=== PATIENT | male | born 1955 | race Caucasian/White ===

== ENCOUNTER 2017-05-19 13:23 | Outpatient (RCR) | payer OTHER, MEDICARE, SELFPAY ==
[2017-05-19 14:28] LABS: Prothrombin Time (Protime)PT. 30.3 SECONDS (11.7-14.9)
== END 2017-05-19 13:45 | disposition home or self-care (01) ==
LOC: LAB 13:23
PROVIDERS: Family Provider Family Medicine Geriatric Medicine; PCP Family Medicine Geriatric Medicine; Visit Provider Internal Medicine Cardiovascular Disease
DX: Z95.2 Presence of prosthetic heart valve (principal); Z79.899 Other long term (current) drug therapy
CPT/HCPCS: 36415; 85610

== ENCOUNTER 2017-06-22 10:56 | Outpatient (RCR) | payer OTHER, MEDICARE, SELFPAY ==
[2017-06-22 11:53] LABS: International Normalized Ratio 2.5; Prothrombin Time (Protime)PT. 26.2 SECONDS (11.7-14.9)
== END 2017-06-22 11:00 ==
LOC: LAB 10:56
PROVIDERS: Family Provider Family Medicine Geriatric Medicine; PCP Family Medicine Geriatric Medicine; Visit Provider Internal Medicine Cardiovascular Disease
DX: Z95.2 Presence of prosthetic heart valve (principal); Z79.899 Other long term (current) drug therapy
CPT/HCPCS: 36415; 85610

== ENCOUNTER → 2017-06-24 14:46 | Outpatient (CLI) | payer OTHER, MEDICARE, SELFPAY ==
--- NOTE | 2017-06-24 14:49 | RAD_ITS ---
STUDY: X-RAY - SACRUM/COCCYX REASON FOR EXAM: Male, 62 years old. Pain. TECHNIQUE: 3 view(s) of the sacrum and coccyx were obtained. COMPARISON: Lumbar spine, 07/22/2017. FINDINGS: Normal bilateral sacroiliac joints. Normal visualized sacral ala and fused sacral bodies. Normal sacrococcygeal junction with a normal angulation. Normal coccygeal segments. The presacral soft tissue structures are unremarkable. RAD/Sacrum-Coccyx min 2 Views IMPRESSION: Normal x-rays of the sacrum and coccyx. Electronically Signed: Brendan Miguel DO at 15:52 EST Tel [phone], Service support ,
--- NOTE | 2017-06-24 15:07 | RAD_ITS ---
STUDY: X-RAY - LUMBAR SPINE REASON FOR EXAM: Male, 62 years old. Pain. TECHNIQUE: 3 view(s) of the lumbar spine were obtained. COMPARISON: Lumbar spine, April 06, 2016. FINDINGS: There is stable reversal of lumbar lordosis. There is a stable dextroscoliosis with convexity at L1. There is a normal alignment of the vertebrae. There is multilevel endplate spondylosis of the lumbar vertebrae. There is multi-level degenerative disc disease with multi-level disc space narrowing. Again seen is a compression deformity superior endplate of L1 which is unchanged. There is no evidence of acute fracture or loss of vertebral axial height. There is atherosclerotic calcification of the abdominal aorta without a demonstrated aneurysm. RAD/Lumbar Spine 2 or 3 Views IMPRESSION: 1. Degenerative changes and scoliosis of the lumbar spine stable when compared to prior study. 2. Stable compression deformity of the superior endplate of L1. Electronically Signed: Brendan Miguel DO at 15:54 EST Tel [phone], Service support ,
== END ==
PROVIDERS: Family Provider Family Medicine Geriatric Medicine; PCP Family Medicine Geriatric Medicine; Visit Provider Family Medicine Geriatric Medicine
DX: M54.5 Low back pain (principal); M53.3 Sacrococcygeal disorders, not elsewhere classified
CPT/HCPCS: 72100; 72220

== ENCOUNTER → 2017-06-30 11:00 | Outpatient (CLI) | payer OTHER, MEDICARE, SELFPAY ==
--- NOTE | 2017-06-30 11:08 | RAD_ITS ---
STUDY: X-RAY CHEST REASON FOR EXAM: Male, 62 years old. Cough x5 days TECHNIQUE: PA and lateral views of the chest. COMPARISON: 05/25/2017 FINDINGS: There is hyperinflation of the lungs consistent with chronic obstructive lung disease (COPD). Lungs are clear. There is no demonstrated pleural abnormality. Left chest wall pacing device. Sternal cerclage wires are present from a prior sternotomy. Artificial heart valve. Normal mediastinum and sylvia. Normal visualized pulmonary arteries. Normal visualized aortic arch and descending thoracic aorta. Normal visualized thoracic spine. Normal visualized ribs, clavicles, and shoulders. There is no demonstrated abnormality of the visualized soft tissue structures of the upper abdomen. RAD/Chest PA and Lateral IMPRESSION: COPD without acute findings Electronically Signed: Charles Zepeda DO at 13:10 EST Tel , Service support ,
== END ==
PROVIDERS: Family Provider Family Medicine Geriatric Medicine; PCP Family Medicine Geriatric Medicine; Visit Provider Family Medicine Geriatric Medicine
DX: R69 Illness, unspecified (principal)
CPT/HCPCS: 71046; 87633

== ENCOUNTER → 2017-07-13 12:58 | Outpatient (CLI) | payer OTHER, MEDICARE, SELFPAY ==
[2017-07-13 14:59] LABS: Absolute Lymphocyte Count 1.29 X10^3/ul (0.83-4.51); Absolute Neutrophil Count 9.2 X10^3/uL (2.0-7.7); Basophil# 0.01 X10^3/uL; Basophil% 0.1 % (0-1); Differential Indicated SCAN CRITERIA MET; Eosinophil# 0.08 X10^3/uL; Eosinophils% 0.6 % (0-5); Hematocrit 41.1 % (40-54); Hemoglobin 13.4 g/dl (13.0-16.5); Lymphocyte # 1.29 X10^3/ul (4.0); Lymphocyte % 10.3 % (19-41); Mean Corp Hgb Conc 32.6 g/gl (32-36); Mean Corpuscular Hgb 32.9 pg (27.0-32.0); Mean Platelet Vol. 10.7 fl (6.2-12.0); Monocyte# 1.84 X10^3/uL; Monocyte% 14.7 % (0-10); Neutrophil % 73.6 % (47-70); POSITIVE COUNT NO; POSITIVE DIFFERENTIAL YES; POSITIVE MORPHOLOGY NO; Platelet Count 186 K/mm3 (150-450); RBC Distribution Width CV 16.4 % (11.6-14.6); RBC Distribution Width SD 60.8 fl (35.1-43.9); Red Blood Count 4.07 M/mm3 (4.6-6.2); White Blood Count 12.5 K/mm3 (4.4-11.0)
[2017-07-13 15:24] LABS: ALB/GLOB Ratio 0.8 RATIO (0.9-2.4); AST(SGOT) 27 U/L (15-37); Alanine Aminotransfer ALT/SGPT 46 U/L (16-61); Alkaline Phosphatase 65 U/L (45-117); Anion Gap 5 (5-15); BUN 16 mg/dL (7-18); BUN/Creat Ratio 18.9 RATIO (10-20); Calcium,Total 8.3 mg/dL (8.5-10.1); Chloride 107 mmol/L (98-107); Creatinine, Serum 0.85 mg/dL (0.70-1.30); EST Glomerular Filtration Rate 97 mL/min (>60); Est Glom Filt Rate - Afr Amer 118 mL/min (>60); Globulin 3.6 g/dL (2.2-4.2); Glucose 88 mg/dL (74-106); Potassium 4.5 mmol/L (3.5-5.1); Protein, Total 6.6 g/dL (6.4-8.2); Sodium Level 139 mmol/L (136-145); Thyroid Stim Hormone (TSH) 1.51 uIU/mL (0.358-3.74)
[2017-07-13 16:13] LABS: Anisocytosis 1+; Macrocytosis 1+; Platelet Estimate ADEQUATE (ADEQ)
[2017-07-15 15:03] LABS: Pathologist Review Reviewed
== END ==
PROVIDERS: Family Provider Family Medicine Geriatric Medicine; PCP Family Medicine Geriatric Medicine; Visit Provider Family Medicine Geriatric Medicine
DX: R53.83 Other fatigue (principal); F52.8 Other sexual dysfunction not due to a substance or known physiological condition
CPT/HCPCS: 36415; 80053; 84403; 84443; 85025

== ENCOUNTER → 2017-08-19 09:57 | Outpatient (CLI) | payer OTHER, MEDICARE, SELFPAY ==
[2017-08-19 11:37] LABS: International Normalized Ratio 1.2; Prothrombin Time (Protime)PT. 14.9 SECONDS (11.7-14.9)
== END ==
PROVIDERS: Family Provider Family Medicine Geriatric Medicine; PCP Family Medicine Geriatric Medicine; Visit Provider Internal Medicine Cardiovascular Disease
DX: I48.91 Unspecified atrial fibrillation (principal); Z79.01 Long term (current) use of anticoagulants
CPT/HCPCS: 36415; 85610

== ENCOUNTER → 2017-09-23 10:02 | Outpatient (CLI) | payer OTHER, MEDICARE, SELFPAY ==
[2017-09-23 13:02] LABS: International Normalized Ratio 1.9; Prothrombin Time (Protime)PT. 22.1 SECONDS (11.7-14.9)
== END ==
PROVIDERS: Family Provider Family Medicine Geriatric Medicine; PCP Family Medicine Geriatric Medicine; Visit Provider Internal Medicine Cardiovascular Disease
DX: I48.91 Unspecified atrial fibrillation (principal); Z79.01 Long term (current) use of anticoagulants
CPT/HCPCS: 36415; 85610

== ENCOUNTER → 2017-10-09 08:53 | Outpatient (CLI) | payer OTHER, MEDICARE, SELFPAY ==
[2017-10-09 11:42] LABS: Absolute Lymphocyte Count 1.39 X10^3/ul (0.83-4.51); Absolute Neutrophil Count 4.1 X10^3/uL (2.0-7.7); Basophil# 0.01 X10^3/uL; Basophil% 0.2 % (0-1); Eosinophil# 0.14 X10^3/uL; Eosinophils% 2.2 % (0-5); Hematocrit 45.6 % (40-54); Hemoglobin 14.9 g/dl (13.0-16.5); Lymphocyte # 1.39 X10^3/ul (4.0); Lymphocyte % 21.8 % (19-41); Mean Corp Hgb Conc 32.7 g/gl (32-36); Mean Corpuscular Volume 97.9 fL (80-94); Mean Platelet Vol. 10.6 fl (6.2-12.0); Monocyte# 0.73 X10^3/uL; Monocyte% 11.4 % (0-10); Neutrophil # 4.09 X10^3/uL (2.7-7.7); Neutrophil % 64.1 % (47-70); POSITIVE COUNT NO; POSITIVE DIFFERENTIAL NO; POSITIVE MORPHOLOGY NO; Platelet Count 148 K/mm3 (150-450); RBC Distribution Width CV 15.6 % (11.6-14.6); RBC Distribution Width SD 55.6 fl (35.1-43.9); Red Blood Count 4.66 M/mm3 (4.6-6.2); White Blood Count 6.4 K/mm3 (4.4-11.0)
[2017-10-09 12:05] LABS: ALB/GLOB Ratio 0.9 RATIO (0.9-2.4); AST(SGOT) 29 U/L (15-37); Alanine Aminotransfer ALT/SGPT 32 U/L (16-61); Albumin, Serum 3.3 g/dL (3.2-5.0); Alkaline Phosphatase 58 U/L (45-117); Anion Gap 5 (5-15); BUN 11 mg/dL (7-18); BUN/Creat Ratio 11.8 RATIO (10-20); Calcium,Total 8.5 mg/dL (8.5-10.1); Chloride 108 mmol/L (98-107); Creatinine, Serum 0.93 mg/dL (0.70-1.30); EST Glomerular Filtration Rate 87 mL/min (>60); Est Glom Filt Rate - Afr Amer 105 mL/min (>60); Globulin 3.5 g/dL (2.2-4.2); Glucose 83 mg/dL (74-106); Potassium 4.8 mmol/L (3.5-5.1); Protein, Total 6.8 g/dL (6.4-8.2); Sodium Level 141 mmol/L (136-145); Thyroid Stim Hormone (TSH) 0.86 uIU/mL (0.358-3.74)
== END ==
PROVIDERS: Family Provider Family Medicine Geriatric Medicine; PCP Family Medicine Geriatric Medicine; Visit Provider Family Medicine Geriatric Medicine
DX: R53.83 Other fatigue (principal); F52.8 Other sexual dysfunction not due to a substance or known physiological condition
CPT/HCPCS: 36415; 80053; 84403; 84443; 85025

== ENCOUNTER → 2017-10-15 09:35 | Outpatient (CLI) | payer OTHER, MEDICARE, SELFPAY ==
[2017-10-15 10:34] LABS: Amphetamine Urine VISTA NEGATIVE (<1000 ng/mL); Barbiturate Urine VISTA NEGATIVE (< 200 ng/mL); Benzodiazepine Urine VISTA NEGATIVE (< 200 ng/mL); Cocaine Urine VISTA NEGATIVE (< 300 ng/mL); Ecstacy Urine VISTA POSITIVE (< 500 ng/mL); Methadone Urine VISTA NEGATIVE (< 300 ng/mL); PCP Urine VISTA NEGATIVE (< 25 ng/mL); THC Urine VISTA NEGATIVE (< 50 ng/mL); Vista UDS pH Range 5
== END ==
PROVIDERS: Family Provider Family Medicine Geriatric Medicine; PCP Family Medicine Geriatric Medicine; Visit Provider Anesthesiology Pain Medicine
DX: F11.20 Opioid dependence, uncomplicated (principal)
CPT/HCPCS: 80307

== ENCOUNTER → 2018-01-21 09:05 | Outpatient (CLI) | payer OTHER, MEDICARE, SELFPAY ==
[2018-01-21 13:26] LABS: Absolute Lymphocyte Count 1.55 X10^3/ul (0.83-4.51); Basophil# 0.02 X10^3/uL; Basophil% 0.3 % (0-1); Eosinophil# 0.15 X10^3/uL; Hematocrit 41.7 % (40-54); Hemoglobin 14.1 g/dl (13.0-16.5); Lymphocyte # 1.55 X10^3/ul (4.0); Lymphocyte % 20.3 % (19-41); Mean Corp Hgb Conc 33.8 g/gl (32-36); Mean Corpuscular Hgb 31.6 pg (27.0-32.0); Mean Corpuscular Volume 93.5 fL (80-94); Mean Platelet Vol. 10.5 fl (6.2-12.0); Monocyte# 0.93 X10^3/uL; Monocyte% 12.2 % (0-10); Neutrophil # 4.96 X10^3/uL (2.7-7.7); Neutrophil % 64.7 % (47-70); Platelet Count 184 K/mm3 (150-450); RBC Distribution Width CV 13.4 % (11.6-14.6); RBC Distribution Width SD 44.3 fl (35.1-43.9); Red Blood Count 4.46 M/mm3 (4.6-6.2); White Blood Count 7.7 K/mm3 (4.4-11.0)
[2018-01-21 13:28] LABS: POSITIVE COUNT NO; POSITIVE DIFFERENTIAL NO; POSITIVE MORPHOLOGY NO
[2018-01-21 13:38] LABS: International Normalized Ratio 1.1; Prothrombin Time (Protime)PT. 14.2 SECONDS (11.7-14.9)
[2018-01-21 14:01] LABS: AST(SGOT) 25 U/L (15-37); Alanine Aminotransfer ALT/SGPT 35 U/L (16-61); Albumin, Serum 3.7 g/dL (3.2-5.0); Alkaline Phosphatase 69 U/L (45-117); Anion Gap 10 (5-15); BUN 18 mg/dL (7-18); Calcium,Total 8.9 mg/dL (8.5-10.1); Chloride 104 mmol/L (98-107); EST Glomerular Filtration Rate 80 mL/min (>60); Est Glom Filt Rate - Afr Amer 97 mL/min (>60); Globulin 3.7 g/dL (2.2-4.2); Glucose 84 mg/dL (74-106); Potassium 4.4 mmol/L (3.5-5.1); Protein, Total 7.4 g/dL (6.4-8.2); Sodium Level 139 mmol/L (136-145)
[2018-01-22 11:29] LABS: Hep C Antibodies 0.3 s/co ratio (0.0-0.9)
== END ==
PROVIDERS: Internal Medicine Cardiovascular Disease; Family Provider Family Medicine Geriatric Medicine; PCP Family Medicine Geriatric Medicine; Visit Provider Family Medicine Geriatric Medicine
DX: I48.0 Paroxysmal atrial fibrillation (principal); R53.83 Other fatigue; F52.8 Other sexual dysfunction not due to a substance or known physiological condition; Z12.5 Encounter for screening for malignant neoplasm of prostate; Z13.89 Encounter for screening for other disorder; Z79.01 Long term (current) use of anticoagulants
CPT/HCPCS: 36415; 80053; 84153; 84403; 84443; 85025; 85610; 86803; G0103

== ENCOUNTER → 2018-01-26 11:02 | Outpatient (CLI) | payer OTHER, MEDICARE, SELFPAY ==
[2018-01-26 12:31] LABS: International Normalized Ratio 1.2
== END ==
PROVIDERS: Family Provider Family Medicine Geriatric Medicine; PCP Family Medicine Geriatric Medicine; Visit Provider Internal Medicine Cardiovascular Disease
DX: I48.91 Unspecified atrial fibrillation (principal); Z79.01 Long term (current) use of anticoagulants
CPT/HCPCS: 36415; 85610

== ENCOUNTER → 2018-03-11 11:37 | Outpatient (CLI) | payer OTHER, MEDICARE, SELFPAY ==
[2018-03-11 14:00] LABS: International Normalized Ratio 1.5
== END ==
PROVIDERS: Family Provider Family Medicine Geriatric Medicine; PCP Family Medicine Geriatric Medicine; Visit Provider Internal Medicine Cardiovascular Disease
DX: I48.91 Unspecified atrial fibrillation (principal); Z79.01 Long term (current) use of anticoagulants
CPT/HCPCS: 36415; 85610

== ENCOUNTER → 2018-03-30 14:44 | Outpatient (CLI) | payer OTHER, MEDICARE, SELFPAY ==
[2018-03-30 15:54] LABS: International Normalized Ratio 2.7; Prothrombin Time (Protime)PT. 28.6 SECONDS (11.7-14.9)
[2018-04-05 12:07] LABS: Lyme IgG P18 Ab Absent (.); Lyme IgG P23 Ab Absent (.); Lyme IgG P28 Ab Absent (.); Lyme IgG P30 Ab Absent (.); Lyme IgG P39 Ab Absent (.); Lyme IgG P41 Ab Absent (.); Lyme IgG P45 Ab Absent (.); Lyme IgG P58 Ab Absent (.); Lyme IgG P66 Ab Absent (.); Lyme IgG P93 Ab Absent (.); Lyme IgM P23 Ab Absent (.); Lyme IgM P39 Ab Absent (.); Lyme IgM P41 Ab Absent (.)
[2018-04-05 13:48] LABS: Lyme IgG WB Interpretation Negative (.); Lyme IgM WB Interpretation Negative (.)
== END ==
PROVIDERS: Family Provider Family Medicine Geriatric Medicine; PCP Family Medicine Geriatric Medicine; Visit Provider Family Medicine Geriatric Medicine
DX: I48.91 Unspecified atrial fibrillation (principal); Z79.01 Long term (current) use of anticoagulants
CPT/HCPCS: 36415; 85610; 86617

== ENCOUNTER 2018-05-06 09:23 | Outpatient (RCR) | payer OTHER, MEDICARE, SELFPAY ==
[2018-03-11 09:07] VITALS: BMI 22.6
[2018-05-06 11:43] LABS: International Normalized Ratio 2.2; Prothrombin Time (Protime)PT. 24.5 SECONDS (11.7-14.9)
== END 2018-05-06 10:00 | disposition home or self-care (01) ==
LOC: LAB 09:23
PROVIDERS: Family Provider Family Medicine Geriatric Medicine; PCP Family Medicine Geriatric Medicine; Referring Provider Internal Medicine Cardiovascular Disease; Visit Provider Internal Medicine Cardiovascular Disease
DX: I48.91 Unspecified atrial fibrillation (principal); Z79.01 Long term (current) use of anticoagulants
CPT/HCPCS: 36415; 85610

== ENCOUNTER 2018-06-21 09:53 | Outpatient (RCR) | payer OTHER, MEDICARE, SELFPAY ==
[2018-03-11 09:07] VITALS: BMI 22.6
[2018-06-21 10:31] LABS: International Normalized Ratio 2.6; Prothrombin Time (Protime)PT. 27.7 SECONDS (11.7-14.9)
== END 2018-07-15 14:23 | disposition home or self-care (01) ==
LOC: LAB 09:53
PROVIDERS: Family Provider Family Medicine Geriatric Medicine; PCP Family Medicine Geriatric Medicine; Referring Provider Internal Medicine Cardiovascular Disease; Visit Provider Internal Medicine Cardiovascular Disease
DX: I48.91 Unspecified atrial fibrillation (principal); Z79.01 Long term (current) use of anticoagulants
CPT/HCPCS: 36415; 85610

== ENCOUNTER → 2018-07-14 10:37 | Outpatient (CLI) | payer OTHER, MEDICARE, SELFPAY ==
[2018-03-11 09:07] VITALS: BMI 22.6
[2018-07-14 13:11] LABS: Absolute Lymphocyte Count 1.54 X10^3/ul (0.83-4.51); Absolute Neutrophil Count 5.7 X10^3/uL (2.0-7.7); Basophil# 0.02 X10^3/uL; Basophil% 0.2 % (0-1); Eosinophil# 0.16 X10^3/uL; Hematocrit 46.1 % (40-54); Hemoglobin 15.7 g/dl (13.0-16.5); Lymphocyte # 1.54 X10^3/ul (4.0); Lymphocyte % 18.8 % (19-41); Mean Corp Hgb Conc 34.1 g/gl (32-36); Mean Corpuscular Hgb 30.3 pg (27.0-32.0); Mean Platelet Vol. 10.5 fl (6.2-12.0); Monocyte# 0.75 X10^3/uL; Monocyte% 9.1 % (0-10); Neutrophil # 5.68 X10^3/uL (2.7-7.7); Neutrophil % 69.3 % (47-70); POSITIVE COUNT NO; POSITIVE DIFFERENTIAL NO; POSITIVE MORPHOLOGY NO; Platelet Count 176 K/mm3 (150-450); RBC Distribution Width CV 14.9 % (11.6-14.6); RBC Distribution Width SD 49.3 fl (35.1-43.9); Red Blood Count 5.18 M/mm3 (4.6-6.2); White Blood Count 8.2 K/mm3 (4.4-11.0)
[2018-07-14 13:24] LABS: Anion Gap 8 (5-15); BUN 12 mg/dL (7-18); CRP 8.34 mg/L (0.0-3.0); Calcium,Total 8.8 mg/dL (8.5-10.1); Chloride 104 mmol/L (98-107); Creatinine, Serum 1.09 mg/dL (0.70-1.30); EST Glomerular Filtration Rate 73 mL/min (>60); Est Glom Filt Rate - Afr Amer 88 mL/min (>60); Glucose 94 mg/dL (74-106); Potassium 4.5 mmol/L (3.5-5.1); Sodium Level 140 mmol/L (136-145)
[2018-07-14 19:37] LABS: Erythrocyte Sedimentation Rate 8 mm/hr (0-20)
== END ==
PROVIDERS: Family Provider Family Medicine Geriatric Medicine; PCP Family Medicine Geriatric Medicine; Visit Provider Family Medicine Geriatric Medicine
DX: R60.9 Edema, unspecified (principal)
CPT/HCPCS: 36415; 80048; 85025; 85652; 86140

== ENCOUNTER → 2018-07-16 09:28 | Outpatient (CLI) | payer OTHER, MEDICARE, SELFPAY ==
[2018-07-16 12:58] LABS: M R Staph aureus DNA By PCR Negative (Negative); Probe Check PASS; Specimen Processing Control PASS; Staph aureus DNA By PCR NEGATIVE (Negative)
== END ==
PROVIDERS: Family Provider Family Medicine Geriatric Medicine; PCP Family Medicine Geriatric Medicine; Visit Provider Family Medicine Geriatric Medicine
DX: L03.119 Cellulitis of unspecified part of limb (principal); B95.62 Methicillin resistant Staphylococcus aureus infection as the cause of diseases classified elsewhere
CPT/HCPCS: 87070; 87205; 87640

== ENCOUNTER → 2018-07-22 09:33 | Outpatient (CLI) | payer OTHER, MEDICARE, SELFPAY ==
[2018-03-11 09:07] VITALS: BMI 22.6
[2018-07-22 10:45] LABS: Amphetamine Urine VISTA NEGATIVE (<1000 ng/mL); Barbiturate Urine VISTA NEGATIVE (< 200 ng/mL); Benzodiazepine Urine VISTA NEGATIVE (< 200 ng/mL); Cocaine Urine VISTA NEGATIVE (< 300 ng/mL); Ecstacy Urine VISTA POSITIVE (< 500 ng/mL); Methadone Urine VISTA NEGATIVE (< 300 ng/mL); PCP Urine VISTA NEGATIVE (< 25 ng/mL); THC Urine VISTA NEGATIVE (< 50 ng/mL); Vista UDS pH Range 5
== END ==
PROVIDERS: Family Provider Family Medicine Geriatric Medicine; PCP Family Medicine Geriatric Medicine; Referring Provider Anesthesiology Pain Medicine; Visit Provider Anesthesiology Pain Medicine
DX: F11.20 Opioid dependence, uncomplicated (principal)
CPT/HCPCS: 80307

== ENCOUNTER → 2018-07-30 08:34 | Outpatient (CLI) | payer OTHER, MEDICARE, SELFPAY ==
[2018-07-30 12:30] LABS: Absolute Neutrophil Count 4.6 X10^3/uL (2.0-7.7); Basophil# 0.01 X10^3/uL; Basophil% 0.1 % (0-1); Eosinophil# 0.18 X10^3/uL; Eosinophils% 2.3 % (0-5); Hematocrit 46.7 % (40-54); Hemoglobin 15.1 g/dl (13.0-16.5); Lymphocyte % 24.1 % (19-41); Mean Corp Hgb Conc 32.3 g/gl (32-36); Mean Corpuscular Hgb 28.5 pg (27.0-32.0); Mean Corpuscular Volume 88.3 fL (80-94); Mean Platelet Vol. 10.5 fl (6.2-12.0); Monocyte# 1.21 X10^3/uL; Monocyte% 15.3 % (0-10); Neutrophil # 4.55 X10^3/uL (2.7-7.7); Neutrophil % 57.6 % (47-70); Platelet Count 203 K/mm3 (150-450); RBC Distribution Width CV 15.2 % (11.6-14.6); RBC Distribution Width SD 48.4 fl (35.1-43.9); Red Blood Count 5.29 M/mm3 (4.6-6.2); White Blood Count 7.9 K/mm3 (4.4-11.0)
[2018-07-30 12:33] LABS: International Normalized Ratio 1.7; Prothrombin Time (Protime)PT. 19.8 SECONDS (11.7-14.9)
[2018-07-30 12:42] LABS: POSITIVE COUNT NO; POSITIVE DIFFERENTIAL NO; POSITIVE MORPHOLOGY NO
[2018-07-30 12:54] LABS: AST(SGOT) 30 U/L (15-37); Alanine Aminotransfer ALT/SGPT 39 U/L (16-61); Albumin, Serum 3.6 g/dL (3.2-5.0); Alkaline Phosphatase 57 U/L (45-117); Anion Gap 5 (5-15); BUN 12 mg/dL (7-18); BUN/Creat Ratio 10.3 RATIO (10-20); Calcium,Total 8.3 mg/dL (8.5-10.1); Chloride 104 mmol/L (98-107); Creatinine, Serum 1.16 mg/dL (0.70-1.30); EST Glomerular Filtration Rate 68 mL/min (>60); Est Glom Filt Rate - Afr Amer 82 mL/min (>60); Globulin 3.6 g/dL (2.2-4.2); Glucose 89 mg/dL (74-106); Potassium 3.9 mmol/L (3.5-5.1); Protein, Total 7.2 g/dL (6.4-8.2); Sodium Level 139 mmol/L (136-145); Thyroid Stim Hormone (TSH) 7.77 uIU/mL (0.358-3.74)
== END ==
PROVIDERS: Family Provider Family Medicine Geriatric Medicine; PCP Family Medicine Geriatric Medicine; Visit Provider Family Medicine Geriatric Medicine
DX: R53.83 Other fatigue (principal); F52.8 Other sexual dysfunction not due to a substance or known physiological condition; I48.91 Unspecified atrial fibrillation; Z79.01 Long term (current) use of anticoagulants
CPT/HCPCS: 36415; 80053; 84403; 84443; 85025; 85610

== ENCOUNTER 2018-08-06 08:51 | Outpatient (RCR) | payer OTHER, MEDICARE, SELFPAY ==
[2018-03-11 09:07] VITALS: BMI 22.6
[2018-08-06 09:43] LABS: International Normalized Ratio 2.7; Prothrombin Time (Protime)PT. 28.4 SECONDS (11.7-14.9)
== END 2018-08-06 09:51 | disposition home or self-care (01) ==
LOC: LAB 08:51
PROVIDERS: Family Provider Family Medicine Geriatric Medicine; PCP Family Medicine Geriatric Medicine; Referring Provider Internal Medicine Cardiovascular Disease; Visit Provider Internal Medicine Cardiovascular Disease
DX: I48.91 Unspecified atrial fibrillation (principal); Z79.01 Long term (current) use of anticoagulants
CPT/HCPCS: 36415; 85610

== ENCOUNTER 2018-08-31 07:58 | Emergency (ER) | payer OTHER, MEDICARE, SELFPAY ==
[2018-08-31 07:59] VITALS: BP 144/69; PULSE 70; RESP 18; TEMP 36.6; O2SAT 95; BMI 23.7
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
[2018-08-31] MEDS: Ondansetron 4 MG/2 ML Vial IV (08:39)
[2018-08-31] MEDS: 0.9% Normal Saline 1,000 ML 150 ML IV (08:40)
[2018-08-31] MEDS: HYDROmorphone 1 MG/ML Syringe IV (08:40)
[2018-08-31 08:49] LABS: Absolute Lymphocyte Count 1.93 X10^3/ul (0.83-4.51); Absolute Neutrophil Count 4.6 X10^3/uL (2.0-7.7); Basophil# 0.03 X10^3/uL; Basophil% 0.4 % (0-1); Eosinophil# 0.23 X10^3/uL; Hematocrit 46.4 % (40-54); Lymphocyte # 1.93 X10^3/ul (4.0); Lymphocyte % 25.3 % (19-41); Mean Corp Hgb Conc 34.5 g/gl (32-36); Mean Corpuscular Hgb 30.4 pg (27.0-32.0); Mean Platelet Vol. 9.6 fl (6.2-12.0); Monocyte# 0.81 X10^3/uL; Monocyte% 10.6 % (0-10); Neutrophil # 4.61 X10^3/uL (2.7-7.7); Neutrophil % 60.3 % (47-70); Platelet Count 149 K/mm3 (150-450); RBC Distribution Width CV 15.3 % (11.6-14.6); RBC Distribution Width SD 49.2 fl (35.1-43.9); Red Blood Count 5.27 M/mm3 (4.6-6.2); White Blood Count 7.6 K/mm3 (4.4-11.0)
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
[2018-08-31 08:57] LABS: International Normalized Ratio 3.4; Prothrombin Time (Protime)PT. 34.4 SECONDS (11.7-14.9)
[2018-08-31 09:00] LABS: POSITIVE COUNT NO; POSITIVE DIFFERENTIAL NO; POSITIVE MORPHOLOGY NO
[2018-08-31 09:03] LABS: Anion Gap 3 (5-15); BUN 13 mg/dL (7-18); BUN/Creat Ratio 11.7 RATIO (10-20); Calcium,Total 8.5 mg/dL (8.5-10.1); Chloride 108 mmol/L (98-107); Creatinine, Serum 1.11 mg/dL (0.70-1.30); EST Glomerular Filtration Rate 71 mL/min (>60); Est Glom Filt Rate - Afr Amer 86 mL/min (>60); Estimated Creatinine Clearance 72.55 ml/min; Glucose 90 mg/dL (74-106); Potassium 4.1 mmol/L (3.5-5.1); Sodium Level 139 mmol/L (136-145)
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
[2018-08-31 11:03] VITALS: BP 128/72; PULSE 66; RESP 20
== END 2018-08-31 11:04 | disposition home or self-care (01) ==
PROVIDERS: Emergency Provider Emergency Medicine; Family Provider Family Medicine Geriatric Medicine; PCP Family Medicine Geriatric Medicine
DX: S16.1XXA Strain of muscle, fascia and tendon at neck level, initial encounter (principal); S20.211A Contusion of right front wall of thorax, initial encounter; S43.401A Unspecified sprain of right shoulder joint, initial encounter; V43.62XA Car passenger injured in collision with other type car in traffic accident, initial encounter; Y93.9 Activity, unspecified; Y92.410 Unspecified street and highway as the place of occurrence of the external cause; Y99.9 Unspecified external cause status; I27.20 Pulmonary hypertension, unspecified; I48.91 Unspecified atrial fibrillation; E03.9 Hypothyroidism, unspecified; Z79.01 Long term (current) use of anticoagulants; Z72.0 Tobacco use; D68.9 Coagulation defect, unspecified
CPT/HCPCS: 70450; 71046; 72125; 73030; 74176; 80048; 85025; 85610; 96361; 96374; 96375; 99285; J7030; J2405

== ENCOUNTER → 2018-09-16 10:14 | Outpatient (CLI) | payer OTHER, MEDICARE, SELFPAY ==
[2018-09-08 08:44] VITALS: BMI 24.3
[2018-09-16 13:06] LABS: International Normalized Ratio 1.8; Prothrombin Time (Protime)PT. 20.3 SECONDS (11.7-14.9)
[2018-09-22 07:12] LABS: Lyme IgG P18 Ab Absent (.); Lyme IgG P23 Ab Absent (.); Lyme IgG P28 Ab Absent (.); Lyme IgG P30 Ab Absent (.); Lyme IgG P39 Ab Absent (.); Lyme IgG P41 Ab Absent (.); Lyme IgG P45 Ab Absent (.); Lyme IgG P58 Ab Absent (.); Lyme IgG P66 Ab Absent (.); Lyme IgG P93 Ab Absent (.); Lyme IgM P23 Ab Absent (.); Lyme IgM P39 Ab Absent (.); Lyme IgM P41 Ab Absent (.)
[2018-09-22 12:03] LABS: Lyme IgG WB Interpretation Negative (.); Lyme IgM WB Interpretation Negative (.)
== END ==
PROVIDERS: Family Provider Family Medicine Geriatric Medicine; PCP Family Medicine Geriatric Medicine; Visit Provider Family Medicine Geriatric Medicine
DX: I48.91 Unspecified atrial fibrillation (principal); Z79.01 Long term (current) use of anticoagulants; A69.20 Lyme disease, unspecified
CPT/HCPCS: 36415; 85610; 86617

== ENCOUNTER 2018-10-07 08:31 | Outpatient (RCR) | payer OTHER, MEDICARE, SELFPAY ==
[2018-03-11 09:07] VITALS: BMI 22.6
[2018-09-08 08:44] VITALS: BMI 24.3
[2018-09-23 10:21] LABS: International Normalized Ratio 2.8; Prothrombin Time (Protime)PT. 29.4 SECONDS (11.7-14.9)
[2018-10-07 10:21] LABS: Prothrombin Time (Protime)PT. 40.2 SECONDS (11.7-14.9)
[2018-10-07 10:24] LABS: International Normalized Ratio 4.1
== END 2018-10-15 14:00 | disposition home or self-care (01) ==
LOC: LAB 08:31
PROVIDERS: Family Provider Family Medicine Geriatric Medicine; PCP Family Medicine Geriatric Medicine; Referring Provider Internal Medicine Cardiovascular Disease; Visit Provider Internal Medicine Cardiovascular Disease
DX: I48.91 Unspecified atrial fibrillation (principal); Z79.01 Long term (current) use of anticoagulants
CPT/HCPCS: 36415; 85610

== ENCOUNTER → 2018-10-14 10:58 | Outpatient (CLI) | payer OTHER, MEDICARE, SELFPAY ==
[2018-09-08 08:44] VITALS: BMI 24.3
[2018-10-14 12:37] LABS: International Normalized Ratio 2.6; Prothrombin Time (Protime)PT. 28.3 SECONDS (11.7-14.9)
== END ==
PROVIDERS: Family Provider Family Medicine Geriatric Medicine; PCP Family Medicine Geriatric Medicine; Visit Provider Internal Medicine Cardiovascular Disease
DX: I48.91 Unspecified atrial fibrillation (principal); Z79.01 Long term (current) use of anticoagulants
CPT/HCPCS: 36415; 85610

== ENCOUNTER 2018-11-10 08:30 | Outpatient (RCR) | payer OTHER, MEDICARE, SELFPAY ==
[2018-09-08 08:44] VITALS: BMI 24.3
[2018-11-10 09:29] LABS: International Normalized Ratio 3.3; Prothrombin Time (Protime)PT. 33.5 SECONDS (11.7-14.9)
== END 2018-11-10 09:00 | disposition home or self-care (01) ==
LOC: LAB 08:30
PROVIDERS: Family Provider Family Medicine Geriatric Medicine; PCP Family Medicine Geriatric Medicine; Referring Provider Internal Medicine Cardiovascular Disease; Visit Provider Internal Medicine Cardiovascular Disease
DX: I48.91 Unspecified atrial fibrillation (principal); Z79.01 Long term (current) use of anticoagulants
CPT/HCPCS: 36415; 85610

== ENCOUNTER → 2018-11-23 09:44 | Outpatient (CLI) | payer OTHER, MEDICARE, SELFPAY ==
[2018-09-08 08:44] VITALS: BMI 24.3
== END ==
PROVIDERS: Family Provider Family Medicine Geriatric Medicine; PCP Family Medicine Geriatric Medicine; Referring Provider Family Medicine Geriatric Medicine; Visit Provider Family Medicine Geriatric Medicine
DX: R50.9 Fever, unspecified (principal)
CPT/HCPCS: 87633

== ENCOUNTER 2018-11-25 06:30 | Outpatient (RCR) | payer OTHER, MEDICARE, SELFPAY ==
[2018-09-08 08:44] VITALS: BMI 24.3
[2018-11-25 07:17] LABS: Prothrombin Time (Protime)PT. 22.9 SECONDS (11.7-14.9)
== END 2018-12-15 06:16 | disposition home or self-care (01) ==
LOC: LAB 06:30
PROVIDERS: Family Provider Family Medicine Geriatric Medicine; PCP Family Medicine Geriatric Medicine; Referring Provider Internal Medicine Cardiovascular Disease; Visit Provider Internal Medicine Cardiovascular Disease
DX: I48.91 Unspecified atrial fibrillation (principal); Z79.01 Long term (current) use of anticoagulants
CPT/HCPCS: 36415; 85610

== ENCOUNTER → 2018-11-29 12:23 | Outpatient (CLI) | payer OTHER, MEDICARE, SELFPAY ==
[2018-09-08 08:44] VITALS: BMI 24.3
--- NOTE | 2018-11-29 12:25 | RAD_ITS ---
STUDY: X-RAY CHEST REASON FOR EXAM: Male, 63 years old. One-week history of chest congestion. TECHNIQUE: PA and lateral views of the chest. COMPARISON: Comparison is made with prior study dated August 31, 2018. FINDINGS: Hyperinflation. Stable mild scarring at the lung bases. There is no demonstrated pleural abnormality. Sternal cerclage wires are present from a prior sternotomy. The patient is status post mitral valve and aortic valve replacements. A left-sided dual-chamber pacemaker is seen. Normal mediastinum and sylvia. There is prominence of the pulmonary hilar arteries without peripheral pulmonary vascular congestion, suggesting pulmonary hypertension. There is atherosclerotic calcification of the aortic arch with tortuosity. Normal visualized thoracic spine. Normal visualized ribs, clavicles, and shoulders. There is no demonstrated abnormality of the visualized soft tissue structures of the upper abdomen. RAD/Chest PA and Lateral IMPRESSION: Hyperinflation. No acute abnormality is seen. Electronically Signed: Damien Medellin, at 8:08 EDT , Service support ,
== END ==
PROVIDERS: Family Provider Family Medicine Geriatric Medicine; PCP Family Medicine Geriatric Medicine; Referring Provider Family Medicine Geriatric Medicine; Visit Provider Family Medicine Geriatric Medicine
DX: R09.89 Other specified symptoms and signs involving the circulatory and respiratory systems (principal)
CPT/HCPCS: 71046

== ENCOUNTER → 2018-12-20 09:26 | Outpatient (CLI) | payer OTHER, MEDICARE, SELFPAY ==
[2018-09-08 08:44] VITALS: BMI 24.3
[2018-12-20 12:12] LABS: International Normalized Ratio 1.1; Prothrombin Time (Protime)PT. 13.7 SECONDS (11.7-14.9)
== END ==
PROVIDERS: Family Provider Family Medicine Geriatric Medicine; PCP Family Medicine Geriatric Medicine; Referring Provider Internal Medicine Cardiovascular Disease; Visit Provider Internal Medicine Cardiovascular Disease
DX: I48.91 Unspecified atrial fibrillation (principal); Z79.01 Long term (current) use of anticoagulants
CPT/HCPCS: 36415; 85610

== ENCOUNTER 2019-01-12 10:11 | Outpatient (RCR) | payer OTHER, MEDICARE, SELFPAY ==
[2018-09-08 08:44] VITALS: BMI 24.3
[2018-12-16 10:59] LABS: International Normalized Ratio 5.1; Prothrombin Time (Protime)PT. 47.5 SECONDS (11.7-14.9)
[2018-12-28 08:57] LABS: International Normalized Ratio 2.1; Prothrombin Time (Protime)PT. 23.4 SECONDS (11.7-14.9)
[2019-01-12 11:15] LABS: International Normalized Ratio 2.2
== END 2019-01-12 12:00 | disposition home or self-care (01) ==
LOC: LAB 10:11
PROVIDERS: Family Provider Family Medicine Geriatric Medicine; PCP Family Medicine Geriatric Medicine; Referring Provider Internal Medicine Cardiovascular Disease; Visit Provider Internal Medicine Cardiovascular Disease
DX: I48.91 Unspecified atrial fibrillation (principal); Z79.01 Long term (current) use of anticoagulants
CPT/HCPCS: 36415; 85610

== ENCOUNTER → 2019-02-03 08:43 | Outpatient (CLI) | payer OTHER, MEDICARE, SELFPAY ==
[2018-09-08 08:44] VITALS: BMI 24.3
[2019-02-03 11:19] LABS: Absolute Neutrophil Count 5.7 X10^3/uL (2.0-7.7); Basophil# 0.06 X10^3/uL; Basophil% 0.7 % (0-1); Eosinophil# 0.16 X10^3/uL; Eosinophils% 1.9 % (0-5); Hematocrit 47.7 % (40-54); Hemoglobin 16.2 g/dL (13.0-16.5); Lymphocyte % 21.2 % (19-41); Mean Corpuscular Hgb 32.4 pg (27.0-32.0); Mean Corpuscular Volume 95.4 fL (80-94); Mean Platelet Vol. 10.2 fl (6.2-12.0); Monocyte# 0.71 X10^3/uL; Monocyte% 8.4 % (0-10); NRBC Flagged by Analyzer 0 % (0-5); Neutrophil # 5.69 X10^3/uL (2.7-7.7); Neutrophil % 66.9 % (47-70); Platelet Count 163 K/mm3 (150-450); RBC Distribution Width CV 14.6 % (11.6-14.6); RBC Distribution Width SD 51.2 fl (35.1-43.9); White Blood Count 8.5 K/mm3 (4.4-11.0)
[2019-02-03 11:28] LABS: International Normalized Ratio 2.2; Prothrombin Time (Protime)PT. 24.5 SECONDS (11.7-14.9)
[2019-02-03 11:39] LABS: ALB/GLOB Ratio 0.9 RATIO (0.9-2.4); AST(SGOT) 26 U/L (15-37); Alanine Aminotransfer ALT/SGPT 34 U/L (16-61); Albumin, Serum 3.6 g/dL (3.2-5.0); Alkaline Phosphatase 56 U/L (45-117); BUN 14 mg/dL (7-18); BUN/Creat Ratio 13.6 RATIO (10-20); Calcium,Total 8.9 mg/dL (8.5-10.1); Chloride 103 mmol/L (98-107); Creatinine, Serum 1.03 mg/dL (0.70-1.30); EST Glomerular Filtration Rate 77 mL/min (>60); Est Glom Filt Rate - Afr Amer 94 mL/min (>60); Globulin 3.8 g/dL (2.2-4.2); Glucose 91 mg/dL (74-106); Potassium 3.7 mmol/L (3.5-5.1); Protein, Total 7.4 g/dL (6.4-8.2); Sodium Level 139 mmol/L (136-145)
[2019-02-03 11:40] LABS: Anion Gap 5 (5-15); PSA,Total - Annual Screen 0.37 ng/mL (0.00-4.00); Thyroid Stim Hormone (TSH) 3.51 uIU/mL (0.358-3.74)
[2019-02-04 10:30] LABS: Vitamin D,25 Hydroxy 54.7 ng/mL (29.95-100.01)
== END ==
PROVIDERS: Family Provider Family Medicine Geriatric Medicine; PCP Family Medicine Geriatric Medicine; Visit Provider Family Medicine Geriatric Medicine
DX: R53.83 Other fatigue (principal); E55.9 Vitamin D deficiency, unspecified; F52.8 Other sexual dysfunction not due to a substance or known physiological condition; Z12.5 Encounter for screening for malignant neoplasm of prostate
CPT/HCPCS: 36415; 80053; 82306; 84153; 84403; 84443; 85025; 85610; G0103

== ENCOUNTER 2019-04-11 08:45 | Outpatient (RCR) | payer OTHER, MEDICARE, SELFPAY ==
[2018-09-08 08:44] VITALS: BMI 24.3
[2019-03-21 09:29] LABS: International Normalized Ratio 1.4; Prothrombin Time (Protime)PT. 16.9 SECONDS (11.7-14.9)
[2019-03-31 09:07] LABS: International Normalized Ratio 1.8; Prothrombin Time (Protime)PT. 21.2 SECONDS (11.7-14.9)
[2019-04-11 09:13] LABS: International Normalized Ratio 3.1; Prothrombin Time (Protime)PT. 31.8 SECONDS (11.7-14.9)
== END 2019-04-11 18:00 | disposition home or self-care (01) ==
LOC: LAB 08:45
PROVIDERS: Family Provider Family Medicine Geriatric Medicine; PCP Family Medicine Geriatric Medicine; Referring Provider Internal Medicine Cardiovascular Disease; Visit Provider Internal Medicine Cardiovascular Disease
DX: I48.91 Unspecified atrial fibrillation (principal); Z79.01 Long term (current) use of anticoagulants
CPT/HCPCS: 36415; 85610

== ENCOUNTER 2019-05-13 07:50 | Outpatient (RCR) | payer OTHER, MEDICARE, SELFPAY ==
[2018-09-08 08:44] VITALS: BMI 24.3
[2019-04-18 08:31] VITALS: BMI 23.0
[2019-04-29 10:42] LABS: Prothrombin Time (Protime)PT. 35.5 SECONDS (11.7-14.9)
[2019-04-29 10:52] LABS: International Normalized Ratio 3.5
[2019-05-13 09:11] LABS: International Normalized Ratio 2.1; Prothrombin Time (Protime)PT. 23.6 SECONDS (11.7-14.9)
== END 2019-05-13 18:00 | disposition home or self-care (01) ==
LOC: LAB 07:50
PROVIDERS: Family Provider Family Medicine Geriatric Medicine; PCP Family Medicine Geriatric Medicine; Referring Provider Internal Medicine Cardiovascular Disease; Visit Provider Internal Medicine Cardiovascular Disease
DX: I48.91 Unspecified atrial fibrillation (principal); Z79.01 Long term (current) use of anticoagulants
CPT/HCPCS: 36415; 85610

== ENCOUNTER 2019-06-03 08:20 | Outpatient (RCR) | payer OTHER, MEDICARE, SELFPAY ==
[2019-04-18 08:31] VITALS: BMI 23.0
[2019-06-03 08:58] LABS: International Normalized Ratio 2.8; Prothrombin Time (Protime)PT. 29.9 SECONDS (11.7-14.9)
== END 2019-06-03 18:00 | disposition home or self-care (01) ==
LOC: LAB 08:20
PROVIDERS: Family Provider Family Medicine Geriatric Medicine; PCP Family Medicine Geriatric Medicine; Referring Provider Internal Medicine Cardiovascular Disease; Visit Provider Internal Medicine Cardiovascular Disease
DX: I48.91 Unspecified atrial fibrillation (principal); Z79.01 Long term (current) use of anticoagulants
CPT/HCPCS: 36415; 85610

== ENCOUNTER 2019-07-11 07:14 | Outpatient (RCR) | payer OTHER, MEDICARE, SELFPAY ==
[2019-04-18 08:31] VITALS: BMI 23.0
[2019-07-08 08:41] LABS: Prothrombin Time (Protime)PT. 93.6 SECONDS (11.7-14.9)
[2019-07-08 08:52] LABS: International Normalized Ratio 11.8
[2019-07-11 08:41] LABS: Prothrombin Time (Protime)PT. 22.6 SECONDS (11.7-14.9)
== END 2019-07-11 18:00 | disposition home or self-care (01) ==
LOC: LAB 07:14
PROVIDERS: Family Provider Family Medicine Geriatric Medicine; PCP Family Medicine Geriatric Medicine; Referring Provider Internal Medicine Cardiovascular Disease; Visit Provider Internal Medicine Cardiovascular Disease
DX: I48.91 Unspecified atrial fibrillation (principal); Z79.01 Long term (current) use of anticoagulants
CPT/HCPCS: 36415; 85610

== ENCOUNTER 2019-07-18 09:33 | Outpatient (RCR) | payer OTHER, MEDICARE, SELFPAY ==
[2019-04-18 08:31] VITALS: BMI 23.0
[2019-07-18 10:45] LABS: International Normalized Ratio 1.8; Prothrombin Time (Protime)PT. 20.7 SECONDS (11.7-14.9)
[2019-07-18 10:52] LABS: Amphetamine Urine VISTA NEGATIVE (<1000 ng/mL); Barbiturate Urine VISTA NEGATIVE (< 200 ng/mL); Benzodiazepine Urine VISTA NEGATIVE (< 200 ng/mL); Cocaine Urine VISTA NEGATIVE (< 300 ng/mL); Ecstacy Urine VISTA POSITIVE (< 500 ng/mL); Methadone Urine VISTA NEGATIVE (< 300 ng/mL); PCP Urine VISTA NEGATIVE (< 25 ng/mL); THC Urine VISTA NEGATIVE (< 50 ng/mL); Vista UDS pH Range 6
== END 2019-07-18 18:00 | disposition home or self-care (01) ==
LOC: LAB 09:33
PROVIDERS: Family Provider Family Medicine Geriatric Medicine; PCP Family Medicine Geriatric Medicine; Referring Provider Internal Medicine Cardiovascular Disease; Visit Provider Internal Medicine Cardiovascular Disease
DX: F11.20 Opioid dependence, uncomplicated (principal); I48.91 Unspecified atrial fibrillation; Z79.01 Long term (current) use of anticoagulants
CPT/HCPCS: 36415; 80307; 85610

== ENCOUNTER → 2019-08-05 | Outpatient (CLI) | payer OTHER, MEDICARE, SELFPAY ==
[2019-04-18 08:31] VITALS: BMI 23.0
[2019-08-05 10:22] LABS: Absolute Lymphocyte Count 1.89 X10^3/uL (0.83-4.51); Absolute Neutrophil Count 4.2 X10^3/uL (2.0-7.7); Basophil# 0.02 X10^3/uL; Basophil% 0.3 % (0-1); Eosinophil# 0.21 X10^3/uL; Hematocrit 39.6 % (40-54); Hemoglobin 13.3 g/dL (13.0-16.5); Lymphocyte # 1.89 X10^3/ul (4.0); Lymphocyte % 26.8 % (19-41); Mean Corp Hgb Conc 33.6 g/dL (32-36); Mean Corpuscular Hgb 30.4 pg (27.0-32.0); Mean Corpuscular Volume 90.6 fL (80-94); Mean Platelet Vol. 10.5 fl (6.2-12.0); Monocyte# 0.68 X10^3/uL; Monocyte% 9.6 % (0-10); NRBC Flagged by Analyzer 0 % (0-5); Neutrophil # 4.21 X10^3/uL (2.7-7.7); Neutrophil % 59.7 % (47-70); Platelet Count 165 K/mm3 (150-450); RBC Distribution Width CV 13.6 % (11.6-14.6); RBC Distribution Width SD 45.2 fl (35.1-43.9); Red Blood Count 4.37 M/mm3 (4.6-6.2); White Blood Count 7.1 K/mm3 (4.4-11.0)
[2019-08-05 10:32] LABS: International Normalized Ratio 3.2; Prothrombin Time (Protime)PT. 32.9 SECONDS (11.7-14.9)
[2019-08-05 10:48] LABS: AST(SGOT) 35 U/L (15-37); Alanine Aminotransfer ALT/SGPT 42 U/L (16-61); Albumin, Serum 3.6 g/dL (3.2-5.0); Alkaline Phosphatase 74 U/L (45-117); Anion Gap 2 (5-15); BUN 14 mg/dL (7-18); BUN/Creat Ratio 13.6 RATIO (10-20); Chloride 110 mmol/L (98-107); Creatinine, Serum 1.03 mg/dL (0.70-1.30); EST Glomerular Filtration Rate 77 mL/min (>60); Est Glom Filt Rate - Afr Amer 94 mL/min (>60); Globulin 3.5 g/dL (2.2-4.2); Glucose 94 mg/dL (74-106); Potassium 4.2 mmol/L (3.5-5.1); Protein, Total 7.1 g/dL (6.4-8.2); Sodium Level 141 mmol/L (136-145); Thyroid Stim Hormone (TSH) 1.26 uIU/mL (0.358-3.74)
[2019-08-05 11:09] LABS: Vitamin D,25 Hydroxy 54.4 ng/mL
== END | disposition home or self-care (01) ==
LOC: POLAB3 09:49
PROVIDERS: PCP Family Medicine Geriatric Medicine; Visit Provider Family Medicine Geriatric Medicine
DX: E55.9 Vitamin D deficiency, unspecified (principal); F52.8 Other sexual dysfunction not due to a substance or known physiological condition; R53.83 Other fatigue; I48.91 Unspecified atrial fibrillation; Z79.01 Long term (current) use of anticoagulants
CPT/HCPCS: 36415; 80053; 82306; 84403; 84443; 85025; 85610

== ENCOUNTER 2019-08-19 07:59 | Outpatient (RCR) | payer OTHER, MEDICARE, SELFPAY ==
[2019-04-18 08:31] VITALS: BMI 23.0
[2019-08-19 08:53] LABS: Prothrombin Time (Protime)PT. 31.6 SECONDS (11.7-14.9)
== END 2019-09-15 18:00 | disposition home or self-care (01) ==
LOC: LAB 07:59
PROVIDERS: Family Provider Family Medicine Geriatric Medicine; PCP Family Medicine Geriatric Medicine; Referring Provider Internal Medicine Cardiovascular Disease; Visit Provider Internal Medicine Cardiovascular Disease
DX: I48.91 Unspecified atrial fibrillation (principal); Z79.01 Long term (current) use of anticoagulants
CPT/HCPCS: 36415; 85610

== ENCOUNTER 2019-09-20 08:11 | Outpatient (RCR) | payer OTHER, MEDICARE, SELFPAY ==
[2019-04-18 08:31] VITALS: BMI 23.0
[2019-09-20 09:09] LABS: Prothrombin Time (Protime)PT. 22.1 SECONDS (11.7-14.9)
== END 2019-09-20 18:00 | disposition home or self-care (01) ==
LOC: LAB 08:11
PROVIDERS: Family Provider Family Medicine Geriatric Medicine; PCP Family Medicine Geriatric Medicine; Referring Provider Internal Medicine Cardiovascular Disease; Visit Provider Internal Medicine Cardiovascular Disease
DX: I48.91 Unspecified atrial fibrillation (principal); Z79.01 Long term (current) use of anticoagulants
CPT/HCPCS: 36415; 85610

== ENCOUNTER → 2019-10-12 08:43 | Outpatient (CLI) | payer OTHER, MEDICARE, SELFPAY ==
[2019-04-18 08:31] VITALS: BMI 23.0
--- NOTE | 2019-10-12 08:53 | ECHOD_ITS ---
Version 2 Reason For Study: VALVE REPLACEMENT EVAL Procedure This was a 2D Doppler, Color Flow transthoracic echocardiogram. The exam was of adequate technical quality. Exam performed in department. Left Ventricle Normal LV size. Mild concentric left ventricular hypertrophy. Left ventricular systolic function is normal. The estimated ejection fraction is 55 %. Unable to assess diastolic dysfunction. No regional wall motion abnormalities noted. Right Ventricle Normal RV size. ICD or pacer leads identified within the right ventricle. Normal systolic function. Atria The left atrium is mildly enlarged. Normal right atrium. ICD or pacer leads identified within the right atrium. No doppler evidence for ASD. Mitral Valve Stable appearing bioprosthetic mitral valve apparatus. MIld (1+) transvalvular insufficiency of the mitral valve. Tricuspid Valve Right ventricular systolic pressure estimated to be 33 mmHg. An annuloplasty ring is noted in the tricuspid position. Mild transvalvular insufficiency of the tricuspid valve. Aortic Valve Trisinus/trileaflet aortic valve. Normal aortic valve. Pulmonic Valve The pulmonic valve is not well visualized. Great Vessels Normal sized aortic root. Pericardium/Pleural No pericardial effusion. MMode/2D Measurements & Calculations LVIDd: 5.0 cm IVSd: 1.3 cm Ao root diam: 3.4 cm LVIDs: 3.6 cm LVPWd: 1.3 cm FS: 27.7 % LAV(MOD-bp): 52.3 ml LA A4 area: 15.4 cm2 LA dimension(2D): 4.5 cm LAV(MOD-bp) Indexed: 26.9 ml/m2 LAV(MOD-sp2): 52.4 ml LAV(MOD-sp4): 52.6 ml RA A4 area: 12.3 cm2 Time Measurements MV dec time: 0.21 sec Doppler Measurements & Calculations MV E max kenya: 195.6 cm/sec MV V2 max: 189.4 cm/sec MV P1/2t max kenya: 187.3 cm/sec MV A max kenya: 89.8 cm/sec MV max P.4 mmHg MV P1/2t: 62.8 msec MV E/A: 2.2 MV V2 mean: 101.5 cm/sec MV dec slope: 874.3 cm/sec2 MV mean P.7 mmHg MV V2 VTI: 43.9 cm MVA(P1/2t): 3.5 cm2 Ao V2 max: 105.7 cm/sec LV V1 max: 68.1 cm/sec PA V2 max: 74.9 cm/sec Ao max P.5 mmHg LV V1 max P.9 mmHg TR max kenya: 274.8 cm/sec MV P1/2t-pr_phl: 63.5 msec TR max P.2 mmHg Interpretation Summary Left ventricular systolic function is normal. The estimated ejection fraction is 55 %. Mild concentric left ventricular hypertrophy. The left atrium is mildly enlarged. Stable appearing bioprosthetic mitral valve apparatus. MIld (1+) transvalvular insufficiency of the mitral valve. An annuloplasty ring is noted in the tricuspid position. Mild transvalvular insufficiency of the tricuspid valve. Right ventricular systolic pressure estimated to be 33 mmHg. Unable to assess diastolic dysfunction. ICD or pacer leads identified within the right atrium ICD or pacer leads identified within the right ventricle. Ordering Physician: Ben Dietz Referring Physician: Fracisco Carvalho Chi Performed By: Tessie Melendez, LISSETTE, RVT
== END ==
PROVIDERS: PCP Family Medicine Geriatric Medicine; Referring Provider Internal Medicine Cardiovascular Disease; Visit Provider Internal Medicine Cardiovascular Disease
DX: I34.0 Nonrheumatic mitral (valve) insufficiency (principal); Z95.3 Presence of xenogenic heart valve; Z98.890 Other specified postprocedural states
CPT/HCPCS: 93306

== ENCOUNTER 2019-10-18 08:08 | Outpatient (RCR) | payer OTHER, MEDICARE, SELFPAY ==
[2019-04-18 08:31] VITALS: BMI 23.0
[2019-10-18 09:22] LABS: International Normalized Ratio 2.3; Prothrombin Time (Protime)PT. 24.5 SECONDS (11.7-14.9)
== END 2019-10-18 18:00 | disposition home or self-care (01) ==
LOC: LAB 08:08
PROVIDERS: Family Provider Family Medicine Geriatric Medicine; PCP Family Medicine Geriatric Medicine; Referring Provider Internal Medicine Cardiovascular Disease; Visit Provider Internal Medicine Cardiovascular Disease
DX: I48.91 Unspecified atrial fibrillation (principal); Z79.01 Long term (current) use of anticoagulants
CPT/HCPCS: 36415; 85610

== ENCOUNTER 2019-11-16 07:46 | Outpatient (RCR) | payer OTHER, MEDICARE, SELFPAY ==
[2019-10-18 08:23] VITALS: BMI 22.7
[2019-11-16 08:30] LABS: International Normalized Ratio 2.1; Prothrombin Time (Protime)PT. 22.8 SECONDS (11.7-14.9)
== END 2019-11-16 18:00 ==
LOC: LAB 07:46
PROVIDERS: Family Provider Family Medicine Geriatric Medicine; PCP Family Medicine Geriatric Medicine; Referring Provider Internal Medicine Cardiovascular Disease; Visit Provider Internal Medicine Cardiovascular Disease
DX: I48.91 Unspecified atrial fibrillation (principal); Z79.01 Long term (current) use of anticoagulants
CPT/HCPCS: 36415; 85610

== ENCOUNTER 2020-01-10 07:41 | Outpatient (RCR) | payer OTHER, MEDICARE, SELFPAY ==
[2019-10-18 08:23] VITALS: BMI 22.7
[2020-01-10 08:23] LABS: International Normalized Ratio 3.4; Prothrombin Time (Protime)PT. 33.7 SECONDS (11.7-14.9)
== END 2020-01-16 18:00 | disposition home or self-care (01) ==
LOC: LAB 07:41
PROVIDERS: Family Provider Family Medicine Geriatric Medicine; PCP Family Medicine Geriatric Medicine; Referring Provider Internal Medicine Cardiovascular Disease; Visit Provider Internal Medicine Cardiovascular Disease
DX: I48.0 Paroxysmal atrial fibrillation (principal); Z79.01 Long term (current) use of anticoagulants
CPT/HCPCS: 36415; 85610

== ENCOUNTER 2020-02-02 10:31 | Outpatient (RCR) | payer OTHER, MEDICARE, SELFPAY ==
[2019-10-18 08:23] VITALS: BMI 22.7
[2020-01-17 10:53] LABS: International Normalized Ratio 2.5; Prothrombin Time (Protime)PT. 26.6 SECONDS (11.7-14.9)
[2020-02-02 11:32] LABS: International Normalized Ratio 2.4; Prothrombin Time (Protime)PT. 25.3 SECONDS (11.7-14.9)
== END 2020-02-02 18:00 | disposition home or self-care (01) ==
LOC: LAB 10:31
PROVIDERS: Family Provider Family Medicine Geriatric Medicine; PCP Family Medicine Geriatric Medicine; Referring Provider Internal Medicine Cardiovascular Disease; Visit Provider Internal Medicine Cardiovascular Disease
DX: I48.0 Paroxysmal atrial fibrillation (principal); Z79.01 Long term (current) use of anticoagulants
CPT/HCPCS: 36415; 85610

== ENCOUNTER → 2020-02-09 | Outpatient (CLI) | payer OTHER, MEDICARE, SELFPAY ==
[2019-10-18 08:23] VITALS: BMI 22.7
[2020-02-09 12:48] LABS: Absolute Lymphocyte Count 1.47 X10^3/uL (0.83-4.51); Absolute Neutrophil Count 4.5 X10^3/uL (2.0-7.7); Basophil# 0.02 X10^3/uL; Basophil% 0.3 % (0-1); Eosinophil# 0.17 X10^3/uL; Eosinophils% 2.5 % (0-5); Hematocrit 37.4 % (40-54); Hemoglobin 12.2 g/dL (13.0-16.5); Lymphocyte # 1.47 X10^3/ul (4.0); Lymphocyte % 21.3 % (19-41); Mean Corp Hgb Conc 32.6 g/dL (32-36); Mean Corpuscular Volume 95.2 fL (80-94); Mean Platelet Vol. 10.7 fl (6.2-12.0); Monocyte# 0.72 X10^3/uL; Monocyte% 10.4 % (0-10); NRBC Flagged by Analyzer 0 % (0-5); Neutrophil # 4.49 X10^3/uL (2.7-7.7); Neutrophil % 65.1 % (47-70); Platelet Count 160 K/mm3 (150-450); RBC Distribution Width CV 14.6 % (11.6-14.6); RBC Distribution Width SD 51.4 fl (35.1-43.9); Red Blood Count 3.93 M/mm3 (4.6-6.2); White Blood Count 6.9 K/mm3 (4.4-11.0)
[2020-02-09 13:03] LABS: Vitamin D,25 Hydroxy 86.4 ng/mL
[2020-02-09 13:14] LABS: ALB/GLOB Ratio 0.9 RATIO (0.9-2.4); AST(SGOT) 34 U/L (15-37); Alanine Aminotransfer ALT/SGPT 32 U/L (16-61); Albumin, Serum 3.5 g/dL (3.2-5.0); Alkaline Phosphatase 73 U/L (45-117); Anion Gap 6 (5-15); BUN 14 mg/dL (7-18); BUN/Creat Ratio 14.6 RATIO (10-20); Calcium,Total 8.7 mg/dL (8.5-10.1); Chloride 109 mmol/L (98-107); Creatinine, Serum 0.96 mg/dL (0.70-1.30); EST Glomerular Filtration Rate 84 mL/min (>60); Est Glom Filt Rate - Afr Amer 101 mL/min (>60); Globulin 3.9 g/dL (2.2-4.2); Glucose 100 mg/dL (74-106); PSA,Total - Annual Screen 0.19 ng/mL (0.00-4.00); Potassium 4.2 mmol/L (3.5-5.1); Protein, Total 7.4 g/dL (6.4-8.2); Sodium Level 140 mmol/L (136-145)
== END | disposition home or self-care (01) ==
LOC: POLAB3 09:00
PROVIDERS: PCP Family Medicine Geriatric Medicine; Visit Provider Family Medicine Geriatric Medicine
DX: E55.9 Vitamin D deficiency, unspecified (principal); F52.8 Other sexual dysfunction not due to a substance or known physiological condition; R53.83 Other fatigue; Z12.5 Encounter for screening for malignant neoplasm of prostate
CPT/HCPCS: 36415; 80053; 82306; 84153; 84403; 84443; 85025; G0103

== ENCOUNTER 2020-03-01 13:49 | Outpatient (RCR) | payer OTHER, MEDICARE, SELFPAY ==
[2019-10-18 08:23] VITALS: BMI 22.7
[2020-03-01 14:56] LABS: International Normalized Ratio 2.8; Prothrombin Time (Protime)PT. 28.7 SECONDS (11.7-14.9)
== END 2020-03-01 18:00 | disposition home or self-care (01) ==
LOC: LAB 13:49
PROVIDERS: Family Provider Family Medicine Geriatric Medicine; PCP Family Medicine Geriatric Medicine; Referring Provider Internal Medicine Cardiovascular Disease; Visit Provider Internal Medicine Cardiovascular Disease
DX: I48.0 Paroxysmal atrial fibrillation (principal); Z79.01 Long term (current) use of anticoagulants
CPT/HCPCS: 36415; 85610

== ENCOUNTER 2020-03-29 10:45 | Outpatient (RCR) | payer OTHER, MEDICARE, SELFPAY ==
[2019-10-18 08:23] VITALS: BMI 22.7
[2020-03-29 11:15] LABS: International Normalized Ratio 2.9; Prothrombin Time (Protime)PT. 29.9 SECONDS (11.7-14.9)
== END 2020-03-29 18:00 | disposition home or self-care (01) ==
LOC: LAB 10:45
PROVIDERS: Family Provider Family Medicine Geriatric Medicine; PCP Family Medicine Geriatric Medicine; Referring Provider Internal Medicine Cardiovascular Disease; Visit Provider Internal Medicine Cardiovascular Disease
DX: I48.0 Paroxysmal atrial fibrillation (principal); Z79.01 Long term (current) use of anticoagulants
CPT/HCPCS: 36415; 85610

== ENCOUNTER → 2020-04-18 06:50 | Outpatient (CLI) | payer OTHER, MEDICARE, SELFPAY ==
[2019-10-18 08:23] VITALS: BMI 22.7
--- NOTE | 2020-04-18 06:52 | CT_ITS ---
STUDY: CT LUMBAR SPINE WITHOUT CONTRAST REASON FOR EXAM: Male, 64 years old. BACK AND LEG PAIN X YEARS RADIATION DOSAGE (If Supplied By Facility): CTDIvol = ( 13.82 ) mGy, DLP = ( 391.10 ) mGycm TECHNIQUE: The patient was scanned in a multi detector CT scanner. High resolution transaxial imaging was performed. Images were obtained from L1 to S1 vertebral level. Sagittal and coronal images were reconstructed. Individualized dose optimization techniques were used for this CT. COMPARISON: Comparison is made with prior study dated 05/16/2016. FINDINGS: Normal lumbar lordosis. There is no substantial scoliosis. Stable loss of height of the superior endplate of the L1 vertebrae. L1-2: Mild degree of disc space narrowing and disc degeneration. Mild degree of diffuse posterior disc bulge with degeneration of the disc. There is evidence of a left paracentral disc herniation. The disc contains air at this time. L2-3: Moderate degree of disc space narrowing. Spondylosis. Diffuse posterior disc bulge. Moderate degree of bilateral neural foraminal stenosis. Hypertrophy of the ligamentum flavum. L3-4: Moderate degree of disc space narrowing and disc degeneration. Spondylosis. Bilateral neural foraminal stenosis. L4-5: Moderate degree of disc space narrowing. Disc degeneration. Spondylosis. Hypertrophy of the facet joints. Bilateral neural foraminal stenosis. L5-S1: Moderate degree of disc space narrowing. Disc degeneration. Spondylosis. Facet joint osteoarthritis. Mild degree of diffuse posterior disc bulge and bilateral neural foraminal stenosis. Atherosclerotic calcification of the abdominal aorta. CT/Spine Lumbar without Contrast IMPRESSION: Multilevel degenerative changes, as described above. Electronically Signed: Damien Medellin, at 10:06 EST , Service support ,
== END ==
PROVIDERS: PCP Family Medicine Geriatric Medicine; Referring Provider Anesthesiology Pain Medicine; Visit Provider Anesthesiology Pain Medicine
DX: M54.9 Dorsalgia, unspecified (principal); M79.606 Pain in leg, unspecified
CPT/HCPCS: 72131

== ENCOUNTER 2020-04-27 09:38 | Outpatient (RCR) | payer OTHER, MEDICARE, SELFPAY ==
[2019-10-18 08:23] VITALS: BMI 22.7
[2020-04-27 10:27] LABS: International Normalized Ratio 2.2; Prothrombin Time (Protime)PT. 24.3 SECONDS (11.7-14.9)
== END 2020-04-27 18:00 | disposition home or self-care (01) ==
LOC: LAB 09:38
PROVIDERS: Family Provider Family Medicine Geriatric Medicine; PCP Family Medicine Geriatric Medicine; Referring Provider Internal Medicine Cardiovascular Disease; Visit Provider Internal Medicine Cardiovascular Disease
DX: I48.0 Paroxysmal atrial fibrillation (principal); Z79.01 Long term (current) use of anticoagulants
CPT/HCPCS: 36415; 85610

== ENCOUNTER 2020-05-25 09:40 | Outpatient (RCR) | payer OTHER, MEDICARE, SELFPAY ==
[2019-10-18 08:23] VITALS: BMI 22.7
[2020-05-25 10:25] LABS: International Normalized Ratio 2.6; Prothrombin Time (Protime)PT. 27.2 SECONDS (11.7-14.9)
== END 2020-05-25 18:00 | disposition home or self-care (01) ==
LOC: LAB 09:40
PROVIDERS: Family Provider Family Medicine Geriatric Medicine; PCP Family Medicine Geriatric Medicine; Referring Provider Internal Medicine Cardiovascular Disease; Visit Provider Internal Medicine Cardiovascular Disease
DX: I48.0 Paroxysmal atrial fibrillation (principal); Z79.01 Long term (current) use of anticoagulants
CPT/HCPCS: 36415; 85610

== ENCOUNTER → 2020-06-18 09:51 | Outpatient (CLI) | payer OTHER, MEDICARE, SELFPAY ==
[2019-10-18 08:23] VITALS: BMI 22.7
[2020-06-18 10:47] LABS: Amphetamine Urine VISTA NEGATIVE (<1000 ng/mL); Barbiturate Urine VISTA NEGATIVE (< 200 ng/mL); Benzodiazepine Urine VISTA NEGATIVE (< 200 ng/mL); Cocaine Urine VISTA NEGATIVE (< 300 ng/mL); Ecstacy Urine VISTA POSITIVE (< 500 ng/mL); Methadone Urine VISTA NEGATIVE (< 300 ng/mL); PCP Urine VISTA NEGATIVE (< 25 ng/mL); THC Urine VISTA NEGATIVE (< 50 ng/mL); Vista UDS pH Range 5
== END ==
PROVIDERS: PCP Family Medicine Geriatric Medicine; Referring Provider Anesthesiology Pain Medicine; Visit Provider Anesthesiology Pain Medicine
DX: F11.20 Opioid dependence, uncomplicated (principal)
CPT/HCPCS: 80307

== ENCOUNTER 2020-06-19 09:53 | Outpatient (RCR) | payer OTHER, MEDICARE, SELFPAY ==
[2019-10-18 08:23] VITALS: BMI 22.7
[2020-06-19 10:30] LABS: International Normalized Ratio 2.4; Prothrombin Time (Protime)PT. 25.9 SECONDS (11.7-14.9)
== END 2020-06-19 18:00 | disposition home or self-care (01) ==
LOC: LAB 09:53
PROVIDERS: Family Provider Family Medicine Geriatric Medicine; PCP Family Medicine Geriatric Medicine; Referring Provider Internal Medicine Cardiovascular Disease; Visit Provider Internal Medicine Cardiovascular Disease
DX: I48.0 Paroxysmal atrial fibrillation (principal); Z79.01 Long term (current) use of anticoagulants
CPT/HCPCS: 36415; 85610

== ENCOUNTER 2020-07-20 07:56 | Outpatient (RCR) | payer OTHER, MEDICARE, SELFPAY ==
[2020-06-29 08:33] VITALS: BMI 23.1
[2020-07-20 08:29] LABS: International Normalized Ratio 2.7; Prothrombin Time (Protime)PT. 28.1 SECONDS (11.7-14.9)
== END 2020-07-20 18:00 | disposition home or self-care (01) ==
LOC: LAB 07:56
PROVIDERS: Family Provider Family Medicine Geriatric Medicine; PCP Family Medicine Geriatric Medicine; Referring Provider Internal Medicine Cardiovascular Disease; Visit Provider Internal Medicine Cardiovascular Disease
DX: I48.0 Paroxysmal atrial fibrillation (principal); Z79.01 Long term (current) use of anticoagulants
CPT/HCPCS: 36415; 85610

== ENCOUNTER → 2020-08-10 08:59 | Outpatient (CLI) | payer OTHER, MEDICARE, SELFPAY ==
[2020-06-29 08:33] VITALS: BMI 23.1
[2020-08-10 12:43] LABS: Absolute Lymphocyte Count 1.31 X10^3/uL (0.83-4.51); Absolute Neutrophil Count 3.7 X10^3/uL (2.0-7.7); Basophil# 0.02 X10^3/uL; Basophil% 0.3 % (0-1); Eosinophil# 0.12 X10^3/uL; Eosinophils% 2.1 % (0-5); Hematocrit 39.4 % (40-54); Hemoglobin 12.8 g/dL (13.0-16.5); Lymphocyte # 1.31 X10^3/ul (4.0); Lymphocyte % 22.7 % (19-41); Mean Corp Hgb Conc 32.5 g/dL (32-36); Mean Corpuscular Hgb 30.8 pg (27.0-32.0); Mean Corpuscular Volume 94.9 fL (80-94); Mean Platelet Vol. 10.9 fl (6.2-12.0); Monocyte# 0.63 X10^3/uL; Monocyte% 10.9 % (0-10); NRBC Flagged by Analyzer 0 % (0-5); Neutrophil # 3.67 X10^3/uL (2.7-7.7); Neutrophil % 63.5 % (47-70); Platelet Count 179 K/mm3 (150-450); RBC Distribution Width CV 13.8 % (11.6-14.6); RBC Distribution Width SD 48.1 fl (35.1-43.9); Red Blood Count 4.15 M/mm3 (4.6-6.2); White Blood Count 5.8 K/mm3 (4.4-11.0)
[2020-08-10 13:14] LABS: AST(SGOT) 48 U/L (15-37); Alanine Aminotransfer ALT/SGPT 58 U/L (16-61); Albumin, Serum 3.8 g/dL (3.2-5.0); Alkaline Phosphatase 89 U/L (45-117); Anion Gap 6 (5-15); BUN 17 mg/dL (7-18); BUN/Creat Ratio 15.9 RATIO (10-20); Chloride 106 mmol/L (98-107); Creatinine, Serum 1.07 mg/dL (0.70-1.30); EST Glomerular Filtration Rate 74 mL/min (>60); Est Glom Filt Rate - Afr Amer 89 mL/min (>60); Globulin 3.8 g/dL (2.2-4.2); Glucose 95 mg/dL (74-106); Potassium 4.5 mmol/L (3.5-5.1); Protein, Total 7.6 g/dL (6.4-8.2); Sodium Level 140 mmol/L (136-145); Thyroid Stim Hormone (TSH) 0.73 uIU/mL (0.358-3.74)
[2020-08-10 13:16] LABS: Vitamin D,25 Hydroxy 53.9 ng/mL
== END ==
PROVIDERS: PCP Family Medicine Geriatric Medicine; Visit Provider Family Medicine Geriatric Medicine
DX: E55.9 Vitamin D deficiency, unspecified (principal); F52.8 Other sexual dysfunction not due to a substance or known physiological condition; R53.83 Other fatigue
CPT/HCPCS: 36415; 80053; 82306; 84403; 84443; 85025

== ENCOUNTER 2020-08-17 09:52 | Outpatient (RCR) | payer OTHER, MEDICARE, SELFPAY ==
[2020-06-29 08:33] VITALS: BMI 23.1
[2020-08-17 10:34] LABS: International Normalized Ratio 2.2; Prothrombin Time (Protime)PT. 23.5 SECONDS (11.7-14.9)
== END 2020-08-17 18:00 | disposition home or self-care (01) ==
LOC: LAB 09:52
PROVIDERS: Family Provider Family Medicine Geriatric Medicine; PCP Family Medicine Geriatric Medicine; Referring Provider Internal Medicine Cardiovascular Disease; Visit Provider Internal Medicine Cardiovascular Disease
DX: I48.0 Paroxysmal atrial fibrillation (principal); Z79.01 Long term (current) use of anticoagulants
CPT/HCPCS: 36415; 85610

== ENCOUNTER 2020-09-28 09:31 | Outpatient (RCR) | payer OTHER, MEDICARE, SELFPAY ==
[2020-06-29 08:33] VITALS: BMI 23.1
[2020-09-28 10:20] LABS: Prothrombin Time (Protime)PT. 22.1 SECONDS (11.7-14.9)
== END 2020-09-28 18:00 | disposition home or self-care (01) ==
LOC: LAB 09:31
PROVIDERS: Family Provider Family Medicine Geriatric Medicine; PCP Family Medicine Geriatric Medicine; Referring Provider Internal Medicine Cardiovascular Disease; Visit Provider Internal Medicine Cardiovascular Disease
DX: I48.0 Paroxysmal atrial fibrillation (principal); Z79.01 Long term (current) use of anticoagulants
CPT/HCPCS: 36415; 85610

== ENCOUNTER → 2020-12-10 07:51 | Outpatient (CLI) | payer OTHER, MEDICARE, SELFPAY ==
[2020-06-29 08:33] VITALS: BMI 23.1
--- NOTE | 2020-12-10 07:54 | ECHOD_ITS ---
Reason For Study: VALVE REPLACEMENT EVAL Procedure This was a 2D Doppler, Color Flow transthoracic echocardiogram. The study was technically difficult. Exam performed in department. Left Ventricle Normal LV size. Mild concentric left ventricular hypertrophy. Left ventricular systolic function is normal. The estimated ejection fraction is 55 %. No evidence for diastolic dysfunction. Right Ventricle Normal RV size. ICD or pacer leads identified within the right ventricle. Normal systolic function. Atria Normal left atrium. Normal right atrium. ICD or pacer leads identified within the right atrium. No doppler evidence for ASD. Mitral Valve Stable appearing bioprosthetic mitral valve apparatus. MIld (1+) transvalvular insufficiency of the mitral valve. Tricuspid Valve Right ventricular systolic pressure estimated to be 30 mmHg. An annuloplasty ring is noted in the tricuspid position. Mild transvalvular insufficiency of the tricuspid valve. Aortic Valve Trisinus/trileaflet aortic valve. Normal aortic valve. Pulmonic Valve The pulmonic valve is not well visualized. Great Vessels Normal sized aortic root. Pericardium/Pleural No pericardial effusion. MMode/2D Measurements & Calculations LVIDd: 4.6 cm IVSd: 1.3 cm Ao root diam: 3.4 cm LVIDs: 3.3 cm LVPWd: 1.3 cm RVDd: 3.1 cm FS: 27.0 % LAV(MOD-bp): 43.1 ml LA A4 area: 15.0 cm2 RA A4 area: 13.6 cm2 LAV(MOD-bp) Indexed: 22.2 ml/m2 LAV(MOD-sp2): 42.6 ml LAV(MOD-sp4): 42.6 ml Time Measurements MV dec time: 0.25 sec Doppler Measurements & Calculations MV E max kenya: 177.7 cm/sec MV V2 max: 186.3 cm/sec Ao V2 max: 120.9 cm/sec MV A max kenya: 101.6 cm/sec MV max P.9 mmHg Ao max P.8 mmHg MV E/A: 1.7 MV V2 mean: 101.5 cm/sec MV mean P.8 mmHg MV V2 VTI: 45.7 cm LV V1 max: 71.9 cm/sec PA V2 max: 81.9 cm/sec TR max kenya: 259.1 cm/sec LV V1 max P.1 mmHg TR max P.9 mmHg ECHO/Echo Complete Interpretation Summary The study was technically difficult. Left ventricular systolic function is normal. The estimated ejection fraction is 55 %. Mild concentric left ventricular hypertrophy. Stable appearing bioprosthetic mitral valve apparatus. MIld (1+) transvalvular insufficiency of the mitral valve. An annuloplasty ring is noted in the tricuspid position. Mild transvalvular insufficiency of the tricuspid valve. Right ventricular systolic pressure estimated to be 30 mmHg. No evidence for diastolic dysfunction. Ordering Physician: J Luis^Ben^^^ Referring Physician: Fracisco Carvalho Chi Performed By: Tessie Melendez, RDCS, RVT
== END ==
PROVIDERS: PCP Family Medicine Geriatric Medicine; Referring Provider Internal Medicine Cardiovascular Disease; Visit Provider Internal Medicine Cardiovascular Disease
DX: Z95.3 Presence of xenogenic heart valve (principal); Z98.890 Other specified postprocedural states
CPT/HCPCS: 93306

== ENCOUNTER 2021-01-02 08:58 | Outpatient (RCR) | payer OTHER, MEDICARE, SELFPAY ==
[2020-06-29 08:33] VITALS: BMI 23.1
[2020-12-31 08:21] VITALS: BMI 23.1
[2021-01-02 09:38] LABS: International Normalized Ratio 2.6; Prothrombin Time (Protime)PT. 27.4 SECONDS (11.7-14.9)
== END 2021-01-02 18:00 | disposition home or self-care (01) ==
LOC: LAB 08:58
PROVIDERS: Nurse Practitioner Family; Family Provider Family Medicine Geriatric Medicine; PCP Family Medicine Geriatric Medicine; Referring Provider Internal Medicine Cardiovascular Disease; Visit Provider Internal Medicine Cardiovascular Disease
DX: Z79.01 Long term (current) use of anticoagulants (principal)
CPT/HCPCS: 36415; 85610

== ENCOUNTER 2021-02-05 10:16 | Outpatient (RCR) | payer OTHER, MEDICARE, SELFPAY ==
[2021-01-15 19:51] VITALS: BMI 23.1
[2021-02-05 11:54] LABS: Prothrombin Time (Protime)PT. 21.6 SECONDS (11.7-14.9)
[2021-02-05 13:01] LABS: Amphetamine Urine VISTA NEGATIVE (<1000 ng/mL); Barbiturate Urine VISTA NEGATIVE (< 200 ng/mL); Benzodiazepine Urine VISTA NEGATIVE (< 200 ng/mL); Cocaine Urine VISTA NEGATIVE (< 300 ng/mL); Ecstacy Urine VISTA POSITIVE (< 500 ng/mL); Methadone Urine VISTA NEGATIVE (< 300 ng/mL); PCP Urine VISTA NEGATIVE (< 25 ng/mL); THC Urine VISTA NEGATIVE (< 50 ng/mL); Vista UDS pH Range 5
== END 2021-02-05 18:00 | disposition home or self-care (01) ==
LOC: LAB 10:16
PROVIDERS: Anesthesiology Pain Medicine; Family Provider Family Medicine Geriatric Medicine; PCP Family Medicine Geriatric Medicine; Referring Provider Internal Medicine Cardiovascular Disease; Visit Provider Internal Medicine Cardiovascular Disease
DX: F11.20 Opioid dependence, uncomplicated (principal); Z79.01 Long term (current) use of anticoagulants
CPT/HCPCS: 36415; 80307; 85610

== ENCOUNTER → 2021-02-18 10:00 | Outpatient (CLI) | payer MEDICARE, SELFPAY ==
[2021-02-18 12:09] LABS: Absolute Lymphocyte Count 1.78 X10^3/uL (0.83-4.51); Absolute Neutrophil Count 4.5 X10^3/uL (2.0-7.7); Basophil# 0.03 X10^3/uL; Basophil% 0.4 % (0-1); Eosinophil# 0.25 X10^3/uL; Eosinophils% 3.4 % (0-5); Hematocrit 40.1 % (40-54); Hemoglobin 13.2 g/dL (13.0-16.5); Lymphocyte # 1.78 X10^3/ul (0.83-4.51); Lymphocyte % 24.4 % (19-41); Mean Corp Hgb Conc 32.9 g/dL (32-36); Mean Corpuscular Hgb 30.9 pg (27.0-32.0); Mean Corpuscular Volume 93.9 fL (80-94); Mean Platelet Vol. 11.3 fl (6.2-12.0); Monocyte# 0.76 X10^3/uL; Monocyte% 10.4 % (0-10); NRBC Flagged by Analyzer 0 % (0-5); Neutrophil # 4.46 X10^3/uL (2.7-7.7); Platelet Count 174 K/mm3 (150-450); RBC Distribution Width CV 14.4 % (11.6-14.6); RBC Distribution Width SD 50.1 fl (35.1-43.9); Red Blood Count 4.27 M/mm3 (4.6-6.2); White Blood Count 7.3 K/mm3 (4.4-11.0)
[2021-02-18 12:20] LABS: Vitamin D,25 Hydroxy 87.2 ng/mL
[2021-02-18 12:30] LABS: ALB/GLOB Ratio 0.9 RATIO (0.9-2.4); AST(SGOT) 47 U/L (15-37); Alanine Aminotransfer ALT/SGPT 46 U/L (16-61); Albumin, Serum 3.6 g/dL (3.2-5.0); Alkaline Phosphatase 77 U/L (45-117); Anion Gap 6 (5-15); BUN 14 mg/dL (7-18); BUN/Creat Ratio 12.3 RATIO (10-20); Calcium,Total 8.9 mg/dL (8.5-10.1); Chloride 105 mmol/L (98-107); Creatinine, Serum 1.14 mg/dL (0.70-1.30); EST Glomerular Filtration Rate 68 mL/min (>60); Est Glom Filt Rate - Afr Amer 83 mL/min (>60); Globulin 4.2 g/dL (2.2-4.2); Glucose 102 mg/dL (74-106); PSA,Total - Annual Screen 0.26 ng/mL (0.00-4.00); Potassium 4.2 mmol/L (3.5-5.1); Protein, Total 7.8 g/dL (6.4-8.2); Sodium Level 139 mmol/L (136-145); Thyroid Stim Hormone (TSH) 2.34 uIU/mL (0.358-3.74)
== END ==
PROVIDERS: PCP Family Medicine Geriatric Medicine; Visit Provider Family Medicine Geriatric Medicine
DX: E55.9 Vitamin D deficiency, unspecified (principal); R53.83 Other fatigue; F52.8 Other sexual dysfunction not due to a substance or known physiological condition; Z12.5 Encounter for screening for malignant neoplasm of prostate
CPT/HCPCS: 36415; 80053; 82306; 84153; 84403; 84443; 85025; G0103

== ENCOUNTER → 2021-02-19 10:15 | Outpatient (CLI) | payer MEDICARE, BC, SELFPAY ==
[2021-02-19 15:07] LABS: Probe Check A
== END ==
PROVIDERS: PCP Family Medicine Geriatric Medicine; Visit Provider Family Medicine Geriatric Medicine
DX: R68.83 Chills (without fever) (principal)
CPT/HCPCS: 87635; 87804; 87807; C9803; U0005; U0003

== ENCOUNTER → 2021-04-29 08:28 | Outpatient (CLI) | payer MEDICARE, BC, SELFPAY | PROVIDERS: PCP Family Medicine Geriatric Medicine; Referring Provider Family Medicine Geriatric Medicine; Visit Provider Family Medicine Geriatric Medicine | DX: R68.83 Chills (without fever) (principal) | CPT/HCPCS: 87635; 87804; 87807; C9803; U0005; U0003 ==

== ENCOUNTER 2021-04-29 08:48 | Outpatient (RCR) | payer MEDICARE, BC, SELFPAY ==
[2021-02-14 20:05] VITALS: BMI 23.1
[2021-04-29 09:43] LABS: International Normalized Ratio 3.1; Prothrombin Time (Protime)PT. 31.1 SECONDS (11.7-14.9)
== END 2021-05-18 18:00 | disposition home or self-care (01) ==
LOC: LAB 08:48
PROVIDERS: Family Provider Family Medicine Geriatric Medicine; PCP Family Medicine Geriatric Medicine; Referring Provider Internal Medicine Cardiovascular Disease; Visit Provider Internal Medicine Cardiovascular Disease
DX: Z79.01 Long term (current) use of anticoagulants (principal); F11.20 Opioid dependence, uncomplicated; R68.83 Chills (without fever)
CPT/HCPCS: 36415; 85610; 87635; 87804; 87807; C9803; U0005; U0003

== ENCOUNTER 2021-06-04 08:49 | Outpatient (RCR) | payer MEDICARE, BC, SELFPAY ==
[2021-05-19 03:41] VITALS: BMI 23.1
[2021-06-04 09:39] LABS: Prothrombin Time (Protime)PT. 30.2 SECONDS (11.7-14.9)
== END 2021-06-17 18:00 | disposition home or self-care (01) ==
LOC: LAB 08:49
PROVIDERS: Family Provider Family Medicine Geriatric Medicine; PCP Family Medicine Geriatric Medicine; Referring Provider Internal Medicine Cardiovascular Disease; Visit Provider Internal Medicine Cardiovascular Disease
DX: Z79.01 Long term (current) use of anticoagulants (principal)
CPT/HCPCS: 36415; 85610

== ENCOUNTER 2021-06-05 13:43 | Inpatient (IN) | payer MEDICARE, BC, SELFPAY ==
[2021-06-05] VITALS (7 sets, daily range): BP systolic 112–159; BP diastolic 58–89; PULSE 69–91; RESP 15–18; TEMP 36.7–37; O2SAT 95–98; BMI 23.4; BMI 22.3
--- NOTE | 2021-06-05 15:50 | EX.ED.SAOD ---
HPI History of Present Illness Chief Complaint: Substance Abuse Informant: patient Onset/Context/Timing Onset: Month(s) (6) Context: Gradual Onset Timing: Continuous Associated Symptoms Associated Symptoms: Positive for tremor; Negative for vomiting*, diarrhea*, fever*, rash*, seizure, palpatations, change in mental status and trauma Narrative Narrative: Patient presents with request for alcohol detox. Patient states he drinks approximately 1/5 of vodka per day. Patient states his last drink was this morning. Patient states he has been drinking heavily for the past 6 months. Patient states he went through detox approximately 3 years ago in [place]. Patient denies any seizures. Patient does admit to some mild tremors. Patient denies any nausea or vomiting. Patient denies any palpitations. Patient denies any fevers or chills. 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 Nonrheumatic mitral valve regurgitation Other peripheral vascular disease Paroxysmal atrial fibrillation Pure hypercholesterolemia Sick sinus syndrome Sleep apnea Smoker Syncope Tobacco use disorder Home Medications albuterol sulfate 90 mcg/actuation aerosol inhaler 2 puff INHALATION Q4H g 07/24/17 [History Last Taken 06/05/21] trazodone 100 mg tablet 200 mg PO QHS tab 07/24/17 [History Last Taken 06/04/21] bupropion HCl (smoking deter) 150 mg tablet,12 hr sustained-release(smoking deterrent) 150 mg PO BID 09/09/17 [History Last Taken 06/05/21] tamsulosin 0.4 mg capsule 0.4 mg PO BID cap 09/08/18 [History Last Taken 06/05/21] potassium 99 mg tablet 99 mg PO DAILY tab 10/18/19 [History Last Taken 06/05/21] doxepin 150 mg capsule 150 mg PO QHS cap 12/31/20 [History Last Taken 06/04/21] atorvastatin 40 mg tablet 40 mg PO QHS 01/16/21 [History Last Taken 06/04/21] cholecalciferol (vitamin D3) 50 mcg (2,000 unit) tablet 100 mcg PO DAILY tab 01/16/21 [History Last Taken 06/05/21] metoprolol succinate 50 mg tablet,extended release 24 hr 50 mg PO DAILY 01/16/21 [History Last Taken 06/05/21] tizanidine 4 mg tablet 4 mg PO QHS 01/16/21 [History Last Taken 06/04/21] hydrocodone-acetaminophen 1 tab PO 4X/DAY 06/05/21 [History Last Taken 06/05/21] levothyroxine 100 mcg PO DAILY 06/05/21 [History Last Taken 06/04/21] warfarin 2.5 mg PO DAILY 06/05/21 [History Last Taken 06/04/21] Allergy/AdvReac Type Severity Reaction Status Date / Time No Known Allergies Allergy Verified 06/05/21 13:44 Family History Grandfather CAD (coronary artery disease) Father CAD (coronary artery disease) Hx of CABG Surgical History (Updated 06/05/21 @ 19:57 by Sophia Patterson) History of appendectomy History of hernia repair History of mitral valve replacement History of mitral valve replacement with bioprosthetic valve (07/27/14) History of shoulder surgery History of tricuspid valve repair (~07/27/14) History of tricuspid valve repair (~07/27/14) Social History Smoking Status: Current every day smoker tobacco type: cigars alcohol intake: current details: occasional substance use type: former substance user, crack/cocaine and heroin ROS ROS ED Constitutional Constitutional ED: Denies chills or fever(s) Eyes Eyes: Denies blurry vision or change in vision ENT ENT ED: Denies rhinorrhea or sore throat Cardiovascular Cardiovascular: Denies chest pain or palpitations Respiratory/Chest Respiratory/Chest: Denies cough or dyspnea Gastrointestinal Gastrointestinal: Denies nausea or vomiting Genitourinary Genitourinary ED: Denies dysuria or hematuria Musculoskeletal Musculoskeletal: Reports back pain; Denies neck pain Integumentary Denies abscess or rash Neurologic Neurologic: Denies headache(s) or weakness Allergic/Immunologic Allergic/Immunologic ED: Denies mouth swelling or urticaria EXAM Physical Exam Const Vital Signs: 06/05/21 13:44 06/05/21 16:13 Temperature 98.5 F Temperature Source Temporal Pulse Rate 69 82 Respiratory Rate 16 15 Blood Pressure 123/63 H 154/89 H Blood Pressure Mean 83 110 Pulse Ox 95 96 Oxygen Delivery Method Room Air Room Air Positive well nourished and well developed General Appearance ED: well developed HEENT Reports moist mucous membranes Neck supple and no JVD Resp normal respiratory effort and clear to auscultation bilaterally Cardio regular rate, regular rhythm and no murmurs GI normal to inspection, nondistended, normoactive bowel sounds and non-tender Palpation: soft Extremity normal to inspection General Extremety ED: Negative for edema or tenderness General Extremity: Negative for edema Neuro oriented x3, CN's II-XII intact bilaterally and no sensory deficits noted Sensorium / Orientation: alert Motor Exam: strength 5/5 throughout Psych mental status grossly normal Skin no rashes or lesions noted MDM MDM MDM Narrative Medical decision making narrative: CBC shows a hemoglobin of 12.0 and hematocrit of 36.0. Platelets were normal. Comprehensive metabolic profile was essentially within normal limits. Lipase was normal. Urine tox screen was positive for opiates and methamphetamines. Serum alcohol level was 110. INR was therapeutic at 2.6. PTT was 61.8. Case was discussed with the hospitalist. He will admit the patient to his service for detox. Patient understood and was agreeable with the plan. All questions were answered. Lab Data Attestation: I reviewed the patient's lab results. Labs: Laboratory Results - last 24 hr 06/05/21 06/05/21 06/05/21 15:54 16:10 16:10 WBC 8.1 RBC 3.74 L Hgb 12.0 L Hct 36.0 L MCV 96.3 H MCH 32.1 H MCHC 33.3 RDW Std Deviation 49.1 H RDW Coeff of Luciana 14.0 Plt Count 183 MPV 11.0 Immature Gran % (Auto) 0.700 Neut % (Auto) 68.7 Lymph % (Auto) 20.4 Alfalfa % (Auto) 8.3 Eos % (Auto) 1.4 Baso % (Auto) 0.5 Absolute Neuts (auto) 5.6 Absolute Lymphs (auto) 1.66 Nucleated RBC % 0 PT INR APTT Sodium 139 Potassium 4.0 Chloride 106 Carbon Dioxide 26.0 Anion Gap 7 BUN 11 Creatinine 0.93 Estim Creat Clear Calc 83.22 Est GFR (MDRD) Af Amer 104 Est GFR (MDRD) Non-Af 86 BUN/Creatinine Ratio 11.8 Glucose 72 L Calcium 8.8 Phosphorus Magnesium Total Bilirubin 0.60 AST 37 ALT 39 Alkaline Phosphatase 54 Total Protein 7.6 Albumin 3.8 Globulin 3.8 Albumin/Globulin Ratio 1.0 Lipase 56 L Urine Opiates Screen POSITIVE H Urine Methadone Screen NEGATIVE Ur Barbiturates Screen NEGATIVE Ur Phencyclidine Scrn NEGATIVE Ur Amphetamines Screen NEGATIVE U Methamphetamin-MDMA POSITIVE H U Benzodiazepines Scrn NEGATIVE Urine Cocaine Screen NEGATIVE U Cannabinoids Screen NEGATIVE Ur Drug Screen Comment Ethyl Alcohol 06/05/21 06/05/21 06/05/21 16:10 16:10 16:10 WBC RBC Hgb Hct MCV MCH MCHC RDW Std Deviation RDW Coeff of Luciana Plt Count MPV Immature Gran % (Auto) Neut % (Auto) Lymph % (Auto) Alfalfa % (Auto) Eos % (Auto) Baso % (Auto) Absolute Neuts (auto) Absolute Lymphs (auto) Nucleated RBC % PT 27.3 H INR 2.6 APTT 61.8 H Sodium Potassium Chloride Carbon Dioxide Anion Gap BUN Creatinine Estim Creat Clear Calc Est GFR (MDRD) Af Amer Est GFR (MDRD) Non-Af BUN/Creatinine Ratio Glucose Calcium Phosphorus 3.1 Magnesium 1.9 Total Bilirubin AST ALT Alkaline Phosphatase Total Protein Albumin Globulin Albumin/Globulin Ratio Lipase Urine Opiates Screen Urine Methadone Screen Ur Barbiturates Screen Ur Phencyclidine Scrn Ur Amphetamines Screen U Methamphetamin-MDMA U Benzodiazepines Scrn Urine Cocaine Screen U Cannabinoids Screen Ur Drug Screen Comment Ethyl Alcohol 110.0 Treatment and Re-Evaluation Vital Sign Attestation:: Vital signs were reviewed prior to admission. They are stable. Discharge Plan Dx/Rx/DC Orders Clinical Impression: Alcohol withdrawal Disposition Disposition: Acute Care [facility] Discharge Date/Time: 06/05/21 19:05
[2021-06-05 16:26] LABS: Amphetamine Urine VISTA NEGATIVE (<1000 ng/mL); Barbiturate Urine VISTA NEGATIVE (< 200 ng/mL); Benzodiazepine Urine VISTA NEGATIVE (< 200 ng/mL); Cocaine Urine VISTA NEGATIVE (< 300 ng/mL); Ecstacy Urine VISTA POSITIVE (< 500 ng/mL); Methadone Urine VISTA NEGATIVE (< 300 ng/mL); PCP Urine VISTA NEGATIVE (< 25 ng/mL); THC Urine VISTA NEGATIVE (< 50 ng/mL); Vista UDS pH Range 5
[2021-06-05 16:37] LABS: Absolute Lymphocyte Count 1.66 X10^3/uL (0.83-4.51); Absolute Neutrophil Count 5.6 X10^3/uL (2.0-7.7); Basophil# 0.04 X10^3/uL; Basophil% 0.5 % (0-1); Eosinophil# 0.11 X10^3/uL; Eosinophils% 1.4 % (0-5); Lymphocyte # 1.66 X10^3/ul (0.83-4.51); Lymphocyte % 20.4 % (19-41); Mean Corp Hgb Conc 33.3 g/dL (32-36); Mean Corpuscular Hgb 32.1 pg (27.0-32.0); Mean Corpuscular Volume 96.3 fL (80-94); Monocyte# 0.67 X10^3/uL; Monocyte% 8.3 % (0-10); NRBC Flagged by Analyzer 0 % (0-5); Neutrophil # 5.58 X10^3/uL (2.7-7.7); Neutrophil % 68.7 % (47-70); Platelet Count 183 K/mm3 (150-450); RBC Distribution Width SD 49.1 fl (35.1-43.9); Red Blood Count 3.74 M/mm3 (4.6-6.2); White Blood Count 8.1 K/mm3 (4.4-11.0)
[2021-06-05 16:49] LABS: International Normalized Ratio 2.6; Prothrombin Time (Protime)PT. 27.3 SECONDS (11.7-14.9)
[2021-06-05 16:52] LABS: Partial Thromboplast Time 61.8 Seconds (24.1-36.2)
[2021-06-05 16:54] LABS: AST(SGOT) 37 U/L (15-37); Alanine Aminotransfer ALT/SGPT 39 U/L (16-61); Albumin, Serum 3.8 g/dL (3.2-5.0); Alkaline Phosphatase 54 U/L (45-117); Anion Gap 7 (5-15); BUN 11 mg/dL (7-18); BUN/Creat Ratio 11.8 RATIO (10-20); Calcium,Total 8.8 mg/dL (8.5-10.1); Chloride 106 mmol/L (98-107); Creatinine, Serum 0.93 mg/dL (0.70-1.30); EST Glomerular Filtration Rate 86 mL/min (>60); Est Glom Filt Rate - Afr Amer 104 mL/min (>60); Estimated Creatinine Clearance 83.22 ml/min; Globulin 3.8 g/dL (2.2-4.2); Glucose 72 mg/dL (74-106); Lipase 56 U/L (73-393); Protein, Total 7.6 g/dL (6.4-8.2); Sodium Level 139 mmol/L (136-145)
--- NOTE | 2021-06-05 17:26 | CASEMGMT ---
Social Work Consult: Substance Abuse Referral source: Self referral Met with patient in room. Introduced self and foster care social worker role. Patient agreeable to speak with this foster care social worker. Patient seeking medical management of withdrawal symptoms from alcohol. Patient reports to consume about a 1/5 of vodka a day. Patient reports history of sobriety and was able to stay sober for 2 years before this past year of relapse. Patient reports to have been speaking with [facility] and is aware of [facility] program. Patient denies mental health history or concerns. Active support and listening provided. Will continue to follow. Hill PACK, CRISTHIAN
--- NOTE | 2021-06-05 17:30 | HP.PCM.HOS_ITS ---
HPI - General General Date of Admission: 06/05/21 HPI Narrative BRIANNE VALLE, is a 66 M with history of chronic alcohol use and dependence came to ED for alcohol detox help. Patient drinks 1/5 of vodka daily along with 3-4 bottles of 16 ounce beer and some haynes/other alcoholic drinks every single day. He has been drinking heavily for past 6 months. He was last admitted in alcohol detox program in [place] 3 years ago. Patient's last drink was in the morning today. Patient had history of cocaine use and dependence and had mitral valve infection/bacterial endocarditis, which required mitral valve bioprosthetic replacement x2 and tricuspid repair in June 2014. Patient als o had history of DVT and septic emboli to toes and dry gangrene in the past. In the ED, heart rate 69/min. Blood pressure normal. No hypoxia. Afebrile. Labs reviewed. Patient is having mild tremors, feeling irritable but otherwise denies hallucination, delusions or seizure. 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 Nonrheumatic mitral valve regurgitation Other peripheral vascular disease Paroxysmal atrial fibrillation Pure hypercholesterolemia Sick sinus syndrome Syncope Tobacco use disorder Home Medications albuterol sulfate 90 mcg/actuation aerosol inhaler 2 puff INHALATION Q4H g 07/24/17 [History Last Taken 06/05/21] trazodone 100 mg tablet 200 mg PO QHS tab 07/24/17 [History Last Taken 06/04/21] bupropion HCl (smoking deter) 150 mg tablet,12 hr sustained-release(smoking deterrent) 150 mg PO BID 09/09/17 [History Last Taken 06/05/21] tamsulosin 0.4 mg capsule 0.4 mg PO BID cap 09/08/18 [History Last Taken 06/05/21] potassium 99 mg tablet 99 mg PO DAILY tab 10/18/19 [History Last Taken 06/05/21] doxepin 150 mg capsule 150 mg PO QHS cap 12/31/20 [History Last Taken 06/04/21] atorvastatin 40 mg tablet 40 mg PO QHS 01/16/21 [History Last Taken 06/04/21] cholecalciferol (vitamin D3) 50 mcg (2,000 unit) tablet 100 mcg PO DAILY tab 01/16/21 [History Last Taken 06/05/21] metoprolol succinate 50 mg tablet,extended release 24 hr 50 mg PO DAILY 01/16/21 [History Last Taken 06/05/21] tizanidine 4 mg tablet 4 mg PO QHS 01/16/21 [History Last Taken 06/04/21] hydrocodone-acetaminophen 1 tab PO 4X/DAY 06/05/21 [History Last Taken 06/05/21] levothyroxine 100 mcg PO DAILY 06/05/21 [History Last Taken 06/04/21] warfarin 2.5 mg PO DAILY 06/05/21 [History Last Taken 06/04/21] Allergy/AdvReac Type Severity Reaction Status Date / Time No Known Allergies Allergy Verified 06/05/21 13:44 Family History Grandfather CAD (coronary artery disease) Father CAD (coronary artery disease) Hx of CABG Surgical History History of hernia repair History of mitral valve replacement History of mitral valve replacement with bioprosthetic valve (07/27/14) History of shoulder surgery History of tricuspid valve repair (~07/27/14) History of tricuspid valve repair (~07/27/14) Social History Smoking Status: Current every day smoker tobacco type: cigarettes alcohol intake: current details: occasional substance use type: former substance user, crack/cocaine and heroin ROS ROS Narrative Constitutional: Reports fatigue and weakness. No fever HEENT: Reports systems reviewed and no addt'l complaints, except as documented Respiratory/Chest: Denies chest pain, shortness of breath at rest or with exertion Gastrointestinal: Denies coffee ground emesis, hematemesis or vomiting Genitourinary: Denies burning urination or new urinary tract symptoms Musculoskeletal: Bilateral shoulder surgery, 3 times in the past. Lower lumbar spine pain and gets intermittent spinal injections by Dr. Sanchez. Neurologic: Denies seizure-like activity skin: No ulcer. No rash Endocrinology: Reports systems reviewed and no addt'l complaints, except as documented Hematologic/Lymphatic: Reports systems reviewed and no addt'l complaints, except as documented Rest 14 ROS are negative except as mentioned in HPI Vital Signs Vital Signs Vital Signs: 06/05/21 13:44 06/05/21 16:13 Temperature 98.5 F Temperature Source Temporal Pulse Rate 69 82 Respiratory Rate 16 15 Blood Pressure 123/63 H 154/89 H Blood Pressure Mean 83 110 Pulse Ox 95 96 Oxygen Delivery Method Room Air Room Air Weight Weight: 167 lb 15.876 oz Body Mass Index (BMI) 23.4 Physical Exam Narrative General: Alert, Oriented x3, Cooperative HEENT: Atraumatic, PERRLA, EOMI, Normocephalic Oral: No Gingival or Mucosal Lesions/ Ulcerations Neck: Supple, No JVD, Negative Carotid Bruits Lungs: Air entry diminished in bilateral lung bases. No crepitation/rhonchi Cardiovascular: Regular rate, Regular Rhythm, Normal S1, Normal S2, mitral valve click sound. No appreciable murmur. Abdomen: Bowel Sounds Present, Soft, Non Tender, Non-Distended : No renal angle tenderness. No suprapubic tenderness. Extremities: No edema, Capillary Refill Less than 3 Seconds Skin: No rashes, No breakdown Musculoskeletal/spine: ROM restricted in shoulder joints. Mild lumbar spine tenderness, chronic nature. Neurological: Cranial nerves II-XII grossly intact, DTR 2+/4 and Symmetrical, mild tremors. Psych/Mental Status: Irritable. Flat affect. Results Lab / Micro Data Result Diagrams: 06/05/21 16:10 06/05/21 16:10 Labs: Laboratory Results - last 24 hr 06/05/21 15:54: Urine Opiates Screen POSITIVE H, Urine Methadone Screen NEGATIVE, Ur Barbiturates Screen NEGATIVE, Ur Phencyclidine Scrn NEGATIVE, Ur Amphetamines Screen NEGATIVE, U Methamphetamin-MDMA POSITIVE H, U Benzodiazepines Scrn NEGATIVE, Urine Cocaine Screen NEGATIVE, U Cannabinoids Screen NEGATIVE, Ur Drug Screen Comment 06/05/21 16:10: WBC 8.1, RBC 3.74 L, Hgb 12.0 L, Hct 36.0 L, MCV 96.3 H, MCH 32.1 H, MCHC 33.3, RDW Std Deviation 49.1 H, RDW Coeff of Luciana 14.0, Plt Count 183, MPV 11.0, Immature Gran % (Auto) 0.700, Neut % (Auto) 68.7, Lymph % (Auto) 20.4, [place] % (Auto) 8.3, Eos % (Auto) 1.4, Baso % (Auto) 0.5, Absolute Neuts (auto) 5.6, Absolute Lymphs (auto) 1.66, Nucleated RBC % 0 06/05/21 16:10: Sodium 139, Potassium 4.0, Chloride 106, Carbon Dioxide 26.0, Anion Gap 7, BUN 11, Creatinine 0.93, Estim Creat Clear Calc 83.22, Est GFR (MDRD) Af Amer 104, Est GFR (MDRD) Non-Af 86, BUN/Creatinine Ratio 11.8, Glucose 72 L, Calcium 8.8, Total Bilirubin 0.60, AST 37, ALT 39, Alkaline Phosphatase 54, Total Protein 7.6, Albumin 3.8, Globulin 3.8, Albumin/Globulin Ratio 1.0, Lipase 56 L 06/05/21 16:10: Ethyl Alcohol 110.0 06/05/21 16:10: PT 27.3 H, INR 2.6, APTT 61.8 H Micro: Microbiology 06/05/21 16:11 Nasal Secretion SARS-CoV-2 Antigen (Rapid) - Final Assessment & Plan Assessment/Plan (1) Alcohol withdrawal: PLAN: 1. Acute alcohol withdrawal syndrome with history of chronic heavy alcohol use, dependence and tolerance: Patient is being [facility] to [facility]. Started on buprenorphine based other adjunctive medications for medical stabilization of alcohol withdrawal syndrome. CIWA monitoring. IV fluid Ringer lactate 100 mL/h for 1 L. Thiamine and folic acid. U tox positive for opioids, methamphetamine. 2. 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 3. History of paroxysmal A. fib on warfarin. Last echo in November 2020. Twelve- lead EKG ordered patient follows Dr. Dietz. Patient was last seen in cardiology clinic by Tacos estrada NP. Office visit note reviewed. Potassium is normal. Magnesium and phosphorus ordered. Left ventricular systolic function is normal. The estimated ejection fraction is 55 %. Mild concentric left ventricular hypertrophy. Stable appearing bioprosthetic mitral valve apparatus. MIld (1+) transvalvular insufficiency of the mitral valve. An annuloplasty ring is noted in the tricuspid position. Mild transvalvular insufficiency of the tricuspid valve. Right ventricular systolic pressure estimated to be 30 mmHg. No evidence for diastolic dysfunction. 4. hypertension, dyslipidemia: BP is 148/83. Continue home medications patient on metoprolol and atorvastatin. 5. Anxiety, depression and bipolar disorder: Patient is on trazodone 100 mg daily, doxepin and bupropion. 6. Hypothyroidism: On levothyroxine 100 mcg daily. 7. BPH on tamsulosin 8. Chronic pain disorder, chronic lumbar degenerative disorder and bilateral shoulder surgeries: Patient follows Dr. Sanhcez. He is on Vicodin and tizanidine . Vicodin continued. He gets intermittent spinal injections by Dr. Sanchez VTE prophylaxis: Patient on warfarin. INR therapeutic CODE STATUS full code Charges/Coding Visit Charges Inpatient E&M: 13165 [place]
--- NOTE | 2021-06-05 17:44 | NURSING ---
MED SURG KELSIE ALCOHOL WITHDRAWAL
--- NOTE | 2021-06-05 18:49 | EKG12_ITS ---
Test Reason : A FIB Blood Pressure : / mmHG Vent. Rate : 070 BPM Atrial Rate : 068 BPM P-R Int : 252 ms QRS Dur : 126 ms QT Int : 452 ms P-R-T Axes : 000 -58 011 degrees QTc Int : 488 ms Atrial-paced rhythm with prolonged AV conduction Left axis deviation Non-specific intra-ventricular conduction block Abnormal ECG Confirmed by SIRISHA FINLEY, GHULAM ([id number]), editor news ALESHA WALDEN ([id number]) on 06/07/2021 9:10:25 AM Referred By: RANDY Confirmed By:GHULAM GRIMM MD
--- NOTE | 2021-06-05 19:29 | PCS.PANDOC ---
PANDEMIC DOCUMENTATION INITIATED: Date: 06/05/20 Time: 1924
[2021-06-05 19:34] LABS: Magnesium 1.9 mg/dL (1.6-2.6); Phosphorus 3.1 mg/dL (2.5-4.9)
[2021-06-05] MEDS: Phenobarbital 32.4 MG Tablet 64.8 MG PO (20:33)
[2021-06-05] MEDS: Metoprolol(XL)Succ 50 MG Tablet PO (20:33)
[2021-06-05] MEDS: traZODone 100 MG Tablet 200 MG PO (20:34)
[2021-06-05] MEDS: Tamsulosin HCl 0.4 MG Capsule PO (20:34)
[2021-06-05] MEDS: buPROPion (SR) 150 MG Tablet.SA PO (20:34)
[2021-06-05] MEDS: HYDROcodone Bitartrate/Apap 5/325 Tablet PO (20:34)
[2021-06-05] MEDS: Atorvastatin Calcium 40 MG Tablet PO (20:36)
--- NOTE | 2021-06-05 20:41 | CM.ED ---
Social Work Telephone call to [facility], treatment navigator updated on patient admission to [facility]. Social Work to continue to follow as needed. Hill Tanner MSW, DEDES
[2021-06-05] MEDS: DOXEPIN HCL 50 MG CAPSULE 150 MG PO (23:02)
[2021-06-06] VITALS (8 sets, daily range): BP systolic 103–131; BP diastolic 60–82; PULSE 70–86; RESP 16–18; TEMP 36.2–36.9; O2SAT 94–99
[2021-06-06] MEDS: Phenobarbital 32.4 MG Tablet 64.8 MG PO ×6 (00:02→21:00)
[2021-06-06] MEDS: HYDROcodone Bitartrate/Apap 5/325 Tablet PO ×2 (06:23→12:12)
[2021-06-06] MEDS: Levothyroxine 100 MCG Tablet PO (06:23)
[2021-06-06 06:53] LABS: Prothrombin Time (Protime)PT. 30.5 SECONDS (11.7-14.9)
[2021-06-06 07:03] LABS: AST(SGOT) 30 U/L (15-37); Alanine Aminotransfer ALT/SGPT 31 U/L (16-61); Albumin, Serum 3.1 g/dL (3.2-5.0); Alkaline Phosphatase 45 U/L (45-117); Anion Gap 5 (5-15); BUN 12 mg/dL (7-18); BUN/Creat Ratio 16.3 RATIO (10-20); Calcium,Total 8.2 mg/dL (8.5-10.1); Chloride 109 mmol/L (98-107); Creatinine, Serum 0.74 mg/dL (0.70-1.30); EST Glomerular Filtration Rate 113 mL/min (>60); Est Glom Filt Rate - Afr Amer 137 mL/min (>60); Estimated Creatinine Clearance 74.41 ml/min; Globulin 3.1 g/dL (2.2-4.2); Glucose 80 mg/dL (74-106); Potassium 3.8 mmol/L (3.5-5.1); Protein, Total 6.2 g/dL (6.4-8.2); Sodium Level 141 mmol/L (136-145)
[2021-06-06] MEDS: Tamsulosin HCl 0.4 MG Capsule PO ×2 (08:28→21:00)
[2021-06-06] MEDS: Folic Acid 1 MG Tablet PO (08:28)
[2021-06-06] MEDS: Metoprolol(XL)Succ 50 MG Tablet PO (08:28)
[2021-06-06] MEDS: Thiamine Hydrochloride 100 MG Tablet PO (08:28)
[2021-06-06] MEDS: Cholecalciferol (VIT D3) 25 MCG TABLET (1,000 UNITS) PO (08:29)
[2021-06-06] MEDS: buPROPion (SR) 150 MG Tablet.SA PO ×2 (08:29→20:59)
--- NOTE | 2021-06-06 12:23 | PCM.PN.HOSP ---
Documented by User: Tacos KELLER 06/06/21 12:33 Subjective Subjective Patient is a 66-year-old male comfortably resting in bed, alert and orient x3. Patient denies development of any new symptoms overnight. Does not appear in acute distress. Objective Data Objective Data Vital Signs: Vital Signs Temp Pulse Resp BP Pulse Ox 98.4 F 86 18 110/62 95 06/06/21 10:00 06/06/21 10:00 06/06/21 10:00 06/06/21 10:00 06/06/21 10:00 Oxygen Delivery Method Room Air Weight: 159 lb 9.835 oz Body Mass Index (BMI) 22.3 Lab / Micro Data Result Diagrams: 06/05/21 16:10 06/06/21 06:21 Labs: Laboratory Results - last 24 hr 06/05/21 15:54: Urine Opiates Screen POSITIVE H, Urine Methadone Screen NEGATIVE, Ur Barbiturates Screen NEGATIVE, Ur Phencyclidine Scrn NEGATIVE, Ur Amphetamines Screen NEGATIVE, U Methamphetamin-MDMA POSITIVE H, U Benzodiazepines Scrn NEGATIVE, Urine Cocaine Screen NEGATIVE, U Cannabinoids Screen NEGATIVE, Ur Drug Screen Comment 06/05/21 16:10: WBC 8.1, RBC 3.74 L, Hgb 12.0 L, Hct 36.0 L, MCV 96.3 H, MCH 32.1 H, MCHC 33.3, RDW Std Deviation 49.1 H, RDW Coeff of Luciana 14.0, Plt Count 183, MPV 11.0, Immature Gran % (Auto) 0.700, Neut % (Auto) 68.7, Lymph % (Auto) 20.4, [place] % (Auto) 8.3, Eos % (Auto) 1.4, Baso % (Auto) 0.5, Absolute Neuts (auto) 5.6, Absolute Lymphs (auto) 1.66, Nucleated RBC % 0 06/05/21 16:10: Sodium 139, Potassium 4.0, Chloride 106, Carbon Dioxide 26.0, Anion Gap 7, BUN 11, Creatinine 0.93, Estim Creat Clear Calc 83.22, Est GFR (MDRD) Af Amer 104, Est GFR (MDRD) Non-Af 86, BUN/Creatinine Ratio 11.8, Glucose 72 L, Calcium 8.8, Total Bilirubin 0.60, AST 37, ALT 39, Alkaline Phosphatase 54, Total Protein 7.6, Albumin 3.8, Globulin 3.8, Albumin/Globulin Ratio 1.0, Lipase 56 L 06/05/21 16:10: Ethyl Alcohol 110.0 06/05/21 16:10: PT 27.3 H, INR 2.6, APTT 61.8 H 06/05/21 16:10: Phosphorus 3.1, Magnesium 1.9 06/06/21 06:21: Sodium 141, Potassium 3.8, Chloride 109 H, Carbon Dioxide 27.0, Anion Gap 5, BUN 12, Creatinine 0.74, Estim Creat Clear Calc 74.41, Est GFR (MDRD) Af Amer 137, Est GFR (MDRD) Non-Af 113, BUN/Creatinine Ratio 16.3, Glucose 80, Calcium 8.2 L, Total Bilirubin 0.60, AST 30, ALT 31, Alkaline Phosphatase 45, Total Protein 6.2 L, Albumin 3.1 L, Globulin 3.1, Albumin/Globulin Ratio 1.0 06/06/21 06:21: PT 30.5 H, INR 3.0 Micro: Microbiology 06/05/21 16:11 Nasal Secretion SARS-CoV-2 Antigen (Rapid) - Final Physical Exam Const alert, oriented x3 and no apparent distress HEENT head/scalp atraumatic, moist oral mucous membranes and oropharynx normal Head and Scalp: normocephalic Eyes PERRL, EOMs intact bilaterally and conjunctivae normal Neck no lymphadenopathy, supple and no JVD Resp normal respiratory effort, no retractions and no use of accessory muscles Cardio regular rate, regular rhythm, no murmurs and no JVD GI normal to inspection, nondistended, normoactive bowel sounds, soft to palpation and non-tender Extremity normal to inspection, full ROM and no clubbing, cyanosis or edema Skin no rashes or lesions noted, no wounds and skin turgor normal Neuro CN's II-XII intact bilaterally Psych affect normal Assessment & Plan Assessment/Plan (1) Alcohol withdrawal: PLAN: Day 1 Discharge planning: Current plan is for patient to discharge home and follow-up with [facility] for us as an outpatient. 1) acute alcohol withdrawal Patient complains of nor does he demonstrate any withdrawal symptoms on my evaluation. CIWA score is 4. Continue phenobarbital taper as well as folic acid and thiamine supplementation. As needed medications ordered. 2) paroxysmal atrial fibrillation Patient is rate controlled on metoprolol and is anticoagulated on warfarin. Continue home medications. 3) HTN/HLD Continue metoprolol and statin. 4) depression/anxiety Continue bupropion, trazodone and doxepin. 5) hypothyroidism Continue Synthroid. 6) BPH Continue Flomax. 7) chronic pain disorder Follows with Dr. Sanchez. Continue Vicodin and tizanidine. DVT prophylaxis - warfarin Patient seen by Tacos Batista PA-C, under the supervision of Dr. Vogt. Time spent on patient care: 8 minutes. Documented by User: Dr. Brandin Vogt MD 06/06/21 17:54 Objective Data Lab / Micro Data Result Diagrams: 06/05/21 16:10 06/06/21 06:21 Charges/Coding Addendum Addendum: Dr. Vogt: I personally reviewed the chart and examined the patient, and agree with the above findings. Six 6-year-old male with a history of hypertension, A. fib, hypothyroidism, anxiety/depression presents to the hospital wiring alcohol withdrawal detox and stabilization. We will continue with the alcohol withdrawal protocol, he does seem to be doing decently well today. Currently his CIWA scores are 2. He denies any current issues with his other chronic medical conditions. I discussed with him that generally alcohol withdrawal takes about 3 days however it can take longer and some people he expressed understanding and states that he is willing to stay as long as he needs to. We will have him follow-up with [facility] as an outpatient when he is stable. Of note we will continue to monitor his INR. Clinical care time spent in outpatient care activities: 18 minutes Visit Charges Inpatient E&M: 66814 Subs Hosp L2
--- NOTE | 2021-06-06 13:55 | ADDICTION ---
This verse writer met with PT to conduct ASAM, MSE, AUDIT assessments and to plan for d/c. PT A+Ox4 and participated actively. All assessments completed and placed in PT's chart. PT plans to f/u with [facility] for follow-up treatment services. PT did not indicate a need for transportation post d/c from [facility].
[2021-06-06] MEDS: DOXEPIN HCL 50 MG CAPSULE 150 MG PO (20:59)
[2021-06-06] MEDS: Atorvastatin Calcium 40 MG Tablet PO (21:00)
[2021-06-06] MEDS: traZODone 100 MG Tablet 200 MG PO (21:00)
[2021-06-07] VITALS (8 sets, daily range): BP systolic 105–137; BP diastolic 63–76; PULSE 70–80; RESP 12–18; TEMP 36.1–37; O2SAT 96–98
[2021-06-07] MEDS: Phenobarbital 32.4 MG Tablet 64.8 MG PO ×6 (00:10→20:59)
[2021-06-07] MEDS: HYDROcodone Bitartrate/Apap 5/325 Tablet PO ×4 (04:02→22:01)
[2021-06-07] MEDS: Levothyroxine 100 MCG Tablet PO (05:54)
[2021-06-07 06:40] LABS: International Normalized Ratio 2.2; Prothrombin Time (Protime)PT. 23.5 SECONDS (11.7-14.9)
[2021-06-07] MEDS: Cholecalciferol (VIT D3) 25 MCG TABLET (1,000 UNITS) PO (07:57)
[2021-06-07] MEDS: buPROPion (SR) 150 MG Tablet.SA PO ×2 (07:57→21:01)
[2021-06-07] MEDS: Metoprolol(XL)Succ 50 MG Tablet PO (07:57)
[2021-06-07] MEDS: Folic Acid 1 MG Tablet PO (07:58)
[2021-06-07] MEDS: Tamsulosin HCl 0.4 MG Capsule PO ×2 (07:58→21:00)
[2021-06-07] MEDS: Thiamine Hydrochloride 100 MG Tablet PO (07:58)
--- NOTE | 2021-06-07 11:34 | PN.HOSP_ITS ---
Documented by User: Tacos KELLER 06/07/21 11:40 Subjective Subjective Patient is a 66-year-old male comfortably resting in bed, alert and orient x3. Patient denies development of any new symptoms overnight. Does not appear in acute distress. Objective Data Objective Data Vital Signs: Vital Signs Temp Pulse Resp BP Pulse Ox 97 F L 70 18 124/69 H 97 06/07/21 10:00 06/07/21 10:00 06/07/21 10:00 06/07/21 10:00 06/07/21 10:00 Oxygen Delivery Method Room Air Weight: 159 lb 9.835 oz Body Mass Index (BMI) 22.3 Intake & Output: Intake and Output for Last 24 Hours 06/05/21 06/06/21 06/07/21 23:59 23:59 23:59 Intake Total 300 / 300 Balance 300 / 300 Lab / Micro Data Result Diagrams: 06/05/21 16:10 06/06/21 06:21 Labs: Laboratory Results - last 24 hr 06/07/21 06:17: PT 23.5 H, INR 2.2 Micro: Microbiology 06/05/21 16:11 Nasal Secretion SARS-CoV-2 Antigen (Rapid) - Final Physical Exam Const alert, oriented x3 and no apparent distress HEENT head/scalp atraumatic and moist oral mucous membranes Head and Scalp: normocephalic Eyes PERRL, EOMs intact bilaterally and conjunctivae normal Neck no lymphadenopathy, supple and no JVD Resp normal respiratory effort, no retractions and no use of accessory muscles Cardio regular rate, regular rhythm and no JVD GI normal to inspection, nondistended, normoactive bowel sounds, soft to palpation and non-tender Extremity normal to inspection, full ROM and no clubbing, cyanosis or edema Skin no rashes or lesions noted, no wounds and skin turgor normal Neuro CN's II-XII intact bilaterally Psych affect normal Assessment & Plan Assessment/Plan (1) Alcohol withdrawal: PLAN: Day 2 Discharge planning: Current plan is for patient to discharge home and follow-up with [facility] for us as an outpatient. 1) acute alcohol withdrawal Patient does not complaint of nor does he demonstrate any withdrawal symptoms on my evaluation. CIWA score is 0. Continue phenobarbital taper as well as folic acid and thiamine supplementation. As needed medications ordered. 2) paroxysmal atrial fibrillation Patient is rate controlled on metoprolol and is anticoagulated on warfarin. Continue home medications. 3) HTN/HLD Continue metoprolol and statin. 4) depression/anxiety Continue bupropion, trazodone and doxepin. 5) hypothyroidism Continue Synthroid. 6) BPH Continue Flomax. 7) chronic pain disorder Follows with Dr. Sanchez. Continue Vicodin and tizanidine. DVT prophylaxis - warfarin Patient seen by Tacos Batista PA-C, under the supervision of Dr. Vogt. Time spent on patient care: 7 minutes. Documented by User: Dr. Brandin Vogt MD 06/07/21 15:48 Objective Data Lab / Micro Data Result Diagrams: 06/05/21 16:10 06/06/21 06:21 Charges/Coding Addendum Addendum: Dr. Votg: I personally reviewed the chart and examined the patient, and agree with the above findings. Six 6-year-old male with a history of hypertension, A. fib, hypothyroidism, anxiety/depression presents to the hospital wiring alcohol withdrawal detox and stabilization. We will continue with the alcohol withdrawal protocol, he does seem to be doing decently well today. Currently his CIWA scores are 2. He denies any current issues with his other chronic medical conditions. I discussed with him that generally alcohol withdrawal takes about 3 days however it can take longer and some people he expressed understanding and states that he is willing to stay as long as he needs to. We will have him follow-up with 180 as an outpatient when he is stable. Of note we will continue to monitor his INR. Clinical care time spent in outpatient care activities: 18 minutes 06/07/2021: Doing well, no issues overnight. CIWA scores today of 0. We will continue to monitor for 1 more day he will follow-up with 180 as an outpatient. Clinical time spent in patient care activities: 10 minutes Visit Charges Inpatient E&M: [id number] [facility] Hosp L1
[2021-06-07] MEDS: Albuterol 2.5 MG/3 ML VIAL.NEB. INHALATION ×2 (15:29→20:44)
[2021-06-07] MEDS: hydrOXYzine PAM 25 MG Capsule 50 MG PO (20:59)
[2021-06-07] MEDS: Gabapentin 300 MG Capsule PO (20:59)
[2021-06-07] MEDS: traZODone 100 MG Tablet 200 MG PO (21:00)
[2021-06-07] MEDS: Atorvastatin Calcium 40 MG Tablet PO (21:00)
[2021-06-07] MEDS: DOXEPIN HCL 50 MG CAPSULE 150 MG PO (21:00)
[2021-06-08] MEDS: Phenobarbital 32.4 MG Tablet 64.8 MG PO ×3 (00:19→09:17)
[2021-06-08 04:00] VITALS: BP 126/85; PULSE 70; RESP 18; TEMP 36.3; O2SAT 95
[2021-06-08] MEDS: Levothyroxine 100 MCG Tablet PO (04:33)
[2021-06-08] MEDS: HYDROcodone Bitartrate/Apap 5/325 Tablet PO ×2 (04:33→09:16)
[2021-06-08 06:36] LABS: International Normalized Ratio 1.8
[2021-06-08 06:47] VITALS: PULSE 73; RESP 18; O2SAT 100
[2021-06-08] MEDS: Albuterol 2.5 MG/3 ML VIAL.NEB. INHALATION (06:47)
[2021-06-08 09:03] VITALS: PULSE 88
[2021-06-08] MEDS: Tamsulosin HCl 0.4 MG Capsule PO (09:03)
[2021-06-08] MEDS: Folic Acid 1 MG Tablet PO (09:03)
[2021-06-08] MEDS: Cholecalciferol (VIT D3) 25 MCG TABLET (1,000 UNITS) PO (09:03)
[2021-06-08] MEDS: Thiamine Hydrochloride 100 MG Tablet PO (09:03)
[2021-06-08] MEDS: Metoprolol(XL)Succ 50 MG Tablet PO (09:03)
[2021-06-08] MEDS: buPROPion (SR) 150 MG Tablet.SA PO (09:03)
[2021-06-08] MEDS: hydrOXYzine PAM 25 MG Capsule 50 MG PO (09:16)
--- NOTE | 2021-06-08 09:35 | PCM.DC ---
Discharge Instructions Diet Discharge Diet: No restrictions Activity Discharge Activity: Return to Normal Activity Weight Bearing Status: Weight bearing as tolerated Dressing / Incision Call your doctor if you observe: Fever of 101 or Higher, Numbness or Tingling, Shortness of breath, Dizziness, Chest pain, Increased palpitations (irregular heartbeat) and Calf discomfort Follow Up Care Please Follow Up With: Primary care provider When: Within the next two weeks. Test Results: Test results from this visit will be discussed in further detail at your follow-up appointment, if applicable. Discharge Plan Admission Admit Date/Time: 06/05/21 17:25 Primary Reason for Your Visit: Alcohol withdrawal Attending Provider: Brandin Vogt Primary Care Provider: Fracisco Carvalho Chi Instructions Additional Instructions / Restrictions: * Follow up with you scheduled 180 outpatient on discharge from the hospital. Discharge Orders/Prescriptions Prescriptions: Continued trazodone 100 mg tablet 200 mg PO QHS RF: 0 albuterol sulfate [ProAir HFA] 90 mcg/actuation HFA aerosol inhaler 2 puff INHALATION Q4H RF: 0 bupropion HCl (smoking deter) 150 mg tablet extended release 12 hr 150 mg PO BID RF: 0 potassium 99 mg tablet 99 mg PO DAILY RF: 0 doxepin 150 mg capsule 150 mg PO QHS RF: 0 tamsulosin 0.4 mg capsule 0.4 mg PO BID RF: 0 hydrocodone-acetaminophen 5-325 mg tablet 1 tab PO 4X/DAY RF: 0 levothyroxine 100 mcg tablet 100 mcg PO DAILY RF: 0 warfarin 2.5 mg tablet 2.5 mg PO DAILY RF: 0 cholecalciferol (vitamin D3) 50 mcg (2,000 unit) tablet 100 mcg PO DAILY RF: 0 tizanidine 4 mg tablet 4 mg PO QHS RF: 0 atorvastatin 40 mg tablet 40 mg PO QHS RF: 0 metoprolol succinate 50 mg tablet extended release 24 hr 50 mg PO DAILY RF: 0 Referrals / Follow Up: Fracisco Carvalho Chi, MD [Primary Care Provider] - Within 2 Weeks Disposition Disposition (needs filled in before D/C Order can be placed): Home, Self Care
[2021-06-08 09:36] VITALS: BP 136/76; PULSE 70; RESP 16; TEMP 36.4; O2SAT 96
--- NOTE | 2021-06-08 13:32 | DS.PCM_ITS ---
Documented by User: Tacos KELLER 06/08/21 13:35 Providers Date of Admission: 06/05/21 Primary Care Physician: Dr. Fracisco Carvalho MD Reason For Visit: ALCOHOL DETOX Diagnosis Discharge Diagnosis (1) Alcohol withdrawal: Status: Acute Code(s): F10.239 - Alcohol dependence with withdrawal, unspecified Medications at Discharge Home Medications albuterol sulfate 90 mcg/actuation aerosol inhaler 2 puff INHALATION Q4H g 07/24/17 trazodone 100 mg tablet 200 mg PO QHS tab 07/24/17 bupropion HCl (smoking deter) 150 mg tablet,12 hr sustained-release(smoking deterrent) 150 mg PO BID 09/09/17 tamsulosin 0.4 mg capsule 0.4 mg PO BID cap 09/08/18 potassium 99 mg tablet 99 mg PO DAILY tab 10/18/19 doxepin 150 mg capsule 150 mg PO QHS cap 12/31/20 atorvastatin 40 mg tablet 40 mg PO QHS 01/16/21 cholecalciferol (vitamin D3) 50 mcg (2,000 unit) tablet 100 mcg PO DAILY tab 01/16/21 metoprolol succinate 50 mg tablet,extended release 24 hr 50 mg PO DAILY 01/16/21 tizanidine 4 mg tablet 4 mg PO QHS 01/16/21 hydrocodone-acetaminophen 1 tab PO 4X/DAY 06/05/21 levothyroxine 100 mcg PO DAILY 06/05/21 warfarin 2.5 mg PO DAILY 06/05/21 Hospital Course Summary of Care Provided Minutes Spent on Discharge: 15 Hospital Course: Patient is a 66-year-old male who was admitted to [facility]20[facility]. Patient was initiated on phenobarbital taper taper, thiamine and folic acid supplementation as well as adjunctive medications. Patients course was uncomplicated throughout admission and CIWA scores gradually continued to decrease over course of patient's stay. On day of discharge patient CIWA score was 0 and patient denied having nor did not demonstrate any seizure-like activity, tremors or visual/auditory hallucinations. Patient met with [facility] services while admitted and schedule an outpatient follow-up. All other home medications were continued on discharge. Patient to follow-up with primary care provider within the next 2 weeks. Patient seen by Tacos Batista PA-C, under the supervision of Dr. Vogt. Physical Exam Narrative Patient is a 66-year-old male comfortably resting in bed, alert and orient x3. Patient denies development of any new symptoms overnight. Does not appear in acute distress. Const alert, oriented x3 and no apparent distress HEENT normocephalic, head/scalp atraumatic and hearing grossly normal bilaterally Eyes PERRL, EOMs intact bilaterally and conjunctivae normal Neck no lymphadenopathy, supple and no JVD Resp normal respiratory effort, no retractions, no use of accessory muscles and clear to auscultation bilaterally Cardio regular rate, regular rhythm and no JVD GI normal to inspection, nondistended, normoactive bowel sounds, soft to palpation and non-tender Extremity normal to inspection, full ROM and no clubbing, cyanosis or edema Skin no rashes or lesions noted, no wounds and skin turgor normal Neuro CN's II-XII intact bilaterally Psych affect normal Weight / BMI Weight Weight: 159 lb 9.835 oz Body Mass Index (BMI) 22.3 ABG / Lab / Microbiology Data Result Diagrams: 06/05/21 16:10 06/06/21 06:21 Laboratory: Laboratory Results - last 24 hr 06/08/21 06:05: PT 20.0 H, INR 1.8 Microbiology: Microbiology 06/05/21 16:11 Nasal Secretion SARS-CoV-2 Antigen (Rapid) - Final D/C Instructions Discharge Diet: No restrictions Weight Bearing Status: Weight bearing as tolerated Call your doctor if you observe: Fever of 101 or Higher, Numbness or Tingling, Shortness of breath, Dizziness, Chest pain, Increased palpitations (irregular heartbeat) and Calf discomfort Please Follow Up With: Primary care provider When: Within the next two weeks. Meaningful Use Info Meaningful Use Diagnoses (Choose all that apply): None applicable Discharge Plan Admission Admit Date/Time: 06/05/21 17:25 Primary Reason for Your Visit: Alcohol withdrawal Attending Provider: Brandin Vogt Primary Care Provider: Fracisco Carvalho Chi Instructions Additional Instructions / Restrictions: * Follow up with you scheduled 180 outpatient on discharge from the hospital. Discharge Orders/Prescriptions Prescriptions: Continued trazodone 100 mg tablet 200 mg PO QHS RF: 0 albuterol sulfate [ProAir HFA] 90 mcg/actuation HFA aerosol inhaler 2 puff INHALATION Q4H RF: 0 bupropion HCl (smoking deter) 150 mg tablet extended release 12 hr 150 mg PO BID RF: 0 potassium 99 mg tablet 99 mg PO DAILY RF: 0 doxepin 150 mg capsule 150 mg PO QHS RF: 0 tamsulosin 0.4 mg capsule 0.4 mg PO BID RF: 0 hydrocodone-acetaminophen 5-325 mg tablet 1 tab PO 4X/DAY RF: 0 levothyroxine 100 mcg tablet 100 mcg PO DAILY RF: 0 warfarin 2.5 mg tablet 2.5 mg PO DAILY RF: 0 cholecalciferol (vitamin D3) 50 mcg (2,000 unit) tablet 100 mcg PO DAILY RF: 0 tizanidine 4 mg tablet 4 mg PO QHS RF: 0 atorvastatin 40 mg tablet 40 mg PO QHS RF: 0 metoprolol succinate 50 mg tablet extended release 24 hr 50 mg PO DAILY RF: 0 Referrals / Follow Up: Fracisco Carvalho Chi, MD [Primary Care Provider] - Within 2 Weeks Disposition Disposition (needs filled in before D/C Order can be placed): Home, Self Care Documented by User: Dr. Brandin Vogt MD 06/08/21 13:45 Providers Date of Admission: 06/05/21 Reason For Visit: ALCOHOL DETOX Medications at Discharge Home Medications albuterol sulfate 90 mcg/actuation aerosol inhaler 2 puff INHALATION Q4H g 07/24/17 trazodone 100 mg tablet 200 mg PO QHS tab 07/24/17 bupropion HCl (smoking deter) 150 mg tablet,12 hr sustained-release(smoking deterrent) 150 mg PO BID 09/09/17 tamsulosin 0.4 mg capsule 0.4 mg PO BID cap 09/08/18 potassium 99 mg tablet 99 mg PO DAILY tab 10/18/19 doxepin 150 mg capsule 150 mg PO QHS cap 12/31/20 atorvastatin 40 mg tablet 40 mg PO QHS 01/16/21 cholecalciferol (vitamin D3) 50 mcg (2,000 unit) tablet 100 mcg PO DAILY tab 01/16/21 metoprolol succinate 50 mg tablet,extended release 24 hr 50 mg PO DAILY 01/16/21 tizanidine 4 mg tablet 4 mg PO QHS 01/16/21 hydrocodone-acetaminophen 1 tab PO 4X/DAY 06/05/21 levothyroxine 100 mcg PO DAILY 06/05/21 warfarin 2.5 mg PO DAILY 06/05/21 ABG / Lab / Microbiology Data Result Diagrams: 06/05/21 16:10 06/06/21 06:21 Discharge Plan Admission Admit Date/Time: 06/05/21 17:25 Primary Reason for Your Visit: Alcohol withdrawal Attending Provider: Brandin Vogt Primary Care Provider: Fracisco Carvalho Chi Instructions Additional Instructions / Restrictions: * Follow up with you scheduled 180 outpatient on discharge from the hospital. Discharge Orders/Prescriptions Prescriptions: Continued trazodone 100 mg tablet 200 mg PO QHS RF: 0 albuterol sulfate [ProAir HFA] 90 mcg/actuation HFA aerosol inhaler 2 puff INHALATION Q4H RF: 0 bupropion HCl (smoking deter) 150 mg tablet extended release 12 hr 150 mg PO BID RF: 0 potassium 99 mg tablet 99 mg PO DAILY RF: 0 doxepin 150 mg capsule 150 mg PO QHS RF: 0 tamsulosin 0.4 mg capsule 0.4 mg PO BID RF: 0 hydrocodone-acetaminophen 5-325 mg tablet 1 tab PO 4X/DAY RF: 0 levothyroxine 100 mcg tablet 100 mcg PO DAILY RF: 0 warfarin 2.5 mg tablet 2.5 mg PO DAILY RF: 0 cholecalciferol (vitamin D3) 50 mcg (2,000 unit) tablet 100 mcg PO DAILY RF: 0 tizanidine 4 mg tablet 4 mg PO QHS RF: 0 atorvastatin 40 mg tablet 40 mg PO QHS RF: 0 metoprolol succinate 50 mg tablet extended release 24 hr 50 mg PO DAILY RF: 0 Referrals / Follow Up: Fracisco Carvalho Chi, MD [Primary Care Provider] - Within 2 Weeks Disposition Disposition (needs filled in before D/C Order can be placed): Home, Self Care Charges/Coding Addendum Addendum: Dr. Vogt: I personally reviewed the chart and examined the patient, and agree with the above findings. Six 6-year-old male with a history of hypertension, A. fib, hypothyroidism, anxiety/depression presents to the hospital wiring alcohol w ithdrawal detox and stabilization. We will continue with the alcohol withdrawal protocol, he does seem to be doing decently well today. Currently his CIWA scores are 2. He denies any current issues with his other chronic medical conditions. I discussed with him that generally alcohol withdrawal takes about 3 days however it can take longer and some people he expressed understanding and states that he is willing to stay as long as he needs to. We will have him follow-up with 180 as an outpatient when he is stable. Of note we will continue to monitor his INR. Clinical care time spent in outpatient care activities: 18 minutes 06/07/2021: Doing well, no issues overnight. CIWA scores today of 0. We will continue to monitor for 1 more day he will follow-up with 180 as an outpatient. Clinical time spent in patient care activities: 10 minutes 06/08/2021: Doing well today, CIWA scores of 0. I discussed with him the possibility of discharge and he expressed understanding of the risk benefits of going home and would like to go home today. He states that he will not be drinking between now and following up with 180 as an outpatient. Clinical time spent in outpatient care activities: 20 minutes Visit Charges Inpatient E&M: [id number] Disch Hosp
== END 2021-06-08 09:51 | disposition home or self-care (01) | DRG 897 ==
LOC: ED 17:31 → MS3 17:45
PROVIDERS: Admitting Provider Internal Medicine; Emergency Provider Emergency Medicine; PCP Family Medicine Geriatric Medicine; Visit Provider Family Medicine
DX: F10.239 Alcohol dependence with withdrawal, unspecified (principal); F31.9 Bipolar disorder, unspecified; E03.9 Hypothyroidism, unspecified; I48.0 Paroxysmal atrial fibrillation; E78.5 Hyperlipidemia, unspecified; I10 Essential (primary) hypertension; E78.00 Pure hypercholesterolemia, unspecified; I08.1 Rheumatic disorders of both mitral and tricuspid valves; F17.210 Nicotine dependence, cigarettes, uncomplicated; F15.90 Other stimulant use, unspecified, uncomplicated; F41.9 Anxiety disorder, unspecified; N40.0 Benign prostatic hyperplasia without lower urinary tract symptoms; Z95.0 Presence of cardiac pacemaker; Z79.01 Long term (current) use of anticoagulants; Y90.5 Blood alcohol level of 100-119 mg/100 ml; G89.29 Other chronic pain
CPT/HCPCS: 36415; 80048; 80053; 80307; 82077; 83690; 83735; 84100; 85025; 85610; 85730; 87426; 93005; 94640; 99251; 99284; A4216; G0463

== ENCOUNTER 2021-07-19 07:43 | Outpatient (RCR) | payer MEDICARE, BC, SELFPAY ==
[2021-06-17 22:16] VITALS: BMI 23.1
[2021-07-19 08:39] LABS: International Normalized Ratio 3.3; Prothrombin Time (Protime)PT. 33.1 SECONDS (11.7-14.9)
== END 2021-08-15 18:00 | disposition home or self-care (01) ==
LOC: LAB 07:43
PROVIDERS: Family Provider Family Medicine Geriatric Medicine; PCP Family Medicine Geriatric Medicine; Referring Provider Internal Medicine Cardiovascular Disease; Visit Provider Internal Medicine Cardiovascular Disease
DX: Z79.01 Long term (current) use of anticoagulants (principal)
CPT/HCPCS: 36415; 85610

== ENCOUNTER 2021-07-22 09:52 | Outpatient (CLI) | payer MEDICARE, BC, SELFPAY | END 2021-07-22 23:59 | disposition home or self-care (01) | PROVIDERS: PCP Family Medicine Geriatric Medicine; Referring Provider Family Medicine Geriatric Medicine; Visit Provider Family Medicine Geriatric Medicine | DX: R68.83 Chills (without fever) (principal); Z20.822 Contact with and (suspected) exposure to COVID-19 | CPT/HCPCS: 87635; 87804; 87807; C9803; U0003; U0005 ==

== ENCOUNTER 2021-07-30 10:42 | Outpatient (CLI) | payer MEDICARE, BC, SELFPAY ==
[2021-07-30 11:25] LABS: Amphetamine Urine VISTA NEGATIVE (<1000 ng/mL); Barbiturate Urine VISTA NEGATIVE (< 200 ng/mL); Benzodiazepine Urine VISTA NEGATIVE (< 200 ng/mL); Cocaine Urine VISTA NEGATIVE (< 300 ng/mL); Ecstacy Urine VISTA POSITIVE (< 500 ng/mL); Methadone Urine VISTA NEGATIVE (< 300 ng/mL); PCP Urine VISTA NEGATIVE (< 25 ng/mL); THC Urine VISTA NEGATIVE (< 50 ng/mL); Vista UDS pH Range 6
== END 2021-07-30 23:59 | disposition home or self-care (01) ==
LOC: LAB 10:44
PROVIDERS: PCP Family Medicine Geriatric Medicine; Referring Provider Anesthesiology Pain Medicine; Visit Provider Anesthesiology Pain Medicine
DX: F11.20 Opioid dependence, uncomplicated (principal)
CPT/HCPCS: 80307

== ENCOUNTER 2021-09-23 08:12 | Outpatient (RCR) | payer MEDICARE, BC, SELFPAY ==
[2021-08-16 01:02] VITALS: BMI 23.1
[2021-09-23 09:15] LABS: International Normalized Ratio 2.3; Prothrombin Time (Protime)PT. 25.1 SECONDS (11.7-14.9)
== END 2021-09-23 18:00 | disposition home or self-care (01) ==
LOC: LAB 08:12
PROVIDERS: Family Provider Family Medicine Geriatric Medicine; PCP Family Medicine Geriatric Medicine; Referring Provider Internal Medicine Cardiovascular Disease; Visit Provider Internal Medicine Cardiovascular Disease
DX: Z79.01 Long term (current) use of anticoagulants (principal)
CPT/HCPCS: 36415; 85610

== ENCOUNTER 2021-10-01 10:36 | Observation (INO) | payer MEDICARE, BC, SELFPAY ==
[2021-10-01] VITALS (11 sets, daily range): BP systolic 65–115; BP diastolic 48–66; PULSE 69–104; RESP 16–25; TEMP 36.4–37.1; O2SAT 94–100; BMI 24.1; BMI 22.9
[2021-10-01] MEDS: 0.9% Normal Saline 1,000 ML 1000 ML IV ×2 (10:36→11:40)
[2021-10-01] MEDS: tiZANidine HCl 2 MG Tablet 4 MG PO (10:44)
--- NOTE | 2021-10-01 11:04 | EKG12_ITS ---
Test Reason : RR Blood Pressure : / mmHG Vent. Rate : 104 BPM Atrial Rate : 104 BPM P-R Int : 000 ms QRS Dur : 182 ms QT Int : 434 ms P-R-T Axes : 000 -75 092 degrees QTc Int : 570 ms Ventricular-paced rhythm Abnormal ECG Confirmed by SIRISHA FINLEY, GHULAM ([id number]), industrial editor ALESHA WALDEN ([id number]) on 10/02/2021 10:46:39 AM Referred By: Confirmed By:GHULAM GRIMM MD
--- NOTE | 2021-10-01 11:05 | EX.ED.DYSGE1 ---
HPI History of Present Illness Chief Complaint: Syncope Detail of Chief Complaint: Near syncope that occurred prior to arrival in the emergency department. Informant: patient Narrative Narrative: Patient was at the hospital seeing his primary care physician and coming down the elevator when he started feeling lightheaded and dizzy. Patient felt like he was in a pass out so he tried to lay down get his head between his legs. A rapid response was called as somebody thought that he might be having a seizure. Nobody witnessed seizure activity and patient has no seizure history. Patient does not believe that he completely passed out. Patient states has been sick for about a week with cough and that he took an home COVID test that was negative. Patient received Rocephin as well as Kenalog and booster for COVID in the office today. Patient denies any chest pain. He denies headache currently. Patient is on Coumadin for history of A. fib. 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 Nonrheumatic mitral valve regurgitation Other peripheral vascular disease Paroxysmal atrial fibrillation Pure hypercholesterolemia Sick sinus syndrome Sleep apnea Smoker Syncope Tobacco use disorder Home Medications albuterol sulfate 90 mcg/actuation aerosol inhaler 2 puff INHALATION Q4H g 07/24/17 [History Last Taken 06/05/21] trazodone 100 mg tablet 200 mg PO QHS tab 07/24/17 [History Last Taken 06/04/21] bupropion HCl (smoking deter) 150 mg tablet,12 hr sustained-release(smoking deterrent) 150 mg PO BID 09/09/17 [History Last Taken 06/05/21] tamsulosin 0.4 mg capsule 0.4 mg PO BID cap 09/08/18 [History Last Taken 06/05/21] cholecalciferol (vitamin D3) 50 mcg (2,000 unit) tablet 100 mcg PO DAILY tab 01/16/21 [History Last Taken 06/05/21] tizanidine 4 mg tablet 4 mg PO QHS 01/16/21 [History Last Taken 06/04/21] hydrocodone-acetaminophen 1 tab PO 4X/DAY 06/05/21 [History Last Taken 06/05/21] levothyroxine 100 mcg PO DAILY 06/05/21 [History Last Taken 06/04/21] aspirin 81 mg tablet,delayed release 81 mg PO DAILY 07/25/21 [History Last Taken Unknown] atorvastatin 40 mg tablet 40 mg PO QHS tab 07/25/21 [History Last Taken Unknown] metoprolol succinate 50 mg tablet,extended release 24 hr 50 mg PO DAILY tablet 07/25/21 [History Last Taken Unknown] potassium 99 mg tablet 550 mg PO DAILY tab 07/25/21 [History Last Taken Unknown] amoxicillin 500 mg capsule 2,000 mg PO .COMPLEX #20 cap 08/14/21 [Rx Last Taken Unknown] warfarin 2.5 mg tablet 2.5 mg PO DAILY #90 tab 09/23/21 [Rx Last Taken Unknown] Allergy/AdvReac Type Severity Reaction Status Date / Time No Known Allergies Allergy Verified 10/01/21 10:42 Family History (Reviewed 07/25/21 @ 08:41 by Evangelina Marina PRODUCTION SUPERINTENDENT HYDRO, PRODUCTION SUPERINTENDENT HYDRO-C) Grandfather CAD (coronary artery disease) Father CAD (coronary artery disease) Hx of CABG Surgical History History of appendectomy History of hernia repair History of mitral valve replacement History of mitral valve replacement with bioprosthetic valve (07/27/14) History of shoulder surgery History of tricuspid valve repair (~07/27/14) History of tricuspid valve repair (~07/27/14) Social History (Reviewed 07/25/21 @ 08:41 by Evangelina Marina PRODUCTION SUPERINTENDENT HYDRO, PRODUCTION SUPERINTENDENT HYDRO-C) Smoking Status: Current every day smoker tobacco type: cigars alcohol intake: current details: occasional substance use type: former substance user, crack/cocaine and heroin ROS ROS ED Constitutional Constitutional ED: Reports systems reviewed and no addt'l complaints, except as documented; Denies body ache(s), change in weight or chills Eyes Eyes: Denies acute decrease in peripheral vision, change in vision, double vision or loss of vision ENT ENT ED: Reports none; Denies ear pain, lip swelling, loss taste/smell, neck pain, otalgia or sore throat Cardiovascular Cardiovascular: Reports none; Denies abdominal pain, chest pain with activity, leg edema, lightheadedness, palpitations, rapid heart rate or syncope Respiratory/Chest Respiratory/Chest: Reports none, cough, dyspnea and sputum; Denies change in mental status, dry cough, hemoptysis, shortness of breath at rest or shortness of breath with exertion Gastrointestinal Gastrointestinal: Reports none; Denies abdominal pain, change in stool character, diarrhea, hematemesis, hematochezia, melena, rectal bleeding or vomiting Genitourinary Genitourinary ED: Reports none; Denies abdominal discomfort, anuria, dysuria, genital pain or polyuria Musculoskeletal Musculoskeletal: Reports none; Denies arthralgias, back pain, difficulty walking, extremity pain, muscle weakness or myalgias Integumentary Reports none; Denies abscess or rash Neurologic Neurologic: Reports none and other Details: Near syncope ; Denies abnormal gait, confusion, focal weakness, frequent falls, headache(s), loss of vision, numbness, paresthesias, radicular pain, vertigo or weakness Psychiatric Psychiatric: Reports systems reviewed and no addt'l complaints, except as documented and none; Denies behavioral changes, confusion, difficulty concentrating, hallucinations, suicidal ideation, tactile hallucinations or visual hallucinations Endocrine Endocrinology: Denies none, cold intolerance, excessive sweating, fatigue or heat intolerance Hematologic/Lymphatic Hematologic/Lymphatic: Reports none; Denies anemia, easy bleeding or easy bruising Allergic/Immunologic Allergic/Immunologic ED: Denies as per HPI, none, lip swelling, mouth swelling, throat swelling, tongue swelling or hives EXAM Physical Exam Const Vital Signs: 10/01/21 10:37 10/01/21 11:01 10/01/21 11:04 Temperature 97.6 F L Temperature Source Temporal Pulse Rate 104 H Respiratory Rate 25 H Blood Pressure 65/48 L 80/55 L Blood Pressure Mean 53 63 Pulse Ox 98 94 Oxygen Delivery Method Non-Rebreather Nasal Cannula Oxygen Flow Rate (L/min) 15 4 10/01/21 11:31 Temperature Temperature Source Pulse Rate Respiratory Rate Blood Pressure 89/57 L Blood Pressure Mean 67 Pulse Ox Oxygen Delivery Method Oxygen Flow Rate (L/min) Positive well nourished and well developed General Appearance ED: well developed and NAD HEENT Reports TM's clear and moist mucous membranes normocephalic and atraumatic; Negative for trauma or tenderness Tympanic Membrane ED: Yes TM's clear Eyes PERRL and EOMs intact bilaterally General Eye ED: Negative for pale conjunctiva or scleral icterus Neck no lymphadenopathy, supple and no JVD General: Negative for tenderness Chest Wall inspection of chest normal and palpation of chest normal Chest: Negative for tenderness Resp normal respiratory effort and clear to auscultation bilaterally Resp Narrative: Coarse breath sounds bilaterally. No accessory muscle use or retractions. Effort and Inspection: Negative for respiratory distress or pain with movement Auscultation: rhonchi; Negative for wheezes or diminished lung sounds Cardio regular rate, regular rhythm, S1 normal heart sound, S2 normal heart sound and no murmurs Peripheral Pulses: pulses 2+ throughout GI normal to inspection, nondistended, normoactive bowel sounds, soft to palpation, non-tender, non-distended and no masses Back/Spine no CVA tenderness and no thoracic nor lumbar tenderness Extremity normal to inspection General Extremety ED: Negative for edema General Extremity: Negative for edema Neuro oriented x3, CN's II-XII intact bilaterally, no sensory deficits noted and gait normal Sensorium / Orientation: awake, alert, oriented to person, oriented to place and oriented to time Motor Exam: strength 5/5 throughout and strength abnormal Psych mental status grossly normal Skin no rashes or lesions noted and no wounds MDM MDM MDM Narrative Medical decision making narrative: IV line established on arrival. Patient was given a liter normal saline fluid bolus followed by second liter. Lab work-up was unremarkable. EKG showed a paced rhythm with a rate of 104 bpm. COVID test was negative. Case discussed with hospitalist will evaluate patient for admission for IV fluids and observation. Lab Data Attestation: I reviewed the patient's lab results. Labs: Laboratory Results - last 24 hr 10/01/21 10/01/21 10/01/21 10:30 10:30 10:30 WBC 8.9 RBC 4.80 Hgb 15.3 Hct 45.9 MCV 95.6 H MCH 31.9 MCHC 33.3 RDW Std Deviation 51.3 H RDW Coeff of Lu[place]ana 14.6 Plt Count 247 MPV 10.8 Immature Gran % (Auto) 3.400 H Neut % (Auto) 61.1 Lymph % (Auto) 31.3 Reynolds % (Auto) 3.0 Eos % (Auto) 0.8 Baso % (Auto) 0.4 Absolute Neuts (auto) 5.4 Absolute Lymphs (auto) 2.78 Nucleated RBC % 0 Differential Comment SCANNED PT INR Sodium 139 Potassium 3.7 Chloride 108 H Carbon Dioxide 24.0 Anion Gap 7 BUN 13 Creatinine 0.96 Estim Creat Clear Calc 78.15 Est GFR (MDRD) Af Amer 100 Est GFR (MDRD) Non-Af 83 BUN/Creatinine Ratio 13.5 Glucose 139 H Lactic Acid 1.6 Calcium 8.4 L Troponin I High Sens 10 10/01/21 10:30 WBC RBC Hgb Hct MCV MCH MCHC RDW Std Deviation RDW Coeff of Luciana Plt Count MPV Immature Gran % (Auto) Neut % (Auto) Lymph % (Auto) Reynolds % (Auto) Eos % (Auto) Baso % (Auto) Absolute Neuts (auto) Absolute Lymphs (auto) Nucleated RBC % Differential Comment PT 36.0 H INR 3.7 Sodium Potassium Chloride Carbon Dioxide Anion Gap BUN Creatinine Estim Creat Clear Calc Est GFR (MDRD) Af Amer Est GFR (MDRD) Non-Af BUN/Creatinine Ratio Glucose Lactic Acid Calcium Troponin I High Sens Radiography Diagnostic Testing: Clinical Impression(s) from Imaging Studies Chest X-Ray 10/01/21 11:38 IMPRESSION: Hyperinflation. Stable examination. Electronically Signed: Damien Medellin MD at 12:09 EDT , 1 view chest x-ray obtained interpreted by myself no acute disease process. Radiology in agreement however they did note hyperinflation EKG Initial EKG: Attestation: I personally reviewed and interpreted this EKG as follows: Comments: Ventricularly paced rhythm with a rate of 104 bpm Discharge Plan Triage Chief Complaint: Syncope Other Complaint: Seizure ED Provider: Bruna Santiago Dx/Rx/DC Orders Clinical Impression: Acute hypotension, Near syncope, URI, acute Prescriptions: No Action trazodone 100 mg tablet 200 mg PO QHS RF: 0 albuterol sulfate [ProAir HFA] 90 mcg/actuation HFA aerosol inhaler 2 puff INHALATION Q4H RF: 0 bupropion HCl (smoking deter) 150 mg tablet extended release 12 hr 150 mg PO BID RF: 0 potassium 99 mg tablet 550 mg PO DAILY RF: 0 aspirin [Adult Aspirin Regimen] 81 mg tablet,delayed release (DR/EC) 81 mg PO DAILY RF: 0 metoprolol succinate 50 mg tablet extended release 24 hr 50 mg PO DAILY RF: 0 tamsulosin 0.4 mg capsule 0.4 mg PO BID RF: 0 hydrocodone-acetaminophen 5-325 mg tablet 1 tab PO 4X/DAY RF: 0 levothyroxine 100 mcg tablet 100 mcg PO DAILY RF: 0 cholecalciferol (vitamin D3) 50 mcg (2,000 unit) tablet 100 mcg PO DAILY RF: 0 tizanidine 4 mg tablet 4 mg PO QHS RF: 0 atorvastatin 40 mg tablet 40 mg PO QHS RF: 0 amoxicillin 500 mg capsule 2,000 mg PO .COMPLEX Qty: 20 RF: 3 warfarin 2.5 mg tablet 2.5 mg PO DAILY Qty: 90 RF: 3 Primary Care Provider: Fracisco Carvalho Chi Referrals: Fracisco Carvalho Chi, MD [Primary Care Provider] - Disposition Disposition: Acute Care Hospital [facility]
--- NOTE | 2021-10-01 11:38 | RAD_ITS ---
STUDY: X-RAY CHEST REASON FOR EXAM: Male, 66 years old. Cough TECHNIQUE: Single AP portable view of the chest. COMPARISON: Comparison is made with prior study 11/29/2018. FINDINGS: EKG electrodes are seen. There is hyperinflation of the lungs consistent with chronic obstructive lung disease (COPD). Stable mild linear scarring at the lung bases. There is no demonstrated pleural abnormality. Sternal cerclage wires are present from a prior sternotomy. The patient is status post mitral valve replacement. A left-sided dual-chamber pacemaker is seen. Normal mediastinum and sylvia. Normal visualized pulmonary arteries. There is atherosclerotic calcification of the aortic arch with tortuosity. There are degenerative changes of the visualized thoracic spine. Normal visualized ribs, clavicles, and shoulders. There is no demonstrated abnormality of the visualized soft tissue structures of the upper abdomen. RAD/Chest 1 View (Portable) IMPRESSION: Hyperinflation. Stable examination. Electronically Signed: Damien Medellin MD at 12:09 EDT ,
[2021-10-01 11:43] LABS: Absolute Lymphocyte Count 2.78 X10^3/uL (0.83-4.51); Absolute Neutrophil Count 5.4 X10^3/uL (2.0-7.7); Basophil# 0.04 X10^3/uL; Basophil% 0.4 % (0-1); Eosinophil# 0.07 X10^3/uL; Eosinophils% 0.8 % (0-5); Hematocrit 45.9 % (40-54); Hemoglobin 15.3 g/dL (13.0-16.5); Lymphocyte # 2.78 X10^3/ul (0.83-4.51); Lymphocyte % 31.3 % (19-41); Mean Corp Hgb Conc 33.3 g/dL (32-36); Mean Corpuscular Hgb 31.9 pg (27.0-32.0); Mean Corpuscular Volume 95.6 fL (80-94); Mean Platelet Vol. 10.8 fl (6.2-12.0); Monocyte# 0.27 X10^3/uL; NRBC Flagged by Analyzer 0 % (0-5); Neutrophil # 5.43 X10^3/uL (2.7-7.7); Neutrophil % 61.1 % (47-70); POSITIVE MORPHOLOGY YES; Platelet Count 247 K/mm3 (150-450); RBC Distribution Width CV 14.6 % (11.6-14.6); RBC Distribution Width SD 51.3 fl (35.1-43.9); White Blood Count 8.9 K/mm3 (4.4-11.0)
[2021-10-01 11:48] LABS: Differential Indicated SCAN CRITERIA MET
[2021-10-01 11:49] LABS: International Normalized Ratio 3.7
[2021-10-01 11:58] LABS: Anion Gap 7 (5-15); BUN 13 mg/dL (7-18); BUN/Creat Ratio 13.5 RATIO (10-20); Calcium,Total 8.4 mg/dL (8.5-10.1); Chloride 108 mmol/L (98-107); Creatinine, Serum 0.96 mg/dL (0.70-1.30); EST Glomerular Filtration Rate 83 mL/min (>60); Est Glom Filt Rate - Afr Amer 100 mL/min (>60); Estimated Creatinine Clearance 78.15 ml/min; Glucose 139 mg/dL (74-106); Potassium 3.7 mmol/L (3.5-5.1); Sodium Level 139 mmol/L (136-145); Troponin-I HS 10 pg/mL (3.0-78.0)
[2021-10-01 12:12] LABS: Lactic Acid 1.6 mmol/L (0.4-1.9)
[2021-10-01 12:15] LABS: Differential Comment SCANNED
--- NOTE | 2021-10-01 12:38 | HP.PCM.HOS_ITS ---
HPI - General General Date of Admission: 10/01/21 Date of Service: 10/01/21 Chief Complaint: Near fainting spell HPI Narrative BRIANNE VALLE, is a 66 M who presents with near fainting spell. Patient reports shortness of breath days prior to his admission. Patient was seen in his primary care physician's office Dr. Carvalho. He apparently did receive Kenalog and IM Rocephin for suspected pneumonia. He also received COVID-19 vaccine escobar ster. Whilst coming down in the elevator patient did experience lightheadedness. His plan was to have sat down to keep his head in between his legs but he apparently fell flat to the ground. Patient denied being incontinent of urine nor feces. Rapid response was called patient transferred to the ED patient was found to be significantly hypotensive in the ED with systolic blood pressure in the 80s. 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 Nonrheumatic mitral valve regurgitation Other peripheral vascular disease Paroxysmal atrial fibrillation Pure hypercholesterolemia Sick sinus syndrome Sleep apnea Smoker Syncope Tobacco use disorder Home Medications albuterol sulfate 90 mcg/actuation aerosol inhaler 2 puff INHALATION Q4H g 07/24/17 [History Last Taken 06/05/21] trazodone 100 mg tablet 200 mg PO QHS tab 07/24/17 [History Last Taken 06/04/21] bupropion HCl (smoking deter) 150 mg tablet,12 hr sustained-release(smoking deterrent) 150 mg PO BID 09/09/17 [History Last Taken 06/05/21] tamsulosin 0.4 mg capsule 0.4 mg PO BID cap 09/08/18 [History Last Taken 06/05/21] cholecalciferol (vitamin D3) 50 mcg (2,000 unit) tablet 100 mcg PO DAILY tab 01/16/21 [History Last Taken 06/05/21] tizanidine 4 mg tablet 4 mg PO QHS 01/16/21 [History Last Taken 06/04/21] hydrocodone-acetaminophen 1 tab PO 4X/DAY 06/05/21 [History Last Taken 06/05/21] levothyroxine 100 mcg PO DAILY 06/05/21 [History Last Taken 06/04/21] aspirin 81 mg tablet,delayed release 81 mg PO DAILY 07/25/21 [History Last Taken Unknown] atorvastatin 40 mg tablet 40 mg PO QHS tab 07/25/21 [History Last Taken Unknown] metoprolol succinate 50 mg tablet,extended release 24 hr 50 mg PO DAILY tablet 07/25/21 [History Last Taken Unknown] potassium 99 mg tablet 550 mg PO DAILY tab 07/25/21 [History Last Taken Unknown] amoxicillin 500 mg capsule 2,000 mg PO .COMPLEX #20 cap 08/14/21 [Rx Last Taken Unknown] warfarin 2.5 mg tablet 2.5 mg PO DAILY #90 tab 09/23/21 [Rx Last Taken Unknown] Allergy/AdvReac Type Severity Reaction Status Date / Time No Known Allergies Allergy Verified 10/01/21 10:42 Family History Grandfather CAD (coronary artery disease) Father CAD (coronary artery disease) Hx of CABG Surgical History History of appendectomy History of hernia repair History of mitral valve replacement History of mitral valve replacement with bioprosthetic valve (07/27/14) History of shoulder surgery History of tricuspid valve repair (~07/27/14) History of tricuspid valve repair (~07/27/14) Social History Smoking Status: Current every day smoker tobacco type: cigars alcohol intake: current details: occasional substance use type: former substance user, crack/cocaine and heroin ROS ROS Narrative GENERAL: denies fever, chills, HEENT: denies headache, sinus congestion, RESPIRATORY: cough, sputum production, shortness of breath, CARDIAC: denies chest pain, palpitations, orthopnea, GASTROINTESTINAL: denies abdominal pain, nausea, GENITOURINARY: denies dysuria, urgency, frequency, EXTREMITY: denies swelling MUSCULOSKELETAL: denies current joint pain or tenderness NEUROLOGIC: denies focal numbness, weakness, tingling HEMATOLOGIC: denies easy bruising and/or hemorrhage INTEGUMENT: denies rashes PSYCHIATRIC: denies suicidal or homicidal ideation Vital Signs Vital Signs Vital Signs: 10/01/21 10:37 10/01/21 11:01 10/01/21 11:04 Temperature 97.6 F L Temperature Source Temporal Pulse Rate 104 H Respiratory Rate 25 H Blood Pressure 65/48 L 80/55 L Blood Pressure Mean 53 63 Pulse Ox 98 94 Oxygen Delivery Method Non-Rebreather Nasal Cannula Oxygen Flow Rate (L/min) 15 4 10/01/21 11:31 Temperature Temperature Source Pulse Rate Respiratory Rate Blood Pressure 89/57 L Blood Pressure Mean 67 Pulse Ox Oxygen Delivery Method Oxygen Flow Rate (L/min) Weight Weight: 76.3 kg Body Mass Index (BMI) 24.1 Physical Exam Narrative GENERAL: cooperative HEENT: Atraumatic; EYES; Anicteric, Normal Conjunctiva NECK; supple, normal thyroid, RESPIRATORY: Diminished to auscultation CARDIOVASCULAR: Regular S1 S2, GI: soft, normoactive bowel sounds, : No Renal angle tenderness; EXTREMITIES: No edema, no clubbing, MUSCULOSKELETAL: no muscle wasting NEURO: Awake; no lateralizing signs. SKIN: No Rash PSYCH; Flat affect Results Lab / Micro Data Result Diagrams: 10/01/21 10:30 10/01/21 10:30 Labs: Laboratory Results - last 24 hr 10/01/21 10:30: WBC 8.9, RBC 4.80, Hgb 15.3, Hct 45.9, MCV 95.6 H, MCH 31.9, MCHC 33.3, RDW Std Deviation 51.3 H, RDW Coeff of Luciana 14.6, Plt Count 247, MPV 10.8, Immature Gran % (Auto) 3.400 H, Neut % (Auto) 61.1, Lymph % (Auto) 31.3, Humphreys % (Auto) 3.0, Eos % (Auto) 0.8, Baso % (Auto) 0.4, Absolute Neuts (auto) 5.4, Absolute Lymphs (auto) 2.78, Nucleated RBC % 0, Differential Comment SCANNED 10/01/21 10:30: Sodium 139, Potassium 3.7, Chloride 108 H, Carbon Dioxide 24.0, Anion Gap 7, BUN 13, Creatinine 0.96, Estim Creat Clear Calc 78.15, Est GFR (MDRD) Af Amer 100, Est GFR (MDRD) Non-Af 83, BUN/Creatinine Ratio 13.5, Glucose 139 H, Calcium 8.4 L, Troponin I High Sens 10 10/01/21 10:30: Lactic Acid 1.6 10/01/21 10:30: PT 36.0 H, INR 3.7 Micro: Microbiology 10/01/21 11:24 Nasal Secretion SARS-CoV-2 & FLU Antigen (Rapid) - Final Radiology Impression Chest X-Ray 10/01/21 11:38 IMPRESSION: Hyperinflation. Stable examination. Electronically Signed: Damien Medellin MD at 12:09 EDT , Assessment & Plan Assessment/Plan (1) Near syncope: (2) Acute hypotension: PLAN: Patient is a 66-year-old gentleman admitted with syncope 1. Near syncope ? Secondary to orthostasis. Systolic blood pressure on admission was in the mid 80s. Admitted to monitored bed. Started on fluid restriction. Ordered every shift orthostatic checks. As part of patient's management ordered a 2D echo and serial cardiac enzymes 2. Paroxysmal A. fib ? Rate controlled on systemic anticoagulation with Coumadin INR is slightly elevated plan is to hold Coumadin and ask pharmacy to subsequently adjust dose 3. Valvular heart disease ? 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 Dyslipidemia -Patient is on statin therapy, continued at home dose 5. Sick sinus syndrome ? Status post pacemaker placement 6. Hypothyroidism - Patient is on levothyroxine home dose continued 7. BPH ? Patient is on tamsulosin 8. Previous history of alcohol dependence ? Per patient he has remained sober since May 26. Tobacco dependence - Counseled on cessation, offered nicotine patch for tobacco cravings 10. History of previous DVT ? Patient is on systemic anticoagulation with Coumadin 11. DVT prophylaxis ? On Coumadin Advance planning; did discuss with the patient and family regarding advanced directives as well as CODE STATUS. Did explain the various scenarios involved ( FULL CODE, DNR CCA, DNR CCA with no intubation, and DNR CC and what each meant) patient elected to remain full code with CPR and intubation if warranted. Order was placed. Time spent on discussion 18 minutes. Charges/Coding Visit Charges OBSV E&M: 94238 Initial observation care L3 Procedures Hospitalists Procedures: 94126 Advncd Care Plan 30 Min
--- NOTE | 2021-10-01 12:41 | ECHOD_ITS ---
Reason For Study: SYNCOPE Procedure This was a 2D Doppler, Color Flow transthoracic echocardiogram. The study was technically difficult. Exam performed portable in ED. Left Ventricle Normal LV size. Moderate concentric left ventricular hypertrophy. Left ventricular systolic function is normal. The estimated ejection fraction is 65 %. Post operative septal motion. Unable to assess diastolic dysfunction. Right Ventricle Normal RV size. ICD or pacer leads identified within the right ventricle. Normal systolic function. Atria The left atrium is mildly enlarged. Normal right atrium. ICD or pacer leads identified within the right atrium. No doppler evidence for ASD. Mitral Valve Stable appearing bioprosthetic mitral valve apparatus. MIld (1+) transvalvular insufficiency of the mitral valve. Tricuspid Valve Right ventricular systolic pressure estimated to be 35 mmHg. An annuloplasty ring is noted in the tricuspid position. Mild transvalvular insufficiency of the tricuspid valve. Aortic Valve Trisinus/trileaflet aortic valve. Normal aortic valve. Pulmonic Valve The pulmonic valve is not well visualized. Great Vessels Normal sized aortic root. Pericardium/Pleural No pericardial effusion. MMode/2D Measurements & Calculations LVIDd: 3.9 cm IVSd: 1.5 cm Ao root diam: 3.1 cm LVIDs: 2.2 cm LVPWd: 1.7 cm RVDd: 4.0 cm FS: 44.0 % LAV(MOD-sp4): 56.8 ml LVAd ap4: 28.3 cm2 SV(MOD-sp4): 55.7 ml LVLd ap4: 7.2 cm EDV(MOD-sp4): 89.7 ml EDV(sp4-el): 94.5 ml LVAs ap4: 16.1 cm2 LVLs ap4: 6.2 cm ESV(MOD-sp4): 34.0 ml ESV(sp4-el): 35.4 ml EF(MOD-sp4): 62.1 % EF(sp4-el): 62.5 % SV(sp4-el): 59.1 ml LA A4 area: 19.2 cm2 LA dimension(2D): 4.4 cm RA A4 area: 19.0 cm2 Doppler Measurements & Calculations MV E max kenya: 152.8 cm/sec MV V2 max: 222.5 cm/sec MV P1/2t max kenya: 224.4 cm/sec MV max P.8 mmHg MV P1/2t: 91.9 msec MV V2 mean: 106.6 cm/sec MV mean P.6 mmHg MV dec slope: 715.0 cm/sec2 MV V2 VTI: 57.0 cm MVA(P1/2t): 2.4 cm2 Ao V2 max: 129.3 cm/sec LV V1 max: 82.5 cm/sec TR max kenya: 284.6 cm/sec Ao max P.7 mmHg LV V1 max P.7 mmHg TR max P.4 mmHg ECHO/Echo Complete Interpretation Summary The study was technically difficult. Left ventricular systolic function is normal. The estimated ejection fraction is 65 %. Post operative septal motion. Moderate concentric left ventricular hypertrophy. The left atrium is mildly enlarged. Stable appearing bioprosthetic mitral valve apparatus. MIld (1+) transvalvular insufficiency of the mitral valve. An annuloplasty ring is noted in the tricuspid position. Mild transvalvular insufficiency of the tricuspid valve. Right ventricular systolic pressure estimated to be 35 mmHg. Unable to assess diastolic dysfunction. ICD or pacer leads identified within the right atrium ICD or pacer leads identified within the right ventricle. Ordering Physician: Alberto Peng Referring Physician: Fracisco Carvalho Chi Performed By: Gemini Rosado RCS
--- NOTE | 2021-10-01 13:13 | NURSING ---
PCU OBS KITTOE HYPOTENSION, NEAR SYCOPE, URI
[2021-10-01] MEDS: 0.9% Normal Saline 1,000 ML 150 ML IV ×2 (17:07→23:36)
[2021-10-01] MEDS: HYDROcodone Bitartrate/Apap 5/325 Tablet PO ×2 (17:07→22:46)
[2021-10-01] MEDS: Tamsulosin HCl 0.4 MG Capsule PO (17:07)
[2021-10-01] MEDS: 0.9% Saline Lock 10 ML Syringe IV (17:09)
[2021-10-01 18:22] LABS: Troponin-I HS 24 pg/mL (3.0-78.0)
[2021-10-01] MEDS: Albuterol 2.5 MG/3 ML VIAL.NEB. INHALATION (21:37)
[2021-10-01] MEDS: DOXEPIN HCL 50 MG CAPSULE 150 MG PO (22:44)
[2021-10-01] MEDS: traZODone 100 MG Tablet 200 MG PO (22:45)
[2021-10-01] MEDS: buPROPion (SR) 150 MG Tablet.SA PO (22:46)
[2021-10-01] MEDS: Atorvastatin Calcium 40 MG Tablet PO (22:47)
[2021-10-02 04:50] VITALS: BP 115/70; PULSE 70; RESP 16; TEMP 36.7; O2SAT 97
[2021-10-02 05:00] VITALS: PULSE 70
[2021-10-02] MEDS: Levothyroxine 100 MCG Tablet PO (06:23)
[2021-10-02] MEDS: 0.9% Normal Saline 1,000 ML 150 ML IV (06:25)
[2021-10-02 06:45] LABS: Absolute Lymphocyte Count 0.45 X10^3/uL (0.83-4.51); Absolute Neutrophil Count 5.5 X10^3/uL (2.0-7.7); Basophil# 0.02 X10^3/uL; Basophil% 0.3 % (0-1); Eosinophils% 1.5 % (0-5); Hematocrit 33.7 % (40-54); Hemoglobin 11.3 g/dL (13.0-16.5); Lymphocyte # 0.45 X10^3/ul (0.83-4.51); Lymphocyte % 6.7 % (19-41); Mean Corp Hgb Conc 33.5 g/dL (32-36); Mean Corpuscular Hgb 32.2 pg (27.0-32.0); Mean Platelet Vol. 10.8 fl (6.2-12.0); Monocyte# 0.58 X10^3/uL; Monocyte% 8.7 % (0-10); NRBC Flagged by Analyzer 0 % (0-5); Neutrophil # 5.46 X10^3/uL (2.7-7.7); Neutrophil % 81.6 % (47-70); POSITIVE DIFFERENTIAL YES; Platelet Count 141 K/mm3 (150-450); RBC Distribution Width CV 14.8 % (11.6-14.6); RBC Distribution Width SD 53.1 fl (35.1-43.9); Red Blood Count 3.51 M/mm3 (4.6-6.2); White Blood Count 6.7 K/mm3 (4.4-11.0)
[2021-10-02 06:50] LABS: Differential Indicated SCAN CRITERIA MET
[2021-10-02 06:54] LABS: International Normalized Ratio 3.8; Prothrombin Time (Protime)PT. 36.8 SECONDS (11.7-14.9)
[2021-10-02 06:59] VITALS: PULSE 72
[2021-10-02 07:05] LABS: Anisocytosis 1+; Macrocytosis 1+
[2021-10-02 07:11] LABS: Anion Gap 4 (5-15); BUN 13 mg/dL (7-18); BUN/Creat Ratio 20.4 RATIO (10-20); Calcium,Total 7.6 mg/dL (8.5-10.1); Chloride 114 mmol/L (98-107); Creatinine, Serum 0.64 mg/dL (0.70-1.30); EST Glomerular Filtration Rate 134 mL/min (>60); Est Glom Filt Rate - Afr Amer 162 mL/min (>60); Estimated Creatinine Clearance 76.67 ml/min; Glucose 98 mg/dL (74-106); Phosphorus 2.2 mg/dL (2.5-4.9); Sodium Level 141 mmol/L (136-145)
[2021-10-02 07:12] VITALS: PULSE 70; RESP 20; O2SAT 94
[2021-10-02] MEDS: Albuterol 2.5 MG/3 ML VIAL.NEB. INHALATION (07:12)
--- NOTE | 2021-10-02 07:34 | PN.HOSP_ITS ---
Subjective Subjective Patient seen blood pressure appears to have stabilized with no recurrence of the syncopal episode. Review of telemetry did not show any pathologic arrhythmias patient be assessed for possible discharge Objective Data Objective Data Vital Signs: Vital Signs Temp Pulse Resp BP Pulse Ox 98.1 F 72 16 115/70 97 10/02/21 04:50 10/02/21 06:59 10/02/21 04:50 10/02/21 04:50 10/02/21 04:50 Oxygen Flow Rate (L/min) 3 Oxygen Delivery Method Room Air Weight: 74.6 kg Body Mass Index (BMI) 22.9 Intake & Output: Intake and Output for Last 24 Hours 09/30/21 10/01/21 10/02/21 23:59 23:59 23:59 Intake Total 3000 / 3000 1000 / 1000 Output Total 0 / 0 Balance 3000 / 3000 1000 / 1000 Lab / Micro Data Result Diagrams: 10/02/21 05:51 10/02/21 05:51 Labs: Laboratory Results - last 24 hr 10/01/21 10:30: WBC 8.9, RBC 4.80, Hgb 15.3, Hct 45.9, MCV 95.6 H, MCH 31.9, MCHC 33.3, RDW Std Deviation 51.3 H, RDW Coeff of Luciana 14.6, Plt Count 247, MPV 10.8, Immature Gran % (Auto) 3.400 H, Neut % (Auto) 61.1, Lymph % (Auto) 31.3, [place] % (Auto) 3.0, Eos % (Auto) 0.8, Baso % (Auto) 0.4, Absolute Neuts (auto) 5.4, Absolute Lymphs (auto) 2.78, Nucleated RBC % 0, Differential Comment SCANNED 10/01/21 10:30: Sodium 139, Potassium 3.7, Chloride 108 H, Carbon Dioxide 24.0, Anion Gap 7, BUN 13, Creatinine 0.96, Estim Creat Clear Calc 78.15, Est GFR (MDRD) Af Amer 100, Est GFR (MDRD) Non-Af 83, BUN/Creatinine Ratio 13.5, Glucose 139 H, Calcium 8.4 L, Troponin I High Sens 10 10/01/21 10:30: Lactic Acid 1.6 10/01/21 10:30: PT 36.0 H, INR 3.7 10/01/21 17:05: Troponin I High Sens 24 10/02/21 05:51: WBC 6.7, RBC 3.51 L, Hgb 11.3 L, Hct 33.7 L, MCV 96.0 H, MCH 32.2 H, MCHC 33.5, RDW Std Deviation 53.1 H, RDW Coeff of Luciana 14.8 H, Plt Count 141 L, MPV 10.8, Immature Gran % (Auto) 1.200 H, Neut % (Auto) 81.6 H, Lymph % (Auto) 6.7 L, [place] % (Auto) 8.7, Eos % (Auto) 1.5, Baso % (Auto) 0.3, Absolute Neuts (auto) 5.5, Absolute Lymphs (auto) 0.45 L, Nucleated RBC % 0, Anisocytosis 1+, Macrocytosis 1+ 10/02/21 05:51: PT 36.8 H, INR 3.8 10/02/21 05:51: Sodium 141, Potassium 4.0, Chloride 114 H, Carbon Dioxide 23.0, Anion Gap 4 L, BUN 13, Creatinine 0.64 L, Estim Creat Clear Calc 76.67, Est GFR (MDRD) Af Amer 162, Est GFR (MDRD) Non-Af 134, BUN/Creatinine Ratio 20.4 H, Glucose 98, Calcium 7.6 L, Phosphorus 2.2 L Micro: Microbiology 10/01/21 11:24 Nasal Secretion SARS-CoV-2 & FLU Antigen (Rapid) - Final Radiography Diagnostic Testing: Radiology Impression Chest X-Ray 10/01/21 11:38 IMPRESSION: Hyperinflation. Stable examination. Electronically Signed: Damien Medellin MD at 12:09 EDT , Echocardiogram 10/01/21 12:41 Interpretation Summary The study was technically difficult. Left ventricular systolic function is normal. The estimated ejection fraction is 65 %. Post operative septal motion. Moderate concentric left ventricular hypertrophy. The left atrium is mildly enlarged. Stable appearing bioprosthetic mitral valve apparatus. MIld (1+) transvalvular insufficiency of the mitral valve. An annuloplasty ring is noted in the tricuspid position. Mild transvalvular insufficiency of the tricuspid valve. Right ventricular systolic pressure estimated to be 35 mmHg. Unable to assess diastolic dysfunction. ICD or pacer leads identified within the right atrium ICD or pacer leads identified within the right ventricle. Ordering Physician: Alberto Peng Referring Physician: Fracisco Carvalho Chi Performed By: Gemini Rosado RCS Physical Exam Narrative GENERAL: cooperative HEENT: Atraumatic; EYES; Anicteric, Normal Conjunctiva NECK; supple, normal thyroid, RESPIRATORY: Diminished to auscultation CARDIOVASCULAR: Regular S1 S2, GI: soft, normoactive bowel sounds, : No Renal angle tenderness; EXTREMITIES: No edema, no clubbing, MUSCULOSKELETAL: no muscle wasting NEURO: Awake; no lateralizing signs. SKIN: No Rash PSYCH; Flat affect Assessment & Plan Assessment/Plan (1) Near syncope: (2) Acute hypotension: PLAN: Patient is a 66-year-old gentleman admitted with syncope 1. Near syncope ? Secondary to orthostasis. Systolic blood pressure on admission was in the mid 80s. Admitted to monitored bed. Started on fluid restriction. Ordered every shift orthostatic checks. As part of patient's management ordered a 2D echo and serial cardiac enzymes -10/02/2021 Patient seen blood pressure appears to have stabilized with no recurrence of the syncopal episode. Review of telemetry did not show any pathologic arrhythmias patient be assessed for possible discharge 2. Paroxysmal A. fib ? Rate controlled on systemic anticoagulation with Coumadin INR is slightly elevated plan is to hold Coumadin and ask pharmacy to subsequently adjust dose 3. Valvular heart disease ? 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 Dyslipidemia -Patient is on statin therapy, continued at home dose 5. Sick sinus syndrome ? Status post pacemaker placement 6. Hypothyroidism - Patient is on levothyroxine home dose continued 7. BPH ? Patient is on tamsulosin 8. Previous history of alcohol dependence ? Per patient he has remained sober since May 26. Tobacco dependence - Counseled on cessation, offered nicotine patch for tobacco cravings 10. History of previous DVT ? Patient is on systemic anticoagulation with Coumadin 11. DVT prophylaxis ? On Coumadin Charges/Coding Visit Charges OBSV E&M: 15470 Subsequent observation care L2
[2021-10-02] MEDS: Aspirin E.C. 81 MG Tablet PO (07:39)
[2021-10-02] MEDS: tiZANidine HCl 2 MG Tablet 4 MG PO (07:40)
[2021-10-02] MEDS: buPROPion (SR) 150 MG Tablet.SA PO (07:40)
[2021-10-02] MEDS: Citalopram 20 MG Tablet PO (07:40)
[2021-10-02] MEDS: Tamsulosin HCl 0.4 MG Capsule PO (07:40)
[2021-10-02] MEDS: Cholecalciferol (VIT D3) 25 MCG TABLET (1,000 UNITS) 100 MCG PO (07:40)
[2021-10-02] MEDS: HYDROcodone Bitartrate/Apap 5/325 Tablet PO (07:51)
--- NOTE | 2021-10-02 08:43 | DS.PCM_ITS ---
Providers Date of Admission: 10/01/21 Primary Care Physician: Dr. Fracisco Carvalho MD Reason For Visit: SYNCOPE Diagnosis Discharge Diagnosis (1) Near syncope: Status: Acute Code(s): R55 - Syncope and collapse (2) Acute hypotension: Status: Acute Code(s): I95.9 - Hypotension, unspecified Medications at Discharge Home Medications albuterol sulfate 90 mcg/actuation aerosol inhaler 2 puff INHALATION Q4H g 07/24/17 trazodone 100 mg tablet 200 mg PO QHS tab 07/24/17 bupropion HCl (smoking deter) 150 mg tablet,12 hr sustained-release(smoking deterrent) 150 mg PO BID 09/09/17 tamsulosin 0.4 mg capsule 0.4 mg PO BID cap 09/08/18 cholecalciferol (vitamin D3) 50 mcg (2,000 unit) tablet 100 mcg PO DAILY tab 01/16/21 tizanidine 4 mg tablet 4 mg PO BID 01/16/21 hydrocodone-acetaminophen 1 tab PO 4X/DAY 06/05/21 levothyroxine 100 mcg PO DAILY 06/05/21 aspirin 81 mg tablet,delayed release 81 mg PO DAILY 07/25/21 atorvastatin 40 mg tablet 40 mg PO QHS tab 07/25/21 potassium 99 mg tablet 550 mg PO DAILY tab 07/25/21 citalopram 20 mg PO DAILY 10/01/21 doxepin 150 mg PO DAILY 10/01/21 ferrous sulfate 325 mg PO DAILY 10/01/21 warfarin 2.5 mg PO DAILY 10/01/21 metoprolol succinate 25 mg PO DAILY #0 tablet 10/02/21 Hospital Course Summary of Care Provided Minutes Spent on Discharge: 35 Hospital Course: 1. Near syncope ? Secondary to orthostasis. Systolic blood pressure on admission was in the mid 80s. Admitted to monitored bed. Started on fluid restriction. Ordered every shift orthostatic checks. As part of patient's management ordered a 2D echo and serial cardiac enzymes -10/02/2021 Patient seen blood pressure appears to have stabilized with no recurrence of the syncopal episode. Review of telemetry did not show any pathologic arrhythmias 2D echo obtained results are as above 2. Paroxysmal A. fib ? Rate controlled on systemic anticoagulation with Coumadin INR is slightly elevated plan is to hold Coumadin and ask pharmacy to subsequently adjust dose 3. Valvular heart disease ? 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 Dyslipidemia -Patient is on statin therapy, continued at home dose 5. Sick sinus syndrome ? Status post pacemaker placement 6. Hypothyroidism - Patient is on levothyroxine home dose continued 7. BPH ? Patient is on tamsulosin 8. Previous history of alcohol dependence ? Per patient he has remained sober since May 9. Tobacco dependence - Counseled on cessation, offered nicotine patch for tobacco cravings 10. History of previous DVT ? Patient is on systemic anticoagulation with Coumadin 11. DVT prophylaxis ? On Coumadin Physical Exam Narrative GENERAL: cooperative HEENT: Atraumatic; EYES; Anicteric, Normal Conjunctiva NECK; supple, normal thyroid, RESPIRATORY: Diminished to auscultation CARDIOVASCULAR: Regular S1 S2, GI: soft, normoactive bowel sounds, : No Renal angle tenderness; EXTREMITIES: No edema, no clubbing, MUSCULOSKELETAL: no muscle wasting NEURO: Awake; no lateralizing signs. SKIN: No Rash PSYCH; Flat affect Weight / BMI Weight Weight: 74.6 kg Body Mass Index (BMI) 22.9 ABG / Lab / Microbiology Data Result Diagrams: 10/02/21 05:51 10/02/21 05:51 Laboratory: Laboratory Results - last 24 hr 10/01/21 10:30: WBC 8.9, RBC 4.80, Hgb 15.3, Hct 45.9, MCV 95.6 H, MCH 31.9, MCHC 33.3, RDW Std Deviation 51.3 H, RDW Coeff of Luciana 14.6, Plt Count 247, MPV 10.8, Immature Gran % (Auto) 3.400 H, Neut % (Auto) 61.1, Lymph % (Auto) 31.3, [place] % (Auto) 3.0, Eos % (Auto) 0.8, Baso % (Auto) 0.4, Absolute Neuts (auto) 5.4, Absolute Lymphs (auto) 2.78, Nucleated RBC % 0, Differential Comment SCANNED 10/01/21 10:30: Sodium 139, Potassium 3.7, Chloride 108 H, Carbon Dioxide 24.0, Anion Gap 7, BUN 13, Creatinine 0.96, Estim Creat Clear Calc 78.15, Est GFR (MDRD) Af Amer 100, Est GFR (MDRD) Non-Af 83, BUN/Creatinine Ratio 13.5, Glucose 139 H, Calcium 8.4 L, Troponin I High Sens 10 10/01/21 10:30: Lactic Acid 1.6 10/01/21 10:30: PT 36.0 H, INR 3.7 10/01/21 17:05: Troponin I High Sens 24 10/02/21 05:51: WBC 6.7, RBC 3.51 L, Hgb 11.3 L, Hct 33.7 L, MCV 96.0 H, MCH 32.2 H, MCHC 33.5, RDW Std Deviation 53.1 H, RDW Coeff of Luciana 14.8 H, Plt Count 141 L, MPV 10.8, Immature Gran % (Auto) 1.200 H, Neut % (Auto) 81.6 H, Lymph % (Auto) 6.7 L, [place] % (Auto) 8.7, Eos % (Auto) 1.5, Baso % (Auto) 0.3, Absolute Neuts (auto) 5.5, Absolute Lymphs (auto) 0.45 L, Nucleated RBC % 0, Anisocytosis 1+, Macrocytosis 1+ 10/02/21 05:51: PT 36.8 H, INR 3.8 10/02/21 05:51: Sodium 141, Potassium 4.0, Chloride 114 H, Carbon Dioxide 23.0, Anion Gap 4 L, BUN 13, Creatinine 0.64 L, Estim Creat Clear Calc 76.67, Est GFR (MDRD) Af Amer 162, Est GFR (MDRD) Non-Af 134, BUN/Creatinine Ratio 20.4 H, Glucose 98, Calcium 7.6 L, Phosphorus 2.2 L Microbiology: Microbiology 10/01/21 11:24 Nasal Secretion SARS-CoV-2 & FLU Antigen (Rapid) - Final Radiography Diagnostic Testing: Radiology Impression Chest X-Ray 10/01/21 11:38 IMPRESSION: Hyperinflation. Stable examination. Electronically Signed: Damien Medellin MD at 12:09 EDT , Echocardiogram 10/01/21 12:41 Interpretation Summary The study was technically difficult. Left ventricular systolic function is normal. The estimated ejection fraction is 65 %. Post operative septal motion. Moderate concentric left ventricular hypertrophy. The left atrium is mildly enlarged. Stable appearing bioprosthetic mitral valve apparatus. MIld (1+) transvalvular insufficiency of the mitral valve. An annuloplasty ring is noted in the tricuspid position. Mild transvalvular insufficiency of the tricuspid valve. Right ventricular systolic pressure estimated to be 35 mmHg. Unable to assess diastolic dysfunction. ICD or pacer leads identified within the right atrium ICD or pacer leads identified within the right ventricle. Ordering Physician: Alberto Peng Referring Physician: Fracisco Carvalho Chi Performed By: Gemini Rosado RCS D/C Instructions Discharge Diet: No restrictions Discharge Activity: Return to Normal Activity Call your doctor if you observe: Fever of 101 or Higher, Shortness of breath, Fainting spells and Chest pain Meaningful Use Info Meaningful Use Diagnoses (Choose all that apply): None applicable Discharge Plan Admission Admit Date/Time: 10/01/21 12:40 Attending Provider: Alberto Peng Primary Care Provider: Fracisco Carvalho Chi Discharge Orders/Prescriptions Prescriptions: Continued trazodone 100 mg tablet 200 mg PO QHS RF: 0 albuterol sulfate [ProAir HFA] 90 mcg/actuation HFA aerosol inhaler 2 puff INHALATION Q4H RF: 0 bupropion HCl (smoking deter) 150 mg tablet extended release 12 hr 150 mg PO BID RF: 0 potassium 99 mg tablet 550 mg PO DAILY RF: 0 aspirin [Adult Aspirin Regimen] 81 mg tablet,delayed release (DR/EC) 81 mg PO DAILY RF: 0 tamsulosin 0.4 mg capsule 0.4 mg PO BID RF: 0 hydrocodone-acetaminophen 5-325 mg tablet 1 tab PO 4X/DAY RF: 0 levothyroxine 100 mcg tablet 100 mcg PO DAILY RF: 0 citalopram 20 mg Tablet 20 mg PO DAILY RF: 0 ferrous sulfate 325 mg (65 mg iron) Tablet 325 mg PO DAILY RF: 0 doxepin 150 mg Capsule 150 mg PO DAILY RF: 0 warfarin 2.5 mg tablet 2.5 mg PO DAILY RF: 0 cholecalciferol (vitamin D3) 50 mcg (2,000 unit) tablet 100 mcg PO DAILY RF: 0 tizanidine 4 mg tablet 4 mg PO BID RF: 0 atorvastatin 40 mg tablet 40 mg PO QHS RF: 0 Changed metoprolol succinate 50 mg tablet extended release 24 hr 25 mg PO DAILY Qty: 0 RF: 0 Discontinued nadolol [[place]] 40 mg Tablet 40 mg PO DAILY RF: 0 Referrals / Follow Up: Fracisco Carvalho Chi, MD [Primary Care Provider] - In 1 Week Disposition Disposition (needs filled in before D/C Order can be placed): Home, Self Care Charges/Coding Visit Charges OBSV E&M: 43236 Observation care discharge
[2021-10-02 09:50] VITALS: BP 130/72; PULSE 70; RESP 16; TEMP 36.6; O2SAT 95
== END 2021-10-02 10:45 | disposition home or self-care (01) ==
LOC: ED 12:46 → PCU 13:00
PROVIDERS: Admitting Provider Internal Medicine; Emergency Provider Emergency Medicine; PCP Family Medicine Geriatric Medicine; Visit Provider Internal Medicine
DX: I95.1 Orthostatic hypotension (principal); I48.0 Paroxysmal atrial fibrillation; R56.9 Unspecified convulsions; J06.9 Acute upper respiratory infection, unspecified; E78.5 Hyperlipidemia, unspecified; R79.1 Abnormal coagulation profile; E03.9 Hypothyroidism, unspecified; Z95.3 Presence of xenogenic heart valve; I10 Essential (primary) hypertension; F17.290 Nicotine dependence, other tobacco product, uncomplicated; Z20.822 Contact with and (suspected) exposure to COVID-19; Z95.0 Presence of cardiac pacemaker; Z86.718 Personal history of other venous thrombosis and embolism; Z79.899 Other long term (current) drug therapy; Z79.82 Long term (current) use of aspirin; Z79.01 Long term (current) use of anticoagulants; F41.9 Anxiety disorder, unspecified; F32.A Depression, unspecified; I08.1 Rheumatic disorders of both mitral and tricuspid valves
CPT/HCPCS: 36415; 71045; 80048; 80053; 82306; 83605; 84100; 84403; 84443; 84484; 85025; 85610; 87040; 87428; 93005; 93306; 94640; 96360; 96361; 99218; 99284; J7030; A4216; G0378

== ENCOUNTER → 2021-10-01 | Outpatient (CLI) | payer MEDICARE, BC, SELFPAY ==
[2021-10-01 11:08] LABS: Absolute Lymphocyte Count 1.52 X10^3/uL (0.83-4.51); Basophil# 0.04 X10^3/uL; Basophil% 0.4 % (0-1); Eosinophil# 0.17 X10^3/uL; Eosinophils% 1.9 % (0-5); Hematocrit 37.9 % (40-54); Hemoglobin 12.7 g/dL (13.0-16.5); Lymphocyte # 1.52 X10^3/ul (0.83-4.51); Mean Corp Hgb Conc 33.5 g/dL (32-36); Mean Corpuscular Hgb 32.4 pg (27.0-32.0); Mean Corpuscular Volume 96.7 fL (80-94); Mean Platelet Vol. 10.2 fl (6.2-12.0); Monocyte# 1.03 X10^3/uL; Monocyte% 11.5 % (0-10); NRBC Flagged by Analyzer 0 % (0-5); Neutrophil # 6.04 X10^3/uL (2.7-7.7); Neutrophil % 67.9 % (47-70); Platelet Count 181 K/mm3 (150-450); RBC Distribution Width CV 14.6 % (11.6-14.6); RBC Distribution Width SD 51.4 fl (35.1-43.9); Red Blood Count 3.92 M/mm3 (4.6-6.2); White Blood Count 8.9 K/mm3 (4.4-11.0)
[2021-10-01 11:33] LABS: ALB/GLOB Ratio 0.9 RATIO (0.9-2.4); AST(SGOT) 30 U/L (15-37); Alanine Aminotransfer ALT/SGPT 31 U/L (16-61); Albumin, Serum 3.5 g/dL (3.2-5.0); Alkaline Phosphatase 69 U/L (45-117); Anion Gap 4 (5-15); BUN 12 mg/dL (7-18); BUN/Creat Ratio 13.7 RATIO (10-20); Calcium,Total 8.6 mg/dL (8.5-10.1); Chloride 107 mmol/L (98-107); Creatinine, Serum 0.88 mg/dL (0.70-1.30); EST Glomerular Filtration Rate 92 mL/min (>60); Est Glom Filt Rate - Afr Amer 112 mL/min (>60); Globulin 3.7 g/dL (2.2-4.2); Glucose 100 mg/dL (74-106); Potassium 3.8 mmol/L (3.5-5.1); Protein, Total 7.2 g/dL (6.4-8.2); Sodium Level 139 mmol/L (136-145)
[2021-10-01 11:35] LABS: Vitamin D,25 Hydroxy 80.8 ng/mL
== END | disposition home or self-care (01) ==
LOC: POLAB3 09:38
PROVIDERS: PCP Family Medicine Geriatric Medicine; Visit Provider Family Medicine Geriatric Medicine
DX: E55.9 Vitamin D deficiency, unspecified (principal); F52.8 Other sexual dysfunction not due to a substance or known physiological condition; R53.83 Other fatigue
CPT/HCPCS: 36415; 80053; 82306; 84403; 84443; 85025

== ENCOUNTER 2021-10-16 14:38 | Outpatient (CLI) | payer MEDICARE, BC, SELFPAY ==
--- NOTE | 2021-10-16 14:43 | VDLE_ITS ---
Reason For Study: pain RIGHT GSV is normal. CFV is compressible, spontaneous, phasic, competent and demonstrates normal augmentation. FV is compressible, spontaneous, phasic, competent and demonstrates normal augmentation. POP V is compressible, spontaneous, phasic, competent and demonstrates normal augmentation. T/P Trunk is compressible. PTV is compressible. RT PerV is compressible. Procedure This is a venous duplex using B-mode, color flow and spectral Doppler. Exam performed in department. The exam was abbreviated due to the COVID 19 protocol. The exam was diagnostic. A preliminary report was called and/or faxed to Dr. Carvalho. VL/Venous Duplex US, Unilateral Interpretation Summary Deep veins of the right lower extremity are patent and compressible segmentally . There is no evidence of right lower extremity deep vein thrombosis. Valvular competence winifred ears intact within the proximal deep venous system on the right . The right great saphenous vein a ppears patent and compressible segmentally. Ordering Physician: Fracisco Carvalho Performed By: Zhang Jaime RVT
--- NOTE | 2021-10-16 14:44 | RAD_ITS ---
EXAM: XR RIGHT TIBIA AND FIBULA, 2 VIEWS CLINICAL INDICATION: PAIN TECHNIQUE: Frontal and lateral views of the right tibia and fibula. This report was created using [employer] report generation technology. COMPARISON: None. FINDINGS: BONES/JOINTS: There is an enthesophyte involving the posterior superior calcaneus at the site of insertion of the Achilles tendon. Degenerative findings of the talonavicular joint. Tarsal bone fusion noted. No acute fracture. No subluxation. Normal alignment. No sclerotic or destructive changes observed. SOFT TISSUES: Talus / calcaneal fusion staple noted. No soft tissue swelling or gas. No radiopaque foreign body. OTHER FINDINGS: Pes planus of the foot. RAD/Tibia & Fibula 2 Views IMPRESSION: No acute findings in the right tibia and fibula or surrounding soft tissues. Electronically Signed: Kerwin Whitt MD at 15:44 EDT Reading Location ID and State: [facility] / [place] , Service support ,
--- NOTE | 2021-10-16 14:44 | RAD_ITS ---
EXAM: XR RIGHT FEMUR, 2 VIEWS CLINICAL INDICATION: FALLING INJURY PAIN TECHNIQUE: Frontal and lateral views of the right femur. This report was created using [employer] report generation technology. COMPARISON: None. FINDINGS: BONES/JOINTS: Unremarkable. No acute fracture. No subluxation. Normal alignment. Preservation of the joint space. No sclerotic or destructive changes observed. SOFT TISSUES: Soft tissue swelling around the patella. No radiopaque foreign body. VASCULATURE: There are atherosclerotic vascular calcifications. RAD/Femur Min 2 Views IMPRESSION: Soft tissue swelling around the patella. Electronically Signed: Kerwin Whitt MD at 15:47 EDT ,
--- NOTE | 2021-10-16 15:26 | RAD_ITS ---
STUDY: XR Knee 3 Views 10/16/2021 4:07 PM REASON FOR EXAM: Male, 66 years old. LEG [PAIN TECHNIQUE: XR Knee 3 Views RIGHT COMPARISON: None FINDINGS: Normal visualized distal femur. Normal visualized proximal tibia and fibula. Normal proximal tibiofibular articulation. There are atherosclerotic vascular calcifications. Normal medial femorotibial compartment. Normal lateral femorotibial compartment. Normal patellofemoral articulation. Soft tissue swelling around the patella. RAD/Knee 3 Views IMPRESSION: Soft tissue swelling around the patella. Electronically Signed: Kerwin Whitt MD at 16:08 EDT ,
== END 2021-10-16 23:59 | disposition home or self-care (01) ==
PROVIDERS: PCP Family Medicine Geriatric Medicine; Referring Provider Family Medicine Geriatric Medicine; Visit Provider Family Medicine Geriatric Medicine
DX: M79.604 Pain in right leg (principal); B95.62 Methicillin resistant Staphylococcus aureus infection as the cause of diseases classified elsewhere; T07.XXXA Unspecified multiple injuries, initial encounter; W19.XXXA Unspecified fall, initial encounter
CPT/HCPCS: 73552; 73562; 73590; 87070; 87205; 87640; 93971

== ENCOUNTER 2021-10-30 18:59 | Emergency (ER) | payer MEDICARE, BC, SELFPAY ==
[2021-10-30 19:00] VITALS: BP 112/56; PULSE 76; RESP 18; TEMP 36.2; O2SAT 96; BMI 23.4
[2021-10-30 19:02] VITALS: BP 112/56; PULSE 76; RESP 18; TEMP 36.2; O2SAT 96
--- NOTE | 2021-10-30 20:52 | EDS_ITS ---
HPI History of Present Illness Chief Complaint: Lower Extremity Injury Narrative Narrative: 66-year-old male presenting with right leg pain from a fall 2 weeks ago. He had initial imaging for it and he was initially on Keflex. He had a duplex ultrasound initially and had a repeat 1 this week and there is was negative for DVT. Patient is on Coumadin and had an INR of 3.0 today. Primary care physician ordered a CT scan which showed a abscess in the right medial thigh. Patient is not having systemic signs and symptoms but does complain of a lot of pain. 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 Nonrheumatic mitral valve regurgitation Other peripheral vascular disease Paroxysmal atrial fibrillation Pure hypercholesterolemia Sick sinus syndrome Sleep apnea Smoker Syncope Tobacco use disorder Home Medications albuterol sulfate 90 mcg/actuation aerosol inhaler (ProAir HFA) 2 puff inhalation Q4H SOB 07/24/17 [History Last Taken 10/01/21] trazodone 100 mg tablet 200 mg PO QHS mood 07/24/17 [History Last Taken 09/30/21] bupropion HCl (smoking deter) 150 mg tablet,12 hr sustained-release(smoking deterrent) 150 mg PO BID SMOKING 09/09/17 [History Last Taken 10/01/21] tamsulosin 0.4 mg capsule 0.4 mg PO BID urinary tract 09/08/18 [History Last Taken 10/01/21] cholecalciferol (vitamin D3) 50 mcg (2,000 unit) tablet 100 mcg PO DAILY supplement 01/16/21 [History Last Taken 10/01/21] tizanidine 4 mg tablet 4 mg PO BID muscle spasm 01/16/21 [History Last Taken 10/01/21] hydrocodone-acetaminophen 5-325mg 5mg-325mg 1 tab PO 4X/DAY PAIN 06/05/21 [History Last Taken 10/01/21] levothyroxine 100 mcg tablet 100 mcg PO DAILY THYROID 06/05/21 [History Last Taken 10/01/21] aspirin 81 mg tablet,delayed release (Adult Aspirin Regimen) 81 mg PO DAILY blood thinner 07/25/21 [History Last Taken 10/01/21] atorvastatin 40 mg tablet 40 mg PO QHS cholesterol 07/25/21 [History Last Taken 10/01/21] potassium 99 mg tablet 550 mg PO DAILY SUPPLEMENT 07/25/21 [History Last Taken 10/01/21] citalopram 20 mg tablet 20 mg PO DAILY depression 10/01/21 [History Last Taken 10/01/21] doxepin 150 mg capsule 150 mg PO DAILY depression 10/01/21 [History Last Taken 09/30/21] ferrous sulfate 325 mg (65 mg iron) tablet 325 mg PO DAILY supplement 10/01/21 [History Last Taken 10/01/21] warfarin 2.5 mg tablet 2.5 mg PO DAILY BLOOD THINNER 10/01/21 [History Last Taken 09/30/21] metoprolol succinate 50 mg tablet,extended release 24 hr 25 mg PO DAILY bp #0 TABLETS 10/02/21 [Rx Last Taken 09/30/21] Allergy/AdvReac Type Severity Reaction Status Date / Time No Known Allergies Allergy Verified 10/30/21 18:59 Family History Grandfather CAD (coronary artery disease) Father CAD (coronary artery disease) Hx of CABG Surgical History History of appendectomy History of hernia repair History of mitral valve replacement History of mitral valve replacement with bioprosthetic valve (07/27/14) History of shoulder surgery History of tricuspid valve repair (~07/27/14) History of tricuspid valve repair (~07/27/14) Social History Smoking Status: Current every day smoker tobacco type: cigars alcohol intake: current details: occasional substance use type: former substance user, crack/cocaine and heroin ROS ROS ED Constitutional Constitutional ED: Denies chills or subjective Eyes Eyes: Denies change in vision ENT ENT ED: Denies rhinorrhea or sore throat Cardiovascular Cardiovascular: Denies chest pain or palpitations Respiratory/Chest Respiratory/Chest: Denies cough or dyspnea Gastrointestinal Gastrointestinal: Denies abdominal pain or constipation Genitourinary Genitourinary ED: Denies dysuria or hematuria Musculoskeletal Musculoskeletal: Reports other Details: Right leg pain Integumentary Reports other Details: Bruising and swelling to right leg Psychiatric Psychiatric: Denies anxiety or depression Endocrine Endocrinology: Denies polydipsia or polyphagia EXAM Physical Exam Const Vital Signs: 10/30/21 19:00 10/30/21 19:02 Temperature 97.1 F L 97.1 F L Temperature Source Temporal Temporal Pulse Rate 76 76 Respiratory Rate 18 18 Blood Pressure 112/56 L 112/56 L Blood Pressure Mean 74 Pulse Ox 96 96 Oxygen Delivery Method Room Air Room Air Positive well nourished General Appearance ED: NAD HEENT Reports moist mucous membranes normocephalic and atraumatic Eyes PERRL Chest Wall inspection of chest normal and palpation of chest normal Resp normal respiratory effort and no retractions Cardio regular rate and regular rhythm Neuro oriented x3, CN's II-XII intact bilaterally, moves all extremities and no sensory deficits noted Sensorium / Orientation: alert Psych mental status grossly normal Skin Skin Narrative: Skin appears bruised and there is edema in the right lower extremity from the distal calf down its circumferential. There are some tender to palpation in the calf. There is also tenderness palpation of the distal thigh. MDM MDM MDM Narrative Medical decision making narrative: 66-year-old male presenting with left leg pain and possibly abscess in the deep anterior thigh. He has had no systemic signs or symptoms. Vital signs are stable he is afebrile. He finished a course of Keflex and Dr. Carvalho is placed on another antibiotic regimen. He came in today to be evaluated for possible absce ss. I did review the lab work today and he has no leukocytosis and his blood work is essentially unchanged from a month ago. I reviewed the CT with Dr. Prescott who recommended having the patient stopped his Coumadin and he will see him later this week for a bedside I&D and I can review ultrasound. Patient is already in pain management and has [place]. I discussed this with Dr. Carvalho and he recommended that I not give him any more pain medicine. Patient discharged home in stable condition. Impression: 1. Abscess left thigh 2. Left leg pain Lab Data Attestation: I reviewed the patient's lab results. Discharge Plan Triage Chief Complaint: Lower Extremity Injury ED Provider: Mainor Wells Dx/Rx/DC Orders Instructions: Wound Care Prescriptions: No Action trazodone 100 mg tablet 200 mg PO QHS albuterol sulfate [ProAir HFA] 90 mcg/actuation HFA aerosol inhaler 2 puff INHALATION Q4H bupropion HCl (smoking deter) 150 mg tablet extended release 12 hr 150 mg PO BID potassium 99 mg tablet 550 mg PO DAILY aspirin [Adult Aspirin Regimen] 81 mg tablet,delayed release (DR/EC) 81 mg PO DAILY tamsulosin 0.4 mg capsule 0.4 mg PO BID Label Comments: Prostate hydrocodone-acetaminophen 5-325 mg tablet 1 tab PO 4X/DAY levothyroxine 100 mcg tablet 100 mcg PO DAILY citalopram 20 mg Tablet 20 mg PO DAILY ferrous sulfate 325 mg (65 mg iron) Tablet 325 mg PO DAILY doxepin 150 mg Capsule 150 mg PO DAILY warfarin 2.5 mg tablet 2.5 mg PO DAILY Protocol: Dose Management Condition: Thursday Dose/Route: 2.5 mg Instruction: 1 x 2.5 mg tablet Condition: Thursday Dose/Route: 2.5 mg Instruction: 1 x 2.5 mg tablet Condition: Thursday Dose/Route: 2.5 mg Instruction: 1 x 2.5 mg tablet Condition: Thursday Dose/Route: 2.5 mg Instruction: 1 x 2.5 mg tablet Condition: Dose/Route: 2.5 mg Instruction: 1 x 2.5 mg tablet Condition: Thursday Dose/Route: 2.5 mg Instruction: 1 x 2.5 mg tablet Condition: Thursday Dose/Route: 2.5 mg Instruction: 1 x 2.5 mg tablet Protocol Text: Adjustment Start Date: Thursday09/23/21 INR Value: 2.3 INR Date: 09/23/21 Recheck Date: 10/21/21 metoprolol succinate 50 mg tablet extended release 24 hr 25 mg PO DAILY Qty: 0 0RF cholecalciferol (vitamin D3) 50 mcg (2,000 unit) tablet 100 mcg PO DAILY tizanidine 4 mg tablet 4 mg PO BID atorvastatin 40 mg tablet 40 mg PO QHS Primary Care Provider: Fracisco Carvalho Chi Referrals: Nam Prescott MD [STAFF PHYSICIAN] - As soon as possible Fracisco Carvalho Chi, MD [Primary Care Provider] - Disposition Disposition: Home, Self Care Discharge Date/Time: 10/30/21 21:31
[2021-10-30] MEDS: Morphine 4 MG/ML Syringe IV (21:07)
[2021-10-30] MEDS: Ondansetron 4 MG/2 ML Vial IV (21:07)
== END 2021-10-30 21:31 | disposition home or self-care (01) ==
PROVIDERS: Emergency Provider Student in an Organized Health Care Education/Training Program; PCP Family Medicine Geriatric Medicine; Visit Provider Student in an Organized Health Care Education/Training Program
DX: L02.415 Cutaneous abscess of right lower limb (principal); I48.0 Paroxysmal atrial fibrillation; L03.90 Cellulitis, unspecified; I10 Essential (primary) hypertension; E78.00 Pure hypercholesterolemia, unspecified; E03.9 Hypothyroidism, unspecified; F32.A Depression, unspecified; F17.290 Nicotine dependence, other tobacco product, uncomplicated; R60.0 Localized edema; Z95.0 Presence of cardiac pacemaker; Z79.01 Long term (current) use of anticoagulants; Z79.82 Long term (current) use of aspirin; Z79.899 Other long term (current) drug therapy; Z86.718 Personal history of other venous thrombosis and embolism
CPT/HCPCS: 36415; 73701; 80048; 82550; 85025; 85610; 85652; 87070; 87205; 87640; 93971; 96374; 96375; 99283; Q9967; A4216; J2405

== ENCOUNTER → 2021-10-30 | Outpatient (CLI) | payer MEDICARE, BC, SELFPAY ==
--- NOTE | 2021-10-30 10:22 | VDLE_ITS ---
Reason For Study: Edema RIGHT GSV is normal. CFV is compressible, spontaneous, phasic, competent and demonstrates normal augmentation. FV is compressible, spontaneous, phasic, competent and demonstrates normal augmentation. POP V is compressible, spontaneous, phasic, competent and demonstrates normal augmentation. T/P Trunk is compressible. PTV is compressible. RT PerV is compressible. Procedure This is a venous duplex using B-mode, color flow and spectral Doppler. Exam performed in department. A preliminary report was called and/or faxed to [facility]. VL/Venous Duplex US, Unilateral Interpretation Summary Deep veins of the right lower extremity are patent and compressible segmentally . There is no evidence of right lower extremity deep vein thrombosis. Valvular competence win[place] ears intact within the proximal deep venous system on the right . The right great saphenous vein a ppears patent and compressible segmentally. Ordering Physician: Fracisco Carvalho Referring Physician: Fracisco Carvalho Chi Performed By: Edelmira Boyd RVT
--- NOTE | 2021-10-30 15:50 | CT_ITS ---
CT of the right lower extremity with contrast INDICATION: Abscess TECHNIQUE: CT of the right lobe extremity was performed in the axial projection following contrast administration scanning from the distal thigh to the ankle followed by sagittal coronal reconstructions. Radiographic technique was optimized to limit patient radiation dose. DLP was not calculated due to technical difficulties. FINDINGS:. Bony structures are well-mineralized. There is no evidence for acute fracture. There is mild cellulitis of the anterior aspect of the distal thigh and proximal calf. There is no evidence for associated osteomyelitis or focal abscess within the subcutaneous fat. However, there is a thick-walled mildly rim-enhancing intramuscular mass measuring approximately 2.3 x 2.1 x 3.1 cm in the mid to distal lateral thigh which may represent phlegmonous process or evolving abscess. Clinical correlation is recommended as well as sonographic guided aspiration if clinically warranted. CT/Extremity Lower WITH Contrast IMPRESSION: Findings which may be consistent with intramuscular phlegmonous process or evolving abscess in within the lateral aspect of the mid to distal thigh. No evidence for associated osteomyelitis Electronically Signed: Zac Witt MD at 17:46 EDT ,
== END | disposition home or self-care (01) ==
PROVIDERS: PCP Family Medicine Geriatric Medicine; Referring Provider Family Medicine Geriatric Medicine; Visit Provider Family Medicine Geriatric Medicine
DX: L03.90 Cellulitis, unspecified (principal); R60.0 Localized edema
CPT/HCPCS: 36415; 73701; 80048; 82550; 85025; 85610; 85652; 87070; 87205; 87640; 93971; Q9967

== ENCOUNTER → 2021-10-30 | Outpatient (CLI) | payer MEDICARE, BC, SELFPAY ==
[2021-10-30 11:48] LABS: Erythrocyte Sedimentation Rate 17 mm/hr (0-20)
[2021-10-30 11:50] LABS: Absolute Lymphocyte Count 1.16 X10^3/uL (0.83-4.51); Absolute Neutrophil Count 6.1 X10^3/uL (2.0-7.7); Basophil# 0.02 X10^3/uL; Basophil% 0.2 % (0-1); Eosinophil# 0.05 X10^3/uL; Eosinophils% 0.6 % (0-5); Hematocrit 31.5 % (40-54); Hemoglobin 10.3 g/dL (13.0-16.5); Lymphocyte # 1.16 X10^3/ul (0.83-4.51); Lymphocyte % 13.9 % (19-41); Mean Corp Hgb Conc 32.7 g/dL (32-36); Mean Corpuscular Hgb 33.1 pg (27.0-32.0); Mean Corpuscular Volume 101.3 fL (80-94); Monocyte% 10.8 % (0-10); NRBC Flagged by Analyzer 0 % (0-5); Neutrophil # 6.09 X10^3/uL (2.7-7.7); Neutrophil % 73.1 % (47-70); Platelet Count 203 K/mm3 (150-450); RBC Distribution Width CV 16.4 % (11.6-14.6); RBC Distribution Width SD 59.5 fl (35.1-43.9); Red Blood Count 3.11 M/mm3 (4.6-6.2); White Blood Count 8.3 K/mm3 (4.4-11.0)
[2021-10-30 11:54] LABS: Prothrombin Time (Protime)PT. 30.4 SECONDS (11.7-14.9)
[2021-10-30 12:01] LABS: Anion Gap 6 (5-15); BUN 15 mg/dL (7-18); BUN/Creat Ratio 17.5 RATIO (10-20); CPK Total, Creatine Kinase 40 U/L (39-308); Calcium,Total 8.8 mg/dL (8.5-10.1); Chloride 106 mmol/L (98-107); Creatinine, Serum 0.86 mg/dL (0.70-1.30); EST Glomerular Filtration Rate 95 mL/min (>60); Est Glom Filt Rate - Afr Amer 115 mL/min (>60); Glucose 93 mg/dL (74-106); Sodium Level 139 mmol/L (136-145)
[2021-10-30 13:08] LABS: M R Staph aureus DNA By PCR Negative (Negative); Probe Check PASS; Specimen Processing Control PASS; Staph aureus DNA By PCR NEGATIVE (Negative)
== END | disposition home or self-care (01) ==
LOC: POLAB3 10:44
PROVIDERS: PCP Family Medicine Geriatric Medicine; Visit Provider Family Medicine Geriatric Medicine
DX: I48.0 Paroxysmal atrial fibrillation (principal); L03.90 Cellulitis, unspecified
CPT/HCPCS: 36415; 80048; 82550; 85025; 85610; 85652; 87070; 87205; 87640

== ENCOUNTER 2021-11-08 09:09 | Outpatient (RCR) | payer MEDICARE, BC, SELFPAY ==
[2021-10-15 20:21] VITALS: BMI 23.1
[2021-10-16 14:09] LABS: M R Staph aureus DNA By PCR Negative (Negative); Probe Check PASS; Specimen Processing Control PASS; Staph aureus DNA By PCR NEGATIVE (Negative)
[2021-11-08 10:12] LABS: International Normalized Ratio 1.4; Prothrombin Time (Protime)PT. 16.7 SECONDS (11.7-14.9)
== END 2021-11-08 23:59 | disposition home or self-care (01) ==
LOC: LAB 09:09
PROVIDERS: Family Provider Family Medicine Geriatric Medicine; PCP Family Medicine Geriatric Medicine; Referring Provider Internal Medicine Cardiovascular Disease; Visit Provider Internal Medicine Cardiovascular Disease
DX: Z79.01 Long term (current) use of anticoagulants (principal); T07.XXXA Unspecified multiple injuries, initial encounter; B95.62 Methicillin resistant Staphylococcus aureus infection as the cause of diseases classified elsewhere
CPT/HCPCS: 36415; 85610; 87070; 87205; 87640

== ENCOUNTER 2021-11-12 09:15 | Outpatient (RCR) | payer MEDICARE, BC, SELFPAY ==
[2021-11-05 09:27] VITALS: BP 138/75; PULSE 69; TEMP 36.2
--- NOTE | 2021-11-05 09:48 | HP.PCM_ITS ---
History of Present Illness Date of Service: 11/05/21 Progress of Wound: This 66-year-old male was seen in the wound care center for a right lateral lower extremity ulceration. Patient notes that he fell approximately 2 weeks ago. Patient is uncertain what he bumped his leg on but notes a wound formation at that time. Patient has history of alcoholism. Patient denies any constitutional symptoms notes some pain limited to the wound site mainly associated with manipulation or palpation of the wound site. Patient has been taking fluconazole as his culture grew Judy albicans. Patient has a long- term smoking history denies any history of easy fatigue with regards to his legs or leg cramping during prolonged ambulation. Patient has no other complaints at this time. 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 Nonrheumatic mitral valve regurgitation Other peripheral vascular disease Paroxysmal atrial fibrillation Pure hypercholesterolemia Sick sinus syndrome Sleep apnea Smoker Syncope Tobacco use disorder Home Medications albuterol sulfate 90 mcg/actuation aerosol inhaler (ProAir HFA) 2 puff inhalation Q4H SOB 07/24/17 [History Last Taken 10/01/21] trazodone 100 mg tablet 200 mg PO QHS mood 07/24/17 [History Last Taken 09/30/21] bupropion HCl (smoking deter) 150 mg tablet,12 hr sustained-release(smoking deterrent) 150 mg PO BID SMOKING 09/09/17 [History Last Taken 10/01/21] tamsulosin 0.4 mg capsule 0.4 mg PO BID urinary tract 09/08/18 [History Last Taken 10/01/21] cholecalciferol (vitamin D3) 50 mcg (2,000 unit) tablet 100 mcg PO DAILY supplement 01/16/21 [History Last Taken 10/01/21] tizanidine 4 mg tablet 4 mg PO BID muscle spasm 01/16/21 [History Last Taken 10/01/21] hydrocodone-acetaminophen 5-325mg 5mg-325mg 1 tab PO 4X/DAY PAIN 06/05/21 [History Last Taken 10/01/21] levothyroxine 100 mcg tablet 100 mcg PO DAILY THYROID 06/05/21 [History Last Taken 10/01/21] aspirin 81 mg tablet,delayed release (Adult Aspirin Regimen) 81 mg PO DAILY blood thinner 07/25/21 [History Last Taken 10/01/21] atorvastatin 40 mg tablet 40 mg PO QHS cholesterol 07/25/21 [History Last Taken 10/01/21] potassium 99 mg tablet 550 mg PO DAILY SUPPLEMENT 07/25/21 [History Last Taken 10/01/21] citalopram 20 mg tablet 20 mg PO DAILY depression 10/01/21 [History Last Taken 10/01/21] doxepin 150 mg capsule 150 mg PO DAILY depression 10/01/21 [History Last Taken 09/30/21] ferrous sulfate 325 mg (65 mg iron) tablet 325 mg PO DAILY supplement 10/01/21 [History Last Taken 10/01/21] warfarin 2.5 mg tablet 2.5 mg PO DAILY BLOOD THINNER 10/01/21 [History Last Taken 09/30/21] metoprolol succinate 50 mg tablet,extended release 24 hr 25 mg PO DAILY bp #0 TABLETS 10/02/21 [Rx Last Taken 09/30/21] fluconazole 150 mg tablet (Diflucan) 150 mg PO QWEEK Yeast infection in leg wound #4 tabs 10/31/21 [Rx Last Taken Unknown] hydrocodone-acetaminophen 5-325mg 5mg-325mg 1 tab PO Q6H PRN Pain (Scale Score 4-6) 11/05/21 [History Last Taken Unknown] levofloxacin 250 mg tablet 250 mg PO DAILY 11/05/21 [History Last Taken Unknown] Allergy/AdvReac Type Severity Reaction Status Date / Time No Known Allergies Allergy Verified 10/31/21 10:04 Family History Grandfather CAD (coronary artery disease) Father CAD (coronary artery disease) Hx of CABG Surgical History History of appendectomy History of hernia repair History of mitral valve replacement History of mitral valve replacement with bioprosthetic valve (07/27/14) History of shoulder surgery History of tricuspid valve repair (~07/27/14) History of tricuspid valve repair (~07/27/14) Social History Smoking Status: Current every day smoker tobacco type: cigars alcohol intake: current details: occasional substance use type: former substance user, crack/cocaine and heroin ROS Constitutional Constitutional: Denies anorexia, change in weight, chills or daytime sleepiness Eyes Eyes: Denies acute decrease in peripheral vision, change in eye color or change in vision ENT HEENT: Denies bleeding gums, change in voice or epistaxis Cardiovascular Cardiovascular: Denies abdominal bloating, abdominal edema or abdominal pain Respiratory/Chest Respiratory/Chest: Denies change in mental status, change in phlegm color or chest congestion Gastrointestinal Gastrointestinal: Denies belching, bloating or cramping Genitourinary Genitourinary: Denies burning urination, difficulty with ejaculations or movement Vital Signs Vital Signs Vital Signs: 11/05/21 09:27 Temperature 97.2 F L Temperature Source Temporal Pulse Rate 69 Blood Pressure 138/75 H Blood Pressure Mean 96 Blood Pressure Source Monitor Physical Exam Narrative Patient is alert oriented to person place and time. Patient is ambulatory. Vascular: Dorsalis pedis posterior tibial pulses biphasic upon Doppler examination of right lower extremity. No edema noted to bilateral lower extremity. Atrophic skin changes noted to distal feet bilaterally with diminished digital hair growth skin thinning shiny taut appearance. Neurologic: Light touch protective sensation intact to bilateral feet Dermatologic: Full-thickness ulceration noted to right lateral leg with a fibronecrotic base predebridement postdebridement the wound demonstrated 100% granular base clean skin edges no deep probing undermining or signs of infection. Pre and postdebridement measurements document nursing notes. This is noted to be lateral leg at the level of the mid fibula. Musculoskeletal: No pain with calf squeeze muscular strength full to bilateral lower extremity compartments no wound forming deformities noted. Debridement Note Debridement Note Post-Debridement Measurements and Additional Note: Post-Debridement Measurements/Treatment - Nurse 1 - General Ulcer Assessment Start: 11/05/21 09:27 Freq: Status: Active Protocol: ABHI Activity Type Activity Date Activity User E-sign Co-sign Detail Recorded Client Recorded Date Recorded By Document 11/05/21 09:27 ACACIA [id number] 11/05/21 09:31 AK 11/05/21 09:27 - Today's Visit Information Type of service Initial Visit Arrival Mode Ambulatory Patient Identification Verified (Name & Yes ) Patient Requires Transmission-Based No Precautions Safety Precautions NA Vital Signs Temperature (97.8 F-99.1 F) 97.2 F L Temperature Source Temporal Pulse Rate (60-100) 69 Pulse Location Monitor Blood Pressure (90/60-120/80) 138/75 H Blood Pressure Mean 96 Source Monitor History Since Last Visit- (Skip if this is Patient's initial visit) Left Footwear Regular Shoe Right Footwear Regular Shoe Pain Scale: 0-10 Numeric Is Patient Pain Free? Yes WC - Nurse 1 - General Ulcer Measurement Start: 11/05/21 09:27 Freq: Status: Active Protocol: Activity Type Activity Date Activity User E-sign Co-sign Detail Recorded Client Recorded Date Recorded By Document 11/05/21 09:27 ACACIA [id number] 11/05/21 09:31 ACACIA 11/05/21 09:27 Wound Center Nurse 1 #1 R lateral LE -Combined with other wound No -Current Size (cm) - Length 3 -Current Size (cm) - Width 2 -Current Size (cm) - Depth 0.1 -Total Square Cm 6 -Date of Last Picture (Recall this 11/05/21 field) -Photo Taken Yes -Epithelialization None Present -Tunneling No -Undermining/Tunneling No -Circular Undermining No -Change in Wound Grade/Stage No -Exudate Amt Medium -Exudate Type Serosanguineous -Wound Margin Distinct, Outline Attached -Granulation Amt Small (1-33%) -Granulation Quality Red -Slough/Fibrin Yes -Necrosis Amt Medium (34-66%) -Necrotic Tissue Type Adherent Slough -Structure Exposed N/A -Texture (Imelda-wound Skin Appearance) No Abnormality, Assessed -Moisture (Imelda-wound Skin Appearance) No Abnormality, Assessed -Color (Imelda-wound Skin Appearance) No Abnormality, Assessed -Temperature (Imelda-wound Skin No Abnormality Appearance) (Pt Warm) -Tenderness on Palpation (Imelda-wound No Skin Appearance) -Ulcer Cleansing Rinsed/ Irrigated with Saline -Foul Odor after Cleansing No -Anesthetic Used 5% Lidocaine Gel Right Calf (cm) 30 Right Ankle (cm) 19 Left Calf (cm) 30 Left Ankle (cm) 19.2 REKHA - Nurse 3 - General Ulcer D/C NN Start: 11/05/21 09:27 Freq: Status: Active Protocol: Activity Type Activity Date Activity User E-sign Co-sign Detail Recorded Client Recorded Date Recorded By Document 11/05/21 09:27 [email or web address] [id number] 11/05/21 09:31 ACACIA 11/05/21 09:27 Vital Signs Temperature (97.8 F-99.1 F) 97.2 F L Temperature Source Temporal Pulse Rate (60-100) 69 Pulse Location Monitor Blood Pressure (90/60-120/80) 138/75 H Blood Pressure Mean 96 Source Monitor Pain Scale: 0-10 Numeric Is Patient Pain Free? Yes Assessment/Plan Assessment/Plan (1) Peripheral vascular disease, unspecified: CODE(S): I73.9 - Peripheral vascular disease, unspecified (2) Non-pressure chronic ulcer of right calf with fat layer exposed: CODE(S): L97.212 - Non-pressure chronic ulcer of right calf with fat layer exposed PLAN: Patient examined evaluated, all findings discussed with patient in detail. Right lateral lower extremity wound was examined. No concerns for clinical infection at this time. Patient will complete his course of fluconazole for Judy Judy albicans. We will not add any antibiotics at this time. There is no evidence of deep tissue injury or deep abscess or hematoma on physical examination. No additional imaging required. Due to smoking history and objective findings I recommend ordering arterial studies to evaluate patient's blood flow status. I recommend to cessation of smoking at this time The right lateral leg wound was excisionally debrided down to including level of subcutaneous tissue of all nonviable tissue using a 5 mm dermal curette. Hemostasis obtained with light compression. Topical anesthesia used. Patient tolerated procedure well. Pre and postdebridement measurements document nursing notes. Wounds will be dressed 3 times a week with silver alginate dry sterile dressing and double Tubigrip We will continue to follow the patient weekly.
[2021-11-12 09:15] VITALS: BP 144/80; PULSE 69; RESP 16; TEMP 36.3
--- NOTE | 2021-11-12 09:32 | PCM.WC.PN ---
History of Present Illness Date of Service: 11/12/21 Progress of Wound: This 66-year-old male was seen in the wound care center for a right lateral lower extremity ulceration. Patient denies any changes since previous visit. Patient denies constitutional symptoms. Pain limited to the ulceration site. No other complaints at this time. Objective Data Objective Data Vital Signs: Vital Signs Temp Pulse Resp BP 97.4 F L 69 16 144/80 H 11/12/21 09:15 11/12/21 09:15 11/12/21 09:15 11/12/21 09:15 Oxygen Delivery Method Room Air Physical Exam Narrative Patient is alert oriented to person place and time. Patient is ambulatory. Vascular: Dorsalis pedis posterior tibial pulses biphasic upon Doppler examination of right lower extremity. No edema noted to bilateral lower extremity. Atrophic skin changes noted to distal feet bilaterally with diminished digital hair growth skin thinning shiny taut appearance. Neurologic: Light touch protective sensation intact to bilateral feet Dermatologic: Full-thickness ulceration noted to right lateral leg with a fibrotic granular base predebridement, postdebridement the wound demonstrated 100% granular base clean skin edges no deep probing undermining or signs of infection. Pre and postdebridement measurements document nursing notes. This is noted to be lateral leg at the level of the mid fibula. Musculoskeletal: No pain with calf squeeze muscular strength full to bilateral lower extremity compartments no wound forming deformities noted. Debridement Note Debridement Note Post-Debridement Measurements and Additional Note: Post-Debridement Measurements/Treatment - Nurse 1 - General Ulcer Assessment Start: 11/05/21 09:27 Freq: Status: Active Protocol: ABHI Activity Type Activity Date Activity User E-sign Co-sign Detail Recorded Client Recorded Date Recorded By Document 11/05/21 09:27 VT [id number] 11/05/21 09:31 [place] Document 11/12/21 09:15 [facility] [id number] 11/12/21 09:26 [facility] 11/05/21 11/12/21 09:27 09:15 - Today's Visit Information Type of service Initial Visit Follow-up Visit (Physician/[facility] ) Arrival Mode Ambulatory Ambulatory Transfer Assistance None Patient Identification Verified (Name & Yes Yes ) Patient Requires Transmission-Based No No Precautions Safety Precautions NA Vital Signs Temperature (97.8 F-99.1 F) 97.2 F L 97.4 F L Temperature Source Temporal Temporal Pulse Rate (60-100) 69 69 Pulse Location Monitor Monitor Respiratory Rate (12-18) 16 Respiratory rate source Observation Oxygen Delivery Method Room Air Blood Pressure (90/60-120/80) 138/75 H 144/80 H Blood Pressure Mean (mm Hg) 96 101 Source Monitor Monitor Blood Pressure Location Right Arm History Since Last Visit- (Skip if this is Patient's initial visit) Have you changed medications since your No last visit? Any new allergies or adverse reactions No Had a fall/change in ADL's that may No increase risk of falls Signs or symptoms of abuse and/or No neglect since last visit Have you been in the hospital since your No last visit? Has dressing in place as prescribed Yes Has compression in place as prescribed No Has offloadiing in place as prescribed N/A Experienced any changes in pain level or No management Left Footwear Regular Shoe Regular Shoe Right Footwear Regular Shoe Regular Shoe Pain Scale: 0-10 Numeric Is Patient Pain Free? Yes Yes WC - Nurse 1 - General Ulcer Measurement Start: 11/05/21 09:27 Freq: Status: Active Protocol: Activity Type Activity Date Activity User E-sign Co-sign Detail Recorded Client Recorded Date Recorded By Document 11/05/21 09:27 VT [id number] 11/05/21 09:31 VT Document 11/12/21 09:15 [facility] [id number] 11/12/21 09:26 [facility] 11/05/21 11/12/21 09:27 09:15 Wound Center Nurse 1 #1 R lateral LE -Combined with other wound No No -Current Size (cm) - Length 3 3.1 -Current Size (cm) - Width 2 1.4 -Current Size (cm) - Depth 0.1 0.1 -Total Square Cm 6 4.34 -Date of Last Picture (Recall this 11/05/21 field) -Photo Taken Yes -Epithelialization None Present Small 1-33% -Tunneling No No -Undermining/Tunneling No No -Circular Undermining No No -Change in Wound Grade/Stage No -Exudate Amt Medium Small -Exudate Type Serosanguineous Serosanguineous -Wound Margin Distinct, Distinct, Outline Outline Attached Attached -Granulation Amt Small (1-33%) Medium (34-66%) -Granulation Quality Red Red -Slough/Fibrin Yes Yes -Necrosis Amt Medium (34-66%) Medium (34-66%) -Necrotic Tissue Type Adherent Slough Adherent Slough -Structure Exposed N/A -Texture (Imelda-wound Skin Appearance) No Abnormality, Assessed, Assessed Scarring -Moisture (Imelda-wound Skin Appearance) No Abnormality, Assessed,Dry/ Assessed Scaly -Color (Imelda-wound Skin Appearance) No Abnormality, Assessed Assessed -Temperature (Imelda-wound Skin No Abnormality No Abnormality Appearance) (Pt Warm) (Pt Warm) -Tenderness on Palpation (Iemlda-wound No Yes Skin Appearance) -Ulcer Cleansing Rinsed/ Rinsed/ Irrigated with Irrigated with Saline Saline -Foul Odor after Cleansing No No -Anesthetic Used 5% Lidocaine 5% Lidocaine Gel Gel Right Calf (cm) 30 Right Ankle (cm) 19 Left Calf (cm) 30 Left Ankle (cm) 19.2 WC - Nurse 2 - General Ulcer CM Notes Start: 11/05/21 09:27 Freq: Status: Active Protocol: Activity Type Activity Date Activity User E-sign Co-sign Detail Recorded Client Recorded Date Recorded By Document 11/05/21 09:45 TICO [id number] 11/05/21 09:48 TICO 11/05/21 09:45 Wound Center Nurse 2 -Time 09:46 -Correct Patient Yes -Correct Side, Site, Position Yes -Correct Procedure Yes -Procedure Performed Yes -Type of Procedure Debridement -Clinical Debridement Subcutaneous -Tissue Removed Epidermis, Subcutaneous -Post Debridement (cm) - Length 3.5 -Post Debridement (cm) - Width 1.7 -Post Debridement (cm) - Depth 0.1 -Total Square (Post) (cm) 5.95 -Area of Debridement (cm) - Length 3.5 -Area of Debridement (cm) - Width 1.7 -Total Square (Area) (cm) 5.95 -Tunneling No -Undermining/Tunneling No -Circular Undermining No -Wound/Ulcer Outcome Not Healed -Ulcer Cleansing Rinsed/ Irrigated with Saline -Foul Odor after Cleansing No -Bioengineered Tissue No -Bleeding Controlled with Pressure -Treatment Response Procedure Tolerated Well -Offloading No -Debridement - Subq, 1st 20sq cm Yes Pain Scale: 0-10 Numeric Is Patient Pain Free? Yes - Nurse 3 - General Ulcer D/C NN Start: 11/05/21 09:27 Freq: Status: Active Protocol: Activity Type Activity Date Activity User E-sign Co-sign Detail Recorded Client Recorded Date Recorded By Document 11/05/21 09:27 ACACIA [id number] 11/05/21 09:31 AK Document 11/05/21 11:40 ACACIA [id number] 11/05/21 11:41 AK 11/05/21 11/05/21 09:27 11:40 Vital Signs Temperature (97.8 F-99.1 F) 97.2 F L Temperature Source Temporal Pulse Rate (60-100) 69 Pulse Location Monitor Blood Pressure (90/60-120/80) 138/75 H Blood Pressure Mean (mm Hg) 96 Source Monitor Pain Scale: 0-10 Numeric Is Patient Pain Free? Yes Yes Wound Care Nurse 3 #1 R lateral LE -Ulcer Cleansing Rinsed/ Irrigated with Saline -Foul Odor after Cleansing No -Negative Pressure Wound Therapy N/A -Primary Dressing Applied Aquacel AG 2x2 -Primary Dressing Covered/Secured with Dry Gauze & Roll Gauze, Secured with Tape -Aquacel AG 2x2 1 Right -Lotion applied to leg before No compression wrap -Tubular Bandage Double Layer -Size of Tubigrip Used Size E -Size E ($) 2 WC - Visit Discharge Discharge Condition Stable Ambulatory Status Ambulatory Transportation Private Auto Medication Reconcilliation completed & Yes provided to patient/care provider Assessment/Plan Assessment/Plan (1) Peripheral vascular disease, unspecified: CODE(S): I73.9 - Peripheral vascular disease, unspecified (2) Non-pressure chronic ulcer of right calf with fat layer exposed: CODE(S): L97.212 - Non-pressure chronic ulcer of right calf with fat layer exposed PLAN: Patient examined evaluated, all findings discussed with patient in detail. Patient will complete course of fluconazole. No additional antibiotics or antifungals indicated at this time. Wound healing significantly at this time. We will continue current treatment. There is no evidence of deep tissue injury or deep abscess or hematoma on physical examination. No additional imaging required. Awaiting vascular studies. The right lateral leg wound was excisionally debrided down to including level of subcutaneous tissue of all nonviable tissue using a 5 mm dermal curette. Hemostasis obtained with light compression. Topical anesthesia used. Patient tolerated procedure well. Pre and postdebridement measurements document nursing notes. Wounds will be dressed 3 times a week with silver alginate dry sterile dressing and double Tubigrip We will continue to follow the patient weekly.
== END 2021-11-14 23:59 | disposition home or self-care (01) ==
LOC: WC 09:15
PROVIDERS: PCP Family Medicine Geriatric Medicine; Visit Provider Podiatrist
DX: I73.9 Peripheral vascular disease, unspecified (principal); L97.212 Non-pressure chronic ulcer of right calf with fat layer exposed; I48.0 Paroxysmal atrial fibrillation; Z79.82 Long term (current) use of aspirin; I10 Essential (primary) hypertension; Z79.01 Long term (current) use of anticoagulants; E78.00 Pure hypercholesterolemia, unspecified; F17.200 Nicotine dependence, unspecified, uncomplicated; E03.9 Hypothyroidism, unspecified; Z86.718 Personal history of other venous thrombosis and embolism
CPT/HCPCS: 11042; 99213; G0463

== ENCOUNTER 2021-12-03 10:15 | Outpatient (RCR) | payer MEDICARE, BC, SELFPAY ==
[2021-11-15 00:50] VITALS: BP 144/80; PULSE 69; RESP 16; TEMP 36.3
--- NOTE | 2021-11-19 11:50 | PCM.WC.PN ---
History of Present Illness Date of Service: 11/19/21 Progress of Wound: This 66-year-old male was seen in the wound care center for a right lateral lower extremity ulceration. Patient denies any changes since previous visit. Patient denies constitutional symptoms. Pain limited to the ulceration site. No other complaints at this time. Objective Data Objective Data Vital Signs: Vital Signs Temp Pulse Resp BP 97.4 F L 69 16 144/80 H 11/15/21 00:50 11/15/21 00:50 11/15/21 00:50 11/15/21 00:50 Physical Exam Narrative Patient is alert oriented to person place and time. Patient is ambulatory. Vascular: Dorsalis pedis posterior tibial pulses biphasic upon Doppler examination of right lower extremity. No edema noted to bilateral lower extremity. Atrophic skin changes noted to distal feet bilaterally with diminished digital hair growth skin thinning shiny taut appearance. Neurologic: Light touch protective sensation intact to bilateral feet Dermatologic: Full-thickness ulceration noted to right lateral leg with a fibrotic granular base predebridement, postdebridement the wound demonstrated 100% granular base clean skin edges no deep probing undermining or signs of infection. Pre and postdebridement measurements document nursing notes. This is noted to be lateral leg at the level of the mid fibula. Musculoskeletal: No pain with calf squeeze muscular strength full to bilateral lower extremity compartments no wound forming deformities noted. Assessment/Plan Assessment/Plan (1) Peripheral vascular disease, unspecified: CODE(S): I73.9 - Peripheral vascular disease, unspecified (2) Non-pressure chronic ulcer of right calf with fat layer exposed: CODE(S): L97.212 - Non-pressure chronic ulcer of right calf with fat layer exposed PLAN: Patient examined evaluated, all findings discussed with patient in detail. Patient will complete course of fluconazole. No additional antibiotics or antifungals indicated at this time. Wound healing significantly at this time. We will continue current treatment. There is no evidence of deep tissue injury or deep abscess or hematoma on physical examination. No additional imaging required. Awaiting vascular studies. The right lateral leg wound was excisionally debrided down to including level of subcutaneous tissue of all nonviable tissue using a 5 mm dermal curette. Hemostasis obtained with light compression. Topical anesthesia used. Patient tolerated procedure well. Pre and postdebridement measurements document nursing notes. Wounds will be dressed 3 times a week with silver alginate dry sterile dressing and double Tubigrip We will continue to follow the patient weekly.
[2021-11-19 12:41] VITALS: BP 109/62; PULSE 68; TEMP 36.6
--- NOTE | 2021-12-03 08:52 | ART_ITS ---
Reason For Study: RLE WOUND Procedure A bilateral lower extremity continuous wave Doppler with analog waveform analysis,segmental pressures,and ankle brachial indexes without exercise. Left Segmental Pressures Left brachial= 129mmHg. Left posterior tibial artery = 168mmHg. Left dorsalis pedis artery = 155mmHg. The left posterior tibial artery waveforms are triphasic. The left dorsalis pedis waveforms are biphasic. Right Segmental Pressures Right brachial= 130mmHg. Right posterior tibial artery = 138mmHg. Right dorsalis pedis artery = 129mmHg. The right posterior tibial artery waveforms are triphasic. The right dorsalis pedis waveforms are biphasic. Indices The right resting ankle brachial index is 1.06. The right ankle brachial index by the posterior tibial artery is 1.06. The right ankle brachial index by the dorsalis pedis is 0.99. The left resting ankle brachial index is 1.29. The left ankle brachial index by the posterior tibial artery is 1.29. The left ankle brachial index by the dorsalis pedis is 1.19. VL/Lower Ext Art Exam w/o Exercis Interpretation Summary Triphasic and biphasic Doppler waveforms are noted at ankle level bilaterally. Pulse-volume recordings appear satisfactory at low thigh, calf, and ankle levels bilaterally . Resting ankle- brachial indices are normal bilaterally. There is no evidence of significant arterial occlusive disease in the lower ext remities bilaterally. Ordering Physician: Brodie Pickard Referring Physician: Fracisco Carvalho chi Performed By: Tessie Melendez RVT, RDMELONY
[2021-12-03 09:58] VITALS: BP 140/72; RESP 18; TEMP 36.8
--- NOTE | 2021-12-03 10:27 | PCM.WC.PN ---
History of Present Illness Date of Service: 12/03/21 Progress of Wound: This 66-year-old male was seen in the wound care center for a right lateral lower extremity ulceration. Patient denies any changes since previous visit. Patient denies constitutional symptoms. Pain limited to the ulceration site. No other complaints at this time. Objective Data Objective Data Vital Signs: Vital Signs Temp Pulse Resp BP 98.2 F 68 18 140/72 H 12/03/21 09:58 11/19/21 12:41 12/03/21 09:58 12/03/21 09:58 Physical Exam Narrative Patient is alert oriented to person place and time. Patient is ambulatory. Vascular: Dorsalis pedis posterior tibial pulses biphasic upon Doppler examination of right lower extremity. No edema noted to bilateral lower extremity. Atrophic skin changes noted to distal feet bilaterally with diminished digital hair growth skin thinning shiny taut appearance. Neurologic: Light touch protective sensation intact to bilateral feet Dermatologic: Full-thickness ulceration noted to right lateral leg with a fibrotic granular base predebridement, postdebridement the wound demonstrated 100% granular base clean skin edges no deep probing undermining or signs of infection. Pre and postdebridement measurements document nursing notes. This is noted to be lateral leg at the level of the mid fibula. Musculoskeletal: No pain with calf squeeze muscular strength full to bilateral lower extremity compartments no wound forming deformities noted. Debridement Note Debridement Note Post-Debridement Measurements and Additional Note: Post-Debridement Measurements/Treatment - Nurse 1 - General Ulcer Assessment Start: 11/19/21 11:58 Freq: Status: Active Protocol: REKHA.LOWEXT Activity Type Activity Date Activity User E-sign Co-sign Detail Recorded Client Recorded Date Recorded By Document 11/19/21 12:41 AK [id number] 11/19/21 12:43 AK Document 12/03/21 09:58 DL [id number] 12/03/21 10:05 DL 11/19/21 12/03/21 12:41 09:58 - Today's Visit Information Type of service Follow-up Visit Follow-up Visit (Physician/[facility] (Physician/[facility]GRAM PROPOSALS [facility]ORD[facility] ) ) Arrival Mode Ambulatory Ambulatory Transfer Assistance None Patient Identification Verified (Name & Yes Yes ) Patient Requires Transmission-Based No No Precautions Height and Weight Weight Measurement Method Standing Scale Vital Signs Temperature (97.8 F-99.1 F) 97.9 F 98.2 F Temperature Source Temporal Temporal Pulse Rate (60-100) 68 Pulse Location Monitor Respiratory Rate (12-18) 18 Respiratory rate source Observation Blood Pressure (90/60-120/80) 109/62 140/72 H Blood Pressure Mean (mm Hg) 77 94 Source Monitor Monitor History Since Last Visit- (Skip if this is Patient's initial visit) Have you changed medications since your No No last visit? Any new allergies or adverse reactions No No Had a fall/change in ADL's that may No No increase risk of falls Signs or symptoms of abuse and/or No No neglect since last visit Have you been in the hospital since your No No last visit? Has dressing in place as prescribed Yes Yes Has compression in place as prescribed N/A No Has offloadiing in place as prescribed N/A Yes Experienced any changes in pain level or No No management Left Footwear Regular Shoe Right Footwear Regular Shoe Pain Scale: 0-10 Numeric Is Patient Pain Free? Yes Yes WC - Nurse 1 - General Ulcer Measurement Start: 11/19/21 11:58 Freq: Status: Active Protocol: Activity Type Activity Date Activity User E-sign Co-sign Detail Recorded Client Recorded Date Recorded By Document 11/19/21 12:41 AK [id number] 11/19/21 12:43 AK Document 12/03/21 09:58 DL [id number] 12/03/21 10:05 DL 11/19/21 12/03/21 12:41 09:58 Wound Center Nurse 1 #1 R lateral LE -Combined with other wound No -Current Size (cm) - Length 1.1 2.1 -Current Size (cm) - Width 1 0.8 -Current Size (cm) - Depth 0.2 0.1 -Total Square Cm 1.1 1.68 -Photo Taken No No -Epithelialization None Present -Tunneling No -Undermining/Tunneling No -Circular Undermining No -Change in Wound Grade/Stage No -Exudate Amt Small Small -Exudate Type Serosanguineous Serosanguineous -Wound Margin Distinct, Distinct, Outline Outline Attached Attached -Granulation Amt Medium (34-66%) Large (67-100%) -Granulation Quality [place],Red [place] -Slough/Fibrin Yes -Necrosis Amt Small (1-33%) Small (1-33%) -Necrotic Tissue Type Adherent Slough Adherent Slough -Structure Exposed N/A -Texture (Imelda-wound Skin Appearance) No Abnormality, Scarring Assessed -Moisture (Imelda-wound Skin Appearance) No Abnormality, Dry/Scaly Assessed -Color (Imelda-wound Skin Appearance) No Abnormality, Hemosiderin Assessed Staining -Temperature (Imelda-wound Skin No Abnormality No Abnormality Appearance) (Pt Warm) (Pt Warm) -Tenderness on Palpation (Imelda-wound No No Skin Appearance) -Ulcer Cleansing Rinsed/ Rinsed/ Irrigated with Irrigated with Saline Saline -Foul Odor after Cleansing No No -Anesthetic Used 4% Lidocaine 5% Lidocaine Solution,5% Gel Lidocaine Gel Right Calf (cm) 28.3 Right Ankle (cm) 17.5 WC - Nurse 2 - General Ulcer CM Notes Start: 11/19/21 11:58 Freq: Status: Active Protocol: Activity Type Activity Date Activity User E-sign Co-sign Detail Recorded Client Recorded Date Recorded By Document 11/19/21 11:50 MW [id number] 11/19/21 12:22 MW 11/19/21 11:50 Wound Center Nurse 2 #1 R lateral LE -Time 11:50 -Correct Patient Yes -Correct Side, Site, Position Yes -Correct Procedure Yes -Procedure Performed Yes -Type of Procedure Debridement -Clinical Debridement Subcutaneous -Tissue Removed Subcutaneous -Post Debridement (cm) - Length 3.2 -Post Debridement (cm) - Width 1.4 -Post Debridement (cm) - Depth 0.1 -Total Square (Post) (cm) 4.48 -Area of Debridement (cm) - Length 3.2 -Area of Debridement (cm) - Width 1.4 -Total Square (Area) (cm) 4.48 -Tunneling No -Undermining/Tunneling No -Circular Undermining No -Wound/Ulcer Outcome Not Healed -Ulcer Cleansing Rinsed/ Irrigated with Saline -Foul Odor after Cleansing No -Bioengineered Tissue No -Bleeding Controlled with Pressure -Treatment Response Procedure Tolerated Well -Offloading No -Debridement - Subq, 1st 20sq cm Yes Pain Scale: 0-10 Numeric Is Patient Pain Free? Yes WC - Nurse 3 - General Ulcer D/C NN Start: 11/19/21 11:58 Freq: Status: Active Protocol: Activity Type Activity Date Activity User E-sign Co-sign Detail Recorded Client Recorded Date Recorded By Document 11/19/21 11:58 [facility] [id number] 11/19/21 11:59 [facility] 11/19/21 11:58 Wound Care Nurse 3 #1 R lateral LE -Ulcer Cleansing Rinsed/ Irrigated with Saline -Foul Odor after Cleansing No -Primary Dressing Applied Aquacel AG 4x4 -Primary Dressing Covered/Secured with Dry Gauze & Roll Gauze, Secured with Tape -Aquacel AG 4x4 1 Right -Tubular Bandage Double Layer -Size of Tubigrip Used Size D -Size D ($) 2 Treatment Response Procedure Tolerated Well Pain Scale: 0-10 Numeric Is Patient Pain Free? Yes WC - Visit Discharge Discharge Condition Stable Ambulatory Status Ambulatory Transportation Private Auto Assessment/Plan Assessment/Plan (1) Peripheral vascular disease, unspecified: CODE(S): I73.9 - Peripheral vascular disease, unspecified (2) Non-pressure chronic ulcer of right calf with fat layer exposed: CODE(S): L97.212 - Non-pressure chronic ulcer of right calf with fat layer exposed PLAN: Patient examined evaluated, all findings discussed with patient in detail. Patient will complete course of fluconazole. No additional antibiotics or antifungals indicated at this time. Wound healing significantly at this time. We will continue current treatment. There is no evidence of deep tissue injury or deep abscess or hematoma on physical examination. No additional imaging required. Awaiting vascular studies. The right lateral leg wound was excisionally debrided down to including level of subcutaneous tissue of all nonviable tissue using a 5 mm dermal curette. Hemostasis obtained with light compression. Topical anesthesia used. Patient tolerated procedure well. Pre and postdebridement measurements document nursing notes. Wounds will be dressed 3 times a week with silver alginate dry sterile dressing and double Tubigrip We will continue to follow the patient every other week. I have recommended use of epi fix graft to right lower extremity in order to accelerate healing.
== END 2021-12-15 23:59 | disposition home or self-care (01) ==
LOC: WC 10:15
PROVIDERS: PCP Family Medicine Geriatric Medicine; Referring Provider Podiatrist; Visit Provider Podiatrist
DX: I73.9 Peripheral vascular disease, unspecified (principal); L97.212 Non-pressure chronic ulcer of right calf with fat layer exposed
CPT/HCPCS: 11042; 93923

== ENCOUNTER 2022-01-07 10:45 | Outpatient (RCR) | payer MEDICARE, BC, SELFPAY ==
[2021-12-16 00:36] VITALS: BP 140/72; PULSE 68; RESP 18; TEMP 36.8
[2021-12-17 10:30] VITALS: BP 160/51; PULSE 70; RESP 16; TEMP 36.2
--- NOTE | 2021-12-17 11:07 | PN.PCM_ITS ---
History of Present Illness Date of Service: 12/17/21 Progress of Wound: This 66-year-old male was seen in the wound care center for a right lateral lower extremity ulceration. Patient denies any changes since previous visit. Patient denies constitutional symptoms. Pain limited to the ulceration site. No other complaints at this time. Objective Data Objective Data Vital Signs: Vital Signs Temp Pulse Resp BP O2 Del Method 97.1 F L 70 16 160/51 H Room Air 12/17/21 10:30 12/17/21 10:30 12/17/21 10:30 12/17/21 10:30 12/17/21 10:30 Oxygen Delivery Method Room Air Physical Exam Narrative Patient is alert oriented to person place and time. Patient is ambulatory. Vascular: Dorsalis pedis posterior tibial pulses biphasic upon Doppler examination of right lower extremity. No edema noted to bilateral lower extremity. Atrophic skin changes noted to distal feet bilaterally with diminished digital hair growth skin thinning shiny taut appearance. Neurologic: Light touch protective sensation intact to bilateral feet Dermatologic: Full-thickness ulceration noted to right lateral leg with a fibrotic granular base predebridement, postdebridement the wound demonstrated 100% granular base clean skin edges no deep probing undermining or signs of infection. Pre and postdebridement measurements document nursing notes. This is noted to be lateral leg at the level of the mid fibula. Musculoskeletal: No pain with calf squeeze muscular strength full to bilateral lower extremity compartments no wound forming deformities noted. Debridement Note Debridement Note Post-Debridement Measurements and Additional Note: Post-Debridement Measurements/Treatment - Nurse 1 - General Ulcer Assessment Start: 12/17/21 10:30 Freq: Status: Active Protocol: REKHA.CHACHA Activity Type Activity Date Activity User E-sign Co-sign Detail Recorded Client Recorded Date Recorded By Document 12/17/21 10:30 [facility] [id number] 12/17/21 10:38 [facility] 12/17/21 10:30 - Today's Visit Information Type of service Follow-up Visit (Physician/VENUE COORDINATOR ) Arrival Mode Ambulatory Transfer Assistance None Patient Identification Verified (Name & Yes ) Patient Requires Transmission-Based No Precautions Vital Signs Temperature (97.8 F-99.1 F) 97.1 F L Temperature Source Temporal Pulse Rate (60-100) 70 Pulse Location Monitor Respiratory Rate (12-18) 16 Respiratory rate source Observation Oxygen Delivery Method Room Air Blood Pressure (90/60-120/80) 160/51 H Blood Pressure Mean (mm Hg) 87 Source Monitor Position Sitting Blood Pressure Location Right Arm History Since Last Visit- (Skip if this is Patient's initial visit) Have you changed medications since your No last visit? Any new allergies or adverse reactions No Had a fall/change in ADL's that may No increase risk of falls Signs or symptoms of abuse and/or No neglect since last visit Have you been in the hospital since your No last visit? Has dressing in place as prescribed Yes Has compression in place as prescribed No Has offloadiing in place as prescribed N/A Experienced any changes in pain level or No management Left Footwear Regular Shoe Right Footwear Regular Shoe Pain Scale: 0-10 Numeric Is Patient Pain Free? Yes - Nurse 1 - General Ulcer Measurement Start: 12/17/21 10:30 Freq: Status: Active Protocol: Activity Type Activity Date Activity User E-sign Co-sign Detail Recorded Client Recorded Date Recorded By Document 12/17/21 10:30 [facility] [id number] 12/17/21 10:38 [facility] 12/17/21 10:30 Wound Center Nurse 1 #1 R lateral LE -Combined with other wound No -Current Size (cm) - Length 2 -Current Size (cm) - Width 1 -Current Size (cm) - Depth 0.1 -Total Square Cm 2 -Photo Taken No -Epithelialization Small 1-33% -Tunneling No -Undermining/Tunneling No -Circular Undermining No -Exudate Amt Small -Exudate Type Serosanguineous -Wound Margin Distinct, Outline Attached -Granulation Amt Large (67-100%) -Granulation Quality Red -Slough/Fibrin Yes -Necrosis Amt Small (1-33%) -Necrotic Tissue Type Adherent Slough -Texture (Imelda-wound Skin Appearance) Assessed, Scarring -Moisture (Imelda-wound Skin Appearance) Assessed,Dry/ Scaly -Color (Imelda-wound Skin Appearance) Assessed -Temperature (Imelda-wound Skin No Abnormality Appearance) (Pt Warm) -Tenderness on Palpation (Imelda-wound No Skin Appearance) -Ulcer Cleansing Rinsed/ Irrigated with Saline -Foul Odor after Cleansing No -Anesthetic Used 5% Lidocaine Gel Right Calf (cm) 30.7 Right Ankle (cm) 18.6 - Nurse 2 - General Ulcer CM Notes Start: 12/17/21 10:30 Freq: Status: Active Protocol: Activity Type Activity Date Activity User E-sign Co-sign Detail Recorded Client Recorded Date Recorded By Document 12/17/21 10:51 [facility] [id number] 12/17/21 10:52 12/17/21 10:51 Wound Center Nurse 2 #1 R lateral LE -Time 10:52 -Correct Patient Yes -Correct Side, Site, Position Yes -Correct Procedure Yes -Procedure Performed Yes -Type of Procedure Debridement -Clinical Debridement Subcutaneous -Tissue Removed Subcutaneous -Post Debridement (cm) - Length 2.1 -Post Debridement (cm) - Width 1.1 -Post Debridement (cm) - Depth 0.1 -Total Square (Post) (cm) 2.31 -Area of Debridement (cm) - Length 2.1 -Area of Debridement (cm) - Width 1.1 -Total Square (Area) (cm) 2.31 -Tunneling No -Undermining/Tunneling No -Circular Undermining No -Wound/Ulcer Outcome Not Healed -Ulcer Cleansing Rinsed/ Irrigated with Saline -Foul Odor after Cleansing No -Bioengineered Tissue No -Bleeding Controlled with Pressure -Treatment Response Procedure Tolerated Well -Offloading No -Debridement - Subq, 1st 20sq cm Yes Pain Scale: 0-10 Numeric Is Patient Pain Free? Yes - Nurse 3 - General Ulcer D/C NN Start: 12/17/21 10:30 Freq: Status: Active Protocol: Activity Type Activity Date Activity User E-sign Co-sign Detail Recorded Client Recorded Date Recorded By Document 12/17/21 10:52 TICO [id number] 12/17/21 10:56 12/17/21 10:52 Wound Care Nurse 3 #1 R lateral LE -Ulcer Cleansing Rinsed/ Irrigated with Saline -Foul Odor after Cleansing No -Primary Dressing Applied Aquacel AG 2x2 -Primary Dressing Covered/Secured with Dry Gauze & Roll Gauze, Secured with Tape -Aquacel AG 2x2 1 Right -Compression Wrap Chase Wrap Pain Scale: 0-10 Numeric Is Patient Pain Free? Yes Teaching: Wound Center Skin Care -Person Taught Patient -Teaching Method Discussion, Demonstration -Response to teaching Return demonstration, Verbalize understanding Dressing Your Wound -Person Taught Patient -Teaching Method Discussion, Demonstration -Response to teaching Return demonstration, Verbalize understanding WC - Visit Discharge Discharge Condition Stable Ambulatory Status Ambulatory Transportation Private Auto Medication Reconcilliation completed & Yes provided to patient/care provider Clinical Summary of Care Provided Yes Assessment/Plan Assessment/Plan (1) Peripheral vascular disease, unspecified: CODE(S): I73.9 - Peripheral vascular disease, unspecified (2) Non-pressure chronic ulcer of right calf with fat layer exposed: CODE(S): L97.212 - Non-pressure chronic ulcer of right calf with fat layer exposed PLAN: Patient examined evaluated, all findings discussed with patient in detail. Patient will complete course of fluconazole. No additional antibiotics or antifungals indicated at this time. Wound healing significantly at this time. We will continue current treatment. There is no evidence of deep tissue injury or deep abscess or hematoma on physical examination. No additional imaging required. Awaiting vascular studies. The right lateral leg wound was excisionally debrided down to including level of subcutaneous tissue of all nonviable tissue using a 5 mm dermal curette. Hemostasis obtained with light compression. Topical anesthesia used. Patient tolerated procedure well. Pre and postdebridement measurements document nursing notes. Wounds will be dressed 3 times a week with silver alginate dry sterile dressing and double Tubigrip We will continue to follow the patient every other week. I have recommended use of epi fix graft to right lower extremity in order to accelerate healing.
[2021-12-24 08:49] VITALS: BP 126/68; PULSE 77; RESP 16; TEMP 36.1
--- NOTE | 2021-12-24 09:24 | PN.PCM_ITS ---
History of Present Illness Date of Service: 12/24/21 Progress of Wound: This 66-year-old male was seen in the wound care center for a right lateral lower extremity ulceration. Patient denies any changes since previous visit. Patient denies constitutional symptoms. Pain limited to the ulceration site. No other complaints at this time. Objective Data Objective Data Vital Signs: Vital Signs Temp Pulse Resp BP O2 Del Method 97.0 F L 77 16 126/68 H Room Air 12/24/21 08:49 12/24/21 08:49 12/24/21 08:49 12/24/21 08:49 12/24/21 08:49 Oxygen Delivery Method Room Air Physical Exam Narrative Patient is alert oriented to person place and time. Patient is ambulatory. Vascular: Dorsalis pedis posterior tibial pulses biphasic upon Doppler examination of right lower extremity. No edema noted to bilateral lower extremity. Atrophic skin changes noted to distal feet bilaterally with diminished digital hair growth skin thinning shiny taut appearance. Neurologic: Light touch protective sensation intact to bilateral feet Dermatologic: Full-thickness ulceration noted to right lateral leg with a fibrotic granular base predebridement, postdebridement the wound demonstrated 100% granular base clean skin edges no deep probing undermining or signs of infection. Pre and postdebridement measurements document nursing notes. This is noted to be lateral leg at the level of the mid fibula. Musculoskeletal: No pain with calf squeeze muscular strength full to bilateral lower extremity compartments no wound forming deformities noted. Debridement Note Debridement Note Post-Debridement Measurements and Additional Note: Post-Debridement Measurements/Treatment - Nurse 1 - General Ulcer Assessment Start: 12/17/21 10:30 Freq: Status: Active Protocol: ABHI Activity Type Activity Date Activity User E-sign Co-sign Detail Recorded Client Recorded Date Recorded By Document 12/17/21 10:30 [facility] [id number] 12/17/21 10:38 [facility] Document 12/24/21 08:49 MW Desktop 12/24/21 08:51 MW 12/17/21 12/24/21 10:30 08:49 - Today's Visit Information Type of service Follow-up Visit Follow-up Visit (Physician/ASSEMBLY INSTRUCTIONS WRITER (Physician/ASSEMBLY INSTRUCTIONS WRITER ) ) Arrival Mode Ambulatory Ambulatory Transfer Assistance None None Patient Identification Verified (Name & Yes Yes ) Patient Requires Transmission-Based No No Precautions Safety Precautions NA Vital Signs Temperature (97.8 F-99.1 F) 97.1 F L 97.0 F L Temperature Source Temporal Temporal Pulse Rate (60-100) 70 77 Pulse Location Monitor Monitor Respiratory Rate (12-18) 16 16 Respiratory rate source Observation Observation Oxygen Delivery Method Room Air Room Air Blood Pressure (90/60-120/80) 160/51 H 126/68 H Blood Pressure Mean (mm Hg) 87 87 Source Monitor Monitor Position Sitting Sitting Blood Pressure Location Right Arm Left Arm History Since Last Visit- (Skip if this is Patient's initial visit) Have you changed medications since your No No last visit? Any new allergies or adverse reactions No No Had a fall/change in ADL's that may No No increase risk of falls Signs or symptoms of abuse and/or No No neglect since last visit Have you been in the hospital since your No No last visit? Has dressing in place as prescribed Yes Yes Has compression in place as prescribed No N/A Has offloadiing in place as prescribed N/A N/A Experienced any changes in pain level or No No management Left Footwear Regular Shoe Regular Shoe Right Footwear Regular Shoe Regular Shoe Pain Scale: 0-10 Numeric Is Patient Pain Free? Yes Yes WC - Nurse 1 - General Ulcer Measurement Start: 12/17/21 10:30 Freq: Status: Active Protocol: Activity Type Activity Date Activity User E-sign Co-sign Detail Recorded Client Recorded Date Recorded By Document 12/17/21 10:30 [facility] [id number] 12/17/21 10:38 [facility] Document 12/24/21 08:49 MW Desktop 12/24/21 08:51 MW 12/17/21 12/24/21 10:30 08:49 Wound Center Nurse 1 #1 R lateral LE -Combined with other wound No No -Current Size (cm) - Length 2 1.3 -Current Size (cm) - Width 1 0.6 -Current Size (cm) - Depth 0.1 0.1 -Total Square Cm 2 0.78 -Photo Taken No No -Epithelialization Small 1-33% None Present -Tunneling No No -Undermining/Tunneling No No -Circular Undermining No No -Exudate Amt Small Small -Exudate Type Serosanguineous Serosanguineous -Wound Margin Distinct, Flat & Intact Outline Attached -Granulation Amt Large (67-100%) Large (67-100%) -Granulation Quality Red Red -Slough/Fibrin Yes Yes -Necrosis Amt Small (1-33%) None Present (0 %) -Necrotic Tissue Type Adherent Slough Adherent Slough -Structure Exposed N/A -Texture (Imelda-wound Skin Appearance) Assessed, Assessed, Scarring Scarring -Moisture (Imelda-wound Skin Appearance) Assessed,Dry/ Assessed,Dry/ Scaly Scaly -Color (Imelda-wound Skin Appearance) Assessed No Abnormality, Assessed -Temperature (Imelda-wound Skin No Abnormality No Abnormality Appearance) (Pt Warm) (Pt Warm) -Tenderness on Palpation (Imelda-wound No Yes Skin Appearance) -Ulcer Cleansing Rinsed/ Rinsed/ Irrigated with Irrigated with Saline Saline -Foul Odor after Cleansing No No -Anesthetic Used 5% Lidocaine 5% Lidocaine Gel Gel Lower Limb Edema Present No Right Calf (cm) 30.7 Right Ankle (cm) 18.6 WC - Nurse 2 - General Ulcer CM Notes Start: 12/17/21 10:30 Freq: Status: Active Protocol: Activity Type Activity Date Activity User E-sign Co-sign Detail Recorded Client Recorded Date Recorded By Document 12/17/21 10:51 [facility]ICO [id number] 12/17/21 10:52 TICO 12/17/21 10:51 Wound Center Nurse 2 #1 R lateral LE -Time 10:52 -Correct Patient Yes -Correct Side, Site, Position Yes -Correct Procedure Yes -Procedure Performed Yes -Type of Procedure Debridement -Clinical Debridement Subcutaneous -Tissue Removed Subcutaneous -Post Debridement (cm) - Length 2.1 -Post Debridement (cm) - Width 1.1 -Post Debridement (cm) - Depth 0.1 -Total Square (Post) (cm) 2.31 -Area of Debridement (cm) - Length 2.1 -Area of Debridement (cm) - Width 1.1 -Total Square (Area) (cm) 2.31 -Tunneling No -Undermining/Tunneling No -Circular Undermining No -Wound/Ulcer Outcome Not Healed -Ulcer Cleansing Rinsed/ Irrigated with Saline -Foul Odor after Cleansing No -Bioengineered Tissue No -Bleeding Controlled with Pressure -Treatment Response Procedure Tolerated Well -Offloading No -Debridement - Subq, 1st 20sq cm Yes Pain Scale: 0-10 Numeric Is Patient Pain Free? Yes WC - Nurse 3 - General Ulcer D/C NN Start: 12/17/21 10:30 Freq: Status: Active Protocol: Activity Type Activity Date Activity User E-sign Co-sign Detail Recorded Client Recorded Date Recorded By Document 12/17/21 10:52 [facility]ICO [id number] 12/17/21 10:56 TICO 12/17/21 10:52 Wound Care Nurse 3 #1 R lateral LE -Ulcer Cleansing Rinsed/ Irrigated with Saline -Foul Odor after Cleansing No -Primary Dressing Applied Aquacel AG 2x2 -Primary Dressing Covered/Secured with Dry Gauze & Roll Gauze, Secured with Tape -Aquacel AG 2x2 1 Right -Compression Wrap Chase Wrap Pain Scale: 0-10 Numeric Is Patient Pain Free? Yes Teaching: Wound Center Skin Care -Person Taught Patient -Teaching Method Discussion, Demonstration -Response to teaching Return demonstration, Verbalize understanding Dressing Your Wound -Person Taught Patient -Teaching Method Discussion, Demonstration -Response to teaching Return demonstration, Verbalize understanding WC - Visit Discharge Discharge Condition Stable Ambulatory Status Ambulatory Transportation Private Auto Medication Reconcilliation completed & Yes provided to patient/care provider Clinical Summary of Care Provided Yes Assessment/Plan Assessment/Plan (1) Peripheral vascular disease, unspecified: CODE(S): I73.9 - Peripheral vascular disease, unspecified (2) Non-pressure chronic ulcer of right calf with fat layer exposed: CODE(S): L97.212 - Non-pressure chronic ulcer of right calf with fat layer exposed PLAN: Patient examined evaluated, all findings discussed with patient in detail. Wound healing significantly at this time. The right lateral leg wound was excisionally debrided down to including level of subcutaneous tissue of all nonviable tissue using a 5 mm dermal curette. Hemostasis obtained with light compression. Topical anesthesia used. Patient tolerated procedure well. Pre and postdebridement measurements document nursing notes. Today an epifix 18 mm disc was applied to the right lateral leg wound. 3 billing units. Expires 09/15/2026. The entire graft was used, no waste. Overlying Adaptic and Steri-Strips were applied to secure the graft in place. Patient will change the outer layer of dressing 3 times a week. Wounds will be dressed 3 times a week with silver alginate dry sterile dressing and double Tubigrip We will continue to follow the patient every week. Patient counseled on signs symptoms of infection will contact our office if he notices them.
[2021-12-31 09:30] VITALS: BP 143/78; PULSE 72; TEMP 36.2
--- NOTE | 2021-12-31 10:07 | PN.PCM_ITS ---
History of Present Illness Date of Service: 12/31/21 Progress of Wound: This 66-year-old male was seen in the wound care center for a right lateral lower extremity ulceration. Patient denies any changes since previous visit. Patient denies constitutional symptoms. Pain limited to the ulceration site. No other complaints at this time. Objective Data Objective Data Vital Signs: Vital Signs Temp Pulse Resp BP O2 Del Method 97.1 F L 72 16 143/78 H Room Air 12/31/21 09:30 12/31/21 09:30 12/24/21 08:49 12/31/21 09:30 12/24/21 08:49 Oxygen Delivery Method Room Air Physical Exam Narrative Patient is alert oriented to person place and time. Patient is ambulatory. Vascular: Dorsalis pedis posterior tibial pulses biphasic upon Doppler examination of right lower extremity. No edema noted to bilateral lower extremity. Atrophic skin changes noted to distal feet bilaterally with diminished digital hair growth skin thinning shiny taut appearance. Neurologic: Light touch protective sensation intact to bilateral feet Dermatologic: Full-thickness ulceration noted to right lateral leg with a fibrotic granular base predebridement, postdebridement the wound demonstrated 100% granular base clean skin edges no deep probing undermining or signs of infection. Pre and postdebridement measurements document nursing notes. This is noted to be lateral leg at the level of the mid fibula. Musculoskeletal: No pain with calf squeeze muscular strength full to bilateral lower extremity compartments no wound forming deformities noted. Debridement Note Debridement Note Post-Debridement Measurements and Additional Note: Post-Debridement Measurements/Treatment - Nurse 1 - General Ulcer Assessment Start: 12/17/21 10:30 Freq: Status: Active Protocol: ABHI Activity Type Activity Date Activity User E-sign Co-sign Detail Recorded Client Recorded Date Recorded By Document 12/17/21 10:30 [facility] [id number] 12/17/21 10:38 [facility] Document 12/24/21 08:49 MW Desktop 12/24/21 08:51 MW Document 12/31/21 09:30 AK [id number] 12/31/21 09:38 AK 12/17/21 12/24/21 12/31/21 10:30 08:49 09:30 - Today's Visit Information Type of service Follow-up Visit Follow-up Visit Follow-up Visit (Physician/HIGH PRESSURE BOILER OPERATOR (Physician/HIGH PRESSURE BOILER OPERATOR (Physician/HIGH PRESSURE BOILER OPERATOR ) ) ) Arrival Mode Ambulatory Ambulatory Ambulatory Transfer Assistance None None Patient Identification Verified (Name & Yes Yes Yes ) Patient Requires Transmission-Based No No No Precautions Safety Precautions NA Vital Signs Temperature (97.8 F-99.1 F) 97.1 F L 97.0 F L 97.1 F L Temperature Source Temporal Temporal Temporal Pulse Rate (60-100) 70 77 72 Pulse Location Monitor Monitor Monitor Respiratory Rate (12-18) 16 16 Respiratory rate source Observation Observation Oxygen Delivery Method Room Air Room Air Blood Pressure (90/60-120/80) 160/51 H 126/68 H 143/78 H Blood Pressure Mean (mm Hg) 87 87 99 Source Monitor Monitor Monitor Position Sitting Sitting Blood Pressure Location Right Arm Left Arm History Since Last Visit- (Skip if this is Patient's initial visit) Have you changed medications since your No No No last visit? Any new allergies or adverse reactions No No No Had a fall/change in ADL's that may No No No increase risk of falls Signs or symptoms of abuse and/or No No No neglect since last visit Have you been in the hospital since your No No No last visit? Has dressing in place as prescribed Yes Yes Yes Has compression in place as prescribed No N/A N/A Has offloadiing in place as prescribed N/A N/A N/A Experienced any changes in pain level or No No No management Left Footwear Regular Shoe Regular Shoe Regular Shoe Right Footwear Regular Shoe Regular Shoe Regular Shoe Pain Scale: 0-10 Numeric Is Patient Pain Free? Yes Yes Yes WC - Nurse 1 - General Ulcer Measurement Start: 12/17/21 10:30 Freq: Status: Active Protocol: Activity Type Activity Date Activity User E-sign Co-sign Detail Recorded Client Recorded Date Recorded By Document 12/17/21 10:30 [facility] [id number] 12/17/21 10:38 [facility] Document 12/24/21 08:49 MW Desktop 12/24/21 08:51 MW Document 12/31/21 09:30 AK [id number] 12/31/21 09:38 AK 12/17/21 12/24/21 12/31/21 10:30 08:49 09:30 Wound Center Nurse 1 #1 R lateral LE -Combined with other wound No No No -Current Size (cm) - Length 2 1.3 1.5 -Current Size (cm) - Width 1 0.6 1.2 -Current Size (cm) - Depth 0.1 0.1 0.1 -Total Square Cm 2 0.78 1.80 -Photo Taken No No No -Epithelialization Small 1-33% None Present -Tunneling No No No -Undermining/Tunneling No No No -Circular Undermining No No No -Change in Wound Grade/Stage No -Exudate Amt Small Small Small -Exudate Type Serosanguineous Serosanguineous -Wound Margin Distinct, Flat & Intact Distinct, Outline Outline Attached Attached -Granulation Amt Large (67-100%) Large (67-100%) Small (1-33%) -Granulation Quality Red Red N/A -Slough/Fibrin Yes Yes Yes -Necrosis Amt Small (1-33%) None Present (0 Large (67-100%) %) -Necrotic Tissue Type Adherent Slough Adherent Slough Eschar -Structure Exposed N/A N/A -Texture (Imelda-wound Skin Appearance) Assessed, Assessed, No Abnormality, Scarring Scarring Assessed -Moisture (Imelda-wound Skin Appearance) Assessed,Dry/ Assessed,Dry/ No Abnormality, Scaly Scaly Assessed -Color (Imelda-wound Skin Appearance) Assessed No Abnormality, No Abnormality, Assessed Assessed -Temperature (Imelda-wound Skin No Abnormality No Abnormality No Abnormality Appearance) (Pt Warm) (Pt Warm) (Pt Warm) -Tenderness on Palpation (Imelda-wound No Yes No Skin Appearance) -Ulcer Cleansing Rinsed/ Rinsed/ Soap and Water Irrigated with Irrigated with Saline Saline -Foul Odor after Cleansing No No No -Anesthetic Used 5% Lidocaine 5% Lidocaine 5% Lidocaine Gel Gel Gel Lower Limb Edema Present No Right Calf (cm) 30.7 Right Ankle (cm) 18.6 WC - Nurse 2 - General Ulcer CM Notes Start: 12/17/21 10:30 Freq: Status: Active Protocol: Activity Type Activity Date Activity User E-sign Co-sign Detail Recorded Client Recorded Date Recorded By Document 12/17/21 10:51 TICO [id number] 12/17/21 10:52 TICO Document 12/24/21 09:24 TICO [id number] 12/24/21 09:25 JF Document 12/31/21 09:50 [id number] 12/31/21 09:57 JF 12/17/21 12/24/21 12/31/21 10:51 09:24 09:50 Wound Center Nurse 2 #1 R lateral LE -Time 10:52 09:24 09:51 -Correct Patient Yes Yes Yes -Correct Side, Site, Position Yes Yes Yes -Correct Procedure Yes Yes Yes -Procedure Performed Yes Yes Yes -Type of Procedure Debridement Debridement Debridement -Clinical Debridement Subcutaneous Subcutaneous Subcutaneous -Tissue Removed Subcutaneous Subcutaneous Subcutaneous -Post Debridement (cm) - Length 2.1 1.4 1.0 -Post Debridement (cm) - Width 1.1 0.6 0.7 -Post Debridement (cm) - Depth 0.1 0.1 0.1 -Total Square (Post) (cm) 2.31 0.84 0.70 -Area of Debridement (cm) - Length 2.1 1.4 1.0 -Area of Debridement (cm) - Width 1.1 0.6 0.7 -Total Square (Area) (cm) 2.31 0.84 0.70 -Tunneling No No No -Undermining/Tunneling No No No -Circular Undermining No No No -Wound/Ulcer Outcome Not Healed Not Healed Not Healed -Ulcer Cleansing Rinsed/ Rinsed/ Rinsed/ Irrigated with Irrigated with Irrigated with Saline Saline Saline -Foul Odor after Cleansing No No No -Bioengineered Tissue No Yes Yes -Type of Bioengineered Tissue Epifix 18mm Epifix 18mm Disc Disc -Expiration Date 09/15/26 09/15/26 -Product Lot Number [id number] -Percent Used 100 100 -Lot number of Saline Used [id number] -Bleeding Controlled with Pressure Pressure Pressure -Treatment Response Procedure Procedure Procedure Tolerated Well Tolerated Well Tolerated Well -Offloading No No No -Debridement - Subq, 1st 20sq cm Yes No No -Apply Skin Sub - 1st 25 sq cm - Legs 1 1 -Epifix 18mm Disc 3 3 Pain Scale: 0-10 Numeric Is Patient Pain Free? Yes Yes Yes WC - Nurse 3 - General Ulcer D/C NN Start: 12/17/21 10:30 Freq: Status: Active Protocol: Activity Type Activity Date Activity User E-sign Co-sign Detail Recorded Client Recorded Date Recorded By Document 12/17/21 10:52 [id number] 12/17/21 10:56 Document 12/24/21 09:35 MW Desktop 12/24/21 09:36 MW 12/17/21 12/24/21 10:52 09:35 Wound Care Nurse 3 #1 R lateral LE -Ulcer Cleansing Rinsed/ Not Cleansed Irrigated with Saline -Foul Odor after Cleansing No No -Negative Pressure Wound Therapy N/A -Primary Dressing Applied Aquacel AG 2x2 -Primary Dressing Covered/Secured with Dry Gauze & Dry Gauze & Roll Gauze, Roll Gauze, Secured with Secured with Tape Tape -Aquacel AG 2x2 1 Right -Lotion applied to leg before No compression wrap -Compression Wrap Chase Wrap -Size of Tubigrip Used Size D -Size D ($) 1 Treatment Response Procedure Tolerated Well Pain Scale: 0-10 Numeric Is Patient Pain Free? Yes Yes Teaching: Wound Center Skin Care -Person Taught Patient -Teaching Method Discussion, Demonstration -Response to teaching Return demonstration, Verbalize understanding Dressing Your Wound -Person Taught Patient Patient -Teaching Method Discussion, Discussion, Demonstration Demonstration -Response to teaching Return Return demonstration, demonstration Verbalize understanding WC - Visit Discharge Discharge Condition Stable Stable Ambulatory Status Ambulatory Ambulatory Transportation Private Auto Private Auto Accompanied by self Medication Reconcilliation completed & Yes No provided to patient/care provider Clinical Summary of Care Provided Yes Yes Assessment/Plan Assessment/Plan (1) Peripheral vascular disease, unspecified: CODE(S): I73.9 - Peripheral vascular disease, unspecified (2) Non-pressure chronic ulcer of right calf with fat layer exposed: CODE(S): L97.212 - Non-pressure chronic ulcer of right calf with fat layer exposed PLAN: Patient examined evaluated, all findings discussed with patient in detail. Wound healing significantly at this time. The right lateral leg wound was excisionally debrided down to including level of subcutaneous tissue of all nonviable tissue using a 5 mm dermal curette. Hemostasis obtained with light compression. Topical anesthesia used. Patient tolerated procedure well. Pre and postdebridement measurements document nursing notes. Today an epifix 18 mm disc was applied to the right lateral leg wound. 3 billing units. Expires 09/15/2026. The entire graft was used, no waste. Overlying Adaptic and Steri-Strips were applied to secure the graft in place. Patient will change the outer layer of dressing 3 times a week. Wounds will be dressed 3 times a week with silver alginate dry sterile dressing and double Tubigrip We will continue to follow the patient every week. Patient counseled on signs symptoms of infection will contact our office if he notices them.
[2022-01-07 10:26] VITALS: BP 135/78; PULSE 70; RESP 18; TEMP 36.6
--- NOTE | 2022-01-07 11:59 | PCM.WC.PN ---
History of Present Illness Date of Service: 01/07/22 Progress of Wound: This 66-year-old male was seen in the wound care center for a right lateral lower extremity ulceration. Patient denies any changes since previous visit. Patient denies constitutional symptoms. Pain limited to the ulceration site. No other complaints at this time. Objective Data Objective Data Vital Signs: Vital Signs Temp Pulse Resp BP O2 Del Method 97.8 F 70 18 135/78 H Room Air 01/07/22 10:26 01/07/22 10:26 01/07/22 10:26 01/07/22 10:26 12/24/21 08:49 Oxygen Delivery Method Room Air Physical Exam Narrative Patient is alert oriented to person place and time. Patient is ambulatory. Vascular: Dorsalis pedis posterior tibial pulses biphasic upon Doppler examination of right lower extremity. No edema noted to bilateral lower extremity. Atrophic skin changes noted to distal feet bilaterally with diminished digital hair growth skin thinning shiny taut appearance. Neurologic: Light touch protective sensation intact to bilateral feet Dermatologic: Full-thickness ulceration noted to right lateral leg healed at this time. No signs of hypertrophy or infection. Musculoskeletal: No pain with calf squeeze muscular strength full to bilateral lower extremity compartments no wound forming deformities noted. Debridement Note Debridement Note Post-Debridement Measurements and Additional Note: Post-Debridement Measurements/Treatment - Nurse 1 - General Ulcer Assessment Start: 12/17/21 10:30 Freq: Status: Active Protocol: .LOWEXT Activity Type Activity Date Activity User E-sign Co-sign Detail Recorded Client Recorded Date Recorded By Document 12/17/21 10:30 [facility] [id number] 12/17/21 10:38 [facility] Document 12/24/21 08:49 MW Desktop 12/24/21 08:51 MW Document 12/31/21 09:30 AK [id number] 12/31/21 09:38 AK Document 01/07/22 10:26 DL [id number] 01/07/22 10:32 DL 12/17/21 12/24/21 12/31/21 10:30 08:49 09:30 - Today's Visit Information Type of service Follow-up Visit Follow-up Visit Follow-up Visit (Physician/COMMERCIAL PARTS PROFESSIONAL (Physician/COMMERCIAL PARTS PROFESSIONAL (Physician/COMMERCIAL PARTS PROFESSIONAL ) ) ) Arrival Mode Ambulatory Ambulatory Ambulatory Transfer Assistance None None Patient Identification Verified (Name & Yes Yes Yes ) Patient Requires Transmission-Based No No No Precautions Safety Precautions NA Vital Signs Temperature (97.8 F-99.1 F) 97.1 F L 97.0 F L 97.1 F L Temperature Source Temporal Temporal Temporal Pulse Rate (60-100) 70 77 72 Pulse Location Monitor Monitor Monitor Respiratory Rate (12-18) 16 16 Respiratory rate source Observation Observation Oxygen Delivery Method Room Air Room Air Blood Pressure (90/60-120/80) 160/51 H 126/68 H 143/78 H Blood Pressure Mean (mm Hg) 87 87 99 Source Monitor Monitor Monitor Position Sitting Sitting Blood Pressure Location Right Arm Left Arm History Since Last Visit- (Skip if this is Patient's initial visit) Have you changed medications since your No No No last visit? Any new allergies or adverse reactions No No No Had a fall/change in ADL's that may No No No increase risk of falls Signs or symptoms of abuse and/or No No No neglect since last visit Have you been in the hospital since your No No No last visit? Has dressing in place as prescribed Yes Yes Yes Has compression in place as prescribed No N/A N/A Has offloadiing in place as prescribed N/A N/A N/A Experienced any changes in pain level or No No No management Left Footwear Regular Shoe Regular Shoe Regular Shoe Right Footwear Regular Shoe Regular Shoe Regular Shoe Pain Scale: 0-10 Numeric Is Patient Pain Free? Yes Yes Yes 01/07/22 10:26 WC - Today's Visit Information Type of service Follow-up Visit (Physician/COMMERCIAL PARTS PROFESSIONAL ) Arrival Mode Ambulatory Transfer Assistance None Patient Identification Verified (Name & Yes ) Patient Requires Transmission-Based No Precautions Safety Precautions Vital Signs Temperature (97.8 F-99.1 F) 97.8 F Temperature Source Temporal Pulse Rate (60-100) 70 Pulse Location Monitor Respiratory Rate (12-18) 18 Respiratory rate source Observation Oxygen Delivery Method Blood Pressure (90/60-120/80) 135/78 H Blood Pressure Mean (mm Hg) 97 Source Monitor Position Blood Pressure Location History Since Last Visit- (Skip if this is Patient's initial visit) Have you changed medications since your No last visit? Any new allergies or adverse reactions No Had a fall/change in ADL's that may No increase risk of falls Signs or symptoms of abuse and/or No neglect since last visit Have you been in the hospital since your No last visit? Has dressing in place as prescribed Yes Has compression in place as prescribed Yes Has offloadiing in place as prescribed N/A Experienced any changes in pain level or No management Left Footwear Right Footwear Pain Scale: 0-10 Numeric Is Patient Pain Free? Yes WC - Nurse 1 - General Ulcer Measurement Start: 12/17/21 10:30 Freq: Status: Active Protocol: Activity Type Activity Date Activity User E-sign Co-sign Detail Recorded Client Recorded Date Recorded By Document 12/17/21 10:30 [facility] [id number] 12/17/21 10:38 [facility] Document 12/24/21 08:49 MW Desktop 12/24/21 08:51 MW Document 12/31/21 09:30 AK [id number] 12/31/21 09:38 AK Document 01/07/22 10:26 DL [id number] 01/07/22 10:32 DL 12/17/21 12/24/21 12/31/21 10:30 08:49 09:30 Wound Center Nurse 1 #1 R lateral LE -Combined with other wound No No No -Current Size (cm) - Length 2 1.3 1.5 -Current Size (cm) - Width 1 0.6 1.2 -Current Size (cm) - Depth 0.1 0.1 0.1 -Total Square Cm 2 0.78 1.80 -Photo Taken No No No -Epithelialization Small 1-33% None Present -Tunneling No No No -Undermining/Tunneling No No No -Circular Undermining No No No -Change in Wound Grade/Stage No -Exudate Amt Small Small Small -Exudate Type Serosanguineous Serosanguineous -Wound Margin Distinct, Flat & Intact Distinct, Outline Outline Attached Attached -Granulation Amt Large (67-100%) Large (67-100%) Small (1-33%) -Granulation Quality Red Red N/A -Slough/Fibrin Yes Yes Yes -Necrosis Amt Small (1-33%) None Present (0 Large (67-100%) %) -Necrotic Tissue Type Adherent Slough Adherent Slough Eschar -Structure Exposed N/A N/A -Texture (Imelda-wound Skin Appearance) Assessed, Assessed, No Abnormality, Scarring Scarring Assessed -Moisture (Imelda-wound Skin Appearance) Assessed,Dry/ Assessed,Dry/ No Abnormality, Scaly Scaly Assessed -Color (Imelda-wound Skin Appearance) Assessed No Abnormality, No Abnormality, Assessed Assessed -Temperature (Imelda-wound Skin No Abnormality No Abnormality No Abnormality Appearance) (Pt Warm) (Pt Warm) (Pt Warm) -Tenderness on Palpation (Imelda-wound No Yes No Skin Appearance) -Ulcer Cleansing Rinsed/ Rinsed/ Soap and Water Irrigated with Irrigated with Saline Saline -Foul Odor after Cleansing No No No -Anesthetic Used 5% Lidocaine 5% Lidocaine 5% Lidocaine Gel Gel Gel Lower Limb Edema Present No Right Calf (cm) 30.7 Right Ankle (cm) 18.6 01/07/22 10:26 Wound Center Nurse 1 #1 R lateral LE -Combined with other wound -Current Size (cm) - Length 0.1 -Current Size (cm) - Width 0.1 -Current Size (cm) - Depth 0.1 -Total Square Cm 0.01 -Photo Taken Yes -Epithelialization -Tunneling -Undermining/Tunneling -Circular Undermining -Change in Wound Grade/Stage -Exudate Amt None Present -Exudate Type -Wound Margin Fibrotic Scar, Thickened Scar -Granulation Amt Large (67-100%) -Granulation Quality Pale -Slough/Fibrin -Necrosis Amt None Present (0 %) -Necrotic Tissue Type -Structure Exposed N/A -Texture (Imelda-wound Skin Appearance) Scarring -Moisture (Imelda-wound Skin Appearance) No Abnormality -Color (Imelda-wound Skin Appearance) Hemosiderin Staining -Temperature (Imelda-wound Skin No Abnormality Appearance) (Pt Warm) -Tenderness on Palpation (Imelda-wound No Skin Appearance) -Ulcer Cleansing -Foul Odor after Cleansing -Anesthetic Used 5% Lidocaine Gel Lower Limb Edema Present Right Calf (cm) 30 Right Ankle (cm) 18 WC - Nurse 2 - General Ulcer CM Notes Start: 12/17/21 10:30 Freq: Status: Active Protocol: Activity Type Activity Date Activity User E-sign Co-sign Detail Recorded Client Recorded Date Recorded By Document 12/17/21 10:51 TICO [id number] 12/17/21 10:52 TICO Document 12/24/21 09:24 TICO [id number] 12/24/21 09:25 JF Document 12/31/21 09:50 [id number] 12/31/21 09:57 12/17/21 12/24/21 12/31/21 10:51 09:24 09:50 Wound Center Nurse 2 #1 R lateral LE -Time 10:52 09:24 09:51 -Correct Patient Yes Yes Yes -Correct Side, Site, Position Yes Yes Yes -Correct Procedure Yes Yes Yes -Procedure Performed Yes Yes Yes -Type of Procedure Debridement Debridement Debridement -Clinical Debridement Subcutaneous Subcutaneous Subcutaneous -Tissue Removed Subcutaneous Subcutaneous Subcutaneous -Post Debridement (cm) - Length 2.1 1.4 1.0 -Post Debridement (cm) - Width 1.1 0.6 0.7 -Post Debridement (cm) - Depth 0.1 0.1 0.1 -Total Square (Post) (cm) 2.31 0.84 0.70 -Area of Debridement (cm) - Length 2.1 1.4 1.0 -Area of Debridement (cm) - Width 1.1 0.6 0.7 -Total Square (Area) (cm) 2.31 0.84 0.70 -Tunneling No No No -Undermining/Tunneling No No No -Circular Undermining No No No -Wound/Ulcer Outcome Not Healed Not Healed Not Healed -Ulcer Cleansing Rinsed/ Rinsed/ Rinsed/ Irrigated with Irrigated with Irrigated with Saline Saline Saline -Foul Odor after Cleansing No No No -Bioengineered Tissue No Yes Yes -Type of Bioengineered Tissue Epifix 18mm Epifix 18mm Disc Disc -Expiration Date 09/15/26 09/15/26 -Product Lot Number [id number] -Percent Used 100 100 -Lot number of Saline Used [id number] -Bleeding Controlled with Pressure Pressure Pressure -Treatment Response Procedure Procedure Procedure Tolerated Well Tolerated Well Tolerated Well -Offloading No No No -Debridement - Subq, 1st 20sq cm Yes No No -Apply Skin Sub - 1st 25 sq cm - Legs 1 1 -Epifix 18mm Disc 3 3 Pain Scale: 0-10 Numeric Is Patient Pain Free? Yes Yes Yes - Nurse 3 - General Ulcer D/C NN Start: 12/17/21 10:30 Freq: Status: Active Protocol: Activity Type Activity Date Activity User E-sign Co-sign Detail Recorded Client Recorded Date Recorded By Document 12/17/21 10:52 TICO [id number] 12/17/21 10:56 Document 12/24/21 09:35 MW Desktop 12/24/21 09:36 MW 12/17/21 12/24/21 10:52 09:35 Wound Care Nurse 3 #1 R lateral LE -Ulcer Cleansing Rinsed/ Not Cleansed Irrigated with Saline -Foul Odor after Cleansing No No -Negative Pressure Wound Therapy N/A -Primary Dressing Applied Aquacel AG 2x2 -Primary Dressing Covered/Secured with Dry Gauze & Dry Gauze & Roll Gauze, Roll Gauze, Secured with Secured with Tape Tape -Aquacel AG 2x2 1 Right -Lotion applied to leg before No compression wrap -Compression Wrap Chase Wrap -Size of Tubigrip Used Size D -Size D ($) 1 Treatment Response Procedure Tolerated Well Pain Scale: 0-10 Numeric Is Patient Pain Free? Yes Yes Teaching: Wound Center Skin Care -Person Taught Patient -Teaching Method Discussion, Demonstration -Response to teaching Return demonstration, Verbalize understanding Dressing Your Wound -Person Taught Patient Patient -Teaching Method Discussion, Discussion, Demonstration Demonstration -Response to teaching Return Return demonstration, demonstration Verbalize understanding WC - Visit Discharge Discharge Condition Stable Stable Ambulatory Status Ambulatory Ambulatory Transportation Private Auto Private Auto Accompanied by self Medication Reconcilliation completed & Yes No provided to patient/care provider Clinical Summary of Care Provided Yes Yes Assessment/Plan Assessment/Plan (1) Peripheral vascular disease, unspecified: CODE(S): I73.9 - Peripheral vascular disease, unspecified (2) Non-pressure chronic ulcer of right calf with fat layer exposed: CODE(S): L97.212 - Non-pressure chronic ulcer of right calf with fat layer exposed PLAN: Patient examined evaluated, all findings discussed with patient in detail. Wound healed at this time. Patient will continue Tubigrip for compression for additional week. Patient will manage edema via compression elevation and exercise. Patient will follow up as needed.
== END 2022-01-10 13:49 | disposition home or self-care (01) ==
LOC: WC 10:45
PROVIDERS: PCP Family Medicine Geriatric Medicine; Referring Provider Podiatrist; Visit Provider Podiatrist
DX: L97.212 Non-pressure chronic ulcer of right calf with fat layer exposed (principal); I73.9 Peripheral vascular disease, unspecified
CPT/HCPCS: 11042; 15271; 99213; Q4186; G0463

== ENCOUNTER 2022-02-21 09:45 | Outpatient (RCR) | payer MEDICARE, BC, SELFPAY ==
[2021-11-15 06:45] VITALS: BMI 23.1
[2022-02-21 11:47] LABS: International Normalized Ratio 2.6; Prothrombin Time (Protime)PT. 27.2 SECONDS (11.7-14.9)
== END 2022-02-21 18:00 | disposition home or self-care (01) ==
LOC: LAB 09:45
PROVIDERS: Family Provider Family Medicine Geriatric Medicine; PCP Family Medicine Geriatric Medicine; Referring Provider Internal Medicine Cardiovascular Disease; Visit Provider Internal Medicine Cardiovascular Disease
DX: Z79.01 Long term (current) use of anticoagulants (principal); T07.XXXA Unspecified multiple injuries, initial encounter; B95.62 Methicillin resistant Staphylococcus aureus infection as the cause of diseases classified elsewhere
CPT/HCPCS: 36415; 85610

== ENCOUNTER → 2022-02-21 | Outpatient (CLI) | payer MEDICARE, BC, SELFPAY ==
[2022-02-21 10:41] LABS: Absolute Lymphocyte Count 1.12 X10^3/uL (0.83-4.51); Absolute Neutrophil Count 6.3 X10^3/uL (2.0-7.7); Basophil# 0.01 X10^3/uL; Basophil% 0.1 % (0-1); Eosinophil# 0.03 X10^3/uL; Eosinophils% 0.4 % (0-5); Hematocrit 35.2 % (40-54); Hemoglobin 11.8 g/dL (13.0-16.5); Lymphocyte # 1.12 X10^3/ul (0.83-4.51); Lymphocyte % 13.3 % (19-41); Mean Corp Hgb Conc 33.5 g/dL (32-36); Mean Corpuscular Hgb 30.4 pg (27.0-32.0); Mean Corpuscular Volume 90.7 fL (80-94); Mean Platelet Vol. 11.5 fl (6.2-12.0); Monocyte# 0.87 X10^3/uL; Monocyte% 10.3 % (0-10); NRBC Flagged by Analyzer 0 % (0-5); Neutrophil # 6.34 X10^3/uL (2.7-7.7); Neutrophil % 75.2 % (47-70); Platelet Count 229 K/mm3 (150-450); RBC Distribution Width CV 15.4 % (11.6-14.6); Red Blood Count 3.88 M/mm3 (4.6-6.2); White Blood Count 8.4 K/mm3 (4.4-11.0)
[2022-02-21 11:00] LABS: Vitamin D,25 Hydroxy 71.8 ng/mL
[2022-02-21 11:07] LABS: ALB/GLOB Ratio 0.9 RATIO (0.9-2.4); AST(SGOT) 35 U/L (15-37); Alanine Aminotransfer ALT/SGPT 33 U/L (16-61); Albumin, Serum 3.6 g/dL (3.2-5.0); Alkaline Phosphatase 77 U/L (45-117); Anion Gap 6 (5-15); BUN 18 mg/dL (7-18); Calcium,Total 9.1 mg/dL (8.5-10.1); Chloride 107 mmol/L (98-107); Creatinine, Serum 0.95 mg/dL (0.70-1.30); EST Glomerular Filtration Rate 84 mL/min (>60); Est Glom Filt Rate - Afr Amer 102 mL/min (>60); Glucose 103 mg/dL (74-106); PSA,Total - Annual Screen 0.23 ng/mL (0.00-4.00); Protein, Total 7.6 g/dL (6.4-8.2); Sodium Level 139 mmol/L (136-145); Thyroid Stim Hormone (TSH) 1.64 uIU/mL (0.358-3.74)
== END | disposition home or self-care (01) ==
PROVIDERS: PCP Family Medicine Geriatric Medicine; Visit Provider Family Medicine Geriatric Medicine
DX: F52.8 Other sexual dysfunction not due to a substance or known physiological condition (principal); I48.0 Paroxysmal atrial fibrillation; E55.9 Vitamin D deficiency, unspecified; R53.83 Other fatigue; Z12.5 Encounter for screening for malignant neoplasm of prostate; Z79.01 Long term (current) use of anticoagulants
CPT/HCPCS: 36415; 80053; 82306; 84153; 84403; 84443; 85025; 85610; G0103

== ENCOUNTER → 2022-03-11 | Outpatient (CLI) | payer MEDICARE, BC, SELFPAY ==
[2022-03-11 11:12] LABS: Amphetamine Urine VISTA NEGATIVE (<1000 ng/mL); Barbiturate Urine VISTA NEGATIVE (< 200 ng/mL); Benzodiazepine Urine VISTA NEGATIVE (< 200 ng/mL); Cocaine Urine VISTA NEGATIVE (< 300 ng/mL); Ecstacy Urine VISTA POSITIVE (< 500 ng/mL); Methadone Urine VISTA NEGATIVE (< 300 ng/mL); PCP Urine VISTA NEGATIVE (< 25 ng/mL); THC Urine VISTA NEGATIVE (< 50 ng/mL); Vista UDS pH Range 5
== END | disposition home or self-care (01) ==
PROVIDERS: PCP Family Medicine Geriatric Medicine; Referring Provider Anesthesiology Pain Medicine; Visit Provider Anesthesiology Pain Medicine
DX: F11.20 Opioid dependence, uncomplicated (principal)
CPT/HCPCS: 80307

== ENCOUNTER 2022-05-16 10:24 | Outpatient (RCR) | payer MEDICARE, BC, SELFPAY ==
[2022-03-18 10:09] VITALS: BMI 23.1
[2022-05-16 11:15] LABS: International Normalized Ratio 3.4; Prothrombin Time (Protime)PT. 34.4 SECONDS (11.7-14.9)
== END 2022-05-16 18:00 | disposition home or self-care (01) ==
LOC: LAB 10:24
PROVIDERS: Family Provider Family Medicine Geriatric Medicine; PCP Family Medicine Geriatric Medicine; Referring Provider Internal Medicine Cardiovascular Disease; Visit Provider Internal Medicine Cardiovascular Disease
DX: I48.0 Paroxysmal atrial fibrillation (principal); Z79.01 Long term (current) use of anticoagulants
CPT/HCPCS: 36415; 85610

== ENCOUNTER → 2022-06-13 | Outpatient (CLI) | payer MEDICARE, BC, SELFPAY | END | disposition home or self-care (01) | LOC: PSN 07:02 | PROVIDERS: PCP Family Medicine Geriatric Medicine; Referring Provider Family Medicine Geriatric Medicine; Visit Provider Family Medicine Geriatric Medicine | DX: R68.83 Chills (without fever) (principal); Z20.822 Contact with and (suspected) exposure to COVID-19 | CPT/HCPCS: 87635; 87804; 87807; C9803; U0003; U0005 ==

== ENCOUNTER 2022-07-29 09:35 | Outpatient (RCR) | payer MEDICARE, BC, SELFPAY ==
[2022-05-17 22:54] VITALS: BMI 23.1
[2022-07-29 10:36] LABS: Prothrombin Time (Protime)PT. 30.9 SECONDS (11.7-14.9)
[2022-07-29 10:37] LABS: Amphetamine Urine VISTA NEGATIVE (<1000 ng/mL); Barbiturate Urine VISTA NEGATIVE (< 200 ng/mL); Benzodiazepine Urine VISTA NEGATIVE (< 200 ng/mL); Cocaine Urine VISTA NEGATIVE (< 300 ng/mL); Ecstacy Urine VISTA POSITIVE (< 500 ng/mL); Methadone Urine VISTA NEGATIVE (< 300 ng/mL); PCP Urine VISTA NEGATIVE (< 25 ng/mL); THC Urine VISTA NEGATIVE (< 50 ng/mL); Vista UDS pH Range 5
== END 2022-08-15 21:33 | disposition home or self-care (01) ==
LOC: LAB 09:35
PROVIDERS: Anesthesiology Pain Medicine; Family Provider Family Medicine Geriatric Medicine; PCP Family Medicine Geriatric Medicine; Referring Provider Internal Medicine Cardiovascular Disease; Visit Provider Internal Medicine Cardiovascular Disease
DX: Z79.01 Long term (current) use of anticoagulants (principal); I48.0 Paroxysmal atrial fibrillation; F11.20 Opioid dependence, uncomplicated
CPT/HCPCS: 36415; 80307; 85610

== ENCOUNTER → 2022-08-27 | Outpatient (CLI) | payer MEDICARE, BC, SELFPAY ==
[2022-08-27 13:02] LABS: Absolute Neutrophil Count 4.7 X10^3/uL (2.0-7.7); Basophil# 0.03 X10^3/uL; Basophil% 0.4 % (0-1); Eosinophil# 0.15 X10^3/uL; Eosinophils% 2.2 % (0-5); Hematocrit 31.5 % (40-54); Lymphocyte % 14.9 % (19-41); Mean Corp Hgb Conc 31.7 g/dL (32-36); Mean Corpuscular Volume 91.3 fL (80-94); Mean Platelet Vol. 10.5 fl (6.2-12.0); Monocyte# 0.76 X10^3/uL; Monocyte% 11.3 % (0-10); NRBC Flagged by Analyzer 0 % (0-5); Neutrophil # 4.74 X10^3/uL (2.7-7.7); Neutrophil % 70.5 % (47-70); Platelet Count 184 K/mm3 (150-450); RBC Distribution Width CV 16.4 % (11.6-14.6); RBC Distribution Width SD 54.1 fl (35.1-43.9); Red Blood Count 3.45 M/mm3 (4.6-6.2); White Blood Count 6.7 K/mm3 (4.4-11.0)
[2022-08-27 13:16] LABS: Vitamin D,25 Hydroxy 62.8 ng/mL
[2022-08-27 13:48] LABS: ALB/GLOB Ratio 1.1 RATIO (0.9-2.4); AST(SGOT) 44 U/L (15-37); Alanine Aminotransfer ALT/SGPT 32 U/L (16-61); Albumin, Serum 3.5 g/dL (3.2-5.0); Alkaline Phosphatase 122 U/L (45-117); Anion Gap 5 (5-15); BUN 14 mg/dL (7-18); BUN/Creat Ratio 14.8 RATIO (10-20); Calcium,Total 8.9 mg/dL (8.5-10.1); Chloride 109 mmol/L (98-107); Creatinine, Serum 0.94 mg/dL (0.70-1.30); EST Glomerular Filtration Rate 85 mL/min (>60); Est Glom Filt Rate - Afr Amer 102 mL/min (>60); Globulin 3.1 g/dL (2.2-4.2); Glucose 93 mg/dL (74-106); Potassium 4.5 mmol/L (3.5-5.1); Protein, Total 6.6 g/dL (6.4-8.2); Sodium Level 137 mmol/L (136-145); Thyroid Stim Hormone (TSH) 2.35 uIU/mL (0.358-3.74)
== END | disposition home or self-care (01) ==
LOC: POLAB3 09:01
PROVIDERS: PCP Family Medicine Geriatric Medicine; Visit Provider Family Medicine Geriatric Medicine
DX: R53.83 Other fatigue (principal); E55.9 Vitamin D deficiency, unspecified; F52.8 Other sexual dysfunction not due to a substance or known physiological condition
CPT/HCPCS: 36415; 80053; 82306; 84403; 84443; 85025

== ENCOUNTER → 2022-09-04 | Outpatient (CLI) | payer MEDICARE, BC, SELFPAY ==
[2022-09-04 13:44] LABS: Absolute Lymphocyte Count 1.31 X10^3/uL (0.83-4.51); Absolute Neutrophil Count 5.6 X10^3/uL (2.0-7.7); Basophil# 0.03 X10^3/uL; Basophil% 0.4 % (0-1); Eosinophil# 0.18 X10^3/uL; Eosinophils% 2.3 % (0-5); Hematocrit 32.2 % (40-54); Hemoglobin 10.2 g/dL (13.0-16.5); Lymphocyte # 1.31 X10^3/ul (0.83-4.51); Lymphocyte % 16.5 % (19-41); Mean Corp Hgb Conc 31.7 g/dL (32-36); Mean Corpuscular Hgb 29.1 pg (27.0-32.0); Mean Corpuscular Volume 91.7 fL (80-94); Monocyte# 0.77 X10^3/uL; Monocyte% 9.7 % (0-10); NRBC Flagged by Analyzer 0 % (0-5); Neutrophil # 5.59 X10^3/uL (2.7-7.7); Neutrophil % 70.1 % (47-70); Platelet Count 168 K/mm3 (150-450); RBC Distribution Width CV 18.9 % (11.6-14.6); RBC Distribution Width SD 61.9 fl (35.1-43.9); Red Blood Count 3.51 M/mm3 (4.6-6.2)
[2022-09-04 13:51] LABS: Vitamin B12 309 pg/mL (211-911)
[2022-09-04 14:02] LABS: BNP,B-Type NATRIURETIC PEPTIDE 343.1 pg/mL (0-100)
[2022-09-04 14:30] LABS: Ferritin 42 ng/mL (26-388); Iron 109 ug/dL (65-175); Iron Binding Capacity,Total 391 ug/dL (250-450); PERCENT IRON SATURATION 27.9 % (15.0-55.0)
== END | disposition home or self-care (01) ==
LOC: POLAB3 10:24
PROVIDERS: PCP Family Medicine Geriatric Medicine; Visit Provider Family Medicine Geriatric Medicine
DX: D64.9 Anemia, unspecified (principal)
CPT/HCPCS: 36415; 82607; 82728; 82746; 83540; 83550; 83880; 85025

== ENCOUNTER → 2022-10-01 | Outpatient (CLI) | payer MEDICARE, BC, SELFPAY ==
--- NOTE | 2022-10-01 10:35 | RAD_ITS ---
STUDY: X-RAY CHEST REASON FOR EXAM: Male, 67 years old. PLEURISY TECHNIQUE: PA and lateral views of the chest. COMPARISON: Comparison is made with prior study dated October 01, 2021. FINDINGS: Hyperinflation. Small right pleural effusion with right basilar infiltrate. There is a faint 2.8 cm x 2.7 cm rounded nodule in the right upper lobe. Correlation with the CT scan is recommended for further evaluation. A left-sided dual-chamber pacemaker is seen. 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 Normal mediastinum and sylvia. Normal visualized pulmonary arteries. There is atherosclerotic calcification of the aortic arch with tortuosity. There are diffuse degenerative changes of the visualized thoracic spine. Normal visualized ribs, clavicles, and shoulders. There is no demonstrated abnormality of the visualized soft tissue structures of the upper abdomen. RAD/Chest PA and Lateral IMPRESSION: Right lower lobe infiltrate with small right pleural effusion. Hypoinflation. 2.8 cm x 2.7 cm nodular density in the right upper lobe. CT scan is recommended for further evaluation. Electronically Signed: Damien Medellin MD at 11:02 EDT ,
== END | disposition home or self-care (01) ==
PROVIDERS: PCP Family Medicine Geriatric Medicine; Referring Provider Family Medicine Geriatric Medicine; Visit Provider Family Medicine Geriatric Medicine
DX: R09.1 Pleurisy (principal)
CPT/HCPCS: 71046

== ENCOUNTER → 2022-10-01 | Outpatient (CLI) | payer MEDICARE, BC, SELFPAY ==
--- NOTE | 2022-10-01 14:51 | CT_ITS ---
STUDY: CT CHEST WITHOUT CONTRAST REASON FOR EXAM: Male, 67 years old. LUNG NODULE RADIATION DOSAGE (If Supplied By Facility): CTDIvol = ( 6.92 ) mGy, DLP = ( 239.04 ) mGycm TECHNIQUE: Transaxial imaging was performed without the administration of intravenous contrast material. Multiplanar coronal and sagittal images were reformatted. Individualized dose optimization techniques were used for this CT. COMPARISON: Comparison is made with prior chest radiograph done earlier in the day. FINDINGS: CHEST A left-sided dual-chamber pacemaker is seen. Hyperinflation. Emphysematous changes with bullous formation in the upper lobes. Focal infiltrate is seen in the posterior aspect of the right upper lobe abutting the right minor fissure. There is thickening of the right minor fissure. Small right pleural effusion with right basilar atelectasis and/or infiltrate as well as scarring in the right middle lobe. There are calcifications of the coronary arteries. Prior mitral valve and aortic valve replacement. There are multiple small lymph nodes within the mediastinum, which are normal in size and morphology most compatible with reactive lymph hyperplasia. Normal hilar regions. Normal unenhanced pulmonary arteries. There is atherosclerotic calcification of the aortic arch with tortuosity and elongation of the aortic arch and descending thoracic aorta. There are multi-level degenerative changes of the thoracic spine. There is no demonstrated abnormality of the visualized upper abdomen. CT/Chest without Contrast IMPRESSION: Small right pleural effusion with right basilar atelectasis and/or infiltrate. Focal infiltrate is seen in the posterior aspect of the right upper lobe abutting the minor fissure. Radiographic follow-up is recommended. Emphysematous changes. Electronically Signed: Damien Medellin MD at 15:33 EDT ,
== END | disposition home or self-care (01) ==
PROVIDERS: PCP Family Medicine Geriatric Medicine; Referring Provider Family Medicine Geriatric Medicine; Visit Provider Family Medicine Geriatric Medicine
DX: R91.1 Solitary pulmonary nodule (principal)
CPT/HCPCS: 71046; 71250

== ENCOUNTER 2022-11-20 08:09 | Outpatient (RCR) | payer MEDICARE, BC, SELFPAY ==
[2022-08-15 21:34] VITALS: BMI 23.1
[2022-11-20 08:45] LABS: International Normalized Ratio 3.6; Prothrombin Time (Protime)PT. 36.8 SECONDS (11.7-14.9)
== END 2022-12-15 18:00 | disposition home or self-care (01) ==
LOC: LAB 08:09
PROVIDERS: Family Provider Family Medicine Geriatric Medicine; PCP Family Medicine Geriatric Medicine; Referring Provider Nurse Practitioner Family; Visit Provider Nurse Practitioner Family
DX: I48.0 Paroxysmal atrial fibrillation (principal); Z79.01 Long term (current) use of anticoagulants; F11.20 Opioid dependence, uncomplicated
CPT/HCPCS: 36415; 85610

== ENCOUNTER → 2023-02-25 | Outpatient (CLI) | payer MEDICARE, BC, SELFPAY ==
[2023-02-25 14:57] LABS: Absolute Lymphocyte Count 1.04 X10^3/uL (0.83-4.51); Absolute Neutrophil Count 6.1 X10^3/uL (2.0-7.7); Basophil# 0.05 X10^3/uL; Basophil% 0.6 % (0-1); Eosinophil# 0.18 X10^3/uL; Eosinophils% 2.1 % (0-5); Hematocrit 32.7 % (40-54); Hemoglobin 10.1 g/dL (13.0-16.5); Lymphocyte # 1.04 X10^3/ul (0.83-4.51); Lymphocyte % 12.1 % (19-41); Mean Corp Hgb Conc 30.9 g/dL (32-36); Mean Corpuscular Hgb 29.6 pg (27.0-32.0); Mean Corpuscular Volume 95.9 fL (80-94); Monocyte# 1.22 X10^3/uL; Monocyte% 14.1 % (0-10); NRBC Flagged by Analyzer 0 % (0-5); Neutrophil % 70.6 % (47-70); Platelet Count 138 K/mm3 (150-450); RBC Distribution Width CV 18.4 % (11.6-14.6); RBC Distribution Width SD 64.5 fl (35.1-43.9); Red Blood Count 3.41 M/mm3 (4.6-6.2); White Blood Count 8.6 K/mm3 (4.4-11.0)
[2023-02-25 15:11] LABS: Vitamin D,25 Hydroxy 76.6 ng/mL
[2023-02-25 15:20] LABS: ALB/GLOB Ratio 0.9 RATIO (0.9-2.4); AST(SGOT) 57 U/L (15-37); Alanine Aminotransfer ALT/SGPT 33 U/L (16-61); Albumin, Serum 3.4 g/dL (3.2-5.0); Alkaline Phosphatase 193 U/L (45-117); Anion Gap 6 (5-15); BUN 12 mg/dL (7-18); BUN/Creat Ratio 10.1 RATIO (10-20); Calcium,Total 8.6 mg/dL (8.5-10.1); Chloride 106 mmol/L (98-107); Creatinine, Serum 1.19 mg/dL (0.70-1.30); EST Glomerular Filtration Rate 65 mL/min (>60); Est Glom Filt Rate - Afr Amer 78 mL/min (>60); Globulin 3.8 g/dL (2.2-4.2); Glucose 96 mg/dL (74-106); PSA,Total - Annual Screen 0.24 ng/mL (0.00-4.00); Protein, Total 7.2 g/dL (6.4-8.2); Sodium Level 136 mmol/L (136-145); Thyroid Stim Hormone (TSH) 3.54 uIU/mL (0.358-3.74)
[2023-02-25 15:40] LABS: Prothrombin Time (Protime)PT. 78.7 SECONDS (11.7-14.9)
[2023-02-25 16:39] LABS: International Normalized Ratio 9.5
== END | disposition home or self-care (01) ==
LOC: POLAB3 14:01
PROVIDERS: PCP Family Medicine Geriatric Medicine; Visit Provider Family Medicine Geriatric Medicine
DX: R53.83 Other fatigue (principal); I48.0 Paroxysmal atrial fibrillation; E55.9 Vitamin D deficiency, unspecified; Z12.5 Encounter for screening for malignant neoplasm of prostate; Z79.01 Long term (current) use of anticoagulants
CPT/HCPCS: 36415; 80053; 82306; 84153; 84443; 85025; 85610; G0103

== ENCOUNTER 2023-03-09 09:52 | Outpatient (RCR) | payer MEDICARE, BC, SELFPAY ==
[2022-12-16 00:12] VITALS: BMI 23.1
[2023-03-09 11:00] LABS: International Normalized Ratio 1.9; Prothrombin Time (Protime)PT. 22.1 SECONDS (11.7-14.9)
== END 2023-03-09 18:00 | disposition home or self-care (01) ==
LOC: LAB 09:52
PROVIDERS: Family Provider Family Medicine Geriatric Medicine; PCP Family Medicine Geriatric Medicine; Referring Provider Nurse Practitioner Family; Visit Provider Nurse Practitioner Family
DX: I48.0 Paroxysmal atrial fibrillation (principal); Z79.01 Long term (current) use of anticoagulants
CPT/HCPCS: 36415; 85610

== ENCOUNTER → 2023-03-10 | Outpatient (CLI) | payer MEDICARE, BC, SELFPAY ==
[2023-03-10 11:48] LABS: Amphetamine Urine VISTA NEGATIVE (<1000 ng/mL); Barbiturate Urine VISTA NEGATIVE (< 200 ng/mL); Benzodiazepine Urine VISTA NEGATIVE (< 200 ng/mL); Cocaine Urine VISTA NEGATIVE (< 300 ng/mL); Ecstacy Urine VISTA POSITIVE (< 500 ng/mL); Methadone Urine VISTA NEGATIVE (< 300 ng/mL); PCP Urine VISTA NEGATIVE (< 25 ng/mL); THC Urine VISTA NEGATIVE (< 50 ng/mL); Vista UDS pH Range 5
== END | disposition home or self-care (01) ==
LOC: LAB 09:26
PROVIDERS: PCP Family Medicine Geriatric Medicine; Referring Provider Anesthesiology Pain Medicine; Visit Provider Anesthesiology Pain Medicine
DX: F11.20 Opioid dependence, uncomplicated (principal)
CPT/HCPCS: 80307

== ENCOUNTER → 2023-03-11 | Outpatient (CLI) | payer MEDICARE, BC, SELFPAY ==
--- NOTE | 2023-03-11 07:53 | ECHOD_ITS ---
Reason For Study: SYNCOPE Procedure This was a 2D Doppler, Color Flow transthoracic echocardiogram. Exam performed in department. Left Ventricle Normal LV size. Moderate concentric left ventricular hypertrophy. The left ventricular ejection fraction is 60 %. Stage 3 diastolic dysfunction. Right Ventricle ICD or pacer leads identified within the right ventricle. Atria The left atrium is severely enlarged. The right atrium is mildly enlarged. ICD or pacer leads identified within the right atrium. Mitral Valve Moderate (2+) mitral valve insufficiency. Bioprosthetic mitral valve. Bioprosthetic mean peak gradient 7.9 mmHg. Tricuspid Valve Moderately severe (3+) tricuspid valve insufficiency. Right ventricular systolic pressure estimated to be 90 mmHg. Severe pulmonary hypertension. An annuloplasty ring is noted in the tricuspid position. Aortic Valve Aortic sclerosis, no stenosis. Trivial aortic valve insufficiency. Pulmonic Valve The pulmonic valve is not well visualized. Great Vessels The aortic root is not well visualized. Pericardium/Pleural No pericardial effusion. MMode/2D Measurements & Calculations LVIDd: 4.4 cm IVSd: 1.4 cm LAV(MOD-bp): 61.3 ml LVIDs: 2.7 cm LVPWd: 1.5 cm LAV(MOD-bp) Indexed: 32.4 ml/m2 FS: 37.3 % LAV(MOD-sp2): 73.2 ml LAV(MOD-sp4): 53.8 ml SV(MOD-sp4): 54.6 ml SV(sp4-el): 56.6 ml LVAd ap4: 32.4 cm2 LVLd ap4: 8.8 cm EDV(MOD-sp4): 98.8 ml EDV(sp4-el): 101.5 ml LVAs ap4: 20.1 cm2 LVLs ap4: 7.6 cm ESV(MOD-sp4): 44.2 ml ESV(sp4-el): 44.9 ml EF(MOD-sp4): 55.3 % EF(sp4-el): 55.8 % LA A4 area: 19.0 cm2 LA dimension(2D): 4.5 cm RA A4 area: 14.7 cm2 TAPSE: 1.2 cm Time Measurements MV dec time: 0.18 sec Doppler Measurements & Calculations MV E max bethel: 198.6 cm/sec Lat Peak E' Bethel: 9.1 cm/sec Med Peak E' Bethel: 4.6 cm/sec MV A max bethel: 41.1 cm/sec E/E' lat: 21.9 E/E' med: 43.4 MV E/A: 4.8 MV V2 max: 236.7 cm/sec Ao V2 max: 95.2 cm/sec MV max P.4 mmHg MV dec slope: 1211 cm/sec2 Ao max P.6 mmHg MV V2 mean: 127.0 cm/sec Ao V2 mean: 67.8 cm/sec MV mean P.9 mmHg Ao mean P.1 mmHg MV V2 VTI: 53.3 cm Ao V2 VTI: 20.1 cm AV (velocity ratio): 0.78 LV V1 max: 75.0 cm/sec TR max bethel: 431.7 cm/sec LV V1 max P.3 mmHg TR max P.6 mmHg LV V1 mean P.1 mmHg LV V1 mean: 48.4 cm/sec LV V1 VTI: 15.7 cm ECHO/Echo Complete Interpretation Summary Moderate concentric left ventricular hypertrophy. The left ventricular ejection fraction is 60 %. Stage 3 diastolic dysfunction. The left atrium is severely enlarged. The right atrium is mildly enlarged. Bioprosthetic mitral valve. Bioprosthetic mean peak gradient 7.9 mmHg Moderate (2+) mitral valve insufficiency. Moderately severe (3+) tricuspid valve insufficiency. Right ventricular systolic pressure estimated to be 90 mmHg. Severe pulmonary hypertension. Ordering Physician: Tacos Gibson Referring Physician: Tacos Gibson Performed By: Gemini Rosado RCS
== END | disposition home or self-care (01) ==
LOC: CVS 07:53
PROVIDERS: PCP Family Medicine Geriatric Medicine; Referring Provider Nurse Practitioner Family; Visit Provider Nurse Practitioner Family
DX: R55 Syncope and collapse (principal); R06.02 Shortness of breath; Z95.3 Presence of xenogenic heart valve; Z98.890 Other specified postprocedural states
CPT/HCPCS: 93306

== ENCOUNTER 2023-04-27 10:52 | Outpatient (RCR) | payer MEDICARE, BC, SELFPAY ==
[2023-03-17 22:47] VITALS: BMI 23.1
[2023-04-27 11:12] LABS: International Normalized Ratio 2.4; Prothrombin Time (Protime)PT. 26.6 SECONDS (11.7-14.9)
== END 2023-05-17 18:00 | disposition home or self-care (01) ==
LOC: LAB 10:52
PROVIDERS: Family Provider Family Medicine Geriatric Medicine; PCP Family Medicine Geriatric Medicine; Referring Provider Nurse Practitioner Family; Visit Provider Nurse Practitioner Family
DX: I48.0 Paroxysmal atrial fibrillation (principal); Z79.01 Long term (current) use of anticoagulants
CPT/HCPCS: 36415; 85610

== ENCOUNTER 2023-04-29 12:18 | Emergency (ER) | payer MEDICARE, BC, SELFPAY ==
[2023-04-29 12:19] VITALS: BP 105/67; PULSE 68; RESP 14; TEMP 36.7; O2SAT 98; BMI 20.7
--- NOTE | 2023-04-29 12:40 | EDS_ITS ---
HPI History of Present Illness Chief Complaint: Lower Extremity Injury [facility] Medical History (Reviewed 02/13/23 @ 08:40 by Tacos Gibson PROPERTY STAFF ACCOUNTANT, PROPERTY STAFF ACCOUNTANT-C) Alcohol abuse Alcohol withdrawal Anxiety Cardiac pacemaker in situ Depression Essential (primary) hypertension History of bacterial endocarditis History of DVT (deep vein thrombosis) Hypertension Hypothyroidism [facility] current use of anticoagulant Nonrheumatic mitral valve regurgitation Other peripheral vascular disease Paroxysmal atrial fibrillation Pure hypercholesterolemia Sick sinus syndrome Sleep apnea Smoker Syncope Tobacco use disorder Home Medications bupropion HCl (smoking deter) 150 mg tablet,12 hr sustained-release(smoking deterrent) 150 mg PO BID SMOKING 09/09/17 [History Last Taken 10/01/21] tamsulosin 0.4 mg capsule 0.4 mg PO BID urinary tract 09/08/18 [History Last Taken 10/01/21] hydrocodone-acetaminophen 5-325mg 5mg-325mg 1 tab PO 4X/DAY PAIN 06/05/21 [History Last Taken 10/01/21] levothyroxine 100 mcg tablet 100 mcg PO DAILY THYROID 06/05/21 [History Last Taken 10/01/21] aspirin 81 mg tablet,delayed release (Adult Aspirin Regimen) 81 mg PO DAILY blood thinner 07/25/21 [History Last Taken 10/01/21] potassium 99 mg tablet 550 mg PO DAILY SUPPLEMENT 07/25/21 [History Last Taken 10/01/21] doxepin 150 mg capsule 150 mg PO DAILY depression 10/01/21 [History Last Taken 09/30/21] levofloxacin 250 mg tablet 250 mg PO DAILY 11/05/21 [History Last Taken Unknown] albuterol sulfate 90 mcg/actuation aerosol inhaler (ProAir HFA) 2 puff inhalation Q4H PRN SOB 01/31/22 [History Last Taken Unknown] cholecalciferol (vitamin D3) 25 mcg (1,000 unit) tablet 25 mcg PO DAILY 01/31/22 [History Last Taken Unknown] tizanidine 4 mg tablet 4 mg PO QHS muscle spasm 01/31/22 [History Last Taken Unknown] trazodone 100 mg tablet 300 mg PO QHS mood 01/31/22 [History Last Taken Unknown] vitamin E (dl, acetate) 180 mg (400 unit) capsule 180 mg PO DAILY 01/31/22 [History Last Taken Unknown] atorvastatin 20 mg tablet 20 mg PO DAILY 08/12/22 [History Last Taken Unknown] warfarin 2.5 mg tablet 2.5 mg PO DAILY BLOOD THINNER #90 tabs 08/12/22 [Rx Last Taken Unknown] metoprolol succinate 50 mg tablet,extended release 24 hr 50 mg PO DAILY this is a dose increase #90 tabs 10/08/22 [Rx Last Taken Unknown] furosemide 40 mg tablet (Lasix) 40 mg PO DAILY #90 tabs 03/19/23 [Rx Last Taken Unknown] Allergy/AdvReac Type Severity Reaction Status Date / Time No Known Allergies Allergy Verified 04/29/23 12:21 Family History (Reviewed 02/13/23 @ 08:40 by Tacos Gibson PROPERTY STAFF ACCOUNTANT, PROPERTY STAFF ACCOUNTANT-C) Grandfather CAD (coronary artery disease) Father CAD (coronary artery disease) Hx of CABG Surgical History (Reviewed 02/13/23 @ 08:40 by Tacos Gibson PROPERTY STAFF ACCOUNTANT, PROPERTY STAFF ACCOUNTANT-C) History of appendectomy History of hernia repair History of mitral valve replacement History of mitral valve replacement with bioprosthetic valve (07/27/14) History of shoulder surgery History of tricuspid valve repair (~07/27/14) History of tricuspid valve repair (~07/27/14) Social History (Reviewed 02/13/23 @ 08:40 by Tacos Gibson PROPERTY STAFF ACCOUNTANT, PROPERTY STAFF ACCOUNTANT-C) Smoking Status: Current every day smoker tobacco type: cigars alcohol intake: current details: occasional substance use type: former substance user, crack/cocaine and heroin EXAM Physical Exam Const Vital Signs: 04/29/23 12:19 04/29/23 13:19 Temperature 98.1 F 97.9 F Temperature Source Temporal Pulse Rate 68 64 Respiratory Rate 14 14 Blood Pressure 105/67 128/78 H Blood Pressure Mean 79 94 Pulse Ox 98 99 Oxygen Delivery Method Room Air MDM MDM MDM Narrative Medical decision making narrative: HISTORY OF PRESENT ILLNESS: 67-year-old male here mechanical fall injuring his left ankle and injuring his head. No loss of consciousness states he has been on warfarin his last INR was 2.4. REVIEW OF SYSTEMS: Pertinent positives: Head trauma, left ankle pain Pertinent negatives: Focal weakness, syncope PHYSICAL EXAM: Nursing triage notes reviewed, Vital signs reviewed Primary Survey Airway: Intact Breathing: Bilateral breath sounds Circulation: Palpable bilateral femorals, Palpable bilateral radial, Palpable bilateral DP and Palpable bilateral PT Disability / Spine precautions GCS Score: Eye Openin Verbal Response: 5 Motor Response: 6 Secondary Survey Constitutional: Please see MDM Head: Ecchymosis noted around left eye, midface stable, NO jaw malocclusion, No Cephalohematoma, and No Lacerations noted Eye: Pupils equal round and reactive to light, Extraocular muscles intact and No periorbital ecchymosis or stepoff, no evidence of entrapment ENT: Oropharynx clear, no lacerations, no hemotympanum, no raccoon eyes or braden sign Cervical spine / Neck: No cervical spine bony tenderness, crepitance, or stepoff deformity Trachea midline Lungs: Clear to auscultation, No asymmetric rise and No crepitus, no flail chest Cardiac: Regular rate and rhythm and No murmurs Abdomen: Soft, Nontender and No rebound Pelvis: Pelvis stable to compression : No evidence of genital injury Back: No midline bony tenderness to thoracic/lumbar/sacral spines Neuro: At baseline, intact strength and sensation in bilateral upper and lower extremities. 2+ patellar reflexes bilaterally. Extremities: NO gross Deformities, TTP over left ankle, left lateral malleolus Psych: Normal affect Nursing triage notes reviewed, Vital signs reviewed MEDICAL DECISION MAKING: Chief Complaint: Head trauma, left ankle pain External records reviewed: Imaging reviewed, CT scan from 2018 shows no acute abnormality Factors affecting care: A-fib on warfarin Social determinants of health: none History obtained from others: The patient's Consults: none [facility] Narrative: The patient was hemodynamically stable, afebrile, nontoxic-appearing. Primary secondary trauma surveys concerning for intracranial manage left ankle abnormalities. I considered the following differential diagnosis: ICH, concussion, left ankle contusion, left ankle fracture dislocation ALL IMAGES (IF OBTAINED) HAVE BEEN PERSONALLY REVIEWED AND INTERPRETED BY MYSELF . I read and personally read the patient's left ankle x-ray. X-ray showed no evidence of fracture dislocation. CT scan of the head showed no evidence of acute intracranial normality Patient is appropriate discharge home discharge exam revealed no new injury. The patient and/or family, caregivers express understanding. The patient and/or family, caregivers agrees with the plan. Shared decision making: I will have a discussion with the patient and or visitors regarding risk/benefits of further testing or admission. They will be made aware of of the risk/benefits inherent in this decision they will be given the opportunity to voice understanding. Total critical care time today provided was at least 0 minutes. This excludes separately billable procedures. Critical care time (if documented) is secondary to the patient having high probability of clinically significant/life threatening deterioration in the patient's condition which required my urgent intervention. Impression: 1. Head contusion 2. Left ankle contusion Dispo: Discharge Radiography Diagnostic Testing: Clinical Impression(s) from Imaging Studies Foot X-Ray 04/29/23 12:50 IMPRESSION: Soft tissue swelling. No acute fracture is seen. Electronically Signed: Damien Medellin MD at 13:10 EST , Brain CT 04/29/23 13:02 IMPRESSION: Chronic involutional changes of the brain. Stable encephalomalacia in the right frontal lobe. Electronically Signed: Damien Medellin MD at 13:37 EST , Discharge Plan Triage Chief Complaint: Lower Extremity Injury ED Provider: Naveen Nicole Dx/Rx/DC Orders Instructions: Concussion Dc, ED Contusion, Lower Extremity, ED RICE Prescriptions: No Action trazodone 100 mg tablet 300 mg PO QHS albuterol sulfate [ProAir HFA] 90 mcg/actuation HFA aerosol inhaler 2 puff INHALATION Q4H PRN (Reason: SOB) bupropion HCl (smoking deter) 150 mg tablet extended release 12 hr 150 mg PO BID potassium 99 mg tablet 550 mg PO DAILY aspirin [Adult Aspirin Regimen] 81 mg tablet,delayed release (DR/EC) 81 mg PO DAILY vitamin E (dl, acetate) 180 mg (400 unit) capsule 180 mg PO DAILY cholecalciferol (vitamin D3) 25 mcg (1,000 unit) tablet 25 mcg PO DAILY atorvastatin 20 mg tablet 20 mg PO DAILY warfarin 2.5 mg tablet 2.5 mg PO DAILY Qty: 90 3RF Protocol: Dose Management Condition: Thursday Dose/Route: 1.25 mg Instruction: 0.5 x 2.5 mg tablets Condition: Thursday Dose/Route: 2.5 mg Instruction: 1 x 2.5 mg tablet Condition: Thursday Dose/Route: 2.5 mg Instruction: 1 x 2.5 mg tablet Condition: Thursday Dose/Route: 2.5 mg Instruction: 1 x 2.5 mg tablet Condition: Dose/Route: 2.5 mg Instruction: 1 x 2.5 mg tablet Condition: Thursday Dose/Route: 2.5 mg Instruction: 1 x 2.5 mg tablet Condition: Thursday Dose/Route: 1.25 mg Instruction: 0.5 x 2.5 mg tablets Protocol Text: Adjustment Start Date: Thursday04/27/23 INR Value: 2.4 INR Date: 04/27/23 Recheck Date: 05/19/23 tamsulosin 0.4 mg capsule 0.4 mg PO BID Patient Comments: Prostate hydrocodone-acetaminophen 5-325 mg tablet 1 tab PO 4X/DAY levothyroxine 100 mcg tablet 100 mcg PO DAILY doxepin 150 mg Capsule 150 mg PO DAILY levofloxacin 250 mg Tablet 250 mg PO DAILY tizanidine 4 mg tablet 4 mg PO QHS metoprolol succinate 50 mg tablet extended release 24 hr 50 mg PO DAILY Qty: 90 3RF furosemide [Lasix] 40 mg tablet 40 mg PO DAILY Qty: 90 4RF Primary Care Provider: Fracisco Carvalho Chi Referrals: Fracisco Carvalho Chi, MD [Primary Care Provider] - Activity Restrictions/Additional Instructions: Thank you for trusting us with your care today! Please take Tylenol (2 pills, 650 mg) every 6 hours as needed for pain and fever control. Please return to the emergency department if your symptoms change or worsen. Please follow with your primary care physician for further outpatient evaluation and management. Disposition Disposition: Home, Self Care Discharge Date/Time: 04/29/23 13:58
--- NOTE | 2023-04-29 12:50 | RAD_ITS ---
STUDY: X-RAY - LEFT FOOT CLINICAL: Male, 67 years old. Pain following injury. TECHNIQUE: 3 view(s) of the foot. COMPARISON: None. FINDINGS: There is a plantar calcaneal spur. Normal visualized subtalar, talonavicular, calcaneocuboid, tarsal and tarsometatarsal articulations. Normal metatarsi. Normal metatarsophalangeal joint of the great toe. Normal tibial and fibular sesamoid bones. Normal interphalangeal joint of the great toe. 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 Normal second through fifth metatarsophalangeal joints. Amputation of the distal portion of the distal phalanx of the second toe. Soft tissue swelling. RAD/Foot min 3 Views IMPRESSION: Soft tissue swelling. No acute fracture is seen. Electronically Signed: Damien Medellin MD at 13:10 EST ,
--- NOTE | 2023-04-29 13:02 | CT_ITS ---
STUDY: CT BRAIN WITHOUT CONTRAST REASON FOR EXAM: Male, 67 years old. Head trauma r/o ICH RADIATION DOSAGE (If Supplied By Facility): CTDIvol = ( 47.06 ) mGy, DLP = ( 907.97 ) mGycm TECHNIQUE: Transaxial CT imaging of the brain was performed without administration of intravenous contrast material. Individualized dose optimization techniques were used for this CT. COMPARISON: Comparison is made with prior study dated August 31, 2018. FINDINGS: Normal soft tissue structures. Normal calvarium. There is mild cerebral atrophy with widening of the extra-axial spaces and ventricular dilatation. Stable focal encephalomalacia in the right frontal lobe. Normal basal ganglia and thalami. Normal brainstem. Normal cerebellum. There is no intracranial hemorrhage. There are no findings of an acute ischemic infarction. Small air-fluid level in the left maxillary sinus. CT/Brain/Head without Contrast IMPRESSION: Chronic involutional changes of the brain. Stable encephalomalacia in the right frontal lobe. Electronically Signed: Damien Medellin MD at 13:37 EST ,
[2023-04-29 13:19] VITALS: BP 128/78; PULSE 64; RESP 14; TEMP 36.6; O2SAT 99
== END 2023-04-29 13:58 | disposition home or self-care (01) ==
PROVIDERS: Emergency Provider Emergency Medicine; PCP Family Medicine Geriatric Medicine; Visit Provider Emergency Medicine
DX: S90.02XA Contusion of left ankle, initial encounter (principal); I48.0 Paroxysmal atrial fibrillation; S00.93XA Contusion of unspecified part of head, initial encounter; F17.200 Nicotine dependence, unspecified, uncomplicated; E78.00 Pure hypercholesterolemia, unspecified; I10 Essential (primary) hypertension; Z79.01 Long term (current) use of anticoagulants; W19.XXXA Unspecified fall, initial encounter
CPT/HCPCS: 70450; 73630; 99282

== ENCOUNTER 2023-06-12 06:30 | Outpatient (RCR) | payer MEDICARE, BC, SELFPAY ==
[2023-05-17 20:56] VITALS: BMI 23.1
[2023-05-20 10:07] LABS: Hematocrit 35.6 % (40-54); Hemoglobin 11.2 g/dL (13.0-16.5); Mean Corp Hgb Conc 31.5 g/dL (32-36); Mean Corpuscular Hgb 30.6 pg (27.0-32.0); Mean Corpuscular Volume 97.3 fL (80-94); Mean Platelet Vol. 9.6 fl (6.2-12.0); Platelet Count 157 K/mm3 (150-450); RBC Distribution Width CV 18.5 % (11.6-14.6); RBC Distribution Width SD 64.9 fl (35.1-43.9); Red Blood Count 3.66 M/mm3 (4.6-6.2); White Blood Count 7.8 K/mm3 (4.4-11.0)
[2023-05-20 10:23] LABS: International Normalized Ratio 1.9
[2023-05-20 10:38] LABS: Anion Gap 3 (5-15); BUN 23 mg/dL (7-18); BUN/Creat Ratio 18.5 RATIO (10-20); Calcium,Total 9.6 mg/dL (8.5-10.1); Chloride 110 mmol/L (98-107); Creatinine, Serum 1.24 mg/dL (0.70-1.30); EST Glomerular Filtration Rate 62 mL/min (>60); Est Glom Filt Rate - Afr Amer 75 mL/min (>60); Glucose 98 mg/dL (74-106); Potassium 4.4 mmol/L (3.5-5.1); Sodium Level 139 mmol/L (136-145)
[2023-05-20 10:58] LABS: BNP,B-Type NATRIURETIC PEPTIDE 504.1 pg/mL (0-100)
[2023-06-12 07:35] LABS: International Normalized Ratio 4.5; Prothrombin Time (Protime)PT. 43.4 SECONDS (11.7-14.9)
[2023-06-12 07:52] LABS: Anion Gap 6 (5-15); BUN 28 mg/dL (7-18); BUN/Creat Ratio 23.7 RATIO (10-20); Calcium,Total 9.1 mg/dL (8.5-10.1); Chloride 102 mmol/L (98-107); Creatinine, Serum 1.18 mg/dL (0.70-1.30); EST Glomerular Filtration Rate 65 mL/min (>60); Est Glom Filt Rate - Afr Amer 79 mL/min (>60); Glucose 112 mg/dL (74-106); Potassium 3.5 mmol/L (3.5-5.1); Sodium Level 134 mmol/L (136-145)
== END 2023-06-12 18:00 | disposition home or self-care (01) ==
LOC: LAB 06:30
PROVIDERS: Family Provider Family Medicine Geriatric Medicine; PCP Family Medicine Geriatric Medicine; Referring Provider Nurse Practitioner Family; Visit Provider Nurse Practitioner Family
DX: I48.0 Paroxysmal atrial fibrillation (principal); Z79.01 Long term (current) use of anticoagulants; I34.0 Nonrheumatic mitral (valve) insufficiency; I33.0 Acute and subacute infective endocarditis; Z95.0 Presence of cardiac pacemaker; R55 Syncope and collapse; I11.0 Hypertensive heart disease with heart failure; I50.810 Right heart failure, unspecified
CPT/HCPCS: 36415; 80048; 83880; 85027; 85610

== ENCOUNTER 2023-06-18 08:08 | Outpatient (RCR) | payer MEDICARE, BC, SELFPAY ==
[2023-06-17 21:44] VITALS: BMI 23.1
[2023-06-18 08:57] LABS: Hematocrit 35.5 % (40-54); Hemoglobin 11.2 g/dL (13.0-16.5); Mean Corp Hgb Conc 31.5 g/dL (32-36); Mean Corpuscular Hgb 29.1 pg (27.0-32.0); Mean Corpuscular Volume 92.2 fL (80-94); Platelet Count 198 K/mm3 (150-450); RBC Distribution Width CV 17.2 % (11.6-14.6); RBC Distribution Width SD 57.1 fl (35.1-43.9); Red Blood Count 3.85 M/mm3 (4.6-6.2); White Blood Count 7.7 K/mm3 (4.4-11.0)
[2023-06-18 09:06] LABS: International Normalized Ratio 2.1; Prothrombin Time (Protime)PT. 23.3 SECONDS (11.7-14.9)
[2023-06-18 09:41] LABS: Ferritin 151 ng/mL (26-388); Iron 58 ug/dL (65-175); Iron Binding Capacity,Total 339 ug/dL (250-450); PERCENT IRON SATURATION 17.1 % (15.0-55.0)
[2023-06-19 15:08] LABS: Endomysial Antibody IgA Negative (Negative); Immunoglobulin A < 5 mg/dL (61-437); t-Transglutaminase IgA <2 U/mL (0-3)
== END 2023-07-16 18:00 | disposition home or self-care (01) ==
LOC: LAB 08:08
PROVIDERS: Family Provider Family Medicine Geriatric Medicine; PCP Family Medicine Geriatric Medicine; Referring Provider Nurse Practitioner Family; Visit Provider Nurse Practitioner Family
DX: D50.9 Iron deficiency anemia, unspecified (principal)
CPT/HCPCS: 36415; 82728; 82784; 83516; 83540; 83550; 85027; 85610; 86255

== ENCOUNTER 2023-08-05 12:20 | Outpatient (RCR) | payer MEDICARE, BC, SELFPAY ==
[2023-07-16 22:12] VITALS: BMI 23.1
[2023-07-22 11:30] LABS: International Normalized Ratio 3.3; Prothrombin Time (Protime)PT. 33.2 SECONDS (11.7-14.9)
[2023-07-23 14:10] LABS: Immunoglobulin A < 5 mg/dL (61-437); Immunoglobulin G 1884 mg/dL (603-1613)
[2023-08-05 13:46] LABS: International Normalized Ratio 1.3; Prothrombin Time (Protime)PT. 16.1 SECONDS (11.7-14.9)
== END 2023-08-15 18:00 | disposition home or self-care (01) ==
LOC: LAB 12:20
PROVIDERS: Family Provider Family Medicine Geriatric Medicine; PCP Family Medicine Geriatric Medicine; Referring Provider Nurse Practitioner Family; Visit Provider Nurse Practitioner Family
DX: I48.0 Paroxysmal atrial fibrillation; Z79.01 Long term (current) use of anticoagulants; R19.7 Diarrhea, unspecified
CPT/HCPCS: 36415; 82784; 83516; 85610

== ENCOUNTER → 2023-08-05 | Outpatient (CLI) | payer MEDICARE, BC, SELFPAY ==
--- NOTE | 2023-08-05 12:15 | RAD_ITS ---
STUDY: X-RAY - SACRUM/COCCYX REASON FOR EXAM: Male, 68 years old. COCCYGEAL PAIN TECHNIQUE: 3 views of the sacrum and coccyx were obtained. COMPARISON: Sacrum and coccyx radiographs dated 06/24/2017. FINDINGS: Normal bilateral sacroiliac joints. Normal visualized sacral ala and fused sacral bodies. Normal sacrococcygeal junction with a normal angulation. Normal coccygeal segments. The presacral soft tissue structures are unremarkable. There is no demonstrated fracture or destructive osseous process. RAD/Sacrum-Coccyx min 2 Views IMPRESSION: Normal x-rays of the sacrum and coccyx. Electronically Signed: Amos Olguin MD at 12:53 EDT ,
== END | disposition home or self-care (01) ==
PROVIDERS: PCP Family Medicine Geriatric Medicine; Referring Provider Family Medicine Geriatric Medicine; Visit Provider Family Medicine Geriatric Medicine
DX: M53.3 Sacrococcygeal disorders, not elsewhere classified (principal)
CPT/HCPCS: 72220

== ENCOUNTER → 2023-08-25 | Outpatient (CLI) | payer MEDICARE, BC, SELFPAY ==
[2023-08-25 14:49] LABS: Amphetamine Urine VISTA NEGATIVE (<1000 ng/mL); Barbiturate Urine VISTA NEGATIVE (< 200 ng/mL); Benzodiazepine Urine VISTA NEGATIVE (< 200 ng/mL); Cocaine Urine VISTA NEGATIVE (< 300 ng/mL); Ecstacy Urine VISTA POSITIVE (< 500 ng/mL); Methadone Urine VISTA NEGATIVE (< 300 ng/mL); PCP Urine VISTA NEGATIVE (< 25 ng/mL); THC Urine VISTA NEGATIVE (< 50 ng/mL); Vista UDS pH Range 5
== END | disposition home or self-care (01) ==
LOC: LAB 12:29
PROVIDERS: PCP Family Medicine Geriatric Medicine; Referring Provider Anesthesiology Pain Medicine; Visit Provider Anesthesiology Pain Medicine
DX: F11.20 Opioid dependence, uncomplicated (principal)
CPT/HCPCS: 80307

== ENCOUNTER → 2023-08-27 | Outpatient (CLI) | payer MEDICARE, BC, SELFPAY ==
[2023-08-27 11:44] LABS: Absolute Lymphocyte Count 0.85 X10^3/uL (0.83-4.51); Absolute Neutrophil Count 5.4 X10^3/uL (2.0-7.7); Basophil# 0.03 X10^3/uL; Basophil% 0.4 % (0-1); Eosinophil# 0.25 X10^3/uL; Eosinophils% 3.2 % (0-5); Hematocrit 37.1 % (40-54); Hemoglobin 11.6 g/dL (13.0-16.5); Lymphocyte # 0.85 X10^3/ul (0.83-4.51); Lymphocyte % 10.9 % (19-41); Mean Corp Hgb Conc 31.3 g/dL (32-36); Mean Corpuscular Hgb 30.9 pg (27.0-32.0); Mean Corpuscular Volume 98.9 fL (80-94); Monocyte# 1.09 X10^3/uL; NRBC Flagged by Analyzer 0 % (0-5); Neutrophil # 5.37 X10^3/uL (2.7-7.7); Neutrophil % 69.2 % (47-70); POSITIVE COUNT YES; POSITIVE MORPHOLOGY YES; Platelet Count 67 K/mm3 (150-450); RBC Distribution Width CV 18.8 % (11.6-14.6); RBC Distribution Width SD 68.2 fl (35.1-43.9); Red Blood Count 3.75 M/mm3 (4.6-6.2); White Blood Count 7.8 K/mm3 (4.4-11.0)
[2023-08-27 11:48] LABS: Differential Indicated SCAN CRITERIA MET
[2023-08-27 12:01] LABS: Vitamin D,25 Hydroxy 93.6 ng/mL
[2023-08-27 12:06] LABS: Differential Comment SCANNED
[2023-08-27 12:07] LABS: Platelet Estimate MOD DEC (ADEQ)
[2023-08-27 12:10] LABS: AST(SGOT) 53 U/L (15-37); Alanine Aminotransfer ALT/SGPT 47 U/L (16-61); Albumin, Serum 3.6 g/dL (3.2-5.0); Alkaline Phosphatase 141 U/L (45-117); Anion Gap 4 (5-15); BUN 38 mg/dL (7-18); BUN/Creat Ratio 37.3 RATIO (10-20); Chloride 102 mmol/L (98-107); Creatinine, Serum 1.02 mg/dL (0.70-1.30); EST Glomerular Filtration Rate 77 mL/min (>60); Est Glom Filt Rate - Afr Amer 93 mL/min (>60); Globulin 3.6 g/dL (2.2-4.2); Glucose 97 mg/dL (74-106); Potassium 4.2 mmol/L (3.5-5.1); Protein, Total 7.2 g/dL (6.4-8.2); Sodium Level 135 mmol/L (136-145); Thyroid Stim Hormone (TSH) 9.07 uIU/mL (0.358-3.74)
== END | disposition home or self-care (01) ==
LOC: POLAB3 09:17
PROVIDERS: PCP Family Medicine Geriatric Medicine; Visit Provider Family Medicine Geriatric Medicine
DX: R53.83 Other fatigue (principal); E55.9 Vitamin D deficiency, unspecified
CPT/HCPCS: 36415; 80053; 82306; 84443; 85025

== ENCOUNTER 2023-09-09 10:53 | Outpatient (RCR) | payer MEDICARE, BC, SELFPAY ==
[2023-08-15 21:33] VITALS: BMI 23.1
[2023-09-09 11:29] LABS: International Normalized Ratio 3.6; Prothrombin Time (Protime)PT. 35.9 SECONDS (11.7-14.9)
== END 2023-09-15 22:36 | disposition home or self-care (01) ==
LOC: LAB 10:53
PROVIDERS: Family Provider Family Medicine Geriatric Medicine; PCP Family Medicine Geriatric Medicine; Referring Provider Nurse Practitioner Family; Visit Provider Nurse Practitioner Family
DX: I48.0 Paroxysmal atrial fibrillation (principal); Z79.01 Long term (current) use of anticoagulants
CPT/HCPCS: 36415; 85610

== ENCOUNTER 2023-09-25 03:22 | Emergency (ER) | payer MEDICARE, BC, SELFPAY ==
[2023-09-25 03:23] VITALS: BP 116/69; PULSE 58; RESP 18; TEMP 36.4; O2SAT 100; BMI 22.6
--- NOTE | 2023-09-25 04:18 | CT_ITS ---
We are attempting to reach an attending provider to discuss findings. An addendum with communication details will be sent when the communication is complete. INDICATION: head injury EXAMINATION: CT BRAIN - CT Head or Brain W/O Contrast Injection TECHNIQUE: Multiple axial images were obtained of the head without intravenous contrast. A radiation dose optimization technique was used for this scan. IV Contrast dosage and agent: None. RADIATION DOSAGE (If Supplied By Facility): CTDIvol = ( 47.06 ) mGy, DLP = ( 925.62 ) mGycm COMPARISON: CT head 04/29/2023. FINDINGS: BRAIN: No acute bleed. No edema. Small focus of encephalomalacia in the right frontal lobe unchanged. Becker-white matter differentiation is maintained. VENTRICLES AND SULCI: Ventricles are not dilated. The sulci are prominent. EXTRA-AXIAL: No hemorrhage, fluid collection, or mass. CALVARIUM / SKULL BASE: Unremarkable. FACE/SINUSES: There is mild stranding periorbital and the left inferiorly adjacent to the inferior rectus muscle likely extraconal stranding or hematoma. No definite fracture. Wall thickening of the left maxillary sinus chronic. SOFT TISSUES: Soft tissue swelling in the left frontal scalp anteriorly, and left periorbital region. CT/Brain/Head without Contrast IMPRESSION: Scalp contusion. No evidence of acute intracranial injury. Left orbital contusion and likely extra-articular at the inferior orbit without definite fracture. Not present on prior CT head. Recommend ophthalmology follow-up. Electronically Signed: Shante Dia MD at 6:50 EDT ,
--- NOTE | 2023-09-25 04:18 | CT_ITS ---
INDICATION: injury EXAMINATION: CT FACIAL BONES - CT Maxillofacial W/O Contrast Injection TECHNIQUE: Helically acquired images were obtained of the facial bones. A radiation dose optimization technique was used for this scan. IV Contrast dosage and agent: None. RADIATION DOSAGE (If Supplied By Facility): CTDIvol = ( 25.01 ) mGy, DLP = ( 523.64 ) mGycm COMPARISON: None. FINDINGS: ORBITS: No fracture demonstrated. Globes appear intact. No retrobulbar hematoma. NASAL BONES: Unremarkable. NASOETHMOID COMPLEX: Unremarkable. ZYGOMATIC ARCHES: Unremarkable. MAXILLAE: Unremarkable. PTERYGOID PLATES: Unremarkable. MANDIBLE: Surgical hardware in the mandible bilaterally. No fracture demonstrated. No dislocation at the temporomandibular joints. SINUSES: Clear. SOFT TISSUES: Soft tissue swelling in the left supraorbital/frontal scalp. OTHER: There is a lytic defect in the left parasymphyseal mandible at the site of missing teeth, #22 and 23, which extends through the cortex. . Likely related to prior extraction, posttraumatic or infection not entirely excluded. Similar but less pronounced defect at a right upper site. CT/Sinus/Facial Bone IMPRESSION: No evidence of fracture. Electronically Signed: Shante Dia MD at 6:33 EDT ,
[2023-09-25] MEDS: Ondansetron 4 MG/2 ML Vial IV (04:32)
[2023-09-25] MEDS: Morphine 4 MG/ML Syringe IV (04:32)
[2023-09-25 04:37] LABS: Absolute Lymphocyte Count 0.73 X10^3/uL (0.83-4.51); Absolute Neutrophil Count 5.6 X10^3/uL (2.0-7.7); Basophil# 0.03 X10^3/uL; Basophil% 0.4 % (0-1); Eosinophil# 0.03 X10^3/uL; Eosinophils% 0.4 % (0-5); Hematocrit 35.1 % (40-54); Hemoglobin 11.2 g/dL (13.0-16.5); Lymphocyte # 0.73 X10^3/ul (0.83-4.51); Lymphocyte % 9.9 % (19-41); Mean Corp Hgb Conc 31.9 g/dL (32-36); Mean Corpuscular Hgb 30.8 pg (27.0-32.0); Mean Corpuscular Volume 96.4 fL (80-94); Mean Platelet Vol. 13.2 fl (6.2-12.0); Monocyte# 0.97 X10^3/uL; Monocyte% 13.2 % (0-10); NRBC Flagged by Analyzer 0 % (0-5); Neutrophil # 5.56 X10^3/uL (2.7-7.7); Neutrophil % 75.4 % (47-70); Platelet Count 109 K/mm3 (150-450); RBC Distribution Width CV 15.6 % (11.6-14.6); RBC Distribution Width SD 55.5 fl (35.1-43.9); Red Blood Count 3.64 M/mm3 (4.6-6.2); White Blood Count 7.4 K/mm3 (4.4-11.0)
[2023-09-25 04:52] LABS: International Normalized Ratio 1.2; Prothrombin Time (Protime)PT. 14.9 SECONDS (11.7-14.9)
[2023-09-25 04:53] LABS: Partial Thromboplast Time 32.5 Seconds (24.1-36.2)
[2023-09-25 04:55] LABS: Anion Gap 5 (5-15); BUN 30 mg/dL (7-18); BUN/Creat Ratio 28.3 RATIO (10-20); Calcium,Total 8.9 mg/dL (8.5-10.1); Chloride 102 mmol/L (98-107); Creatinine, Serum 1.06 mg/dL (0.70-1.30); EST Glomerular Filtration Rate 74 mL/min (>60); Est Glom Filt Rate - Afr Amer 89 mL/min (>60); Estimated Creatinine Clearance 65.66 ml/min; Glucose 121 mg/dL (74-106); Magnesium 2.2 mg/dL (1.6-2.6); Potassium 4.1 mmol/L (3.5-5.1); Sodium Level 134 mmol/L (136-145)
[2023-09-25 05:50] VITALS: BP 94/67; PULSE 84; RESP 17; TEMP 36.2; O2SAT 91
[2023-09-25] MEDS: 0.9% Normal Saline (1000mL) 1,000 ML 999 ML IV (06:18)
[2023-09-25 06:19] VITALS: BP 102/67; PULSE 70; RESP 16; O2SAT 92
[2023-09-25] MEDS: Tetracaine 0.5% Ophthalmic Bottle 1 DRP EACH EYE (07:06)
[2023-09-25] MEDS: fentaNYL 100 MCG/2 ML Ampul 50 MCG IV (07:08)
--- NOTE | 2023-09-25 07:36 | EX.ED.DYSGE1 ---
HPI History of Present Illness Chief Complaint: Fall Informant: patient and spouse/S.O. Narrative Narrative: Patient is a 68-year-old male with past medical history of hypertension and hyperlipidemia as well as paroxysmal atrial fibrillation currently on Coumadin. He states this evening he got up to use the restroom. He reports he was able to walk to the bathroom and use it. After using the restroom he was walking back to his bed when he felt lightheaded and developed darkness/tunnel vision and then fell to the ground. He states as he fell he struck his head/face against the wall. He denies any loss of consciousness. However he does admit to the Coumadin use secondary to his atrial fibrillation. 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 Nonrheumatic mitral valve regurgitation Other peripheral vascular disease Paroxysmal atrial fibrillation Pure hypercholesterolemia Sick sinus syndrome Sleep apnea Smoker Syncope Tobacco use disorder Home Medications ?Medication ?Instructions ?Recorded ?Last Taken ?Type bupropion HCl (smoking deter) 150 150 mg PO BID SMOKING 09/09/17 10/01/21 History mg tablet,12 hr sustained-release(smoking deterrent) tamsulosin 0.4 mg capsule 0.4 mg PO BID urinary tract 09/08/18 10/01/21 History hydrocodone-acetaminophen 5-325mg 1 tab PO 4X/DAY PAIN 06/05/21 10/01/21 History 5mg-325mg levothyroxine 100 mcg tablet 100 mcg PO DAILY THYROID 06/05/21 10/01/21 History aspirin 81 mg tablet,delayed 81 mg PO DAILY blood thinner 07/25/21 10/01/21 History release (Adult Aspirin Regimen) potassium 99 mg tablet 550 mg PO DAILY SUPPLEMENT 07/25/21 10/01/21 History doxepin 150 mg capsule 150 mg PO DAILY depression 10/01/21 09/30/21 History levofloxacin 250 mg tablet 250 mg PO DAILY 11/05/21 Unknown History albuterol sulfate 90 mcg/actuation 2 puff inhalation Q4H PRN SOB 01/31/22 Unknown History aerosol inhaler (ProAir HFA) cholecalciferol (vitamin D3) 25 25 mcg PO DAILY 01/31/22 Unknown History mcg (1,000 unit) tablet tizanidine 4 mg tablet 4 mg PO QHS muscle spasm 01/31/22 Unknown History trazodone 100 mg tablet 300 mg PO QHS mood 01/31/22 Unknown History atorvastatin 20 mg tablet 20 mg PO DAILY 08/12/22 Unknown History warfarin 2.5 mg tablet 2.5 mg PO DAILY BLOOD THINNER #90 08/12/22 Unknown Rx tabs metoprolol succinate 50 mg 50 mg PO DAILY this is a dose 10/08/22 Unknown Rx tablet,extended release 24 hr increase #90 tabs furosemide 40 mg tablet (Lasix) 40 mg PO DAILY #90 tabs 03/19/23 Unknown Rx empagliflozin 10 mg tablet 10 mg PO DAILY #90 tabs 06/01/23 Unknown Rx (Jardiance) spironolactone 25 mg tablet 25 mg PO DAILY #30 tabs 06/01/23 Unknown Rx Allergy/AdvReac Type Severity Reaction Status Date / Time No Known Allergies Allergy Verified 08/13/23 08:33 Family History (Reviewed 08/13/23 @ 08:44 by Evangelina Marina MANAGED CARE COORDINATOR, MANAGED CARE COORDINATOR-C) Grandfather CAD (coronary artery disease) Father CAD (coronary artery disease) Hx of CABG Surgical History (Reviewed 08/13/23 @ 08:43 by Evangelina Marina MANAGED CARE COORDINATOR, MANAGED CARE COORDINATOR-C) History of appendectomy History of hernia repair History of mitral valve replacement History of mitral valve replacement with bioprosthetic valve (07/27/14) History of shoulder surgery History of tricuspid valve repair (~07/27/14) History of tricuspid valve repair (~07/27/14) Social History (Reviewed 08/13/23 @ 08:44 by Evangelina Marina MANAGED CARE COORDINATOR, MANAGED CARE COORDINATOR-C) Smoking Status: Former smoker alcohol intake: current details: occasional substance use type: former substance user, crack/cocaine and heroin ROS ROS ED Constitutional Constitutional ED: Denies chills or fever(s) Eyes Eyes: Denies blurry vision or diplopia ENT ENT ED: Denies sore throat Cardiovascular Cardiovascular: Reports other Details: Positive near syncope ; Denies chest pain or racing heartbeat Respiratory/Chest Respiratory/Chest: Denies cough or dyspnea Gastrointestinal Gastrointestinal: Denies abdominal pain, diarrhea, nausea or vomiting Genitourinary Genitourinary ED: Denies dysuria Musculoskeletal Musculoskeletal: Reports other Details: Positive facial pain ; Denies back pain or neck pain Integumentary Reports Abrasions; Denies rash Neurologic Neurologic: Denies headache(s), paresthesias or weakness Hematologic/Lymphatic Hematologic/Lymphatic: Reports easy bleeding and easy bruising EXAM Physical Exam Const Vital Signs: 09/25/23 03:23 09/25/23 03:26 09/25/23 05:50 Temperature 97.6 F L 97.2 F L Temperature Source Temporal Temporal Pulse Rate 58 L 84 Respiratory Rate 18 17 Respiratory Effort Normal Non-Labored Respiratory Depth Normal Respiratory Pattern Normal Blood Pressure 116/69 94/67 Blood Pressure Mean 84 76 Pulse Ox 100 91 Oxygen Delivery Method Room Air 09/25/23 06:19 Temperature Temperature Source Pulse Rate 70 Respiratory Rate 16 Respiratory Effort Respiratory Depth Respiratory Pattern Blood Pressure 102/67 Blood Pressure Mean 78 Pulse Ox 92 Oxygen Delivery Method Room Air Positive well nourished and well developed General Appearance ED: well developed; Negative for pallor HEENT Reports TM's clear HEENT Narrative: Patient has soft tissue swelling with ecchymosis across the left cheek and orbital region consistent with fall. No signs of depressed or basilar skull fracture No septal hematoma Tympanic Membrane ED: Yes TM's clear Eyes PERRL and EOMs intact bilaterally Eyes Narrative: There is a left-sided subconjunctival hemorrhage noted No hyphema Neck supple Neck Narrative: No bony deformity or step-off of the cervical spine no midline tenderness to palpation Chest Wall palpation of chest normal Chest Narrative: No bony deformity or crepitance of the chest wall Resp normal respiratory effort and clear to auscultation bilaterally Cardio regular rate and regular rhythm GI normal to inspection, nondistended, normoactive bowel sounds, non-tender, non-distended and no masses Auscultation: normoactive bowel sounds Palpation: soft Back/Spine Back/Spine Narrative: No bony deformity or step-off of the thoracic or lumbar spine no midline tenderness to palpation Extremity Extremity Narrative: Pelvis is stable there is no shortening or external rotation of either lower extremity Patient is able to move all extremities Neuro oriented x3, CN's II-XII intact bilaterally and no sensory deficits noted Neuro Narrative: Cranial nerves II through XII are grossly intact without focal neurologic deficit No pronator drift no dysmetria no truncal ataxia NIH stroke scale score of 0 Sensorium / Orientation: alert Motor Exam: strength 5/5 throughout Psych mental status grossly normal Skin no rashes or lesions noted, No no wounds and No skin turgor normal Skin Narrative: Soft tissue swelling with ecchymosis as documented above General Skin Exam: Negative for jaundice or pallor MDM MDM MDM Narrative Medical decision making narrative: Patient arrived to the ER with stable vitals and reported a near syncopal event causing him to fall when he became lightheaded. Symptoms are most consistent with orthostatic near syncope. With his head trauma and Coumadin use there is concern for skull fracture versus subdural or epidural hematoma versus facial fracture/orbital floor fracture. As he is on Coumadin there is concern for acute blood loss anemia or potential electrolyte abnormality or acute kidney injury secondary to his atrial fibrillation. Basic blood work was obtained and reveals no clinically significant finding. Imaging studies revealed no acute brain bleed or facial fracture or cervical spine injury. There is no retrobulbar hematoma noted. Patient does not have a septal hematoma or hyphema and pressures are roughly equal between each eye with the left eye having a pressure of 20 in the right eye having a pressure of 18. At this time the patient does not have signs of acute underlying trauma based on his imaging studies and his labs revealed no clinically significant changes he is also able to ambulate with a steady gait. Therefore do not feel there is need for further workup and he can be discharged home and follow-up on an outpatient basis History & Record Review Discussion w/independent historian: Patient and Significant other Lab Data Attestation: I reviewed the patient's lab results. Labs: Laboratory Results - last 24 hr 09/25/23 04:25 WBC 7.4 RBC 3.64 L Hgb 11.2 L Hct 35.1 L MCV 96.4 H MCH 30.8 MCHC 31.9 L RDW Std Deviation 55.5 H RDW Coeff of Luciana 15.6 H Plt Count 109 L MPV 13.2 H Immature Gran % (Auto) 0.700 Neut % (Auto) 75.4 H Lymph % (Auto) 9.9 L [place] % (Auto) 13.2 H Eos % (Auto) 0.4 Baso % (Auto) 0.4 Absolute Neuts (auto) 5.6 Absolute Lymphs (auto) 0.73 L Nucleated RBC % 0 PT 14.9 INR 1.2 APTT 32.5 Sodium 134 L Potassium 4.1 Chloride 102 Carbon Dioxide 27.0 Anion Gap 5 BUN 30 H Creatinine 1.06 Estim Creat Clear Calc 65.66 Est GFR (MDRD) Af Amer 89 Est GFR (MDRD) Non-Af 74 BUN/Creatinine Ratio 28.3 H Glucose 121 H Calcium 8.9 Magnesium 2.2 Radiography Diagnostic Testing: Clinical Impression(s) from Imaging Studies Brain CT 09/25/23 04:18 IMPRESSION: Scalp contusion. No evidence of acute intracranial injury. Left orbital contusion and likely extra-articular at the inferior orbit without definite fracture. Not present on prior CT head. Recommend ophthalmology follow-up. Electronically Signed: Shante Dia MD at 6:50 EDT Reading Location ID and State: [facility] / [place] Tel , Service support , ADDENDUM: 09/25/23 0703 IMPRESSION: Scalp contusion. No evidence of acute intracranial injury. Left orbital contusion and likely extra-articular at the inferior orbit without definite fracture. Not present on prior CT head. Recommend ophthalmology follow-up. N.B. : The above Results were Read Back by Shante Dia MD to Jesús Perez DO, and understanding confirmed on 09/25/2023 06:56:27 (ET). Electronically Signed: Shante Dia MD at 6:50 EDT Reading Location ID and State: [facility] the [facility] / [place] Tel , Service support , Facial/Sinus 09/25/23 04:18 IMPRESSION: No evidence of fracture. Electronically Signed: Shante Dia MD at 6:33 EDT , ADDENDUM: 09/25/23 0700 IMPRESSION: undefined Discharge Plan Triage Chief Complaint: Fall ED Provider: Jesús Perez Dx/Rx/DC Orders Clinical Impression: Subconjunctival hemorrhage, Facial laceration, Orthostatic dizziness, Facial hematoma, assisted current use of anticoagulant, Cardiac pacemaker in situ Instructions: Subconjunctival Hemorrhage, ED Hematoma, ED Laceration, Skin Adhesive Prescriptions: No Action trazodone 100 mg tablet 300 mg PO QHS albuterol sulfate [ProAir HFA] 90 mcg/actuation HFA aerosol inhaler 2 puff INHALATION Q4H PRN (Reason: SOB) bupropion HCl (smoking deter) 150 mg tablet extended release 12 hr 150 mg PO BID potassium 99 mg tablet 550 mg PO DAILY aspirin [Adult Aspirin Regimen] 81 mg tablet,delayed release (DR/EC) 81 mg PO DAILY cholecalciferol (vitamin D3) 25 mcg (1,000 unit) tablet 25 mcg PO DAILY atorvastatin 20 mg tablet 20 mg PO DAILY warfarin 2.5 mg tablet 2.5 mg PO DAILY Qty: 90 3RF Protocol: Dose Management Condition: Thursday Dose/Route: 2.5 mg Instruction: 1 x 2.5 mg tablet Condition: Thursday Dose/Route: 2.5 mg Instruction: 1 x 2.5 mg tablet Condition: Thursday Dose/Route: 2.5 mg Instruction: 1 x 2.5 mg tablet Condition: Thursday Dose/Route: 2.5 mg Instruction: 1 x 2.5 mg tablet Condition: Dose/Route: 2.5 mg Instruction: 1 x 2.5 mg tablet Condition: Thursday Dose/Route: 2.5 mg Instruction: 1 x 2.5 mg tablet Condition: Thursday Dose/Route: 2.5 mg Instruction: 1 x 2.5 mg tablet Protocol Text: Adjustment Start Date: Thursday10/02/23 INR Value: 3.0 INR Date: 10/02/23 Recheck Date: 10/16/23 tamsulosin 0.4 mg capsule 0.4 mg PO BID Patient Comments: Prostate hydrocodone-acetaminophen 5-325 mg tablet 1 tab PO 4X/DAY levothyroxine 100 mcg tablet 100 mcg PO DAILY doxepin 150 mg Capsule 150 mg PO DAILY levofloxacin 250 mg Tablet 250 mg PO DAILY tizanidine 4 mg tablet 4 mg PO QHS metoprolol succinate 50 mg tablet extended release 24 hr 50 mg PO DAILY Qty: 90 3RF furosemide [Lasix] 40 mg tablet 40 mg PO DAILY Qty: 90 4RF Jardiance 10 mg tablet 10 mg PO DAILY Qty: 90 3RF spironolactone 25 mg tablet 25 mg PO DAILY Qty: 30 11RF Primary Care Provider: Fracisco Carvalho Chi Referrals: Fracisco Carvalho Chi, MD [Primary Care Provider] - Activity Restrictions/Additional Instructions: Your CT scan did not show a brain bleed or facial fracture but it did show bruising around your inferior rectus muscle consistent with an extraconal contusion. Secondary to this please contact your eye doctor and follow-up with them for repeat evaluation. Return to the ER should you have any further concerns Print Language: Citizen Of [place] Disposition Disposition: Home, Self Care Discharge Date/Time: 09/25/23 07:50
[2023-09-25 07:49] VITALS: BP 109/76; PULSE 82; RESP 16; TEMP 36.4; O2SAT 93
== END 2023-09-25 07:50 | disposition home or self-care (01) ==
PROVIDERS: Emergency Provider Emergency Medicine; PCP Family Medicine Geriatric Medicine; Visit Provider Emergency Medicine
DX: S01.81XA Laceration without foreign body of other part of head, initial encounter (principal); I48.0 Paroxysmal atrial fibrillation; Z79.01 Long term (current) use of anticoagulants; H11.30 Conjunctival hemorrhage, unspecified eye; R42 Dizziness and giddiness; Z95.0 Presence of cardiac pacemaker; Z87.891 Personal history of nicotine dependence; I10 Essential (primary) hypertension; E78.00 Pure hypercholesterolemia, unspecified; W19.XXXA Unspecified fall, initial encounter
CPT/HCPCS: 70450; 70486; 80048; 83735; 85025; 85610; 85730; 93005; 96361; 96374; 96375; 99282; J7030; A4216; J2405

== ENCOUNTER 2023-10-02 10:54 | Outpatient (RCR) | payer MEDICARE, BC, SELFPAY ==
[2023-09-15 22:36] VITALS: BMI 23.1
[2023-09-16 11:08] LABS: International Normalized Ratio 3.2; Prothrombin Time (Protime)PT. 32.3 SECONDS (11.7-14.9)
[2023-09-22 11:00] LABS: International Normalized Ratio 1.2; Prothrombin Time (Protime)PT. 15.5 SECONDS (11.7-14.9)
[2023-10-02 11:32] LABS: Prothrombin Time (Protime)PT. 30.8 SECONDS (11.7-14.9)
== END 2023-10-02 18:00 | disposition home or self-care (01) ==
LOC: LAB 10:54
PROVIDERS: Family Provider Family Medicine Geriatric Medicine; PCP Family Medicine Geriatric Medicine; Referring Provider Nurse Practitioner Family; Visit Provider Nurse Practitioner Family
DX: Z79.01 Long term (current) use of anticoagulants; I48.91 Unspecified atrial fibrillation
CPT/HCPCS: 36415; 85610

== ENCOUNTER 2023-11-11 09:53 | Outpatient (RCR) | payer MEDICARE, BC, SELFPAY ==
[2023-10-19 09:10] VITALS: BMI 23.1
[2023-11-11 10:21] LABS: Prothrombin Time (Protime)PT. 40.1 SECONDS (11.7-14.9)
[2023-11-11 10:37] LABS: International Normalized Ratio 4.2
== END 2023-11-11 18:00 | disposition home or self-care (01) ==
LOC: LAB 09:53
PROVIDERS: Family Provider Family Medicine Geriatric Medicine; PCP Family Medicine Geriatric Medicine; Referring Provider Nurse Practitioner Family; Visit Provider Nurse Practitioner Family
DX: I48.0 Paroxysmal atrial fibrillation (principal); Z79.01 Long term (current) use of anticoagulants
CPT/HCPCS: 36415; 85610

== ENCOUNTER 2023-12-02 10:22 | Outpatient (RCR) | payer MEDICARE, BC, SELFPAY ==
[2023-11-15 22:27] VITALS: BMI 23.1
[2023-12-02 11:47] LABS: International Normalized Ratio 3.2; Prothrombin Time (Protime)PT. 32.5 SECONDS (11.7-14.9)
== END 2023-12-16 18:00 | disposition home or self-care (01) ==
LOC: LAB 10:22
PROVIDERS: Family Provider Family Medicine Geriatric Medicine; PCP Family Medicine Geriatric Medicine; Referring Provider Nurse Practitioner Family; Visit Provider Nurse Practitioner Family
DX: I48.0 Paroxysmal atrial fibrillation (principal); Z79.01 Long term (current) use of anticoagulants
CPT/HCPCS: 36415; 85610

== ENCOUNTER 2023-12-08 23:25 | Observation (INO) | payer MEDICARE, BC, SELFPAY ==
[2023-12-08 23:26] VITALS: BP 105/63; PULSE 70; RESP 18; TEMP 36.6; O2SAT 93
--- NOTE | 2023-12-08 23:30 | CT_ITS ---
INDICATION: Trauma, fall, neck pain EXAMINATION: CT CERVICAL SPINE - CT Spine Cervical W/O Contrast Injection TECHNIQUE: Helically acquired images were obtained of the cervical spine. 2D reformatted images were reviewed. A radiation dose optimization technique was used for this scan. IV Contrast dosage and agent: None. COMPARISON: 08/31/2018 FINDINGS: VERTEBRAE: No acute fracture of the cervical spine. Anatomic alignment. DISCS and SPINAL CANAL: Stable degenerative discogenic changes. No critical stenosis. NECK SOFT TISSUES: No prevertebral soft tissue swelling. LUNG APICES: No acute pulmonary findings. CT/Spine Cervical without Contras IMPRESSION: Stable degenerative changes. No acute fracture of the cervical spine. Electronically Signed: Wilfrido Vance MD at 0:27 EDT ,
--- NOTE | 2023-12-08 23:30 | CT_ITS ---
INDICATION: Trauma, head injury EXAMINATION: CT BRAIN - CT Head or Brain W/O Contrast Injection TECHNIQUE: Multiple axial images were obtained of the head without intravenous contrast. A radiation dose optimization technique was used for this scan. IV Contrast dosage and agent: None. COMPARISON: 09/25/2023 FINDINGS: BRAIN PARENCHYMA: No intra- or extra-axial hemorrhage. No acute territorial infarction. Stable small focus of encephalomalacia right frontal lobe. No intracranial mass or mass effect. There is preservation of the brooke/white matter interface. Posterior fossa structures are unremarkable. CSF SPACES: Appropriate for age. No hydrocephalus. Basal cisterns are patent. CALVARIUM, SKULL BASE, PARANASAL SINUSES AND MASTOID AIR CELLS: Clear. No acute fracture. Right posterior parietal cephalhematoma. ORBITS: Both globes, extraocular muscles, optic nerves and retrobulbar fat appear unremarkable. CT/Brain/Head without Contrast IMPRESSION: No acute intracranial findings. Electronically Signed: Wilfrido Vance MD at 0:24 EDT ,
--- NOTE | 2023-12-08 23:34 | ED.VIS.FALL ---
HPI HPI - Fall History of Present Illness Chief Complaint: Fall Detail of Chief Complaint: Fall with head injury Informant: patient Narrative Narrative: Patient presents the emergency department from home with complaint of a fall. Patient unsure what happened. heard him fall he was conscious when she got there. Patient does admit to drinking tonight has been drinking vodka. He complains of head and neck pain. He is on Coumadin for history of A-fib. Patient denies chest pain or abdominal pain. Patient denies recent illness. [facility] Medical History (Updated 12/09/23 @ 01:[address] Bruna Santiago, DO) Alcohol abuse Anxiety Smoker Sleep apnea Hypertension Alcohol withdrawal Paroxysmal atrial fibrillation Essential (primary) hypertension Pure hypercholesterolemia Hypothyroidism Depression History of bacterial endocarditis Tobacco use disorder History of DVT (deep vein thrombosis) Other peripheral vascular disease Cardiac pacemaker in situ Nonrheumatic mitral valve regurgitation Sick sinus syndrome senior care current use of anticoagulant Syncope Home Medications ?Medication ?Instructions ?Recorded ?Last Taken ?Type bupropion HCl (smoking deter) 150 150 mg PO BID SMOKING 09/09/17 10/01/21 History mg tablet,12 hr sustained-release(smoking deterrent) tamsulosin 0.4 mg capsule 0.4 mg PO BID urinary tract 09/08/18 10/01/21 History hydrocodone-acetaminophen 5-325mg 1 tab PO 4X/DAY PAIN 06/05/21 10/01/21 History 5mg-325mg aspirin 81 mg tablet,delayed 81 mg PO DAILY blood thinner 07/25/21 10/01/21 History release (Adult Aspirin Regimen) doxepin 150 mg capsule 150 mg PO DAILY depression 10/01/21 09/30/21 History albuterol sulfate 90 mcg/actuation 2 puff inhalation Q4H PRN SOB 01/31/22 Unknown History aerosol inhaler (ProAir HFA) cholecalciferol (vitamin D3) 25 25 mcg PO DAILY 01/31/22 Unknown History mcg (1,000 unit) tablet tizanidine 4 mg tablet 4 mg PO QHS muscle spasm 01/31/22 Unknown History atorvastatin 20 mg tablet 20 mg PO DAILY 08/12/22 Unknown History warfarin 2.5 mg tablet 2.5 mg PO DAILY BLOOD THINNER #90 08/12/22 Unknown Rx tabs furosemide 40 mg tablet (Lasix) 40 mg PO DAILY #90 tabs 03/19/23 Unknown Rx empagliflozin 10 mg tablet 10 mg PO DAILY #90 tabs 06/01/23 Unknown Rx (Jardiance) spironolactone 25 mg tablet 25 mg PO DAILY #30 tabs 06/01/23 Unknown Rx metoprolol succinate 50 mg 50 mg PO DAILY this is a dose 11/02/23 Unknown Rx tablet,extended release 24 hr increase #90 tabs citalopram 20 mg tablet 20 mg PO QDAY 11/11/23 Unknown History potassium chloride 20 mEq 20 meq PO Q OTHER DAY 11/11/23 Unknown History tablet,extended release(part/cryst) (Klor-Con M) trazodone 100 mg tablet 200 mg PO QHS mood 11/11/23 Unknown History levothyroxine 100 mcg tablet 100 mcg PO DAILY 12/09/23 Unknown History Allergy/AdvReac Type Severity Reaction Status Date / Time No Known Allergies Allergy Verified 11/11/23 09:08 Family History Grandfather CAD (coronary artery disease) Father CAD (coronary artery disease) Hx of CABG Surgical History Perivalvular leak of prosthetic heart valve History of appendectomy History of tricuspid valve repair (~07/27/14) History of shoulder surgery History of hernia repair History of mitral valve replacement History of tricuspid valve repair (~07/27/14) History of mitral valve replacement with bioprosthetic valve (07/27/14) Social History Smoking Status: Former smoker how long ago did patient quit smokin months ago alcohol intake: current alcohol intake frequency: holidays/special occasions only substance use type: former substance user Date of last use: 6 years ago, crack/cocaine and heroin caffeine: Yes Type: coffee ROS ROS ED Review of Systems ROS Unobtainable: other Constitutional Constitutional ED: Reports lethargy; Denies chills, fever(s), sweats or weight loss Eyes Eyes: Denies blurry vision, change in vision or diplopia ENT ENT ED: Denies rhinorrhea or sore throat Cardiovascular Cardiovascular: Denies chest pain, orthopnea or racing heartbeat Respiratory/Chest Respiratory/Chest: Denies cough, dyspnea, dyspnea on exertion, orthopnea or sputum Gastrointestinal Gastrointestinal: Denies abdominal pain, diarrhea, nausea or vomiting Genitourinary Genitourinary ED: Denies dysuria, hematuria or urinary frequency Musculoskeletal Musculoskeletal: Reports neck pain; Denies arthralgias, back pain or myalgias Integumentary Denies abscess, Abrasions or rash Neurologic Neurologic: Reports headache(s); Denies weakness Psychiatric Psychiatric: Denies anxiety, depression or suicidal thoughts Endocrine Endocrinology: Denies polydipsia, polyphagia or polyuria Hematologic/Lymphatic Hematologic/Lymphatic: Denies easy bleeding, easy bruising or lymphadenopathy Allergic/Immunologic Allergic/Immunologic ED: Denies mouth swelling, tongue swelling or urticaria EXAM Physical Exam Const Vital Signs: 12/08/23 23:26 12/08/23 23:30 12/09/23 00:25 Temperature 98 F Temperature Source Oral Pulse Rate 70 70 Respiratory Rate 18 16 Respiratory Effort Normal Non-Labored Respiratory Depth Normal Respiratory Pattern Normal Blood Pressure 105/63 117/66 Blood Pressure Mean 77 83 Pulse Ox 93 97 Oxygen Delivery Method Room Air Room Air 12/09/23 01:05 Temperature 98.2 F Temperature Source Pulse Rate 70 Respiratory Rate 16 Respiratory Effort Respiratory Depth Respiratory Pattern Blood Pressure 110/67 Blood Pressure Mean 81 Pulse Ox 96 Oxygen Delivery Method Positive well nourished and well developed General Appearance ED: well developed and NAD HEENT Reports TM's clear and moist mucous membranes HEENT Narrative: Patient has a large laceration to posterior occiput measuring approximately 8 cm normocephalic and atraumatic; Negative for trauma or tenderness Tympanic Membrane ED: Yes TM's clear Eyes PERRL and EOMs intact bilaterally General Eye ED: Negative for pale conjunctiva or scleral icterus Neck no lymphadenopathy, supple and no JVD Neck Narrative: Tenderness diffusely about the C-spine. C-collar is in place. General: tenderness Chest Wall inspection of chest normal and palpation of chest normal Chest: Negative for tenderness Resp normal respiratory effort and clear to auscultation bilaterally Effort and Inspection: Negative for respiratory distress or pain with movement Auscultation: Negative for rhonchi, wheezes or diminished lung sounds Cardio regular rate, regular rhythm, S1 normal heart sound, S2 normal heart sound and no murmurs Peripheral Pulses: pulses 2+ throughout GI normal to inspection, nondistended, normoactive bowel sounds, soft to palpation, non-tender, non-distended and no masses Back/Spine no CVA tenderness and no thoracic nor lumbar tenderness Extremity normal to inspection General Extremety ED: Negative for edema General Extremity: Negative for edema Neuro oriented x3, CN's II-XII intact bilaterally, no sensory deficits noted and gait normal Sensorium / Orientation: awake, alert, oriented to person, oriented to place and oriented to time Motor Exam: strength 5/5 throughout and strength abnormal Psych mental status grossly normal Skin no rashes or lesions noted and no wounds MDM MDM MDM Narrative Medical decision making narrative: Patient presents emergency department after fall and injury to his head. Patient has no recollection of what happened. It is unclear if he had a syncopal episode or tripped or fell. Patient on Coumadin. CT scan of the brain without contrast showed no acute fractures or intracranial hemorrhage. Patient has CT of the C-spine that was negative for fractures. CBC with differential, 7.0 with hemoglobin 11 and platelet count of 105,000. INR was 5.2. Chemistries unremarkable. Patient had suture repair of his scalp laceration see nurses note he had a large hematoma. He was anesthetized with 1% lidocaine with epinephrine. Will apply pressure dressing. I ordered vitamin K 5 mg IV. Alcohol level pending. Recommended admission for observation. EKG will be obtained. Lab Data Attestation: I reviewed the patient's lab results. Labs: Laboratory Results - last 24 hr 12/08/23 12/09/23 23:38 00:21 WBC 7.0 RBC 3.50 L Hgb 11.0 L Hct 32.7 L MCV 93.4 MCH 31.4 MCHC 33.6 RDW Std Deviation 50.5 H RDW Coeff of Luciana 14.7 H Plt Count 105 L MPV 11.6 Immature Gran % (Auto) 0.700 Neut % (Auto) 65.2 Lymph % (Auto) 18.8 L [place] % (Auto) 11.6 H Eos % (Auto) 3.0 Baso % (Auto) 0.7 Absolute Neuts (auto) 4.6 Absolute Lymphs (auto) 1.32 Nucleated RBC % 0 PT 47.0 H INR 5.2 H* Sodium 136 Potassium 3.7 Chloride 104 Carbon Dioxide 21.0 Anion Gap 11 BUN 18 Creatinine 0.87 Est GFR (MDRD) Af Amer 113 Est GFR (MDRD) Non-Af 93 BUN/Creatinine Ratio 20.8 H Glucose 106 Calcium 8.1 L Ethyl Alcohol 264.0 Radiography Diagnostic Testing: Clinical Impression(s) from Imaging Studies Brain CT 12/08/23 23:30 IMPRESSION: No acute intracranial findings. Electronically Signed: Wilfrido Vance MD at 0:24 EDT , Cervical Spine CT 12/08/23 23:30 IMPRESSION: Stable degenerative changes. No acute fracture of the cervical spine. Electronically Signed: Wilfrido Vance MD at 0:27 EDT , EKG Initial EKG: Comments: Paced rhythm with rate of 70 bpm Procedures Lacerations Scalp laceration: Length: 1.18 in Depth: Sub Q Shape: Linear Prep: Sterile Conditions and Shure-Clens Laceration repair: Irrigated, Lidocaine with epi, Local and Skin sutures Irrigated (ml): 50 Number of Sutures/[place]: 3 Suture Information: Ethilon, Simple and 4-0 Discharge Plan Triage Chief Complaint: Fall ED Provider: Bruna Santiago Dx/Rx/DC Orders Clinical Impression: Fall, Closed head injury, Laceration of scalp, Alcohol intoxication Prescriptions: No Action albuterol sulfate [ProAir HFA] 90 mcg/actuation HFA aerosol inhaler 2 puff INHALATION Q4H PRN (Reason: SOB) trazodone 100 mg tablet 200 mg PO QHS bupropion HCl (smoking deter) 150 mg tablet extended release 12 hr 150 mg PO BID aspirin [Adult Aspirin Regimen] 81 mg tablet,delayed release (DR/EC) 81 mg PO DAILY cholecalciferol (vitamin D3) 25 mcg (1,000 unit) tablet 25 mcg PO DAILY atorvastatin 20 mg tablet 20 mg PO DAILY warfarin 2.5 mg tablet 2.5 mg PO DAILY Qty: 90 3RF Protocol: Dose Management Condition: Thursday Dose/Route: 2.5 mg Instruction: 1 x 2.5 mg tablet Condition: Thursday Dose/Route: 2.5 mg Instruction: 1 x 2.5 mg tablet Condition: Thursday Dose/Route: 2.5 mg Instruction: 1 x 2.5 mg tablet Condition: Thursday Dose/Route: 1.25 mg Instruction: 0.5 x 2.5 mg tablets Condition: Dose/Route: 1.25 mg Instruction: 0.5 x 2.5 mg tablets Condition: Thursday Dose/Route: 1.25 mg Instruction: 0.5 x 2.5 mg tablets Condition: Thursday Dose/Route: 2.5 mg Instruction: 1 x 2.5 mg tablet Protocol Text: Adjustment Start Date: Thursday12/02/23 INR Value: 3.2 INR Date: 12/02/23 Recheck Date: 12/16/23 citalopram 20 mg tablet 20 mg PO QDAY potassium chloride [Klor-Con M20] 20 mEq tablet,ER particles/crystals 20 meq PO Q OTHER DAY tamsulosin 0.4 mg capsule 0.4 mg PO BID Patient Comments: Prostate hydrocodone-acetaminophen 5-325 mg tablet 1 tab PO 4X/DAY doxepin 150 mg Capsule 150 mg PO DAILY levothyroxine 100 mcg tablet 100 mcg PO DAILY tizanidine 4 mg tablet 4 mg PO QHS furosemide [Lasix] 40 mg tablet 40 mg PO DAILY Qty: 90 4RF Jardiance 10 mg tablet 10 mg PO DAILY Qty: 90 3RF spironolactone 25 mg tablet 25 mg PO DAILY Qty: 30 11RF metoprolol succinate 50 mg tablet extended release 24 hr 50 mg PO DAILY Qty: 90 3RF Primary Care Provider: Fracisco Carvalho Chi Referrals: Fracisco Carvalho Chi, MD [Primary Care Provider] - Print Language: [place] Disposition Disposition: Acute Care [facility]
[2023-12-08] MEDS: 0.9% Normal Saline (1000mL) 1,000 ML 150 ML IV (23:45)
[2023-12-08 23:56] LABS: Absolute Lymphocyte Count 1.32 X10^3/uL (0.83-4.51); Absolute Neutrophil Count 4.6 X10^3/uL (2.0-7.7); Basophil# 0.05 X10^3/uL; Basophil% 0.7 % (0-1); Eosinophil# 0.21 X10^3/uL; Hematocrit 32.7 % (40-54); Lymphocyte # 1.32 X10^3/ul (0.83-4.51); Lymphocyte % 18.8 % (19-41); Mean Corp Hgb Conc 33.6 g/dL (32-36); Mean Corpuscular Hgb 31.4 pg (27.0-32.0); Mean Corpuscular Volume 93.4 fL (80-94); Mean Platelet Vol. 11.6 fl (6.2-12.0); Monocyte# 0.82 X10^3/uL; Monocyte% 11.6 % (0-10); NRBC Flagged by Analyzer 0 % (0-5); Neutrophil # 4.59 X10^3/uL (2.7-7.7); Neutrophil % 65.2 % (47-70); Platelet Count 105 K/mm3 (150-450); RBC Distribution Width CV 14.7 % (11.6-14.6); RBC Distribution Width SD 50.5 fl (35.1-43.9)
[2023-12-09] VITALS (7 sets, daily range): BP systolic 95–117; BP diastolic 55–68; PULSE 69–71; RESP 16–18; TEMP 36–36.8; O2SAT 92–97; BMI 21.6; BMI 21.1
[2023-12-09 00:09] LABS: Anion Gap 11 (5-15); BUN 18 mg/dL (7-18); BUN/Creat Ratio 20.8 RATIO (10-20); Calcium,Total 8.1 mg/dL (8.5-10.1); Chloride 104 mmol/L (98-107); Creatinine, Serum 0.87 mg/dL (0.70-1.30); EST Glomerular Filtration Rate 93 mL/min (>60); Est Glom Filt Rate - Afr Amer 113 mL/min (>60); Glucose 106 mg/dL (74-106); Potassium 3.7 mmol/L (3.5-5.1); Sodium Level 136 mmol/L (136-145)
[2023-12-09] MEDS: Diphth,Pertuss(Acell),Tet Vac 0.5 ML Vial IM (00:13)
[2023-12-09 00:17] LABS: International Normalized Ratio 5.2
[2023-12-09] MEDS: Lidocaine 1% /Epi 1:100 (20ml) 20 ML Vial 10 ML INFILT (00:17)
[2023-12-09] MEDS: fentaNYL 100 MCG/2 ML Ampul 25 MCG IV (00:25)
--- NOTE | 2023-12-09 00:38 | EKG12_ITS ---
Test Reason : DYSRHYTHMIA Blood Pressure : / mmHG Vent. Rate : 070 BPM Atrial Rate : 070 BPM P-R Int : 312 ms QRS Dur : 128 ms QT Int : 484 ms P-R-T Axes : 099 -72 -15 degrees QTc Int : 522 ms AV dual-paced rhythm with prolonged AV conduction Abnormal ECG Confirmed by DOUGLAS FINLEY, KE ([id number]), web content editor ALESHA WALDEN ([id number]) on 12/09/2023 8:59:06 AM Referred By: Confirmed By:KE COLE MD
[2023-12-09] MEDS: Phytonadione (Vit K) 5 MG in 0.9% Normal Saline (50mL Bag) 50 ML 150 MG IV (01:13)
[2023-12-09] MEDS: 0.9% Normal Saline (1000mL) 1,000 ML 150 ML IV (02:35)
--- NOTE | 2023-12-09 02:58 | PCM.HP.STD ---
HPI - General General Date of Admission: 12/09/23 Date of Service: 12/09/23 Chief Complaint: Fall with scalp laceration, alcohol intoxication, elevated INR HPI Narrative BRIANNE VALLE, is a 68 M who presented to [facility] ED on 12/09/2023 after a fall at home. Saw patient at bedside in the ED. Patient was sitting up fairly comfortably in bed, in no acute distress. Per ED staff, patient presented from home via his after an unwitnessed fall at home. stated that she heard him fall, did note that he was conscious when she found him on the floor. She noted that he had a laceration on the back of his head and he was reporting head and neck pain. He is on Coumadin and has a significant cardiac history, so she brought him in for further evaluation. She and patient did note that he had been drinking vodka this evening and had too much to drink. On arrival to the ED, BP was borderline hypotensive but vitals were otherwise unremarkable. Labs were notable for hemoglobin 11.0, platelet count 105 (both at baseline), BMP unremarkable. INR was elevated at 5.2. Alcohol level was 264. CT brain showed a right posterior parietal cephalohematoma, was otherwise unremarkable. CT C-spine was unremarkable. On exam, patient was found to have a posterior scalp laceration with large hematoma. He was anesthetized with 1% lidocaine with epinephrine and suture repair was done by ED physician, then pressure dressing was applied. When I saw the patient, he had Chase wrap around the head keeping the dressing in place. He was making appropriate eye contact with me and answering questions with short appropriate responses, but he did appear somewhat somnolent and appeared to be acutely intoxicated with alcohol. He reported continued head and neck pain, slightly improved after dressing was placed. Otherwise denies any chest pain, shortness of breath, abdominal pain or fevers or chills. No other acute concerns at this time. [facility] Medical History (Updated 12/09/23 @ 03:[address] 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 Syncope Home Medications ?Medication ?Instructions ?Recorded ?Last Taken ?Type bupropion HCl (smoking deter) 150 150 mg PO BID SMOKING 09/09/17 10/01/21 History mg tablet,12 hr sustained-release(smoking deterrent) tamsulosin 0.4 mg capsule 0.4 mg PO BID urinary tract 09/08/18 10/01/21 History hydrocodone-acetaminophen 5-325mg 1 tab PO 4X/DAY PAIN 06/05/21 10/01/21 History 5mg-325mg aspirin 81 mg tablet,delayed 81 mg PO DAILY blood thinner 07/25/21 10/01/21 History release (Adult Aspirin Regimen) doxepin 150 mg capsule 150 mg PO DAILY depression 10/01/21 09/30/21 History albuterol sulfate 90 mcg/actuation 2 puff inhalation Q4H PRN SOB 01/31/22 Unknown History aerosol inhaler (ProAir HFA) cholecalciferol (vitamin D3) 25 25 mcg PO DAILY 01/31/22 Unknown History mcg (1,000 unit) tablet tizanidine 4 mg tablet 4 mg PO QHS muscle spasm 01/31/22 Unknown History atorvastatin 20 mg tablet 20 mg PO DAILY 08/12/22 Unknown History warfarin 2.5 mg tablet 2.5 mg PO DAILY BLOOD THINNER #90 08/12/22 Unknown Rx tabs furosemide 40 mg tablet (Lasix) 40 mg PO DAILY #90 tabs 03/19/23 Unknown Rx empagliflozin 10 mg tablet 10 mg PO DAILY #90 tabs 06/01/23 Unknown Rx (Jardiance) spironolactone 25 mg tablet 25 mg PO DAILY #30 tabs 06/01/23 Unknown Rx metoprolol succinate 50 mg 50 mg PO DAILY this is a dose 11/02/23 Unknown Rx tablet,extended release 24 hr increase #90 tabs citalopram 20 mg tablet 20 mg PO QDAY 11/11/23 Unknown History potassium chloride 20 mEq 20 meq PO Q OTHER DAY 11/11/23 Unknown History tablet,extended release(part/cryst) (Klor-Con M) trazodone 100 mg tablet 200 mg PO QHS mood 11/11/23 Unknown History levothyroxine 100 mcg tablet 100 mcg PO DAILY 12/09/23 Unknown History Allergy/AdvReac Type Severity Reaction Status Date / Time No Known Allergies Allergy Verified 11/11/23 09:08 Family History Grandfather CAD (coronary artery disease) Father CAD (coronary artery disease) Hx of CABG Surgical History Perivalvular leak of prosthetic heart valve History of appendectomy History of tricuspid valve repair (~07/27/14) History of shoulder surgery History of hernia repair History of mitral valve replacement History of tricuspid valve repair (~07/27/14) History of mitral valve replacement with bioprosthetic valve (07/27/14) Social History Smoking Status: Former smoker how long ago did patient quit smokin months ago alcohol intake: current alcohol intake frequency: holidays/special occasions only substance use type: former substance user Date of last use: 6 years ago, crack/cocaine and heroin caffeine: Yes Type: coffee ROS Constitutional Constitutional: Denies chills, fatigue or fever(s) Eyes Eyes: Denies change in vision Cardiovascular Cardiovascular: Denies chest pain or lightheadedness Respiratory/Chest Respiratory/Chest: Denies cough or shortness of breath at rest Gastrointestinal Gastrointestinal: Denies abdominal pain Musculoskeletal Musculoskeletal: Reports other Details: Posterior head and neck pain noted Neurologic Neurologic: Denies dizziness, focal weakness, headache(s), numbness or paresthesias Vital Signs Vital Signs Vital Signs: 12/08/23 23:26 12/08/23 23:30 12/09/23 00:25 Temperature 98 F Temperature Source Oral Pulse Rate 70 70 Pulse Rate [Lying] Pulse Rate [Sitting (for 1 minute prior to obtaining)] Pulse Rate [Standing (for 1 minute prior to obtaining)] Respiratory Rate 18 16 Respiratory Effort Normal Non-Labored Respiratory Depth Normal Respiratory Pattern Normal Blood Pressure 105/63 117/66 Blood Pressure [Lying] Blood Pressure [Sitting (for 1 minute prior to obtaining)] Blood Pressure [Standing (for 1 minute prior to obtaining)] Blood Pressure Mean 77 83 Blood Pressure Mean [Lying] Blood Pressure Mean [Sitting (for 1 minute prior to obtaining)] Blood Pressure Mean [Standing (for 1 minute prior to obtaining)] Blood Pressure Source Blood Pressure Position Blood Pressure Location Pulse Ox 93 97 Oxygen Delivery Method Room Air Room Air 12/09/23 01:05 12/09/23 02:20 12/09/23 02:30 Temperature 98.2 F 96.8 F L Temperature Source Temporal Pulse Rate 70 71 Pulse Rate [Lying] 70 Pulse Rate [Sitting (for 1 minute prior to obtaining)] 70 Pulse Rate [Standing (for 1 minute prior to obtaining)] 70 Respiratory Rate 16 18 Respiratory Effort Respiratory Depth Respiratory Pattern Blood Pressure 110/67 105/64 Blood Pressure [Lying] 117/59 L Blood Pressure [Sitting (for 1 minute prior to obtaining)] 104/68 Blood Pressure [Standing (for 1 minute prior to obtaining)] 95/65 Blood Pressure Mean 81 77 Blood Pressure Mean [Lying] 78 Blood Pressure Mean [Sitting (for 1 minute prior to obtaining)] 80 Blood Pressure Mean [Standing (for 1 minute prior to obtaining)] 75 Blood Pressure Source Monitor Blood Pressure Position Semi-Fowlers Blood Pressure Location Right Arm Pulse Ox 96 96 Oxygen Delivery Method Room Air Weight Weight: 64.8 kg Body Mass Index (BMI) 21.1 Physical Exam Const alert, no apparent distress and average body habitus Constitutional Narrative: Elderly male, mildly somnolent and appears acutely intoxicated with alcohol, otherwise sitting up fairly comfortably in bed, making appropriate eye contact and answering questions with short appropriate responses, in no acute distress. General Appearance: cooperative and comfortable HEENT hearing grossly normal bilaterally and nasal mucous membranes and turbinates normal HEENT Narrative: Large head bandage in place for posterior scalp hematoma. Eyes PERRL, EOMs intact bilaterally and conjunctivae normal Neck full ROM Chest inspection of chest normal Resp normal respiratory effort, normal air movement, no use of accessory muscles and clear to auscultation bilaterally Cardio regular rate, regular rhythm, no murmurs and peripheral pulses 2+ throughout GI normal to inspection, nondistended, normoactive bowel sounds, soft to palpation, non-tender and non-distended Back/Spine normal ROM Back/Spine Narrative: Mild generalized cervical spine tenderness noted on palpation. Extremity normal to inspection, full ROM and no pedal edema Skin no rashes or lesions noted Neuro moves all extremities and no focal motor deficits Results Lab / Micro Data 12/08/23 23:38 12/08/23 23:38 Labs: Laboratory Results - last 24 hr 12/08/23 23:38: WBC 7.0, RBC 3.50 L, Hgb 11.0 L, Hct 32.7 L, MCV 93.4, MCH 31.4, MCHC 33.6, RDW Std Deviation 50.5 H, RDW Coeff of Luciana 14.7 H, Plt Count 105 L, MPV 11.6, Immature Gran % (Auto) 0.700, Neut % (Auto) 65.2, Lymph % (Auto) 18.8 L, Thomas % (Auto) 11.6 H, Eos % (Auto) 3.0, Baso % (Auto) 0.7, Absolute Neuts (auto) 4.6, Absolute Lymphs (auto) 1.32, Nucleated RBC % 0, PT 47.0 H, INR 5.2 H*, Sodium 136, Potassium 3.7, Chloride 104, Carbon Dioxide 21.0, Anion Gap 11, BUN 18, Creatinine 0.87, Est GFR (MDRD) Af Amer 113, Est GFR (MDRD) Non-Af 93, BUN/Creatinine Ratio 20.8 H, Glucose 106, Calcium 8.1 L 12/09/23 00:21: Ethyl Alcohol 264.0 Imaging Radiology Impression Brain CT 12/08/23 23:30 IMPRESSION: No acute intracranial findings. Electronically Signed: Wilfrido Vance MD at 0:24 EDT , Cervical Spine CT 12/08/23 23:30 IMPRESSION: Stable degenerative changes. No acute fracture of the cervical spine. 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 1. Suspected mechanical fall with posterior scalp laceration and head/neck pain ? Admit under observation status to PCU. PT/OT/case management consulted. Suspect patient had mechanical fall at home due to acute alcohol intoxication and orthostatic hypotension as noted below. Suspect orthostatic hypotension was primarily due to alcohol in conjunction with his extensive list of home medications with several that could cause some degree of sedation and slow heart rate response. Scalp laceration repaired in the ED. CT brain and C-spine negative for acute pathology. Continue home hydrocodone?acetaminophen scheduled for head and neck pain. Notably had echo done recently and had low concern for cardiac etiology of fall, will continue cardiac monitoring but no further cardiac workup needed. 2. Acute alcohol intoxication ? Alcohol level 264 on admit. Unclear if daily alcohol user versus occasional alcohol use. Will start CIWA protocol for now. Thiamine and folate ordered. 3. History of MVR and paroxysmal A-fib on Coumadin with supratherapeutic INR ? Follows with [facility], last office visit on 11/10. INR 5.2 on admit; may be secondary to mild nutritional deficiency with mild liver injury in setting of alcohol use. IV vitamin K 5 mg x 1 given in the ED. Repeat INR ordered for this morning. Will hold home warfarin for now. Holding home beta-dane as noted below. 4. Orthostatic hypotension ? Orthostatic vitals positive in the ED with significant blood pressure drop from sitting to standing. Suspect multifactorial from alcohol intoxication, medications and some degree of volume depletion. Will give gentle IV volume resuscitation and recheck orthostatic levels in the morning. Holding home Toprol, Lasix and spironolactone for now. Chronic medical conditions: ? Hypertension, hyperlipidemia, history of SSS s/p dual-chamber pacemaker placement, history of tricuspid valve repair: Continue home aspirin and statin. Holding home blood pressure medications as noted above. ? Chronic anemia: Hemoglobin 11.0 on admit, at baseline. ? Chronic thrombocytopenia: Platelets 105 on admit, at baseline. ? Tobacco abuse: Continue home bupropion. ? Anxiety/depression/chronic pain syndrome: Stable. Continue home citalopram and trazodone at night. Will hold home doxepin for now given orthostatic hypotension and concern for some degree of sedation on admit as noted above. Continue home scheduled hydrocodone?acetaminophen. ? Hypothyroidism: Continue home Synthroid. ? BPH with obstructive symptoms: Continue home tamsulosin. DVT prophylaxis: Not indicated, holding home warfarin given supratherapeutic INR CODE STATUS: Full code, unverified Expected disposition: Home, 1 to 2 days Total clinical time spent by myself addressing the patient's medical issues, reviewing all the data, and collaborating with patient's care team: 75 minutes. Charges/Coding Visit Charges Inpatient E&M: 80984 Init Hosp L3
[2023-12-09] MEDS: HYDROmorphone 0.5 MG/0.5 ML SYRINGE IV (03:40)
[2023-12-09] MEDS: 0.9% Saline Lock 10 ML Syringe IV (03:43)
[2023-12-09] MEDS: Levothyroxine 100 MCG Tablet PO (05:58)
[2023-12-09 06:09] LABS: Hemoglobin 9.1 g/dL (13.0-16.5); Mean Corp Hgb Conc 33.7 g/dL (32-36); Mean Corpuscular Hgb 31.5 pg (27.0-32.0); Mean Corpuscular Volume 93.4 fL (80-94); Mean Platelet Vol. 12.6 fl (6.2-12.0); POSITIVE COUNT YES; Platelet Count 80 K/mm3 (150-450); RBC Distribution Width CV 14.8 % (11.6-14.6); Red Blood Count 2.89 M/mm3 (4.6-6.2); White Blood Count 8.4 K/mm3 (4.4-11.0)
[2023-12-09 06:24] LABS: International Normalized Ratio 2.6
[2023-12-09 06:35] LABS: AST(SGOT) 53 U/L (15-37); Alanine Aminotransfer ALT/SGPT 34 U/L (16-61); Albumin, Serum 2.9 g/dL (3.2-5.0); Alkaline Phosphatase 95 U/L (45-117); Anion Gap 6 (5-15); BUN 14 mg/dL (7-18); BUN/Creat Ratio 19.7 RATIO (10-20); Calcium,Total 7.6 mg/dL (8.5-10.1); Chloride 107 mmol/L (98-107); Creatinine, Serum 0.71 mg/dL (0.70-1.30); EST Glomerular Filtration Rate 117 mL/min (>60); Est Glom Filt Rate - Afr Amer 141 mL/min (>60); Globulin 2.8 g/dL (2.2-4.2); Glucose 86 mg/dL (74-106); Potassium 3.9 mmol/L (3.5-5.1); Protein, Total 5.7 g/dL (6.4-8.2); Sodium Level 136 mmol/L (136-145)
[2023-12-09 06:54] LABS: AST(SGOT) 54 U/L (15-37); Alanine Aminotransfer ALT/SGPT 33 U/L (16-61); Albumin, Serum 2.9 g/dL (3.2-5.0); Alkaline Phosphatase 92 U/L (45-117); Bilirubin, Direct 0.28 mg/dL (0.00-0.30); Globulin 2.7 g/dL (2.2-4.2); Protein, Total 5.6 g/dL (6.4-8.2)
[2023-12-09 07:36] LABS: Vitamin B12 201 pg/mL (211-911)
--- NOTE | 2023-12-09 08:58 | PN.HOSP_ITS ---
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 (12/09/23) Objective Data Objective Data Vital Signs: Vital Signs Temp Pulse Resp BP Pulse Ox O2 Del Method 96.8 F L 70 18 117/59 L 96 Room Air 12/09/23 02:20 12/09/23 07:00 12/09/23 02:20 12/09/23 02:30 12/09/23 02:20 12/09/23 07:45 Oxygen Delivery Method Room Air Weight: 142 lb 13.753 oz Body Mass Index (BMI) 21.1 Intake & Output: Intake and Output for Last 24 Hours 12/07/23 12/08/23 12/09/23 23:59 23:59 23:59 Intake Total 540 / 540 415.5 / 415.5 Balance 540 / 540 415.5 / 415.5 Lab / Micro Data 12/09/23 05:35 12/09/23 05:35 Labs: Laboratory Results - last 24 hr 12/08/23 23:38: WBC 7.0, RBC 3.50 L, Hgb 11.0 L, Hct 32.7 L, MCV 93.4, MCH 31.4, MCHC 33.6, RDW Std Deviation 50.5 H, RDW Coeff of Luciana 14.7 H, Plt Count 105 L, MPV 11.6, Immature Gran % (Auto) 0.700, Neut % (Auto) 65.2, Lymph % (Auto) 18.8 L, [place] % (Auto) 11.6 H, Eos % (Auto) 3.0, Baso % (Auto) 0.7, Absolute Neuts (auto) 4.6, Absolute Lymphs (auto) 1.32, Nucleated RBC % 0, PT 47.0 H, INR 5.2 H*, Sodium 136, Potassium 3.7, Chloride 104, Carbon Dioxide 21.0, Anion Gap 11, BUN 18, Creatinine 0.87, Est GFR (MDRD) Af Amer 113, Est GFR (MDRD) Non-Af 93, B UN/Creatinine Ratio 20.8 H, Glucose 106, Calcium 8.1 L 12/09/23 00:21: Ethyl Alcohol 264.0 12/09/23 05:35: WBC 8.4, RBC 2.89 L, Hgb 9.1 L, Hct 27.0 L, MCV 93.4, MCH 31.5, MCHC 33.7, RDW Std Deviation 51.0 H, RDW Coeff of Luciana 14.8 H, Plt Count 80 L, M PV 12.6 H, PT 28.0 H, INR 2.6, Sodium 136, Potassium 3.9, Chloride 107, Carbon Dioxide 23.0, Anion Gap 6, BUN 14, Creatinine 0.71, Estim Creat Clear Calc 81.00, Est GFR (MDRD) Af Amer 141, Est GFR (MDRD) Non-Af 117, BUN/Creatinine Ratio 19.7, Glucose 86, Calcium 7.6 L, Total Bilirubin 0.70 12/09/23 05:35: Total Bilirubin 0.80, Direct Bilirubin 0.28, AST 54 H 12/09/23 05:35: AST 53 H, ALT 33 12/09/23 05:35: ALT 34, Alkaline Phosphatase 92 12/09/23 05:35: Alkaline Phosphatase 95, Total Protein 5.6 L 12/09/23 05:35: Total Protein 5.7 L, Albumin 2.9 L 12/09/23 05:35: Albumin 2.9 L, Globulin 2.7 12/09/23 05:35: Globulin 2.8, Albumin/Globulin Ratio 1.0, Vitamin B12 201 L, Folate 17.20 Radiography Diagnostic Testing: Radiology Impression Brain CT 12/08/23 23:30 IMPRESSION: No acute intracranial findings. Electronically Signed: Wilfrido Vance MD at 0:24 EDT Reading Location ID and State: [facility] / [place] Tel , Service support , Cervical Spine CT 12/08/23 23:30 IMPRESSION: Stable degenerative changes. No acute fracture of the cervical spine. 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 Patient drinks alcohol, vodka and has been drinking the night. Complain of head and neck pain. On warfarin for history of A-fib. 1. Suspected mechanical fall with posterior scalp laceration and head/neck pain ? Admit under observation status to PCU. PT/OT/case management consulted. Suspect patient had mechanical fall at home due to acute alcohol intoxication and orthostatic hypotension as noted below. Suspect orthostatic hypotension was primarily due to alcohol in conjunction with his extensive list of home medications with several that could cause some degree of sedation and slow heart rate response. Scalp laceration repaired in the ED. CT brain and C-spine negative for acute pathology. Continue home hydrocodone?acetaminophen scheduled for head and neck pain. Notably had echo done recently and had low concern for cardiac etiology of fall, will continue cardiac monitoring but no further cardiac workup needed. 2. Acute alcohol intoxication ? Alcohol level 264 on admit. Unclear if daily alcohol user versus occasional alcohol use. Will start CIWA protocol for now. Thiamine and folate ordered. 3. History of MVR and paroxysmal A-fib on Coumadin with supratherapeutic INR ? Follows with [facility], last office visit on 11/10. INR 5.2 on admit; may be secondary to mild nutritional deficiency with mild liver injury in setting of alcohol use. IV vitamin K 5 mg x 1 given in the ED. Repeat INR ordered for this morning. Will hold home warfarin for now. Holding home beta- dane as noted below. 4. Orthostatic hypotension ? Orthostatic vitals positive in the ED with significant blood pressure drop from sitting to standing. Suspect multifactorial from alcohol intoxication, medications and some degree of volume depletion. Will give gentle IV volume resuscitation and recheck orthostatic levels in the morning. Holding home Toprol, Lasix and spironolactone for now. Chronic medical conditions: ? Hypertension, hyperlipidemia, history of SSS s/p dual-chamber pacemaker placement, history of tricuspid valve repair: Continue home aspirin and statin. Holding home blood pressure medications as noted above. ? Chronic anemia: Hemoglobin 11.0 on admit, at baseline. ? Chronic thrombocytopenia: Platelets 105 on admit, at baseline. ? Tobacco abuse: Continue home bupropion. ? Anxiety/depression/chronic pain syndrome: Stable. Continue home citalopram and trazodone at night. Will hold home doxepin for now given orthostatic hypotension and concern for some degree of sedation on admit as noted above. Continue home scheduled hydrocodone?acetaminophen. ? Hypothyroidism: Continue home Synthroid. ? BPH with obstructive symptoms: Continue home tamsulosin. DVT prophylaxis: Not indicated, holding home warfarin given supratherapeutic INR CODE STATUS: Full code, unverified Expected disposition: Home, 1 to 2 days Laboratory Results 12/08/23 23:38: WBC 7.0, RBC 3.50 L, Hgb 11.0 L, Hct 32.7 L, MCV 93.4, MCH 31.4, MCHC 33.6, RDW Std Deviation 50.5 H, RDW Coeff of Luciana 14.7 H, Plt Count 105 L, MPV 11.6, Immature Gran % (Auto) 0.700, Neut % (Auto) 65.2, Lymph % (Auto) 18.8 L, Cam[place] % (Auto) 11.6 H, Eos % (Auto) 3.0, Baso % (Auto) 0.7, Absolute Neuts (auto) 4.6, Absolute Lymphs (auto) 1.32, Nucleated RBC % 0, PT 47.0 H, INR 5.2 H*, Sodium 136, Potassium 3.7, Chloride 104, Carbon Dioxide 21.0, Anion Gap 11, BUN 18, Creatinine 0.87, Est GFR (MDRD) Af Amer 113, Est GFR (MDRD) Non-Af 93, B UN/Creatinine Ratio 20.8 H, Glucose 106, Calcium 8.1 L 12/09/23 00:21: Ethyl Alcohol 264.0 12/09/23 05:35: WBC 8.4, RBC 2.89 L, Hgb 9.1 L, Hct 27.0 L, MCV 93.4, MCH 31.5, MCHC 33.7, RDW Std Deviation 51.0 H, RDW Coeff of Luciana 14.8 H, Plt Count 80 L, M PV 12.6 H, PT 28.0 H, INR 2.6, Sodium 136, Potassium 3.9, Chloride 107, Carbon Dioxide 23.0, Anion Gap 6, BUN 14, Creatinine 0.71, Estim Creat Clear Calc 81.00, Est GFR (MDRD) Af Amer 141, Est GFR (MDRD) Non-Af 117, BUN/Creatinine Ratio 19.7, Glucose 86, Calcium 7.6 L, Total Bilirubin 0.70 12/09/23 05:35: Total Bilirubin 0.80, Direct Bilirubin 0.28, AST 54 H 12/09/23 05:35: AST 53 H, ALT 33 12/09/23 05:35: ALT 34, Alkaline Phosphatase 92 12/09/23 05:35: Alkaline Phosphatase 95, Total Protein 5.6 L 12/09/23 05:35: Total Protein 5.7 L, Albumin 2.9 L 12/09/23 05:35: Albumin 2.9 L, Globulin 2.7 12/09/23 05:35: Globulin 2.8, Albumin/Globulin Ratio 1.0, Vitamin B12 201 L, Folate 17.20
[2023-12-09] MEDS: HYDROcodone Bitartrate/Apap 5/325 Tablet PO (09:32)
[2023-12-09] MEDS: Citalopram 20 MG Tablet PO (09:33)
[2023-12-09] MEDS: Aspirin E.C. 81 MG Tablet PO (09:33)
[2023-12-09] MEDS: Tamsulosin HCl 0.4 MG Capsule PO (09:33)
[2023-12-09] MEDS: Folic Acid 1 MG Tablet PO (09:33)
[2023-12-09] MEDS: buPROPion (SR) 150 MG Tablet.SA PO (09:34)
[2023-12-09] MEDS: Cholecalciferol (VIT D3) 25 MCG TABLET (1,000 UNITS) PO (09:34)
--- NOTE | 2023-12-09 11:24 | DCINST_ITS ---
Discharge Instructions Diet Discharge Diet: No restrictions Activity Discharge Activity: Return to Normal Activity Weight Bearing Status: Weight bearing as tolerated Dressing / Incision Call your doctor if you observe: Fever of 101 or Higher, Coldness, Increased Pain, Numbness or Tingling, Change in Color, Inability to urinate, Inability to have a bowel movement, Shortness of breath, Dizziness, Fainting spells, Swelling in the ankles, Chest pain, Prolonged hiccupping, Increased palpitations (irregular heartbeat) and Calf discomfort Follow Up Care When: IN 2 WEEKS Test Results: Test results from this visit will be discussed in further detail at your follow- up appointment, if applicable. Discharge Plan Admission Admit Date/Time: 12/09/23 01:18 Primary Reason for Your Visit: Fall, head laceration. Alcohol Attending Provider: Reese Ludwig Primary Care Provider: Fracisco Carvalho Chi Consulting Providers: Nicolas Cox Discharge Orders/Prescriptions Prescriptions: New thiamine HCl (vitamin B1) 100 mg Tablet 100 mg PO DAILYCM Qty: 0 0RF folic acid 1 mg Tablet 1 mg PO DAILY@0800 Qty: 0 0RF Continued albuterol sulfate [ProAir HFA] 90 mcg/actuation HFA aerosol inhaler 2 puff INHALATION Q4H PRN (Reason: SOB) trazodone 100 mg tablet 200 mg PO QHS bupropion HCl (smoking deter) 150 mg tablet extended release 12 hr 150 mg PO BID aspirin [Adult Aspirin Regimen] 81 mg tablet,delayed release (DR/EC) 81 mg PO DAILY cholecalciferol (vitamin D3) 25 mcg (1,000 unit) tablet 25 mcg PO DAILY atorvastatin 20 mg tablet 20 mg PO DAILY warfarin 2.5 mg tablet 2.5 mg PO DAILY Qty: 90 3RF Protocol: Dose Management Condition: Thursday Dose/Route: 2.5 mg Instruction: 1 x 2.5 mg tablet Condition: Thursday Dose/Route: 2.5 mg Instruction: 1 x 2.5 mg tablet Condition: Thursday Dose/Route: 2.5 mg Instruction: 1 x 2.5 mg tablet Condition: Thursday Dose/Route: 1.25 mg Instruction: 0.5 x 2.5 mg tablets Condition: Dose/Route: 1.25 mg Instruction: 0.5 x 2.5 mg tablets Condition: Thursday Dose/Route: 1.25 mg Instruction: 0.5 x 2.5 mg tablets Condition: Thursday Dose/Route: 2.5 mg Instruction: 1 x 2.5 mg tablet Protocol Text: Adjustment Start Date: Thursday12/02/23 INR Value: 3.2 INR Date: 12/02/23 Recheck Date: 12/16/23 citalopram 20 mg tablet 20 mg PO QDAY potassium chloride [Klor-Con M20] 20 mEq tablet,ER particles/crystals 20 meq PO Q OTHER DAY tamsulosin 0.4 mg capsule 0.4 mg PO BID Patient Comments: Prostate hydrocodone-acetaminophen 5-325 mg tablet 1 tab PO 4X/DAY doxepin 150 mg Capsule 150 mg PO DAILY levothyroxine 100 mcg tablet 100 mcg PO DAILY tizanidine 4 mg tablet 4 mg PO QHS furosemide [Lasix] 40 mg tablet 40 mg PO DAILY Qty: 90 4RF Jardiance 10 mg tablet 10 mg PO DAILY Qty: 90 3RF spironolactone 25 mg tablet 25 mg PO DAILY Qty: 30 11RF metoprolol succinate 50 mg tablet extended release 24 hr 50 mg PO DAILY Qty: 90 3RF Referrals / Follow Up: Fracisco Carvalho Chi, MD [Primary Care Provider] - Within 1 Month Disposition Disposition (needs filled in before D/C Order can be placed): Home, Self Care
[2023-12-09] MEDS: Thiamine Hydrochloride 100 MG Tablet PO (11:32)
--- NOTE | 2023-12-09 12:28 | DS.PCM_ITS ---
Providers Date of Admission: 12/09/23 Date of Discharge: 12/09/23 Primary Care Physician: Dr. Fracisco Carvalho MD Reason For Visit: SYNCOPE, ALCOHOL INTOXICATION, ELEVATED INR Diagnosis Discharge Diagnosis (1) Laceration of scalp: Status: Acute Code(s): S01.01XA - Laceration without foreign body of scalp, initial encounter (2) Alcohol intoxication: Status: Acute Code(s): F10.929 - Alcohol use, unspecified with intoxication, unspecified (3) Supratherapeutic INR: Status: Acute Code(s): R79.1 - Abnormal coagulation profile (4) [facility] current use of anticoagulant: Status: Chronic Code(s): Z79.01 - [facility] (current) use of anticoagulants (5) Fall: Status: Acute Code(s): W19.XXXA - Unspecified fall, initial encounter Plan Patient is a 68-year-old male who presented [facility] ED on 12/09/2023 with head and neck pain after a fall at home. Patient drinks alcohol, vodka and has been drinking the night. Complain of head and neck pain. On warfarin for history of A-fib. 1. Suspected mechanical fall with posterior scalp laceration and head/neck pain: Patient was admitted under observational status in PCU. PT/OT/case management consulted. Orthostatic check at 2:30 AM shows decrease of 20 mm systolic pressure from lying to standing patient without much change in heart rate. Patient might have fall from orthostatic hypotension which might have got aggravated from alcoho and it causes vasodilation in conjunction with his extensive list of home medications with several that could cause some degree of sedation and slow heart rate response. Scalp laceration repaired in the ED. CT brain and C-spine negative for acute pathology. Continue home hydrocodone?acetaminophen scheduled for head and neck pain. Notably had echo done recently and had low concern for cardiac etiology of fall. Sinus rhythm on ekg monitor tech 2. Acute alcohol intoxication ? Alcohol level 264 on admit. Claims he drinks 2-3 times a month but probably drinks more. On thiamine and folic acid. Patient not having any acute alcohol withdrawal symptoms. Patient has chronic alcoholic hepatitis with elevated AST more than ALT. Thrombocytopenia 80,000 and hypoalbuminemia probably from chronic alcohol use. Patient also on warfarin. Advised quitting alcohol. 3. History of MVR and paroxysmal A-fib on Coumadin with supratherapeutic INR ? [facility] last office visit on 11/10. INR 5.2 on admit; may be secondary to mild nutritional deficiency with mild liver injury in setting of alcohol use. IV vitamin K 5 mg x 1 given in the ED. INR is therapeutic. Continue home warfarin dose. Continue beta-dane. Patient also has thrombocytopenia 80,000. It was 1 67,000. Hold baby aspirin for 1 week follow with PCP. In my opinion baby aspirin can be discontinued as patient already on warfarin. below. 4. Orthostatic hypotension ? Orthostatic vitals positive in the ED with significant blood pressure drop from sitting to standing. Suspect multifactorial from alcohol intoxication, medications and some degree of volume depletion. Will give gentle IV volume resuscitation and recheck orthostatic levels in the morning. Holding home Toprol, Lasix and spironolactone for now. Chronic medical conditions: ? Hypertension, hyperlipidemia, history of SSS s/p dual-chamber pacemaker placement, history of tricuspid valve repair: Continue home aspirin and statin. Holding home blood pressure medications as noted above. ? Chronic anemia: Hemoglobin 11.0 on admit, at baseline. ? Chronic thrombocytopenia: Platelets 105 on admit, at baseline. ? Tobacco abuse: Continue home bupropion. ? Anxiety/depression/chronic pain syndrome: Stable. Continue home citalopram and trazodone at night. Will hold home doxepin for now given orthostatic hypotension and concern for some degree of sedation on admit as noted above. Continue home scheduled hydrocodone?acetaminophen. ? Hypothyroidism: Continue home Synthroid. ? BPH with obstructive symptoms: Continue home tamsulosin. Patient recovered well. Patient anxious to go home and asking for discharge in the morning around. Discussed with the nursing staff patient walked good with no disequilibrium or near fall and nursing staff okay for discharge Discharge medication reconciliation done. Discharge follow-up instructions completed. Discharge process discussed with the patient and all questions were answered to patient's satisfaction. Follow with PCP in 1 to 2 weeks Total time spent, exact 35 minutes on discharge meds reconciliation, examination, coordination of care with nurses and ancillary staff, review of imaging and blood test and discussion with the patient on follow-up instructions. Laboratory Results 12/08/23 23:38: WBC 7.0, RBC 3.50 L, Hgb 11.0 L, Hct 32.7 L, MCV 93.4, MCH 31.4, MCHC 33.6, RDW Std Deviation 50.5 H, RDW Coeff of Luciana 14.7 H, Plt Count 105 L, MPV 11.6, Immature Gran % (Auto) 0.700, Neut % (Auto) 65.2, Lymph % (Auto) 18.8 L, Tyrrell % (Auto) 11.6 H, Eos % (Auto) 3.0, Baso % (Auto) 0.7, Absolute Neuts (auto) 4.6, Absolute Lymphs (auto) 1.32, Nucleated RBC % 0, PT 47.0 H, INR 5.2 H*, Sodium 136, Potassium 3.7, Chloride 104, Carbon Dioxide 21.0, Anion Gap 11, BUN 18, Creatinine 0.87, Est GFR (MDRD) Af Amer 113, Est GFR (MDRD) Non-Af 93, B UN/Creatinine Ratio 20.8 H, Glucose 106, Calcium 8.1 L 12/09/23 00:21: Ethyl Alcohol 264.0 12/09/23 05:35: WBC 8.4, RBC 2.89 L, Hgb 9.1 L, Hct 27.0 L, MCV 93.4, MCH 31.5, MCHC 33.7, RDW Std Deviation 51.0 H, RDW Coeff of Luciana 14.8 H, Plt Count 80 L, M PV 12.6 H, PT 28.0 H, INR 2.6, Sodium 136, Potassium 3.9, Chloride 107, Carbon Dioxide 23.0, Anion Gap 6, BUN 14, Creatinine 0.71, Estim Creat Clear Calc 81.00, Est GFR (MDRD) Af Amer 141, Est GFR (MDRD) Non-Af 117, BUN/Creatinine Ratio 19.7, Glucose 86, Calcium 7.6 L, Total Bilirubin 0.70 12/09/23 05:35: Total Bilirubin 0.80, Direct Bilirubin 0.28, AST 54 H 12/09/23 05:35: AST 53 H, ALT 33 12/09/23 05:35: ALT 34, Alkaline Phosphatase 92 12/09/23 05:35: Alkaline Phosphatase 95, Total Protein 5.6 L 12/09/23 05:35: Total Protein 5.7 L, Albumin 2.9 L 12/09/23 05:35: Albumin 2.9 L, Globulin 2.7 12/09/23 05:35: Globulin 2.8, Albumin/Globulin Ratio 1.0, Vitamin B12 201 L, Folate 17.20 Medications at Discharge Home Medications bupropion HCl (smoking deter) 150 mg tablet,12 hr sustained-release(smoking deterrent) 150 mg PO BID SMOKING 09/09/17 tamsulosin 0.4 mg capsule 0.4 mg PO BID urinary tract 09/08/18 hydrocodone-acetaminophen 5-325mg 5mg-325mg 1 tab PO 4X/DAY PAIN 06/05/21 aspirin 81 mg tablet,delayed release (Adult Aspirin Regimen) 81 mg PO DAILY blood thinner 07/25/21 doxepin 150 mg capsule 150 mg PO DAILY depression 10/01/21 albuterol sulfate 90 mcg/actuation aerosol inhaler (ProAir HFA) 2 puff inhalation Q4H PRN SOB 01/31/22 cholecalciferol (vitamin D3) 25 mcg (1,000 unit) tablet 25 mcg PO DAILY 01/31/22 tizanidine 4 mg tablet 4 mg PO QHS muscle spasm 01/31/22 atorvastatin 20 mg tablet 20 mg PO DAILY 08/12/22 warfarin 2.5 mg tablet 2.5 mg PO DAILY BLOOD THINNER #90 tabs 08/12/22 furosemide 40 mg tablet (Lasix) 40 mg PO DAILY #90 tabs 03/19/23 empagliflozin 10 mg tablet (Jardiance) 10 mg PO DAILY #90 tabs 06/01/23 spironolactone 25 mg tablet 25 mg PO DAILY #30 tabs 06/01/23 metoprolol succinate 50 mg tablet,extended release 24 hr 50 mg PO DAILY this is a dose increase #90 tabs 11/02/23 citalopram 20 mg tablet 20 mg PO QDAY 11/11/23 potassium chloride 20 mEq tablet,extended release(part/cryst) (Klor-Con M) 20 meq PO Q OTHER DAY 11/11/23 trazodone 100 mg tablet 200 mg PO QHS mood 11/11/23 folic acid 1 mg tablet 1 mg PO DAILY@0800 #0 tabs 12/09/23 levothyroxine 100 mcg tablet 100 mcg PO DAILY 12/09/23 thiamine HCl (vitamin B1) 100 mg tablet 100 mg PO DAILYCM #0 tabs 12/09/23 Physical Exam Narrative Seen and examined. Patient claims that he drinks occasionally about 2-3 times in a month but seems he drinks more. AST is more than ALT. Albumin 2.9. Platelet count 80,000. Patient also on warfarin. Physical exam General: Alert, Oriented x3, Cooperative HEENT: Atraumatic, PERRLA, EOMI, Normocephalic Oral: No Gingival or Mucosal Lesions/ Ulcerations Neck: Supple, No JVD, Negative Carotid Bruits Chest wall/Lungs: Air entry diminished in bilateral lung bases. No crepitation/rhonchi Cardiovascular: Regular rate, Regular Rhythm, Normal S1, Normal S2, No M/G/R Abdomen: Bowel Sounds Present, Soft, Non Tender, Non-Distended : No dysuria. No renal angle tenderness. No suprapubic tenderness. Extremities: No edema, Capillary Refill Less than 3 Seconds Skin: Head laceration., Posterior scalp hematoma. Required 3 sutures. Has bandage around head. Musculoskeletal: No Tenderness to Palpation of Joints or Extremities Neurological: Cranial nerves II-XII grossly intact, DTR 2+/4. No acute focal neurological deficit. Psych/Mental Status: Normal Affect, Appropriate. Weight / BMI Weight Weight: 142 lb 13.753 oz Body Mass Index (BMI) 21.1 ABG / Lab / Microbiology Data 12/09/23 05:35 12/09/23 05:35 Laboratory: Laboratory Results - last 24 hr 12/08/23 23:38: WBC 7.0, RBC 3.50 L, Hgb 11.0 L, Hct 32.7 L, MCV 93.4, MCH 31.4, MCHC 33.6, RDW Std Deviation 50.5 H, RDW Coeff of Luciana 14.7 H, Plt Count 105 L, MPV 11.6, Immature Gran % (Auto) 0.700, Neut % (Auto) 65.2, Lymph % (Auto) 18.8 L, Tyrrell % (Auto) 11.6 H, Eos % (Auto) 3.0, Baso % (Auto) 0.7, Absolute Neuts (auto) 4.6, Absolute Lymphs (auto) 1.32, Nucleated RBC % 0, PT 47.0 H, INR 5.2 H*, Sodium 136, Potassium 3.7, Chloride 104, Carbon Dioxide 21.0, Anion Gap 11, BUN 18, Creatinine 0.87, Est GFR (MDRD) Af Amer 113, Est GFR (MDRD) Non-Af 93, B UN/Creatinine Ratio 20.8 H, Glucose 106, Calcium 8.1 L 12/09/23 00:21: Ethyl Alcohol 264.0 12/09/23 05:35: WBC 8.4, RBC 2.89 L, Hgb 9.1 L, Hct 27.0 L, MCV 93.4, MCH 31.5, MCHC 33.7, RDW Std Deviation 51.0 H, RDW Coeff of Luciana 14.8 H, Plt Count 80 L, M PV 12.6 H, PT 28.0 H, INR 2.6, Sodium 136, Potassium 3.9, Chloride 107, Carbon Dioxide 23.0, Anion Gap 6, BUN 14, Creatinine 0.71, Estim Creat Clear Calc 81.00, Est GFR (MDRD) Af Amer 141, Est GFR (MDRD) Non-Af 117, BUN/Creatinine Ratio 19.7, Glucose 86, Calcium 7.6 L, Total Bilirubin 0.70 12/09/23 05:35: Total Bilirubin 0.80, Direct Bilirubin 0.28, AST 54 H 12/09/23 05:35: AST 53 H, ALT 33 12/09/23 05:35: ALT 34, Alkaline Phosphatase 92 12/09/23 05:35: Alkaline Phosphatase 95, Total Protein 5.6 L 12/09/23 05:35: Total Protein 5.7 L, Albumin 2.9 L 12/09/23 05:35: Albumin 2.9 L, Globulin 2.7 12/09/23 05:35: Globulin 2.8, Albumin/Globulin Ratio 1.0, Vitamin B12 201 L, Folate 17.20 Radiography Diagnostic Testing: Radiology Impression Brain CT 12/08/23 23:30 IMPRESSION: No acute intracranial findings. Electronically Signed: Wilfrido Vance MD at 0:24 EDT , Cervical Spine CT 12/08/23 23:30 IMPRESSION: Stable degenerative changes. No acute fracture of the cervical spine. Electronically Signed: Wilfrido Vance MD at 0:27 EDT Reading Location ID and State: [facility] / [place] Tel , Service support , D/C Instructions Discharge Diet: No restrictions Weight Bearing Status: Weight bearing as tolerated Call your doctor if you observe: Fever of 101 or Higher, Coldness, Increased Pain, Numbness or Tingling, Change in Color, Inability to urinate, Inability to have a bowel movement, Shortness of breath, Dizziness, Fainting spells, Swelling in the ankles, Chest pain, Prolonged hiccupping, Increased palpitations (irregular heartbeat) and Calf discomfort When: IN 2 WEEKS Meaningful Use Info Meaningful Use Meaningful Use Diagnoses (Choose all that apply): None applicable Ischemic Stroke Statin Dosing Therapy Reference: STATIN DOSE THERAPY REFERENCE: * Patients > 75 years receive moderate or high dose statin therapy. * Patients 75 years or YOUNGER should receive HIGH intensity statin dose unless contraindicated. You will be required to document reason for non-treatment if statin daily dose does not meet guidelines. HIGH DOSE STATIN THERAPY DAILY Atorvastatin > than or = to 40 mg Rosuvastatin > than or = to 20 mg Amlodipine + Atorvastatin > than or = to 2.5/40 mg Ezetimibe + Simvastatin 10/80 mg Simvastatin 80mg Discharge Plan Admission Admit Date/Time: 12/09/23 01:18 Primary Reason for Your Visit: Fall, head laceration. Alcohol Attending Provider: Reese Ludwig Primary Care Provider: Fracisco Carvalho [employer] Providers: Nicolas Cox Discharge Orders/Prescriptions Prescriptions: New thiamine HCl (vitamin B1) 100 mg Tablet 100 mg PO DAILYCM Qty: 0 0RF folic acid 1 mg Tablet 1 mg PO DAILY@0800 Qty: 0 0RF Continued albuterol sulfate [ProAir HFA] 90 mcg/actuation HFA aerosol inhaler 2 puff INHALATION Q4H PRN (Reason: SOB) trazodone 100 mg tablet 200 mg PO QHS bupropion HCl (smoking deter) 150 mg tablet extended release 12 hr 150 mg PO BID cholecalciferol (vitamin D3) 25 mcg (1,000 unit) tablet 25 mcg PO DAILY atorvastatin 20 mg tablet 20 mg PO DAILY warfarin 2.5 mg tablet 2.5 mg PO DAILY Qty: 90 3RF Protocol: Dose Management Condition: Thursday Dose/Route: 2.5 mg Instruction: 1 x 2.5 mg tablet Condition: Thursday Dose/Route: 2.5 mg Instruction: 1 x 2.5 mg tablet Condition: Thursday Dose/Route: 2.5 mg Instruction: 1 x 2.5 mg tablet Condition: Thursday Dose/Route: 1.25 mg Instruction: 0.5 x 2.5 mg tablets Condition: Dose/Route: 1.25 mg Instruction: 0.5 x 2.5 mg tablets Condition: Thursday Dose/Route: 1.25 mg Instruction: 0.5 x 2.5 mg tablets Condition: Thursday Dose/Route: 2.5 mg Instruction: 1 x 2.5 mg tablet Protocol Text: Adjustment Start Date: Thursday12/02/23 INR Value: 3.2 INR Date: 12/02/23 Recheck Date: 12/16/23 citalopram 20 mg tablet 20 mg PO QDAY potassium chloride [Klor-Con M20] 20 mEq tablet,ER particles/crystals 20 meq PO Q OTHER DAY tamsulosin 0.4 mg capsule 0.4 mg PO BID Patient Comments: Prostate hydrocodone-acetaminophen 5-325 mg tablet 1 tab PO 4X/DAY doxepin 150 mg Capsule 150 mg PO DAILY levothyroxine 100 mcg tablet 100 mcg PO DAILY tizanidine 4 mg tablet 4 mg PO QHS furosemide [Lasix] 40 mg tablet 40 mg PO DAILY Qty: 90 4RF Jardiance 10 mg tablet 10 mg PO DAILY Qty: 90 3RF spironolactone 25 mg tablet 25 mg PO DAILY Qty: 30 11RF metoprolol succinate 50 mg tablet extended release 24 hr 50 mg PO DAILY Qty: 90 3RF Held aspirin [Adult Aspirin Regimen] 81 mg tablet,delayed release (DR/EC) 81 mg PO DAILY Hold Instructions: Hold for 1 week as patient has thrombocytopenia. Follow with PCP. Referrals / Follow Up: Fracisco Carvalho Chi, MD [Primary Care Provider] - Within 1 Month Disposition Disposition (needs filled in before D/C Order can be placed): Home, Self Care Charges/Coding Visit Charges Inpatient E&M: 60348 Disch Hosp >30min
== END 2023-12-09 14:15 | disposition home or self-care (01) ==
LOC: ED 12-09 01:20 → PCU 12-09 01:44
PROVIDERS: Admitting Provider Hospitalist; Emergency Provider Emergency Medicine; PCP Family Medicine Geriatric Medicine; Visit Provider Internal Medicine
DX: S01.01XA Laceration without foreign body of scalp, initial encounter (principal); I48.0 Paroxysmal atrial fibrillation; F10.129 Alcohol abuse with intoxication, unspecified; F32.A Depression, unspecified; E78.00 Pure hypercholesterolemia, unspecified; G89.4 Chronic pain syndrome; F41.9 Anxiety disorder, unspecified; Z87.891 Personal history of nicotine dependence; D64.9 Anemia, unspecified; Z79.01 Long term (current) use of anticoagulants; R79.1 Abnormal coagulation profile; I10 Essential (primary) hypertension; W19.XXXA Unspecified fall, initial encounter; Z79.82 Long term (current) use of aspirin; E03.9 Hypothyroidism, unspecified; Z79.899 Other long term (current) drug therapy; Z79.890 Hormone replacement therapy; Z86.718 Personal history of other venous thrombosis and embolism; Y90.8 Blood alcohol level of 240 mg/100 ml or more; N40.1 Benign prostatic hyperplasia with lower urinary tract symptoms; N13.8 Other obstructive and reflux uropathy; D69.6 Thrombocytopenia, unspecified; Z23 Encounter for immunization
CPT/HCPCS: 12004; 36415; 70450; 72125; 80048; 80053; 80076; 82077; 82607; 82746; 85025; 85027; 85610; 90715; 93005; 96361; 96365; 96375; 99221; 99285; 99406; J7030; A4216; G0378; J3490

== ENCOUNTER → 2023-12-08 | Outpatient (CLI) | payer MEDICARE, BC, SELFPAY ==
[2023-12-08 11:45] LABS: Amphetamine Urine VISTA NEGATIVE (<1000 ng/mL); Barbiturate Urine VISTA NEGATIVE (< 200 ng/mL); Benzodiazepine Urine VISTA NEGATIVE (< 200 ng/mL); Cocaine Urine VISTA NEGATIVE (< 300 ng/mL); Ecstacy Urine VISTA POSITIVE (< 500 ng/mL); Methadone Urine VISTA NEGATIVE (< 300 ng/mL); PCP Urine VISTA NEGATIVE (< 25 ng/mL); THC Urine VISTA NEGATIVE (< 50 ng/mL); Vista UDS pH Range 5
== END | disposition home or self-care (01) ==
LOC: LAB 09:53
PROVIDERS: PCP Family Medicine Geriatric Medicine; Visit Provider Anesthesiology Pain Medicine
DX: F11.20 Opioid dependence, uncomplicated (principal)
CPT/HCPCS: 80307

== ENCOUNTER 2024-01-01 08:29 | Outpatient (RCR) | payer MEDICARE, BC, SELFPAY ==
[2023-12-16 20:28] VITALS: BMI 23.1
[2024-01-01 09:01] LABS: International Normalized Ratio 2.8; Prothrombin Time (Protime)PT. 28.9 SECONDS (11.7-14.9)
== END 2024-01-01 18:00 | disposition home or self-care (01) ==
LOC: LAB 08:29
PROVIDERS: Family Provider Family Medicine Geriatric Medicine; PCP Family Medicine Geriatric Medicine; Referring Provider Nurse Practitioner Family; Visit Provider Nurse Practitioner Family
DX: I48.0 Paroxysmal atrial fibrillation (principal); Z79.01 Long term (current) use of anticoagulants
CPT/HCPCS: 36415; 85610

== ENCOUNTER 2024-01-01 10:29 | Emergency (ER) | payer MEDICARE, BC, SELFPAY ==
[2024-01-01] VITALS (7 sets, daily range): BP systolic 114–143; BP diastolic 66–83; PULSE 69–76; RESP 14–18; TEMP 36.6–36.7; O2SAT 90–98; BMI 22.5
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
--- NOTE | 2024-01-01 11:22 | EKG12_ITS ---
Test Reason : HEADACHE Blood Pressure : / mmHG Vent. Rate : 070 BPM Atrial Rate : 070 BPM P-R Int : 000 ms QRS Dur : 138 ms QT Int : 458 ms P-R-T Axes : 000 -72 -19 degrees QTc Int : 494 ms AV dual-paced rhythm Abnormal ECG Confirmed by Nam Chaney ([id number]), web content editor ALESHA WALDEN ([id number]) on 01/04/2024 9:17:17 AM Referred By: Confirmed By:Nam Chaney
--- NOTE | 2024-01-01 11:28 | NURSING ---
[id number] DR BRADLEY
--- NOTE | 2024-01-01 14:00 | NURSING ---
[facility] T2 BED 16 DR TIRADO NURSE TO NURSE [phone]
--- NOTE | 2024-01-01 14:11 | NURSING ---
CALLED [facility], ETA IS 90 MIN
== END 2024-01-01 16:00 | disposition short-term general hospital (02) ==
LOC: ED 11:11
PROVIDERS: Emergency Provider Emergency Medicine; PCP Family Medicine Geriatric Medicine; Visit Provider Emergency Medicine
DX: I62.00 Nontraumatic subdural hemorrhage, unspecified (principal); I48.0 Paroxysmal atrial fibrillation; Z87.891 Personal history of nicotine dependence; R51.9 Headache, unspecified; Z79.01 Long term (current) use of anticoagulants; Z95.0 Presence of cardiac pacemaker; E78.00 Pure hypercholesterolemia, unspecified; I10 Essential (primary) hypertension; Z95.3 Presence of xenogenic heart valve; F32.A Depression, unspecified; Z79.899 Other long term (current) drug therapy; Z79.82 Long term (current) use of aspirin; F41.9 Anxiety disorder, unspecified; Z90.49 Acquired absence of other specified parts of digestive tract
CPT/HCPCS: 93005; 96365; 96375; 96376; 99283; A4216; C9159; J2405; J3490

== ENCOUNTER → 2024-01-01 | Outpatient (CLI) | payer MEDICARE, BC, SELFPAY ==
--- NOTE | 2024-01-01 09:41 | CT_ITS ---
We are attempting to reach an attending provider to discuss findings. An addendum with communication details will be sent when the communication is complete. INDICATION: headache EXAMINATION: CT BRAIN - CT Head or Brain W/O Contrast Injection TECHNIQUE: Multiple axial images were obtained of the head without intravenous contrast. The protocol utilizes one or more of the following dose reduction techniques: automated exposure control, adjustment of mA and/or kV according to patient size,and/or use of iterative reconstruction technique. IV Contrast dosage and agent: None. RADIATION DOSAGE (If Supplied By Facility): CTDIvol = ( 44.99 ) mGy, DLP = ( 829.85 ) mGycm COMPARISON: Prior study dated: 12/08/2023 FINDINGS: BRAIN PARENCHYMA: Right frontoparietal mostly subacute subdural hematoma measuring about 1.7 cm in maximum thickness areas of increased attenuation of the fat more recent blood. It was not seen on the previous exam. There is mild mass effect and 3 mm shifted midline to the left side. 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 There is otherwise preservation of the brooke/white matter interface. Posterior fossa structures are unremarkable. Atherosclerotic calcifications of the cavernous internal carotid arteries. CSF SPACES: Appropriate for age. No hydrocephalus. Basal cisterns are patent. CALVARIUM, SKULL BASE, PARANASAL SINUSES AND MASTOID AIR CELLS: Clear. No discrete lytic or blastic abnormalities. ORBITS: Both globes, extraocular muscles, optic nerves and retrobulbar fat appear unremarkable. CT/Brain/Head without Contrast IMPRESSION: Right frontoparietal subacute subdural hematoma with mild mass effect and mild shift of the midline to the left side as described above. Electronically Signed: Sky Travis MD at 10:19 EDT ,
[2024-01-01 10:37] LABS: Absolute Lymphocyte Count 0.95 X10^3/uL (0.83-4.51); Absolute Neutrophil Count 4.9 X10^3/uL (2.0-7.7); Basophil# 0.04 X10^3/uL; Basophil% 0.6 % (0-1); Eosinophils% 1.4 % (0-5); Hematocrit 33.4 % (40-54); Hemoglobin 10.8 g/dL (13.0-16.5); Lymphocyte # 0.95 X10^3/ul (0.83-4.51); Lymphocyte % 13.2 % (19-41); Mean Corp Hgb Conc 32.3 g/dL (32-36); Mean Corpuscular Hgb 30.1 pg (27.0-32.0); Mean Platelet Vol. 10.2 fl (6.2-12.0); Monocyte# 1.15 X10^3/uL; NRBC Flagged by Analyzer 0 % (0-5); Neutrophil # 4.92 X10^3/uL (2.7-7.7); Neutrophil % 68.2 % (47-70); Platelet Count 151 K/mm3 (150-450); RBC Distribution Width CV 14.6 % (11.6-14.6); RBC Distribution Width SD 49.9 fl (35.1-43.9); Red Blood Count 3.59 M/mm3 (4.6-6.2); White Blood Count 7.2 K/mm3 (4.4-11.0)
[2024-01-01 11:08] LABS: ALB/GLOB Ratio 0.9 RATIO (0.9-2.4); AST(SGOT) 37 U/L (15-37); Alanine Aminotransfer ALT/SGPT 28 U/L (16-61); Albumin, Serum 3.4 g/dL (3.2-5.0); Alkaline Phosphatase 128 U/L (45-117); Anion Gap 5 (5-15); BUN 19 mg/dL (7-18); BUN/Creat Ratio 18.3 RATIO (10-20); Calcium,Total 9.2 mg/dL (8.5-10.1); Chloride 106 mmol/L (98-107); Creatinine, Serum 1.04 mg/dL (0.70-1.30); EST Glomerular Filtration Rate 75 mL/min (>60); Est Glom Filt Rate - Afr Amer 91 mL/min (>60); Globulin 3.9 g/dL (2.2-4.2); Glucose 100 mg/dL (74-106); Potassium 4.3 mmol/L (3.5-5.1); Protein, Total 7.3 g/dL (6.4-8.2); Sodium Level 138 mmol/L (136-145)
== END | disposition home or self-care (01) ==
PROVIDERS: PCP Family Medicine Geriatric Medicine; Referring Provider Family Medicine Geriatric Medicine; Visit Provider Family Medicine Geriatric Medicine
DX: R51.9 Headache, unspecified (principal); R53.83 Other fatigue
CPT/HCPCS: 36415; 70450; 80053; 85025

== ENCOUNTER 2024-03-04 07:30 | Outpatient (RCR) | payer MEDICARE, BC, SELFPAY | END 2024-03-04 19:00 | disposition home or self-care (01) | LOC: PT 07:30 | PROVIDERS: PCP Family Medicine Geriatric Medicine | DX: M54.16 Radiculopathy, lumbar region (principal); G89.29 Other chronic pain | CPT/HCPCS: 97113; 97162; 97530 ==

== ENCOUNTER → 2024-03-07 | Outpatient (CLI) | payer MEDICARE, BC, SELFPAY ==
--- OUTSIDE RECORDS SUMMARY | 2024-03-07 12:02 | XMS RPT_ITS | CCD ---
Author Organization [facility] Care Team Providers Care Manager Bar Name Role Phone Agustina WARE, Delmy Garcia Unavailable Unavailable PROVIDER, UNKNOWN Unavailable Unavailable DEVEN, FRACISCO-CHI Unavailable Unavailable Portillo, Nile Unavailable Unavailable Deven, Fracisco Chi Primary Care Provider [phone] Deven FINLEY, Fracisco-Chi Primary Care Provider [phone] MAHAMED FINLEY, DR JASON Attending Unavailabl e VARIAN, LANCE Attending Unavailable DEVEN, FRACISCO-CHI Primary Care Unavailable VARIAN, LANCE Attending Unavailable DEVEN, FRACISCO-CHI Primary Care Unavailable DEVEN, FRACISCO-CHI Primary Care Unavailable SELENA LEONARDO Attending Unavailable VARIAN, LANCE Attending Unavailable DEVEN, FRACISCO-CHI Primary Care Unavailable DEVEN, FRACISCO-CHI Primary Care Unavailable SELENA LEONARDO Referring Unavailable SELENA LEONARDO Attending Unavailable DEVEN, FRACISCO-CHI Primary Care Unavailable ERICKA NICHOLAS Attending Unavailable ERICKA NICHOLAS Admitting Unavailable DEVEN, FRACISCO-CHI Primary Care Unavailable SELENA LEONARDO Referring Unavailable SELENA LEONARDO Attending Unavailable DEVEN, FRACISCO-CHI Primary Care Unavailable SELENA LEONARDO Referring Unavailable SELENA LEONARDO Attending Unavailable DEVEN, FRACISCO-CHI Primary Care Unavailable ERICKA NICHOLAS Attending Unavailable JOLANTA, DELBERT Attending Unavailable DEVEN, FRACISCO-CHI Primary Care Unavailable DEVEN, FRACISCO-CHI Primary Care Unavailable KESHAV DEL CASTILLO Referring Unavailable KESHAV DEL CASTILLO Attending Unavailable DEVEN, FRACISCO-CHI Primary Care Unavailable SELENA LEONARDO Referring Unavailable SELENA LEONARDO Attending Unavailable DEVEN, FRACISCO-CHI Primary Care Unavailable SELENA LEONARDO Attending Unavailable SELENA LEONARDO Referring Unavailable DEVEN, FRACISCO-CHI Primary Care Unavailable JOSEPHINE LEES Referring Unavailable JOSEPHINE LEES Attending Unavailable DEVEN, FRACISCO-CHI Primary Care Unavailable SELENA LEONARDO Attending Unavailable DEVEN, FRACISCO-CHI Primary Care Unavailable SELENA LEONARDO Attending Unavailable DEVEN, FRACISCO-CHI Primary Care Unavailable SELENA LEONARDO Attending Unavailable SELENA LEONARDO Referring Unavailable VENTURA REID Attending Unavailable DEVEN, FRACISCO-CHI Primary Care Unavailable DEVEN, FRACISCO-CHI Primary Care Unavailable BRONSON CURIEL Attending Unavailable DEVEN, FRACISCO-CHI Primary Care Unavailable SELENA LEONARDO Attending Unavailable DEVEN, FRACISCO-CHI Attending Unavailable DEVEN, FRACISCO-CHI Primary Care Unavailable VARIAN, LANCE Admitting Unavailable VARIAN, LANCE Referring Unavailable ROGERIO VEGA Attending Unavailable DEVEN, FRACISCO-CHI Primary Care Unavailable WERO INGRAM Admitting Unavailable NONE, PCP Referring Unavailable DEVEN, FRACISCO-CHI Primary Care Unavailable VARIAN, LANCE Attending Unavailable VARIAN, LANCE Admitting Unavailable Allergies Allergy Classification Reported Allergen(s) Allergy Type Date of Onset Reaction(s) Facility (1 source) nadolol Drug Allergy 7 loose stools, night sweats [facility] Work Phone: [phone] (2 sources) NKDA; Translations: [NKDA] allergy to substance 5 [facility] [employer] [facility] Work Phone: [phone] (2 sources) NKA drug allergy 1 [facility] [employer] [facility] Work Phone: [phone] Medications Current Medications Medication Drug Class(es) Dates Sig (Normalized) Sig (Original) acetaminophen 325 mg / HYDROcodone bitartrate 5 mg oral tablet (20 sources) Opioid Agonist Start: 04-07-2023 take 1 tablet by mouth four times daily HYDROcodone-aceta minophen ([place]) 5-325 MG tablet TAKE 1 TABLET BY MOUTH FOUR TIMES DAILY FOR 28 DAYS 04/07/2023 Active Start: 08-26-2017 End: 07-30-2023 take 1 tablet by mouth every six hours as needed for pain 1 tablet, Oral, Every 6 hours PRN, moderate pain (4-6), Starting on Thu07/29/23 at 1241, Maximum dose of acetaminophen is 4000 mg from all sources in 24 hours. Start: 04-08-2016 NORCO 5-325 MG TABS as directed HYDROCODONE-ACETAMINOPHEN [id number] Ben Dietz MD Start: 04-08-2016 HYDROCODONE-AC ETAMINOPHEN TABS HYDROCODONE-ACETAMINOPHEN TABS [id number] Lance Pablo MA Albuterol (Eqv-Proventil HFA) 90 mcg/inh inhalation aerosol (1 source) Start: 08-24-2023 Albuterol (Eqv-Proventil HFA) 90 mcg/inh inhalation aerosol 0 Refill(s) Start Date: 08/24/23 Status: Ordered apixaban 5 mg oral tablet (4 sources) Factor Xa Inhibitor Start: 02-23-2024 take 1 tablet by mouth twice daily apixaban (Eliquis) 5 MG tablet Take 1 tablet (5 mg) by mouth 2 times daily. 180 tablet 3 02/23/2024 Active 12 hr buPROPion hydrochloride 150 mg extended release oral tablet (20 sources) Aminoketone Start: 02-26-2023 End: 01-05-2024 take 1 tablet by mouth twice daily buPROPion SR (Wellbutrin SR) 150 MG 12 hr tablet Take 150 mg by mouth 2 times daily. 02/26/2023 Active Start: 02-26-2023 take 1 tablet by deirdre th once daily buPROPion SR (Wellbutrin SR) 150 MG 12 hr tablet Take 150 mg by mouth daily. 0 02/26/2023 Active Start: 08-26-2017 take 1 tablet by deirdre th every hour, then take 1 tablet by mouth twice daily Wellbutrin SR 150 mg/12 hours oral tablet, extended release Dose : 150 mg = 1 tab(s), Oral, BID, 0 Refill(s) Start Date: 08/26/17 Status: Ordered Start: 06-02-2012 End: 09-21-2014 take 1 tablet by mouth once daily WELLBUTRIN XL 150 MG [id number] One tablet by mouth daily BUPROPION HCL [id number] Ben Dietz MD citalopram 20 mg oral tablet (20 sources) Serotonin Reuptake Inhibitor Start: 08-17-2023 End: 01-07-2024 take 1 tablet by mouth once daily citalopram (CeleXA) 20 MG tablet Take 20 mg by mouth daily. 08/17/2023 Active Start: 02-26-2023 End: 07-16-2023 take 1 tablet by mouth once daily citalopram (CeleXA) 20 MG tablet Take 20 mg by mouth daily. 0 02/26/2023 07/16/2023 Discontinued (Therapy completed) Start: 10-27-2014 take 1 tablet by deirdre once daily CITALOPRAM HYDROBROMIDE 20 MG TABS One tablet by mouth daily CITALOPRAM HYDROBROMIDE [id number] Corine Narayanan RN empagliflozin 10 mg oral tablet (20 sources) Sodium-Glucose Cotransporter 2 Inhibitor Start: 05-25-2023 End: 05-24-2024 take 1 tablet by mouth once daily empagliflozin (Jardiance) 10 MG Take 1 tablet (10 mg) by mouth daily. 90 tablet 3 05/25/2023 05/24/2024 Active ferrous fumarate 325 mg oral tablet (1 source) Start: 08-26-2017 ferrous fumarate 325 mg (106 mg elemental iron) oral tablet Dose : 325 mg = 1 tab(s), Oral, Daily, # 30 tab(s), 0 Refill(s) Start Date: 08/26/17 Status: Ordered furosemide 40 mg oral tablet (20 sources) Loop Diuretic Start: 11-20-2023 End: 02-05-2024 furosemide (Lasix) 40 MG tablet Indications: 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) TAKE 1 TABLET EVERY DAY NEEDED FOR WT GAIN OVER 3# IN A DAY OR 5# IN A WEEK, SHORTNESS OF BREATH OR SWELLING 90 tablet 02/05/2024 Active Start: 03-19-2023 End: 07-30-2023 take 1 tablet by mouth once daily furosemide (Lasix) 40 MG tablet Indications: 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) Take 1 tablet (40 mg) by mouth daily. 90 tablet 0 05/25/2023 Active Start: 09-18-2014 End: 09-21-2014 take 1 tablet by mouth twice daily LASIX 40 MG TABS One tablet by mouth twice daily FUROSEMIDE [id number] Anjali Steen RN 24 hr metoprolol succinate 50 mg extended release oral tablet (20 sources) beta-Adrenergic Dane Start: 01-13-2023 End: 01-07-2024 take 1 tablet by mouth once daily metoprolol succinate XL (Toprol-XL) 50 MG 24 hr tablet Take 50 mg by mouth daily. 01/13/2023 Active Start: 06-04-2016 [facility] 50 MG [id number] (ER) One tablet by mouth daily METOPROLOL SUCCINATE [id number] Selena Collazo PA-C microencapsulated potassium chloride 20 meq extended release oral tablet (20 sources) Start: 09-03-2023 End: 09-02-2024 take 1 tablet by mouth every other day KLOR-CON M20 20 MEQ ER tablet Indications: 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) TAKE 1 TABLET (20 MEQ) BY MOUTH EVERY OTHER DAY. DO NOT CRUSH OR CHEW. TAKE 40 MEQ ON DAY 1 AND THEN 20 MEQ EVERY OTHER DAY THERAFTER 90 tablet 2 10/21/2023 Active Start: 10-27-2014 End: 04-30-2023 take 1 tablet by mouth twice daily POTASSIUM CHLORIDE ER 10 MEQ CR-TABS One tablet by mouth twice daily POTASSIUM CHLORIDE [id number] Corine Narayanan RN Start: 09-18-2014 End: 12-20-2014 take 1 tablet by mouth twice daily MICRO-K 10 MEQ CR-CAPS One tablet by mouth twice daily POTASSIUM CHLORIDE [id number] Shruti Ware MD Start: 09-18-2014 take 1 capsule by mo [facility] once daily MICRO-K 10 MEQ CR-CAPS 1 capsule by mouth daily POTASSIUM CHLORIDE [id number] Anjali Steen RN Comment on above: Take 10 mEq by mouth twice daily. spironolactone 25 mg oral tablet (20 sources) Aldosterone Antagonist Start: 04-30-20 End: 04-29-20 24 take 1 tablet by mouth once daily spironolactone (Aldactone) 25 MG tablet TAKE 1 TABLET BY MOUTH EVERY DAY 90 tablet 3 02/29/2024 Active tiZANidine 4 mg oral tablet (20 sources) Central alpha-2 Adrenergic Agonist Start: 06-03-19 End: 07-30-19 24 take 1 tablet by mouth twice daily tiZANidine (Zanaflex) 4 MG tablet TAKE 1 TABLET ORAL TWICE A DAY FOR 30 DAYS 2022 Active Start: 08-26-2017 tiZANidine 2 m g oral tablet Dose : 4 mg = 2 tab(s), Oral, q8h, 0 Refill(s) Start Date: 08/26/17 Status: Ordered Completed/Discontinued Medications Medication Drug Class(es) Dates Sig (Normalized) Sig (Original) acetaminophen 325 mg oral tablet (8 sources) Start: 01-07-2024 End: 01-07-2024 take 1 dose by mouth four times daily, then take 4000 mg by mouth every twenty-four hours 650 mg, Oral, Every 6 hours scheduled (4 times per day), First dose (after last modification) on Leonie 01/07/24 at 1200, Maximum dose of acetaminophen is 4000 mg from all sources in 24 hours. Start: 01-02-2024 End: 01-07-2024 take 1 dose by mouth four times daily, then take 4000 mg by mouth every twenty-four hours 1,000 mg, Oral, Every 6 hours scheduled (4 times per day), First dose (after last modification) on Thu01/02/24 at 1000, Maximum dose of acetaminophen is 4000 mg from all sources in 24 hours. Start: 01-01-2024 End: 01-02-2024 take 1 tablet by mouth every six hours as needed for pain 650 mg, Oral, Every 6 hours PRN, mild pain (1-3), Starting on Thu01/01/24 at 1753, Maximum dose of acetaminophen is 4000 mg from all sources in 24 hours. Start: 07-29-2023 End: 07-30-2023 take 1 tablet by mouth every four hours as needed for pain acetaminophen (Tylenol) tablet 650 mg acetaminophen 325 mg / butalbital 50 mg / caffeine 40 mg oral tablet (2 sources) Barbiturate, Central Nervous System Stimulant, Methylxanthine Start: 01-07-2024 End: 01-07-2024 take 1 tablet by mouth every four hours as needed for headache 1 tablet, Oral, Every 4 hours PRN, headaches, Starting on Thu01/07/24 at 0949 acetaminophen 325 mg / oxyCODONE hydrochloride 5 mg oral tablet (2 sources) Opioid Agonist Start: 11-24-2014 End: 12-20-2014 take 1 tablet by mouth four times daily as needed OXYCODONE-ACETAM INOPHEN 5-325 MG TABS One tablet by mouth four times daily as needed OXYCODONE-ACETAM INOPHEN [id number] Shruti Ware MD [id number] actuat albuterol 0.09 mg/actuat metered dose inhaler (20 sources) beta2-Adrenergic Agonist Start: 01-01-2024 End: 01-07-2024 Start: 07-29-2023 End: 07-30-2023 take 2 puff(s) by inhalation every four hours as needed for wheezing 2 puff, Inhalation, Every 4 hours PRN, wheezing, Starting on Thu07/29/23 at 1242, *Common* Start: 03-10-2023 albuterol 108 (90 Base) MCG/ACT inhaler TAKE 2 PUFFS INHALED 6 TIMES PER DAY FOR 30 DAYS NEEDED WHEEZING/SHORTNESS OF BREATH. 03/10/2023 Active PROAIR HFA 108 ( 90 Base) MCG/ACT AERS 2 puffs q 4 hrs ALBUTEROL SULFATE [id number] Shruti Ware MD ALPRAZolam 0.25 mg oral tablet (2 sources) Benzodiazepine Start: 04-02-2011 End: 04-22-2011 take 1 tablet by mouth three times daily as needed ALPRAZOLAM 0.25 MG TABS One tablet by mouth three times daily as needed ALPRAZOLAM [id number] Gaby Higgins amiodarone hydrochloride 200 mg oral tablet (2 sources) Antiarrhythmic Start: 09-21-2014 End: 10-11-2014 take 1 tablet by mouth once daily AMIODARONE HCL 200 MG TABS One tablet by mouth daily AMIODARONE HCL [id number] Ben Dietz MD amitriptyline hydrochloride 25 mg oral tablet (2 sources) Tricyclic Antidepressant Start: 06-02-2012 End: 10-27-2014 take 1 tablet by mouth once daily at bedtime AMITRIPTYLINE HCL 25 MG TABS (Elavil) One tablet by mouth daily at bedtime AMITRIPTYLINE HCL [id number] Ben Dietz MD amoxicillin 500 mg oral tablet (2 sources) Penicillin-class Antibacterial Start: 04-02-2011 End: 03-31-2016 take 4 tablets by mouth every hour AMOXICILLIN 500 MG TABS 4 tablets by mouth 1 hr prior to procedure AMOXICILLIN [id number] Shruti Ware MD aspirin 81 mg delayed release oral tablet (20 sources) Nonsteroidal Anti-inflammatory Drug Start: 08-26-2017 End: 07-30-2024 aspirin 81 MG EC tablet Take 1 tablet (81 mg) by mouth daily. Take aspirin until INR above 2.0 30 tablet 11 07/31/2023 02/23/2024 Discontinued Start: 04-02-2011 take 1 tablet by deirdre th once daily ASPIRIN 81 MG TABS One tablet by mouth daily ASPIRIN [id number] Gaby Higgins Start: 04-02-2011 take 1 tablet by deirdre th once daily ASPIRIN EC 81 MG TBEC One tablet by mouth daily ASPIRIN [id number] Selena Caruso RN Start: 01-24-2011 take 1 tablet by deirdre th once daily aspirin 81 mg ORAL chewable tablet Take 1 tablet by mouth once daily. 1 tablet 0 01/24/2011 Active Comment on above: Take 1 tablet by deirdre th once daily. atorvastatin 40 mg oral tablet (20 sources) HMG-CoA Reductase Inhibitor Start: 01-01-2024 End: 01-07-2024 take 40 mg by mouth once daily 40 mg, Oral, Nightly, First dose on Thu01/01/24 at 2100 Start: 09-18-2014 End: 07-30-2023 Lipitor 20 mg oral tablet Do se : 20 mg = 1 tab(s), Oral, Daily, 0 Refill(s) Start Date: 08/26/17 Status: Ordered Comment on above: Take 20 mg by mouth once daily. atropine sulfate 0.025 mg / diphenoxylate hydrochloride 2.5 mg oral tablet (3 sources) Anticholinergic, Cholinergic Muscarinic Antagonist, Antidiarrheal End: 04-30-20 23 take 1 tablet by mouth every six hours as needed diphenoxylate-atropi ne (Lomotil) 2.5-0.025 MG tablet Take 1 tablet by mouth every 6 hours as needed. 0 04/30/2023 Discontinued (Therapy completed) take 1 tablet by deirdre th every six hours as needed diphenoxylate-atropine (LOMOTIL) 2.5-0.0 25 mg per tablet Take 1 tablet by mouth four times daily as needed. 0 Active Comment on above: Take 1 tablet by deirdre th four times daily as needed. baclofen 10 mg oral tablet (2 sources) gamma-Aminobutyric Acid-ergic Agonist Start: 11-23-19 13 End: 09-22-19 15 take 1 tablet by mouth three times daily BACLOFEN 10 MG TABS One tablet by mouth three times daily BACLOFEN [id number] Ben Dietz MD cefTRIAXone 100 mg/ml injectable solution (2 sources) Cephalosporin Antibacterial Start: 04-02-20 11 End: 04-22-20 11 take 50 mL intravenous route once daily CEFTRIAXONE SODIUM 2 GM SOLR 50mL, IV daily through CEFTRIAXONE SODIUM [id number] Ben Dietz MD celecoxib 200 mg oral capsule (5 sources) Nonsteroidal Anti-inflammatory Drug Start: 06-02-19 13 End: 04-30-20 23 take 1 tablet by mouth once daily CELEBREX 200 MG CAPS One tablet by mouth daily CELECOXIB [id number] Ben Dietz MD take 1 capsule by mouth twice da damien celecoxib (CELEBREX) 200 mg capsule Take 200 mg by mouth twice daily. 0 Active Comment on above: Take 200 mg by mouth twice daily. cholecalciferol 5000 unt oral tablet (1 source) Vitamin D take 1 tablet by mouth once daily VITAMIN D3 5000 UNIT TABS One tablet by mouth daily CHOLECALCIFEROL [id number] Shruti Ware MD cholecalciferol 9.52 unt/ml / glucose 357 mg/ml oral gel (2 sources) Vitamin D Start: 2023 End: 2023 15 g, Oral, As needed, low blood sugar, Starting on Thu01/01/24 at 1756, If blood glucose less than 50 mg/dL and patient ALERT and NOT NPO, give 2 tubes glucose gel. If blood glucose less than 70 mg/dL and patient ALERT and NOT NPO, give 1 tube glucose gel. Repeat blood glucose in 15 minutes. If blood glucose is less than 70 mg/dL, repeat treatment and recheck blood glucose in 15 minutes x2 and notify provider. cilostazol 100 mg oral tablet (2 sources) Phosphodiesterase 3 Inhibitor Start: 2014 End: 2014 take 1 tablet by mouth once daily CILOSTAZOL 100 MG TABS One tablet by mouth daily CILOSTAZOL [id number] Anjali Steen RN colestipol hydrochloride 1000 mg oral tablet (3 sources) Bile Acid Sequestrant Start: 2015 End: 2016 take 4 tablets by mouth twice daily colestipol (COLESTID) 1 gram tablet TAKE 4 TABLETS BY MOUTH TWICE A DAY 720 tablet 3 04/10/2017 Active Comment on above: TAKE 4 TABLETS BY MO UTH TWICE A DAY Take 4 tablets by mo uth twice daily. cyclobenzaprine hydrochloride 7.5 mg oral tablet (1 source) Muscle Relaxant take 1 tablet by mouth once daily at bedtime CYCLOBENZAPRINE HCL 7.5 MG TABS One tablet by mouth daily at betime. CYCLOBENZAPRINE HCL [id number] Donna Ny NP dapagliflozin 10 mg oral tablet (4 sources) Sodium-Glucose Cotransporter 2 Inhibitor Start: 2023 End: 2023 take 10 mg by mouth once daily 10 mg, Oral, Daily, First dose on Thu01/04/24 at 1145, Indications: Heart Failure Start: 07-30-2023 End: 07-30-2023 take 10 mg by mouth once daily 10 mg, Oral, Daily, Fir st dose on Thu07/30/23 at 0900 diclofenac potassium 50 mg oral tablet (2 sources) Nonsteroidal Anti-inflammatory Drug Start: 12-09-2013 End: 10-27-2014 take 1 tablet by mouth twice daily DICLOFENAC POTASSIUM 50 MG TABS One tablet by mouth twice daily DICLOFENAC POTASSIUM [id number] Ben Dietz MD digoxin 0.125 mg oral tablet (2 sources) Cardiac Glycoside Start: 09-21-2014 End: 10-19-2014 take 1 tablet by mouth once daily DIGOXIN 125 MCG TABS One tablet by mouth daily DIGOXIN [id number] Ben Dietz MD docusate sodium 100 mg oral capsule (2 sources) Start: 01-04-2024 End: 01-07-2024 take 100 mg by mouth twice daily 100 mg, Oral, 2 times daily, First dose on Thu01/04/24 at 0900 doxepin hydrochloride 50 mg oral capsule (16 sources) Tricyclic Antidepressant Start: 01-01-2024 End: 01-07-2024 take 150 mg by mouth once daily 150 mg, Oral, Nightly, First dose on Thu01/01/24 at 2100 Start: 07-13-2023 End: 10-11-2023 take 1 capsule by mouth once daily doxepin (SINEquan) 150 MG capsule Take 150 mg by mouth Nightly. 0 07/13/2023 10/11/2023 Start: 04-08-2023 End: 04-30-2023 take 1 capsule by mouth once daily doxepin (SINEquan) 150 MG capsule Take 1 capsule by mouth daily. 0 04/08/2023 04/30/2023 Discontinued (Therapy completed) DULoxetine 30 mg delayed release oral capsule (1 source) Serotonin and Norepinephrine Reuptake Inhibitor Start: 06-02-2012 take 1 tablet by mouth once daily CYMBALTA 30 MG CPEP One tablet by mouth daily DULOXETINE HCL [id number] Ben Dietz MD 0.3 ml enoxaparin sodium 100 mg/ml prefilled syringe (2 sources) Low Molecular Weight Heparin Start: 01-04-2024 End: 01-05-2024 inject 30 mg by subcutaneous injection every twelve hours 30 mg, SubCUTAneous, Every 12 hours, First dose on Thu01/04/24 at 0900, For 4 doses, Indication of Use: Prophylaxis-DVT/PE, Indications: Prophylaxis of Venous Thromboembolism escitalopram 10 mg oral tablet (2 sources) Serotonin Reuptake Inhibitor Start: 04-02-2011 End: 06-02-2012 take 1 tablet by mouth once daily LEXAPRO 10 MG TABS One tablet by mouth daily ESCITALOPRAM OXALATE [id number] Ben Dietz MD ferrous sulfate 325 mg oral tablet (3 sources) Start: 09-21-2014 take 1 tablet by mouth once daily FERROUS SULFATE 325 (65 Fe) MG TABS One tablet by mouth daily FERROUS SULFATE [id number] Ben Dietz MD Start: 04-02-2011 End: 11-21-2011 take 1 tablet by mouth three times daily FERROUS SULFATE 325 (65 Fe) MG TABS One tablet by mouth three times daily FERROUS SULFATE [id number] Ben Dietz MD gabapentin 300 mg oral capsule (20 sources) Anti-epileptic Agent End: 07-16-2023 gabapentin (Neurontin) 300 MG capsule Take 300 mg by mouth in the morning and 300 mg at noon and 300 mg in the evening. 0 07/16/2023 Discontinued (Therapy completed) take 1 tablet by deirdre th three times daily GABAPENTIN 400 MG CAPS One tablet by deirdre th three times daily GABAPENTIN [id number] Shruti Ware MD Comment on above: Take 300 mg by mouth three times daily. glucagon (rdna) 1 mg injection (2 sources) Antihypoglycemic Agent Start: 01-01-2024 End: 01-07-2024 1 mg, IntraMUSCular, PRN, low blood sugar, Blood glucose less than 70 mg/dL and patient NOT ALERT or NPO and does not have IV access., Starting on Thu01/01/24 at 1756, After administration, attempt intravenous access and start D5W at 100 mL/hr. Repeat blood glucose in 15 minutes x2 and notify provider. 150 ml glucose 50 mg/ml injection (4 sources) Start: 01-01-2024 End: 01-07-2024 12.5 g, IntraVENous, PRN, low blood sugar, Blood glucose less than 70 mg/dL and patient NOT ALERT or NPO., Starting on Thu01/01/24 at 1756, If patient does not respond within 5 minutes, repeat dose x1. Start D5W at 100 mL/hour until ordering provider can be reached. Repeat blood glucose in 15 minutes. If blood glucose is less than 70 mg/dL, repeat treatment and recheck blood glucose in 15 minutes x2. If using Glucostabilizer, dose as instructed per system. Start: 01-01-2024 End: 01-07-2024 100 mL/hr, IntraVENous, PRN, Blood sugar less than 70mg/dL, Starting on Thu01/01/24 at 1756, Start infusion following administration of dextrose 50% or glucagon. 1 ml HYDROmorphone hydrochloride 1 mg/ml cartridge (4 sources) Opioid Agonist Start: 01-06-2024 End: 01-07-2024 take 0.5 mg by mouth every two hours as needed for pain 0.5 mg, IntraVENous, Every 2 hour PRN, breakthrough pain, Starting on Thu01/06/24 at 1742, If oral and IV narcotics ordered, use oral first and only use IV if oral is ineffective or cannot take oral. Do Not give oral and IV within 1 hour of each other unless specifically ordered. Start: 01-05-2024 End: 01-06-2024 take 0.5 mg intravenously every four hours as needed 0.5 mg, IntraVENous, Every 4 hours PRN, breakthrough pain, Starting on Thu01/05/24 at 0957, If oral and IV narcotics ordered, use oral first and only use IV if oral is ineffective or cannot take oral. Do Not give oral and IV within 1 hour of each other unless specifically ordered. iopamidol (Isovue-300) 61 % injection 110 mL (2 sources) Start: 01-06-2024 End: 01-06-2024 110 mL, Intra-arTERial, IMG once PRN, contrast, Starting on Thu01/06/24 at 1245, For 1 dose iopamidol (Isovue-370) 76 % injection 100 mL (2 sources) Start: 06-18-2023 End: 06-18-2023 iopamidol (Isovue-370) 76 % injection 100 mL 10 ml lidocaine hydrochloride 10 mg/ml injection (4 sources) Antiarrhythmic, Amide Local Anesthetic Start: 01-06-2024 End: 01-06-2024 As needed, Starting on Thu01/06/24 at 1049, Intraprocedure Start: 04-02-2011 LIDOCAINE HCL GEL Topical 5%, apply patch daily as needed LIDOCAINE HCL GEL [id number] Gaby Higgins Start: 04-02-2011 End: 06-02-2012 LIDOCAINE HCL GEL Topical 5% , apply patch daily as needed LIDOCAINE HCL GEL [id number] Ben Dietz MD loratadine 10 mg oral tablet (2 sources) Start: 12-09-2013 End: 09-21-2014 LORATADINE 10 MG TABS One daily as needed LORATADINE [id number] Ben Dietz MD meloxicam 15 mg oral tablet (2 sources) Nonsteroidal Anti-inflammatory Drug Start: 04-02-2011 End: 11-21-2011 take 1 tablet by mouth once daily MELOXICAM 15 MG TABS One tablet by mouth daily MELOXICAM [id number] Gaby Higgins MULTIPLE VITAMIN (1 source) Start: 11-21-2011 take 1 tablet by mouth once daily MULTIVITAMINS TABS One tablet by mouth daily MULTIPLE VITAMIN [id number] Ben Dietz MD mupirocin 0.02 mg/mg topical ointment (2 sources) RNA Synthetase Inhibitor Antibacterial Start: 01-01-2024 End: 01-06-2024 1 Application, Nasal, 2 times daily, First dose on Thu01/01/24 at 2100, For 5 days, Indications: MRSA Nasal Decolonization nadolol 40 mg oral tablet (19 sources) beta-Adrenergic Dane Start: 09-21-2014 End: 06-09-2023 take 1 tablet by mouth once daily NADOLOL 40 MG TABS One tablet by mouth daily NADOLOL [id number] Ben Dietz MD Comment on above: Take 40 mg by mouth once daily. 1 ml naloxone hydrochloride 0.4 mg/ml injection (4 sources) Opioid Antagonist Start: 01-01-2024 End: 01-07-2024 0.4 mg, IntraVENous, Every 5 min PRN, opioid reversal, respiratory depression, Starting on Thu01/01/24 at 1759, +++ For RR Start: 07-29-2023 End: 07-30-2023 naloxone (Narcan) injection 0.4 mg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 Collaboration (CKD-EPI) equation refit without adjustment for race Performed By: #### L AB15 ####Labor And Delivery Nurse: MASON ARMENTA ([phone])[facility] ([facility])[address] [place] [address] [place] Glucose [Mass/Vol] 185 mg/dL High 70-100 [facility] Comment on above: Performed By: #### L AB15 ####Labor And Delivery Nurse: MASON ARMENTA ([phone])[facility] ([facility])[address] [place] [address] Potassium [Moles/Vol] 4.7 mmol/L Normal 3.5-5.1 [facility] Comment on above: Performed By: #### L AB15 ####Labor And Delivery Nurse: MASON ARMENTA ([phone])[facility] ([facility])[address] [place] [address] Sodium [Moles/Vol] 134 mmol/L Low 135-145 [facility] Comment on above: Performed By: #### L AB15 ####Labor And Delivery Nurse: MASON ARMENTA ([id number])[facility] ([facility])[address] [place] [address] Urea nitrogen [Mass/Vol] 27 mg/dL High 9-20 [facility] Comment on above: Performed By: #### L AB15 ####Labor And Delivery Nurse: MASON ARMENTA ([phone])[facility] ([facility])[address] [place] [address] Basic metabolic 1998 panelon 01-07-2024 Anion gap [Moles/Vol] 4 mmol/L 3 - 13 mmol/L [place] Calcium [Mass/Vol] 9.1 mg/dL 8.4 - 10. 4 mg/dL [place] Chloride [Moles/Vol] 104 mmol/L 98 - 10 7 mmol/L [place] CO2 [Moles/Vol] 27 mmol/L 22 - 30 mmol/L [place] Creatinine [Mass/Vol] 0.79 mg/dL 0.66 - 1.25 mg/dL [place] GFR/1.73 sq M.predicted (S/P/Bld) [Vol rate/Area] - PINF [place] Comment on above: Calculation based on the Chronic Kidney Disease Epidemiology Collaboration (CKD-EPI) equation refit without adjustment for race Glucose [Mass/Vol] 185 mg/dL High 70 - 100 mg/dL [place] Interpretation and review of laboratory results Abnormal [place] Potassium [Moles/Vol] 4.7 mmol/L 3.5 - 5.1 mmol/L [place] Sodium [Moles/Vol] 134 mmol/L Low 135 - 145 mmol/L [place] Urea nitrogen [Mass/Vol] 27 mg/dL High 9 - 20 mg/dL [facility] CARECOORDon 01-07-2024 CARECOORD Normal [facility] CBC (HEMOGRAM)on 01-07-2024 Erythrocyte distribution width (RBC) [Ratio] 14.2 % Normal 11.5-15.0 [facility] Comment on above: Performed By: #### L [id number] ####Labor And Delivery Nurse: MASON ARMENTA ([id number])[facility])[address] [place] [address] Hematocrit (Bld) [Volume fraction] 31.5 % Low 40.0-52.0 [facility] Comment on above: Performed By: #### L [id number] ####Labor And Delivery Nurse: MASON ARMENTA ([phone])[facility])[address] [place] [address] Hemoglobin (Bld) [Mass/Vol] 10.1 g/dL Low 13.0-18.0 [facility] Comment on above: Performed By: #### L [id number] ####Labor And Delivery Nurse: MASON ARMENTA ([id number])[facility])[address] [place] [address] MCH (RBC) [Entitic mass] 29.2 pg Normal 26.0-34.0 [facility] Comment on above: Performed By: #### L [id number] ####Labor And Delivery Nurse: MASON ARMENTA ([id number])[facility])[address] [place] [address] MCHC 32.1 % Normal 30.5-36.0 [facility] Comment on above: Performed By: #### L [id number] ####Labor And Delivery Nurse: MASON ARMENTA ([id number])[facility])[address] [place] [address] MCV (RBC) [Entitic vol] 91.0 fL Normal 77.0-99.0 S [facility] Comment on above: Performed By: #### L [id number] ####Labor And Delivery Nurse: MASON ARMENTA ([id number])[facility] ([facility])[address] [place] [address] Platelet mean volume (Bld) [Entitic vol] 11.8 fL Normal 9.0-12.7 [facility] Comment on above: Performed By: #### L [id number] ####Labor And Delivery Nurse: MASON ARMENTA ([id number])[facility] ([facility])[address] [place] [address] Platelets (Bld) [#/Vol] 124 10*3/uL Low 140-440 [facility] Comment on above: Performed By: #### L [id number] ####Labor And Delivery Nurse: MASON ARMENTA ([id number])[facility] ([facility])[address] [place] [address] RBC (Bld) [#/Vol] 3.46 10*6/uL Low 4.40-5.90 [facility] Comment on above: Performed By: #### L [id number] ####Labor And Delivery Nurse: MASON ARMENTA ([id number])[facility] ([facility])[address] [place] [address] WBC (Bld) [#/Vol] 5.5 10*3/uL Normal 3.6-10.7 [facility] Comment on above: Performed By: #### L [id number] ####Labor And Delivery Nurse: MASON ARMENTA ([id number])[facility] ([facility])[address] [place] [address] CBC panel Auto (Bld)on 01-06 Erythrocyte distribution width (RBC) [Ratio] 14.2 % 11.5 - 15.0 % [place] Hematocrit (Bld) [Volume fraction] 31.5 % Low 40.0 - 52.0 % [place] Hemoglobin (Bld) [Mass/Vol] 10.1 g/dL Low 13.0 - 18.0 g/dL [place] Interpretation and review of laboratory results Abnormal [place] MCH (RBC) [Entitic mass] 29.2 pg 26.0 - 34.0 pg [place] MCHC (RBC) [Mass/Vol] 32.1 % 30.5 - 36.0 % [place] MCV (RBC) [Entitic vol] 91.0 fL 77.0 - 99.0 fL [place] Platelet mean volume (Bld) [Entitic vol] 11.8 fL 9.0 - 12.7 fL [place] Platelets (Bld) [#/Vol] 124 10*3/uL Low 140 - 440 10*3/uL [place] RBC (Bld) [#/Vol] 3.46 10*6/uL Low 4.40 - 5.90 10*6/uL [place] WBC (Bld) [#/Vol] 5.5 10*3/uL 3.6 - 10.7 10*3/uL [facility] CT HEAD WO IV CONTRASTon CT HEAD WO IV CONTRAST Normal [facility] CT Head WO contraston 2023 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 The hematoma slightly smaller with stable mass effect. No acute infarct or new acute intracranial hemorrhage. Report Dictated on Electronically Signed By: Alvarado Rawls MD Electronically Signed Date/Time: 01/07/2024 1:50 PM [facility] Patient Name: BRIANNE [facility]LLO [facility] 1955 [id number] Exam Date/Time: 01/07/2024 04:52 Procedure: CT HEAD WO IV CONTRAST Ordering Provider: DEL CASTILLO KRISTI Reason For Exam: Subdural hematoma CT HEAD WITHOUT CONTRAST CLINICAL HISTORY: Subdural hematoma COMPARISON: 01/02/2024 TECHNIQUE: Helical CT of the brain without contrast. Dose reduction was employed with automated exposure control. FINDINGS: The patient is status post right middle meningeal artery embolization with liquid embolic agent resulting in mild streak artifacts. The low attenuation right convexity subdural hematoma measures up to 15 mm in thickness versus 17 mm on the prior study. Mass effect on the right frontal and parietal lobes is similar. There or no new acute blood products within the hematoma. There is no evidence of an acute infarct. Ventricles are normal in caliber with similar mild leftward midline shift of the septum pellucidum. No osseous or extra cranial soft tissue abnormality is identified. [facility] Alvarado Rawls M D - 01/07/2024 Patient Name: BRIANNE WALLS : 1955 [id number] Exam Date/Time: 01/07/2024 04:52 Procedure: CT HEAD WO IV CONTRAST Ordering Provider: DEL CASTILLO KRISTI Reason For Exam: Subdural hematoma CT HEAD WITHOUT CONTRAST CLINICAL HISTORY: Subdural hematoma COMPARISON: 01/02/2024 TECHNIQUE: Helical CT of the brain without contrast. Dose reduction was employed with automated exposure control. FINDINGS: The patient is status post right middle meningeal artery embolization with liquid embolic agent resulting in mild streak artifacts. The low attenuation right convexity subdural hematoma measures up to 15 mm in thickness versus 17 mm on the prior study. Mass effect on the right frontal and parietal lobes is similar. There or no new acute blood products within the hematoma. There is no evidence of an acute infarct. Ventricles are normal in caliber with similar mild leftward midline shift of the septum pellucidum. No osseous or extra cranial soft tissue abnormality is identified. 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 The hematoma slightly smaller with stable mass effect. No acute infarct or new acute intracranial hemorrhage. Report Dictated on Electronically Signed By: Alvarado Rawls MD Electronically Signed Date/Time: 01/07/2024 1:50 PM EDT [place] Radiology Study observation (narrative) [place] CT Head WO contrastOrdered B y: Alvarado Rawls on 01-07-2024 [facility] [employer] Work Phone: Nursing Noteon 01-07-2024 Nursing Note Pt given discharge instruction and verbalized understand. Pt discharged home with and all his belongings. Normal [facility] Progress Noteon 01-07-2024 Progress Note Normal [facility] Progress Note Normal [facility] Progress Note Normal [facility] Progress Note Normal [facility] Progress Note Nutrition update completed. Chart reviewed. Patient to be monitored and followed by the diet benefits technician. NACHO Perez Normal [facility] Progress Note Normal [facility] Anesthesia Noteon 01-06-2024 Anesthesia Note Normal [facility] CARECOORDon 01-06-2024 CARECOORD Normal [facility] IDNon 01-06-2024 IDN Normal [facility] Laboratory - Chemistry and C hemistry - challengeon 01-06-2024 Glucose [Mass/Vol] 96 mg/dL 70 - 100 mg/dL [place] No Panel Informationon 01-05 Interpretation and review of laboratory results Normal [place] Performed by: [facility], [address] [place] [address] CLIA ID: [id number] [facility] Op Noteon 01-06-2024 Op Note Normal [facility] Progress Noteon 01-06-2024 Progress Note PHYSICAL THERAPY [facility] Name/MRN: Ange Walls ([id number]) Date: 01/06/2024 Transfer 3W>T2 s/p angio and currently bedrest. Monitor for continued PT. Katelyn Silva, SOFTWARE RECRUITER Normal [facility] Progress Note Normal [facility] Progress Note Normal [facility] RFA Cerebral arteries Bilate ral Views W contrast IAon 01-06-2024 Impression: * Successful embolization of the anterior dural branches of the right middle meningeal artery using liquid embolic agent for acute on chronic, right subdural hematoma with pseudomembranes. Clinical correlation is recommended. Report Dictated on Electronically Signed By: Delbert Stover Electronically Signed Date/Time: 01/06/2024 1:39 PM EDT [facility] [employer] [facility] Patient Name: BRIANNE VALLECILLO : 1955 [id number] Exam Date/Time: 01/06/2024 13:01 Procedure: IR ANGIOGRAM CEREBRAL W POSSIBLE INTERVENTION Ordering Provider: GONZALEZ VALERIE Reason For Exam: Subdural hematoma Procedure: Diagnostic cerebral angiogram Endovascular embolization of the anterior dural branches of the right middle meningeal artery using liquid embolic agent Physical Therapy Attendant/Treating Physician: Delbert Stover MD Clinical Information: The patient is a 68-year-old man who presented with 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 He is on life-saving anticoagulation for mechanical heart valve. He was not deemed a good surgical candidate and we requested by neurosurgical colleagues for consideration of right middle meningeal artery embolization. Consent: The benefits, alternatives, and risks to the procedure including but not limited to stroke, bleed, infection, dissection, pseudo aneurysm, NH, renal failure, radiation injury, hair loss, inability to treat, need for retreatment, normal perfusion pressure breakthrough hemorrhage, contrast allergy and reactions, pulmonary embolism, anesthesia complications, teeth loss, other unforeseen complications and were discussed with the patient and patient's family. The risk of ipsilateral vision loss, ipsilateral skin necrosis and ipsilateral stroke because of occult collaterals was discussed and understood by the patient and family.All questions were answered. The patient and patient's family agreed to proceed. Anesthesia: General Anesthesia Room time: 4 hours Technique/findings: Patient was brought to the angiography suite and placed in supine position. Patient's groins were prepped and draped in standard fashion. The right common femoral artery was localized with ultrasonic guidance and the artery was accessed with a 4F micropuncture kit with a single-wall puncture after providing local anesthesia with 1% lidocaine. The 4F sheath was exchanged for a 6 Mohawk short sheath over a guidewire.The short sheath was then connected to a continuous heparinized saline flush. Diagnostic cerebral angiogram Under fluoroscopic guidance, a RIST guide catheter was advanced over a Berenstein diagnostic catheter and a 180 cm guidewire into the right common carotid artery. Right common carotid artery: Intracranial view Under fluoroscopy guidance, the catheter was advanced in the right common carotid artery and biplane angiography was performed over the cranium. The intracranial views of the right common carotid artery in the AP and lateral projections demonstrate mild tortuosity but otherwise normal supraclinoid right internal carotid artery. The right anterior cerebral artery and the right middle cerebral artery are visualized and appear normal. There is a mildly hypoplastic right ophthalmic artery that appears to have EC-IC collaterals from right accessory meningeal artery and possibly from some distal branches of the internal maxillary artery. There do not appear to be any significant collaterals from the right middle meningeal artery, especially from the distal dural branches of the right middle meningeal artery. Right external carotid artery: Intracranial view Under fluoroscopic guidance, the catheter was advanced into the right external carotid artery and biplane angiography was performed over the cranium. The intracranial views of the right external carotid artery in the AP and lateral projections demonstrate a normal right external carotid artery and its intracranial branches. There appear to be some EC-IC ophthalmic collaterals from right accessory meningeal artery and possibly from some distal branches of the internal maxillary artery. There do not appear to be any significant collaterals from the right middle meningeal artery, especially from the distal dural branches of the right middle meningeal artery. Weight-based intravenous heparin was administered. Vials of CARL-18 were centrifuged. Under fluoroscopy guidance, a flow-directed marathon microcatheter was advanced over a 0.01 Synchro microwire. There is difficulty in advancing the catheter into the right internal maxillary artery and its repeatedly goes into the straight right superficial temporal artery. The wire was shaped into appropriate loop and we were successful in advancing into the right internal maxillary artery. There is a loop at the origin of right middle meningeal artery from the internal maxillary artery. Multiple attempts to advance the wire and the microcatheter into the right middle meningeal artery were unsuccessful. The microwire was exchanged for 010 [employer] microwire. Further attempts were also unsuccessful. Finally, the wire was shaped into a 360 loop and after some wire manipulation, we were successful in demonstrating the loop at the origin of right middle meningeal artery and advanced the wire into the middle meni (more content not included)... [facility] Delbert Stover MD - 01/06/2024 Patient Name: BRIANNE WALLS : 1955 [facility]#: [id number] Exam Date/Time: 01/06/2024 13:01 Procedure: IR ANGIOGRAM CEREBRAL W POSSIBLE INTERVENTION Ordering Provider: GONZALEZ VALERIE Reason For Exam: Subdural hematoma Procedure: Diagnostic cerebral angiogram Endovascular embolization of the anterior dural branches of the right middle meningeal artery using liquid embolic agent Physical Therapy Attendant/Treating Physician: Delbert Stover MD Clinical Information: The patient is a 68-year-old man who presented with 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 He is on life-saving anticoagulation for mechanical heart valve. He was not deemed a good surgical candidate and we requested by neurosurgical colleagues for consideration of right middle meningeal artery embolization. Consent: The benefits, alternatives, and risks to the procedure including but not limited to stroke, bleed, infection, dissection, pseudo aneurysm, NH, renal failure, radiation injury, hair loss, inability to treat, need for retreatment, normal perfusion pressure breakthrough hemorrhage, contrast allergy and reactions, pulmonary embolism, anesthesia complications, teeth loss, other unforeseen complications and were discussed with the patient and patient's family. The risk of ipsilateral vision loss, ipsilateral skin necrosis and ipsilateral stroke because of occult collaterals was discussed and understood by the patient and family.All questions were answered. The patient and patient's family agreed to proceed. Anesthesia: General Anesthesia Room time: 4 hours Technique/findings: Patient was brought to the angiography suite and placed in supine position. Patient's groins were prepped and draped in standard fashion. The right common femoral artery was localized with ultrasonic guidance and the artery was accessed with a 4F micropuncture kit with a single-wall puncture after providing local anesthesia with 1% lidocaine. The 4F sheath was exchanged for a 6 Mohawk short sheath over a guidewire.The short sheath was then connected to a continuous heparinized saline flush. Diagnostic cerebral angiogram Under fluoroscopic guidance, a CarvoyantT guide catheter was advanced over a Berenstein diagnostic catheter and a 180 cm guidewire into the right common carotid artery. Right common carotid artery: Intracranial view Under fluoroscopy guidance, the catheter was advanced in the right common carotid artery and biplane angiography was performed over the cranium. The intracranial views of the right common carotid artery in the AP and lateral projections demonstrate mild tortuosity but otherwise normal supraclinoid right internal carotid artery. The right anterior cerebral artery and the right middle cerebral artery are visualized and appear normal. There is a mildly hypoplastic right ophthalmic artery that appears to have EC-IC collaterals from right accessory meningeal artery and possibly from some distal branches of the internal maxillary artery. There do not appear to be any significant collaterals from the right middle meningeal artery, especially from the distal dural branches of the right middle meningeal artery. Right external carotid artery: Intracranial view Under fluoroscopic guidance, the catheter was advanced into the right external carotid artery and biplane angiography was performed over the cranium. The intracranial views of the right external carotid artery in the AP and lateral projections demonstrate a normal right external carotid artery and its intracranial branches. There appear to be some EC-IC ophthalmic collaterals from right accessory meningeal artery and possibly from some distal branches of the internal maxillary artery. There do not appear to be any significant collaterals from the right middle meningeal artery, especially from the distal dural branches of the right middle meningeal artery. Weight-based intravenous heparin was administered. Vials of CARL-18 were centrifuged. Under fluoroscopy guidance, a flow-directed marathon microcatheter was advanced over a 0.01 Synchro microwire. There is difficulty in advancing the catheter into the right internal maxillary artery and its repeatedly goes into the straight right superficial temporal artery. The wire was shaped into appropriate loop and we were successful in advancing into the right internal maxillary artery. There is a loop at the origin of right middle meningeal artery from the internal maxillary artery. Multiple attempts to advance the wire and the microcatheter into the right middle meningeal artery were unsuccessful. The microwire was exchanged for 010 [employer] microwire. Further attempts were also unsuccessful. Finally, the wire was shaped into a 360 loop and after some wire manipulation, we were successful in demonstrating the loop at the orig (more content not included)... [facility] Radiology Study observation (narrative) [place] ANTI-XA LEVEL, LMWHon 2023 ANTI-XA TREATMENT INDICATION Prophylactic Normal [facility] Comment on above: Performed By: #### L [id number] ####Labor And Delivery Nurse: MASON ARMENTA ([phone])[facility] ([facility])[address] [place] [address] ANTI-XA, LMWH/UFH 0.2 IU/mL Normal 0.2-0.5 [Prophylac tic] [facility] Comment on above: Performed By: #### L [id number] ####Labor And Delivery Nurse: MASON ARMENTA ([phone])[facility] ([facility])[address] [place] [address] CARECOORDon 01-05-2024 CARECOORD Normal [facility] ECG 12-LEADon 01-05-2024 ECG 12-LEAD IMPRESSION: Ventricular-paced rhythm Electronically Signed On 01-05-2024 17:43:19 EDT by Marianna Jacobsen Normal [facility] No Panel InformationOrdered By: Marianna Jacobsen on 01-05-2024 P [place] 0 degrees [facility] [employer] Work Phone: WI Interval 38 ms [facility] [employer] Work Phone: QRS [place] -65 degrees [facility] Work Phone: QRSD Interval 192 ms [facility] Work Phone: QT Interval 506 ms [facility] Work Phone: QTC Interval 568 ms [facility] [employer] Work Phone: T Wave [place] 38 degrees [facility] [employer] Work Phone: [facility] Work Phone: No Panel Informationon 01-04 Ventricular-paced rh ythm Electronically Signed On 01-05-2024 17:43:19 EDT by Marianna Bailey M D - 01/05/2024 IMPRESSION: Ventricular-paced rhythm Electronically Signed On 01-05-2024 17:43:19 EDT by Mariannanitin Jacobsen [place] Anti-Xa, LMWH 0.2 0.2-0.5 [Prophylac tic] IU/mL [place] [facility] Indication Prophylactic [facility] Progress Noteon 01-05-2024 Progress Note Normal [facility] Progress Note This note is in-resp onse to a CDI Query: -SDH likely worsened by Warfarin Normal [facility] Progress Note Normal [facility] Vital signsOrdered By: Adrián Jacobsen on 01-05-2024 Heart rate 76 /min bpm [facility] [employer] Work Phone: BASIC METABOLIC PANELon 12-16 Anion gap [Moles/Vol] 4 mmol/L Normal 3-13 [facility] Comment on above: Performed By: #### L [id number] ####Labor And Delivery Nurse: MASON ARMENTA ([phone])[facility] ([facility])[address] [place] [address] Calcium [Mass/Vol] 8.5 mg/dL Normal 8.4-10.4 [facility] Comment on above: Performed By: #### L [id number] ####Labor And Delivery Nurse: MASON ARMENTA ([id number])[facility] ([facility])[address] [place] [address] Chloride [Moles/Vol] 106 mmol/L Normal 98-107 [facility] Comment on above: Performed By: #### L [id number] ####Labor And Delivery Nurse: MASON ARMENTA ([id number])[facility] ([facility])[address] [place] [address] CO2 [Moles/Vol] 24 mmol/L Normal 22-30 [facility] Comment on above: Performed By: #### L [id number] ####Labor And Delivery Nurse: MASON ARMENTA ([id number])[facility] ([facility])[address] [place] [address] Creatinine [Mass/Vol] 0.73 mg/dL Normal 0.66-1.25 [facility] Comment on above: Performed By: #### L [id number] ####Labor And Delivery Nurse: MASON ARMENTA ([id number])[facility] ([facility])[address] [place] [address] GLOMERULAR FILTRATION RATE ML/MIN/1.73 SQ M.PREDICTED >90.0 Normal >60.0 [facility] Comment on above: Result Comment: Calc ulation based on the Chronic Kidney Disease Epidemiology Collaboration (CKD-EPI) equation refit without adjustment for race Performed By: #### L [id number] ####Labor And Delivery Nurse: MASON ARMENTA ([id number])[facility] ([facility])[address] [place] [address] [place] Glucose [Mass/Vol] 89 mg/dL Normal 70-100 [facility] Comment on above: Performed By: #### L [id number] ####Labor And Delivery Nurse: MASON ARMENTA ([id number])[facility] ([facility])[address] [place] [address] Potassium [Moles/Vol] 4.3 mmol/L Normal 3.5-5.1 [facility] Comment on above: Performed By: #### L [id number] ####Labor And Delivery Nurse: MASON ARMENTA ([id number])[facility] ([facility])[address] [place] [address] Sodium [Moles/Vol] 135 mmol/L Normal 135-145 [facility] Comment on above: Performed By: #### L [id number] ####Labor And Delivery Nurse: MASON ARMENTA ([id number])[facility] ([facility])[address] [place] [address] Urea nitrogen [Mass/Vol] 25 mg/dL High 9-20 [facility] Comment on above: Performed By: #### L [id number] ####Labor And Delivery Nurse: MASON ARMENTA ([id number])[facility] ([facility])[address] [place] [address] Basic metabolic 1998 panelon 01-04-2024 Anion gap [Moles/Vol] 4 mmol/L 3 - 13 mmol/L [place] Calcium [Mass/Vol] 8.5 mg/dL 8.4 - 10. 4 mg/dL [place] Chloride [Moles/Vol] 106 mmol/L 98 - 10 7 mmol/L [place] CO2 [Moles/Vol] 24 mmol/L 22 - 30 mmol/L [place] Creatinine [Mass/Vol] 0.73 mg/dL 0.66 - 1.25 mg/dL [place] GFR/1.73 sq M.predicted (S/P/Bld) [Vol rate/Area] - PINF [place] Comment on above: Calculation based on the Chronic Kidney Disease Epidemiology Collaboration (CKD-EPI) equation refit without adjustment for race Glucose [Mass/Vol] 89 mg/dL 70 - 100 mg/dL [place] Interpretation and review of laboratory results Abnormal [place] Potassium [Moles/Vol] 4.3 mmol/L 3.5 - 5.1 mmol/L [place] Sodium [Moles/Vol] 135 mmol/L 135 - 145 mmol/L [place] Urea nitrogen [Mass/Vol] 25 mg/dL High 9 - 20 mg/dL [facility] CARECOORDon 01-04-2024 CARECOORD Normal [facility] CBC W Auto Differential pane l (Bld)on 01-04-2024 Basophils (Bld) [#/Vol] 0.1 10*3/uL 0.0 - 0.2 10*3/uL [facility] Basophils/100 WBC (Bld) 0.7 % 0.0 - 2.0 % [place] Eosinophils (Bld) [#/Vol] 0.3 10*3/uL 0.0 - 0.5 10*3/uL [facility] Eosinophils/100 WBC (Bld) 3.5 % 0.0 - 6.0 % [place] Erythrocyte distribution width (RBC) [Ratio] 14.7 % 11.5 - 15.0 % [place] Hematocrit (Bld) [Volume fraction] 32.9 % Low 40.0 - 52.0 % [place] Hemoglobin (Bld) [Mass/Vol] 10.5 g/dL Low 13.0 - 18.0 g/dL [place] Immature granulocytes (Bld) [#/Vol] 0.0 10*3/uL NINF - 0.1 10*3/uL [facility] Immature granulocytes/100 WBC (Bld) 0.6 % 0.0 - 2.0 % [place] Interpretation and review of laboratory results Abnormal [facility] Lymphocytes (Bld) [#/Vol] 1.2 10*3/uL 1.0 - 4.3 10*3/uL [facility] Lymphocytes/100 WBC (Bld) 16.0 % 15.0 - 45.0 % [place] MCH (RBC) [Entitic mass] 29.8 pg 26.0 - 34.0 pg [place] MCHC (RBC) [Mass/Vol] 31.9 % 30.5 - 36.0 % [place] MCV (RBC) [Entitic vol] 93.5 fL 77.0 - 99.0 fL [facility] Monocytes (Bld) [#/Vol] 0.9 10*3/uL 0.0 - 0.9 10*3/uL [facility] Monocytes/100 WBC (Bld) 12.5 % 5.0 - 13.0 % [facility] Neutrophils (Bld) [#/Vol] 4.8 10*3/uL 1.8 - 7.5 10*3/uL [facility] Neutrophils/100 WBC (Bld) 66.7 % 38.0 - 82.0 % [place] Nucleated RBC/100 WBC (Bld) [Ratio] 0.0 % [place] Platelet mean volume (Bld) [Entitic vol] 11.4 fL 9.0 - 12.7 fL [place] Platelets (Bld) [#/Vol] 131 10*3/uL Low 140 - 440 10*3/uL [place] RBC (Bld) [#/Vol] 3.52 10*6/uL Low 4.40 - 5.90 10*6/uL [place] WBC (Bld) [#/Vol] 7.2 10*3/uL 3.6 - 10.7 10*3/uL [facility] CBC WITH AUTO DIFFERENTIALon 01-04-2024 Basophils (Bld) [#/Vol] 0.1 10*3/uL Normal 0.0-0.2 [facility] Comment on above: Performed By: #### L [id number] ####Labor And Delivery Nurse: MASON ARMENTA ([id number])[facility])[address] [place] [address] Basophils/100 WBC (Bld) 0.7 % Normal 0.0-2.0 [facility] Comment on above: Performed By: #### L [id number] ####Labor And Delivery Nurse: MASON ARMENTA ([phone])[facility])[address] [place] [address] Eosinophils (Bld) [#/Vol] 0.3 10*3/uL Normal 0.0-0.5 [facility] Comment on above: Performed By: #### L [id number] ####Labor And Delivery Nurse: MASON ARMENTA ([id number])[facility])[address] [place] [address] Eosinophils/100 WBC (Bld) 3.5 % Normal 0.0-6.0 [facility] Comment on above: Performed By: #### L [id number] ####Labor And Delivery Nurse: MASON ARMENTA ([phone])[facility])[address] [place] [address] Erythrocyte distribution width (RBC) [Ratio] 14.7 % Normal 11.5-15.0 [facility] [facility] Comment on above: Performed By: #### L [id number] ####Labor And Delivery Nurse: MASON ARMENTA ([id number])[facility])[address] [place] [address] Hematocrit (Bld) [Volume fraction] 32.9 % Low 40.0-52.0 [facility] Comment on above: Performed By: #### L [id number] ####Labor And Delivery Nurse: MASON ARMENTA ([id number])[facility])[address] [place] [address] Hemoglobin (Bld) [Mass/Vol] 10.5 g/dL Low 13.0-18.0 [facility] Comment on above: Performed By: #### L [id number] ####Labor And Delivery Nurse: MASON ARMENTA ([id number])[address] IMMATURE GRANS % 0.6 % Normal 0.0-2.0 [place] [facility] Comment on above: Performed By: #### L [id number] ####Labor And Delivery Nurse: MASON ARMENTA ([id number])[address] IMMATURE GRANS ABSOLUTE 0.0 10*3/uL Normal <0.1 [place] [facility] Comment on above: Performed By: #### L [id number] ####Labor And Delivery Nurse: MASON ARMENTA ([id number])[facility])[address] [place] [address] Lymphocytes (Bld) [#/Vol] 1.2 10*3/uL Normal 1.0-4.3 [facility] Comment on above: Performed By: #### L [id number] ####Labor And Delivery Nurse: MASON ARMENTA ([id number])[facility])[address] [place] [address] Lymphocytes/100 WBC (Bld) 16.0 % Normal 15.0-45.0 [place] [facility] Comment on above: Performed By: #### L [id number] ####Labor And Delivery Nurse: MASON ARMENTA ([phone])[facility])[address] [place] [address] MCH (RBC) [Entitic mass] 29.8 pg Normal 26.0-34.0 [facility] Comment on above: Performed By: #### L [id number] ####Labor And Delivery Nurse: MASON ARMENTA ([id number])[facility])[address] [place] [address] MCHC 31.9 % Normal 30.5-36.0 [facility] Comment on above: Performed By: #### L [id number] ####Labor And Delivery Nurse: MASON ARMENTA ([id number])[address] MCV (RBC) [Entitic vol] 93.5 fL Normal 77.0-99.0 [facility] Comment on above: Performed By: #### L [id number] ####Labor And Delivery Nurse: MASON ARMENTA ([id number])[facility])[address] [place] [address] Monocytes (Bld) [#/Vol] 0.9 10*3/uL Normal 0.0-0.9 [facility] Comment on above: Performed By: #### L [id number] ####Labor And Delivery Nurse: MASON ARMENTA ([id number])[facility])[address] [place] [address] Monocytes/100 WBC (Bld) 12.5 % Normal 5.0-13.0 [facility] Comment on above: Performed By: #### L [id number] ####Labor And Delivery Nurse: MASON ARMENTA ([id number])[facility])[address] [place] [address] NEUTROPHILS ABSOLUTE 4.8 10*3/uL Normal 1.8-7.5 [facility] Comment on above: Performed By: #### L [id number] ####Labor And Delivery Nurse: MASON ARMENTA ([id number])[facility])[address] [place] [address] Neutrophils/100 WBC (Bld) 66.7 % Normal 38.0-82.0 [facility] Comment on above: Performed By: #### L [id number] ####Labor And Delivery Nurse: MASON ARMENTA ([id number])[facility] ([facility])[address] [place] [address] NRBC 0.0 /100 WBCs Normal 0.0-2.0 [facility] Comment on above: Performed By: #### L [id number] ####Labor And Delivery Nurse: MASON ARMENTA ([id number])[facility] ([facility])[address] [place] [address] Platelet mean volume (Bld) [Entitic vol] 11.4 fL Normal 9.0-12.7 [facility] Comment on above: Performed By: #### L [id number] ####Labor And Delivery Nurse: MASON ARMENTA ([id number])[facility] ([facility])[address] [place] [address] Platelets (Bld) [#/Vol] 131 10*3/uL Low 140-440 [facility] Comment on above: Performed By: #### L [id number] ####Labor And Delivery Nurse: MASON ARMENTA ([id number])[facility] ([facility])[address] [place] [address] RBC (Bld) [#/Vol] 3.52 10*6/uL Low 4.40-5.90 [facility] Comment on above: Performed By: #### L [id number] ####Labor And Delivery Nurse: MASON ARMENTA ([id number])[facility] ([facility])[address] [place] [address] WBC (Bld) [#/Vol] 7.2 10*3/uL Normal 3.6-10.7 [facility] Comment on above: Performed By: #### L [id number] ####Labor And Delivery Nurse: MASON ARMENTA ([id number])[facility] ([facility])[address] [place] [address] Consulton 01-04-2024 Consult Normal [facility] IDNon 01-04-2024 IDN Normal [facility] Nursing Noteon 01-04-2024 Nursing Note Normal [facility] Progress Noteon 01-04-2024 Progress Note Normal [facility] Progress Note Normal [facility] Progress Note Normal [facility] BASIC METABOLIC PANELon 08 Anion gap [Moles/Vol] 5 mmol/L Normal 3-13 [facility] Comment on above: Performed By: #### L [id number] ####Labor And Delivery Nurse: MASON ARMENTA ([id number])[facility])[address] [place] [address] Calcium [Mass/Vol] 8.6 mg/dL Normal 8.4-10.4 [facility] Comment on above: Performed By: #### L [id number] ####Labor And Delivery Nurse: MASON ARMENTA ([id number])[facility])[address] [place] [address] Chloride [Moles/Vol] 108 mmol/L High 98-107 [facility] Comment on above: Performed By: #### L [id number] ####Labor And Delivery Nurse: MASON ARMENTA ([id number])[facility])[address] [place] [address] CO2 [Moles/Vol] 22 mmol/L Normal 22-30 [facility] Comment on above: Performed By: #### L [id number] ####Labor And Delivery Nurse: MASON ARMENTA ([id number])[facility])[address] [place] [address] Creatinine [Mass/Vol] 0.86 mg/dL Normal 0.66-1.25 [facility] Comment on above: Performed By: #### L [id number] ####Labor And Delivery Nurse: MASON ARMENTA ([id number])[facility])[address] [place] [address] GLOMERULAR FILTRATION RATE ML/MIN/1.73 SQ M.PREDICTED >90.0 Normal >60.0 [facility] Comment on above: Result Comment: Calc ulation based on the Chronic Kidney Disease Epidemiology Collaboration (CKD-EPI) equation refit without adjustment for race Performed By: #### L [id number] ####Labor And Delivery Nurse: MASON ARMENTA ([id number])[facility])[address] [place] [address] Glucose [Mass/Vol] 91 mg/dL Normal 70-100 [facility] Comment on above: Performed By: #### L [id number] ####Labor And Delivery Nurse: MASON ARMENTA ([id number])[facility] ([facility])[address] [place] [address] Potassium [Moles/Vol] 4.3 mmol/L Normal 3.5-5.1 [facility] Comment on above: Performed By: #### L [id number] ####Labor And Delivery Nurse: MASON ARMENTA ([id number])[facility] ([facility])[address] [place] [address] Sodium [Moles/Vol] 135 mmol/L Normal 135-145 [facility] Comment on above: Performed By: #### L [id number] ####Labor And Delivery Nurse: MASON ARMENTA ([id number])[facility] ([facility])[address] [place] [address] Urea nitrogen [Mass/Vol] 31 mg/dL High 9-20 [facility] Comment on above: Performed By: #### L [id number] ####Labor And Delivery Nurse: MASON ARMENTA ([id number])[facility])[address] [place] [address] Basic metabolic 1998 panelon 01-03-2024 Anion gap [Moles/Vol] 5 mmol/L 3 - 13 mmol/L [place] Calcium [Mass/Vol] 8.6 mg/dL 8.4 - 10. 4 mg/dL [place] Chloride [Moles/Vol] 108 mmol/L High 98 - 10 7 mmol/L [place] CO2 [Moles/Vol] 22 mmol/L 22 - 30 mmol/L [place] Creatinine [Mass/Vol] 0.86 mg/dL 0.66 - 1.25 mg/dL [place] GFR/1.73 sq M.predicted (S/P/Bld) [Vol rate/Area] - PINF [place] Comment on above: Calculation based on the Chronic Kidney Disease Epidemiology Collaboration (CKD-EPI) equation refit without adjustment for race Glucose [Mass/Vol] 91 mg/dL 70 - 100 mg/dL [place] Interpretation and review of laboratory results Abnormal [place] Potassium [Moles/Vol] 4.3 mmol/L 3.5 - 5.1 mmol/L [place] Sodium [Moles/Vol] 135 mmol/L 135 - 145 mmol/L [place] Urea nitrogen [Mass/Vol] 31 mg/dL High 9 - 20 mg/dL [facility] CBC W Auto Differential pane l (Bld)on 01-03-2024 Basophils (Bld) [#/Vol] 0.0 10*3/uL 0.0 - 0.2 10*3/uL [place] Basophils/100 WBC (Bld) 0.5 % 0.0 - 2.0 % [place] Eosinophils (Bld) [#/Vol] 0.1 10*3/uL 0.0 - 0.5 10*3/uL [place] Eosinophils/100 WBC (Bld) 1.4 % 0.0 - 6.0 % [place] Erythrocyte distribution width (RBC) [Ratio] 14.8 % 11.5 - 15.0 % [place] Hematocrit (Bld) [Volume fraction] 32.0 % Low 40.0 - 52.0 % [place] Hemoglobin (Bld) [Mass/Vol] 10.2 g/dL Low 13.0 - 18.0 g/dL [place] Immature granulocytes (Bld) [#/Vol] 0.0 10*3/uL NINF - 0.1 10*3/uL [place] Immature granulocytes/100 WBC (Bld) 0.4 % 0.0 - 2.0 % [place] Interpretation and review of laboratory results Abnormal [place] Lymphocytes (Bld) [#/Vol] 1.1 10*3/uL 1.0 - 4.3 10*3/uL [place] Lymphocytes/100 WBC (Bld) 15.6 % 15.0 - 45.0 % [place] MCH (RBC) [Entitic mass] 29.6 pg 26.0 - 34.0 pg [place] MCHC (RBC) [Mass/Vol] 31.9 % 30.5 - 36.0 % [place] MCV (RBC) [Entitic vol] 92.8 fL 77.0 - 99.0 fL [place] Monocytes (Bld) [#/Vol] 1.0 10*3/uL High 0.0 - 0.9 10*3/uL [facility] Monocytes/100 WBC (Bld) 13.0 % 5.0 - 13.0 % [place] Neutrophils (Bld) [#/Vol] 5.1 10*3/uL 1.8 - 7.5 10*3/uL [place] Neutrophils/100 WBC (Bld) 69.1 % 38.0 - 82.0 % [place] Nucleated RBC/100 WBC (Bld) [Ratio] 0.0 % [place] Platelet mean volume (Bld) [Entitic vol] 10.8 fL 9.0 - 12.7 fL [place] Platelets (Bld) [#/Vol] 127 10*3/uL Low 140 - 440 10*3/uL [place] RBC (Bld) [#/Vol] 3.45 10*6/uL Low 4.40 - 5.90 10*6/uL [place] WBC (Bld) [#/Vol] 7.3 10*3/uL 3.6 - 10.7 10*3/uL [facility] CBC WITH AUTO DIFFERENTIALon 01-03-2024 Basophils (Bld) [#/Vol] 0.0 10*3/uL Normal 0.0-0.2 [facility] Comment on above: Performed By: #### L [id number] ####Labor And Delivery Nurse: MASON ARMENTA ([id number])[address] Basophils/100 WBC (Bld) 0.5 % Normal 0.0-2.0 [facility] Comment on above: Performed By: #### L [id number] ####Labor And Delivery Nurse: MASON ARMENTA ([id number])[address] Eosinophils (Bld) [#/Vol] 0.1 10*3/uL Normal 0.0-0.5 [facility] Comment on above: Performed By: #### L [id number] ####Labor And Delivery Nurse: MASON ARMENTA ([id number])[address] Eosinophils/100 WBC (Bld) 1.4 % Normal 0.0-6.0 [facility] Comment on above: Performed By: #### L [id number] ####Labor And Delivery Nurse: MASON ARMENTA ([id number])[address] Erythrocyte distribution width (RBC) [Ratio] 14.8 % Normal 11.5-15.0 [facility] Comment on above: Performed By: #### L [id number] ####Labor And Delivery Nurse: MASON ARMENTA ([id number])[address] Hematocrit (Bld) [Volume fraction] 32.0 % Low 40.0-52.0 [facility] Comment on above: Performed By: #### L [id number] ####Labor And Delivery Nurse: MASON ARMENTA ([id number])[address] Hemoglobin (Bld) [Mass/Vol] 10.2 g/dL Low 13.0-18.0 [facility] Comment on above: Performed By: #### L [id number] ####Labor And Delivery Nurse: MASON ARMENTA ([id number])[address] IMMATURE GRANS % 0.4 % Normal 0.0-2.0 [facility] Comment on above: Performed By: #### L [id number] ####Labor And Delivery Nurse: MASON ARMENTA ([id number])[address] IMMATURE GRANS ABSOLUTE 0.0 10*3/uL Normal <0.1 [facility] Comment on above: Performed By: #### L [id number] ####Labor And Delivery Nurse: MASON ARMENTA ([id number])[facility])[address] [place] [address] Lymphocytes (Bld) [#/Vol] 1.1 10*3/uL Normal 1.0-4.3 [facility] Comment on above: Performed By: #### L [id number] ####Labor And Delivery Nurse: MASON ARMENTA ([phone])[facility])[address] [place] [address] Lymphocytes/100 WBC (Bld) 15.6 % Normal 15.0-45.0 [facility] Comment on above: Performed By: #### L [id number] ####Labor And Delivery Nurse: MASON ARMENTA ([id number])[facility])[address] [place] [address] MCH (RBC) [Entitic mass] 29.6 pg Normal 26.0-34.0 [facility] Comment on above: Performed By: #### L [id number] ####Labor And Delivery Nurse: MASON ARMENTA ([id number])[facility])[address] [place] [address] MCHC 31.9 % Normal 30.5-36.0 [facility] Comment on above: Performed By: #### L [id number] ####Labor And Delivery Nurse: MASON ARMENTA ([id number])[facility])[address] [place] [address] MCV (RBC) [Entitic vol] 92.8 fL Normal 77.0-99.0 [facility] Comment on above: Performed By: #### L [id number] ####Labor And Delivery Nurse: MASON ARMENTA ([id number])[facility] ([facility])[address] [place] [address] Monocytes (Bld) [#/Vol] 1.0 10*3/uL High 0.0-0.9 [facility] Comment on above: Performed By: #### L [id number] ####Labor And Delivery Nurse: MASON ARMENTA ([id number])[facility])[address] [place] [address] [place] Monocytes/100 WBC (Bld) 13.0 % Normal 5.0-13.0 [facility] Comment on above: Performed By: #### L [id number] ####Labor And Delivery Nurse: MASON ARMENTA ([id number])[facility] ([facility])[address] [place] [address] NEUTROPHILS ABSOLUTE 5.1 10*3/uL Normal 1.8-7.5 [facility] Comment on above: Performed By: #### L [id number] ####Labor And Delivery Nurse: MASON ARMENTA ([phone])[facility] ([facility])[address] [place] [address] Neutrophils/100 WBC (Bld) 69.1 % Normal 38.0-82.0 [facility] Comment on above: Performed By: #### L [id number] ####Labor And Delivery Nurse: MASON ARMENTA ([id number])[facility] ([facility])[address] [place] [address] NRBC 0.0 /100 WBCs Normal 0.0-2.0 [facility] Comment on above: Performed By: #### L [id number] ####Labor And Delivery Nurse: MASON ARMENTA ([id number])[facility] ([facility])[address] [place] [address] Platelet mean volume (Bld) [Entitic vol] 10.8 fL Normal 9.0-12.7 [facility] Comment on above: Performed By: #### L [id number] ####Labor And Delivery Nurse: MASON ARMENTA ([id number])[facility] ([facility])[address] [place] [address] Platelets (Bld) [#/Vol] 127 10*3/uL Low 140-440 [facility] Comment on above: Performed By: #### L [id number] ####Labor And Delivery Nurse: MASON ARMENTA ([phone])[facility] ([facility])[address] [place] [address] RBC (Bld) [#/Vol] 3.45 10*6/uL Low 4.40-5.90 [facility] Comment on above: Performed By: #### L [id number] ####Labor And Delivery Nurse: MASON ARMENTA ([phone])[facility] ([facility])[address] [place] [address] WBC (Bld) [#/Vol] 7.3 10*3/uL Normal 3.6-10.7 [facility] Comment on above: Performed By: #### L [id number] ####Labor And Delivery Nurse: MASON ARMENTA ([phone])[facility] ([facility])[address] [place] [address] IDNon 01-03-2024 IDN Normal [facility] Laboratory - Chemistry and C hemistry - challengeon 01-03-2024 Glucose [Mass/Vol] 189 mg/dL High 70 - 100 mg/dL [place] No Panel Informationon 01-02 Interpretation and review of laboratory results Abnormal [place] Performed by: [facility], [address] [place] [address] CLIA ID: [id number] [facility] Progress Noteon 01-03-2024 Progress Note Normal [facility] Progress Note Normal [facility] BASIC METABOLIC PANELon 12-16 Anion gap [Moles/Vol] 6 mmol/L Normal 3-13 [facility] Comment on above: Performed By: #### L [id number] ####Labor And Delivery Nurse: MASON ARMENTA ([phone])[facility])[address] [place] [address] Calcium [Mass/Vol] 9.2 mg/dL Normal 8.4-10.4 [facility] Comment on above: Performed By: #### L AB15 ####Labor And Delivery Nurse: MASON ARMENTA ([phone])[facility] ([facility])[address] [place] [address] [place] Chloride [Moles/Vol] 104 mmol/L Normal 98-107 [facility] Comment on above: Performed By: #### L AB15 ####Labor And Delivery Nurse: MASON ARMENTA ([phone])[facility] ([facility])[address] [place] [address] [place] CO2 [Moles/Vol] 23 mmol/L Normal 22-30 [facility] Comment on above: Performed By: #### L AB15 ####Labor And Delivery Nurse: MASON ARMENTA ([phone])[facility])[address] [place] [address] Creatinine [Mass/Vol] 0.91 mg/dL Normal 0.66-1.25 [facility] Comment on above: Performed By: #### L AB15 ####Labor And Delivery Nurse: MASON ARMENTA ([phone])[facility])[address] [place] [address] GLOMERULAR FILTRATION RATE ML/MIN/1.73 SQ M.PREDICTED >90.0 Normal >60.0 [facility] Comment on above: Result Comment: Calc ulation based on the Chronic Kidney Disease Epidemiology Collaboration (CKD-EPI) equation refit without adjustment for race Performed By: #### L AB15 ####Labor And Delivery Nurse: MASON ARMENTA ([phone])[facility] ([facility])[address] [place] [address] [place] Glucose [Mass/Vol] 133 mg/dL High 70-100 [facility] Comment on above: Performed By: #### L AB15 ####Labor And Delivery Nurse: MASON ARMENTA ([phone])[facility])[address] [place] [address] Potassium [Moles/Vol] 4.2 mmol/L Normal 3.5-5.1 [facility] Comment on above: Performed By: #### L AB15 ####Labor And Delivery Nurse: MASON ARMENTA ([phone])[facility] ([facility])[address] [place] [address] [place] Sodium [Moles/Vol] 133 mmol/L Low 135-145 [facility] Comment on above: Performed By: #### L AB15 ####Labor And Delivery Nurse: MASON ARMENTA ([phone])[facility])[address] [place] [address] [place] Urea nitrogen [Mass/Vol] 30 mg/dL High 9-20 [facility] Comment on above: Performed By: #### L AB15 ####Labor And Delivery Nurse: MASON ARMENTA ([phone])[facility] ([address] Basic metabolic 1998 panelon 01-02-2024 Anion gap [Moles/Vol] 6 mmol/L 3 - 13 mmol/L [place] Calcium [Mass/Vol] 9.2 mg/dL 8.4 - 10. 4 mg/dL [place] Chloride [Moles/Vol] 104 mmol/L 98 - 10 7 mmol/L [place] CO2 [Moles/Vol] 23 mmol/L 22 - 30 mmol/L [place] Creatinine [Mass/Vol] 0.91 mg/dL 0.66 - 1.25 mg/dL [place] GFR/1.73 sq M.predicted (S/P/Bld) [Vol rate/Area] - PINF [facility] Comment on above: Calculation based on the Chronic Kidney Disease Epidemiology Collaboration (CKD-EPI) equation refit without adjustment for race Glucose [Mass/Vol] 133 mg/dL High 70 - 100 mg/dL [place] Interpretation and review of laboratory results Abnormal [place] Potassium [Moles/Vol] 4.2 mmol/L 3.5 - 5.1 mmol/L [place] Sodium [Moles/Vol] 133 mmol/L Low 135 - 145 mmol/L [place] Urea nitrogen [Mass/Vol] 30 mg/dL High 9 - 20 mg/dL [facility] CBC W Auto Differential pane l (Bld)on 01-02-2024 Basophils (Bld) [#/Vol] 0.0 10*3/uL 0.0 - 0.2 10*3/uL [place] Basophils/100 WBC (Bld) 0.1 % 0.0 - 2.0 % [place] Eosinophils (Bld) [#/Vol] 0.0 10*3/uL 0.0 - 0.5 10*3/uL [place] Eosinophils/100 WBC (Bld) 0.0 % 0.0 - 6.0 % [place] Erythrocyte distribution width (RBC) [Ratio] 14.3 % 11.5 - 15.0 % [place] Hematocrit (Bld) [Volume fraction] 33.1 % Low 40.0 - 52.0 % [place] Hemoglobin (Bld) [Mass/Vol] 10.8 g/dL Low 13.0 - 18.0 g/dL [place] Immature granulocytes (Bld) [#/Vol] 0.0 10*3/uL NINF - 0.1 10*3/uL [facility] Immature granulocytes/100 WBC (Bld) 0.5 % 0.0 - 2.0 % [place] Interpretation and review of laboratory results Abnormal [place] Lymphocytes (Bld) [#/Vol] 0.6 10*3/uL Low 1.0 - 4.3 10*3/uL [facility] Lymphocytes/100 WBC (Bld) 7.4 % Low 15.0 - 45.0 % [place] MCH (RBC) [Entitic mass] 29.4 pg 26.0 - 34.0 pg [place] MCHC (RBC) [Mass/Vol] 32.6 % 30.5 - 36.0 % [place] MCV (RBC) [Entitic vol] 90.2 fL 77.0 - 99.0 fL [place] Monocytes (Bld) [#/Vol] 1.3 10*3/uL High 0.0 - 0.9 10*3/uL [facility] Monocytes/100 WBC (Bld) 15.1 % High 5.0 - 13.0 % [place] Neutrophils (Bld) [#/Vol] 6.7 10*3/uL 1.8 - 7.5 10*3/uL [facility] Neutrophils/100 WBC (Bld) 76.9 % 38.0 - 82.0 % [place] Nucleated RBC/100 WBC (Bld) [Ratio] 0.0 % [place] Platelet mean volume (Bld) [Entitic vol] 10.9 fL 9.0 - 12.7 fL [place] Platelets (Bld) [#/Vol] 163 10*3/uL 140 - 440 10*3/uL [place] RBC (Bld) [#/Vol] 3.67 10*6/uL Low 4.40 - 5.90 10*6/uL [place] WBC (Bld) [#/Vol] 8.7 10*3/uL 3.6 - 10.7 10*3/uL [facility] CBC WITH AUTO DIFFERENTIALon 01-02-2024 Basophils (Bld) [#/Vol] 0.0 10*3/uL Normal 0.0-0.2 [facility] Comment on above: Performed By: #### L [id number] ####Labor And Delivery Nurse: MASON ARMENTA ([id number])[facility])[address] [place] [address] Basophils/100 WBC (Bld) 0.1 % Normal 0.0-2.0 S [facility] Comment on above: Performed By: #### L [id number] ####Labor And Delivery Nurse: MASON ARMENTA ([phone])[facility])[address] [place] [address] Eosinophils (Bld) [#/Vol] 0.0 10*3/uL Normal 0.0-0.5 [facility] Comment on above: Performed By: #### L [id number] ####Labor And Delivery Nurse: MASON ARMENTA ([phone])[facility])[address] [place] [address] Eosinophils/100 WBC (Bld) 0.0 % Normal 0.0-6.0 [facility] Comment on above: Performed By: #### L [id number] ####Labor And Delivery Nurse: MASON ARMENTA ([phone])[facility])[address] [place] [address] Erythrocyte distribution width (RBC) [Ratio] 14.3 % Normal 11.5-15.0 [facility] Comment on above: Performed By: #### L [id number] ####Labor And Delivery Nurse: MASON ARMENTA ([id number])[facility])[address] [place] [address] Hematocrit (Bld) [Volume fraction] 33.1 % Low 40.0-52.0 [facility] Comment on above: Performed By: #### L [id number] ####Labor And Delivery Nurse: MASON ARMENTA ([phone])[facility])[address] [place] [address] Hemoglobin (Bld) [Mass/Vol] 10.8 g/dL Low 13.0-18.0 [facility] Comment on above: Performed By: #### L [id number] ####Labor And Delivery Nurse: MASON ARMENTA ([id number])[address] IMMATURE GRANS % 0.5 % Normal 0.0-2.0 [facility] Comment on above: Performed By: #### L [id number] ####Labor And Delivery Nurse: MASON ARMENTA ([id number])[address] IMMATURE GRANS ABSOLUTE 0.0 10*3/uL Normal <0.1 [facility] Comment on above: Performed By: #### L [id number] ####Labor And Delivery Nurse: MASON ARMENTA ([id number])[address] Lymphocytes (Bld) [#/Vol] 0.6 10*3/uL Low 1.0-4.3 [facility] Comment on above: Performed By: #### L [id number] ####Labor And Delivery Nurse: MASON ARMENTA ([id number])[address] Lymphocytes/100 WBC (Bld) 7.4 % Low 15.0-45.0 [facility] Comment on above: Performed By: #### L [id number] ####Labor And Delivery Nurse: MASON ARMENTA ([id number])[address] MCH (RBC) [Entitic mass] 29.4 pg Normal 26.0-34.0 [facility] Comment on above: Performed By: #### L [id number] ####Labor And Delivery Nurse: MASON ARMENTA ([id number])[address] MCHC 32.6 % Normal 30.5-36.0 [facility] Comment on above: Performed By: #### L [id number] ####Labor And Delivery Nurse: MASON [id number])[facility] ([facility])[address] [place] [address] MCV (RBC) [Entitic vol] 90.2 fL Normal 77.0-99.0 S [facility] Comment on above: Performed By: #### L [id number] ####Labor And Delivery Nurse: MASON ARMENTA ([id number])[facility] ([facility])[address] [place] [address] Monocytes (Bld) [#/Vol] 1.3 10*3/uL High 0.0-0.9 [facility] Comment on above: Performed By: #### L [id number] ####Labor And Delivery Nurse: MASON ARMENTA ([id number])[facility] ([facility])[address] [place] [address] Monocytes/100 WBC (Bld) 15.1 % High 5.0-13.0 S [facility] Comment on above: Performed By: #### L [id number] ####Labor And Delivery Nurse: MASON ARMENTA ([id number])[facility] ([facility])[address] [place] [address] NEUTROPHILS ABSOLUTE 6.7 10*3/uL Normal 1.8-7.5 [facility] Comment on above: Performed By: #### L [id number] ####Labor And Delivery Nurse: MASON ARMENTA ([id number])[facility] ([facility])[address] [place] [address] Neutrophils/100 WBC (Bld) 76.9 % Normal 38.0-82.0 [facility] Comment on above: Performed By: #### L [id number] ####Labor And Delivery Nurse: MASON ARMENTA ([id number])[facility] ([facility])[address] [place] [address] NRBC 0.0 /100 WBCs Normal 0.0-2.0 [facility] Comment on above: Performed By: #### L [id number] ####Labor And Delivery Nurse: MASON ARMENTA ([id number])[facility] ([facility])[address] [place] [address] Platelet mean volume (Bld) [Entitic vol] 10.9 fL Normal 9.0-12.7 [facility] Comment on above: Performed By: #### L [id number] ####Labor And Delivery Nurse: MASON ARMENTA ([id number])[facility] ([facility])[address] [place] [address] Platelets (Bld) [#/Vol] 163 10*3/uL Normal 140-440 [facility] Comment on above: Performed By: #### L [id number] ####Labor And Delivery Nurse: MASON ARMENTA ([id number])[facility] ([facility])[address] [place] [address] RBC (Bld) [#/Vol] 3.67 10*6/uL Low 4.40-5.90 [facility] Comment on above: Performed By: #### L [id number] ####Labor And Delivery Nurse: MASON ARMENTA ([id number])[facility] ([facility])[address] [place] [address] WBC (Bld) [#/Vol] 8.7 10*3/uL Normal 3.6-10.7 [facility] Comment on above: Performed By: #### L [id number] ####Labor And Delivery Nurse: MASON ARMENTA ([id number])[facility] ([facility])[address] [place] [address] CT HEAD WO IV CONTRASTon CT HEAD WO IV CONTRAST Normal [facility] CT Head WO contraston 2023 1. Stable right frontoparietal subdural hematoma with stable thin subdural hemorrhage noted in the posterior falx on the right. Unchanged minimal right to left midline shift measuring up to 3 mm. Report Dictated on Electronically Signed By: Eliceo Gaston MD Electronically Signed Date/Time: 01/02/2024 6:08 AM [facility] [employer] Patient Name: BRIANNE [facility]CILLO [facility] 1955 [id number] Exam Date/Time: 01/02/2024 04:59 Procedure: CT HEAD WO IV CONTRAST Ordering Provider: HENNESSY LAURA Reason For Exam: Follow up intracranial hematoma CT HEAD: CLINICAL INDICATION: Follow-up intracranial hematoma TECHNIQUE: Transaxial CT sequence performed through the head with 3 mm reconstruction. Sagittal and Coronal reconstruction images included. Dose reduction was employed with automated exposure control. COMPARISON: 01/01/2024 at 2040 hours FINDINGS: There is redemonstration of a right frontal parietal mixed attenuating subdural collection measuring up to 1.7 cm in maximal thickness, unchanged from the prior exam. There is mass effect with mild effacement of the subjacent cortical sulci. There is a right to left midline shift measuring up to 3 mm. Focal encephalomalacia and gliosis noted in the inferior right frontal lobe. There is stable thin subdural hemorrhage noted about the posterior falx on the right. Ventricles and sulci are normal in size and configuration for age. No mass effect or midline shift. No CT evidence of an acute large territorial infarction. Imaged paranasal sinuses and mastoid air cells are well aerated. Calvarium is unremarkable. [facility] Eliceo Gaston MD - 01/02/2024 Patient Name: BRIANNE WALLS : 1955 Exam Date/Time: 01/02/2024 04:59 Procedure: CT HEAD WO IV CONTRAST Ordering Provider: HENNESSY LAURA Reason For Exam: Follow up intracranial hematoma CT HEAD: CLINICAL INDICATION: Follow-up intracranial hematoma TECHNIQUE: Transaxial CT sequence performed through the head with 3 mm reconstruction. Sagittal and Coronal reconstruction images included. Dose reduction was employed with automated exposure control. COMPARISON: 01/01/2024 at 2040 hours FINDINGS: There is redemonstration of a right frontal parietal mixed attenuating subdural collection measuring up to 1.7 cm in maximal thickness, unchanged from the prior exam. There is mass effect with mild effacement of the subjacent cortical sulci. There is a right to left midline shift measuring up to 3 mm. Focal encephalomalacia and gliosis noted in the inferior right frontal lobe. There is stable thin subdural hemorrhage noted about the posterior falx on the right. Ventricles and sulci are normal in size and configuration for age. No mass effect or midline shift. No CT evidence of an acute large territorial infarction. Imaged paranasal sinuses and mastoid air cells are well aerated. Calvarium is unremarkable. IMPRESSION: 1. Stable right frontoparietal subdural hematoma with stable thin subdural hemorrhage noted in the posterior falx on the right. Unchanged minimal right to left midline shift measuring up to 3 mm. Report Dictated on Electronically Signed By: Eliceo Gaston MD Electronically Signed Date/Time: 01/02/2024 6:08 AM EDT [facility] Study observation (narrative) [place] CT Head WO contrastOrdered B y: Eliceo Gaston on 01-02-2024 [facility] [employer] Work Phone: Consulton 01-02-2024 Consult Normal [facility] Consult Normal [facility] IDNon 01-02-2024 IDN Normal [facility] Laboratory - Chemistry and C hemistry - challengeon 01-02-2024 Glucose [Mass/Vol] 125 mg/dL High 70 - 100 mg/dL [place] Glucose [Mass/Vol] 137 mg/dL High 70 - 100 mg/dL [place] Glucose [Mass/Vol] 137 mg/dL High 70 - 100 mg/dL [place] No Panel Informationon 01-01 Interpretation and review of laboratory results Abnormal [place] Performed by: [facility], [address] [place] [id number] CLIA ID: [id number] [facility] Interpretation and review of laboratory results Abnormal [place] Performed by: [facility], [address] [place] [id number] CLIA ID: [id number] [facility] Interpretation and review of laboratory results Abnormal [place] Performed by: [facility], [address] [place] [id number] CLIA ID: [id number] [facility] Progress Noteon 01-02-2024 Progress Note Normal [facility] Progress Note Normal [facility] CT HEAD WO IV CONTRASTon CT HEAD WO IV CONTRAST Normal [facility] CT Head WO contraston 2023 1. No significant change. Report Dictated on Electronically Signed By: Tacos Barba MD Electronically Signed Date/Time: 01/01/2024 9:06 PM EDT [facility] Patient Name: BRIANNE VALLECILLO : 1955 Exam Date/Time: 01/01/2024 20:41 Procedure: CT HEAD WO IV CONTRAST Ordering Provider: HENNESSY LAURA Reason For Exam: SDH follow up CT BRAIN WITHOUT CONTRAST CLINICAL INDICATION: SDH follow up TECHNIQUE: Noncontrast CT scan of the brain. Multiplanar reformations. Dose reduction was employed with automated exposure control. COMPARISON: 01/01/2024 from [facility] FINDINGS: Right frontal convexity subdural hemorrhage does not appear significantly changed. No significant midline shift. Tiny amount of subdural hemorrhage along the falx also unchanged. Right frontal encephalomalacia similar to previous study. No hydrocephalus. No effacement of the basal cisterns. [facility] Tacos Barba MD - 01/01/2024 Patient Name: BRIANNE WALLS : 1955 Exam Date/Time: 01/01/2024 20:41 Procedure: CT HEAD WO IV CONTRAST Ordering Provider: HENNESSY LAURA Reason For Exam: SDH follow up CT BRAIN WITHOUT CONTRAST CLINICAL INDICATION: SDH follow up TECHNIQUE: Noncontrast CT scan of the brain. Multiplanar reformations. Dose reduction was employed with automated exposure control. COMPARISON: 01/01/2024 from [facility] FINDINGS: Right frontal convexity subdural hemorrhage does not appear significantly changed. No significant midline shift. Tiny amount of subdural hemorrhage along the falx also unchanged. Right frontal encephalomalacia similar to previous study. No hydrocephalus. No effacement of the basal cisterns. IMPRESSION: 1. No significant change. Report Dictated on Electronically Signed By: Tacos Barba MD Electronically Signed Date/Time: 01/01/2024 9:06 PM EDT [facility] Study observation (narrative) [place] CT Head WO contrastOrdered B y: Tacos Barba on 01-01-2024 [facility] [employer] Work Phone: Consulton 01-01-2024 Consult Normal [facility] Laboratory - Chemistry and C hemistry - challengeon 01-01-2024 Glucose [Mass/Vol] 132 mg/dL High 70 - 100 mg/dL [place] [facility] - Coagulationon 0 01-01-2024 PT Coag (Bld) [Time] 15.1 s High 9.0 - 1 2.0 s [place] No Panel Informationon 12-31 Interpretation and review of laboratory results Abnormal [place] Performed by: [facility], [address] [place] [address] CLIA ID: [id number] [facility] PROTHROMBIN TIMEon INR Coag (PPP) [Relative time] 1.4 {INR} High 0.9-1.1 [facility] Comment on above: Result Comment: Guille mmended Anticoagulant Therapy: SEE BELOW----- INR of 2.0 - 3.0 : - Prophylaxis of Venous Thrombosis (high-risk surgery) - Treatment of Venous Thrombosis - Treatment of Pulmonary Embolism (Includes tissue heart valves, Acute Myocardial Infarction to prevent systemic embolism, Valvular Heart Disease, and Atrial Fibrillation)----- INR of 2.5 - 3.5 : - Mechanical Prosthetic Valves (high risk) - If oral anticoagulant therapy is used to prevent Myocardial Infarction Performed By: #### L [id number] ####Labor And Delivery Nurse: MASON ARMENTA ([id number])[facility] [place] [address] PT Coag (PPP) [Time] 15.1 s High 9.0-12.0 [facility] Comment on above: Performed By: #### L [id number] ####Labor And Delivery Nurse: MASON ARMENTA ([phone])[facility] ([facility])[address] [place] [address] [place] PT Coag (Bld) [Time]on 12-31 INR Coag (PPP) [Relative time] 1.4 {INR} High 0.9 - 1.1 [place] Comment on above: Recommended Anticoag ulant Therapy: SEE BELOW ----- INR of 2.0 - 3.0 : - Prophylaxis of Venous Thrombosis (high-risk surgery) - Treatment of Venous Thrombosis - Treatment of Pulmonary Embolism (Includes tissue heart valves, Acute Myocardial Infarction to prevent systemic embolism, Valvular Heart Disease, and Atrial Fibrillation) ----- INR of 2.5 - 3.5 : - Mechanical Prosthetic Valves (high risk) - If oral anticoagulant therapy is used to prevent Myocardial Infarction Interpretation and review of laboratory results Abnormal [facility] Progress Noteon 01-01-2024 Progress Note I was notified by [facility] resident that the patient had arrived on T2 as a Direct Admit. I immediately came to T2 ICU to evaluate patient. I was at the bedside within 15 minutes of patient arrival. Please see H&P for further details. Normal [facility] 36on 11-20-2023 36 OV KDV 10/23/23- pendi ng OV 04/25/24 At October, lasix changed from 40mg every day to 40mg every day PRN BMP 09/10/23 Normal [facility] PATINSon 10-23-2023 PATINS Normal [facility] Progress Noteon 10-23-2023 Progress Note Normal [facility] BASIC METABOLIC PANELon 08-17 Anion gap [Moles/Vol] 6 mmol/L Normal 3-13 [facility] Comment on above: Performed By: #### L [id number] ####Labor And Delivery Nurse: MASON ARMENTA ([phone])[address] Calcium [Mass/Vol] 9.2 mg/dL Normal 8.4-10.4 [facility] Comment on above: Performed By: #### L AB15 ####Labor And Delivery Nurse: MASON ARMENTA ([phone])[facility])[address] [place] [address] Chloride [Moles/Vol] 95 mmol/L Low 98-107 [facility] Comment on above: Performed By: #### L AB15 ####Labor And Delivery Nurse: MASON ARMENTA ([phone])[address] CO2 [Moles/Vol] 32 mmol/L High 22-30 [facility] Comment on above: Performed By: #### L AB15 ####Labor And Delivery Nurse: MASON ARMENTA ([phone])[facility] ([facility])[address] [place] [address] Creatinine [Mass/Vol] 0.91 mg/dL Normal 0.66-1.25 [facility] Comment on above: Performed By: #### L AB15 ####Labor And Delivery Nurse: MASON ARMENTA ([phone])[facility] ([facility])[address] [place] [address] GLOMERULAR FILTRATION RATE ML/MIN/1.73 SQ M.PREDICTED >90.0 Normal >60.0 [facility] Comment on above: Result Comment: Calc ulation based on the Chronic Kidney Disease Epidemiology Collaboration (CKD-EPI) equation refit without adjustment for race Performed By: #### L AB15 ####Labor And Delivery Nurse: MASON ARMENTA ([phone])[facility] ([facility])[address] [place] [address] [place] Glucose [Mass/Vol] 75 mg/dL Normal 70-100 [facility] Comment on above: Performed By: #### L AB15 ####Labor And Delivery Nurse: MASON ARMENTA ([id number])[facility] ([facility])[address] [place] [address] Potassium [Moles/Vol] 3.6 mmol/L Normal 3.5-5.1 [facility] Comment on above: Performed By: #### L AB15 ####Labor And Delivery Nurse: MASON ARMENTA ([id number])[facility] ([facility])[address] [place] [address] [place] Sodium [Moles/Vol] 134 mmol/L Low 135-145 [facility] Comment on above: Performed By: #### L AB15 ####Labor And Delivery Nurse: MASON ARMENTA ([id number])[facility] ([facility])[address] [place] [address] [place] Urea nitrogen [Mass/Vol] 34 mg/dL High 9-20 [facility] Comment on above: Performed By: #### L AB15 ####Labor And Delivery Nurse: MASON ARMENTA ([phone])[facility] ([address] Basic metabolic 1998 panelon 09-10-2023 Anion gap [Moles/Vol] 6 mmol/L 3 - 13 mmol/L [place] Calcium [Mass/Vol] 9.2 mg/dL 8.4 - 10. 4 mg/dL [place] Chloride [Moles/Vol] 95 mmol/L Low 98 - 10 7 mmol/L [place] CO2 [Moles/Vol] 32 mmol/L High 22 - 30 mmol/L [place] Creatinine [Mass/Vol] 0.91 mg/dL 0.66 - 1.25 mg/dL [place] GFR/1.73 sq M.predicted MDRD (S/P/Bld) [Vol rate/Area] - PINF [place] Comment on above: Calculation based on the Chronic Kidney Disease Epidemiology Collaboration (CKD-EPI) equation refit without adjustment for race Glucose [Mass/Vol] 75 mg/dL 70 - 100 mg/dL [place] Interpretation and review of laboratory results Abnormal [place] Potassium [Moles/Vol] 3.6 mmol/L 3.5 - 5.1 mmol/L [place] Sodium [Moles/Vol] 134 mmol/L Low 135 - 145 mmol/L [place] Urea nitrogen [Mass/Vol] 34 mg/dL High 9 - 20 mg/dL [facility] Progress Noteon 09-10-2023 Progress Note Normal [facility] US Heart TransthoracicOrdere d By: Aleta Lopes on 09-10-2023 Aortic Sinus Valsalva 3.8 cm [facility] Work Phone: Aortic Sinus Valsalva Index 2.05 cm/m2 [employer] Work Phone: Ascending Aorta 3.5 cm [employer] Work Phone: Ascending Aorta Index 1.89 cm/m2 [facility] Work Phone: AV Area by Peak Velocity 1.7 cm2 [employer] Work Phone: AV Area by VTI 2.1 cm2 [facility] [employer] Work Phone: [phone] AV Mean Gradient 2 mmHg [facility] [employer] Work Phone: AV Mean Velocity 0.7 m/s [facility] [employer] Work Phone: AV Peak Gradient 4 mmHg [facility] [employer] Work Phone: AV Peak Velocity 1.1 m/s [facility] [employer] Work Phone: AV Velocity Ratio 0.55 [facility] [employer] Work Phone: AV VTI 19.0 cm [facility] [employer] Work Phone: TIARA/BSA Peak Velocity 0.9 cm2/m2 [facility] [employer] Work Phone: TIARA/BSA VTI 1.1 cm2/m2 [facility] Phone: [phone] EF BP 46 % Abnormal 55 - 100 % [facility] Work Phone: Est. RA Pressure 8 mmHg [facility] [employer] Work Phone: Fractional Shortening 2D 12 % 28 - 44 % [facility] [employer] Work Phone: Interpretation and review of laboratory results Abnormal [facility] Phone: IVC Diameter 2.1 cm [facility] Phone: [phone] IVSd 2.0 cm Abnormal 0.6 - 1.0 cm [facility] Phone: [phone] LA Diameter 4.8 cm [facility] Phone: [phone] LA Size Index 2.59 cm/m2 [facility] Phone: LA Volume 2C 55 mL 18 - 58 mL [employer] Work Phone: LA Volume 4C 46 mL 18 - 58 mL [employer] Phone: LA Volume A/L 55 mL [employer] Phone: LA Volume Index 2C 30 mL/m2 16 - 34 mL/m2 [facility] Phone: [phone] LA Volume Index 4C 25 mL/m2 16 - 34 mL/m2 [facility] Work Phone: [phone] LA Volume Index A/L 30 mL/m2 16 - 34 mL/m2 [facility] [employer] Work Phone: LV E' Lateral Velocity 5 cm/s [facility] Work Phone: LV E' Septal Velocity 4 cm/s [facility] Work Phone: LV EDV A2C 156 mL [facility] [employer] Work Phone: LV EDV A4C 159 mL [facility] [employer] Work Phone: LV EDV BP 168 mL Abnormal 67 - 155 mL [facility] [employer] Work Phone: LV EDV Index A2C 84 mL/m2 [facility] [employer] Work Phone: LV EDV Index A4C 86 mL/m2 [facility] [employer] Work Phone: LV EDV Index BP 91 mL/m2 [facility] [employer] Work Phone: LV Ejection Fraction A2C 49 % [facility] [employer] Work Phone: LV Ejection Fraction A4C 41 % [facility] [employer] Work Phone: LV ESV A2C 79 mL [facility] [employer] Work Phone: LV ESV A4C 94 mL [facility] [employer] Work Phone: LV ESV BP 90 mL Abnormal 22 - 58 mL [facility] [employer] Work Phone: LV ESV Index A2C 43 mL/m2 [facility] [employer] Work Phone: LV ESV Index A4C 51 mL/m2 [facility] [employer] Work Phone: LV ESV Index BP 49 mL/m2 [facility] [employer] Work Phone: LV Mass 2D 321.7 g Abnormal 88 - 224 g [facility] [employer] Work Phone: LV Mass 2D Index 173.9 g/m2 Abnormal 49 - 115 g/m2 [facility] [employer] Work Phone: LV RWT Ratio 1.33 [facility] [employer] Work Phone: LVIDd 3.3 cm Abnormal 4.2 - 5.9 cm [facility] [employer] Work Phone: LVIDd Index 1.78 cm/m2 [employer] Work Phone: LVIDs 2.9 cm [employer] Work Phone: LVIDs Index 1.57 cm/m2 [employer] Work Phone: LVOT Area 3.1 cm2 [employer] Work Phone: LVOT Cardiac Output 2.7 liter/mi nu te [employer] Work Phone: LVOT Diameter 2.0 cm [facility] Work Phone: LVOT Mean Gradient 1 mmHg [employer] Work Phone: LVOT Peak Gradient 1 mmHg [employer] Work Phone: LVOT Peak Velocity 0.6 m/s [facility] Work Phone: LVOT Stroke Volume Index 21.4 mL/m2 [employer] Work Phone: LVOT SV 39.6 ml [employer] Work Phone: LVOT VTI 12.6 cm [facility] Work Phone: LVOT:AV VTI Index 0.66 [employer] Work Phone: LVPWd 2.2 cm Abnormal 0.6 - 1.0 cm [facility] Work Phone: MV Area by VTI 1.0 cm2 [employer] Work Phone: MV Max Velocity 2.1 m/s [facility] Work Phone: MV Mean Gradient 3 mmHg [facility] Work Phone: MV Mean Velocity 1.0 m/s [employer] Work Phone: MV Peak Gradient 17 mmHg [employer] Work Phone: MV VTI 41.5 cm [facility] Work Phone: MV:LVOT VTI Index 3.29 [facility] Work Phone: PV Max Velocity 0.8 m/s [facility] Work Phone: PV Peak Gradient 2 mmHg [employer] Work Phone: RA Area 4C 14.2 cm2 [facility] [employer] Work Phone: RA Volume 39 ml [facility] [employer] Work Phone: RA Volume Index A4C 21 mL/m2 [facility] Phone: RV Basal Dimension 5.0 cm [facility] Phone: RV Free Wall Peak S' 6 cm/s [facility] [employer] Work Phone: RV Mid Dimension 4.1 cm [facility] Phone: RVSP 46 mmHg [facility] [employer] Work Phone: Sinotubular Junction 3.4 cm [facility] Phone: TAPSE 0.9 cm Abnormal 1.7 cm [facility] Phone: TR Max Velocity 3.10 m/s [facility] Phone: [facility] Phone: Heart Transthoracicon Left Ventricle: Left ventricle size is normal. Increased wall thickness. Low normal left ventricular systolic function. The EF by visual approximation is 55%. Aneurysmal basal inferolateral. Right Ventricle: Right ventricle is dilated. Lead present in the right ventricle. Mildly reduced systolic function. Mitral Valve: Bioprosthetic valve is well seated in the mitral position and normally functioning. MV mean gradient is 3 mmHg at a heart rate of 69 bpm. No regurgitation. No stenosis noted. Tricuspid Valve: Mild to moderate (1-2+) regurgitation. Mildly elevated RVSP. RVSP is 46 mmHg. IVC/SVC: IVC diameter is normal and decreases less than 50% during inspiration; therefore the estimated right atrial pressure is intermediate (~8 mmHg). Left Ventricle Left ventricle size is normal. Increased wall thickness. Low normal left ventricular systolic function. The EF by visual approximation is 55%. Aneurysmal basal inferolateral. Indeterminate diastolic function due to mitral valve disease. Right Ventricle Right ventricle is dilated. Lead present in the right ventricle.Mildly reduced systolic function. Left Atrium Left atrium is mildly dilated. Right Atrium Right atrium size is normal. IVC/SVC IVC diameter is normal and decreases less than 50% during inspiration; therefore the estimated right atrial pressure is intermediate (~8 mmHg). Mitral Valve Bioprosthetic valve is well seated in the mitral position and normally functioning. MV mean gradient is 3 mmHg at a heart rate of 69 bpm. No regurgitation. No stenosis noted. Tricuspid Valve Valve structure is normal. Mild to moderate (1-2+) regurgitation. Mildly elevated RVSP. RVSP is 46 mmHg. Aortic Valve Trileaflet. No regurgitation. No stenosis. Pulmonic Valve Valve structure is normal. No regurgitation. Ascending Aorta Normal sized sinuses of Valsalva and ascending aorta. Pericardium No pericardial effusion. Septum No interatrial shunt visualized on color Doppler. Study Details Image quality: adequate. Additional technique includes myocardial strain. Heart rate: 69 bpm. Blood pressure: 115/67 mmHg. Cardiac history: prosthetic valve. Technical qualifiers: Technically difficult study due to low parasternal window. Ultrasound enhancement agent was given to enhance imaging. CV CPACS 36on 09-02-2023 36 Labs reviewed, see r [facility] message. mm Normal [facility] BASIC METABOLIC PANELon 08-16 Anion gap [Moles/Vol] 7 mmol/L Normal 3-13 [facility] Comment on above: Performed By: #### L [id number], [id number], LAB15 ####Labor And Delivery Nurse: MASON ARMENTA ([id number])[address] Calcium [Mass/Vol] 8.7 mg/dL Normal 8.4-10.4 [facility] Comment on above: Performed By: #### L [id number], [id number], LAB15 ####Labor And Delivery Nurse: MASON ARMENTA ([id number])[facility] ([facility])[address] [place] [address] [place] Chloride [Moles/Vol] 98 mmol/L Normal 98-107 [facility] Comment on above: Performed By: #### L [id number], [id number], LAB15 ####Labor And Delivery Nurse: MASON ARMENTA ([id number])[facility])[address] [place] [address] CO2 [Moles/Vol] 30 mmol/L Normal 22-30 [facility] Comment on above: Performed By: #### L [id number], [id number], LAB15 ####Labor And Delivery Nurse: MASON ARMENTA ([phone])[facility])[address] [place] [address] Creatinine [Mass/Vol] 0.96 mg/dL Normal 0.66-1.25 [facility] Comment on above: Performed By: #### L [id number], [id number], LAB15 ####Labor And Delivery Nurse: MASON ARMENTA ([id number])[facility])[address] [place] [address] GLOMERULAR FILTRATION RATE ML/MIN/1.73 SQ M.PREDICTED 86.1 mL/min/1.73m*2 Normal >60.0 [facility] Comment on above: Result Comment: Calc ulation based on the Chronic Kidney Disease Epidemiology Collaboration (CKD-EPI) equation refit without adjustment for race Performed By: #### L [id number], [id number], LAB15 ####Labor And Delivery Nurse: MASON ARMENTA ([phone])[facility])[address] [place] [address] Glucose [Mass/Vol] 64 mg/dL Low 70-100 [facility] Comment on above: Performed By: #### L [id number], [id number], LAB15 ####Labor And Delivery Nurse: MASON ARMENTA ([id number])[facility])[address] [place] [address] Potassium [Moles/Vol] 3.4 mmol/L Low 3.5-5.1 [facility] Comment on above: Performed By: #### L [id number], [id number], LAB15 ####Labor And Delivery Nurse: MASON ARMENTA ([id number])[facility] ([facility])[address] [place] [address] [place] Sodium [Moles/Vol] 135 mmol/L Normal 135-145 [facility] Comment on above: Performed By: #### L [id number], [id number], LAB15 ####Labor And Delivery Nurse: MASON ARMENTA ([id number])[facility])[address] [place] [address] [place] Urea nitrogen [Mass/Vol] 30 mg/dL High 9-20 [facility] Comment on above: Performed By: #### L [id number], [id number], LAB15 ####Labor And Delivery Nurse: MASON ARMENTA ([id number])[facility] ([address] Basic metabolic 1998 panelon 09-03-2023 Anion gap [Moles/Vol] 7 mmol/L 3 - 13 mmol/L [place] Calcium [Mass/Vol] 8.7 mg/dL 8.4 - 10. 4 mg/dL [place] Chloride [Moles/Vol] 98 mmol/L 98 - 10 7 mmol/L [place] CO2 [Moles/Vol] 30 mmol/L 22 - 30 mmol/L [place] Creatinine [Mass/Vol] 0.96 mg/dL 0.66 - 1.25 mg/dL [place] GFR/1.73 sq M.predicted MDRD (S/P/Bld) [Vol rate/Area] 86.1 mL/min/{1.73_m2} - PINF [place] Comment on above: Calculation based on the Chronic Kidney Disease Epidemiology Collaboration (CKD-EPI) equation refit without adjustment for race Glucose [Mass/Vol] 64 mg/dL Low 70 - 100 mg/dL [place] Interpretation and review of laboratory results Abnormal [place] Potassium [Moles/Vol] 3.4 mmol/L Low 3.5 - 5.1 mmol/L [place] Sodium [Moles/Vol] 135 mmol/L 135 - 145 mmol/L [place] Urea nitrogen [Mass/Vol] 30 mg/dL High 9 - 20 mg/dL [facility] CBC W Auto Differential pane l (Bld)Ordered By: Kathy Amaral on 09-03-2023 Basophils (Bld) [#/Vol] 0.0 10*3/uL 0.0 - 0.2 10*3/uL [place] Basophils/100 WBC (Bld) 0.2 % 0.0 - 2.0 % [place] Eosinophils (Bld) [#/Vol] 0.2 10*3/uL 0.0 - 0.5 10*3/uL [place] Eosinophils/100 WBC (Bld) 1.9 % 0.0 - 6.0 % [place] Erythrocyte distribution width (RBC) [Ratio] 17.9 % High 11.5 - 15.0 % [facility] [employer] Hematocrit (Bld) [Volume fraction] 36.9 % Low 40.0 - 52.0 % [place] Hemoglobin (Bld) [Mass/Vol] 11.9 g/dL Low 13.0 - 18.0 g/dL [facility] [employer] Immature granulocytes (Bld) [#/Vol] 0.1 10*3/uL High NINF - 0.1 10*3/uL [facility] [employer] Immature granulocytes/100 WBC (Bld) 0.9 % 0.0 - 2.0 % [place] Interpretation and review of laboratory results Abnormal [facility] [employer] IPF 7 [facility] [employer] Lymphocytes (Bld) [#/Vol] 1.0 10*3/uL 1.0 - 4.3 10*3/uL [facility] [employer] Lymphocytes/100 WBC (Bld) 10.4 % Low 15.0 - 45.0 % [place] MCH (RBC) [Entitic mass] 31.5 pg 26.0 - 34.0 pg [facility] [employer] MCHC (RBC) [Mass/Vol] 32.2 % 30.5 - 36.0 % [facility] [employer] MCV (RBC) [Entitic vol] 97.6 fL 77.0 - 99.0 fL [facility] [employer] Monocytes (Bld) [#/Vol] 1.2 10*3/uL High 0.0 - 0.9 10*3/uL [facility] [employer] Monocytes/100 WBC (Bld) 13.2 % High 5.0 - 13.0 % [facility] [employer] Neutrophils (Bld) [#/Vol] 6.9 10*3/uL 1.8 - 7.5 10*3/uL [facility] [employer] Neutrophils/100 WBC (Bld) 73.4 % 38.0 - 82.0 % [facility] [employer] Nucleated RBC/100 WBC (Bld) [Ratio] 0.0 % [facility] [employer] Platelet mean volume (Bld) [Entitic vol] [place] Comment on above: Unable to calculate result. Platelets (Bld) [#/Vol] 75 10*3/uL Low 140 - 440 10*3/uL [facility] [employer] RBC (Bld) [#/Vol] 3.78 10*6/uL Low 4.40 - 5.90 10*6/uL [place] WBC (Bld) [#/Vol] 9.4 10*3/uL 3.6 - 10.7 10*3/uL [facility] CBC WITH AUTO DIFFERENTIALon 09-03-2023 Basophils (Bld) [#/Vol] 0.0 10*3/uL Normal 0.0-0.2 [facility] Comment on above: Performed By: #### L [id number] ####Labor And Delivery Nurse: MASON ARMENTA ([id number])[facility])[address] [place] [address] Basophils/100 WBC (Bld) 0.2 % Normal 0.0-2.0 [facility] Comment on above: Performed By: #### L [id number] ####Labor And Delivery Nurse: MASON ARMENTA ([id number])[facility])[address] [place] [address] Eosinophils (Bld) [#/Vol] 0.2 10*3/uL Normal 0.0-0.5 [facility] Comment on above: Performed By: #### L [id number] ####Labor And Delivery Nurse: MASON ARMENTA ([id number])[facility])[address] [place] [address] Eosinophils/100 WBC (Bld) 1.9 % Normal 0.0-6.0 [facility] Comment on above: Performed By: #### L [id number] ####Labor And Delivery Nurse: MASON ARMENTA ([id number])[facility])[address] [place] [address] Erythrocyte distribution width (RBC) [Ratio] 17.9 % High 11.5-15.0 [facility] Comment on above: Performed By: #### L [id number] ####Labor And Delivery Nurse: MASON ARMENTA ([id number])[facility])[address] [place] [address] Hematocrit (Bld) [Volume fraction] 36.9 % Low 40.0-52.0 [facility] Comment on above: Performed By: #### L [id number] ####Labor And Delivery Nurse: MASON ARMENTA ([id number])[facility])[address] [place] [address] Hemoglobin (Bld) [Mass/Vol] 11.9 g/dL Low 13.0-18.0 [place] Comment on above: Performed By: #### L [id number] ####Labor And Delivery Nurse: MASON ARMENTA ([id number])[facility])[address] [place] [address] IMMATURE GRANS % 0.9 % Normal 0.0-2.0 [place] [facility] Comment on above: Performed By: #### L [id number] ####Labor And Delivery Nurse: MASON ARMENTA ([id number])[facility])[address] [place] [address] IMMATURE GRANS ABSOLUTE 0.1 10*3/uL High <0.1 [facility] Comment on above: Performed By: #### L [id number] ####Labor And Delivery Nurse: MASON ARMENTA ([id number])[facility])[address] [place] [address] IPF 7 Normal [facility] Comment on above: Performed By: #### L [id number] ####Labor And Delivery Nurse: MASON ARMENTA ([id number])[facility])[address] [place] [address] Lymphocytes (Bld) [#/Vol] 1.0 10*3/uL Normal 1.0-4.3 [facility] Comment on above: Performed By: #### L [id number] ####Labor And Delivery Nurse: MASON ARMENTA ([id number])[facility])[address] [place] [address] Lymphocytes/100 WBC (Bld) 10.4 % Low 15.0-45.0 [facility] Comment on above: Performed By: #### L [id number] ####Labor And Delivery Nurse: MASON ARMENTA ([id number])[facility])[address] [place] [address] MCH (RBC) [Entitic mass] 31.5 pg Normal 26.0-34.0 [facility] Comment on above: Performed By: #### L [id number] ####Labor And Delivery Nurse: MASON ARMENTA ([id number])[facility])[address] [place] [address] MCHC 32.2 % Normal 30.5-36.0 [facility] Comment on above: Performed By: #### L [id number] ####Labor And Delivery Nurse: MASON ARMENTA ([id number])[facility])[address] [place] [address] MCV (RBC) [Entitic vol] 97.6 fL Normal 77.0-99.0 S [facility] Comment on above: Performed By: #### L [id number] ####Labor And Delivery Nurse: MASON ARMENTA ([phone])[facility])[address] [place] [address] Monocytes (Bld) [#/Vol] 1.2 10*3/uL High 0.0-0.9 [facility] Comment on above: Performed By: #### L [id number] ####Labor And Delivery Nurse: MASON ARMENTA ([id number])[facility])[address] [place] [address] Monocytes/100 WBC (Bld) 13.2 % High 5.0-13.0 S [facility] Comment on above: Performed By: #### L [id number] ####Labor And Delivery Nurse: MASON ARMENTA ([id number])[facility])[address] [place] [address] MPV Normal [facility] Comment on above: Result Comment: Unab le to calculate result. Performed By: #### L [id number] ####Labor And Delivery Nurse: MASON ARMENTA ([id number])[facility])[address] [place] [address] NEUTROPHILS ABSOLUTE 6.9 10*3/uL Normal 1.8-7.5 [facility] Comment on above: Performed By: #### L [id number] ####Labor And Delivery Nurse: MASON ARMENTA ([id number])[facility] ([facility])[address] [place] [address] Neutrophils/100 WBC (Bld) 73.4 % Normal 38.0-82.0 [facility] Comment on above: Performed By: #### L [id number] ####Labor And Delivery Nurse: MASON ARMENTA ([id number])[facility])[address] [place] [address] NRBC 0.0 /100 WBCs Normal 0.0-2.0 [facility] Comment on above: Performed By: #### L [id number] ####Labor And Delivery Nurse: MASON ARMENTA ([id number])[facility])[address] [place] [address] Platelets (Bld) [#/Vol] 75 10*3/uL Low 140-440 S [facility] Comment on above: Performed By: #### L [id number] ####Labor And Delivery Nurse: MASON ARMENTA ([id number])[facility] ([facility])[address] [place] [address] RBC (Bld) [#/Vol] 3.78 10*6/uL Low 4.40-5.90 [facility] Comment on above: Performed By: #### L [id number] ####Labor And Delivery Nurse: MASON ARMENTA ([id number])[facility])[address] [place] [address] WBC (Bld) [#/Vol] 9.4 10*3/uL Normal 3.6-10.7 [facility] Comment on above: Performed By: #### L [id number] ####Labor And Delivery Nurse: MASON ARMENTA ([id number])[facility])[address] [place] [address] NT PRO BNPon 09-03-2023 Natriuretic peptide B (Bld) [Mass/Vol] 9550 pg/mL High <20-300 [facility] Comment on above: Performed By: #### L [id number], [id number], LAB15 ####Labor And Delivery Nurse: MASON ARMENTA ([id number])[facility])[address] Natriuretic peptide B [Mass/ Vol]on 09-03-2023 Interpretation and review of laboratory results Abnormal [place] Natriuretic peptide B (Bld) [Mass/Vol] 9550 pg/mL High <20 - 300 [facility] Progress Noteon 09-03-2023 Progress Note Normal [facility] THYROID STIMULATING HORMONEo n 09-03-2023 THYROID STIMULATING HORMONE 2.416 uIU/mL Normal 0.465-4.68 0 [facility] Comment on above: Performed By: #### L AB129, [id number], LAB15 ####Labor And Delivery Nurse: MASON ARMENTA ([id number])[facility] ([facility])[address] [place] [address] TSHon 09-03-2023 TSH Qn 2.416 m[IU]/L [place] TSH Qnon 09-03-2023 Interpretation and review of laboratory results Normal [facility] 36on 09-02-2023 36 Normal [facility] 36 Normal [facility] Final Surgical Pathology Rep [facility] 08-26-2023 Final Surgical Pathology Report . Pathology Reports Accession: Collected Date/Time: Received Date/Time: Pathologist: [id number] 08/24/2023 08:39 EDT 08/25/2023 08:12 EDT BRODIE GONZALEZ MD Final Surgical Pathology Report DIAGNOSIS: A. DUODENUM, BIOPSY: - DUODENAL MUCOSA WITHOUT SIGNIFICANT MICROSCOPIC PATHOLOGY B. GASTRIC ANTRUM, BIOPSY: - MILD CHRONIC GASTRITIS. NO ACTIVE GASTRITIS OR HELICOBACTER CLINICAL INFORMATION: PROCEDURE: ESOPHAGOGASTRODUODENOSCOPY WITH BIOPSIES PREOPERATIVE DIAGNOSIS: POSITIVE CELIAC TITER POSTOPERATIVE DIAGNOSIS: POSITIVE CELIAC TITER SPECIMEN: A DUODENUM, BIOPSY B GASTRIC ANTRUM BIOPSY GROSS DESCRIPTION: All parts labelled with patient name and [id number] A. Received in formalin labeled duodenal biopsy are 4 nelson tissue fragments measuring 0.1 to 0.2 cm. TS-1 B. Received in formalin labeled gastric antrum biopsy are 5 nelson tissue fragments measuring 0.1 to 0.3 x 0.2 cm. TS-1 Kiesha Culp, [facility] Social Worker/ Dr. Brodie Gonzalez, Pathologist Dictated by Kiesha Culp MICROSCOPIC DESCRIPTION: The microscopic examination is performed, except in the case of Gross Only. Electronically Signed by Pathology Report verified by [facility] BRODIE GONZALEZ Sign out Date: 08/26/2023 14:51 Performing Lab: [facility], [address] [place] [address] Pathology Dept Disclaimer If ancillary studies were utilized, the following Laboratory Developed Test (LDT) disclaimer will apply: Under CLIA requirements, [facility] is qualified to perform high complexity testing. For all ancillary stains, positive and negative controls stain appropriately. Performance characteristics of immunohistochemical and chromogenic in-situ hybridization tests have been determined by [facility]. These tests are used for clinical purposes, They should not be regarded as investigational or for research. Normal [facility] ([place]) 36on 08-24-2023 36 Normal [facility] Progress Noteon 08-06-2023 Progress Note [facility] 36on 08-05-2023 36 Need an order for 1 month echo-s/p MVR on 07/29/23 [facility] ECG 12-LEADon 08-04-2023 ECG 12-LEAD IMPRESSION: Biventricular paced rhythm PVC Electronically Signed On 08-04-2023 15:09:02 EDT by Lance Hobbs [facility] ECG 12-LEADon 08-03-2023 ECG 12-LEAD IMPRESSION: Sinus rhythm IVCD Electronically Signed On 08-03-2023 17:52:16 EDT by Nam Jimenez [facility] BASIC METABOLIC PANELon 07-16 Anion gap [Moles/Vol] 7 mmol/L Normal 07-28 [facility] Comment on above: Performed By: #### L AB15 ####Labor And Delivery Nurse: MASON ARMENTA ([id number])[facility] ([address] Calcium [Mass/Vol] 8.4 mg/dL Normal 8.4-10.4 [facility] Comment on above: Performed By: #### L AB15 ####Labor And Delivery Nurse: MASON ARMENTA ([id number])[facility] ([facility])[address] [place] [address] [place] Chloride [Moles/Vol] 104 mmol/L Normal 98-107 [facility] Comment on above: Performed By: #### L AB15 ####Labor And Delivery Nurse: MASON ARMENTA ([id number])[facility] ([facility])[address] [place] [address] CO2 [Moles/Vol] 24 mmol/L Normal 22-30 [facility] Comment on above: Performed By: #### L AB15 ####Labor And Delivery Nurse: MASON ARMENTA ([id number])[facility] ([facility])[address] [place] [address] Creatinine [Mass/Vol] 0.90 mg/dL Normal 0.66-1.25 [facility] Comment on above: Performed By: #### L AB15 ####Labor And Delivery Nurse: MASON ARMENTA ([id number])[facility] ([facility])[address] [place] [address] GLOMERULAR FILTRATION RATE ML/MIN/1.73 SQ M.PREDICTED >90.0 Normal >60.0 [facility] Comment on above: Result Comment: Calc ulation based on the Chronic Kidney Disease Epidemiology Collaboration (CKD-EPI) equation refit without adjustment for race Performed By: #### L AB15 ####Labor And Delivery Nurse: MASON ARMENTA ([phone])[facility] ([facility])[address] [place] [address] Glucose [Mass/Vol] 141 mg/dL High 70-100 [facility] Comment on above: Performed By: #### L AB15 ####Labor And Delivery Nurse: MASON ARMENTA ([id number])[facility] ([facility])[address] [place] [address] [place] Potassium [Moles/Vol] 4.5 mmol/L Normal 3.5-5.1 [facility] Comment on above: Performed By: #### L AB15 ####Labor And Delivery Nurse: MASON [id number])[facility] ([facility])[address] [place] [address] [place] Sodium [Moles/Vol] 135 mmol/L Normal 135-145 [facility] Comment on above: Performed By: #### L AB15 ####Labor And Delivery Nurse: MASON ARMENTA ([id number])[facility])[address] [place] [address] Urea nitrogen [Mass/Vol] 29 mg/dL High 9-20 [facility] Comment on above: Performed By: #### L AB15 ####Labor And Delivery Nurse: MASON ARMENTA ([phone])[facility])[address] [place] [address] Basic metabolic 1998 panelon 07-30-2023 Anion gap [Moles/Vol] 7 mmol/L 3 - 13 mmol/L [place] Calcium [Mass/Vol] 8.4 mg/dL 8.4 - 10. 4 mg/dL [place] Chloride [Moles/Vol] 104 mmol/L 98 - 10 7 mmol/L [place] CO2 [Moles/Vol] 24 mmol/L 22 - 30 mmol/L [place] Creatinine [Mass/Vol] 0.90 mg/dL 0.66 - 1.25 mg/dL [place] GFR/1.73 sq M.predicted MDRD (S/P/Bld) [Vol rate/Area] - PINF [place] Comment on above: Calculation based on the Chronic Kidney Disease Epidemiology Collaboration (CKD-EPI) equation refit without adjustment for race Glucose [Mass/Vol] 141 mg/dL High 70 - 100 mg/dL [place] Interpretation and review of laboratory results Abnormal [place] Potassium [Moles/Vol] 4.5 mmol/L 3.5 - 5.1 mmol/L [place] Sodium [Moles/Vol] 135 mmol/L 135 - 145 mmol/L [place] Urea nitrogen [Mass/Vol] 29 mg/dL High 9 - 20 mg/dL [facility] CBC (HEMOGRAM)on 07-30-2023 Erythrocyte distribution width (RBC) [Ratio] 17.4 % High 11.5-15.0 [facility] Comment on above: Performed By: #### L [id number] ####Labor And Delivery Nurse: MASON ARMENTA ([id number])[facility])[address] [place] [address] Hematocrit (Bld) [Volume fraction] 30.3 % Low 40.0-52.0 [facility] Comment on above: Performed By: #### L [id number] ####Labor And Delivery Nurse: MASON ARMENTA ([id number])[facility])[address] [place] [address] Hemoglobin (Bld) [Mass/Vol] 10.0 g/dL Low 13.0-18.0 [facility] Comment on above: Performed By: #### L [id number] ####Labor And Delivery Nurse: MASON ARMENTA ([id number])[facility] ([facility])[address] [place] [address] IPF 5 Normal [facility] Comment on above: Performed By: #### L [id number] ####Labor And Delivery Nurse: MASON ARMENTA ([id number])[facility] ([facility])[address] [place] [address] MCH (RBC) [Entitic mass] 30.5 pg Normal 26.0-34.0 [facility] Comment on above: Performed By: #### L AB294 ####Labor And Delivery Nurse: MASON ARMENTA ([id number])[facility])[address] [place] [address] MCHC 33.0 % Normal 30.5-36.0 [facility] Comment on above: Performed By: #### L [id number] ####Labor And Delivery Nurse: MASON ARMENTA ([id number])[facility])[address] [place] [address] MCV (RBC) [Entitic vol] 92.4 fL Normal 77.0-99.0 S [facility] Comment on above: Performed By: #### L [id number] ####Labor And Delivery Nurse: MASON ARMENTA ([id number])[facility])[address] [place] [address] Platelets (Bld) [#/Vol] 105 10*3/uL Low 140-440 [facility] Comment on above: Performed By: #### L [id number] ####Labor And Delivery Nurse: MASON ARMENTA ([id number])[facility] ([facility])[address] [place] [address] RBC (Bld) [#/Vol] 3.28 10*6/uL Low 4.40-5.90 [facility] Comment on above: Performed By: #### L [id number] ####Labor And Delivery Nurse: MASON ARMENTA ([id number])[facility] ([facility])[address] [place] [address] WBC (Bld) [#/Vol] 6.6 10*3/uL Normal 3.6-10.7 [facility] Comment on above: Performed By: #### L [id number] ####Labor And Delivery Nurse: MASON ARMENTA ([id number])[facility] ([facility])[address] [place] [address] CBC panel Auto (Bld)on 07-29 Erythrocyte distribution width (RBC) [Ratio] 17.4 % High 11.5 - 15.0 % [place] Hematocrit (Bld) [Volume fraction] 30.3 % Low 40.0 - 52.0 % [place] Hemoglobin (Bld) [Mass/Vol] 10.0 g/dL Low 13.0 - 18.0 g/dL [place] Interpretation and review of laboratory results Abnormal [place] IPF 5 [place] MCH (RBC) [Entitic mass] 30.5 pg 26.0 - 34.0 pg [place] MCHC (RBC) [Mass/Vol] 33.0 % 30.5 - 36.0 % [place] MCV (RBC) [Entitic vol] 92.4 fL 77.0 - 99.0 fL [place] Platelets (Bld) [#/Vol] 105 10*3/uL Low 140 - 440 10*3/uL [place] RBC (Bld) [#/Vol] 3.28 10*6/uL Low 4.40 - 5.90 10*6/uL [place] WBC (Bld) [#/Vol] 6.6 10*3/uL 3.6 - 10.7 10*3/uL [facility] Consulton 07-30-2023 Consult Normal [facility] Laboratory - Coagulationon 0 07-30-2023 PT Coag (Bld) [Time] 12.4 s High 9.0 - 1 2.0 s [place] PROTHROMBIN TIMEon INR Coag (PPP) [Relative time] 1.2 {INR} High 0.9-1.1 [facility] Comment on above: Result Comment: Guille mmended Anticoagulant Therapy: SEE BELOW----- INR of 2.0 - 3.0 : - Prophylaxis of Venous Thrombosis (high-risk surgery) - Treatment of Venous Thrombosis - Treatment of Pulmonary Embolism (Includes tissue heart valves, Acute Myocardial Infarction to prevent systemic embolism, Valvular Heart Disease, and Atrial Fibrillation)----- INR of 2.5 - 3.5 : - Mechanical Prosthetic Valves (high risk) - If oral anticoagulant therapy is used to prevent Myocardial Infarction Performed By: #### L [id number] ####Labor And Delivery Nurse: MASON ARMENTA ([id number])[address] PT Coag (PPP) [Time] 12.4 s High 9.0-12.0 [facility] Comment on above: Performed By: #### L AB320 ####Labor And Delivery Nurse: MASON ARMENTA ([id number])[facility])[address] [place] [address] PT Coag (Bld) [Time]on 07-29 INR Coag (PPP) [Relative time] 1.2 {INR} High 0.9 - 1.1 [place] Comment on above: Recommended Anticoag ulant Therapy: SEE BELOW ----- INR of 2.0 - 3.0 : - Prophylaxis of Venous Thrombosis (high-risk surgery) - Treatment of Venous Thrombosis - Treatment of Pulmonary Embolism (Includes tissue heart valves, Acute Myocardial Infarction to prevent systemic embolism, Valvular Heart Disease, and Atrial Fibrillation) ----- INR of 2.5 - 3.5 : - Mechanical Prosthetic Valves (high risk) - If oral anticoagulant therapy is used to prevent Myocardial Infarction Interpretation and review of laboratory results Abnormal [facility] [id number] 07-29-2023 [id number] Normal [facility] Anesthesia Noteon 07-29-2023 Anesthesia Note Normal [facility] BASIC METABOLIC PANELon - Anion gap [Moles/Vol] 6 mmol/L Normal 3-13 [facility] Comment on above: Performed By: #### L AB15 ####Labor And Delivery Nurse: MASON ARMENTA ([id number])[facility] ([facility])[address] [place] [address] Calcium [Mass/Vol] 8.1 mg/dL Low 8.4-10.4 [facility] Comment on above: Performed By: #### L AB15 ####Labor And Delivery Nurse: MASON ARMENTA ([id number])[facility] ([facility])[address] [place] [address] Chloride [Moles/Vol] 106 mmol/L Normal 98-107 [facility] Comment on above: Performed By: #### L AB15 ####Labor And Delivery Nurse: MASON ARMENTA ([id number])[facility] ([facility])[address] [place] [address] CO2 [Moles/Vol] 22 mmol/L Normal 22-30 [facility] Comment on above: Performed By: #### L AB15 ####Labor And Delivery Nurse: MASON ARMENTA ([id number])[facility] ([facility])[address] [place] [address] Creatinine [Mass/Vol] 0.81 mg/dL Normal 0.66-1.25 [facility] Comment on above: Performed By: #### L AB15 ####Labor And Delivery Nurse: MASON ARMENTA ([phone])[facility])[address] [place] [address] GLOMERULAR FILTRATION RATE ML/MIN/1.73 SQ M.PREDICTED >90.0 Normal >60.0 [facility] Comment on above: Result Comment: Calc ulation based on the Chronic Kidney Disease Epidemiology Collaboration (CKD-EPI) equation refit without adjustment for race Performed By: #### L AB15 ####Labor And Delivery Nurse: MASON ARMENTA ([id number])[facility] ([facility])[address] [place] [address] Glucose [Mass/Vol] 117 mg/dL High 70-100 [facility] Comment on above: Performed By: #### L AB15 ####Labor And Delivery Nurse: MASON ARMENTA ([id number])[facility])[address] [place] [address] Potassium [Moles/Vol] 4.2 mmol/L Normal 3.5-5.1 [facility] Comment on above: Performed By: #### L AB15 ####Labor And Delivery Nurse: MASON ARMENTA ([id number])[facility] ([facility])[address] [place] [address] Sodium [Moles/Vol] 134 mmol/L Low 135-145 [facility] Comment on above: Performed By: #### L AB15 ####Labor And Delivery Nurse: MASON ARMENTA ([id number])[facility] ([facility])[address] [place] [address] Urea nitrogen [Mass/Vol] 23 mg/dL High 9-20 [facility] Comment on above: Performed By: #### L AB15 ####Labor And Delivery Nurse: MASON ARMENTA ([phone])[facility] ([facility])[address] [place] [address] Basic metabolic 1998 panelon 07-29-2023 Anion gap [Moles/Vol] 6 mmol/L 3 - 13 mmol/L [place] Calcium [Mass/Vol] 8.1 mg/dL Low 8.4 - 10. 4 mg/dL [place] Chloride [Moles/Vol] 106 mmol/L 98 - 10 7 mmol/L [place] CO2 [Moles/Vol] 22 mmol/L 22 - 30 mmol/L [place] Creatinine [Mass/Vol] 0.81 mg/dL 0.66 - 1.25 mg/dL [place] GFR/1.73 sq M.predicted MDRD (S/P/Bld) [Vol rate/Area] - PINF [place] Comment on above: Calculation based on the Chronic Kidney Disease Epidemiology Collaboration (CKD-EPI) equation refit without adjustment for race Glucose [Mass/Vol] 117 mg/dL High 70 - 100 mg/dL [place] Interpretation and review of laboratory results Abnormal [place] Potassium [Moles/Vol] 4.2 mmol/L 3.5 - 5.1 mmol/L [place] Sodium [Moles/Vol] 134 mmol/L Low 135 - 145 mmol/L [place] Urea nitrogen [Mass/Vol] 23 mg/dL High 9 - 20 mg/dL [facility] CBC (HEMOGRAM)on 07-29-2023 Erythrocyte distribution width (RBC) [Ratio] 17.2 % High 11.5-15.0 [facility] Comment on above: Performed By: #### L [id number] ####Labor And Delivery Nurse: MASON ARMENTA ([id number])[facility])[address] [place] [address] Hematocrit (Bld) [Volume fraction] 30.8 % Low 40.0-52.0 [facility] Comment on above: Performed By: #### L [id number] ####Labor And Delivery Nurse: MASON ARMENTA ([id number])[facility])[address] [place] [address] Hemoglobin (Bld) [Mass/Vol] 10.2 g/dL Low 13.0-18.0 [facility] Comment on above: Performed By: #### L [id number] ####Labor And Delivery Nurse: MASON ARMENTA ([phone])[facility])[address] [place] [address] IPF 4 Normal [facility] Comment on above: Performed By: #### L [id number] ####Labor And Delivery Nurse: MASON ARMENTA ([phone])[facility])[address] [place] [address] MCH (RBC) [Entitic mass] 30.4 pg Normal 26.0-34.0 [facility] Comment on above: Performed By: #### L [id number] ####Labor And Delivery Nurse: MASON ARMENTA ([id number])[facility])[address] [place] [address] MCHC 33.1 % Normal 30.5-36.0 [facility] Comment on above: Performed By: #### L [id number] ####Labor And Delivery Nurse: MASON ARMENTA ([phone])[facility])[address] [place] [address] MCV (RBC) [Entitic vol] 91.9 fL Normal 77.0-99.0 S [facility] Comment on above: Performed By: #### L [id number] ####Labor And Delivery Nurse: MASON ARMENTA ([id number])[facility])[address] [place] [address] Platelet mean volume (Bld) [Entitic vol] 12.5 fL Normal 9.0-12.7 [facility] Comment on above: Performed By: #### L [id number] ####Labor And Delivery Nurse: MASON ARMENTA ([id number])[facility])[address] [place] [address] Platelets (Bld) [#/Vol] 93 10*3/uL Low 140-440 S [facility] Comment on above: Performed By: #### L [id number] ####Labor And Delivery Nurse: MASON ARMENTA ([id number])[facility])[address] [place] [address] RBC (Bld) [#/Vol] 3.35 10*6/uL Low 4.40-5.90 [facility] Comment on above: Performed By: #### L [id number] ####Labor And Delivery Nurse: MASON ARMENTA ([id number])[facility])[address] [place] [address] WBC (Bld) [#/Vol] 6.2 10*3/uL Normal 3.6-10.7 [facility] Comment on above: Performed By: #### L [id number] ####Labor And Delivery Nurse: MASON ARMENTA ([id number])[facility])[address] [place] [address] CBC panel Auto (Bld)on 07-28 Erythrocyte distribution width (RBC) [Ratio] 17.2 % High 11.5 - 15.0 % [place] Hematocrit (Bld) [Volume fraction] 30.8 % Low 40.0 - 52.0 % [place] Hemoglobin (Bld) [Mass/Vol] 10.2 g/dL Low 13.0 - 18.0 g/dL [place] Interpretation and review of laboratory results Abnormal [place] IPF 4 [place] MCH (RBC) [Entitic mass] 30.4 pg 26.0 - 34.0 pg [place] MCHC (RBC) [Mass/Vol] 33.1 % 30.5 - 36.0 % [place] MCV (RBC) [Entitic vol] 91.9 fL 77.0 - 99.0 fL [place] Platelet mean volume (Bld) [Entitic vol] 12.5 fL 9.0 - 12.7 fL [place] Platelets (Bld) [#/Vol] 93 10*3/uL Low 140 - 440 10*3/uL [place] RBC (Bld) [#/Vol] 3.35 10*6/uL Low 4.40 - 5.90 10*6/uL [place] WBC (Bld) [#/Vol] 6.2 10*3/uL 3.6 - 10.7 10*3/uL [facility] IDNon 07-29-2023 IDN Normal [facility] Laboratory - Coagulationon 0 07-29-2023 PT Coag (Bld) [Time] 12.4 s High 9.0 - 1 2.0 s [place] No Panel Informationon 07-28 Aortic Sinus Valsalva 3.4 cm [facility] Aortic Sinus Valsalva Index 1.87 cm/m2 [place] Ascending Aorta 3.3 cm [place] Ascending Aorta Index 1.81 cm/m2 [facility] Sinotubular Junction 2.9 cm [facility] Addendum by Aleta Lopes MD on 07/30/2023 10:06 AM EDT Left Ventricle: Left ventricle is moderately dilated. Normal wall thickness. Normal left ventricular systolic function. The EF by visual approximation is 60%. Normal wall motion. 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 Right Ventricle: Right ventricle is moderately dilated. Pacemaker lead present in the right ventricle. Moderately reduced systolic function. Mitral Valve: A Medtronic bioprosthetic valve size of 29 mm is well seated in the mitral valve position. Successful plug inserion in the paravalvular leak orifice which was located at the posterior medial aspect of the mitral valve annulus. There was improvement in paravalvualr leak from severe at baseline down to moderate after 1 plug insertion. Note was made of the devleopment of a small early thrombus formation within the pseudoaneurysm during the procedure. Anticoagulation dose was increased and on reassessment, this finding resolved by the end of the procedure. Left Ventricle Left ventricle is moderately dilated. Normal wall thickness. Normal left ventricular systolic function. The EF by visual approximation is 60%. Normal wall motion. 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 Right Ventricle Right ventricle is moderately dilated. Pacemaker lead present in the right ventricle.Moderately reduced systolic function. Left Atrium Left atrium is severely dilated. Normal appendage flow velocity. No left atrial appendage thrombus noted. Normal pulmonary vein connection involving the right superior and left superior veins. Systolic flow reversal in the pulmonary veins. Right Atrium Right atrium is severely dilated. Pacemaker lead present in the right atrium. IVC/SVC IVC is dilated. Lead present in the SVC. Mitral Valve A Medtronic bioprosthetic valve size of 29 mm is well seated in the mitral valve position. Successful plug inserion in the paravalvular leak orifice which was located at the posterior medial aspect of the mitral valve annulus. There was improvement in paravalvualr leak from severe at baseline down to moderate after 1 plug insertion. No stenosis noted. Tricuspid Valve Valve structure is normal. Mild (1+) regurgitation. Aortic Valve Trileaflet. No regurgitation. No stenosis. Pulmonic Valve Valve structure is normal. Trace regurgitation. Ascending Aorta Normal sized sinuses of Valsalva and ascending aorta. There is moderate and non-protruding atherosclerosis in the descending aorta. Pericardium The pericardium is normal. No pericardial effusion. Study Details Image quality: excellent. Images have been saved and databased. Heart rate: 70 bpm. Blood pressure: 103/67 mmHg. The underlying ECG rhythm was sinus rhythm. Cardiac history: prosthetic valve. GALO probe number: 1. GALO probe was inserted by the antique furniture repairer with minimal difficulty. No topical anesthesic. No complications. GALO probe was removed. No contrast was given. See anesthesia notes for medications given. Structural Heart Pre Procedure Findings MV bioprosthesis with paravalvular leak (measured by GALO at 0.7 x 0.6 cm) and secondary severe 4+ paravalvular regurgitation. [facility] Nursing Noteon 03-13-2024 Nursing Note Notified OR control desk that patient has cardiac pacemaker Normal [facility] Op Noteon 07-29-2023 Op Note Normal [facility] PROTHROMBIN TIMEon INR Coag (PPP) [Relative time] 1.2 {INR} High 0.9-1.1 [facility] Comment on above: Order Comment: If pa tient on coumadin within 4 days prior. Result Comment: Guille mmended Anticoagulant Therapy: SEE BELOW----- INR of 2.0 - 3.0 : - Prophylaxis of Venous Thrombosis (high-risk surgery) - Treatment of Venous Thrombosis - Treatment of Pulmonary Embolism (Includes tissue heart valves, Acute Myocardial Infarction to prevent systemic embolism, Valvular Heart Disease, and Atrial Fibrillation)----- INR of 2.5 - 3.5 : - Mechanical Prosthetic Valves (high risk) - If oral anticoagulant therapy is used to prevent Myocardial Infarction Performed By: #### Prince [id number] ####Labor And Delivery Nurse: MASON ARMENTA ([id number])[facility])[address] [place] [address] PT Coag (PPP) [Time] 12.4 s High 9.0-12.0 [facility] Comment on above: Order Comment: If pa tient on coumadin within 4 days prior. Performed By: #### L [id number] ####Labor And Delivery Nurse: MASON ARMENTA ([id number])[facility] ([facility])[address] [place] [address] PT Coag (Bld) [Time]on 07-28 INR Coag (PPP) [Relative time] 1.2 {INR} High 0.9 - 1.1 [place] Comment on above: Recommended Anticoag ulant Therapy: SEE BELOW ----- INR of 2.0 - 3.0 : - Prophylaxis of Venous Thrombosis (high-risk surgery) - Treatment of Venous Thrombosis - Treatment of Pulmonary Embolism (Includes tissue heart valves, Acute Myocardial Infarction to prevent systemic embolism, Valvular Heart Disease, and Atrial Fibrillation) ----- INR of 2.5 - 3.5 : - Mechanical Prosthetic Valves (high risk) - If oral anticoagulant therapy is used to prevent Myocardial Infarction Interpretation and review of laboratory results Abnormal [facility] US Heart Transthoracicon Ao Root Index 2.03 cm/m2 [place] Aortic Root 3.7 cm [place] Ascending Aorta 3.3 cm [place] Ascending Aorta Index 1.81 cm/m2 Sum [facility] AV Area by Peak Velocity 2.4 cm2 [place] AV Area by VTI 2.5 cm2 [facility] PSYLIN NEUROSCIENCES AV AT 79.92 ms [facility] AV Mean Gradient 4 mmHg [facility] AV Mean Velocity 0.9 m/s [place] AV Peak Gradient 7 mmHg [place] AV Peak Velocity 1.4 m/s [place] AV Velocity Ratio 0.57 [place] AV VTI 32.6 cm [place] TIARA/BSA Peak Velocity 1.3 cm2/m2 Sum ma [facility] TIARA/BSA VTI 1.4 cm2/m2 [facility] PSYLIN NEUROSCIENCES EF BP 44 % Abnormal 55 - 100 % [place] Est. RA Pressure 8 mmHg [place] Fractional Shortening 2D 27 % 28 - 44 % [place] Interpretation and review of laboratory results Abnormal [place] IVC Diameter 1.7 cm [place] IVSd 1.7 cm Abnormal 0.6 - 1.0 cm [place] LA Diameter 4.2 cm [place] LA Size Index 2.31 cm/m2 [facility] [place] Volume 2C 40 mL 18 - 58 mL [facility] [place] Volume 4C 59 mL Abnormal 18 - 58 mL [place] LA Volume A/L 58 mL [place] LA Volume BP 50 mL 18 - 58 mL [place] LA Volume Index 2C 22 mL/m2 16 - 34 mL/m2 [facility] [place] Volume Index 4C 32 mL/m2 16 - 34 mL/m2 [place] LA Volume Index A/L 32 mL/m2 16 - 34 mL/m2 [place] Volume Index BP 27 ml/m2 16 - 34 ml/m2 [facility] LA/AO Root Ratio 1.14 [facility] LV EDV A2C 131 mL [facility] LV EDV A4C 128 mL [place] EDV BP 130 mL 67 - 155 mL [place] LV EDV Index A2C 72 mL/m2 [place] LV EDV Index A4C 70 mL/m2 [facility] LV EDV Index BP 71 mL/m2 [facility] LV Ejection Fraction A2C 39 % [place] LV Ejection Fraction A4C 70 % [place] LV ESV A2C 80 mL [place] LV ESV A4C 38 mL [place] LV ESV BP 73 mL Abnormal 22 - 58 mL [place] LV ESV Index A2C 44 mL/m2 [place] LV ESV Index A4C 21 mL/m2 [place] LV ESV Index BP 40 mL/m2 [place] LV Mass 2D 312.9 g Abnormal 88 - 224 g [place] LV Mass 2D Index 171.9 g/m2 Abnormal 49 - 115 g/m2 [place] LV RWT Ratio 0.53 [place] LVIDd 4.9 cm 4.2 - 5.9 cm [place] LVIDd Index 2.69 cm/m2 [place] LVIDs 3.6 cm [place] LVIDs Index 1.98 cm/m2 [place] LVOT Area 4.2 cm2 [place] LVOT Cardiac Output 5.8 liter/mi nu te [place] LVOT Diameter 2.3 cm [place] LVOT Mean Gradient 1 mmHg [place] LVOT Peak Gradient 2 mmHg [place] LVOT Peak Velocity 0.8 m/s [place] LVOT Stroke Volume Index 44.3 mL/m2 [place] LVOT SV 80.6 ml [place] LVOT VTI 19.4 cm [place] LVOT:AV VTI Index 0.60 [place] LVPWd 1.3 cm Abnormal 0.6 - 1.0 cm [place] MV Area by VTI 1.6 cm2 [place] MV Max Velocity 2.1 m/s [place] MV Mean Gradient 7 mmHg [place] MV Mean Velocity 1.2 m/s [place] MV Peak Gradient 18 mmHg [place] MV VTI 51.5 cm [place] MV:LVOT VTI Index 2.65 [place] RA Area 4C 48.2 mL [place] RA Area 4C 49.9 mL [place] RV Basal Dimension 4.0 cm [place] RV Free Wall Peak S' 5 cm/s [facility] RV Mid Dimension 1.9 cm [place] RVSP 53 mmHg [place] TAPSE 0.8 cm Abnormal 1.7 cm [place] TR Max Velocity 3.34 m/s [place] TR Peak Gradient 51 mmHg [place] Left Ventricle: Left ventricle size is normal. Moderately increased wall thickness. Severe septal thickening. Normal left ventricular systolic function. The EF by visual approximation is 55%. Normal wall motion. Right Ventricle: Right ventricle size is normal. Moderately reduced systolic function. Mitral Valve: Medtronic bioprosthetic valve that is well-seated with normal leaflet motion with a size of 29 mm. MV mean gradient is 7 mmHg. Heart rate 70 bpm at time of measurements. Tricuspid Valve: RVSP is 53 mmHg. Left Atrium: Left atrium is mildly dilated. Left Ventricle Left ventricle size is normal. Moderately increased wall thickness. Severe septal thickening. Normal left ventricular systolic function. The EF by visual approximation is 55%. Normal wall motion. Indeterminate diastolic function due to mitral valve surgery. Right Ventricle Right ventricle size is normal. Moderately reduced systolic function. Left Atrium Left atrium is mildly dilated. Right Atrium Right atrium size is normal. IVC/SVC IVC diameter is normal and decreases less than 50% during inspiration; therefore the estimated right atrial pressure is intermediate (~8 mmHg). Mitral Valve Medtronic bioprosthetic valve that is well-seated with normal leaflet motion with a size of 29 mm. Mild (1+) regurgitation. MV mean gradient is 7 mmHg. Heart rate 70 bpm at time of measurements. Tricuspid Valve Valve structure is normal. Mild (1+) regurgitation. RVSP is 53 mmHg. Aortic Valve Trileaflet. No cusp thickening. No cusp calcification. Cusp sclerosis. No regurgitation. No stenosis. Pulmonic Valve Valve structure is normal. Trace regurgitation. Ascending Aorta Normal sized sinuses of Valsalva and ascending aorta. Pericardium No pericardial effusion. Septum No interatrial shunt visualized on color Doppler. Study Details Image quality: suboptimal. Heart rate: 70 bpm. Blood pressure: 106/59 mmHg. No contrast was given. Wall Scoring Baseline Score Index: 1.00 The left ventricular wall motion is normal. CV CPACS [place] 36on 07-28-2023 [address] Nicholas, signed GALO for interventional guidance order [facility] 36 Lab called b/c there is no order for the GALO. Also Marianne not on for tomorrow. He said he would do the GALO, correct? [place] [id number] [facility] No Panel Informationon 07-27 Crossmatch interpretation COMP [place] Dispense Status Crossmatch [facility] Product Blood Type 5100 [facility] PRODUCT CODE [id number] [facility] Unit ABO O [place] Unit RH Positive [place] Unit Volume 300 mL [place] Prepare RBCon 07-28-2023 Blood Expiration Date [id number] [facility] Blood Expiration Date [id number] [facility] Unit Number [id number] [place] Unit Number [id number] [facility] 36on 07-27-2023 36 Normal [facility] 36on 07-24-2023 36 Records from [facility] scanned under Media Normal [facility] Anesthesia Noteon 07-23-2023 Anesthesia Note Normal [facility] XR Chest 2 Viewson 4 Pleural thickening a nd scarring in the right lower hemithorax. No consolidation or significant pleural fluid collection. Report Dictated on Electronically Signed By: Zac Allen MD Electronically Signed Date/Time: 07/17/2023 8:47 AM EST [facility] Patient Name: BRIANNE VALLECILLO : 1955 Exam Date/Time: 07/16/2023 09:54 Procedure: XR CHEST 2 VIEWS Ordering Provider: LEONARDO MICHELLE Reason For Exam: aortic stenosis CHEST: CLINICAL INDICATION: Aortic stenosis. Prosthetic cardiac valve leak TECHNIQUE: PA and Lateral COMPARISON: 11/19/[address] abdomen pelvis from 10/08/2014 FINDINGS: Heart size is normal. Prosthetic cardiac valves are noted along with a left-sided permanent pacemaker. There is atherosclerotic calcification of the aorta. Increased density is noted along the chest wall right lower hemithorax with blunting of the lateral costophrenic angle with some elongated opacities in lower hemithorax. No other consolidation or atelectasis is noted on the left. Left costophrenic angle is sharp. Sternal wires are present. There is anterior wedge fracture deformity of an L1, unchanged from 2015. [facility] Zac Allen MD - 07/17/2023 Patient Name: BRIANNE WALLS : 1955 Exam Date/Time: 07/16/2023 09:54 Procedure: XR CHEST 2 VIEWS Ordering Provider: LEONARDO MICHELLE Reason For Exam: aortic stenosis CHEST: CLINICAL INDICATION: Aortic stenosis. Prosthetic cardiac valve leak TECHNIQUE: PA and Lateral COMPARISON: 11/19/[address] abdomen pelvis from 10/08/2014 FINDINGS: Heart size is normal. Prosthetic cardiac valves are noted along with a left-sided permanent pacemaker. There is atherosclerotic calcification of the aorta. Increased density is noted along the chest wall right lower hemithorax with blunting of the lateral costophrenic angle with some elongated opacities in lower hemithorax. No other consolidation or atelectasis is noted on the left. Left costophrenic angle is sharp. Sternal wires are present. There is anterior wedge fracture deformity of an L1, unchanged from 2015. IMPRESSION: Pleural thickening and scarring in the right lower hemithorax. No consolidation or significant pleural fluid collection. Report Dictated on Electronically Signed By: Zac Allen MD Electronically Signed Date/Time: 07/17/2023 8:47 AM EST [facility] XR Chest 2 ViewsOrdered By: Zac Allen on 07-17-2023 [facility] Work Phone: A variant subtype Ab Qlon [place] ANTIBODY IDENTIFICATIONon ANTIBODY IDENTIFICATION E Normal S [facility] Comment on above: Performed By: #### L [id number], [id number], [id number], [id number] ####Labor And Delivery Nurse: MASON ARMENTA ([phone])[facility] ([facility])[address] [place] [address] Antibody identificationon A variant subtype Ab Ql E [facility] BLOOD TYPE AND SCREEN GELon 07-16-2023 ABO GROUPING B Normal [facility] Comment on above: Performed By: #### L [id number], [id number], [id number], [id number] ####Labor And Delivery Nurse: MASON ARMENTA ([id number])[facility] ([facility])[address] [place] [address] RH TYPE IN BLOOD Positive Normal [facility] Comment on above: Performed By: #### L [id number], [id number], [id number], [id number] ####Labor And Delivery Nurse: MASON ARMENTA ([phone])[facility] ([facility])[address] [place] [address] Blood type and Crossmatch patricio jones (Bld)on 07-16-2023 ABO group Nom (Bld) B [place] Blood group antibody screen GEL Ql Positive [facility] D Ag Ql (RBC) Positive [facility] CBC W Auto Differential pane l (Bld)Ordered By: Manjeet Swab on 07-16-2023 Basophils (Bld) [#/Vol] 0.0 10*3/uL 0.0 - 0.2 10*3/uL [place] Basophils/100 WBC (Bld) 0.7 % 0.0 - 2.0 % [place] Eosinophils (Bld) [#/Vol] 0.3 10*3/uL 0.0 - 0.5 10*3/uL [place] Eosinophils/100 WBC (Bld) 4.1 % 0.0 - 6.0 % [place] Erythrocyte distribution width (RBC) [Ratio] 17.1 % High 11.5 - 15.0 % [place] Hematocrit (Bld) [Volume fraction] 33.7 % Low 40.0 - 52.0 % [place] Hemoglobin (Bld) [Mass/Vol] 10.8 g/dL Low 13.0 - 18.0 g/dL [place] Immature granulocytes (Bld) [#/Vol] 0.0 10*3/uL NINF - 0.1 10*3/uL [facility] Immature granulocytes/100 WBC (Bld) 0.7 % 0.0 - 2.0 % [place] Interpretation and review of laboratory results Abnormal [place] IPF 5 [facility] Lymphocytes (Bld) [#/Vol] 0.9 10*3/uL Low 1.0 - 4.3 10*3/uL [place] Lymphocytes/100 WBC (Bld) 14.3 % Low 15.0 - 45.0 % [place] MCH (RBC) [Entitic mass] 29.8 pg 26.0 - 34.0 pg [facility] MCHC (RBC) [Mass/Vol] 32.0 % 30.5 - 36.0 % [place] MCV (RBC) [Entitic vol] 92.8 fL 77.0 - 99.0 fL [place] Monocytes (Bld) [#/Vol] 0.9 10*3/uL 0.0 - 0.9 10*3/uL [place] Monocytes/100 WBC (Bld) 14.5 % High 5.0 - 13.0 % [place] Neutrophils (Bld) [#/Vol] 4.1 10*3/uL 1.8 - 7.5 10*3/uL [place] Neutrophils/100 WBC (Bld) 65.7 % 38.0 - 82.0 % [place] Nucleated RBC/100 WBC (Bld) [Ratio] 0.0 % [place] Platelet mean volume (Bld) [Entitic vol] [place] Comment on above: UNABLE TO RESULT MPV . Platelets (Bld) [#/Vol] 122 10*3/uL Low 140 - 440 10*3/uL [place] RBC (Bld) [#/Vol] 3.63 10*6/uL Low 4.40 - 5.90 10*6/uL [place] WBC (Bld) [#/Vol] 6.2 10*3/uL 3.6 - 10.7 10*3/uL [facility] CBC WITH AUTO DIFFERENTIALon 07-16-2023 Basophils (Bld) [#/Vol] 0.0 10*3/uL Normal 0.0-0.2 [facility] Comment on above: Performed By: #### L [id number] ####Labor And Delivery Nurse: MASON ARMENTA ([phone])[address] Basophils/100 WBC (Bld) 0.7 % Normal 0.0-2.0 [facility] Comment on above: Performed By: #### L [id number] ####Labor And Delivery Nurse: MASON ARMENTA ([phone])[facility])[address] [place] [address] Eosinophils (Bld) [#/Vol] 0.3 10*3/uL Normal 0.0-0.5 [facility] Comment on above: Performed By: #### L [id number] ####Labor And Delivery Nurse: MASON ARMENTA ([phone])[facility])[address] [place] [address] Eosinophils/100 WBC (Bld) 4.1 % Normal 0.0-6.0 [facility] Comment on above: Performed By: #### L [id number] ####Labor And Delivery Nurse: MASON ARMENTA ([phone])[facility])[address] [place] [address] Erythrocyte distribution width (RBC) [Ratio] 17.1 % High 11.5-15.0 [facility] Comment on above: Performed By: #### L [id number] ####Labor And Delivery Nurse: MASON ARMENTA ([id number])[address] Hematocrit (Bld) [Volume fraction] 33.7 % Low 40.0-52.0 [facility] Comment on above: Performed By: #### L [id number] ####Labor And Delivery Nurse: MASON ARMENTA ([phone])[facility])[address] [place] [address] Hemoglobin (Bld) [Mass/Vol] 10.8 g/dL Low 13.0-18.0 [facility] Comment on above: Performed By: #### L [id number] ####Labor And Delivery Nurse: MASON ARMENTA ([phone])[address] IMMATURE GRANS % 0.7 % Normal 0.0-2.0 [facility] Comment on above: Performed By: #### L [id number] ####Labor And Delivery Nurse: MASON ARMENTA ([phone])[facility])[address] [place] [address] IMMATURE GRANS ABSOLUTE 0.0 10*3/uL Normal <0.1 [facility] Comment on above: Performed By: #### L [id number] ####Labor And Delivery Nurse: MASON ARMENTA ([phone])[place] [address] [place] IPF 5 Normal [facility] Comment on above: Performed By: #### L [id number] ####Labor And Delivery Nurse: MASON ARMENTA ([phone])[facility])[address] [place] [address] Lymphocytes (Bld) [#/Vol] 0.9 10*3/uL Low 1.0-4.3 [facility] Comment on above: Performed By: #### L [id number] ####Labor And Delivery Nurse: MASON ARMENTA ([phone])[facility])[address] [place] [address] Lymphocytes/100 WBC (Bld) 14.3 % Low 15.0-45.0 [facility] Comment on above: Performed By: #### L [id number] ####Labor And Delivery Nurse: MASON ARMENTA ([phone])[facility])[address] [place] [address] MCH (RBC) [Entitic mass] 29.8 pg Normal 26.0-34.0 [facility] Comment on above: Performed By: #### L [id number] ####Labor And Delivery Nurse: MASON ARMENTA ([phone])[facility])[address] [place] [address] MCHC 32.0 % Normal 30.5-36.0 [facility] Comment on above: Performed By: #### L [id number] ####Labor And Delivery Nurse: MASON ARMENTA ([phone])[facility])[address] [place] [address] MCV (RBC) [Entitic vol] 92.8 fL Normal 77.0-99.0 [facility] Comment on above: Performed By: #### L [id number] ####Labor And Delivery Nurse: MASON ARMENTA ([phone])[facility])[address] [place] [address] Monocytes (Bld) [#/Vol] 0.9 10*3/uL Normal 0.0-0.9 [facility] Comment on above: Performed By: #### L [id number] ####Labor And Delivery Nurse: MASON ARMENTA ([phone])[facility])[address] [place] [address] Monocytes/100 WBC (Bld) 14.5 % High 5.0-13.0 [facility] Comment on above: Performed By: #### L [id number] ####Labor And Delivery Nurse: MASON ARMENTA ([id number])[facility] ([facility])[address] [place] [address] MPV Normal [facility] Comment on above: Result Comment: UNAB LE TO RESULT MPV. Performed By: #### L [id number] ####Labor And Delivery Nurse: MASON ARMENTA ([phone])[facility] ([facility])[address] [place] [address] NEUTROPHILS ABSOLUTE 4.1 10*3/uL Normal 1.8-7.5 [facility] Comment on above: Performed By: #### L [id number] ####Labor And Delivery Nurse: MASON ARMENTA ([phone])[facility] ([facility])[address] [place] [address] Neutrophils/100 WBC (Bld) 65.7 % Normal 38.0-82.0 [facility] Comment on above: Performed By: #### L [id number] ####Labor And Delivery Nurse: MASON ARMENTA ([phone])[facility] ([facility])[address] [place] [address] NRBC 0.0 /100 WBCs Normal 0.0-2.0 [facility] Comment on above: Performed By: #### L [id number] ####Labor And Delivery Nurse: MASON ARMENTA ([phone])[facility] ([facility])[address] [place] [address] Platelets (Bld) [#/Vol] 122 10*3/uL Low 140-440 [facility] Comment on above: Performed By: #### L [id number] ####Labor And Delivery Nurse: MASON ARMENTA ([phone])[facility] ([facility])[address] [place] [address] [place] RBC (Bld) [#/Vol] 3.63 10*6/uL Low 4.40-5.90 [facility] Comment on above: Performed By: #### L [id number] ####Labor And Delivery Nurse: MASON ARMENTA ([phone])[facility])[address] [place] [address] WBC (Bld) [#/Vol] 6.2 10*3/uL Normal 3.6-10.7 [facility] Comment on above: Performed By: #### L [id number] ####Labor And Delivery Nurse: MASON ARMENTA ([phone])[facility] ([facility])[address] [place] [address] COMPREHENSIVE METABOLIC PANE Sumit 07-16-2023 Albumin [Mass/Vol] 4.0 g/dL Normal 3.5-5.0 [facility] Comment on above: Performed By: #### L [id number], [id number] ####Labor And Delivery Nurse: MASON ARMENTA ([phone])[facility] ([facility])[address] [place] [address] ALP [Catalytic activity/Vol] 136 U/L High 38-126 [facility] Comment on above: Performed By: #### L [id number], [id number] ####Labor And Delivery Nurse: MASON ARMENTA ([phone])[facility] ([facility])[address] [place] [address] ALT [Catalytic activity/Vol] 37 U/L Normal 0-49 [facility] Comment on above: Performed By: #### L [id number], [id number] ####Labor And Delivery Nurse: MASON ARMENTA ([phone])[facility] ([facility])[address] [place] [address] Anion gap [Moles/Vol] 9 mmol/L Normal 3-13 [facility] Comment on above: Performed By: #### L [id number], [id number] ####Labor And Delivery Nurse: MASON ARMENTA ([phone])[facility])[address] [place] [address] AST [Catalytic activity/Vol] 62 U/L High 15-46 [facility] Comment on above: Performed By: #### L [id number], [id number] ####Labor And Delivery Nurse: MASON ARMENTA ([phone])[facility])[address] [place] [address] Bilirubin [Mass/Vol] 1.1 mg/dL Normal 0.2-1.3 [facility] Comment on above: Performed By: #### L [id number], [id number] ####Labor And Delivery Nurse: MASON ARMENTA ([phone])[facility])[address] [place] [address] Calcium [Mass/Vol] 8.9 mg/dL Normal 8.4-10.4 [facility] Comment on above: Performed By: #### L [id number], [id number] ####Labor And Delivery Nurse: MASON ARMENTA ([id number])[facility])[address] [place] [address] Chloride [Moles/Vol] 100 mmol/L Normal 98-107 [facility] Comment on above: Performed By: #### L [id number], [id number] ####Labor And Delivery Nurse: MASON ARMENTA ([id number])[facility] ([facility])[address] [place] [address] CO2 [Moles/Vol] 29 mmol/L Normal 22-30 [facility] Comment on above: Performed By: #### L [id number], [id number] ####Labor And Delivery Nurse: MASON ARMENTA ([phone])[facility])[address] [place] [address] Creatinine [Mass/Vol] 1.06 mg/dL Normal 0.66-1.25 [facility] Comment on above: Performed By: #### L [id number], [id number] ####Labor And Delivery Nurse: MASON ARMENTA ([phone])[facility])[address] [place] [address] GLOMERULAR FILTRATION RATE ML/MIN/1.73 SQ M.PREDICTED 76.4 mL/min/1.73m*2 Normal >60.0 [facility] Comment on above: Result Comment: Calc ulation based on the Chronic Kidney Disease Epidemiology Collaboration (CKD-EPI) equation refit without adjustment for race Performed By: #### L [id number], [id number] ####Labor And Delivery Nurse: MASON ARMENTA ([phone])[facility])[address] [place] [address] Glucose [Mass/Vol] 71 mg/dL Normal 70-100 [facility] Comment on above: Performed By: #### L [id number], [id number] ####Labor And Delivery Nurse: MASON ARMENTA ([phone])[facility] ([facility])[address] [place] [address] Potassium [Moles/Vol] 4.0 mmol/L Normal 3.5-5.1 [facility] Comment on above: Performed By: #### L AB17, [id number] ####Labor And Delivery Nurse: MASON ARMENTA ([phone])[facility])[address] [place] [address] Protein [Mass/Vol] 7.4 g/dL Normal 6.3-8.2 [facility] Comment on above: Performed By: #### L AB17, [id number] ####Labor And Delivery Nurse: MASON ARMENTA ([phone])[facility] ([facility])[address] [place] [address] Sodium [Moles/Vol] 138 mmol/L Normal 135-145 [facility] Comment on above: Performed By: #### L [id number], [id number] ####Labor And Delivery Nurse: MASON ARMENTA ([phone])[facility])[address] [place] [address] Urea nitrogen [Mass/Vol] 27 mg/dL High 9-20 [facility] Comment on above: Performed By: #### L [id number], [id number] ####Labor And Delivery Nurse: MASON ARMENTA ([phone])[facility])[address] [place] [address] Comprehensive metabolic 1998 panelon 07-16-2023 Albumin [Mass/Vol] 4.0 g/dL 3.5 - 5.0 g/dL [place] ALP [Catalytic activity/Vol] 136 U/L High 38 - 126 U/L [place] ALT [Catalytic activity/Vol] 37 U/L 0 - 49 U/L [place] Anion gap [Moles/Vol] 9 mmol/L 3 - 13 mmol/L [place] AST [Catalytic activity/Vol] 62 U/L High 15 - 46 U/L [place] Bilirubin [Mass/Vol] 1.1 mg/dL 0.2 - 1 .3 mg/dL [place] Calcium [Mass/Vol] 8.9 mg/dL 8.4 - 10. 4 mg/dL [place] Chloride [Moles/Vol] 100 mmol/L 98 - 10 7 mmol/L [place] CO2 [Moles/Vol] 29 mmol/L 22 - 30 mmol/L [place] Creatinine [Mass/Vol] 1.06 mg/dL 0.66 - 1.25 mg/dL [place] GFR/1.73 sq M.predicted MDRD (S/P/Bld) [Vol rate/Area] 76.4 mL/min/{1.73_m2} - PINF [place] Comment on above: Calculation based on the Chronic Kidney Disease Epidemiology Collaboration (CKD-EPI) equation refit without adjustment for race Glucose [Mass/Vol] 71 mg/dL 70 - 100 mg/dL [place] Interpretation and review of laboratory results Abnormal [place] Potassium [Moles/Vol] 4.0 mmol/L 3.5 - 5.1 mmol/L [place] Protein [Mass/Vol] 7.4 g/dL 6.3 - 8.2 g/dL [place] Sodium [Moles/Vol] 138 mmol/L 135 - 145 mmol/L [place] Urea nitrogen [Mass/Vol] 27 mg/dL High 9 - 20 mg/dL [facility] E ANTIGENon 07-16-2023 E ANTIGEN Negative Normal [facility] Comment on above: Performed By: #### L [id number], [id number], [id number], [id number] ####Labor And Delivery Nurse: MASON ARMENTA ([phone])[facility] ([facility])[address] [place] [address] E Antigenon 07-16-2023 E Ag Ql (RBC) Negative [place] LITTLE C ANTIGENon LITTLE C ANTIGEN Positive Normal [facility] Comment on above: Performed By: #### L [id number], [id number], [id number], [id number] ####Labor And Delivery Nurse: MASON ARMENTA ([phone])[facility] ([facility])[address] [place] [address] Little C Antigenon 4 little c Ag Ql (RBC) Positive [facility] NT PRO BNPon 07-16-2023 Natriuretic peptide B (Bld) [Mass/Vol] 5270 pg/mL High <20-300 [facility] Comment on above: Performed By: #### L AB17, [id number] ####Labor And Delivery Nurse: MASON ARMENTA ([id number])[facility] ([facility])[address] [place] [address] Natriuretic peptide B [Mass/ Vol]on 07-16-2023 Interpretation and review of laboratory results Abnormal [place] Natriuretic peptide B (Bld) [Mass/Vol] 5270 pg/mL High <20 - 300 [facility] No Panel Informationon [place] Progress Noteon 07-16-2023 Progress Note Normal [facility] XR Chest 2 Viewson 4 Radiology Study observation (narrative) [place] 36on 06-30-2023 36 On Snapboard and calendars. Mailed appt reminders to patient. No prior auth req per Medicare A & B Normal [facility] 36 Normal [facility] 36on 06-29-2023 36 Normal [facility] 36 Verbally discussed C TA results w/ Dr. Nicholas, he will be meeting today w/vendor rep. Normal [facility] 36on 06-25-2023 36 I spoke w/ Sharri in radiology, she is awaiting a call back from Dr. Hanley. [facility] 36 Dr. Lopes notified , Sonya Leonardo CNP has talked w/ Dr. Nicholas. I left vm message for pt. Normal [facility] 36 Patient requesting i nfo on recent CT Normal [facility] CT HEART STRUCTURE MORPHOLOG Y W IV CONTRASTon 06-25-2023 CT HEART STRUCTURE MORPHOLOGY W IV CONTRAST Normal [facility] 36on 06-23-2023 36 Chart reviewed, wait ing on final CTA report. Spoke w/ Lisa in Radiology. [facility] 36on 06-15-2023 36 INR faxed to [phone] [facility] 36 BMP results reviewed , OK for pt to proceed w/ CTA as scheduled. Pt notified. [facility] 36on 06-12-2023 36 Normal [facility] 36 ----- Message from A roseanna Green PA-C sent at 06/12/2023 11:39 AM EST ----- This was ordered with his prep for proc to be completed on day of GALO with Dr. Stanley. Can you see why this was drawn today and where? Who is managing his warfarin? [facility] 36on 06-11-2023 36 Spoke w/pt, he will have labs done tomorrow in [place], reviewed CTA NPO instructions and oral hydration, verbalizes understanding. [facility] on 06-10-2023 36 Heart Valve Clinic a ppt yesterday, gated CTA w/ systolic phases ordered, Dr. Lopes to be present. Scheduled for 06/18/23 @ [address] [place] [address]. I left vm message for pt to call office. Email sent to Larry Bernal RT/Hill Mendoza. [facility] Progress Noteon 06-09-2023 Progress Note Normal [facility] 36on 06-08-2023 36 OV scheduled for 05/19 08/08 with PB, OWNER MANAGER letter/packed mailed, blue chart made [facility] [id number] 05-29-2023 [id number] [facility] Anesthesia Noteon 05-29-2023 Anesthesia Note Normal [facility] Anesthesia Note Normal [facility] US Heart TransesophagealOrde red By: [place] Stanley on 05-29-2023 Ascending Aorta 3.1 cm [facility] [employer] Work Phone: Ascending Aorta Index 1.68 cm/m2 [facility] Work Phone: MR VTI 152.6 cm [facility] [employer] Work Phone: MV Mean Gradient 4 mmHg [employer] Work Phone: MV Nyquist Velocity 33 cm/s [facility] Work Phone: MV Regurg Velocity PISA 5.2 m/s S [facility] [employer] Work Phone: [facility] Work Phone: US Heart Transesophagealon 0 05-29-2023 Left Ventricle: Left ventricle size is normal. Normal wall thickness. Normal left ventricular systolic function. The EF by visual approximation is 55%. Normal wall motion. Right Ventricle: Right ventricle size is normal. Pacemaker lead present in the right ventricle. Normal systolic function. Mitral Valve: Medtronic bioprosthetic valve that is well-seated with normal leaflet motion with a size of 29 mm. MV mean gradient is 4 mmHg. Severe (4+) paravalvular regurgitation that originates mid posterior with an eccentrically directed jet that wraps around the entirity of the left atrium. Systolic flow reversal in the pulmonary veins. PISA radius 1.0cm. EROA 0.4cm2. No stenosis noted. Tricuspid Valve: Tricuspid valve repaired by annuloplasty ring. Trace regurgitation. Left Ventricle Left ventricle size is normal. Normal wall thickness. Normal left ventricular systolic function. The EF by visual approximation is 55%. Normal wall motion. Right Ventricle Right ventricle size is normal. Pacemaker lead present in the right ventricle.Normal systolic function. Left Atrium Left atrium size is normal. Normal sized appendage. Normal appendage flow velocity. No left atrial appendage thrombus noted. No left atrial appendage mass noted. Possible attempt at prior ZINA ligation based on flow acceleration. Correalte to operative reports. Normal pulmonary vein connection involving the right superior and left superior veins. Systolic flow reversal in the pulmonary veins. Right Atrium Right atrium size is normal. Pacemaker lead present in the right atrium. IVC/SVC IVC was not assessed. Mitral Valve Medtronic bioprosthetic valve that is well-seated with normal leaflet motion with a size of 29 mm. MV mean gradient is 4 mmHg. Severe (4+) paravalvular regurgitation that originates mid posterior with an eccentrically directed jet that wraps around the entirity of the left atrium. Systolic flow reversal in the pulmonary veins. PISA radius 1.0cm. EROA 0.4cm2. No stenosis noted. Tricuspid Valve Tricuspid valve repaired by annuloplasty ring. Trace regurgitation. Aortic Valve Trileaflet. No regurgitation. No stenosis. Pulmonic Valve The pulmonic valve visualization is suboptimal but appears to be functioning normally. Trace regurgitation. Ascending Aorta Normal sized ascending aorta. Pericardium No pericardial effusion. Septum No interatrial shunt visualized on color Doppler. Pulmonary Artery Pulmonary artery was not assessed. Study Details Image quality: good. Additional technique includes 3D w/o workstation. Blood pressure: 112/78 mmHg. The underlying ECG rhythm was sinus rhythm. Cardiac history: prosthetic valve and valve repair. The procedure, risks and alternatives were explained. Informed consent was obtained. GALO probe number: 4. GALO probe was inserted by the antique furniture repairer with no difficulty. No complications. GALO probe was removed. No contrast was given. See anesthesia notes for medications given. CV CPACS HEMO 36on 05-27-2023 36 Prep for proc complete. Normal [place] [address] PT returned call & I gave him the instructions - pt had no questions [facility] [address] [place] [address] Pt scheduled for GALO with Dr Stanley on 05/29/2023 @ . Pts H&P/EKG/labs are UTD. Miya, please call with teach. Jona, please place surg/proc orders. Thank you!! [facility] 36 [place] [address] Spoke with patient regarding assistance for Jardiance. He is going to discuss income with and call us back with info. [facility] 36on 05-25-2023 36 [facility] 36 [facility] Anesthesia Noteon 05-25-2023 Anesthesia Note Sedation Plan Mallampati class: II - soft palate, uvula, fauces visible. Sedation plan: local anesthesia Risks, benefits, and alternatives discussed with patient. Normal [facility] Cardiac catheterization stud yon 05-25-2023 Severe mixed etiolog y pulmonary hypertension. PVR 6 Wood Units and PCW 22 mmHg. 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 Borderline cardiac index. Right Heart Cath [place]Yo[place] catheter inserted via right internal jugular vein. Severe pulmonary hypertension noted. Clinical Background Mr. 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 Hemodynamics Interpretation End Expiratory Hemodynamics RA: 14 mmHg RV: 85/14 mMHg PA: 88/27 (mean 48 mmHg) PCW 22 mmHg Cardiac output/index: 3.3 L/min / 1.87 L/min/m2 (Ary) Cardiac output/index: 4.2 L/min / 2.2 L/min/m2 (Ary) PVR 6 Wood Units. Cath Recommendations 1. Will proceed with GALO to better assess mitral valve 2. Restart furosemide and continue spironolactone 3. Start empagliflozin 10 mg per day. 4. Consider [id number] mitral valve replacement if indicated and after discussion with valve team. CV CPACS HEMO [place] No Panel Informationon 05-25 Performed by: [facility], [address] [place] [address] CLIA ID: [id number] Reportable Results: OxyHemoglobin 0 - 100% Expected Ranges: OxyHemoglobin Arterial Sample 95 - 100%* Adequate Oxygenation >=92% Venous sample 60 - 85%* Note: *OxyHemoglobin Reference Ranges based upon literature review Adequate oxygenation based upon [facility] Clinical Decision [facility] Performed by: [facility], [address] [place] [id number] CLIA ID: [id number] Reportable Results: OxyHemoglobin 0 - 100% Expected Ranges: OxyHemoglobin Arterial Sample 95 - 100%* Adequate Oxygenation >=92% Venous sample 60 - 85%* Note: *OxyHemoglobin Reference Ranges based upon literature review Adequate oxygenation based upon [facility] Clinical Decision [facility] Progress Noteon 05-25-2023 Progress Note Starting empaglifloz in for heart failure. Getting transesophageal echocardiogram to look for mitral valve stenosis. Normal [facility] Vital signson 05-25-2023 Oxygen saturation in Blood 46 % [facility] [employer] Oxygen saturation in Blood 47 % [place] 36on 05-19-2023 36 Orders placed withou t EKG - this was completed during OV Normal [facility] 36 PT scheduled for RHC with Dr Hobbs on 05/25/23 @ 8a. Pts H&P is UTD & pt will have labs @ [facility] on 05/20/23. Teach done in office. Selena, please place surg/proc orders and order for EKG day of Normal [facility] 36on 04-30-2023 36 Normal [facility] No Panel Informationon 04-30 Sinus rhythm LVH Left anterior fasicular block [facility] PATINSon 04-30-2023 PATINS Normal [facility] Progress Noteon 04-30-2023 Progress Note Normal [facility] Prothrombin Timeon 8 INR Coag RelTime (PPP) 0.93 s Normal 0.90-1.10 [facility] Comment on above: Result Comment: Guille mmended Anticoagulant Therapy: SEE BELOW----- INR of 2.0 - 3.0 : - Prophylaxis of Venous Thrombosis (high-risk surgery) - Treatment of Venous Thrombosis - Treatment of Pulmonary Embolism (Includes tissue heart valves, Acute Myocardial Infarction to prevent systemic embolism, Valvular Heart Disease, and Atrial Fibrillation)----- INR of 2.5 - 3.5 : - Mechanical Prosthetic Valves (high risk) - If oral anticoagulant therapy is used to prevent Myocardial Infarction Performed By: #### P T ####[address] [address] Prothrombin time (PT) Coag time (PPP) 9.4 s Normal 9.0-12.0 [facility] Comment on above: Performed By: #### P T ####[address] [address] Prothrombin Timeon 8 INR Coag RelTime (PPP) 1.15 s High 0.90-1.10 [facility] Comment on above: Result Comment: Guille mmended Anticoagulant Therapy: SEE BELOW----- INR of 2.0 - 3.0 : - Prophylaxis of Venous Thrombosis (high-risk surgery) - Treatment of Venous Thrombosis - Treatment of Pulmonary Embolism (Includes tissue heart valves, Acute Myocardial Infarction to prevent systemic embolism, Valvular Heart Disease, and Atrial Fibrillation)----- INR of 2.5 - 3.5 : - Mechanical Prosthetic Valves (high risk) - If oral anticoagulant therapy is used to prevent Myocardial Infarction Performed By: #### P T ####[address] [address] Prothrombin time (PT) Coag time (PPP) 11.6 s Normal 9.0-12.0 [facility] Comment on above: Performed By: #### P T ####[place] [address] Prothrombin Timeon 8 INR Coag RelTime (PPP) 1.64 s High 0.90-1.10 [facility] Comment on above: Result Comment: Guille mmended Anticoagulant Therapy: SEE BELOW----- INR of 2.0 - 3.0 : - Prophylaxis of Venous Thrombosis (high-risk surgery) - Treatment of Venous Thrombosis - Treatment of Pulmonary Embolism (Includes tissue heart valves, Acute Myocardial Infarction to prevent systemic embolism, Valvular Heart Disease, and Atrial Fibrillation)----- INR of 2.5 - 3.5 : - Mechanical Prosthetic Valves (high risk) - If oral anticoagulant therapy is used to prevent Myocardial Infarction Performed By: #### P T ####[place] [id number] Prothrombin time (PT) Coag time (PPP) 16.4 s High 9.0-12.0 [facility] Comment on above: Performed By: #### P T ####[place] [address] APTTon 11-20-2017 aPTT 63.6 s High 20.0-30.5 [facility] Comment on above: Result Comment: NOTE : The therapeutic time for Heparin anticoagulation,based on Xa activity inhibition, is an APTT of 46-80seconds. Performed By: #### A PTT ####[place] [address] Prothrombin Timeon 8 INR Coag RelTime (PPP) 3.98 s High 0.90-1.10 [facility] Comment on above: Result Comment: Guille mmended Anticoagulant Therapy: SEE BELOW----- INR of 2.0 - 3.0 : - Prophylaxis of Venous Thrombosis (high-risk surgery) - Treatment of Venous Thrombosis - Treatment of Pulmonary Embolism (Includes tissue heart valves, Acute Myocardial Infarction to prevent systemic embolism, Valvular Heart Disease, and Atrial Fibrillation)----- INR of 2.5 - 3.5 : - Mechanical Prosthetic Valves (high risk) - If oral anticoagulant therapy is used to prevent Myocardial Infarction Performed By: #### P T ####[facility] [place] [address] Prothrombin time (PT) Coag time (PPP) 38.6 s High 9.0-12.0 [facility] Comment on above: Performed By: #### P T ####[facility] [place] [address] CR Chest Portableon 11-20-19 18 CR Chest Portable Patient Name: BRIANNE VALLECILLO Diagnostic Radiology Exam Date/Time 11/19/2017 20:58:52 EDT Exam CR Chest Portable Ordering Physician CINDA MILLS, VIJAY Burleson Accession Number [id number] CPT4 Codes 98905 () Reason For Exam cough Report SINGLE FRONTAL VIEW OF THE CHEST CLINICAL INDICATION: cough TECHNIQUE: Single frontal view of the chest COMPARISON: 10/11/2014 FINDINGS: Bipolar pacemaker. Status post CABG. No vascular congestion. No effusion. Left costophrenic angle is incompletely visualized. IMPRESSION: 1. No acute finding. Report Dictated on Final Dictated: 11/19/2017 9:05 pm Dictating Physician: MD BARBA JOHN R Signed Date and Time: 11/19/2017 9:07 pm Signed by: MD BARBA JOHN R Transcribed Date and Time: 11/19/2017 9:05 Normal [facility] Comp Metabolic Panelon 11-19 Alanine aminotransferase (ALT) 48 U/L Normal 13-69 [facility] Comment on above: Performed By: #### H EMDF, CMP3, ETOH4 ####[facility] [employer] [id number] [place] [address] Alkaline phosphatase (ALP) 83 U/L Normal 38-126 [facility] Comment on above: Performed By: #### H EMDF, CMP3, ETOH4 ####[place] [id number] [facility] [address] Anion gap 9 Normal [facility] Comment on above: Performed By: #### H EMDF, CMP3, ETOH4 ####[facility] [facility] [address] Aspartate aminotransferase (AST) 61 U/L High 15-46 [facility] Comment on above: Performed By: #### H EMDF, CMP3, ETOH4 ####[place] [address] [address] [facility] [place] Bilirubin (total) 0.3 mg/dL Normal 0.2-1.3 [facility] Comment on above: Performed By: #### H EMDF, CMP3, ETOH4 ####[place] [address] [address] [facility] [place] Calcium 9.1 mg/dL Normal 8.4-10.4 [facility] Comment on above: Performed By: #### H EMDF, CMP3, ETOH4 ####[place] [address] [address] [facility] [place] CO2 29 mmol/L Normal 22-30 [facility] Comment on above: Performed By: #### H EMDF, CMP3, ETOH4 ####[facility] [facility] [place] Glucose mass conc 66 mg/dL Low 70-100 [facility] Comment on above: Performed By: #### H EMDF, CMP3, ETOH4 ####[place] [id number] [facility] [place] Protein 7.1 g/dL Normal 6.3-8.2 [facility] Comment on above: Performed By: #### H EMDF, CMP3, ETOH4 ####[place] [address] [facility] [address] Urea nitrogen 18 mg/dL Normal 7-20 [facility] Comment on above: Performed By: #### H EMDF, CMP3, ETOH4 ####[place] [address] [place], [place] Creatinine 1.11 mg/dL Normal 0.52-1.25 [facility] Comment on above: Performed By: #### H EMDF, CMP3, ETOH4 ####[place] [address] [place] eGFR (black) mL/min/{1.73_m2} Normal >60 [facility] Comment on above: Performed By: #### H EMDF, CMP3, ETOH4 ####[place] [address] [address] [place], [place] eGFR (non-black) mL/min/{1.73_m2} Normal >60 [facility] Comment on above: Result Comment: Sour ce- MDRD equation with creatinine calibration to IDMS(NKDEP) eGFR not recommended for drug dose adjustment Performed By: #### H EMDF, CMP3, ETOH4 ####[address] Albumin 4.3 g/dL Normal 3.5-5.0 [facility] Comment on above: Performed By: #### H EMDF, CMP3, ETOH4 ####[address] Chloride 104 mmol/L Normal 98-107 [facility] Comment on above: Performed By: #### H EMDF, CMP3, ETOH4 ####[address] Potassium molar conc 3.9 mmol/L Normal 3.5-5.1 [facility] Comment on above: Performed By: #### H EMDF, CMP3, ETOH4 ####[place] [address] [place], [place] Sodium 142 mmol/L Normal 137-145 [facility] Comment on above: Performed By: #### H EMDF, CMP3, ETOH4 ####[address] Drugs of Abuseon 11-19-2017 Benzodiazepines, Ur Negative Normal [facility] Comment on above: Performed By: #### D RGA4 ####[place] [address] [place] [address] Opiates, Ur Positive Normal [facility] Comment on above: Performed By: #### D RGA4 ####[place] [address] [place] [address] Phencyclidine (PCP), Ur Negative Normal [facility] Comment on above: Result Comment: The expected value for all of the drugs listedabove is Negative.The following drugs or drug groups have been screenedfor by Immunoassay at the following thresholds:Amphetamine class (1000 ng/mL), Barbiturates (200 ng/mL),Benzodiazepines (200 ng/mL), Cocaine (300 ng/mL),Methadone (300 ng/mL), Opiates (300 ng/mL),Oxycodone (100 ng/mL), and PCP (25 ng/mL).NOTE: These results are for medical treatment only.Analysis performed using non-forensic procedures. Performed By: #### D RGA4 ####[place] [address] [place] [address] Methadone, Ur Negative Normal [facility] Comment on above: Performed By: #### Belen RGA4 ####[place] [address] [facility] [place] [address] Cocaine, Ur Negative Normal [facility] Comment on above: Performed By: #### D RGA4 ####[place] [address] [facility] [place] [address] Amphetamines, Ur Negative Normal [facility] Comment on above: Performed By: #### D RGA4 ####[place] [address] [address] [facility] [place] [address] Barbiturates, Ur Negative Normal [facility] Comment on above: Performed By: #### D RGA4 ####[place] [address] [place] [address] Oxycodone/Oxymorphine,U r Negative Normal [facility] Comment on above: Performed By: #### D RGA4 ####[place] [address] [place] [address] Ethanol Serum/Plasmaon 07-05 -2018 Ethanol-Serum/Plasma 0.054 g/dL High 0.000-0 .01 0 [facility] Comment on above: Result Comment: NOTE : This result is for medical treatment only. Analysis performed using non-forensic procedures. Performed By: #### H EMDF, CMP3, ETOH4 ####[address] Hemogram w/ Autodiffon 11-19 Abs Baso Cnt 0.0 10*3/uL Normal 0.0-0.2 [facility] Comment on above: Performed By: #### H EMDF, CMP3, ETOH4 ####[address] Abs Neutrophile Cnt 4.3 10*3/uL Normal 1.8-7.0 [facility] Comment on above: Performed By: #### H EMDF, CMP3, ETOH4 ####[address] Basophils/100 WBC Auto (Bld) 0.5 % Normal 0.0-2.0 [facility] Comment on above: Performed By: #### H EMDF, CMP3, ETOH4 ####[address] Eosinophils 0.2 10*3/uL Normal 0.0-0.5 [facility] Comment on above: Performed By: #### H EMDF, CMP3, ETOH4 ####[address] Eosinophils/100 leukocytes 3.0 % Normal 1.0-6.0 [facility] Comment on above: Performed By: #### H EMDF, CMP3, ETOH4 ####[address] Erythrocyte distribution width Auto Ratio (RBC) 15.4 % High 11.5-14.5 [facility] Comment on above: Performed By: #### H EMDF, CMP3, ETOH4 ####[address] Erythrocytes (RBC) 4.46 10*6/uL Normal 4.40-5.90 [facility] Comment on above: Performed By: #### H EMDF, CMP3, ETOH4 ####[place] [address] [place], [place] Granulocytes/100 WBC (Bld) 66.5 % Normal 40.0-80.0 [facility] Comment on above: Performed By: #### H EMDF, CMP3, ETOH4 ####[address] Hematocrit (HCT) 43.3 % Normal 40.0-52.0 [facility] Comment on above: Performed By: #### H EMDF, CMP3, ETOH4 ####[address] Hemoglobin mass conc (Bld) 14.8 g/dL Normal 13.0-18.0 [facility] Comment on above: Performed By: #### H EMDF, CMP3, ETOH4 ####[address] Lymphocytes 1.2 10*3/uL Normal 1.0-4.3 [facility] Comment on above: Performed By: #### H EMDF, CMP3, ETOH4 ####[address] Lymphocytes/100 leukocytes 18.5 % Low 20.0-40.0 [facility] Comment on above: Performed By: #### H EMDF, CMP3, ETOH4 ####[address] MCH 33.1 pg Normal 26.0-34.0 [facility] Comment on above: Performed By: #### H EMDF, CMP3, ETOH4 ####[address] MCHC mass conc (RBC) 34.1 % Normal 32.0-36.0 [facility] Comment on above: Performed By: #### H EMDF, CMP3, ETOH4 ####[facility] [employer] [id number] [place] [address] MCV 97.0 fL Normal 80.0-98.0 [facility] Comment on above: Performed By: #### H EMDF, CMP3, ETOH4 ####[facility] [employer] [id number] [place] [address] Monocytes 0.8 10*3/uL Normal 0.0-0.8 [facility] Comment on above: Performed By: #### H EMDF, CMP3, ETOH4 ####[facility] [employer] [address] [place] [address] Monocytes/100 leukocytes 11.5 % High 2.0-10.0 [facility] Comment on above: Performed By: #### H EMDF, CMP3, ETOH4 ####[facility] [employer] [place] [address] Platelet mean volume (PMV) 8.0 fL Normal 7.4-10.4 [facility] Comment on above: Performed By: #### H EMDF, CMP3, ETOH4 ####[facility] [employer] [place] [address] Platelets 161 10*3/uL Normal 140-440 [facility] Comment on above: Performed By: #### H EMDF, CMP3, ETOH4 ####[facility] [employer] [place] [address] WBC (Leukocytes) 6.5 10*3/uL Normal 3.6-10.7 [facility] Comment on above: Performed By: #### H EMDF, CMP3, ETOH4 ####[facility] [employer] [id number] [place] [address] 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 Left ventricular Ejection fraction 60 % Invalid Interpretation Code [facility] Work Phone: Coumadin Management: Karlo tejada Cal[employer] 03-05-2017 INR Coag RelTime (Bld) 2 to 3 Invalid Interpretation Code [facility] Work Phone: INR Coag RelTime (Bld) Hospital lab Invalid Interpretation Code [facility] Work Phone: [phone] INR Coag RelTime (PPP) 1.4 {INR} Invalid Interpretation Code [facility] Work Phone: [phone] Prothrombin time (PT) Coag time (PPP) 16.2 s Invalid Interpretation Code [facility] Work Phone: [phone] Lab Report: Prothrombin Time w/INRon 03-05-2017 Prothrombin time (PT) Coag time (PPP) 16.2 s High 11.7-14.9 [facility] Work Phone: [phone] Office Visiton 09-29-2016 Documentation of current medications (procedure) Done Invalid Interpretation Code [facility] Work Phone: [phone] Office Visit: Follow up appo intmenton 08-21-2016 Fall risk assessment No Invalid Interpretation Code [facility] Phone: [phone] Smoking cessation education (procedure) yes Invalid Interpretation Code [facility] Work Phone: [phone] Tobacco smoking status NHIS Never Invalid Interpretation Code [facility] Work Phone: [phone] Tobacco use CPHS Current every day smoker Invali d Interpretation Code [facility] Work Phone: [phone] Office Visit: Follow up appo intmenton 06-16-2016 Adult depression screening assessment Adult depression screening assessment Invalid Interpretation Code [facility] Phone: [phone] Office Visit: New patient co nsulton 05-13-2016 Adult depression screening assessment Adult depression screening assessment Invalid Interpretation Code [facility] Phone: [phone] Lab Report: ANTINUCLEAR ANTI BODIES DIRECTon 04-10-2016 GRISELDA Titer Negative Invalid Interpretation Code Negative [facility] Work Phone: [phone] Lab Report: Comprehensive Me tabolic Profilon 04-08-2016 Alanine aminotransferase (ALT) 23 U/L Invalid Interpretation Code 12-78 [facility] Work Phone: [phone] Albumin 3.8 g/dL Invalid Interpretation Code 3.4-5.0 [facility] Work Phone: [phone] Albumin/Globulin Ratio 1.1 {ratio} Invalid Interpretation Code 0.9-2.4 [facility] Work Phone: [phone] Alkaline phosphatase (ALP) 66 U/L Invalid Interpretation Code 45-117 [facility] Work Phone: [phone] Anion gap 10 mmol/L Invalid Interpretation Code 5-15 [facility] Work Phone: [phone] Aspartate aminotransferase (AST) 18 U/L Invalid Interpretation Code 15-37 [facility] Work Phone: [phone] Bilirubin (total) 0.40 mg/dL Invalid Interpretation Code 0.20-1.00 [facility] Work Phone: [phone] BUN/Creatinine Ratio 11.5 RATIO Invalid Interpretation Code 10-20 [facility] Work Phone: [phone] Calcium 8.7 mg/dL Invalid Interpretation Code 8.5-10.1 [facility] Work Phone: [phone] Chloride 105 mmol/L Invalid Interpretation Code 98-107 [facility] Work Phone: [phone] CO2 26.0 mmol/L Invalid Interpretation Code 21.0-32.0 [facility] Work Phone: [phone] Creatinine 1.13 mg/dL Invalid Interpretation Code 0.70-1.30 [facility] Work Phone: [phone] eGFR (non-black) 70 mL/min/{1.73_m2} Invalid Interpretation Code >60 [facility] Work Phone: [phone] eGFR (non-black) 85 mL/min/{1.73_m2} Invalid Interpretation Code >60 [facility] Work Phone: [phone] Globulin 3.5 g/dL Invalid Interpretation Code 2.3-3.5 [facility] Work Phone: [phone] Glucose mass conc 98 mg/dL Invalid Interpretation Code 70-110 [facility] Work Phone: [phone] Potassium molar conc 4.1 mmol/L Invalid Interpretation Code 3.5-5.1 [facility] Work Phone: [phone] Protein 7.3 g/dL Invalid Interpretation Code 6.4-8.2 [facility] Work Phone: [phone] Sodium 141 mmol/L Invalid Interpretation Code 136-145 [facility] Work Phone: [phone] Urea nitrogen 13 mg/dL Invalid Interpretation Code 7-18 [facility] Work Phone: [phone] Lab Report: Erythrocyte Sed Rateon 04-08-2016 Erythrocyte sedimentation rate 9 mm/h Invalid Interpretation Code 0-20 [facility] Work Phone: [phone]) Lab Report: Free T3on 2015 Triiodothyronine (T3) free 2.3 pg/mL Invalid Interpretation Code 2.18-3.98 [facility] Work Phone: [phone] Lab Report: Rheumatoid Facto carlos enrique 04-08-2016 rheumatoid factor < 10.0 Invalid Interpretation Code <15 [facility] Work Phone: [phone] Lab Report: T4 Free Directon 04-08-2016 Thyroxine (T4) free 1.12 ng/dL Invalid Interpretation Code 0.76-1.46 [facility] Work Phone: [phone] Replaced Document: (P) CBC W /Diff, Automatedon 04-08-2016 Absolute Neut 4.9 X10 3/UL Invalid Interpretation Code 2.0-7.7 [facility] Work Phone: [phone] Basophils/100 WBC Auto (Bld) 0.1 % Invalid Interpretation Code 0-1 [facility] Work Phone: [phone] Eosinophils/100 leukocytes 3.2 % Invalid Interpretation Code 0-5 [facility] Work Phone: [phone] Erythrocyte distribution width Auto Ratio (RBC) 13.1 % Invalid Interpretation Code 11.6-14.6 [facility] Work Phone: [phone] Erythrocytes (RBC) 4.52 10*6/uL Low 4.6-6.[address] [facility] Work Phone: [phone] Hematocrit (HCT) 42.3 % Invalid Interpretation Code 40-54 [facility] Work Phone: [phone] Hemoglobin mass conc (Bld) 14.0 g/dL Invalid Interpretation Code 13.0-16.5 [facility] Work Phone: [phone] Immature granulocytes/100 WBC (Bld) 0.100 % Invalid Interpretation Code 0.0-0.9 [facility] Work Phone: [phone] Lymphocytes 1.78 X10 3/UL Invalid Interpretation Code 0.83-4.51 [facility] Work Phone: [phone] Lymphocytes/100 leukocytes 23.5 % Invalid Interpretation Code 19-41 [facility] Work Phone: [phone] MCH 31.0 pg Invalid Interpretation Code 27.0-32.0 [facility] Work Phone: [phone] MCHC mass conc (RBC) 33.1 G/GL Invalid Interpretation Code 32-36 [facility] Work Phone: [phone] MCV 93.6 fL Invalid Interpretation Code 80-94 [facility] Work Phone: [phone] Monocytes/100 leukocytes 8.8 % Invalid Interpretation Code 0-10 [facility] Work Phone: [phone] Neutrophils/100 WBC Auto (Bld) 64.3 % Invalid Interpretation Code 47-70 [facility] Work Phone: [phone] Platelets 184 10*3/mm3 Invalid Interpretation Code 150-450 [facility] Work Phone: [phone] PMV by Tomer 10.9 fL Invalid Interpretation Code 6.2-12.0 [facility] Work Phone: [phone] RDW SD 44.8 fL High 35.1-43.9 [facility] Work Phone: [phone] WBC (Leukocytes) 7.6 10*3/uL Invalid Interpretation Code 4.4-11.0 [facility] Work Phone: [phone]) Clinical Lists Update: 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 ironer 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 12-31-2015 Albumin/Globulin Ratio 1.1 {ratio} Invalid Interpretation Code [facility] Work Phone: [phone] Basophils Auto #/vol (Bld) 0.3 {Cells}/uL Invalid Interpretation Code [facility] Work Phone: [phone] eGFR (non-black) 83 mL/min/{1.73_m2} Invalid Interpretation Code [facility] Work Phone: [phone] eGFR (non-black) 100 mL/min/{1.73_m2} Invalid Interpretation Code [facility] Work Phone: [phone] Eosinophils 3.3 {Cells}/uL Invalid Interpretation Code [facility] Work Phone: [phone] Globulin 3.4 g/dL Invalid Interpretation Code [facility] Work Phone: [phone] Lymphocytes 24.0 10*3/uL Invalid Interpretation Code [facility] Work Phone: [phone] Monocytes 16.7 {Cells}/uL High [facility] Work Phone: [phone] Neutrophils 55.4 10*3/uL Invalid Interpretation Code [facility] Work Phone: [phone] Cholesterol 122 mg/dL Invalid Interpretation Code [facility] Work Phone: [phone] Cholesterol to HDL Ratio 2.0 {ratio} Invalid Interpretation Code [facility] Work Phone: [phone] HDL Cholesterol 62 mg/dL Invalid Interpretation Code [facility] Work Phone: [phone] LDL Cholesterol 47 mg/dL Invalid Interpretation Code [facility] Work Phone: [phone] Triglyceride 62 mg/dL Invalid Interpretation Code [facility] Work Phone: [phone] Office Visiton 07-12-2015 General cardiovascular disease 10Y risk [#] [place].D'Agostino 6 % Invalid Interpretation Code [facility] Phone: [phone] Clinical Lists Update: Prelo crown ironer operator 03-07-2015 Thyroid stimulating hormone (TSH) 0.37 u[iU]/mL Invalid Interpretation Code [facility] Phone: [phone] very low density lipoproteins 22 mg/dL Invalid Interpretation Code [facility] Work Phone: [phone] Lab Report: CBC W/Diff, Auto matedon 01-02-2015 Anisocytosis presence 1+ Invalid Interpretation Code [facility] Work Phone: [phone] SMEAR COMMENT SCANNED Invalid Interpretation Code [facility] Work Phone: [phone] Lab Report: CRPon 01-02-2015 C reactive protein (CRP) mg/L Invalid Interpretation Code 0.0-3.0 [facility] Work Phone: [phone] Replaced Document: (P) CBC W /Diff, Automatedon 01-02-2015 Absolute Neut 3.9 X10 3/UL Invalid Interpretation Code 2.0-7.7 [facility] Phone: [phone] Lab Report: T3 Uptakeon 11-15 T3 UPTAKE 41 % High 33-40 [facility] Work Phone: [phone] T7 (FTI) Test not performed Invalid Interpretation Code 1.4-4.5 [facility] Phone: [phone] Microbiology: Culture, Blood (WB)on 11-30-2014 Bacteria culture BCNo growth in 5 days. Invalid Interpretation Code [facility] Phone: [phone] Office Visiton 09-21-2014 cardiac risk group C Invalid Interpretation Code [facility] Phone: [phone] Replaced Document: Arielle CARR Observationson 09-21-2014 EKG QRS axis -74 deg Invalid Interpretation Code [facility] Phone: [phone] Interpretation Sinus Rhythm -Nonspe cific QRS widening and anterior fascicular block. - Nonspecific T-abnormality. ABNORMAL Invalid Interpretation Code [facility] Work Phone: [phone] P [place] 1 deg Invalid Interpretation Code [facility] Work Phone: [phone] [place] Interval 0 ms Invalid Interpretation Code [facility] Work Phone: [phone] Pulse (Heart Rate) 95 /min Invalid Interpretation Code [facility] Phone: [phone] QRS Duration 126 ms Invalid Interpretation Code [facility] Phone: [phone] QT Interval new path ms Invalid Interpretation Code [facility] Work Phone: [phone] QTc Smith 451 ms Invalid Interpretation Code [facility] Work Phone: [phone] T [place] -23 deg Invalid Interpretation Code [facility] Phone: [phone] Replaced Document: Arielle CARR Observationson 06-02-2012 Pulse (Heart Rate) 439 ms Invalid Interpretation Code [facility] Phone: [phone] Vital Signs Date Time Vital Sign Value Performing Clinician [facility] 02-23-2024 14:50-0400 Body height 175.3 cm Lance Hobbs MD Work Phone: [facility] 02-23-2024 14:50-0400 Body mass index (BMI) [Ratio] 22.45 kg/m2 Lance Hobbs MD Work Phone: [facility] [employer] 02-23-2024 14:50-0400 Body weight 68.95 kg Lance Hobbs MD Work Phone: [facility] 02-23-2024 14:50-0400 Diastolic blood pressure 60 mm[Hg] Lance Hobbs MD Work Phone: [facility] 02-23-2024 14:50-0400 Heart rate 69 /min Lance Hobbs MD Work Phone: [facility] 02-23-2024 14:50-0400 SaO2% (BldA) [Mass fraction] 93 % Lance Hobbs MD Work Phone: [facility] 02-23-2024 14:50-0400 Systolic blood pressure 122 mm[Hg] Lance Hobbs MD Work Phone: [facility] 02-23-2024 13:40-0400 Body height 175.3 cm Delbert Stover MD Work Phone: [facility] 02-23-2024 13:40-0400 Body mass index (BMI) [Ratio] 22.59 kg/m2 Delbert Stover MD Work Phone: [facility] 02-23-2024 13:40-0400 Body temperature 97.3 [degF] Delbert Stover MD Work Phone: [facility] 02-23-2024 13:40-0400 Body weight 69.4 kg Delbert Stover MD Work Phone: [facility] [employer] 02-23-2024 13:40-0400 Diastolic blood pressure 63 mm[Hg] Delbert Stover MD Work Phone: [facility] 02-23-2024 13:40-0400 Heart rate 69 /min Delbert Stover MD Work Phone: [facility] 02-23-2024 13:40-0400 Systolic blood pressure 116 mm[Hg] Delbert Stover MD Work Phone: [facility] 01-22-2024 11:05-0400 Body height 177.8 cm Ventura Reid MD Work Phone: [facility] 01-22-2024 11:05-0400 Body mass index (BMI) [Ratio] 21.24 kg/m2 Ventura Reid MD Work Phone: [facility] 01-22-2024 11:05-0400 Body weight 67.13 kg Ventura Reid MD Work Phone: [facility] 01-22-2024 11:05-0400 Diastolic blood pressure 69 mm[Hg] Ventura Reid MD Work Phone: [facility] 01-22-2024 11:05-0400 Heart rate 71 /min Ventura Reid MD Work Phone: [facility] 01-22-2024 11:05-0400 Systolic blood pressure 115 mm[Hg] Ventura Reid MD Work Phone: [facility] 01-07-2024 12:00-0400 Body temperature 96.91 [degF] Cris Hennessy MD Work Phone: [facility] 01-07-2024 12:00-0400 Diastolic blood pressure 57 mm[Hg] Cris Hennessy MD Work Phone: [facility] 01-07-2024 12:00-0400 Heart rate 76 /min Cris Hennessy MD Work Phone: [facility] 01-07-2024 12:00-0400 Respiratory rate 16 /min Cris Hennessy MD Work Phone: [facility] 01-07-2024 12:00-0400 SaO2% (BldA) [Mass fraction] 92 % Cris Hennessy MD Work Phone: [facility] 01-07-2024 12:00-0400 Systolic blood pressure 110 mm[Hg] Cris Hennessy MD Work Phone: [facility] 01-07-2024 05:14-0400 Body mass index (BMI) [Ratio] 23.06 kg/m2 Cris Hennessy MD Work Phone: [facility] 01-07-2024 05:14-0400 Body weight 72.9 kg Cris Hennessy MD Work Phone: [facility] 01-02-2024 08:50-0400 Body height 177.8 cm Cris Hennessy MD Work Phone: [facility] 10-23-2023 10:13-0400 Body height 177.8 cm Lance Hobbs MD Work Phone: [facility] 10-23-2023 10:13-0400 Body mass index (BMI) [Ratio] 22.24 kg/m2 Lance Hobbs MD Work Phone: [facility] 10-23-2023 10:13-0400 Body weight 70.31 kg Lance Hobbs MD Work Phone: [facility] 10-23-2023 10:13-0400 Diastolic blood pressure 58 mm[Hg] Lance Hobbs MD Work Phone: [facility] 10-23-2023 10:13-0400 Heart rate 71 /min Lance Hobbs MD Work Phone: [facility] 10-23-2023 10:13-0400 SaO2% (BldA) [Mass fraction] 94 % Lance Hobbs MD Work Phone: [facility] 10-23-2023 10:13-0400 Systolic blood pressure 82 mm[Hg] Lance Hobbs MD Work Phone: [facility] 09-10-2023 10:08-0400 Body height 172.7 cm Selena Shaikh CNP Work Phone: [facility] 09-10-2023 10:08-0400 Body mass index (BMI) [Ratio] 22.99 kg/m2 Selena Shaikh CNP Work Phone: [facility] 09-10-2023 10:08-0400 Body weight 68.58 kg Selena Leonardo POULTRY HATCHERY SUPERVISOR - [employer] Work Phone: [facility] 09-10-2023 10:08-0400 Diastolic blood pressure 62 mm[Hg] Selena Leonardo POULTRY HATCHERY SUPERVISOR - [employer] Work Phone: [facility] 09-10-2023 10:08-0400 Heart rate 70 /min Selena Leonardo POULTRY HATCHERY SUPERVISOR - [employer] Work Phone: [facility] 09-10-2023 10:08-0400 SaO2% (BldA) [Mass fraction] 93 % Selena Leonardo POULTRY HATCHERY SUPERVISOR - [employer] Work Phone: [facility] 09-10-2023 10:08-0400 Systolic blood pressure 110 mm[Hg] Selena Leonardo POULTRY HATCHERY SUPERVISOR - [employer] Work Phone: [facility] 09-10-2023 09:04-0400 Body height 177.8 cm Josephine Lees POULTRY HATCHERY SUPERVISOR - [employer] Work Phone: [facility] 09-10-2023 09:04-0400 Body mass index (BMI) [Ratio] 21.52 kg/m2 Josephine Lees POULTRY HATCHERY SUPERVISOR - [employer] Work Phone: [facility] 09-10-2023 09:04-0400 Body weight 68.04 kg Josephine Lees POULTRY HATCHERY SUPERVISOR - [employer] Work Phone: [facility] 09-03-2023 09:35-0400 Body height 172.7 cm Selena Leonardo POULTRY HATCHERY SUPERVISOR - [employer] Work Phone: [facility] 09-03-2023 09:35-0400 Body mass index (BMI) [Ratio] 23.42 kg/m2 Selena Leonardo POULTRY HATCHERY SUPERVISOR - [employer] Work Phone: [facility] 09-03-2023 09:35-0400 Body weight 69.85 kg Selena Leonardo POULTRY HATCHERY SUPERVISOR - [employer] Work Phone: [facility] 09-03-2023 09:35-0400 Diastolic blood pressure 68 mm[Hg] Selena Leonardo APRN - [employer] Work Phone: [place] 09-03-2023 09:35-0400 Heart rate 70 /min Selena Leonardo POULTRY HATCHERY SUPERVISOR - [employer] Work Phone: [place] 09-03-2023 09:35-0400 SaO2% (BldA) [Mass fraction] 99 % Selena Leonardo POULTRY HATCHERY SUPERVISOR - [employer] Work Phone: [place] 09-03-2023 09:35-0400 Systolic blood pressure 98 mm[Hg] Selena Leonardo POULTRY HATCHERY SUPERVISOR - [employer] Work Phone: [place] 08-24-2023 09:29-0400 Diastolic Blood Pressure Non-Invasive 75 mm[Hg] DR CASIE IRBY MD [facility] 08-24-2023 09:29-0400 Heart rate 79 /min DR CASIE IRBY MD [facility] 08-24-2023 09:29-0400 Respiratory rate 18 /min DR CASIE IRBY MD [facility] 08-24-2023 09:29-0400 Systolic Blood Pressure Non-Invasive 115 mm[Hg] DR CASIE IRBY MD [facility] 08-24-2023 09:02-0400 Diastolic Blood Pressure Non-Invasive 68 mm[Hg] DR CASIE IRBY MD [facility] 08-24-2023 09:02-0400 Heart rate 79 /min DR CASIE IRBY MD [facility] 08-24-2023 09:02-0400 Respiratory rate 12 /min DR CASIE IRBY MD [facility] 08-24-2023 09:02-0400 Systolic Blood Pressure Non-Invasive 101 mm[Hg] DR CASIE IRBY MD [facility] 08-24-2023 08:57-0400 Diastolic Blood Pressure Non-Invasive 67 mm[Hg] DR CASIE IRBY MD [facility] 08-24-2023 08:57-0400 Heart rate 78 /min DR CASIE IRBY MD [facility] 08-24-2023 08:57-0400 Respiratory rate 17 /min DR CASIE IRBY MD [facility] 08-24-2023 08:57-0400 Systolic Blood Pressure Non-Invasive 104 mm[Hg] DR CASIE IRBY MD [facility] 08-24-2023 08:45-0400 Body temperature 98.42 [degF] DR CASIE IRBY MD [facility] 08-24-2023 08:35-0400 Respiratory Rate - Anes 5 br/min DR CASIE IRBY MD [facility] 08-24-2023 08:30-0400 Respiratory Rate - Anes 17 br/min DR CASIE IRBY MD [facility] 08-24-2023 08:25-0400 Respiratory Rate - Anes 16 br/min DR CASIE IRBY MD [facility] 08-24-2023 07:55-0400 Body height 177.[address] CASIE IRBY MD [facility] 08-24-2023 07:55-0400 Body temperature 97.7 [degF] DR CASIE IRBY MD [facility] 08-24-2023 07:55-0400 Body weight 68.[address] CASIE IRBY MD [facility] 08-24-2023 07:55-0400 Heart rate 82 /min DR CASIE IRBY MD [facility] 08-06-2023 09:12-0400 Body height 177.8 cm Selena Wagnerel POULTRY HATCHERY SUPERVISOR - [employer] Work Phone: [facility] 08-06-2023 09:12-0400 Body mass index (BMI) [Ratio] 20.86 kg/m2 Selena Wagnerel POULTRY HATCHERY SUPERVISOR - [employer] Work Phone: [facility] 08-06-2023 09:12-0400 Body weight 65.95 kg Selena Wagnerel POULTRY HATCHERY SUPERVISOR - [employer] Work Phone: [facility] 08-06-2023 09:12-0400 Diastolic blood pressure 68 mm[Hg] Selenajagjit Leonardo POULTRY HATCHERY SUPERVISOR - [employer] Work Phone: [facility] 08-06-2023 09:12-0400 Heart rate 70 /min Selenajagjit Leonardo POULTRY HATCHERY SUPERVISOR - [employer] Work Phone: [facility] 08-06-2023 09:12-0400 SaO2% (BldA) [Mass fraction] 97 % Selena Wagnerel POULTRY HATCHERY SUPERVISOR - [employer] Work Phone: [facility] 08-06-2023 09:12-0400 Systolic blood pressure 112 mm[Hg] Selena Leonardo POULTRY HATCHERY SUPERVISOR - [employer] Work Phone: [facility] 07-30-2023 08:15-0400 Body temperature 97.5 [degF] Ericka Glover Work Phone: [facility] 07-30-2023 08:15-0400 Diastolic blood pressure 63 mm[Hg] Ericka Nicholas MD Work Phone: [facility] 07-30-2023 08:15-0400 Heart rate 70 /min Ericka Glover Work Phone: [facility] 07-30-2023 08:15-0400 Respiratory rate 18 /min Ericka Glover Work Phone: [facility] 07-30-2023 08:15-0400 SaO2% (BldA) [Mass fraction] 96 % Ericka Nicholas MD Work Phone: [facility] 07-30-2023 08:15-0400 Systolic blood pressure 116 mm[Hg] Ericka Nicholas MD Work Phone: [facility] 07-30-2023 06:53-0400 Body height 177.8 cm Ericka Glover Work Phone: [facility] 07-30-2023 06:00-0400 Body mass index (BMI) [Ratio] 20.95 kg/m2 Ericka Nicholas MD Work Phone: [facility] 07-30-2023 06:00-0400 Body weight 66.22 kg Ericka Glover Work Phone: [facility] 07-16-2023 08:19-0500 Body height 177.8 cm Selena Leonardo POULTRY HATCHERY SUPERVISOR - [employer] Work Phone: [facility] 07-16-2023 08:19-0500 Body mass index (BMI) [Ratio] 21.12 kg/m2 Selena Leonardo POULTRY HATCHERY SUPERVISOR - [employer] Work Phone: [facility] 07-16-2023 08:19-0500 Body weight 66.77 kg Selena Leonardo POULTRY HATCHERY SUPERVISOR - [employer] Work Phone: [facility] 07-16-2023 08:19-0500 Diastolic blood pressure 64 mm[Hg] Selena Leonardo APRN - [employer] Work Phone: [facility] 07-16-2023 08:19-0500 Heart rate 70 /min Selena Leonardo POULTRY HATCHERY SUPERVISOR - [employer] Work Phone: [facility] 07-16-2023 08:19-0500 SaO2% (BldA) [Mass fraction] 95 % Selena Leonardo APRN - [employer] Work Phone: [facility] 07-16-2023 08:19-0500 Systolic blood pressure 90 mm[Hg] Selena Leonardo APRN - [employer] Work Phone: [facility] 06-09-2023 12:47-0500 Body height 177.8 cm Bronson Curiel DO Work Phone: [facility] 06-09-2023 12:47-0500 Body mass index (BMI) [Ratio] 20.88 kg/m2 Bronson Curiel DO Work Phone: [facility] 06-09-2023 12:47-0500 Body weight 66 kg Bronson Curiel DO Work Phone: [facility] [employer] 06-09-2023 12:47-0500 Diastolic blood pressure 62 mm[Hg] Bronson Curiel DO Work Phone: [facility] 06-09-2023 12:47-0500 Heart rate 70 /min Bronson Curiel DO Work Phone: [facility] [facility] 06-09-2023 12:47-0500 Systolic blood pressure 108 mm[Hg] Bronson Ramosung DO Work Phone: [facility] 06-09-2023 12:07-0500 Body height 177.8 cm Ericka Glover Work Phone: [facility] [employer] 06-09-2023 12:07-0500 Body mass index (BMI) [Ratio] 20.89 kg/m2 Ericka Nicholas MD Work Phone: [facility] 06-09-2023 12:07-0500 Body weight 66.04 kg Ericka Glover Work Phone: [facility] 06-09-2023 12:07-0500 Diastolic blood pressure 62 mm[Hg] Ericka Nicholas MD Work Phone: [employer] 06-09-2023 12:07-0500 Heart rate 70 /min Ericka Glover Work Phone: [employer] 06-09-2023 12:07-0500 Systolic blood pressure 108 mm[Hg] Ericka Nicholas MD Work Phone: [employer] 05-29-2023 15:30-0500 Diastolic blood pressure 62 mm[Hg] Arthur Carvalho MD Work Phone: [facility] [facility] 05-29-2023 15:30-0500 Heart rate 70 /min Arthur Carvalho MD Work Phone: [facility] [facility] 05-29-2023 15:30-0500 Respiratory rate 18 /min Arthur Carvalho MD Work Phone: [facility] [facility] 05-29-2023 15:30-0500 Systolic blood pressure 104 mm[Hg] Arthur Carvalho MD Work Phone: [facility] 05-29-2023 14:39-0500 Body temperature 98.6 [degF] Arthur Carvalho MD Work Phone: [facility] 05-29-2023 14:35-0500 Body mass index (BMI) [Ratio] 21.38 kg/m2 Arthur Carvalho MD Work Phone: [facility] 05-29-2023 14:35-0500 Body weight 67.59 kg Arthur Carvalho MD Work Phone: [facility] 05-29-2023 13:54-0500 SaO2% (BldA) [Mass fraction] 92 % Arthur Carvalho MD Work Phone: [facility] 05-29-2023 13:25-0500 Body height 177.8 cm Arthur Carvalho MD Work Phone: [facility] 05-25-2023 10:15-0500 Diastolic blood pressure 80 mm[Hg] Lance Hobbs MD Work Phone: [employer] 05-25-2023 10:15-0500 Heart rate 70 /min Lance Hobbs MD Work Phone: [employer] 05-25-2023 10:15-0500 Respiratory rate 18 /min Lance Hobbs MD Work Phone: [employer] [facility] 05-25-2023 10:15-0500 Systolic blood pressure 127 mm[Hg] Lance Hobbs MD Work Phone: [facility] 05-25-2023 09:42-0500 Body temperature 97.5 [degF] Lance Hobbs MD Work Phone: [facility] 05-25-2023 07:15-0500 SaO2% (BldA) [Mass fraction] 96 % Lance Hobbs MD Work Phone: [facility] 04-30-2023 13:45-0500 Body height 177.8 cm Lance Hobbs MD Work Phone: [facility] 04-30-2023 13:45-0500 Body mass index (BMI) [Ratio] 21.38 kg/m2 Lance Hobbs MD Work Phone: [facility] 04-30-2023 13:45-0500 Body weight 67.59 kg Lance Hobbs MD Work Phone: [facility] 04-30-2023 13:45-0500 Diastolic blood pressure 70 mm[Hg] Lance Hobbs MD Work Phone: [facility] 04-30-2023 13:45-0500 Heart rate 70 /min Lance Hobbs MD Work Phone: [facility] 04-30-2023 13:45-0500 SaO2% (BldA) [Mass fraction] 97 % Lance Hobbs MD Work Phone: [facility] 04-30-2023 13:45-0500 Systolic blood pressure 116 mm[Hg] Lance Hobbs MD Work Phone: [facility] 09-29-2016 13:34-0400 BMI (Body Mass Index) 22.03 kg/m2 [facility] Work Phone: 09-29-2016 13:34-0400 BP Diastolic 72 mm[Hg] Delmy Berrios RN [facility] Work Phone: 09-29-2016 13:34-0400 BP Diastolic 64 mm[Hg] [facility] Work Phone: 09-29-2016 13:34-0400 BP Systolic 130 mm[Hg] [facility] Work Phone: 09-29-2016 13:34-0400 BP Systolic 120 mm[Hg] [facility] Work Phone: 09-29-2016 13:34-0400 Pulse (Heart Rate) 72 /min Delmy Berrios RN [facility] Work Phone: 09-29-2016 13:34-0400 Respiratory Rate 16 /min Delmy Berrios RN [facility] Work Phone: 09-29-2016 13:34-0400 Weight 71.67 kg Delmy Berrios RN [facility] Work Phone: 08-21-2016 08:36-0400 Body Temperature 97.9 [degF] [facility] Work Phone: 08-21-2016 08:36-0400 BSA (Body Surface Area) 1.9 m2 [facility] Work Phone: 08-21-2016 08:36-0400 Height 180.34 cm [facility] Work Phone: 08-21-2016 08:36-0400 Weight 71.12 kg [facility] Work Phone: Encounters Encounter Date Encounter Type Care Provider Facility Start: 03-04-2024 End: 03-04-2024 Telephone encounter Ventura Reid MD Work Phone: [facility] Comment on above: Appointment Request (6 week fu) Start: 02-29-2024 End: 02-29-2024 Refill Lance Hobbs MD Work Phone: [facility] [place] Start: 02-26-2024 End: 02-26-2024 Telephone encounter Ventura Reid MD Work Phone: [facility] [place] Comment on above: Reschedule Start: 02-23-2024 End: 02-23-2024 Office outpatient visit 25 minutes Lance Hobbs MD Work Phone: [facility] [employer] Comment on above: Vegetative endocardi tis of mitral valve; Chronic diastolic heart failure (HCC); Pulmonary hypertension (HCC); 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); Other hyperlipidemia Start: 02-23-2024 End: 02-23-2024 ambulatory LANCE HOBBS [facility] Start: 02-23-2024 End: 02-23-2024 ambulatory DELBERT STOVER [facility] Start: 02-23-2024 End: 02-23-2024 Office outpatient visit 40 minutes Delbert Stover MD Work Phone: [facility] Comment on above: Postoperative visit (Primary Dx); Subdural hematoma (HCC); Anticoagulation adequate Start: 02-05-2024 End: 02-05-2024 Refill Lance Hobbs MD Work Phone: [facility] Comment on above: Congestive heart kavin lure with right heart failure (HCC) Start: 01-22-2024 End: 01-22-2024 Office outpatient visit 25 minutes Ventura Reid MD Work Phone: [facility] Comment on above: Chronic bilateral lo w back pain without sciatica (Primary Dx) Start: 01-22-2024 End: 01-22-2024 ambulatory VENTURA REID [facility] Start: 01-19-2024 End: 01-19-2024 Subsequent hospital visit by physician Keshav Del Castillo [employer]OULTRY HATCHERY SUPERVISOR - [employer] Work Phone: [facility] Comment on above: SDH (subdural hemato ma) (HCC) Start: 01-19-2024 End: 01-19-2024 ambulatory FRACISCO-CHI DEVEN [facility] Start: 01-01-2024 End: 01-07-2024 Evaluation and management of inpatient Cris Hennessy MD Work Phone: [facility] Surgical Trauma Neuro Intensive Care Unit STN ICU T2 Comment on above: SDH (subdural hemato ma) (HCC) (Primary Dx) Start: 10-23-2023 End: 10-23-2023 Office outpatient visit 25 minutes Lance Hobbs MD Work Phone: [facility] Comment on above: Vegetative endocardi tis of mitral valve; Presence of cardiac pacemaker; Chronic diastolic heart failure (HCC); Pulmonary hypertension (HCC); 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); CKD (chronic kidney disease) stage 2, GFR 60-89 ml/min; Other hyperlipidemia Start: 10-23-2023 End: 10-23-2023 ambulatory [employer] [facility] Start: 10-20-2023 Refill Selena serrano POULTRY HATCHERY SUPERVISOR - [employer] Work Phone: [facility] Comment on above: Congestive heart kavin lure with right heart failure (HCC) Start: 09-10-2023 End: 09-10-2023 ambulatory [employer] [facility] Start: 09-10-2023 End: 09-10-2023 Office outpatient visit 25 minutes Selena Leonardo POULTRY HATCHERY SUPERVISOR - [employer] Work Phone: [facility] Comment on above: Severe mitral regurg itation Start: 09-10-2023 End: 09-10-2023 ambulatory [employer] [facility] Start: 09-10-2023 End: 09-10-2023 Subsequent hospital visit by physician Josephine Lees POULTRY HATCHERY SUPERVISOR - [employer] Work Phone: [facility] Comment on above: Severe mitral regurg itation Start: 09-10-2023 End: 09-10-2023 ambulatory [employer] [facility] Start: 09-03-2023 Telephone encounter Selena Leonardo POULTRY HATCHERY SUPERVISOR - [employer] Work Phone: [facility] Start: 09-03-2023 End: 09-03-2023 ambulatory [employer] [facility] Start: 09-03-2023 End: 09-03-2023 Subsequent hospital visit by physician Selena Leonardo POULTRY HATCHERY SUPERVISOR - [employer] Work Phone: [facility] X[facility] Comment on above: Mitral valve insuffi ciency, unspecified etiology; Shortness of breath Start: 09-03-2023 End: 09-03-2023 Office outpatient visit 25 minutes Selena Leonardo APRN - [employer] Work Phone: [facility] Comment on above: INR (international n ormal ratio) abnormal (Primary Dx); Mitral valve insufficiency, unspecified etiology; Shortness of breath; Other fatigue; Acute diastolic heart failure (HCC); Anemia, unspecified type Start: 09-03-2023 End: 09-03-2023 ambulatory [employer] [facility] Start: 08-24-2023 End: 08-24-[address] CASIE IRBY MD Facility:[facility] Start: 08-24-2023 End: 08-24-[address] CASIE IRBY MD [facility] Start: 08-06-2023 End: 08-06-2023 Office outpatient visit 25 minutes Selena Leonardo APRN - [employer] Work Phone: [facility] Comment on above: S/P mitral valve rep air (Primary Dx); Severe mitral regurgitation; CKD (chronic kidney disease) stage 2, GFR 60-89 ml/min; Chronic diastolic heart failure (HCC) Start: 08-06-2023 End: 08-06-2023 ambulatory [employer] [facility] Start: 08-05-2023 Telephone encounter Ericka dunn MD Work Phone: [facility] Start: 07-29-2023 Orders Only Aleta Lopes MD Work Phone: [facility] Comment on above: Mitral valve insuffi ciency, unspecified etiology (Primary Dx) Start: 07-29-2023 End: 07-30-2023 Evaluation and management of inpatient Ericka Nicholas MD Work Phone: [facility] Cardiac Thoracic Vascular Intensive Care Unit CTV ICU T1 Comment on above: Severe mitral regurg itation (Primary Dx); Rheumatic mitral regurgitation; S/P mitral valve replacement Start: 07-27-2023 ambulatory Josephine RAMÍREZ RN - [employer] Work Phone: [facility] Comment on above: Severe mitral regurg itation (Primary Dx) Start: 07-16-2023 End: 07-16-2023 Subsequent hospital visit by physician Selena Leonardo APRN - [facility] Work Phone: [facility] Comment on above: Prosthetic cardiac p aravalvular leak, initial encounter Start: 07-16-2023 End: 07-16-2023 ambulatory Selena Leonardo APRN - [employer] Work Phone: [facility] Laboratory Comment on above: Prosthetic cardiac p aravalvular leak, initial encounter; Dyspnea, unspecified Start: 07-16-2023 End: 07-16-2023 ambulatory [employer] [facility] Start: 07-16-2023 End: 07-16-2023 Office outpatient visit 25 minutes Selena Leonardo APRN - [place] Work Phone: [facility] [employer] [facility] Comment on above: Mitral valve insuffi ciency, unspecified etiology (Primary Dx); S/P mitral valve replacement; Acute on chronic diastolic heart failure (HCC); CKD (chronic kidney disease) stage 2, GFR 60-89 ml/min Start: 06-18-2023 End: 06-18-2023 Subsequent hospital visit by physician Selena Leonardo APRN - [facility] Work Phone: [facility] [address] Comment on above: Perivalvular leak of prosthetic heart valve, initial encounter; Nonrheumatic mitral valve disorder, unspecified Start: 06-18-2023 End: 06-18-2023 ambulatory [employer] [facility] Start: 06-09-2023 End: 06-09-2023 Office outpatient new 60 minutes Bronson Curiel DO Work Phone: [facility] [employer] [facility] Comment on above: S/P mitral valve rep lacement (Primary Dx); Bacterial endocarditis, unspecified chronicity; Mitral valve insufficiency, unspecified etiology Start: 06-09-2023 End: 06-09-2023 Office outpatient visit 40 minutes Ericka Nicholas MD Work Phone: [facility] [employer] [facility] Comment on above: Mitral valve insuffi ciency, unspecified etiology (Primary Dx); Acute deep vein thrombosis (DVT) of right lower extremity, unspecified vein (HCC); 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); Perivalvular leak of prosthetic heart valve, initial encounter; Nonrheumatic mitral valve disorder, unspecified; S/P mitral valve replacement Start: 06-09-2023 End: 06-09-2023 ambulatory [employer] [facility] Start: 06-01-2023 Orders Only Lance livingston MD Work Phone: [facility] Comment on above: Paravalvular leak of prosthetic heart valve, initial encounter (Primary Dx) Start: 05-29-2023 End: 05-29-2023 Subsequent hospital visit by physician Arthur Carvalho MD Work Phone: [facility] Cath/EP Lab Comment on above: Acute combined systo lic (congestive) and diastolic (congestive) heart failure (HCC); Mitral valve stenosis and aortic valve stenosis Start: 05-29-2023 End: 05-29-2023 ambulatory [employer] [facility] Start: 05-27-2023 ambulatory Jona velasquez PA-C Work Phone: [facility] Comment on above: 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 (Primary Dx) Start: 05-27-2023 Telephone encounter Isabell Shaffer [facility] Cardiology Comment on above: Med Management ([employer] Counseling) Procedure Start: 05-25-2023 End: 05-25-2023 Subsequent hospital visit by physician Lance Hobbs MD Work Phone: [facility] Cath/EP Lab Comment on above: Congestive heart kaivn lure with right heart failure (HCC) Mitral valve stenosi s and aortic valve stenosis (Primary Dx); 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) Start: 05-25-2023 Telephone encounter Lance Sanchez MD Work Phone: [facility] Comment on above: Med Management Start: 05-25-2023 End: 05-25-2023 ambulatory [employer] [facility] Start: 05-19-2023 ambulatory Selena gates PA-C Work Phone: [facility] Start: 04-30-2023 Telephone encounter Lance Sanchez MD Work Phone: [facility] Comment on above: Patient Education (R HC) Start: 04-30-2023 End: 04-30-2023 ambulatory LANCE HOBBS [facility] Start: 04-30-2023 End: 04-30-2023 Office outpatient new 45 minutes Lance Hobbs MD Work Phone: [facility] Comment on above: Primary hypertension (Primary Dx); Vegetative endocarditis of mitral valve; Presence of cardiac pacemaker; Bacterial endocarditis, unspecified chronicity; Syncope, unspecified syncope type; 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); 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) Start: 11-19-2017 Emergency department patient visit UNKNOWN PROVIDER [facility] Start: 04-10-2017 End: 04-10-2017 Refill Brandin Alvarado MD Work Phone: Gastroenterology Comment on above: Refill Request Procedures Date Procedure Procedure Detail Performing Clinician Start: 02-23-2024 Follow-up visit LANCE HOBBS Start: 02-23-2024 Follow-up visit Follow-up DELBERT STOVER Start: 01-22-2024 Follow-up visit LANCE HOBBS Start: 01-19-2024 Ct head/brain w/o co ntrast material Keshav Del Castillo POULTRY HATCHERY SUPERVISOR - [employer] Work Phone: Start: 01-07-2024 Ct head/brain w/o co ntrast material Keshav Del Castillo POULTRY HATCHERY SUPERVISOR - [employer] Work Phone: Start: 01-07-2024 Basic metabolic pane l calcium total Jani Prater MD Work Phone: Start: 01-06-2024 Slctv cath carotid/i nnom art angio intrcranl art Nancy Gonzalez [employer]OUL[employer] HATCHERY SUPERVISOR - [employer] Work Phone: Start: 01-06-2024 Glucose quantitative blood xcpt reagent strip Wero Ingram MD Work Phone: Start: 01-05-2024 ANTI-XA LEVEL, LMWH Fidencio Elmer POULTRY HATCHERY SUPERVISOR - [employer] Work Phone: Start: 01-04-2024 Ecg routine ecg w/le ast 12 lds trcg only w/o i&r Chiquis Elmer POULTRY HATCHERY SUPERVISOR - [employer] Work Phone: Start: 01-04-2024 Basic metabolic pane l calcium total Nam Dougherty MD Work Phone: Start: 01-03-2024 End: 01-03-2024 Basic metabolic panel calcium total Nam Dougherty MD Work Phone: Start: 01-02-2024 Glucose quantitative blood xcpt reagent strip Cris Hennessy MD Work Phone: Start: 01-02-2024 Glucose quantitative blood xcpt reagent strip Cris Hennessy MD Work Phone: Start: 01-02-2024 Glucose quantitative blood xcpt reagent strip Cris Hennessy MD Work Phone: Start: 01-02-2024 Basic metabolic pane l calcium total Nam Dougherty MD Work Phone: Start: 01-02-2024 Ct head/brain w/o co ntrast material Nam Dougherty MD Work Phone: Start: 01-01-2024 Glucose quantitative blood xcpt reagent strip Cris Hennessy MD Work Phone: Start: 01-01-2024 Ct head/brain w/o co ntrast material Dangelo Canada DO Work Phone: Start: 01-01-2024 Prothrombin time Ashlee Dougherty MD Work Phone: Start: 10-23-2023 Follow-up visit [employer] Start: 09-10-2023 Basic metabolic pane l calcium total Selena Leonardo POULTRY HATCHERY SUPERVISOR - [employer] Work Phone: Start: 09-10-2023 Follow-up visit [employer] Start: 09-10-2023 Ecg routine ecg w/le ast 12 lds trcg only w/o i&r Ericka Nicholas MD Work Phone: Start: 09-10-2023 TTE w or wo Jax garcia POULTRY HATCHERY SUPERVISOR - [employer] Work Phone: Start: 09-03-2023 Basic metabolic pane l calcium total Selena Leonardo POULTRY HATCHERY SUPERVISOR - [employer] Work Phone: Start: 09-03-2023 Ecg routine ecg w/le ast 12 lds trcg only w/o i&r Ericka Nicholas MD Work Phone: Start: 09-03-2023 Follow-up visit LANCE HOBBS Start: 09-03-2023 Thyrotropin [Units/v olume] in Serum or Plasma Selena Leonardo POUL[employer] HATCHERY SUPERVISOR - [employer] Work Phone: Start: 08-06-2023 Ecg routine ecg w/le ast 12 lds trcg only w/o i&r Ericka Nicholas MD Work Phone: Start: 08-06-2023 Follow-up visit LANCE HOBBS Start: 07-30-2023 Ecg routine ecg w/le ast 12 lds trcg only w/o i&r Sarah Bowden [employer]OULTRY HATCHERY SUPERVISOR - [employer] Work Phone: Start: 07-30-2023 Basic metabolic pane l calcium total Sarah Radha Dennise POULTRY HATCHERY SUPERVISOR - [employer] Work Phone: Start: 07-29-2023 Echo tthrc r-t 2d w/wom-mode compl spec&colr d Sarah A Dennise POULTRY HATCHERY SUPERVISOR - [employer] Work Phone: Start: 07-29-2023 Ecg routine ecg w/le ast 12 lds trcg only w/o i&r Sarah A Dennise POULTRY HATCHERY SUPERVISOR - [employer] Work Phone: Start: 07-29-2023 Basic metabolic pane l calcium total Sarah A Dennise [employer]OUL[employer] HATCHERY SUPERVISOR - [employer] Work Phone: Start: 07-29-2023 OXYGEN THERAPY Sarah A Dennise [employer]OUL[employer] HATCHERY SUPERVISOR - [employer] Work Phone: Start: 07-29-2023 Echo galo guid tcat icar/vessel structural intvn Aleta Lopes MD Work Phone: Start: 07-29-2023 Prothrombin time Zain Lee MD Work Phone: Start: 07-28-2023 Blood typing serologic abo Ericka Nicholas MD Work Phone: Start: 07-16-2023 Antibody screen [employer] Comment on above: Performed By: #### L [id number] ####Labor And Delivery Nurse: MASON ARMENTA ([id number])[facility] BLOOD [facility] ([address] Start: 07-16-2023 Blood typing serologic abo Selena Leonardo APRN - [employer] Work Phone: Start: 07-16-2023 Comprehensive metabo lic panel Selena Leonardo POULTRY HATCHERY SUPERVISOR - [employer] Work Phone: Start: 07-16-2023 E Ag [Presence] on R ed Blood Cells Selena Leonardo POULTRY HATCHERY SUPERVISOR - [employer] Work Phone: Start: 07-16-2023 little c Ag [Presenc e] on Red Blood Cells Selena Leonardo POULTRY HATCHERY SUPERVISOR - [employer] Work Phone: Start: 07-16-2023 Radiologic exam ches t 2 views Selena Leonardo APRN - [employer] Work Phone: Start: 07-16-2023 Ecg routine ecg w/le ast 12 lds trcg only w/o i&r Ericka Nicholas MD Work Phone: Start: 07-16-2023 Follow-up visit [employer] Start: 06-09-2023 End: 06-09-2023 Follow-up visit [employer] Start: 06-09-2023 Ecg routine ecg w/le ast 12 lds trcg only w/o i&r Ericka Nicholas MD Work Phone: Start: 05-29-2023 Echo transesophag r- t 2d w/prb img acquisj i&r Lance Hobbs MD Work Phone: Start: 05-25-2023 Cardiac catheterizat ion study Lance Hobbs MD Work Phone: Start: 05-25-2023 End: 05-25-2023 POCT O2 SATURATION Lance Hobbs MD Work Phone: Start: 04-30-2023 Ecg routine ecg w/le ast 12 lds w/i&r Lance Hobbs MD Work Phone: Start: 04-30-2023 Follow-up visit LANCE HOBBS Start: 02-25-2023 Thyrotropin [Units/v olume] in Serum or Plasma Lance Hobbs MD Work Phone: Start: 12-22-2016 End: 12-22-2016 Program eval implantable in persn dual ld pacer Ben Dietz MD Start: 06-23-2016 End: 08-13-2016 Follow Up Appt 6 months Ben Dietz MD Start: 06-23-2016 End: 08-13-2016 Pacer Clinic Ben Dietz MD Start: 06-23-2016 End: 06-23-2016 Program eval implantable in persn dual ld pacer Ben Dietz MD Start: 05-13-2016 End: 06-04-2016 Acth stimulation panel adrenal insufficiency Donna Ny NP Work Phone: Start: 05-13-2016 End: 06-04-2016 Thyrotropin [Units/volume] in Serum or Plasma Donna Ny NP Work Phone: Start: 05-13-2016 End: 06-04-2016 Thyroxine (T4) free [Mass/volume] in Serum or Plasma Donna Ny NP Work Phone: Start: 05-13-2016 End: 06-04-2016 Triiodothyronine (T3) Free [Mass/volume] in Serum or Plasma Donna Ny OWNER MANAGER Work Phone: Start: 04-07-2016 End: 04-11-2016 *GRISELDA Shruti Ware MD Start: 04-07-2016 End: 04-08-2016 *CBC with Differential Shruti Ware MD Start: 04-07-2016 End: 04-08-2016 *CMP Complete Metabolic Panel Shruti Ware MD Start: 04-07-2016 End: 04-08-2016 Erythrocyte sedimentation rate Shruti Ware MD Start: 04-07-2016 End: 04-08-2016 Rheumatoid factor quantitative Shruti Ware MD Start: 04-07-2016 End: 04-08-2016 Thyroxine (T4) free [Mass/volume] in Serum or Plasma Shruti Ware MD Start: 04-07-2016 End: 04-08-2016 Triiodothyronine (T3) Free [Mass/volume] in Serum or Plasma Shruti Ware MD Start: 03-31-2016 End: 04-08-2016 Ct abdomen & pelvis w/o contrast material Shruti Ware MD Start: 03-31-2016 End: 04-08-2016 Ct thorax w/o contrast material Shruti Ware MD Start: 02-25-2016 End: 02-25-2016 Follow Up Appt 6 months Ben Dietz MD Start: 02-25-2016 End: 08-13-2016 Follow Up Appt Other Ben Dietz MD Start: 02-25-2016 End: 02-25-2016 MMM Ben Dietz MD Start: 12-31-2015 End: 08-13-2016 Follow Up Appt 6 months Ben Dietz MD Start: 12-31-2015 End: 08-13-2016 Pacer Clinic Ben Dietz MD Start: 12-31-2015 End: 12-31-2015 Program eval implantable in persn dual ld pacer Ben Dietz MD Start: 07-13-2015 End: 08-07-2015 INR in Platelet poor plasma by Coagulation assay Ben Dietz MD Start: 07-12-2015 End: 08-13-2016 Echocardiography Ben Dietz MD Start: 07-12-2015 End: 07-12-2015 Follow Up Appt 6 months Ben Dietz MD Start: 07-12-2015 End: 07-12-2015 PFM Ben Dietz MD Start: 06-29-2015 End: 08-13-2016 Echocardiography Matt Royal MD Start: 06-29-2015 End: 08-13-2016 Follow Up Appt 6 months Dylan Ross Start: 06-29-2015 End: 06-29-2015 Program eval implantable in persn dual ld pacer Matt Royal MD Start: 05-17-2015 End: 08-13-2016 Follow Up Appt 3 months Ben Dietz MD Start: 05-17-2015 End: 08-13-2016 Pacer Clinic Ben Dietz MD Start: 05-17-2015 End: 05-23-2015 Program eval implantable in persn dual ld pacer Ben Dietz MD Start: 03-21-2015 End: 08-13-2016 Follow Up Appt 3 months Ben Dietz MD Start: 03-21-2015 End: 08-13-2016 Pacer Clinic Ben Dietz MD Start: 03-21-2015 End: 03-21-2015 Program eval implantable in persn dual ld pacer Ben Dietz MD Start: 01-25-2015 End: 01-26-2015 Documentation of current medications Selena Collazo PA-C Work Phone: Start: 01-25-2015 End: 01-25-2015 Follow Up Appt Other Selena zambrano PA-C Work Phone: Start: 01-25-2015 End: 01-25-2015 INR in Platelet poor plasma by Coagulation assay Selena Collazo PA-C Work Phone: Start: 01-25-2015 End: 01-26-2015 Smoking cessation education Selena Shields PA-C Work Phone: Start: 12-20-2014 End: 01-02-2015 *CBC with Differential Shruti Ware MD Start: 12-20-2014 End: 01-02-2015 *CMP Complete Metabolic Panel Shruti Ware MD Start: 12-20-2014 End: 01-02-2015 C reactive protein [Mass/volume] in Serum or Plasma by High sensitivity method Shruti Ware MD Start: 12-20-2014 End: 01-02-2015 Erythrocyte sedimentation rate Shruti Ware MD Start: 11-30-2014 End: 01-17-2015 Follow Up Appt 3 months Ben Dietz MD Start: 11-30-2014 End: 01-17-2015 Pacer Clinic Ben Dietz MD Start: 11-30-2014 End: 11-30-2014 Program eval implantable in persn dual ld pacer Ben Dietz MD Start: 11-24-2014 End: 01-17-2015 Bacteria identified in Blood by Culture Selena Collazo PA-C Work Phone: Start: 11-24-2014 End: 11-25-2014 Documentation of current medications Selena Collazo PA-C Work Phone: Start: 11-24-2014 End: 11-24-2014 Follow Up Appt 2 months Selena saavedra PA-C Work Phone: Start: 11-24-2014 End: 11-24-2014 MMM Selena Collazo PA-C Work Phone: Start: 11-24-2014 End: 11-25-2014 Smoking cessation education Selena Shields PA-C Work Phone: Start: 11-14-2014 End: 01-17-2015 Infectious Disease Selena Collazo PA-C Work Phone: Start: 11-03-2014 End: 11-16-2014 *BMP Selena Collazo PA-C Work Phone: Start: 11-03-2014 End: 11-16-2014 *CBC with Differential Selena crouch PA-C Work Phone: Start: 11-03-2014 End: 11-16-2014 Erythrocyte sedimentation rate Selena Collazo PA-C Work Phone: Start: 10-25-2014 End: 11-16-2014 Follow Up Appt 1 month Ben Dietz MD Start: 10-25-2014 End: 11-16-2014 ALEJANDRO Dietz MD Start: 10-19-2014 End: 11-16-2014 Follow Up Appt 1 month Ben Dietz MD Start: 10-19-2014 End: 10-19-2014 Nurse, Teaching, Wound Check (no charge) Ben Dietz MD Start: 10-19-2014 End: 11-16-2014 Pacer Clinic Ben Dietz MD Start: 09-21-2014 End: 09-21-2014 Cardiac Rehab Ben Dietz MD Start: 09-21-2014 End: 11-24-2014 Cardiovascular stress test using treadmill Ben Dietz MD Start: 09-21-2014 End: 09-22-2014 Documentation of current medications Ben Dietz MD Start: 09-21-2014 End: 09-21-2014 Ecg routine ecg w/least 12 lds w/i&r Ben Dietz MD Start: 09-21-2014 End: 09-21-2014 Follow Up Appt 6 weeks Ben Dietz MD Start: 09-21-2014 End: 11-24-2014 Follow Up Appt Other Ben Dietz MD Start: 09-21-2014 End: 10-16-2014 INR in Platelet poor plasma by Coagulation assay Ben Dietz MD Start: 09-21-2014 End: 09-21-2014 PFM Ben Dietz MD Start: 09-21-2014 End: 11-24-2014 Vascular Surgery Ben Dietz MD Start: 03-29-2014 End: 09-21-2014 Echocardiography Ben Dietz MD Start: 03-29-2014 End: 03-29-2014 Follow Up Appt 6 months Ben Dietz MD Start: 03-29-2014 End: 03-29-2014 MMM Ben Dietz MD Start: 12-09-2013 End: 09-21-2014 Echocardiography Ben Dietz MD Start: 12-09-2013 End: 12-09-2013 PFM Ben Dietz MD Start: 11-22-2012 End: 09-21-2014 *Hepatic Function Panel Ben Dietz MD Start: 11-22-2012 End: 11-22-2012 Echocardiography Ben Dietz MD Start: 11-22-2012 End: 11-22-2012 Follow Up Appt Other Ben Dietz MD Start: 11-22-2012 End: 09-21-2014 Lipid 1996 panel - Serum or Plasma Ben Dietz MD Start: 06-02-2012 End: 06-02-2012 Ecg routine ecg w/least 12 lds w/i&r Ben Dietz MD Start: 06-02-2012 End: 11-22-2012 Echocardiography Ben Dietz MD Start: 06-02-2012 End: 06-02-2012 Follow Up Appt 6 months Ben Dietz MD Start: 11-21-2011 End: 11-21-2011 Follow Up Appt 6 months Ben Dietz MD Start: 04-22-2011 End: 06-02-2012 Echocardiography Ben Dietz MD Start: 04-22-2011 End: 06-02-2012 Follow Up Appt 6 months Ben Dietz MD Bone reconstruction DR FLOYD IRBY MD Comment on above: right heel Bone wire, device (p hysical object) DR CASIE IRBY MD Comment on above: bilateral jaw wires Heart valve replacement DR Silke IRBY MD Comment on above: MITRAL VALVE REPLACE MENT. Pacemaker gameplay programmer (physical object) DR CASIE IRBY MD Comment on above: PACEMAKER PLACEMENT. [facility] Ray amputation of foot DR HAROLDO IRBY MD Repair of musculoten dinous cuff of shoulder DR CASIE IRBY MD Repair of umbilical hernia D R CASIE IRBY MD Tonsillectomy DR CASIE CANDELARIO MD Plan of Treatment Date Care Activity Detail Author Start: 02-22-2025 End: 02-22-2025 Patient encounter procedure 02/22/2025 9:00 AM EDT Office Visit [facility] [employer] Cardiology [facility] [address] [place] [phone] Lance Hobbs MD [address] [place] [address] [facility] [employer] [facility] Start: 01-06-2025 Creatinine measurement Creatinine Level [facility] [employer] Start: 01-06-2025 Potassium measurement Potassium Level [facility] [employer] Start: 09-09-2024 Creatinine measurement Creatinine Level [facility] [employer] Start: 09-09-2024 Echocardiography Echocardiogram [facility] [employer] Start: 09-09-2024 Potassium measurement Potassium Level [facility] [employer] Start: 09-02-2024 Creatinine measurement Creatinine Level [facility] [employer] Start: 09-02-2024 Potassium measurement Potassium Level [facility] [employer] Start: 09-02-2024 Thyroid stimulating hormone measurement TSH Level [facility] [employer] Start: 07-29-2024 Creatinine measurement Creatinine Level [facility] [employer] Start: 07-29-2024 Potassium measurement Potassium Level [facility] [employer] Start: 07-28-2024 Creatinine measurement Creatinine Level [facility] [employer] Start: 07-28-2024 Echocardiography Echocardiogram [facility] [employer] Start: 07-28-2024 Potassium measurement Potassium Level [facility] [employer] Start: 07-15-2024 Creatinine measurement Creatinine Level [facility] [employer] Start: 07-15-2024 Potassium measurement Potassium Level [facility] [employer] Start: 06-12-2024 Creatinine measurement Creatinine Level [facility] [employer] Start: 06-12-2024 Potassium measurement Potassium Level [facility] [employer] Start: 05-29-2024 Echocardiography Echocardiogram [facility] [employer] Start: 05-20-2024 Creatinine measurement Creatinine Level [facility] [employer] Start: 05-20-2024 Potassium measurement Potassium Level [facility] [employer] Start: 04-25-2024 End: 04-25-2024 Patient encounter procedure 04/25/2024 10:30 AM EST Office Visit [facility] Cardiology [address] [place] [phone] Lance Hobbs MD [address] [place] [address] [facility] Start: 03-11-2024 End: 03-11-2024 Patient encounter procedure 03/11/2024 11:30 AM EDT Office Visit [place] [facility] [place] [address] [place] [phone] Ventura Reid MD [address] [place], [place] [phone] [facility] Start: 03-08-2024 End: 04-24-2024 CT Head WO contrast CT head wo IV contrast Imaging Routine Postoperative visit Subdural hematoma (HCC) Anticoagulation adequate Expected: 03/08/2024, Expires: 04/24/2024 [facility] Work Phone: Comment on above: Expected: 03/08/2024, Expires: Start: 03-08-2024 Subsequent hospital visit by physician 03/08/2024 7:45 AM EDT Hospital Encounter [facility] [address] [place] [address] Delbert Stover MD [address] [address] [facility] [address] Start: 03-04-2024 End: 03-04-2024 Patient encounter procedure [facility] Start: 02-26-2024 Creatinine measurement Creatinine Level [place] Start: 02-26-2024 Potassium measurement Potassium Level [place] Start: 02-26-2024 Thyroid stimulating hormone measurement TSH Level [place] Start: 02-23-2024 End: 02-23-2024 Patient encounter procedure [facility]iology Start: 02-23-2024 End: 02-23-2024 Patient encounter procedure [facility] End[facility] Neurosurgery Start: 01-22-2024 End: 01-22-2024 Patient encounter procedure 01/22/2024 11:15 AM EDT Office Visit [facility] [address] [place] [phone] Ventura Reid MD [address] [place], [place] [phone] [facility] Start: 01-19-2024 Subsequent hospital visit by physician 01/19/2024 3:45 PM EDT Hospital Encounter [facility] [address] [place] [address] Keshav Del Castillo, POULTRY HATCHERY SUPERVISOR - [employer] [address] [place] [address] [facility] [address] Start: 01-17-2024 COVID-19 Vaccine ( season) COVID-19 Vaccine () [place] Start: 01-17-2024 Influenza vaccination Influenza Vaccine (#1) [place] Start: 01-13-2024 End: 01-05-2025 CT Head WO contrast CT head wo IV contrast Imaging Routine SDH (subdural hematoma) (HCC) Expected: 01/13/2024, Expires: 01/05/2025 [facility] Work Phone: Comment on above: Expected: 01/13/2024, Expires: Start: 10-23-2023 End: 10-23-2023 Patient encounter procedure 10/23/2023 10:15 AM EDT Office Visit [facility] Cardiology [address] [place] [address] Lance Hobbs MD [address] [place], [place] [phone] [facility] Start: 09-28-2023 End: 09-28-2023 Patient encounter procedure 09/28/2023 3:15 PM EDT Office Visit [facility] Cardiology [address] [place] [phone] Lance Hobbs MD [address] [place] [address] [email or web address] Start: 09-10-2023 End: 09-10-2023 Patient encounter procedure [facility] [address] Non-Invasive Cardiology Start: 09-05-2023 End: 08-04-2025 US Heart Transthoracic Transthoracic echocardiogram (TTE) complete with contrast, bubble, strain, and 3D PRN CV Echocardiography Routine Severe mitral regurgitation Expected: 09/05/2023 (Approximate), Expires: 08/04/2025 [facility] Work Phone: Comment on above: Expected: 09/05/2023 (Approximate), Expi res: 08/04/2025 Start: 09-03-2023 End: 09-02-2024 XR Chest 2 Views [facility] Work Phone: Comment on above: Expected: 09/03/2023, Expires: Once for 1 Occurrenc es starting 09/03/2023 until 09/03/2023 Start: 08-06-2023 End: 08-06-2023 Patient encounter procedure 08/06/2023 9:30 AM EDT Office Visit [facility] Cardiology [address] [place] [phone] Selena Leonardo, POULTRY HATCHERY SUPERVISOR - [employer] [address] [address] [facility] [employer] Cardiology Start: 07-29-2023 End: 07-28-2025 GALO for Interventional Guidance GALO for Interventional Guidance CV Echocardiography Routine Mitral valve insufficiency, unspecified etiology Expected: 07/29/2023 (Approximate), Expires: 07/28/2025 [facility] Work Phone: Comment on above: Expected: 07/29/2023 (Approximate), Expi res: 07/28/2025 Start: 07-29-2023 End: 07-29-2023 Admission to same day surgery center 07/29/2023 7:30 AM EDT - 07/29/2023 11:30 AM EDT Surgery [facility] MAIN OR [address] [place] [address] Ericka Nicholas MD 95 [facility] [address] [place], [place] [phone] paravalvular leak closure, mitral valve [facility] OR Comment on above: paravalvular leak closure, mitral valve Start: 07-29-2023 End: 07-29-2023 Anesthesia consultation 07/29/2023 7:30 AM EDT Anesthesia Event [facility] MA[facility] OR [address] [place] [address] Olivia Zamora, FEED MANAGER [address] [place], [place] [phone] [facility] Start: 07-29-2023 End: 07-29-2023 PROCEDURE/CPT NOT FOUND PROCEDURE/CPT NOT FOUND Prosthetic cardiac paravalvular leak, initial encounter 07/29/2023 7:30 AM EDT [place] Start: 07-29-2023 Subsequent hospital visit by physician 07/29/2023 7:30 AM EDT Hospital Encounter [facility] OR [address] [place] [address] Ericka Nicholas MD [address] [address] [facility] OR Start: 06-18-2023 End: 06-18-2023 Patient encounter procedure 06/18/2023 1:00 PM EST Appointment [facility] [address] [place] [phone] Selena Leonardo, POULTRY HATCHERY SUPERVISOR - [employer] [address] [facility] [address] [place], [place] [phone] [facility] [address] Start: 06-09-2023 End: 06-09-2024 Basic metabolic 1998 panel - Serum or Plasma Basic metabolic panel Lab Routine Mitral valve insufficiency, unspecified etiology Expected: 06/09/2023 (Approximate), Expires: 06/09/2024 [facility] Work Phone: Comment on above: Expected: 06/09/2023 (Approximate), Expi res: 06/09/2024 Start: 06-09-2023 End: 06-09-2024 CT Heart W contrast IV CT heart structure morphology w IV contrast Imaging Routine Perivalvular leak of prosthetic heart valve, initial encounter Nonrheumatic mitral valve disorder, unspecified Expected: 06/09/2023, Expires: 06/09/2024 [facility] [employer] Comment on above: Expected: 06/09/2023, Expires: Start: 06-08-2023 End: 05-25-2024 Basic metabolic 1998 panel - Serum or Plasma Basic metabolic panel Lab Routine 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) Mitral valve stenosis and aortic valve stenosis Expected: 06/08/2023 (Approximate), Expires: 05/25/2024 [place] Comment on above: Expected: 06/08/2023 (Approximate), Expi res: 05/25/2024 Start: 05-29-2023 End: 05-29-2023 Patient encounter procedure 05/29/2023 1:00 PM EST Appointment [facility] Cath[facility]EP Lab [address] [place] [address] Kingston Stanley MD [address] [place] [phone] [facility] Start: 05-25-2023 End: 05-25-2025 US Heart Transesophageal Transesophageal echocardiogram (GALO) with contrast and 3D PRN CV Echocardiography Routine 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) Mitral valve stenosis and aortic valve stenosis Expected: 05/25/2023 (Approximate), Expires: 05/25/2025 [facility] [employer] [facility] Work Phone: Comment on above: Expected: 05/25/2023 (Approximate), Expi res: 05/25/2025 Start: 05-25-2023 End: 05-25-2023 Admission to same day surgery center 05/25/2023 8:00 AM EST - 05/25/2023 9:00 AM EST Surgery [facility] Cath[facility]EP Lab [address] [place] [phone] Lance Hobbs MD [address] [address] Right heart cath [facility] Comment on above: Right heart cath Start: 05-25-2023 Subsequent hospital visit by physician 05/25/2023 8:00 AM EST Hospital Encounter [facility] [address] [place] [address] Lance Hobbs MD [address] [address] 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) [facility] Comment on above: Congestive heart failure with right hear t failure (HCC) Start: 05-07-2023 End: 04-30-2024 Basic metabolic 1998 panel - Serum or Plasma Basic metabolic panel Lab Routine Primary hypertension 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 Bacterial endocarditis, unspecified chronicity Syncope, unspecified syncope type Expected: 05/07/2023 (Approximate), Expires: 04/30/2024 [facility] [employer] [facility] Work Phone: Comment on above: Expected: 05/07/2023 (Approximate), Expi res: 04/30/2024 Start: 05-07-2023 End: 04-30-2024 Natriuretic peptide B [Mass/volume] in Blood NT PRO BNP Lab Routine Primary hypertension 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 Bacterial endocarditis, unspecified chronicity Syncope, unspecified syncope type 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) Expected: 05/07/2023 (Approximate), Expires: 04/30/2024 [facility] [employer] Comment on above: Expected: 05/07/2023 (Approximate), Expi res: 04/30/2024 Start: 04-30-2023 End: 04-30-2024 CBC panel - Blood by Automated count CBC Lab Routine Primary hypertension 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 Bacterial endocarditis, unspecified chronicity Syncope, unspecified syncope type 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) Expected: 04/30/2023 (Approximate), Expires: 04/30/2024 [place] Comment on above: Expected: 04/30/2023 (Approximate), Expi res: 04/30/2024 Start: 01-16-2023 COVID-19 Vaccine ( season) COVID-19 Vaccine ( season) [place] Start: 02-18-2022 Pneumococcal Vaccine: 65+ Years (2 - PCV) Pneumococcal Vaccine: 65+ Years (2 - PCV) [place] Start: 02-18-2022 Pneumococcal Vaccine: 65+ Years (2 of 2 - PCV) Pneumococcal Vaccine: 65+ Years (2 of 2 - PCV) [place] Start: 01-16-2021 Influenza vaccination INFLUENZA (Season Ended) [facility] Start: 2020 ADVANCE DIRECTIVE DISCUSSION ADVANCE DIRECTIVE DISCUSSION [facility] Start: 2020 PNEUMOVAX AGE 65 AND OVER WITH 5YR LOOKBACK (#1) PNEUMOVAX AGE 65 AND OVER WITH 5YR LOOKBACK (#1) [facility] Start: 11-22-2017 Lipid panel Lipid Panel [place] Start: 06-24-2017 End: 06-24-2017 Appointment Appointment [facility] Work Phone: Start: 04-15-2017 End: 04-15-2017 Appointment Appointment [facility] Work Phone: Start: 03-16-2017 End: 03-16-2017 Appointment Appointment [facility] Work Phone: Start: 12-22-2016 End: 12-22-2016 Follow Up Appt 6 months Follow Up Appt 6 months [facility] Work Phone: Start: 12-22-2016 End: 12-22-2016 Pacer Clinic Pacer Clinic [facility] Work Phone: Start: 11-16-2016 DIABETES SCREEN DIABETES SCREEN [facility] Start: 09-29-2016 End: 09-29-2016 Follow Up Appt 6 months Follow Up Appt 6 months [facility] Work Phone: Start: 09-29-2016 End: 09-29-2016 PFM PFM [facility] Work Phone: Start: 08-21-2016 End: 08-22-2016 Thyroid stimulating hormone (TSH) *TSH [facility] Work Phone: Start: 08-21-2016 End: 08-22-2016 Thyroxine (T4) free *T4 free [facility] Work Phone: Start: 06-23-2016 End: 08-13-2016 Follow Up Appt 6 months Follow Up Appt 6 months [facility] Work Phone: Start: 06-23-2016 End: 08-13-2016 Pacer Clinic Pacer Clinic [facility] Work Phone: Start: 05-13-2016 End: 06-04-2016 Acth stimulation panel adrenal insufficiency *ACTH stimulation panel; for adrenal insufficiency. [facility] Work Phone: Start: 05-13-2016 End: 06-04-2016 Thyroid stimulating hormone (TSH) *TSH [facility] Work Phone: Start: 05-13-2016 End: 06-04-2016 Thyroxine (T4) free *T4 free [facility] Work Phone: Start: 05-13-2016 End: 06-04-2016 Triiodothyronine (T3) free *T3-Free [facility] Work Phone: Start: 04-21-2016 End: 04-21-2016 Endocrinology Referral Endocrinology Referral Donna (NICKOLAS) ROXI Ny, [address], [address], [facility], [place], [address] [facility] Work Phone: Start: 04-07-2016 End: 04-08-2016 *GRISELDA *GRISELDA [facility] Work Phone: Start: 04-07-2016 End: 04-08-2016 *CBC with Differential *CBC with Differential [facility] Work Phone: Start: 04-07-2016 End: 04-08-2016 *CMP Complete Metabolic Panel *CMP Complete Metabolic Panel [facility] Work Phone: Start: 04-07-2016 End: 04-08-2016 Erythrocyte sedimentation rate *Sedimentation Rate (ESR) [facility] Work Phone: Start: 04-07-2016 End: 04-08-2016 Rheumatoid factor quantitative *Rheumatoid Factor (quantitative) [facility] Work Phone: Start: 04-07-2016 End: 04-08-2016 Thyroxine (T4) free *T4 free [facility] Work Phone: Start: 04-07-2016 End: 04-08-2016 Triiodothyronine (T3) free *T3-Free [facility] Work Phone: Start: 03-31-2016 End: 04-08-2016 Ct abdomen & pelvis w/o contrast material CT Abdomen and pelvis; without contrast material [facility] Work Phone: Start: 03-31-2016 End: 04-08-2016 Ct thorax w/o contrast material CT Chest without contrast [facility] Work Phone: Start: 02-25-2016 End: 02-25-2016 Follow Up Appt 6 months Follow Up Appt 6 months [facility] Work Phone: Start: 02-25-2016 End: 08-13-2016 Follow Up Appt Other Follow Up Appt Other [facility] Work Phone: Start: 02-25-2016 End: 02-25-2016 MMM MMM [facility] Work Phone: Start: 01-10-2016 LIPID SCREEN LIPID SCREEN [facility] Start: 12-31-2015 End: 08-13-2016 Follow Up Appt 6 months Follow Up Appt 6 months [facility] Work Phone: Start: 12-31-2015 End: 08-13-2016 Pacer Clinic Pacer Clinic [facility] Work Phone: Start: 07-13-2015 End: 08-07-2015 INR Coag RelTime (PPP) *PT/INR - Standing Order [facility] Work Phone: Start: 07-12-2015 End: 10-16-2015 Echocardiography Echocardiogram (complete) [facility] Work Phone: Start: 07-12-2015 End: 07-12-2015 Follow Up Appt 6 months Follow Up Appt 6 months [facility] Work Phone: Start: 07-12-2015 End: 07-12-2015 PFM PFM [facility] Work Phone: Start: 06-29-2015 End: 08-13-2016 Follow Up Appt 6 months Follow Up Appt 6 months [facility] Work Phone: Start: 06-29-2015 End: 08-13-2016 Pacer Clinic Pacer Clinic [facility] Work Phone: Start: 2015 RSV Immunization aged 60 or older (1 - 1-dose 60+ series) RSV Immunization aged 60 or older (1 - 1-dose 60+ series) [place] Start: 05-17-2015 End: 08-13-2016 Follow Up Appt 3 months Follow Up Appt 3 months [facility] Work Phone: Start: 05-17-2015 End: 08-13-2016 Pacer Clinic Pacer [facility] Work Phone: Start: 03-21-2015 End: 08-13-2016 Follow Up Appt 3 months Follow Up Appt 3 months [facility] Work Phone: Start: 03-21-2015 End: 08-13-2016 Pacer Clinic Pacer [facility] Work Phone: Start: 01-25-2015 End: 01-25-2015 Follow Up Appt Other Follow Up Appt Other [facility] Work Phone: Start: 01-25-2015 End: 01-25-2015 INR Coag RelTime (PPP) *PT/INR - Standing Order [facility] Work Phone: Start: 12-20-2014 End: 12-20-2014 *CBC with Differential *CBC with Differential [facility] Work Phone: Start: 12-20-2014 End: 12-20-2014 *CMP Complete Metabolic Panel *CMP Complete Metabolic Panel [facility] Work Phone: Start: 12-20-2014 End: 12-20-2014 C reactive protein (hsCRP) *CRP - C-Reative Protein [facility] Work Phone: Start: 12-20-2014 End: 12-20-2014 Erythrocyte sedimentation rate *Sedimentation Rate (ESR) [facility] Work Phone: Start: 11-30-2014 End: 01-17-2015 Follow Up Appt 3 months Follow Up Appt 3 months [facility] Work Phone: Start: 11-30-2014 End: 01-17-2015 Pacer Clinic Pacer Clinic [facility] Work Phone: Start: 11-24-2014 End: 01-17-2015 Bacteria culture *CUB - Culture, Blood [facility] Work Phone: Start: 11-24-2014 End: 11-24-2014 Follow Up Appt 2 months Follow Up Appt 2 months [facility] Work Phone: Start: 11-24-2014 End: 11-24-2014 MMM MMM [facility] Work Phone: Start: 11-14-2014 End: 11-14-2014 Infectious Disease Infectious Disease Shruti Ware MD, [facility], [address] [facility] [address], [place], [address] [facility] Work Phone: Start: 11-03-2014 End: 11-16-2014 *BMP *BMP [facility] Work Phone: Start: 11-03-2014 End: 11-16-2014 *CBC with Differential *CBC with Differential [facility] Work Phone: Start: 11-03-2014 End: 11-16-2014 Erythrocyte sedimentation rate *Sedimentation Rate (ESR) [facility] Work Phone: Start: 10-25-2014 End: 11-16-2014 Follow Up Appt 1 month Follow Up Appt 1 month [facility] Work Phone: Start: 10-25-2014 End: 11-16-2014 MMM MMM [facility] Work Phone: Start: 10-19-2014 End: 11-16-2014 Follow Up Appt 1 month Follow Up Appt 1 month [facility] Work Phone: Start: 10-19-2014 End: 11-16-2014 Pacer Clinic Pacer Clinic [facility] Work Phone: Start: 09-21-2014 End: 09-21-2014 Cardiac Rehab Cardiac Rehab [facility] Work Phone: Start: 09-21-2014 End: 09-21-2014 Cardiovascular stress test using treadmill Treadmill stress test (no imaging) [facility] Work Phone: Start: 09-21-2014 End: 09-21-2014 Ecg routine ecg w/least 12 lds w/i&r EKG (In office) [facility] Work Phone: Start: 09-21-2014 End: 09-21-2014 Follow Up Appt 6 weeks Follow Up Appt 6 weeks [facility] Work Phone: Start: 09-21-2014 End: 09-21-2014 Follow Up Appt Other Follow Up Appt Other [facility] Work Phone: Start: 09-21-2014 End: 10-16-2014 INR Coag RelTime (PPP) *PT/INR - Standing Order [facility] Work Phone: Start: 09-21-2014 End: 09-21-2014 PFM PFM [facility] Work Phone: Start: 09-21-2014 End: 09-21-2014 Vascular Surgery Vascular Surgery Romeo Rao MD, [address], [place], [address] [facility] Work Phone: Start: 03-29-2014 End: 03-29-2014 Echocardiography Echocardiogram (complete) [facility] Work Phone: Start: 03-29-2014 End: 03-29-2014 Follow Up Appt 6 months Follow Up Appt 6 months [facility] Work Phone: Start: 03-29-2014 End: 03-29-2014 MMM MMM [facility] Work Phone: Start: 12-09-2013 End: 12-09-2013 Echocardiography Echocardiogram (complete) [facility] Work Phone: Start: 12-09-2013 End: 12-09-2013 Follow Up Appt 1 year Follow Up Appt 1 year [facility] Work Phone: Start: 12-09-2013 End: 12-09-2013 PFM PFM [facility] Work Phone: Start: 11-22-2012 End: 09-21-2014 *Hepatic Function Panel *Hepatic Function Panel [facility] Work Phone: Start: 11-22-2012 End: 11-22-2012 Follow Up Appt Other Follow Up Appt Other [facility] Work Phone: Start: 11-22-2012 End: 09-21-2014 Lipid panel [AGGREGATE] *Lipid Profile CC PCP [facility] Work Phone: Start: 11-22-2012 End: 11-22-2012 PFM PFM [facility] Work Phone: Start: 06-02-2012 End: 06-02-2012 Ecg routine ecg w/least 12 lds w/i&r EKG (In office) [facility] Work Phone: Start: 06-02-2012 End: 06-02-2012 Echocardiography Echocardiogram (complete) [facility] Work Phone: Start: 06-02-2012 End: 06-02-2012 Follow Up Appt 6 months Follow Up Appt 6 months [facility] Work Phone: Start: 11-21-2011 End: 11-21-2011 Follow Up Appt 6 months Follow Up Appt 6 months [facility] Work Phone: Start: 04-22-2011 End: 07-18-2011 Echocardiography Echocardiogram (complete) [facility] Work Phone: Start: 04-22-2011 End: 06-02-2012 Follow Up Appt 6 months Follow Up Appt 6 months [facility] Work Phone: Start: 2010 PROSTATE CANCER SCREENING DISCUSSION PROSTATE CANCER SCREENING DISCUSSION [facility] Start: 2005 Screening for malignant neoplasm of colon [facility] Start: 2005 Screening for malignant neoplasm of lung Lung Cancer Screening [place] Start: 2005 SHINGRIX VACCINE (1 of 2) SHINGRIX VACCINE (1 of 2) [facility] Start: 1974 DTaP/Tdap/Td Vaccines (1 - Tdap) DTaP/Tdap/Td Vaccines (1 - Tdap) [place] Start: 1974 Urine microalbumin profile DTAP,TDAP,TD (1 - Tdap) [facility] Start: 1973 Diabetes mellitus screening Diabetes Screening [place] Start: 1973 Hepatitis C screening Hepatitis C Screening [place] Start: 1967 Adult depression screening assessment DEPRESSION SCREENING [facility] Start: 1967 Depression Monitoring Depression Monitoring [place] Start: 1967 Depresssion Monitoring Depresssion Monitoring [place] Start: 1955 ABDOMINAL AORTIC ANEURYSM SCREENING ABDOMINAL AORTIC ANEURYSM SCREENING [facility] Start: 1955 Echocardiography Echocardiogram [place] Start: 1955 Medicare Annual Wellness (AWV) Medicare Annual Wellness (AWV) [place] Start: 1955 Screening for malignant neoplasm of colon [place] End: 06-18-2023 CT Heart W contrast IV [facility] Work Phone: Comment on above: Once for 1 Occurrences starting 06/18/19 24 until 06/18/2023 ECG 12 lead ECG 12 lead CV E CG Routine 07/30/2023 7:18 AM EDT [place] ECG 12 lead - CLINIC PERFORMED ECG 12 lead - CLINIC PERFORMED CV ECG Routine Acute deep vein thrombosis (DVT) of right lower extremity, unspecified vein (HCC) 06/09/2023 12:08 PM EST [facility] Work Phone: ECG 12 lead - CLINIC PERFORMED ECG 12 lead - CLINIC PERFORMED CV ECG Routine S/P mitral valve replacement 07/16/2023 8:15 AM EST [facility] Work Phone: ECG 12 lead - CLINIC PERFORMED ECG 12 lead - CLINIC PERFORMED CV ECG Routine Severe mitral regurgitation 08/06/2023 9:04 AM EDT [facility] Work Phone: ECG 12 lead - CLINIC PERFORMED ECG 12 lead - CLINIC PERFORMED CV ECG Routine Mitral valve insufficiency, unspecified etiology 09/03/2023 9:30 AM EDT [facility] Work Phone: ECG 12 lead - CLINIC PERFORMED ECG 12 lead - CLINIC PERFORMED CV ECG Routine Severe mitral regurgitation 09/10/2023 10:04 AM EDT [facility] Work Phone: ECG 12 lead STAT ECG 12 lead STA T CV ECG STAT 07/29/2023 1:23 PM EDT [facility] Work Phone: Patient Education [employer]%20[employer] OK[employer]%20[employer] D%20YOUR%20HEALTH [facility] Work Phone: End: 05-27-2023 Prothrombin time (PT) in Blood by Coagulation assay Protime-INR Lab Routine 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 Once (Lab) for 1 Occurrences starting 05/27/2023 until 05/27/2023 [facility] Work Phone: Comment on above: Once (Lab) for 1 Occurrences starting until 05/27/2023 End: 05-29-2023 Prothrombin time (PT) in Blood by Coagulation assay Protime-INR Lab STAT intermediate (current) use of anticoagulants STAT (Lab) for 1 Occurrences starting 05/29/2023 until 05/29/2023 [facility] Comment on above: STAT (Lab) for 1 Occurrences starting until 05/29/2023 RIGHT HEART CATH RIGHT HEART CAT H 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) [place] Immunizations Immunization Date Immunization Notes Care Provider [facility] 02-25-2023 influenza, injectabl e, quadrivalent, contains preservative Lance Hobbs MD Work Phone: [place] 02-25-2023 influenza virus vacc ine, unspecified formulation Cris Hennessy MD Work Phone: [place] 10-01-2021 Moderna SARS-CoV-2 Vaccination Lance Hobbs MD Work Phone: [place] 05-29-2021 Moderna SARS-CoV-2 Vaccination Lance Hobbs MD Work Phone: [place] 04-01-2021 influenza, seasonal, injectable Lance Hobbs MD Work Phone: [place] 03-24-2021 Moderna SARS-CoV-2 Vaccination Lance Hobbs MD Work Phone: [place] 03-01-2021 Moderna SARS-CoV-2 Vaccination Lance Hobbs MD Work Phone: [place] 02-18-2021 influenza, injectabl e, quadrivalent, contains preservative Lance Hobbs MD Work Phone: [place] 02-18-2021 pneumococcal polysaccharide vaccine, 23 valent Lance Hobbs MD Work Phone: [place] 01-24-2020 influenza, injectabl e, quadrivalent, preservative free Lance Hobbs MD Work Phone: [place] 12-16-2018 influenza, injectabl e, quadrivalent, contains preservative Lance Hobbs MD Work Phone: [place] 09-22-2018 zoster vaccine recombinant Lance Hobbs MD Work Phone: [place] 03-22-2018 influenza, seasonal, injectable Lance Hobbs MD Work Phone: [place] 01-25-2018 influenza, injectabl e, quadrivalent, preservative free Lance Hobbs MD Work Phone: [place] 01-21-2018 zoster vaccine recombinant Lance Hobbs MD Work Phone: [place] 01-12-2017 influenza, seasonal, injectable Lance Hobbs MD Work Phone: [facility] 12-31-2015 influenza, seasonal, injectable Lance Hobbs MD Work Phone: [place] 02-05-2015 influenza, seasonal, injectable Lance Hobbs MD Work Phone: [place] 09-13-2014 pneumococcal conjuga te vaccine, 10 valent Lance Hobbs MD Work Phone: [place] 09-13-2014 pneumococcal polysaccharide vaccine, 23 valent Lance Hobbs MD Work Phone: [place] 09-13-2014 pneumococcal vaccine , unspecified formulation Lance Hobbs MD Work Phone: [place] 08-25-2014 tuberculin skin test ; purified protein derivative solution, intradermal Lance Hobbs MD Work Phone: [place] 02-15-2014 influenza, seasonal, injectable Lance Hobbs MD Work Phone: [place] 02-15-2014 influenza, seasonal, injectable, preservative free Lance Hobbs MD Work Phone: [place] 01-21-2011 influenza virus vacc ine, unspecified formulation Brandin Alvarado MD Work Phone: [facility] 04-07-2007 influenza virus vacc ine, whole virus Lance Hobbs MD Work Phone: [place] Payers Date Payer Category Payer Unknown [employer] MEDICARE SUPPLEMENT [id number] 2021-Present [address] [place] [address] Supplement [id number] 2021 Unknown [id number] 2014 Private Health Insurance AETPAMELA ROD PPO [id number] 2014-Present PPO [id number] 2006 Medicare MEDICARE MEDICAR E PART A AND B [id number] 2006-Present [address] [place] [address] Medicare [id number] 2006 Medicare [id number] 1955 Unknown [id number] Private Health Insurance Social History Date Type Detail Facility Start: 09-26-2015 End: 02-23-2024 Tobacco smoking status NHIS Former smoker [facility] Start: 04-30-1975 End: 05-18-2022 History of tobacco use Current smoker [facility] Work Phone: Start: 04-30-1975 End: 05-18-2022 History of tobacco use Cigarette Smoker [facility] Work Phone: Start: 09-26-2015 End: 07-30-2023 Cigarettes smoked current (pack per day) - Reported [place] Start: 09-26-2015 End: 01-01-2024 Alcohol intake Current drinker of alcohol (finding) [facility] Start: 04-11-2009 Alcohol Comment Seldomly [facility] Start: 1955 Sex Assigned At Not on file [facility] Start: 04-30-1975 Tobacco smoking stat [facility] Smokes tobacco daily [place] Start: 04-30-2023 End: 02-23-2024 Tobacco use and exposure Former smokeless tobacco user [place] End: 04-30-2015 History of tobacco use User of smokeless tobacco [place] Start: 04-30-2023 End: 07-30-2023 Tobacco use panel [place] Within the last year , have you been afraid of your partner or ex-partner? No [place] Start: 1955 Sex Assigned At Male [facility] Start: 07-09-2023 Gender identity Identifies as male gender (finding) [facility] (I/We) worried wheth er (my/our) food would run out before (I/we) got money to buy more. Never true [facility] In the past 12 month s, has lack of transportation kept you from medical appointments or from getting medications? No [place] Start: 01-22-2024 End: 02-23-2024 Alcoholic beverage intake Ex-drinker (finding) [facility] NEGATED: Highlighted rowStart: JENNY History of tobacco use Passive smoker [place] Medical Equipment Procedure Code Equipment Code Equipment Origin al Text Equipment Identifier Dates [place] Ptfe 1.2 Cm X 10 Cm - [id number] Start: 01-13-2011 Comment on above: Description: pledget s x 3 pieces Valve Mitrl 20mm 33mm Biocor - [id number] Start: 01-13-2011 Comment on above: Description: mvr Plug Cv 9mm 12mm .071in Amplzr - [id number] Start: 07-29-2023 Kit Embo Avm Phylicia x 18 - [id number] Start: 01-06-2024 Device Clsr Mynxgrip 6-7fr Grn - 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 11:58 AM EDT Hold coumadin until follow up appointment with neurosurgeon. Lara Tovar RN - 01/07/2024 11:24 AM EDT Denzel Bernstein DO - 01/07/2024 11:25 AM EDT Follow up with Neurosurgery in 2 weeks The following attachments cannot be sent through Care Everywhere.[facility] BRAIN ANGIOGRAMClosed Head Injury ([place])Closed Head Injury Discharge Instructions ([place]i)documented in this encounter [place] 01-07-2024 History of Present illness Narrative Images from the original note were not included. PHYSICAL THERAPY [facility] Re-Evaluation Name/MRN: Ange Walls ([id number]) Evaluation Date: 01/07/2024 Date of : 1955 Admission Date: 01/01/2024 5:23 PM Age: 68 y.o. Room/Bed: / A Discharge Recommendation: Home with assist PRN (Pt with help from spouse and children prn) Equipment Needed: No Assessment IMPRESSION: Pt was able to perfrom STS, sit to supine, ambulation, and stair navigation independently with supervision from SPT. Pt showed no LOB during ambulation and stairs. Recommended pt to home with help from family as needed. Admitting Diagnosis: SDH with R MMA embolization Prognosis: good Performance Deficits /Impairments: N/A Decision Making: Low Complexity Subjective RN approved pt for therapy treatment. Pt seated in chair upon entry. Pt consented to therapy. Pt with reports of headache and pain in low back. Pt rates pain in back as 5/10 and reports pain as feeling stiff from lying in bed for prolonged period. Reports in improvement in LB pain after ambulating. Pt reports headache is a 7/10. Headache did not worsen during session. Pain: 0-10 pain scale: 7/10 Location: head (7/10)/low back (5/10) Past Medical History: Past Medical History: Diagnosis Date Anemia Arthritis Bone infection (HCC) spine CAD (coronary artery disease) Chronic back pain Chronic kidney disease 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) 04/30/2023 COPD (chronic obstructive pulmonary disease) (HCC) Depression DVT (deep venous thrombosis) (HCC) Endocarditis History of blood transfusion Hyperlipidemia Hypertension 01/13/2011 Hyperthyroidism Pacemaker Paroxysmal A-fib (CMS/HCC) (HCC) Pneumonia Past Surgical History: Past Surgical History: Procedure Laterality Date CARDIAC CATHETERIZATION N/A 05/25/2023 Performed by Lance Hobbs MD at [facility] Cardiac Cath/EP Lab CARDIAC VALVE REPLACEMENT 2010 [facility] HARDWARE REMOVAL Right 05/02/2016 SCREW IN RIGHT 4TH TOE INSERT / REPLACE / REMOVE PACEMAKER 10/10/2014 MITRAL VALVE REPLACEMENT 07/27/2014 bioprosthetic valve TRICUSPID VALVE SURGERY 07/27/2014 Repair Admission Diagnosis: Patient Active Problem List Diagnosis Date Noted Brain compression ([facility]) ([facility]) 01/04/2024 Fall 01/04/2024 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 01/04/2024 SDH (subdural hematoma) ([facility]) 01/01/2024 Severe mitral regurgitation 07/29/2023 Chronic diastolic heart failure ([facility]) 07/16/2023 Pulmonary hypertension ([facility]) 07/16/2023 CKD (chronic kidney disease) stage 2, GFR 60-89 ml/min 07/16/2023 S/P mitral valve replacement 06/12/2023 Mitral valve insufficiency 06/12/2023 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) ([facility]) 04/30/2023 Depressive disorder 04/30/2023 Bacterial endocarditis 04/30/2023 Anxiety disorder 04/30/2023 Back problem 04/30/2023 Vitamin D deficiency 02/25/2023 Syncope 02/13/2023 Anticoagulated on Coumadin 01/28/2023 Solitary pulmonary nodule 10/27/2022 Pleurisy 10/07/2022 Anemia 09/08/2022 Hypothyroidism 04/07/2016 Hyperlipidemia 01/25/2015 Presence of cardiac pacemaker 10/19/2014 History of drug abuse ([facility]) ([facility]) 04/02/2011 Heart valve replaced by other means 04/02/2011 DVT (deep venous thrombosis) ([facility]) 01/23/2011 Acute blood loss anemia 01/18/2011 Peripheral vascular disease ([facility]) 01/13/2011 Chronic pain 01/13/2011 Bradycardia 01/13/2011 Vegetative endocarditis of mitral valve 01/08/2011 Osteomyelitis ([facility]) 01/08/2011 Prosthetic cardiac paravalvular leak, initial encounter 06/10/2023 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 ([facility]) 04/30/2023 Alcohol use disorder, severe, dependence ([facility]) 11/23/2017 Medical Precautions: No active isolations Proper PPE donned/doffed in accordance with facility standards. Fall Risk: Roth Fall Risk Score: 60 (High Risk) Precautions/Restrictions: Lines/Drains/Airways: tele, peripheral IV Family/Caregiver Present: none Overall Cognitive Status: WNL Overall Orientation Status: Oriented x4 Vision: not assessed this session Hearing: normal Social/Functional History Patient admitted from home. Lives With: Spouse Type of Home: single family home Home Layout: Two Level Home and Bed/Bath Upstairs Home Access: Stairs to Enter with Rails (# of stairs: 3) Toilet: Standard Home Equipment: none Homemaking Responsibilities: Independent Receives Help From: Family Active Hot Box Operator: Yes Prior Level of Function ADL Assistance: Independent Ambulation Assistance: Independent Transfer Assistance: Independent Objective Lower Extremity Assessment AROM: WNL PROM: Not assessed this session Strength: WNL LE grossly 5/5 Sensation: Not assessed this session Balance: Pt able to maintain static standing balance for 3 min Bed Mobility: Sit to supine: Independent Transfers Sit to stand: Independent Stand to sit: Independent Ambulation Ambulation 1 Assistive device(s) used: None Assist level: Independent, SBA Distance (ft): 200 Quality of gait: No gait deviations, No LOB, Pt reports partially amputated toes causing him to have wider OCTAVIANO and decreased initial heel contact Stairs Stairs 1 Assistive device(s) used: None Assist level: Independent Number of steps: 12 Rails: Bilateral; used one railing on ascent and descent Additional information: reciprocal going up, reciprocal going down Heart Failure on Admission Dyspnea: No Heart failure diagnosis: No Outcome Measures AM-PAC How much HELP from another person do you currently need Turning from your back to your side while in a flat bed without using bedrails?: None Moving from lying on your back to sitting on the side of a flat bed without using bedrails?: None Moving to and from a bed to a chair (including a wheelchair)?: None Standing up from a chair using your arms (wheelchair or bedside chair)?: None Walking in a hospital room?: None Stair climbing assessed?: Yes Climbing 3-5 steps with a railing?+: None AM-PAC Inpatient Mobility Raw Score : 24 AM-PAC Inpatient Mobility Raw Score (No Stairs) : 20 JH-HLM JH-HLM Score: Walked 25 ft or more (i.e. walked outside of room) Plan No skilled acute PT indicated at this time. Please reconsult should changes occur. Safety/Education Safety Safety Devices in place: All fall risk precautions in place, call light within reach, left in bed, gait belt, and no alarms engaged upon entry Restraints: No Education Education Given To: patient Education Provided: PT Role Education Method: Verbal Barriers to Learning: None Education Outcome: Verbalized Understanding Goals Patient Stated Goal: To return home Encounter Problems Encounter Problems (Resolved) Mobility Patient will ambulate 125 feet with modified independence and no assistive device in order to improve safety and independence with mobility. (Completed) Start: 01/04/24 Expected End: 02/01/24 Resolved: 01/07/24 Transfers Patient will perform bed mobility with modified independence in order to improve independence and prepare for out of bed mobility. (Completed) Start: 01/04/24 Expected End: 02/01/24 Resolved: 01/07/24 Patient will complete functional transfer with modified independence in order to prepare for ambulation. (Completed) Start: 01/04/24 Expected End: 02/01/24 Resolved: 01/07/24 Therapy Time Individual Co-treatment Time In 1020 Time Out 1037 Minutes 17 Ed[place]ira SKINNER Patient's Physical Therapy Plan of Care supervision is transferred to a [facility] Physical Therapist. Goals and/or treatment plan was established in collaboration with patient/family/other representatives. Images from the original note were not included. OCCUPATIONAL THERAPY [facility] Re-Evaluation Name/MRN: Ange Walls ([id number]) Evaluation Date: 01/07/2024 Date of : 1955 Admission Date: 01/01/2024 5:23 PM Age: 68 y.o. Room/Bed: T2-/T2 A Discharge Recommendation: Home with assist PRN Equipment Needed: No Assessment IMPRESSION: Patient completed self-care and fxl mobility tasks this session with mod I/ indep. Patient has met goals and is appropriate for DC for OT services. OT recommends home with assist PRN. Admitting Diagnosis: SDH, s/p fall Performance Deficits /Impairments: Increased Pain Prognosis: Good Decision Making: Low Complexity Subjective Patient agreeable to tx session RN cleared patient for tx. Pain: 0-10 pain scale: 5/10 Location: lower back Past Medical History: Past Medical History: Diagnosis Date Anemia Arthritis Bone infection ([facility]) spine CAD (coronary artery disease) Chronic back pain Chronic kidney disease 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 ([facility]) 04/30/2023 COPD (chronic obstructive pulmonary disease) ([facility]) Depression DVT (deep venous thrombosis) ([facility]) Endocarditis History of blood transfusion Hyperlipidemia Hypertension 01/13/2011 Hyperthyroidism Pacemaker Paroxysmal A-fib ([facility]) ([facility]) Pneumonia Past Surgical History: Past Surgical History: Procedure Laterality Date CARDIAC CATHETERIZATION N/A 05/25/2023 Performed by Lance Hobbs MD at [facility] Cardiac Cath/EP Lab CARDIAC VALVE REPLACEMENT 2010 [facility] HARDWARE REMOVAL Right 05/02/2016 SCREW IN RIGHT 4TH TOE INSERT / REPLACE / REMOVE PACEMAKER 10/10/2014 MITRAL VALVE REPLACEMENT 07/27/2014 bioprosthetic valve TRICUSPID VALVE SURGERY 07/27/2014 Repair Admission Diagnosis: Patient Active Problem List Diagnosis Date Noted Brain compression ([facility]) ([facility]) 01/04/2024 Fall 01/04/2024 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 01/04/2024 SDH (subdural hematoma) ([facility]) 01/01/2024 Severe mitral regurgitation 07/29/2023 Chronic diastolic heart failure ([facility]) 07/16/2023 Pulmonary hypertension ([facility]) 07/16/2023 CKD (chronic kidney disease) stage 2, GFR 60-89 ml/min 07/16/2023 S/P mitral valve replacement 06/12/2023 Mitral valve insufficiency 06/12/2023 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) ([facility]) 04/30/2023 Depressive disorder 04/30/2023 Bacterial endocarditis 04/30/2023 Anxiety disorder 04/30/2023 Back problem 04/30/2023 Vitamin D deficiency 02/25/2023 Syncope 02/13/2023 Anticoagulated on Coumadin 01/28/2023 Solitary pulmonary nodule 10/27/2022 Pleurisy 10/07/2022 Anemia 09/08/2022 Hypothyroidism 04/07/2016 Hyperlipidemia 01/25/2015 Presence of cardiac pacemaker 10/19/2014 History of drug abuse ([facility]/HCC) ([facility]) 04/02/2011 Heart valve replaced by other means 04/02/2011 DVT (deep venous thrombosis) ([facility]) 01/23/2011 Acute blood loss anemia 01/18/2011 Peripheral vascular disease ([facility]) 01/13/2011 Chronic pain 01/13/2011 Bradycardia 01/13/2011 Vegetative endocarditis of mitral valve 01/08/2011 Osteomyelitis ([facility]) 01/08/2011 Prosthetic cardiac paravalvular leak, initial encounter 06/10/2023 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 ([facility]) 04/30/2023 Alcohol use disorder, severe, dependence ([facility]) 11/23/2017 Medical Precautions: No active isolations Proper PPE donned/doffed in accordance with facility standards. Fall Risk: Roth Fall Risk Score: 60 (High Risk) Precautions/Restrictions: Lines/Drains/Airways: PIV Family/Caregiver Present: none Overall Cognitive Status: WNL Overall Orientation Status: Oriented x4 Social/Functional History Patient admitted from home. Lives With: Spouse Type of Home: single family home Home Layout: Two Level Home and Bed/Bath Upstairs Home Access: Stairs to Enter with Rails (# of stairs: 3) Toilet: Standard Home Equipment: none Homemaking Responsibilities: Independent Receives Help From: Family Active Hot Box Operator: Yes Prior Level of Function ADL Assistance: Independent Ambulation Assistance: Independent Transfer Assistance: Independent Objective ADLs LE Dressing: Independent Toileting: Independent Grooming: Independent Upper Extremity Assessment AROM: WNL PROM: Not assessed this session Strength: WFL Vision: not assessed this session Hearing: normal Bed Mobility N/A Transfers/Functional Mobility Sit to stand: Modified Independent Stand to sit: Independent Toilet: Modified Independent Standing balance: Independent Functional mobility: Modified Independent Device(s) used: IV Pole Heart Failure on Admission Dyspnea: No Heart failure diagnosis: N/A AM-PAC AM-PAC Inpatient Daily Activity Raw Score: 24 ADL Inpatient CMS G-Code Modifier: CH Plan No skilled acute OT indicated at this time. Please reconsult should changes occur. Safety/Education Safety Safety Devices in place: All fall risk precautions in place, call light within reach, and left in chair Restraints: No Education Education Given To: patient Education Provided: OT Role, Plan of Care, Energy Conservation, Fall Prevention Education, Discharge Recommendations, and Benefits of Increasing Activity Education Method: Verbal Barriers to Learning: None Education Outcome: Verbalized Understanding Goals Patient Stated Goal: home Encounter Problems Encounter Problems (Resolved) Balance Patient will maintain dynamic standing balance for 10+ minutes with independence in order to demonstrate decreased risk of falling. (Goal Met) Start: 01/04/24 Expected End: 02/01/24 Resolved: 01/07/24 Bathing Patient will utilize adaptive techniques to bathe body with Mod I (Goal Met) Start: 01/04/24 Expected End: 02/01/24 Resolved: 01/07/24 Dressing Upper Extremities Patient will complete upper body dressing with Mod I (Goal Met) Start: 01/04/24 Expected End: 02/01/24 Resolved: 01/07/24 Dressings Lower Extremities Patient will dress lower body with Mod I (Goal Met) Start: 01/04/24 Expected End: 02/01/24 Resolved: 01/07/24 Mobility Patient will demonstrate functional ambulation independently (Goal Met) Start: 01/04/24 Expected End: 02/01/24 Resolved: 01/07/24 OT Misc Misc Pt will complete BUE AROM exercises in all planes x 15 reps (Adequate for Discharge) Start: 01/04/24 Expected End: 02/01/24 Resolved: 01/07/24 Transfers Patient will complete functional transfer with no assistive device with independence in order to prepare for ambulation. (Goal Met) Start: 01/04/24 Expected End: 02/01/24 Resolved: 01/07/24 Patient will perform bed mobility with independence in order to improve independence and prepare for out of bed mobility. (Goal Met) Start: 01/04/24 Expected End: 02/01/24 Resolved: 01/07/24 Therapy Time Individual Co-treatment Time In 1006 Time Out 1018 Minutes 12 [facility] Patient's Occupational Therapy Plan of Care supervision is transferred to a [facility] Occupational Therapist. Goals and/or treatment plan was established in collaboration with patient/family/other representatives. Endovascular Neurology Note Patient Name:Brianne Walls Patient : 1955 Acct: [id number] Date of Admission: 01/01/2024 Room/Bed: T2-211/T2-211 A PCP: ARTHUR CARVALHO MD HPI: Ange Walls is a 68 y.o. male presenting with headaches. Pt had 2 falls in past few weeks. Reports that he hit his head with the second fall and subsequently developed a headache. He was at PCP for check of INR and mentioned headache for which CT was ordered. Imaging identified R SDH and pt was transferred to [facility] for further care. New Complaint: VSS overnight. Feels that his headache may be slightly better today Current anticoagulants On hold d/t SDH ROS: Review of Systems Constitutional: Positive for activity change. HENT: Negative. Eyes: Negative. Respiratory: Negative. Cardiovascular: Negative. Gastrointestinal: Negative. Endocrine: Negative. Genitourinary: Negative. Musculoskeletal: Negative. Skin: Negative. Neurological: Positive for headaches. Psychiatric/Behavioral: Negative. Mental Status Alert. Oriented to person, place, time and situation. Speech is normal. Language is fluent with no aphasia. Attention and concentration are normal. Cranial Nerves CN II: Visual acuity is normal. Visual howard full to confrontation. CN III, IV, : Extraocular movements intact bilaterally. Normal lids and orbits bilaterally. Pupils equal round and reactive to light bilaterally. CN V: Facial sensation is normal. CN VII: Full and symmetric facial movement. CN VIII: Hearing is normal. CN IX, X: Palate elevates symmetrically. Normal gag reflex. CN XI: Shoulder shrug strength is normal. CN XII: Tongue midline without atrophy or fasciculations. Motor Strength is 5/5 throughout all four extremities. Sensory Sensation is intact to light touch, pinprick, vibration and proprioception in all four extremities. Physical Exam Eyes: General: Lids are normal. Extraocular Movements: Extraocular movements intact. Pupils: Pupils are equal, round, and reactive to light. Cardiovascular: Rate and Rhythm: Normal rate and regular rhythm. Pulmonary: Effort: Pulmonary effort is normal. Breath sounds: Normal breath sounds. Abdominal: General: Abdomen is flat. Bowel sounds are normal. Skin: General: Skin is warm and dry. Capillary Refill: Capillary refill takes less than 2 seconds. Neurological: Mental Status: He is alert. Motor: Motor strength is normal. Psychiatric: Speech: Speech normal. Current Hospital Medications: Current Facility-Administered Medications: acetaminophen (Tylenol) tablet 1,000 mg, 1,000 mg, Oral, 4 times per day, Chrissy Almeida DO, 1,000 mg at 01/07/24 0507 albuterol 108 (90 Base) MCG/ACT inhaler 2 puff, 2 puff, Inhalation, q4h PRN, Nam Dougherty MD atorvastatin (Lipitor) tablet 40 mg, 40 mg, Oral, Nightly, Abhay Rios MD, 40 mg at 01/06/242015 citalopram (CeleXA) tablet 20 mg, 20 mg, Oral, Daily, Nam Dougherty MD, 20 mg at 01/07/24 0839 dapagliflozin (Farxiga) tablet 10 mg, 10 mg, Oral, Daily, Chiquis Payne APRN [facility], 10 mg at 01/07/24 0839 dextrose 5 % infusion, 100 mL/hr, IntraVENous, PRN, Nam Dougherty MD dextrose 50 % solution 12.5 g, 12.5 g, IntraVENous, PRN, Nam Dougherty MD docusate sodium (Colace) capsule 100 mg, 100 mg, Oral, BID, Chiquis Payne APRN [facility], 100 mg at 01/06/242015 doxepin (SINEquan) capsule 150 mg, 150 mg, Oral, Nightly, Nam Dougherty MD, 150 mg at 01/06/24 2333 [Held by provider] furosemide (Lasix) tablet 40 mg, 40 mg, Oral, Daily PRN, Nam Dougherty MD glucagon (human recombinant) injection 1 mg, 1 mg, IntraMUSCular, PRN, Nam Dougherty MD glucose oral gel 15 g, 15 g, Oral, PRN, Nam Dougherty MD HYDROmorphone (Dilaudid) injection 0.5 mg, 0.5 mg, IntraVENous, q2h PRN, Nam Dougherty MD, 0.5 mg at 01/07/24 0507 levothyroxine (Synthroid, Levoxyl) tablet 100 mcg, 100 mcg, Oral, qAM AC, Nam Dougherty MD, 100 mcg at 01/07/24 0507 metoprolol succinate XL (Toprol-XL) 24 hr tablet 50 mg, 50 mg, Oral, Daily, Nam Dougherty MD, 50 mg at 01/07/24 0839 naloxone (Narcan) injection 0.4 mg, 0.4 mg, IntraVENous, q5 min PRN, Cris Hennessy MD ondansetron ODT (Zofran-ODT) disintegrating tablet 4 mg, 4 mg, Oral, q8h PRN OR ondansetron (Zofran) injection 4 mg, 4 mg, IntraVENous, q6h PRN, Nam Dougherty MD oxyCODONE (Roxicodone) immediate release tablet 5 mg, 5 mg, Oral, q4h PRN OR oxyCODONE (Roxicodone) immediate release tablet 10 mg, 10 mg, Oral, q4h PRN, Chrissy Almeida DO, 10 mg at 01/07/24 0737 polyethylene glycol (PEG) 3350 (Miralax) packet 17 g, 17 g, Oral, Daily PRN, Nam Dougherty MD sennosides (Senokot) tablet 8.6 mg, 1 tablet, Oral, Nightly, KIARA Arevalo CNP, 8.6 mg at 01/06/242015 sodium chloride 0.9 % infusion, 75 mL/hr, IntraVENous, Continuous, KIARA Arevalo CNP, Last Rate: 75 mL/hr at 01/06/24 1454, 75 mL/hr at 01/06/24 1454 sodium chloride 0.9% (NS) flush 30 mL, 30 mL, IntraVENous, PRN, Nam Dougherty MD sodium chloride 0.9% (NS) flush 30 mL, 30 mL, IntraVENous, PRN, Nam Dougherty MD spironolactone (Aldactone) tablet 25 mg, 25 mg, Oral, Daily, KIARA Arevalo CNP, 25 mg at 01/07/24 0839 tamsulosin (Flomax) 24 hr capsule 0.4 mg, 0.4 mg, Oral, Daily, Nam Dougherty MD, 0.4 mg at 01/07/24 0839 traZODone (Desyrel) tablet 200 mg, 200 mg, Oral, Nightly, Nam Dougherty MD, 200 mg at 01/06/242014 Continuous Infusions: sodium chloride, 75 mL/hr, Last Rate: 75 mL/hr (01/06/24 1454) Allergies: Patient has no known allergies. Relevant Results CLINICAL INDICATION: Follow-up intracranial hematoma TECHNIQUE: Transaxial CT sequence performed through the head with 3 mm reconstruction. Sagittal and Coronal reconstruction images included. Dose reduction was employed with automated exposure control. COMPARISON: 01/01/2024 at 2040 hours FINDINGS: There is redemonstration of a right frontal parietal mixed attenuating subdural collection measuring up to 1.7 cm in maximal thickness, unchanged from the prior exam. There is mass effect with mild effacement of the subjacent cortical sulci. There is a right to left midline shift measuring up to 3 mm. Focal encephalomalacia and gliosis noted in the inferior right frontal lobe. There is stable thin subdural hemorrhage noted about the posterior falx on the right. Ventricles and sulci are normal in size and configuration for age. No mass effect or midline shift. No CT evidence of an acute large territorial infarction. Imaged paranasal sinuses and mastoid air cells are well aerated. Calvarium is unremarkable. IMPRESSION: 1. Stable right frontoparietal subdural hematoma with stable thin subdural hemorrhage noted in the posterior falx on the right. Unchanged minimal right to left midline shift measuring up to 3 mm. Assessment/Plan Principal Problem: SDH (subdural hematoma) (HCC) R SDH s/p carl embolization of middle meningeal artery Hx of bioprosthetic valve on warfarin Hx of CAD Hx of endocarditis Plan/ recommendations: - CT head stable at this time - will need repeat CT head 7-10 days post embolization - would hold warfarin until follow up CT done - no lifting > 10 pounds until Thursday am 01/09/24 - ok to shower today. No soaking, swimming, or bathing for 7 days - could consider short term, low dose course of decadron for headache as carl embolization can result in some increase in headache - follow up with Dr. Stover 02/23/24 at 1:[address] Stover NEUROSURGERY and SPINE FOLLOW-UP NOTE Patient Name: Brianne Walls Patient : 1955 PCP: ARTHUR CARVALHO MD Chief Complaint: Fall History of Present Ilness: 68 yo male s/p fall with R SDH. He underwent right MMA embolization yesterday. He has a mild headache this morning, otherwise denies any new symptoms. Past Medical History: Past Medical History: Diagnosis Date Anemia Arthritis Bone infection (HCC) spine CAD (coronary artery disease) Chronic back pain Chronic kidney disease 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) 04/30/2023 COPD (chronic obstructive pulmonary disease) ([facility]) Depression DVT (deep venous thrombosis) ([facility]) Endocarditis History of blood transfusion Hyperlipidemia Hypertension 01/13/2011 Hyperthyroidism Pacemaker Paroxysmal A-fib (CMS/HCC) (HCC) Pneumonia Past Surgical History: Past Surgical History: Procedure Laterality Date CARDIAC CATHETERIZATION N/A 05/25/2023 Performed by Lance Hobbs MD at [facility] Cardiac Cath/EP Lab CARDIAC VALVE REPLACEMENT 2010 [facility] HARDWARE REMOVAL Right 05/02/2016 SCREW IN RIGHT 4TH TOE INSERT / REPLACE / REMOVE PACEMAKER 10/10/2014 MITRAL VALVE REPLACEMENT 07/27/2014 bioprosthetic valve TRICUSPID VALVE SURGERY 07/27/2014 Repair Home Medications: Prior to Admission medications Medication Sig Start Date End Date Taking? Authorizing Provider albuterol 108 (90 Base) MCG/ACT inhaler TAKE 2 PUFFS INHALED 6 TIMES PER DAY FOR 30 DAYS NEEDED WHEEZING/SHORTNESS OF BREATH. 03/10/23 Historical Provider, aspirin 81 MG EC tablet Take 1 tablet (81 mg) by mouth daily. Take aspirin until INR above 2.0 07/31/23 07/30/24 Selena Leonardo, P[employer] H[employer]ERY SUPERVISOR - [employer]FORMATION [employer]NA[employer]ERS atorvastatin (Lipitor) 20 MG tablet Take 20 mg by mouth in the morning. Historical Provider, buPROPion SR (Wellbutrin SR) 150 MG 12 hr tablet Take 150 mg by mouth 2 times daily. 02/26/23 Historical Provider, citalopram (CeleXA) 20 MG tablet Take 20 mg by mouth daily. 08/17/23 Historical Provider,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 Nam Dougherty MD, 0.5 mg at 01/02/24507 Insulin Lispro (Humalog) injection 0-12 Units, 0-12 Units, SubCUTAneous, TID WC AND Insulin Lispro (Humalog) injection 0-12 Units, 0-12 Units, SubCUTAneous, Nightly, Nam Dougherty MD levothyroxine (Synthroid, Levoxyl) tablet 100 mcg, 100 mcg, Oral, qAM AC, Nam Dougherty MD, 100 mcg at 01/02/24508 metoprolol succinate XL (Toprol-XL) 24 hr tablet 50 mg, 50 mg, Oral, Daily, Nam Dougherty MD mupirocin (Bactroban) 2 % ointment 1 Application, 1 Application, Nasal, BID, Nam Dougherty MD, 1 Application at 01/01/242057 naloxone (Narcan) injection 0.4 mg, 0.4 mg, IntraVENous, q5 min PRN, Cris Hennessy MD ondansetron ODT (Zofran-ODT) disintegrating tablet 4 mg, 4 mg, Oral, q8h PRN OR ondansetron (Zofran) injection 4 mg, 4 mg, IntraVENous, q6h PRN, Nam Dougherty MD oxyCODONE (Roxicodone) immediate release tablet 2.5 mg, 2.5 mg, Oral, q4h PRN OR oxyCODONE (Roxicodone) immediate release tablet 5 mg, 5 mg, Oral, q4h PRN, Nam Dougherty MD, 5 mg at 01/02/24 0447 polyethylene glycol (PEG) 3350 (Miralax) packet 17 g, 17 g, Oral, Daily PRN, Nam Dougherty MD sodium chloride 0.9% (NS) flush 30 mL, 30 mL, IntraVENous, PRN, Nam Dougherty MD sodium chloride 0.9% (NS) flush 30 mL, 30 mL, IntraVENous, PRN, Nam Dougherty MD tamsulosin (Flomax) 24 hr capsule 0.4 mg, 0.4 mg, Oral, Daily, Nam Dougherty MD traZODone (Desyrel) tablet 200 mg, 200 mg, Oral, Nightly, Nam Dougherty MD, 200 mg at 01/01/242056 ARE THERE PERTINENT UPDATES TO PAST,FAMILY, OR SOCIAL HISTORY?: No Subjective: Review of Systems Constitutional: Negative for chills, diaphoresis and fever. HENT: Negative for ear pain, rhinorrhea and sore throat. Eyes: Negative for pain and redness. Respiratory: Positive for cough (chronic - pt quit smoking 6 months ago). Negative for shortness of breath. Cardiovascular: Negative for chest pain. Gastrointestinal: Negative for abdominal pain, constipation, diarrhea, nausea and vomiting. Endocrine: Negative for polyuria. Genitourinary: Negative for flank pain and frequency. Musculoskeletal: Negative for back pain and neck pain. Skin: Negative for rash and wound (healing wound back of right scalp from previous fall and suture removal). Neurological: Positive for weakness (global weakness that is intermittent - happens before a fall) and headaches (improved since admission). Psychiatric/Behavioral: Negative for behavioral problems and confusion. PHQ In the last 2 weeks have you had: Little interest or pleasure in doing things No Been feeling down, depressed, or hopeless No If greater then 0, place CLP consult Date PHQ completed: yes Objective: Vitals: 01/02/24 0300 01/02/24 0400 01/02/24 0508 01/02/24 0600 BP: 106/66 110/62 Patient Position: Pulse: 70 70 70 70 Resp: 15 (!) 11 15 15 Temp: TempSrc: SpO2: 90% 92% 92% 95% No intake or output data in the 24 hours ending 01/02/24 0603 No intake/output data recorded. Last BM: None since admission Diet: Regular diet CVP: N/A Chest Tubes: N/A PHYSICAL: Physical Exam Constitutional: General: He is not in acute distress. Appearance: Normal appearance. He is normal weight. HENT: Head: Normocephalic and atraumatic. Comments: Healed wound to right posterior inferior scalp Right Ear: External ear normal. Left Ear: External ear normal. Nose: Nose normal. Mouth/Throat: Mouth: Mucous membranes are moist. Eyes: Extraocular Movements: Extraocular movements intact. Cardiovascular: Rate and Rhythm: Normal rate and regular rhythm. Pulses: Normal pulses. Pulmonary: Effort: Pulmonary effort is normal. No respiratory distress. Abdominal: General: There is no distension. Palpations: Abdomen is soft. Tenderness: There is no abdominal tenderness. There is no guarding or rebound. Musculoskeletal: Cervical back: No rigidity or tenderness. Neurological: Mental Status: He is alert and oriented to person, place, and time. Cranial Nerves: No cranial nerve deficit. Sensory: No sensory deficit. Sutures or juanjo? No O2: Room air Data Review Data CBC with Differential: Lab Results Component Value Date WBC 8.7 01/02/2024 RBC 3.67 (L) 01/02/2024 HGB 10.8 (L) 01/02/2024 HCT 33.1 (L) 01/02/2024 PLT 163 01/02/2024 CMP: Lab Results Component Value Date NA 133 (L) 01/02/2024 K 4.2 01/02/2024 CL 104 01/02/2024 CO2 23 01/02/2024 BUN 30 (H) 01/02/2024 CREATININE 0.91 01/02/2024 GLUCOSE 133 (H) 01/02/2024 CALCIUM 9.2 01/02/2024 BMP: Hepatic Function Panel:Ionized Calcium: No components found for: IONCA Magnesium: No results found for: MG Phosphorus: No results found for: PHOS PT/INR: Lab Results Component Value Date PROTIME 15.1 (H) 01/01/2024 INR 1.4 (H) 01/01/2024 PTT: No results found for: APTT [APTT Last 3 Troponin: No results found for: TROPONINI Urine Culture: No components found for: CURINE Blood Culture: No components found for: CBLOOD , CFUNGUSBL Blood Culture from Central Line: No components found for: CBLOODLN Stool Culture: No components found for: CSTOOL Sputum Culture: No components found for: CSPUTUM Sputum Culture for AFB: No components found for: CAFBSM Wound Culture: None Radiology: CT head wo IV contrast Result Date: 01/01/2024 Patient Name: BRIANNE WALLS : 1955 Exam Date/Time: 01/01/2024 20:41 Procedure: CT HEAD WO IV CONTRAST Ordering Provider: HENNESSY LAURA Reason For Exam: SDH follow up CT BRAIN WITHOUT CONTRAST CLINICAL INDICATION: SDH follow up TECHNIQUE: Noncontrast CT scan of the brain. Multiplanar reformations. Dose reduction was employed with automated exposure control. COMPARISON: 01/01/2024 from [facility] FINDINGS: Right frontal convexity subdural hemorrhage does not appear significantly changed. No significant midline shift. Tiny amount of subdural hemorrhage along the falx also unchanged. Right frontal encephalomalacia similar to previous study. No hydrocephalus. No effacement of the basal cisterns. 1. No significant change. 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 (CMS/HCC) (HCC) Hypothyroidism Hyperlipidemia History of drug abuse (CMS/HCC) (HCC) Heart valve replaced by other means Depressive disorder Bacterial endocarditis Anxiety disorder Anemia Vitamin D deficiency Solitary pulmonary nodule Pleurisy Back problem intermediate (current) use of anticoagulants 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 : - No acute issues - Monitor I/Os - Goal UOP > 0.5 ml/kg/hr Heme: - Hgb: 10.8 ID: -[x] MRSA Decolonization ordered - ppx bactroban nares Endo: - No acute issues Lines/Devices: - PIV Prophylaxis: DVT: SCDs Has DVT PPX been started? No If no, why? Patient with Acute Head Bleed on chronic GI: Pt is on regular full diet Pressure Ulcer: N/A Musculoskeletal: - WBAT Is the patient in restraints?: No Medications Reconciled- Yes [x] NO [], why Disposition: 3W Associated attestation - Wero Ingram MD - 01/02/2024 4:55 PM EDT ATTENDING ADDENDUM Active Diagnoses/Problems this Admission: Patient Active Problem List Diagnosis Alcohol use disorder, severe, dependence (HCC) Vegetative endocarditis of mitral valve Osteomyelitis (HCC) Peripheral vascular disease (HCC) DVT (deep venous thrombosis) (HCC) Chronic pain Bradycardia Acute blood loss anemia Syncope Presence of cardiac pacemaker 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 (CMS/HCC) (HCC) Hypothyroidism Hyperlipidemia History of drug abuse (CMS/HCC) (HCC) Heart valve replaced by other means Depressive disorder Bacterial endocarditis Anxiety disorder Anemia Vitamin D deficiency Solitary pulmonary nodule Pleurisy 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 I personally discussed the review of systems and interviewed the patient along with performing a physical examination. I reviewed the recent events, imaging, labs, vital signs. In addition, I discussed the patient's condition and treatment options with him/her when possible. I have also reviewed and agree with the past medical, family, and social history unless otherwise noted. All of the patient's questions were answered and family updated when appropriate and possible. A complete review of systems was obtained and is negative except as stated in HPI and/or Subjective Section. -as per Dr. Almeida's note -I evaluated patient on 01/02/24 -Chief Complaint: headache, acute on chronic SDH -Neuro: SDH after fall 2 weeks ago with mild mass effect, CT head stable this AM, no acute surgical intervention per Neurosurgery, Interventional Neuro consulted for possible MMA embolization this coming week, continue neuro checks -CV: MVR on warfarin, reversed given SDH, holding off AC for now, likely resume AC as DOAC instead of warfarin after acute issues related to SDH resolved, appreciate Cards recs -Pulm: no active concerns -FENGI: okay for regular diet; bowel regimen -: adequate UOP -Heme: Hgb stable, see Cards above as well, hold AC, hold prophylactic lovenox -ID: no active concerns -Dispo: will need to return to SICU after MMA embolization, but given nothing scheduled yet it is reasonable to transfer to for now Total Care Time throughout the day today was >= 50 minutes (including chart/data review/analysis, care coordination, and [id number] encounter), and was spent discussing/counseling the patient/family regarding the care plan for Brianne Walls. I examined the patient independently. I reviewed relevant data myself and may have also done so in the context of team rounds. A full chart review was performed. Level of Medical Decision Making: [x]High []Moderate []Low Complexity: [x]Acute or chronic illness/injury posing a threat to life or bodily function without treatment (HIGH) []Chronic illness with severe exacerbation, progression, or side effect of treatment (HIGH) []Chronic illness with mild to moderate exacerbation, progression, or side effect of treatment (MOD) []Previously undiagnosed (new) problem with uncertain prognosis (MOD) []Acute illness with systemic symptoms (MOD) []Acute, complicated injury (MOD) []Multiple stable chronic illnesses (MOD) Risk: [x]Parental controlled substances (HIGH) []Decision not to resuscitate or to de-escalate care because of poor prognosis (HIGH) []Decision regarding major surgery with identified patient or procedure risk factors (HIGH) []Decision regarding emergency surgery (HIGH) [x]Drug or treatment/therapy requiring intensive monitoring (HIGH) []Prescription drug management (MOD) []Decision regarding surgery with identified patient or procedure risk factors (MOD) []Diagnosis or treatment significantly limited by social determinants of health (MOD) Personally Reviewed/Independently interpreted patient's: [x]Epic notes [x]Radiology studies [x]Labs []EKG []Ordering tests []Other Discussed/ With: [x]Patient/Family []RN [x]Consultants []Primary Team []SW/TCC []Other Time was spent: -Reviewing the medical record, including recent tests and results -Ordering prescription medications/tests and procedures -Communicating results to the patient/family/caregiver -Counseling/educating the patient/family/caregiver -Documenting clinical information in the patient's electronic record -Co-ordination of care for the patient -Performing a medically appropriate exam and evaluation Wero Ingram MD, FACS Trauma, Surgical Critical Care, & Acute Care Surgery Department of Surgery [facility] Pager: [phone] ~~~~~~~~~~~~~~~~~~~~~~~~~~~~~~~~~~ ~~~~~~~~~~~~~~~~~~~~~~~~~~~ This note may have been dictated using [email or web address] Medical Practice Edition 2.6 and/or [employer] Voice Recognition Feature. The document was proofread; however, unrecognized voice recognition spinner frame errors may be present. I was notified by the resident that the patient had arrived on T2 as a Direct Admit. I immediately came to T2 ICU to evaluate patient. I was at the bedside within 15 minutes of patient arrival. Please see H&P for further details. documented in this encounter [place] 01-07-2024 Miscellaneous Notes Images from the original note were not included. Care Management Progress Note Pt on T2 s/p two week old SDH with small shift. PT/OT recommending home with assist PRN. [facility] 01/05. Will follow. Discharge Milestones and Delays Expected date/time: 01/08/[address] discharge order Complete med reconciliation Case mgmt discharge readiness Clinical Stability Diagnostic Workup Campus Recruiting Intern Recommendations Imaging Results PT discharge readiness OT discharge readiness Patient Education Complete Expected Discharge History Expected Date/Time Set By Reviewed At 01/08/2024 Mamie Tam RN 01/07/2024 5:54 AM 01/09/2024 Mamie Tam RN 01/06/2024 5:47 AM 01/09/2024 Mamie Tam RN 01/05/2024 5:46 AM 01/04/2024 Mamie Tam RN 01/04/2024 5:45 AM 01/03/2024 Nam Dougherty MD 01/01/2024 5:54 PM Length of Stay (Days): 6 GMLOS: 4.7 Date: 01/01/2024 - 01/06/2024 Location: [facility] IR Thin Log Right MMA embolization with liquid embolic agent Delbert Stover MD Difficult access into right MMA since looped origin. Once successful, navigated into anterior dural branch of right MMA. Excellent penetration of dural branch with Carl 18 Complications : none EBL: 50 ml Groin closure with 6/7 Fr Mynx Recs: Post angio orders Follow up in 6 weeks Rpt CTH in 6 weeks. Watch scalp for redness or early signs of ischemia for next 4 weeks The patient is Moderately Stable - Low risk of patient condition declining or worsening The patient's goals for the shift include goal to get procedure done today The clinical goals for the shift include to comfort patient for procedure Over the shift, the patient did not make progress toward the following goals. Barriers to progression include awaiting procedure. Recommendations to address these barriers include procedure. Images from the original note were not included. Care Management Progress Note Pt remains on 3W s/p two week old SDH with small shift. PT/OT recommending home with assist PRN. MMA scheduled for today 01/05. Will follow. Discharge Milestones and Delays Expected date/time: 01/09/[address] discharge order Complete med reconciliation Case mgmt discharge readiness Clinical Stability Diagnostic Workup Patient Education Complete Expected Discharge History Expected Date/Time Set By Reviewed At 01/09/2024 Mamie Tam RN 01/06/2024 5:47 AM 01/09/2024 Mamie Tam RN 01/05/2024 5:46 AM 01/04/2024 Mamie Tam RN 01/04/2024 5:45 AM 01/03/2024 Nam Dougherty MD 01/01/2024 5:54 PM Length of Stay (Days): 5 GMLOS: 4.7 Images from the original note were not included. Care Management Progress Note Pt remains on 3W s/p two week old SDH with small shift. PT/OT recommending home with assist PRN. Pt awaiting MMA on 01/05. Will follow. Discharge Milestones and Delays Expected date/time: 01/09/[address] discharge order Complete med reconciliation Case mgmt discharge readiness Clinical Stability Diagnostic Workup Patient Education Complete Expected Discharge History Expected Date/Time Set By Reviewed At 01/09/2024 Mamie Tam RN 01/05/2024 5:46 AM 01/04/2024 Mamie Tam RN 01/04/2024 5:45 AM 01/03/2024 Nam Dougherty MD 01/01/2024 5:54 PM Length of Stay (Days): 4 GMLOS: 3 Problem: Knowledge Deficit Goal: Patient/family/caregiver demonstrates understanding of disease process, treatment plan, medications, and discharge instructions Outcome: Progressing Problem: Potential for Compromised Skin Integrity Goal: Skin Integrity is Maintained or Improved Outcome: Progressing Goal: Nutritional status is improving Outcome: Progressing Problem: Urinary Incontinence Goal: Perineal skin integrity is maintained or improved Outcome: Progressing Care Managment Initial Assessment Date: 01/04/2024 Patient Name: Brianne Walls : 1955 Patient Information Source of Information: Patient Cognition/Language: WFL - Within Functional Limits Permission given to speak with patient civil rights representative/caregiver as indicated: Yes Confirmation of Payer with patient/family: Yes Payer Name: Medicare : No Confirmation of Primary Care Physician: Confirmed PCP Name: Arthur Carvalho MD Seen in last 2 years?: Yes Primary Caregiver: Self If assistance needed, confirmed caregiver ready, willing and able to care for patient at discharge: Yes Confirmed with: Ange Living Arrangements Current Residence: House Number of Floors 2 Number of Entry Steps: 1 Bed/Bath Levels: Both second floor Facility: Facility Name: Plan to Return: Lives with: Spouse/significant other Support Systems: Spouse/significant other Activities of Daily Living Ambulation: Independent Bathing/Dressing: Independent Elimination/Continence/Toileting: Independent Feeding: Independent Who Assists with Activities of Daily Living: Instrumental Activities of Daily Living Prescription Coverage: Yes Pharmacy Used: [facility] Medication Management: Independent Transportation/Shopping: Independent Transportation Mode: Car Needs Assistance with Transportation at Discharge: No Meal Preparation: Independent Laundry/Cleaning: Independent Finances/Bill Paying: Independent Communication: Independent Types of Care Services/Equipment Utilized Care Services: Dialysis Type: Durable Medical Equipment: Patient's Goal/Discharge Plan Patient expects to be discharged to: home Discharge Planning Actions: Continue to follow Patient's Choice Rights and [employer] and Collaborative Relationships Disclosed as Indicated for Post-Acute Care: Interdisciplinary Team Engagement: PT/OT Social Work Referral for: Additional Information: Pt admitted s/p two week old SDH with small shift. Introduced myself and role. Pt lives with Saba, who can provide assistance and transportation when discharged. PT recommending home with assist. Awaiting consult for endovascular. Will follow. Problem: Knowledge Deficit Goal: Patient/family/caregiver demonstrates understanding of disease process, treatment plan, medications, and discharge instructions Outcome: Progressing Problem: Potential for Compromised Skin Integrity Goal: Skin Integrity is Maintained or Improved Outcome: Progressing Goal: Nutritional status is improving Outcome: Progressing Problem: Urinary Incontinence Goal: Perineal skin integrity is maintained or improved Outcome: Progressing Problem: Knowledge Deficit Goal: Patient/family/caregiver demonstrates understanding of disease process, treatment plan, medications, and discharge instructions Outcome: Progressing Problem: Potential for Compromised Skin Integrity Goal: Skin Integrity is Maintained or Improved Outcome: Progressing Goal: Nutritional status is improving Outcome: Progressing Problem: Urinary Incontinence Goal: Perineal skin integrity is maintained or improved Outcome: Progressing The patient is Moderately Unstable - Medium risk of patient condition declining or worsening The patient's goals for the shift include pain control The clinical goals for the shift include stable neuro exam documented in this encounter [place] 01-07-2024 Note Formatting of this n ote is different from the original. Images from the original note were not included. Care Management Progress Note Pt on T2 s/p two week old SDH with small shift. PT/OT recommending home with assist PRN. [facility] 01/05. Will follow. Discharge Milestones and Delays Expected date/time: 01/08/[address] discharge order Complete med reconciliation Case mgmt discharge readiness Clinical Stability Diagnostic Workup Campus Recruiting Intern Recommendations Imaging Results PT discharge readiness OT discharge readiness Patient Education Complete Expected Discharge History Expected Date/Time Set By Reviewed At 01/08/2024 Mamie Tam RN 01/07/2024 5:54 AM 01/09/2024 Mamie Tam RN 01/06/2024 5:47 AM 01/09/2024 Mamie Tam RN 01/05/2024 5:46 AM 01/04/2024 Mamie Tam RN 01/04/2024 5:45 AM 01/03/2024 Nam Dougherty MD 01/01/2024 5:54 PM Length of Stay (Days): 6 GMLOS: 4.7 [place] 01-07-2024 Note Formatting of this n ote is different from the original. Images from the original note were not included. Care Management Progress Note Pt on T2 s/p two week old SDH with small shift. PT/OT recommending home with assist PRN. [facility] 01/05. Will follow. Discharge Milestones and Delays Expected date/time: 01/08/[address] discharge order Complete med reconciliation Case mgmt discharge readiness Clinical Stability Diagnostic Workup Campus Recruiting Intern Recommendations Imaging Results PT discharge readiness OT discharge readiness Patient Education Complete Expected Discharge History Expected Date/Time Set By Reviewed At 01/08/2024 Mamie Tam RN 01/07/2024 5:54 AM 01/09/2024 Mamie Tam RN 01/06/2024 5:47 AM 01/09/2024 Mamie Tam RN 01/05/2024 5:46 AM 01/04/2024 Mamie Tam RN 01/04/2024 5:45 AM 01/03/2024 Nam Dougherty MD 01/01/2024 5:54 PM Length of Stay (Days): 6 GMLOS: 4.7 [place] 01-06-2024 Note OCCUPATIONAL THERAPY Attempted OT services; pt transferred from 3W to T2 s/p angiogram procedure earlier this morning. OTR notified of re evaluation need. Will continue OT sessions upon updated POC/re evaluation. [facility] 01-06-2024 Note Formatting of this n ote might be different from the original. Date: 01/01/2024 - 01/06/2024 Location: [facility] IR Thin Log Right MMA embolization with liquid embolic agent Delbert Stover MD Difficult access into right MMA since looped origin. Once successful, navigated into anterior dural branch of right MMA. Excellent penetration of dural branch with Nemo 18 Complications : none EBL: 50 ml Groin closure with 6/7 Fr Mynx Recs: Post angio orders Follow up in 6 weeks Rpt CTH in 6 weeks. Watch scalp for redness or early signs of ischemia for next 4 weeks [place] Work Phone: 01-06-2024 Note Formatting of this n ote might be different from the original. Date: 01/01/2024 - 01/06/2024 Location: [facility] IR Thin Log Right MMA embolization with liquid embolic agent Delbert Stover MD Difficult access into right MMA since looped origin. Once successful, navigated into anterior dural branch of right MMA. Excellent penetration of dural branch with Nemo 18 Complications : none EBL: 50 ml Groin closure with 6/7 Fr Mynx Recs: Post angio orders Follow up in 6 weeks Rpt CTH in 6 weeks. Watch scalp for redness or early signs of ischemia for next 4 weeks [facility] Work Phone: 01-06-2024 Note [facility] 01-06-2024 Plan of care note The patient is Moderately Stable - Low risk of patient condition declining or worsening The patient's goals for the shift include goal to get procedure done today The clinical goals for the shift include to comfort patient for procedure Over the shift, the patient did not make progress toward the following goals. Barriers to progression include awaiting procedure. Recommendations to address these barriers include procedure. [facility] 01-06-2024 Note Formatting of this n ote is different from the original. Images from the original note were not included. Care Management Progress Note Pt remains on 3W s/p two week old SDH with small shift. PT/OT recommending home with assist PRN. MMA scheduled for today 01/05. Will follow. Discharge Milestones and Delays Expected date/time: 01/09/[address] discharge order Complete med reconciliation Case mgmt discharge readiness Clinical Stability Diagnostic Workup Patient Education Complete Expected Discharge History Expected Date/Time Set By Reviewed At 01/09/2024 Mamie Tam RN 01/06/2024 5:47 AM 01/09/2024 Mamie Tam RN 01/05/2024 5:46 AM 01/04/2024 Mamie Tam RN 01/04/2024 5:45 AM 01/03/2024 Nam Dougherty MD 01/01/2024 5:54 PM Length of Stay (Days): 5 GMLOS: 4.7 [facility] 01-06-2024 Note Formatting of this n ote is different from the original. Images from the original note were not included. Care Management Progress Note Pt remains on 3W s/p two week old SDH with small shift. PT/OT recommending home with assist PRN. MMA scheduled for today 01/05. Will follow. Discharge Milestones and Delays Expected date/time: 01/09/[address] discharge order Complete med reconciliation Case mgmt discharge readiness Clinical Stability Diagnostic Workup Patient Education Complete Expected Discharge History Expected Date/Time Set By Reviewed At 01/09/2024 Mamie Tam RN 01/06/2024 5:47 AM 01/09/2024 Mamie Tam RN 01/05/2024 5:46 AM 01/04/2024 Mamie Tam RN 01/04/2024 5:45 AM 01/03/2024 Nam Dougherty MD 01/01/2024 5:54 PM Length of Stay (Days): 5 GMLOS: 4.7 [facility] 01-05-2024 Note Formatting of this n ote is different from the original. Images from the original note were not included. Care Management Progress Note Pt remains on 3W s/p two week old SDH with small shift. PT/OT recommending home with assist PRN. Pt awaiting MMA on 01/05. Will follow. Discharge Milestones and Delays Expected date/time: 01/09/[address] discharge order Complete med reconciliation Case mgmt discharge readiness Clinical Stability Diagnostic Workup Patient Education Complete Expected Discharge History Expected Date/Time Set By Reviewed At 01/09/2024 Mamie Tam RN 01/05/2024 5:46 AM 01/04/2024 Mamie Tam RN 01/04/2024 5:45 AM 01/03/2024 Nam Dougherty MD 01/01/2024 5:54 PM Length of Stay (Days): 4 GMLOS: 3 T [place] 01-05-2024 Note Formatting of this n ote is different from the original. Images from the original note were not included. Care Management Progress Note Pt remains on 3W s/p two week old SDH with small shift. PT/OT recommending home with assist PRN. Pt awaiting MMA on 01/05. Will follow. Discharge Milestones and Delays Expected date/time: 01/09/[address] discharge order Complete med reconciliation Case mgmt discharge readiness Clinical Stability Diagnostic Workup Patient Education Complete Expected Discharge History Expected Date/Time Set By Reviewed At 01/09/2024 Mamie Tam RN 01/05/2024 5:46 AM 01/04/2024 Mamie Tam RN 01/04/2024 5:45 AM 01/03/2024 Nam Dougherty MD 01/01/2024 5:54 PM Length of Stay (Days): 4 GMLOS: 3 [facility] 01-04-2024 Plan of care note Problem: Knowledge Deficit Goal: Patient/family/caregiver demonstrates understanding of disease process, treatment plan, medications, and discharge instructions Outcome: Progressing Problem: Potential for Compromised Skin Integrity Goal: Skin Integrity is Maintained or Improved Outcome: Progressing Goal: Nutritional status is improving Outcome: Progressing Problem: Urinary Incontinence Goal: Perineal skin integrity is maintained or improved Outcome: Progressing [facility] 01-04-2024 Consult note Associated Order (s): Inpatient consult to Endovascular Neurology--[facility] Inpatient consult to Endovascular Neurology--[facility] Consult performed by: Nancy Gonzalez, POULTRY HATCHERY SUPERVISOR - HEALTH INFORMATION MANAGERS Consult ordered by: Cris Hennessy MD Reason for consult: SDH History Of Present Illness Ange Walls is a 68 y.o. male presenting with headaches. Pt had 2 falls in past few weeks. Reports that he hit his head with the second fall and subsequently developed a headache. He was at [facility] for check of INR and mentioned headache for which CT was ordered. Imaging identified R SDH and pt was transferred to [facility] for further care. Past Medical History He has a past medical history of Anemia, Arthritis, Bone infection ([facility]), CAD (coronary artery disease), Chronic back pain, Chronic kidney disease, 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 ([facility]) (04/30/2023), COPD (chronic obstructive pulmonary disease) ([facility]), Depression, DVT (deep venous thrombosis) ([facility]), Endocarditis, History of blood transfusion, Hyperlipidemia, Hypertension (01/13/2011), Hyperthyroidism, Pacemaker, Paroxysmal A-fib ([facility] ([facility]), and Pneumonia. He has no past medical history of Asthma, Blood circulation, collateral, Cancer ([facility]) ([facility]), Cerebral artery occlusion with cerebral infarction ([facility]), Diabetes mellitus ([facility]), Disease of blood and blood forming organ, GERD (gastroesophageal reflux disease), Hemodialysis patient ([facility]) ([facility]), Liver disease, Movement disorder, Neuromuscular disorder ([facility]), Other disorders of kidney and ureter in diseases classified elsewhere, or Seizures ([facility]). Surgical History He has a past surgical history that includes Insert / replace / remove pacemaker (10/10/2014); Hardware Removal (Right, 05/02/2016); Mitral valve replacement (07/27/2014); Tricuspid valve surgery (07/27/2014); Cardiac catheterization (N/A, 05/25/2023); and Cardiac valve replacement (2010). Social History He reports that he has been smoking cigarettes. He started smoking about 48 years ago. He has a 24.3 pack-year smoking history. He has never been exposed to tobacco smoke. He quit smokeless tobacco use about 8 years ago. He reports current alcohol use. He reports that he does not currently use drugs after having used the following drugs: Heroin and Crack cocaine. Allergies Patient has no known allergies. Medications Medications Prior to Admission Medication Sig Dispense Refill Last Dose albuterol 108 (90 Base) MCG/ACT inhaler TAKE 2 PUFFS INHALED 6 TIMES PER DAY FOR 30 DAYS NEEDED WHEEZING/SHORTNESS OF BREATH. aspirin 81 MG EC tablet Take 1 tablet (81 mg) by mouth daily. Take aspirin until INR above 2.0 30 tablet 11 atorvastatin (Lipitor) 20 MG tablet Take 20 mg by mouth in the morning. buPROPion SR (Wellbutrin SR) 150 MG 12 hr tablet Take 150 mg by mouth 2 times daily. citalopram (CeleXA) 20 MG tablet Take 20 mg by mouth daily. doxepin (SINEquan) 150 MG capsule Take 150 mg by mouth Nightly. empagliflozin (Jardiance) 10 MG Take 1 tablet (10 mg) by mouth daily. 90 tablet 3 furosemide (Lasix) 40 MG tablet Take 1 tablet (40 mg) by mouth Daily as needed (take 1x daily with weight gain (>3# in a day/5# in a week), shortness of breath, swelling). 90 tablet 0 HYDROcodone-acetaminophen ([place]) 5-325 MG tablet TAKE 1 TABLET BY MOUTH FOUR TIMES DAILY FOR 28 DAYS KLOR-CON M20 20 MEQ ER tablet TAKE 1 TABLET (20 MEQ) BY MOUTH EVERY OTHER DAY. DO NOT CRUSH OR CHEW. TAKE 40 MEQ ON DAY 1 AND THEN 20 MEQ EVERY OTHER DAY THERAFTER 90 tablet 2 levothyroxine (Synthroid, Levoxyl) 100 MCG tablet Take 100 mcg by mouth every morning (before breakfast). metoprolol succinate XL (Toprol-XL) 50 MG 24 hr tablet Take 50 mg by mouth daily. spironolactone (Aldactone) 25 MG tablet Take 1 tablet (25 mg) by mouth daily. 90 tablet 3 tamsulosin (Flomax) 0.4 MG 24 hr capsule Take 0.4 mg by mouth in the morning and 0.4 mg in the evening. tiZANidine (Zanaflex) 4 MG tablet TAKE 1 TABLET ORAL TWICE A DAY FOR 30 DAYS traZODone (Desyrel) 100 MG tablet Take 200 mg by mouth Nightly. warfarin (Coumadin) 2.5 MG tablet 2.5 MG ORALLY DAILY FOR BLOOD THINNER Review of Systems Constitutional: Positive for activity change. HENT: Negative. Eyes: Negative. Respiratory: Negative. Cardiovascular: Negative. Gastrointestinal: Negative. Endocrine: Negative. Genitourinary: Negative. Musculoskeletal: Negative. Neurological: Positive for headaches. Hematological: Negative. Psychiatric/Behavioral: Negative. Neurological Exam Mental Status Alert. Oriented to person, place, time and situation. Speech is normal. Language is fluent with no aphasia. Attention and concentration are normal. Cranial Nerves CN II: Visual acuity is normal. Visual howard full to confrontation. CN III, IV, : Extraocular movements intact bilaterally. Normal lids and orbits bilaterally. Pupils equal round and reactive to light bilaterally. CN V: Facial sensation is normal. CN VII: Full and symmetric facial movement. CN VIII: Hearing is normal. CN IX, X: Palate elevates symmetrically. Normal gag reflex. CN XI: Shoulder shrug strength is normal. CN XII: Tongue midline without atrophy or fasciculations. Motor Strength is 5/5 throughout all four extremities. Sensory Sensation is intact to light touch, pinprick, vibration and proprioception in all four extremities. Physical Exam Eyes: General: Lids are normal. Extraocular Movements: Extraocular movements intact. Pupils: Pupils are equal, round, and reactive to light. Cardiovascular: Rate and Rhythm: Normal rate and regular rhythm. Pulmonary: Effort: Pulmonary effort is normal. Breath sounds: Normal breath sounds. Abdominal: General: Abdomen is flat. Bowel sounds are normal. Skin: General: Skin is warm and dry. Capillary Refill: Capillary refill takes less than 2 seconds. Neurological: Mental Status: He is alert. Motor: Motor strength is normal. Psychiatric: Speech: Speech normal. Last Recorded Vitals Blood pressure 100/54, pulse 79, temperature 36.3 C (97.3 F), temperature source Temporal, resp. rate 16, height 1.778 m (5' 10 ), weight 70.9 kg (156 lb 3.2 oz), SpO2 94%. Relevant Results CLINICAL INDICATION: Follow-up intracranial hematoma TECHNIQUE: Transaxial CT sequence performed through the head with 3 mm reconstruction. Sagittal and Coronal reconstruction images included. Dose reduction was employed with automated exposure control. COMPARISON: 01/01/2024 at 2040 hours FINDINGS: There is redemonstration of a right frontal parietal mixed attenuating subdural collection measuring up to 1.7 cm in maximal thickness, unchanged from the prior exam. There is mass effect with mild effacement of the subjacent cortical sulci. There is a right to left midline shift measuring up to 3 mm. Focal encephalomalacia and gliosis noted in the inferior right frontal lobe. There is stable thin subdural hemorrhage noted about the posterior falx on the right. Ventricles and sulci are normal in size and configuration for age. No mass effect or midline shift. No CT evidence of an acute large territorial infarction. Imaged paranasal sinuses and mastoid air cells are well aerated. Calvarium is unremarkable. IMPRESSION: 1. Stable right frontoparietal subdural hematoma with stable thin subdural hemorrhage noted in the posterior falx on the right. Unchanged minimal right to left midline shift measuring up to 3 mm. Assessment/Plan Principal Problem: SDH (subdural hematoma) (HCC) R SDH Hx of bioprosthetic valve on warfarin Hx of CAD Hx of endocarditis Plan/ recommendations: - ok for lovenox for DVT prophylaxis - will plan for embolization of right middle meningeal artery am on 01/05 with anesthesia - will need to be NPO after midnight for procedure - will need transfer to critical care post embolization for monitoring. - likely discharge am 01/06 - will need repeat CT head 7-10 days post embolization - would hold warfarin until follow up CT done Discussed risks, benefits, and alternatives with patient and his at bedside. Will follow up with them on Thursday to see if they have additional questions. Pt seen and discussed with Dr. Stover. 35 minutes COLTEN time spent reviewing imaging, and completing assessment and plan. T [place] 01-04-2024 Consult note Associated Order (s): Inpatient consult to Endovascular Neurology--[facility] Inpatient consult to Endovascular Neurology--[facility] Consult performed by: KIARA Tavarez CNP Consult ordered by: Cris Hennessy MD Reason for consult: SDH History Of Present Illness Ange Walls is a 68 y.o. male presenting with headaches. Pt had 2 falls in past few weeks. Reports that he hit his head with the second fall and subsequently developed a headache. He was at [facility] for check of INR and mentioned headache for which CT was ordered. Imaging identified R SDH and pt was transferred to [facility] for further care. Past Medical History He has a past medical history of Anemia, Arthritis, Bone infection (HCC), CAD (coronary artery disease), Chronic back pain, Chronic kidney disease, 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 ([facility]) (04/30/2023), COPD (chronic obstructive pulmonary disease) ([facility]), Depression, DVT (deep venous thrombosis) ([facility]), Endocarditis, History of blood transfusion, Hyperlipidemia, Hypertension (01/13/2011), Hyperthyroidism, Pacemaker, Paroxysmal A-fib ([facility]) ([facility]), and Pneumonia. He has no past medical history of Asthma, Blood circulation, collateral, Cancer ([facility]) ([facility]), Cerebral artery occlusion with cerebral infarction ([facility]), Diabetes mellitus ([facility]), Disease of blood and blood forming organ, GERD (gastroesophageal reflux disease), Hemodialysis patient ([facility]) ([facility]), Liver disease, Movement disorder, Neuromuscular disorder ([facility]), Other disorders of kidney and ureter in diseases classified elsewhere, or Seizures ([facility]). Surgical History He has a past surgical history that includes Insert / replace / remove pacemaker (10/10/2014); Hardware Removal (Right, 05/02/2016); Mitral valve replacement (07/27/2014); Tricuspid valve surgery (07/27/2014); Cardiac catheterization (N/A, 05/25/2023); and Cardiac valve replacement (2010). Social History He reports that he has been smoking cigarettes. He started smoking about 48 years ago. He has a 24.3 pack-year smoking history. He has never been exposed to tobacco smoke. He quit smokeless tobacco use about 8 years ago. He reports current alcohol use. He reports that he does not currently use drugs after having used the following drugs: Heroin and Crack cocaine. Allergies Patient has no known allergies. Medications Medications Prior to Admission Medication Sig Dispense Refill Last Dose albuterol 108 (90 Base) MCG/ACT inhaler TAKE 2 PUFFS INHALED 6 TIMES PER DAY FOR 30 DAYS NEEDED WHEEZING/SHORTNESS OF BREATH. aspirin 81 MG EC tablet Take 1 tablet (81 mg) by mouth daily. Take aspirin until INR above 2.0 30 tablet 11 atorvastatin (Lipitor) 20 MG tablet Take 20 mg by mouth in the morning. buPROPion SR (Wellbutrin SR) 150 MG 12 hr tablet Take 150 mg by mouth 2 times daily. citalopram (CeleXA) 20 MG tablet Take 20 mg by mouth daily. doxepin (SINEquan) 150 MG capsule Take 150 mg by mouth Nightly. empagliflozin (Jardiance) 10 MG Take 1 tablet (10 mg) by mouth daily. 90 tablet 3 furosemide (Lasix) 40 MG tablet Take 1 tablet (40 mg) by mouth Daily as needed (take 1x daily with weight gain (>3# in a day/5# in a week), shortness of breath, swelling). 90 tablet 0 HYDROcodone-acetaminophen ([place]) 5-325 MG tablet TAKE 1 TABLET BY MOUTH FOUR TIMES DAILY FOR 28 DAYS KLOR-CON M20 20 MEQ ER tablet TAKE 1 TABLET (20 MEQ) BY MOUTH EVERY OTHER DAY. DO NOT CRUSH OR CHEW. TAKE 40 MEQ ON DAY 1 AND THEN 20 MEQ EVERY OTHER DAY THERAFTER 90 tablet 2 levothyroxine (Synthroid, Levoxyl) 100 MCG tablet Take 100 mcg by mouth every morning (before breakfast). metoprolol succinate XL (Toprol-XL) 50 MG 24 hr tablet Take 50 mg by mouth daily. spironolactone (Aldactone) 25 MG tablet Take 1 tablet (25 mg) by mouth daily. 90 tablet 3 tamsulosin (Flomax) 0.4 MG 24 hr capsule Take 0.4 mg by mouth in the morning and 0.4 mg in the evening. tiZANidine (Zanaflex) 4 MG tablet TAKE 1 TABLET ORAL TWICE A DAY FOR 30 DAYS traZODone (Desyrel) 100 MG tablet Take 200 mg by mouth Nightly. warfarin (Coumadin) 2.5 MG tablet 2.5 MG ORALLY DAILY FOR BLOOD THINNER Review of Systems Constitutional: Positive for activity change. HENT: Negative. Eyes: Negative. Respiratory: Negative. Cardiovascular: Negative. Gastrointestinal: Negative. Endocrine: Negative. Genitourinary: Negative. Musculoskeletal: Negative. Neurological: Positive for headaches. Hematological: Negative. Psychiatric/Behavioral: Negative. Neurological Exam Mental Status Alert. Oriented to person, place, time and situation. Speech is normal. Language is fluent with no aphasia. Attention and concentration are normal. Cranial Nerves CN II: Visual acuity is normal. Visual howard full to confrontation. CN III, IV, : Extraocular movements intact bilaterally. Normal lids and orbits bilaterally. Pupils equal round and reactive to light bilaterally. CN V: Facial sensation is normal. CN VII: Full and symmetric facial movement. CN VIII: Hearing is normal. CN IX, X: Palate elevates symmetrically. Normal gag reflex. CN XI: Shoulder shrug strength is normal. CN XII: Tongue midline without atrophy or fasciculations. Motor Strength is 5/5 throughout all four extremities. Sensory Sensation is intact to light touch, pinprick, vibration and proprioception in all four extremities. Physical Exam Eyes: General: Lids are normal. Extraocular Movements: Extraocular movements intact. Pupils: Pupils are equal, round, and reactive to light. Cardiovascular: Rate and Rhythm: Normal rate and regular rhythm. Pulmonary: Effort: Pulmonary effort is normal. Breath sounds: Normal breath sounds. Abdominal: General: Abdomen is flat. Bowel sounds are normal. Skin: General: Skin is warm and dry. Capillary Refill: Capillary refill takes less than 2 seconds. Neurological: Mental Status: He is alert. Motor: Motor strength is normal. Psychiatric: Speech: Speech normal. Last Recorded Vitals Blood pressure 100/54, pulse 79, temperature 36.3 C (97.3 F), temperature source Temporal, resp. rate 16, height 1.778 m (5' 10 ), weight 70.9 kg (156 lb 3.2 oz), SpO2 94%. Relevant Results CLINICAL INDICATION: Follow-up intracranial hematoma TECHNIQUE: Transaxial CT sequence performed through the head with 3 mm reconstruction. Sagittal and Coronal reconstruction images included. Dose reduction was employed with automated exposure control. COMPARISON: 01/01/2024 at 2040 hours FINDINGS: There is redemonstration of a right frontal parietal mixed attenuating subdural collection measuring up to 1.7 cm in maximal thickness, unchanged from the prior exam. There is mass effect with mild effacement of the subjacent cortical sulci. There is a right to left midline shift measuring up to 3 mm. Focal encephalomalacia and gliosis noted in the inferior right frontal lobe. There is stable thin subdural hemorrhage noted about the posterior falx on the right. Ventricles and sulci are normal in size and configuration for age. No mass effect or midline shift. No CT evidence of an acute large territorial infarction. Imaged paranasal sinuses and mastoid air cells are well aerated. Calvarium is unremarkable. IMPRESSION: 1. Stable right frontoparietal subdural hematoma with stable thin subdural hemorrhage noted in the posterior falx on the right. Unchanged minimal right to left midline shift measuring up to 3 mm. Assessment/Plan Principal Problem: SDH (subdural hematoma) (HCC) R SDH Hx of bioprosthetic valve on warfarin Hx of CAD Hx of endocarditis Plan/ recommendations: - ok for lovenox for DVT prophylaxis - will plan for embolization of right middle meningeal artery am on 01/05 with anesthesia - will need to be NPO after midnight for procedure - will need transfer to critical care post embolization for monitoring. - likely discharge am 01/06 - will need repeat CT head 7-10 days post embolization - would hold warfarin until follow up CT done Discussed risks, benefits, and alternatives with patient and his at bedside. Will follow up with them on Thursday am to see if they have additional questions. Pt seen and discussed with Dr. Stover. 35 minutes COLTEN time spent reviewing imaging, and completing assessment and plan. NEUROSURGERY FOLLOW-UP NOTE Patient Name: Brianne Walls Patient : 1955 PCP: ARTHUR CARVALHO MD Patient seen and examined at bedside. No acute events overnight. Describes his headache as stable, no new neurological complaints. We discussed his recent CT brain results and my interpretation of imaging remains stable. Past Medical History: Past Medical History: Diagnosis Date Anemia Arthritis Bone infection (HCC) spine CAD (coronary artery disease) Chronic back pain Chronic kidney disease 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) 04/30/2023 COPD (chronic obstructive pulmonary disease) ([facility]) Depression DVT (deep venous thrombosis) ([facility]) Endocarditis History of blood transfusion Hyperlipidemia Hypertension 01/13/2011 Hyperthyroidism Pacemaker Paroxysmal A-fib (CMS/HCC) ([facility]) Pneumonia Past Surgical History: Past Surgical History: Procedure Laterality Date CARDIAC CATHETERIZATION N/A 05/25/2023 Performed by aLnce Hobbs MD at [facility] Cardiac Cath/EP Lab CARDIAC VALVE REPLACEMENT 2010 MVR/CCF HARDWARE REMOVAL Right 05/02/2016 SCREW IN RIGHT 4TH TOE INSERT / REPLACE / REMOVE PACEMAKER 10/10/2014 MITRAL VALVE REPLACEMENT 07/27/2014 bioprosthetic valve TRICUSPID VALVE SURGERY 07/27/2014 Repair Home Medications: Prior to Admission medications Medication Sig Start Date End Date Taking? Authorizing Provider albuterol 108 (90 Base) MCG/ACT inhaler TAKE 2 PUFFS INHALED 6 TIMES PER DAY FOR 30 DAYS NEEDED WHEEZING/SHORTNESS OF BREATH. 03/10/23 Historical Provider, aspirin 81 MG EC tablet Take 1 tablet (81 mg) by mouth daily. Take aspirin until INR above 2.0 07/31/23 07/30/24 KIARA Sanchez CNP atorvastatin (Lipitor) 20 MG tablet Take 20 mg by mouth in the morning. Historical Provider, buPROPion SR (Wellbutrin SR) 150 MG 12 hr tablet Take 150 mg by mouth 2 times daily. 02/26/23 Historical Provider, citalopram (CeleXA) 20 MG tablet Take 20 mg by mouth daily. 08/17/23 Historical Provider, doxepin (SINEquan) 150 MG capsule Take 150 mg by mouth Nightly. Historical Provider, empagliflozin (Jardiance) 10 MG Take 1 tablet (10 mg) by mouth daily. 05/25/23 05/24/24 Lance Hobbs MD furosemide (Lasix) 40 MG tablet Take 1 tablet (40 mg) by mouth Daily as needed (take 1x daily with weight gain (>3# in a day/5# in a week), shortness of breath, swelling). 11/20/23 Lance Hobbs MD HYDROcodone-acetaminophen ([place]) 5-325 MG tablet TAKE 1 TABLET BY MOUTH FOUR TIMES DAILY FOR 28 DAYS 04/07/23 Historical Provider, MD MERRILL-NELL M20 20 MEQ ER tablet TAKE 1 TABLET (20 MEQ) BY MOUTH EVERY OTHER DAY. DO NOT CRUSH OR CHEW. TAKE 40 MEQ ON DAY 1 AND THEN 20 MEQ EVERY OTHER DAY THERAFTER 10/21/23 Josephine Lees APRN - [facility]IN levothyroxine (Synthroid, Levoxyl) 100 MCG tablet Take 100 mcg by mouth every morning (before breakfast). Historical Provider, metoprolol succinate XL (Toprol-XL) 50 MG 24 hr tablet Take 50 mg by mouth daily. 01/13/23 Historical Provider, spironolactone (Aldactone) 25 MG tablet Take 1 tablet (25 mg) by mouth daily. 04/30/23 04/29/24 Lance Hobbs MD tamsulosin (Flomax) 0.4 MG 24 hr capsule Take 0.4 mg by mouth in the morning and 0.4 mg in the evening. Historical Provider, tiZANidine (Zanaflex) 4 MG tablet TAKE 1 TABLET ORAL TWICE A DAY FOR 30 DAYS 06/03/22 Historical Provider, traZODone (Desyrel) 100 MG tablet Take 200 mg by mouth Nightly. 01/11/23 Historical Provider, warfarin (Coumadin) 2.5 MG tablet 2.5 MG ORALLY DAILY FOR BLOOD THINNER 03/01/23 Historical Provider, Allergies: Patient has no known allergies. Social History: TOBACCO: reports that he has been smoking cigarettes. He started smoking about 48 years ago. He has a 24.3 pack-year smoking history. He has never been exposed to tobacco smoke. He quit smokeless tobacco use about 8 years ago. ETOH: reports current alcohol use. RECREATIONAL DRUG USE: Social History Substance and Sexual Activity Drug Use Not Currently Types: Heroin, Crack cocaine Comment: Former user/ caffeine- 1 cup of coffee daily Family History: Family History Problem Relation Name Age of Onset Atrial fibrillation Mother Other ([address]119) Mother pacemaker Heart disease Father Review of Systems: Review of Systems 12-point ROS completed and negative, unless otherwise documented. Physical Examination: Vitals: 01/02/24 0845 BP: 108/71 Pulse: 70 Resp: Temp: SpO2: Physical Exam Neurologic Exam Awake, alert, oriented x3 Small well-healed abrasion along right parietal scalp PERRL, EOMI, TM, FS Speech fluent/appropriate BUE 5/5, No drift BLE 5/5 Results Labs: Last 24hrs Recent Results (from the past 24 hour(s)) Protime-INR Collection Time: 01/01/24 6:35 PM Result Value Ref Range PROTHROMBIN TIME 15.1 (H) 9.0 - 12.0 s INR 1.4 (H) 0.9 - 1.1 POCT glucose meter Collection Time: 01/01/24 8:56 PM Result Value Ref Range Glucose 132 (H) 70 - 100 mg/dL CBC auto differential Collection Time: 01/02/24 5:19 AM Result Value Ref Range Auto WBC 8.7 3.6 - 10.7 10*3/uL RBC 3.67 (L) 4.40 - 5.90 10*6/uL Hemoglobin 10.8 (L) 13.0 - 18.0 g/dL Hematocrit 33.1 (L) 40.0 - 52.0 % MCV 90.2 77.0 - 99.0 fL MCH 29.4 26.0 - 34.0 pg MCHC 32.6 30.5 - 36.0 % RDW 14.3 11.5 - 15.0 % Platelets 163 140 - 440 10*3/uL MPV 10.9 9.0 - 12.7 fL nRBC 0.0 0.0 - 2.0 /100 WBCs Neutrophils Relative 76.9 38.0 - 82.0 % Lymphocytes Relative 7.4 (L) 15.0 - 45.0 % Monocytes Relative 15.1 (H) 5.0 - 13.0 % Eosinophils Relative 0.0 0.0 - 6.0 % Basophils Relative 0.1 0.0 - 2.0 % Immature Grans % 0.5 0.0 - 2.0 % Neutrophils Absolute 6.7 1.8 - 7.5 10*3/uL Lymphocytes Absolute 0.6 (L) 1.0 - 4.3 10*3/uL Monocytes Absolute 1.3 (H) 0.0 - 0.9 10*3/uL Eosinophils Absolute 0.0 0.0 - 0.5 10*3/uL Basophils Absolute 0.0 0.0 - 0.2 10*3/uL Immature Grans Absolute 0.0 <0.1 10*3/uL Basic metabolic panel Collection Time: 01/02/24 5:19 AM Result Value Ref Range SODIUM 133 (L) 135 - 145 mmol/L POTASSIUM 4.2 3.5 - 5.1 mmol/L CHLORIDE 104 98 - 107 mmol/L CARBON DIOXIDE 23 22 - 30 mmol/L UREA NITROGEN 30 (H) 9 - 20 mg/dL CREATININE 0.91 0.66 - 1.25 mg/dL GLUCOSE 133 (H) 70 - 100 mg/dL CALCIUM 9.2 8.4 - 10.4 mg/dL ANION GAP 6 3 - 13 mmol/L eGFR >90.0 >60.0 mL/min/1.73m*2 Radiology Personal review: Discussed recent CT brain with patient this AM. In my interpretation, known right acute/chronic SDH remains stable with mild mass effect. Minimal MLS. ASSESSMENT / PLAN : Imaging remains stable. No neurosurgical intervention anticipated or planned at this time. Per Cardiology, patient is on AC for pAF and approves of holding medication during his hospitalization, then transitioning to DOAC outpatient. I think it is reasonable to hold for 1-week, then repeating CT brain at that time prior to transitioning to DOAC. In the meantime, our Neuro-endovascular team can evaluate to see if Ange is a candidate for MMAE. We'll continue to follow. Ventura Reid MD [place] I spent 45 minutes of my independent time evaluating the patient, reviewing the medical record, and counseling/coordinating care regarding SDH. 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 I met Mr. Noble for the first time just under a year ago for pulmonary hypertension, but the workup (including right heart catheterization and transesophageal echocardiogram) found a severe paravalvular leak around his mitral valve responsible for a great degree of his pulmonary hypertension and shortness of breath. After successful percutaneous plugging, he has done quite well. He was on warfarin, for paroxysmal atrial fibrillation. He was taking warfarin, with a subtherapeutic INR, when he fell and struck his head on the ground when he was standing on a boat. Had a headache for a couple of days, and a CT scan ordered by his PCP showed a subdural hematoma. We were consulted to opine on anticoagulation issues. Today, he reports his head is feeling a bit better. From a SOB standpoint, his symptoms have improved even since October. He denies any fatigue, lightheadedness, orthopnea, PND, lower extremity edema, palpitations, and chest pain. Assessment/Plan HF NYHA Class [] I [] II [] III [] IV Subdural hematoma/need for anticoagulation: His indication for anticoagulation is paroxysmal atrial fibrillation. He has not had atrial fibrillation for some time, at least not on any EKG we have seen recently. In any event, this can be held for at least the duration of this hospitalization, and for as long as seen necessary by the neurosurgical team. After he is done, it would be reasonable to switch him to a DOAC to reduce his risk of intracranial hemorrhage. He does not need to be on warfarin for the valve, and apixaban may be safer in terms of bleeding risk. However this can be addressed after the hospitalization. Will have him return in January and will place on DOAC if safe. Will arrange follow up. Please call with questions. Pulmonary hypertension/paravalvular leak now status post block: Repeat transthoracic echocardiogram showed improvement of the mitral regurgitation, but persistent pulmonary hypertension that is likely precapillary in nature, but could be secondary to longstanding group 2 pulmonary hypertension. His current medications include furosemide 40 mg/day, spironolactone 25 mg/day, and empagliflozin 10 mg/day. These can be held while he is an inpatient if desired, but should be restarted at the earliest possible time. Bioprosthetic mitral valve replacement: With a #29 [employer] tissue valve in [address] [facility]. He is functioning well and his paravalvular leak plugging was successful. Paroxysmal atrial fibrillation: Warfarin is being held as above. Would recommend continuing him on metoprolol succinate 50 mg/day. Medications: atorvastatin, 40 mg, Oral, Nightly buPROPion SR, 150 mg, Oral, BID citalopram, 20 mg, Oral, Daily doxepin, 150 mg, Oral, Nightly insulin lispro, 0-12 Units, SubCUTAneous, TID WC And insulin lispro, 0-12 Units, SubCUTAneous, Nightly levothyroxine, 100 mcg, Oral, qAM AC metoprolol succinate XL, 50 mg, Oral, Daily mupirocin, 1 Application, Nasal, BID tamsulosin, 0.4 mg, Oral, Daily traZODone, 200 mg, Oral, Nightly Infusion Medications: Physical Examination: Vitals: 01/02/24 0300 01/02/24 0400 01/02/24 0508 01/02/24 0600 BP: 106/66 110/62 107/68 Patient Position: Pulse: 70 70 70 70 Resp: 15 (!) 04 01 15 Temp: TempSrc: SpO2: 90% 92% 92% 95% Weight: 156 lb 8.4 oz (71 kg) Intake/Output Summary (Last 24 hours) at 01/02/2024 0734 Last data filed at 01/02/2024 0600 Gross per 24 hour Intake 1095 ml Output 500 ml Net 595 ml Wt Readings from Last 3 Encounters: 01/02/24 156 lb 8.4 oz (71 kg) 10/23/23 155 lb (70.3 kg) 09/10/23 150 lb (68 kg) Physical Exam Constitutional: Appearance: Normal appearance. HENT: Head: Normocephalic and atraumatic. Neck: Vascular: No JVD. Cardiovascular: Heart sounds: Normal heart sounds, S1 normal and S2 normal. No systolic murmur is present. No diastolic murmur is present. No S3 or S4 sounds. Pulmonary: Effort: Pulmonary effort is normal. Breath sounds: Normal breath sounds. No decreased breath sounds, wheezing or rales. Musculoskeletal: Right lower leg: No edema. Left lower leg: No edema. Skin: General: Skin is warm and dry. Neurological: Mental Status: He is alert. Laboratory Tests: Recent Labs 01/02/24 0519 NA 133* K 4.2 CL 104 CO2 23 BUN 30* CREATININE 0.91 EGFR >90.0 No results for input(s): CKTOTAL , CKMB , CKMBINDEX , TROPONINI in the last 72 hours. Recent Labs 01/02/24 0519 WBC 8.7 HGB 10.8* HCT 33.1* MCV 90.2 PLT 163 No results found for: HGBA1C Lab Results Component Value Date TSH 2.416 09/03/2023 No results found for: CHOL No results found for: HDL No results found for: LDLCALC No results found for: TRIG No results found for: CHOLHDL No results for input(s): BNP in the last 72 hours. Recent Labs 01/01/24 1835 INR 1.4* No results found for: IRON , TIBC , FERRITIN Radiology: CXR: personally reviewed: Cardiac Tests Personally Reviewed: Last EKG 09/10/23 ECG 12-LEAD 09/28/2023 8:19 AM (Final) Narrative Atrial Rhythm P:QRS - 1:1, Abnormal P axis, H Rate 70 -Intraventricular conduction defect and left axis -possible anterior fascicular block consider ventricular hypertrophy. -Negative T-waves -May be normal -possible Anteroseptal ischemia. ABNORMAL Signed by: Ericka Nicholas MD on 09/28/2023 8:19 AM Telemetry findings: Reports reviewed: Last Echo 09/10/23 TRANSTHORACIC ECHOCARDIOGRAM (TTE) COMPLETE (CONTRAST/BUBBLE/3D PRN) 09/10/2023 11:38 AM (Final) Interpretation Summary Left Ventricle: Left ventricle size is normal. Increased wall thickness. Low normal left ventricular systolic function. The EF by visual approximation is 55%. Aneurysmal basal inferolateral. Right Ventricle: Right ventricle is dilated. Lead present in the right ventricle. Mildly reduced systolic function. Mitral Valve: Bioprosthetic valve is well seated in the mitral position and normally functioning. MV mean gradient is 3 mmHg at a heart rate of 69 bpm. No regurgitation. No stenosis noted. Tricuspid Valve: Mild to moderate (1-2+) regurgitation. Mildly elevated RVSP. RVSP is 46 mmHg. IVC/SVC: IVC diameter is normal and decreases less than 50% during inspiration; therefore the estimated right atrial pressure is intermediate (~8 mmHg). Signed by: Aleta Lopes MD on 09/10/2023 11:38 AM Last Cath 05/25/23 CARDIAC PROCEDURE 05/25/2023 9:55 AM (Final) Conclusion Severe mixed etiology pulmonary hypertension. PVR 6 Wood Units and PCW 22 mmHg. 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 Borderline cardiac index. Signed by: Lance Hobbs MD on 05/25/2023 9:55 AM Last Stress Test No results found for this or any previous visit. Last EP study No results found for this or any previous visit. EF BP Date Value Ref Range Status 09/10/2023 46 (A) 55 - 100 % Final DAY Score Link Lance Hobbs MD, PhD Advanced Heart Failure Cardiology [facility] [place] 7:34 AM 08/17/24 NEUROSURGERY CONSULT NOTE Patient Name: Brianne Walls Patient : 1955 PCP: ARTHUR CARVALHO MD History of Present Illness: 68 y/o M with PMHx of HF s/p MVR, CKD, HTN, pAF who presents as a direct transfer to our ICU after he was found to have an acute/chronic SDH. He reports that 2 week ago he feel while on a boat, hitting the back of his head. No LOC or neurological changes. He began to have experience headaches ~2 days ago and reported this to his PCP during an INR check, which prompted cranial imaging. He remains at his neurological baseline. No significant changes in strength, sensation, speech or vision. Headache has remained moderate in severity. No associated nausea/emesis. Of note, he takes Warfarin for his known history of HF/MVR with a goal INR of 2-3. Last dose 12/30. He was reversed with Vit K and PCC at the OSH prior to transfer to [facility]. Most recent INR 1.4. I discussed the CT brain findings with Ange and his at bedside. On my review, imaging shows an acute on chronic SDH, measuring ~1.7cm in maximal diameter. There is mild mass effect, with preservation of sulcal spaces and ~3mm of MLS. Past Medical History: Past Medical History: Diagnosis Date Anemia Arthritis Bone infection ([facility]) spine CAD (coronary artery disease) Chronic back pain Chronic kidney disease 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) 04/30/2023 COPD (chronic obstructive pulmonary disease) ([facility]) Depression DVT (deep venous thrombosis) ([facility]) Endocarditis History of blood transfusion Hyperlipidemia Hypertension 01/13/2011 Hyperthyroidism Pacemaker Paroxysmal A-fib (CMS/HCC) ([facility]) Pneumonia Past Surgical History: Past Surgical History: Procedure Laterality Date CARDIAC CATHETERIZATION N/A 05/25/2023 Performed by Lance Hobbs MD at [facility] Cardiac Cath/EP Lab CARDIAC VALVE REPLACEMENT 2010 MVR/[facility] HARDWARE REMOVAL Right 05/02/2016 SCREW IN RIGHT 4TH TOE INSERT / REPLACE / REMOVE PACEMAKER 10/10/2014 MITRAL VALVE REPLACEMENT 07/27/2014 bioprosthetic valve TRICUSPID VALVE SURGERY 07/27/2014 Repair Home Medications: Prior to Admission medications Medication Sig Start Date End Date Taking? Authorizing Provider albuterol 108 (90 Base) MCG/ACT inhaler TAKE 2 PUFFS INHALED 6 TIMES PER DAY FOR 30 DAYS NEEDED WHEEZING/SHORTNESS OF BREATH. 03/10/23 Historical Provider, aspirin 81 MG EC tablet Take 1 tablet (81 mg) by mouth daily. Take aspirin until INR above 2.0 07/31/23 07/30/24 KIARA Sanchez CNP atorvastatin (Lipitor) 20 MG tablet Take 20 mg by mouth in the morning. Historical Provider, buPROPion SR (Wellbutrin SR) 150 MG 12 hr tablet Take 150 mg by mouth 2 times daily. 02/26/23 Historical Provider, citalopram (CeleXA) 20 MG tablet Take 20 mg by mouth daily. 08/17/23 Historical Provider, doxepin (SINEquan) 150 MG capsule Take 150 mg by mouth Nightly. Historical Provider, empagliflozin (Jardiance) 10 MG Take 1 tablet (10 mg) by mouth daily. 05/25/23 05/24/24 Lance Hobbs MD furosemide (Lasix) 40 MG tablet Take 1 tablet (40 mg) by mouth Daily as needed (take 1x daily with weight gain (>3# in a day/5# in a week), shortness of breath, swelling). 11/20/23 Lance Hobbs MD HYDROcodone-acetaminophen ([place]) 5-325 MG tablet TAKE 1 TABLET BY MOUTH FOUR TIMES DAILY FOR 28 DAYS 04/07/23 Historical Provider, MD MERRILL-NELL M20 20 MEQ ER tablet TAKE 1 TABLET (20 MEQ) BY MOUTH EVERY OTHER DAY. DO NOT CRUSH OR CHEW. TAKE 40 MEQ ON DAY 1 AND THEN 20 MEQ EVERY OTHER DAY THERAFTER 10/21/23 KIARA Talbot CNP levothyroxine (Synthroid, Levoxyl) 100 MCG tablet Take 100 mcg by mouth every morning (before breakfast). Historical Provider, metoprolol succinate XL (Toprol-XL) 50 MG 24 hr tablet Take 50 mg by mouth daily. 01/13/23 Historical Provider, spironolactone (Aldactone) 25 MG tablet Take 1 tablet (25 mg) by mouth daily. 04/30/23 04/29/24 Lance Hobbs MD tamsulosin (Flomax) 0.4 MG 24 hr capsule Take 0.4 mg by mouth in the morning and 0.4 mg in the evening. Historical Provider, tiZANidine (Zanaflex) 4 MG tablet TAKE 1 TABLET ORAL TWICE A DAY FOR 30 DAYS 06/03/22 Historical Provider, traZODone (Desyrel) 100 MG tablet Take 200 mg by mouth Nightly. 01/11/23 Historical Provider, warfarin (Coumadin) 2.5 MG tablet 2.5 MG ORALLY DAILY FOR BLOOD THINNER 03/01/23 Historical Provider, Allergies: Patient has no known allergies. Social History: TOBACCO: reports that he has been smoking cigarettes. He started smoking about 48 years ago. He has a 24.3 pack-year smoking history. He has never been exposed to tobacco smoke. He quit smokeless tobacco use about 8 years ago. ETOH: reports current alcohol use. RECREATIONAL DRUG USE: Social History Substance and Sexual Activity Drug Use Not Currently Types: Heroin, Crack cocaine Comment: Former user/ caffeine- 1 cup of coffee daily Family History: Family History Problem Relation Name Age of Onset Atrial fibrillation Mother Other ([id number]) Mother pacemaker Heart disease Father Review of Systems: Review of Systems 12-point ROS completed and negative unless otherwise documented. Physical Examination: Vitals: 01/01/24 1714 BP: 125/82 Pulse: 70 Resp: 16 Temp: 36.9 C (98.4 F) SpO2: Physical Exam Neurologic Exam Awake, alert, oriented x3 Small well-healed abrasion along right parietal scalp PERRL, EOMI, TM, FS Speech fluent/appropriate BUE 5/5, No drift BLE 5/5 Results Labs: Last 24hrs Recent Results (from the past 24 hour(s)) Protime-INR Collection Time: 01/01/24 6:35 PM Result Value Ref Range PROTHROMBIN TIME 15.1 (H) 9.0 - 12.0 s INR 1.4 (H) 0.9 - 1.1 Radiology Personal review: CT brain findings reviewed and discussed with patient/family. On my interpretation, imaging shows an acute on chronic SDH, measuring ~1.7cm in maximal diameter. There is mild mass effect, with preservation of sulcal spaces and ~3mm of MLS. ASSESSMENT / PLAN : Overall, patient has an [id number] SDH which correlates with his reported history of a traumatic fall and head strike 2 weeks ago. He remains neurologically intact, with his only symptom being a moderate headache currently. I recommend repeat CT brain without contrast now to confirm stability, given his recent AC use and trace acute blood products noted within the hematoma. Please continue his Atorvastatin as well as this has been shown in some studies to help decrease the size of SDH over time. I do believe that with his AC use and mostly chronic appearing hematoma, that MMAE would be useful and recommend Neuro-endovascular consultation to evaluate for this procedure. Given his history of MVR, we'll need to discuss how long it is reasonable to hold AC. Preferably, we would hold AC for at least a week, but please consult Cardiology to be included in these risk/benefit discussions moving forward. We'll continue to update our recs pending his clinical progress and further [id number] discussions. I spent 60 minutes of my independent time evaluating the patient, reviewing the medical record, and counseling/coordinating care regarding his acute on chronic SDH and history of AC use. documented in this encounter [place] 01-04-2024 Note [facility] 01-04-2024 Note Formatting of this n ote might be different from the original. Care Managment Initial Assessment Date: 01/04/2024 Patient Name: Brianne Walls : 1955 Patient Information Source of Information: Patient Cognition/Language: WFL - Within Functional Limits Permission given to speak with patient civil rights representative/caregiver as indicated: Yes Confirmation of Payer with patient/family: Yes Payer Name: Medicare [place]: No Confirmation of Primary Care Physician: Confirmed PCP Name: Arthur Carvalho MD Seen in last 2 years?: Yes Primary Caregiver: Self If assistance needed, confirmed caregiver ready, willing and able to care for patient at discharge: Yes Confirmed with: Ange Living Arrangements Current Residence: House Number of Floors 2 Number of Entry Steps: 1 Bed/Bath Levels: Both second floor Facility: Facility Name: Plan to Return: Lives with: Spouse/significant other Support Systems: Spouse/significant other Activities of Daily Living Ambulation: Independent Bathing/Dressing: Independent Elimination/Continence/Toileting: Independent Feeding: Independent Who Assists with Activities of Daily Living: Instrumental Activities of Daily Living Prescription Coverage: Yes Pharmacy Used: [facility] Medication Management: Independent Transportation/Shopping: Independent Transportation Mode: Car Needs Assistance with Transportation at Discharge: No Meal Preparation: Independent Laundry/Cleaning: Independent Finances/Bill Paying: Independent Communication: Independent Types of Care Services/Equipment Utilized Care Services: Dialysis Type: Durable Medical Equipment: Patient's Goal/Discharge Plan Patient expects to be discharged to: home Discharge Planning Actions: Continue to follow Patient's Choice Rights and [employer] and Collaborative Relationships Disclosed as Indicated for Post-Acute Care: Interdisciplinary Team Engagement: PT/OT Social Work Referral for: Additional Information: Pt admitted s/p two week old SDH with small shift. Introduced myself and role. Pt lives with Saba, who can provide assistance and transportation when discharged. PT recommending home with assist. Awaiting consult for endovascular. Will follow. [facility] 01-04-2024 Note Formatting of this n ote might be different from the original. Care Managment Initial Assessment Date: 01/04/2024 Patient Name: Brianne Walls : 1955 Patient Information Source of Information: Patient Cognition/Language: WFL - Within Functional Limits Permission given to speak with patient civil rights representative/caregiver as indicated: Yes Confirmation of Payer with patient/family: Yes Payer Name: Medicare : No Confirmation of Primary Care Physician: Confirmed PCP Name: Arthur Carvalho MD Seen in last 2 years?: Yes Primary Caregiver: Self If assistance needed, confirmed caregiver ready, willing and able to care for patient at discharge: Yes Confirmed with: Ange Living Arrangements Current Residence: House Number of Floors 2 Number of Entry Steps: 1 Bed/Bath Levels: Both second floor Facility: Facility Name: Plan to Return: Lives with: Spouse/significant other Support Systems: Spouse/significant other Activities of Daily Living Ambulation: Independent Bathing/Dressing: Independent Elimination/Continence/Toileting: Independent Feeding: Independent Who Assists with Activities of Daily Living: Instrumental Activities of Daily Living Prescription Coverage: Yes Pharmacy Used: [facility] Medication Management: Independent Transportation/Shopping: Independent Transportation Mode: Car Needs Assistance with Transportation at Discharge: No Meal Preparation: Independent Laundry/Cleaning: Independent Finances/Bill Paying: Independent Communication: Independent Types of Care Services/Equipment Utilized Care Services: Dialysis Type: Durable Medical Equipment: Patient's Goal/Discharge Plan Patient expects to be discharged to: home Discharge Planning Actions: Continue to follow Patient's Choice Rights and [employer] and Collaborative Relationships Disclosed as Indicated for Post-Acute Care: Interdisciplinary Team Engagement: PT/OT Social Work Referral for: Additional Information: Pt admitted s/p two week old SDH with small shift. Introduced myself and role. Pt lives with Saba, who can provide assistance and transportation when discharged. PT recommending home with assist. Awaiting consult for endovascular. Will follow. [facility] 01-04-2024 Nurse Note Wound Care consulted for Pressure Injury Prevention. Pt's Guevara= 20, pt is no longer at risk. Skin Care Precaution order set in place. Will continue to follow peripherally. Please voicera or secure chat message with any questions. Betsy Moon RN, CWCN [facility] 01-03-2024 Plan of care note Problem: Knowledge Deficit Goal: Patient/family/caregiver demonstrates understanding of disease process, treatment plan, medications, and discharge instructions Outcome: Progressing Problem: Potential for Compromised Skin Integrity Goal: Skin Integrity is Maintained or Improved Outcome: Progressing Goal: Nutritional status is improving Outcome: Progressing Problem: Urinary Incontinence Goal: Perineal skin integrity is maintained or improved Outcome: Progressing [facility] 01-02-2024 Consult note Formatting of th is note is different from the original. NEUROSURGERY FOLLOW-UP NOTE Patient Name: Brianne Walls Patient : 1955 PCP: ARTHUR CARVALHO MD Patient seen and examined at bedside. No acute events overnight. Describes his headache as stable, no new neurological complaints. We discussed his recent CT brain results and my interpretation of imaging remains stable. Past Medical History: Past Medical History: Diagnosis Date Anemia Arthritis Bone infection (HCC) spine CAD (coronary artery disease) Chronic back pain Chronic kidney disease 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) 04/30/2023 COPD (chronic obstructive pulmonary disease) ([facility]) Depression DVT (deep venous thrombosis) ([facility]) Endocarditis History of blood transfusion Hyperlipidemia Hypertension 01/13/2011 Hyperthyroidism Pacemaker Paroxysmal A-fib (CMS/HCC) ([facility]) Pneumonia Past Surgical History: Past Surgical History: Procedure Laterality Date CARDIAC CATHETERIZATION N/A 05/25/2023 Performed by Lance Hobbs MD at [facility] Cardiac Cath/EP Lab CARDIAC VALVE REPLACEMENT 2010 MVR/[facility] HARDWARE REMOVAL Right 05/02/2016 SCREW IN RIGHT 4TH TOE INSERT / REPLACE / REMOVE PACEMAKER 10/10/2014 MITRAL VALVE REPLACEMENT 07/27/2014 bioprosthetic valve TRICUSPID VALVE SURGERY 07/27/2014 Repair Home Medications: Prior to Admission medications Medication Sig Start Date End Date Taking? Authorizing Provider albuterol 108 (90 Base) MCG/ACT inhaler TAKE 2 PUFFS INHALED 6 TIMES PER DAY FOR 30 DAYS NEEDED WHEEZING/SHORTNESS OF BREATH. 03/10/23 Historical Provider, aspirin 81 MG EC tablet Take 1 tablet (81 mg) by mouth daily. Take aspirin until INR above 2.0 07/31/23 07/30/24 Selena Leonardo, P[employer]ERY SUPERVISOR - [employer]FORMATION [employer]NA[employer]ERS atorvastatin (Lipitor) 20 MG tablet Take 20 mg by mouth in the morning. Historical Provider, buPROPion SR (Wellbutrin SR) 150 MG 12 hr tablet Take 150 mg by mouth 2 times daily. 02/26/23 Historical Provider, citalopram (CeleXA) 20 MG tablet Take 20 mg by mouth daily. 08/17/23 Historical Provider, doxepin (SINEquan) 150 MG capsule Take 150 mg by mouth Nightly. Historical Provider, empagliflozin (Jardiance) 10 MG Take 1 tablet (10 mg) by mouth daily. 05/25/23 05/24/24 Lance Hobbs MD furosemide (Lasix) 40 MG tablet Take 1 tablet (40 mg) by mouth Daily as needed (take 1x daily with weight gain (>3# in a day/5# in a week), shortness of breath, swelling). 11/20/23 Lance Hobbs MD HYDROcodone-acetaminophen ([place]) 5-325 MG tablet TAKE 1 TABLET BY MOUTH FOUR TIMES DAILY FOR 28 DAYS 04/07/23 Historical Provider, MD PURCELL M20 20 MEQ ER tablet TAKE 1 TABLET (20 MEQ) BY MOUTH EVERY OTHER DAY. DO NOT CRUSH OR CHEW. TAKE 40 MEQ ON DAY 1 AND THEN 20 MEQ EVERY OTHER DAY THERAFTER 10/21/23 Josephine Lees APRN - MARTIN levothyroxine (Synthroid, Levoxyl) 100 MCG tablet Take 100 mcg by mouth every morning (before breakfast). Historical Provider, metoprolol succinate XL (Toprol-XL) 50 MG 24 hr tablet Take 50 mg by mouth daily. 01/13/23 Historical Provider, spironolactone (Aldactone) 25 MG tablet Take 1 tablet (25 mg) by mouth daily. 04/30/23 04/29/24 Lance Hobbs MD tamsulosin (Flomax) 0.4 MG 24 hr capsule Take 0.4 mg by mouth in the morning and 0.4 mg in the evening. Historical Provider, tiZANidine (Zanaflex) 4 MG tablet TAKE 1 TABLET ORAL TWICE A DAY FOR 30 DAYS 06/03/22 Historical Provider, traZODone (Desyrel) 100 MG tablet Take 200 mg by mouth Nightly. 01/11/23 Historical Provider, warfarin (Coumadin) 2.5 MG tablet 2.5 MG ORALLY DAILY FOR BLOOD THINNER 03/01/23 Historical Provider, Allergies: Patient has no known allergies. Social History: TOBACCO: reports that he has been smoking cigarettes. He started smoking about 48 years ago. He has a 24.3 pack-year smoking history. He has never been exposed to tobacco smoke. He quit smokeless tobacco use about 8 years ago. ETOH: reports current alcohol use. RECREATIONAL DRUG USE: Social History Substance and Sexual Activity Drug Use Not Currently Types: Heroin, Crack cocaine Comment: Former user/ caffeine- 1 cup of coffee daily Family History: Family History Problem Relation Name Age of Onset Atrial fibrillation Mother Other ([id number]) Mother pacemaker Heart disease Father Review of Systems: Review of Systems 12-point ROS completed and negative, unless otherwise documented. Physical Examination: Vitals: 01/02/24 0845 BP: 108/71 Pulse: 70 Resp: Temp: SpO2: Physical Exam Neurologic Exam Awake, alert, oriented x3 Small well-healed abrasion along right parietal scalp PERRL, EOMI, TM, FS Speech fluent/appropriate BUE 09/19, No drift BLE 09/19 Results Labs: Last 24hrs Recent Results (from the past 24 hour(s)) Protime-INR Collection Time: 01/01/24 6:35 PM Result Value Ref Range PROTHROMBIN TIME 15.1 (H) 9.0 - 12.0 s INR 1.4 (H) 0.9 - 1.1 POCT glucose meter Collection Time: 01/01/24 8:56 PM Result Value Ref Range Glucose 132 (H) 70 - 100 mg/dL CBC auto differential Collection Time: 01/02/24 5:19 AM Result Value Ref Range Auto WBC 8.7 3.6 - 10.7 10*3/uL RBC 3.67 (L) 4.40 - 5.90 10*6/uL Hemoglobin 10.8 (L) 13.0 - 18.0 g/dL Hematocrit 33.1 (L) 40.0 - 52.0 % MCV 90.2 77.0 - 99.0 fL MCH 29.4 26.0 - 34.0 pg MCHC 32.6 30.5 - 36.0 % RDW 14.3 11.5 - 15.0 % Platelets 163 140 - 440 10*3/uL MPV 10.9 9.0 - 12.7 fL nRBC 0.0 0.0 - 2.0 /100 WBCs Neutrophils Relative 76.9 38.0 - 82.0 % Lymphocytes Relative 7.4 (L) 15.0 - 45.0 % Monocytes Relative 15.1 (H) 5.0 - 13.0 % Eosinophils Relative 0.0 0.0 - 6.0 % Basophils Relative 0.1 0.0 - 2.0 % Immature Grans % 0.5 0.0 - 2.0 % Neutrophils Absolute 6.7 1.8 - 7.5 10*3/uL Lymphocytes Absolute 0.6 (L) 1.0 - 4.3 10*3/uL Monocytes Absolute 1.3 (H) 0.0 - 0.9 10*3/uL Eosinophils Absolute 0.0 0.0 - 0.5 10*3/uL Basophils Absolute 0.0 0.0 - 0.2 10*3/uL Immature Grans Absolute 0.0 <0.1 10*3/uL Basic metabolic panel Collection Time: 01/02/24 5:19 AM Result Value Ref Range SODIUM 133 (L) 135 - 145 mmol/L POTASSIUM 4.2 3.5 - 5.1 mmol/L CHLORIDE 104 98 - 107 mmol/L CARBON DIOXIDE 23 22 - 30 mmol/L UREA NITROGEN 30 (H) 9 - 20 mg/dL CREATININE 0.91 0.66 - 1.25 mg/dL GLUCOSE 133 (H) 70 - 100 mg/dL CALCIUM 9.2 8.4 - 10.4 mg/dL ANION GAP 6 3 - 13 mmol/L eGFR >90.0 >60.0 mL/min/1.73m*2 Radiology Personal review: Discussed recent CT brain with patient this AM. In my interpretation, known right acute/chronic SDH remains stable with mild mass effect. Minimal MLS. ASSESSMENT / PLAN : Imaging remains stable. No neurosurgical intervention anticipated or planned at this time. Per Cardiology, patient is on AC for pAF and approves of holding medication during his hospitalization, then transitioning to DOAC outpatient. I think it is reasonable to hold for 1-week, then repeating CT brain at that time prior to transitioning to DOAC. In the meantime, our Neuro-endovascular team can evaluate to see if Ange is a candidate for MMAE. We'll continue to follow. Ventura Reid MD [facility] I spent 45 minutes of my independent time evaluating the patient, reviewing the medical record, and counseling/coordinating care regarding SDH. 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 I met Mr. Noble for the first time just under a year ago for pulmonary hypertension, but the workup (including right heart catheterization and transesophageal echocardiogram) found a severe paravalvular leak around his mitral valve responsible for a great degree of his pulmonary hypertension and shortness of breath. After successful percutaneous plugging, he has done quite well. He was on warfarin, for paroxysmal atrial fibrillation. He was taking warfarin, with a subtherapeutic INR, when he fell and struck his head on the ground when he was standing on a boat. Had a headache for a couple of days, and a CT scan ordered by his PCP showed a subdural hematoma. We were consulted to opine on anticoagulation issues. Today, he reports his head is feeling a bit better. From a SOB standpoint, his symptoms have improved even since October. He denies any fatigue, lightheadedness, orthopnea, PND, lower extremity edema, palpitations, and chest pain. Assessment/Plan HF NYHA Class [] I [] II [] III [] IV Subdural hematoma/need for anticoagulation: His indication for anticoagulation is paroxysmal atrial fibrillation. He has not had atrial fibrillation for some time, at least not on any EKG we have seen recently. In any event, this can be held for at least the duration of this hospitalization, and for as long as seen necessary by the neurosurgical team. After he is done, it would be reasonable to switch him to a DOAC to reduce his risk of intracranial hemorrhage. He does not need to be on warfarin for the valve, and apixaban may be safer in terms of bleeding risk. However this can be addressed after the hospitalization. Will have him return in January and will place on DOAC if safe. Will arrange follow up. Please call with questions. Pulmonary hypertension/paravalvular leak now status post block: Repeat transthoracic echocardiogram showed improvement of the mitral regurgitation, but persistent pulmonary hypertension that is likely precapillary in nature, but could be secondary to longstanding group 2 pulmonary hypertension. His current medications include furosemide 40 mg/day, spironolactone 25 mg/day, and empagliflozin 10 mg/day. These can be held while he is an inpatient if desired, but should be restarted at the earliest possible time. Bioprosthetic mitral valve replacement: With a #29 Medtronic tissue valve in [address] [facility]. He is functioning well and his paravalvular leak plugging was successful. Paroxysmal atrial fibrillation: Warfarin is being held as above. Would recommend continuing him on metoprolol succinate 50 mg/day. Medications: atorvastatin, 40 mg, Oral, Nightly buPROPion SR, 150 mg, Oral, BID citalopram, 20 mg, Oral, Daily doxepin, 150 mg, Oral, Nightly insulin lispro, 0-12 Units, SubCUTAneous, TID WC And insulin lispro, 0-12 Units, SubCUTAneous, Nightly levothyroxine, 100 mcg, Oral, qAM AC metoprolol succinate XL, 50 mg, Oral, Daily mupirocin, 1 Application, Nasal, BID tamsulosin, 0.4 mg, Oral, Daily traZODone, 200 mg, Oral, Nightly Infusion Medications: Physical Examination: Vitals: 01/02/24 0300 01/02/24 0400 01/02/24 0508 01/02/24 0600 BP: 106/66 110/62 107/68 Patient Position: Pulse: 70 70 70 70 Resp: 15 (!) 11 15 15 Temp: TempSrc: SpO2: 90% 92% 92% 95% Weight: 156 lb 8.4 oz (71 kg) Intake/Output Summary (Last 24 hours) at 01/02/2024 0734 Last data filed at 01/02/2024 0600 Gross per 24 hour Intake 1095 ml Output 500 ml Net 595 ml Wt Readings from Last 3 Encounters: 01/02/24 156 lb 8.4 oz (71 kg) 10/23/23 155 lb (70.3 kg) 09/10/23 150 lb (68 kg) Physical Exam Constitutional: Appearance: Normal appearance. HENT: Head: Normocephalic and atraumatic. Neck: Vascular: No JVD. Cardiovascular: Heart sounds: Normal heart sounds, S1 normal and S2 normal. No systolic murmur is present. No diastolic murmur is present. No S3 or S4 sounds. Pulmonary: Effort: Pulmonary effort is normal. Breath sounds: Normal breath sounds. No decreased breath sounds, wheezing or rales. Musculoskeletal: Right lower leg: No edema. Left lower leg: No edema. Skin: General: Skin is warm and dry. Neurological: Mental Status: He is alert. Laboratory Tests: Recent Labs 01/02/24 0519 NA 133* K 4.2 CL 104 CO2 23 BUN 30* CREATININE 0.91 EGFR >90.0 No results for input(s): CKTOTAL , CKMB , CKMBINDEX , TROPONINI in the last 72 hours. Recent Labs 01/02/24 0519 WBC 8.7 HGB 10.8* HCT 33.1* MCV 90.2 PLT 163 No results found for: HGBA1C Lab Results Component Value Date TSH 2.416 09/03/2023 No results found for: CHOL No results found for: HDL No results found for: LDLCALC No results found for: TRIG No results found for: CHOLHDL No results for input(s): BNP in the last 72 hours. Recent Labs 01/01/24 1835 INR 1.4* No results found for: IRON , TIBC , FERRITIN Radiology: CXR: personally reviewed: Cardiac Tests Personally Reviewed: Last EKG 09/10/23 ECG 12-LEAD 09/28/2023 8:19 AM (Final) Narrative Atrial Rhythm P:QRS - 1:1, Abnormal P axis, H Rate 70 -Intraventricular conduction defect and left axis -possible anterior fascicular block consider ventricular hypertrophy. -Negative T-waves -May be normal -possible Anteroseptal ischemia. ABNORMAL Signed by: Ericka Nicholas MD on 09/28/2023 8:19 AM Telemetry findings: Reports reviewed: Last Echo 09/10/23 TRANSTHORACIC ECHOCARDIOGRAM (TTE) COMPLETE (CONTRAST/BUBBLE/3D PRN) 09/10/2023 11:38 AM (Final) Interpretation Summary Left Ventricle: Left ventricle size is normal. Increased wall thickness. Low normal left ventricular systolic function. The EF by visual approximation is 55%. Aneurysmal basal inferolateral. Right Ventricle: Right ventricle is dilated. Lead present in the right ventricle. Mildly reduced systolic function. Mitral Valve: Bioprosthetic valve is well seated in the mitral position and normally functioning. MV mean gradient is 3 mmHg at a heart rate of 69 bpm. No regurgitation. No stenosis noted. Tricuspid Valve: Mild to moderate (1-2+) regurgitation. Mildly elevated RVSP. RVSP is 46 mmHg. IVC/SVC: IVC diameter is normal and decreases less than 50% during inspiration; therefore the estimated right atrial pressure is intermediate (~8 mmHg). Signed by: Aleta Lopes MD on 09/10/2023 11:38 AM Last Cath 05/25/23 CARDIAC PROCEDURE 05/25/2023 9:55 AM (Final) Conclusion Severe mixed etiology pulmonary hypertension. PVR 6 Wood Units and PCW 22 mmHg. 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 Borderline cardiac index. Signed by: Lance Hobbs MD on 05/25/2023 9:55 AM Last Stress Test No results found for this or any previous visit. Last EP study No results found for this or any previous visit. EF BP Date Value Ref Range Status 09/10/2023 46 (A) 55 - 100 % Final DAY Score Link Lance Hobbs MD, PhD Advanced Heart Failure Cardiology [facility] [place] 7:34 AM 01/02/24 T [place] 01-02-2024 Plan of care note Problem: Knowledge Deficit Goal: Patient/family/caregiver demonstrates understanding of disease process, treatment plan, medications, and discharge instructions Outcome: Progressing Problem: Potential for Compromised Skin Integrity Goal: Skin Integrity is Maintained or Improved Outcome: Progressing Goal: Nutritional status is improving Outcome: Progressing Problem: Urinary Incontinence Goal: Perineal skin integrity is maintained or improved Outcome: Progressing The patient is Moderately Unstable - Medium risk of patient condition declining or worsening The patient's goals for the shift include pain control The clinical goals for the shift include stable neuro exam T [place] 01-01-2024 Consult note Formatting of th is note is different from the original. NEUROSURGERY CONSULT NOTE Patient Name: Brianne Walls Patient : 1955 PCP: ARTHUR CARVALHO MD History of Present Illness: 68 y/o M with PMHx of HF s/p MVR, CKD, HTN, pAF who presents as a direct transfer to our ICU after he was found to have an acute/chronic SDH. He reports that 2 week ago he feel while on a boat, hitting the back of his head. No LOC or neurological changes. He began to have experience headaches ~2 days ago and reported this to his PCP during an INR check, which prompted cranial imaging. He remains at his neurological baseline. No significant changes in strength, sensation, speech or vision. Headache has remained moderate in severity. No associated nausea/emesis. Of note, he takes Warfarin for his known history of HF/MVR with a goal INR of 2-3. Last dose 12/30. He was reversed with Vit K and PCC at the OSH prior to transfer to [facility]. Most recent INR 1.4. I discussed the CT brain findings with Ange and his at bedside. On my review, imaging shows an acute on chronic SDH, measuring ~1.7cm in maximal diameter. There is mild mass effect, with preservation of sulcal spaces and ~3mm of MLS. Past Medical History: Past Medical History: Diagnosis Date Anemia Arthritis Bone infection ([facility]) spine CAD (coronary artery disease) Chronic back pain Chronic kidney disease 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 ([facility]) 04/30/2023 COPD (chronic obstructive pulmonary disease) ([facility]) Depression DVT (deep venous thrombosis) ([facility]) Endocarditis History of blood transfusion Hyperlipidemia Hypertension 01/13/2011 Hyperthyroidism Pacemaker Paroxysmal A-fib ([facility]/HCC) ([facility]) Pneumonia Past Surgical History: Past Surgical History: Procedure Laterality Date CARDIAC CATHETERIZATION N/A 05/25/2023 Performed by Lance Hobbs MD at [facility] Cardiac Cath/EP Lab CARDIAC VALVE REPLACEMENT 2010 MVR/[facility]F HARDWARE REMOVAL Right 05/02/2016 SCREW IN RIGHT 4TH TOE INSERT / REPLACE / REMOVE PACEMAKER 10/10/2014 MITRAL VALVE REPLACEMENT 07/27/2014 bioprosthetic valve TRICUSPID VALVE SURGERY 07/27/2014 Repair Home Medications: Prior to Admission medications Medication Sig Start Date End Date Taking? Authorizing Provider albuterol 108 (90 Base) MCG/ACT inhaler TAKE 2 PUFFS INHALED 6 TIMES PER DAY FOR 30 DAYS NEEDED WHEEZING/SHORTNESS OF BREATH. 03/10/23 Historical Provider, aspirin 81 MG EC tablet Take 1 tablet (81 mg) by mouth daily. Take aspirin until INR above 2.0 07/31/23 07/30/24 Sleena Leonardo APRN - [facility] atorvastatin (Lipitor) 20 MG tablet Take 20 mg by mouth in the morning. Historical Provider, buPROPion SR (Wellbutrin SR) 150 MG 12 hr tablet Take 150 mg by mouth 2 times daily. 02/26/23 Historical Provider, citalopram (CeleXA) 20 MG tablet Take 20 mg by mouth daily. 08/17/23 Historical Provider, doxepin (SINEquan) 150 MG capsule Take 150 mg by mouth Nightly. Historical Provider, empagliflozin (Jardiance) 10 MG Take 1 tablet (10 mg) by mouth daily. 05/25/23 05/24/24 Lance Hobbs MD furosemide (Lasix) 40 MG tablet Take 1 tablet (40 mg) by mouth Daily as needed (take 1x daily with weight gain (>3# in a day/5# in a week), shortness of breath, swelling). 11/20/23 Lance Hobbs MD HYDROcodone-acetaminophen ([place]) 5-325 MG tablet TAKE 1 TABLET BY MOUTH FOUR TIMES DAILY FOR 28 DAYS 04/07/23 Historical Provider, MD MERRILL-CON M20 20 MEQ ER tablet TAKE 1 TABLET (20 MEQ) BY MOUTH EVERY OTHER DAY. DO NOT CRUSH OR CHEW. TAKE 40 MEQ ON DAY 1 AND THEN 20 MEQ EVERY OTHER DAY THERAFTER 10/21/23 Josephine Lees APRN - [facility] levothyroxine (Synthroid, Levoxyl) 100 MCG tablet Take 100 mcg by mouth every morning (before breakfast). Historical Provider, metoprolol succinate XL (Toprol-XL) 50 MG 24 hr tablet Take 50 mg by mouth daily. 01/13/23 Historical Provider, spironolactone (Aldactone) 25 MG tablet Take 1 tablet (25 mg) by mouth daily. 04/30/23 04/29/24 Lance Hobbs MD tamsulosin (Flomax) 0.4 MG 24 hr capsule Take 0.4 mg by mouth in the morning and 0.4 mg in the evening. Historical Provider, tiZANidine (Zanaflex) 4 MG tablet TAKE 1 TABLET ORAL TWICE A DAY FOR 30 DAYS 06/03/22 Historical Provider, traZODone (Desyrel) 100 MG tablet Take 200 mg by mouth Nightly. 01/11/23 Historical Provider, warfarin (Coumadin) 2.5 MG tablet 2.5 MG ORALLY DAILY FOR BLOOD THINNER 03/01/23 Historical Provider, Allergies: Patient has no known allergies. Social History: TOBACCO: reports that he has been smoking cigarettes. He started smoking about 48 years ago. He has a 24.3 pack-year smoking history. He has never been exposed to tobacco smoke. He quit smokeless tobacco use about 8 years ago. ETOH: reports current alcohol use. RECREATIONAL DRUG USE: Social History Substance and Sexual Activity Drug Use Not Currently Types: Heroin, Crack cocaine Comment: Former user/ caffeine- 1 cup of coffee daily Family History: Family History Problem Relation Name Age of Onset Atrial fibrillation Mother Other ([id number]) Mother pacemaker Heart disease Father Review of Systems: Review of Systems 12-point ROS completed and negative unless otherwise documented. Physical Examination: Vitals: 01/01/24 1714 BP: 125/82 Pulse: 70 Resp: 16 Temp: 36.9 C (98.4 F) SpO2: Physical Exam Neurologic Exam Awake, alert, oriented x3 Small well-healed abrasion along right parietal scalp PERRL, EOMI, TM, FS Speech fluent/appropriate BUE 5/5, No drift BLE 5/5 Results Labs: Last 24hrs Recent Results (from the past 24 hour(s)) Protime-INR Collection Time: 01/01/24 6:35 PM Result Value Ref Range PROTHROMBIN TIME 15.1 (H) 9.0 - 12.0 s INR 1.4 (H) 0.9 - 1.1 Radiology Personal review: CT brain findings reviewed and discussed with patient/family. On my interpretation, imaging shows an acute on chronic SDH, measuring ~1.7cm in maximal diameter. There is mild mass effect, with preservation of sulcal spaces and ~3mm of MLS. ASSESSMENT / PLAN : Overall, patient has an [id number] SDH which correlates with his reported history of a traumatic fall and head strike 2 weeks ago. He remains neurologically intact, with his only symptom being a moderate headache currently. I recommend repeat CT brain without contrast now to confirm stability, given his recent AC use and trace acute blood products noted within the hematoma. Please continue his Atorvastatin as well as this has been shown in some studies to help decrease the size of SDH over time. I do believe that with his AC use and mostly chronic appearing hematoma, that MMAE would be useful and recommend Neuro-endovascular consultation to evaluate for this procedure. Given his history of MVR, we'll need to discuss how long it is reasonable to hold AC. Preferably, we would hold AC for at least a week, but please consult Cardiology to be included in these risk/benefit discussions moving forward. We'll continue to update our recs pending his clinical progress and further [id number] discussions. I spent 60 minutes of my independent time evaluating the patient, reviewing the medical record, and counseling/coordinating care regarding his acute on chronic SDH and history of AC use. [place] 01-01-2024 History and physical note Images from the original note were not included. [facility] Trauma H&P 01/01/2024 5:28 PM Trauma Attending: Dr. Ingram Level of Initial Activation: Direct Admit Upgraded: No To:Trauma Team Mechanism of Injury: Fall Mechanical Mechanism of Arrival:Transfer from [place] Chief Complaint: Fall History of Traumatic Injury: 68 y.o. male status post fall. The incident happened around two weeks ago. When the event happened the patient was on a boat when the boat struck a sandbar. He lost his balance and fell backwards and hit the back of his head. He has had a headache for the last two days.He went to his PCP today to check PT/INR and informed them of his headache. His PCP obtained a CT scan which demonstrated SDH and was transferred to [facility]. Patient pain level currently is 9/10. Did the Patient have LOC?No C-collar in place on arrival? No Was the patient on an antiplatelet or anticoagulant medication? Yes If yes, which one? Warfarin Last dose = 12/30 Reason = bioprosthetic mitral valve, afib COVID-19 Risk Screening Tool: Has patient previously been tested for COVID-19? No Is the patient coming from a nursing facility or congregate care facility? No Has the patient been in close contact with a COVID-19 positive patient? No Has the patient recently experienced any of the following: fever, cough, [id number], myalgias, loss of taste/smell, diarreha/GI symptoms? No If any of the screen questions are answered 'yes,' consider ordering a COVID test Past Medical History: Diagnosis Date Anemia Arthritis Bone infection (HCC) spine CAD (coronary artery disease) Chronic back pain Chronic kidney disease 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) 04/30/2023 COPD (chronic obstructive pulmonary disease) ([facility]) Depression DVT (deep venous thrombosis) ([facility]) Endocarditis History of blood transfusion Hyperlipidemia Hypertension 01/13/2011 Hyperthyroidism Pacemaker Paroxysmal A-fib (CMS/HCC) ([facility]) Pneumonia Past Surgical History: Procedure Laterality Date CARDIAC CATHETERIZATION N/A 05/25/2023 Performed by Lance Hobbs MD at [facility] Cardiac Cath/EP Lab CARDIAC VALVE REPLACEMENT 2010 MVR/[facility] HARDWARE REMOVAL Right 05/02/2016 SCREW IN RIGHT 4TH TOE INSERT / REPLACE / REMOVE PACEMAKER 10/10/2014 MITRAL VALVE REPLACEMENT 07/27/2014 bioprosthetic valve TRICUSPID VALVE SURGERY 07/27/2014 Repair Family History Problem Relation Name Age of Onset Atrial fibrillation Mother Other ([id number]) Mother pacemaker Heart disease Father Social History Socioeconomic History Marital status: Spouse name: Not on file Number of children: Not on file Years of education: Not on file Highest education level: Not on file Occupational History Not on file Tobacco Use Smoking status: Every Day Current packs/day: 0.50 Average packs/day: 0.5 packs/day for 48.7 years (24.3 ttl pk-yrs) Types: Cigarettes Start date: 04/30/1975 Passive exposure: Never Smokeless tobacco: Former Quit date: 04/30/2015 Substance and Sexual Activity Alcohol use: Yes Drug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 exhausted easily? No R:Resistance - Does the patient have trouble walking up one flight of stairs independently? No A:Ambulation - Does the patient have trouble walking one block (1/4 Mile)? No I:Illnesses - Does the patient have five or more illnesses (comorbidities)? No L:Loss of weight - Has the patient lost weight (5 to 10 percent) over the last 6 months to one year? No Greater than 2 Yes answers consider palliative consult. 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/HCC) ([facility]) Heart valve replaced by other means Depressive disorder Bacterial endocarditis Anxiety disorder Anemia Vitamin D deficiency Solitary pulmonary nodule Pleurisy Back problem intermediate (current) use of anticoagulants 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 ([facility]) S/P mitral valve replacement Mitral valve insufficiency Prosthetic cardiac paravalvular leak, initial encounter Chronic diastolic heart failure ([facility]) Pulmonary hypertension ([facility]) CKD (chronic kidney disease) stage 2, GFR 60-89 ml/min Severe mitral regurgitation SDH (subdural hematoma) ([facility]) I personally supervised the resident physician in the evaluation and development of a treatment plan for this patient on the same day of service as above. I personally discussed the review of systems and interviewed the patient along with performing a physical examination. I reviewed the recent events, imaging, labs, vital signs. In addition, I discussed the patient's condition and treatment options with him/her when possible. I have also reviewed and agree with the past medical, family, and social history unless otherwise noted. All of the patient's questions were answered and family updated when appropriate and possible. A complete review of systems was obtained and is negative except as stated in HPI and/or Subjective Section. -as per Dr. Canada's note -I evaluated patient as a Direct Admit to T2 ICU on 01/01/24 -Chief Complaint: headache, acute on chronic SDH -HPI as below, patient had a fall 2 weeks ago, presented to [place] with headache, CT revealed sizeable SDH with mild mass effect -patient HD stable, GCS 15, no neuro deficits -on warfarin for bioprosthetic mitral valve, reversed with PCC at [place] -Neurosurgery consulted, no acute intervention, though repeat head CT now and in AM tomorrow, serial q1 hour neuro checks -multi-modal analgesia as below -if initial repeat CT head stable may have diet -Geriatrics consult -PT/OT jonas Total Care Time throughout the day today was >= 75 minutes (including chart/data review/analysis, care coordination, and [id number] encounter), and was spent discussing/counseling the patient/family regarding the care plan for Brianne Walls. I examined the patient independently. I reviewed relevant data myself and may have also done so in the context of team rounds. A full chart review was performed. Level of Medical Decision Making: [x]High []Moderate []Low Complexity: [x]Acute or chronic illness/injury posing a threat to life or bodily function without treatment (HIGH) []Chronic illness with severe exacerbation, progression, or side effect of treatment (HIGH) []Chronic illness with mild to moderate exacerbation, progression, or side effect of treatment (MOD) []Previously undiagnosed (new) problem with uncertain prognosis (MOD) []Acute illness with systemic symptoms (MOD) []Acute, complicated injury (MOD) []Multiple stable chronic illnesses (MOD) Risk: [x]Parental controlled substances (HIGH) []Decision not to resuscitate or to de-escalate care because of poor prognosis (HIGH) []Decision regarding major surgery with identified patient or procedure risk factors (HIGH) []Decision regarding emergency surgery (HIGH) [x]Drug or treatment/therapy requiring intensive monitoring (HIGH) []Prescription drug management (MOD) []Decision regarding surgery with identified patient or procedure risk factors (MOD) []Diagnosis or treatment significantly limited by social determinants of health (MOD) Personally Reviewed/Independently interpreted patient's: [x]Epic notes [x]Radiology studies [x]Labs []EKG []Ordering tests []Other Discussed/ With: [x]Patient/Family []RN [x]Consultants []Primary Team []SW/TCC []Other Time was spent: -Reviewing the medical record, including recent tests and results -Ordering prescription medications/tests and procedures -Communicating results to the patient/family/caregiver -Counseling/educating the patient/family/caregiver -Documenting clinical information in the patient's electronic record -Co-ordination of care for the patient -Performing a medically appropriate exam and evaluation Wero Ingram MD, FACS Trauma, Surgical Critical Care, & Acute Care Surgery Department of Surgery [facility] Pager: [phone] ~~~~~~~~~~~~~~~~~~~~~~~~~~~~~~~~~~ ~~~~~~~~~~~~~~~~~~~~~~~~~~~ This note may have been dictated using [email or web address] Medical Practice Edition 2.6 and/or Vett[employer] Voice Recognition Feature. The document was proofread; however, unrecognized voice recognition spinner frame errors may be present. documented in this encounter [place] 10-23-2023 History of Present illness Narrative CARDIOLOGY HEART FAILURE PROGRESS NOTE Today's Date: 10/23/23 Chart and interval events reviewed. Chief Complaint Chief Complaint Patient presents with Follow-up Congestive Heart Failure Atrial Fibrillation Hypertension Subjective: Mr. Walls is a 68-year-old man with a history of heart failure with midrange ejection fraction, bioprosthetic MVR followed by infective endocarditis now status post redo bioprosthetic MVR (#29 Medtronic tissue valve), severe paravalvular mitral valve leak s/p successful percutaneous plugging TVr (#36 mm ring) in 2014 CKD III, hypertension, pAF, s/p PPM, who presents to the cardiology clinic for follow up. I have had a chance to review some older records including an echocardiogram from January 2011 at [facility] Main [facility] which showed LVEF 49%, and a well-functioning bioprosthetic MV with a mean gradient of 4 mmHg. He has been following with the group in [place]. He underwent a TTE in February 2023 that showed LVEF 60%, with a mean gradient across the mitral valve 8 mmHg, with moderate to severe TR and an RVSP of 90 mmHg. When I first met him, with the above information we performed a right heart catheterization that suggested severe mitral regurgitation as a cause of his pulmonary hypertension. Right atrial pressure was 14, PA 88/27, with a wedge of 22. Transesophageal echocardiogram showed severe paravalvular regurgitation. He went on to have percutaneous plugging with the valve team, and repeat transthoracic echocardiogram which showed left Simone ejection fraction 55%, with mildly reduced RV function, and no significant mitral regurgitation. RVSP did remain elevated at about 72 mmHg. Currently, he reports that his symptoms of shortness of breath have improved since the clot. He denies any orthopnea, PND, dizziness, fatigue, chest pain, or palpitations. Blood pressure is 82/58 with a heart rate of 71 bpm. Past Medical History: Past Medical History: Diagnosis Date Anemia Arthritis Bone infection ([facility]) spine CAD (coronary artery disease) Chronic back pain Chronic kidney disease 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) 04/30/2023 COPD (chronic obstructive pulmonary disease) ([facility]) Depression DVT (deep venous thrombosis) ([facility]) Endocarditis History of blood transfusion Hyperlipidemia Hypertension 01/13/2011 Hyperthyroidism Pacemaker Paroxysmal A-fib ([facility]/HCC) ([facility]) Pneumonia Past Surgical History Past Surgical History: Procedure Laterality Date CARDIAC CATHETERIZATION N/A 05/25/2023 Performed by Lance Hobbs MD at [facility] Cardiac Cath/EP Lab CARDIAC VALVE REPLACEMENT 2010 MVR/[facility] HARDWARE REMOVAL Right 05/02/2016 SCREW IN RIGHT 4TH TOE INSERT / REPLACE / REMOVE PACEMAKER 10/10/2014 MITRAL VALVE REPLACEMENT 07/27/2014 bioprosthetic valve TRICUSPID VALVE SURGERY 07/27/2014 Repair Family History Family History Problem Relation Name Age of Onset Atrial fibrillation Mother Other (31686) Mother pacemaker Heart disease Father Social History Social History Tobacco Use Smoking status: Every Day Packs/day: .5 Types: Cigarettes Start date: 04/30/1975 Passive exposure: Never Smokeless tobacco: Former Quit date: 04/30/2015 Substance Use Topics Alcohol use: Yes Drug use: Not Currently Types: Heroin, Crack cocaine Comment: Former user/ caffeine- 1 cup of coffee daily Allergies: No Known Allergies Current Medications: Current Outpatient Medications Medication Sig Dispense Refill albuterol 108 (90 Base) MCG/ACT inhaler TAKE 2 PUFFS INHALED 6 TIMES PER DAY FOR 30 DAYS NEEDED WHEEZING/SHORTNESS OF BREATH. aspirin 81 MG EC tablet Take 1 tablet (81 mg) by mouth daily. Take aspirin until INR above 2.0 30 tablet 11 atorvastatin (Lipitor) 20 MG tablet Take 20 mg by mouth in the morning. buPROPion SR (Wellbutrin SR) 150 MG 12 hr tablet Take 150 mg by mouth 2 times daily. citalopram (CeleXA) 20 MG tablet Take 20 mg by mouth daily. empagliflozin (Jardiance) 10 MG Take 1 tablet (10 mg) by mouth daily. 90 tablet 3 furosemide (Lasix) 40 MG tablet Take 1 tablet (40 mg) by mouth daily. 90 tablet 0 HYDROcodone-acetaminophen ([place]) 5-325 MG tablet TAKE 1 TABLET BY MOUTH FOUR TIMES DAILY FOR 28 DAYS KLOR-CON M20 20 MEQ ER tablet TAKE 1 TABLET (20 MEQ) BY MOUTH EVERY OTHER DAY. DO NOT CRUSH OR CHEW. TAKE 40 MEQ ON DAY 1 AND THEN 20 MEQ EVERY OTHER DAY THERAFTER 90 tablet 2 levothyroxine (Synthroid, Levoxyl) 100 MCG tablet Take 100 mcg by mouth every morning (before breakfast). metoprolol succinate XL (Toprol-XL) 50 MG 24 hr tablet Take 50 mg by mouth daily. spironolactone (Aldactone) 25 MG tablet Take 1 tablet (25 mg) by mouth daily. 90 tablet 3 tamsulosin (Flomax) 0.4 MG 24 hr capsule Take 0.4 mg by mouth in the morning and 0.4 mg in the evening. tiZANidine (Zanaflex) 4 MG tablet TAKE 1 TABLET ORAL TWICE A DAY FOR 30 DAYS traZODone (Desyrel) 100 MG tablet Take 200 mg by mouth Nightly. warfarin (Coumadin) 2.5 MG tablet 2.5 MG ORALLY DAILY FOR BLOOD THINNER No current facility-administered medications for this visit. Review of Systems: All other systems were reviewed and are negative other than as noted in the HPI. Vital Signs: Vitals: 10/23/23 1013 BP: 82/58 BP Location: Right arm Pulse: 71 SpO2: 94% Weight: 155 lb (70.3 kg) Height: 5' 10 (1.778 m) Body mass index is 22.24 kg/m . Wt Readings from Last 3 Encounters: 10/23/23 155 lb (70.3 kg) 09/10/23 150 lb (68 kg) 09/10/23 151 lb 3.2 oz (68.6 kg) Physical Exam Constitutional: Appearance: Normal appearance. HENT: Head: Normocephalic and atraumatic. Neck: Vascular: No JVD. Cardiovascular: Heart sounds: Normal heart sounds, S1 normal and S2 normal. No systolic murmur is present. No diastolic murmur is present. No S3 or S4 sounds. Pulmonary: Effort: Pulmonary effort is normal. Breath sounds: Normal breath sounds. No decreased breath sounds, wheezing or rales. Musculoskeletal: Right lower leg: No edema. Left lower leg: No edema. Skin: General: Skin is warm and dry. Neurological: Mental Status: He is alert. CBC: No results for input(s): WBC , HGB , HCT , PLT in the last 72 hours. BMP:No results for input(s): NA , K , CL , CO2 , BUN , CREATININE , GLU , LABGLOM in the last 72 hours. No lab exists for component: CA CMP: Lab Results Component Value Date NA 134 (L) 09/10/2023 K 3.6 09/10/2023 CL 95 (L) 09/10/2023 CO2 32 (H) 09/10/2023 BUN 34 (H) 09/10/2023 CREATININE 0.91 09/10/2023 GLUCOSE 75 09/10/2023 CALCIUM 9.2 09/10/2023 PROT 7.4 07/16/2023 BILITOT 1.1 07/16/2023 ALKPHOS 136 (H) 07/16/2023 AST 62 (H) 07/16/2023 ALT 37 07/16/2023 Magnesium: No results found for: MG LFT: Lab Results Component Value Date ALT 37 07/16/2023 AST 62 (H) 07/16/2023 ALKPHOS 136 (H) 07/16/2023 BILITOT 1.1 07/16/2023 INR: Lab Results Component Value Date INR 1.2 (H) 07/30/2023 INR 1.2 (H) 07/29/2023 INR 1.9 (H) 05/25/2023 PROTIME 12.4 (H) 07/30/2023 PROTIME 12.4 (H) 07/29/2023 PRO-BNP: Lab Results Component Value Date BNP 9,550 (H) 09/03/2023 TSH: Lab Results Component Value Date TSH 2.416 09/03/2023 Lipid Profile: No results found for: TRIG , HDL , LDLCALC , CHOL Hemoglobin A1C: No results found for: HGBA1C GRISELDA: No results found for: GRISELDA Ferritin: No results found for: FERRITIN HIV: No results found for: [id number] EKG: See Report Echo: See Report EF: No components found for: LVEF , LVEFMODE IMPRESSIONS: Diagnosis Plan 1. Vegetative endocarditis of mitral valve 2. Presence of cardiac pacemaker 3. Chronic diastolic heart failure (HCC) 4. Pulmonary hypertension (HCC) 5. 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) 6. CKD (chronic kidney disease) stage 2, GFR 60-89 ml/min 7. Other hyperlipidemia Pulmonary hypertension/paravalvular leak now status post block: Repeat transthoracic echocardiogram showed improvement of the mitral regurgitation, but persistent pulmonary hypertension that is likely precapillary in nature, but could be secondary to longstanding group 2 pulmonary hypertension. His current medications include furosemide 40 mg/day, spironolactone 25 mg/day, and empagliflozin 10 mg/day. Today we will make his furosemide PRN for water retention. He will start walking regularly, and if his SOB improves, he does not need to return unless prescriptions are an issues, then just once per year. If his SOB remains problematic, then we will consider repeat RHC next winter. Bioprosthetic mitral valve replacement: With a #29 Medtronic tissue valve in [address] [facility]. He is functioning well and his paravalvular leak plugging was successful. Paroxysmal atrial fibrillation: He is on warfarin and metoprolol 50 mg/day. Lance Hobbs MD, PhD Advanced Heart Failure Cardiology [facility]. [facility] [place] 10:31 AM 10/23/23 documented in this encounter [place] 10-23-2023 Instructions Lance Hobbs MD - 10/23/2023 10:15 AM EDT Durb great to see you again. I'm glad you are doing better. Take the furosemide medication only as needed. Return in 6 months. If you are feeling great, then you don't have to return. IF you still have bothersome shortness of breath, I would like to recheck the pressures. documented in this encounter [place] 09-10-2023 History of Present illness Narrative Images from the original note were not included. [facility] [address] [address] Dept: [phone] Dept Visit type: Established : 1955 Reason for Visit: Follow up heart failure, dyspnea Assessment and Plan Acute HFpEF. We will double Lasix to 80 mg daily for three days and then resume Lasix 40 mg daily. During that time he will take K K-dur 20 meq daily. Thereafter, he will take K-dur 20 meq qod. He will continue metoprolol, aldactone, Jardiance Mitral valve insufficiency, unspecified etiology. Echo today shows normal mitral bioprosthesis, EF normal. He remains on Coumadin for PAF, no ASA. He will require alf SBE prophylaxis 3. Anemia. Recent EGD negative for bleeding, patient diagnosed with celiac. CBC stable- [id number]. 4. PAF. On metoprolol, Coumadin Dr. Hobbs 2 weeks Subjective Mr Walls is a 68 yr old male known to Dr. Royal and Dr. Hobbs with 4 + perivalvular mitral regurgitation. He had a bioprosthetic mitral valve replacement in 2010 followed by infective endocarditis which led to redo bioprosthetic mitral valve replacement (#29 Medtronic tissue valve), TVr (#36 mm ring) in 2014; HFpEF, chronic kidney disease stage 2, hypertension, paroxysmal atrial fibrillation, s/p PPM. Pt underwent a GALO on 05/29/23 which demonstrated severe (4+) paravalvular mitral valve regurgitation originating from mid posterior with an eccentrically directed jet. He underwent perivalvular leak plug of his bioprosthetic mitral valve on 07/30/2023. MR was reduced to 1+. At his one week appt he was doing well. He had been taking Lasix prn, blood pressure improve, and appetite was even getting better. Last week we saw him in the office and he reported progressive fatigue, edema, weight gain, and dyspnea. We increased his Lasix to 80 mg daily for a few days and then down to 40 mg daily. He is here today for reevaluation and his echocardiogram. Since his last visit we did obtain a BMP which was essentially normal except for hypokalemia which we treated. Today he reports some improvement in breathing and fatigue but not back to baseline. His weight is still up about 5 lbs. He notes some abdominal bloating, mild lower extremity edema. TSH, CBC, OK; CXR shows mild emphysema, BNP >9,000. No Known Allergies Outpatient Medications Prior to Visit Medication Sig Dispense Refill albuterol 108 (90 Base) MCG/ACT inhaler TAKE 2 PUFFS INHALED 6 TIMES PER DAY FOR 30 DAYS NEEDED WHEEZING/SHORTNESS OF BREATH. aspirin 81 MG EC tablet Take 1 tablet (81 mg) by mouth daily. Take aspirin until INR above 2.0 30 tablet 11 atorvastatin (Lipitor) 20 MG tablet Take 20 mg by mouth in the morning. buPROPion SR (Wellbutrin SR) 150 MG 12 hr tablet Take 150 mg by mouth 2 times daily. empagliflozin (Jardiance) 10 MG Take 1 tablet (10 mg) by mouth daily. 90 tablet 3 furosemide (Lasix) 40 MG tablet Take 1 tablet (40 mg) by mouth daily. 90 tablet 0 HYDROcodone-acetaminophen ([place]) 5-325 MG tablet TAKE 1 TABLET BY MOUTH FOUR TIMES DAILY FOR 28 DAYS levothyroxine (Synthroid, Levoxyl) 100 MCG tablet Take 100 mcg by mouth every morning (before breakfast). metoprolol succinate XL (Toprol-XL) 50 MG 24 hr tablet Take 50 mg by mouth daily. potassium chloride CR (Klor-Con M20) 20 MEQ ER tablet Take 1 tablet (20 mEq) by mouth every other day. Do not crush or chew. Take 40 meq on day 1 and then 20 meq every other day therafter 30 tablet 3 spironolactone (Aldactone) 25 MG tablet Take 1 tablet (25 mg) by mouth daily. 90 tablet 3 tamsulosin (Flomax) 0.4 MG 24 hr capsule Take 0.4 mg by mouth in the morning and 0.4 mg in the evening. tiZANidine (Zanaflex) 4 MG tablet TAKE 1 TABLET ORAL TWICE A DAY FOR 30 DAYS traZODone (Desyrel) 100 MG tablet TAKE 3 TABLETS BY MOUTH EVERYDAY AT BEDTIME warfarin (Coumadin) 2.5 MG tablet 2.5 MG ORALLY DAILY FOR BLOOD THINNER No facility-administered medications prior to visit. Past Medical History: Diagnosis Date Anemia Arthritis Bone infection ([facility]) spine CAD (coronary artery disease) Chronic back pain Chronic kidney disease 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 ([facility]) 04/30/2023 COPD (chronic obstructive pulmonary disease) ([facility]) Depression DVT (deep venous thrombosis) ([facility]) Endocarditis History of blood transfusion Hyperlipidemia Hypertension 01/13/2011 Hyperthyroidism Pacemaker Paroxysmal A-fib (CMS/HCC) ([facility]) Pneumonia Social History Tobacco Use Smoking status: Every Day Packs/day: .5 Types: Cigarettes Start date: 04/30/1975 Passive exposure: Never Smokeless tobacco: Former Quit date: 04/30/2015 Substance Use Topics Alcohol use: Yes Past Surgical History: Procedure Laterality Date CARDIAC CATHETERIZATION N/A 05/25/2023 Performed by Lance Hobbs MD at [facility] Cardiac Cath/EP Lab CARDIAC VALVE REPLACEMENT 2010 MVR/[facility] HARDWARE REMOVAL Right 05/02/2016 SCREW IN RIGHT 4TH TOE INSERT / REPLACE / REMOVE PACEMAKER 10/10/2014 MITRAL VALVE REPLACEMENT 07/27/2014 bioprosthetic valve TRICUSPID VALVE SURGERY 07/27/2014 Repair Family History Problem Relation Name Age of Onset Atrial fibrillation Mother Other (28527) Mother pacemaker Heart disease Father Objective Vitals: 09/10/23 1008 BP: 110/62 BP Location: Left arm Patient Position: Sitting BP Cuff Size: Adult Pulse: 70 SpO2: 93% Weight: 151 lb 3.2 oz (68.6 kg) Height: 5' 8 (1.727 m) Physical Exam Constitutional: Appearance: Normal appearance. HENT: Head: Normocephalic and atraumatic. Nose: Nose normal. Eyes: Conjunctiva/sclera: Conjunctivae normal. Pupils: Pupils are equal, round, and reactive to light. Neck: Comments: JVD Cardiovascular: Rate and Rhythm: Normal rate and regular rhythm. Pulmonary: Effort: Pulmonary effort is normal. Comments: Base crackles posteriorly Abdominal: General: Bowel sounds are normal. Palpations: Abdomen is soft. Musculoskeletal: General: Normal range of motion. Cervical back: Normal range of motion and neck supple. Right lower leg: Edema (trace) present. Skin: General: Skin is warm and dry. Neurological: General: No focal deficit present. Mental Status: He is alert and oriented to person, place, and time. Psychiatric: Mood and Affect: Mood normal. Thought Content: Thought content normal. Data Reviewed and Summarized EF BP Date Value Ref Range Status 09/10/2023 46 (A) 55 - 100 % Final Review of tests/labs done/ordered within my specialty: EKG in office: ? Atrial rhythm Review of tests/labs done/ordered outside my specialty: Independent interpretation of tests: KIARA Sanchez CNP documented in this encounter [place] 09-03-2023 Telephone encounter Note Labs reviewed, see result message. mm [place] 09-03-2023 Miscellaneous Notes Labs reviewed, see result message. mm documented in this encounter [place] 09-03-2023 History of Present illness Narrative Images from the original note were not included. [facility] [address] [address] Dept: [phone] Dept Visit type: Established : 1955 Reason for Visit: No chief complaint on file. Assessment and Plan Acute HFpEF. Labs today as outlined. We will continue Lasix at 40 mg daily. BP is a bit soft. We will see him back in one week with echo at that time. He understands sodium restriction and daily weights. He will reduce alcohol intake. 2. Mitral valve insufficiency, unspecified etiology - ECG 12 lead - CLINIC PERFORMED - Basic metabolic panel - CBC auto differential - XR chest 2 views - NT PRO BNP - TSH S/p mitral valve perivalvular plug. I do not hear a mitral regurgitation murmur on on exam. He is scheduled follow up echo. He remains on Coumadin for PAF, no ASA. He will require alf SBE prophylaxis 3. Anemia. Recent EGD negative for bleeding, patient diagnosed with celiac disease. Gluten free diet recommended Follow up in about 1 month (around 10/03/2023) for Faby. Subjective Mr Walls is a 68 yr old male known to Dr. Royal and Dr. Hobbs with 4 + perivalvular mitral regurgitation. He had a bioprosthetic mitral valve replacement in 2010 followed by infective endocarditis which led to redo bioprosthetic mitral valve replacement (#29 Medtronic tissue valve), TVr (#36 mm ring) in 2014; HFpEF, chronic kidney disease stage 2, hypertension, paroxysmal atrial fibrillation, s/p PPM. Pt underwent a GALO on 05/29/23 which demonstrated severe (4+) paravalvular mitral valve regurgitation originating from mid posterior with an eccentrically directed jet. He underwent perivalvular leak plug of his bioprosthetic mitral valve on 07/30/2023. MR was reduced to 1+. At his one week appt he was doing well. He had been taking Lasix prn, blood pressure improve, and appetite was even getting better. He did not have dyspnea until about 2 weeks ago. He developed progressive fatigue and then edema and weight gain. His weight today is up 9 lbs. He took 80 mg Lasix yesterday and 80 mg this morning. His dyspnea is improved but not gone. He denies any chest pain or bleeding. He has been complaint with his medications. No Known Allergies Outpatient Medications Prior to Visit Medication Sig Dispense Refill albuterol 108 (90 Base) MCG/ACT inhaler TAKE 2 PUFFS INHALED 6 TIMES PER DAY FOR 30 DAYS NEEDED WHEEZING/SHORTNESS OF BREATH. aspirin 81 MG EC tablet Take 1 tablet (81 mg) by mouth daily. Take aspirin until INR above 2.0 30 tablet 11 atorvastatin (Lipitor) 20 MG tablet Take 20 mg by mouth in the morning. buPROPion SR (Wellbutrin SR) 150 MG 12 hr tablet Take 150 mg by mouth 2 times daily. empagliflozin (Jardiance) 10 MG Take 1 tablet (10 mg) by mouth daily. 90 tablet 3 furosemide (Lasix) 40 MG tablet Take 1 tablet (40 mg) by mouth daily. 90 tablet 0 HYDROcodone-acetaminophen ([place]) 5-325 MG tablet TAKE 1 TABLET BY MOUTH FOUR TIMES DAILY FOR 28 DAYS levothyroxine (Synthroid, Levoxyl) 100 MCG tablet Take 100 mcg by mouth every morning (before breakfast). metoprolol succinate XL (Toprol-XL) 50 MG 24 hr tablet Take 50 mg by mouth daily. spironolactone (Aldactone) 25 MG tablet Take 1 tablet (25 mg) by mouth daily. 90 tablet 3 tamsulosin (Flomax) 0.4 MG 24 hr capsule Take 0.4 mg by mouth in the morning and 0.4 mg in the evening. tiZANidine (Zanaflex) 4 MG tablet TAKE 1 TABLET ORAL TWICE A DAY FOR 30 DAYS traZODone (Desyrel) 100 MG tablet TAKE 3 TABLETS BY MOUTH EVERYDAY AT BEDTIME warfarin (Coumadin) 2.5 MG tablet 2.5 MG ORALLY DAILY FOR BLOOD THINNER No facility-administered medications prior to visit. Past Medical History: Diagnosis Date Anemia Arthritis Bone infection ([facility]) spine CAD (coronary artery disease) Chronic back pain Chronic kidney disease 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) 04/30/2023 COPD (chronic obstructive pulmonary disease) ([facility]) Depression DVT (deep venous thrombosis) ([facility]) Endocarditis History of blood transfusion Hyperlipidemia Hypertension 01/13/2011 Hyperthyroidism Pacemaker Paroxysmal A-fib ([facility]/HCC) ([facility]) Pneumonia Social History Tobacco Use Smoking status: Every Day Packs/day: .5 Types: Cigarettes Start date: 04/30/1975 Passive exposure: Never Smokeless tobacco: Former Quit date: 04/30/2015 Substance Use Topics Alcohol use: Yes Past Surgical History: Procedure Laterality Date CARDIAC CATHETERIZATION N/A 05/25/2023 Performed by Lance Hobbs MD at [facility] Cardiac Cath/EP Lab CARDIAC VALVE REPLACEMENT 2010 [facility] HARDWARE REMOVAL Right 05/02/2016 SCREW IN RIGHT 4TH TOE INSERT / REPLACE / REMOVE PACEMAKER 10/10/2014 MITRAL VALVE REPLACEMENT 07/27/2014 bioprosthetic valve TRICUSPID VALVE SURGERY 07/27/2014 Repair Family History Problem Relation Name Age of Onset Atrial fibrillation Mother Other (08063) Mother pacemaker Heart disease Father Objective Vitals: 09/03/23 0935 BP: 98/68 BP Location: Left arm Patient Position: Sitting BP Cuff Size: Adult Pulse: 70 SpO2: 99% Weight: 154 lb (69.9 kg) Height: 5' 8 (1.727 m) Physical Exam Constitutional: Appearance: Normal appearance. HENT: Head: Normocephalic and atraumatic. Nose: Nose normal. Eyes: Conjunctiva/sclera: Conjunctivae normal. Pupils: Pupils are equal, round, and reactive to light. Neck: Comments: JVD present Cardiovascular: Rate and Rhythm: Normal rate and regular rhythm. Pulmonary: Effort: Pulmonary effort is normal. Comments: Basilar crackles posteriorly Abdominal: General: Bowel sounds are normal. Palpations: Abdomen is soft. Musculoskeletal: General: Normal range of motion. Cervical back: Normal range of motion and neck supple. Right lower leg: Edema present. Left lower leg: Edema present. Skin: General: Skin is warm and dry. Neurological: General: No focal deficit present. Mental Status: He is alert and oriented to person, place, and time. Psychiatric: Mood and Affect: Mood normal. Thought Content: Thought content normal. Data Reviewed and Summarized EF BP Date Value Ref Range Status 07/29/2023 44 (A) 55 - 100 % Final Review of tests/labs done/ordered within my specialty: EKG in office: atrial paced Review of tests/labs done/ordered outside my specialty: Independent interpretation of tests: KIARA Sanchez CNP documented in this encounter [place] 08-24-2023 Evaluation + Plan note Extrac nilson from: Title:Clinical Document Author:CASIE IRBY Date:08/24/23 SPERRY ADMISSION HISTORY AN D PHYSICIAL CHIEF COMPLAINT: HISTORY OF PRESENT ILLNESS: REVIEW OF SYSTEMS: ACTIVE PROBLEMS: (3) Cardiac pacemaker in situ ([id number]) Hypertension ([id number]) Sleep apnea ([id number]) MEDICATIONS: Active Inpt Meds: None Active PRN Meds: None One Time Meds: (Completed) glycopyrrolate (glycopyrrolate (ANES)) IV Push, Once, Stop: 08/24/23 8:28:00 EDT Active IV Meds: Lactated Ringers Infusion 1,000 mL (LR 1,000 mL) Start: 08/24/23 7:46:00 EDT, Rate: 50 mL/hr, 08/24/23 7:46:00 EDT ALLERGIES: (1) NKA FAMILY HISTORY: SOCIAL HISTORY: PHYSICAL EXAM: VITALS: [id number](kg) 08/23 07:5536.5--[id number]/08 68.2 24 Hr Tmax: 36.5 at 08/23 07:55 36 Hr Tmax: 36.5 at 08/23 07:55 Vital Signs are the last 5 in the past 48 hours. Weights display the last 5 within 7 days. Initial Wt: 08/23 68.2 kg 150 lb Current Wt: 08/23 68.2 kg 150 lb GENERAL: HEENT: CARDIOVASCULAR: RESPIRATORY: ABDOMEN: EXREMETIES: NEUROLOGICAL: PSYCHIATRIC: LABS: No 36hr Lab Data DIAGNOSTICS: IMPRESSION: PLAN: History and Physical Update I have examined the patient; reviewed the H&P and there are no changes to the H&P unless noted below. [facility] 04-08-2024 Hospital Discharge instructions Patient Education 08/24/2023 08:51:37 Esophagogastroduodenoscopy, Care After (63167) Esophagogastroduodenoscopy, Care After Refer to this sheet in the next few weeks. These instructions provide you with information about caring for yourself after your procedure. Your health care provider may also give you more specific instructions. Your treatment has been planned according to current medical practices, but problems sometimes occur. Call your health care provider if you have any problems or questions after your procedure. What can I expect after the procedure? After the procedure, it is common to have: A sore throat. Nausea. Bloating. Dizziness. Fatigue. Follow these instructions at home: Do not eat or drink anything until the numbing medicine (local anesthetic) has worn off and your gag reflex has returned. You will know that the local anesthetic has worn off when you can swallow comfortably. Do not drive for 24 hours if you received a medicine to help you relax (sedative). If your health care provider took a tissue sample for testing during the procedure, make sure to get your test results. This is your responsibility. Ask your health care provider or the department performing the test when your results will be ready. Keep all follow-up visits as told by your health care provider. This is important. Contact a health care provider if: You cannot stop coughing. You are not urinating. You are urinating less than usual. Get help right away if: You have trouble swallowing. You cannot eat or drink. You have throat or chest pain that gets worse. You are dizzy or light-headed. You faint. You have nausea or vomiting. You have chills. You have a fever. You have severe abdominal pain. You have black, tarry, or bloody stools. This information is not intended to replace advice given to you by your health care provider. Make sure you discuss any questions you have with your health care provider. Document Released: 04/20/2013 Document Revised: 10/09/2016 Document Reviewed: 03/27/2016 [employer] Patient Education 2019 [employer]. 08/24/2023 08:51:12 Monitored Anesthesia Care, Care After Monitored Anesthesia Care, Care After These instructions provide you with information about caring for yourself after your procedure. Your health care provider may also give you more specific instructions. Your treatment has been plannedaccording to current medical practices, but problems sometimes occur. Call your health care provider if you have any problems or questions after your procedure. What can I expect after the procedure? After your procedure, you may: Feel sleepy for several hours. Feel clumsy and have poor balance for several hours. Feel forgetful about what happened after the procedure. Have poor judgment for several hours. Feel nauseous or vomit. Have a sore throat if you had a breathing tube during the procedure. Follow these instructions at home: For at least 24 hours after the procedure: Have a responsible adult stay with you. It is important to have someone help care for you until youare awake and alert. Rest as needed. Do not: ?Participate in activities in which you could fall or become injured. ?Drive. ?Use heavy machinery. ?Drink alcohol. ?Take sleeping pills or medicines that cause drowsiness. ?Make important decisions or sign legal documents. ?Take care of children on your own. Eating and drinking Follow the diet that is recommended by your health care provider. If you vomit, drink water, juice, or soup when you can drink without vomiting. Make sure you have little or no nausea before eating solid foods. General instructions Take [id number]-[id number] and prescription medicines only as told by your health care provider. If you have sleep apnea, surgery and certain medicines can increase your risk for breathing problems. Follow instructions from your health care provider about wearing your sleep device: ?Anytime you are sleeping, including during daytime naps. ?While taking prescription pain medicines, sleeping medicines, or medicines that make you drowsy. If you smoke, do not smoke without supervision. Keep all follow-up visits as told by your health care provider. This is important. Contact a health care provider if: You keep feeling nauseous or you keep vomiting. You feel light-headed. You develop a rash. You have a fever. Get help right away if: You have trouble breathing. Summary For several hours after your procedure, you may feel sleepy and have poor judgment. Have a responsible adult stay with you for at least 24 hours or until you are awake and alert. This information is not intended to replace advice given to you by your health care provider. Make sure you discuss any questions you have with your health care provider. Document Released: 08/24/2016 Document Revised: 08/02/2018 Document Reviewed: 08/24/2016 [employer] Patient Education 2020 [employer]. 08/24/2023 08:51:02 Gluten-Free Diet for Celiac Disease, Adult Gluten-Free Diet for Celiac Disease, Adult The gluten-free diet includes all foods that do not contain gluten. Gluten is a protein that is found in wheat, rye, barley, and some other grains. Following the gluten-free diet is the only treatment for people with celiac disease. It helps to prevent damage to the intestines and improves or eliminates the symptoms of celiac disease. Following the gluten-free diet requires some planning. It can be challenging at first, but it gets easier with time and practice. There are more gluten-free options available today than ever before. If you need help finding gluten-free foods or if you have questions, talk with your diet and nutritionist public health (registered dietitian) or your health care provider. What do I need to know about a gluten-free diet? All fruits, vegetables, and meats are safe to eat and do not contain gluten. When grocery shopping, start by shopping in the produce, meat, and dairy sections. These sections are more likely to contain gluten-free foods. Then move to the aisles that contain packaged foods if you need to. Read all food labels. Gluten is often added to foods. Always check the ingredient list and look forwarnings, such as may contain gluten. Talk with your dietitian or health care provider before taking a gluten-free multivitamin or mineral supplement. Be aware of gluten-free foods having contact with foods that contain gluten (cross-contamination). This can happen at home and with any processed foods. ?Talk with your health care provider or dietitian about how to reduce the risk of cross-contamination in your home. ?If you have questions about how a food is processed, ask the floor nurse. What taylor words help to identify gluten? Foods that list any of these taylor words on the label usually contain gluten: Wheat, flour, enriched flour, bromated flour, white flour, durum flour, anaya flour, phosphated flour, self-rising flour, semolina, farina, barley (malt), rye, and oats. Starch, dextrin, modified food starch, or cereal. Thickening, fillers, or emulsifiers. Malt flavoring, malt extract, or malt syrup. Hydrolyzed vegetable protein. In the [place] packaged foods that are gluten-free are required to be labeled GF. These foods should be easy to identify and are safe to eat. In the [place] food companies are also required to list common food allergens, including wheat, on their labels. Recommended foods Grains Amaranth, curry flours, 100% buckwheat flour, corn, millet, nut flours or nut meals, GF oats, quinoa, rice, sorghum, teff, rice wafers, pure cornmeal tortillas, popcorn, and hot cereals made from cornmeal. Central, rice, wild rice. Some rice noodles or curry noodles. Arrowroot starch, corn bran,corn flour, corn germ, cornmeal, corn starch, potato flour, potato starch flour, and rice bran. Plain, brown, and sweet rice flours. Rice greek, soy flour, and tapioca starch. Vegetables All plain fresh, frozen, and canned vegetables. Fruits All plain fresh, frozen, canned, and dried fruits, and 100% fruit juices. Meats and other protein foods All fresh beef, pork, poultry, fish, seafood, and eggs. Fish canned in water, oil, brine, or vegetable broth. Plain nuts and seeds, peanut butter. Some lunch meat and some frankfurters. Dried beans, dried peas, and lentils. Dairy Fresh plain, dry, evaporated, or condensed milk. Cream, butter, sour cream, whipping cream, and most yogurts. Unprocessed cheese, most processed cheeses, some cottage cheese, some cream cheeses. Beverages Coffee, tea, most herbal teas. Carbonated beverages and some root beers. Wine, sake, and distilled spirits, such as gin, vodka, and whiskey. Most hard ciders. Fats and oils Butter, margarine, vegetable oil, hydrogenated butter, olive oil, shortening, lard, cream, and somemayonnaise. Some commercial salad dressings. Olives. Sweets and desserts Sugar, honey, some syrups, molasses, jelly, and jam. Plain hard candy, marshmallows, and gumdrops. Pure cocoa powder. Plain chocolate. Custard and some pudding mixes. Gelatin desserts, sorbets, frozen ice pops, and sherbet. Cake, cookies, and other desserts prepared with allowed flours. Some commercial ice creams. Cornstarch, tapioca, and rice puddings. Seasoning and other foods Some canned or frozen soups. Monosodium glutamate (MSG). Cider, rice, and wine vinegar. Baking sodaand baking powder. Cream of tartar. Baking and nutritional yeast. Certain soy sauces made without wheat (ask your dietitian about specific brands that are allowed). Nuts, coconut, and chocolate. Salt, pepper, herbs, spices, flavoring extracts, imitation or artificial flavorings, natural flavorings,and food colorings. Some medicines and supplements. Some lip glosses and other cosmetics. Rice syrups. The items listed may not be a complete list. Talk with your dietitian about what dietary choices are best for you. Foods to avoid Grains Barley, bran, bulgur, couscous, cracked wheat, [place], farro, anaya, malt, matzo, semolina, wheat germ, and all wheat and rye cereals including spelt and kamut. Cereals containing malt as a flavoring, such as rice cereal. Noodles, spaghetti, macaroni, most packaged rice mixes, and all mixes containing wheat, rye, barley, or triticale. Vegetables Most creamed vegetables and most vegetables canned in sauces. Some commercially prepared vegetablesand salads. Fruits Thickened or prepared fruits and some pie fillings. Some fruit snacks and fruit roll-ups. Meats and other protein foods Any meat or meat alternative containing wheat, rye, barley, or gluten stabilizers. These are often marinated or packaged meats and lunch meats. Bread- containing products, such as Haitian steak, croquettes, meatballs, and meatloaf. Most tuna canned in vegetable broth and turkey with hydrolyzed vegetable protein (HVP) injected as part of the basting. Seitan. Imitation fish. Eggs in sauces made from ingredients to avoid. Dairy Commercial chocolate milk drinks and malted milk. Some non-dairy creamers. Any cheese product containing ingredients to avoid. Beverages Certain cereal beverages. Beer, aislinn, malted milk, and some root beers. Some hard ciders. Some instant flavored coffees. Some herbal teas made with barley or with barley malt added. Fats and oils Some commercial salad dressings. Sour cream containing modified food starch. Sweets and desserts Some toffees. Chocolate-coated nuts (may be rolled in wheat flour) and some commercial candies and candy bars. Most cakes, cookies, donuts, pastries, and other baked goods. Some commercial ice cream.Ice cream cones. Commercially prepared mixes for cakes, cookies, and other desserts. Bread pudding and other puddings thickened with flour. Products containing brown rice syrup made with barley malt enzyme. Desserts and sweets made with malt flavoring. Seasoning and other foods Some hernández powders, some dry seasoning mixes, some gravy extracts, some meat sauces, some ketchups,some prepared mustards, and horseradish. Certain soy sauces. Malt vinegar. Bouillon and bouillon cubes that contain HVP. Some chip dips, and some chewing gum. Yeast extract. Kiran s yeast. Caramel color. Some medicines and supplements. Some lip glosses and other cosmetics. The items listed may not be a complete list. Talk with your dietitian about what dietary choices are best for you. Summary Gluten is a protein that is found in wheat, rye, barley, and some other grains. The gluten-free diet includes all foods that do not contain gluten. If you need help finding gluten-free foods or if you have questions, talk with your diet and nutritionist public health (registered dietitian) or your health care provider. Read all food labels. Gluten is often added to foods. Always check the ingredient list and look forwarnings, such as may contain gluten. This information is not intended to replace advice given to you by your health care provider. Make sure you discuss any questions you have with your health care provider. Document Released: 05/04/2006 Document Revised: 04/16/2018 Document Reviewed: 02/16/2017 [employer] Patient Education 2020 [employer]. 08/24/2023 08:50:57 Celiac Disease Celiac Disease Celiac disease is an allergy to the protein called gluten. When a person with celiac disease eats afood that has gluten in it, his or her natural defense system (immune system) attacks the cells that line the small intestine. Over time, this reaction damages the small intestine and makes the smallintestine unable to absorb nutrients from food. Gluten is found in wheat, rye, and barley and in foods like pasta, pizza, and cereal. Celiac disease is also known as celiac sprue, nontropical sprue, and gluten-sensitive enteropathy. What are the causes? This condition is caused by a gene that is passed down through families (inherited). What increases the risk? You are more likely to develop this condition if you: Have a family member with the disease. Have an autoimmune condition, such as type 1 diabetes or a thyroid disorder. Are female. What are the signs or symptoms? Symptoms of this condition include: Recurring bloating and pain in the abdomen. Gas. Long-term (chronic) diarrhea. Pale, bad-smelling, greasy, or oily stool. Weight loss. Missed menstrual periods. Weakening bones (osteoporosis). Fatigue and weakness. Tingling or other signs of nerve damage. Depression. Poor appetite. Rash. In some cases, there are no symptoms of this condition. How is this diagnosed? This condition is diagnosed with a physical exam and tests. Tests may include: Blood tests to check for nutritional deficiencies. Blood tests to look for evidence that the body is attacking cells in the small intestine. A test in which a sample of tissue is taken from the small intestine and examined under a microscope (biopsy). X-rays of the intestine. Stool tests. Tests to check for nutrient absorption from the intestine. How is this treated? There is no cure for this condition, but it may be managed with a gluten-free diet. Treatment may also involve avoiding dairy foods, such as milk and cheese, because they are hard to digest. Most people who follow a gluten-free diet feel better and stop having symptoms. The intestine usually heals within 3 months to 2 years. In a small percentage of people, this condition does not improve on the gluten- free diet. If your condition does not improve, more tests will be done. You will also need to work with a specialist in celiac disease to find the best treatment for you. Follow these instructions at home: Follow instructions from your health care provider about diet. Monitor your body's response to the gluten-free diet. Write down any changes in your symptoms and changes in how you feel. If you decide to eat outside of the home, prepare your meal ahead of time, or make sure that the place where you are going has gluten-free options. Keep all follow-up visits as told by your health care provider. This is important. Suggest to family members that they get screened for early signs of the disease. Contact a health care provider if: You continue to have symptoms, even when you are eating a gluten-free diet. You have trouble sticking to the gluten-free diet. You develop an itchy rash with groups of tiny blisters. You develop severe weakness. You develop balance problems. You develop new symptoms. Summary Celiac disease is an allergy to the protein called gluten. Over time, this reaction damages the small intestine and makes the small intestine unable to absorb nutrients from food. There is no cure for this condition, but it may be managed with a gluten-free diet and by avoiding dairy foods. Follow instructions from your health care provider about diet. Write down any changes in your symptoms and changes in how you feel. Contact a health care provider if you continue to have symptoms, even when you are eating a gluten-free diet, or you have new symptoms. Keep all follow-up visits as told by your health care provider. This is important. This information is not intended to replace advice given to you by your health care provider. Make sure you discuss any questions you have with your health care provider. Document Released: 05/04/2006 Document Revised: 09/22/2018 Document Reviewed: 09/22/2018 [employer] Patient Education 2020 [employer]. Follow Up Care 08/17/2023 09:00:22 With:CASIE IRBY MD Address: [address] [facility] [address] [place], [place] [id number] [phone] When: Unknown Comments:CALL DR IRBY WITH ANY QUESTIONS OR CONCERNS GO TO THE EMERGENCY ROOM WITH ANY URGENT CONCERNS. YOUR CELIAC TITER WAS POSITIVE. BIOPSIES WERE TAKEN TODAY. THE OFFICE SHOULD CALL YOU WITH THOSE RESULTS BY THE END OF THE WEEK. CALL THE OFFICE IF YOU DO NOT HEAR FROM DR IRBY'S OFFICE. [facility] 04-08-2024 Note Discharge Instructions Thank you for allowing [facility] to assist you with your healthcare needs. The following is importantdischarge information regarding your hospital visit. Your Care Team DR CASIE IRBY Your Diagnosis EGD WITH BIOPSIES. What to do next Follow Up Appointments Follow Up with CASIE IRBY MD When Why: CALL DR IRBY WITH ANY QUESTIONS OR CONCERNS GO TO THE EMERGENCY ROOM WITH ANY URGENT CONCERNS. YOUR CELIAC TITER WAS POSITIVE. BIOPSIES WERE TAKEN TODAY. THE OFFICE SHOULD CALL YOU WITH THOSE RESULTS BY THE END OF THE WEEK. CALL THE OFFICE IF YOU DO NOT HEAR FROM DR IRBY'S OFFICE. Where: [address] [facility] [address] [place] [address] [phone] The Following Activity and Diet Have Been Ordered for You Discharge Activity - Ordered -- NO activity restrictions, 08/24/23 8:43:00 EDT Discharge Diet - Ordered -- Follow the post-operative/post-procedure diet instructions provided by your physician's office.,08/24/23 8:43:00 EDT The Following Equipment Has Been Ordered for You Discharge Home Equipment Discharge Wound Care - Ordered -- Follow the post-operative/post-procedure wound care instructions provided by your physician's office., 08/24/23 8:43:00 EDT Someone Will Contact You Regarding These Home Health Referrals No home referrals have been ordered for you. No one will call you. Allergies NKA Medications Please ask your primary doctor or pharmacist before taking any other medication not listed, including over the counter drugs, herbal medications, vitamins and or supplements as they may interact withyour home medications. What How Much When Instructions Last Dose Unchanged acetaminophen-hydrocodone ([place] 325- 5 mg oraltablet) 1 tab(s) by mouth Every 6 hours as needed for as needed for pain Unchanged albuterol (Albuterol (Eqv-Proventil HFA) 90 mcg/ inh inhalation aerosol) Unchanged aspirin (aspirin 81 mg oral delayed release tablet) 1 tab(s) by mouth Every day Unchanged atorvastatin (Lipitor 20 mg oral tablet) 1 tab(s) by mouth Every day Unchanged buPROPion (Wellbutrin SR 150 mg/ 12 hours oral tablet, extended release) 1 tab(s) by mouth Two (2) times a day Unchanged ferrous fumarate (ferrous fumarate 325 mg (106 mg elemental iron) oral tablet) 1 tab(s) by mouth Every day Unchanged levothyroxine (Synthroid) 88 Microgram by mouth Once a day Unchanged spironolactone (spironolactone 25 mg oral tablet) Unchanged tamsulosin (Flomax 0.4 mg oral capsule) 1 cap by mouth Once a day after a meal Unchanged tiZANidine (tiZANidine 2 mg oral tablet) 2 tab(s) by mouth Every 8 hours Unchanged traZODone (traZODone 100 mg oral tablet) See instructions 2 tabs qHS Unchanged warfarin (Coumadin 2 mg oral tablet) 1 tab(s) by mouth Every day Please take this list to your next doctor s visit. Bring all medications you take, including over the counter medications, herbals and other supplements with you to your doctor s visit. Patients and families are reminded to discard old lists and to update any records with all medication providers or retail pharmacies. Education Materials Esophagogastroduodenoscopy, Care After Refer to this sheet in the next few weeks. These instructions provide you with information about caring for yourself after your procedure. Your health care provider may also give you more specific instructions. Your treatment has been planned according to current medical practices, but problems sometimes occur. Call your health care provider if you have any problems or questions after your procedure. What can I expect after the procedure? After the procedure, it is common to have: A sore throat. Nausea. Bloating. Dizziness. Fatigue. Follow these instructions at home: Do not eat or drink anything until the numbing medicine (local anesthetic) has worn off and your gag reflex has returned. You will know that the local anesthetic has worn off when you can swallow comfortably. Do not drive for 24 hours if you received a medicine to help you relax (sedative). If your health care provider took a tissue sample for testing during the procedure, make sure to get your test results. This is your responsibility. Ask your health care provider or the department performing the test when your results will be ready. Keep all follow-up visits as told by your health care provider. This is important. Contact a health care provider if: You cannot stop coughing. You are not urinating. You are urinating less than usual. Get help right away if: You have trouble swallowing. You cannot eat or drink. You have throat or chest pain that gets worse. You are dizzy or light-headed. You faint. You have nausea or vomiting. You have chills. You have a fever. You have severe abdominal pain. You have black, tarry, or bloody stools. This information is not intended to replace advice given to you by your health care provider. Make sure you discuss any questions you have with your health care provider. Document Released: 04/20/2013 Document Revised: 10/09/2016 Document Reviewed: 03/27/2016 [employer] Interactive Patient Education 2019 [employer] Monitored Anesthesia Care, Care After These instructions provide you with information about caring for yourself after your procedure. Your health care provider may also give you more specific instructions. Your treatment has been plannedaccording to current medical practices, but problems sometimes occur. Call your health care provider if you have any problems or questions after your procedure. What can I expect after the procedure? After your procedure, you may: Feel sleepy for several hours. Feel clumsy and have poor balance for several hours. Feel forgetful about what happened after the procedure. Have poor judgment for several hours. Feel nauseous or vomit. Have a sore throat if you had a breathing tube during the procedure. Follow these instructions at home: For at least 24 hours after the procedure: Have a responsible adult stay with you. It is important to have someone help care for you until youare awake and alert. Rest as needed. Do not: ? Participate in activities in which you could fall or become injured. ? Drive. ? Use heavy machinery. ? Drink alcohol. ? Take sleeping pills or medicines that cause drowsiness. ? Make important decisions or sign legal documents. ? Take care of children on your own. Eating and drinking Follow the diet that is recommended by your health care provider. If you vomit, drink water, juice, or soup when you can drink without vomiting. Make sure you have little or no nausea before eating solid foods. General instructions Take nksw-eoo-foulkdi and prescription medicines only as told by your health care provider. If you have sleep apnea, surgery and certain medicines can increase your risk for breathing problems. Follow instructions from your health care provider about wearing your sleep device: ? Anytime you are sleeping, including during daytime naps. ? While taking prescription pain medicines, sleeping medicines, or medicines that make you drowsy. If you smoke, do not smoke without supervision. Keep all follow-up visits as told by your health care provider. This is important. Contact a health care provider if: You keep feeling nauseous or you keep vomiting. You feel light-headed. You develop a rash. You have a fever. Get help right away if: You have trouble breathing. Summary For several hours after your procedure, you may feel sleepy and have poor judgment. Have a responsible adult stay with you for at least 24 hours or until you are awake and alert. This information is not intended to replace advice given to you by your health care provider. Make sure you discuss any questions you have with your health care provider. Document Released: 08/24/2016 Document Revised: 08/02/2018 Document Reviewed: 08/24/2016 [employer] Patient Education 2020 [employer] Gluten-Free Diet for Celiac Disease, Adult The gluten-free diet includes all foods that do not contain gluten. Gluten is a protein that is found in wheat, rye, barley, and some other grains. Following the gluten-free diet is the only treatment for people with celiac disease. It helps to prevent damage to the intestines and improves or eliminates the symptoms of celiac disease. Following the gluten-free diet requires some planning. It can be challenging at first, but it gets easier with time and practice. There are more gluten-free options available today than ever before. If you need help finding gluten-free foods or if you have questions, talk with your diet and nutritionist public health (registered dietitian) or your health care provider. What do I need to know about a gluten-free diet? All fruits, vegetables, and meats are safe to eat and do not contain gluten. When grocery shopping, start by shopping in the produce, meat, and dairy sections. These sections are more likely to contain gluten-free foods. Then move to the aisles that contain packaged foods if you need to. Read all food labels. Gluten is often added to foods. Always check the ingredient list and look forwarnings, such as may contain gluten. Talk with your dietitian or health care provider before taking a gluten-free multivitamin or mineral supplement. Be aware of gluten-free foods having contact with foods that contain gluten (cross-contamination). This can happen at home and with any processed foods. ? Talk with your health care provider or dietitian about how to reduce the risk of cross-contamination in your home. ? If you have questions about how a food is processed, ask the floor nurse. What taylor words help to identify gluten? Foods that list any of these taylor words on the label usually contain gluten: Wheat, flour, enriched flour, bromated flour, white flour, durum flour, anaya flour, phosphated flour, self-rising flour, semolina, farina, barley (malt), rye, and oats. Starch, dextrin, modified food starch, or cereal. Thickening, fillers, or emulsifiers. Malt flavoring, malt extract, or malt syrup. Hydrolyzed vegetable protein. In the [place] packaged foods that are gluten-free are required to be labeled GF. These foods should be easy to identify and are safe to eat. In the [place] [employer] companies are also required to list common food allergens, including wheat, on their labels. Recommended foods Grains Amaranth, curry flours, 100% buckwheat flour, corn, millet, nut flours or nut meals, GF oats, quinoa, rice, sorghum, teff, rice wafers, pure cornmeal tortillas, popcorn, and hot cereals made from cornmeal. Central, rice, wild rice. Some rice noodles or curry noodles. Arrowroot starch, corn bran,corn flour, corn germ, cornmeal, corn starch, potato flour, potato starch flour, and rice bran. Plain, brown, and sweet rice flours. Rice greek, soy flour, and tapioca starch. Vegetables All plain fresh, frozen, and canned vegetables. Fruits All plain fresh, frozen, canned, and dried fruits, and 100% fruit juices. Meats and other protein foods All fresh beef, pork, poultry, fish, seafood, and eggs. Fish canned in water, oil, brine, or vegetable broth. Plain nuts and seeds, peanut butter. Some lunch meat and some frankfurters. Dried beans, dried peas, and lentils. Dairy Fresh plain, dry, evaporated, or condensed milk. Cream, butter, sour cream, whipping cream, and most yogurts. Unprocessed cheese, most processed cheeses, some cottage cheese, some cream cheeses. Beverages Coffee, tea, most herbal teas. Carbonated beverages and some root beers. Wine, sake, and distilled spirits, such as gin, vodka, and whiskey. Most hard ciders. Fats and oils Butter, margarine, vegetable oil, hydrogenated butter, olive oil, shortening, lard, cream, and somemayonnaise. Some commercial salad dressings. Olives. Sweets and desserts Sugar, honey, some syrups, molasses, jelly, and jam. Plain hard candy, marshmallows, and gumdrops. Pure cocoa powder. Plain chocolate. Custard and some pudding mixes. Gelatin desserts, sorbets, frozen ice pops, and sherbet. Cake, cookies, and other desserts prepared with allowed flours. Some commercial ice creams. Cornstarch, tapioca, and rice puddings. Seasoning and other foods Some canned or frozen soups. Monosodium glutamate (MSG). Cider, rice, and wine vinegar. Baking sodaand baking powder. Cream of tartar. Baking and nutritional yeast. Certain soy sauces made without wheat (ask your dietitian about specific brands that are allowed). Nuts, coconut, and chocolate. Salt, pepper, herbs, spices, flavoring extracts, imitation or artificial flavorings, natural flavorings,and food colorings. Some medicines and supplements. Some lip glosses and other cosmetics. Rice syrups. The items listed may not be a complete list. Talk with your dietitian about what dietary choices are best for you. Foods to avoid Grains Barley, bran, bulgur, couscous, cracked wheat, Woodall, farro, anaya, malt, matzo, semolina, wheat germ, and all wheat and rye cereals including spelt and kamut. Cereals containing malt as a flavoring, such as rice cereal. Noodles, spaghetti, macaroni, most packaged rice mixes, and all mixes containing wheat, rye, barley, or triticale. Vegetables Most creamed vegetables and most vegetables canned in sauces. Some commercially prepared vegetablesand salads. Fruits Thickened or prepared fruits and some pie fillings. Some fruit snacks and fruit roll-ups. Meats and other protein foods Any meat or meat alternative containing wheat, rye, barley, or gluten stabilizers. These are often marinated or packaged meats and lunch meats. Bread- containing products, such as Haitian steak, croquettes, meatballs, and meatloaf. Most tuna canned in vegetable broth and turkey with hydrolyzed vegetable protein (HVP) injected as part of the basting. Seitan. Imitation fish. Eggs in sauces made from ingredients to avoid. Dairy Commercial chocolate milk drinks and malted milk. Some non-dairy creamers. Any cheese product containing ingredients to avoid. Beverages Certain cereal beverages. Beer, aislinn, malted milk, and some root beers. Some hard ciders. Some instant flavored coffees. Some herbal teas made with barley or with barley malt added. Fats and oils Some commercial salad dressings. Sour cream containing modified food starch. Sweets and desserts Some toffees. Chocolate-coated nuts (may be rolled in wheat flour) and some commercial candies and candy bars. Most cakes, cookies, donuts, pastries, and other baked goods. Some commercial ice cream.Ice cream cones. Commercially prepared mixes for cakes, cookies, and other desserts. Bread pudding and other puddings thickened with flour. Products containing brown rice syrup made with barley malt enzyme. Desserts and sweets made with malt flavoring. Seasoning and other foods Some hernández powders, some dry seasoning mixes, some gravy extracts, some meat sauces, some ketchups,some prepared mustards, and horseradish. Certain soy sauces. Malt vinegar. Bouillon and bouillon cubes that contain HVP. Some chip dips, and some chewing gum. Yeast extract. Kiran s yeast. Caramel color. Some medicines and supplements. Some lip glosses and other cosmetics. The items listed may not be a complete list. Talk with your dietitian about what dietary choices are best for you. Summary Gluten is a protein that is found in wheat, rye, barley, and some other grains. The gluten-free diet includes all foods that do not contain gluten. If you need help finding gluten-free foods or if you have questions, talk with your diet and nutritionist public health (registered dietitian) or your health care provider. Read all food labels. Gluten is often added to foods. Always check the ingredient list and look forwarnings, such as may contain gluten. This information is not intended to replace advice given to you by your health care provider. Make sure you discuss any questions you have with your health care provider. Document Released: 05/04/2006 Document Revised: 04/16/2018 Document Reviewed: 02/16/2017 [employer] Patient Education 2020 [employer] Celiac Disease Celiac disease is an allergy to the protein called gluten. When a person with celiac disease eats afood that has gluten in it, his or her natural defense system (immune system) attacks the cells that line the small intestine. Over time, this reaction damages the small intestine and makes the smallintestine unable to absorb nutrients from food. Gluten is found in wheat, rye, and barley and in foods like pasta, pizza, and cereal. Celiac disease is also known as celiac sprue, nontropical sprue, and gluten-sensitive enteropathy. What are the causes? This condition is caused by a gene that is passed down through families (inherited). What increases the risk? You are more likely to develop this condition if you: Have a family member with the disease. Have an autoimmune condition, such as type 1 diabetes or a thyroid disorder. Are female. What are the signs or symptoms? Symptoms of this condition include: Recurring bloating and pain in the abdomen. Gas. Long-term (chronic) diarrhea. Pale, bad-smelling, greasy, or oily stool. Weight loss. Missed menstrual periods. Weakening bones (osteoporosis). Fatigue and weakness. Tingling or other signs of nerve damage. Depression. Poor appetite. Rash. In some cases, there are no symptoms of this condition. How is this diagnosed? This condition is diagnosed with a physical exam and tests. Tests may include: Blood tests to check for nutritional deficiencies. Blood tests to look for evidence that the body is attacking cells in the small intestine. A test in which a sample of tissue is taken from the small intestine and examined under a microscope (biopsy). X-rays of the intestine. Stool tests. Tests to check for nutrient absorption from the intestine. How is this treated? There is no cure for this condition, but it may be managed with a gluten-free diet. Treatment may also involve avoiding dairy foods, such as milk and cheese, because they are hard to digest. Most people who follow a gluten-free diet feel better and stop having symptoms. The intestine usually heals within 3 months to 2 years. In a small percentage of people, this condition does not improve on the gluten- free diet. If your condition does not improve, more tests will be done. You will also need to work with a specialist in celiac disease to find the best treatment for you. Follow these instructions at home: Follow instructions from your health care provider about diet. Monitor your body's response to the gluten-free diet. Write down any changes in your symptoms and changes in how you feel. If you decide to eat outside of the home, prepare your meal ahead of time, or make sure that the place where you are going has gluten-free options. Keep all follow-up visits as told by your health care provider. This is important. Suggest to family members that they get screened for early signs of the disease. Contact a health care provider if: You continue to have symptoms, even when you are eating a gluten-free diet. You have trouble sticking to the gluten-free diet. You develop an itchy rash with groups of tiny blisters. You develop severe weakness. You develop balance problems. You develop new symptoms. Summary Celiac disease is an allergy to the protein called gluten. Over time, this reaction damages the small intestine and makes the small intestine unable to absorb nutrients from food. There is no cure for this condition, but it may be managed with a gluten-free diet and by avoiding dairy foods. Follow instructions from your health care provider about diet. Write down any changes in your symptoms and changes in how you feel. Contact a health care provider if you continue to have symptoms, even when you are eating a gluten-free diet, or you have new symptoms. Keep all follow-up visits as told by your health care provider. This is important. This information is not intended to replace advice given to you by your health care provider. Make sure you discuss any questions you have with your health care provider. Document Released: 05/04/2006 Document Revised: 09/22/2018 Document Reviewed: 09/22/2018 [employer] Patient Education 2020 [employer]. Additional Information VACCINATE! IT SAVES LIVES! Members of the community who have not yet received the COVID-19 vaccine and would like to receive it can visit one of [facility] vaccine clinics. There are many vaccine clinic locations within the [facility]. For locations and available times, please visit [email or web address].[place].gov/. It is important to note that some COVID mobile vaccine clinics are held outdoors and may be canceled in rainy or stormy conditions. To learn more about pediatric vaccinations (ages 5-11), we invite you to visit the [facility] webpage. [email or web address] learn more about the COVID-19 vaccine, we invite you to visit the CDC website for a list of frequently asked questions.https://www.cdc.gov/coronavirus/2019-ncov/vaccines/faq.html [employer] Patient Portal Access Instructions: Stay connected with your healthcare team and access your personal medical information anytime with the [employer] Patient Portal. Please follow the directions below to create your [employer] account: 1.Access the email account you provided upon registration to the hospital/physician office.2.Look for an invitation email from [facility].3.Open the email and access the invitation link: [facility].4.Fill in the required howard to create your account. To access your account, visit [email or web address]. Click the blue button labeled Access Patient Portal and then log in with the username and password that you created in the steps above. You will be able to view your test results, lab results, a summary of your visits, upcoming appointments and more. There is also a convenient messaging option where you can send secure messages to your p rovider. In addition, you will have the ability to download any documents or summaries to your computer and/or send the information securely to a physician. Remember that your healthcare information is confidential, so carefully consider who you will allowto register on the [facility] Patient Portal for access to your information. You can also access the [facility] Patient Portal on the [facility]. Simply click on Patient Portal and then log into your account. If you would like to receive a full copy of your medical records, please contact the [facility] Medical Records Department by calling [phone], Thursday through Thursday between 8 a.m. and 4:30 p.m. HOW TO SAFELY DISPOSE OF PRESCRIPTION MEDICATIONS Please use one of the following methods to safely dispose of your unused medications. 1.Use a drug disposal kit: the drug disposal pouch allows you to safely discard your old and unuseddrugs. Ask your nurse to give you one when you are discharged.2.Visit a local take-back location: Many local pharmacies and police departments have programs that collect old and unwanted prescriptiondrugs. Call your local pharmacy or go to http://bit.[employer]/2D1Dk1z to find one close to you.3.Make use of household items: Use cat litter or old coffee grounds to dispose medications if other options arenot available. Mix your drugs with these household products, seal them in an airtight container andthrow it into the garbage. Call [facility]: [phone] to be sure your drugs can be disposed of in this way. Some medicines may require a different approach.4.Never flush your medications down the toilet. IF YOU HAVE BEEN PRESCRIBED AN OPIOID FOR PAIN If you have been prescribed an opioid (such as hydrocodone, oxycodone or morphine), it is critical to understand the possible side effects and risks of opioid pain medications. Even when taken as directed, opioids can have several side effects including: Tolerance, meaning you might need to take more of a medication for the same pain relief. Nausea, vomiting and/or constipation. Sleepiness, dizziness, dry mouth, confusion, depression or itching. Physical dependence, meaning you have withdrawal symptoms when a medication is stopped, can develop within a few days. KNOW YOUR RESPONSIBILITIES It is important to know exactly how much and how often to take the opioid pain medications you are prescribed. Never take opioids in higher amounts or more often than prescribed. Do not combine opioids with alcohol or other drugs that cause drowsiness, such as benzodiazepines, also known as benzos, including diazepam and alprazolam, muscle relaxants or sleep aids. Never sell or share prescription opioids. This is illegal. Store opioids in a secure place and out of reach of others (including children, family, friends and visitors). The last page of this document has been signed and retained as a CHART COPY. Signatures Patient Education Materials Esophagogastroduodenoscopy, Care After (66255) Monitored Anesthesia Care, Care After Gluten-Free Diet for Celiac Disease, Adult Celiac Disease Medication Leaflets My discharge plan and instructions have been reviewed and explained to me and ITITI DURBIN D understand my current condition and have read and understand these discharge instructions. I have received a written copy of the plan/instructions. If I have questions, I am aware that I should contactmy doctor. 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: Date/Time: Relationship to Patient: Witness Name/Signature: [facility] SPERRY ADMISSION HISTORY AND PHYSICIAL CHIEF COMPLAINT: HISTORY OF PRESENT ILLNESS: REVIEW OF SYSTEMS: ACTIVE PROBLEMS: (3) Cardiac pacemaker in situ ([id number]) Hypertension ([id number]) Sleep apnea ([id number]) MEDICATIONS: Active Inpt Meds: None Active PRN Meds: None One Time Meds: (Completed) glycopyrrolate (glycopyrrolate (ANES)) IV Push, Once, Stop: 08/24/23 8:28:00 EDT Active IV Meds: Lactated Ringers Infusion 1,000 mL (LR 1,000 mL) Start: 08/24/23 7:46:00 EDT, Rate: 50 mL/hr, 08/24/23 7:46:00 EDT ALLERGIES: (1) NKA FAMILY HISTORY: SOCIAL HISTORY: PHYSICAL EXAM: VITALS: [id number](kg) 08/23 07:5536.5--[id number] 68.2 24 Hr Tmax: 36.5 at 08/23 07:55 36 Hr Tmax: 36.5 at 08/23 07:55 Vital Signs are the last 5 in the past 48 hours. Weights display the last 5 within 7 days. Initial Wt: 08/23 68.2 kg 150 lb Current Wt: 08/23 68.2 kg 150 lb GENERAL: HEENT: CARDIOVASCULAR: RESPIRATORY: ABDOMEN: EXREMETIES: NEUROLOGICAL: PSYCHIATRIC: LABS: No 36hr Lab Data DIAGNOSTICS: IMPRESSION: PLAN: History and Physical Update I have examined the patient; reviewed the H&P and there are no changes to the H&P unless noted below. 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 Family's history: negative. Health Status Allergies: Allergic Reactions (Selected) NKA, Allergies (1) ActiveReaction NKANone Documented Current medications: (Selected) Documented Medications Documented Albuterol (Eqv-Proventil HFA) 90 mcg/inh inhalation aerosol: 0 Refill(s) Coumadin 2 mg oral tablet: 2 mg, 1 tab(s), Oral, Daily, 0 Refill(s) Flomax 0.4 mg oral capsule: 0.4 mg, 1 cap(s), Oral, qDayPC, 0 Refill(s) Lipitor 20 mg oral tablet: 20 mg, 1 tab(s), Oral, Daily, 0 Refill(s) [place] 325- 5 mg oral tablet: 1 tab(s), Oral, q6h, PRN: as needed for pain, 0 Refill(s) Synthroid: 88 mcg, Oral, qDay, 0 Refill(s) Wellbutrin SR 150 mg/12 hours oral tablet, extended release: 150 mg, 1 tab(s), Oral, BID, 0 Refill(s) aspirin 81 mg oral delayed release tablet: 81 mg, 1 tab(s), Oral, Daily, 0 Refill(s) ferrous fumarate 325 mg (106 mg elemental iron) oral tablet: 325 mg, 1 tab(s), Oral, Daily, 30 tab(s), 0 Refill(s) spironolactone 25 mg oral tablet: 0 Refill(s) tiZANidine 2 mg oral tablet: 4 mg, 2 tab(s), Oral, q8h, 0 Refill(s) traZODone 100 mg oral tablet: See Instructions, 2 tabs qHS, 0 Refill(s), No qualifying data available Problem list: Medical Cardiac pacemaker in situ / SNOMED CT 9703024529 / Confirmed Hypertension / SNOMED CT 7902310393 / Confirmed, Active Problems (2) Cardiac pacemaker in situ Hypertension Histories Past Medical History: No active or resolved past medical history items have been selected or recorded. Family History: Heart disease Father Procedure history: Repair of umbilical hernia ([id number]). Amputation of toe and metatarsal ([id number]). Bone reconstruction ([id number]). Comments: 08/26/2017 11:31 CHAZ Perry right heel Wires ([id number]). Comments: 08/26/2017 11:32 CHAZ Perry bilateral jaw wires Rotator cuff repair ([id number]). Social History Social & Psychosocial Habits Alcohol 08/26/2017Risk Assessment: Low Risk Substance Abuse 08/26/2017Risk Assessment: No Risk . Physical Examination No qualifying data available General: Alert and oriented. Airway: Normal temporomandibular joint mobility. Mallampati classification: II (soft palate, fauces, uvula visible). Dentition Evaluation: Missing teeth, Chipped teeth. Respiratory: Lungs are clear to auscultation, Respirations are non-labored. Cardiovascular: Normal rate, Regular rhythm. Neurologic: Alert, Oriented. Review / Management Results review: No qualifying data available . Assessment and Plan [place] [employer] (ASA) physical status classification: Class III. Anesthetic Preoperative Plan Anesthetic technique: MAC. Postoperative pain management: Per surgeon. Risks discussed: nausea, vomiting, sore throat, dental injury, hypotension, allergic reaction, serious complications. Informed consent: signed by patient. Digitally Signed by ISATU KAPLAN on 08/24/2023 07:41 AM [facility]03-21-2024 History of Present illness Narrative * KIARA Sanchez CNP - 08/06/2023 9:00 AM EDT Images from the original note were not included. [facility] [address] [facility] [id number] Dept: [phone] Dept Visit type: Established : 1955 Reason for Visit: Hospital Follow-up (S/p vascular plug bioprosthetic perivalvular MR, hospital follow up) Assessment and Plan 1. S/P mitral valve repair - [facility] Cardiac/Pulmonary Rehab - Doing well post procedure, symptomatically improved. Continue warfarin (primary indication is PAF). Check echo in one month 2. Severe mitral regurgitation - ECG 12 lead - CLINIC PERFORMED - [facility] Cardiac/Pulmonary Rehab - MR 4+ to 1 + post valvular plug 3. CKD (chronic kidney disease) stage 2, GFR 60-89 ml/min. Has remained stable. Will repeat BMP in one month 4. Chronic diastolic heart failure (HCC). Compensated. Has questions about de escalating HF therapies. Will continue current regimen for now. If he feels lightheaded, dizzy, or continues to drop weight, he can reduce his Lasix back to prn. He will have heart failure follow up with Dr. Hobbs in 3-4months. Follow up in about 4 weeks (around 09/03/2023). Subjective Mr Walls is a 68 yr old male known to Dr. Royal and Dr. Hobbs who was recently seen in Valve Clinic for 4 + perivalvular mitral regurgitation. 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 Pt underwent a GALO on 05/29/23 which demonstrated severe (4+) paravalvular mitral valve regurgitation originating from mid posterior with an eccentrically directed jet. He underwent perivalvular leak plug of his bioprosthetic mitral valve on 07/30/2023. MRwas reduced to 1+ and he was discharged on POD 1. He is here today for one week follow up. He feelsdramatically improved with less dyspnea and more energy. He denies any chest pain, palpitations, bleeding. His groin is healing. His weight has been stable and he reports increased appetite. Review of Systems Constitutional: Negative for activity change, chills, diaphoresis, fatigue and fever. HENT: Negative for nosebleeds and trouble swallowing. Eyes: Negative for discharge and visual disturbance. Respiratory: Negative for apnea, cough, chest tightness, shortness of breath and wheezing. Cardiovascular: Negative for chest pain, palpitations and leg swelling. Gastrointestinal: Negative for abdominal distention, abdominal pain, blood in stool, diarrhea, nausea and vomiting. Endocrine: Negative for cold intolerance and heat intolerance. Genitourinary: Negative for hematuria. Musculoskeletal: Negative for gait problem and myalgias. Skin: Negative for color change and rash. Neurological: Negative for dizziness, seizures, syncope, facial asymmetry, speech difficulty, weakness, light-headedness, numbness and headaches. Hematological: Does not bruise/bleed easily. Psychiatric/Behavioral: Negative for dysphoric mood. No Known Allergies Outpatient Medications Prior to Visit Medication Sig Dispense Refill albuterol 108 (90 Base) MCG/ACT inhaler TAKE 2 PUFFS INHALED 6 TIMES PER DAY FOR 30 DAYS NEEDED WHEEZING/SHORTNESS OF BREATH. aspirin 81 MG EC tablet Take 1 tablet (81 mg) by mouth daily. Take aspirin until INR above 2.0 30 tablet 11 atorvastatin (Lipitor) 20 MG tablet Take 20 mg by mouth in the morning. buPROPion SR (Wellbutrin SR) 150 MG 12 hr tablet Take 150 mg by mouth 2 times daily. empagliflozin (Jardiance) 10 MG Take 1 tablet (10 mg) by mouth daily. 90 tablet 3 furosemide (Lasix) 40 MG tablet Take 1 tablet (40 mg) by mouth daily. 90 tablet 0 HYDROcodone-acetaminophen ([place]) 5-325 MG tablet TAKE 1 TABLET BY MOUTH FOUR TIMES DAILY FOR 28 DAYS levothyroxine (Synthroid, Levoxyl) 100 MCG tablet Take 100 mcg by mouth every morning (before breakfast). metoprolol succinate XL (Toprol-XL) 50 MG 24 hr tablet Take 50 mg by mouth daily. spironolactone (Aldactone) 25 MG tablet Take 1 tablet (25 mg) by mouth daily. 90 tablet 3 tamsulosin (Flomax) 0.4 MG 24 hr capsule Take 0.4 mg by mouth in the morning and 0.4 mg in the evening. tiZANidine (Zanaflex) 4 MG tablet TAKE 1 TABLET ORAL TWICE A DAY FOR 30 DAYS traZODone (Desyrel) 100 MG tablet TAKE 3 TABLETS BY MOUTH EVERYDAY AT BEDTIME warfarin (Coumadin) 2.5 MG tablet 2.5 MG ORALLY DAILY FOR BLOOD THINNER No facility-administered medications prior to visit. Past Medical History: Diagnosis Date Anemia Arthritis Bone infection (HCC) spine CAD (coronary artery disease) Chronic back pain Chronic kidney disease 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) 04/30/2023 COPD (chronic obstructive pulmonary disease) ([facility]) Depression DVT (deep venous thrombosis) ([facility]) Endocarditis History of blood transfusion Hyperlipidemia Hypertension 01/13/2011 Hyperthyroidism Pacemaker Paroxysmal A-fib ([facility]/HCC) ([facility]) Pneumonia Social History Tobacco Use Smoking status: Every Day Packs/day: .5 Types: Cigarettes Start date: 04/30/1975 Passive exposure: Never Smokeless tobacco: Former Quit date: 04/30/2015 Substance Use Topics Alcohol use: Yes Past Surgical History: Procedure Laterality Date CARDIAC CATHETERIZATION N/A 05/25/2023 Performed by Lance Hobbs MD at [facility] Cardiac Cath/EP Lab CARDIAC VALVE REPLACEMENT 2011 MVR/[facility] HARDWARE REMOVAL Right 05/02/2016 SCREW IN RIGHT 4TH TOE INSERT / REPLACE / REMOVE PACEMAKER 10/10/2014 MITRAL VALVE REPLACEMENT 07/27/2014 bioprosthetic valve TRICUSPID VALVE SURGERY 07/27/2014 Repair Family History Problem Relation Name Age of Onset Atrial fibrillation Mother Other (15679) Mother pacemaker Heart disease Father Objective Vitals: 08/06/23 0912 BP: 112/68 BP Location: Left arm Patient Position: Sitting BP Cuff Size: Adult Pulse: 70 SpO2: 97% Weight: 145 lb 6.4 oz (66 kg) Height: 5' 10 (1.778 m) Physical Exam Constitutional: Appearance: Normal appearance. HENT: Head: Normocephalic and atraumatic. Nose: Nose normal. Eyes: Conjunctiva/sclera: Conjunctivae normal. Pupils: Pupils are equal, round, and reactive to light. Cardiovascular: Rate and Rhythm: Normal rate and regular rhythm. Pulmonary: Effort: Pulmonary effort is normal. Comments: Diminished with some basilar crackles posteriorly Abdominal: General: Bowel sounds are normal. Palpations: Abdomen is soft. Musculoskeletal: General: Normal range of motion. Cervical back: Normal range of motion and neck supple. Skin: General: Skin is warm and dry. Comments: Groin is soft without bleeding or hematoma Neurological: General: No focal deficit present. Mental Status: He is alert and oriented to person, place, and time. Psychiatric: Mood and Affect: Mood normal. Thought Content: Thought content normal. Data Reviewed and Summarized EF BP Date Value Ref Range Status 07/29/2023 44 (A) 55 - 100 % Final Review of tests/labs done/ordered within my specialty: EKG in office: ? Atrial rhythm Review of tests/labs done/ordered outside my specialty: Independent interpretation of tests: KIARA Sanchez CNP documented in this [facility]03-20-2024 Telephone encounter Note* Telephone Encounter - Gaby Soni - 08/05/2023 2:45 PM EDT Need an order for 1 month echo-s/p MVR on 07/29/23 [id number] Miscellaneous Notes* Telephone Encounter - Gaby Soni - 08/05/2023 2:45 PM EDT Need an order for 1 month echo-s/p MVR on 07/29/23 documented in this [facility]03-14-2024 NoteDischarge Summary Clarification: Chronic Heart Failure with preserved [facility]03-14-2024 Note [facility]03-14-2024 Consult note* Lois Strauss - 07/30/2023 9:36 AM EDTAssociated Order(s): IP CONSULT TO CARDIAC REHAB Received referral and reviewed chart. Phase II Cardiac Rehab Referral discussed with Brianne Walls. Patient prefers cardiac rehab at [facility]. Given information on cardiac rehab atpreferred location. [id number] Consult note* Lois Strauss - 07/30/2023 9:36 AM EDT Associated Order(s): IP CONSULT TO CARDIAC REHAB Received referral and reviewed chart. Phase II Cardiac Rehab Referral discussed with Brianne Walls. Patient prefers cardiac rehab at [facility]. Given information on cardiac rehab atpreferred location. documented in this [facility]03-14-2024 Hospital Discharge instructions* Discharge Instructions* KIARA Sanchez CNP - 07/30/2023 9:30 AM EDT - INR Check with PCP on Thursday. Remain on aspirin until INR above 2.0 Please call the Heart Valve Clinic with any questions: [phone] -You will have have the following follow up appointments in the Heart Valve Clinic: one week post procedure, one month post procedure with echocardiogram, one year post procedure with echocardiogram. -Wash groin/wrist incision with soap and water, pat dry. Apply bandage for 5 days. If you have a chest incision, you will receive specific instructions from your surgeon regarding care of the incision. -Check incision every day. If you see any changes in the way it looks, call the Heart Valve Clinic at . Look for any of these problems: redness and warmth that does not go away, yellow or green drainage from the wound, fever and chills, numbness in your legs, pain that is getting worse. -It is normal to have a bruise or soft lump in the groin. This will get smaller and go away with time -Do not drive until after your first Heart Valve Clinic Appointment. -Do not lift, push, or pull anything weighing more than 5 lbs or more for one week if you had the procedure through your groin and 4 weeks if you had the procedure through the chest -We strongly encourage a regular exercise program such as cardiac rehabilitation once you have beencleared to resume normal activity. -Eating well is important for your recovery. Eat nutritious foods every day. Please follow a cardiac, 2 gram sodium diet. Please continue to follow any other dietary recommendations provided by your health care provider prior to your valve surgery. -From now on, tell your doctors and health care providers about your heart valve implantation (prosthetic heart valve ). -If you go to the emergency room or are admitted to the hospital during the first year after your procedure, please call the Heart Valve Clinic at -If you have major dental work or other invasive medical procedures (like surgery) you may need to take antibiotics before the dental work or the procedure. Please discuss with your health care provider. - You will need to take blood thinning medications (antiplatelet) after your valve procedure. Generally, this includes aspirin alone, unless you take blood thinning medications for another indication(warfarin, apixaban, rivaroxaban). If you take blood thinning medications, these are generally sufficient and aspirin will not be required unless otherwise specified. documented in this [facility]03-13-2024 Plan of care note* Care Plan - Nima Hong RN - 07/29/2023 2:26 PM EDT Problem: Knowledge Deficit Goal: Patient/family/caregiver demonstrates understanding of disease process, treatment plan, medications, and discharge instructions Outcome: Progressing Problem: Potential for Compromised Skin Integrity Goal: Skin Integrity is Maintained or Improved Outcome: Progressing Problem: Potential for Compromised Skin Integrity Goal: Nutritional status is improving Outcome: Progressing Problem: Urinary Incontinence Goal: Perineal skin integrity is maintained or improved Outcome: Progressing Problem: Pain - Adult Goal: Verbalizes/displays adequate comfort level or baseline comfort level Outcome: Progressing Problem: Safety - Adult Goal: Free from fall injury Outcome: Progressing Problem: Discharge Planning Goal: Discharge to home or other facility with appropriate resources Outcome: Progressing Problem: Chronic Conditions and Co-morbidities Goal: Patient's chronic conditions and co-morbidity symptoms are monitored and maintained or improved Outcome: Progressing Problem: Problem Interventions Goal: Assess Nutritional Intake Outcome: Progressing Problem: Problem Interventions Goal: Dietary Supplements Outcome: Progressing Problem: Problem Interventions Goal: Promote nutritional intake Outcome: Progressing Problem: Problem Interventions Goal: Nutrition Support Outcome: Progressing Problem: Hemodynamic Status Goal: Patient's vitals signs are stable Outcome: Progressing Problem: Excessive Fluid Volume Goal: Fluid and electrolyte balance are achieved/maintained Outcome: Progressing Problem: Inadequate Gas Exchange Goal: Nutritional status is improving Outcome: Progressing Problem: Inadequate Gas Exchange Goal: Patient is adequately oxygenated and ventilation is improved Outcome: Progressing [id number] Miscellaneous Notes* Care Plan - Nima Hong RN - 07/29/2023 2:26 PM EDT Problem: Knowledge Deficit Goal: Patient/family/caregiver demonstrates understanding of disease process, treatment plan, medications, and discharge instructions Outcome: Progressing Problem: Potential for Compromised Skin Integrity Goal: Skin Integrity is Maintained or Improved Outcome: Progressing Problem: Potential for Compromised Skin Integrity Goal: Nutritional status is improving Outcome: Progressing Problem: Urinary Incontinence Goal: Perineal skin integrity is maintained or improved Outcome: Progressing Problem: Pain - Adult Goal: Verbalizes/displays adequate comfort level or baseline comfort level Outcome: Progressing Problem: Safety - Adult Goal: Free from fall injury Outcome: Progressing Problem: Discharge Planning Goal: Discharge to home or other facility with appropriate resources Outcome: Progressing Problem: Chronic Conditions and Co-morbidities Goal: Patient's chronic conditions and co-morbidity symptoms are monitored and maintained or improved Outcome: Progressing Problem: Problem Interventions Goal: Assess Nutritional Intake Outcome: Progressing Problem: Problem Interventions Goal: Dietary Supplements Outcome: Progressing Problem: Problem Interventions Goal: Promote nutritional intake Outcome: Progressing Problem: Problem Interventions Goal: Nutrition Support Outcome: Progressing Problem: Hemodynamic Status Goal: Patient's vitals signs are stable Outcome: Progressing Problem: Excessive Fluid Volume Goal: Fluid and electrolyte balance are achieved/maintained Outcome: Progressing Problem: Inadequate Gas Exchange Goal: Nutritional status is improving Outcome: Progressing Problem: Inadequate Gas Exchange Goal: Patient is adequately oxygenated and ventilation is improved Outcome: Progressing * Op Note - Ericka Nicholas MD - 07/29/2023 7:34 AM EDT Perivalvlular Leak Plug of a Surgical Mitral Valve Procedure: 1. Perivalvlular Leak Plug of a Surgical Mitral Valve 2. Right Heart Cath 3. Transesophageal Echocardiogram Preoperative Diagnosis: Severe Mitral Regurgitation with Heart Failure, from a bioprosthetic perivalvular leak Postoperative Diagnosis: Same Anesthesia: General Anesthesia Procedural Physicians: Ericka Nicholas MD, Jesús Lees MD. Structural Architectural Project Manager: Hemal Henry MD History of Present Illness: This is a very pleasant 68 y.o. male with a history of severe and symptomatic mitral regurgitation from a perivalvular leak of a bioprothetic mitral valve. The pros, cons,risks, benefits, and alternatives of transcatheter mitral clip were reviewed with the patient, and questions were answered, he provided informed consent and wished to proceed with the procedure. Description of Procedure: Patient was taken to the operative suite by anesthesia and was placed under general anesthesia. A pre-procedure GALO was performed confirming severe perivalvular MR, and to help size defect. The patient was cleaned, prepped, and draped in the normal sterile manner for elective heart cath. Access was gained in the right femoral vein. Via the right femoral vein a 6F sheath was placed, then two perclose devices were placed using the preclose strategy. Next, a 16F gore Dryseal sheath was placed over an extra stiff wire. The rest of the procedure was done through this dryseal access. Next, a baylis needle and an SL1 sheath were used to puncture the intraatrial septum in a mid and mid location. This was confirmed by GALO. The baylis needle was removed. An 0.32 wire placed into the left upper pulmonary vein and the SL1 catheter was removed. A Sureflex sheath was then advanced into the left atrium. The Sureflex was flexed towards the defect in the mitral valve annulus and the defect was crossed with an angled glide wire. A 7F MP1 guide was advanced over the wire, across the defect and the wire was exchanged for a standard 0.035 Jwire. A 0.018 wire was introduced through the sureflex, alongside the 7F guide, and used to cross the defect to assure double wire access. A 6F RtoP destination sheath was introduced over the 0.[address] of the 7F guide to allow for easier passage of the vascular plug. The 6F sheath was advanced with pressure confirmation that it was in the left ventricle, wire was removed, and a 14mm AP2 vascular plug was loaded and advanced across the defect. Despite multiple attempts to deploy within the defect, the 14mm plug appeared to stay too elongated, suggesting this was too big. This was removed and a 12mm AP2 plug was attempted. After multiple adjustments, an optimal position was found. Plug appeared stable, and MR had reduced from heavy 4+ to 2+ (mostly through the device). This was felt to be optimal, and the device was released, remained stable with MR nicely improved. All equipment was removed for final assessment and percloses were used for hemostasis. Overall, the patient tolerated the procedure well with minimal blood loss and no immediate complications. he will return to the CCU for continued care and recovery. It was a pleasure taking care of your patient while hospitalized at [facility]. I will continue to follow along while hospitalized. Please do not hesitate to call with any questions. * Perioperative Nursing Note - Dada Hanley RN - 07/29/2023 6:34 AM EDT Notified OR control desk that patient has cardiac pacemaker documented in this encounterSMarietta Memorial [id number] [facility] 07-29-2023 [facility]03-13-2024 Note* Op Note - Ericka Nicholas MD - 07/29/2023 7:34 AM EDT Perivalvlular Leak Plug of a Surgical Mitral Valve Procedure: 1. Perivalvlular Leak Plug of a Surgical Mitral Valve 2. Right Heart Cath 3. Transesophageal Echocardiogram Preoperative Diagnosis: Severe Mitral Regurgitation with Heart Failure, from a bioprosthetic perivalvular leak Postoperative Diagnosis: Same Anesthesia: General Anesthesia Procedural Physicians: Ericka Nicholas MD, Jesús Lees MD. Structural Architectural Project Manager: Hemal Henry MD History of Present Illness: This is a very pleasant 68 y.o. male with a history of severe and symptomatic mitral regurgitation from a perivalvular leak of a bioprothetic mitral valve. The pros, cons,risks, benefits, and alternatives of transcatheter mitral clip were reviewed with the patient, and questions were answered, he provided informed consent and wished to proceed with the procedure. Description of Procedure: Patient was taken to the operative suite by anesthesia and was placed under general anesthesia. A pre-procedure GALO was performed confirming severe perivalvular MR, and to help size defect. The patient was cleaned, prepped, and draped in the normal sterile manner for elective heart cath. Access was gained in the right femoral vein. Via the right femoral vein a 6F sheath was placed, then two perclose devices were placed using the preclose strategy. Next, a 16F gore Dryseal sheath was placed over an extra stiff wire. The rest of the procedure was done through this dryseal access. Next, a baylis needle and an SL1 sheath were used to puncture the intraatrial septum in a mid and mid location. This was confirmed by GALO. The baylis needle was removed. An 0.32 wire placed into the left upper pulmonary vein and the SL1 catheter was removed. A Sureflex sheath was then advanced into the left atrium. The Sureflex was flexed towards the defect in the mitral valve annulus and the defect was crossed with an angled glide wire. A 7F MP1 guide was advanced over the wire, across the defect and the wire was exchanged for a standard 0.035 Jwire. A 0.018 wire was introduced through the sureflex, alongside the 7F guide, and used to cross the defect to assure double wire access. A 6F RtoP destination sheath was introduced over the 0.[address] of the 7F guide to allow for easier passage of the vascular plug. The 6F sheath was advanced with pressure confirmation that it was in the left ventricle, wire was removed, and a 14mm AP2 vascular plug was loaded and advanced across the defect. Despite multiple attempts to deploy within the defect, the 14mm plug appeared to stay too elongated, suggesting this was too big. This was removed and a 12mm AP2 plug was attempted. After multiple adjustments, an optimal position was found. Plug appeared stable, and MR had reduced from heavy 4+ to 2+ (mostly through the device). This was felt to be optimal, and the device was released, remained stable with MR nicely improved. All equipment was removed for final assessment and percloses were used for hemostasis. Overall, the patient tolerated the procedure well with minimal blood loss and no immediate complications. he will return to the CCU for continued care and recovery. It was a pleasure taking care of your patient while hospitalized at [facility]. I will continue to follow along while hospitalized. Please do not hesitate to call with any questions. [employer] Phone: [phone]) [phone] Note* Op Note - Ericka Nicholas MD - 07/29/2023 7:34 AM EDT Perivalvlular Leak Plug of a Surgical Mitral Valve Procedure: 1. Perivalvlular Leak Plug of a Surgical Mitral Valve 2. Right Heart Cath 3. Transesophageal Echocardiogram Preoperative Diagnosis: Severe Mitral Regurgitation with Heart Failure, from a bioprosthetic perivalvular leak Postoperative Diagnosis: Same Anesthesia: General Anesthesia Procedural Physicians: Ericka Nicholas MD, Jesús Lees MD. Structural Architectural Project Manager: Hemal Henry MD History of Present Illness: This is a very pleasant 68 y.o. male with a history of severe and symptomatic mitral regurgitation from a perivalvular leak of a bioprothetic mitral valve. The pros, cons,risks, benefits, and alternatives of transcatheter mitral clip were reviewed with the patient, and questions were answered, he provided informed consent and wished to proceed with the procedure. Description of Procedure: Patient was taken to the operative suite by anesthesia and was placed under general anesthesia. A pre-procedure GALO was performed confirming severe perivalvular MR, and to help size defect. The patient was cleaned, prepped, and draped in the normal sterile manner for elective heart cath. Access was gained in the right femoral vein. Via the right femoral vein a 6F sheath was placed, then two perclose devices were placed using the preclose strategy. Next, a 16F gore Dryseal sheath was placed over an extra stiff wire. The rest of the procedure was done through this dryseal access. Next, a baylis needle and an SL1 sheath were used to puncture the intraatrial septum in a mid and mid location. This was confirmed by GALO. The baylis needle was removed. An 0.32 wire placed into the left upper pulmonary vein and the SL1 catheter was removed. A Sureflex sheath was then advanced into the left atrium. The Sureflex was flexed towards the defect in the mitral valve annulus and the defect was crossed with an angled glide wire. A 7F MP1 guide was advanced over the wire, across the defect and the wire was exchanged for a standard 0.035 Jwire. A 0.018 wire was introduced through the sureflex, alongside the 7F guide, and used to cross the defect to assure double wire access. A 6F RtoP destination sheath was introduced over the 0.[address] of the 7F guide to allow for easier passage of the vascular plug. The 6F sheath was advanced with pressure confirmation that it was in the left ventricle, wire was removed, and a 14mm AP2 vascular plug was loaded and advanced across the defect. Despite multiple attempts to deploy within the defect, the 14mm plug appeared to stay too elongated, suggesting this was too big. This was removed and a 12mm AP2 plug was attempted. After multiple adjustments, an optimal position was found. Plug appeared stable, and MR had reduced from heavy 4+ to 2+ (mostly through the device). This was felt to be optimal, and the device was released, remained stable with MR nicely improved. All equipment was removed for final assessment and percloses were used for hemostasis. Overall, the patient tolerated the procedure well with minimal blood loss and no immediate complications. he will return to the CCU for continued care and recovery. It was a pleasure taking care of your patient while hospitalized at [facility]. I will continue to follow along while hospitalized. Please do not hesitate to call with any questions. [facility] [employer] Work Phone: [phone]) [phone] Note* Perioperative Nursing Note - Dada Hanley RN - 07/29/2023 6:34 AM EDT Notified OR control desk that patient has cardiac pacemaker [place] [id number] Note* Perioperative Nursing Note - Dada Hanley RN - 07/29/2023 6:34 AM EDT Notified OR control desk that patient has cardiac pacemaker [id number] NotePre procedure phone call placed, asked pt to return call to confirm meds for procedure on Thu.[facility]03-11-2024 [facility] 07-16-2023 History of Present illness Narrative* Selena Leonardo, KIARA - HEALTH INFORMATION MANAGERS - 07/16/2023 8:00 AM EST Images from the original note were not included. [facility] [address] [facility] [address] Dept: [phone] Dept Visit type: Established : 1955 Reason for Visit: No chief complaint on file. Assessment and Plan 1. Mitral valve insufficiency, unspecified etiology. Patient has perivalvular MR. Plan to proceed with a valvular plug. CT obtained. Patient understands procedure and agrees to proceed. Pre op labs today, questions answered. Intra op GALO arranged 2. S/P mitral valve replacement - ECG 12 lead - CLINIC PERFORMED He has had two mitral valve replacement. The second valve replacement was secondary to endocarditis, he had a complex post op course and was not felt to be a candidate for re-do. He no longer uses IVdrugs 3. Acute on chronic diastolic heart failure (HCC) Medications optimized. Followed by Dr. Hobbs. Treatment is MR reduction and hopefully reduction inPAH 4. CKD, stage 2. Renal function at baseline. Will continue to follow No follow-ups on file. Subjective Mr Walls is a 68 yr old male known to Dr. Royal and Dr. Hobbs who was recently seen in Valve Clinic for 4 + perivalvular mitral regurgitation. 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 Pt underwent a GALO on 05/29/23 which demonstrated severe (4+) paravalvular mitral valve regurgitation originating from mid posterior with an eccentrically directed jet . Cardiac cath shows He reports dyspnea with exertion and chest pain with exertion. He is here today to discuss perivalvular plug of the mitral valve. Right cath from 05/25/2023 showed PA pressures 88/27, PCWP 22, RA 14 Review of Systems Constitutional: Positive for fatigue. Negative for activity change, chills, diaphoresis and fever. HENT: Negative for nosebleeds and trouble swallowing. Eyes: Negative for discharge and visual disturbance. Respiratory: Positive for shortness of breath. Negative for apnea, cough, chest tightness and wheezing. Cardiovascular: Negative for chest pain, palpitations and leg swelling. Gastrointestinal: Negative for abdominal distention, abdominal pain, blood in stool, diarrhea, nausea and vomiting. Endocrine: Negative for cold intolerance and heat intolerance. Genitourinary: Negative for hematuria. Musculoskeletal: Negative for gait problem and myalgias. Skin: Negative for color change and rash. Neurological: Negative for dizziness, seizures, syncope, facial asymmetry, speech difficulty, weakness, light-headedness, numbness and headaches. Hematological: Does not bruise/bleed easily. Psychiatric/Behavioral: Negative for dysphoric mood. No Known Allergies Outpatient Medications Prior to Visit Medication Sig Dispense Refill albuterol 108 (90 Base) MCG/ACT inhaler TAKE 2 PUFFS INHALED 6 TIMES PER DAY FOR 30 DAYS NEEDED WHEEZING/SHORTNESS OF BREATH. atorvastatin (Lipitor) 20 MG tablet Take 20 mg by mouth in the morning. buPROPion SR (Wellbutrin SR) 150 MG 12 hr tablet Take 150 mg by mouth daily. empagliflozin (Jardiance) 10 MG Take 1 tablet (10 mg) by mouth daily. 90 tablet 3 furosemide (Lasix) 40 MG tablet Take 1 tablet (40 mg) by mouth daily. 90 tablet 0 HYDROcodone-acetaminophen ([place]) 5-325 MG tablet TAKE 1 TABLET BY MOUTH FOUR TIMES DAILY FOR 28 DAYS levothyroxine (Synthroid, Levoxyl) 100 MCG tablet Take 100 mcg by mouth every morning (before breakfast). metoprolol succinate XL (Toprol-XL) 50 MG 24 hr tablet Take 50 mg by mouth daily. spironolactone (Aldactone) 25 MG tablet Take 1 tablet (25 mg) by mouth daily. 90 tablet 3 tamsulosin (Flomax) 0.4 MG 24 hr capsule Take 0.4 mg by mouth in the morning and 0.4 mg in the evening. tiZANidine (Zanaflex) 4 MG tablet TAKE 1 TABLET ORAL TWICE A DAY FOR 30 DAYS traZODone (Desyrel) 100 MG tablet TAKE 3 TABLETS BY MOUTH EVERYDAY AT BEDTIME warfarin (Coumadin) 2.5 MG tablet 2.5 MG ORALLY DAILY FOR BLOOD THINNER citalopram (CeleXA) 20 MG tablet Take 20 mg by mouth daily. gabapentin (Neurontin) 300 MG capsule Take 300 mg by mouth in the morning and 300 mg at noon and 300 mg in the evening. warfarin (Coumadin) 3 MG tablet Take 3 mg by mouth in the morning. No facility-administered medications prior to visit. Past Medical History: Diagnosis Date Anemia Arthritis Bone infection (HCC) spine CAD (coronary artery disease) Chronic back pain Chronic kidney disease 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) 04/30/2023 COPD (chronic obstructive pulmonary disease) ([facility]) Depression DVT (deep venous thrombosis) ([facility]) Endocarditis History of blood transfusion Hyperlipidemia Hypertension 01/13/2011 Hyperthyroidism Pacemaker Paroxysmal A-fib (CMS/HCC) ([facility]) Pneumonia Social History Tobacco Use Smoking status: Every Day Packs/day: .5 Types: Cigarettes Start date: 04/30/1975 Passive exposure: Never Smokeless tobacco: Former Quit date: 04/30/2015 Substance Use Topics Alcohol use: Yes Past Surgical History: Procedure Laterality Date CARDIAC CATHETERIZATION N/A 05/25/2023 Performed by Lance Hobbs MD at [facility] Cardiac Cath/EP Lab CARDIAC VALVE REPLACEMENT 2010 MVR/[facility] HARDWARE REMOVAL Right 05/02/2016 SCREW IN RIGHT 4TH TOE INSERT / REPLACE / REMOVE PACEMAKER 10/10/2014 MITRAL VALVE REPLACEMENT 07/27/2014 bioprosthetic valve TRICUSPID VALVE SURGERY 07/27/2014 Repair Family History Problem Relation Name Age of Onset Atrial fibrillation Mother Other (44835) Mother pacemaker Heart disease Father Objective Vitals: 07/16/23 0819 BP: 90/64 BP Location: Right arm Patient Position: Sitting BP Cuff Size: Adult Pulse: 70 SpO2: 95% Weight: 147 lb 3.2 oz (66.8 kg) Height: 5' 10 (1.778 m) Physical Exam Constitutional: Appearance: Normal appearance. HENT: Head: Normocephalic and atraumatic. Nose: Nose normal. Eyes: Conjunctiva/sclera: Conjunctivae normal. Pupils: Pupils are equal, round, and reactive to light. Cardiovascular: Rate and Rhythm: Normal rate and regular rhythm. Heart sounds: Murmur heard. Pulmonary: Effort: Pulmonary effort is normal. Breath sounds: Normal breath sounds. Abdominal: General: Bowel sounds are normal. Palpations: Abdomen is soft. Musculoskeletal: General: Normal range of motion. Cervical back: Normal range of motion and neck supple. Skin: General: Skin is warm and dry. Neurological: General: No focal deficit present. Mental Status: He is alert and oriented to person, place, and time. Psychiatric: Mood and Affect: Mood normal. Thought Content: Thought content normal. Data Reviewed and Summarized No results found for: EFBP , PLVEF , LVEFPHYS , LVEF2D , EF Review of tests/labs done/ordered within my specialty: EKG in office: AV paced Review of tests/labs done/ordered outside my specialty: Independent interpretation of tests: KIARA Sanchez CNP documented in this [facility]02-29-2024 History of Present illness Narrative* Selena Leonardo, POULTRY HATCHERY SUPERVISOR - HEALTH INFORMATION MANAGERS - 07/16/2023 8:00 AM EST Images from the original note were not included. [facility] [address] [facility] [address] Dept: [phone] Dept Visit type: Established : 1955 Reason for Visit: No chief complaint on file. Assessment and Plan 1. Mitral valve insufficiency, unspecified etiology. Patient has perivalvular MR. Plan to proceed with a valvular plug. CT obtained. Patient understands procedure and agrees to proceed. Pre op labs today, questions answered. Intra op GALO arranged 2. S/P mitral valve replacement - ECG 12 lead - CLINIC PERFORMED He has had two mitral valve replacement. The second valve replacement was secondary to endocarditis, he had a complex post op course and was not felt to be a candidate for re-do. He no longer uses IVdrugs 3. Acute on chronic diastolic heart failure (HCC) Medications optimized. Followed by Dr. Hobbs. Treatment is MR reduction and hopefully reduction inPAH 4. CKD, stage 2. Renal function at baseline. Will continue to follow No follow-ups on file. Subjective Mr Walls is a 68 yr old male known to Dr. Royal and Dr. Hobbs who was recently seen in Valve Clinic for 4 + perivalvular mitral regurgitation. 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 Pt underwent a GALO on 05/29/23 which demonstrated severe (4+) paravalvular mitral valve regurgitation originating from mid posterior with an eccentrically directed jet . Cardiac cath shows He reports dyspnea with exertion and chest pain with exertion. He is here today to discuss perivalvular plug of the mitral valve. Right cath from 05/25/2023 showed PA pressures 88/27, PCWP 22, RA 14 Review of Systems Constitutional: Positive for fatigue. Negative for activity change, chills, diaphoresis and fever. HENT: Negative for nosebleeds and trouble swallowing. Eyes: Negative for discharge and visual disturbance. Respiratory: Positive for shortness of breath. Negative for apnea, cough, chest tightness and wheezing. Cardiovascular: Negative for chest pain, palpitations and leg swelling. Gastrointestinal: Negative for abdominal distention, abdominal pain, blood in stool, diarrhea, nausea and vomiting. Endocrine: Negative for cold intolerance and heat intolerance. Genitourinary: Negative for hematuria. Musculoskeletal: Negative for gait problem and myalgias. Skin: Negative for color change and rash. Neurological: Negative for dizziness, seizures, syncope, facial asymmetry, speech difficulty, weakness, light-headedness, numbness and headaches. Hematological: Does not bruise/bleed easily. Psychiatric/Behavioral: Negative for dysphoric mood. No Known Allergies Outpatient Medications Prior to Visit Medication Sig Dispense Refill albuterol 108 (90 Base) MCG/ACT inhaler TAKE 2 PUFFS INHALED 6 TIMES PER DAY FOR 30 DAYS NEEDED WHEEZING/SHORTNESS OF BREATH. atorvastatin (Lipitor) 20 MG tablet Take 20 mg by mouth in the morning. buPROPion SR (Wellbutrin SR) 150 MG 12 hr tablet Take 150 mg by mouth daily. empagliflozin (Jardiance) 10 MG Take 1 tablet (10 mg) by mouth daily. 90 tablet 3 furosemide (Lasix) 40 MG tablet Take 1 tablet (40 mg) by mouth daily. 90 tablet 0 HYDROcodone-acetaminophen ([place]) 5-325 MG tablet TAKE 1 TABLET BY MOUTH FOUR TIMES DAILY FOR 28 DAYS levothyroxine (Synthroid, Levoxyl) 100 MCG tablet Take 100 mcg by mouth every morning (before breakfast). metoprolol succinate XL (Toprol-XL) 50 MG 24 hr tablet Take 50 mg by mouth daily. spironolactone (Aldactone) 25 MG tablet Take 1 tablet (25 mg) by mouth daily. 90 tablet 3 tamsulosin (Flomax) 0.4 MG 24 hr capsule Take 0.4 mg by mouth in the morning and 0.4 mg in the evening. tiZANidine (Zanaflex) 4 MG tablet TAKE 1 TABLET ORAL TWICE A DAY FOR 30 DAYS traZODone (Desyrel) 100 MG tablet TAKE 3 TABLETS BY MOUTH EVERYDAY AT BEDTIME warfarin (Coumadin) 2.5 MG tablet 2.5 MG ORALLY DAILY FOR BLOOD THINNER citalopram (CeleXA) 20 MG tablet Take 20 mg by mouth daily. gabapentin (Neurontin) 300 MG capsule Take 300 mg by mouth in the morning and 300 mg at noon and 300 mg in the evening. warfarin (Coumadin) 3 MG tablet Take 3 mg by mouth in the morning. No facility-administered medications prior to visit. Past Medical History: Diagnosis Date Anemia Arthritis Bone infection (HCC) spine CAD (coronary artery disease) Chronic back pain Chronic kidney disease 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 ([facility]) 04/30/2023 COPD (chronic obstructive pulmonary disease) ([facility]) Depression DVT (deep venous thrombosis) ([facility]) Endocarditis History of blood transfusion Hyperlipidemia Hypertension 01/13/2011 Hyperthyroidism Pacemaker Paroxysmal A-fib (CMS/HCC) ([facility]) Pneumonia Social History Tobacco Use Smoking status: Every Day Packs/day: .5 Types: Cigarettes Start date: 04/30/1975 Passive exposure: Never Smokeless tobacco: Former Quit date: 04/30/2015 Substance Use Topics Alcohol use: Yes Past Surgical History: Procedure Laterality Date CARDIAC CATHETERIZATION N/A 05/25/2023 Performed by Lance Hobbs MD at [facility] Cardiac Cath/EP Lab CARDIAC VALVE REPLACEMENT 2010 MVR/[facility] HARDWARE REMOVAL Right 05/02/2016 SCREW IN RIGHT 4TH TOE INSERT / REPLACE / REMOVE PACEMAKER 10/10/2014 MITRAL VALVE REPLACEMENT 07/27/2014 bioprosthetic valve TRICUSPID VALVE SURGERY 07/27/2014 Repair Family History Problem Relation Name Age of Onset Atrial fibrillation Mother Other (14827) Mother pacemaker Heart disease Father Objective Vitals: 07/16/23 0819 BP: 90/64 BP Location: Right arm Patient Position: Sitting BP Cuff Size: Adult Pulse: 70 SpO2: 95% Weight: 147 lb 3.2 oz (66.8 kg) Height: 5' 10 (1.778 m) Physical Exam Constitutional: Appearance: Normal appearance. HENT: Head: Normocephalic and atraumatic. Nose: Nose normal. Eyes: Conjunctiva/sclera: Conjunctivae normal. Pupils: Pupils are equal, round, and reactive to light. Cardiovascular: Rate and Rhythm: Normal rate and regular rhythm. Heart sounds: Murmur heard. Pulmonary: Effort: Pulmonary effort is normal. Breath sounds: Normal breath sounds. Abdominal: General: Bowel sounds are normal. Palpations: Abdomen is soft. Musculoskeletal: General: Normal range of motion. Cervical back: Normal range of motion and neck supple. Skin: General: Skin is warm and dry. Neurological: General: No focal deficit present. Mental Status: He is alert and oriented to person, place, and time. Psychiatric: Mood and Affect: Mood normal. Thought Content: Thought content normal. Data Reviewed and Summarized No results found for: EFBP , PLVEF , LVEFPHYS , LVEF2D , EF Review of tests/labs done/ordered within my specialty: EKG in office: AV paced Review of tests/labs done/ordered outside my specialty: Independent interpretation of tests: KIARA Sanchez CNP documented in this [facility]01-23-2024 History of Present illness Narrative* Bronson Curiel DO - 06/09/2023 1:00 PM EST Images from the original note were not included. [facility] Group: Cardiothoracic Surgery Multidisciplinary Heart Valve Clinic Date: 06/09/23 Patient:Brianne Walls 1955 68 y.o. male [id number] Subjective: HPI: Brianne Walls 68 [address] Hobbs is being evaluated for mitral valve regurgitation. Echocardiogram completed on 04/28/2024 showed severe (4+) paravalvular mitral valve regurgitation. Per note, pt with a history of heart failure with midrange ejection fraction, bioprosthetic mitral valve replacement followed by infective endocarditis now status post redo bioprosthetic mitral valvereplacement (#29 Medtronic tissue valve), TVr (#36 mm ring) in 2014 chronic kidney disease stage III, hypertension, paroxysmal atrial fibrillation, s/p PPM. Pt underwent a transthoracic echocardiogram in February 2023 that showed left ventricular ejection fraction 60%, with a mean gradient across the mitral valve 8 mmHg, with moderate to severe tricuspid regurgitation and an RVSP of 90 mmHg. Pt had complaints of shortness of breath. He underwent a heart catheterization on 05/25/23 which showed severe mixed etiology pulmonary hypertension. PVR 6 Wood Units and PCW 22 mmHg. 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 He then underwent a GALO on 05/29/23 which demonstrated severe (4+) paravalvular mitral valve regurgitation that originates mid posterior with an eccentrically directed jet that wraps around the entirity of the left atrium. Medical History Past Medical History: Diagnosis Date Anemia Arthritis Bone infection ([facility]) spine CAD (coronary artery disease) Chronic back pain Chronic kidney disease 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 ([facility]) 04/30/2023 COPD (chronic obstructive pulmonary disease) ([facility]) Depression DVT (deep venous thrombosis) ([facility]) Endocarditis History of blood transfusion Hyperlipidemia Hypertension 01/13/2011 Hyperthyroidism Pacemaker Paroxysmal A-fib (CMS/HCC) ([facility]) Pneumonia Blood thinner - Warfarin Transesophageal Echocardiogram 05/29/2023 Interpretation Summary Left Ventricle: Left ventricle size is normal. Normal wall thickness. Normal left ventricular systolic function. The EF by visual approximation is 55%. Normal wall motion. Right Ventricle: Right ventricle size is normal. Pacemaker lead present in the right ventricle. Normal systolic function. Mitral Valve: Medtronic bioprosthetic valve that is well-seated with normal leaflet motion with a size of 29 mm. MV mean gradient is 4 mmHg. Severe (4+) paravalvular regurgitation that originates midposterior with an eccentrically directed jet that wraps around the entirity of the left atrium. Systolic flow reversal in the pulmonary veins. PISA radius 1.0cm. EROA 0.4cm2. No stenosis noted. Tricuspid Valve: Tricuspid valve repaired by annuloplasty ring. Trace regurgitation. Echo Findings Left Ventricle Left ventricle size is normal. Normal wall thickness. Normal left ventricular systolic function. The EF by visual approximation is 55%. Normal wall motion. Right Ventricle Right ventricle size is normal. Pacemaker lead present in the right ventricle.Normal systolic function. Left Atrium Left atrium size is normal. Normal sized appendage. Normal appendage flow velocity. No left atrial appendage thrombus noted. No left atrial appendage mass noted. Possible attempt at priorLAA ligation based on flow acceleration. Correalte to operative reports. Normal pulmonary vein connection involving the right superior and left superior veins. Systolic flow reversal in the pulmonaryveins. Interatrial Septum No interatrial shunt visualized on color Doppler. Right Atrium Right atrium size is normal. Pacemaker lead present in the right atrium. Aortic Valve Trileaflet. No regurgitation. No stenosis. Mitral Valve Medtronic bioprosthetic valve that is well-seated with normal leaflet motion with a size of 29 mm. MV mean gradient is 4 mmHg. Severe (4+) paravalvular regurgitation that originates mid posterior with an eccentrically directed jet that wraps around the entirity of the left atrium. Systolic flow reversal in the pulmonary veins. PISA radius 1.0cm. EROA 0.4cm2. No stenosis noted. Tricuspid Valve Tricuspid valve repaired by annuloplasty ring. Trace regurgitation. Pulmonic Valve The pulmonic valve visualization is suboptimal but appears to be functioning normally. Trace regurgitation. Pulmonary Artery Pulmonary artery was not assessed. Aorta Normal sized ascending aorta. IVC/Hepatic Veins IVC was not assessed. Pericardium No pericardial effusion. Right Heart Catheterization 05/25/2023 Conclusion Severe mixed etiology pulmonary hypertension. PVR 6 Wood Units and PCW 22 mmHg. Etiology likely bioprosthetic mitral valve stenosis, LV diastolic dysfunction, hypervolemia, and perhaps some pulmonaryvascular remodeling. Borderline cardiac index. Recommendations 1. Will proceed with GALO to better assess mitral valve 2. Restart furosemide and continue spironolactone 3. Start empagliflozin 10 mg per day. 4. Consider [id number]-qv-[id number] mitral valve replacement if indicated and after discussion with valve team. Review of Systems Constitutional: Positive for activity change and fatigue. Negative for chills, diaphoresis and fever. HENT: Negative for nosebleeds and trouble swallowing. Eyes: Negative for discharge and visual disturbance. Respiratory: Positive for shortness of breath. Negative for apnea, cough, chest tightness and wheezing. Cardiovascular: Negative for chest pain, palpitations and leg swelling. Gastrointestinal: Negative for abdominal distention, abdominal pain, blood in stool, diarrhea, nausea and vomiting. Endocrine: Negative for cold intolerance and heat intolerance. Genitourinary: Negative for hematuria. Musculoskeletal: Positive for back pain and gait problem. Negative for myalgias. Skin: Negative for color change and rash. Neurological: Positive for syncope and weakness (leg weakness). Negative for dizziness, seizures, facial asymmetry, speech difficulty, light-headedness, numbness and headaches. Hematological: Bruises/bleeds easily. Psychiatric/Behavioral: Negative for dysphoric mood. Allergies: Patient has no known allergies. Past Medical History: has a past medical history of Anemia, Arthritis, Bone infection (HCC), CAD (coronary artery disease), Chronic back pain, Chronic kidney disease, 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) (04/30/2023), COPD (chronic obstructive pulmonary disease) ([facility]), Depression, DVT (deep venous thrombosis) ([facility]), Endocarditis, History of blood transfusion, Hyperlipidemia, Hypertension (01/13/2011), Hyperthyroidism, Pacemaker, Paroxysmal A-fib ([facility]) ([facility]), and Pneumonia. He has no past medical history of Asthma, Blood circulation, collateral, Cancer ([facility]) ([facility]), Cerebral artery occlusion with cerebral infarction ([facility]), Diabetes mellitus ([facility]), Disease of blood and blood forming organ, GERD (gastroesophageal reflux disease), Hemodialysis patient ([facility]) ([facility]),Liver disease, Movement disorder, Neuromuscular disorder ([facility]), Other disorders of kidney and ureter in diseases classified elsewhere, or Seizures ([facility]). Past Surgical History: has a past surgical history that includes Insert / replace / remove pacemaker (10/10/2014); Hardware Removal (Right, 05/02/2016); Mitral valve replacement (07/27/2014); Tricuspid valve surgery (07/27/2014); Cardiac catheterization (N/A, 05/25/2023); and Cardiac valve replacement (2010). Social History: reports that he has been smoking cigarettes. He started smoking about 48 years ago. He has been smoking an average of 0.5 packs per day. He has never been exposed to tobacco smoke. He quit smokeless tobacco use about 8 years ago. He reports current alcohol use. He reports that he does not currentlyuse drugs after having used the following drugs: Heroin and Crack cocaine. Family History: family history includes [id number] in his mother; Atrial fibrillation in his mother; Heart disease in his father. Medications: Prior to Admission medications Medication Sig Start Date End Date Taking? Authorizing Provider albuterol 108 (90 Base) MCG/ACT inhaler TAKE 2 PUFFS INHALED 6 TIMES PER DAY FOR 30 DAYS NEEDED WHEEZING/SHORTNESS OF BREATH. 03/10/23 Yes Historical Provider, atorvastatin (Lipitor) 20 MG tablet Take 20 mg by mouth in the morning. Yes Historical Provider, buPROPion SR (Wellbutrin SR) 150 MG 12 hr tablet Take 150 mg by mouth daily. 02/26/23 Yes Historical Provider, citalopram (CeleXA) 20 MG tablet Take 20 mg by mouth daily. 02/26/23 Yes Historical Provider, empagliflozin (Jardiance) 10 MG Take 1 tablet (10 mg) by mouth daily. 05/25/23 05/24/24 Yes Lance Hobbs MD furosemide (Lasix) 40 MG tablet Take 1 tablet (40 mg) by mouth daily. 05/25/23 Yes Lance Hobbs MD gabapentin (Neurontin) 300 MG capsule Take 300 mg by mouth in the morning and 300 mg at noon and 300 mg in the evening. Yes Historical Provider, HYDROcodone-acetaminophen ([place]) 5-325 MG tablet TAKE 1 TABLET BY MOUTH FOUR TIMES DAILY FOR 28 DAYS 04/07/23 Yes Historical Provider, levothyroxine (Synthroid, Levoxyl) 100 MCG tablet Take 100 mcg by mouth every morning (before breakfast). Yes Historical Provider, metoprolol succinate XL (Toprol-XL) 50 MG 24 hr tablet Take 50 mg by mouth daily. 01/13/23 Yes Historical Provider, spironolactone (Aldactone) 25 MG tablet Take 1 tablet (25 mg) by mouth daily. 04/30/23 04/29/24 YesLance Hobbs MD tamsulosin (Flomax) 0.4 MG 24 hr capsule Take 0.4 mg by mouth in the morning and 0.4 mg in the evening. Yes Historical Provider, tiZANidine (Zanaflex) 4 MG tablet TAKE 1 TABLET ORAL TWICE A DAY FOR 30 DAYS 06/03/22 Yes HistoricalProviderMD traZODone (Desyrel) 100 MG tablet TAKE 3 TABLETS BY MOUTH EVERYDAY AT BEDTIME 01/11/23 Yes Historical Provider, warfarin (Coumadin) 2.5 MG tablet 2.5 MG ORALLY DAILY FOR BLOOD THINNER 03/01/23 Yes Historical Provider, warfarin (Coumadin) 3 MG tablet Take 3 mg by mouth in the morning. Historical Provider, nadolol (Corgard) 40 MG tablet Take 40 mg by mouth in the morning. 06/09/23 Historical Provider, Objective: BP 108/62 (BP Location: Left arm, Patient Position: Sitting, BP Cuff Size: Adult) Pulse 70 Ht 5' 10 (1.778 m) Wt 145 lb 8.1 oz (66 kg) BMI 20.88 kg/m Physical Exam Vitals: BP 108/62 (BP Location: Left arm, Patient Position: Sitting, BP Cuff Size: Adult) Pulse 70 Ht 5' 10 (1.778 m) Wt 145 lb 8.1 oz (66 kg) BMI 20.88 kg/m Constitutional: General: Not in acute distress. Appearance: Normal appearance. Not toxic-appearing. Ear, nose, mouth: Bilateral external ear and nose normal. Nose: Nose normal. Mouth: Appearance normal, no bleeding, moist mucus membranes Eyes: General: No scleral icterus. No discharge from bilateral eyes Extraocular Movements: Extraocular movements intact. Pupils equal and reactive bilaterally Cardiovascular: Heart: Regular rhythm. +murmur. Vascular: No carotid bruit. Edema: No edema in bilateral lower extremities Pulmonary: Effort: Pulmonary effort is normal. No respiratory distress. Breath sounds: Normal breath sounds. No wheezing. Chest wall: No tenderness. Abdominal: Appearance: Not distended Palpations: There is no abdominal tenderness, no guarding. Musculoskeletal: Bilateral upper and lower extremities: Normal range of motion, no deformity Head: Normocephalic and atraumatic. Neck: Normal range of motion and neck supple. No muscular tenderness. Lymphadenopathy: Cervical: No cervical adenopathy. Skin: General: Skin is warm and dry. Coloration: Skin is not jaundiced. Neurological: General: No focal deficit present. Cranial Nerves: No obvious cranial nerve deficit. Psychiatric: Mood and Affect: Mood normal. Thought Content: Thought content normal. Patient has good judgement and insight Mental Status: Alert and oriented to place, person, and time. Labs: Reviewed in EMR Lab Results Component Value Date WBC 7.8 05/20/2023 HGB 11.2 (A) 05/20/2023 HCT 35.6 (A) 05/20/2023 MCV 97.3 05/20/2023 PLT 157 05/20/2023 Lab Results Component Value Date NA 139 05/20/2023 K 4.0 02/25/2023 CL 110 (A) 05/20/2023 CO2 26 05/20/2023 BUN 23 (A) 05/20/2023 CREATININE 1.24 05/20/2023 GLUCOSE 96 02/25/2023 CALCIUM 9.6 05/20/2023 Diagnostics: Reviewed in EMR Assessment/Plan: Mr. Walls is a pleasant 68 year old male who is seen with family today in valve clinic. They havea history of MVR with subsequent MV endocarditis and re- replacement. These occurred in 2010 and 2014 respectively. They recently have increasing SOB with a GALO demonstration 4+ perivalvular leak. This is likely contributing to their symptoms. They would benefit both in quantity and quality of life with resolution of this perivalvular leak. Give their prior surgical history as well as in an attempt to better delinitate the anatomy of their leak, a gated CTA would be helpful. Ideally, this would be amenable to percutaneous interventions. They are very wary of open heart surgery primarily but are interested in percutaneous options. This is very reasonable given their age, functional status andcomorbidities. They are open to surgical salvage if the unlikely need arose. The patient and their families questions were answered to their satisfaction and they would like to proceed toward . Patient consents to surgical bailout: [x] Yes [] No If No why: Disclaimers: INFORMED CONSENT: The nature and purpose of the proposed treatment and/or procedure have been discussed. The risks and benefits of the proposed treatment or procedures have been reviewed. Alternatives have been reviewed in addition to the risks and benefits of not receiving treatments or undergoingprocedures. Pursuant to this discussion, the patient agrees to undergo the proposed treatment or procedure. Captured images seen in this note are not a substitute for a comprehensive interpretation of the entire data set as reflected by the interpreting physician with regard to radiology, echocardiography,and other diagnostic images. documented in this [facility]01-23-2024 History of Present illness Narrative* Ericka Nicholas MD - 06/09/2023 12:30 PM EST Images from the original note were not included. [facility] [address] [facility] [address] Dept: [phone] Dept Visit type: Established : 1955 Reason for Visit: Cardiac Valve Problem Assessment and Plan 1. 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 He also has resultant pulmonary hypertension, now significant symptoms. He was seen today in conjunction with CT surgery, who feels that he would be a high risk candidate for now a third time redo. His symptoms will likely be difficult to manage with medicines along, with this degree of leak. Will order a cardiac CT to evaluate anatomy of perivalvular defect, and assess for anatomic candidacy for a perivalvular plug procedure. Further plans to follow CT scan. It was a pleasure seeing your patient in the office today. Please do not hesitate to call me with any questions. No follow-ups on file. Subjective HPI Brianne Walls is a very pleasant 68y/o male with history of prior mitral valve replacement. Once in 2010, then again in 2014 (endocarditis was involved at this point). He remains relatively active, but has had progressive dyspnea on exertion over the past 6-12 months, now is quite limiting. Initial surface echo suggested moderate mitral stenosis of the bioprosthetic valve, but GALO has now shown severe perivalvular leak (read of moderate stenosis is likely from increased flow from perivalvular leak, minimal MS). He is here for evaluation of perivalvular insufficiency. He has had a right heartcath that showed markedly elevated right heart pressures. Review of Systems Constitutional: Positive for activity change and fatigue. Negative for chills, diaphoresis and fever. HENT: Negative for nosebleeds and trouble swallowing. Eyes: Negative for discharge and visual disturbance. Respiratory: Positive for shortness of breath. Negative for apnea, cough, chest tightness and wheezing. Cardiovascular: Negative for chest pain, palpitations and leg swelling. Gastrointestinal: Negative for abdominal distention, abdominal pain, blood in stool, diarrhea, nausea and vomiting. Endocrine: Negative for cold intolerance and heat intolerance. Genitourinary: Negative for hematuria. Musculoskeletal: Positive for back pain and gait problem. Negative for myalgias. Skin: Negative for color change and rash. Neurological: Negative for dizziness, seizures, syncope, facial asymmetry, speech difficulty, weakness, light-headedness, numbness and headaches. Hematological: Bruises/bleeds easily. Psychiatric/Behavioral: Negative for dysphoric mood. No Known Allergies Outpatient Medications Prior to Visit Medication Sig Dispense Refill albuterol 108 (90 Base) MCG/ACT inhaler TAKE 2 PUFFS INHALED 6 TIMES PER DAY FOR 30 DAYS NEEDED WHEEZING/SHORTNESS OF BREATH. atorvastatin (Lipitor) 20 MG tablet Take 20 mg by mouth in the morning. buPROPion SR (Wellbutrin SR) 150 MG 12 hr tablet Take 150 mg by mouth daily. citalopram (CeleXA) 20 MG tablet Take 20 mg by mouth daily. furosemide (Lasix) 40 MG tablet Take 1 tablet (40 mg) by mouth daily. 90 tablet 0 gabapentin (Neurontin) 300 MG capsule Take 300 mg by mouth in the morning and 300 mg at noon and 300 mg in the evening. HYDROcodone-acetaminophen ([place]) 5-325 MG tablet TAKE 1 TABLET BY MOUTH FOUR TIMES DAILY FOR 28 DAYS levothyroxine (Synthroid, Levoxyl) 100 MCG tablet Take 100 mcg by mouth every morning (before breakfast). metoprolol succinate XL (Toprol-XL) 50 MG 24 hr tablet Take 50 mg by mouth daily. spironolactone (Aldactone) 25 MG tablet Take 1 tablet (25 mg) by mouth daily. 90 tablet 3 tamsulosin (Flomax) 0.4 MG 24 hr capsule Take 0.4 mg by mouth in the morning and 0.4 mg in the evening. tiZANidine (Zanaflex) 4 MG tablet TAKE 1 TABLET ORAL TWICE A DAY FOR 30 DAYS traZODone (Desyrel) 100 MG tablet TAKE 3 TABLETS BY MOUTH EVERYDAY AT BEDTIME warfarin (Coumadin) 2.5 MG tablet 2.5 MG ORALLY DAILY FOR BLOOD THINNER warfarin (Coumadin) 3 MG tablet Take 3 mg by mouth in the morning. empagliflozin (Jardiance) 10 MG Take 1 tablet (10 mg) by mouth daily. (Patient not taking: Reportedon 06/09/2023) 90 tablet 3 nadolol (Corgard) 40 MG tablet Take 40 mg by mouth in the morning. No facility-administered medications prior to visit. Past Medical History: Diagnosis Date Anemia Arthritis Bone infection (HCC) spine CAD (coronary artery disease) Chronic back pain Chronic kidney disease 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) 04/30/2023 COPD (chronic obstructive pulmonary disease) ([facility]) Depression DVT (deep venous thrombosis) ([facility]) Endocarditis History of blood transfusion Hyperlipidemia Hypertension 01/13/2011 Hyperthyroidism Pacemaker Paroxysmal A-fib (CMS/HCC) ([facility]) Pneumonia Social History Tobacco Use Smoking status: Every Day Packs/day: .5 Types: Cigarettes Start date: 04/30/1975 Passive exposure: Never Smokeless tobacco: Former Quit date: 04/30/2015 Substance Use Topics Alcohol use: Yes Past Surgical History: Procedure Laterality Date CARDIAC CATHETERIZATION N/A 05/25/2023 Performed by Lance Hobbs MD at [facility] Cardiac Cath/EP Lab HARDWARE REMOVAL Right 05/02/2016 SCREW IN RIGHT 4TH TOE INSERT / REPLACE / REMOVE PACEMAKER 10/10/2014 MITRAL VALVE REPLACEMENT 07/27/2014 bioprosthetic valve TRICUSPID VALVE SURGERY 07/27/2014 Repair Family History Problem Relation Name Age of Onset Atrial fibrillation Mother Other ([address]) Mother pacemaker Heart disease Father Objective Vitals: 06/09/23 1207 BP: 108/62 Pulse: 70 Weight: 145 lb 9.6 oz (66 kg) Height: 5' 10 (1.778 m) Physical Exam Constitutional: General: He is not in acute distress. Appearance: He is not diaphoretic. HENT: Head: Normocephalic. Nose: Nose normal. Mouth/Throat: Mouth: Mucous membranes are moist. Pharynx: No oropharyngeal exudate. Eyes: General: No scleral icterus. Right eye: No discharge. Left eye: No discharge. Neck: Thyroid: No thyromegaly. Vascular: No carotid bruit or JVD. Cardiovascular: Rate and Rhythm: Normal rate and regular rhythm. Pulses: Normal pulses. Heart sounds: Murmur heard. Systolic murmur is present with a grade of 2/6. Pulmonary: Effort: Pulmonary effort is normal. Breath sounds: Normal breath sounds. Abdominal: General: Bowel sounds are normal. There is no distension. Palpations: There is no hepatomegaly. Tenderness: There is no abdominal tenderness. Musculoskeletal: General: Normal range of motion. Cervical back: Normal range of motion. Right lower leg: No edema. Left lower leg: No edema. Skin: General: Skin is warm and dry. Neurological: Mental Status: He is oriented to person, place, and time. Psychiatric: Mood and Affect: Mood normal. Behavior: Behavior normal. Data Reviewed and Summarized No results found for: EFBP , PLVEF , LVEFPHYS , LVEF2D , EF Review of tests/labs done/ordered within my specialty: EKG in office: Review of tests/labs done/ordered outside my specialty: Independent interpretation of tests: I personally reviewed the images from Brianne Walls's most recent TTE and GALO in the office today,to help with medical decision making. Jen Westfield, RN documented in this [facility]01-12-2024 Hospital Discharge instructions* Discharge Instructions* Nancy Rolle RN - 05/29/2023 3:21 PM EST Post GALO Discharge Instructions Continue medications as instructed by your doctor You have received sedation; You must have someone drive you home You should not drive a car, operate machinery drink any alcohol or perform any activity that requires alertness for the rest of the day. The effects of the sedative should be gone by tomorrow. You may have a sore throat for a day or two following your procedure. Treat this with throat lozenges and a soft diet as tolerated Diet Medication changes Follow up appointment documented in this [facility]01-10-2024 Telephone encounter Note* Telephone Encounter - Jona Green PA-C - 05/27/2023 1:43 PM EST Prep for proc complete. [employer] Phone: [phone]) 814-541101-10-2024 Miscellaneous Notes* Telephone Encounter - Jona Green PA-C - 05/27/2023 1:43 PM EST Prep for proc complete. * Telephone Encounter - Estefaniamelva Clemente - 05/27/2023 1:37 PM EST PT returned call & I gave him the instructions - pt had no questions * Telephone Encounter - Miya Harris RN - 05/27/2023 1:16 PM EST Pt had RHC on 05/25/23, which stated: Recommendations 1. Will proceed with GALO to better assess mitral valve 2. Restart furosemide and continue spironolactone 3. Start empagliflozin 10 mg per day. 4. Consider [id number]-[id number] mitral valve replacement if indicated and after discussion with valve team. You are scheduled for a GALO with Dr Stanley on 05/29/23 at 1:00pm. - Please arrive to [address] [place] [address], 90 minutes prior to your procedure time. - You may use machine binding folder or park in the parking deck attached to the [address] [place] [address] building. - Check into Prep and Recovery area on the ground floor Prep: - nothing to eat/drink 8 hours prior to the procedure, except you may have sips of clear liquids upto 2 hours prior to your procedure - bring a list of your medications (including the doses) - bring a designated taxi cab driver as you will be unable to drive home - please leave neccessary valuables at home - please wear loose fitting, 2 piece, comfortable clothing Meds: - may take your regular AM medications with a sip of water up to 2 hours prior to the procedure time - take your anticoagulation medication (Warfarin), including the morning of your procedure. If on coumadin/warfarin-check INR no more than 36 hours prior. - please hold the following medications that morning: lasix, spironolactone - GALO: labs ordered only at the discretion of performing physician: none per Dr Stanley - ECG (within 30 days): 04/30/23 - H&P (within 30 days): 04/30/23 - please call our office with any questions! [phone] *Tried to call pt to review prep/instructions- NO ANSWER. Left a brief message asking pt to call back. * Telephone Encounter - Estefania Jaramillokins - 05/27/2023 12:02 PM EST Pt scheduled for GALO with Dr Stanley on 05/29/2023 @ . Pts H&P/EKG/labs are UTD. Miya, please call with teach. Jona, please place surg/proc orders. Thank you!! documented in this [facility]01-10-2024 Miscellaneous Notes* Addendum Note - Jona Green PA-C - 05/27/2023 1:38 PM ESTAddended by: JONA GREEN on: 05/27/2023 02:11 PM Modules accepted: Orders documented in this [facility]01-10-2024 Note* Addendum Note - Jona Green PA-C - 05/27/2023 1:38 PM ESTAddended by: JONA GREEN on: 05/27/2023 02:11 PM Modules accepted: Orders [id number] Note* Addendum Note - Jona Geren PA-C - 05/27/2023 1:38 PM ESTAddended by: JONA GREEN on: 05/27/2023 02:11 PM Modules accepted: Orders [id number] NoteAddended by: JONA GREEN on: 05/27/2023 02:11 PM Modules accepted: [facility]01-10-2024 [facility]01-10-2024 Telephone encounter Note* Telephone Encounter - Estefania Bryn - 05/27/2023 1:37 PM EST PT returned call & I gave him the instructions - pt had no questions [id number] Telephone encounter Note* Telephone Encounter - Miya Harris RN - 05/27/2023 1:16 PM EST Pt had RHC on 05/25/23, which stated: Recommendations 1. Will proceed with GALO to better assess mitral valve 2. Restart furosemide and continue spironolactone 3. Start empagliflozin 10 mg per day. 4. Consider [id number]-[id number] mitral valve replacement if indicated and after discussion with valve team. You are scheduled for a GALO with Dr Stanley on 05/29/23 at 1:00pm. - Please arrive to [address] [place] [address], 90 minutes prior to your procedure time. - You may use machine binding folder or park in the parking deck attached to the [address] [place] [address] building. - Check into Prep and Recovery area on the ground floor Prep: - nothing to eat/drink 8 hours prior to the procedure, except you may have sips of clear liquids upto 2 hours prior to your procedure - bring a list of your medications (including the doses) - bring a designated taxi cab driver as you will be unable to drive home - please leave neccessary valuables at home - please wear loose fitting, 2 piece, comfortable clothing Meds: - may take your regular AM medications with a sip of water up to 2 hours prior to the procedure time - take your anticoagulation medication (Warfarin), including the morning of your procedure. If on coumadin/warfarin-check INR no more than 36 hours prior. - please hold the following medications that morning: lasix, spironolactone - GALO: labs ordered only at the discretion of performing physician: none per Dr Stanley - ECG (within 30 days): 04/30/23 - H&P (within 30 days): 04/30/23 - please call our office with any questions! [phone] *Tried to call pt to review prep/instructions- NO ANSWER. Left a brief message asking pt to call back. [id number] Telephone encounter Note* Telephone Encounter - Estefania Clemente - 05/27/2023 12:02 PM EST Pt scheduled for GALO with Dr Stanley on 05/29/2023 @ . Pts H&P/EKG/labs are UTD. Miya, please call with teach. Jona, please place surg/proc orders. Thank you!! [id number] Telephone encounter Note* Telephone Encounter - Isabell Kaiseryuli, [facility] - 05/27/2023 10:35 AM EST SUBJECTIVE Brianne Walls is a 67 year old Male who was referred to [facility] for clinical management services for Jardiance 10 MG. Diagnosis Chronic systolic (congestive) heart failure I50.22 OBJECTIVE Data Collect Jardiance 05/27/2023 Serum creatinine Assessment Date: 05/20/2023 Value: 1.24 eGFR Assessment Date: 05/20/2023 Value: 62 LVEF Assessment Date: 05/25/2023 Value: 62 NYHA Class Assessment Date: 05/19/2023 Value: class ii ASSESSMENT / PLAN Jardiance 10 MG Expectations and Goals of therapy Goals of therapy: Improve LVEF % (measure of the heart's ability to pump blood to the rest of the body) and reduce symptoms of congestive heart failure (shortness of breath, fatigue, edema, weight gain). Disease state education Counseled on general disease state management strategies. Emphasized that CHF is a chronic medical condition that requires consistent adherence to prescribed medication in order to achieve treatment goals. Administration Counseled on appropriate oral administration instructions. Discontinue any older regimens that could interact with new regimen. Brianne is comfortable taking Jardiance 10 mg by mouth daily. No barriers. Storage/Disposal Counseled on proper storage of medication at room temperature in a dry place. Side effects Educated that common side effects include urinary tract infections, yeast infections, increased urination, and dehydration. Contact Advised patient when to contact pharmacy or provider. Adherence Since this is a preventative therapy, the patient needs to take medication routinely as prescribed regardless of their heart failure symptoms. Monitoring and follow up Reviewed therapy monitoring parameters and importance to maintain follow-up lab and provider visits. Emphasized that it is absolutely essential that lab work is completed in a timely manner in order to ensure that the medication is working as desired and to monitor for safety Pharmacy Recommendations/Education/Other Brianne has an ongoing history of heart failure. He is currently taking metoprolol, spironolactone, and furosemide. 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 We reviewed dose, administration, and side effects. He has no questions or concerns at this time. He asks about scheduling a BPVR. I advised he will need to call the cardiology directly to inquire on this. Iasbell Shaffer PharmD [facility] CenterDigital Management, Inc.[id number] Miscellaneous Notes* Telephone Encounter - Isabell Shaffer RPh - 05/27/2023 10:35 AM EST SUBJECTIVE Brianne Walls is a 67 year old Male who was referred to [facility] for clinical management services for Jardiance 10 MG. Diagnosis Chronic systolic (congestive) heart failure I50.22 OBJECTIVE Data Collect Jardiance 05/27/2023 Serum creatinine Assessment Date: 05/20/2023 Value: 1.24 eGFR Assessment Date: 05/20/2023 Value: 62 LVEF Assessment Date: 05/25/2023 Value: 62 NYHA Class Assessment Date: 05/19/2023 Value: class ii ASSESSMENT / PLAN Jardiance 10 MG Expectations and Goals of therapy Goals of therapy: Improve LVEF % (measure of the heart's ability to pump blood to the rest of the body) and reduce symptoms of congestive heart failure (shortness of breath, fatigue, edema, weight gain). Disease state education Counseled on general disease state management strategies. Emphasized that CHF is a chronic medical condition that requires consistent adherence to prescribed medication in order to achieve treatment goals. Administration Counseled on appropriate oral administration instructions. Discontinue any older regimens that could interact with new regimen. Brianne is comfortable taking Jardiance 10 mg by mouth daily. No barriers. Storage/Disposal Counseled on proper storage of medication at room temperature in a dry place. Side effects Educated that common side effects include urinary tract infections, yeast infections, increased urination, and dehydration. Contact Advised patient when to contact pharmacy or provider. Adherence Since this is a preventative therapy, the patient needs to take medication routinely as prescribed regardless of their heart failure symptoms. Monitoring and follow up Reviewed therapy monitoring parameters and importance to maintain follow-up lab and provider visits. Emphasized that it is absolutely essential that lab work is completed in a timely manner in order to ensure that the medication is working as desired and to monitor for safety Pharmacy Recommendations/Education/Other Brianne has an ongoing history of heart failure. He is currently taking metoprolol, spironolactone, and furosemide. 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 We reviewed dose, administration, and side effects. He has no questions or concerns at this time. He asks about scheduling a BPVR. I advised he will need to call the cardiology directly to inquire on this. Isabell Shaffer PharmD documented in this [facility]01-08-2024 Telephone encounter Note* Telephone Encounter - Christ Gibson RN - 05/25/2023 2:51 PM EST Called and spoke with patient. Informed him that Jardiance was sent to [facility] pharmacy and it will be sent out to him. Instructed him to have labs drawn a week after starting the medication. Advised patient that he should be taking his lasix everyday. He acknowledged but stated that he will need a refill sent in. [id number] Miscellaneous Notes* Telephone Encounter - Christ Gibson RN - 05/25/2023 2:51 PM EST Called and spoke with patient. Informed him that Jardiance was sent to [facility] pharmacy and it will be sent out to him. Instructed him to have labs drawn a week after starting the medication. Advised patient that he should be taking his lasix everyday. He acknowledged but stated that he will need a refill sent in. * Telephone Encounter - Christ Gibson RN - 05/25/2023 11:01 AM EST ----- Message from Lance Hobbs MD sent at 05/25/2023 10:58 AM EST ----- SHIVA Resendiz, empagliflozin new start. [place]. Can you call him and tell him that I have started her new pills and be delivered to his house about a week. He needs to have blood work 1 week after starting the empagliflozin. Also tell him that he needs to be taking his Lasix. Estefania, can you schedulea transesophageal echocardiogram for him. Thanks! documented in this [facility]01-08-2024 Telephone encounter Note* Telephone Encounter - Christ Gibson RN - 05/25/2023 11:01 AM EST ----- Message from Lance Hobbs MD sent at 05/25/2023 10:58 AM EST ----- SHIVA Resendiz, empagliflozin new start. [place]. Can you call him and tell him that I have started her new pills and be delivered to his house about a week. He needs to have blood work 1 week after starting the empagliflozin. Also tell him that he needs to be taking his Lasix. Estefania, can you schedulea transesophageal echocardiogram for him. Thanks! [id number] History of Present illness Narrative* Lance Hobbs MD - 05/25/2023 10:53 AM EST Starting empagliflozin for heart failure. Getting transesophageal echocardiogram to look for mitralvalve stenosis. documented in this [facility]01-08-2024 Hospital Discharge instructions* Discharge Instructions* Nancy Rolle RN - 05/25/2023 9:51 AM EST Discharge Instructions Observe neck site for swelling, redness, warmth, or bleeding. If these occur, notify your doctor listed below. Do not lift anything over 10 pounds for the next 3 days. Slight swelling or bruising is expected. For oozing, apply pressure for 10-15 minutes For brisk bleeding that does not stop, come to the Emergency department Keep neck site covered for 5 days. Change bandage daily. Resume pre-procedure diet Take all medications as prescribed by your doctor Procedure Sedation Instructions If you have received sedation: you must have someone drive you home You should not drive a car, operate machinery, drink alcohol or perform any activity that requires alertness for the rest of the day. The effects of the sedative should be gone by tomorrow. documented in this [facility]01-08-2024 Note* Pre-Sedation Documentation - Lance Hobbs MD - 05/25/2023 9:09 AM EST Sedation Plan Mallampati class: II - soft palate, uvula, fauces visible. Sedation plan: local anesthesia Risks, benefits, and alternatives discussed with patient. [id number] Note* Pre-Sedation Documentation - Lance Hobbs MD - 05/25/2023 9:09 AM EST Sedation Plan Mallampati class: II - soft palate, uvula, fauces visible. Sedation plan: local anesthesia Risks, benefits, and alternatives discussed with patient. [id number] Miscellaneous Notes* Pre-Sedation Documentation - Lance Hobbs MD - 05/25/2023 9:09 AM EST Sedation Plan Mallampati class: II - soft palate, uvula, fauces visible. Sedation plan: local anesthesia Risks, benefits, and alternatives discussed with patient. documented in this [facility]01-02-2024 Telephone encounter Note* Telephone Encounter - Selena Shankar PA-C - 05/19/2023 4:07 PM EST Orders placed without EKG - this was completed during OV [employer] Phone: 1(353) 777-997601-02-2024 Miscellaneous Notes* Telephone Encounter - Selena Shankar PA-C - 05/19/2023 4:07 PM EST Orders placed without EKG - this was completed during OV * Telephone Encounter - Estefania Clemente - 05/19/2023 3:16 PM EST PT scheduled for RHC with Dr Hobbs on 05/25/23 @ 8a. Pts H&P is UTD & pt will have labs @ [facility] on 05/20/23. Teach done in office. Selena, please place surg/proc orders and order for EKG day of * Telephone Encounter - Diana Chavarria RN - 04/30/2023 3:11 PM EST Images from the original note were not included. PROCEDURE: RIGHT HEART CATH PROCEDURE DATE: Estefania to call pt with date and time. PROCEDURE TIME: ARRIVE AT Report to the 2nd floor Family waiting area at the hospital entrance at [address] [place] [address]. Nothing to eat or drink after midnight prior to your procedure unless otherwise instructed by your doctor. You may take your morning medications as directed by physician with a sip of water unless specified below. Bring a complete list of all of your medications and dosages. Ok to take Coumadin Please have your coumadin level checked prior to procedure. Aspirin 81 mg as usual on the day of procedure. DO NOT TAKE your diuretic (water pill) Lasix on the morning of procedure. No diabetes, no dye for procedure; Please make arrangements for a taxi cab driver after the procedure. You will not be able to drive for 24 to 72 hours. Pt will get labwork prior to procedure in [place]- pt will call when he gets his labwork done. If you have any questions regarding your medications, please call your doctor's office. All patients will be called the afternoon prior to the procedure with specific instructions if there should be any changes. If you do not receive a call by 4:30 pm, please call the Prep and Recovery area at [phone]. The schedule is not finalized until the afternoon, so please avoid calling before 4:30 pm. documented in this [facility]01-02-2024 History and physical note* Selena Shankar PA-C - 05/19/2023 4:02 PM EST H+ P copied to chart from Dr. Hobbs's progress note dated 04/30/[address] Hobbs. CARDIOLOGY HEART FAILURE PROGRESS NOTE Today's Date: 04/30/23 Chart and interval events reviewed. Chief Complaint Chief Complaint Patient presents with New Patient Congestive Heart Failure Hypertension Atrial Fibrillation Post-op Valve Replacement Subjective: Mr. 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 I have had a chance to review some older records including an echocardiogram from January 2011 [facility] which showed left ventricular ejection fraction 49%, and a well-functioning bioprosthetic mitral valve with a mean gradient of 4 mmHg. He has been following with the group in [place].He underwent a transthoracic echocardiogram in February 2023 that showed left ventricular ejection fraction 60%, with a mean gradient across the mitral valve 8 mmHg, with moderate to severe tricuspid regurgitation and an RVSP of 90 mmHg. I reviewed the report of a CT of the chest from September 2022 whichshowed a focal infiltrate in the right upper lobe but did not mention any significant interstitial lung disease. He did have some emphysematous changes. Currently, he reports that in general he feels okay at he does not feel any different than he did afew years ago. His shortness of breath is NYHA class II, with no orthopnea, no PND, but he does have some fatigue, and occasional dizziness with standing. He denies any chest pain or palpitations. Blood pressure is 116/70 with a heart rate of 70 bpm. Past Medical History: Medical History Past Medical History: Diagnosis Date Anemia Arthritis Bone infection (HCC) spine CAD (coronary artery disease) Chronic back pain Chronic kidney disease COPD (chronic obstructive pulmonary disease) (HCC) Depression DVT (deep venous thrombosis) ([facility]) Endocarditis History of blood transfusion Hyperlipidemia Hypertension 01/13/2011 Hyperthyroidism Pacemaker Paroxysmal A-fib (CMS/HCC) (HCC) Pneumonia Past Surgical History Surgical History Past Surgical History: Procedure Laterality Date HARDWARE REMOVAL Right 05/02/2016 SCREW IN RIGHT 4TH TOE INSERT / REPLACE / REMOVE PACEMAKER 10/10/2014 MITRAL VALVE REPLACEMENT 07/27/2014 bioprosthetic valve TRICUSPID VALVE SURGERY 07/27/2014 Repair Family History Family History Family History Problem Relation Name Age of Onset Atrial fibrillation Mother Other ([id number]) Mother pacemaker Heart disease Father Social History Social History Tobacco Use Smoking status: Every Day Packs/day: .5 Types: Cigarettes Start date: 04/30/1975 Passive exposure: Never Smokeless tobacco: Former Quit date: 04/30/2015 Substance Use Topics Alcohol use: Yes Drug use: Not Currently Types: Heroin, Crack cocaine Comment: Former user/ caffeine- 1 cup of coffee daily Allergies: No Known Allergies Current Medications: Current Medications Current Outpatient Medications Medication Sig Dispense Refill albuterol 108 (90 Base) MCG/ACT inhaler TAKE 2 PUFFS INHALED 6 TIMES PER DAY FOR 30 DAYS NEEDED WHEEZING/SHORTNESS OF BREATH. atorvastatin (Lipitor) 20 MG tablet Take 20 mg by mouth in the morning. furosemide (Lasix) 40 MG tablet Take 40 mg by mouth Daily as needed. gabapentin (Neurontin) 300 MG capsule Take 300 mg by mouth in the morning and 300 mg at noon and 300 mg in the evening. levothyroxine (Synthroid, Levoxyl) 100 MCG tablet Take 100 mcg by mouth every morning (before breakfast). metoprolol succinate XL (Toprol-XL) 50 MG 24 hr tablet Take 50 mg by mouth daily. nadolol (Corgard) 40 MG tablet Take 40 mg by mouth in the morning. tamsulosin (Flomax) 0.4 MG 24 hr capsule Take 0.4 mg by mouth in the morning and 0.4 mg in the evening. tiZANidine (Zanaflex) 4 MG tablet TAKE 1 TABLET ORAL TWICE A DAY FOR 30 DAYS traZODone (Desyrel) 100 MG tablet TAKE 3 TABLETS BY MOUTH EVERYDAY AT BEDTIME warfarin (Coumadin) 2.5 MG tablet 2.5 MG ORALLY DAILY FOR BLOOD THINNER warfarin (Coumadin) 3 MG tablet Take 3 mg by mouth in the morning. buPROPion SR (Wellbutrin SR) 150 MG 12 hr tablet Take 150 mg by mouth daily. citalopram (CeleXA) 20 MG tablet Take 20 mg by mouth daily. HYDROcodone-acetaminophen ([place]) 5-325 MG tablet TAKE 1 TABLET BY MOUTH FOUR TIMES DAILY FOR 28 DAYS spironolactone (Aldactone) 25 MG tablet Take 1 tablet (25 mg) by mouth daily. 90 tablet 3 No current facility-administered medications for this visit. Review of Systems: All other systems were reviewed and are negative other than as noted in the HPI. Vital Signs: Vitals Vitals: 04/30/23 1345 BP: 116/70 BP Location: Right arm Pulse: 70 SpO2: 97% Weight: 149 lb (67.6 kg) Height: 5' 10 (1.778 m) Body mass index is 21.38 kg/m . Wt Readings from Last 3 Encounters: 04/30/23 149 lb (67.6 kg) Physical Exam Constitutional: Appearance: Normal appearance. HENT: Head: Normocephalic and atraumatic. Neck: Vascular: No JVD. Cardiovascular: Heart sounds: Normal heart sounds, S1 normal and S2 normal. No systolic murmur is present. No diastolic murmur is present. No S3 or S4 sounds. Pulmonary: Effort: Pulmonary effort is normal. Breath sounds: Normal breath sounds. No decreased breath sounds, wheezing or rales. Musculoskeletal: Right lower leg: No edema. Left lower leg: No edema. Skin: General: Skin is warm and dry. Neurological: Mental Status: He is alert. CBC: No results for input(s): WBC , HGB , HCT , PLT in the last 72 hours. BMP:No results for input(s): NA , K , CL , CO2 , BUN , CREATININE , GLU , LABGLOM in the last 72 hours. No lab exists for component: CA CMP: Lab Results Component Value Date NA 136 02/25/2023 K 4.0 02/25/2023 CL 106 02/25/2023 CO2 24 02/25/2023 BUN 12 02/25/2023 CREATININE 1.19 02/25/2023 GLUCOSE 96 02/25/2023 CALCIUM 8.6 02/25/2023 PROT 7.2 02/25/2023 BILITOT 1.4 (A) 02/25/2023 ALKPHOS 193 (A) 02/25/2023 AST 57 (A) 02/25/2023 ALT 33 02/25/2023 Magnesium: No results found for: MG LFT: Lab Results Component Value Date ALT 33 02/25/2023 AST 57 (A) 02/25/2023 ALKPHOS 193 (A) 02/25/2023 BILITOT 1.4 (A) 02/25/2023 INR:No results found for: INR , PROTIME PRO-BNP: No results found for: BNP TSH: Lab Results Component Value Date TSH 3.540 02/25/2023 Lipid Profile: No results found for: TRIG , HDL , LDLCALC , CHOL Hemoglobin A1C: No results found for: HGBA1C GRISELDA: No results found for: GRISELDA Ferritin: No results found for: FERRITIN HIV: No results found for: [id number] EKG: See Report Echo: See Report EF: No components found for: LVEF , LVEFMODE IMPRESSIONS: Diagnosis Plan 1. Primary hypertension ECG 12 lead - CLINIC PERFORMED Basic metabolic panel NT PRO BNP CBC Basic metabolic panel NT PRO BNP CBC 2. Vegetative endocarditis of mitral valve Basic metabolic panel NT PRO BNP CBC Basic metabolic panel NT PRO BNP CBC 3. Presence of cardiac pacemaker Basic metabolic panel NT PRO BNP CBC Basic metabolic panel NT PRO BNP CBC 4. Bacterial endocarditis, unspecified chronicity Basic metabolic panel NT PRO BNP CBC Basic metabolic panel NT PRO BNP CBC 5. Syncope, unspecified syncope type Basic metabolic panel NT PRO BNP CBC Basic metabolic panel NT PRO BNP CBC 6. 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) NT PRO BNP NT PRO BNP Pulmonary hypertension: This is likely mixed etiology, but my guess is that it is most likely group2 from the bioprosthetic mitral valve combined with some diastolic dysfunction. He has not had a formal right heart catheterization. We spoke about his symptoms, and his overall condition and decidedto pursue RHC to better define the Group and severity. Will start spironolactone 25 mg per day. Bioprosthetic mitral valve replacement: With a #29 Medtronic tissue valve in [address] [facility]. His last echo suggested a mean gradient across the valve of 8 mmHg. 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 Will continue to follow this. Paroxysmal atrial fibrillation: His EKG today shows sinus rhythm with LVH and left anterior fascicular block. He is on warfarin and metoprolol 50 mg/day. Lance Hobbs MD, PhD Advanced Heart Failure Cardiology better.. [facility] [place] 2:41 PM 04/30/23 Copied by Selena Shankar PA-C [employer] Work Phone: 1(493) 744-446601-02-2024 History and physical note* Selena Shankar PA-C - 05/19/2023 4:02 PM EST H+ P copied to chart from Dr. Hobbs's progress note dated 04/30/[address] Hobbs. CARDIOLOGY HEART FAILURE PROGRESS NOTE Today's Date: 04/30/23 Chart and interval events reviewed. Chief Complaint Chief Complaint Patient presents with New Patient Congestive Heart Failure Hypertension Atrial Fibrillation Post-op Valve Replacement Subjective: Mr. 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 I have had a chance to review some older records including an echocardiogram from January 2011 [facility] which showed left ventricular ejection fraction 49%, and a well-functioning bioprosthetic mitral valve with a mean gradient of 4 mmHg. He has been following with the group in [place].He underwent a transthoracic echocardiogram in February 2023 that showed left ventricular ejection fraction 60%, with a mean gradient across the mitral valve 8 mmHg, with moderate to severe tricuspid regurgitation and an RVSP of 90 mmHg. I reviewed the report of a CT of the chest from September 2022 whichshowed a focal infiltrate in the right upper lobe but did not mention any significant interstitial lung disease. He did have some emphysematous changes. Currently, he reports that in general he feels okay at he does not feel any different than he did afew years ago. His shortness of breath is NYHA class II, with no orthopnea, no PND, but he does have some fatigue, and occasional dizziness with standing. He denies any chest pain or palpitations. Blood pressure is 116/70 with a heart rate of 70 bpm. Past Medical History: Medical History Past Medical History: Diagnosis Date Anemia Arthritis Bone infection (HCC) spine CAD (coronary artery disease) Chronic back pain Chronic kidney disease COPD (chronic obstructive pulmonary disease) ([facility]) Depression DVT (deep venous thrombosis) ([facility]) Endocarditis History of blood transfusion Hyperlipidemia Hypertension 01/13/2011 Hyperthyroidism Pacemaker Paroxysmal A-fib (CMS/HCC) ([facility]) Pneumonia Past Surgical History Surgical History Past Surgical History: Procedure Laterality Date HARDWARE REMOVAL Right 05/02/2016 SCREW IN RIGHT 4TH TOE INSERT / REPLACE / REMOVE PACEMAKER 10/10/2014 MITRAL VALVE REPLACEMENT 07/27/2014 bioprosthetic valve TRICUSPID VALVE SURGERY 07/27/2014 Repair Family History Family History Family History Problem Relation Name Age of Onset Atrial fibrillation Mother Other ([id number]) Mother pacemaker Heart disease Father Social History Social History Tobacco Use Smoking status: Every Day Packs/day: .5 Types: Cigarettes Start date: 04/30/1975 Passive exposure: Never Smokeless tobacco: Former Quit date: 04/30/2015 Substance Use Topics Alcohol use: Yes Drug use: Not Currently Types: Heroin, Crack cocaine Comment: Former user/ caffeine- 1 cup of coffee daily Allergies: No Known Allergies Current Medications: Current Medications Current Outpatient Medications Medication Sig Dispense Refill albuterol 108 (90 Base) MCG/ACT inhaler TAKE 2 PUFFS INHALED 6 TIMES PER DAY FOR 30 DAYS NEEDED WHEEZING/SHORTNESS OF BREATH. atorvastatin (Lipitor) 20 MG tablet Take 20 mg by mouth in the morning. furosemide (Lasix) 40 MG tablet Take 40 mg by mouth Daily as needed. gabapentin (Neurontin) 300 MG capsule Take 300 mg by mouth in the morning and 300 mg at noon and 300 mg in the evening. levothyroxine (Synthroid, Levoxyl) 100 MCG tablet Take 100 mcg by mouth every morning (before breakfast). metoprolol succinate XL (Toprol-XL) 50 MG 24 hr tablet Take 50 mg by mouth daily. nadolol (Corgard) 40 MG tablet Take 40 mg by mouth in the morning. tamsulosin (Flomax) 0.4 MG 24 hr capsule Take 0.4 mg by mouth in the morning and 0.4 mg in the evening. tiZANidine (Zanaflex) 4 MG tablet TAKE 1 TABLET ORAL TWICE A DAY FOR 30 DAYS traZODone (Desyrel) 100 MG tablet TAKE 3 TABLETS BY MOUTH EVERYDAY AT BEDTIME warfarin (Coumadin) 2.5 MG tablet 2.5 MG ORALLY DAILY FOR BLOOD THINNER warfarin (Coumadin) 3 MG tablet Take 3 mg by mouth in the morning. buPROPion SR (Wellbutrin SR) 150 MG 12 hr tablet Take 150 mg by mouth daily. citalopram (CeleXA) 20 MG tablet Take 20 mg by mouth daily. HYDROcodone-acetaminophen ([place]) 5-325 MG tablet TAKE 1 TABLET BY MOUTH FOUR TIMES DAILY FOR 28 DAYS spironolactone (Aldactone) 25 MG tablet Take 1 tablet (25 mg) by mouth daily. 90 tablet 3 No current facility-administered medications for this visit. Review of Systems: All other systems were reviewed and are negative other than as noted in the HPI. Vital Signs: Vitals Vitals: 04/30/23 1345 BP: 116/70 BP Location: Right arm Pulse: 70 SpO2: 97% Weight: 149 lb (67.6 kg) Height: 5' 10 (1.778 m) Body mass index is 21.38 kg/m . Wt Readings from Last 3 Encounters: 04/30/23 149 lb (67.6 kg) Physical Exam Constitutional: Appearance: Normal appearance. HENT: Head: Normocephalic and atraumatic. Neck: Vascular: No JVD. Cardiovascular: Heart sounds: Normal heart sounds, S1 normal and S2 normal. No systolic murmur is present. No diastolic murmur is present. No S3 or S4 sounds. Pulmonary: Effort: Pulmonary effort is normal. Breath sounds: Normal breath sounds. No decreased breath sounds, wheezing or rales. Musculoskeletal: Right lower leg: No edema. Left lower leg: No edema. Skin: General: Skin is warm and dry. Neurological: Mental Status: He is alert. CBC: No results for input(s): WBC , HGB , HCT , PLT in the last 72 hours. BMP:No results for input(s): NA , K , CL , CO2 , BUN , CREATININE , GLU , LABGLOM in the last 72 hours. No lab exists for component: CA CMP: Lab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 Negative Last Dose of Anticoagulation: Heparin SC 01/12/11 AM Op Note: N/A Pacemaker Check: N/A Consults: Neurosurgery, Ortho, Dentistry, ID DM: No Cardiac Surgical prep: [place] ordered SIGNATURE: Rachel Calix CNP CHECKED BY: JERI DATE of SERVICE: 01/12/2011 TIME of SERVICE: 10:26 AM Pre-op testing 01/10/2011 01/13/2011 Overview: Patient will be seen by the surgeon, Dr. Lewis Ibanez M.D.. 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 Cardiac pacemaker in situ Bacterial endocarditis, unspecified chronicity Syncope, unspecified syncope type 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) documented in this encounter [facility]* Diagnosis Primary hypertension- Primary Unspecified essential hypertension 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 Cardiac pacemaker in situ Bacterial endocarditis, unspecified chronicity Syncope, unspecified syncope type 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) 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)- Primary 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) [facility]* Diagnosis 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)- Primary 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) documented in this encounter [facility]* Diagnosis Mitral valve stenosis and aortic valve stenosis- Primary 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) documented in this encounter [facility]* Diagnosis 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) documented in this encounter [facility]* Diagnosis 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- Primary Long-term (current) use of anticoagulants documented in this encounter [facility]* Diagnosis 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) Mitral valve stenosis and aortic valve stenosis documented in this encounter [facility]* Diagnosis Paravalvular leak of prosthetic heart valve, initial encounter- Primary documented in this encounter [facility]* Diagnosis Mitral valve insufficiency, unspecified etiology- Primary Acute deep vein thrombosis (DVT) of right lower extremity, unspecified vein (HCC) 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) Perivalvular leak of prosthetic heart valve, initial encounter Nonrheumatic mitral valve disorder, unspecified S/P mitral valve replacement Heart valve replaced by other means documented in this encounter [facility]* Diagnosis S/P mitral valve replacement- Primary Heart valve replaced by other means Bacterial endocarditis, unspecified chronicity Mitral valve insufficiency, unspecified etiology documented in this encounter [facility]* Diagnosis Perivalvular leak of prosthetic heart valve, initial encounter Nonrheumatic mitral valve disorder, unspecified documented in this encounter [facility]* Diagnosis Prosthetic cardiac paravalvular leak, initial encounter- Primary Mitral valve insufficiency, unspecified etiology- Primary S/P mitral valve replacement Heart valve replaced by other means Acute on chronic diastolic heart failure (HCC) Acute on chronic diastolic heart failure CKD (chronic kidney disease) stage 2, GFR 60-89 ml/min Chronic kidney disease, Stage II (mild) Prosthetic cardiac paravalvular leak, initial encounter documented in this encounter [facility]* Diagnosis Prosthetic cardiac paravalvular leak, initial encounter- Primary Prosthetic cardiac paravalvular leak, initial encounter Prosthetic cardiac paravalvular leak, initial encounter documented in this encounter [facility]* Diagnosis Prosthetic cardiac paravalvular leak, initial encounter- Primary Severe mitral regurgitation- Primary Prosthetic cardiac paravalvular leak, initial encounter [facility] Diagnosis Prosthetic cardiac paravalvular leak, initial encounter- Primary Prosthetic cardiac paravalvular leak, initial encounter Dyspnea, unspecified Prosthetic cardiac paravalvular leak, initial encounter documented in this encounter [facility]* Diagnosis Mitral valve insufficiency, unspecified etiology- Primary documented in this encounter [facility]* Diagnosis Prosthetic cardiac paravalvular leak, initial encounter- Primary Severe mitral regurgitation 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 S/P mitral valve replacement Heart valve replaced by other means Severe mitral regurgitation [facility] Diagnosis Mitral valve insufficiency, unspecified etiology- Primary S/P mitral valve replacement Heart valve replaced by other means Acute on chronic diastolic heart failure (HCC) Acute on chronic diastolic heart failure CKD (chronic kidney disease) stage 2, GFR 60-89 ml/min Chronic kidney disease, Stage II (mild) [facility] Diagnosis S/P mitral valve repair- Primary Other postprocedural status Severe mitral regurgitation CKD (chronic kidney disease) stage 2, GFR 60-89 ml/min Chronic kidney disease, Stage II (mild) Chronic diastolic heart failure (HCC) Chronic diastolic heart failure [facility] Diagnosis Severe mitral regurgitation- Primary [facility]* Diagnosis INR (international normal ratio) abnormal- Primary Abnormal coagulation profile Mitral valve insufficiency, unspecified etiology Shortness of breath Other fatigue Acute diastolic heart failure (HCC) Acute diastolic heart failure Anemia, unspecified type documented in this encounter [facility]* Diagnosis Mitral valve insufficiency, unspecified etiology Shortness of breath [facility]* Diagnosis Severe mitral regurgitation documented in this encounter [facility]* Diagnosis Severe mitral regurgitation documented in this encounter [facility]* Diagnosis 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) 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 Cardiac pacemaker in situ Chronic diastolic heart failure (HCC) Chronic diastolic heart failure Pulmonary hypertension (HCC) Other chronic pulmonary heart diseases 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) CKD (chronic kidney disease) stage 2, GFR 60-89 ml/min Chronic kidney disease, Stage II (mild) Other hyperlipidemia documented in this encounter [facility]* Diagnosis 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 Cardiac pacemaker in situ Chronic diastolic heart failure (HCC) Chronic diastolic heart failure Pulmonary hypertension (HCC) Other chronic pulmonary heart diseases 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) CKD (chronic kidney disease) stage 2, GFR 60-89 ml/min Chronic kidney disease, Stage II (mild) Other hyperlipidemia [facility]* Diagnosis SDH (subdural hematoma) (HCC)- Primary Subdural hemorrhage SDH (subdural hematoma) (HCC) Subdural hemorrhage Brain compression (CMS/HCC) (HCC) Compression of brain Anticoagulated on Coumadin Fall Unspecified fall 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 [facility]* Diagnosis SDH (subdural hematoma) (HCC) Subdural hemorrhage [facility]* Diagnosis Chronic bilateral low back pain without sciatica- Primary [facility]* Diagnosis 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) Vegetative endocarditis of mitral valve Chronic diastolic heart failure (HCC) Chronic diastolic heart failure Pulmonary hypertension (HCC) Other chronic pulmonary heart diseases 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) Other hyperlipidemia [facility]* Diagnosis Postoperative visit- Primary Subdural hematoma (HCC) Subdural hemorrhage Anticoagulation adequate documented in this encounter [facility]* Diagnosis Vegetative endocarditis of mitral valve Chronic diastolic heart failure (HCC) Chronic diastolic heart failure Pulmonary hypertension (HCC) Other chronic pulmonary heart diseases 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) Other hyperlipidemia [facility] Narrative No data available for this section [facility] Reason for referral (narrative)* Consultation (Routine) - Pending Review Specialty Diagnoses / Procedures Referred By Contac t Referred To Contact Cardiology Diagnoses Paravalvular leak of prosthetic heart valve, initial encounter Procedures [place] OFFICE/OUTPATIENT NEW HIGH MDM 60 MINUTES Lance Hobbs MD [address] [place] [address] [address] [place] [address] Referral ID Status Reason Start Date Expiration Date Visits Requested Visits Authorized [id number] Pending Review Specialty Services Required 06/01/2023 05/31/2024 1 1 [facility] for referral (narrative)* Consultation (Routine) - Pending Review Specialty Diagnoses / Procedures Referred By Contac t Referred To Contact Cardiology Diagnoses Severe mitral regurgitation S/P mitral valve repair Procedures [place] OFFICE/OUTPATIENT NEW HIGH MDM 60 MINUTES Selena Leonardo APRN - CNP [address] [place] [address] [address] Referral ID Status Reason Start Date Expiration Date Visits Requested Visits Authorized [id number] Pending Review Specialty Services Required 08/06/2023 08/05/2024 1 1 [place] Summary Purpose Family History No Family History Records Found No data available for this section No Family History Records FoundNo Family History Records Found Advance Directives Latest Code Status on File Code Status Date Activated Date Inactivated Comments Full Code 05/25/2023 6:59 AM 05/25/2023 12:42 PM Latest Code Status on File Code Status Date Activated Date Inactivated Comments Full Code 05/25/2023 6:59 AM 05/25/2023 12:42 PM Latest Code Status on File Code Status Date Activated Date Inactivated Comments Full Code 07/29/2023 6:10 AM Code Status History Code Status Date Activated Date Inactivated Comments Full Code 05/25/2023 6:59 AM 05/25/2023 12:42 PM Latest Code Status on File Code Status Date Activated Date Inactivated Comments Full Code 07/29/2023 6:10 AM 07/30/2023 2:19 PM Latest Code Status on File Code Status Date Activated Date Inactivated Comments Full Code 07/29/2023 6:10 AM 07/30/2023 2:19 PM Code Status History Code Status Date Activated Date Inactivated Comments Full Code 05/25/2023 6:59 AM 05/25/2023 12:42 PM Date Activated Date Inactivated Comments 01/01/2024 5:54 PM 01/07/2024 3:08 PM Date Activated Date Inactivated Comments 07/29/2023 6:10 AM 07/30/2023 2:19 PM Date Activated Date Inactivated Comments 05/25/2023 6:59 AM 05/25/2023 12:42 PM Date Activated Date Inactivated Comments 01/01/2024 5:54 PM 01/07/2024 3:08 PM Date Activated Date Inactivated Comments 07/29/2023 6:10 AM 07/30/2023 2:19 PM Date Activated Date Inactivated Comments 05/25/2023 6:59 AM 05/25/2023 12:42 PM Reason for Referral Specialty Diagnoses / Procedures Referred By Contac t Referred To Contact Cardiology Diagnoses 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) Mitral valve stenosis and aortic valve stenosis Procedures Transesophageal echocardiogram (GALO) with contrast and 3D PRN WI ECHO TRANSESOPHAG R-T 2D W/PRB IMG ACQUISJ I&R WI DOP ECHOCARD COLOR FLOW VELOCITY MAPPING WI DOPPLER ECHOCARD PULSE WAVE W/SPECTRAL DISPLAY Lance Hobbs MD [address] [place] [address] Referral ID Status Reason Start Date Expiration Date V isits Requested Visits Authorized [id number] Pending Review 05/25/2023 05/24/2024 1 1 Referral ID Status Reason Start Date Expiration Date Visits Re quested Visits Authorized [id number] Closed 05/25/2023 05/24/2024 1 1 Specialty Diagnoses / Procedures Referred By Contac t Referred To Contact Radiology Diagnoses Perivalvular leak of prosthetic heart valve, initial encounter Nonrheumatic mitral valve disorder, unspecified Procedures CT heart structure morphology w IV contrast Selena Leonardo, [employer] [address] [address] Referral ID Status Reason Start Date Expiration Date V isits Requested Visits Authorized [id number] Authorized 06/09/2023 06/08/2024 1 1 Referral ID Status Reason Start Date Expiration Date Visits Re quested Visits Authorized [id number] Closed 06/09/2023 06/08/2024 1 1 Specialty Diagnoses / Procedures Referred By Contac t Referred To Contact Cardiology Diagnoses Mitral valve insufficiency, unspecified etiology Procedures GALO for Interventional Guidance Aleta Lopes MD [address] [place] [address] Referral ID Status Reason Start Date Expiration Date V isits Requested Visits Authorized [id number] Pending Review 07/29/2023 07/28/2024 1 1 Specialty Diagnoses / Procedures Referred By Contac t Referred To Contact Cardiology Diagnoses Severe mitral regurgitation Procedures Transthoracic echocardiogram (TTE) complete with contrast, bubble, strain, and 3D PRN WI ECHO TTHRC R-T 2D W/WOM-MODE COMPL SPEC&COLR D WI TTE W OR WO FOL WCON,DOPPLER Josephine Lees, [employer] [address] [place] [address] Referral ID Status Reason Start Date Expiration Date V isits Requested Visits Authorized [id number] Pending Review 08/05/2023 08/04/2024 1 1 Referral ID Status Reason Start Date Expiration Date Visits Re quested Visits Authorized [id number] Closed 08/05/2023 08/04/2024 1 1 Specialty Diagnoses / Procedures Referred By Contac t Referred To Contact Radiology Diagnoses SDH (subdural hematoma) (HCC) Procedures CT head wo IV contrast Keshav Del Castillo, [employer] [address] [place] [address] Referral ID Status Reason Start Date Expiration Date V isits Requested Visits Authorized [id number] Authorized 01/06/2024 01/05/2025 1 1 Referral ID Status Reason Start Date Expiration Date Visits Re quested Visits Authorized [id number] Closed 01/06/2024 01/05/2025 1 1 Specialty Diagnoses / Procedures Referred By Contac t Referred To Contact Physical Therapy Diagnoses Chronic bilateral low back pain without sciatica Procedures [place] OFFICE/OUTPATIENT NEW HIGH MDM 60 MINUTES Ventura Reid MD [address] [place] [address] Referral ID Status Reason Start Date Expiration Date Visits Requested Visits Authorized [id number] Pending Review Eval and Treat 01/22/2024 07/20/2024 99 99 Specialty Diagnoses / Procedures Referred By Contac t Referred To Contact Radiology Diagnoses Postoperative visit Subdural hematoma (HCC) Anticoagulation adequate Procedures CT head wo IV contrast Delbert Stover MD [address] [place] [address] Referral ID Status Reason Start Date Expiration Date V isits Requested Visits Authorized [id number] Pending Review 02/23/2024 02/22/2025 1 1 Additional Source Comments (unrecognized sect ion and content) No Status Records FoundNo Status Records FoundNo Status Records Found INFORMATION SOURCE (unrecogn ized section and content) DATE CREATED AUTHOR 11/23/2017 [facility] [facility] DATE CREATED AUTHOR AUTHOR'S ORGANIZ ATION 10/03/2023 [facility] ([place]) DATE CREATED AUTHOR AUTHOR'S ORGANIZ ATION 03/05/2024 [employer] [facility] Source Comments (unrecognize d section and content) In the event this informatio n is protected by the Federal Confidentiality of Alcohol and Drug Abuse Patient Records regulations: The Federal rules restrict any use of the information to criminally investigate or prosecute any alcohol or drug abuse patient.[facility] Reason for Visit (unrecogniz ed section and content) Reason Comments Refill Request Reason Comments New Patient Congestive Heart Failure Hypertension Atrial Fibrillation Post-op Valve Replacement Specialty Diagnoses / Procedures Referred By Contac t Referred To Contact Cardiology Diagnoses Presence of xenogenic heart valve,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 Procedures [place] OFFICE/OP CONSLTJ NEW/EST PT MOD MDM 40 MINUTES [facility] [address] [place] [address] Lance Hobbs MD [address] [facility] [address] [address] Referral ID Status Reason Start Date Expiration Date Visits Re quested Visits Authorized [id number] Closed 03/23/2023 09/19/2023 1 1 Reason Onset Date Comments Patient Education 04/30/2023 [facility] Specialty Diagnoses / Procedures Referred By Wilbert t Referred To Contact Diagnoses 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) 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) [I50.810] Procedures Right heart cath Lance Hobbs MD [address] [address] [facility] Cardiac Cath/Ep Lab [address] [place] [phone] Referral ID Status Reason Start Date Expiration Date Visits Re quested Visits Authorized [id number] 1 1 Reason Onset Date Comments Med Management 05/25/2023 Reason Onset Date Comments Med Management 05/27/2023 Jardiance Maame gilman Specialty Diagnoses / Procedures Referred By Wilbert t Referred To Contact Cardiology Diagnoses 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) Mitral valve stenosis and aortic valve stenosis Procedures Transesophageal echocardiogram (GALO) with contrast and 3D PRN WI ECHO TRANSESOPHAG R-T 2D W/PRB IMG ACQUISJ I&R WI DOP ECHOCARD COLOR FLOW VELOCITY MAPPING WI DOPPLER ECHOCARD PULSE WAVE W/SPECTRAL DISPLAY Lance Hobbs MD [address] [facility] [address] [address] Referral ID Status Reason Start Date Expiration Date Visits Re quested Visits Authorized [id number] Closed 05/25/2023 05/24/2024 1 1 Reason Comments Cardiac Valve Problem Reason Comments Cardiac Valve Problem Specialty Diagnoses / Procedures Referred By Contac t Referred To Contact Radiology Diagnoses Perivalvular leak of prosthetic heart valve, initial encounter Nonrheumatic mitral valve disorder, unspecified Procedures CT heart structure morphology w IV contrast Selena Leonardo, [employer] [address] [place] [address] Referral ID Status Reason Start Date Expiration Date Visits Re quested Visits Authorized [id number] Closed 06/09/2023 06/08/2024 1 1 Reason Comments Cardiac Valve Problem 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 Specialty Diagnoses / Procedures Referred By Contac t Referred To Contact Diagnoses Prosthetic cardiac paravalvular leak, initial encounter Prosthetic cardiac paravalvular leak, 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] Procedures paravalvular leak closure, mitral valve Ericka Nicholas MD [address] [place] [address] [address] [place] [address] Referral ID Status Reason Start Date Expiration Date Visits Re quested Visits Authorized [id number] 1 1 Reason Comments Hospital Follow-up S/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, hospital follow up Reason Onset Date Comments Procedure 05/27/2023 Reason Comments Cardiac Valve Problem Dyspnea Specialty Diagnoses / Procedures Referred By Contac t Referred To Contact Cardiology Diagnoses Severe mitral regurgitation Procedures Transthoracic echocardiogram (TTE) complete with contrast, bubble, strain, and 3D PRN WI ECHO TTHRC R-T 2D W/WOM-MODE COMPL SPEC&COLR D WI TTE W OR WO FOL WCON,DOPPLER Josephine Lees, [employer] [address] [place] [address] Referral ID Status Reason Start Date Expiration Date Visits Re quested Visits Authorized [id number] Closed 08/05/2023 08/04/2024 1 1 Reason Comments Shortness of Breath Reason Comments Med Refill Reason Comments Follow-up Congestive Heart Failure Atrial Fibrillation Hypertension Specialty Diagnoses / Procedures Referred By Contac t Referred To Contact Diagnoses SDH (subdural hematoma) (HCC) sdh Procedures - Wero Ingram MD [address] [place] [address] [place] [address] Referral ID Status Reason Start Date Expiration Date Visits Re quested Visits Authorized [id number] 1 1 Specialty Diagnoses / Procedures Referred By Wilbert rebolledo Referred To Contact Radiology Diagnoses SDH (subdural hematoma) (HCC) Procedures CT head wo IV contrast Keshav Del Castillo, [employer] [address] [place] [address] Referral ID Status Reason Start Date Expiration Date Visits Re quested Visits Authorized [id number] Closed 01/06/2024 01/05/2025 1 1 Reason Comments Follow-up Hosp fu Reason Comments Hospital Follow-up Follow-up Reason Comments Follow-up Congestive Heart Failure Hypertension Atrial Fibrillation Reason Onset Date Comments Reschedule 02/26/2024 Reason Onset Date Comments Appointment Request 03/04/2024 6 week fu Care Teams (unrecognized sec tion and content) Manager Bar Relationship Specialty Start Date End Date Arthur Carvalho MD [address] [place] [address] PCP - General 11/19/17 Manager Bar Relationship Specialty Start Date End Date Arthur Carvalho MD [address] [place], [place] [id number] PCP - General 11/19/17 Manager Bar Relationship Specialty Start Date End Date Arthur Carvalho MD [address] [place] [address] PCP - General 11/19/17 Manager Bar Relationship Specialty Start Date End Date Arthur Carvalho MD [address] [place] [address] PCP - General 11/19/17 Manager Bar Relationship Specialty Start Date End Date Arthur Carvalho MD [address] [place] [address] PCP - General 11/19/17 Manager Bar Relationship Specialty Start Date End Date Arthur Carvalho MD [address] [place] [address] PCP - General 11/19/17 Manager Bar Relationship Specialty Start Date End Date Arthur Carvalho MD [address] [place] [address] PCP - General 11/19/17 Manager Bar Relationship Specialty Start Date End Date Arthur Carvalho MD [address] [place] [address] PCP - General 11/19/17 Manager Bar Relationship Specialty Start Date End Date Arthur Carvalho MD [address] [place] [address] PCP - General 11/19/17 Manager Bar Relationship Specialty Start Date End Date Arthur Carvalho MD [address] [place] [address] PCP - General 11/19/17 Manager Bar Relationship Specialty Start Date End Date Arthur Carvalho MD [address] [place] [address] PCP - General 11/19/17 Manager Bar Relationship Specialty Start Date End Date Arthur Carvalho MD [address] [place] [address] PCP - General 11/19/17 Manager Bar Relationship Specialty Start Date End Date Arthur Carvalho MD [address] [place] [address] PCP - General 11/19/17 Manager Bar Relationship Specialty Start Date End Date Arthur Carvalho MD [address] [place] [address] PCP - General 11/19/17 Manager Bar Relationship Specialty Start Date End Date Arthur Carvalho MD [address] [place] [address] PCP - General 11/19/17 Manager Bar Relationship Specialty Start Date End Date Arthur Carvalho MD [address] [place] [address] PCP - General 11/19/17 Manager Bar Relationship Specialty Start Date End Date Arthur Carvalho MD [address] [place] [address] PCP - General 11/19/17 Manager Bar Relationship Specialty Start Date End Date Arthur Carvalho MD [address] [place] [address] PCP - General 11/19/17 Manager Bar Relationship Specialty Start Date End Date Arthur Carvalho MD [address] [place] [address] PCP - General 11/19/17 Manager Bar Relationship Specialty Start Date End Date Arthur Carvalho MD [address] [place] [address] PCP - General 11/19/17 Manager Bar Relationship Specialty Start Date End Date Arthur Carvalho MD [address] [place] [address] PCP - General 11/19/17 Manager Bar Relationship Specialty Start Date End Date Arthur Carvalho MD [address] [place] [address] PCP - General 11/19/17 Manager Bar Relationship Specialty Start Date End Date Arthur Carvalho MD [address] [place] [address] PCP - General 11/19/17 Manager Bar Relationship Specialty Start Date End Date Arthur Carvalho MD [address] [place] [address] PCP - General 11/19/17 Manager Bar Relationship Specialty Start Date End Date Arthur Carvalho MD [address] [place] [address] PCP - General 11/19/17 Manager Bar Relationship Specialty Start Date End Date Arthur Carvalho MD [address] [place] [address] PCP - General 11/19/17 Manager Bar Relationship Specialty Start Date End Date Arthur Carvalho MD [address] [place] [address] PCP - General 11/19/17 Manager Bar Relationship Specialty Start Date End Date Arthur Carvalho MD [address] [place] [address] PCP - General 11/19/17 Manager Bar Relationship Specialty Start Date End Date Arthur Carvalho MD [address] [place], [place] [id number] PCP - General 11/19/17 Manager Bar Relationship Specialty Start Date End Date Arthur Carvalho MD [address] [place] [address] PCP General 11/19/17 Manager Bar Relationship Specialty Start Date End Date Arthur Carvalho MD [address] [place] [address] PCP - General 11/19/17 Manager Bar Relationship Specialty Start Date End Date Arthur Carvalho MD [address] [place], [place] [address] PCP General 11/19/17 PRN Active and Recently Administ ered Medications (unrecognized section and content) Medication Order 05/23/2023 05/24/2023 05/25/2023 fentaNYL (Sublimaze) injection (CANCELED) IntraVENous, As needed, Starting on Thu05/25/23 at 0916, Intraprocedure 0916 (Given - Provid er: Kinza Bui RN) lidocaine (Xylocaine) 1 % injection (CANCELED) As needed, Starting on Thu05/25/23 at 0915, Intraprocedure 0915 (Given - Provid er: Lance Hobbs MD) midazolam (Versed) injection (CANCELED) IntraVENous, As needed, Starting on Thu05/25/23 at 0916, Intraprocedure 0916 (Given - Provid er: Kinza Bui RN) Scheduled Medication Order 07/28/2023 07/29/2023 07/30/2023 aspirin EC tablet 81 mg (COMPLETED) 81 mg, Oral, Once, On Leonie 07/30/23 at 0000, For 1 dose, Recovery & On Unit, Do not crush, chew, or split. 2212 (Given - Provider: Gemini Shah RN) 2300 (Due - Provider: Gemini Shah RN) aspirin EC tablet 81 mg 81 mg, Oral, Daily, First dose on Leonie 07/30/23 at 0900, Do not crush, chew, or split. 0919 (Given - Provid er: Chuck Oliva RN) atorvastatin (Lipitor) tablet 20 mg 20 mg, Oral, Daily, First dose on Thu07/29/23 at 1245 1444 (Given - Provider: Nima Hong RN) 0835 (Given - Provider: Chuck Oliva RN) buPROPion SR (Wellbutrin SR) 12 hr tablet 150 mg 150 mg, Oral, 2 times daily, First dose (after last modification) on Thu07/29/23 at 1345, Do not crush, chew, or split. 1444 (Given - Provider: Nima Hong RN)2212 (Given - Provider: Gemini Shah RN) 0837 (Given - Provider: Chuck Oliva RN) ceFAZolin in dextrose 4% (Ancef) IVPB 2,000 mg (COMPLETED) 2,000 mg, IntraVENous, Administer over 30 Minutes, Once, On Thu07/29/23 at 0615, For 1 dose, Preprocedure, Administer within 1 hour prior to incision. Recommend to repeat in 3-4 hours after initial dose if still intra-op. premix bag, Suspected Indication (Select all that apply): Surgical Prophylaxis 08 (Given - Provider: Austen Arauz, POULTRY HATCHERY SUPERVISOR - DECK ENGINE OPERATOR) dapagliflozin (Farxiga) tablet 10 mg 10 mg, Oral, Daily, First dose on Leonie 07/30/23 at 0900 0835 (Given - Provid er: Chuck Oliva RN) furosemide (Lasix) tablet 40 mg 40 mg, Oral, Daily, First dose on Thu07/30/23 at 0900 0835 (Given - Provid er: Chuck Oliva RN) levothyroxine (Synthroid, Levoxyl) tablet 100 mcg 100 mcg, Oral, Daily before breakfast, First dose on Leonie 07/30/23 at 0700, Tube feeding (TF) interaction, obtain physician order to manage, recommend holding TF for 30 minutes before and after dose. 0634 (Given - Provid er: García Stapleton RN) metoprolol succinate XL (Toprol-XL) 24 hr tablet 50 mg 50 mg, Oral, Daily, First dose on Thu07/29/23 at 1245, Do not crush or chew. 1444 (Given - Provider: Nima Hong RN) 0835 (Given - Provider: Chuck Oliva RN) spironolactone (Aldactone) tablet 25 mg 25 mg, Oral, Daily, First dose on Thu07/30/23 at 0900 0834 (Given - Provid er: Chuck Oliva RN) tamsulosin (Flomax) 24 hr capsule 0.4 mg 0.4 mg, Oral, Daily, First dose on Thu07/29/23 at 1245, Do not crush, chew, or split. 1444 (Given - Provider: Nima oHng RN) 0835 (Given - Provider: Chuck Oliva RN) traZODone (Desyrel) tablet 300 mg 300 mg, Oral, Nightly, First dose on Thu07/29/23 at 2100 2212 (Given - Provider: Gemini Shah RN) warfarin (Coumadin) tablet 2.5 mg 2.5 mg, Oral, Daily, First dose on Thu07/29/23 at 1800 1848 (Given - Provider: Nima Hong RN) Continuous Medication Order 07/28/2023 07/29/2023 07/30/2023 sodium chloride 0.9 % infusion (CANCELED) 50 mL/hr, IntraVENous, Continuous, Starting on Thu07/29/23 at 0615, Preprocedure, Upon admission to sameday - please start iv if patient does not have iv access. 06 (New Bag - Provider: Loyda Hanley RN) PRN Medication Order 07/28/2023 07/29/2023 07/30/2023 acetaminophen (Tylenol) tablet 650 mg 650 mg, Oral, Every 4 hours PRN, mild pain (1-3), Fever > 100.5 F (38 C), Starting on Thu07/29/23 at 1252, Recovery & On Unit, Maximum dose of acetaminophen is 4000 mg from all sources in 24 hours. albuterol 108 (90 Base) MCG/ACT inhaler 2 puff 2 puff, Inhalation, Every 4 hours PRN, wheezing, Starting on Thu07/29/23 at 1242, *Common* heparin 1,000 Units in sodium chloride 0.9 % 500 mL OR irrigation (CANCELED) As needed, Starting on Thu07/29/23 at 0808, Intraprocedure 0808 (Given - Provider: Ericka Nicholas MD) HYDROcodone-acetaminophen ([place]) 5-325 MG per tablet 1 tablet 1 tablet, Oral, Every 6 hours PRN, moderate pain (4-6), Starting on Thu07/29/23 at 1241, Maximum dose of acetaminophen is 4000 mg from all sources in 24 hours. 1331 (Given - Provider: Nima Hong RN)1949 (Given - Provider: Gemini Shah, CHAZ) 0204 (Given - Provider: Gemini Shah, CHAZ)0823 (Given - Provider: Rachel Herndon, CHAZ) naloxone (Narcan) injection 0.4 mg 0.4 mg, IntraVENous, Every 5 min PRN, opioid reversal, respiratory depression, Starting on Thu07/29/23 at 1243, +++ For RR <10, pinpoint pupils, over sedation for opioid reversal - MUST notify director of manufacturing operations provider immediately after first dose, may give IM or SQ if no IV access +++ sodium chloride 0.9 % infusion (CANCELED) 5-250 mL/hr, IntraVENous, PRN, if patient receiving piggyback infusions and maintenance fluids are not ordered OR KVO fluids to protect IV site / prevent frequent line interruptions / long duration, Starting on Thu07/29/23 at 0610, Preprocedure, For piggyback infusion, administer at same rate as piggyback for a total of 25 mL. Enter 25 mL into dose field and piggyback rate into rate field of order. If piggyback is infusing at a rate less than 100 mL/hr, enter 25 mL into dose field and 100 mL/hr into rate field of order. For KVO fluids, enter rate of 20 mL/hr or less into rate field of order. 0738 (New Bag - Provider: KIARA Bermudez CRNA)1153 (Anesthesia Volume Adjustment - Provider: KIARA Bermudez CRNA) tiZANidine (Zanaflex) tablet 4 mg 4 mg, Oral, 2 times daily PRN, muscle spasms, Starting on Thu07/29/23 at 1241 Scheduled Medication Order 01/05/2024 01/06/2024 01/07/2024 acetaminophen (Tylenol) tablet 1,000 mg (CANCELED) 1,000 mg, Oral, Every 6 hours scheduled (4 times per day), First dose (after last modification) on 01/02/24 at 1000, Maximum dose of acetaminophen is 4000 mg from all sources in 24 hours. 0006 (Given - Provider: Chrissy Harris RN)0623 (Given - Provider: Chrissy Harris RN)1202 (Given - Provider: Cynthia Encinas, CHAZ)1839 (Given - Provider: Cynthia Encinas, CHAZ) 0023 (Given - Provider: Katlyn Jang RN)0818 (Given - Provider: Melba José RN)1346 (Given - Provider: Tatianna Chappell, CHAZ)1738 (Given - Provider: Tatianna Chappell, CHAZ)2335 (Given - Provider: Talya Thapa, CHAZ) 0507 (Given - Provider: Talya Thapa RN) acetaminophen (Tylenol) tablet 650 mg 650 mg, Oral, Every 6 hours scheduled (4 times per day), First dose (after last modification) on Leonie 01/07/24 at 1200, Maximum dose of acetaminophen is 4000 mg from all sources in 24 hours. 1200 (Not Given - Provider: Lara Tovar RN - Reason: Patient/family refused) atorvastatin (Lipitor) tablet 40 mg 40 mg, Oral, Nightly, First dose on Thu01/01/24 at 2100 2100 (Given - Provider: Katlyn Jang RN) 2016 (Given - Provider: Talya Thapa RN) buPROPion SR (Wellbutrin SR) 12 hr tablet 150 mg (CANCELED) 150 mg, Oral, 2 times daily, First dose on Thu01/01/24 at 2100, Do not crush, chew, or split. 0820 (Given - Provider: Cynthia Encinas RN) citalopram (CeleXA) tablet 20 mg 20 mg, Oral, Daily, First dose on Thu01/01/24 at 1800 0820 (Given - Provider: Cynthia Encinas RN) 0820 (Given - Provider: Melba José, CHAZ) 0839 (Given - Provider: Lara Tovar, CHAZ) dapagliflozin (Farxiga) tablet 10 mg 10 mg, Oral, Daily, First dose on Thu01/04/24 at 1145, Indications: Heart Failure 0823 (Given - Provider: Cynthia Encinas RN) 0820 (Given - Provider: Melba José, CHAZ) 0839 (Given - Provider: Lara Tovar, CHAZ) docusate sodium (Colace) capsule 100 mg 100 mg, Oral, 2 times daily, First dose on Thu01/04/24 at 0900 0820 (Given - Provider: Cynthia Encinas RN)2100 (Given - Provider: Katlyn Jang RN) 0819 (Given - Provider: Melba José, CHAZ)2016 (Given - Provider: Talya Thapa RN) 0839 (Not Given - Provider: Lara Tovar RN - Reason: Patient/family refused) doxepin (SINEquan) capsule 150 mg 150 mg, Oral, Nightly, First dose on Thu01/01/24 at 2100 2100 (Given - Provider: Katlyn Jang, CHAZ) 2333 (Given - Provider: Talya Thapa, CHAZ) enoxaparin (Lovenox) syringe 30 mg (COMPLETED) 30 mg, SubCUTAneous, Every 12 hours, First dose on Thu01/04/24 at 0900, For 4 doses, Indication of Use: Prophylaxis-DVT/PE, Indications: Prophylaxis of Venous Thromboembolism 0820 (Given - Provider: Cynthia Encinas RN)210 (Given - Provider: Katlyn Jang RN) levothyroxine (Synthroid, Levoxyl) tablet 100 mcg 100 mcg, Oral, Daily before breakfast, First dose on Thu01/02/24 at 0600, Tube feeding (TF) interaction, obtain physician order to manage, recommend holding TF for 30 minutes before and after dose. 0623 (Given - Provider: Chrissy Harris RN) 0558 (Given - Provider: Katlyn Jang, RN) 0507 (Given - Provider: Talya Thapa, RN) metoprolol succinate XL (Toprol-XL) 24 hr tablet 50 mg 50 mg, Oral, Daily, First dose on Thu01/02/24 at 0900, Do not crush or chew. 0822 (Given - Provider: Cynthia Encinas, RN) 0819 (Given - Provider: Melba José, CHAZ) 0839 (Given - Provider: Lara Tovar, CHAZ) mupirocin (Bactroban) 2 % ointment 1 Application (CANCELED) 1 Application, Nasal, 2 times daily, First dose on Thu01/01/24 at 2100, For 5 days, Indications: MRSA Nasal Decolonization 824 (Given - Provider: Cynthia Encinas, CHAZ)2100 (Given - Provider: Katlyn Jang, CHAZ) sennosides (Senokot) tablet 8.6 mg 8.6 mg (1 tablet), Oral, Nightly, First dose on Thu01/04/24 at 2100 2100 (Given - Provider: Katlyn Jang, RN) 2015 (Given - Provider: Talya Thapa, RN) spironolactone (Aldactone) tablet 25 mg 25 mg, Oral, Daily, First dose on Thu01/04/24 at 1145 0820 (Given - Provider: Cynthia Encinas RN) 0819 (Given - Provider: Melba José, CHAZ) 0839 (Given - Provider: Lara Tovar, CHAZ) tamsulosin (Flomax) 24 hr capsule 0.4 mg 0.4 mg, Oral, Daily, First dose on Thu01/01/24 at 1800, Do not crush, chew, or split. 0820 (Given - Provider: Cynthia Encinas, CHAZ) 0818 (Given - Provider: Melba José, CHAZ) 0839 (Given - Provider: Lara Tovar, CHAZ) traZODone (Desyrel) tablet 200 mg 200 mg, Oral, Nightly, First dose on Thu01/01/24 at 2100 2100 (Given - Provider: Katlyn Jang, RN) 2014 (Given - Provider: Talya Thapa RN) Continuous Medication Order 01/05/2024 01/06/2024 01/07/2024 sodium chloride 0.9 % infusion 75 mL/hr, IntraVENous, Continuous, Starting on Thu01/06/24 at 0000 0024 (New Bag - Provider: Katlyn Jang RN)1454 (New Bag - Provider: Tatianna Chappell, CHAZ) 1215 (Stopped - Provider: Lara Tovar, CHAZ - Comment: pt discharged home) PRN Medication Order 01/05/2024 01/06/2024 01/07/2024 albuterol 108 (90 Base) MCG/ACT inhaler 2 puff 2 puff, Inhalation, Every 4 hours PRN, wheezing, Starting on Thu01/01/24 at 1758 butalbital-acetaminophen -caffeine 50-325-40 MG per tablet 1 tablet 1 tablet, Oral, Every 4 hours PRN, headaches, Starting on Thu01/07/24 at 0949 1114 (Given - Provider: Lara Tovar, CHAZ) dextrose 5 % infusion 100 mL/hr, IntraVENous, PRN, Blood sugar less than 70mg/dL, Starting on Thu01/01/24 at 1756, Start infusion following administration of dextrose 50% or glucagon. dextrose 50 % solution 12.5 g 12.5 g, IntraVENous, PRN, low blood sugar, Blood glucose less than 70 mg/dL and patient NOT ALERT or NPO., Starting on Thu01/01/24 at 1756, If patient does not respond within 5 minutes, repeat dose x1. Start D5W at 100 mL/hour until ordering provider can be reached. Repeat blood glucose in 15 minutes. If blood glucose is less than 70 mg/dL, repeat treatment and recheck blood glucose in 15 minutes x2. If using Glucostabilizer, dose as instructed per system. furosemide (Lasix) tablet 40 mg 40 mg, Oral, Daily PRN, take 1x daily with weight gain (>3# in a day/5# in a week), shortness of breath, swelling, Starting on Thu01/01/24 at 1757, On hold since Thu01/01/2024 at 1758 until manually unheld 1508 (Unheld by provider - Provider: Automatic Discharge Provider) glucagon (human recombinant) injection 1 mg 1 mg, IntraMUSCular, PRN, low blood sugar, Blood glucose less than 70 mg/dL and patient NOT ALERT or NPO and does not have IV access., Starting on Thu01/01/24 at 1756, After administration, attempt intravenous access and start D5W at 100 mL/hr. Repeat blood glucose in 15 minutes x2 and notify provider. glucose oral gel 15 g 15 g, Oral, As needed, low blood sugar, Starting on Thu01/01/24 at 1756, If blood glucose less than 50 mg/dL and patient ALERT and NOT NPO, give 2 tubes glucose gel. If blood glucose less than 70 mg/dL and patient ALERT and NOT NPO, give 1 tube glucose gel. Repeat blood glucose in 15 minutes. If blood glucose is less than 70 mg/dL, repeat treatment and recheck blood glucose in 15 minutes x2 and notify provider. HYDROmorphone (Dilaudid) injection 0.5 mg (CANCELED) 0.5 mg, IntraVENous, Every 4 hours PRN, breakthrough pain, Starting on Thu01/05/24 at 0957, If oral and IV narcotics ordered, use oral first and only use IV if oral is ineffective or cannot take oral. Do Not give oral and IV within 1 hour of each other unless specifically ordered. 1211 (Given - Provider: Cynthia Encinas RN)1726 (Given - Provider: Cynthia Encinas RN)2101 (Given - Provider: Katlyn Jang RN) 0150 (Given - Provider: Katlyn Jang RN)0817 (Given - Provider: Melba José RN)1346 (Given - Provider: Tatianna Chappell, CHAZ)1738 (Given - Provider: Tatianna Chappell, CHAZ) HYDROmorphone (Dilaudid) injection 0.5 mg (CANCELED) 0.5 mg, IntraVENous, Every 2 hour PRN, breakthrough pain, Starting on Thu01/06/24 at 1742, If oral and IV narcotics ordered, use oral first and only use IV if oral is ineffective or cannot take oral. Do Not give oral and IV within 1 hour of each other unless specifically ordered. 213 (Given - Provider: Talya [place], RN)2340 (Given - Provider: Talya Thapa, RN) 0507 (Given - Provider: Talya Thapa RN) iopamidol (Isovue-300) 61 % injection 110 mL (COMPLETED) 110 mL, Intra-arTERial, IMG once PRN, contrast, Starting on Thu01/06/24 at 1245, For 1 dose 1246 (Given - Provider: Lauren Pillai, RT (R)) lidocaine PF (Xylocaine) 1 % injection (CANCELED) As needed, Starting on Thu01/06/24 at 1049, Intraprocedure 1049 (Given - Provider: Delbert Stover MD - Comment: Right Groin) naloxone (Narcan) injection 0.4 mg 0.4 mg, IntraVENous, Every 5 min PRN, opioid reversal, respiratory depression, Starting on Thu01/01/24 at 1759, +++ For RR <10, pinpoint pupils, over sedation for opioid reversal - MUST notify director of manufacturing operations provider immediately after first dose, may give IM or SQ if no IV access +++ ondansetron (Zofran) injection 4 mg(Linked Group 1) 4 mg, IntraVENous, Every 6 hours PRN, nausea, vomiting, Starting on Thu01/01/24 at 1749, 1st Line. Give IV if patient is unable to take orally. If inadequate response within 60 minutes, proceed to next-line agent or contact provider if no further options ordered. ondansetron ODT (Zofran-ODT) disintegrating tablet 4 mg(Linked Group 1) 4 mg, Oral, Every 8 hours PRN, nausea, vomiting, Starting on Thu01/01/24 at 1749, 1st Line. If inadequate response within 60 minutes, proceed to next-line agent or contact provider if no further options ordered. Patient should allow tablet to dissolve on tongue. Do not remove from blister pack until just before administering. oxyCODONE (Roxicodone) immediate release tablet 10 mg(Linked Group 2) 10 mg, Oral, Every 4 hours PRN, severe pain (7-10), Starting on Thu01/02/24 at 0916 0006 (Given - Provider: Chrissy Harris RN)0623 (Given - Provider: Chrissy Harris RN)1022 (Given - Provider: Cynthia Encinas RN)1618 (Given - Provider: Cynthia Encinas RN) 0022 (Given - Provider: Katlyn Jang RN)0558 (Given - Provider: Katlyn Jang RN)1558 (Given - Provider: Tatianna Chappell, RN)2015 (Given - Provider: Talya Thapa RN) 0200 (Given - Provider: Talya Thapa, RN)0737 (Given - Provider: Lara Tovar, CHAZ) oxyCODONE (Roxicodone) immediate release tablet 5 mg(Linked Group 2) 5 mg, Oral, Every 4 hours PRN, moderate pain (4-6), Starting on Thu01/02/24 at 0916 0006 (See Alternative - Provider: Chrissy Harris RN)0623 (See Alternative - Provider: Chrissy Harris RN)1022 (See Alternative - Provider: Cynthia Encinas RN)1618 (See Alternative - Provider: Cynthia Encinas RN) 0022 (See Alternative - Provider: Katlyn Jang RN)0558 (See Alternative - Provider: Katlyn Jang RN)1558 (See Alternative - Provider: Tatianna Chappell, CHAZ)2015 (See Alternative - Provider: Talya Thapa RN) 0200 (See Alternative - Provider: Talya Thapa RN)0737 (See Alternative - Provider: Lara Tovar, CHAZ) polyethylene glycol (PEG) 3350 (Miralax) packet 17 g 17 g, Oral, Daily PRN, constipation, Starting on Thu01/01/24 at 1749, 1st line for treatment of constipation - give scheduled if no bowel movement in past 24 hours. sodium chloride 0.9% (NS) flush 30 mL 30 mL, IntraVENous, PRN, line care, Starting on Thu01/01/24 at 1749, After every IV line use sodium chloride 0.9% (NS) flush 30 mL 30 mL, IntraVENous, PRN, line care, Starting on Thu01/01/24 at 1749 Linked Groups Order Group 1: ondansetron ODT (Zofran-ODT) disintegrating tablet 4 mgJump to med 4 mg, Oral, Every 8 hours PRN, nausea, vomiting, Starting on Thu01/01/24 at 1749, 1st Line. If inadequate response within 60 minutes, proceed to next-line agent or contact provider if no further options ordered. Patient should allow tablet to dissolve on tongue. Do not remove from blister pack until just before administering. Or ondansetron (Zofran) injection 4 mgJump to med 4 mg, IntraVENous, Every 6 hours PRN, nausea, vomiting, Starting on 01/01/24 at 1749, 1st Line. Give IV if patient is unable to take orally. If inadequate response within 60 minutes, proceed to next-line agent or contact provider if no further options ordered. Group 2: oxyCODONE (Roxicodone) immediate release tablet 5 mgJump to med 5 mg, Oral, Every 4 hours PRN, moderate pain (4-6), Starting on 01/02/24 at 0916 Or oxyCODONE (Roxicodone) immediate release tablet 10 mgJump to med 10 mg, Oral, Every 4 hours PRN, severe pain (7-10), Starting on 01/02/24 at 0916 FOR RECORDS PERTAINING TO PATIENTS WHO ARE OR HAVE BEEN ENROLLED IN A CHEMICAL DEPENDENCY/SUBSTANCEABUSE PROGRAM, SOME INFORMATION MAY BE OMITTED. This clinical summary was aggregated from multiple sources. Caution should be exercised in using it in the provision of clinical care. This summary normalizes information from multiple sources, and as a consequence, information in this document may materially change the coding, format and clinical context of patient data. In addition, data may be omitted in some cases. CLINICAL DECISIONS SHOULD BE BASED ON THE PRIMARY CLINICAL RECORDS. [employer] [facility]. provides no warranty or guarantee of the accuracy or completeness of information in this document.
[2024-03-07 12:07] LABS: Absolute Lymphocyte Count 1.15 X10^3/uL (0.83-4.51); Absolute Neutrophil Count 2.7 X10^3/uL (2.0-7.7); Basophil# 0.02 X10^3/uL; Basophil% 0.4 % (0-1); Eosinophils% 4.1 % (0-5); Hematocrit 41.3 % (40-54); Lymphocyte # 1.15 X10^3/ul (0.83-4.51); Lymphocyte % 23.7 % (19-41); Mean Corp Hgb Conc 31.5 g/dL (32-36); Mean Corpuscular Hgb 28.1 pg (27.0-32.0); Mean Corpuscular Volume 89.2 fL (80-94); Monocyte# 0.74 X10^3/uL; Monocyte% 15.3 % (0-10); NRBC Flagged by Analyzer 0 % (0-5); Neutrophil % 55.7 % (47-70); Platelet Count 132 K/mm3 (150-450); RBC Distribution Width CV 15.9 % (11.6-14.6); RBC Distribution Width SD 52.3 fl (35.1-43.9); Red Blood Count 4.63 M/mm3 (4.6-6.2); White Blood Count 4.9 K/mm3 (4.4-11.0)
[2024-03-07 12:47] LABS: Vitamin D,25 Hydroxy 76.9 ng/mL
[2024-03-07 12:50] LABS: ALB/GLOB Ratio 0.9 RATIO (0.9-2.4); AST(SGOT) 33 U/L (15-37); Alanine Aminotransfer ALT/SGPT 37 U/L (16-61); Albumin, Serum 3.6 g/dL (3.2-5.0); Alkaline Phosphatase 108 U/L (45-117); Anion Gap 4 (5-15); BUN 23 mg/dL (7-18); BUN/Creat Ratio 23.5 RATIO (10-20); Calcium,Total 9.4 mg/dL (8.5-10.1); Chloride 104 mmol/L (98-107); Creatinine, Serum 0.98 mg/dL (0.70-1.30); EST Glomerular Filtration Rate 81 mL/min (>60); Est Glom Filt Rate - Afr Amer 98 mL/min (>60); Globulin 3.9 g/dL (2.2-4.2); Glucose 91 mg/dL (74-106); PSA,Total - Annual Screen 0.18 ng/mL (0.00-4.00); Potassium 4.4 mmol/L (3.5-5.1); Protein, Total 7.5 g/dL (6.4-8.2); Sodium Level 136 mmol/L (136-145)
== END | disposition home or self-care (01) ==
LOC: POLAB3 11:41
PROVIDERS: PCP Family Medicine Geriatric Medicine; Visit Provider Family Medicine Geriatric Medicine
DX: Z12.5 Encounter for screening for malignant neoplasm of prostate (principal); R53.83 Other fatigue; E55.9 Vitamin D deficiency, unspecified; E03.9 Hypothyroidism, unspecified
CPT/HCPCS: 36415; 80053; 82306; 84153; 84443; 85025; G0103

== ENCOUNTER → 2024-03-14 | Outpatient (CLI) | payer MEDICARE, BC, SELFPAY ==
--- NOTE | 2024-03-14 10:57 | CT_ITS ---
EXAM: CT LUMBAR SPINE WITHOUT INTRAVENOUS CONTRAST CLINICAL INDICATION: Radiculopathy, lumbar region TECHNIQUE: Helically acquired images were obtained of the lumbar spine without intravenous contrast. 2D reformats were reviewed. This CT exam was performed using one or more of the following dose reduction techniques: automated exposure control, adjustment of the mA and/or kV according to patient size, and/or use of iterative reconstruction technique. COMPARISON: CT lumbar spine, 04/18/2020 FINDINGS: VERTEBRAE: There is a chronic L1 superior endplate compression deformity with less than 50% vertebral body height loss unchanged since prior examination. Mild retropulsion of the posterior cortex. Multilevel facet arthrosis and endplate osteophytosis throughout the lumbar spine. Bidirectional lumbar spinal curvature. No traumatic subluxation. No discrete lytic or blastic abnormality. DISCS/SPINAL CANAL/NEURAL FORAMINA: Mild to moderate multilevel spinal canal and neural foraminal stenosis with most significant neural foraminal stenosis, severe on the right at L4-L5 and most significant spinal canal stenosis, moderate to severe at L2-L3. Multilevel intervertebral disc height loss with associated vacuum phenomenon. VASCULATURE: Vascular calcifications. Visualized abdominal aorta is not dilated. LYMPH NODES: No significant abnormality. No retroperitoneal adenopathy. STOMACH AND BOWEL: Colonic diverticulosis. OTHER FINDINGS: Mild symmetric sacroiliac joint arthrosis. CT/Spine Lumbar without Contrast IMPRESSION: 1. Chronic L1 superior endplate compression fracture. 2. Extensive degenerative changes and scoliotic curvature with mild progression of disease compared to the prior CT. Consider follow-up MRI. Electronically Signed: Kyler Lovell DO at 20:10 EDT ,
== END | disposition home or self-care (01) ==
PROVIDERS: PCP Family Medicine Geriatric Medicine; Referring Provider Anesthesiology Pain Medicine; Visit Provider Anesthesiology Pain Medicine
DX: M54.16 Radiculopathy, lumbar region (principal)
CPT/HCPCS: 72131

== ENCOUNTER → 2024-05-20 | Outpatient (CLI) | payer MEDICARE, BC, SELFPAY ==
--- NOTE | 2024-05-20 07:52 | ECHOCS_ITS ---
Reason For Study: Valve Repair Procedure This was a 2D Doppler, Color Flow transthoracic echocardiogram. Contrast injection was performed. Exam performed in department. Left Ventricle Normal LV size. Mild concentric left ventricular hypertrophy. The left ventricular ejection fraction is 55 %. No regional wall motion abnormalities noted. Right Ventricle Normal RV size. ICD or pacer leads identified within the right ventricle. Normal systolic function. Mitral Valve Mean transmitral valve gradient 4 mmHg. Bioprosthetic mitral valve. Tricuspid Valve Normal tricuspid valve. Mild (1+) tricuspid valve insufficiency. Pulmonary artery systolic pressure is 30 mmHg. An annuloplasty ring is noted in the tricuspid position. Aortic Valve Trisinus/trileaflet aortic valve. Pulmonic Valve Normal pulmonic valve. Great Vessels Normal aortic root. The pulmonary artery is normal size. Inferior vena cava collapse with sniff. Pericardium/Pleural No pericardial effusion. MMode/2D Measurements & Calculations LVIDd: 4.5 cm IVSd: 1.3 cm Ao root diam: 3.7 cm LVIDs: 2.9 cm LVPWd: 1.2 cm RVDd: 4.3 cm FS: 34.7 % LAV(MOD-bp): 41.0 ml LA A4 area: 16.2 cm2 LA dimension(2D): 4.7 cm LAV(MOD-bp) Indexed: 22.0 ml/m2 LAV(MOD-sp2): 40.3 ml LAV(MOD-sp4): 41.4 ml RA A4 area: 14.5 cm2 Time Measurements MV dec time: 0.28 sec Doppler Measurements & Calculations MV E max kenya: 143.7 cm/sec MV V2 max: 169.4 cm/sec MV P1/2t max kenya: 170.4 cm/sec MV A max kenya: 100.9 cm/sec MV max P.5 mmHg MV P1/2t: 98.4 msec MV E/A: 1.4 MV V2 mean: 90.8 cm/sec MV dec slope: 507.2 cm/sec2 MV mean P.0 mmHg MV V2 VTI: 44.7 cm MVA(P1/2t): 2.2 cm2 Ao V2 max: 119.4 cm/sec LV V1 max: 74.9 cm/sec PA V2 max: 85.7 cm/sec Ao max P.7 mmHg LV V1 max P.2 mmHg Ao V2 mean: 76.5 cm/sec LV V1 mean P.2 mmHg Ao mean P.8 mmHg LV V1 mean: 50.4 cm/sec Ao V2 VTI: 23.4 cm LV V1 VTI: 15.1 cm AV (velocity ratio): 0.65 TR max kenya: 257.4 cm/sec TR max P.5 mmHg ECHO/Echo Complete W/ Contrast Interpretation Summary Normal LV size. The left ventricular ejection fraction is 55 %. Bioprosthetic mitral valve. Mild concentric left ventricular hypertrophy. Pulmonary artery systolic pressure is 30 mmHg. Compared to the previous echocardiogram the gradients across the prosthetic linda ral valve is much improved and the tricuspid regurgitation and pulmonary pressures are also signi ficantly improved. Ordering Physician: Tacos Gibson Referring Physician: Tacos Gibson Performed By: Mauri Mendoza RCS
== END | disposition home or self-care (01) ==
LOC: CVS 07:52
PROVIDERS: PCP Family Medicine Geriatric Medicine; Referring Provider Nurse Practitioner Family; Visit Provider Nurse Practitioner Family
DX: Z95.3 Presence of xenogenic heart valve (principal)
CPT/HCPCS: 93306; Q9957; A4216; C8929

== ENCOUNTER → 2024-06-23 | Outpatient (CLI) | payer MEDICARE, BC, SELFPAY ==
[2024-06-23 13:12] LABS: Amphetamine Urine NEGATIVE (<1000 ng/mL); Barbiturate Urine VISTA NEGATIVE (< 200 ng/mL); Benzodiazepine Urine VISTA NEGATIVE (< 200 ng/mL); Cocaine Urine VISTA NEGATIVE (< 300 ng/mL); Ecstacy Urine VISTA POSITIVE (< 500 ng/mL); Methadone Urine VISTA NEGATIVE (< 300 ng/mL); PCP Urine VISTA NEGATIVE (< 25 ng/mL); THC Urine VISTA NEGATIVE (< 50 ng/mL); Vista UDS pH Range 5
== END | disposition home or self-care (01) ==
PROVIDERS: PCP Family Medicine Geriatric Medicine; Referring Provider Anesthesiology Pain Medicine; Visit Provider Anesthesiology Pain Medicine
DX: F11.20 Opioid dependence, uncomplicated (principal)
CPT/HCPCS: 80307

== ENCOUNTER → 2024-09-02 | Outpatient (CLI) | payer MEDICARE, BC, SELFPAY ==
[2024-09-02 10:40] LABS: Absolute Neutrophil Count 5.1 X10^3/uL (2.0-7.7); Basophil# 0.03 X10^3/uL; Basophil% 0.4 % (0-1); Eosinophil# 0.08 X10^3/uL; Eosinophils% 1.2 % (0-5); Hematocrit 36.6 % (40-54); Lymphocyte % 12.9 % (19-41); Mean Corp Hgb Conc 35.5 g/dL (32-36); Mean Corpuscular Hgb 31.8 pg (27.0-32.0); Mean Corpuscular Volume 89.5 fL (80-94); Mean Platelet Vol. 9.9 fl (6.2-12.0); Monocyte# 0.85 X10^3/uL; Monocyte% 12.2 % (0-10); NRBC Flagged by Analyzer 0 % (0-5); Neutrophil # 5.05 X10^3/uL (2.7-7.7); Neutrophil % 72.7 % (47-70); Platelet Count 127 K/mm3 (150-450); RBC Distribution Width SD 45.4 fl (35.1-43.9); Red Blood Count 4.09 M/mm3 (4.6-6.2)
[2024-09-02 11:48] LABS: ALB/GLOB Ratio 1.3 RATIO (0.9-2.4); AST(SGOT) 31 U/L (<=37); Alanine Aminotransfer ALT/SGPT 19 U/L (<=46); Albumin, Serum 4.1 g/dL (3.4-4.8); Alkaline Phosphatase 72 U/L (40-129); Anion Gap 12 (5-15); BUN 21 mg/dL (4-19); BUN/Creat Ratio 20.3 RATIO (10-20); Calcium,Total 9.2 mg/dL (7.6-11.0); Carbon Dioxide 23.7 mmol/L (21.0-32.0); Chloride 99 mmol/L (98-108); Creatinine, Serum 1.05 mg/dL (0.70-1.20); EST Glomerular Filtration Rate 77 (>60); Globulin 3.3 g/dL (2.2-4.2); Glucose 95 mg/dL (70-99); Potassium 4.3 mmol/L (3.3-5.1); Protein, Total 7.4 g/dL (5.9-8.4); Sodium Level 135 mmol/L (133-145); Total Bilirubin 0.84 mg/dL (0.00-1.30); Vitamin D,25 Hydroxy 73.2 ng/mL (30-100)
== END | disposition home or self-care (01) ==
LOC: LAB 09:38
PROVIDERS: PCP Family Medicine Geriatric Medicine; Referring Provider Family Medicine Geriatric Medicine; Visit Provider Family Medicine Geriatric Medicine
DX: R53.83 Other fatigue (principal); E55.9 Vitamin D deficiency, unspecified
CPT/HCPCS: 36415; 80053; 82306; 84443; 85025

== ENCOUNTER → 2025-03-10 | Outpatient (CLI) | payer MEDICARE, BC, SELFPAY ==
[2025-03-10 09:12] LABS: Hematocrit 39.0 % (40-54); Hemoglobin 13.3 g/dL (13.0-16.5); Immature Granulocytes Count 0.060 X10^3/uL (0.0-0.0); Mean Corp Hgb Conc 34.1 g/dL (32-36); Mean Corpuscular Volume 90.9 fL (80-94); Mean Platelet Vol. 10.3 fl (6.2-12.0); NRBC Flagged by Analyzer 0 % (0-5); Platelet Count 144 K/mm3 (150-450); RBC Distribution Width CV 13.0 % (11.6-14.6); RBC Distribution Width SD 42.5 fl (35.1-43.9); Red Blood Count 4.29 M/mm3 (4.6-6.2); White Blood Count 6.2 K/mm3 (4.4-11.0)
[2025-03-10 09:51] LABS: AST(SGOT) 46 U/L (<=37); Alanine Aminotransfer ALT/SGPT 29 U/L (<=46); Albumin, Serum 4.1 g/dL (3.4-4.8); Alkaline Phosphatase 68 U/L (40-129); Anion Gap 8 (5-15); BUN 15 mg/dL (4-19); BUN/Creat Ratio 11.6 RATIO (10-20); Calcium,Total 9.6 mg/dL (7.6-11.0); Carbon Dioxide 27.4 mmol/L (21.0-32.0); Chloride 103 mmol/L (98-108); Globulin 3.4 g/dL (2.2-4.2); Glucose 111 mg/dL (70-99); PSA,Total - Annual Screen 0.20 ng/mL (0.02-4.00); Potassium 4.6 mmol/L (3.3-5.1); Vitamin D,25 Hydroxy 74.4 ng/mL (30-100)
[2025-03-10 17:02] LABS: Xtra Tube Kwok EXTRA TUBE
== END | disposition home or self-care (01) ==
LOC: POLAB3 09:02
PROVIDERS: PCP Family Medicine Geriatric Medicine; Visit Provider Family Medicine Geriatric Medicine
DX: Z12.5 Encounter for screening for malignant neoplasm of prostate (principal); R53.83 Other fatigue; E03.9 Hypothyroidism, unspecified; E55.9 Vitamin D deficiency, unspecified; W19.XXXA Unspecified fall, initial encounter
CPT/HCPCS: 36415; 80053; 82306; 84153; 84443; 85025; G0103

== ENCOUNTER → 2025-03-30 | Outpatient (CLI) | payer MEDICARE, BC, SELFPAY ==
[2025-03-30 10:33] LABS: Barbiturate Urine NEGATIVE (< 200 ng/mL); Benzodiazepine Urine NEGATIVE (< 200 ng/mL); PCP Urine NEGATIVE (< 25 ng/mL); THC Urine NEGATIVE (< 50 ng/mL)
== END | disposition home or self-care (01) ==
LOC: LAB 09:05
PROVIDERS: PCP Family Medicine Geriatric Medicine; Referring Provider Anesthesiology Pain Medicine; Visit Provider Anesthesiology Pain Medicine
DX: F11.20 Opioid dependence, uncomplicated (principal)
CPT/HCPCS: 80307

== ENCOUNTER → 2025-04-28 | Outpatient (CLI) | payer MEDICARE, BC, SELFPAY ==
--- NOTE | 2025-04-28 07:53 | CT_ITS ---
PROCEDURE: LOW DOSE CT LUNG SCREENING 04/28/2025 REASON FOR EXAM: NICOTINE DEPENDENCE Patient has smoked 1 pack per day for 45 years. Occasional shortness of breath. TECHNIQUE: Procedure Code: [id number] Modality: CT Procedure: LOW DOSE CT LUNG SCREENING Coronal and Sagittal reconstruction series were provided. One or more dose reduction techniques were used (e.g., Automated exposure control, adjustment of the mA and/or kV according to patient size, use of iterative reconstruction technique). REFERENCE LINK: [employer] Lung-RADS RADIATION DOSE SUMMARY: CTDlvol: 3.02 mGy DLP: 113.25 mGycm COMPARISON: Prior study dated October 01, 2022. FINDINGS: PULMONARY NODULES: (Only nodules >3mm are reported) Nodules described below are on series 1 unless otherwise specified. Pulmonary Nodules: No suspicious pulmonary nodules are seen. Hardware:Left-sided dual-chamber pacemaker is seen. Lymph Nodes:No significant lymph nodes are present. Heart and Vasculature:Coronary artery calcifications are noted.Atherosclerotic calcifications of the thoracic aorta. Thoracic aorta and pulmonary arteries have normal contours; noncontrast technique limits evaluation. Coronary Artery Calcifications: Present Lungs and Airways: Mild emphysematous changes are present. Pleura:No pleural effusion. Upper Abdomen:Unremarkable Bones:Degenerative changes of the thoracic spine. CT/Low Dose CT Lung Screening IMPRESSION: No suspicious pulmonary nodule seen. Coronary artery calcification (CAC) is is present Lung-RADS Category: 2 BENIGN (BASED ON IMAGING FEATURES OR INDOLENT BEHAVIOR). RECOMMEND 12-MONTH SCREENING LDCT. Other Significant Findings: Reading Location: [facility]
--- OUTSIDE RECORDS SUMMARY | 2025-04-28 08:15 | XMS RPT_ITS | CCD ---
Author Organization [facility] Care Team Providers Care Animal Rehabilitator Name Role Phone Agustina WARE, Delmy Garcia Unavailable Unavailable PROVIDER, UNKNOWN Unavailable Unavailable DEVEN, ARTHUR Unavailable Unavailable Portillo, Nile Unavailable Unavailable Fracisco Carvalho Chi Primary Care Provider Deven, Dr. Fracisco Stevens Primary Care Provider Dr. Tan Garsia Emergency Provider Dr. Reese Ludwig Admit Provider 1([facility])[phone] Reese Ludwig Attending Provider Dr. Reese Ludwig Other Provider Dr. Brandin Vogt Attending Provider Dr. Brandin Vogt Other Provider Deven, Dr. Fracisco Stevens Referring Provider Salas [employer] PATROL, CHIEF OF [place] PATROLHawaC Evangelina Attending Provider Dr. Ben Dietz Attending Provider Dr. Bruna Santiago Emergency Provider Dr. Alberto Peng Admit Provider Unavailable Dr. Alberto Peng Attending Provider Unavailable Dr. Alberto Peng Other Provider Unavailable Deven, Dr. Fracisco Stevens Primary Care Provider Dr. Nam Prescott Attending Provider Deven, Dr. Fracisco Stevens Primary Care Provider Dr. Fracisco Carvalho Chi Referring Provider Deven, Dr. Fracisco Stevens Primary Care Provider [phone] Ben Dietz Attending Provider Nakulcas, Dr. Contreras Referring Provider Deven, Dr. Fracisco Stevens Primary Care Provider Deven, Dr. Fracisco Stevens Referring Provider Deven, Dr. Fracisco Stevens Primary Care Provider Deven, Dr. Fracisco Stevens Referring Provider Moodispajose manuel, Dr. Contreras Attending Provider Deven, Dr. Fracisco Stevens Primary Care Provider Moodispaw, Dr. Contreras Attending Provider Dominiciscas, Dr. Contreras Referring Provider 1([facility])[phone] Deven, Dr. Fracisco Stevens Referring Provider 1([facility])[phone] Roof [employer] PATROL, CHIEF [employer] PATROL-Sarah Beth Tarango Attending Provider 1([facility])[phone] Deven, Dr. Fracisco Stevens Primary Care Provider 1([facility])[phone] Genny, Dr. Gutierrez Attending Provider 1([facility])-[phone] Genny, Dr. Gutierrez Referring Provider 1([facility])[phone] Deven, Dr. Fracisco Stevens Referring Provider 1([facility])[phone] Roof [employer] [place] PATROL, CHIE[employer] PATROL-Sarah Beth Tarango Attending Provider 1([facility])[phone] Deven, Dr. Fracisco Stevens Attending Provider 1([facility])[phone] Siva, Dr. Greenfield Attending Provider 1([facility])[phone] Siva, Dr. Greenfield Referring Provider 1([facility])[phone] Deven, Dr. Fracisco Stevens Primary Care Provider 1([facility])[phone] Dr. Matt Royal Attending Provider 1([facility])[phone] Matt Royal Referring Provider 1([facility])[phone] Deven, Dr. Fracisco Stevens Referring Provider 1([facility])[phone] Roof [employer] PATROL, CHIEF OF [employer] PATROL-Sarah Beth Tarango Attending Provider Deven, Dr. Fracisco Stevens Attending Provider 1([facility])[phone] Siva, Dr. Greenfield Attending Provider 1([facility])[phone] Siva, Dr. Greenfield Referring Provider 1([facility])[phone] Deven MD, Fracisco-Chi Primary Care Provider [phone] Deven, Dr. Fracisco Stevens Primary Care Provider Roof [employer] PATROL, CHIEF OF [employer] PATROL-C Tacos Tarango Attending Provider Deven, Dr. Fracisco Stevens Primary Care Provider Deven, Dr. Fracisco Stevens Referring Provider Salas [employer] PATROL, CH[employer] PATROL-C Evangelina Attending Provider MAHAMED FINLEY, DR JASON Attending Unavailabl e Deven, Fracisco Chi Primary Care Provider [phone] MATTO, BRUNA Admitting Unavailable MATTO, BRUNA Attending Unavailable MATTO, BRUNA Referring Unavailable DEVEN, FRACISCO CHI Primary Care Unavailable MATTO, BRUNA Attending Unavailable GENNY, MATT S Referring Unavailable DEVEN, FRACISCO CHI Primary Care Unavailable Deven , Dr. Fracisco Stevens Primary Care Provider 1([facility] )[phone] Genny FINLEY, Dr. Gutierrez Attending Provider 1([facility])[phone] Genny FINLEY, Dr. Gutierrez Referring Provider 1([facility])[phone] Deven FINLEY, Dr. Fracisco Stevens Attending Provider [phone] Deven FINLEY, Dr. Fracisco Stevens Referring Provider [phone] Deven FINLEY, Dr. Fracisco Stevens Primary Care Provider 1([facility] )[phone] Estefania Sandhu Attending Provider Unavailable Deven FINLEY, Dr. Fracisco Stevens Primary Care Provider [phone] Deven FINLEY, Dr. Fracisco Stevens Referring Provider 1([facility])[phone] Genny FINLEY, Dr. Gutierrez Attending Provider 1([facility])[phone] DEVEN, FRACISCO-CHI Primary Care Unavailable MARIANA REID Attending Unavailable MARIANA REID Attending Unavailable DEVEN, FRACISCO-CHI Primary Care Unavailable DEVEN, FRACISCO-CHI Primary Care Unavailable LANCE HOBBS Attending Unavailable Deven, Fracisco Chi Primary Care Unavailable Genny, [place] Attending Unavailable Deven, Fracisco Chi Primary Care Unavailable Genny, Matt Referring Unavailable Genny, [place] Attending Unavailable Genny, Matt Referring Unavailable Genny, [place] Attending Unavailable Deven, Fracisco Chi Primary Care Unavailable Deven, Fracisco Chi Primary Care Unavailable Genny, Matt Attending Unavailable Deven, Fracisco Chi Primary Care Unavailable Genny, [place] Attending Unavailable Genny, [place] Referring Unavailable Deven, Fracisco Chi Primary Care Unavailable Deven, Fracisco Chi Referring Unavailable Salas [employer] PATROL, Evangelina Attending Unavailable Deven, Fracisco Chi Primary Care Unavailable Genny, [place] Attending Unavailable Genny, [place] Referring Unavailable Genny, Matt Attending Unavailable Deven, Fracisco Chi Primary Care Unavailable Deven, Fracisco Chi Primary Care Unavailable Genny, Matt Attending Unavailable Deven, Fracisco Chi Referring Unavailable Roof CH[employer] PATROL, Tac[place] Tarango Attending Unavailable Deven, Fracisco Chi Primary Care Unavailable Deven, Fracisco Chi Primary Care Unavailable Deven, Fracisco Chi Attending Unavailable Deven, Fracisco Chi Primary Care Unavailable Deven, Fracisco Chi Referring Unavailable Deven, Fracisco Chi Attending Unavailable Deven, Fracisco Chi Primary Care Unavailable Deven, Fracisco Chi Attending Unavailable Deven, Fracisco Chi Primary Care Unavailable Basali, Ayman Referring Unavailable Basali, Ayman Attending Unavailable Roof [employer] PATROL, Tacos Tarango Referring Unavailable Roof [employer] [place] PATROL, [place] Tarango Attending Unavailable Deven, Fracisco Chi Primary Care Unavailable Deven, Fracisco Chi Attending Unavailable Deven, Fracisco Chi Primary Care Unavailable Deven, Fracisco Chi Primary Care Unavailable Genny, [place] Referring Unavailable Genny, Matt Attending Unavailable Allergies Allergy Classification Reported Allergen(s) Allergy Type Date of Onset Reaction(s) Facility (1 source) nadolol Drug Allergy 7 loose stools, night sweats [email or web address] Work Phone: [phone] (2 sources) NKDA; Translations: [NKDA] allergy to substance 5 [email or web address] Work Phone: [phone] (2 sources) NKA drug allergy 1 [email or web address] Work Phone: [phone] Medications Current Medications Medication Drug Class(es) Dates Sig (Normalized) Sig (Original) acetaminophen 325 mg / HYDROcodone bitartrate 5 mg oral tablet (20 sources) Opioid Agonist Start: 07-29-2023 End: 07-30-2023 take 1 tablet by mouth every six hours as needed for pain 1 tablet, Oral, Every 6 hours PRN, moderate pain (4-6), Starting on Thu07/29/23 at 1241, Maximum dose of acetaminophen is 4000 mg from all sources in 24 hours. Start: 06-05-2021 take 1 tablet by deirdre th four times daily HYDROcodone-acetaminophen ([place]) 5-325 MG tablet TAKE 1 TABLET BY MOUTH FOUR TIMES DAILY FOR 28 DAYS 04/07/2023 Active Start: 06-05-2021 take 1 tablet by deirdre th four times daily Hydrocodone-Acetaminophen Active 1 TABLE T PO 4 TIMES DAILY June 05, 2021 1:00am Start: 01-16-2021 End: 01-16-2021 take 1 tablet by mouth every six hours Hydrocodone-Acetaminophen Discontinued 1 TABLET PO EVERY 6 HOURS January 16, 2021 12:00am January 16, 2021 8:40am Start: 08-26-2017 End: 01-31-2022 Hydrocodone-Acetaminophen 5- 325 mg tablet Discontinued 1 {tbl} PO EVERY 6 HOURS as needed 0 January 16, 2021 12:00am January 16, 2021 8:40am Start: 04-08-2016 NORCO 5-325 MG TABS as directed HYDROCODONE-ACETAMINOPHEN [id number] Ben Dietz MD Start: 04-08-2016 HYDROCODONE-AC ETAMINOPHEN TABS HYDROCODONE-ACETAMINOPHEN TABS [id number] Lance Pablo MA Albuterol (Eqv-Proventil HFA) 90 mcg/inh inhalation aerosol (1 source) Start: 08-24-2023 Albuterol (Eqv-Proventil HFA) 90 mcg/inh inhalation aerosol 0 Refill(s) Start Date: 08/24/23 Status: Ordered amoxicillin 500 mg oral tablet (20 sources) Penicillin-class Antibacterial Start: 09-16-2024 amoxicillin (Amoxil) 500 MG tablet Take 1,000 mg by mouth. 09/16/2024 Active Start: 07-17-2021 End: 08-14-2021 take 4 capsules by mouth every hour Amoxicillin 500 mg capsule Discontinued 2000 mg PO .COMPLEX 04 08July 17, 2021 10:44am August 14, 2021 11:47am 2,000 mg PO 1 hour prior to dental visits; Pt has several upcoming appts. Start: 07-17-2021 End: 08-14-2021 take 2000 mg by mouth every hour Amoxicillin Discontin ued 2000 MG PO .COMPLEX July 17, 2021 10:44am August 14, 2021 11:47am 2,000 mg PO 1 hour prior to dental visits; Pt has several upcoming appts. Start: 06-26-2020 End: 12-31-2020 take 2 g by mouth every hour Amoxicillin Discontinued 2000 MG PO .COMPLEX 4 October 03, 2020 4:27pm December 31, 2020 9:02am 2 g PO 1 HR prior to dental procedure Start: 01-19-2018 End: 12-31-2020 take 2 g by mouth every hour Amoxicillin 500 mg tablet Discontinued 2000 mg PO .COMPLEX 4 3 October 03, 2020 4:27pm December 31, 2020 9:02am 2 g PO 1 HR prior to dental procedure Start: 01-19-2018 End: 06-26-2020 take 2 g by mouth every hour Amoxicillin Discontinued 2 GM PO .COMPLEX January 19, 2018 12:00am June 26, 2020 10:52am 2 g PO 1 HR prior to dental procedure Start: 04-02-2011 End: 03-31-2016 take 4 tablets by mouth every hour AMOXICILLIN 500 MG TABS 4 tablets by mouth 1 hr prior to procedure AMOXICILLIN [id number] Shruti Ware MD apixaban 5 mg oral tablet (20 sources) Factor Xa Inhibitor Start: 07-09-2024 take 1 tablet by mouth twice daily ELIQUIS 5 mg tab(s) Take 1 tablet by mouth two times a day. Patient should start on July 09, 2024. 07/09/2024 Active Start: 07-09-2024 take 1 tablet by deirdre th twice daily ELIQUIS 5 mg tab(s) Take 1 tablet by mouth two times a day. Patient should start on July 09, 2024. 07/09/2024 Active Start: 07-09-2024 take 1 tablet by deirdre th twice daily ELIQUIS 5 mg tab(s) Take 1 tablet by mouth two times a day. Patient should start on July 09, 2024. 07/09/2024 Active Start: 02-23-2024 End: 08-31-2024 take 1 tablet by mouth twice daily Apixaban (Eliquis) 5 mg tablet Active 5 mg PO TWICE A DAY March 17, 2024 12:00am 12 hr buPROPion hydrochloride 150 mg extended [...] by mouth daily. 0 02/26/2023 Active Start: 09-09-2017 take 1 tablet by deirdre th twice daily, then take 1 tablet by mouth every twelve hours Bupropion Hcl (Smoking Deter) 150 mg tablet extended release 12 hr Active 150 mg PO TWICE A DAY September 09, 2017 12:00am SMOKING Start: 08-26-2017 take 1 tablet by deirdre th every hour, then take 1 tablet by mouth twice daily Wellbutrin SR 150 mg/12 hours oral tablet, extended release Dose : 150 mg = 1 tab(s), Oral, BID, 0 Refill(s) Start Date: 08/26/17 Status: Ordered Start: 06-02-2012 End: 09-21-2014 take 1 tablet by mouth once daily WELLBUTRIN XL 150 MG CH11T-DOS One tablet by mouth daily BUPROPION HCL [id number] Ben Dietz MD cholecalciferol 0.025 mg oral tablet (20 sources) Vitamin D Start: 01-31-2022 take 1 tablet by mouth once daily Cholecalciferol (Vitamin D3) 25 mcg (1,000 unit) tablet Active 25 ug PO DAILY January 31, 2022 12:00am Start: 01-16-2021 End: 01-31-2022 take 1 tablet by mouth once daily Cholecalciferol (Vitamin D3) 50 mcg (2,000 unit) tablet Discontinued 100 ug PO DAILY January 16, 2021 12:00am January 31, 2022 10:29am supplement Start: 09-09-2017 End: 12-31-2020 take 1 capsule by mouth once daily Cholecalciferol (Vitamin D3) 1,000 unit capsule Discontinued 1000 U PO daily September 09, 2017 12:00am December 31, 2020 8:33am Start: 07-24-2017 End: 09-09-2017 take 1 capsule by mouth once daily Cholecalciferol (Vitamin D3) 5,000 unit capsule Discontinued 5000 U PO daily July 24, 2017 1:00am September 09, 2017 10:17am take 1 tablet by deirdre th once daily VITAMIN D3 5000 UNIT TABS One tablet by mouth daily CHOLECALCIFEROL [id number] Shruti Ware MD citalopram 20 mg oral tablet (20 [...] 0 02/26/2023 07/16/2023 Discontinued (Therapy completed) Start: 10-01-2021 End: 01-31-2022 take 1 tablet by mouth once daily Citalopram 20 mg Tablet Discontinued 20 mg PO DAILY October 01, 2021 12:00am January 31, 2022 10:31am depression Start: 10-27-2014 take 1 tablet by deirdre th once daily CITALOPRAM HYDROBROMIDE 20 MG TABS One tablet by mouth daily CITALOPRAM HYDROBROMIDE [id number] Corine Narayanan RN dabigatran etexilate 150 mg oral capsule (4 sources) Start: 08-31-2024 take 1 capsule by mouth twice daily in the evening dabigatran etexilate (Pradaxa) 150 MG capsule Take 1 capsule (150 mg) by mouth 2 times daily. Do not crush or chew. 180 capsule 3 12/05/2024 3:53 PM EDT 08/31/2024 Active folic acid 1 mg oral tablet (9 sources) Start: 12-09-2023 take 1 tablet by mouth once daily Folic Acid 1 mg Tablet Active 1 mg PO DAILY@0800 0 0 December 09, 2023 12:00am furosemide 40 mg oral tablet (20 sources) Loop Diuretic Start: 03-19-2023 End: 08-31-2024 furosemide (Lasix) 40 MG tablet Take 40 mg by mouth if needed. 05/05/2024 Active Start: 09-18-2014 End: 09-21-2014 take 1 tablet by mouth twice daily LASIX 40 MG TABS One tablet by mouth twice daily FUROSEMIDE [id number] Anjali Steen RN gabapentin 300 mg oral capsule (20 sources) Anti-epileptic Agent End: 07-16-2023 take 1 capsule by mouth three times daily gabapentin (NEURONTIN) 300 mg capsule Take 300 mg by mouth three times daily. Active take 1 tablet by deirdre th three times daily GABAPENTIN 400 MG CAPS One tablet by deirdre th three times daily GABAPENTIN [id number] Shruti Ware MD Comment on above: Take 300 mg by mouth three times daily. 24 hr metoprolol succinate 50 mg extended release oral tablet (20 sources) beta-Adrenergic Dane Start: 01-31-2022 End: 09-05-2024 take 1 tablet by mouth once daily metoprolol succinate XL (Toprol-XL) 50 MG 24 hr tablet Take 50 mg by mouth daily. 01/13/2023 Active Start: 11-19-2021 End: 01-31-2022 take 1 tablet by mouth once daily Metoprolol Succinate 25 mg tablet extended release 24 hr Discontinued 25 mg PO DAILY 90 November 19, 2021 12:54pm January 31, 2022 10:28am bp Start: 10-02-2021 End: 11-19-2021 take 2 tablets by mouth once daily Metoprolol Succinate 50 mg tablet extended release 24 hr Discontinued 25 mg PO DAILY 0 October 02, 2021 8:46am November 19, 2021 12:57pm bp Start: 10-02-2021 End: 11-19-2021 take 25 mg by mouth once daily Metoprolol Succinate Di scontinued 25 MG PO DAILY 0 October 02, 2021 8:46am November 19, 2021 12:57pm Start: 01-16-2021 End: 10-02-2021 take 1 tablet by mouth once daily Metoprolol Succinate 50 mg tablet extended release 24 hr Discontinued 0 .ROUTE .COMPLEX 90 June 20, 2021 1:58pm July 25, 2021 9:42am TAKE 1 TAB BY MOUTH DAILY Start: 06-04-2016 End: 12-31-2020 take 1 tablet by mouth once daily Metoprolol Succinate 50 mg tablet extended release 24 hr Discontinued 50 mg PO DAILY 90 3 July 30, 2020 8:49am December 31, 2020 8:33am microencapsulated potassium chloride 20 meq extended release oral tablet (20 sources) Start: 10-21-2023 KLOR-CON M20 2 0 mEq tablet Take 20 mEq by mouth once daily. 10/21/2023 Active Start: 09-03-2023 End: 12-15-2024 potassium chloride CR (Klor- Con M20) 20 MEQ ER tablet Indications: 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) TAKE 1 TABLET (20 MEQ) BY MOUTH EVERY OTHER DAY. DO NOT CRUSH OR CHEW. TAKE 2 TABS ON DAY 1 AND THEN 1 TAB ON EVERY OTHER DAY THERAFTER 47 tablet 5 12/15/2024 Active Start: 10-04-2014 End: 04-30-2023 take 1 tablet by mouth twice daily Potassium Chloride 10 MEQ tablet extended release Discontinued 10 meq PO TWICE A DAY October 04, 2014 12:00am September 09, 2017 10:19am Start: 09-18-2014 End: 12-20-2014 take 1 tablet by mouth twice daily MICRO-K 10 MEQ CR-CAPS One tablet by mouth twice daily POTASSIUM CHLORIDE [id number] Shruti Ware MD Start: 09-18-2014 take 1 capsule by mo [facility] once daily MICRO-K 10 MEQ CR-CAPS 1 capsule by mouth daily POTASSIUM CHLORIDE [id number] Anjali Steen RN Comment on above: Take 10 mEq by mouth twice daily. sildenafil 100 mg oral tablet (20 sources) Phosphodiesterase 5 Inhibitor Start: 12-14-19 take 1 tablet by mouth every twenty-four hours as needed sildenafil (Viagra) 100 MG tablet Take 100 mg by mouth Daily as needed. 12/13/2024 Active Start: 01-02-2017 End: 01-16-2021 Sildenafil 100 MG tablet Dis continued 100 mg PO NEEDED as needed for erectile January 02, 2017 12:00am January 16, 2021 8:41am spironolactone 25 mg oral tablet (20 sources) Aldosterone Antagonist Start: 04-30-2023 End: 04-29-2024 take 1 tablet by mouth once daily spironolactone (Aldactone) 25 MG tablet TAKE 1 TABLET BY MOUTH EVERY DAY 90 tablet 3 02/29/2024 Active sulfacetamide sodium 100 mg/ml topical lotion (1 source) Sulfonamide Antibacterial Start: 09-04-2024 sulfacetamide suspension (Klaron) 10 % lotion topical Apply 1 Application topically Nightly. 09/04/2024 Active thiamine 100 mg oral tablet (4 sources) Start: 12-09-2023 take 1 tablet by mouth once daily at mealtime Thiamine Hcl (Vitamin B1) 100 mg Tablet Active 100 mg PO DAILY WITH MEALS 0 0 December 09, 2023 12:00am levothyroxine sodium 0.112 mg oral tablet (20 sources) l-Thyroxine Start: 01-01-2024 take 1 tablet by mouth once daily Levothyroxine 112 mcg tablet Active 112 ug PO DAILY January 01, 2024 12:00am Start: 12-09-2023 End: 01-07-2024 take 1 tablet by mouth once daily Levothyroxine 100 mcg tablet Discontinued 100 ug PO DAILY December 09, 2023 12:00am January 01, 2024 11:03am Start: 06-05-2021 End: 11-11-2023 take 1 tablet by mouth once daily Levothyroxine 100 mcg tablet Discontinued 100 ug PO DAILY June 05, 2021 1:00am November 11, 2023 9:14am THYROID Start: 12-31-2020 End: 01-16-2021 Levothyroxine 100 mcg tablet Discontinued 88 ug PO DAILY December 31, 2020 8:31am January 16, 2021 8:38am Start: 12-31-2020 End: 01-16-2021 take 88 ug by mouth once daily Levothyroxine Discontin ued 88 MCG PO DAILY December 31, 2020 8:31am January 16, 2021 8:38am Start: 08-26-2017 take 1 dose by mouth once daily Synthroid Dose : 88 mcg =, Oral, qDay, 0 Refill(s) Start Date: 08/26/17 Status: Ordered Start: 10-27-2014 End: 12-31-2020 take 1 tablet by mouth once daily Levothyroxine 100 mcg tablet Discontinued 100 ug PO DAILY September 08, 2018 12:00am December 31, 2020 8:33am Start: 10-27-2014 End: 09-08-2018 take 1 tablet by mouth once daily Levothyroxine 88 MCG tablet Discontinued 88 ug PO DAILY May 29, 2016 1:00am September 08, 2018 8:40am levothyroxine (S YNTHROID) 100 mcg tablet Take 112 mcg by mouth daily before breakfast. Active Comment on above: Take 100 mcg by mout h daily before breakfast. tiZANidine 4 mg oral tablet (20 sources) Central alpha-2 Adrenergic Agonist Start: 01-31-2022 take 1 tablet by mouth at bedtime Tizanidine 4 mg tablet Active 4 mg PO AT BEDTIME January 31, 2022 10:30am muscle spasm Start: 01-16-2021 End: 07-30-2023 take 1 tablet by mouth twice daily tiZANidine (Zanaflex) 4 MG tablet TAKE 1 TABLET ORAL TWICE A DAY FOR 30 DAYS 2022 Active Start: 10-18-2019 End: 12-31-2020 take 1 capsule by mouth at bedtime Tizanidine 4 mg capsule Discontinued 4 mg PO AT BEDTIME October 18, 2019 12:00am December 31, 2020 8:33am Start: 09-09-2017 End: 04-18-2019 take 1 tablet by mouth once daily Tizanidine 4 mg tablet Discontinued 4 mg PO daily September 09, 2017 12:00am April 18, 2019 9:38am Start: 08-26-2017 tiZANidine 2 m g oral tablet Dose : 4 mg = 2 tab(s), Oral, q8h, 0 Refill(s) Start Date: 08/26/17 Status: Ordered Start: 01-02-2017 End: 07-24-2017 take 1 capsule by mouth once daily Tizanidine 4 MG capsule Discontinued 4 mg PO DAILY January 02, 2017 12:00am July 24, 2017 2:48pm traZODone hydrochloride 100 mg oral tablet (20 sources) Serotonin Reuptake Inhibitor Start: 04-02-2024 take 1 tablet by mouth once daily at bedtime traZODone (DESYREL) 100 mg tablet Take 100 mg by mouth daily at bedtime. 04/02/2024 Active Start: 01-01-2024 End: 01-07-2024 take 200 mg by mouth once daily 200 mg, Oral, Nightly, First dose on Thu01/01/24 at 2100 Start: 07-29-2023 End: 07-30-2023 take 300 mg by mouth once daily 300 mg, Oral, Nightly, First dose on Thu07/29/23 at 2100 Start: 01-11-2023 take 2 tablets by mo uth once daily traZODone (Desyrel) 100 MG tablet Take 200 mg by mouth Nightly. 01/11/2023 Active Start: 01-31-2022 End: 11-11-2023 take 3 tablets by mouth at bedtime Trazodone 100 mg tablet Discontinued 300 mg PO AT BEDTIME January 31, 2022 10:30am November 11, 2023 9:14am mood Start: 01-31-2022 take 300 mg by mouth at bedtim e Trazodone Active 300 MG PO AT BEDTIME January 31, 2022 10:30am Start: 07-24-2017 End: 01-31-2022 take 2 tablets by mouth at bedtime Trazodone 100 mg tablet Discontinued 200 mg PO AT BEDTIME July 24, 2017 1:00am January 31, 2022 10:33am mood Start: 07-24-2017 End: 01-31-2022 take 200 mg by mouth at bedtime Trazodone Discontinued 200 MG PO AT BEDTIME July 24, 2017 1:00am January 31, 2022 10:33am Start: 05-12-2015 End: 07-24-2017 take 1 tablet by mouth at bedtime Trazodone 300 MG tablet Discontinued 300 mg PO AT BEDTIME May 12, 2015 1:00am July 24, 2017 2:46pm Start: 06-02-2012 take 1 tablet by deirdre once daily TRAZODONE HCL 100 MG TABS One tablet by mouth daily TRAZODONE HCL [id number] Ben Dietz MD Start: 06-02-2012 take 3 tablets by mo ut once daily TRAZODONE HCL 100 MG TABS three tablet by mouth daily TRAZODONE HCL [id number] Ben Dietz MD Start: 11-21-2011 take 1 tablet by deirdre th at bedtime TRAZODONE HCL 50 MG TABS One tablet by mouth at bedtime. TRAZODONE HCL [id number] Ben Dietz MD Completed/Discontinued Medications Medication Drug Class(es) Dates Sig [...] four times daily as needed OXYCODONE-ACETAM INOPHEN [id number] Shruti Ware MD [id number] actuat albuterol 0.09 mg/actuat metered dose inhaler (20 sources) beta2-Adrenergic Agonist Start: 01-01-2024 End: 01-07-2024 Start: 07-29-2023 End: 07-30-2023 take 2 puff(s) by inhalation every four hours as needed for wheezing 2 puff, Inhalation, Every 4 hours PRN, wheezing, Starting on Thu07/29/23 at 1242, *Common* Start: 03-10-2023 End: 03-09-2025 albuterol 108 (90 Base) MCG/ ACT inhaler TAKE 2 PUFFS INHALED 6 TIMES PER DAY FOR 30 DAYS NEEDED WHEEZING/SHORTNESS OF BREATH. 03/10/2023 03/09/2025 Discontinued (Therapy completed) Start: 01-31-2022 End: 05-04-2024 Albuterol Sulfate (Proair Hf a) 90 mcg/actuation HFA aerosol inhaler Discontinued 2 NMA INHALATION Q4H as needed for SOB January 31, 2022 10:32am May 04, 2024 10:25am Start: 01-31-2022 take 1 puff(s) by in halation every four hours Albuterol Sulfate (Proair Hfa) 90 mcg/actuation HFA aerosol inhaler Active 2 PUFF INHALATION Q4H January 31, 2022 10:32am Start: 07-24-2017 End: 01-31-2022 Albuterol Sulfate (Proair Hf a) 90 mcg/actuation HFA aerosol inhaler Discontinued 2 NMA INHALATION Q4H July 24, 2017 1:00am January 31, 2022 10:33am SOB Start: 07-24-2017 End: 01-31-2022 take 1 puff(s) by inhalation every four hours Albuterol Sulfate (Proair Hfa) 90 mcg/actuation HFA aerosol inhaler Discontinued 2 PUFF INHALATION Q4H July 24, 2017 1:00am January 31, 2022 10:33am PROAIR HFA 108 ( 90 Base) MCG/ACT AERS 2 puffs q 4 hrs ALBUTEROL SULFATE [id number] Shruti Ware MD ALPRAZolam 0.25 mg oral tablet (2 sources) Benzodiazepine Start: 04-02-2011 End: 04-22-2011 take 1 tablet by mouth three times daily as needed ALPRAZOLAM 0.25 MG TABS One tablet by mouth three times daily as needed ALPRAZOLAM [id number] Gaby Higgins amiodarone hydrochloride 200 mg oral tablet (2 sources) Antiarrhythmic Start: 09-21-2014 End: 10-11-2014 take 1 tablet by mouth once daily AMIODARONE HCL 200 MG TABS One tablet by mouth daily AMIODARONE HCL [id number] Ben Dietz MD amitriptyline hydrochloride 25 mg oral tablet (2 sources) Tricyclic Antidepressant Start: 06-02-2012 End: 10-27-2014 take 1 tablet by mouth once daily at bedtime AMITRIPTYLINE HCL 25 MG TABS (Elavil) One tablet by mouth daily at bedtime AMITRIPTYLINE HCL [id number] Ben Dietz MD aspirin 81 mg delayed release oral tablet (20 sources) Nonsteroidal Anti-inflammatory Drug Start: 08-26-2017 End: 07-30-2024 take 1 tablet by mouth once daily Aspirin (Adult Aspirin Regimen) 81 mg tablet,delayed release (DR/EC) Discontinued 81 mg PO DAILY July 25, 2021 1:00am May 04, 2024 10:25am blood thinner On Hold: Hold for 1 week as patient has thrombocytopenia. Follow with PCP. Start: 04-02-2011 take 1 tablet by deirdre th once daily ASPIRIN 81 MG TABS One tablet by mouth daily ASPIRIN [id number] Gaby M Ronaldo Start: 04-02-2011 take 1 tablet by deirdre th once daily ASPIRIN EC 81 MG TBEC One tablet by mouth daily ASPIRIN [id number] Gabi Caruso RN Start: 01-24-2011 End: 06-10-2024 take 1 tablet by mouth once daily Aspirin 81 MG tablet,chewable Discontinued 81 mg PO DAILY@0800 October 05, 2014 12:00am December 31, 2020 8:32am Comment on above: Take 1 tablet by deirdre th once daily. atorvastatin 40 mg oral tablet (20 sources) HMG-CoA Reductase Inhibitor Start: 01-01-2024 End: 01-07-2024 take 40 mg by mouth once daily 40 mg, Oral, Nightly, First dose on Thu01/01/24 at 2100 Start: 01-31-2022 End: 08-12-2022 Atorvastatin 40 mg tablet Discontinued 20 mg PO AT BEDTIME January 31, 2022 10:30am August 12, 2022 8:48am cholesterol Start: 01-31-2022 End: 08-12-2022 take 20 mg by mouth at bedtime Atorvastatin Discontinu ed 20 MG PO AT BEDTIME January 31, 2022 10:30am August 12, 2022 8:48am Start: 01-16-2021 End: 01-31-2022 take 1 tablet by mouth at bedtime Atorvastatin 40 mg tablet Discontinued 40 mg PO AT BEDTIME July 25, 2021 9:33am January 31, 2022 10:33am cholesterol Start: 09-18-2014 End: 07-30-2023 take 1 tablet by mouth at bedtime Atorvastatin 20 mg tablet Discontinued 20 mg PO AT BEDTIME 90 3 December 31, 2017 1:44pm January 16, 2021 8:36am Comment on above: Take 20 mg by mouth once daily. atropine sulfate 0.025 mg / diphenoxylate hydrochloride 2.5 mg oral tablet (5 sources) Anticholinergic, Cholinergic Muscarinic Antagonist, Antidiarrheal End: 06-10-19 25 take 1 tablet by mouth every six hours as needed diphenoxylate-atropi ne (LOMOTIL) 2.5-0.025 mg per tablet Take 1 tablet by mouth four times daily as needed. 06/10/2024 Discontinued (Course of therapy completed) End: 04-30-2023 take 1 tablet by mouth every six hours as needed diphenoxylate-atropine (Lomotil) 2.5-0.025 MG tablet Take 1 tablet by mouth every 6 hours as needed. 0 04/30/2023 Discontinued (Therapy completed) Comment on above: Take 1 tablet by deirdre th four times daily as needed. baclofen 10 mg oral tablet (2 sources) gamma-Aminobutyric Acid-ergic Agonist Start: 11-23-19 13 End: 09-22-19 15 take 1 tablet by mouth three times daily BACLOFEN 10 MG TABS One tablet by mouth three times daily BACLOFEN [id number] Ben Dietz MD cefTRIAXone 100 mg/ml injectable solution (2 sources) Cephalosporin Antibacterial Start: 04-02-20 11 End: 04-22-20 11 take 50 mL intravenous route once daily CEFTRIAXONE SODIUM 2 GM SOLR 50mL, IV daily through 1-/10/04 CEFTRIAXONE SODIUM [id number] Ben Dietz MD celecoxib 200 mg oral capsule (7 sources) Nonsteroidal Anti-inflammatory Drug Start: 06-02-19 End: 04-30-20 take 1 tablet by mouth once daily CELEBREX 200 MG CAPS One tablet by mouth daily CELECOXIB [id number] Ben Dietz MD End: 06-10-2024 take 1 capsule by mouth twice daily celecoxib (CELEBREX) 200 mg capsule Take 200 mg by mouth twice daily. 06/10/2024 Discontinued (Course of therapy completed) Comment on above: Take 200 mg by mouth twice daily. cholecalciferol 9.52 unt/ml / glucose 357 mg/ml oral gel (2 sources) Vitamin D Start: End: 15 g, Oral, As needed, low blood [...] tablet (2 sources) Phosphodiesterase 3 Inhibitor Start: End: take 1 tablet by mouth once daily CILOSTAZOL 100 MG TABS One tablet by mouth daily CILOSTAZOL [id number] Anjali Steen RN colestipol hydrochloride 1000 mg oral tablet (20 sources) Bile Acid Sequestrant Start: End: Colestipol 1 gram tablet Discontinued 1 g PO ONCE December 31, 2020 12:00am January 16, 2021 8:40am Start: 07-24-2017 End: 09-09-2017 Colestipol 1 gram tablet Discontinued 4 g PO TWICE A DAY July 24, 2017 1:00am September 09, 2017 10:23am Start: 07-24-2017 End: 09-09-2017 take 4 g by mouth twice daily Colestipol Discontinued 4 GM PO TWICE A DAY July 24, 2017 1:00am September 09, 2017 10:23am Start: 04-16-2016 End: 06-10-2024 take 4 tablets by mouth twice daily colestipol (COLESTID) 1 gram tablet TAKE 4 TABLETS BY MOUTH TWICE A DAY 720 tablet 3 04/10/2017 06/10/2024 Discontinued (Course of therapy completed) Comment on above: TAKE 4 TABLETS BY MO UTH TWICE A DAY Take 4 tablets by mo uth twice daily. cyclobenzaprine hydrochloride 7.5 mg oral tablet (20 sources) Muscle Relaxant Start: 07-25-19 End: 09-10-19 take 1 tablet by mouth at bedtime Cyclobenzaprine 7.5 mg tablet Discontinued 7.5 mg PO BEDTIME July 24, 2017 1:00am September 09, 2017 10:23am take 1 tablet by [facility] once daily at bedtime CYCLOBENZAPRINE HCL 7.5 MG TABS One tabl et by mouth daily at betime. CYCLOBENZAPRINE HCL [id number] Donna Ny NP dapagliflozin 10 mg oral tablet (4 sources) Sodium-Glucose Cotransporter 2 Inhibitor Start: 01-04-2024 End: 01-07-2024 take 10 mg by mouth once daily 10 mg, Oral, Daily, First dose on 01/04/24 at 1145, Indications: Heart Failure Start: 07-30-2023 End: 07-30-2023 take 10 mg by mouth once daily 10 mg, Oral, Daily, Fir st dose on Leonie 07/30/23 at 0900 diclofenac potassium 50 mg oral tablet (2 sources) Nonsteroidal Anti-inflammatory Drug Start: 12-09-2013 End: 10-27-2014 take 1 tablet by mouth twice daily DICLOFENAC POTASSIUM 50 MG TABS One tablet by mouth twice daily DICLOFENAC POTASSIUM [id number] Ben Dietz MD diflunisal 500 mg oral tablet (20 sources) Nonsteroidal Anti-inflammatory Drug Start: 01-02-2017 End: 09-09-2017 take 1 tablet by mouth three times daily Diflunisal 500 MG tablet Discontinued 500 mg PO THREE TIMES A DAY January 02, 2017 12:00am September 09, 2017 10:23am digoxin 0.125 mg oral tablet (2 sources) Cardiac Glycoside Start: 09-21-2014 End: 10-19-2014 take 1 tablet by mouth once daily DIGOXIN 125 MCG TABS One tablet by mouth daily DIGOXIN [id number] Ben Dietz MD docusate sodium 100 mg oral capsule (2 sources) Start: 01-04-2024 End: 01-07-2024 take 100 mg by mouth twice daily 100 mg, Oral, 2 times daily, First dose on Thu01/04/24 at 0900 doxepin hydrochloride 150 mg oral capsule (20 sources) Tricyclic Antidepressant Start: 01-01-2024 End: 01-07-2024 take 150 mg by mouth once daily 150 mg, Oral, Nightly, First dose on Thu01/01/24 at 2100 Start: 10-01-2021 End: 06-10-2024 take 1 capsule by mouth once daily Doxepin 150 mg Capsule Active 150 mg PO DAILY October 01, 2021 12:00am depression Start: 12-31-2020 End: 07-25-2021 take 1 capsule by mouth at bedtime Doxepin 150 mg capsule Discontinued 150 mg PO AT BEDTIME December 31, 2020 12:00am July 25, 2021 9:34am Start: 04-18-2019 End: 10-18-2019 take 1 capsule by mouth at bedtime Doxepin 150 mg capsule Discontinued 150 mg PO AT BEDTIME April 18, 2019 1:00am October 18, 2019 8:28am DULoxetine 30 mg delayed release oral capsule (1 source) Serotonin and Norepinephrine Reuptake Inhibitor Start: 06-02-2012 take 1 tablet by mouth once daily CYMBALTA 30 MG CPEP One tablet by mouth daily DULOXETINE HCL [id number] Ben Dietz MD empagliflozin 10 mg oral tablet (20 sources) Sodium-Glucose Cotransporter 2 Inhibitor Start: 05-25-2023 End: 05-19-2025 take 1 tablet by mouth once daily empagliflozin (Jardiance) 10 MG Indications: 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) Take 1 tablet (10 mg) by mouth daily. 90 tablet 3 05/25/2024 11:15 AM EST 05/19/2024 03/07/2025 Discontinued 0.3 ml enoxaparin sodium 100 mg/ml prefilled [...] One tablet by mouth daily ESCITALOPRAM OXALATE [id number] Ben Dietz MD ferrous fumarate 325 mg oral tablet (20 sources) Start: 08-26-2017 End: 10-18-2019 take 1 tablet by mouth once daily Ferrous Fumarate 325 mg (106 mg iron) tablet Discontinued 325 mg PO DAILY September 08, 2018 12:00am October 18, 2019 8:27am ferrous sulfate 325 mg oral tablet (20 sources) Start: 10-01-2021 End: 01-31-2022 take 1 tablet by mouth once daily Ferrous Sulfate 325 mg (65 mg iron) Tablet Discontinued 325 mg PO DAILY October 01, 2021 12:00am January 31, 2022 10:31am supplement Start: 12-31-2020 End: 01-16-2021 take 1 tablet by mouth once daily Ferrous Sulfate 325 mg (65 mg iron) tablet Discontinued 325 mg PO DAILY December 31, 2020 12:00am January 16, 2021 8:40am Start: 09-21-2014 take 1 tablet by deirdre th once daily FERROUS SULFATE 325 (65 Fe) MG TABS One tablet by mouth daily FERROUS SULFATE [id number] Ben Diezt MD Start: 04-02-2011 End: 11-21-2011 take 1 tablet by mouth three times daily FERROUS SULFATE 325 (65 Fe) MG TABS One tablet by mouth three times daily FERROUS SULFATE [id number] Ben Dietz MD fluconazole 150 mg oral tablet (20 sources) Azole Antifungal Start: 10-31-2021 End: 01-31-2022 take 1 tablet by mouth every week Fluconazole (Diflucan) 150 mg tablet Discontinued 150 mg PO EVERY WEEK 4 0 October 31, 2021 12:00am January 31, 2022 10:32am Leg wound, right Unspecified open wound, right lower leg, initial encounter Yeast infection in leg wound glucagon (rdna) 1 mg injection (2 sources) [...] iopamidol (Isovue-370) 76 % injection 100 mL levoFLOXacin 250 mg oral tablet (20 sources) Quinolone Antimicrobial Start: 11-05-2021 End: 11-11-2023 take 1 tablet by mouth once daily Levofloxacin 250 mg Tablet Discontinued 250 mg PO DAILY November 05, 2021 12:00am November 11, 2023 9:13am 10 ml lidocaine hydrochloride 10 mg/ml injection (4 sources) Antiarrhythmic, Amide Local Anesthetic Start: 01-06-2024 End: 01-06-2024 As needed, Starting on Thu01/06/24 at 1049, Intraprocedure Start: 04-02-2011 LIDOCAINE HCL GEL Topical 5%, apply patch daily as needed LIDOCAINE HCL GEL [id number] Gaby Higgins Start: 04-02-2011 End: 06-02-2012 LIDOCAINE HCL GEL Topical 5% , apply patch daily as needed LIDOCAINE HCL GEL [id number] Ben Dietz MD loratadine 10 mg oral tablet (2 sources) Start: 12-09-2013 End: 09-21-2014 LORATADINE 10 MG TABS One daily as needed LORATADINE [id number] Ben Dietz MD meloxicam 7.5 mg oral tablet (20 sources) Nonsteroidal Anti-inflammatory Drug Start: 01-02-2017 End: 09-08-2018 take 1 tablet by mouth once daily Meloxicam 7.5 MG tablet Discontinued 7.5 mg PO DAILY January 02, 2017 12:00am September 08, 2018 8:43am Start: 04-02-2011 End: 11-21-2011 take 1 tablet by mouth once daily MELOXICAM 15 MG TABS One tablet by mouth daily MELOXICAM [id number] Gaby Higgins MULTIPLE VITAMIN (1 source) Start: 11-21-2011 take 1 tablet by mouth once daily MULTIVITAMINS TABS One tablet by mouth daily MULTIPLE VITAMIN [id number] Ben Dietz MD Multivitamin preparation (20 sources) Start: 07-24-2017 End: 09-08-2018 take 1 tablet by mouth once daily Multivitamin Discontinued 1 TABLET PO daily July 24, 2017 2:46pm September 08, 2018 8:43am Start: 07-24-2017 End: 09-08-2018 take 1 tablet by mouth once daily Multivitamin Discontinued 1 TABLET PO daily July 24, 2017 12:00am September 08, 2018 7:43am Start: 07-24-2017 End: 09-08-2018 take 1 tablet by mouth once daily Multivitamin Discontinued 1 TABLET PO daily July 24, 2017 1:00am September 08, 2018 8:43am Multivitamin tablet (4 sources) Start: 07-24-2017 End: 09-08-2018 Multivitamin tablet Discontinued 1 {tbl} PO daily July 24, 2017 1:00am September 08, 2018 8:43am mupirocin 0.02 mg/mg topical ointment (2 sources) RNA Synthetase Inhibitor Antibacterial Start: 01-01-2024 End: 01-06-2024 1 Application, Nasal, 2 times daily, First dose on Thu01/01/24 at 2100, For 5 days, Indications: MRSA Nasal Decolonization nadolol 40 mg oral tablet (20 sources) beta-Adrenergic Dane Start: 09-21-2014 End: 06-09-2023 take 1 tablet by mouth once daily Nadolol (Corgard) 40 mg Tablet Discontinued 40 mg PO DAILY October 01, 2021 12:00am October 02, 2021 8:44am Bp Comment on above: Take 40 mg by [...] mouth four times daily OXYCONTIN 40 MG [id number] One tablet by mouth four times day OXYCODONE HCL [id number] Ben Dietz MD Start: 11-22-2012 take 1 tablet by deirdre four times daily OXYCONTIN 40 MG [id number] One tablet by mouth four times day OXYCODONE HCL [id number] Ben Dietz MD Start: 06-02-2012 take 1 tablet by deirdre th four times daily OXYCODONE HCL 20 MG TABS One tablet by mouth four times daily OXYCODONE HCL [id number] Ben Dietz MD Start: 04-02-2011 take 1 tablet by deirdre three times daily OXYCODONE HCL 20 MG TABS One tablet by mouth three times daily OXYCODONE HCL [id number] Gaby Higgins pantoprazole 40 mg injection (2 sources) Proton Pump Inhibitor Start: 09-18-2014 End: 09-21-2014 take 1 tablet by mouth once daily PROTONIX 40 MG SOLR One tablet by mouth daily PANTOPRAZOLE SODIUM [id number] Ben Dietz MD perflutren protein A microsphere (Optison) 3 mL in sodium chloride (PF) 0.9 % 10 mL IV syringe (2 sources) Start: 09-10-2023 End: 09-10-2023 perflutren protein A microsphere (Optison) 3 mL in sodium chloride (PF) 0.9 % 10 mL IV syringe polyethylene glycol [id number] mg powder for oral solution (2 sources) [...] daily. 0 09/04/2022 04/30/2023 Discontinued (Therapy completed) potassium gluconate 2.5 meq oral tablet (20 sources) Start: 07-25-2021 End: 11-11-2023 Potassium 99 mg tablet Discontinued 550 mg PO DAILY July 25, 2021 9:33am November 11, 2023 9:12am SUPPLEMENT Start: 07-25-2021 take 550 mg by mouth once jazz y Potassium Active 550 MG PO DAILY July 25, 2021 9:33am Start: 09-09-2017 End: 07-25-2021 take 1 tablet by mouth once daily Potassium 99 mg tablet Discontinued 99 mg PO DAILY October 18, 2019 8:26am July 25, 2021 9:34am SUPPLEMENT pravastatin sodium 40 mg oral tablet (1 source) HMG-CoA Reductase Inhibitor Start: 09-18-2014 take 1 tablet by mouth at bedtime PRAVASTATIN SODIUM 40 MG TABS One tablet by mouth at bedtime. PRAVASTATIN SODIUM [id number] Anjali Steen RN predniSONE 10 mg oral [...] tablet by mouth three times daily PREGABALIN [id number] Anjali Steen RN [facility], long-[facility] 8.6 mg oral tablet (2 sources) Start: [...] Do not crush, chew, or split. Start: 07-29-2023 End: 07-30-2023 take 0.4 mg by mouth once daily 0.4 mg, Oral, Daily, F irst dose on Thu07/29/23 at 1245, Do not crush, chew, or split. Start: 09-08-2018 take 1 capsule by mo ut twice daily Tamsulosin 0.4 mg capsule Active 0.4 mg PO TWICE A DAY September 08, 2018 8:41am urinary tract Start: 08-26-2017 End: 09-08-2018 take 1 capsule by mouth once daily Tamsulosin 0.4 mg capsule,extended release 24hr Discontinued 0.4 mg PO DAILY September 09, 2017 10:15am September 08, 2018 8:44am Start: 10-04-2014 End: 09-09-2017 take 0.8 mg by mouth once daily Tamsulosin Discontinue d 0.8 MG PO DAILY October 04, 2014 12:00am September 09, 2017 10:21am Start: 09-21-2014 End: 09-09-2017 take 2 capsules by mouth once daily Tamsulosin 0.4 MG capsule Discontinued 0.8 mg PO DAILY October 04, 2014 12:00am September 09, 2017 10:21am Start: 09-21-2014 take 1 tablet by [facility] once daily FLOMAX 0.4 MG CAPS One tablet by mouth daily TAMSULOSIN HCL [id number] Ben Dietz MD take 1 capsule by [facility] every twenty-four hours in the morning tamsulosin (Flomax) 0.4 MG 24 hr capsule Take 0.4 mg by mouth in the morning and 0.4 mg in the evening. Active Comment on above: Take 0.4 mg by mouth twice daily. tolterodine tartrate 2 mg oral tablet (20 sources) Cholinergic Muscarinic Antagonist Start: 9 End: 1 take 1 tablet by mouth at bedtime Tolterodine 2 mg tablet Discontinued 2 mg PO AT BEDTIME April 18, 2019 1:00am January 16, 2021 8:41am topiramate 100 mg oral tablet (2 sources) Anti-epileptic Agent Start: 5 End: 5 take 1 tablet by mouth once daily TOPAMAX 100 MG TABS One tablet by mouth daily TOPIRAMATE [id number] Anjali Steen RN varenicline 0.5 mg oral tablet (7 sources) Partial Cholinergic Nicotinic Agonist Start: 3 End: 3 take 1 tablet by mouth once varenicline (Chantix HUMA) 0.5 MG X 11 & 1 MG X 42 tablet on day 1 to 3 take 1 ( 0.5 milligram ) tablet by mouth once daily... (REFER TO PRESCRIPTION NOTES). 0 08/27/2022 04/30/2023 Discontinued (Therapy completed) End: 06-10-2024 take 1 tablet by mouth twice daily varenicline (CHANTIX) 1 mg tablet Take 1 mg by mouth twice daily. 06/10/2024 Discontinued (Course of therapy completed) Comment on above: Take 1 mg by mouth t wice daily. vilazodone hydrochloride 40 mg oral tablet (20 sources) Start: 09-09-2017 End: 04-18-2019 take 1 tablet by mouth once daily Vilazodone 40 mg tablet Discontinued 40 mg PO daily September 09, 2017 10:15am April 18, 2019 9:34am Start: 05-12-2015 End: 09-09-2017 take 1 tablet by mouth twice daily Vilazodone 40 MG tablet Discontinued 40 mg PO TWICE A DAY May 12, 2015 1:00am September 09, 2017 10:21am vitamin e 180 mg oral capsule (20 sources) Start: 01-31-2022 End: 08-13-2023 take 1 capsule by mouth once daily Vitamin E (Dl, Acetate) 180 mg (400 unit) capsule Discontinued 180 mg PO DAILY January 31, 2022 12:00am August 13, 2023 8:45am Start: 09-09-2017 End: 12-31-2020 Vitamin E (Dl, Acetate) 400 unit capsule Discontinued 400 U PO daily September 09, 2017 12:00am December 31, 2020 8:33am vitamin k1 5 mg oral tablet (20 sources) Warfarin Reversal Agent, Vitamin K Start: 07-08-2019 End: 10-18-2019 take 1 tablet by mouth once daily Phytonadione (Vitamin K1) 5 mg tablet Discontinued 5 mg PO DAILY 1 July 08, 2019 1:00am October 18, 2019 8:27am warfarin sodium 2.5 mg oral tablet (20 sources) Vitamin K Antagonist Start: 07-08-2019 End: 03-17-2024 take 1 tablet by mouth once daily Warfarin 2.5 mg tablet Discontinued 2.5 mg PO DAILY 90 3 February 05, 2024 1:24pm March 17, 2024 11:09am BLOOD THINNER Please contact the information source for Protocol details. Start: 01-21-2018 End: 07-08-2019 Warfarin 1 mg tablet Discont inued 1 mg PO .COMPLEX 60 11 October 21, 2018 8:34am July 08, 2019 10:46am 1 mg PO 2 tablets (2mg) every day, except on Sat and Sun take 4 tablets (4 mg) Please contact the information source for Protocol details. Start: 09-23-2017 End: 01-21-2018 take 1 tablet by mouth every week Warfarin 1 mg tablet Discontinued 1 mg PO .COMPLEX 60 November 20, 2017 3:09pm January 21, 2018 5:05pm 1 mg PO 2 tablets (2mg) on , Thus, , and Thu; and 1.5 tablets (1.5 mg) rest of week Please contact the information source for Protocol details. Start: 08-26-2017 Coumadin 2 mg oral tablet Dose : 2 mg = 1 tab(s), Oral, Daily, 0 Refill(s) Start Date: 08/26/17 Status: Ordered Start: 09-21-2014 End: 09-23-2017 Warfarin 1 mg tablet Discont inued 1 mg PO .COMPLEX August 19, 2017 2:44pm September 23, 2017 1:46pm 1 mg PO 2 tablets (2mg) on , , and 1.5 tablets (1.5 mg) rest of week Please contact the information source for Protocol details. Start: 09-21-2014 End: 06-10-2024 COUMADIN 3 MG TABS 1/2 table t (1.5 mg) Sat.-, and one tablet (3mg) Thu-Thu WARFARIN SODIUM [id number] Ben Dietz MD Start: 09-21-2014 COUMADIN 5 MG TABS Take as directed current dose 5 mg x 5 days, 2.5 mg x 2 days WARFARIN SODIUM [id number] Ben Dietz MD Start: 09-18-2014 End: 12-05-2016 COUMADIN 2.5 MG TABS Take as directed - current dose 2.5 x 6 days and 3.75 mg x 1 day WARFARIN SODIUM [id number] Gabi Collazo PA-C End: 07-16-2023 take 1 tablet by mouth in the morning warfarin (Coumadin) 3 MG tablet Take 3 mg by mouth in the morning. 0 07/16/2023 Discontinued Comment on above: Take 3 mg by mouth d aily as directed. 1 tablet 1/2 tablet other days Problems Active Problems Problem Classification Problem Date Documented Date Episodic/Chronic Acute cerebrovascular disease (20 sources) Hematoma of subdural space of neuraxis; Translations: [SDH (subdural hematoma) (HCC)] Onset: 01-01-2024 01-01-2024 Chronic Alcohol-related disorders (20 sources) Severe alcohol dependence; Translations: [Alcohol dependence, uncomplicated] Onset: 11-23-2017 02-27-2022 Chronic Alcohol-related disorders (4 sources) Alcohol intoxication; Translations: [Alcohol use, unspecified with intoxication, unspecified] 12-09-2023 Episodic Anxiety disorders (20 sources) Anxiety disorder; Translations: [Anxiety disorder, unspecified] Onset: 04-30-2023 05-13-2016 Chronic Cardiac dysrhythmias (20 sources) Sick sinus syndrome; Translations: [Cardiac arrhythmia, unspecified] Onset: 04-02-2011 Resolved: 02-15-2016 02-15-2016 Chronic Chronic kidney disease (20 sources) Chronic kidney disease stage 2; Translations: [Chronic kidney disease, stage 2 (mild)] Onset: 07-16-2023 07-16-2023 Chronic Chronic ulcer of skin (20 sources) Chronic non-pressure ulcer of calf extending to fat level; Translations: [Non-pressure chronic ulcer of right calf with fat layer exposed] Onset: 04-30-2023 Chronic Conditions associated with dizziness or vertigo (5 sources) Postural dizziness; Translations: [Dizziness and giddiness] 09-25-2023 Episodic Conduction disorders (20 sources) Cardiac pacemaker in situ; Translations: [Presence of cardiac pacemaker] Onset: 10-19-2014 10-19-2014 Chronic Congestive heart failure; nonhypertensive (20 sources) 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; Translations: [Right heart failure, unspecified] Onset: 04-30-2023 04-30-2023 Chronic Deficiency and other anemia (6 sources) Anemia, unspecified; Translations: [Anemia, unspecified] 02-13-2023 Episodic Disorders of lipid metabolism (20 sources) Hyperlipidemia; Translations: [Pure hypercholesterolemia] Onset: 01-25-2015 01-25-2015 Chronic Essential hypertension (20 sources) Hypertensive disorder; Translations: [Essential (primary) hypertension] Onset: 01-13-2011 05-13-2016 Chronic Heart valve disorders (20 sources) Mitral valve disorder; Translations: [Non-rheumatic mitral regurgitation ] Onset: 01-13-2011 Resolved: 02-15-2016 12-09-2013 Chronic Infective arthritis and osteomyelitis (except that caused by tuberculosis or sexually transmitted disease) (20 sources) Osteomyelitis; Translations: [Osteomyelitis, unspecified] Onset: 01-08-2011 03-26-2023 Chronic Mood disorders (20 sources) Depressive disorder; Translations: [Depressive disorder] Onset: 04-30-2023 04-30-2023 Chronic Nutritional deficiencies (20 sources) Vitamin D deficiency; Translations: [Vitamin D deficiency, unspecified] Onset: 02-25-2023 04-30-2023 Chronic Open wounds of extremities (20 sources) Injury of lower extremity; Translations: [Unspecified open wound, right lower leg, initial encounter] Episodic Comment on above: This is a 66-year-ol d male who presents with a now chronic wound of his right lower extremity after a fall onto some wood 2 weeks ago. He was referred to the ED last evening out of concern for possible thigh abscess but on exam there is no other sign of infection and given that he is currently anticoagulated, I suspect this is an intramuscular hematoma that should resolve spontaneously. From a vascular standpoint he appears to have adequate and arterial inflow with palpable pulses. He does seem to have an issue with some venous stasis and therefore I have recommended slight compression therapy (given his history of prior injury and longtime tobacco use). Encouragingly, is noted to have a negative venous Doppler study. I was careful to caution him against overly tight compression that would compromise his vascular inflow and instructed him to elevate that extremity is much as possible. Given the degree of cellulitis, I have added a prescription for Diflucan since his wound cultures have returned presumptively positive for C albicans. Lastly I have referred him to our wound care center for further attention to this area. 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] 02-23-2024 Episodic Other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 [facility] Automated lymphocyte count a s percentage of total leukocytesOrdered By: Fracisco Carvalho on 09-02-2024 Lymphocytes/100 WBC Auto (Unsp spec) 12.9 % Low 19-41 [facility] BUN/creatinine ratioOrdered By: Fracisco Carvalho on 09-02-2024 Urea nitrogen/Creatinine [Mass ratio] 20.3 mg/mg High 10-20 [facility] Basophil percentageOrdered B y: Fracisco Carvalho on 09-02-2024 Basophils/100 WBC (Bld) 0.4 % 0-1 [facility] Bilirubin, totalOrdered By: Fracisco Carvalho on 09-02-2024 Bilirubin [Mass/Vol] 0.84 mg/dL 0.00-1.30 [facility] CBC W/Diff, Automatedon 04- Absolute Lymph 0.90 X10 3/uL Normal 0.83-4.51 [facility] Comment on above: Performed By: #### L 506.1001, L100.0100, L500.4050, [id number] #### [facility] Laboratory [address] [place], [address] Absolute Neut 5.1 X10 3/uL Normal 2.0-7.7 [facility] Comment on above: Performed By: #### L 506.1001, L100.0100, L500.4050, [id number] #### [facility] Laboratory [address] [place], [address] Basophils/100 WBC (Bld) 0.4 % Normal 0-1 [facility] Comment on above: Performed By: #### L 506.1001, L100.0100, L500.4050, [id number] #### [facility] Laboratory [address] [place], [address] Eosinophils/100 WBC (Bld) 1.2 % Normal 0-5 [facility] Comment on above: Performed By: #### L 506.1001, L100.0100, L500.4050, [id number] #### [facility] Laboratory [address] [place], [address] Erythrocyte distribution width (RBC) [Ratio] 14.0 % Normal 11.6-14.6 [facility] Comment on above: Performed By: #### L 506.1001, L100.0100, L500.4050, [id number] #### [facility] Laboratory [address] [place], [address] Hematocrit (Bld) [Volume fraction] 36.6 % Low 40-54 [facility] Comment on above: Performed By: #### L 506.1001, L100.0100, L500.4050, [id number] #### [facility] Laboratory [address] [place], [address] Hemoglobin (Bld) [Mass/Vol] 13.0 g/dL Normal 13.0-16.5 [facility] Comment on above: Performed By: #### L 506.1001, L100.0100, L500.4050, [id number] #### [facility] Laboratory [address] [place], [address] IG% 0.600 Normal 0.0-0.9 [facility] Comment on above: Result Comment: IG% - Immature Granulocytes (promyelocytes, myelocytes and metamyelocytes) > 1% indicates that a LEFT SHIFT is Present. Performed By: #### L 506.1001, L100.0100, L500.4050, [id number] #### [facility] Laboratory [address] [place], [address] Lymphocytes/100 WBC (Bld) 12.9 % Low 19-41 [facility] Comment on above: Performed By: #### L 506.1001, L100.0100, L500.4050, [id number] #### [facility] Laboratory [address] [place], [address] MCH (RBC) [Entitic mass] 31.8 pg Normal 27.0-32.0 [facility] Comment on above: Performed By: #### L 506.1001, L100.0100, L500.4050, [id number] #### [facility] Laboratory [address] [place], [address] MCHC (RBC) [Mass/Vol] 35.5 g/dL Normal 32-36 [facility] Comment on above: Performed By: #### L 506.1001, L100.0100, L500.4050, [id number] #### [facility] Laboratory [address] [place], [address] MCV (RBC) [Entitic vol] 89.5 fL Normal 80-94 [facility] Comment on above: Performed By: #### L 506.1001, L100.0100, L500.4050, [id number] #### [facility] Laboratory [address] [place], [address] Monocytes/100 WBC (Bld) 12.2 % High 0-10 [facility] Comment on above: Performed By: #### L 506.1001, L100.0100, L500.4050, [id number] #### [facility] Laboratory [address] [place], [address] Neutrophils/100 WBC (Bld) 72.7 % High 47-70 [facility] Comment on above: Performed By: #### L 506.1001, L100.0100, L500.4050, [id number] #### [facility] Laboratory [address] [place], [address] Nucleated RBC (Bld) [#/Vol] 0 10*3/uL Normal 0-5 [facility] Comment on above: Performed By: #### L 506.1001, L100.0100, L500.4050, [id number] #### [facility] Laboratory [address] [place], [address] Platelet mean volume (Bld) [Entitic vol] 9.9 fL Normal 6.2-12.0 [facility] Comment on above: Performed By: #### L 506.1001, L100.0100, L500.4050, [id number] #### [facility] Laboratory [address] [place], [address] Platelets (Bld) [#/Vol] 127 10*3/uL Low 150-450 [facility] Comment on above: Performed By: #### L 506.1001, L100.0100, L500.4050, [id number] #### [facility] Laboratory [address] [place], [address] RBC (Bld) [#/Vol] 4.09 10*6/uL Low 4.6-6.2 [facility] Comment on above: Performed By: #### L 506.1001, L100.0100, L500.4050, [id number] #### [facility] Laboratory [address] [place], [address] RDW SD 45.4 fl High 35.1-43.9 [facility] Comment on above: Performed By: #### L 506.1001, L100.0100, L500.4050, [id number] #### [facility] Laboratory [address] [place], [address] WBC (Bld) [#/Vol] 7.0 10*3/uL Normal 4.4-11.0 [facility] Comment on above: Performed By: #### L 506.1001, L100.0100, L500.4050, [id number] #### [facility] Laboratory [address] [place], [address] Carbon dioxide, total [Moles /volume] in Central venous bloodOrdered By: Fracisco Carvalho on 09-02-2024 CO2 [Moles/Vol] 23.7 mmol/L 21.0-32.0 [facility] Chloride assayOrdered By: Ash Carvalho on 09-02-2024 Chloride [Moles/Vol] 99 mmol/L 98-108 [facility] Comprehensive Metabolic Prof ilon 09-02-2024 Albumin [Mass/Vol] 4.1 g/dL Normal 3.4-4.8 [facility] Comment on above: Order Comment: TSH Performed By: #### L 506.1001, L100.0100, L500.4050, [id number] #### [facility] Laboratory [address] [place], [address] Albumin/Globulin [Mass ratio] 1.3 {ratio} Normal 0.9-2.4 [facility] Comment on above: Order Comment: TSH Performed By: #### L 506.1001, L100.0100, L500.4050, [id number] #### [facility] Laboratory [address] [place], [address] ALK PHOS 72 U/L Normal 40-129 [facility] Comment on above: Order Comment: TSH Performed By: #### L 506.1001, L100.0100, L500.4050, [id number] #### [facility] Laboratory [address] [place], [address] ALT [Catalytic activity/Vol] 19 U/L Normal <=46 [facility] Comment on above: Order Comment: TSH Performed By: #### L 506.1001, L100.0100, L500.4050, [id number] #### [facility] Laboratory [address] [place], [address] AST [Catalytic activity/Vol] 31 U/L Normal <=37 [facility] Comment on above: Order Comment: TSH Result Comment: Hemo lysis present, Results??could be affected. ?? Performed By: #### L 506.1001, L100.0100, L500.4050, [id number] #### [facility] Laboratory [address] [place], [address] Bilirubin [Mass/Vol] 0.84 mg/dL Normal 0.00-1.30 [facility] Comment on above: Order Comment: TSH Performed By: #### L 506.1001, L100.0100, L500.4050, [id number] #### [facility] Laboratory [address] [place], [address] BUN/CRE 20.3 RATIO High 10-20 [facility] Comment on above: Order Comment: TSH Performed By: #### L 506.1001, L100.0100, L500.4050, [id number] #### [facility] Laboratory [address] [place], [address] Calcium [Mass/Vol] 9.2 mg/dL Normal 7.6-11.0 [facility] Comment on above: Order Comment: TSH Performed By: #### L 506.1001, L100.0100, L500.4050, [id number] #### [facility] Laboratory [address] [place], [address] Chloride [Moles/Vol] 99 mmol/L Normal 98-108 [facility] Comment on above: Order Comment: TSH Performed By: #### L 506.1001, L100.0100, L500.4050, [id number] #### [facility] Laboratory [address] [place], [address] CO2 [Moles/Vol] 23.7 mmol/L Normal 21.0-32.0 [facility] Comment on above: Order Comment: TSH Performed By: #### L 506.1001, L100.0100, L500.4050, [id number] #### [facility] Laboratory [address] [place], [address] Creatinine [Mass/Vol] 1.05 mg/dL Normal 0.70-1.20 [facility] Comment on above: Order Comment: TSH Performed By: #### L 506.1001, L100.0100, L500.4050, [id number] #### [facility] Laboratory [address] [place], [address] GAP 12 Normal 5-15 [facility] Comment on above: Order Comment: TSH Performed By: #### L 506.1001, L100.0100, L500.4050, [id number] #### [facility] Laboratory [address] [place], [address] GFR/1.73 sq M.predicted among non-blacks MDRD (S/P/Bld) [Vol rate/Area] 77 mL/min/{1.73_m2} Normal >60 [facility] Comment on above: Order Comment: TSH Result Comment: mL/m in/1.73m2 CKD-EPI Creatinine Equation (2020) Performed By: #### L 506.1001, L100.0100, L500.4050, [id number] #### [facility] Laboratory [address] [place], [address] Globulin (S) [Mass/Vol] 3.3 g/dL Normal 2.2-4.2 [facility] Comment on above: Order Comment: TSH Performed By: #### L 506.1001, L100.0100, L500.4050, [id number] #### [facility] Laboratory [address] [place], [address] Glucose [Mass/Vol] 95 mg/dL Normal 70-99 [facility] Comment on above: Order Comment: TSH Performed By: #### L 506.1001, L100.0100, L500.4050, [id number] #### [facility] Laboratory [address] [place], [address] Potassium [Moles/Vol] 4.3 mmol/L Normal 3.3-5.1 [facility] Comment on above: Order Comment: TSH Result Comment: Hemo lysis present, Results??could be affected. ?? Performed By: #### L 506.1001, L100.0100, L500.4050, [id number] #### [facility] Laboratory [address] [place], [address] Sodium [Moles/Vol] 135 mmol/L Normal 133-145 [facility] Comment on above: Order Comment: TSH Performed By: #### L 506.1001, L100.0100, L500.4050, [id number] #### [facility] Laboratory [address] [place], [address] T PROT 7.4 g/dL Normal 5.9-8.4 [facility] Comment on above: Order Comment: TSH Performed By: #### L 506.1001, L100.0100, L500.4050, [id number] #### [facility] Laboratory [address] [place], [address] Urea nitrogen [Mass/Vol] 21 mg/dL High 4-19 [facility] Comment on above: Order Comment: TSH Performed By: #### L 506.1001, L100.0100, L500.4050, [id number] #### [facility] Laboratory [address] [place], [address] Eosinophil percentageOrdered By: Fracisco Carvalho on 09-02-2024 Eosinophils/100 WBC (Bld) 1.2 % 0-5 [facility] Erythrocyte distribution wid th ratioOrdered By: Fracisco Carvalho on 09-02-2024 Erythrocyte distribution width (RBC) [Ratio] 14.0 % 11.6-14.6 [facility] Erythrocyte distribution wid th standard deviationOrdered By: Fracisco Carvalho 09-02-2024 Erythrocyte distribution width (RBC) [Ratio] 45.4 fl High 35.1-43.9 [facility] Glomerular filtration rate ( GFR) estimation/1.73 sq m using serum, plasma, or whole bOrdered By: Fracisco Carvalho on 09-02-2024 GFR/1.73 sq M.predicted among non-blacks MDRD (S/P/Bld) [Vol rate/Area] 77 mL/min/{1.73_m2} >60 [facility] Comment on above: mL/min/1.73m2 CKD-EP I Creatinine Equation (2020) Hematocrit Auto (Bld) [Volum e fraction]Ordered By: Fracisco Carvalho on 09-02-2024 Hematocrit (Bld) [Volume fraction] 36.6 % Low 40-54 [facility] Hemoglobin measurementOrdere d By: Fracisco Carvalho on 09-02-2024 Hemoglobin (Bld) [Mass/Vol] 13.0 g/dL 13.0-16.5 [facility] Immature granulocytes/100 WB C Auto (Bld)Ordered By: Fracisco Carvalho on 09-02-2024 Immature granulocytes/100 WBC (Bld) 0.600 % 0.0-0.9 [facility] Comment on above: IG% - Immature Granu locytes (promyelocytes, myelocytes and metamyelocytes) > 1% indicates that a LEFT SHIFT is Present. Laboratory - Chemistry and C hemistry - challengeOrdered By: Fracisco Carvalho on 09-02-2024 AST [Catalytic activity/Vol] 31 U/L <38 [facility] Comment on above: Hemolysis present, R esults could be affected. MCV (mean corpuscular volume ) determinationOrdered By: Fracisco Carvalho on 09-02-2024 MCV (RBC) [Entitic vol] 89.5 fL 80-94 [facility] Mean corpuscular hemoglobin (MCH) determinationOrdered By: Fracisco Carvalho 09-02-2024 MCH (RBC) [Entitic mass] 31.8 pg 27.0-32.0 [facility] Mean corpuscular hemoglobin concentration (MCHC) determinationOrdered By: Fracisco Carvalho 09-02-2024 MCHC (RBC) [Mass/Vol] 35.5 g/dL 32-36 [facility] Mean platelet volume determi nationOrdered By: Fracisco Carvalho 09-02-2024 Platelet mean volume (Bld) [Entitic vol] 9.9 fL 6.2-12.0 [facility] Monocyte percentageOrdered B y: Fracisco Carvalho on 09-02-2024 Monocytes/100 WBC (Bld) 12.2 % High 0-10 [facility] Neutrophil percentageOrdered By: Fracisco Carvalho on 09-02-2024 Neutrophils/100 WBC (Bld) 72.7 % High 47-70 [facility] Nucleated red blood cell per centageOrdered By: Fracisco Carvalho on 09-02-2024 Nucleated RBC/100 WBC (Bld) [Ratio] 0 % 0-5 [facility] Platelet countOrdered By: Ash Carvalho on 09-02-2024 Platelets (Bld) [#/Vol] 127 10*3/uL Low 150-450 [facility] Potassium measurement (mass/ volume)Ordered By: Fracisco Carvalho on 09-02-2024 Potassium (Unsp spec) [Mass/Vol] 4.3 mmol/L 3.3-5.1 [facility] Comment on above: Hemolysis present, R esults could be affected. RBC Auto (Bld) [#/Vol]Ordere d By: Fracisco Carvalho on 09-02-2024 RBC (Bld) [#/Vol] 4.09 10*6/uL Low 4.6-6.2 [facility] Serum creatinine measurement (mass/volume)Ordered By: Fracisco Carvalho 09-02-2024 Creatinine [Mass/Vol] 1.05 mg/dL 0.70-1.20 [facility] Serum globulin measurementOr dered By: Fracisco Carvalho 09-02-2024 Globulin (S) [Mass/Vol] 3.3 g/dL 2.2-4.2 [facility] Serum glucose measurement (m ass/volume)Ordered By: Fracisco Carvalho 09-02-2024 Glucose [Mass/Vol] 95 mg/dL 70-99 [facility] Serum or plasma alanine foster otransferase (ALT) measurementOrdered By: Fracisco Carvalho 09-02-2024 ALT [Catalytic activity/Vol] 19 U/L <47 [facility] Serum or plasma albumin josephine urement (mass/volume)Ordered By: Fracisco Carvalho 09-02-2024 Albumin [Mass/Vol] 4.1 g/dL 3.4-4.8 [facility] Serum or plasma albumin/glob ulin mass ratioOrdered By: Fracisco Carvalho 09-02-2024 Albumin/Globulin [Mass ratio] 1.3 {ratio} 0.9-2.4 [facility] Serum or plasma alkaline stephen sphatase measurementOrdered By: Fracisco Carvalho 09-02-2024 ALP [Catalytic activity/Vol] 72 U/L 40-129 [facility] Serum or plasma calcium josephine urement (mass/volume)Ordered By: Fracisco Carvalho 09-02-2024 Calcium [Mass/Vol] 9.2 mg/dL 7.6-11.0 [facility] Serum or plasma urea nitroge n measurement (mass/volume)Ordered By: Fracisco Carvalho on 09-02-2024 Urea nitrogen [Mass/Vol] 21 mg/dL High 4-19 [facility] Sodium levelOrdered By: Fracisco Carvalho on 09-02-2024 Sodium [Moles/Vol] 135 mmol/L 133-145 [facility] TSH DL <= 0.005 mIU/L QnOrde red By: Fracisco Carvalho on 09-02-2024 TSH Qn 1.230 uIU/mL 0.300-4.20 0 [facility] Thyroid Stim Hormone (TSH)on 09-02-2024 TSH 1.230 uIU/mL Normal 0.300-4.20 0 [facility] Comment on above: Performed By: #### L 506.1001, L100.0100, L500.4050, L501.9520 #### [facility] Laboratory [address] [place], [place], [id number] Total proteinOrdered By: Fracisco Carvalho on 09-02-2024 Protein [Mass/Vol] 7.4 g/dL 5.9-8.4 [facility] Vitamin D,25 Hydroxyon 09-02 Vitamin D 25-OH 73.2 ng/mL Normal 30-100 [facility] Comment on above: Result Comment: Yasemin min D Status Deficiency: <20 ng/mL (50nmol/L) Insufficiency: 20-30 ng/mL (50-75 nmol/L) Sufficiency: 30-100 ng/mL (75-250 nmol/L) Toxicity: >100 ng/mL (>250 nmol/L) Performed By: #### L 506.1001, L100.0100, L500.4050, L501.9520 #### [facility] Laboratory [address] [place], [place], [id number] White blood cell (WBC) count Ordered By: Fracisco Carvalho on 09-02-2024 WBC (Bld) [#/Vol] 7.0 10*3/uL 4.4-11.0 [facility] 36on 08-31-2024 36 Called pt with instructions to start the Pradaxa 150 mg twice daily after stopping the Eliquis- rx sent to [facility] pharmacy. Pt verbalized understanding. [facility] 36 done [facility] 36 LMOVM for spouse wit h this information- my chart message also sent. Requested spouse call back with medication decision- Pradaxa most cost effective to replace Eliquis, no substitute for Jardiance. [facility] 36on 08-30-2024 36 Both Jardiance and F arxiga show about $400/90ds. Xarelto also showing about the same cost as Eliquis at a little over $400/90ds. Unfortunately through Medicare plans Eliquis/Xarelto and Jardiance/Farxiga typically fall within the same tier and will be very comparable cost for the patient. Generic Pradaxa is slightly more cost effective showing at about $262/90ds. Thank you! [facility] 36on 08-26-2024 36 [facility]ts [facility] and [facility] that [facility]ardiance & Eliquis [facility] Pacemaker Checkon 08-17-2024 Pacemaker Check [facility] [address] [place] [address] Pacemaker Check Date of Service: 08/17/241536 MR#: [id number] Acct: [id number] Name: BRIANNE WALLS Rep #: [id number] : 1955 From: Estefania Sandhu Age/Sex: 69/M Location: [facility] Status: Signed Billing Codes PM Device Codes: 07023 PM Dev Prog Eval, Dual Assessment and Plan Assessment and Plan (1) Sick sinus syndrome: Status: Acute (2) Cardiac pacemaker in situ: Status: Chronic (3) Paroxysmal atrial fibrillation: Status: Acute 08/17/24 1538 Date Estefania Barahonaignangela Signature: Date (if applicable) CC: Normal [facility] Pacemaker Checkon 07-13-2024 Pacemaker Check [facility] [address] [place] [address] Pacemaker Check Date of Service: 07/13/24 1354 MR#: [id number] Acct: [id number] Name: BRIANNE WALLS Rep #: [id number] : 1955 From: Estefania Sandhu Age/Sex: 69/M Location: [facility] Status: Signed Billing Codes PM Device Codes: 80661 PM Dev Prog Eval, Dual Assessment and Plan Assessment and Plan (1) Sick sinus syndrome: Status: Acute (2) Cardiac pacemaker in situ: Status: Chronic 07/13/24 1355 Date Estefania Patricio Signature: Date (if applicable) CC: Normal [facility] 36on 07-08-2024 36 YANE KV 02/23/24 NOV KV 02/22/25 Labs 07/07/24 Rx Pending Normal [facility] Basic metabolic 2000 panelon 07-07-2024 Anion gap [Moles/Vol] 9 mmol/L Normal 8-15 [facility] Comment on above: Order Comment: Speci men Type: BLOOD SPECIMENOrdering Facility: [facility] Address: [address] [place] [address] Performed By: #### 2 4321-2 ####[facility]ATORYCLIA [id number] [place] [address] [place] Calcium [Mass/Vol] 8.9 mg/dL Normal 8.5-10.2 [facility] Comment on above: Order Comment: Speci men Type: BLOOD SPECIMENOrdering Facility: [facility] Address: [address] [place] [address] Performed By: #### 2 4321-2 ####[facility]ATORYCLIA [id number] [place] [address] [place] Chloride [Moles/Vol] 101 mmol/L Normal 98-107 [facility] Comment on above: Order Comment: Speci men Type: BLOOD SPECIMENOrdering Facility: [facility] Address: [address] [place] [address] Performed By: #### 2 4321-2 ####[facility]ORATORYCLIA [id number] [address] [place] CO2 [Moles/Vol] 26 mmol/L Normal 22-30 [facility] Comment on above: Order Comment: Speci men Type: BLOOD SPECIMENOrdering Facility: [facility] Address: [address] [place] [address] Performed By: #### 2 4321-2 ####[facility]ORATORYCLIA [id number] [place] [address] [place] Creatinine [Mass/Vol] 0.86 mg/dL Normal 0.73-1.22 [facility] Comment on above: Order Comment: Speci men Type: BLOOD SPECIMENOrdering Facility: [facility] Address: [address] [place] [address] Performed By: #### 2 4321-2 ####[facility] LABORATORYCLIA [id number] [address] Creatinine and Glomerular filtration rate.predicted panel (S/P/Bld) 94 mL/min/1.73m??? Normal >=60 [facility] Comment on above: Order Comment: Speci men Type: BLOOD SPECIMENOrdering Facility: [facility] Address: [address] [place] [address] Result Comment: Angie mated Glomerular Filtration Rate (eGFR) is calculated using the 2020 CKD-EPI creatinine equation. This equation utilizes serum creatinine, sex, and age as parameters. The creatinine assay has traceable calibration to isotope dilution-mass spectrometry. Refer to KDIGO guidelines for clinical interpretation. In patients with unstable renal function, e.g. those with acute kidney injury, the eGFR may not accurately reflect actual GFR. Performed By: #### 2 4321-2 ####[facility]ATORYCLIA [id number] [place] [address] [place] Glucose [Mass/Vol] 95 mg/dL Normal 74-99 [facility] Comment on above: Order Comment: Speci men Type: BLOOD SPECIMENOrdering Facility: [facility] Address: [address] [place] [address] Result Comment: The [place] Diabetes [employer] (ADA) provides guidance for cutoff values for fasting glucose and random glucose. The ADA defines fasting as no caloric intake for at least 8 hours. Fasting plasma glucose results between 100 to 125 mg/dL indicate increased risk for diabetes (prediabetes). Fasting plasma glucose results greater than or equal to 126 mg/dL meet the criteria for diagnosis of diabetes. In the absence of unequivocal hyperglycemia, results should be confirmed by repeat testing. In a patient with classic symptoms of hyperglycemia or hyperglycemic crisis, random plasma glucose results greater than or equal to 200 mg/dL meet the criteria for diagnosis of diabetes. Reference: Standards of Medical Care in Diabetes 2016, [place] [employer]. Diabetes Care. 2016.39(Suppl 1). Performed By: #### 2 4321-2 ####[facility]ATORYCLIA [id number] [place] [address] [place] Potassium [Moles/Vol] 4.1 mmol/L Normal 3.7-5.1 [facility] Comment on above: Order Comment: Speci men Type: BLOOD SPECIMENOrdering Facility: [facility] Address: [address] [id number] Performed By: #### 2 4321-2 ####[facility]ORATORYCLIA [id number] [place] [id number] [place] Sodium [Moles/Vol] 136 mmol/L Normal 136-144 [facility] Comment on above: Order Comment: Speci men Type: BLOOD SPECIMENOrdering Facility: [facility] Address: [address] [place] [address] Performed By: #### 2 4321-2 ####[facility]ORATORYCLIA [id number] [address] STATES [facility] Urea nitrogen [Mass/Vol] 19 mg/dL Normal 9-24 [facility] Comment on above: Order Comment: Speci men Type: BLOOD SPECIMENOrdering Facility: [facility] Address: [address] [place] [address] Performed By: #### 2 4321-2 ####[facility]ORATORYCLIA [id number] [address] CBC panel Auto (Bld)on 07-07 Erythrocyte distribution width (RBC) [Ratio] 14.0 % Normal 11.5-15.0 [facility] Comment on above: Order Comment: Speci men Type: BLOOD SPECIMENOrdering Facility: [facility] Address: [address] [place] [address] Performed By: #### 5 8410-2 ####[facility] LABORATORYCLIA [id number] [address] STATES [facility] Hematocrit (Bld) [Volume fraction] 39.3 % Normal 39.0-51.0 [facility] Comment on above: Order Comment: Speci men Type: BLOOD SPECIMENOrdering Facility: [facility] Address: [address] [place] [address] Performed By: #### 5 8410-2 ####[facility] LABORATORYCLIA [id number] [address] Hemoglobin (Bld) [Mass/Vol] 13.2 g/dL Normal 13.0-17.0 [facility] Comment on above: Order Comment: Speci men Type: BLOOD SPECIMENOrdering Facility: [facility] Address: [address] [place] [address] Performed By: #### 5 8410-2 ####[facility]ORATORYCLIA [id number] [address] MCH (RBC) [Entitic mass] 31.0 pg Normal 26.0-34.0 [facility] Comment on above: Order Comment: Speci men Type: BLOOD SPECIMENOrdering Facility: [facility] Address: [address] [place] [address] Performed By: #### 5 8410-2 ####[facility]ORATORYCLIA [id number] [address] STATES [facility] MCHC (RBC) [Mass/Vol] 33.6 g/dL Normal 30.5-36.0 [facility] Comment on above: Order Comment: Speci men Type: BLOOD SPECIMENOrdering Facility: [facility] Address: [address] [place] [address] Performed By: #### 5 8410-2 ####[facility] LABORATORYCLIA [id number] [address] STATES OF [facility] MCV (RBC) [Entitic vol] 92.3 fL Normal 80.0-100.0 [facility] Comment on above: Order Comment: Speci men Type: BLOOD SPECIMENOrdering Facility: [facility] Address: [address] [place] [address] Performed By: #### 5 8410-2 ####[facility] LABORATORYCLIA [id number] [address] Nucleated RBC (Bld) [#/Vol] 10*3/uL Normal <0.01 [facility] Comment on above: Order Comment: Speci men Type: BLOOD SPECIMENOrdering Facility: [facility] Address: [address] [place] [address] Performed By: #### 5 8410-2 ####[facility]ATORYCLIA [id number] [address] Platelet mean volume (Bld) [Entitic vol] 10.3 fL Normal 9.0-12.7 [facility] Comment on above: Order Comment: Speci men Type: BLOOD SPECIMENOrdering Facility: [facility] Address: [address] [place] [address] Performed By: #### 5 8410-2 ####[facility] LABORATORYCLIA [id number] [address] OF [facility] Platelets (Bld) [#/Vol] 113 10*3/uL Low 150-400 [facility] Comment on above: Order Comment: Neena marques Type: BLOOD SPECIMENOrdering Facility: [facility] Address: [address] [place] [address] Result Comment: No c lot detected. Performed By: #### 5 8410-2 ####[facility]ORATORYCLIA [id number] [address] OF [facility] RBC (Bld) [#/Vol] 4.26 10*6/uL Normal 4.20-6.00 [facility] Comment on above: Order Comment: Neena maruqes Type: BLOOD SPECIMENOrdering Facility: [facility] Address: [address] [place] [address] Performed By: #### 5 8410-2 ####[facility] [id number] [address] WBC (Bld) [#/Vol] 6.41 10*3/uL Normal 3.70-11.00 [facility] Comment on above: Order Comment: Neena marques Type: BLOOD SPECIMENOrdering Facility: [facility] Address: [address] [place] [address] Performed By: #### 5 8410-2 ####[facility]ORATORYCLIA [id number] [address] CNDSon 07-07-2024 CNDS HNO ID: [id number] Author: KARTHIK SNIDER APRN.FEATHERER Service: Electrophysiology Author Type: Nurse Practitioner Type: Discharge Summary Filed: 07/07/2024 12:02 Note Text: -- Attestation signed by Bruna North MD at 07/07/2024 3:57 PM Reviewed case. Agree with evaluation and plan of care as outlined by the VENDING STAND SUPERVISOR, as we discussed. -- DISCHARGE SUMMARY PATIENT NAME: Brianne Walls Code Status: Not on file Highest Readmission Risk Score: 12 The 30 day readmissions risk score is derived from an internally validated risk model which evaluates patient level characteristics, utilization history, medication orders and lab results up until the day of discharge. Patients with a score of 39 or above are considered highest risk for readmission. Specific patient level drivers will be listed at the bottom of the summary. Admission Information Admission Information ADMIT DATE: 07/06/2024 DISCHARGE DATE: 07/07/2024 MY DOCTORS AND MEDICAL TEAM: My Main Hospital Doctor: Bruna North MD Primary Care Provider: Fracisco Carvalho MD My Medical Team Members: Treatment Team: Attending Provider: Bruna North MD MY CONDITION AT DISCHARGE: Stable REASON I WAS IN THE HOSPITAL: Implantation of right ventricular pacemaker lead, abandoned/capped chronic right ventricular pacemaker lead, continued use of chronic right atrial lead, Saint Romeo dual-chamber pacemaker generator replacement, procedure performed by Dr. North 07/06/2024. SUMMARY OF WHAT HAPPENED WHILE I WAS IN THE HOSPITAL: The patient underwent implantation of right ventricular pacemaker lead, abandoned/capped chronic right ventricular pacemaker lead, continued use of chronic right atrial lead, Saint Romeo dual-chamber pacemaker generator replacement, procedure performed by Dr. North 07/06/2024. There were no intraprocedural complications. The patient recovered in the rapid observation unit where he was monitored overnight discharged home. OTHER PROBLEMS/DIAGNOSIS: Principal Problem: Pacemaker lead failure Active Problems: Bradycardia S/P placement of cardiac pacemaker Resolved Problems: * No resolved hospital problems. * OPERATIONS PERFORMED WHILE IN THE HOSPITAL: Implantation of right ventricular pacemaker lead, abandoned/capped chronic right ventricular pacemaker lead, continued use of chronic right atrial lead, Saint Romeo dual-chamber pacemaker generator replacement, procedure performed by Dr. North 07/06/2024. IMPORTANT TEST/PROCEDURES: Chest x-ray -shows pacemaker leads and device in appropriate position, no evidence of pneumothorax. Device check -shows normal function of pacemaker system. Discharge Disposition Discharge Disposition: Home With Self Care Activity When You Leave the Hospital Lifting is restricted to:no more than 8 lbs for 6 weeks Left arm May bathe and shower Left upper chest Aquacel dressing is waterproof, may shower, do not submerge the site. No driving for: one week No exercise for: six weeks, no lifting over head Left arm Diet Instructions Resume your pre-hospital diet For Pain When You Leave the Hospital Apply a covered cold pack to the area every two hours for two days 20 minutes at a time Use acetaminophen (Tylenol) as recommended on the bottle Wound/Surgical Site Care Any bruising and bumps should disappear within 3-4 days Avoid lotions or powders Check your wound every day Left upper chest pacemaker site If the bruising expands or the bump enlarges please call your doctor Some bruising, soreness or a small bump under the skin at the inserion site is normal Call Your Doctor If There is an unusual odor from the wound area There is severe pain at the operative site You have lightheadedness, fainting, or confusion You have persistent or heavy bleeding You have redness, swelling, pus or drainage from the wound Your temperature is greater than 101F Follow Up Appointments Follow-Up Appointment You will need to follow-up with Kalani Sandhu RN of [facility] in 7-10 days to have the Aquacel dressing removed, and arrange device check around 6 weeks, and subsequent follow-ups. When: In 1 week Matt Royal MD [phone] [facility] [address] [facility] [address] P[facility] Requested Referral Additional Provider to Provider Information: Principal Problem: S/P placement of cardiac pacemaker (POA: Yes) Assessment AND Plan: Mr. 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 Normal [facility] 07-07-2024 CNPN Telephone (AGCARDPOB ) -- BRIANNE WALLS ([id number]) 1955 M Date Time Provider Department 07/07/24 KARTHIK SNIDER AGCARDPOSagar During your visit today, we recorded the following information about you: Karthik Snider APRN.FEATHERER 07/07/2024 12:05 PM Signed Patient underwent Saint Romeo pacemaker generator change with implantation of new Saint Romeo right ventricular apex lead with capping of existing Saint Romeo right ventricular apex lead with Dr. North on 07/06/2024. Being discharged later today. Please contact Kalani Sandhu with [facility] to arrange Aquacel removal in 7 to 10 days as patient will continue to have his device followed there. Thanks, Karthik Snider APRN.FEATHERER July 07, 2024 12:04 PM Allergies As of Date: 07/07/2024 (No Known Allergies) Date Reviewed: 07/06/2024 Reviewed by: Manjo Khan, RN - Fully Assessed Reason for Visit: Wound Check [133] Appointment [186] Prescriptions as of 07/07/2024 - ELIQUIS 5 mg tab(s) Take 1 tablet by mouth two times a day. Patient should start on July 09, 2024. - doxepin capsule 150 mg Take 150 mg by mouth daily at bedtime. - levothyroxine (SYNTHROID) 112 mcg tablet Take 112 mcg by mouth once daily. - KLOR-CON M20 20 mEq tablet Take 20 mEq by mouth once daily. - buPROPion SR (WELLBUTRIN SR) 150 mg 12 hr tablet Take 150 mg by mouth two times a day. - HYDROcodone-acetaminophen (NORCO) 5-325 mg per tablet Take 1 tablet by mouth four times a day as needed for pain. - tiZANidine (ZANAFLEX) 4 mg tablet Take 1 tablet by mouth every 12 hours. - furosemide (LASIX) 40 mg tablet Take 40 mg by mouth as needed. - JARDIANCE 10 mg tablet Take 10 mg by mouth daily with breakfast. - spironolactone (ALDACTONE) 25 mg tablet Take 1 tablet by mouth every afternoon. - metoprolol succinate ER (TOPROL XL) 50 mg 24 hr tablet Take 50 mg by mouth once daily. - citalopram (CELEXA) 20 mg tablet Take 1 tablet by mouth every afternoon. - traZODone (DESYREL) 100 mg tablet Take 100 mg by mouth daily at bedtime. - folic acid 1 mg tablet Take 1 mg by mouth once daily. - tamsulosin ER (FLOMAX) 0.4 mg cp24 Take 0.4 mg by mouth twice daily. - atorvastatin (LIPITOR) 20 mg tablet Take 20 mg by mouth once daily. - nadolol (CORGARD) 40 mg tablet Take 40 mg by mouth once daily. Facility-Administered Medications as of 07/07/2024 - nadolol 40 mg tab(s) (CORGARD) - atorvastatin 20 mg tab(s) (LIPITOR) - furosemide 40 mg tab(s) (LASIX) - metoprolol succinate ER 50 mg tab(s) (TOPROL XL) - spironolactone 25 mg tab(s) (ALDACTONE) - empagliflozin 10 mg tab(s) (JARDIANCE) - buPROPion SR 150 mg tab(s) (WELLBUTRIN SR) - citalopram hydrobromide 20 mg tablet (CeleXA) - traZODone 100 mg tab(s) (DESYREL) - levothyroxine 112 mcg tab(s) (SYNTHROID) - tamsulosin 0.4 mg cap(s) (FLOMAX) - tiZANidine 4 mg tab(s) (ZANAFLEX) - ondansetron orally disintegrating 4 mg tab(s) (ZOFRAN ODT) - ondansetron (PF) 4 mg injection (ZOFRAN) - acetaminophen 650 mg tab(s) (TYLENOL) - oxyCODONE-acetaminophen 5-325 mg 1-2 tablet (PERCOCET) - potassium chloride ER 20 mEq tab(s) (KLOR-CON) - doxepin 150 mg cap(s) (SINEquan) Meds Comments as of 01/09/2011: pt. does not have list of meds with him and is in too much pain to review medications with me - mentioned taking oxycodone 40mg TID, NSAIDs, and vitamins. 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] 01/08/2011 SUMMARY [V999.95] 01/08/2011 Anemia [D64.9] 01/08/2011 01/15/2011 Osteomyelitis (HCC) [M86.9] 01/08/2011 Pre-op testing [Z01.818] 01/10/2011 01/13/2011 Preop testing [Z01.818] 01/12/2011 01/13/2011 Mitral regurgitation [I34.0] 01/13/2011 01/15/2011 Hypertension [I10] 01/13/2011 Bradycardia [R00.1] 01/13/2011 Stress hyperglycemia [R73.9] 01/13/2011 01/15/2011 Acute on Chronic Pain [G89.29] 01/13/2011 Acute blood loss anemia [D62] 01/18/2011 DVT (deep venous thrombosis) ([facility]) [I82.409] 01/23/2011 Pacemaker lead failure [T82.110A] 07/06/2024 S/P placement of cardiac pacemaker [Z95.0] 07/06/2024 Encounter Status:Closed by KARTHIK SNIDER on 07/07/24 [facility] No Panel Informationon 07-07 BLANK _ [facility] Implant Date 07/07/2024 [facility] PACEMAKER CLINIC CHECKon AMS Fallback Rate (bpm) 80 {beats}/min [facility] AV Delay Adaptive Paced Minimum (ms) 225 ms [facility] AV Delay Adaptive Rate Maximum (bpm) 130 {beats}/min [facility] AV Delay Adaptive Rate Minimum (bpm) 90 {beats}/min [facility] AV Delay Adaptive Sensed Minimum (ms) 200 ms [facility] AV Delay Adaptive Status Medium [facility] AV Delay Paced (ms) 100 ms [facility] AV Delay Sensed (ms) 100 ms [facility] Battery Voltage (volts) 2.96 V [facility] Angel RA Pacing Amplitude (volts) 2.5 V [facility] Angel RA Pacing Polarity BI [facility] Angel RA Pacing Pulse Width (ms) 0.5 ms [facility] Angel RA Sensing Blanking Period (ms) 150 ms [facility] Angel RA Sensing Polarity BI [facility] Angel RA Sensing Refractory Period (ms) 190 ms [facility] Angel RV Pacing Amplitude (volts) 3.25 V [facility] Angel RV Pacing Polarity BI [facility] Angel RV Pacing Pulse Width (ms) 0.5 ms [facility] Angel RV Sensing Amplitude (mvolts) 2.0 mV [facility] Angel RV Sensing Blanking Period (ms) 44 ms [facility] Angel RV Sensing Polarity BI [facility] Angel RV Sensing Refractory Period (ms) 250 ms [facility] Hysteresis Rate (bpm) Off [facility] Implant Date 10/10/2014 [facility] [employer] [facility] Location RV [facility] Location RA [facility] Lower Rate (bpm) 70 {beats}/min [facility] Max Sensor Rate (bmp) 130 {beats}/min [facility] Model 2272 Assurity MRI [facility] Model 8TC Tendril STS [facility] Model 1998 OptiSense [facility] Pacemaker Dependent? YES [facility] Pacing Mode DDDR [facility] PM-Device Mfg STJ [facility] PM-Percent Pacing (A) 99.82 % [facility] PM-Percent Pacing (V) 99.86 % [facility] PM-PMT Intervention Atrial Pace [facility] PM-PVC Intervention Atrial Pace [facility] PM-Rate Modulation Acceleration Reaction Fast [facility] PM-Rate Modulation Deceleration Medium [facility] PM-Rate Modulation [place] Auto (+2) [facility] PM-Rate Modulation Threshold Auto (+0.0) [facility] Rhythm No P waves or R wave s w/ rate decreased [facility] Serial Number [id number] [facility] Serial Number [id number] [facility] Serial Number [id number] [facility] Thresh RA Capture Amplitude (volts) 0.5 V [facility] Thresh RA Capture Duration (ms) 0.5 ms [facility] Thresh RV Capture Amplitude (volts) 0.5 V [facility] Thresh RV Capture Duration (ms) 0.5 ms [facility] Tracking Rate (bpm) 130 {beats}/min [facility] PPM check, dual lead system with programming. Patient ID x 2. PM check 1st day post implant. AQUACEL drsg intact left pectoral area. Scant drainage center of drsg. Presenting rhythm AP/CORE MACHINE OPERATOR at 70 BPM. No vent high rate or mode switch events. Measurements stable. EGM's without noise. Difficult to document RA capture. Unable to check sensing d/t lack of P/R waves w/ rate decreased. No changes made. Teaching completed. To have follow up in [place]. Will fax this report to that office. Doug WARE NOTE TO PROVIDERS: CARD Flowsheets contain detailed device programming and testing data. Paceart/Interrogation PDF can be found under CARDIAC DATA AND REPORT, Scanned Documents section. PACEART 07/07/2024 Formattin g of this note might be different from the original. PPM check, dual lead system with programming. Patient ID x 2. PM check 1st day post implant. AQUACEL drsg intact left pectoral area. Scant drainage center of drsg. Presenting rhythm AP/CORE MACHINE OPERATOR at 70 BPM. No vent high rate or mode switch events. Measurements stable. EGM's without noise. Difficult to document RA capture. Unable to check sensing d/t lack of P/R waves w/ rate decreased. No changes made. Teaching completed. To have follow up in [place]. Will fax this report to that office. Doug WARE NOTE TO PROVIDERS: CARD Flowsheets contain detailed device programming and testing data. Paceart/Interrogation PDF can be found under CARDIAC DATA AND REPORT, Scanned Documents section. [facility] XR CHEST 2V FRONTAL/LATon XR CHEST 2V FRONTAL/LAT * * *Final Repor t* * * DATE OF EXAM: Jul 07 2024 7:44AM [id number] [id number] - XR CHEST 2V FRONTAL/LAT / PROCEDURE REASON: Other * * * * Physician Interpretation * * * * EXAMINATION: CHEST RADIOGRAPH (2 VIEW FRONTAL and LATERAL) CLINICAL HISTORY: Other, s/p PPM revision, check lead position and r/o PTX MQ: [id number]_6 EXAM DATE/TIME: 07/07/2024 7:44 AM COMPARISON: No relevant prior studies available. RESULT: Lines, tubes, and devices: Left-sided cardiac pacing device with one lead in the region the right atrium and 2 leads overlying the inferior aspect of the heart. Aortic valve prosthesis noted. Intact median sternotomy wires. Lungs and pleura: Small right-sided pleural effusion. Architectural distortion throughout the remainder the lungs suggesting emphysema. Apical pleural nodularity. Cardiomediastinal silhouette: Normal cardiomediastinal silhouette. Bones and soft tissues: Compression deformity at approximately the T12-L1 level where the vertebral body has lost approximately 40% anterior vertebral body height IMPRESSION: Small right-sided pleural effusion. Changes of emphysema throughout the remainder the lungs. Shoe Handler: PSCB Transcribe Date/Time: Jul 07 2024 7:53A Dictated by : VEL TOPETE MD This examination was interpreted and the report reviewed and electronically signed by: VEL TOPETE MD on Jul 07 2024 7:56AM EST [id number] [facility] ANES POSTPROC EVALon 025 ANES POSTPROC EVAL HNO ID: [id number] Author: VEL JENNINGS MD Service: Anesthesiology Author Type: Physician Type: Anesthesia Postprocedure Evaluation Filed: 07/06/2024 13:32 Note Text: POST ANESTHESIA EVALUATION NOTE : 1955 Procedure Summary Date: 07/06/24 Room / Location: [facility] 02 / [place] [facility] Anesthesia Start: 0847 Anesthesia Stop: 1158 Procedure: INSERTION OF NEW OR REPLACEMENT OF PERMANENT PACEMAKER W/ TRANSVENOUS ELECTRODE(S) VENTRICULAR (Left) Diagnosis: Failure of pacemaker lead, initial encounter (Failure of pacemaker lead, initial encounter [T82.110A]) Surgeons: Bruna North MD Responsible Provider: Vel Jennings MD Anesthesia Type: MAC ASA Status: 3 Anesthesia Type: MAC Last Vitals Vitals Value Taken Time BP 128/69 07/06/24 1245 Temp 36.5 ?C (97.7 ?F) 07/06/24 1215 Pulse 70 07/06/24 1245 Resp 16 07/06/24 1245 SpO2 97 % 07/06/24 1245 Post Anesthesia Patient Status Patient Evaluation: bedside. Neurological Status: aware and responsive. Pulmonary Status: breathing comfortably on supplemental oxygen Airway Control: returned to baseline unsupported. Cardiovascular Status: stable. Pain Management: clinically adequate Postoperative Hydration: acceptable. Intraoperative Events: no significant anesthesia events Post Operative Nausea/Vomiting Status: no significant post operative nausea or vomiting Recommendation: continue current plan of care. Anesthesia Observations No Documentation SIGNATURE: Vel Jennings MD PATIENT NAME: Brianne Walls DATE: July 06, 2024 TIME: 1:32 PM CSN: [id number] [facility] ANES PRE-OPon 07-06-2024 ANES PRE-OP HNO ID: [id number] Author: VEL JENNINGS MD Service: Anesthesiology Author Type: Physician Type: Anesthesia Preprocedure Evaluation Filed: 07/06/2024 08:26 Note Text: ANESTHESIOLOGY DAY OF SURGERY NOTE : 1955 Procedure Information Date/Time: 07/06/24 0800 Procedure: INSERTION OF NEW OR REPLACEMENT OF PERMANENT PACEMAKER W/ TRANSVENOUS ELECTRODE(S) VENTRICULAR (Left) - New RV lead, gen change. Venogram 07/01 STJ ([place] patient) hANDp on 06/10 ROU Location: [place] [facility] [place] [facility] Surgeons: Bruna North MD Estimated body mass index is 22.89 kg/m? as calculated from the following: Height as of 07/01/24: 175.3 cm (5' 9). Weight as of 07/01/24: 70.3 kg (155 lb). Most recent hematocrit and potassium results: Hematocrit 41.9 07/06/2024 Potassium 4.2 07/01/2024 Relevant Problems CARDIO (+) DVT (deep venous thrombosis) (HCC) (+) Hypertension Other (+) Osteomyelitis (HCC) I - PHYSICAL EVALUATION AIRWAY Patient intubated: No. Tracheostomy tube not present Mallampati: II. TM distance: >3 FB. Neck ROM: full ROM without neurological symptoms. Mouth opening: adequate. Short neck: no. Thick neck: no Harding present: yes DENTAL Dental findings: poor dentition, missing tooth/teeth, chipped and broken tooth. II - ANESTHESIA PLAN ASA Score: 3 Anesthetic Plan: MAC NPO Status: adequate Beta Dane Monitoring Plan Monitoring plan: standard ASA. Post Procedure Analgesic Plan Postoperative analgesic plan: parenteral or oral opioids. Informed Consent Anesthetic risks, benefits, alternatives, personnel and consent discussed: yes. Patient / Responsible Libertarian agrees to proceed: yes Patient / Surrogate agrees to blood products: blood products not planned DNR status not reviewed with patient and/or family prior to surgery. Significant changes in the patient condition since the History and Physical, not otherwise documented in primary service progress note: no. Potential Anesthesia issues that may suggest increased risk of complications or contraindication to planned procedure: none. Vitals Value Taken Time BP 141/70 07/06/24 0742 Pulse 70 07/06/24 0742 Resp Temp SpO2 94 % 07/06/24 0742 No current facility-administered medications on file as of 07/06/2024. Outpatient Medications as of 07/06/2024 Medication Sig buPROPion SR (WELLBUTRIN SR) 150 mg 12 hr tablet Take 150 mg by mouth two times a day. spironolactone (ALDACTONE) 25 mg tablet Take 1 tablet by mouth every afternoon. metoprolol succinate ER (TOPROL XL) 50 mg 24 hr tablet Take 50 mg by mouth once daily. citalopram (CELEXA) 20 mg tablet Take 1 tablet by mouth every afternoon. atorvastatin (LIPITOR) 20 mg tablet Take 20 mg by mouth once daily. levothyroxine (SYNTHROID) 100 mcg tablet Take 112 mcg by mouth daily before breakfast. HYDROcodone-acetaminophen (NORCO) 5-325 mg per tablet Take 1 tablet by mouth four times a day as needed for pain. tiZANidine (ZANAFLEX) 4 mg tablet Take 1 tablet by mouth every 12 hours. furosemide (LASIX) 40 mg tablet Take 40 mg by mouth as needed. JARDIANCE 10 mg tablet Take 10 mg by mouth daily with breakfast. traZODone (DESYREL) 100 mg tablet Take 100 mg by mouth daily at bedtime. folic acid 1 mg tablet Take 1 mg by mouth once daily. ELIQUIS 5 mg tab(s) Take 5 mg by mouth two times a day. tamsulosin ER (FLOMAX) 0.4 mg cp24 Take 0.4 mg by mouth twice daily. gabapentin (NEURONTIN) 300 mg capsule Take 300 mg by mouth three times daily. (Patient not taking: Reported on 06/10/2024) potassium chloride (K-TAB) 10 mEq tablet Take 10 mEq by mouth twice daily. nadolol (CORGARD) 40 mg tablet Take 40 mg by mouth once daily. I have interviewed and examined the patient. I have reviewed the medical record and/or the pre-anesthesia evaluation, pertinent labs, and test results. This contains updated information obtained within 48 hours of Surgery/Procedure. SIGNATURE: Vel Jennings MD PATIENT NAME: Brianne Walls DATE: July 06, 2024 TIME: 8:25 AM CSN: [id number] [facility] Basic metabolic 2000 panelon 07-06-2024 Anion gap [Moles/Vol] 10 mmol/L Normal 8-15 [facility] Comment on above: Order Comment: Speci men Type: BLOOD SPECIMENOrdering Facility: [facility] Address: [address] [place] [address] Performed By: #### 2 4321-2 ####[facility] LABORATORYCLIA [id number] [place] [address] [place] Calcium [Mass/Vol] 9.6 mg/dL Normal 8.5-10.2 [facility] Comment on above: Order Comment: Speci men Type: BLOOD SPECIMENOrdering Facility: [facility] Address: [address] [place] [address] Performed By: #### 2 4321-2 ####[facility]ORATORYCLIA [id number] [place] [address] [place] Chloride [Moles/Vol] 101 mmol/L Normal 98-107 [facility] Comment on above: Order Comment: Speci men Type: BLOOD SPECIMENOrdering Facility: [facility] Address: [address] [place] [address] Performed By: #### 2 4321-2 ####[facility] LABORATORYCLIA [id number] [place] [address] [place] CO2 [Moles/Vol] 29 mmol/L Normal 22-30 [facility] Comment on above: Order Comment: Speci men Type: BLOOD SPECIMENOrdering Facility: [facility] Address: [address] [place] [address] Performed By: #### 2 1-2 ####[facility]ORATORYCLIA [id number] [address] [place] Creatinine [Mass/Vol] 0.95 mg/dL Normal 0.73-1.22 [facility] Comment on above: Order Comment: Neena marques Type: BLOOD SPECIMENOrdering Facility: [facility] Address: [address] [place] [address] Performed By: #### 2 4321-2 ####[facility]PITALIA [id number] [address] Creatinine and Glomerular filtration rate.predicted panel (S/P/Bld) 87 mL/min/1.73m??? Normal >=60 [facility] Comment on above: Order Comment: Neena marques Type: BLOOD SPECIMENOrdering Facility: [facility] Address: [address] [place] [address] Result Comment: Angie mated Glomerular Filtration Rate (eGFR) is calculated using the 2020 CKD-EPI creatinine equation. This equation utilizes serum creatinine, sex, and age as parameters. The creatinine assay has traceable calibration to isotope dilution-mass spectrometry. Refer to KDIGO guidelines for clinical interpretation. In patients with unstable renal function, e.g. those with acute kidney injury, the eGFR may not accurately reflect actual GFR. Performed By: #### 2 4321-2 ####[facility]PITALIA [id number] [address] STATES [place] [facility] Glucose [Mass/Vol] 97 mg/dL Normal 74-99 [facility] Comment on above: Order Comment: Neena marques Type: BLOOD SPECIMENOrdering Facility: [facility] Address: [address] [place] [address] Result Comment: The [place] [employer] (ADA) provides guidance for cutoff values for fasting glucose and random glucose. The ADA defines fasting as no caloric intake for at least 8 hours. Fasting plasma glucose results between 100 to 125 mg/dL indicate increased risk for diabetes (prediabetes). Fasting plasma glucose results greater than or equal to 126 mg/dL meet the criteria for diagnosis of diabetes. In the absence of unequivocal hyperglycemia, results should be confirmed by repeat testing. In a patient with classic symptoms of hyperglycemia or hyperglycemic crisis, random plasma glucose results greater than or equal to 200 mg/dL meet the criteria for diagnosis of diabetes. Reference: Standards of Medical Care in Diabetes 2016, [place] [employer]. Diabetes Care. 2016.39(Suppl 1). Performed By: #### 2 4321-2 ####[facility]ATORYCLIA [id number] [address] [place] [facility] Potassium [Moles/Vol] 4.4 mmol/L Normal 3.7-5.1 [facility] Comment on above: Order Comment: Speci men Type: BLOOD SPECIMENOrdering Facility: [facility] Address: [address] [place] [address] Performed By: #### 2 4321-2 ####[facility] LABORATORYCLIA [id number] [address] Sodium [Moles/Vol] 140 mmol/L Normal 136-144 [facility] Comment on above: Order Comment: Speci men Type: BLOOD SPECIMENOrdering Facility: [facility] Address: [address] [place] [address] Performed By: #### 2 4321-2 ####[facility] LABORATORYCLIA [id number] [address] STATES [facility] Urea nitrogen [Mass/Vol] 25 mg/dL High 9-24 [facility] Comment on above: Order Comment: Speci men Type: BLOOD SPECIMENOrdering Facility: [facility] Address: [address] [place] [address] Performed By: #### 2 4321-2 ####[facility]ORATORYCLIA [id number] [address] CBC panel Auto (Bld)on 07-06 Erythrocyte distribution width (RBC) [Ratio] 13.9 % Normal 11.5-15.0 [facility] Comment on above: Order Comment: Speci men Type: BLOOD SPECIMENOrdering Facility: [facility] Address: [address] [place] [address] Performed By: #### 5 8410-2 ####[facility]ORATORYCLIA [id number] [address] Hematocrit (Bld) [Volume fraction] 41.9 % Normal 39.0-51.0 [facility] Comment on above: Order Comment: Speci men Type: BLOOD SPECIMENOrdering Facility: [facility] Address: [address] [place] [address] Performed By: #### 5 8410-2 ####[facility]ORATORYCLIA [id number] [address] [place] Hemoglobin (Bld) [Mass/Vol] 14.3 g/dL Normal 13.0-17.0 [facility] Comment on above: Order Comment: Speci men Type: BLOOD SPECIMENOrdering Facility: [facility] Address: [address] [place] [address] Performed By: #### 5 8410-2 ####[facility]ATORYCLIA [id number] [address] [place] MCH (RBC) [Entitic mass] 31.5 pg Normal 26.0-34.0 [facility] Comment on above: Order Comment: Speci men Type: BLOOD SPECIMENOrdering Facility: [facility] Address: [address] [place] [address] Performed By: #### 5 8410-2 ####[facility]ATORYCLIA [id number] [address] [place] MCHC (RBC) [Mass/Vol] 34.1 g/dL Normal 30.5-36.0 [facility] Comment on above: Order Comment: Speci men Type: BLOOD SPECIMENOrdering Facility: [facility] Address: [address] [place] [address] Performed By: #### 5 8410-2 ####[facility]ORATORYCLIA [id number] [address] [place] MCV (RBC) [Entitic vol] 92.3 fL Normal 80.0-100.0 [facility] Comment on above: Order Comment: Speci men Type: BLOOD SPECIMENOrdering Facility: [facility] Address: [address] [place] [address] Performed By: #### 5 8410-2 ####[facility]ORATORYCLIA [id number] [address] Nucleated RBC (Bld) [#/Vol] 10*3/uL Normal <0.01 [facility] Comment on above: Order Comment: Speci men Type: BLOOD SPECIMENOrdering Facility: [facility] Address: [address] [place] [address] Performed By: #### 5 8410-2 ####[facility]ORATORYCLIA [id number] [address] [place] Platelet mean volume (Bld) [Entitic vol] 10.1 fL Normal 9.0-12.7 [facility] Comment on above: Order Comment: Speci men Type: BLOOD SPECIMENOrdering Facility: [facility] Address: [address] [place] [address] Performed By: #### 5 8410-2 ####[facility]ORATORYCLIA [id number] [address] Platelets (Bld) [#/Vol] 131 10*3/uL Low 150-400 [facility] Comment on above: Order Comment: Speci men Type: BLOOD SPECIMENOrdering Facility: [facility] Address: [address] [place] [address] Result Comment: No c lot detected. Performed By: #### 5 8410-2 ####[facility]ATORYCLIA [id number] [address] RBC (Bld) [#/Vol] 4.54 10*6/uL Normal 4.20-6.00 [facility] Comment on above: Order Comment: Speci men Type: BLOOD SPECIMENOrdering Facility: [facility] Address: [address] [place] [address] Performed By: #### 5 8410-2 ####[facility]ORATORYCLIA [id number] [address] [place] WBC (Bld) [#/Vol] 6.78 10*3/uL Normal 3.70-11.00 [facility] Comment on above: Order Comment: Speci men Type: BLOOD SPECIMENOrdering Facility: [facility] Address: [address] [place] [address] Performed By: #### 5 8410-2 ####[facility] LABORATORYCLIA [id number] [place] [address] [place] HISTORY PHYSICALon HISTORY PHYSICAL HNO ID: [id number] Author: BRUNA NORTH MD Service: Electrophysiology Author Type: Physician Type: H&P Filed: 07/06/2024 08:39 Note Text: UPDATED HISTORY AND PHYSICAL EXAMINATION SERVICE DATE: 07/06/2024 SERVICE TIME: 8:35 am PHYSICAL EXAM MUST BE COMPLETED ON ADMISSION The History and Physical (completed in the past 30 days) has been reviewed and the patient has been examined. The contents accurately reflect the patient's condition with the following additions or revisions since the HANDP was completed. Examination indicates no changes. 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 INFORMED CONSENT The risks, benefits and anticipated outcomes of the procedure, the risks and benefits of the alternatives to the procedure and the roles and tasks of the personnel to be involved were discussed with the patient. Consent for the procedure and agreement to proceed has been obtained. I verify that I personally obtained the consent. This HANDP can be found in the Electronic Medical Record dated 06/10/2024. SIGNATURE: Bruna North MD PATIENT NAME: Brianne Walls DATE: July 06, 2024 TIME: 8:38 AM Normal [facility] PT panel Coag (PPP)on 2024 INR Coag (PPP) [Relative time] 1.0 {INR} Normal 0.9-1.3 [facility] Comment on above: Order Comment: Neena marques Type: BLOOD SPECIMENOrdering Facility: [facility] Address: [address] [place], [place] [address] Result Comment: Yasemin min K Antagonist (VKA) Therapeutic Range: INR 2 to 3 (Target INR of 2.5) Note: For patients treated with VKA drugs, such as warfarin, the [place] [employer] 2012 Guideline recommends a therapeutic INR range of 2 to 3 (target INR of 2.5). This recommendation includes high-risk patients with antiphospholipid syndrome with previous arterial or venous thromboembolism, current-generation mechanical or bioprosthetic aortic heart valve replacement. Note: Patients with mechanical aortic valve replacement and additional risk factors for thromboembolic events (atrial fibrillation, previous thromboembolism, LV dysfunction, hypercoagulable conditions) or an older generation mechanical AVR (i.e., ball in-Cage) or any mechanical MVR should have a INR therapeutic range of 2.5 to 3.5 (target INR of 3). Netott GH, et al. Chest 2012, 141:7S-47S Donna RA et al. [facility] 2017, 70: 252-289 Performed By: #### 3 4528-0 ####[facility] LABORATORYCLIA [id number] [address] [place] PT Coag (PPP) [Time] 10.5 s Normal 9.7-13.0 [facility] Comment on above: Order Comment: Neena marques Type: BLOOD SPECIMENOrdering Facility: [facility] Address: [address] [id number] Performed By: #### 3 4528-0 ####[facility]ORATORYCLIA [id number] [address] STATES OF [facility] Pathology biopsy report Norbert (Tiss)on 07-06-2024 CASE REPORT Normal [facility] Comment on above: Order Comment: Neena marques Type: DEVICE SPECIMENOrdering Facility: [facility] Address: [address] [place] [address] Result Comment: Surg [facility] Pathology Report Case: [id number] Authorizing Provider: Bruna North MD Collected: 07/06/2024 09:38 AM Ordering Location: [facility] Received: 07/06/2024 02:21 PM Pathologist: Edelmira Lopez MD Specimen: Hardware/Device/Foreign Body Performed By: #### 6 6121-5 ####[facility]ORATORYCLIA [id number] [address] CLINICAL HISTORY PACEMAKER Normal [facility] Comment on above: Order Comment: Speci men Type: DEVICE SPECIMENOrdering Facility: [facility] Address: [address] [place] [address] Performed By: #### 6 6121-5 ####[facility]ORATORYCLIA [id number] [address] FINAL DIAGNOSIS Normal [facility] Comment on above: Order Comment: Speci men Type: DEVICE SPECIMENOrdering Facility: [facility] Address: [address] [place] [address] Result Comment: A. C hest pocket, device, removal: - Pulse generator (gross examination only). Gross examination performed at [facility] [facility], [address] [place] [address] at 1612 EST Performed By: #### 6 6121-5 ####[facility] LABORATORYCLIA [id number] [address] FINAL PERFORMING LAB Normal [facility] Comment on above: Order Comment: Speci men Type: DEVICE SPECIMENOrdering Facility: [facility] Address: [address] [place] [address] Result Comment: Diag nostic interpretation performed at: [facility], [address] [place] [address] CLIA# [id number] Washtub Worker Helper: Tan Burrell MD Performed By: #### 6 6121-5 ####[facility] LABORATORYCLIA [id number] [address] STATES OF [facility] GROSS DESCRIPTION Normal [facility] Comment on above: Order Comment: Speci men Type: DEVICE SPECIMENOrdering Facility: [facility] Address: [address] [place] [address] Result Comment: Ml Tarango ardware/Device/Foreign Body Received fresh labeled pacemaker is a generator device bearing the inscription [facility] [employer] PM 2240 DDDR serial #[id number]. The specimen is for gross examination only. Gross examination performed at [facility], [address] [place] [address] KVB July 06, 2024 3:20 PM Performed By: #### 6 6121-5 ####[facility] LABORATORYCLIA [id number] [address] STATES OF [place] Basic metabolic 2000 panelon 07-01-2024 Anion gap [Moles/Vol] 11 mmol/L Normal 8-15 [facility] Comment on above: Order Comment: Speci men Type: BLOOD SPECIMENOrdering Facility: [facility] Address: [address] [place] [address] Performed By: #### 2 4321-2 ####[facility] LABORATORYCLIA [id number] [place] [address] [place] Calcium [Mass/Vol] 9.7 mg/dL Normal 8.5-10.2 [facility] Comment on above: Order Comment: Speci men Type: BLOOD SPECIMENOrdering Facility: [facility] Address: [address] [place] [address] Performed By: #### 2 4321-2 ####[facility] LABORATORYCLIA [id number] [place] [address] [place] Chloride [Moles/Vol] 101 mmol/L Normal 98-107 [facility] Comment on above: Order Comment: Speci men Type: BLOOD SPECIMENOrdering Facility: [facility] Address: [address] [place] [address] Performed By: #### 2 4321-2 ####[facility] LABORATORYCLIA [id number] [address] OF [place] CO2 [Moles/Vol] 26 mmol/L Normal 22-30 [facility] Comment on above: Order Comment: Speci men Type: BLOOD SPECIMENOrdering Facility: [facility] Address: [address] [place] [address] Performed By: #### 2 4321-2 ####[facility] LABORATORYCLIA [id number] [address] STATES [place] Creatinine [Mass/Vol] 0.88 mg/dL Normal 0.73-1.22 [facility] Comment on above: Order Comment: Speci men Type: BLOOD SPECIMENOrdering Facility: [facility] Address: [address] [place] [address] Performed By: #### 2 4321-2 ####[facility] LABORATORYCLIA [id number] [address] Creatinine and Glomerular filtration rate.predicted panel (S/P/Bld) 93 mL/min/1.73m??? Normal >=60 [facility] Comment on above: Order Comment: Speci men Type: BLOOD SPECIMENOrdering Facility: [facility] Address: [address] [place] [address] Result Comment: Angie mated Glomerular Filtration Rate (eGFR) is calculated using the 2020 CKD-EPI creatinine equation. This equation utilizes serum creatinine, sex, and age as parameters. The creatinine assay has traceable calibration to isotope dilution-mass spectrometry. Refer to KDIGO guidelines for clinical interpretation. In patients with unstable renal function, e.g. those with acute kidney injury, the eGFR may not accurately reflect actual GFR. Performed By: #### 2 4321-2 ####[facility] LABORATORYCLIA [id number] [address] STATES OF [place] Glucose [Mass/Vol] 101 mg/dL High 74-99 [facility] Comment on above: Order Comment: Jannettei shelli Type: BLOOD SPECIMENOrdering Facility: [facility] Address: [address] [place] [address] Result Comment: The [place] Diabetes [employer] (ADA) provides guidance for cutoff values for fasting glucose and random glucose. The ADA defines fasting as no caloric intake for at least 8 hours. Fasting plasma glucose results between 100 to 125 mg/dL indicate increased risk for diabetes (prediabetes). Fasting plasma glucose results greater than or equal to 126 mg/dL meet the criteria for diagnosis of diabetes. In the absence of unequivocal hyperglycemia, results should be confirmed by repeat testing. In a patient with classic symptoms of hyperglycemia or hyperglycemic crisis, random plasma glucose results greater than or equal to 200 mg/dL meet the criteria for diagnosis of diabetes. Reference: Standards of Medical Care in Diabetes 2016, [place] [employer]. Diabetes Care. 2016.39(Suppl 1). Performed By: #### 2 4321-2 ####[facility] LABORATORYCLIA [id number] [address] STATES [place] Potassium [Moles/Vol] 4.2 mmol/L Normal 3.7-5.1 [facility] Comment on above: Order Comment: Speci men Type: BLOOD SPECIMENOrdering Facility: [facility] Address: [address] [place] [address] Performed By: #### 2 4321-2 ####[facility] LABORATORYCLIA [id number] [address] STATES [place] Sodium [Moles/Vol] 138 mmol/L Normal 136-144 [facility] Comment on above: Order Comment: Speci men Type: BLOOD SPECIMENOrdering Facility: [facility] Address: [address] [place] [address] Performed By: #### 2 4321-2 ####[facility] LABORATORYCLIA [id number] [address] STATES OF [facility] Urea nitrogen [Mass/Vol] 23 mg/dL Normal 9-24 [facility] Comment on above: Order Comment: Speci men Type: BLOOD SPECIMENOrdering Facility: [facility] Address: [facility] [place] [address] Performed By: #### 2 4321-2 ####[facility] LABORATORYCLIA [id number] [address] STATES [place] CBC panel Auto (Bld)on 07-01 Erythrocyte distribution width (RBC) [Ratio] 13.7 % Normal 11.5-15.0 [facility] Comment on above: Order Comment: Speci men Type: BLOOD SPECIMENOrdering Facility: [facility] Address: [address] [place] [address] Performed By: #### 5 8410-2 ####[facility] LABORATORYCLIA [id number] [address] OF [facility] Hematocrit (Bld) [Volume fraction] 42.2 % Normal 39.0-51.0 [facility] Comment on above: Order Comment: Speci men Type: BLOOD SPECIMENOrdering Facility: [facility] Address: [address] [place] [address] Performed By: #### 5 8410-2 ####[facility] LABORATORYCLIA [id number] [address] STATES OF [facility] Hemoglobin (Bld) [Mass/Vol] 14.6 g/dL Normal 13.0-17.0 [facility] Comment on above: Order Comment: Speci men Type: BLOOD SPECIMENOrdering Facility: [facility] Address: [address] [place] [address] Performed By: #### 5 8410-2 ####[facility] LABORATORYCLIA [id number] [address] MCH (RBC) [Entitic mass] 31.6 pg Normal 26.0-34.0 [facility] Comment on above: Order Comment: Speci men Type: BLOOD SPECIMENOrdering Facility: [facility] Address: [address] [place] [address] Performed By: #### 5 8410-2 ####[facility] LABORATORYCLIA [id number] [address] STATES [place] MCHC (RBC) [Mass/Vol] 34.6 g/dL Normal 30.5-36.0 [facility] Comment on above: Order Comment: Speci men Type: BLOOD SPECIMENOrdering Facility: [facility] Address: [address] [place] [address] Performed By: #### 5 8410-2 ####[facility] LABORATORYCLIA [id number] [address] [place] MCV (RBC) [Entitic vol] 91.3 fL Normal 80.0-100.0 [facility] Comment on above: Order Comment: Speci men Type: BLOOD SPECIMENOrdering Facility: [facility] Address: [address] [place] [address] Performed By: #### 5 8410-2 ####[facility] LABORATORYCLIA [id number] [address] OF [place] Nucleated RBC (Bld) [#/Vol] 10*3/uL Normal <0.01 [facility] Comment on above: Order Comment: Speci men Type: BLOOD SPECIMENOrdering Facility: [facility] Address: [address] [place] [address] Performed By: #### 5 8410-2 ####[facility]ORATORYCLIA [id number] [address] STATES [facility] Platelet mean volume (Bld) [Entitic vol] 10.4 fL Normal 9.0-12.7 [facility] Comment on above: Order Comment: Speci men Type: BLOOD SPECIMENOrdering Facility: [facility] Address: [address] [place] [address] Performed By: #### 5 8410-2 ####[facility] LABORATORYCLIA [id number] [address] [place] Platelets (Bld) [#/Vol] 128 10*3/uL Low 150-400 [facility] Comment on above: Order Comment: Speci men Type: BLOOD SPECIMENOrdering Facility: [facility] Address: [address] [place] [address] Performed By: #### 5 8410-2 ####[facility] LABORATORYCLIA [id number] [address] OF [place] RBC (Bld) [#/Vol] 4.62 10*6/uL Normal 4.20-6.00 [facility] Comment on above: Order Comment: Speci men Type: BLOOD SPECIMENOrdering Facility: [facility] Address: [address] [place] [address] Performed By: #### 5 8410-2 ####[facility] LABORATORYCLIA [id number] [address] WBC (Bld) [#/Vol] 6.59 10*3/uL Normal 3.70-11.00 [facility] Comment on above: Order Comment: Speci men Type: BLOOD SPECIMENOrdering Facility: [facility] Address: [address] [place] [address] Performed By: #### 5 8410-2 ####[facility] LABORATORYCLIA [id number] [place] [id number] [facility] CNPNon 06-27-2024 CNPN Telephone (AGCARDPOB ) -- BRIANNE WALLS ([id number]) 1955 M Date Time Provider Department 06/27/24 BRUNA [facility]TH AGCARDPOB During your visit today, we recorded the following information about you: Mango Arita 06/27/2024 3:35 PM Signed Patient is scheduled for a Vengogram on 07/[address] North. The hospital will call the day before between 2-5pm with your arrival time. You should not eat or drink after midnight the day before the procedure. You should continue to take medications as prescribed the morning of the procedure with just a sip of water unless otherwise instructed. Patient is also scheduled for an RV lead revision +/- extraction and replacement and generator exchange on 07/[address] North. The hospital will call the day before between 2-5pm with your arrival time. You should not eat or drink after midnight the day before the procedure. You will need a subway train driver when released from the hospital and you will stay overnight for observation. You should continue to take medications as prescribed the morning of the procedure with just a sip of water but hold Eliquis and Jardiance for 3 days prior to the procedure. Left message for Brianne Walls to call back and confirm date AND instructions Mango Arita Office use: Kathy Harvey RN 06/28/2024 10:51 AM Addendum Brianne Walls returned call and is agreeable to both procedure dates. Relayed both sets of instructions to him and he verbalized understanding. Added procedures to board. Kathy Harvey RN Allergies As of Date: 06/27/2024 (No Known Allergies) Date Reviewed: 06/10/2024 Reviewed by: Josue Lozano MA - Fully Assessed Reason for Visit: Preparations For Procedures [899] Prescriptions as of 06/28/2024 - buPROPion SR (WELLBUTRIN SR) 150 mg 12 hr tablet Take 150 mg by mouth two times a day. - HYDROcodone-acetaminophen (NORCO) 5-325 mg per tablet Take 1 tablet by mouth four times a day as needed for pain. - tiZANidine (ZANAFLEX) 4 mg tablet Take 1 tablet by mouth every 12 hours. - furosemide (LASIX) 40 mg tablet Take 40 mg by mouth as needed. - JARDIANCE 10 mg tablet Take 10 mg by mouth daily with breakfast. - spironolactone (ALDACTONE) 25 mg tablet Take 1 tablet by mouth every afternoon. - metoprolol succinate ER (TOPROL XL) 50 mg 24 hr tablet Take 50 mg by mouth once daily. - citalopram (CELEXA) 20 mg tablet Take 1 tablet by mouth every afternoon. - traZODone (DESYREL) 100 mg tablet Take 100 mg by mouth daily at bedtime. - folic acid 1 mg tablet Take 1 mg by mouth once daily. - ELIQUIS 5 mg tab(s) Take 5 mg by mouth two times a day. - tamsulosin ER (FLOMAX) 0.4 mg cp24 Take 0.4 mg by mouth twice daily. - gabapentin (NEURONTIN) 300 mg capsule Take 300 mg by mouth three times daily. - atorvastatin (LIPITOR) 20 mg tablet Take 20 mg by mouth once daily. - potassium chloride (K-TAB) 10 mEq tablet Take 10 mEq by mouth twice daily. - nadolol (CORGARD) 40 mg tablet Take 40 mg by mouth once daily. - levothyroxine (SYNTHROID) 100 mcg tablet Take 112 mcg by mouth daily before breakfast. Meds Comments as of 01/09/2011: pt. does not have list of meds with him and is in too much pain to review medications with me - mentioned taking oxycodone 40mg TID, NSAIDs, and vitamins. 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] 01/08/2011 SUMMARY [V999.95] 01/08/2011 Anemia [D64.9] 01/08/2011 01/15/2011 Osteomyelitis (HCC) [M86.9] 01/08/2011 Pre-op testing [Z01.818] 01/10/2011 01/13/2011 Preop testing [Z01.818] 01/12/2011 01/13/2011 Mitral regurgitation [I34.0] 01/13/2011 01/15/2011 Hypertension [I10] 01/13/2011 Bradycardia [R00.1] 01/13/2011 Stress hyperglycemia [R73.9] 01/13/2011 01/15/2011 Acute on Chronic Pain [G89.29] 01/13/2011 Acute blood loss anemia [D62] 01/18/2011 DVT (deep venous thrombosis) ([facility]) [I82.409] 01/23/2011 Encounter Status:Closed by MANGO ARITA on 06/27/24 Normal [facility] L3410.9998on 06-27-2024 [facility] Misc. COMMENT Normal . [facility] Comment on above: Order Comment: [id number] Result Comment: Test Ordered: [id number] 6+Oxycodone-Bund Amphetamines, Urine Negative ng/mL UI Reference Range: Zmgrlf=9871 Amphetamine test includes Amphetamine and Methamphetamine. Barbiturate Negative ng/mL UI Reference Range: Zyyvlz=721 Benzodiazepines Negative ng/mL UI Reference Range: Ymbxhr=222 Cannabinoids Negative ng/mL UI Reference Range: Cutoff=20 Cocaine (Metabolite) Negative ng/mL UI Reference Range: Ckstsa=533 Opiates Note: ng/mL UI See Final Results Reference Range: Dijdzr=458 Opiate test includes Codeine, Morphine, Hydromorphone, Hydrocodone. Opiates Positive [A ] ng/mL UI Reference Range: Knnyxd=596 Opiate test includes Codeine, Morphine, Hydromorphone, Hydrocodone. Confirmation performed by Mass Spectrometry Codeine Negative UI Reference Range: Mtwthe=769 Morphine Negative UI Reference Range: Rnexkb=477 Hydromorphone Negative UI Reference Range: Ygmyke=765 Hydrocodone Positive [A ] UI Reference Range: . Hydrocodone Conf, MS, UR 892 ng/mL UI Reference Range: Wjpddn=838 Oxycodone/Oxymorphone, Urine Negative ng/mL UI Reference Range: Psvdri=901 Test includes Oxycodone and Oxymorphone Effective August 15, 2024, this test will be discontinued. Please contact your [facility] financial service representative for suggested replacement test options. Performed at: [address] [id number] Retail Training Manager: Morena Clark PhD, Phone: [phone] Performed at: [address] [id number] Retail Training Manager: Kel Young PhD, Phone: [phone] Performed By: #### L 3410.9998, L505.5000 ####[facility] [address] [facility] [id number] Urine Drug Screen (VISTA)on 06-23-2024 AMPHETAMINES Negative Normal <1000 ng/mL [facility] Comment on above: Order Comment: UNK Performed By: #### L 3410.9998, L505.5000 ####[facility] [address] [facility] [id number] BARBITIURATES Negative Normal < 200 ng/mL [facility] Comment on above: Order Comment: UNK Performed By: #### L 3410.9998, L505.5000 ####[facility] [address] [facility] [id number] BENZODIAZIPINE Negative Normal < 200 ng/mL [facility] Comment on above: Order Comment: UNK Performed By: #### L 3410.9998, L505.5000 ####[facility] [address] [place], [address] COCAINE Negative Normal < 300 ng/mL [facility] Comment on above: Order Comment: UNK Performed By: #### L 3410.9998, L505.5000 ####[facility] [address] [place], [address] ECSTACY Positive Abnormal < 500 ng/mL [facility] Comment on above: Order Comment: UNK Performed By: #### L 3410.9998, L505.5000 ####[facility] [address] [place], [address] METHADONE Negative Normal < 300 ng/mL [facility] Comment on above: Order Comment: UNK Performed By: #### L 3410.9998, L505.5000 ####[facility] [address] [place], [address] OPIATES Positive Abnormal < 300 ng/mL [facility] Comment on above: Order Comment: UNK Performed By: #### L 3410.9998, L505.5000 ####[facility] [address] [place], [address] PCP Negative Normal < 25 ng/mL [facility] Comment on above: Order Comment: UNK Performed By: #### L 3410.9998, L505.5000 ####[facility] [address] [place], [address] THC Negative Normal < 50 ng/mL [facility] Comment on above: Order Comment: UNK Performed By: #### L 3410.9998, L505.5000 ####[facility] [address] [place], [address] VISTA UDS PH 5 Normal [facility] Comment on above: Order Comment: UNK Performed By: #### L 3410.9998, L505.5000 ####[facility] [address] [place], [address] CNOVon 06-10-2024 CNOV Office Visit (AGCARD POB) -- BRIANNE WALLS ([id number]) 1955 M Date Time Provider Department 06/10/24 11:20 AM [facility] AGCARDPOB During your visit today, we recorded the following information about you: Pulse Blood pressure Weight 35/minute 136/82 70.5 kg Josue Lozano MA 06/10/2024 12:30 PM Signed Patient denies cardiac complaints or symptoms. Bruna North MD 06/10/2024 12:30 PM Signed PRIMARY CARE PHYSICIAN: Fracisco Carvalho MD [address] [place] [address] REFERRING PHYSICIAN: Matt Royal ([facility]) [address] [facility] [address] Patient Care Team: Fracisco Carvalho Chi as PCP - General (Gerontology) CHIEF COMPLAINT: RV lead noise HISTORY OF PRESENT ILLNESS: Mr. 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 Patient also has a history of infection endocarditis and bioprosthetic valve endocarditis with repeat open heart surgery with mitral valve apparatus with a 29 mm Medtronic tissue valve and a 36 mm tricuspid annuloplasty ring in July 2014. He also had a finding of severe MR on a MING in 05/2023, originally from mid posterior with an eccentrically directed jet. On 07/2023 he underwent perivalvular leak plug of his bioprosthetic mitral valve. Noted to have RV lead noise on his recent remote check and in person device check confirmed this. Noise detected as VT and pacing, leading to oversensing and failure to pace. His WILLIAM is also within 5 months and he presents here as a referral to discuss possible RV lead revision/extraction and generator exchange. We discussed the risks of laser lead extraction including 2% risk of major morbidity including risk of mortality and need for surgical backup given the high risk nature of laser lead extraction. I have confirmed and edited as necessary, the PFSH and ROS obtained by others. PAST MEDICAL HISTORY Diagnosis Date Alcohol withdrawal ([facility]) Anxiety state Cardiac pacemaker in situ Closed head injury Deep vein thrombosis (DVT) ([facility]) Depression Essential hypertension Falls Fracture H/O bacterial endocarditis Hypertension 01/13/2011 Hypothyroidism senior living (current) use of anticoagulants Nonrheumatic mitral valve regurgitation PAF (paroxysmal atrial fibrillation) ([facility]) Perivalvular leak of prosthetic heart valve Pure hypercholesterolemia Sleep apnea SSS (sick sinus syndrome) ([facility]) Syncope Tobacco use disorder Umbilical hernia without mention of obstruction or gangrene PAST SURGICAL HISTORY Procedure Laterality Date APPENDECTOMY COLONOSCOPY FLX DX W/COLLJ SPEC WHEN PFRMD 05/18/2015 Colonoscopy PAST SURGICAL HISTORY OF tricuspid valve repair PAST SURGICAL HISTORY OF left ankle PAST SURGICAL HISTORY OF right heel PAST SURGICAL HISTORY OF 07/27/2014 mitral valve replacement with bioprosthetic valve RPR 1ST INGUN HRNA AGE 5 YRS/> REDUCIBLE 05/18/1975 Hernia repair, inguinal, right RPR UMBILICAL HRNA 5 YRS/> REDUCIBLE 04/20/2009 SOCIAL HISTORY Social History Tobacco Use Smoking status: Former Current packs/day: 0.00 Average packs/day: 1.5 packs/day for 25.0 years (37.5 ttl pk-yrs) Types: Cigarettes Start date: 01/08/1986 Quit date: 01/08/2011 Years since quittin.4 Smokeless tobacco: Never Substance Use Topics Alcohol use: Not Currently Comment: Seldomly Drug use: Not Currently Comment: crack,cocaine,heroin FAMILY HISTORY Problem Relation Age of Onset Coronary Artery Disease Father Heart Father ALLERGIES: ALLERGIES No Known Allergies MEDICATIONS: buPROPion SR (WELLBUTRIN SR) 150 mg 12 hr tablet Take 150 mg by mouth two times a day. HYDROcodone-acetaminophen (NORCO) 5-325 mg per tablet Take 1 tablet by mouth four times a day as needed for pain. tiZANidine (ZANAFLEX) 4 mg tablet Take 1 tablet by mouth every 12 hours. furosemide (LASIX) 40 mg tablet Take 40 mg by mouth as needed. JARDIANCE 10 mg tablet Take 10 mg by mouth daily with breakfast. spironolactone (ALDACTONE) 25 mg tablet Take 1 tablet by mouth every afternoon. metoprolol succinate ER (TOPROL XL) 50 mg 24 hr tablet Take 50 mg by mouth once daily. citalopram (CELEXA) 20 mg tablet Take 1 tablet by mouth every afternoon. traZODone (DESYREL) 100 mg tablet Take 100 mg by mouth daily at bedtime. folic acid 1 mg tablet Take 1 mg by mouth once daily. ELIQUIS 5 mg tab(s) Take 5 mg by mouth two times a day. tamsulosin ER (FLOMAX) 0.4 mg cp24 Take 0.4 mg by mouth twi (more content not included)... Normal [facility] Fior 05-25-2024 [facility] [facility] Telephone (AGCARDPOB ) -- BRIANNE WALLS ([id number]) 1955 M Date Time Provider Department 05/25/24 BRUNA NORTH AGCARDPOB During your visit today, we recorded the following information about you: Miladys Silva RN 05/25/2024 11:36 AM Signed Brianne called back, he confirmed his date as 1955. I also updated his phone number. Pt states that he has a integrity manager at [facility] that he would like to talk to about an appt. Pt states that he will keep appt with Dr. North for now, but he may cancel. Miladys Silva RN Allergies As of Date: 05/25/2024 (No Known Allergies) Date Reviewed: 09/26/2015 Reviewed by: Brandin Alvarado - Fully Assessed Prescriptions as of 05/25/2024 - colestipol (COLESTID) 1 gram tablet TAKE 4 TABLETS BY MOUTH TWICE A DAY - tamsulosin ER (FLOMAX) 0.4 mg cp24 Take 0.4 mg by mouth twice daily. - gabapentin (NEURONTIN) 300 mg capsule Take 300 mg by mouth three times daily. - atorvastatin (LIPITOR) 20 mg tablet Take 20 mg by mouth once daily. - diphenoxylate-atropine (LOMOTIL) 2.5-0.025 mg per tablet Take 1 tablet by mouth four times daily as needed. - potassium chloride (K-TAB) 10 mEq tablet Take 10 mEq by mouth twice daily. - warfarin (COUMADIN) 3 mg tablet Take 3 mg by mouth daily as directed. 1 tablet 1/2 tablet other days - nadolol (CORGARD) 40 mg tablet Take 40 mg by mouth once daily. - levothyroxine (SYNTHROID) 100 mcg tablet Take 100 mcg by mouth daily before breakfast. - celecoxib (CELEBREX) 200 mg capsule Take 200 mg by mouth twice daily. - varenicline (CHANTIX) 1 mg tablet Take 1 mg by mouth twice daily. - aspirin 81 mg ORAL chewable tablet Take 1 tablet by mouth once daily. Meds Comments as of 01/09/2011: pt. does not have list of meds with him and is in too much pain to review medications with me - mentioned taking oxycodone 40mg TID, NSAIDs, and vitamins. 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] 01/08/2011 SUMMARY [V999.95] 01/08/2011 Anemia [D64.9] 01/08/2011 01/15/2011 Osteomyelitis (HCC) [M86.9] 01/08/2011 Pre-op testing [Z01.818] 01/10/2011 01/13/2011 Preop testing [Z01.818] 01/12/2011 01/13/2011 Mitral regurgitation [I34.0] 01/13/2011 01/15/2011 Hypertension [I10] 01/13/2011 Bradycardia [R00.1] 01/13/2011 Stress hyperglycemia [R73.9] 01/13/2011 01/15/2011 Acute on Chronic Pain [G89.29] 01/13/2011 Acute blood loss anemia [D62] 01/18/2011 DVT (deep venous thrombosis) ([facility]) [I82.409] 01/23/2011 Encounter Status:Closed by PANKAJ DURON on 05/25/24 Normal [facility] Pacemaker Checkon 05-24-2024 Pacemaker Check [facility] [address] [place] [address] Pacemaker Check Date of Service: 05/24/24 1407 MR#: [id number] Acct: [id number] Name: BRIANNE WALLS Rep #: [id number] : 1955 From: Estefania Sandhu Age/Sex: 68/M Location: [facility] [place] Status: Signed Billing Codes PM Device Codes: 20531 PM Dev Prog Eval, Dual Assessment and Plan Assessment and Plan (1) Pacemaker lead fracture: Status: Acute (2) Sick sinus syndrome: Status: Acute (3) Paroxysmal atrial fibrillation: Status: Acute (4) History of tricuspid valve repair: Status: Chronic Comment: 36mm Tricuspid annuloplasty ring 07/27/14 (5) History of bacterial endocarditis: Status: Resolved Comment: twice; most recently 06/2014 s/p bioprosthetic MVR and tricuspid repair emboli to toes and dry gangrene (6) Cardiac pacemaker in situ: Status: Chronic Orders: Referrals Electrophysiology I49.5 - Sick sinus syndrome, T82.110A - Breakdown (mechanical) of cardiac electrode, initial encounter, Z86.79 - Personal history of other diseases of the circulatory system, Z95.0 - Presence of cardiac pacemaker, Z95.3 - Presence of xenogenic heart valve, Z98.890 - Other specified postprocedural states 05/24/24 1410 Date Estefania Sandhu Cosigner Signature: Date (if applicable) CC: Normal [facility] 36on 05-20-2024 36 Pt has 1 yrs worth a t CVS sent in February 2024. Normal [facility] Echo Complete W/ Contraston 05-20-2024 Echo Complete W/ Contrast [facility] [address] [place] [address] Echo Complete W/ Contrast 05/20/24 0804 MR#: [id number] Acct: [id number] Name: BRIANNE WALLS Rep #: [id number] : 1955 68 From: Matt Royal MD Attending Dr: Tacos Gibson NP-C Status: REG CLI Ordering Dr: Tacos Gibson NP [facility] PATROL-C Date: 05/20/24 Location: CVS Sex: M C Admitted: Reason For Study: Valve Repair Procedure This was a 2D Doppler, Color Flow transthoracic echocardiogram. Contrast injection was performed. Exam performed in department. Left Ventricle Normal LV size. Mild concentric left ventricular hypertrophy. The left ventricular ejection fraction is 55 %. No regional wall motion abnormalities noted. Right Ventricle Normal RV size. ICD or pacer leads identified within the right ventricle. Normal systolic function. Mitral Valve Mean transmitral valve gradient 4 mmHg. Bioprosthetic mitral valve. Tricuspid Valve Normal tricuspid valve. Mild (1+) tricuspid valve insufficiency. Pulmonary artery systolic pressure is 30 mmHg. An annuloplasty ring is noted in the tricuspid position. Aortic Valve Trisinus/trileaflet aortic valve. Pulmonic Valve Normal pulmonic valve. Great Vessels Normal aortic root. The pulmonary artery is normal size. Inferior vena cava collapse with sniff. Pericardium/Pleural No pericardial effusion. MMode/2D Measurements Calculations LVIDd: 4.5 cm IVSd: 1.3 cm Ao root diam: 3.7 cm LVIDs: 2.9 cm LVPWd: 1.2 cm RVDd: 4.3 cm FS: 34.7 % ___ LAV(MOD-bp): 41.0 ml LA A4 area: 16.2 cm2 LA dimension(2D): 4.7 cm LAV(MOD-bp) Indexed: 22.0 ml/m2 LAV(MOD-sp2): 40.3 ml LAV(MOD-sp4): 41.4 ml ___ RA A4 area: 14.5 cm2 Time Measurements MV dec time: 0.28 sec Doppler Measurements Calculations MV E max kenya: 143.7 cm/sec MV V2 max: 169.4 cm/sec MV P1/2t max kenya: 170.4 cm/sec MV A max kenya: 100.9 cm/sec MV max P.5 mmHg MV P1/2t: 98.4 msec MV E/A: 1.4 MV V2 mean: 90.8 cm/sec MV dec slope: 507.2 cm/sec2 MV mean P.0 mmHg MV V2 VTI: 44.7 cm MVA(P1/2t): 2.2 cm2 ___ Ao V2 max: 119.4 cm/sec LV V1 max: 74.9 cm/sec PA V2 max: 85.7 cm/sec Ao max P.7 mmHg LV V1 max P.2 mmHg Ao V2 mean: 76.5 cm/sec LV V1 mean P.2 mmHg Ao mean P.8 mmHg LV V1 mean: 50.4 cm/sec Ao V2 VTI: 23.4 cm LV V1 VTI: 15.1 cm AV (velocity ratio): 0.65 ___ TR max kenya: 257.4 cm/sec TR max P.5 mmHg ECHO/Echo Complete W/ Contrast Interpretation Summary Normal LV size. The left ventricular ejection fraction is 55 %. Bioprosthetic mitral valve. Mild concentric left ventricular hypertrophy. Pulmonary artery systolic pressure is 30 mmHg. Compared to the previous echocardiogram the gradients across the prosthetic mitral valve is much improved and the tricuspid regurgitation and pulmonary pressures are also significantly improved. Ordering Physician: Tacos Gibson Referring Physician: Tacos Gibson Performed By: Mauri Mendoza RCS 05/20/24 1139 Date Matt Royal MD CC: [facility] PATROL-C Tacos Gibson; Dr. Fracisco Carvalho MD Date Dictated: 05/20/24 0804 Date Transcribed: 05/20/24 113 Shoe Handler: Signed [facility] 36on 05-19-2024 36 YANE KV 02/23/24 NOV K V 02/22/25, Labs 01/07/24 Rx pended. [facility] 36on 05-05-2024 36 YANE KV 02/23/24 NOV KV 02/22/25 Labs 01/07/24 Rx pending Normal [facility] Cardiology Visit Reporton Cardiology Visit Report [facility] [address] [place] [address] OFFICE VISIT Date of Service: 05/04/24 MR#: [id number] Acct: [id number] Name: BRIANNE WALLS Rep #: [id number] : 1955 Provider: DIPAK menendez Age/Sex: 68/M Location: [facility] Status: Signed HPI HPI History of Present Illness Details: BRIANNE WALLS, is a 68 M who presents to the office today for a cardiovascular follow-up visit. 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 Patient underwent a MING on 05/29/[address] Nicholas which demonstrated severe (4+) paravalvular mitral valve regurgitation originating from mid posterior with an eccentrically directed jet. On 07/29/2023, he underwent perivalvular leak plug of his bioprosthetic mitral valve on 07/30/2023. Mitral regurgitation was reduced to 1+. He denies chest, arm, jaw, or neck discomfort. He denies palpitations. He denies bilateral lower extremity edema. He denies claudication. He denies shortness of breath with activity, shortness of breath at rest, orthopnea, or PND. He denies chronic cough. He denies significant, sudden weight gain. He denies lightheadedness, dizziness, near-syncope, or syncope. He denies blood in urine, blood in stool, or epistaxis. He denies fever with chills. He denies myalgia. He denies fatigue. His exercise level has remained stable. Intake Vital Signs 11/11/23 09:05 01/26/24 11:10 05/04/24 09:22 Height 5 ft 11 in 5 ft 9 in 5 ft 9 in Weight: 158 lb BMI 23.3 BP 110/64 Blood Pressure Location Lt brachial Position Sitting Respiration 16 Pulse 70 Pulse Source NIBP Intake Visit Reasons: 6 M FU Cyber Security Required: No Is patient in pain?: No Allergies No Known Allergies Allergy (Verified 05/04/24 09:24) Medications ???Medication ???Instructions ???Recorded ???Confirmed ???Type bupropion HCl (smoking deter) 150 150 mg PO BID SMOKING 09/09/17 05/04/24 History mg tablet,12 hr sustained-release(smoking deterrent) tamsulosin 0.4 mg capsule 0.4 mg PO BID urinary tract 09/08/18 05/04/24 History hydrocodone-acetaminophen 5-325mg 1 tab PO 4X/DAY PAIN 06/05/21 05/04/24 History 5mg-325mg doxepin 150 mg capsule 150 mg PO DAILY depression 10/01/21 05/04/24 History cholecalciferol (vitamin D3) 25 25 mcg PO DAILY 01/31/22 05/04/24 History mcg (1,000 unit) tablet tizanidine 4 mg tablet 4 mg PO QHS muscle spasm 01/31/22 05/04/24 History atorvastatin 20 mg tablet 20 mg PO DAILY 08/12/22 05/04/24 History furosemide 40 mg tablet (Lasix) 40 mg PO DAILY #90 tabs 03/19/23 05/04/24 Rx empagliflozin 10 mg tablet 10 mg PO DAILY #90 tabs 06/01/23 05/04/24 Rx (Jardiance) spironolactone 25 mg tablet 25 mg PO DAILY #30 tabs 06/01/23 05/04/24 Rx metoprolol succinate 50 mg 50 mg PO DAILY this is a dose 11/02/23 05/04/24 Rx tablet,extended release 24 hr increase #90 tabs citalopram 20 mg tablet 20 mg PO QDAY 11/11/23 05/04/24 History potassium chloride 20 mEq 20 meq PO Q OTHER DAY 11/11/23 05/04/24 History tablet,extended release(part/cryst) (Klor-Con M) trazodone 100 mg tablet 200 mg PO QHS mood 11/11/23 05/04/24 History folic acid 1 mg tablet 1 mg PO DAILY@0800 #0 tabs 12/09/23 05/04/24 Rx thiamine HCl (vitamin B1) 100 mg 100 mg PO DAILYCM #0 tabs 12/09/23 05/04/24 Rx tablet levothyroxine 112 mcg tablet 112 mcg PO DAILY 01/01/24 05/04/24 History apixaban 5 mg tablet (Eliquis) 5 mg PO BID 03/17/24 05/04/24 History Ejection fraction %: 60 Have you fallen in the past year?: Yes Nurse's Note: Patient asking if pacemaker can be turned off for an MRI of his back. 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 Normal [facility] Office Visiton 04-29-2024 Follow-up visit [id number] Jam Walls 1955 M Date Provider Department Center 04/29/2024 23551-SKXQLLMARIANA REID [facility] None Family History Problem Relation Age of Onset Atrial fibrillation Mother Other Mother Comments: pacemaker Heart disease Father Family Status - Relation Status Age at Mother Father Brother Alive Brother Alive Brother Alive Level of Service:67128 [place] OFFICE/OUTPATIENT ESTABLISHED LOW MDM 20 MIN Reason for Visit and Comments: Follow-up [100863] - pt [facility] Progress Noteon 04-29-2024 Progress Note NEUROSURGERY and SPI NE FOLLOW-UP NOTE Patient Name: Brianne Walls Patient : 1955 PCP: ARTHUR CARVALHO MD History of Present Illness: 68 y.o. presents with low back pain and lumbar radiculopathy. He continues to have constant low back pain which has been longstanding. He describes the pain as sharp and radiates to the hips bilaterally. He has back spasms. He denies pain radiating down the legs. Denies numbness or weakness in the legs. He has completed 6 weeks of physical therapy. He felt temporary relief while doing the therapy, but this was only short lasting. His pain is still significant and affecting his quality of life. He had a lumbar CT competed that was ordered by his pain management provider. He had another appointment with pain management in May to consider injections. Chief Complaint Patient presents with Follow-up pt Past Medical History: Past Medical History: Diagnosis Date Anemia Arthritis Bone infection ([facility]) spine CAD (coronary artery disease) Chronic back pain Chronic kidney disease 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 ([facility]) 04/30/2023 COPD (chronic obstructive pulmonary disease) ([facility]) Depression DVT (deep venous thrombosis) ([facility]) Endocarditis Head injury History of blood transfusion Hyperlipidemia Hypertension 01/13/2011 Hyperthyroidism Pacemaker Paroxysmal A-fib (CMS/HCC) ([facility]) Pneumonia Sleep apnea Past Surgical History: Past Surgical History: Procedure Laterality Date CARDIAC CATHETERIZATION N/A 05/25/2023 Performed by Lance Hobbs MD at [facility] Cardiac Cath/EP Lab CARDIAC VALVE REPLACEMENT 2010 MVR/CCF HARDWARE REMOVAL Right 05/02/2016 SCREW IN RIGHT 4TH TOE INSERT / REPLACE / REMOVE PACEMAKER 10/10/2014 MITRAL VALVE REPLACEMENT 07/27/2014 bioprosthetic valve TRICUSPID VALVE SURGERY 07/27/2014 Repair Home Medications: Prior to Admission medications Medication Sig Start Date End Date Taking? Authorizing Provider apixaban (Eliquis) 5 MG tablet Take 1 tablet (5 mg) by mouth 2 times daily. 02/23/24 Yes Lance Hobbs MD atorvastatin (Lipitor) 20 MG tablet Take 20 mg by mouth in the morning. Yes Historical Provider, buPROPion SR (Wellbutrin SR) 150 MG 12 hr tablet Take 150 mg by mouth 2 times daily. 02/26/23 Yes Historical Provider, citalopram (CeleXA) 20 MG tablet Take 20 mg by mouth daily. 08/17/23 Yes Historical Provider, doxepin (SINEquan) 150 MG capsule Take 150 mg by mouth Nightly. Yes Historical Provider, empagliflozin (Jardiance) 10 MG Take 1 tablet (10 mg) by mouth daily. 05/25/23 05/24/24 Yes Lance Hobbs MD furosemide (Lasix) 40 MG tablet TAKE 1 TABLET EVERY DAY NEEDED FOR WT GAIN OVER 3# IN A DAY OR 5# IN A WEEK, SHORTNESS OF BREATH OR SWELLING Patient taking differently: PRN 02/05/24 Yes KIARA Bain CNP HYDROcodone-acetaminophen (Lemoore) 5-325 MG tablet TAKE 1 TABLET BY MOUTH FOUR TIMES DAILY FOR 28 DAYS 04/07/23 Yes Historical Provider, MD PURCELL M20 20 MEQ ER tablet TAKE 1 TABLET (20 MEQ) BY MOUTH EVERY OTHER DAY. DO NOT CRUSH OR CHEW. TAKE 40 MEQ ON DAY 1 AND THEN 20 MEQ EVERY OTHER DAY THERAFTER 10/21/23 Yes KIARA Talbot CNP levothyroxine (Synthroid, Levoxyl) 100 MCG tablet Take 100 mcg by mouth every morning (before breakfast). Yes Historical Provider, metoprolol succinate XL (Toprol-XL) 50 MG 24 hr tablet Take 50 mg by mouth daily. 01/13/23 Yes Historical Provider, spironolactone (Aldactone) 25 MG tablet TAKE 1 TABLET BY MOUTH EVERY DAY 02/29/24 Yes Lance Hobbs MD tamsulosin (Flomax) 0.4 MG 24 hr capsule Take 0.4 mg by mouth in the morning and 0.4 mg in the evening. Yes Historical Provider, tiZANidine (Zanaflex) 4 MG tablet TAKE 1 TABLET ORAL TWICE A DAY FOR 30 DAYS 06/03/22 Yes Historical Provider, traZODone (Desyrel) 100 MG tablet Take 200 mg by mouth Nightly. 01/11/23 Yes Historical Provider, albuterol 108 (90 Base) MCG/ACT inhaler TAKE 2 PUFFS INHALED 6 TIMES PER DAY FOR 30 DAYS NEEDED WHEEZING/SHORTNESS OF BREATH. Patient not taking: Reported on 04/29/2024 03/10/23 Historical Provider, Allergies: Patient has no known allergies. Social History: TOBACCO: reports that he quit smoking about 1 years ago. His smoking use included cigarettes. He started smoking about 49 years ago. He has a 23.5 pack-year smoking history. He has never been exposed to tobacco smoke. He quit smokeless tobacco use about 9 years ago. ETOH: reports that he does not currently use alcohol. RECREATIONAL DRUG USE: Social History Substance and Sexual Activity Drug Use Not Currently Types: Heroin, Crack cocaine Comment: Former user/ caffeine- 1 cup of coffee daily Family History: Family History Problem Relation Name Age of Onset Atrial fibrillation Mother Other (41863) Mother pacemaker Heart disease Father Review of Systems: Review of Systems 12-point ROS negative un (more content not included)... Normal [facility] PT D/C Summary (1)on 024 PT D/C Summary (1) [facility] [address] [place] [address] / REHABILITATION SERVICES DISCHARGE SUMMARY MR#: [id number] Acct: [id number] Name: BRIANNE WALLS Rep #: [id number] : 1955 68 From: Zain Barillas PT, Cert. T, OCS Referring Dr.: [facility] DO[facility] Status: REG R CR Insurance: MEDICARE PART A B [facility] Discharge Summary D/C summary: It has been my pleasure to treat BRIANNE WALLS referred by MARIANA REID, with the diagnosis of CHRONIC BILATERAL LOW BACK PAIN WITHOUT SCIATICA for a total of 9 visit(s). Discharge Date: Please see the following information for a summary of their discharge status. Subjective Subjective: Seen Neurologist Plan for CT scan unable MRI Pain Bilateral Back: Pain Intensity (Out of 10): 5 Bilateral Hip: Pain Intensity (Out of 10): 5 Overall Improvement % Improvement: 30 Objective Objective/Function: POSTURE: mild forward posture , trunk flexed forward NEURO: denies paresthesia/tingling ,reflexes L3-4,L4-5,L5-S1 1/3 PALAPTION: tender SI/LS FLEXABILITY: hamstrings mod tight LUMBAR ROM: flexion mod tight ,extension severe tight ,side glides mod tight MMT: quads 4-/5 ,hamstrings 4/5 ,hip flexion 4-5/5 ,hip abd 3+/5 ,ankle 4/5 Goals Goal 1:: Patient to be I with HEP for Aquatic therapy Goal 2:: Patient to improve lumbar ROM for function of recovery to put on shoes. Goal 3:: Patient to demonstrate 50% improvement with less pain and improved function Goal 4:: Patient to improve back oswestry score by 5 points to improve QOL Goal 5:: Patient to be able to walk and stand 10 -15 mins to improve ADLS Plan Plan: RTD ,CT SCAN D/C Information d/c sentence: If there are questions or concerns regarding this patient's physical therapy, please feel free to call me at [phone]. Thank you for the referral of this patient. Sincerely, Zain Barillas, PT, Cert MDT, OCS Balance/Gait/Functional tests Balance/Special Test Scores Oswestry Low Back Score: 28 Improvement % Improvement: 30 04/19/24 1504 CC: MARIANA REID; Dr. Fracisco Carvalho MD JLA Signed Normal [facility] Office Visiton 03-11-2024 Follow-up visit [id number] Jam Walls 1955 M Date Provider Department Center 03/11/2024 73732-MJJANBMARIANA REID [facility] None Family History Problem Relation Age of Onset Atrial fibrillation Mother Other Mother Comments: pacemaker Heart disease Father Family Status - Relation Status Age at Mother Father Brother Alive Brother Alive Brother Alive Level of Service:30313 [place] OFFICE/OUTPATIENT ESTABLISHED LOW MDM 20 MIN Reason for Visit and Comments: Follow-up [[id number]] - 6 wk [facility] Progress Noteon 03-11-2024 Progress Note NEUROSURGERY and SPI NE FOLLOW-UP NOTE Patient Name: Brianne Walls Patient : 1955 PCP: ARTHUR CARVALHO MD History of Present Illness: Ange returns to clinic for further evaluation following his recent CT brain and further discussion regarding his long-standing back pain and lumbar radiculopathy. CT brain obtained on 03/08 shows near complete resolution in his known SDH. He denies headaches, nausea or changes in strength, sensation or vision. He has completed a session of physical therapy and reports mild improvement in his symptoms, which included moderate lower back pain and BLE radicular symptoms. Past Medical History: Past Medical History: Diagnosis Date Anemia Arthritis Bone infection (HCC) spine CAD (coronary artery disease) Chronic back pain Chronic kidney disease 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) 04/30/2023 COPD (chronic obstructive pulmonary disease) ([facility]) Depression DVT (deep venous thrombosis) ([facility]) Endocarditis Head injury History of blood transfusion Hyperlipidemia Hypertension 01/13/2011 Hyperthyroidism Pacemaker Paroxysmal A-fib (CMS/HCC) ([facility]) Pneumonia Sleep apnea Past Surgical History: Past Surgical History: Procedure Laterality Date CARDIAC CATHETERIZATION N/A 05/25/2023 Performed by Lance Hobbs MD at [facility] Cardiac Cath/EP Lab CARDIAC VALVE REPLACEMENT [...] WHEEZING/SHORTNESS OF BREATH. 03/10/23 Yes Historical Provider, apixaban (Eliquis) 5 MG tablet Take 1 tablet (5 mg) by mouth 2 times daily. 02/23/24 Yes Lance Hobbs MD atorvastatin (Lipitor) 20 MG tablet Take 20 mg by mouth in the morning. Yes Historical Provider, buPROPion SR (Wellbutrin SR) 150 MG 12 hr tablet Take 150 mg by mouth 2 times daily. 02/26/23 Yes Historical Provider, citalopram (CeleXA) 20 MG tablet Take 20 mg by mouth daily. 08/17/23 Yes Historical Provider, doxepin (SINEquan) 150 MG capsule Take 150 mg by mouth Nightly. Yes Historical Provider, empagliflozin (Jardiance) 10 MG Take 1 tablet (10 mg) by mouth daily. 05/25/23 05/24/24 Yes Lance Hobbs MD furosemide (Lasix) 40 MG tablet TAKE 1 TABLET EVERY DAY NEEDED FOR WT GAIN OVER 3# IN A DAY OR 5# IN A WEEK, SHORTNESS OF BREATH OR SWELLING 02/05/24 Yes Carol Haider APRN - M[facility]IN HYDROcodone-acetaminophen (Lemoore) 5-325 MG tablet TAKE 1 TABLET BY MOUTH FOUR TIMES DAILY FOR 28 DAYS 04/07/23 Yes Historical Provider, MD MERRILL-NELL M20 20 MEQ ER tablet TAKE 1 TABLET (20 MEQ) BY MOUTH EVERY OTHER DAY. DO NOT CRUSH OR CHEW. TAKE 40 MEQ ON DAY 1 AND THEN 20 MEQ EVERY OTHER DAY THERAFTER 10/21/23 Yes KIARA Talbot CNP levothyroxine (Synthroid, Levoxyl) 100 MCG tablet Take 100 mcg by mouth every morning (before breakfast). Yes Historical Provider, metoprolol succinate XL (Toprol-XL) 50 MG 24 hr tablet Take 50 mg by mouth daily. 01/13/23 Yes Historical Provider, spironolactone (Aldactone) 25 MG tablet TAKE 1 TABLET BY MOUTH EVERY DAY 02/29/24 Yes Lance Hobbs MD tamsulosin (Flomax) 0.4 MG 24 hr capsule Take 0.4 mg by mouth in the morning and 0.4 mg in the evening. Yes Historical Provider, tiZANidine (Zanaflex) 4 MG tablet TAKE 1 TABLET ORAL TWICE A DAY FOR 30 DAYS 06/03/22 Yes Historical Provider, traZODone (Desyrel) 100 MG tablet Take 200 mg by mouth Nightly. 01/11/23 Yes Historical Provider, Allergies: Patient has no known allergies. Social History: TOBACCO: reports that he quit smoking about 21 months ago. His smoking use included cigarettes. He started smoking about 48 years ago. He has a 23.5 pack-year smoking history. He has never been [...] Age of Onset Atrial fibrillation Mother Other ([address]) Mother pacemaker Heart disease Father Review of Systems: Review of Systems 12-point ROS completed and negative unless otherwise documented. Physical Examination: Vitals: 03/11/24 1136 BP: 109/64 Pulse: 76 Physical Exam Awake, alert, oriented x3 PERRL, TM, FS Speech fluent/appropriate BUE 5/5, no drift BLE 5/5 SILT Results Labs: Last 24hrs No results found for this or any previous vis (more content not included)... Normal [facility] CT Head WO contraston 2023 Near complete resolution of the right frontal subdural collection. Report Dictated on Electronically Signed By: Nasir Oliveros MD Electronically Signed Date/Time: 03/08/2024 2:03 PM EDT [facility] Patient Name: BRIANNE VALLECILLO : 1955 Exam Date/Time: 03/08/2024 08:02 Procedure: CT HEAD WO IV CONTRAST Ordering Provider: STOVER AASHISH Reason For Exam: Subdural hematoma CT head without contrast History: Subdural hematoma Technique: 3 mm axial images through the head without IV contrast Dose reduction was employed with automated exposure control. Comparison: 01/19/2024 Near complete resolution of the right frontal subdural collection. There is no evidence of intracranial hemorrhage, hydrocephalus, or acute infarct. No evidence of a mass of mass affect. The visualized portions of the paranasal sinuses and the mastoid air cells are clear. [facility] Nasir Oliveros MD - 03/08/2024 Patient Name: BRIANNE WALLS : 1955 Exam Date/Time: 03/08/2024 08:02 Procedure: CT HEAD WO IV CONTRAST Ordering Provider: STOVER AASHISH Reason For Exam: Subdural hematoma CT head without contrast History: Subdural hematoma Technique: 3 mm axial images through the head without IV contrast Dose reduction was employed with automated exposure control. Comparison: 01/19/2024 Near complete resolution of the right frontal subdural collection. There is no evidence of intracranial hemorrhage, hydrocephalus, or acute infarct. No evidence of a mass of mass affect. The visualized portions of the paranasal sinuses and the mastoid air cells are clear. IMPRESSION: Near complete resolution of the right frontal subdural collection. Report Dictated on Electronically Signed By: Nasir Oliveros MD Electronically Signed Date/Time: 03/08/2024 2:03 PM EDT [facility] Study observation (narrative) [facility] CT Head WO contrastOrdered B y: Nasir Oliveros on 03-08-2024 [employer] Work Phone: CT Head WO contraston 2023 Interval decrease in thickness of the previously identified low-attenuation extra-axial fluid collection overlying the right frontal convexity. No CT evidence of an acute intracranial abnormality. Report Dictated on Electronically Signed By: Nam Tran MD Electronically Signed Date/Time: 01/19/2024 4:09 PM EDT [facility] Patient Name: BRIANNE VALLECILLO : 1955 [id number] Exam Date/Time: 01/19/2024 15:37 Procedure: CT HEAD WO IV CONTRAST Ordering Provider: DEL CASTILLO KRISTI Reason For Exam: Subdural hematoma EXAMINATION: CT HEAD WO IV CONTRAST HISTORY: Subdural hematoma - - - - - [id number] - - - - TECHNIQUE: CT head [...] morphology. Other: Coronary artery calcifications are noted. Manager Of Disaster Recovery (topogram) images: No additional findings. [facility] Nam Tran MD - 01/19/2024 Patient Name: BRIANNE WALLS : 1955 [id number] Exam Date/Time: 01/19/2024 15:37 Procedure: CT HEAD WO IV CONTRAST Ordering Provider: DEL CASTILLO KRISTI Reason For Exam: Subdural hematoma EXAMINATION: CT HEAD WO IV CONTRAST HISTORY: Subdural hematoma - - - - - [id number] - - - - TECHNIQUE: CT head [...] morphology. Other: Coronary artery calcifications are noted. Manager Of Disaster Recovery (topogram) images: No additional findings. IMPRESSION: Interval decrease in thickness of the previously identified low-attenuation extra-axial fluid collection overlying the right frontal convexity. No CT evidence of an acute intracranial abnormality. Report Dictated on Electronically Signed By: Nam Tran MD Electronically Signed Date/Time: 01/19/2024 4:09 PM EDT [facility] Study observation (narrative) [facility] CT Head WO contrastOrdered B y: Nam Tran on 01-19-2024 [employer] Work Phone: Basic metabolic 1998 panelon 01-07-2024 Anion gap [Moles/Vol] 4 mmol/L 3 - 13 mmol/L [facility] Calcium [Mass/Vol] 9.1 mg/dL 8.4 - 10. 4 mg/dL [facility] Chloride [Moles/Vol] 104 mmol/L 98 - 10 7 mmol/L [facility] CO2 [Moles/Vol] 27 mmol/L 22 - 30 mmol/L [facility] Creatinine [Mass/Vol] 0.79 mg/dL 0.66 - 1.25 mg/dL [facility] GFR/1.73 sq M.predicted (S/P/Bld) [Vol rate/Area] - PINF [facility] Comment on above: Calculation based on the Chronic Kidney Disease Epidemiology Collaboration (CKD-EPI) equation refit without adjustment for race Glucose [Mass/Vol] 185 mg/dL High 70 - 100 mg/dL [facility] Interpretation and review of laboratory results Abnormal [facility] Potassium [Moles/Vol] 4.7 mmol/L 3.5 - 5.1 mmol/L [facility] Sodium [Moles/Vol] 134 mmol/L Low 135 - 145 mmol/L [facility] Urea nitrogen [Mass/Vol] 27 mg/dL High 9 - 20 mg/dL [facility] CBC panel Auto (Bld)on 01-06 Erythrocyte distribution width (RBC) [Ratio] 14.2 % 11.5 - 15.0 % [facility] Hematocrit (Bld) [Volume fraction] 31.5 % Low 40.0 - 52.0 % [facility] Hemoglobin (Bld) [Mass/Vol] 10.1 g/dL Low 13.0 - 18.0 g/dL [facility] Interpretation and review of laboratory results Abnormal [facility] MCH (RBC) [Entitic mass] 29.2 pg 26.0 - 34.[address] [facility] MCHC (RBC) [Mass/Vol] 32.1 % 30.5 - 36.0 % [facility] MCV (RBC) [Entitic vol] 91.0 fL 77.0 - 99.[address] [facility] Platelet mean volume (Bld) [Entitic vol] 11.8 fL 9.0 - 12.[address] [facility] Platelets (Bld) [#/Vol] 124 10*3/uL Low 140 - 440 10*3/uL [facility] RBC (Bld) [#/Vol] 3.46 10*6/uL Low 4.40 - 5.90 10*6/uL 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 The hematoma slightly smaller with stable mass effect. No acute infarct or new acute intracranial hemorrhage. Report Dictated on Electronically Signed By: Vel Rawls MD Electronically Signed Date/Time: 01/07/2024 1:50 PM T [employer] [facility] Patient Name: BRIANNE VALLECILLO : 1955 Exam Date/Time: 01/07/2024 04:52 Procedure: CT HEAD [...] extra cranial soft tissue abnormality is identified. [facility] Vel Rawls M D - 01/07/2024 Patient Name: BRIANNE WALLS : 1955 [id number] Exam Date/Time: 01/07/2024 04:52 Procedure: CT HEAD [...] hemorrhage. Report Dictated on Electronically Signed By: Vel Rawls MD Electronically Signed Date/Time: 01/07/2024 1:50 PM EDT [facility] Radiology Study observation (narrative) [facility] CT Head WO contrastOrdered B y: Vel Rawls on 01-07-2024 [employer] Work Phone: Laboratory - Chemistry and C hemistry - challengeon 01-06-2024 Glucose [Mass/Vol] 96 mg/dL 70 - 100 mg/dL [employer] [facility] No Panel Informationon 01-05 Interpretation and review of laboratory results Normal [facility] Performed by: [facility], [address] [place] [address] CLIA ID: [id number] [facility] RFA Cerebral arteries Bilate ral Views W contrast IAon 01-06-2024 Impression: * Successful embolization of the anterior dural branches of the right middle meningeal artery using liquid embolic agent for acute on chronic, right subdural hematoma with pseudomembranes. Clinical correlation is recommended. Report Dictated on Electronically Signed By: Delbert Stover Electronically Signed Date/Time: 01/06/2024 1:39 PM EDT [facility] Patient Name: BRIANNE VALLECILLO : 1955 Exam Date/Time: 01/06/2024 13:01 Procedure: IR ANGIOGRAM CEREBRAL W POSSIBLE INTERVENTION Ordering Provider: GONZALEZ VALERIE Reason For Exam: Subdural hematoma Procedure: Diagnostic cerebral angiogram Endovascular embolization of the anterior dural branches of the right middle meningeal artery using liquid embolic agent Business Affairs Manager/Treating Physician: Delbert Stover MD Clinical Information: The [...] to stroke, bleed, infection, dissection, pseudo aneurysm, NV, renal failure, radiation injury, hair loss, inability [...] 4F sheath was exchanged for a 6 [place] short sheath over a guidewire.The short sheath was then connected to a continuous heparinized saline flush. Diagnostic cerebral angiogram Under fluoroscopic guidance, a [employer] guide catheter was advanced over a [employer] diagnostic catheter and a 180 cm guidewire [...] the middle meni (more content not included)... [facility] Delbert Stover MD - 01/06/2024 Patient Name: BRIANNE WALLS : 1955 [id number] Exam Date/Time: 01/06/2024 13:01 Procedure: IR ANGIOGRAM CEREBRAL W POSSIBLE INTERVENTION Ordering Provider: GONZALEZ VALERIE Reason For Exam: Subdural hematoma Procedure: Diagnostic cerebral angiogram Endovascular embolization of the anterior dural branches of the right middle meningeal artery using liquid embolic agent Business Affairs Manager/Treating Physician: Delbert Stover MD Clinical Information: The [...] to stroke, bleed, infection, dissection, pseudo aneurysm, NV, renal failure, radiation injury, hair loss, inability [...] 4F sheath was exchanged for a 6 Green[place]ic short sheath over a guidewire.The short sheath was then connected to a continuous heparinized saline flush. Diagnostic cerebral angiogram Under fluoroscopic guidance, a [employer] guide catheter was advanced over a [employer] diagnostic catheter and a 180 cm guidewire [...] at the orig (more content not included)... [facility] Radiology Study observation (narrative) [facility] No Panel InformationOrdered By: Marianna Jacobsen on 01-05-2024 P [place] 0 degrees [facility] [employer] Work Phone: [place] Interval [address] [facility] [facility] Work Phone: QRS [place] -[address] [facility] [facility] Work Phone: QRSD Interval [address] [facility] Work Phone: QT Interval 506 ms [employer] Work Phone: QTC Interval 568 ms [facility] [employer] Work Phone: T Wave [place] 38 degrees [facility] [employer] Work Phone: [facility] Work Phone: No Panel Informationon 01-04 Ventricular-paced rh ythm Electronically Signed On 01-05-2024 17:43:19 EDT by Marianna Bailey M D - 01/05/2024 IMPRESSION: Ventricular-paced rhythm Electronically Signed On 01-05-2024 17:43:19 EDT by Marianna Jacobsen [facility] Anti-Xa, LMWH 0.2 0.2-0.5 [Prophylac tic] IU/mL [facility] Treatment Indication Prophylactic Herrera [facility] Vital signsOrdered By: Adrián Jacobsen on 01-05-2024 Heart rate 76 /min bpm [facility] [employer] Work Phone: [phone] Basic metabolic 1998 panelon 01-04-2024 Anion gap [Moles/Vol] 4 mmol/L 3 - 13 mmol/L [facility] Calcium [Mass/Vol] 8.5 mg/dL 8.4 - 10. 4 mg/dL [facility] Chloride [Moles/Vol] 106 mmol/L 98 - 10 7 mmol/L [facility] CO2 [Moles/Vol] 24 mmol/L 22 - 30 mmol/L [facility] Creatinine [Mass/Vol] 0.73 mg/dL 0.66 - 1.25 mg/dL [facility] GFR/1.73 sq M.predicted (S/P/Bld) [Vol rate/Area] - PINF [facility] Comment on above: Calculation based on the Chronic Kidney Disease Epidemiology Collaboration (CKD-EPI) equation refit without adjustment for race Glucose [Mass/Vol] 89 mg/dL 70 - 100 mg/dL [facility] Interpretation and review of laboratory results Abnormal [facility] Potassium [Moles/Vol] 4.3 mmol/L 3.5 - 5.1 mmol/L [facility] Sodium [Moles/Vol] 135 mmol/L 135 - 145 mmol/L [facility] Urea nitrogen [Mass/Vol] 25 mg/dL High 9 - 20 mg/dL [facility] CBC W Auto Differential pane l (Bld)on 01-04-2024 Basophils (Bld) [#/Vol] 0.1 10*3/uL 0.0 - 0.2 10*3/uL [facility] Basophils/100 WBC (Bld) 0.7 % 0.0 - 2.0 % [facility] Eosinophils (Bld) [#/Vol] 0.3 10*3/uL 0.0 - 0.5 10*3/uL [facility] Eosinophils/100 WBC (Bld) 3.5 % 0.0 - 6.0 % [facility] Erythrocyte distribution width (RBC) [Ratio] 14.7 % 11.5 - 15.0 % [facility] Hematocrit (Bld) [Volume fraction] 32.9 % Low 40.0 - 52.0 % [facility] Hemoglobin (Bld) [Mass/Vol] 10.5 g/dL Low 13.0 - 18.0 g/dL [facility] Immature granulocytes (Bld) [#/Vol] 0.0 10*3/uL NINF - 0.1 10*3/uL [facility] Immature granulocytes/100 WBC (Bld) 0.6 % 0.0 - 2.0 % [facility] Interpretation and review of laboratory results Abnormal [facility] Lymphocytes (Bld) [#/Vol] 1.2 10*3/uL 1.0 - 4.3 10*3/uL [facility] Lymphocytes/100 WBC (Bld) 16.0 % 15.0 - 45.0 % [facility] MCH (RBC) [Entitic mass] 29.8 pg 26.0 - 34.[address] [facility] MCHC (RBC) [Mass/Vol] 31.9 % 30.5 - 36.0 % [facility] MCV (RBC) [Entitic vol] 93.5 fL 77.0 - 99.[address] [facility] Monocytes (Bld) [#/Vol] 0.9 10*3/uL 0.0 - 0.9 10*3/uL [facility] Monocytes/100 WBC (Bld) 12.5 % 5.0 - 13.0 % [facility] Neutrophils (Bld) [#/Vol] 4.8 10*3/uL 1.8 - 7.5 10*3/uL [facility] Neutrophils/100 WBC (Bld) 66.7 % 38.0 - 82.0 % [facility] Nucleated RBC/100 WBC (Bld) [Ratio] 0.0 % [facility] Platelet mean volume (Bld) [Entitic vol] 11.4 fL 9.0 - 12.[address] [facility] Platelets (Bld) [#/Vol] 131 10*3/uL Low 140 - 440 10*3/uL [facility] RBC (Bld) [#/Vol] 3.52 10*6/uL Low 4.40 - 5.90 10*6/uL [facility] WBC (Bld) [#/Vol] 7.2 10*3/uL 3.6 - 10.7 10*3/uL [facility] Basic metabolic 1998 panelon 01-03-2024 Anion gap [Moles/Vol] 5 mmol/L 3 - 13 mmol/L [facility] Calcium [Mass/Vol] 8.6 mg/dL 8.4 - 10. 4 mg/dL [facility] Chloride [Moles/Vol] 108 mmol/L High 98 - 10 7 mmol/L [facility] CO2 [Moles/Vol] 22 mmol/L 22 - 30 mmol/L [facility] Creatinine [Mass/Vol] 0.86 mg/dL 0.66 - 1.25 mg/dL [facility] GFR/1.73 sq M.predicted (S/P/Bld) [Vol rate/Area] - PINF [facility] Comment on above: Calculation based on the Chronic Kidney Disease Epidemiology Collaboration (CKD-EPI) equation refit without adjustment for race Glucose [Mass/Vol] 91 mg/dL 70 - 100 mg/dL [facility] Interpretation and review of laboratory results Abnormal [facility] Potassium [Moles/Vol] 4.3 mmol/L 3.5 - 5.1 mmol/L [facility] Sodium [Moles/Vol] 135 mmol/L 135 - 145 mmol/L [facility] Urea nitrogen [Mass/Vol] 31 mg/dL High 9 - 20 mg/dL [facility] CBC W Auto Differential pane l (Bld)on 01-03-2024 Basophils (Bld) [#/Vol] 0.0 10*3/uL 0.0 - 0.2 10*3/uL [facility] Basophils/100 WBC (Bld) 0.5 % 0.0 - 2.0 % [facility] Eosinophils (Bld) [#/Vol] 0.1 10*3/uL 0.0 - 0.5 10*3/uL [facility] Eosinophils/100 WBC (Bld) 1.4 % 0.0 - 6.0 % [facility] Erythrocyte distribution width (RBC) [Ratio] 14.8 % 11.5 - 15.0 % [facility] Hematocrit (Bld) [Volume fraction] 32.0 % Low 40.0 - 52.0 % [facility] Hemoglobin (Bld) [Mass/Vol] 10.2 g/dL Low 13.0 - 18.0 g/dL [facility] Immature granulocytes (Bld) [#/Vol] 0.0 10*3/uL NINF - 0.1 10*3/uL [facility] Immature granulocytes/100 WBC (Bld) 0.4 % 0.0 - 2.0 % [facility] Interpretation and review of laboratory results Abnormal [facility] Lymphocytes (Bld) [#/Vol] 1.1 10*3/uL 1.0 - 4.3 10*3/uL [facility] Lymphocytes/100 WBC (Bld) 15.6 % 15.0 - 45.0 % [facility] MCH (RBC) [Entitic mass] 29.6 pg 26.0 - 34.[address] [facility] MCHC (RBC) [Mass/Vol] 31.9 % 30.5 - 36.0 % [facility] MCV (RBC) [Entitic vol] 92.8 fL 77.0 - 99.[address] [facility] Monocytes (Bld) [#/Vol] 1.0 10*3/uL High 0.0 - 0.9 10*3/uL [facility] Monocytes/100 WBC (Bld) 13.0 % 5.0 - 13.0 % [facility] Neutrophils (Bld) [#/Vol] 5.1 10*3/uL 1.8 - 7.5 10*3/uL [facility] Neutrophils/100 WBC (Bld) 69.1 % 38.0 - 82.0 % [facility] Nucleated RBC/100 WBC (Bld) [Ratio] 0.0 % [facility] Platelet mean volume (Bld) [Entitic vol] 10.8 fL 9.0 - 12.[address] [facility] Platelets (Bld) [#/Vol] 127 10*3/uL Low 140 - 440 10*3/uL [facility] RBC (Bld) [#/Vol] 3.45 10*6/uL Low 4.40 - 5.90 10*6/uL [facility] WBC (Bld) [#/Vol] 7.3 10*3/uL 3.6 - 10.7 10*3/uL [facility] Laboratory - Chemistry and C hemistry - challengeon 01-03-2024 Glucose [Mass/Vol] 189 mg/dL High 70 - 100 mg/dL [facility] No Panel Informationon 01-02 Interpretation and review of laboratory results Abnormal [facility]: [facility], [address] [place], [place] [id number] CLIA ID: [id number] [facility] Basic metabolic 1998 panelon 01-02-2024 Anion gap [Moles/Vol] 6 mmol/L 3 - 13 mmol/L [facility] Calcium [Mass/Vol] 9.2 mg/dL 8.4 - 10. 4 mg/dL [facility] Chloride [Moles/Vol] 104 mmol/L 98 - 10 7 mmol/L [facility] CO2 [Moles/Vol] 23 mmol/L 22 - 30 mmol/L [facility] Creatinine [Mass/Vol] 0.91 mg/dL 0.66 - 1.25 mg/dL [facility] GFR/1.73 sq M.predicted (S/P/Bld) [Vol rate/Area] - PINF [facility] Comment on above: Calculation based on the Chronic Kidney Disease Epidemiology Collaboration (CKD-EPI) equation refit without adjustment for race Glucose [Mass/Vol] 133 mg/dL High 70 - 100 mg/dL [facility] Interpretation and review of laboratory results Abnormal [facility] Potassium [Moles/Vol] 4.2 mmol/L 3.5 - 5.1 mmol/L [facility] Sodium [Moles/Vol] 133 mmol/L Low 135 - 145 mmol/L [facility] Urea nitrogen [Mass/Vol] 30 mg/dL High 9 - 20 mg/dL [facility] CBC W Auto Differential pane l (Bld)on 01-02-2024 Basophils (Bld) [#/Vol] 0.0 10*3/uL 0.0 - 0.2 10*3/uL [facility] Basophils/100 WBC (Bld) 0.1 % 0.0 - 2.0 % [facility] Eosinophils (Bld) [#/Vol] 0.0 10*3/uL 0.0 - 0.5 10*3/uL [facility] Eosinophils/100 WBC (Bld) 0.0 % 0.0 - 6.0 % [facility] Erythrocyte distribution width (RBC) [Ratio] 14.3 % 11.5 - 15.0 % [facility] Hematocrit (Bld) [Volume fraction] 33.1 % Low 40.0 - 52.0 % [facility] Hemoglobin (Bld) [Mass/Vol] 10.8 g/dL Low 13.0 - 18.0 g/dL [facility] Immature granulocytes (Bld) [#/Vol] 0.0 10*3/uL NINF - 0.1 10*3/uL [facility] Immature granulocytes/100 WBC (Bld) 0.5 % 0.0 - 2.0 % [facility] Interpretation and review of laboratory results Abnormal [facility] Lymphocytes (Bld) [#/Vol] 0.6 10*3/uL Low 1.0 - 4.3 10*3/uL [facility] Lymphocytes/100 WBC (Bld) 7.4 % Low 15.0 - 45.0 % [facility] [employer] MCH (RBC) [Entitic mass] 29.4 pg 26.0 - 34.0 pg [facility] MCHC (RBC) [Mass/Vol] 32.6 % 30.5 - 36.0 % [facility] MCV (RBC) [Entitic vol] 90.2 fL 77.0 - 99.0 fL [facility] Monocytes (Bld) [#/Vol] 1.3 10*3/uL High 0.0 - 0.9 10*3/uL [facility] Monocytes/100 WBC (Bld) 15.1 % High 5.0 - 13.0 % [facility] Neutrophils (Bld) [#/Vol] 6.7 10*3/uL 1.8 - 7.5 10*3/uL [facility] Neutrophils/100 WBC (Bld) 76.9 % 38.0 - 82.0 % [facility] [employer] Nucleated RBC/100 WBC (Bld) [Ratio] 0.0 % [facility] Platelet mean volume (Bld) [Entitic vol] 10.9 fL 9.0 - 12.7 fL [facility] Platelets (Bld) [#/Vol] 163 10*3/uL 140 - 440 10*3/uL [facility] RBC (Bld) [#/Vol] 3.67 10*6/uL Low 4.40 - 5.90 10*6/uL [facility] WBC (Bld) [#/Vol] 8.7 10*3/uL 3.6 - 10.7 10*3/uL [facility] CT Head WO contraston 2023 1. Stable right frontoparietal subdural hematoma with stable thin subdural hemorrhage noted in the posterior falx on the right. Unchanged minimal right to left midline shift measuring up to 3 mm. Report Dictated on Electronically Signed By: Eliceo Gaston MD Electronically Signed Date/Time: 01/02/2024 6:08 AM [facility] [employer] Patient Name: BRIANNE VALLECILLO : 1955 Exam Date/Time: 01/02/2024 04:59 Procedure: [...] cells are well aerated. Calvarium is unremarkable. [facility] Eliceo Gaston MD - 01/02/2024 [...] Electronically Signed Date/Time: 01/02/2024 6:08 AM EDT [facility] [employer] Radiology Study observation (narrative) [facility] CT Head WO contrastOrdered B y: Eliceo Gaston on 01-02-2024 [employer] Work Phone: Laboratory - Chemistry and C hemistry - challengeon 01-02-2024 Glucose [Mass/Vol] 125 mg/dL High 70 - 100 mg/dL [facility] [employer] Glucose [Mass/Vol] 137 mg/dL High 70 - 100 mg/dL [facility] [employer] Glucose [Mass/Vol] 137 mg/dL High 70 - 100 mg/dL [facility] [employer] No Panel Informationon 01-01 Interpretation and review of laboratory results Abnormal [facility] [employer] Performed by: [facility], [address] [place] [address] CLIA ID: [id number] [facility] [employer] [facility] Interpretation and review of laboratory results Abnormal [facility] [employer] Performed by: [facility], [address] [place] [id number] CLIA ID: [id number] [facility] Interpretation and review of laboratory results Abnormal [facility] [employer] Performed by: [employer] [facility], [address] [place] [id number] CLIA ID: [id number] [facility] [facility] CT Head WO contraston 2023 1. No significant change. Report Dictated on Electronically Signed By: Tacos Barba MD Electronically Signed Date/Time: 01/01/2024 9:06 PM [facility]T [facility] Patient Name: BRIANNE VALLECILLO : 1955 Exam Date/Time: 01/01/2024 20:41 Procedure: CT HEAD WO IV CONTRAST Ordering Provider: HENNESSY LAURA Reason For Exam: SDH follow up CT BRAIN WITHOUT CONTRAST CLINICAL INDICATION: SDH follow up TECHNIQUE: Noncontrast CT scan of the brain. Multiplanar reformations. Dose reduction was employed with automated exposure control. COMPARISON: 01/01/2024 from [facility] FINDINGS: Right frontal convexity subdural hemorrhage does not appear significantly changed. No significant midline shift. Tiny amount of subdural hemorrhage along the falx also unchanged. Right frontal encephalomalacia similar to previous study. No hydrocephalus. No effacement of the basal cisterns. [facility] Tacos Barba MD - 01/01/2024 Patient Name: BRIANNE WALLS : 1955 Exam Date/Time: 01/01/2024 20:41 Procedure: CT HEAD WO IV CONTRAST Ordering Provider: HENNESSY LAURA Reason For Exam: SDH follow up CT BRAIN WITHOUT CONTRAST CLINICAL INDICATION: SDH follow up TECHNIQUE: Noncontrast CT scan of the brain. Multiplanar reformations. Dose reduction was employed with automated exposure control. COMPARISON: 01/01/2024 from [facility] FINDINGS: Right frontal convexity subdural hemorrhage does not appear significantly changed. No significant midline shift. Tiny amount of subdural hemorrhage along the falx also unchanged. Right frontal encephalomalacia similar to previous study. No hydrocephalus. No effacement of the basal cisterns. IMPRESSION: 1. No significant change. Report Dictated on Electronically Signed By: Tacos Barba MD Electronically Signed Date/Time: 01/01/2024 9:06 PM EDT [facility] Radiology Study observation (narrative) [employer] CT Head WO contrastOrdered B y: Tacos Barba on 01-01-2024 [employer] Work Phone: Laboratory - Chemistry and C hemistry - challengeon 01-01-2024 Glucose [Mass/Vol] 132 mg/dL High 70 - 100 mg/dL [facility] Laboratory - Coagulationon 0 01-01-2024 PT Coag (Bld) [Time] 15.1 s High 9.0 - 1 2.[address] [facility] No Panel Informationon 12-31 Interpretation and review of laboratory results Abnormal [facility] Performed by: [facility], [address] [place] [address] CLIA ID: [id number] [facility] PT Coag (Bld) [Time]on 12-31 INR Coag (PPP) [Relative time] 1.4 {INR} High 0.9 - 1.[address] [facility] Comment on above: Recommended Anticoag ulant Therapy: [...] Interpretation and review of laboratory results Abnormal [facility] Absolute lymphocyte countOrd ered By: Jesús Perez on 09-25-2023 Lymphocytes Auto (Unsp spec) [#/Vol] 0.73 10*3/uL 0.83-4.51 [facility] Activated partial thrombopla stin time (aPTT) in platelet poor plasma by coagulation aOrdered By: Jesús Perez on 09-25-2023 aPTT Coag (PPP) [Time] 32.5 s 24.1-36.2 [facility] Automated lymphocyte count a s percentage of total leukocytesOrdered By: Jesús Perez on 09-25-2023 Lymphocytes/100 WBC Auto (Unsp spec) 9.9 % 19-41 [facility] Basophil percentageOrdered B y: Jesús Perez on 09-25-2023 Basophils/100 WBC (Bld) 0.4 % 0-1 [facility] Chloride [Moles/Vol] 102 mmol/L 98-107 [facility] Eosinophils/100 WBC (Bld) 0.4 % 0-5 [facility] Glucose [Mass/Vol] 121 mg/dL 74-106 [facility] Comment on above: Fasting Glucose resu lt from 100 to 125 mg/dL suggests IMPAIRED HOMEOSTASIS per A.D.A. criteria. Hemoglobin (Bld) [Mass/Vol] 11.2 g/dL 13.0-16.5 [facility] Monocytes/100 WBC (Bld) 13.2 % 0-10 [facility] Neutrophils (Bld) [#/Vol] 5.6 10*3/uL 2.0-7.7 [facility] Neutrophils/100 WBC (Bld) 75.4 % 47-70 [facility] Potassium [Moles/Vol] 4.1 mmol/L 3.5-5.1 [facility] Sodium [Moles/Vol] 134 mmol/L 136-145 [facility] WBC (Bld) [#/Vol] 7.4 10*3/uL 4.4-11.0 [facility] Determination of erythrocyte mean corpuscular volume (MCV)Ordered By: Jesús Perez on 09-25-2023 MCV (RBC) [Entitic vol] 96.4 fL 80-94 [facility] Erythrocyte distribution wid th ratioOrdered By: Jesús Perez on 09-25-2023 Erythrocyte distribution width (RBC) [Ratio] 15.6 % 11.6-14.6 [facility] Erythrocyte distribution wid th standard deviationOrdered By: Jesús Perez on 09-25-2023 Erythrocyte distribution width (RBC) [Entitic vol] 55.5 fL 35.1-43.9 [facility] Hematocrit Auto (Bld) [Volum e fraction]Ordered By: Jesús Perez on 09-25-2023 Hematocrit (Bld) [Volume fraction] 35.1 % 40-54 [facility] Immature granulocytes/100 WB C Auto (Bld)Ordered By: Jesús Perez on 09-25-2023 Immature granulocytes/100 WBC (Bld) 0.700 % 0.0-0.9 [facility] Comment on above: IG% - Immature Granu locytes (promyelocytes, myelocytes and metamyelocytes) > 1% indicates that a LEFT SHIFT is Present. Laboratory - Chemistry and C hemistry - challengeOrdered By: Jesús Perez on 09-25-2023 CO2 [Moles/Vol] 27.0 mmol/L 21.0-32.0 [facility] Magnesium [Mass/Vol] 2.2 mg/dL 1.6-2.6 [facility] Urea nitrogen/Creatinine [Mass ratio] 28.3 mg/mg 10-20 [facility] Laboratory - CoagulationOrde red By: Jesús Perez on 09-25-2023 INR Coag (Bld) [Relative time] 1.2 {INR} [facility] PT Coag (PPP) [Time] 14.9 s 11.7-14.9 [facility] Laboratory - Hematology and Cell countsOrdered By: Jesús Perez on 09-25-2023 MCH (RBC) [Entitic mass] 30.8 pg 27.0-32.0 [facility] MCHC (RBC) [Mass/Vol] 31.9 g/dL 32-36 [facility] Nucleated RBC/100 WBC (Bld) [Ratio] 0 % 0-5 [facility] Platelet mean volume (Bld) [Entitic vol] 13.2 fL 6.2-12.0 [facility] Platelets (Bld) [#/Vol] 109 10*3/uL 150-450 [facility] No Panel InformationOrdered By: Jesús Perez on 09-25-2023 Estimated Creatinine Clearance Calc 65.66 ml/min [facility] Estimated GFR (MDRD) Amer 89 mL/min >60 [facility] Comment on above: GFR Calc Estimated GFR (MDRD) Non-Af Amer 74 mL/min >60 [facility] Comment on above: Non- GFR Calc RBC Auto (Bld) [#/Vol]Ordere d By: Jesús Perez on 09-25-2023 RBC (Bld) [#/Vol] 3.64 10*6/uL 4.6-6.2 [facility] Serum or plasma calcium josephine urement (mass/volume)Ordered By: Jesús Perez on 09-25-2023 Calcium [Mass/Vol] 8.9 mg/dL 8.5-10.1 [facility] Serum or plasma creatinine m easurement (mass/volume)Ordered By: Jesús Perez on 09-25-2023 Creatinine [Mass/Vol] 1.06 mg/dL 0.70-1.30 [facility] Comment on above: The validity of the calculated GFR & GFRAA in patients over 70 years has not been determined. Clinical correlation is essential. Serum or plasma urea nitroge n measurement (mass/volume)Ordered By: Jesús Perez on 09-25-2023 Urea nitrogen [Mass/Vol] 30 mg/dL 7-18 [facility] Thin prep Papanicolaou smear with manual screeningOrdered By: Jesús Perez on 09-25-2023 Thin prep Papanicolaou smear with manual screening 5 5-15 [facility] Laboratory - CoagulationOrde red By: Tacos Gibson on 09-22-2023 INR Coag (Bld) [Relative time] 1.2 {INR} [facility] PT Coag (PPP) [Time] 15.5 s 11.7-14.9 [facility] Basic metabolic 1998 panelon 09-10-2023 Anion gap [Moles/Vol] 6 mmol/L 3 - 13 mmol/L [facility] Calcium [Mass/Vol] 9.2 mg/dL 8.4 - 10. 4 mg/dL [facility] Chloride [Moles/Vol] 95 mmol/L Low 98 - 10 7 mmol/L [facility] CO2 [Moles/Vol] 32 mmol/L High 22 - 30 mmol/L [facility] Creatinine [Mass/Vol] 0.91 mg/dL 0.66 - 1.25 mg/dL [facility] GFR/1.73 sq M.predicted MDRD (S/P/Bld) [Vol rate/Area] - PINF [facility] Comment on above: Calculation based on the Chronic Kidney Disease Epidemiology Collaboration (CKD-EPI) equation refit without adjustment for race Glucose [Mass/Vol] 75 mg/dL 70 - 100 mg/dL [facility] Interpretation and review of laboratory results Abnormal [facility] Potassium [Moles/Vol] 3.6 mmol/L 3.5 - 5.1 mmol/L [facility] Sodium [Moles/Vol] 134 mmol/L Low 135 - 145 mmol/L [facility] Urea nitrogen [Mass/Vol] 34 mg/dL High 9 - 20 mg/dL [facility] [employer] [facility] Heart TransthoracicOrdere d By: Aleta Lopes on 09-10-2023 Aortic Sinus Valsalva 3.8 cm [facility] [employer] Phone: Aortic Sinus Valsalva Index 2.05 cm/m2 [facility] [employer] Phone: Ascending Aorta 3.[address] [facility] [employer] Phone: Ascending Aorta Index 1.89 cm/m2 [facility] [employer] Work Phone: AV Area by Peak Velocity 1.7 cm2 [facility] [employer] Phone: AV Area by VTI 2.1 cm2 [facility] [employer] Phone: AV Mean Gradient [address] [facility] [employer] Phone: AV Mean Velocity 0.7 m/s [facility] [employer] Phone: AV Peak Gradient [address] [facility] [employer] Phone: AV Peak Velocity 1.1 m/s [facility] [employer] Phone: AV Velocity Ratio 0.55 [facility] [employer] Phone: AV VTI 19.0 cm [facility] [employer] Phone: TIARA/BSA Peak Velocity 0.9 cm2/m2 [facility] [employer] Work Phone: TIARA/BSA VTI 1.1 cm2/m2 [facility] [employer] Phone: EF BP 46 % Abnormal 55 - 100 % [facility] Work Phone: Est. RA Pressure 8 mmHg [facility] [employer] Phone: Fractional Shortening 2D 12 % 28 - 44 % [facility] [employer] Phone: Interpretation and review of laboratory results Abnormal [facility] [employer] Phone: IVC Diameter 2.[address] [facility] [employer] Phone: IVSd 2.0 cm Abnormal 0.6 - 1.[address] [facility] [employer] Phone: LA Diameter 4.8 cm [facility] [employer] Phone: LA Size Index 2.59 cm/m2 [facility] Work Phone: LA Volume 2C 55 mL 18 - [address] [facility] Work Phone: LA Volume 4C 46 mL 18 - [address] [facility] Work Phone: LA Volume A/L [address] [facility] Work Phone: LA Volume Index 2C 30 mL/m2 16 - 34 mL/m2 [facility] Work Phone: LA Volume Index 4C 25 mL/m2 16 - 34 mL/m2 [facility] Work Phone: LA Volume Index A/L 30 mL/m2 16 - 34 mL/m2 [facility] [employer] Work Phone: LV E' Lateral Velocity 5 cm/s [facility] Work Phone: LV E' Septal Velocity 4 cm/s [facility] Work Phone: LV EDV A2C [address] [facility] Work Phone: LV EDV A4C [address] [facility] [facility] [employer] Work Phone: LV EDV BP 168 mL Abnormal 67 - [address] [facility] [facility] [employer] Work Phone: LV EDV Index A2C 84 mL/m2 [facility] [employer] Work Phone: LV EDV Index A4C 86 mL/m2 [facility] [employer] Work Phone: LV EDV Index BP 91 mL/m2 [facility] [employer] Work Phone: LV Ejection Fraction A2C 49 % [facility] Work Phone: LV Ejection Fraction A4C 41 % [facility] [employer] Work Phone: LV ESV A2C [address] [facility] Work Phone: LV ESV A4C 94 mL [facility] Work Phone: LV ESV BP 90 mL Abnormal 22 - [address] [facility] Work Phone: LV ESV Index A2C 43 mL/m2 [facility] [employer] Work Phone: LV ESV Index A4C 51 mL/m2 [employer] Work Phone: LV ESV Index BP 49 mL/m2 [employer] Work Phone: LV Mass 2D 321.7 g Abnormal 88 - 224 g [employer] Work Phone: LV Mass 2D Index 173.9 g/m2 Abnormal 49 - 115 g/m2 [employer] Work Phone: LV RWT Ratio 1.33 [employer] Work Phone: LVIDd 3.3 cm Abnormal 4.2 - 5.9 cm [employer] Work Phone: LVIDd Index 1.78 cm/m2 [employer] Work Phone: LVIDs 2.9 cm [employer] Work Phone: LVIDs Index 1.57 cm/m2 [employer] Work Phone: LVOT Area 3.1 cm2 [employer] Work Phone: LVOT Cardiac Output 2.7 liter/mi nu te [employer] Work Phone: LVOT Diameter 2.0 cm [employer] Work Phone: LVOT Mean Gradient 1 mmHg [employer] Work Phone: LVOT Peak Gradient 1 mmHg [employer] Work Phone: LVOT Peak Velocity 0.6 m/s [employer] Work Phone: LVOT Stroke Volume Index 21.4 mL/m2 [employer] Work Phone: LVOT SV 39.6 ml [employer] Work Phone: LVOT VTI 12.6 cm [employer] Work Phone: LVOT:AV VTI Index 0.66 [employer] Work Phone: LVPWd 2.2 cm Abnormal 0.6 - 1.0 cm [employer] Work Phone: MV Area by VTI 1.[address] [facility] Work Phone: MV Max Velocity 2.1 m/s [facility] [employer] Work Phone: MV Mean Gradient 3 mmHg [facility] [employer] Work Phone: MV Mean Velocity 1.0 m/s [facility] [employer] Phone: MV Peak Gradient 17 mmHg [facility] [employer] Phone: MV VTI 41.5 cm [facility] [employer] Work Phone: MV:LVOT VTI Index 3.29 [facility] [employer] Work Phone: PV Max Velocity 0.8 m/s [facility] [employer] Phone: PV Peak Gradient 2 mmHg [facility] [employer] Phone: RA Area 4C 14.2 cm2 [facility] [employer] Phone: RA Volume 39 ml [facility] [employer] Phone: RA Volume Index A4C 21 mL/m2 [facility] [employer] Phone: RV Basal Dimension 5.0 cm [facility] [employer] Work Phone: RV Free Wall Peak S' 6 cm/s [facility] [employer] Work Phone: RV Mid Dimension 4.1 cm [facility] [employer] Phone: RVSP 46 mmHg [facility] [employer] Phone: Sinotubular Junction 3.4 cm [facility] [employer] Work Phone: [phone] TAPSE 0.9 cm Abnormal 1.7 cm [facility] [employer] Work Phone: TR Max Velocity 3.10 m/s [facility] [employer] Work Phone: [facility] [employer] Phone: US Heart Transthoracicon Left Ventricle: Left ventricle size [...] was given to enhance imaging. CV CPACS Laboratory - CoagulationOrde red By: Tacos Gibson on 09-09-2023 INR Coag (Bld) [Relative time] 3.6 {INR} [facility] PT Coag (PPP) [Time] 35.9 s 11.7-14.9 [facility] Basic metabolic 1998 panelon 09-03-2023 Anion gap [Moles/Vol] 7 mmol/L 3 - 13 mmol/L [facility] Calcium [Mass/Vol] 8.7 mg/dL 8.4 - 10. 4 mg/dL [facility] Chloride [Moles/Vol] 98 mmol/L 98 - 10 7 mmol/L [facility] CO2 [Moles/Vol] 30 mmol/L 22 - 30 mmol/L [facility] [employer] Creatinine [Mass/Vol] 0.96 mg/dL 0.66 - 1.25 mg/dL [facility] [employer] GFR/1.73 sq M.predicted MDRD (S/P/Bld) [Vol rate/Area] 86.1 mL/min/{1.73_m2} - PINF [facility] Comment on above: Calculation based on the Chronic Kidney Disease Epidemiology Collaboration (CKD-EPI) equation refit without adjustment for race Glucose [Mass/Vol] 64 mg/dL Low 70 - 100 mg/dL [facility] [employer] Interpretation and review of laboratory results Abnormal [facility] [employer] Potassium [Moles/Vol] 3.4 mmol/L Low 3.5 - 5.1 mmol/L [facility] [employer] Sodium [Moles/Vol] 135 mmol/L 135 - 145 mmol/L [facility] [employer] Urea nitrogen [Mass/Vol] 30 mg/dL High 9 - 20 mg/dL [facility] CBC W Auto Differential pane l (Bld)Ordered By: Kathy Amaral on 09-03-2023 Basophils (Bld) [#/Vol] 0.0 10*3/uL 0.0 - 0.2 10*3/uL [facility] [employer] Basophils/100 WBC (Bld) 0.2 % 0.0 - 2.0 % [facility] [employer] Eosinophils (Bld) [#/Vol] 0.2 10*3/uL 0.0 - 0.5 10*3/uL [facility] [employer] Eosinophils/100 WBC (Bld) 1.9 % 0.0 - 6.0 % [facility] [employer] Erythrocyte distribution width (RBC) [Ratio] 17.9 % High 11.5 - 15.0 % [facility] [employer] Hematocrit (Bld) [Volume fraction] 36.9 % Low 40.0 - 52.0 % [facility] [employer] Hemoglobin (Bld) [Mass/Vol] 11.9 g/dL Low 13.0 - 18.0 g/dL [facility] [employer] Immature granulocytes (Bld) [#/Vol] 0.1 10*3/uL High NINF - 0.1 10*3/uL [facility] [employer] Immature granulocytes/100 WBC (Bld) 0.9 % 0.0 - 2.0 % [facility] Interpretation and review of laboratory results Abnormal [facility] [employer] IPF 7 [facility] [employer] Lymphocytes (Bld) [#/Vol] 1.0 10*3/uL 1.0 - 4.3 10*3/uL [facility] Lymphocytes/100 WBC (Bld) 10.4 % Low 15.0 - 45.0 % [facility] MCH (RBC) [Entitic mass] 31.5 pg 26.0 - 34.[address] [facility] MCHC (RBC) [Mass/Vol] 32.2 % 30.5 - 36.0 % [facility] MCV (RBC) [Entitic vol] 97.6 fL 77.0 - 99.[address] [facility] Monocytes (Bld) [#/Vol] 1.2 10*3/uL High 0.0 - 0.9 10*3/uL [facility] Monocytes/100 WBC (Bld) 13.2 % High 5.0 - 13.0 % [facility] Neutrophils (Bld) [#/Vol] 6.9 10*3/uL 1.8 - 7.5 10*3/uL [facility] Neutrophils/100 WBC (Bld) 73.4 % 38.0 - 82.0 % [facility] Nucleated RBC/100 WBC (Bld) [Ratio] 0.0 % [facility] Platelet mean volume (Bld) [Entitic vol] [facility] Comment on above: Unable to calculate result. Platelets (Bld) [#/Vol] 75 10*3/uL Low 140 - 440 10*3/uL [facility] RBC (Bld) [#/Vol] 3.78 10*6/uL Low 4.40 - 5.90 10*6/uL [facility] WBC (Bld) [#/Vol] 9.4 10*3/uL 3.6 - 10.7 10*3/uL [facility] Natriuretic peptide B [Mass/ Vol]on 09-03-2023 Interpretation and review of laboratory results Abnormal [facility] Natriuretic peptide B (Bld) [Mass/Vol] 9550 pg/mL High <20 - 300 [facility] TSHon 09-03-2023 TSH Qn 2.416 m[IU]/L [facility] TSH Qnon 09-03-2023 Interpretation and review of laboratory results Normal [facility] Absolute lymphocyte countOrd ered By: Fracisco Carvalho on 08-27-2023 Lymphocytes Auto (Unsp spec) [#/Vol] 0.85 10*3/uL 0.83-4.51 [facility] Automated lymphocyte count a s percentage of total leukocytesOrdered By: Fracisco Carvalho on 08-27-2023 Lymphocytes/100 WBC Auto (Unsp spec) 10.9 % 19-41 [facility] Basophil percentageOrdered B y: Fracisco Carvalho on 08-27-2023 Basophils/100 WBC (Bld) 0.4 % 0-1 [facility] Bilirubin [Mass/Vol] 1.20 mg/dL 0.20-1.00 [facility] Comment on above: For patients on eltr ombopag therapy, use of Dimension [place] TBIL is not recommended. Chloride [Moles/Vol] 102 mmol/L 98-107 [facility] Eosinophils/100 WBC (Bld) 3.2 % 0-5 [facility] Glucose [Mass/Vol] 97 mg/dL 74-106 [facility] Hemoglobin (Bld) [Mass/Vol] 11.6 g/dL 13.0-16.5 [facility] Monocytes/100 WBC (Bld) 14.0 % 0-10 [facility] Neutrophils (Bld) [#/Vol] 5.4 10*3/uL 2.0-7.7 [facility] Neutrophils/100 WBC (Bld) 69.2 % 47-70 [facility] Potassium [Moles/Vol] 4.2 mmol/L 3.5-5.1 [facility] Protein [Mass/Vol] 7.2 g/dL 6.4-8.2 [facility] Sodium [Moles/Vol] 135 mmol/L 136-145 [facility] WBC (Bld) [#/Vol] 7.8 10*3/uL 4.4-11.0 [facility] Blood manual differential co mment interpretation (narrative result)Ordered By: Fracisco Carvalho on 08-27-2023 Manual differential comment Norbert (Bld) [Interp] SCANNED [facility] Blood platelet adequacy dete ction by light microscopyOrdered By: Fracisco Carvalho on 08-27-2023 Platelets LM Ql (Bld) MOD DEC ADEQ [facility] Determination of erythrocyte mean corpuscular volume (MCV)Ordered By: Fracisco Carvalho on 08-27-2023 MCV (RBC) [Entitic vol] 98.9 fL 80-94 [facility] Erythrocyte distribution wid th ratioOrdered By: Fracisco Carvalho on 08-27-2023 Erythrocyte distribution width (RBC) [Ratio] 18.8 % 11.6-14.6 [facility] Erythrocyte distribution wid th standard deviationOrdered By: Fracisco Carvalho on 08-27-2023 Erythrocyte distribution width (RBC) [Entitic vol] 68.2 fL 35.1-43.9 [facility] Hematocrit Auto (Bld) [Volum e fraction]Ordered By: [facility] on 08-27-2023 Hematocrit (Bld) [Volume fraction] 37.1 % 40-54 [facility] [facility] [place] Immature granulocytes/100 WB C Auto (Bld)[facility]: [facility] Immature granulocytes/100 WBC (Bld) 2.300 % 0.0-0.9 [facility] [place] Comment on above: IG% - Immature Granu locytes (promyelocytes, myelocytes and metamyelocytes) > 1% indicates that a LEFT SHIFT is Present. Laboratory - Chemistry and C hemistry - challengeOrdered By: [facility] on 08-27-2023 Albumin/Globulin [Mass ratio] 1.0 {ratio} 0.9-2.4 [facility] [place] ALP [Catalytic activity/Vol] 141 U/L 45-117 [facility] [place] ALT [Catalytic activity/Vol] 47 U/L 16-61 [facility] [place] CO2 [Moles/Vol] 29.0 mmol/L 21.0-32.0 [facility] [place] Globulin (S) [Mass/Vol] 3.6 g/dL 2.2-4.2 [facility] Urea nitrogen/Creatinine [Mass ratio] 37.3 mg/mg 10-20 [facility] [place] Laboratory - Hematology and Cell countsOrdered By: Fracisco Carvalho 08-27-2023 MCH (RBC) [Entitic mass] 30.9 pg 27.0-32.0 [facility] [place] MCHC (RBC) [Mass/Vol] 31.3 g/dL 32-36 [facility] Nucleated RBC/100 WBC (Bld) [Ratio] 0 % 0-5 [facility] Platelets (Bld) [#/Vol] 67 10*3/uL 150-450 [facility] No Panel InformationOrdered By: Fracisco Carvalho on 08-27-2023 Estimated GFR (MDRD) Amer 93 mL/min >60 [facility] [place] Comment on above: GFR Calc Estimated GFR (MDRD) Non-Af Amer 77 mL/min >60 [facility] [place] Comment on above: Non- GFR Calc Vitamin D 25-Hydroxy 93.6 ng/mL [facility] Comment on above: Vitamin D 25(OH) Sta tus Range Deficiency <20 ng/mL (50nmol/L) Insufficiency 20 - 30 ng/mL (50 - 75 nmol/L) Sufficiency 30 - 100 ng/mL (75 - 250 nmol/L) Toxicity >100 ng/mL (>250 nmol/L) RBC Auto (Bld) [#/Vol]Ordere d By: Fracisco Carvalho on 08-27-2023 RBC (Bld) [#/Vol] 3.75 10*6/uL 4.6-6.2 [facility] Serum or plasma calcium josephine urement (mass/volume)Ordered By: Fracisco Carvalho on 08-27-2023 Calcium [Mass/Vol] 9.0 mg/dL 8.5-10.1 [facility] Serum or plasma creatinine m easurement (mass/volume)Ordered By: Fracisco Carvalho on 08-27-2023 Creatinine [Mass/Vol] 1.02 mg/dL 0.70-1.30 [facility] Comment on above: The validity of the calculated GFR & GFRAA in patients over 70 years has not been determined. Clinical correlation is essential. Serum or plasma thyroid stim ulating hormone (TSH) measurement (units/volume)Ordered By: Fracisco Carvalho on 08-27-2023 TSH Qn 9.07 uIU/mL 0.358-3.74 [facility] [place] Serum or plasma urea nitroge n measurement (mass/volume)Ordered By: Fracisco Carvalho on 08-27-2023 Urea nitrogen [Mass/Vol] 38 mg/dL 7-18 [facility] [place] Thin prep Papanicolaou smear with manual screeningOrdered By: Fracisco Carvalho 08-27-2023 Thin prep Papanicolaou smear with manual screening 3.6 g/dL 3.2-5.0 [facility] [place] Thin prep Papanicolaou smear with manual screening 53 U/L 15-37 [facility] [place] Thin prep Papanicolaou smear with manual screening 4 5-15 [facility] [place] Final Surgical Pathology Rep lin 08-26-2023 Final Surgical Pathology Report . Pathology Reports Accession: Collected Date/Time: Received Date/Time: Pathologist: [id number] 08/24/2023 08:39 EDT 08/25/2023 08:12 EDT JONE GONZALEZ MD Final Surgical Pathology Report DIAGNOSIS: A. DUODENUM, BIOPSY: - DUODENAL MUCOSA WITHOUT SIGNIFICANT MICROSCOPIC PATHOLOGY B. GASTRIC ANTRUM, BIOPSY: - MILD CHRONIC GASTRITIS. NO ACTIVE GASTRITIS OR HELICOBACTER CLINICAL INFORMATION: PROCEDURE: ESOPHAGOGASTRODUODENOSCOPY WITH BIOPSIES PREOPERATIVE DIAGNOSIS: POSITIVE CELIAC TITER POSTOPERATIVE DIAGNOSIS: POSITIVE CELIAC TITER SPECIMEN: A DUODENUM, BIOPSY B GASTRIC ANTRUM BIOPSY GROSS DESCRIPTION: All parts labelled with patient name and [id number] A. Received in formalin labeled duodenal biopsy are 4 nelson tissue fragments measuring 0.1 to 0.2 cm. TS-1 B. Received in formalin labeled gastric antrum biopsy are 5 nelson tissue fragments measuring 0.1 to 0.3 x 0.2 cm. TS-1 Kiesha Culp, [employer] Instrument Mechanic/ Dr. Jone Gonzalez, Pathologist Dictated by Kiesha Culp MICROSCOPIC DESCRIPTION: The microscopic examination is performed, except in the case of Gross Only. Electronically Signed by Pathology Report verified by [facility] JONE GONZALEZ Sign out Date: 08/26/2023 14:51 Performing Lab: [facility], [address] [place] [address] Pathology Dept Disclaimer If ancillary studies were utilized, the following Laboratory Developed Test (LDT) disclaimer will apply: Under CLIA requirements, [facility] is qualified to perform high complexity testing. For all ancillary stains, positive and negative controls stain appropriately. Performance characteristics of immunohistochemical and chromogenic in-situ hybridization tests have been determined by [facility]. These tests are used for clinical purposes, They should not be regarded as investigational or for research. Normal [facility] ([place]) Laboratory - Drug toxicology Ordered By: Mariajose Sanchez on 08-25-2023 Amphetamines Ql (U) Negative <1000 ng/mL [facility] [place] Benzodiazepines Ql (U) Negative < 200 ng/mL [facility] [place] Cannabinoids Screen Ql (U) Negative < 50 ng/mL [facility] [place] Cocaine Ql (U) Negative < 300 ng/mL [facility] [place] Opiates Ql (U) Positive < 300 ng/mL [facility] [place] No Panel InformationOrdered By: Mariajose De La Pazelva on 08-25-2023 MDMA (Ecstasy) Screen Positive < 500 ng/mL [facility] [place] Miscellaneous Test See comment [facility] Comment on above: [id number] 6+OXYCODONE-B UND (ng/mL) DRUG RESULT SCREEN CUTOFF____ Amphetamines,Urine Negative ng/mL 1000 Amphetamine test includes Amphetamine and Methamphetamine.Barbiturates Negative ng/mL 200Benzodiazepines Negative ng/mL 200Cannabinoid Negative ng/mL 20Cocaine (Metab) Negative ng/mL 300Opiates Negative ng/mL 300 Opiates test includes Codeine, Morphine, Hydromorphone, Hydrocodone. Oxycodone/Oxymorphone,Urine Negative ng/mL 300 Test includes Oxycodone and Oxymorphone. TESTING PERFORMED AT [facility]. ORIGINAL REPORT ON FILE IN LAB CONTAINS ADDITIONAL TEST SITE INFORMATION. Urine Barbiturates Screen Negative < 200 ng/mL [facility] [place] Urine Drug Screen Comment [facility] [place] Comment on above: CONFIRMATORY TESTING FOR ALL POSITIVE URINE DRUG SCREENRESULTS WILL ONLY BE SENT OUT UPON PHYSICIAN ORDER. VISTA Urine Drug Screen methods provide only preliminaryanalytical test results. A more specific alternate chemicalmethod must be used in order to obtain a confirmedanalytical result. Gas chromatography/mass spectrometery(GC/MS) is the preferred confirmatory method. Clinicalconsideration and professional judgement should be appliedto any drug of abuse test result, particularly whenpreliminary positive results are used. URINE TCA TESTING MUST BE ORDERED SEPARATELY. USE TESTMNEMONIC: [facility] Urine Methadone Screen Negative < 300 ng/mL [facility] [place] Urine phencyclidine (PCP) de tectionOrdered By: Mariajose Sanchez on 08-25-2023 Phencyclidine Ql (U) Negative < 25 ng/mL [facility] Laboratory - CoagulationOrde red By: Tacos Gibson on 08-05-2023 INR Coag (Bld) [Relative time] 1.3 {INR} [facility] [place] PT Coag (PPP) [Time] 16.1 s 11.7-14.9 [facility] Basic metabolic 1998 panelon 07-30-2023 Anion gap [Moles/Vol] 7 mmol/L 3 - 13 mmol/L [facility] Calcium [Mass/Vol] 8.4 mg/dL 8.4 - 10. 4 mg/dL [facility] Chloride [Moles/Vol] 104 mmol/L 98 - 10 7 mmol/L [facility] CO2 [Moles/Vol] 24 mmol/L 22 - 30 mmol/L [facility] Creatinine [Mass/Vol] 0.90 mg/dL 0.66 - 1.25 mg/dL [facility] GFR/1.73 sq M.predicted MDRD (S/P/Bld) [Vol rate/Area] - PINF [facility] Comment on above: Calculation based on the Chronic Kidney Disease Epidemiology Collaboration (CKD-EPI) equation refit without adjustment for race Glucose [Mass/Vol] 141 mg/dL High 70 - 100 mg/dL [facility] Interpretation and review of laboratory results Abnormal [facility] Potassium [Moles/Vol] 4.5 mmol/L 3.5 - 5.1 mmol/L [facility] Sodium [Moles/Vol] 135 mmol/L 135 - 145 mmol/L [facility] Urea nitrogen [Mass/Vol] 29 mg/dL High 9 - 20 mg/dL [facility] CBC panel Auto (Bld)on 07-29 Erythrocyte distribution width (RBC) [Ratio] 17.4 % High 11.5 - 15.0 % [facility] Hematocrit (Bld) [Volume fraction] 30.3 % Low 40.0 - 52.0 % [facility] Hemoglobin (Bld) [Mass/Vol] 10.0 g/dL Low 13.0 - 18.0 g/dL [facility] Interpretation and review of laboratory results Abnormal [facility] IPF [address] [facility] MCH (RBC) [Entitic mass] 30.5 pg 26.0 - 34.[address] [facility] MCHC (RBC) [Mass/Vol] 33.0 % 30.5 - 36.0 % [facility] MCV (RBC) [Entitic vol] 92.4 fL 77.0 - 99.[address] [facility] Platelets (Bld) [#/Vol] 105 10*3/uL Low 140 - 440 10*3/uL [facility] RBC (Bld) [#/Vol] 3.28 10*6/uL Low 4.40 - 5.90 10*6/uL [facility] WBC (Bld) [#/Vol] 6.6 10*3/uL 3.6 - 10.7 10*3/uL [facility] Laboratory - Coagulationon 0 07-30-2023 PT Coag (Bld) [Time] 12.4 s High 9.0 - 1 2.[address] [facility] PT Coag (Bld) [Time]on 07-29 INR Coag (PPP) [Relative time] 1.2 {INR} High 0.9 - 1.[address] [facility] Comment on above: Recommended Anticoag ulant Therapy: [...] Interpretation and review of laboratory results Abnormal [facility] Basic metabolic 1998 panelon 07-29-2023 Anion gap [Moles/Vol] 6 mmol/L 3 - 13 mmol/L [facility] Calcium [Mass/Vol] 8.1 mg/dL Low 8.4 - 10. 4 mg/dL [facility] Chloride [Moles/Vol] 106 mmol/L 98 - 10 7 mmol/L [facility] CO2 [Moles/Vol] 22 mmol/L 22 - 30 mmol/L [facility] Creatinine [Mass/Vol] 0.81 mg/dL 0.66 - 1.25 mg/dL [facility] GFR/1.73 sq M.predicted MDRD (S/P/Bld) [Vol rate/Area] - PINF [facility] Comment on above: Calculation based on the Chronic Kidney Disease Epidemiology Collaboration (CKD-EPI) equation refit without adjustment for race Glucose [Mass/Vol] 117 mg/dL High 70 - 100 mg/dL [facility] Interpretation and review of laboratory results Abnormal [facility] Potassium [Moles/Vol] 4.2 mmol/L 3.5 - 5.1 mmol/L [facility] Sodium [Moles/Vol] 134 mmol/L Low 135 - 145 mmol/L [facility] Urea nitrogen [Mass/Vol] 23 mg/dL High 9 - 20 mg/dL [facility] CBC panel Auto (Bld)on 07-28 Erythrocyte distribution width (RBC) [Ratio] 17.2 % High 11.5 - 15.0 % [facility] Hematocrit (Bld) [Volume fraction] 30.8 % Low 40.0 - 52.0 % [facility] Hemoglobin (Bld) [Mass/Vol] 10.2 g/dL Low 13.0 - 18.0 g/dL [facility] Interpretation and review of laboratory results Abnormal [facility] IPF [address] [facility] MCH (RBC) [Entitic mass] 30.4 pg 26.0 - 34.[address] [facility] MCHC (RBC) [Mass/Vol] 33.1 % 30.5 - 36.0 % [facility] MCV (RBC) [Entitic vol] 91.9 fL 77.0 - 99.[address] [facility] Platelet mean volume (Bld) [Entitic vol] 12.5 fL 9.0 - 12.[address] [facility] Platelets (Bld) [#/Vol] 93 10*3/uL Low 140 - 440 10*3/uL [facility] RBC (Bld) [#/Vol] 3.35 10*6/uL Low 4.40 - 5.90 10*6/uL [facility] WBC (Bld) [#/Vol] 6.2 10*3/uL 3.6 - 10.7 10*3/uL [facility] Laboratory - Coagulationon 0 07-29-2023 PT Coag (Bld) [Time] 12.4 s High 9.0 - 1 2.[address] [facility] No Panel Informationon 07-28 Aortic Sinus Valsalva 3.4 cm [facility] Aortic Sinus Valsalva Index 1.87 cm/m2 [facility] Ascending Aorta 3.[address] [facility] Ascending Aorta Index 1.81 cm/m2 [facility] Sinotubular Junction 2.9 cm [facility] Addendum by Aleta Lopes MD on 07/30/2023 [...] was sinus rhythm. Cardiac history: prosthetic valve. MING probe number: 1. MING probe was inserted by the integrity manager with minimal difficulty. No topical anesthesic. No complications. MING probe was removed. No contrast was given. See anesthesia notes for medications given. Structural Heart Pre Procedure Findings MV bioprosthesis with paravalvular leak (measured by MING at 0.7 x 0.6 cm) and secondary severe 4+ paravalvular regurgitation. [facility] PT Coag (Bld) [Time]on 07-28 INR Coag (PPP) [Relative time] 1.2 {INR} High 0.9 - 1.[address] [facility] Comment on above: Recommended Anticoag ulant Therapy: [...] Interpretation and review of laboratory results Abnormal [facility] US Heart Transthoracicon Ao Root Index 2.03 cm/m2 [facility] Aortic Root 3.[address] [facility] Ascending Aorta 3.[address] [facility] Ascending Aorta Index 1.81 cm/m2 [facility] AV Area by Peak Velocity 2.[address] [facility] AV Area by VTI 2.[address] [facility] AV AT 79.92 ms [facility] [employer] AV Mean Gradient 4 mmHg [facility] AV Mean Velocity 0.9 m/s [facility] AV Peak Gradient 7 mmHg [facility] AV Peak Velocity 1.4 m/s [facility] AV Velocity Ratio 0.57 [facility] AV VTI 32.6 cm [facility] TIARA/BSA Peak Velocity 1.3 cm2/m2 [facility] TIARA/BSA VTI 1.4 cm2/m2 [facility] EF BP 44 % Abnormal 55 - 100 % [facility] Est. RA Pressure 8 mmHg [facility] Fractional Shortening 2D 27 % 28 - 44 % [facility] Interpretation and review of laboratory results Abnormal [facility] [employer] IVC Diameter 1.7 cm [facility] IVSd 1.7 cm Abnormal 0.6 - 1.0 cm [facility] LA Diameter 4.2 cm [facility] LA Size Index 2.31 cm/m2 [facility] LA Volume 2C 40 mL 18 - 58 mL [facility] Volume 4C 59 mL Abnormal 18 - 58 mL [facility] Volume A/L 58 mL [facility] LA Volume BP 50 mL 18 - 58 mL [facility] LA Volume Index 2C 22 mL/m2 16 - 34 mL/m2 [facility] Volume Index 4C 32 mL/m2 16 - 34 mL/m2 [facility] Volume Index A/L 32 mL/m2 16 - 34 mL/m2 [facility] LA Volume Index BP 27 ml/m2 16 - 34 ml/m2 [facility] LA/AO Root Ratio 1.14 [facility] [employer] LV EDV A2C 131 mL [facility] LV EDV A4C 128 mL [facility] LV EDV BP 130 mL 67 - 155 mL [facility] LV EDV Index A2C 72 mL/m2 [facility] LV EDV Index A4C 70 mL/m2 [facility] LV EDV Index BP 71 mL/m2 [facility] LV Ejection Fraction A2C 39 % [facility] [employer] LV Ejection Fraction A4C 70 % [facility] [employer] LV ESV A2C 80 mL [facility] LV ESV A4C 38 mL [facility] [employer] LV ESV BP 73 mL Abnormal 22 - 58 mL [facility] [employer] LV ESV Index A2C 44 mL/m2 [facility] LV ESV Index A4C 21 mL/m2 [facility] LV ESV Index BP 40 mL/m2 [facility] LV Mass 2D 312.9 g Abnormal 88 - [address] [facility] LV Mass 2D Index 171.9 g/m2 Abnormal 49 - 115 g/m2 [facility] LV RWT Ratio 0.[address] [facility] LVIDd 4.9 cm 4.2 - 5.[address] [facility] LVIDd Index 2.69 cm/m2 [facility] LVIDs 3.[address] [facility] LVIDs Index 1.98 cm/m2 [facility] LVOT Area 4.[address] [facility] LVOT Cardiac Output 5.8 liter/mi nu te [facility] LVOT Diameter 2.[address] [facility] LVOT Mean Gradient [address] [facility] LVOT Peak Gradient [address] [facility] LVOT Peak Velocity 0.8 m/s [facility] LVOT Stroke Volume Index 44.3 mL/m2 [facility] LVOT SV 80.[address] [facility] LVOT VTI 19.[address] [facility] LVOT:AV VTI Index 0.[address] [facility] LVPWd 1.3 cm Abnormal 0.6 - 1.[address] [facility] MV Area by VTI 1.[address] [facility] MV Max Velocity 2.1 m/s [facility] MV Mean Gradient [address] [facility] MV Mean Velocity 1.2 m/s [facility] MV Peak Gradient [address] [facility] MV VTI 51.[address] [facility] MV:LVOT VTI Index 2.[address] [facility] RA Area 4C 48.[address] [facility] RA Area 4C 49.[address] [facility] RV Basal Dimension [address] [facility] RV Free Wall Peak S' 5 cm/s [facility] RV Mid Dimension 1.[address] [facility] RVSP [address] [facility] TAPSE 0.8 cm Abnormal 1.[address] [facility] TR Max Velocity 3.34 m/s [facility] TR Peak Gradient [address] [facility] Left Ventricle: Left ventricle size is normal. [...] ventricular wall motion is normal. CV CPACS [facility] [employer] No Panel Informationon 07-27 Crossmatch interpretation COMP [facility] [employer] Dispense Status Crossmatch [facility] Product Blood Type 5100 [facility] PRODUCT CODE [id number] [facility] Unit ABO O [facility] Unit RH Positive [facility] Unit Volume [address] [facility] Prepare RBCon 07-28-2023 Blood Expiration Date [id number] S [facility] Blood Expiration Date [id number] S [facility] Unit Number [id number] [facility] Unit Number [id number] [facility] No Panel InformationOrdered By: Tacos Gibson on 07-22-2023 Tissue Transglutaminase IgG Ab 6 U/mL 0-5 [facility] Comment on above: Negative 0 - 5 Weak Positive 6 - 9 Positive >9 Serum or plasma IgA measurem ent (mass/volume)Ordered By: Tacos Gibson on 07-22-2023 IgA [Mass/Vol] mg/dL 61-437 [facility] [place] Comment on above: Result confirmed on concentration.Performed at: [facility] [address] [id number] Director: Kel Young PhD, Phone: [phone] Serum or plasma IgG measurem ent (mass/volume)Ordered By: Tacos Gibson on 07-22-2023 IgG [Mass/Vol] 1884 mg/dL [phone] [facility] XR Chest 2 Viewson 4 Pleural thickening a nd scarring in the right lower hemithorax. No consolidation or significant pleural fluid collection. Report Dictated on Electronically Signed By: Zac Allen MD Electronically Signed Date/Time: 07/17/2023 8:47 AM EST [facility] [employer] Patient Name: BRIANNE VALLECILLO : 1955 [...] deformity of an L1, unchanged from 2015. [facility] Zac Allen MD - 07/17/2023 Patient Name: [...] Electronically Signed Date/Time: 07/17/2023 8:47 AM EST [employer] XR Chest 2 ViewsOrdered By: Zac Allen on 07-17-2023 [facility] [employer] Work Phone: A variant subtype Ab Qlon [facility] [employer] Antibody identificationon A variant subtype Ab Ql E S [facility] Blood type and Crossmatch pa karen (Bld)on 07-16-2023 ABO group Nom (Bld) B [facility] [employer] Blood group antibody screen GEL Ql Positive [facility] [employer] D Ag Ql (RBC) Positive [facility] [employer] CBC W Auto Differential pane l (Bld)Ordered By: Manjeet Swab on 07-16-2023 Basophils (Bld) [#/Vol] 0.0 10*3/uL 0.0 - 0.2 10*3/uL [employer] Basophils/100 WBC (Bld) 0.7 % 0.0 - 2.0 % [facility] Eosinophils (Bld) [#/Vol] 0.3 10*3/uL 0.0 - 0.5 10*3/uL [facility] [employer] Eosinophils/100 WBC (Bld) 4.1 % 0.0 - 6.0 % [facility] [employer] Erythrocyte distribution width (RBC) [Ratio] 17.1 % High 11.5 - 15.0 % [employer] Hematocrit (Bld) [Volume fraction] 33.7 % Low 40.0 - 52.0 % [facility] Hemoglobin (Bld) [Mass/Vol] 10.8 g/dL Low 13.0 - 18.0 g/dL [facility] Immature granulocytes (Bld) [#/Vol] 0.0 10*3/uL NINF - 0.1 10*3/uL [facility] Immature granulocytes/100 WBC (Bld) 0.7 % 0.0 - 2.0 % [facility] Interpretation and review of laboratory results Abnormal [facility] IPF [address] [facility] [facility] Lymphocytes (Bld) [#/Vol] 0.9 10*3/uL Low 1.0 - 4.3 10*3/uL [facility] Lymphocytes/100 WBC (Bld) 14.3 % Low 15.0 - 45.0 % [facility] MCH (RBC) [Entitic mass] 29.8 pg 26.0 - 34.[address] [facility] MCHC (RBC) [Mass/Vol] 32.0 % 30.5 - 36.0 % [facility] MCV (RBC) [Entitic vol] 92.8 fL 77.0 - 99.[address] [facility] Monocytes (Bld) [#/Vol] 0.9 10*3/uL 0.0 - 0.9 10*3/uL [facility] Monocytes/100 WBC (Bld) 14.5 % High 5.0 - 13.0 % [facility] Neutrophils (Bld) [#/Vol] 4.1 10*3/uL 1.8 - 7.5 10*3/uL [facility] Neutrophils/100 WBC (Bld) 65.7 % 38.0 - 82.0 % [facility] Nucleated RBC/100 WBC (Bld) [Ratio] 0.0 % [facility] Platelet mean volume (Bld) [Entitic vol] [facility] Comment on above: UNABLE TO RESULT MPV . Platelets (Bld) [#/Vol] 122 10*3/uL Low 140 - 440 10*3/uL [facility] RBC (Bld) [#/Vol] 3.63 10*6/uL Low 4.40 - 5.90 10*6/uL [facility] WBC (Bld) [#/Vol] 6.2 10*3/uL 3.6 - 10.7 10*3/uL [facility] Comprehensive metabolic 1998 panelon 07-16-2023 Albumin [Mass/Vol] 4.0 g/dL 3.5 - 5.0 g/dL [facility] ALP [Catalytic activity/Vol] 136 U/L High 38 - 126 U/L [facility] ALT [Catalytic activity/Vol] 37 U/L 0 - 49 U/L [facility] Anion gap [Moles/Vol] 9 mmol/L 3 - 13 mmol/L [facility] AST [Catalytic activity/Vol] 62 U/L High 15 - 46 U/L [facility] Bilirubin [Mass/Vol] 1.1 mg/dL 0.2 - 1 .3 mg/dL [facility] Calcium [Mass/Vol] 8.9 mg/dL 8.4 - 10. 4 mg/dL [facility] Chloride [Moles/Vol] 100 mmol/L 98 - 10 7 mmol/L [facility] CO2 [Moles/Vol] 29 mmol/L 22 - 30 mmol/L [facility] Creatinine [Mass/Vol] 1.06 mg/dL 0.66 - 1.25 mg/dL [facility] GFR/1.73 sq M.predicted MDRD (S/P/Bld) [Vol rate/Area] 76.4 mL/min/{1.73_m2} - PINF [facility] Comment on above: Calculation based on the Chronic Kidney Disease Epidemiology Collaboration (CKD-EPI) equation refit without adjustment for race Glucose [Mass/Vol] 71 mg/dL 70 - 100 mg/dL [facility] Interpretation and review of laboratory results Abnormal [facility] Potassium [Moles/Vol] 4.0 mmol/L 3.5 - 5.1 mmol/L [facility] Protein [Mass/Vol] 7.4 g/dL 6.3 - 8.2 g/dL [facility] Sodium [Moles/Vol] 138 mmol/L 135 - 145 mmol/L [facility] Urea nitrogen [Mass/Vol] 27 mg/dL High 9 - 20 mg/dL [facility] E Antigenon 07-16-2023 E Ag Ql (RBC) Negative [facility] Little C Antigenon little c Ag Ql (RBC) Positive [facility] Natriuretic peptide B [Mass/ Vol]on 07-16-2023 Interpretation and review of laboratory results Abnormal [facility] Natriuretic peptide B (Bld) [Mass/Vol] 5270 pg/mL High <20 - 300 [facility] No Panel Informationon [facility] XR Chest 2 Viewson Radiology Study observation (narrative) [facility] Basophil percentageOrdered B y: Tacos Gibson on 06-18-2023 Hemoglobin (Bld) [Mass/Vol] 11.2 g/dL 13.0-16.5 [facility] WBC (Bld) [#/Vol] 7.7 10*3/uL 4.4-11.0 [facility] Determination of erythrocyte mean corpuscular volume (MCV)Ordered By: Tacos Gibson on 06-18-2023 MCV (RBC) [Entitic vol] 92.2 fL 80-94 [facility] Erythrocyte distribution wid th ratioOrdered By: Tacos Gibson on 06-18-2023 Erythrocyte distribution width (RBC) [Ratio] 17.2 % 11.6-14.6 [facility] Erythrocyte distribution wid th standard deviationOrdered By: Tacos Gibson on 06-18-2023 Erythrocyte distribution width (RBC) [Entitic vol] 57.1 fL 35.1-43.9 [facility] Hematocrit Auto (Bld) [Volum e fraction]Ordered By: Tacos Gibson on 06-18-2023 Hematocrit (Bld) [Volume fraction] 35.5 % 40-54 [facility] Iron measurement (mass/mass) Ordered By: Tacos Gibson on 06-18-2023 Iron (Unsp spec) [Mass/Mass] 58 ug/dL 65-175 [facility] Laboratory - Chemistry and C hemistry - challengeOrdered By: Tacos Gibson on 06-18-2023 Ferritin [Mass/Vol] 151 ng/mL 26-388 [facility] Laboratory - CoagulationOrde red By: Tacos Gibson on 06-18-2023 PT Coag (PPP) [Time] 23.3 s 11.7-14.9 [facility] Laboratory - Hematology and Cell countsOrdered By: Tacos Gibson on 06-18-2023 MCH (RBC) [Entitic mass] 29.1 pg 27.0-32.0 [facility] MCHC (RBC) [Mass/Vol] 31.5 g/dL 32-36 [facility] Platelets (Bld) [#/Vol] 198 10*3/uL 150-450 [facility] No Panel InformationOrdered By: Tacos Gibson on 06-18-2023 Endomysial IgA Antibody Negative Negative [facility] Total Iron Binding Capacity 339 ug/dL 250-450 [facility] Platelet mean volume Chemo-Ec ker (Bld) [Entitic vol]Ordered By: Tacos Gibson on 06-18-2023 Platelet mean volume (Bld) [Entitic vol] 11.0 fL 6.2-12.0 [facility] Platelet poor plasma interna tional normalized ratio (INR)Ordered By: Tacos Gibson on 06-18-2023 INR Coag (PPP) [Relative time] 2.1 {INR} [facility] RBC Auto (Bld) [#/Vol]Ordere d By: Tacos Gibson on 06-18-2023 RBC (Bld) [#/Vol] 3.85 10*6/uL 4.6-6.2 [facility] Serum IgA measurement (units /volume)Ordered By: Tacos Gibson on 06-18-2023 IgA Qn (S) < 5 mg/dL 61-437 [facility] Comment on above: Result confirmed on concentration. Serum or plasma iron saturat ion measurement (mass fraction)Ordered By: Tacos Gibson on 06-18-2023 Iron saturation [Mass fraction] 17.1 % 15.0-55.0 [facility] Serum tissue transglutaminas e IgA antibody assay (units/volume)Ordered By: Tacos Gibson on 06-18-2023 tTG IgA Qn (S) <2 U/mL 0-3 [facility] Comment on above: Negative 0 - 3 Weak Positive 4 - 10 Positive >10 Tissue Transglutaminase (tTG) has been identified as the endomysial antigen. Studies have demonstr- ated that endomysial IgA antibodies have over 99% specificity for gluten sensitive enteropathy. Basophil percentageOrdered B y: Tacos Gibson on 06-12-2023 Chloride [Moles/Vol] 102 mmol/L 98-107 [facility] Glucose [Mass/Vol] 112 mg/dL 74-106 [facility] Comment on above: Fasting Glucose resu lt from 100 to 125 mg/dL suggests IMPAIRED HOMEOSTASIS per A.D.A. criteria. Potassium [Moles/Vol] 3.5 mmol/L 3.5-5.1 [facility] Sodium [Moles/Vol] 134 mmol/L 136-145 [facility] International normalized rat io (INR) calculationOrdered By: Tacos Gibson on 06-12-2023 INR Coag (PPP) [Relative time] 4.5 {INR} [facility] Laboratory - Chemistry and C hemistry - challengeOrdered By: Tacos Gibson on 06-12-2023 CO2 [Moles/Vol] 26.0 mmol/L 21.0-32.0 [facility] Urea nitrogen/Creatinine [Mass ratio] 23.7 mg/mg 10-20 [facility] Laboratory - CoagulationOrde red By: Tacos Gibson on 06-12-2023 PT Coag (PPP) [Time] 43.4 s 11.7-14.9 [facility] No Panel InformationOrdered By: Tacos Gibson on 06-12-2023 Estimated GFR (MDRD) Amer 79 mL/min >60 [facility] Comment on above: GFR Calc Estimated GFR (MDRD) Non-Af Amer 65 mL/min >60 [facility] Comment on above: Non- GFR Calc Serum or plasma calcium josephine urement (mass/volume)Ordered By: Tacos Gibson on 06-12-2023 Calcium [Mass/Vol] 9.1 mg/dL 8.5-10.1 [facility] Serum or plasma creatinine m easurement (mass/volume)Ordered By: Tacos Gibson on 06-12-2023 Creatinine [Mass/Vol] 1.18 mg/dL 0.70-1.30 [facility] Comment on above: The validity of the calculated GFR & GFRAA in patients over 70 years has not been determined. Clinical correlation is essential. Serum or plasma urea nitroge n measurement (mass/volume)Ordered By: Tacos Gibson on 06-12-2023 Urea nitrogen [Mass/Vol] 28 mg/dL 7-18 [facility] Thin prep Papanicolaou smear with manual screeningOrdered By: Tacos Gibson on 06-12-2023 Thin prep Papanicolaou smear with manual screening 6 5-15 [facility] US Heart TransesophagealOrde red By: Kingston Stanley on 05-29-2023 Ascending Aorta 3.1 cm [employer] Work Phone: Ascending Aorta Index 1.68 cm/m2 [facility] [employer] Work Phone: MR VTI 152.6 cm [facility] [employer] Work Phone: MV Mean Gradient 4 mmHg [facility] [employer] Work Phone: MV Nyquist Velocity 33 cm/s [facility] [employer] Work Phone: MV Regurg Velocity PISA 5.2 m/s S [facility] [employer] Work Phone: [facility] [employer] Work Phone: US Heart Transesophagealon 0 05-29-2023 [...] appendage mass noted. Possible attempt at prior ZIAN ligation based on flow acceleration. Correalte to [...] alternatives were explained. Informed consent was obtained. MING probe number: 4. MING probe was inserted by the integrity manager with no difficulty. No complications. MING probe was removed. No contrast was given. See anesthesia notes for medications given. CV CPACS HEMO Cardiac catheterization stud yon 05-25-2023 Severe mixed etiolog y pulmonary hypertension. PVR 6 Wood Units and PCW 22 mmHg. 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 Borderline cardiac index. Right Heart Cath Matthews-Yoel catheter inserted via right internal jugular vein. [...] Units. Cath Recommendations 1. Will proceed with MING to better assess mitral valve 2. Restart furosemide and continue spironolactone 3. Start empagliflozin 10 mg per day. 4. Consider [id number] mitral valve replacement if indicated and after discussion with valve team. CV CPACS HEMO [facility] No Panel Informationon 05-25 Performed by: [facility], [address] [place] [address] CLIA ID: [id number] Reportable Results: OxyHemoglobin 0 - 100% Expected Ranges: OxyHemoglobin Arterial Sample 95 - 100%* Adequate Oxygenation >=92% Venous sample 60 - 85%* Note: *OxyHemoglobin Reference Ranges based upon literature review Adequate oxygenation based upon [facility] Clinical Decision [facility]: [facility], [address] [place] [id number] CLIA ID: [id number] Reportable Results: OxyHemoglobin 0 - 100% Expected Ranges: OxyHemoglobin Arterial Sample 95 - 100%* Adequate Oxygenation >=92% Venous sample 60 - 85%* Note: *OxyHemoglobin Reference Ranges based upon literature review Adequate oxygenation based upon [facility] Clinical Decision [facility] Vital signson 05-25-2023 Oxygen saturation in Blood 46 % [facility] Oxygen saturation in Blood 47 % [facility] Basophil percentageon 2023 WBC (Bld) [#/Vol] 7.8 10*3/uL 4.4-11.0 [facility] Blood erythrocytes count (nu mber/volume)on 05-20-2023 RBC (Bld) [#/Vol] 3.66 10*6/uL 4.6-6.2 [facility] Blood hemoglobin measurement (mass/volume)on 05-20-2023 Hemoglobin (Bld) [Mass/Vol] 11.2 g/dL 13.0-16.5 [facility] Blood platelet mean volumeon 05-20-2023 Platelet mean volume (Bld) [Entitic vol] 9.6 fL 6.2-12.0 [facility] Determination of erythrocyte mean corpuscular volume (MCV)on 05-20-2023 MCV (RBC) [Entitic vol] 97.3 fL 80-94 [facility] Hematocrit Auto (Bld) [Volum e fraction]on 01-03-2024 Hematocrit (Bld) [Volume fraction] 35.6 % 40-54 [facility] Laboratory - Chemistry and C hemistry - challengeon 05-20-2023 Natriuretic peptide B (Bld) [Mass/Vol] 504.1 pg/mL 0-100 [facility] Laboratory - Hematology and Cell countson 05-20-2023 Erythrocyte distribution width (RBC) [Entitic vol] 64.9 fL 35.1-43.9 [facility] Erythrocyte distribution width (RBC) [Ratio] 18.5 % 11.6-14.6 [facility] MCH (RBC) [Entitic mass] 30.6 pg 27.0-32.0 [facility] MCHC Auto (RBC) [Mass/Vol]on 05-20-2023 MCHC (RBC) [Mass/Vol] 31.5 g/dL 32-36 [facility] Platelets bldon 05-20-2023 Platelets (Bld) [#/Vol] 157 10*3/uL 150-450 [facility] No Panel Informationon 04-30 Sinus rhythm LVH Left anterior fasicular block [facility] INR in Blood by Coagulation assayOrdered By: Tacos Gibson on 04-27-2023 INR Coag (Bld) [Relative time] 2.4 {INR} [facility] Laboratory - CoagulationOrde red By: Tacos Gibson on 04-27-2023 PT Coag (PPP) [Time] 26.6 s 11.7-14.9 [facility] Laboratory - Drug toxicology Ordered By: Mariajose Sanchez on 03-10-2023 Amphetamines Ql (U) Negative <1000 ng/mL [facility] Benzodiazepines Ql (U) Negative < 200 ng/mL [facility] Cannabinoids Screen Ql (U) Negative < 50 ng/mL [facility] Cocaine Ql (U) Negative < 300 ng/mL [facility] Opiates Ql (U) Positive < 300 ng/mL [facility] No Panel InformationOrdered By: Mariajose Sanchez on 03-10-2023 MDMA (Ecstasy) Screen Positive < 500 ng/mL [facility] Miscellaneous Test See comment [facility] Comment on above: [id number] 6+OXYCODONE-B UND (ng/mL) DRUG RESULT SCREEN CUTOFF____ Amphetamines,Urine Negative ng/mL 1000 Amphetamine test includes Amphetamine and Methamphetamine.Barbiturates Negative ng/mL 200Benzodiazepines Negative ng/mL 200Cannabinoid Negative ng/mL 20Cocaine (Metab) Negative ng/mL 300Opiates Negative ng/mL 300 Opiates test includes Codeine, Morphine, Hydromorphone, Hydrocodone. Oxycodone/Oxymorphone,Urine Negative ng/mL 300 Test includes Oxycodone and Oxymorphone. TESTING PERFORMED AT [facility]. ORIGINAL REPORT ON FILE IN LAB CONTAINS ADDITIONAL TEST SITE INFORMATION. Urine Barbiturates Screen Negative < 200 ng/mL [facility] Urine Drug Screen Comment [facility] Comment on above: CONFIRMATORY TESTING FOR ALL POSITIVE URINE DRUG SCREENRESULTS WILL ONLY BE SENT OUT UPON PHYSICIAN ORDER. VISTA Urine Drug Screen methods provide only preliminaryanalytical test results. A more specific alternate chemicalmethod must be used in order to obtain a confirmedanalytical result. Gas chromatography/mass spectrometery(GC/MS) is the preferred confirmatory method. Clinicalconsideration and professional judgement should be appliedto any drug of abuse test result, particularly whenpreliminary positive results are used. URINE TCA TESTING MUST BE ORDERED SEPARATELY. USE TESTMNEMONIC: [facility] Urine Methadone Screen Negative < 300 ng/mL [facility] Urine phencyclidine (PCP) de tectionOrdered By: Mariajose Sanchez on 03-10-2023 Phencyclidine Ql (U) Negative < 25 ng/mL [facility] INR in Blood by Coagulation assayOrdered By: Tacos Gibson on 03-09-2023 INR Coag (Bld) [Relative time] 1.9 {INR} [facility] Laboratory - CoagulationOrde red By: Tacos Gibson on 03-09-2023 PT Coag (PPP) [Time] 22.1 s 11.7-14.9 [facility] Absolute lymphocyte countOrd ered By: Fracisco Carvalho on 02-25-2023 Lymphocytes Auto (Unsp spec) [#/Vol] 1.04 10*3/uL 0.83-4.51 [facility] Basophil percentageOrdered B y: Fracisco Carvalho on 02-25-2023 Basophils/100 WBC (Bld) 0.6 % 0-1 [facility] Bilirubin [Mass/Vol] 1.40 mg/dL 0.20-1.00 [facility] Comment on above: For patients on eltr ombopag therapy, use of Dimension [place] TBIL is not recommended. Chloride [Moles/Vol] 106 mmol/L 98-107 [facility] Eosinophils/100 WBC (Bld) 2.1 % 0-5 [facility] Glucose [Mass/Vol] 96 mg/dL 74-106 [facility] Neutrophils (Bld) [#/Vol] 6.1 10*3/uL 2.0-7.7 [facility] Neutrophils/100 WBC (Bld) 70.6 % 47-70 [facility] Potassium [Moles/Vol] 4.0 mmol/L 3.5-5.1 [facility] Protein [Mass/Vol] 7.2 g/dL 6.4-8.2 [facility] Sodium [Moles/Vol] 136 mmol/L 136-145 [facility] WBC (Bld) [#/Vol] 8.6 10*3/uL 4.4-11.0 [facility] Blood erythrocytes count (nu mber/volume)Ordered By: Fracisco Carvalho on 02-25-2023 RBC (Bld) [#/Vol] 3.41 10*6/uL 4.6-6.2 [facility] Blood hemoglobin measurement (mass/volume)Ordered By: Fracisco Carvalho on 02-25-2023 Hemoglobin (Bld) [Mass/Vol] 10.1 g/dL 13.0-16.5 [facility] Blood lymphocytes/100 leukoc ytesOrdered By: Fracisco Carvalho on 02-25-2023 Lymphocytes/100 WBC (Bld) 12.1 % 19-41 [facility] Blood monocytes/100 leukocyt esOrdered By: Fracisco Carvalho on 02-25-2023 Monocytes/100 WBC (Bld) 14.1 % 0-10 [facility] Determination of erythrocyte mean corpuscular volume (MCV)Ordered By: Fracisco Cravalho on 02-25-2023 MCV (RBC) [Entitic vol] 95.9 fL 80-94 [facility] Hematocrit Auto (Bld) [Volum e fraction]Ordered By: Fracisco Carvalho on 02-25-2023 Hematocrit (Bld) [Volume fraction] 32.7 % 40-54 [facility] INR in Blood by Coagulation assayOrdered By: Fracisco Carvalho on 02-25-2023 INR Coag (Bld) [Relative time] 9.5 {INR} [facility] Comment on above: CRITICAL VALUE VERIF IED. CALLED TO [facility]02/25/23 1638 Nam Farr.RESULTS READ BACK BY SAME . Laboratory - Chemistry and C hemistry - challengeOrdered By: Fracisco Carvalho on 02-25-2023 ALP [Catalytic activity/Vol] 193 U/L 45-117 [facility] ALT [Catalytic activity/Vol] 33 U/L 16-61 [facility] CO2 [Moles/Vol] 24.0 mmol/L 21.0-32.0 [facility] Globulin (S) [Mass/Vol] 3.8 g/dL 2.2-4.2 [facility] Urea nitrogen/Creatinine [Mass ratio] 10.1 mg/mg 10-20 [facility] Laboratory - CoagulationOrde red By: Fracisco Carvalho on 02-25-2023 PT Coag (PPP) [Time] 78.7 s 11.7-14.9 [facility] Laboratory - Hematology and Cell countsOrdered By: Fracisco Carvalho on 02-25-2023 Erythrocyte distribution width (RBC) [Entitic vol] 64.5 fL 35.1-43.9 [facility] Erythrocyte distribution width (RBC) [Ratio] 18.4 % 11.6-14.6 [facility] Immature granulocytes/100 WBC (Bld) 0.500 % 0.0-0.9 [facility] Comment on above: IG% - Immature Granu locytes (promyelocytes, myelocytes and metamyelocytes) > 1% indicates that a LEFT SHIFT is Present. MCH (RBC) [Entitic mass] 29.6 pg 27.0-32.0 [facility] Nucleated RBC/100 WBC (Bld) [Ratio] 0 % 0-5 [facility] MCHC Auto (RBC) [Mass/Vol]Or dered By: Fracisco Carvalho on 02-25-2023 MCHC (RBC) [Mass/Vol] 30.9 g/dL 32-36 [facility] No Panel Informationon 02-25 INR International Normalized Ratio 9.5 [facility] No Panel InformationOrdered By: Fracisco Carvalho on 02-25-2023 Estimated GFR (MDRD) Amer 78 mL/min >60 [facility] Comment on above: GFR Calc Estimated GFR (MDRD) Non-Af Amer 65 mL/min >60 [facility] Comment on above: Non- GFR Calc Prostate Specific Antigen Screen 0.24 ng/mL 0.00-4.00 [facility] Comment on above: This test was perfor med using the TPSA assay method for the[employer] chemistry system. Values obtained with differentassay methods cannot be used interchangably.When changing PSA assays in the course of monitoring apatient, additional sequential testing should be carriedout to confirm baseline values. Thyroid Stimulating Hormone (TSH) 3.54 uIU/mL 0.358-3.74 [facility] Vitamin D 25-Hydroxy 76.6 ng/mL [facility] Comment on above: Vitamin D 25(OH) Sta tus Range Deficiency <20 ng/mL (50nmol/L) Insufficiency 20 - 30 ng/mL (50 - 75 nmol/L) Sufficiency 30 - 100 ng/mL (75 - 250 nmol/L) Toxicity >100 ng/mL (>250 nmol/L) Platelets bldOrdered By: Fracisco Carvalho on 02-25-2023 Platelets (Bld) [#/Vol] 138 10*3/uL 150-450 [facility] Serum or plasma albumin josephine urement (mass/volume)Ordered By: Fracisco Carvalho on 02-25-2023 Albumin [Mass/Vol] 3.4 g/dL 3.2-5.0 [facility] Serum or plasma albumin/glob ulin mass ratioOrdered By: Fracisco Carvalho on 02-25-2023 Albumin/Globulin [Mass ratio] 0.9 {ratio} 0.9-2.4 [facility] Serum or plasma calcium josephine urement (mass/volume)Ordered By: Fracisco Carvalho on 02-25-2023 Calcium [Mass/Vol] 8.6 mg/dL 8.5-10.1 [facility] Serum or plasma creatinine m easurement (mass/volume)Ordered By: Fracisco Carvalho on 02-25-2023 Creatinine [Mass/Vol] 1.19 mg/dL 0.70-1.30 [facility] Comment on above: The validity of the calculated GFR & GFRAA in patients over 70 years has not been determined. Clinical correlation is essential. Serum or plasma urea nitroge n measurement (mass/volume)Ordered By: Fracisco Carvalho on 02-25-2023 Urea nitrogen [Mass/Vol] 12 mg/dL 7-18 [facility] Thin prep Papanicolaou smear with manual screeningOrdered By: Fracisco Carvalho on 02-25-2023 Thin prep Papanicolaou smear with manual screening 57 U/L 15-37 [facility] [place] Thin prep Papanicolaou smear with manual screening 6 5-15 [facility] INR in Blood by Coagulation assayOrdered By: Tacos Gibson on 11-20-2022 INR Coag (Bld) [Relative time] 3.6 {INR} [facility] Laboratory - CoagulationOrde red By: Tacos Gibson on 11-20-2022 PT Coag (PPP) [Time] 36.8 s 11.7-14.9 [facility] Absolute lymphocyte countOrd ered By: Dr. Carvalho on 09-04-2022 Lymphocytes Auto (Unsp spec) [#/Vol] 1.31 10*3/uL 0.83-4.51 [facility] Basophil percentageOrdered B y: Dr. Carvalho on 09-04-2022 Basophils/100 WBC (Bld) 0.4 % 0-1 [facility] Eosinophils/100 WBC (Bld) 2.3 % 0-5 [facility] Neutrophils (Bld) [#/Vol] 5.6 10*3/uL 2.0-7.7 [facility] Neutrophils/100 WBC (Bld) 70.1 % 47-70 [facility] WBC (Bld) [#/Vol] 8.0 10*3/uL 4.4-11.0 [facility] Blood erythrocytes count (nu mber/volume)Ordered By: Dr. Carvalho on 09-04-2022 RBC (Bld) [#/Vol] 3.51 10*6/uL 4.6-6.2 [facility] Blood hemoglobin measurement (mass/volume)Ordered By: Dr. Carvalho on 09-04-2022 Hemoglobin (Bld) [Mass/Vol] 10.2 g/dL 13.0-16.5 [facility] Blood lymphocytes/100 leukoc ytesOrdered By: Dr. Carvalho on 09-04-2022 Lymphocytes/100 WBC (Bld) 16.5 % 19-41 [facility] [place] Blood monocytes/100 leukocyt esOrdered By: Dr. Carvalho on 09-04-2022 Monocytes/100 WBC (Bld) 9.7 % 0-10 [facility] Determination of erythrocyte mean corpuscular volume (MCV)Ordered By: Dr. Carvalho on 09-04-2022 MCV (RBC) [Entitic vol] 91.7 fL 80-94 [facility] Hematocrit Auto (Bld) [Volum e fraction]Ordered By: Dr. Carvalho on 09-04-2022 Hematocrit (Bld) [Volume fraction] 32.2 % 40-54 [facility] Iron measurement (mass/mass) Ordered By: Dr. Carvalho on 09-04-2022 Iron (Unsp spec) [Mass/Mass] 109 ug/dL 65-175 [facility] [place] Laboratory - Chemistry and C hemistry - challengeOrdered By: Dr. Carvalho on 09-04-2022 Cobalamin (Vitamin B12) [Mass/Vol] 309 pg/mL 211-911 [facility] Natriuretic peptide B (Bld) [Mass/Vol] 343.1 pg/mL 0-100 [facility] Laboratory - Hematology and Cell countsOrdered By: Dr. Carvalho on 09-04-2022 Erythrocyte distribution width (RBC) [Entitic vol] 61.9 fL 35.1-43.9 [facility] [place] Erythrocyte distribution width (RBC) [Ratio] 18.9 % 11.6-14.6 [facility] Immature granulocytes/100 WBC (Bld) 1.000 % 0.0-0.9 [facility] Comment on above: IG% - Immature Granu locytes (promyelocytes, myelocytes and metamyelocytes) > 1% indicates that a LEFT SHIFT is Present. MCH (RBC) [Entitic mass] 29.1 pg 27.0-32.0 [facility] Nucleated RBC/100 WBC (Bld) [Ratio] 0 % 0-5 [facility] MCHC Auto (RBC) [Mass/Vol]Or dered By: Dr. Carvalho on 09-04-2022 MCHC (RBC) [Mass/Vol] 31.7 g/dL 32-36 [facility] No Panel InformationOrdered By: Dr. Carvalho on 09-04-2022 Total Iron Binding Capacity 391 ug/dL 250-450 [facility] Platelets bldOrdered By: Dr. Carvalho on 09-04-2022 Platelets (Bld) [#/Vol] 168 10*3/uL 150-450 [facility] [place] Serum or plasma ferritin mirela surement (mass/volume)Ordered By: Dr. Carvalho on 09-04-2022 Ferritin [Mass/Vol] 42 ng/mL 26-388 [facility] Serum or plasma folate measu rement (mass/volume)Ordered By: Dr. Carvalho on 09-04-2022 Folate [Mass/Vol] 35.60 ng/mL 3.1-55.4 [facility] Serum or plasma iron saturat ion measurement (mass fraction)Ordered By: Dr. Carvalho on 09-04-2022 Iron saturation [Mass fraction] 27.9 % 15.0-55.0 [facility] [place] Absolute lymphocyte countOrd ered By: Dr. Carvalho on 08-27-2022 Lymphocytes Auto (Unsp spec) [#/Vol] 1.00 10*3/uL 0.83-4.51 [facility] [place] Basophil percentageOrdered B y: Dr. Carvalho on 08-27-2022 Basophils/100 WBC (Bld) 0.4 % 0-1 [facility] Bilirubin [Mass/Vol] 0.60 mg/dL 0.20-1.00 [facility] Comment on above: For patients on eltr ombopag therapy, use of Dimension [place] TBIL is not recommended. Chloride [Moles/Vol] 109 mmol/L 98-107 [facility] Eosinophils/100 WBC (Bld) 2.2 % 0-5 [facility] Glucose [Mass/Vol] 93 mg/dL 74-106 [facility] Neutrophils (Bld) [#/Vol] 4.7 10*3/uL 2.0-7.7 [facility] Neutrophils/100 WBC (Bld) 70.5 % 47-70 [facility] [place] Potassium [Moles/Vol] 4.5 mmol/L 3.5-5.1 [facility] Protein [Mass/Vol] 6.6 g/dL 6.4-8.2 [facility] Sodium [Moles/Vol] 137 mmol/L 136-145 [facility] Testosterone [Mass/Vol] 422.11 ng/dL [facility] Comment on above: CENTRAL 90% REFERENC E RANGES MALE AGE <50 197.44 - 669.58 ng/dL MALE AGE > or = 50 187.72 - 684.19 ng/dL FEMALE AGE <50 8.38 - 35.01 ng/dL FEMALE AGE > or = 50 <7.00 - 35.92 ng/dL Effective as of 12/11/20 WBC (Bld) [#/Vol] 6.7 10*3/uL 4.4-11.0 [facility] Blood erythrocytes count (nu mber/volume)Ordered By: Dr. Carvalho on 08-27-2022 RBC (Bld) [#/Vol] 3.45 10*6/uL 4.6-6.2 [facility] Blood hemoglobin measurement (mass/volume)Ordered By: Dr. Carvalho on 08-27-2022 Hemoglobin (Bld) [Mass/Vol] 10.0 g/dL 13.0-16.5 [facility] [place] Blood lymphocytes/100 leukoc ytesOrdered By: Dr. Carvalho on 08-27-2022 Lymphocytes/100 WBC (Bld) 14.9 % 19-41 [facility] [place] Blood monocytes/100 leukocyt esOrdered By: Dr. Carvalho on 08-27-2022 Monocytes/100 WBC (Bld) 11.3 % 0-10 [facility] Blood platelet mean volumeOr dered By: Dr. Carvalho on 08-27-2022 Platelet mean volume (Bld) [Entitic vol] 10.5 fL 6.2-12.0 [facility] [place] Determination of erythrocyte mean corpuscular volume (MCV)Ordered By: Dr. Carvalho on 08-27-2022 MCV (RBC) [Entitic vol] 91.3 fL 80-94 [facility] Hematocrit Auto (Bld) [Volum e fraction]Ordered By: Dr. Carvalho on 08-27-2022 Hematocrit (Bld) [Volume fraction] 31.5 % 40-54 [facility] [place] Laboratory - Chemistry and C hemistry - challengeOrdered By: Dr. Carvalho on 08-27-2022 ALP [Catalytic activity/Vol] 122 U/L 45-117 [facility] ALT [Catalytic activity/Vol] 32 U/L 16-61 [facility] CO2 [Moles/Vol] 23.0 mmol/L 21.0-32.0 [facility] Globulin (S) [Mass/Vol] 3.1 g/dL 2.2-4.2 [facility] Urea nitrogen/Creatinine [Mass ratio] 14.8 mg/mg 10-20 [facility] [place] Laboratory - Hematology and Cell countsOrdered By: Dr. Carvalho on 08-27-2022 Erythrocyte distribution width (RBC) [Entitic vol] 54.1 fL 35.1-43.9 [facility] Erythrocyte distribution width (RBC) [Ratio] 16.4 % 11.6-14.6 [facility] Immature granulocytes/100 WBC (Bld) 0.700 % 0.0-0.9 [facility] Comment on above: IG% - Immature Granu locytes (promyelocytes, myelocytes and metamyelocytes) > 1% indicates that a LEFT SHIFT is Present. MCH (RBC) [Entitic mass] 29.0 pg 27.0-32.0 [facility] Nucleated RBC/100 WBC (Bld) [Ratio] 0 % 0-5 [facility] MCHC Auto (RBC) [Mass/Vol]Or dered By: Dr. Carvalho on 08-27-2022 MCHC (RBC) [Mass/Vol] 31.7 g/dL 32-36 [facility] No Panel InformationOrdered By: Dr. Carvalho on 08-27-2022 Estimated GFR (MDRD) Amer 102 mL/min >60 [facility] [place] Comment on above: GFR Calc Estimated GFR (MDRD) Non-Af Amer 85 mL/min >60 [facility] [place] Comment on above: Non- GFR Calc Thyroid Stimulating Hormone (TSH) 2.35 uIU/mL 0.358-3.74 [facility] Vitamin D 25-Hydroxy 62.8 ng/mL [facility] Comment on above: Vitamin D 25(OH) Sta tus Range Deficiency <20 ng/mL (50nmol/L) Insufficiency 20 - 30 ng/mL (50 - 75 nmol/L) Sufficiency 30 - 100 ng/mL (75 - 250 nmol/L) Toxicity >100 ng/mL (>250 nmol/L) Platelets bldOrdered By: Dr. Carvalho on 08-27-2022 Platelets (Bld) [#/Vol] 184 10*3/uL 150-450 [facility] Serum or plasma albumin josephine urement (mass/volume)Ordered By: Dr. Carvalho on 08-27-2022 Albumin [Mass/Vol] 3.5 g/dL 3.2-5.0 [facility] Serum or plasma albumin/glob ulin mass ratioOrdered By: Dr. Carvalho on 08-27-2022 Albumin/Globulin [Mass ratio] 1.1 {ratio} 0.9-2.4 [facility] Serum or plasma calcium josephine urement (mass/volume)Ordered By: Dr. Carvalho on 08-27-2022 Calcium [Mass/Vol] 8.9 mg/dL 8.5-10.1 [facility] Serum or plasma creatinine m easurement (mass/volume)Ordered By: Dr. Carvalho on 08-27-2022 Creatinine [Mass/Vol] 0.94 mg/dL 0.70-1.30 [facility] Comment on above: The validity of the calculated GFR & GFRAA in patients over 70 years has not been determined. Clinical correlation is essential. Serum or plasma urea nitroge n measurement (mass/volume)Ordered By: Dr. Carvalho on 08-27-2022 Urea nitrogen [Mass/Vol] 14 mg/dL 7-18 [facility] [place] Thin prep Papanicolaou smear with manual screeningOrdered By: Dr. Carvalho on 08-27-2022 Thin prep Papanicolaou smear with manual screening 44 U/L 15-37 [facility] [place] Thin prep Papanicolaou smear with manual screening 5 5-15 [facility] INR in Blood by Coagulation assayOrdered By: Dr. Dietz on 07-29-2022 INR Coag (Bld) [Relative time] 3.0 {INR} [facility] [place] Laboratory - CoagulationOrde red By: Dr. Dietz on 07-29-2022 PT Coag (PPP) [Time] 30.9 s 11.7-14.9 [facility] Laboratory - Drug toxicology Ordered By: Dr. Sanchez on 07-29-2022 Amphetamines Ql (U) Negative <1000 ng/mL [facility] Benzodiazepines Ql (U) Negative < 200 ng/mL [facility] Cannabinoids Screen Ql (U) Negative < 50 ng/mL [facility] Cocaine Ql (U) Negative < 300 ng/mL [facility] Opiates Ql (U) Negative < 300 ng/mL [facility] No Panel InformationOrdered By: Dr. Sanchez on 07-29-2022 MDMA (Ecstasy) Screen Positive < 500 ng/mL [facility] Miscellaneous Test See comment [facility] Comment on above: [id number] 6+OXYCODONE-B UND (ng/mL) DRUG RESULT SCREEN CUTOFF____ Amphetamines,Urine Negative ng/mL 1000 Amphetamine test includes Amphetamine and Methamphetamine.Barbiturates Negative ng/mL 200Benzodiazepines Negative ng/mL 200Cannabinoid Negative ng/mL 20Cocaine (Metab) Negative ng/mL 300Opiates Negative ng/mL 300 Opiates test includes Codeine, Morphine, Hydromorphone, Hydrocodone. Oxycodone/Oxymorphone,Urine Negative ng/mL 300 Test includes Oxydodone and Oxymorphone. TESTING PERFORMED AT [facility]. ORIGINAL REPORT ON FILE IN LAB CONTAINS ADDITIONAL TEST SITE INFORMATION. Urine Barbiturates Screen Negative < 200 ng/mL [facility] Urine Drug Screen Comment [facility] Comment on above: CONFIRMATORY TESTING FOR ALL POSITIVE URINE DRUG SCREENRESULTS WILL ONLY BE SENT OUT UPON PHYSICIAN ORDER. VISTA Urine Drug Screen methods provide only preliminaryanalytical test results. A more specific alternate chemicalmethod must be used in order to obtain a confirmedanalytical result. Gas chromatography/mass spectrometery(GC/MS) is the preferred confirmatory method. Clinicalconsideration and professional judgement should be appliedto any drug of abuse test result, particularly whenpreliminary positive results are used. URINE TCA TESTING MUST BE ORDERED SEPARATELY. USE TESTMNEMONIC: [facility] Urine Methadone Screen Negative < 300 ng/mL [facility] Urine phencyclidine (PCP) de tectionOrdered By: Dr. Sanchez on 07-29-2022 Phencyclidine Ql (U) Negative < 25 ng/mL [facility] Laboratory - Microbiology an d Antimicrobial susceptibilityOrdered By: Dr. Carvalho on 06-13-2022 SARS-CoV-2 (COVID-19) RNA STEPHAN+probe Ql (Unsp spec) Not detected Not Detect [facility] Comment on above: Normal Reference Ran ge: Not DetectedMethod:(RT-PCR) real-time reverse transcriptase PCRLuminex JOSEPH Instrument*The Food and Drug Administration (FDA) has issued an Emergency Use Authorization (EAU) for the JOSEPH SARS-CoV-2 Assay for the rapid detection of the virus that causes COVID-19. This test has been validated, but the FDAs independent review of this validation is pending.*Negative results do not preclude infection and should not be used as the sole basis for treatment or patient management. Optimum specimen types and timing for peak viral levels during infections caused by SARS-CoV-2 have not been determined. Collection of multiple specimens from the same patient may be necessary to detect the virus. The possibility of a false negative result should be considered if the patient has clinical presentation or has had recent exposure. No Panel InformationOrdered By: Dr. Carvalho on 06-13-2022 Influenza Types A,B Direct FA (EVER) [facility] RSV Ag EIAOrdered By: Dr. Jonathan marcano on 06-13-2022 RSV Ag Immune stain Ql (Tiss) [facility] INR in Blood by Coagulation assayOrdered By: Dr. Dietz on 05-16-2022 INR Coag (Bld) [Relative time] 3.4 {INR} [facility] [place] Laboratory - CoagulationOrde red By: Dr. Dietz on 05-16-2022 PT Coag (PPP) [Time] 34.4 s 11.7-14.9 [facility] Laboratory - Drug toxicology Ordered By: Dr. Sanchez on 03-11-2022 Amphetamines Ql (U) Negative <1000 ng/mL [facility] Benzodiazepines Ql (U) Negative < 200 ng/mL [facility] Cannabinoids Screen Ql (U) Negative < 50 ng/mL [facility] Cocaine Ql (U) Negative < 300 ng/mL [facility] Opiates Ql (U) Positive < 300 ng/mL [facility] No Panel InformationOrdered By: Dr. Sanchez on 03-11-2022 MDMA (Ecstasy) Screen Positive < 500 ng/mL [facility] Miscellaneous Test See comment [facility] Comment on above: [id number] 6+OXYCODONE-B UND (ng/mL) DRUG RESULT SCREEN CUTOFF____ Amphetamines,Urine Negative ng/mL 1000 Amphetamine test includes Amphetamine and Methamphetamine.Barbiturates Negative ng/mL 200Benzodiazepines Negative ng/mL 200Cannabinoid Negative ng/mL 20Cocaine (Metab) Negative ng/mL 300Opiates Negative ng/mL 300 Opiates test includes Codeine, Morphine, Hydromorphone, Hydrocodone. Oxycodone/Oxymorphone,Urine Negative ng/mL 300 Test includes Oxydodone and Oxymorphone. TESTING PERFORMED AT [facility]. ORIGINAL REPORT ON FILE IN LAB CONTAINS ADDITIONAL TEST SITE INFORMATION. Urine Barbiturates Screen Negative < 200 ng/mL [facility] Urine Drug Screen Comment [facility] Comment on above: CONFIRMATORY TESTING FOR ALL POSITIVE URINE DRUG SCREENRESULTS WILL ONLY BE SENT OUT UPON PHYSICIAN ORDER. [facility]ISTA Urine Drug Screen methods provide only preliminaryanalytical test results. A more specific alternate chemicalmethod must be used in order to obtain a confirmedanalytical result. Gas chromatography/mass spectrometery(GC/MS) is the preferred confirmatory method. Clinicalconsideration and professional judgement should be appliedto any drug of abuse test result, particularly whenpreliminary positive results are used. URINE TCA TESTING MUST BE ORDERED SEPARATELY. USE TESTMNEMONIC: [facility] Urine Methadone Screen Negative < 300 ng/mL [facility] Urine phencyclidine (PCP) de tectionOrdered By: Dr. Sanchez on 03-11-2022 Phencyclidine Ql (U) Negative < 25 ng/mL [facility] Absolute lymphocyte counton 02-21-2022 Lymphocytes Auto (Unsp spec) [#/Vol] 1.12 10*3/uL 0.83-4.51 [facility] Work Phone: Basophil percentageon 2021 Basophils/100 WBC (Bld) 0.1 % 0-1 [facility] Work Phone: Bilirubin [Mass/Vol] 0.70 mg/dL 0.20-1.00 [facility] Work Phone: Comment on above: For patients on eltr ombopag therapy, use of Dimension [place] TBIL is not recommended. Chloride [Moles/Vol] 107 mmol/L 98-107 [facility] Work Phone: Eosinophils/100 WBC (Bld) 0.4 % 0-5 [facility] [place] Work Phone: Glucose [Mass/Vol] 103 mg/dL 74-106 [facility] Work Phone: Comment on above: Fasting Glucose resu lt from 100 to 125 mg/dL suggests IMPAIRED HOMEOSTASIS per A.D.A. criteria. Neutrophils (Bld) [#/Vol] 6.3 10*3/uL 2.0-7.7 [facility] Work Phone: Neutrophils/100 WBC (Bld) 75.2 % 47-70 [facility] [place] Work Phone: Potassium [Moles/Vol] 4.0 mmol/L 3.5-5.1 [facility] Work Phone: Protein [Mass/Vol] 7.6 g/dL 6.4-8.2 [facility] Work Phone: Sodium [Moles/Vol] 139 mmol/L 136-145 [facility] Work Phone: Testosterone [Mass/Vol] 411.58 ng/dL [facility] [place] Work Phone: Comment on above: CENTRAL 90% REFERENC E RANGES MALE AGE <50 197.44 - 669.58 ng/dL MALE AGE > or = 50 187.72 - 684.19 ng/dL FEMALE AGE <50 8.38 - 35.01 ng/dL FEMALE AGE > or = 50 <7.00 - 35.92 ng/dL Effective as of 12/11/20 WBC (Bld) [#/Vol] 8.4 10*3/uL 4.4-11.0 [facility] Work Phone: Blood erythrocytes count (nu mber/volume)on 02-21-2022 RBC (Bld) [#/Vol] 3.88 10*6/uL 4.6-6.2 [facility] Work Phone: Blood hemoglobin measurement (mass/volume)on 02-21-2022 Hemoglobin (Bld) [Mass/Vol] 11.8 g/dL 13.0-16.5 [facility] Work Phone: Blood lymphocytes/100 leukoc yteson 02-21-2022 Lymphocytes/100 WBC (Bld) 13.3 % 19-41 [facility] Work Phone: Blood monocytes/100 leukocyt eson 02-21-2022 Monocytes/100 WBC (Bld) 10.3 % 0-10 [facility] Work Phone: Blood platelet mean volumeon 02-21-2022 Platelet mean volume (Bld) [Entitic vol] 11.5 fL 6.2-12.0 [facility] Work Phone: Determination of erythrocyte mean corpuscular volume (MCV)on 02-21-2022 MCV (RBC) [Entitic vol] 90.7 fL 80-94 [facility] Work Phone: Hematocrit Auto (Bld) [Volum e fraction]on 02-21-2022 Hematocrit (Bld) [Volume fraction] 35.2 % 40-54 [facility] Work Phone: INR in Blood by Coagulation assayon 02-21-2022 INR Coag (Bld) [Relative time] 2.6 {INR} [facility] Work Phone: Laboratory - Chemistry and C hemistry - challengeon 02-21-2022 ALP [Catalytic activity/Vol] 77 U/L 45-117 [facility] [place] Work Phone: ALT [Catalytic activity/Vol] 33 U/L 16-61 [facility] Work Phone: CO2 [Moles/Vol] 26.0 mmol/L 21.0-32.0 [facility] Work Phone: Globulin (S) [Mass/Vol] 4.0 g/dL 2.2-4.2 [facility] Work Phone: Urea nitrogen/Creatinine [Mass ratio] 19.0 mg/mg 10-20 [facility] Work Phone: Laboratory - Coagulationon PT Coag (PPP) [Time] 27.2 s 11.7-14.9 [facility] Work Phone: Laboratory - Hematology and Cell countson 02-21-2022 Erythrocyte distribution width (RBC) [Entitic vol] 51.0 fL 35.1-43.9 [facility] Work Phone: Erythrocyte distribution width (RBC) [Ratio] 15.4 % 11.6-14.6 [facility] Work Phone: Immature granulocytes/100 WBC (Bld) 0.700 % 0.0-0.9 [facility] Work Phone: Comment on above: IG% - Immature Granu locytes (promyelocytes, myelocytes and metamyelocytes) > 1% indicates that a LEFT SHIFT is Present. MCH (RBC) [Entitic mass] 30.4 pg 27.0-32.0 [facility] Work Phone: Nucleated RBC/100 WBC (Bld) [Ratio] 0 % 0-5 [facility] Work Phone: MCHC Auto (RBC) [Mass/Vol]on 02-21-2022 MCHC (RBC) [Mass/Vol] 33.5 g/dL 32-36 [facility] Work Phone: No Panel Informationon 02-21 Estimated GFR (MDRD) Amer 102 mL/min >60 [facility] Work Phone: Comment on above: GFR Calc Estimated GFR (MDRD) Non-Af Amer 84 mL/min >60 [facility] Work Phone: Comment on above: Non- GFR Calc Prostate Specific Antigen Screen 0.23 ng/mL 0.00-4.00 [facility] Work Phone: Comment on above: This test was perfor med using the TPSA assay method [facility]. Values obtained with differentassay methods cannot be used interchangably.When changing PSA assays in the course of monitoring apatient, additional sequential testing should be carriedout to confirm baseline values. Thyroid Stimulating Hormone (TSH) 1.64 uIU/mL 0.358-3.74 [facility] [facility] [place] Work Phone: Vitamin D 25-Hydroxy 71.8 ng/mL [facility] Work Phone: Comment on above: Vitamin D 25(OH) Sta tus Range Deficiency <20 ng/mL (50nmol/L) Insufficiency 20 - 30 ng/mL (50 - 75 nmol/L) Sufficiency 30 - 100 ng/mL (75 - 250 nmol/L) Toxicity >100 ng/mL (>250 nmol/L) Platelets bldon 02-21-2022 Platelets (Bld) [#/Vol] 229 10*3/uL 150-450 [facility] [place] Work Phone: Serum or plasma albumin josephine urement (mass/volume)on 02-21-2022 Albumin [Mass/Vol] 3.6 g/dL 3.2-5.0 [facility] Work Phone: Serum or plasma albumin/glob ulin mass ratioon 02-21-2022 Albumin/Globulin [Mass ratio] 0.9 {ratio} 0.9-2.4 [facility] [place] Work Phone: Serum or plasma calcium josephine urement (mass/volume)on 02-21-2022 Calcium [Mass/Vol] 9.1 mg/dL 8.5-10.1 [facility] Work Phone: Serum or plasma creatinine m easurement (mass/volume)on 02-21-2022 Creatinine [Mass/Vol] 0.95 mg/dL 0.70-1.30 [facility] Work Phone: Comment on above: The validity of the calculated GFR & GFRAA in patients over 70 years has not been determined. Clinical correlation is essential. Serum or plasma urea nitroge n measurement (mass/volume)on 02-21-2022 Urea nitrogen [Mass/Vol] 18 mg/dL 7-18 [facility] [place] Work Phone: Thin prep Papanicolaou smear with manual screeningon 02-21-2022 Thin prep Papanicolaou smear with manual screening 35 U/L 15-37 [facility] [place] Work Phone: Thin prep Papanicolaou smear with manual screening 6 5-15 [facility] [place] Work Phone: INR in Blood by Coagulation assayon 11-08-2021 INR Coag (Bld) [Relative time] 1.4 {INR} [facility] [place] Work Phone: Laboratory - Coagulationon 0 11-08-2021 PT Coag (PPP) [Time] 16.7 s 11.7-14.9 [facility] Work Phone: Absolute lymphocyte counton 10-30-2021 Lymphocytes Auto (Unsp spec) [#/Vol] 1.16 10*3/uL 0.83-4.51 [facility] [place] Work Phone: Basophil percentageon 2021 Basophils/100 WBC (Bld) 0.2 % 0-1 [facility] Work Phone: Chloride [Moles/Vol] 106 mmol/L 98-107 [facility] Work Phone: [phone] Eosinophils/100 WBC (Bld) 0.6 % 0-5 [facility] [place] Work Phone: Glucose [Mass/Vol] 93 mg/dL 74-106 [facility] Work Phone: Neutrophils (Bld) [#/Vol] 6.1 10*3/uL 2.0-7.7 [facility] [place] Work Phone: Neutrophils/100 WBC (Bld) 73.1 % 47-70 [facility] [place] Work Phone: Potassium [Moles/Vol] 4.0 mmol/L 3.5-5.1 [facility] Work Phone: Sodium [Moles/Vol] 139 mmol/L 136-145 [facility] Work Phone: WBC (Bld) [#/Vol] 8.3 10*3/uL 4.4-11.0 [facility] Work Phone: Blood erythrocytes count (nu mber/volume)on 10-30-2021 RBC (Bld) [#/Vol] 3.11 10*6/uL 4.6-6.2 [facility] Work Phone: Blood hemoglobin measurement (mass/volume)on 10-30-2021 Hemoglobin (Bld) [Mass/Vol] 10.3 g/dL 13.0-16.5 [facility] [place] Work Phone: Blood lymphocytes/100 leukoc yteson 10-30-2021 Lymphocytes/100 WBC (Bld) 13.9 % 19-41 [facility] [place] Work Phone: Blood monocytes/100 leukocyt eson 10-30-2021 Monocytes/100 WBC (Bld) 10.8 % 0-10 [facility] Work Phone: Blood platelet mean volumeon 10-30-2021 Platelet mean volume (Bld) [Entitic vol] 11.0 fL 6.2-12.0 [facility] [place] Work Phone: Determination of erythrocyte mean corpuscular volume (MCV)on 10-30-2021 MCV (RBC) [Entitic vol] 101.3 fL 80-94 [facility] Work Phone: Erythrocyte sedimentation ra daphnie 10-30-2021 ESR (Bld) [Velocity] 17 mm/h 0-20 [facility] Work Phone: Hematocrit Auto (Bld) [Volum e fraction]on 10-30-2021 Hematocrit (Bld) [Volume fraction] 31.5 % 40-54 [facility] [place] Work Phone: INR in Blood by Coagulation assayon 10-30-2021 INR Coag (Bld) [Relative time] 3.0 {INR} [facility] [place] Work Phone: Laboratory - Chemistry and C hemistry - challengeon 10-30-2021 CK [Catalytic activity/Vol] 40 U/L 39-308 [facility] [place] Work Phone: CO2 [Moles/Vol] 27.0 mmol/L 21.0-32.0 [facility] [place] Work Phone: Urea nitrogen/Creatinine [Mass ratio] 17.5 mg/mg 10-20 [facility] [place] Work Phone: Laboratory - Coagulationon 0 10-30-2021 PT Coag (PPP) [Time] 30.4 s 11.7-14.9 [facility] Work Phone: Laboratory - Hematology and Cell countson 10-30-2021 Erythrocyte distribution width (RBC) [Entitic vol] 59.5 fL 35.1-43.9 [facility] [place] Work Phone: Erythrocyte distribution width (RBC) [Ratio] 16.4 % 11.6-14.6 [facility] [place] Work Phone: Immature granulocytes/100 WBC (Bld) 1.400 % 0.0-0.9 [facility] [place] Work Phone: Comment on above: IG% - Immature Granu locytes (promyelocytes, myelocytes and metamyelocytes) > 1% indicates that a LEFT SHIFT is Present. MCH (RBC) [Entitic mass] 33.1 pg 27.0-32.0 [facility] [place] Work Phone: Nucleated RBC/100 WBC (Bld) [Ratio] 0 % 0-5 [facility] [place] Work Phone: MCHC Auto (RBC) [Mass/Vol]on 10-30-2021 MCHC (RBC) [Mass/Vol] 32.7 g/dL 32-36 [facility] Work Phone: No Panel Informationon 10-30 Estimated GFR (MDRD) Amer 115 mL/min >60 [facility] [place] Work Phone: Comment on above: GFR Calc Estimated GFR (MDRD) Non-Af Amer 95 mL/min >60 [facility] [place] Work Phone: Comment on above: Non- GFR Calc Methicillin-Resist S.aureus DNA PCR Negative Negative [facility] [place] Work Phone: Platelets bldon 10-30-2021 Platelets (Bld) [#/Vol] 203 10*3/uL 150-450 [facility] [place] Work Phone: Serum or plasma calcium josephine urement (mass/volume)on 10-30-2021 Calcium [Mass/Vol] 8.8 mg/dL 8.5-10.1 [facility] Work Phone: Serum or plasma creatinine m easurement (mass/volume)on 10-30-2021 Creatinine [Mass/Vol] 0.86 mg/dL 0.70-1.30 [facility] Work Phone: Comment on above: The validity of the calculated GFR & GFRAA in patients over 70 years has not been determined. Clinical correlation is essential. Serum or plasma urea nitroge n measurement (mass/volume)on 10-30-2021 Urea nitrogen [Mass/Vol] 15 mg/dL 7-18 [facility] [place] Work Phone: Staphylococcus aureus DNA de tection by probe and target amplification methodon 10-30-2021 S. aureus DNA STEPHAN+probe Ql (Unsp spec) Negative Negative [facility] [place] Work Phone: Thin prep Papanicolaou smear with manual screeningon 10-30-2021 Thin prep Papanicolaou smear with manual screening 6 -15 [facility] [place] Work Phone: Gram stain for investigation of transfusion reactionon 10-16-2021 Microscopic observation Gram stain Nom (Unsp spec) [facility] [place] Work Phone: No Panel Informationon 10-16 Methicillin-Resist S.aureus DNA PCR Negative Negative [facility] [place] Work Phone: Staphylococcus aureus DNA de tection by probe and target amplification methodon 10-16-2021 S. aureus DNA STEPHAN+probe Ql (Unsp spec) Negative Negative [facility] [place] Work Phone: Absolute lymphocyte counton 10-02-2021 Lymphocytes Auto (Unsp spec) [#/Vol] 0.45 10*3/uL 0.83-4.51 [facility] [place] Work Phone: Basophil percentageon 2021 Basophil percentage 2.2 mg/dL 2.5-4.9 [facility] Work Phone: Basophils/100 WBC (Bld) 0.3 % 0-1 [facility] Work Phone: Chloride [Moles/Vol] 114 mmol/L 98-107 [facility] Work Phone: Eosinophils/100 WBC (Bld) 1.5 % 0-5 [facility] [place] Work Phone: Glucose [Mass/Vol] 98 mg/dL 74-106 [facility] Work Phone: Neutrophils (Bld) [#/Vol] 5.5 10*3/uL 2.0-7.7 [facility] [place] Work Phone: Neutrophils/100 WBC (Bld) 81.6 % 47-70 [facility] [place] Work Phone: [phone] Potassium [Moles/Vol] 4.0 mmol/L 3.5-5.1 [facility] Work [facility]: Sodium [Moles/Vol] 141 mmol/L 136-145 [facility] Work Phone: WBC (Bld) [#/Vol] 6.7 10*3/uL 4.4-11.0 [facility] Work Phone: [phone] Blood erythrocytes count (nu mber/volume)on 10-02-2021 RBC (Bld) [#/Vol] 3.51 10*6/uL 4.6-6.2 [facility] [place] Work Phone: Blood hemoglobin measurement (mass/volume)on 10-02-2021 Hemoglobin (Bld) [Mass/Vol] 11.3 g/dL 13.0-16.5 [facility] [place] Work Phone: Blood lymphocytes/100 leukoc yteson 10-02-2021 Lymphocytes/100 WBC (Bld) 6.7 % 19-41 [facility] [place] Work Phone: Blood monocytes/100 leukocyt eson 10-02-2021 Monocytes/100 WBC (Bld) 8.7 % 0-10 [facility] Work Phone: [phone] Blood platelet mean volumeon 10-02-2021 Platelet mean volume (Bld) [Entitic vol] 10.8 fL 6.2-12.0 [facility] [place] Work Phone: Determination of erythrocyte mean corpuscular volume (MCV)on 10-02-2021 MCV (RBC) [Entitic vol] 96.0 fL 80-94 [facility] Work Phone: Hematocrit Auto (Bld) [Volum e fraction]on 10-02-2021 Hematocrit (Bld) [Volume fraction] 33.7 % 40-54 [facility] [place] Work Phone: INR in Blood by Coagulation assayon 10-02-2021 INR Coag (Bld) [Relative time] 3.8 {INR} [facility] [place] Work Phone: Laboratory - Chemistry and C hemistry - challengeon 10-02-2021 CO2 [Moles/Vol] 23.0 mmol/L 21.0-32.0 [facility] [place] Work Phone: Urea nitrogen/Creatinine [Mass ratio] 20.4 mg/mg 10-20 [facility] [place] Work Phone: Laboratory - Coagulationon 0 10-02-2021 PT Coag (PPP) [Time] 36.8 s 11.7-14.9 [facility] Work Phone: Laboratory - Hematology and Cell countson 10-02-2021 Anisocytosis Ql (Bld) 1+ [facility] Work Phone: Erythrocyte distribution width (RBC) [Entitic vol] 53.1 fL 35.1-43.9 [facility] [place] Work Phone: Erythrocyte distribution width (RBC) [Ratio] 14.8 % 11.6-14.6 [facility] [place] Work Phone: Immature granulocytes/100 WBC (Bld) 1.200 % 0.0-0.9 [facility] [place] Work Phone: Comment on above: IG% - Immature Granu locytes (promyelocytes, myelocytes and metamyelocytes) > 1% indicates that a LEFT SHIFT is Present. MCH (RBC) [Entitic mass] 32.2 pg 27.0-32.0 [facility] [place] Work Phone: Nucleated RBC/100 WBC (Bld) [Ratio] 0 % 0-5 [facility] [place] Work Phone: MCHC Auto (RBC) [Mass/Vol]on 10-02-2021 MCHC (RBC) [Mass/Vol] 33.5 g/dL 32-36 [facility] Work Phone: Macrocytes detectionon 10-02 Macrocytes Ql (Bld) 1+ [facility] [place] Work Phone: No Panel Informationon 10-02 Estimated Creatinine Clearance Calc 76.67 ml/min [facility] [place] Work Phone: Estimated GFR (MDRD) Amer 162 mL/min >60 [facility] [place] Work Phone: Comment on above: GFR Calc Estimated GFR (MDRD) Non-Af Amer 134 mL/min >60 [facility] [place] Work Phone: Comment on above: Non- GFR Calc Platelets bldon 10-02-2021 Platelets (Bld) [#/Vol] 141 10*3/uL 150-450 [facility] [place] Work Phone: Serum or plasma calcium josephine urement (mass/volume)on 10-02-2021 Calcium [Mass/Vol] 7.6 mg/dL 8.5-10.1 [facility] Work Phone: Serum or plasma creatinine m easurement (mass/volume)on 10-02-2021 Creatinine [Mass/Vol] 0.64 mg/dL 0.70-1.30 [facility] Work Phone: Comment on above: The validity of the calculated GFR & GFRAA in patients over 70 years has not been determined. Clinical correlation is essential. Serum or plasma urea nitroge n measurement (mass/volume)on 10-02-2021 Urea nitrogen [Mass/Vol] 13 mg/dL 12-02 [facility] [place] Work Phone: Thin prep Papanicolaou smear with manual screeningon 10-02-2021 Thin prep Papanicolaou smear with manual screening 4 5-15 [facility] [place] Work Phone: Absolute lymphocyte counton 10-01-2021 Lymphocytes Auto (Unsp spec) [#/Vol] 1.52 10*3/uL 0.83-4.51 [facility] [place] Work Phone: Basophil percentageon 2021 Lactate [Moles/Vol] 1.6 mmol/L 0.4-2.0 [facility] Work Phone: Basophils/100 WBC (Bld) 0.4 % 0-1 [facility] Work Phone: Bilirubin [Mass/Vol] 0.60 mg/dL 0.20-1.00 [facility] Work Phone: Comment on above: For patients on eltr ombopag therapy, use of Dimension [place] TBIL is not recommended. Chloride [Moles/Vol] 107 mmol/L 98-107 [facility] Work Phone: Eosinophils/100 WBC (Bld) 1.9 % 0-5 [facility] [place] Work Phone: Glucose [Mass/Vol] 100 mg/dL 74-106 [facility] Work Phone: Comment on above: Fasting Glucose resu lt from 100 to 125 mg/dL suggests IMPAIRED HOMEOSTASIS per A.D.A. criteria. Neutrophils (Bld) [#/Vol] 6.0 10*3/uL 2.0-7.7 [facility] [place] Work Phone: Neutrophils/100 WBC (Bld) 67.9 % 47-70 [facility] [place] Work Phone: Potassium [Moles/Vol] 3.8 mmol/L 3.5-5.1 [facility] Work Phone: Protein [Mass/Vol] 7.2 g/dL 6.4-8.2 [facility] Work Phone: Sodium [Moles/Vol] 139 mmol/L 136-145 [facility] Work Phone: Testosterone [Mass/Vol] 376.03 ng/dL [facility] [place] Work Phone: Comment on above: CENTRAL 90% REFERENC E RANGES MALE AGE <50 197.44 - 669.58 ng/dL MALE AGE > or = 50 187.72 - 684.19 ng/dL FEMALE AGE <50 8.38 - 35.01 ng/dL FEMALE AGE > or = 50 <7.00 - 35.92 ng/dL Effective as of 12/11/20 WBC (Bld) [#/Vol] 8.9 10*3/uL 4.4-11.0 [facility] Work Phone: Blood erythrocytes count (nu mber/volume)on 10-01-2021 RBC (Bld) [#/Vol] 3.92 10*6/uL 4.6-6.2 [facility] Work Phone: Blood hemoglobin measurement (mass/volume)on 10-01-2021 Hemoglobin (Bld) [Mass/Vol] 12.7 g/dL 13.0-16.5 [facility] [place] Work Phone: Blood lymphocytes/100 leukoc yteson 10-01-2021 Lymphocytes/100 WBC (Bld) 17.0 % 19-41 [facility] [place] Work Phone: Blood manual differential co mment interpretation (narrative result)on 10-01-2021 Manual differential comment Norbert (Bld) [Interp] SCANNED [facility] [place] Work Phone: Blood monocytes/100 leukocyt eson 10-01-2021 Monocytes/100 WBC (Bld) 11.5 % 0-10 [facility] Work Phone: Blood platelet mean volumeon 10-01-2021 Platelet mean volume (Bld) [Entitic vol] 10.2 fL 6.2-12.0 [facility] [place] Work Phone: Determination of erythrocyte mean corpuscular volume (MCV)on 10-01-2021 MCV (RBC) [Entitic vol] 96.7 fL 80-94 [facility] Work Phone: Hematocrit Auto (Bld) [Volum e fraction]on 10-01-2021 Hematocrit (Bld) [Volume fraction] 37.9 % 40-54 [facility] [place] Work Phone: Laboratory - Chemistry and C hemistry - challengeon 10-01-2021 ALP [Catalytic activity/Vol] 69 U/L 45-117 [facility] [place] Work Phone: ALT [Catalytic activity/Vol] 31 U/L 16-61 [facility] [place] Work Phone: CO2 [Moles/Vol] 28.0 mmol/L 21.0-32.0 [facility] [place] Work Phone: Globulin (S) [Mass/Vol] 3.7 g/dL 2.2-4.2 [facility] Work Phone: Urea nitrogen/Creatinine [Mass ratio] 13.7 mg/mg 10-20 [facility] [place] Work Phone: Laboratory - Hematology and Cell countson 10-01-2021 Erythrocyte distribution width (RBC) [Entitic vol] 51.4 fL 35.1-43.9 [facility] [place] Work Phone: Erythrocyte distribution width (RBC) [Ratio] 14.6 % 11.6-14.6 [facility] [place] Work Phone: Immature granulocytes/100 WBC (Bld) 1.300 % 0.0-0.9 [facility] [place] Work Phone: Comment on above: IG% - Immature Granu locytes (promyelocytes, myelocytes and metamyelocytes) > 1% indicates that a LEFT SHIFT is Present. MCH (RBC) [Entitic mass] 32.4 pg 27.0-32.0 [facility] [place] Work Phone: Nucleated RBC/100 WBC (Bld) [Ratio] 0 % 0-5 [facility] [place] Work Phone: Laboratory - Microbiology an d Antimicrobial susceptibilityon 10-01-2021 Bacteria identified Cx Nom (Bld) No growth in 5 days. [facility] [place] Work Phone: MCHC Auto (RBC) [Mass/Vol]on 10-01-2021 MCHC (RBC) [Mass/Vol] 33.5 g/dL 32-36 [facility] Work Phone: No Panel Informationon 10-01 Troponin I High Sensitivity 24 pg/mL 3.0-78.0 [facility] [place] Work Phone: Comment on above: Please Note: New Hyun t Units and Gender Specific Reference Ranges. For more information see Policy Stat Procedure [place] High Sensitivity Troponin (TNIH) and attachments. SARS-CoV-2 & FLU Antigen (Rapid) [facility] [place] Work Phone: Estimated GFR (MDRD) Amer 112 mL/min >60 [facility] [place] Work Phone: Comment on above: GFR Calc Estimated GFR (MDRD) Non-Af Amer 92 mL/min >60 [facility] [place] Work Phone: Comment on above: Non- GFR Calc Thyroid Stimulating Hormone (TSH) 1.90 uIU/mL 0.358-3.74 [facility] [place] Work Phone: Vitamin D 25-Hydroxy 80.8 ng/mL [facility] Work Phone: Comment on above: Vitamin D 25(OH) Sta tus Range Deficiency <20 ng/mL (50nmol/L) Insufficiency 20 - 30 ng/mL (50 - 75 nmol/L) Sufficiency 30 - 100 ng/mL (75 - 250 nmol/L) Toxicity >100 ng/mL (>250 nmol/L) Platelets bldon 10-01-2021 Platelets (Bld) [#/Vol] 181 10*3/uL 150-450 [facility] [place] Work Phone: Serum or plasma albumin josephine urement (mass/volume)on 10-01-2021 Albumin [Mass/Vol] 3.5 g/dL 3.2-5.0 [facility] Work Phone: Serum or plasma albumin/glob ulin mass ratioon 10-01-2021 Albumin/Globulin [Mass ratio] 0.9 {ratio} 0.9-2.4 [facility] [place] Work Phone: Serum or plasma calcium josephine urement (mass/volume)on 10-01-2021 Calcium [Mass/Vol] 8.6 mg/dL 8.5-10.1 [facility] Work Phone: Serum or plasma creatinine m easurement (mass/volume)on 10-01-2021 Creatinine [Mass/Vol] 0.88 mg/dL 0.70-1.30 [facility] Work Phone: Comment on above: The validity of the calculated GFR & GFRAA in patients over 70 years has not been determined. Clinical correlation is essential. Serum or plasma urea nitroge n measurement (mass/volume)on 10-01-2021 Urea nitrogen [Mass/Vol] 12 mg/dL 7-18 [facility] [place] Work Phone: Thin prep Papanicolaou smear with manual screeningon 10-01-2021 Thin prep Papanicolaou smear with manual screening 30 U/L 15-37 [facility] [place] Work Phone: Thin prep Papanicolaou smear with manual screening 4 5-15 [facility] [place] Work Phone: INR in Blood by Coagulation assayon 09-23-2021 INR Coag (Bld) [Relative time] 2.3 {INR} [facility] [place] Work Phone: Laboratory - Coagulationon 0 09-23-2021 PT Coag (PPP) [Time] 25.1 s 11.7-14.9 [facility] Work Phone: Laboratory - Drug toxicology on 07-30-2021 Amphetamines Ql (U) Negative <1000 ng/mL [facility] [place] Work Phone: Benzodiazepines Ql (U) Negative < 200 ng/mL [facility] [place] Work Phone: Cannabinoids Screen Ql (U) Negative < 50 ng/mL [facility] [place] Work Phone: Cocaine Ql (U) Negative < 300 ng/mL [facility] [place] Work Phone: Opiates Ql (U) Positive < 300 ng/mL [facility] [place] Work Phone: No Panel Informationon 07-30 MDMA (Ecstasy) Screen Positive < 500 ng/mL [facility] [place] Work Phone: Miscellaneous Test See comment [facility] Work Phone: Comment on above: [id number] 6+OXYCODONE-B UND (ng/mL) DRUG RESULT SCREEN CUTOFF____ Amphetamines,Urine Negative ng/mL 1000 Amphetamine test includes Amphetamine and Methamphetamine.Barbiturates Negative ng/mL 200Benzodiazepines Negative ng/mL 200Cannabinoid Negative ng/mL 20Cocaine (Metab) Negative ng/mL 300Opiates Negative ng/mL 300 Opiates test includes Codeine, Morphine, Hydromorphone, Hydrocodone. Oxycodone/Oxymorphone,Urine Negative ng/mL 300 Test includes Oxydodone and Oxymorphone. TESTING PERFORMED AT [facility]. ORIGINAL REPORT ON FILE IN LAB CONTAINS ADDITIONAL TEST SITE INFORMATION. Urine Barbiturates Screen Negative < 200 ng/mL [facility] [place] Work Phone: Urine Drug Screen Comment [facility] [place] Work Phone: Comment on above: CONFIRMATORY TESTING FOR ALL POSITIVE URINE DRUG SCREENRESULTS WILL ONLY BE SENT OUT UPON PHYSICIAN ORDER. VISTA Urine Drug Screen methods provide only preliminaryanalytical test results. A more specific alternate chemicalmethod must be used in order to obtain a confirmedanalytical result. Gas chromatography/mass spectrometery(GC/MS) is the preferred confirmatory method. Clinicalconsideration and professional judgement should be appliedto any drug of abuse test result, particularly whenpreliminary positive results are used. URINE TCA TESTING MUST BE ORDERED SEPARATELY. USE TESTMNEMONIC: [facility] Urine Methadone Screen Negative < 300 ng/mL [facility] [place] Work Phone: Urine phencyclidine (PCP) de tectionon 07-30-2021 Phencyclidine Ql (U) Negative < 25 ng/mL [facility] Work Phone: Laboratory - Microbiology an d Antimicrobial susceptibilityon 07-22-2021 SARS-CoV-2 (COVID-19) RNA STEPHAN+probe Ql (Unsp spec) Not detected Not Detect [facility] [place] Work Phone: Comment on above: Normal Reference Ran ge: Not DetectedMethod:(RT-PCR) real-time reverse transcriptase PCRLuminex SensiGen Instrument*The Food and Drug Administration (FDA) has issued an Emergency Use Authorization (EAU) for the SensiGen SARS-CoV-2 Assay for the rapid detection of the virus that causes COVID-19. This test has been validated, but the FDAs independent review of this validation is pending.*Negative results do not preclude infection and should not be used as the sole basis for treatment or patient management. Optimum specimen types and timing for peak viral levels during infections caused by SARS-CoV-2 have not been determined. Collection of multiple specimens from the same patient may be necessary to detect the virus. The possibility of a false negative result should be considered if the patient has clinical presentation or has had recent exposure. No Panel Informationon 07-22 Influenza Types A,B Direct FA (EVER) [facility] [place] Work Phone: INR in Blood by Coagulation assayon 07-19-2021 INR Coag (Bld) [Relative time] 3.3 {INR} [facility] [place] Work Phone: Laboratory - Coagulationon 0 07-19-2021 PT Coag (PPP) [Time] 33.1 s 11.7-14.9 [facility] Work Phone: INR in Blood by Coagulation assayon 06-08-2021 INR Coag (Bld) [Relative time] 1.8 {INR} [facility] [place] Work Phone: Laboratory - Coagulationon 0 06-08-2021 PT Coag (PPP) [Time] 20.0 s 11.7-14.9 [facility] Work Phone: Basophil percentageon 2021 Bilirubin [Mass/Vol] 0.60 mg/dL 0.20-1.00 [facility] Work Phone: Comment on above: For patients on eltr ombopag therapy, use of Dimension [place] TBIL is not recommended. Chloride [Moles/Vol] 109 mmol/L 98-107 [facility] Work Phone: Glucose [Mass/Vol] 80 mg/dL 74-106 [facility] Work Phone: Potassium [Moles/Vol] 3.8 mmol/L 3.5-5.1 [facility] Work Phone: Protein [Mass/Vol] 6.2 g/dL 6.4-8.2 [facility] Work Phone: Sodium [Moles/Vol] 141 mmol/L 136-145 [facility] Work Phone: Laboratory - Chemistry and C hemistry - challengeon 06-06-2021 ALP [Catalytic activity/Vol] 45 U/L 45-117 [facility] [place] Work Phone: ALT [Catalytic activity/Vol] 31 U/L 16-61 [facility] [place] Work Phone: CO2 [Moles/Vol] 27.0 mmol/L 21.0-32.0 [facility] [place] Work Phone: Globulin (S) [Mass/Vol] 3.1 g/dL 2.2-4.2 [facility] Work Phone: Urea nitrogen/Creatinine [Mass ratio] 16.3 mg/mg 10-20 [facility] [place] Work Phone: No Panel Informationon 01-20 -2022 Estimated Creatinine Clearance Calc 74.41 ml/min [facility] [place] Work Phone: Estimated GFR (MDRD) Amer 137 mL/min >60 [facility] [place] Work Phone: Comment on above: GFR Calc Estimated GFR (MDRD) Non-Af Amer 113 mL/min >60 [facility] [place] Work Phone: Comment on above: Non- GFR Calc Serum or plasma albumin josephine urement (mass/volume)on 06-06-2021 Albumin [Mass/Vol] 3.1 g/dL 3.2-5.0 [facility] Work Phone: Serum or plasma albumin/glob ulin mass ratioon 06-06-2021 Albumin/Globulin [Mass ratio] 1.0 {ratio} 0.9-2.4 [facility] [place] Work Phone: Serum or plasma calcium josephine urement (mass/volume)on 06-06-2021 Calcium [Mass/Vol] 8.2 mg/dL 8.5-10.1 [facility] Work Phone: Serum or plasma creatinine m easurement (mass/volume)on 06-06-2021 Creatinine [Mass/Vol] 0.74 mg/dL 0.70-1.30 [facility] Work Phone: Comment on above: The validity of the calculated GFR & GFRAA in patients over 70 years has not been determined. Clinical correlation is essential. Serum or plasma urea nitroge n measurement (mass/volume)on 06-06-2021 Urea nitrogen [Mass/Vol] 12 mg/dL 7-18 [facility] [place] Work Phone: Thin prep Papanicolaou smear with manual screeningon 06-06-2021 Thin prep Papanicolaou smear with manual screening 30 U/L 15-37 [facility] [place] Work Phone: Thin prep Papanicolaou smear with manual screening 5 5-15 [facility] [place] Work Phone: Absolute lymphocyte counton 06-05-2021 Lymphocytes Auto (Unsp spec) [#/Vol] 1.66 10*3/uL 0.83-4.51 [facility] [place] Work Phone: Basophil percentageon 2021 Basophil percentage 3.1 mg/dL 2.5-4.9 [facility] Work Phone: Basophils/100 WBC (Bld) 0.5 % 0-1 [facility] Work Phone: Eosinophils/100 WBC (Bld) 1.4 % 0-5 [facility] [place] Work Phone: Neutrophils (Bld) [#/Vol] 5.6 10*3/uL 2.0-7.7 [facility] [place] Work Phone: Neutrophils/100 WBC (Bld) 68.7 % 47-70 [facility] [place] Work Phone: WBC (Bld) [#/Vol] 8.1 10*3/uL 4.4-11.0 [facility] Work Phone: [phone] Blood erythrocytes count (nu mber/volume)on 06-05-2021 RBC (Bld) [#/Vol] 3.74 10*6/uL 4.6-6.2 [facility] Work Phone: [phone] Blood hemoglobin measurement (mass/volume)on 06-05-2021 Hemoglobin (Bld) [Mass/Vol] 12.0 g/dL 13.0-16.5 [facility] [place] Work Phone: Blood lymphocytes/100 leukoc yteson 06-05-2021 Lymphocytes/100 WBC (Bld) 20.4 % 19-41 [facility] [place] Work Phone: Blood monocytes/100 leukocyt eson 06-05-2021 Monocytes/100 WBC (Bld) 8.3 % 0-10 [facility] Work Phone: Blood platelet mean volumeon 06-05-2021 Platelet mean volume (Bld) [Entitic vol] 11.0 fL 6.2-12.0 [facility] [place] Work Phone: [phone] Determination of erythrocyte mean corpuscular volume (MCV)on 06-05-2021 MCV (RBC) [Entitic vol] 96.3 fL 80-94 [facility] Work Phone: Hematocrit Auto (Bld) [Volum e fraction]on 06-05-2021 Hematocrit (Bld) [Volume fraction] 36.0 % 40-54 [facility] [place] Work Phone: Laboratory - Chemistry and C hemistry - challengeon 06-05-2021 Lipase [Catalytic activity/Vol] 56 U/L 73-393 [facility] [place] Work Phone: Magnesium [Mass/Vol] 1.9 mg/dL 1.6-2.6 [facility] Work Phone: Laboratory - Coagulationon 0 06-05-2021 aPTT Coag (Bld) [Time] 61.8 s 24.1-36.2 [facility] Work Phone: Laboratory - Drug toxicology on 06-05-2021 Amphetamines Ql (U) Negative [facility] Work Phone: Benzodiazepines Ql (U) Negative [facility] Work Phone: Cannabinoids Screen Ql (U) Negative [facility] [place] Work Phone: Cocaine Ql (U) Negative [facility] [place] Work Phone: Opiates Ql (U) Positive [facility] [place] Work Phone: Laboratory - Hematology and Cell countson 06-05-2021 Erythrocyte distribution width (RBC) [Entitic vol] 49.1 fL 35.1-43.9 [facility] [place] Work Phone: Erythrocyte distribution width (RBC) [Ratio] 14.0 % 11.6-14.6 [facility] [place] Work Phone: Immature granulocytes/100 WBC (Bld) 0.700 % 0.0-0.9 [facility] [place] Work Phone: Comment on above: IG% - Immature Granu locytes (promyelocytes, myelocytes and metamyelocytes) > 1% indicates that a LEFT SHIFT is Present. MCH (RBC) [Entitic mass] 32.1 pg 27.0-32.0 [facility] [place] Work Phone: Nucleated RBC/100 WBC (Bld) [Ratio] 0 % 0-5 [facility] [place] Work Phone: MCHC Auto (RBC) [Mass/Vol]on 06-05-2021 MCHC (RBC) [Mass/Vol] 33.3 g/dL 32-36 [facility] Work Phone: No Panel Informationon 06-05 Ethyl Alcohol Level 110.0 mg/dL [facility] Work Phone: Comment on above: The serum:whole bloo d ethanol ratio is approximately 1.14and varies slightly with hematocrit. Medical Alcohol reference interval and critical value innon-tolerant individuals; 50 - 100 Impairment 100 Intoxication 100 - 250 Severe Poisoning 250 - 400 Deep/possible fatal coma Urine Barbiturates Screen Negative [facility] [place] Work Phone: Urine Drug Screen Comment [facility] [place] Work Phone: Comment on above: CONFIRMATORY TESTING FOR ALL POSITIVE URINE DRUG SCREENRESULTS WILL ONLY BE SENT OUT UPON PHYSICIAN ORDER. VISTA Urine Drug Screen methods provide only preliminaryanalytical test results. A more specific alternate chemicalmethod must be used in order to obtain a confirmedanalytical result. Gas chromatography/mass spectrometery(GC/MS) is the preferred confirmatory method. Clinicalconsideration and professional judgement should be appliedto any drug of abuse test result, particularly whenpreliminary positive results are used. URINE TCA TESTING MUST BE ORDERED SEPARATELY. USE TESTMNEMONIC: [facility] Urine Methadone Screen Negative [facility] Work Phone: Urine Methamphetamine-MDMA Screen Positive [facility] [place] Work Phone: SARS-CoV-2 Antigen (Rapid) [facility] [place] Work Phone: Platelets bldon 06-05-2021 Platelets (Bld) [#/Vol] 183 10*3/uL 150-450 [facility] [place] Work Phone: Urine phencyclidine (PCP) de tectionon 06-05-2021 Phencyclidine Ql (U) Negative [facility] Work Phone: INR in Blood by Coagulation assayon 06-04-2021 INR Coag (Bld) [Relative time] 3.0 {INR} [facility] [place] Work Phone: Laboratory - Coagulationon 0 06-04-2021 PT Coag (PPP) [Time] 30.2 s 11.7-14.9 [facility] Work Phone: INR in Blood by Coagulation assayon 04-29-2021 INR Coag (Bld) [Relative time] 3.1 {INR} [facility] [place] Work Phone: Laboratory - Coagulationon 1 06-30-2020 PT Coag (PPP) [Time] 31.1 s 11.7-14.9 [facility] Work Phone: Laboratory - Microbiology an d Antimicrobial susceptibilityon 04-29-2021 SARS-CoV-2 (COVID-19) RNA STEPHAN+probe Ql (Unsp spec) Not detected Not Detect [facility] [place] Work Phone: Comment on above: Normal Reference Ran ge: Not DetectedMethod:(RT-PCR) real-time reverse transcriptase PCRLuminex JOSEPH Instrument*The Food and Drug Administration (FDA) has issued an Emergency Use Authorization (EAU) for the JOSEPH SARS-CoV-2 Assay for the rapid detection of the virus that causes COVID-19. This test has been validated, but the FDAs independent review of this validation is pending.*Negative results do not preclude infection and should not be used as the sole basis for treatment or patient management. Optimum specimen types and timing for peak viral levels during infections caused by SARS-CoV-2 have not been determined. Collection of multiple specimens from the same patient may be necessary to detect the virus. The possibility of a false negative result should be considered if the patient has clinical presentation or has had recent exposure. No Panel Informationon 04-29 Influenza Types A,B Direct FA (EVER) [facility] [place] Work Phone: Prothrombin Timeon 8 INR Coag RelTime (PPP) 0.93 s Normal 0.90-1.10 [facility] Comment on above: Result Comment: Guille [...] Myocardial Infarction Performed By: #### P T ####[address] [address] Prothrombin time (PT) Coag time (PPP) 9.4 s Normal 9.0-12.0 [facility] Comment on above: Performed By: #### P T ####[address] [address] Prothrombin Timeon 8 INR Coag RelTime (PPP) 1.15 s High 0.90-1.10 [facility] Comment on above: Result Comment: Guille [...] Myocardial Infarction Performed By: #### P T ####[address] [address] Prothrombin time (PT) Coag time (PPP) 11.6 s Normal 9.0-12.0 [facility] Comment on above: Performed By: #### P T ####[address] [address] Prothrombin Timeon 8 INR Coag RelTime (PPP) 1.64 s High 0.90-1.10 [facility] Comment on above: Result Comment: Guille [...] Myocardial Infarction Performed By: #### P T ####[place] [id number] Prothrombin time (PT) Coag time (PPP) 16.4 s High 9.0-12.0 [facility] Comment on above: Performed By: #### P T ####[place] [address] APTTon 11-20-2017 aPTT 63.6 s High 20.0-30.5 [facility] Comment on above: Result Comment: NOTE : The therapeutic time for Heparin anticoagulation,based on Xa activity inhibition, is an APTT of 46-80seconds. Performed By: #### A PTT ####[place] [address] Prothrombin Timeon 8 INR Coag RelTime (PPP) 3.98 s High 0.90-1.10 [facility] Comment on above: Result Comment: Guille [...] Myocardial Infarction Performed By: #### P T ####[place] [id number] Prothrombin time (PT) Coag time (PPP) 38.6 s High 9.0-12.0 [facility] Comment on above: Performed By: #### P T ####[place] [id number] CR Chest Portableon 11-20-19 18 CR Chest Portable Patient Name: CRUMLE Y, BRIANNE Diagnostic Radiology Exam Date/Time 11/19/2017 20:58:52 EDT Exam CR Chest Portable Ordering Physician CINDA MILLS DANIELLE C Accession Number [id number] CPT4 Codes 01687 () Reason For Exam cough Report SINGLE [...] Transcribed Date and Time: 11/19/2017 9:05 Normal [facility] Comp Metabolic Panelon 11-19 Alanine aminotransferase (ALT) 48 U/L Normal 13-69 [facility] Comment on above: Performed By: #### H EMDF, CMP3, ETOH4 ####[facility] [id number] [place], [place] Alkaline phosphatase (ALP) 83 U/L Normal 38-126 [facility] Comment on above: Performed By: #### H EMDF, CMP3, ETOH4 ####[facility] [employer] [id number] [place], [place] Anion gap 9 Normal [facility] Comment on above: Performed By: #### H EMDF, CMP3, ETOH4 ####[facility] [employer] [id number] [place], [place] Aspartate aminotransferase (AST) 61 U/L High 15-46 [facility] Comment on above: Performed By: #### H EMDF, CMP3, ETOH4 ####[facility] [employer] [id number] [place], [place] Bilirubin (total) 0.3 mg/dL Normal 0.2-1.3 [facility] Comment on above: Performed By: #### H EMDF, CMP3, ETOH4 ####[place] [address] [place] [address] Calcium 9.1 mg/dL Normal 8.4-10.4 [facility] Comment on above: Performed By: #### H EMDF, CMP3, ETOH4 ####[place] [place] [address] CO2 29 mmol/L Normal 22-30 [facility] Comment on above: Performed By: #### H EMDF, CMP3, ETOH4 ####[address] [place] [address] Glucose mass conc 66 mg/dL Low 70-100 [facility] Comment on above: Performed By: #### H EMDF, CMP3, ETOH4 ####[address] Protein 7.1 g/dL Normal 6.3-8.2 [facility] Comment on above: Performed By: #### H EMDF, CMP3, ETOH4 ####[address] [place] [address] Urea nitrogen 18 mg/dL Normal 7-20 [facility] Comment on above: Performed By: #### H EMDF, CMP3, ETOH4 ####[address] [address] Creatinine 1.11 mg/dL Normal 0.52-1.25 [facility] Comment on above: Performed By: #### H EMDF, CMP3, ETOH4 ####[address] [place] [address] eGFR (black) mL/min/{1.73_m2} Normal >60 [facility] Comment on above: Performed By: #### H EMDF, CMP3, ETOH4 ####[address] [place] [address] eGFR (non-black) mL/min/{1.73_m2} Normal >60 [facility] Comment on above: Result Comment: Sour ce- MDRD equation with creatinine calibration to IDMS(NKDEP) eGFR not recommended for drug dose adjustment Performed By: #### H EMDF, CMP3, ETOH4 ####[place] [address] [place], [place] Albumin 4.3 g/dL Normal 3.5-5.0 [facility] Comment on above: Performed By: #### H EMDF, CMP3, ETOH4 ####[place] [address] [place], [place] Chloride 104 mmol/L Normal 98-107 [facility] Comment on above: Performed By: #### H EMDF, CMP3, ETOH4 ####[place] [address] [place], [place] Potassium molar conc 3.9 mmol/L Normal 3.5-5.1 [facility] Comment on above: Performed By: #### H EMDF, CMP3, ETOH4 ####[place] [place], [place] Sodium 142 mmol/L Normal 137-145 [facility] Comment on above: Performed By: #### H EMDF, CMP3, ETOH4 ####[place] [place] [place], [place] Drugs of Abuseon 11-19-2017 Benzodiazepines, Ur Negative Normal [facility] Comment on above: Performed By: #### D RGA4 ####[place] [address] [facility] [place] Opiates, Ur Positive Normal [facility] Comment on above: Performed By: #### D RGA4 ####[place] [address] [address] [facility], [place] Phencyclidine (PCP), Ur Negative Normal [facility] Comment on above: Result Comment: The expected [...] non-forensic procedures. Performed By: #### D RGA4 ####[place] [place], [place] Methadone, Ur Negative Normal [facility] Comment on above: Performed By: #### D RGA4 ####[place] [place], [place] Cocaine, Ur Negative Normal [facility] Comment on above: Performed By: #### D RGA4 ####[place] [address] [address] [place], [place] Amphetamines, Ur Negative Normal [facility] Comment on above: Performed By: #### D RGA4 ####[address] [place], [place] Barbiturates, Ur Negative Normal [facility] Comment on above: Performed By: #### D RGA4 ####[place] [address] [address] [place], [place] Oxycodone/Oxymorphine,U r Negative Normal [facility] Comment on above: Performed By: #### D RGA4 ####[address] [place], [place] Ethanol Serum/Plasmaon 11-19 Ethanol-Serum/Plasma 0.054 g/dL High 0.000-0 .01 0 [facility] Comment on above: Result Comment: NOTE : This result is for medical treatment only. Analysis performed using non-forensic procedures. Performed By: #### H EMDF, CMP3, ETOH4 ####[place] [address] [place], [place] Hemogram w/ Autodiffon 11-19 Abs Baso Cnt 0.0 10*3/uL Normal 0.0-0.2 [facility] Comment on above: Performed By: #### H EMDF, CMP3, ETOH4 ####[address] [place], [place] Abs Neutrophile Cnt 4.3 10*3/uL Normal 1.8-7.0 [facility] Comment on above: Performed By: #### H EMDF, CMP3, ETOH4 ####[address] [address] Basophils/100 WBC Auto (Bld) 0.5 % Normal 0.0-2.0 [facility] Comment on above: Performed By: #### H EMDF, CMP3, ETOH4 ####[address] [address] Eosinophils 0.2 10*3/uL Normal 0.0-0.5 [facility] Comment on above: Performed By: #### H EMDF, CMP3, ETOH4 ####[address] [address] Eosinophils/100 leukocytes 3.0 % Normal 1.0-6.0 [facility] Comment on above: Performed By: #### H EMDF, CMP3, ETOH4 ####[address] [address] Erythrocyte distribution width Auto Ratio (RBC) 15.4 % High 11.5-14.5 [facility] Comment on above: Performed By: #### H EMDF, CMP3, ETOH4 ####[address] [address] Erythrocytes (RBC) 4.46 10*6/uL Normal 4.40-5.90 [facility] Comment on above: Performed By: #### H EMDF, CMP3, ETOH4 ####[address] [address] Granulocytes/100 WBC (Bld) 66.5 % Normal 40.0-80.0 [facility] Comment on above: Performed By: #### H EMDF, CMP3, ETOH4 ####[address] [address] Hematocrit (HCT) 43.3 % Normal 40.0-52.0 [facility] Comment on above: Performed By: #### H EMDF, CMP3, ETOH4 ####[address] [place], [place] Hemoglobin mass conc (Bld) 14.8 g/dL Normal 13.0-18.0 [facility] Comment on above: Performed By: #### H EMDF, CMP3, ETOH4 ####[address] [place] [address] Lymphocytes 1.2 10*3/uL Normal 1.0-4.3 [facility] Comment on above: Performed By: #### H EMDF, CMP3, ETOH4 ####[address] [place] [address] Lymphocytes/100 leukocytes 18.5 % Low 20.0-40.0 [facility] Comment on above: Performed By: #### H EMDF, CMP3, ETOH4 ####[address] MCH 33.1 pg Normal 26.0-34.0 [facility] Comment on above: Performed By: #### H EMDF, CMP3, ETOH4 ####[address] MCHC mass conc (RBC) 34.1 % Normal 32.0-36.0 [facility] Comment on above: Performed By: #### H EMDF, CMP3, ETOH4 ####[address] MCV 97.0 fL Normal 80.0-98.0 [facility] Comment on above: Performed By: #### H EMDF, CMP3, ETOH4 ####[address] Monocytes 0.8 10*3/uL Normal 0.0-0.8 [facility] Comment on above: Performed By: #### H EMDF, CMP3, ETOH4 ####[address] [address] Monocytes/100 leukocytes 11.5 % High 2.0-10.0 [facility] Comment on above: Performed By: #### H EMDF, CMP3, ETOH4 ####[employer] [id number] [place] [address] Platelet mean volume (PMV) 8.0 fL Normal 7.4-10.4 [facility] [employer] Comment on above: Performed By: #### H EMDF, CMP3, ETOH4 ####[id number] [place] [address] Platelets 161 10*3/uL Normal 140-440 [facility] [employer] Comment on above: Performed By: #### H EMDF, CMP3, ETOH4 ####[id number] 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 Left ventricular Ejection fraction 60 % Invalid Interpretation Code [facility] Work Phone: [phone] Coumadin Management: Warfari n Calcon 03-05-2017 INR Coag RelTime (Bld) 2 to 3 Invalid Interpretation Code [facility] Work Phone: [phone] INR Coag RelTime (Bld) Hospital lab Invalid Interpretation Code [facility] Work Phone: [phone] INR Coag RelTime (PPP) 1.4 {INR} Invalid Interpretation Code [facility] Work Phone: [phone] Prothrombin time (PT) Coag time (PPP) 16.2 s Invalid Interpretation Code [facility] Work Phone: [phone] Lab Report: Prothrombin Time w/INRon 03-05-2017 Prothrombin time (PT) Coag time (PPP) 16.2 s High 11.7-14.9 [facility] Work Phone: [phone] Office Visiton 09-29-2016 Documentation of current medications (procedure) Done Invalid Interpretation Code [facility] Work Phone: [phone] Office Visit: Follow up appo intmenton 08-21-2016 Fall risk assessment No Invalid Interpretation Code [email or web address] Work Phone: [phone] Smoking cessation education (procedure) yes Invalid Interpretation Code [email or web address] Work Phone: [phone] Tobacco smoking status NHIS Never Invalid Interpretation Code [email or web address] Work Phone: [phone] Tobacco use CPHS Current every day smoker Invali d Interpretation Code [facility] Phone: [phone] Office Visit: Follow up appo jeovannyon 06-16-2016 Adult depression screening assessment Adult depression screening assessment Invalid Interpretation Code [facility] Phone: [phone] Office Visit: New patient co nsulton 05-13-2016 Adult depression screening assessment Adult depression screening assessment Invalid Interpretation Code [facility]: [phone] Lab Report: ANTINUCLEAR ANTI BODIES DIRECTon 04-10-2016 GRISELDA Titer Negative Invalid Interpretation Code Negative [facility] Phone: [phone] Lab Report: Comprehensive Me tabolic Profilon 04-08-2016 Alanine aminotransferase (ALT) 23 U/L Invalid Interpretation Code 12-78 [email or web address] Work Phone: [phone] Albumin 3.8 g/dL Invalid Interpretation Code 3.4-5.0 [email or web address] Work Phone: [phone] Albumin/Globulin Ratio 1.1 {ratio} Invalid Interpretation Code 0.9-2.4 [facility]: [phone] Alkaline phosphatase (ALP) 66 U/L Invalid Interpretation Code 45-117 [email or web address] Work Phone: [phone] Anion gap 10 mmol/L Invalid Interpretation Code 5-15 [email or web address] Work Phone: [phone] Aspartate aminotransferase (AST) 18 U/L Invalid Interpretation Code 15-37 [facility]: [phone] Bilirubin (total) 0.40 mg/dL Invalid Interpretation Code 0.20-1.00 [email or web address] Work Phone: [phone] BUN/Creatinine Ratio 11.5 RATIO Invalid Interpretation Code 10-20 [email or web address] Work Phone: [phone] Calcium 8.7 mg/dL Invalid Interpretation Code 8.5-10.1 [email or web address] Work Phone: [phone] Chloride 105 mmol/L Invalid Interpretation Code 98-107 [email or web address] Work Phone: [phone] CO2 26.0 mmol/L Invalid Interpretation Code 21.0-32.0 [email or web address] Work Phone: [phone] Creatinine 1.13 mg/dL Invalid Interpretation Code 0.70-1.30 [email or web address] Work Phone: [phone] eGFR (non-black) 70 mL/min/{1.73_m2} Invalid Interpretation Code >60 [facility] Work Phone: [phone] eGFR (non-black) 85 mL/min/{1.73_m2} Invalid Interpretation Code >60 [email or web address] Work Phone: [phone] Globulin 3.5 g/dL Invalid Interpretation Code 2.3-3.5 [email or web address] Work Phone: [phone] Glucose mass conc 98 mg/dL Invalid Interpretation Code 70-110 [email or web address] Work Phone: [phone] Potassium molar conc 4.1 mmol/L Invalid Interpretation Code 3.5-5.1 [email or web address] Work Phone: [phone] Protein 7.3 g/dL Invalid Interpretation Code 6.4-8.2 [email or web address] Work Phone: [phone] Sodium 141 mmol/L Invalid Interpretation Code 136-145 [email or web address] Work Phone: [phone] Urea nitrogen 13 mg/dL Invalid Interpretation Code 7-18 [email or web address] Work Phone: [phone] Lab Report: Erythrocyte Sed Rateon 04-08-2016 Erythrocyte sedimentation rate 9 mm/h Invalid Interpretation Code 0-20 [email or web address] Work Phone: [phone]) Lab Report: Free T3on 2015 Triiodothyronine (T3) free 2.3 pg/mL Invalid Interpretation Code 2.18-3.98 [email or web address] Work Phone: [phone] Lab Report: Rheumatoid Facto carlos enrique 04-08-2016 rheumatoid factor < 10.0 Invalid Interpretation Code <15 [email or web address] Work Phone: [phone] Lab Report: T4 Free Directon 04-08-2016 Thyroxine (T4) free 1.12 ng/dL Invalid Interpretation Code 0.76-1.46 [facility] Work Phone: [phone] Replaced Document: (P) CBC W /Diff, Automatedon 04-08-2016 Absolute Neut 4.9 X10 3/UL Invalid Interpretation Code 2.0-7.7 [facility] Work Phone: [phone] Basophils/100 WBC Auto (Bld) 0.1 % Invalid Interpretation Code 0-1 [facility] Work Phone: [phone] Eosinophils/100 leukocytes 3.2 % Invalid Interpretation Code 0-5 [facility] Work Phone: [phone] Erythrocyte distribution width Auto Ratio (RBC) 13.1 % Invalid Interpretation Code 11.6-14.6 [facility] Work Phone: [phone] Erythrocytes (RBC) 4.52 10*6/uL Low 4.6-6.[address] [facility] Work Phone: [phone] Hematocrit (HCT) 42.3 % Invalid Interpretation Code 40-54 [facility] Work Phone: [phone] Hemoglobin mass conc (Bld) 14.0 g/dL Invalid Interpretation Code 13.0-16.5 [facility] Work Phone: [phone] Immature granulocytes/100 WBC (Bld) 0.100 % Invalid Interpretation Code 0.0-0.9 [facility] Work Phone: [phone] Lymphocytes 1.78 X10 3/UL Invalid Interpretation Code 0.83-4.51 [facility] Work Phone: [phone] Lymphocytes/100 leukocytes 23.5 % Invalid Interpretation Code 19-41 [facility] Work Phone: [phone] MCH 31.0 pg Invalid Interpretation Code 27.0-32.0 [facility] Work Phone: [phone] MCHC mass conc (RBC) 33.1 G/GL Invalid Interpretation Code 32-36 [facility] Work Phone: MCV 93.6 fL Invalid Interpretation Code 80-94 [facility] Work Phone: [phone] Monocytes/100 leukocytes 8.8 % Invalid Interpretation Code 0-10 [facility] Work Phone: Neutrophils/100 WBC Auto (Bld) 64.3 % Invalid Interpretation Code 47-70 [email or web address] Work Phone: [phone] Platelets 184 10*3/mm3 Invalid Interpretation Code 150-450 [email or web address] Work Phone: [phone] PMV by Tomer 10.9 fL Invalid Interpretation Code 6.2-12.0 [email or web address] Work Phone: [phone] RDW SD 44.8 fL High 35.1-43.9 [facility] Work Phone: [phone] WBC (Leukocytes) 7.6 10*3/uL Invalid Interpretation Code 4.4-11.0 [facility] Work Phone: [phone] Clinical Lists Update: 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 12-31-2015 Albumin/Globulin Ratio 1.1 {ratio} Invalid Interpretation Code [email or web address] Work Phone: [phone] Basophils Auto #/vol (Bld) 0.3 {Cells}/uL Invalid Interpretation Code [email or web address] Work Phone: [phone] eGFR (non-black) 83 mL/min/{1.73_m2} Invalid Interpretation Code [facility] Work Phone: [phone] eGFR (non-black) 100 mL/min/{1.73_m2} Invalid Interpretation Code [facility] Work Phone: [phone] Eosinophils 3.3 {Cells}/uL Invalid Interpretation Code [facility] Work Phone: [phone] Globulin 3.4 g/dL Invalid Interpretation Code [facility] Work Phone: [phone] Lymphocytes 24.0 10*3/uL Invalid Interpretation Code [facility] Work Phone: [phone] Monocytes 16.7 {Cells}/uL High [facility] Work Phone: [phone] Neutrophils 55.4 10*3/uL Invalid Interpretation Code [facility] Work Phone: [phone] Cholesterol 122 mg/dL Invalid Interpretation Code [facility] Work Phone: [phone] Cholesterol to HDL Ratio 2.0 {ratio} Invalid Interpretation Code [facility] Work Phone: [phone] HDL Cholesterol 62 mg/dL Invalid Interpretation Code [facility]: [phone] LDL Cholesterol 47 mg/dL Invalid Interpretation Code [facility] Phone: [phone] Triglyceride 62 mg/dL Invalid Interpretation Code [facility]: [phone] Office Visiton 07-12-2015 General cardiovascular disease 10Y risk [#] [place].D'Agostino 6 % Invalid Interpretation Code [facility] Phone: [phone] Clinical Lists Update: 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 03-07-2015 Thyroid stimulating hormone (TSH) 0.37 u[iU]/mL Invalid Interpretation Code [email or web address] Work Phone: [phone] very low density lipoproteins 22 mg/dL Invalid Interpretation Code [email or web address] Work Phone: [phone] Lab Report: CBC W/Diff, Auto matedon 01-02-2015 Anisocytosis presence 1+ Invalid Interpretation Code [facility]: [phone] SMEAR COMMENT SCANNED Invalid Interpretation Code [email or web address] Work Phone: [phone] Lab Report: CRPon 01-02-2015 C reactive protein (CRP) mg/L Invalid Interpretation Code 0.0-3.0 [facility] Phone: [phone] Replaced Document: (P) CBC W /Diff, Automatedon 01-02-2015 Absolute Neut 3.9 X10 3/UL Invalid Interpretation Code 2.0-7.7 [facility]: [phone] Lab Report: T3 Uptakeon 11-15 T3 UPTAKE 41 % High 33-40 [email or web address] Work Phone: [phone] T7 (FTI) Test not performed Invalid Interpretation Code 1.4-4.5 [facility]: [phone] Microbiology: Culture, Blood (WB)on 11-30-2014 Bacteria culture BCNo growth in 5 days. Invalid Interpretation Code [facility] Phone: Office Visiton 09-21-2014 cardiac risk group C Invalid Interpretation Code [facility] Phone: Replaced Document: Midmark E CG Observationson 09-21-2014 EKG QRS axis -74 deg Invalid Interpretation Code [facility] Work Phone: [phone] Interpretation Sinus Rhythm -Nonspe cific QRS widening and anterior fascicular block. - Nonspecific T-abnormality. ABNORMAL Invalid Interpretation Code [facility] Work Phone: [phone] P [place] 1 deg Invalid Interpretation Code [facility] Work Phone: [phone] Interval 0 ms Invalid Interpretation Code [facility] Work Phone: [phone] Pulse (Heart Rate) 95 /min Invalid Interpretation Code [facility] Work Phone: [phone] QRS Duration 126 ms Invalid Interpretation Code [facility] Work Phone: [phone] QT Interval new path ms Invalid Interpretation Code [facility] Work Phone: [phone] QTc [place] 451 ms Invalid Interpretation Code [facility] Work Phone: [phone] T [place] -23 deg Invalid Interpretation Code [facility] Work Phone: [phone] Replaced Document: Arielle Wilsonon 06-02-2012 Pulse (Heart Rate) 439 ms Invalid Interpretation Code [facility] Work Phone: [phone] Bacteria identified Cx Nom ( Wound) Wound Culture Presumptive C albicans [facility] Work Phone: Gram stain for investigation of transfusion reaction Microscopic observation Gram stain Nom (Unsp spec) [facility] Work Phone: Laboratory - Microbiology an d Antimicrobial susceptibility Bacteria identified Cx Nom (Bld) No growth in 5 days. [facility] Work Phone: No Panel Information Influenza Types A,B Direct FA (EVER) [facility] Work Phone: SARS-CoV-2 & FLU Antigen (Rapid) [facility] Work Phone: Vital Signs Date Time Vital Sign Value Performing Clinician Faci lity 03-09-2025 11:17-0400 Body height 175.3 cm Lance Hobbs MD Work Phone: [facility] 03-09-2025 11:17-0400 Body mass index (BMI) [Ratio] 20.88 kg/m2 Lance Hobbs MD Work Phone: [facility] 03-09-2025 11:17-0400 Body weight 64.14 kg Lance Hobbs MD Work Phone: [facility] 03-09-2025 11:17-0400 Diastolic blood pressure 68 mm[Hg] Lance Hobbs MD Work Phone: [facility] 03-09-2025 11:17-0400 Heart rate 70 /min Lance Hobbs MD Work Phone: [facility] 03-09-2025 11:17-0400 SaO2% (BldA) [Mass fraction] 91 % Lance Hobbs MD Work Phone: [facility] 03-09-2025 11:17-0400 Systolic blood pressure 116 mm[Hg] Lance Hobbs MD Work Phone: [facility] 12-28-2024 07:18-0400 Body mass index (BMI) [Ratio] 24.3 kg/m2 Dr. Fracisco Carvalho MD Work Phone: [facility] 12-28-2024 07:18-0400 Body weight 74.[address] Fracisco Carvalho MD Work Phone: [facility] 12-28-2024 07:18-0400 Diastolic blood pressure 74 mm[Hg] Dr. Fracisco Carvalho MD Work Phone: [facility] 12-28-2024 07:18-0400 Heart rate 70 /min Dr. Fracisco Carvalho MD Work Phone: [facility] 12-28-2024 07:18-0400 Respiratory rate 18 /min Dr. Fracisco Carvalho MD Work Phone: [facility] 12-28-2024 07:18-0400 SaO2% (BldA) [Mass fraction] 95 % Dr. Fracisco Carvalho MD Work Phone: [facility] 12-28-2024 07:18-0400 Systolic blood pressure 124 mm[Hg] Dr. Fracisco Carvalho MD Work Phone: [facility] 06-10-2024 11:08-0500 Body weight 70.49 kg Bruna North MD Work Phone: [facility] 06-10-2024 11:08-0500 Diastolic blood pressure 82 mm[Hg] Bruna North MD Work Phone: [facility] 06-10-2024 11:08-0500 Heart rate 35 /min Bruna North MD Work Phone: [facility] 06-10-2024 11:08-0500 SaO2% (BldA) [Mass fraction] 95 % Bruna North MD Work Phone: [facility] 06-10-2024 11:08-0500 Systolic blood pressure 136 mm[Hg] Bruna North MD Work Phone: [facility] 04-29-2024 09:12-0500 Body height 175.3 cm Mariana Reid MD Work Phone: [facility] 04-29-2024 09:12-0500 Body mass index (BMI) [Ratio] 24.22 kg/m2 Mariana Reid MD Work Phone: [facility] 04-29-2024 09:12-0500 Body weight 74.39 kg Mariana Reid MD Work Phone: [facility] 04-29-2024 09:12-0500 Diastolic blood pressure 63 mm[Hg] Mariana Reid MD Work Phone: [facility] 04-29-2024 09:12-0500 Heart rate 71 /min Mariana Reid MD Work Phone: [facility] 04-29-2024 09:12-0500 Systolic blood pressure 100 mm[Hg] Mariana Reid MD Work Phone: [facility] 03-11-2024 11:36-0400 Body height 175.3 cm Mariana Reid MD Work Phone: [facility] 03-11-2024 11:36-0400 Body mass index (BMI) [Ratio] 22.45 kg/m2 Mariana Reid MD Work Phone: [facility] 03-11-2024 11:36-0400 Body weight 68.95 kg Mariana Reid MD Work Phone: [facility] 03-11-2024 11:36-0400 Diastolic blood pressure 64 mm[Hg] Mariana Reid MD Work Phone: [facility] 03-11-2024 11:36-0400 Heart rate 76 /min Mariana Reid MD Work Phone: [facility] 03-11-2024 11:36-0400 Systolic blood pressure 109 mm[Hg] Mariana Reid MD Work Phone: [facility] 02-23-2024 14:50-0400 Body height 175.3 cm Lance Hobbs MD Work Phone: [facility] 02-23-2024 14:50-0400 Body mass index (BMI) [Ratio] 22.45 kg/m2 Lance Hobbs MD Work Phone: [facility] 02-23-2024 14:50-0400 Body weight 68.95 kg Lance Hobbs MD Work Phone: [facility] 02-23-2024 14:50-0400 Diastolic blood pressure 60 mm[Hg] Lance Hobbs MD Work Phone: [facility] 02-23-2024 14:50-0400 Heart rate 69 /min Lance Hobbs MD Work Phone: [facility] 02-23-2024 14:50-0400 SaO2% (BldA) [Mass fraction] 93 % Lance Hobbs MD Work Phone: [facility] 02-23-2024 14:50-0400 Systolic blood pressure 122 mm[Hg] Lance Hobbs MD Work Phone: [facility] 02-23-2024 13:40-0400 Body height 175.3 cm Delbert Stover MD Work Phone: [facility] 02-23-2024 13:40-0400 Body mass index (BMI) [Ratio] 22.59 kg/m2 Delbert Stover MD Work Phone: [facility] 02-23-2024 13:40-0400 Body temperature 97.3 [degF] Delbert Stover MD Work Phone: [facility] 02-23-2024 13:40-0400 Body weight 69.4 kg Delbert Stover MD Work Phone: [facility] 02-23-2024 13:40-0400 Diastolic blood pressure 63 mm[Hg] Delbert Stover MD Work Phone: [facility] 02-23-2024 13:40-0400 Heart rate 69 /min Delbert Stover MD Work Phone: [facility] 02-23-2024 13:40-0400 Systolic blood pressure 116 mm[Hg] Delbert Stover MD Work Phone: [facility] 01-22-2024 11:05-0400 Body height 177.8 cm Mariana Reid MD Work Phone: [facility] 01-22-2024 11:05-0400 Body mass index (BMI) [Ratio] 21.24 kg/m2 Mariana Reid MD Work Phone: [facility] 01-22-2024 11:05-0400 Body weight 67.13 kg Mariana Reid MD Work Phone: [facility] 01-22-2024 11:05-0400 Diastolic blood pressure 69 mm[Hg] Mariana Reid MD Work Phone: [facility] 01-22-2024 11:05-0400 Heart rate 71 /min Mariana Reid MD Work Phone: [facility] 01-22-2024 11:05-0400 Systolic blood pressure 115 mm[Hg] Mariana Reid MD Work Phone: [facility] 01-07-2024 12:00-0400 Body temperature 96.91 [degF] Myah Hennessy MD Work Phone: [facility] 01-07-2024 12:00-0400 Diastolic blood pressure 57 mm[Hg] Myah Hennessy MD Work Phone: [facility] 01-07-2024 12:00-0400 Heart rate 76 /min Myah Hennessy MD Work Phone: [facility] 01-07-2024 12:00-0400 Respiratory rate 16 /min Myah Henenssy MD Work Phone: [facility] 01-07-2024 12:00-0400 SaO2% (BldA) [Mass fraction] 92 % Myah Hennessy MD Work Phone: [facility] 01-07-2024 12:00-0400 Systolic blood pressure 110 mm[Hg] Myah Hennessy MD Work Phone: [facility] 01-07-2024 05:14-0400 Body mass index (BMI) [Ratio] 23.06 kg/m2 Myah Hennessy MD Work Phone: [facility] 01-07-2024 05:14-0400 Body weight 72.9 kg Myah Hennessy MD Work Phone: [facility] 01-02-2024 08:50-0400 Body height 177.8 cm Myah Hennessy MD Work Phone: [facility] 10-23-2023 10:13-0400 Body height 177.8 cm Lance Hobbs MD Work Phone: [facility] 10-23-2023 10:13-0400 Body mass index (BMI) [Ratio] 22.24 kg/m2 Lance Hobbs MD Work Phone: [facility] 10-23-2023 10:13-0400 Body weight 70.31 kg Lance Hobbs MD Work Phone: [facility] 10-23-2023 10:13-0400 Diastolic blood pressure 58 mm[Hg] Lance Hobbs MD Work Phone: [facility] 10-23-2023 10:13-0400 Heart rate 71 /min Lance Hobbs MD Work Phone: [facility] 10-23-2023 10:13-0400 SaO2% (BldA) [Mass fraction] 94 % Lance Hobbs MD Work Phone: [facility] 10-23-2023 10:13-0400 Systolic blood pressure 82 mm[Hg] Lance Hobbs MD Work Phone: [facility] 09-25-2023 07:49-0400 Body temperature 97.5 [degF] Dr. Fracisco Carvalho Work Phone: [facility] 09-25-2023 07:49-0400 Diastolic blood pressure 76 mm[Hg] Dr. Fracisco Carvalho Work Phone: [facility] 09-25-2023 07:49-0400 Heart rate 82 /min Dr. Fracisco Carvalho Work Phone: [facility] 09-25-2023 07:49-0400 Respiratory rate 16 /min Dr. Fracisco Carvalho Work Phone: [facility] 09-25-2023 07:49-0400 SaO2% (BldA) [Mass fraction] 93 % Dr. Fracisco Carvalho Work Phone: [facility] 09-25-2023 07:49-0400 Systolic blood pressure 109 mm[Hg] Dr. Fracisco Carvalho Work Phone: [facility] 09-25-2023 03:23-0400 Body height 175.[address] Fracisco Carvalho Work Phone: [facility] 09-25-2023 03:23-0400 Body mass index (BMI) [Ratio] 22.6 kg/m2 Dr. Fracisco Carvalho Work Phone: [facility] 09-25-2023 03:23-0400 Body weight 69.[address] Fracisco Carvalho Work Phone: [facility] 09-15-2023 22:36-0400 Body mass index (BMI) [Ratio] 23.1 kg/m2 Dr. Fracisco Carvalho Work Phone: [facility] 09-10-2023 10:08-0400 Body height 172.7 cm Gabi Leonardo APRN - FEATHERER Work Phone: [facility] 09-10-2023 10:08-0400 Body mass index (BMI) [Ratio] 22.99 kg/m2 Gabi Leonardo CONTINUOUS LINTER DRIER OPERATOR - FEATHERER Work Phone: [facility] 09-10-2023 10:08-0400 Body weight 68.58 kg Gabi Leonardo CONTINUOUS LINTER DRIER OPERATOR - FEATHERER Work Phone: [facility] 09-10-2023 10:08-0400 Diastolic blood pressure 62 mm[Hg] Gabi Leonardo APRN - FEATHERER Work Phone: [facility] 09-10-2023 10:08-0400 Heart rate 70 /min Gabi Leonardo APRN - FEATHERER Work Phone: [facility] 09-10-2023 10:08-0400 SaO2% (BldA) [Mass fraction] 93 % Gabi Leonardo CONTINUOUS LINTER DRIER OPERATOR - FEATHERER Work Phone: [facility] 09-10-2023 10:08-0400 Systolic blood pressure 110 mm[Hg] Gabi Leonardo CONTINUOUS LINTER DRIER OPERATOR - FEATHERER Work Phone: [facility] 09-10-2023 09:04-0400 Body height 177.8 cm Josephine Lees CONTINUOUS LINTER DRIER OPERATOR - FEATHERER Work Phone: [facility] 09-10-2023 09:04-0400 Body mass index (BMI) [Ratio] 21.52 kg/m2 Josephien Lees CONTINUOUS LINTER DRIER OPERATOR - FEATHERER Work Phone: [facility] 09-10-2023 09:04-0400 Body weight 68.04 kg Josephine Lees CONTINUOUS LINTER DRIER OPERATOR - FEATHERER Work Phone: [facility] 09-03-2023 09:35-0400 Body height 172.7 cm Gabi Leonardo APRN - FEATHERER Work Phone: [facility] 09-03-2023 09:35-0400 Body mass index (BMI) [Ratio] 23.42 kg/m2 Gabi Wagnerel CONTINUOUS LINTER DRIER OPERATOR - FEATHERER Work Phone: [facility] 09-03-2023 09:35-0400 Body weight 69.85 kg Gabi Leonardo CONTINUOUS LINTER DRIER OPERATOR - FEATHERER Work Phone: [facility] 09-03-2023 09:35-0400 Diastolic blood pressure 68 mm[Hg] Gabi Leonardo CONTINUOUS LINTER DRIER OPERATOR - FEATHERER Work Phone: [facility] 09-03-2023 09:35-0400 Heart rate 70 /min Gabi Leonardo CONTINUOUS LINTER DRIER OPERATOR - FEATHERER Work Phone: [facility] 09-03-2023 09:35-0400 SaO2% (BldA) [Mass fraction] 99 % Gabi Leonardo CONTINUOUS LINTER DRIER OPERATOR - FEATHERER Work Phone: [facility] 09-03-2023 09:35-0400 Systolic blood pressure 98 mm[Hg] Gabi Wagnerelia GUTIERREZN - FEATHERER Work Phone: [facility] 08-24-2023 09:29-0400 Diastolic Blood Pressure Non-Invasive 75 mm[Hg] DR KEL IRBY MD [facility] 08-24-2023 09:29-0400 Heart rate 79 /min DR KEL IRBY MD [facility] 08-24-2023 09:29-0400 Respiratory rate 18 /min DR KEL IRBY MD [facility] 08-24-2023 09:29-0400 Systolic Blood Pressure Non-Invasive 115 mm[Hg] DR KEL IRBY MD [facility] 08-24-2023 09:02-0400 Diastolic Blood Pressure Non-Invasive 68 mm[Hg] DR KEL IRBY MD [facility] 08-24-2023 09:02-0400 Heart rate 79 /min DR KEL IRBY MD [facility] 08-24-2023 09:02-0400 Respiratory rate 12 /min DR KEL IRBY MD [facility] 08-24-2023 09:02-0400 Systolic Blood Pressure Non-Invasive 101 mm[Hg] DR KEL IRBY MD [facility] 08-24-2023 08:57-0400 Diastolic Blood Pressure Non-Invasive 67 mm[Hg] DR KEL IRBY MD [facility] 08-24-2023 08:57-0400 Heart rate 78 /min DR KEL IRBY MD [facility] 08-24-2023 08:57-0400 Respiratory rate 17 /min DR KEL IRBY MD [facility] 08-24-2023 08:57-0400 Systolic Blood Pressure Non-Invasive 104 mm[Hg] DR KEL IRBY MD [facility] 08-24-2023 08:45-0400 Body temperature 98.42 [degF] DR KEL IRBY MD [facility] 08-24-2023 08:35-0400 Respiratory Rate - Anes 5 br/min DR KEL IRBY MD [facility] 08-24-2023 08:30-0400 Respiratory Rate - Anes 17 br/min DR KEL IRBY MD [facility] 08-24-2023 08:25-0400 Respiratory Rate - Anes 16 br/min DR KEL IRBY MD [facility] 08-24-2023 07:55-0400 Body height 177.[address] KEL IRBY MD [facility] 08-24-2023 07:55-0400 Body temperature 97.7 [degF] DR KEL IRBY MD [facility] 08-24-2023 07:55-0400 Body weight 68.[address] KEL IRBY MD [facility] 08-24-2023 07:55-0400 Heart rate 82 /min DR KEL IRBY MD [facility] 08-15-2023 21:33-0400 Body mass index (BMI) [Ratio] 23.1 kg/m2 Dr. Fracisco Carvalho Work Phone: [facility] 08-13-2023 08:24-0400 Body height 180.[address] Fracisco Carvalho Work Phone: [facility] 08-13-2023 08:24-0400 Body mass index (BMI) [Ratio] 20.7 kg/m2 Dr. Fracisco Carvalho Work Phone: [facility] [facility] [place] 08-13-2023 08:24-0400 Body weight 67.[address] Fracisco Carvalho Work Phone: [facility] [place] 08-13-2023 08:24-0400 Diastolic blood pressure 79 mm[Hg] Dr. Fracisco Carvalho Work Phone: [facility] [place] 08-13-2023 08:24-0400 Heart rate 67 /min Dr. Fracisco Carvalho Work Phone: [facility] [place] 08-13-2023 08:24-0400 Respiratory rate 18 /min Dr. Fracisco Carvalho Work Phone: [facility] [place] 08-13-2023 08:24-0400 SaO2% (BldA) [Mass fraction] 99 % Dr. Fracisco Carvalho Work Phone: [facility] [place] 08-13-2023 08:24-0400 Systolic blood pressure 129 mm[Hg] Dr. Fracisco Carvalho Work Phone: [facility] [place] 08-06-2023 09:12-0400 Body height 177.8 cm Gabi Leonardo CONTINUOUS LINTER DRIER OPERATOR - FEATHERER Work Phone: [facility] [employer] 08-06-2023 09:12-0400 Body mass index (BMI) [Ratio] 20.86 kg/m2 Gabi Leonardo CONTINUOUS LINTER DRIER OPERATOR - FEATHERER Work Phone: [facility] 08-06-2023 09:12-0400 Body weight 65.95 kg Gabi Leonardo CONTINUOUS LINTER DRIER OPERATOR - FEATHERER Work Phone: [facility] 08-06-2023 09:12-0400 Diastolic blood pressure 68 mm[Hg] Gabi Leonardo CONTINUOUS LINTER DRIER OPERATOR - FEATHERER Work Phone: [facility] 08-06-2023 09:12-0400 Heart rate 70 /min Gabi Leonardo CONTINUOUS LINTER DRIER OPERATOR - FEATHERER Work Phone: [facility] 08-06-2023 09:12-0400 SaO2% (BldA) [Mass fraction] 97 % Gabi Leonardo CONTINUOUS LINTER DRIER OPERATOR - FEATHERER Work Phone: [facility] 08-06-2023 09:12-0400 Systolic blood pressure 112 mm[Hg] Gabi Leonardo CONTINUOUS LINTER DRIER OPERATOR - FEATHERER Work Phone: [facility] 07-30-2023 08:15-0400 Body temperature 97.5 [degF] Shaw Glover Work Phone: [facility] 07-30-2023 08:15-0400 Diastolic blood pressure 63 mm[Hg] Shaw Nicholas MD Work Phone: [facility] 07-30-2023 08:15-0400 Heart rate 70 /min Shaw Glover Work Phone: [facility] 07-30-2023 08:15-0400 Respiratory rate 18 /min Shaw Glover Work Phone: [facility] 07-30-2023 08:15-0400 SaO2% (BldA) [Mass fraction] 96 % Shaw Nicholas MD Work Phone: [facility] 07-30-2023 08:15-0400 Systolic blood pressure 116 mm[Hg] Shaw Nicholas MD Work Phone: [facility] 07-30-2023 06:53-0400 Body height 177.8 cm Shaw Glover Work Phone: [facility] 07-30-2023 06:00-0400 Body mass index (BMI) [Ratio] 20.95 kg/m2 Shaw Nicholas MD Work Phone: [facility] 07-30-2023 06:00-0400 Body weight 66.22 kg Shaw Glover Work Phone: [facility] 07-16-2023 22:12-0500 Body mass index (BMI) [Ratio] 23.1 kg/m2 [facility] [place] 07-16-2023 08:19-0500 Body height 177.8 cm Gabi Leonardo APRN - FEATHERER Work Phone: [facility] 07-16-2023 08:19-0500 Body mass index (BMI) [Ratio] 21.12 kg/m2 Gabi Leonardo APRN - FEATHERER Work Phone: [facility] 07-16-2023 08:19-0500 Body weight 66.77 kg Gabi Leonardo APRN - FEATHERER Work Phone: [facility] 07-16-2023 08:19-0500 Diastolic blood pressure 64 mm[Hg] Gabi Leonardo APRN - FEATHERER Work Phone: [facility] 07-16-2023 08:19-0500 Heart rate 70 /min Gabi Shaikh CNP Work Phone: [facility] 07-16-2023 08:19-0500 SaO2% (BldA) [Mass fraction] 95 % Gabi Leonardo APRN - FEATHERER Work Phone: [facility] 07-16-2023 08:19-0500 Systolic blood pressure 90 mm[Hg] Gabi Leonardo APRN - FEATHERER Work Phone: [employer] 06-17-2023 21:44-0500 Body mass index (BMI) [Ratio] 23.1 kg/m2 [facility] [place] 06-09-2023 12:47-0500 Body height 177.8 cm Bronson Dove DO Work Phone: [employer] 06-09-2023 12:47-0500 Body mass index (BMI) [Ratio] 20.88 kg/m2 Bronson Dove DO Work Phone: [employer] 06-09-2023 12:47-0500 Body weight 66 kg Bronson Dove DO Work Phone: [employer] [facility] 06-09-2023 12:47-0500 Diastolic blood pressure 62 mm[Hg] Bronson Dove DO Work Phone: [employer] [facility] 06-09-2023 12:47-0500 Heart rate 70 /min Bronson Dove DO Work Phone: [employer] 06-09-2023 12:47-0500 Systolic blood pressure 108 mm[Hg] Bronson Dove DO Work Phone: [employer] [facility] 06-09-2023 12:07-0500 Body height 177.8 cm Shaw Glover Work Phone: [employer] 06-09-2023 12:07-0500 Body mass index (BMI) [Ratio] 20.89 kg/m2 Shaw Nicholas MD Work Phone: [employer] [facility] 06-09-2023 12:07-0500 Body weight 66.04 kg Shaw Glover Work Phone: [employer] 06-09-2023 12:07-0500 Diastolic blood pressure 62 mm[Hg] Shaw Nicholas MD Work Phone: [employer] 06-09-2023 12:07-0500 Heart rate 70 /min Shaw Glover Work Phone: [facility] 06-09-2023 12:07-0500 Systolic blood pressure 108 mm[Hg] Shaw Nicholas MD Work Phone: [facility] 05-29-2023 15:30-0500 Diastolic blood pressure 62 mm[Hg] Arthur Carvalho MD Work Phone: [facility] 05-29-2023 15:30-0500 Heart rate 70 /min Arthur Carvalho MD Work Phone: [facility] 05-29-2023 15:30-0500 Respiratory rate 18 /min Arthur Carvalho MD Work Phone: [facility] 05-29-2023 15:30-0500 Systolic blood pressure 104 mm[Hg] Arthur Carvalho MD Work Phone: [facility] 05-29-2023 14:39-0500 Body temperature 98.6 [degF] Arthur Carvalho MD Work Phone: [facility] 05-29-2023 14:35-0500 Body mass index (BMI) [Ratio] 21.38 kg/m2 Arthur Carvalho MD Work Phone: [facility] 05-29-2023 14:35-0500 Body weight 67.59 kg Arthur Carvalho MD Work Phone: [facility] 05-29-2023 13:54-0500 SaO2% (BldA) [Mass fraction] 92 % Arthur Carvalho MD Work Phone: [facility] 05-29-2023 13:25-0500 Body height 177.8 cm Arthur Carvalho MD Work Phone: [facility] 05-25-2023 10:15-0500 Diastolic blood pressure 80 mm[Hg] Lance Hobbs MD Work Phone: [facility] 05-25-2023 10:15-0500 Heart rate 70 /min Lance Hobbs MD Work Phone: [employer] [facility] 05-25-2023 10:15-0500 Respiratory rate 18 /min Lance Hobbs MD Work Phone: [facility] 05-25-2023 10:15-0500 Systolic blood pressure 127 mm[Hg] Lance Hobbs MD Work Phone: [facility] 05-25-2023 09:42-0500 Body temperature 97.5 [degF] Lance Hobbs MD Work Phone: [facility] 05-25-2023 07:15-0500 SaO2% (BldA) [Mass fraction] 96 % Lance Hobbs MD Work Phone: [facility] 05-17-2023 20:56-0500 Body mass index (BMI) [Ratio] 23.1 kg/m2 Dr. Fracisco Carvalho Work Phone: [facility] [place] 04-30-2023 13:45-0500 Body height 177.8 cm Lance Hobbs MD Work Phone: [facility] 04-30-2023 13:45-0500 Body mass index (BMI) [Ratio] 21.38 kg/m2 Lance Hobbs MD Work Phone: [facility] 04-30-2023 13:45-0500 Body weight 67.59 kg Lance Hobbs MD Work Phone: [facility] 04-30-2023 13:45-0500 Diastolic blood pressure 70 mm[Hg] Lance Hobbs MD Work Phone: [facility] 04-30-2023 13:45-0500 Heart rate 70 /min Lance Hobbs MD Work Phone: [facility] 04-30-2023 13:45-0500 SaO2% (BldA) [Mass fraction] 97 % Lance Hobbs MD Work Phone: [facility] 04-30-2023 13:45-0500 Systolic blood pressure 116 mm[Hg] Lance Hobbs MD Work Phone: [facility] 04-29-2023 13:19-0500 Body temperature 97.9 [degF] Dr. Fracisco Carvalho Work Phone: 5(283)550-708611 [place] [address] 04-29-2023 13:19-0500 Diastolic blood pressure 78 mm[Hg] Dr. Fracisco Carvalho Work Phone: 1(689)919-763811 [place] [address] 04-29-2023 13:19-0500 Heart rate 64 /min Dr. Fracisco Carvalho Work Phone: 8(340)396-232711 [place] [address] 04-29-2023 13:19-0500 Respiratory rate 14 /min Dr. Fracisco Carvalho Work Phone: 1(346)027-572790 [place] [address] 04-29-2023 13:19-0500 SaO2% (BldA) [Mass fraction] 99 % Dr. Fracisco Carvalho Work Phone: 0(333)892-455911 [place] [address] 04-29-2023 13:19-0500 Systolic blood pressure 128 mm[Hg] Dr. Fracisco Carvalho Work Phone: 8(534)274-682690 [place] [address] 04-29-2023 12:19-0500 Body height 180.[address] Fracisco Carvalho Work Phone: 9(841)722-581890 [place] [address] 04-29-2023 12:19-0500 Body mass index (BMI) [Ratio] 20.7 kg/m2 Dr. Fracisco Carvalho Work Phone: 7(664)802-049190 [place] [address] 04-29-2023 12:19-0500 Body weight 67.[address] Fracisco Carvalho Work Phone: 7(544)372-118190 [place] [address] 03-17-2023 22:47-0400 Body mass index (BMI) [Ratio] 23.1 kg/m2 Dr. Fracisco Carvalho Work Phone: 7(327)413-468390 [place] [address] 02-13-2023 08:34-0400 Body height 177.[address] Fracisco Carvalho Work Phone: 4(470)338-480090 [place] [address] 02-13-2023 08:34-0400 Body mass index (BMI) [Ratio] 22.4 kg/m2 Dr. Fracisco Carvalho Work Phone: 5(838)803-555590 [place] [address] 02-13-2023 08:34-0400 Body weight 70.[address] Fracisco Carvalho Work Phone: 4(745)400-596090 [place] [address] 02-13-2023 08:34-0400 Diastolic blood pressure 79 mm[Hg] Dr. Fracisco Carvalho Work Phone: [facility] [place] 02-13-2023 08:34-0400 Heart rate 69 /min Dr. Fracisco Carvalho Work Phone: [facility] [place] 02-13-2023 08:34-0400 Respiratory rate 18 /min Dr. Fracisco Carvalho Work Phone: [facility] [place] 02-13-2023 08:34-0400 SaO2% (BldA) [Mass fraction] 95 % Dr. Fracisco Carvalho Work Phone: [facility] [place] 02-13-2023 08:34-0400 Systolic blood pressure 130 mm[Hg] Dr. Fracisco Carvalho Work Phone: [facility] [place] 12-16-2022 00:12-0400 Body mass index (BMI) [Ratio] 23.1 kg/m2 Dr. Fracisco Carvalho Work Phone: [facility] [place] 08-15-2022 21:34-0400 Body mass index (BMI) [Ratio] 23.1 kg/m2 [facility] [place] 08-12-2022 08:28-0400 Body height 177.[address] Fracisco Carvalho Work Phone: [facility] [place] 08-12-2022 08:28-0400 Body mass index (BMI) [Ratio] 22.2 kg/m2 Dr. Fracisco Carvalho Work Phone: [facility] [place] 08-12-2022 08:28-0400 Body weight 70.[address] Fracisco Carvalho Work Phone: [facility] [place] 08-12-2022 08:28-0400 Diastolic blood pressure 79 mm[Hg] Dr. Fracisco Carvalho Work Phone: [facility] [place] 08-12-2022 08:28-0400 Heart rate 72 /min Dr. Fracisco Carvalho Work Phone: [facility] [place] 08-12-2022 08:28-0400 Respiratory rate 18 /min Dr. Fracisco Carvalho Work Phone: [facility] [place] 08-12-2022 08:28-0400 SaO2% (BldA) [Mass fraction] 98 % Dr. Fracisco Carvalho Work Phone: [facility] [place] 08-12-2022 08:28-0400 Systolic blood pressure 133 mm[Hg] Dr. Fracisco Carvalho Work Phone: [facility] [place] 05-17-2022 22:54-0500 Body mass index (BMI) [Ratio] 23.1 kg/m2 Dr. Fracisco Carvalho Work Phone: [facility] [place] 03-18-2022 10:09-0400 Body mass index (BMI) [Ratio] 23.1 kg/m2 Dr. Fracisco Carvalho Work Phone: [facility] [place] 01-31-2022 10:27-0400 Body height 177.[address] Fracisco Carvalho Work Phone: [facility] [place] Work Phone: 01-31-2022 10:27-0400 Body mass index (BMI) [Ratio] 22.9 kg/m2 Dr. Fracisco Carvalho Work Phone: [facility] [place] Work Phone: 01-31-2022 10:27-0400 Body weight 72.[address] Fracisco Carvalho Work Phone: [facility] [place] Work Phone: 01-31-2022 10:27-0400 Diastolic blood pressure 68 mm[Hg] Dr. Fracisco Carvalho Work Phone: [facility] [place] Work Phone: 01-31-2022 10:27-0400 Heart rate 72 /min Dr. Fracisco Carvalho Work Phone: [facility] [place] Work Phone: 01-31-2022 10:27-0400 Respiratory rate 16 /min Dr. Fracisco Carvalho Work Phone: [facility] [place] Work Phone: 01-31-2022 10:27-0400 Systolic blood pressure 118 mm[Hg] Dr. Fracisco Carvalho Work Phone: [facility] [place] Work Phone: 01-07-2022 10:26-0400 Body temperature 97.8 [degF] Dr. Fracisco Carvalho Work Phone: [facility] [place] Work Phone: 01-07-2022 10:26-0400 Diastolic blood pressure 78 mm[Hg] Dr. Fracisco Carvalho Work Phone: [facility] [place] Work Phone: 01-07-2022 10:26-0400 Heart rate 70 /min Dr. Fracisco Carvalho Work Phone: [facility] [place] Work Phone: 01-07-2022 10:26-0400 Respiratory rate 18 /min Dr. Fracisco Carvalho Work Phone: [facility] [place] Work Phone: 01-07-2022 10:26-0400 Systolic blood pressure 135 mm[Hg] Dr. Fracisco Carvalho Work Phone: [facility] [place] Work Phone: 12-03-2021 09:58-0400 Body temperature 98.2 [degF] Dr. Fracisco Carvalho Work Phone: [facility] [place] Work Phone: 12-03-2021 09:58-0400 Diastolic blood pressure 72 mm[Hg] Dr. Fracisco Carvalho Work Phone: [facility] [place] Work Phone: 12-03-2021 09:58-0400 Respiratory rate 18 /min Dr. Fracisco Carvalho Work Phone: [facility] [place] Work Phone: 12-03-2021 09:58-0400 Systolic blood pressure 140 mm[Hg] Dr. Fracisco Carvalho Work Phone: [facility] [place] Work Phone: 11-19-2021 12:41-0400 Heart rate 68 /min Dr. Fracisco Carvalho Work Phone: [facility] [place] Work Phone: 11-15-2021 06:45-0400 Body mass index (BMI) [Ratio] 23.1 kg/m2 Dr. Fracisco Carvalho Work Phone: [facility] [place] Work Phone: 11-12-2021 09:15-0400 Body temperature 97.4 [degF] Dr. Fracisco Carvalho Work Phone: [facility] [place] Work Phone: 11-12-2021 09:15-0400 Diastolic blood pressure 80 mm[Hg] Dr. Fracisco Carvalho Work Phone: [facility] [place] Work Phone: 11-12-2021 09:15-0400 Heart rate 69 /min Dr. Fracisco Carvalho Work Phone: [facility] [place] Work Phone: 11-12-2021 09:15-0400 Respiratory rate 16 /min Dr. Fracisco Carvalho Work Phone: [facility] [place] Work Phone: 11-12-2021 09:15-0400 Systolic blood pressure 144 mm[Hg] Dr. Fracisco Carvalho Work Phone: [facility] [place] Work Phone: 10-31-2021 10:02-0400 Body height 177.[address] Fracisco Carvalho Work Phone: [facility] [place] Work Phone: 10-31-2021 10:02-0400 Body mass index (BMI) [Ratio] 23.3 kg/m2 Dr. Fracisco Carvalho Work Phone: [facility] [place] Work Phone: 10-31-2021 10:02-0400 Body temperature 97.6 [degF] Dr. Fracisco Carvalho Work Phone: [facility] [place] Work Phone: 10-31-2021 10:02-0400 Body weight 73.[address] Fracisco Carvalho Work Phone: [facility] [place] Work Phone: 10-31-2021 10:02-0400 Diastolic blood pressure 71 mm[Hg] Dr. Frcaisco Carvalho Work Phone: [facility] [place] Work Phone: 10-31-2021 10:02-0400 Heart rate 70 /min Dr. Fracisco Carvalho Work Phone: [facility] [place] Work Phone: 10-31-2021 10:02-0400 Respiratory rate 18 /min Dr. Fracisco Carvalho Work Phone: [facility] [place] Work Phone: 10-31-2021 10:02-0400 SaO2% (BldA) [Mass fraction] 96 % Dr. Fracisco Carvalho Work Phone: [facility] [place] Work Phone: 10-31-2021 10:02-0400 Systolic blood pressure 133 mm[Hg] Dr. Fracisco Carvalho Work Phone: [facility] [place] Work Phone: 10-30-2021 19:02-0400 Body temperature 97.1 [degF] Dr. Fracisco Carvalho Work Phone: [facility] [place] Work Phone: 10-30-2021 19:02-0400 Diastolic blood pressure 56 mm[Hg] Dr. Fracisco Carvalho Work Phone: [facility] [place] Work Phone: 10-30-2021 19:02-0400 Heart rate 76 /min Dr. Fracisco Carvalho Work Phone: [facility] [place] Work Phone: 10-30-2021 19:02-0400 Respiratory rate 18 /min Dr. Fracisco Carvalho Work Phone: [facility] [place] Work Phone: 10-30-2021 19:02-0400 SaO2% (BldA) [Mass fraction] 96 % Dr. Fracisco Carvalho Work Phone: [facility] [place] Work Phone: 10-30-2021 19:02-0400 Systolic blood pressure 112 mm[Hg] Dr. Fracisco Carvalho Work Phone: [facility] [place] Work Phone: 10-30-2021 19:00-0400 Body mass index (BMI) [Ratio] 23.4 kg/m2 Dr. Fracisco Carvalho Work Phone: [facility] [place] Work Phone: 10-30-2021 19:00-0400 Body weight 74.[address] Fracisco Carvalho Work Phone: [facility] [place] Work Phone: 10-15-2021 20:21-0400 Body mass index (BMI) [Ratio] 23.1 kg/m2 Dr. Fracisco Carvalho Work Phone: [facility] [place] Work Phone: 10-02-2021 09:50-0400 Body temperature 97.9 [degF] Dr. Fracisco Carvalho Work Phone: [facility] [place] Work Phone: 10-02-2021 09:50-0400 Diastolic blood pressure 72 mm[Hg] Dr. Fracisco Carvalho Work Phone: [facility] [place] Work Phone: 10-02-2021 09:50-0400 Heart rate 70 /min Dr. Fracisco Carvalho Work Phone: [facility] [place] Work Phone: 10-02-2021 09:50-0400 Respiratory rate 16 /min Dr. Fracisco Carvalho Work Phone: [facility] [place] Work Phone: 10-02-2021 09:50-0400 SaO2% (BldA) [Mass fraction] 95 % Dr. Fracisco Carvalho Work Phone: [facility] [place] Work Phone: 10-02-2021 09:50-0400 Systolic blood pressure 130 mm[Hg] Dr. Fracisco Carvalho Work Phone: [facility] [place] Work Phone: 10-02-2021 07:12-0400 Inhaled oxygen flow rate 1.5 L/min Dr. Fracisco Carvalho Work Phone: [facility] [place] Work Phone: 10-01-2021 17:01-0400 Body height 180.[address] Fracisco Carvalho Work Phone: [facility] [place] Work Phone: 10-01-2021 17:01-0400 Body mass index (BMI) [Ratio] 22.9 kg/m2 Dr. Fracisco Carvalho Work Phone: [facility] [place] Work Phone: 10-01-2021 17:01-0400 Body weight 74.[address] Fracisco Carvalho Work Phone: [facility] [place] Work Phone: 08-16-2021 01:02-0400 Body mass index (BMI) [Ratio] 23.1 kg/m2 Dr. Fracisco Carvalho Work Phone: [facility] [place] Work Phone: 07-25-2021 08:49-0500 Diastolic blood pressure 82 mm[Hg] Dr. Fracisco Carvalho Work Phone: [facility] [place] Work Phone: 07-25-2021 08:49-0500 Systolic blood pressure 140 mm[Hg] Dr. Fracisco Carvalho Work Phone: [facility] [place] Work Phone: 07-25-2021 08:28-0500 Body mass index (BMI) [Ratio] 23.2 kg/m2 Dr. Fracisco Carvalho Work Phone: [facility] [place] Work Phone: 07-25-2021 08:28-0500 Body weight 73.[address] Fracisco Carvalho Work Phone: [facility] [place] Work Phone: 07-25-2021 08:28-0500 Heart rate 73 /min Dr. Fracisco Carvalho Work Phone: [facility] [place] Work Phone: 07-25-2021 08:28-0500 Respiratory rate 18 /min Dr. Fracisco Carvalho Work Phone: [facility] [place] Work Phone: 07-25-2021 08:28-0500 SaO2% (BldA) [Mass fraction] 97 % Dr. Fracisco Carvalho Work Phone: [facility] [place] Work Phone: 07-25-2021 07:49-0500 Diastolic blood pressure 82 mm[Hg] Dr. Fracisco Carvalho Work Phone: [facility] [place] Work Phone: 07-25-2021 07:49-0500 Systolic blood pressure 140 mm[Hg] Dr. Fracisco Carvalho Work Phone: [facility] [place] Work Phone: 07-25-2021 07:28-0500 Body height 177.[address] Fracisco Carvalho Work Phone: [facility] [place] Work Phone: 07-25-2021 07:28-0500 Body mass index (BMI) [Ratio] 23.2 kg/m2 Dr. Fracisco Carvalho Work Phone: [facility] [place] Work Phone: 07-25-2021 07:28-0500 Body weight 73.[address] Fracisco Carvalho Work Phone: [facility] [place] Work Phone: 07-25-2021 07:28-0500 Heart rate 73 /min Dr. Fracisco Carvalho Work Phone: [facility] [place] Work Phone: 07-25-2021 07:28-0500 Respiratory rate 18 /min Dr. Fracisco Carvalho Work Phone: [facility] [place] Work Phone: 07-25-2021 07:28-0500 SaO2% (BldA) [Mass fraction] 97 % Dr. Fracisco Carvalho Work Phone: [facility] [place] Work Phone: 06-17-2021 22:16-0500 Body mass index (BMI) [Ratio] 23.1 kg/m2 Dr. Fracisco Carvalho Work Phone: [facility] [place] Work Phone: 06-17-2021 21:16-0500 Body mass index (BMI) [Ratio] 23.1 kg/m2 Dr. Fracisco Carvalho Work Phone: [facility] [place] Work Phone: 06-08-2021 08:36-0500 Body temperature 97.5 [degF] Dr. Fracisco Carvaloh Work Phone: [facility] [place] Work Phone: 06-08-2021 08:36-0500 Diastolic blood pressure 76 mm[Hg] Dr. Fracisco Carvalho Work Phone: [facility] [place] Work Phone: 06-08-2021 08:36-0500 Heart rate 70 /min Dr. Fracisco Carvalho Work Phone: [facility] [place] Work Phone: 06-08-2021 08:36-0500 Respiratory rate 16 /min Dr. Fracisco Carvalho Work Phone: [facility] [facility] [place] Work Phone: 06-08-2021 08:36-0500 SaO2% (BldA) [Mass fraction] 96 % Dr. Fracisco Carvalho Work Phone: [facility] [place] Work Phone: 06-08-2021 08:36-0500 Systolic blood pressure 136 mm[Hg] Dr. Fracisco Carvalho Work Phone: [facility] [place] Work Phone: 06-05-2021 18:41-0500 Body mass index (BMI) [Ratio] 22.3 kg/m2 Dr. Fracisco Carvalho Work Phone: [facility] [place] Work Phone: 06-05-2021 18:41-0500 Body weight 72.[address] Fracisco Carvalho Work Phone: [facility] [place] Work Phone: 05-19-2021 02:41-0500 Body mass index (BMI) [Ratio] 23.1 kg/m2 Dr. Fracisco Carvalho Work Phone: [facility] [place] Work Phone: 02-14-2021 20:05-0400 Body mass index (BMI) [Ratio] 23.1 kg/m2 Dr. Fracisco Carvalho Work Phone: [facility] [place] Work Phone: 09-29-2016 13:34-0400 BMI (Body Mass Index) 22.03 kg/m2 Delmy Berrios RN [facility] Work Phone: 09-29-2016 13:34-0400 BP Diastolic 72 mm[Hg] Delmy Berrios RN [facility] Work Phone: 09-29-2016 13:34-0400 BP Diastolic 64 mm[Hg] Delmy Berrios RN [facility] Work Phone: 09-29-2016 13:34-0400 BP Systolic 130 mm[Hg] Delmy Berrios RN [facility] Work Phone: 09-29-2016 13:34-0400 BP Systolic 120 mm[Hg] Delmy Berrios RN [facility] Work Phone: 09-29-2016 13:34-0400 Pulse (Heart Rate) 72 /min Delmy Berrios RN [facility] Work Phone: 09-29-2016 13:34-0400 Respiratory Rate 16 /min Delmy Berrios RN [facility] Work Phone: 09-29-2016 13:34-0400 Weight 71.67 kg Delmy Berrios RN [facility] Work Phone: 08-21-2016 08:36-0400 Body Temperature 97.9 [degF] Delmy Berrios RN [facility] Work Phone: 08-21-2016 08:36-0400 BSA (Body Surface Area) 1.9 m2 Delmy Berrios RN [facility] Work Phone: 08-21-2016 08:36-0400 Height 180.34 cm Delmy Berrios RN [facility] Work Phone: 08-21-2016 08:36-0400 Weight 71.12 kg Delmy Berrios RN [facility] Work Phone: Encounters Encounter Date Encounter Type Care Provider Facility Start: 04-12-2025 ambulatory [employer] Facility:[facility] Start: 03-09-2025 End: 03-09-2025 Office outpatient visit 25 minutes Lance Hobbs MD Work Phone: [facility] Cardiology [facility] Comment on above: Congestive heart kavin lure with right heart failure (HCC) (Primary Dx); Prosthetic cardiac paravalvular leak, initial encounter; Bacterial endocarditis, unspecified chronicity; S/P mitral valve replacement; Chronic diastolic heart failure (HCC); Pulmonary hypertension (HCC); Severe mitral regurgitation; CKD (chronic kidney disease) stage 2, GFR 60-89 ml/min; Other hyperlipidemia Start: 03-09-2025 End: 03-10-2025 ambulatory [facility] Start: 12-29-2024 End: 12-29-2024 Patient encounter procedure Estefania Sandhu -[facility] Work Phone: Start: 12-29-2024 End: 12-29-[address] Fracisco Carvalho MD Work Phone: [email or web address] Start: 12-15-2024 End: 12-15-2024 Refill Josephine Lees CONTINUOUS LINTER DRIER OPERATOR - FEATHERER Work Phone: [facility] Comment on above: Congestive heart kavin lure with right heart failure (HCC) Start: 10-14-2024 End: 10-14-2024 Telephone encounter Lance Hobbs MD Work Phone: [facility] Comment on above: Cardiac Clearance Start: 09-02-2024 End: 09-02-[address] Fracisco Carvalho MD -Laboratory Work Phone: Start: 09-02-2024 End: 09-02-2024 ambulatory [facility] Facility:[facility] [place] Start: 08-31-2024 End: 08-31-2024 Orders Only Lance Hobbs MD Work Phone: [facility] Start: 08-26-2024 End: 08-31-2024 Telephone encounter Lance Hobbs MD Work Phone: [facility] Comment on above: Other (Med cost) Start: 08-17-2024 End: 08-17-[address] Fracisco Carvalho MD Work Phone: [facility] Work Phone: Start: 08-17-2024 End: 08-17-[address] Matt Royal MD -[facility] Work Phone: Start: 07-13-2024 End: 07-13-[address] Matt Royal MD -[facility] Work Phone: Start: 07-13-2024 End: 07-13-2024 ambulatory [facility] Facility:[facility] Start: 07-11-2024 End: 07-11-2024 Telephone encounter Karthik Sinder CONTINUOUS LINTER DRIER OPERATOR.FEATHERER Work Phone: [facility] Comment on above: Patient Update Start: 07-08-2024 End: 07-08-2024 Refill Carol Haider CONTINUOUS LINTER DRIER OPERATOR - FEATHERER Work Phone: [facility] [place] Comment on above: Congestive heart kavin lure with right heart failure (HCC) Start: 07-07-2024 End: 07-07-2024 Follow-up encounter Bruna North MD Work Phone: [facility] Start: 07-07-2024 End: 07-07-2024 Patient encounter procedure Bruna North MD Work Phone: [facility] Start: 07-07-2024 End: 07-07-2024 Telephone encounter Karthik Snider APRN.FEATHERER Work Phone: [facility] [place] Comment on above: Wound Check; Appoint ment Start: 07-01-2024 End: 07-01-2024 ambulatory BRUNA MATTO [facility] Start: 06-27-2024 End: 06-27-2024 Telephone encounter Bruna North MD Work Phone: [facility] Card[facility] [place] Comment on above: Preparations For Pro cedures Start: 06-23-2024 End: 06-23-2024 ambulatory Fracisco Chi Deven Facility:[facility] [place] Start: 06-10-2024 End: 06-10-2024 Patient encounter procedure Bruna North MD Work Phone: [facility] [place] Comment on above: Failure of pacemaker lead, initial encounter (Primary Dx); Bradycardia; Vegetative endocarditis of mitral valve; Primary hypertension; Pacemaker at end of battery life; SSS (sick sinus syndrome) ([facility]); History of SBE (subacute bacterial endocarditis); S/P MVR (mitral valve replacement); S/P tricuspid valve repair Start: 06-10-2024 End: 06-10-2024 ambulatory BRUNA MATTO [facility] Start: 05-25-2024 End: 05-25-2024 Telephone encounter Bruna North MD Work Phone: [facility] [place] Start: 05-24-2024 End: 05-24-2024 ambulatory Fracisco Chi Deven Facility:[facility] Start: 05-20-2024 ambulatory Matt Royal Facility:[facility] Start: 05-20-2024 End: 05-20-2024 ambulatory Tacos Gibson NP Facility:[facility] [place] Start: 05-17-2024 End: 05-19-2024 Refill Lance Hobbs MD Work Phone: [facility] Comment on above: Congestive heart kavin lure with right heart failure (HCC) Start: 05-05-2024 End: 05-05-2024 Refill Carol Shaikh CNP Work Phone: [facility] Comment on above: Congestive heart kavin lure with right heart failure (HCC) Start: 05-04-2024 End: 05-04-2024 ambulatory Fracisco Chi Deven Facility:[facility] Start: 04-29-2024 End: 04-29-2024 ambulatory [place] [facility] Start: 04-29-2024 End: 04-29-2024 Office outpatient visit 15 minutes Mariana Reid MD Work Phone: [facility] [place] Comment on above: Chronic bilateral lo w back pain without sciatica (Primary Dx) Start: 04-13-2024 ambulatory Fracisco Chi Deven Facility:[facility] Start: 03-11-2024 End: 03-11-2024 ambulatory FRACISCO-CHI DEVEN [facility] Start: 03-11-2024 End: 03-11-2024 Office outpatient visit 15 minutes Mariana Reid MD Work Phone: [facility] Spine [facility] [place] Comment on above: Lumbar radiculopathy (Primary Dx) Start: 03-08-2024 End: 03-08-2024 Subsequent hospital visit by physician Delbert Stover MD Work Phone: [facility] Comment on above: Postoperative visit; Subdural hematoma (HCC); Anticoagulation adequate Start: 03-04-2024 End: 03-04-2024 Telephone encounter Mariana Reid MD Work Phone: [facility] [place] Comment on above: Appointment Request (6 week fu) Start: 02-29-2024 End: 02-29-2024 Refill [facility] Start: 02-29-2024 End: 03-10-2024 Telephone encounter Mariana Reid MD Work Phone: [facility] Spine [facility] [place] Comment on above: Reschedule Start: 02-26-2024 End: 02-26-2024 Telephone encounter Mariana Reid MD Work Phone: [facility] Spine [facility] [place] Comment on above: Reschedule Start: 02-23-2024 End: 02-23-2024 Office outpatient visit 25 minutes Lance Hobbs MD Work Phone: [facility] Comment on above: Vegetative endocardi tis of mitral valve; Chronic diastolic heart failure (HCC); Pulmonary hypertension (HCC); 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); Other hyperlipidemia Start: 02-23-2024 End: 02-23-2024 Office outpatient visit 40 minutes Delbert Stover MD Work Phone: [facility] Endovascular Neurology Comment on above: Postoperative visit (Primary Dx); Subdural hematoma (HCC); Anticoagulation adequate Start: 02-05-2024 End: 02-05-2024 Refill Lance Hobbs MD Work Phone: [facility] Comment on above: Congestive heart kavin lure with right heart failure (HCC) Start: 01-22-2024 End: 01-22-2024 Office outpatient visit 25 minutes Mariana Reid MD Work Phone: [facility] [place] Comment on above: Chronic bilateral lo w back pain without sciatica (Primary Dx) Start: 01-19-2024 End: 01-19-2024 Subsequent hospital visit by physician Olivia Del Castillo CONTINUOUS LINTER DRIER OPERATOR - FEATHERER Work Phone: [facility] Comment on above: SDH (subdural hemato ma) (HCC) Start: 01-01-2024 End: 01-07-2024 Evaluation and management of inpatient Myah Hennessy MD Work Phone: [facility] Surgical Trauma Neuro Intensive Care Unit STN ICU T2 Comment on above: SDH (subdural hemato ma) (HCC) (Primary Dx) Start: 10-23-2023 End: 10-23-2023 Office outpatient visit 25 minutes Lance Hobbs MD Work Phone: [facility] Comment on above: Vegetative endocardi tis of mitral valve; Presence of cardiac pacemaker; Chronic diastolic heart failure (HCC); Pulmonary hypertension (HCC); 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); CKD (chronic kidney disease) stage 2, GFR 60-89 ml/min; Other hyperlipidemia Start: 10-20-2023 Refill Gabi serrano CONTINUOUS LINTER DRIER OPERATOR - [employer] Work Phone: [facility] Comment on above: Congestive heart kavin lure with right heart failure (HCC) Start: 09-25-2023 End: 09-25-2023 Emergency department patient visit Dr. Fracisco Carvalho Work Phone: [facility] [place]-Emergency Department Work Phone: Start: 09-22-[address] Fracisco kowalski Work Phone: [facility] [place]-Laboratory Work Phone: Start: 09-10-2023 End: 09-10-2023 Office outpatient visit 25 minutes Gabi Leonardo CONTINUOUS LINTER DRIER OPERATOR [employer] Work Phone: [facility] Comment on above: Severe mitral regurg itation Start: 09-10-2023 End: 09-10-2023 Subsequent hospital visit by physician Josephine Lees CONTINUOUS LINTER DRIER OPERATOR - [employer] Work Phone: [facility] [address] Non-Invasive Cardiology Comment on above: Severe mitral regurg itation Start: 09-09-2023 End: 09-15-[address] Fracisco Carvalho Work Phone: [facility] [place] Work Phone: Start: 09-09-2023 End: 09-15-[address] Fracisco Carvalho Work Phone: [facility] [place]-Laboratory Work Phone: Start: 09-03-2023 Telephone encounter Gabi Leonardo CONTINUOUS LINTER DRIER OPERATOR [employer] Work Phone: [facility] Start: 09-03-2023 End: 09-03-2023 Subsequent hospital visit by physician Gabi Leonardo APRN - FEATHERER Work Phone: [facility] [address] X-ray Comment on above: Mitral valve insuffi ciency, unspecified etiology; Shortness of breath Start: 09-03-2023 End: 09-03-2023 Office outpatient visit 25 minutes Gabi Leonardo APRN - FEATHERER Work Phone: [facility] Comment on above: INR (international n ormal ratio) abnormal (Primary Dx); Mitral valve insufficiency, unspecified etiology; Shortness of breath; Other fatigue; Acute diastolic heart failure (HCC); Anemia, unspecified type Start: 08-27-2023 End: 08-27-[address] Fracisco Carvalho Work Phone: [facility] [place] Work Phone: Start: 08-27-2023 End: 08-27-[address] Fracisco Carvalho Work Phone: [facility] [place]-Laboratory, Phy Office 3rd Alr Start: 08-25-2023 End: 08-25-[address] Fracisco Carvalho Work Phone: [facility] [place] Work Phone: Start: 08-25-2023 End: 08-25-[address] [facility] Start: 08-24-2023 End: 08-24-[address] KEL IRBY MD Facility:B Start: 08-24-2023 End: 08-24-[address] KEL IRBY MD [facility] Start: 08-13-2023 End: 08-13-[address] Fracisco Carvalho Work Phone: [facility] Work Phone: Start: 08-06-2023 End: 08-06-2023 Office outpatient visit 25 minutes Gabi Leonardo APRN - FEATHERER Work Phone: [facility] Comment on above: S/P mitral valve rep air (Primary Dx); Severe mitral regurgitation; CKD (chronic kidney disease) stage 2, GFR 60-89 ml/min; Chronic diastolic heart failure (HCC) Start: 08-05-2023 Telephone encounter Shaw dunn MD Work Phone: [facility] Start: 08-05-2023 End: 08-15-[address] Fracisco Carvalho Work Phone: [facility] [place]-Laboratory Work Phone: Start: 08-05-2023 Registered Recurring [facility]-Laboratory Work Phone: Start: 08-05-2023 End: 08-15-[address] Fracisco Carvalho Work Phone: [facility] [place] Work Phone: Start: 08-05-2023 End: 08-05-2023 Patient encounter procedure [facility] [place]-Radiology, [facility] Work Phone: Start: 07-29-2023 Orders Only Aleta Lopes MD Work Phone: [facility] Comment on above: Mitral valve insuffi ciency, unspecified etiology (Primary Dx) Start: 07-29-2023 End: 07-30-2023 Evaluation and management of inpatient Shaw Nicholas MD Work Phone: [facility] Cardiac Thoracic Vascular Intensive Care Unit CTV ICU T1 Comment on above: Severe mitral regurg itation (Primary Dx); Rheumatic mitral regurgitation; S/P mitral valve replacement Start: 07-27-2023 ambulatory Josephine RAMÍREZ RN - FEATHERER Work Phone: [facility] Comment on above: Severe mitral regurg itation (Primary Dx) Start: 07-16-2023 End: 07-16-2023 Subsequent hospital visit by physician Gabi Leonardo APRN - FEATHERER Work Phone: [facility] [address] X-ray Comment on above: Prosthetic cardiac p aravalvular leak, initial encounter Start: 07-16-2023 End: 07-16-2023 ambulatory Gabi Leonardo APRN - FEATHERER Work Phone: [facility] [address] Laboratory Comment on above: Prosthetic cardiac p aravalvular leak, initial encounter; Dyspnea, unspecified Start: 07-16-2023 End: 07-16-2023 Office outpatient visit 25 minutes Gabi Leonardo CONTINUOUS LINTER DRIER OPERATOR - FEATHERER Work Phone: [facility] Comment on above: Mitral valve insuffi ciency, unspecified etiology (Primary Dx); S/P mitral valve replacement; Acute on chronic diastolic heart failure (HCC); CKD (chronic kidney disease) stage 2, GFR 60-89 ml/min Start: 06-18-2023 End: 06-18-2023 Subsequent hospital visit by physician Gabi Leonardo APRN - FEATHERER Work Phone: [facility] [address] Comment on above: Perivalvular leak of prosthetic heart valve, initial encounter; Nonrheumatic mitral valve disorder, unspecified Start: 06-18-2023 End: 07-16-2023 ambulatory [facility] [place] Work Phone: Start: 06-18-2023 End: 07-16-2023 Discharged Recurring [facility] [place]-Laboratory Work Phone: Start: 06-12-2023 End: 06-12-[address] Fracisco Carvalho Work Phone: [facility] [place] Work Phone: Start: 06-12-2023 End: 06-12-[address] Fracisco Carvalho Work Phone: [facility] [place]-Laboratory Work Phone: Start: 06-09-2023 End: 06-09-2023 Office outpatient new 60 minutes Bronson Dove DO Work Phone: [facility] Comment on above: S/P mitral valve rep lacement (Primary Dx); Bacterial endocarditis, unspecified chronicity; Mitral valve insufficiency, unspecified etiology Start: 06-09-2023 End: 06-09-2023 Office outpatient visit 40 minutes Shaw Nicholas MD Work Phone: [facility] Comment on above: Mitral valve insuffi ciency, unspecified etiology (Primary Dx); Acute deep vein thrombosis (DVT) of right lower extremity, unspecified vein (HCC); 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); Perivalvular leak of prosthetic heart valve, initial encounter; Nonrheumatic mitral valve disorder, unspecified; S/P mitral valve replacement Start: 06-01-2023 Orders Only Lance livingston MD Work Phone: [facility] Comment on above: Paravalvular leak of prosthetic heart valve, initial encounter (Primary Dx) Start: 05-29-2023 End: 05-29-2023 Subsequent hospital visit by physician Arthur Carvalho MD Work Phone: [facility] Cath/EP Lab Comment on above: Acute combined systo lic (congestive) and diastolic (congestive) heart failure (HCC); Mitral valve stenosis and aortic valve stenosis Start: 05-27-2023 ambulatory Stephanie velasquez PA-C Work Phone: [facility] Comment on above: terminal worker (current) use of anticoagulants (Primary Dx) Start: 05-27-2023 End: 03-10-2025 Telephone encounter Isabell Shaffer [facility] Cardiology Comment on above: Med Management ([facility]) Procedure Jardiance [facility] Start: 05-25-2023 End: 05-25-2023 Subsequent hospital visit by physician Lance Hobbs MD Work Phone: [facility] Cath/EP Lab Comment on above: Congestive heart kavin lure with right heart failure (HCC) Mitral valve stenosi s and aortic valve stenosis (Primary Dx); 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) Start: 05-25-2023 Telephone encounter Lance Sanchez MD Work Phone: [facility] Comment on above: Med Management Start: 05-19-2023 ambulatory Gabi gates PA-C Work Phone: [facility] Start: 04-30-2023 Telephone encounter Lance Sanchez MD Work Phone: [facility] Comment on above: Patient Education (R [facility]) Start: 04-30-2023 End: 04-30-2023 Office outpatient new 45 minutes Lance Hobbs MD Work Phone: [facility] Comment on above: Primary hypertension (Primary Dx); Vegetative endocarditis of mitral valve; Presence of cardiac pacemaker; Bacterial endocarditis, unspecified chronicity; Syncope, unspecified syncope type; 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); 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) Start: 04-29-2023 End: 04-29-2023 Emergency department patient visit Dr. Fracisco Carvalho Work Phone: [facility] [place]-Emergency Department Work Phone: Start: 04-27-2023 End: 05-17-[address] Fracisco Carvalho Work Phone: [facility] [place] Work Phone: Start: 04-27-2023 End: 05-17-[address] Fracisco Carvalho Work Phone: [facility] [place]-Laboratory Work Phone: Start: 04-27-[address] Fracisco kowalski Work Phone: [facility] [place]-Laboratory Work Phone: Start: 03-13-2023 Non-patient / Non-visit Dr. Ash Carvalho Work Phone: [facility] Work Phone: Start: 03-12-2023 Non-patient / Non-visit Dr. Ash Carvalho Work Phone: [facility] Work Phone: Start: 03-11-2023 Non-patient / Non-[facility] Start: 03-11-2023 End: 03-11-[address] [facility]: Start: 03-10-2023 End: 03-10-[address] Fracisco Carvalho Work Phone: [facility] [place] Work Phone: Start: 03-10-2023 End: 03-10-[address] [facility] Start: 03-09-2023 End: 03-09-[address] Fracisco Carvalho Work Phone: [facility] [place] Work Phone: Start: 03-09-2023 End: 03-09-[address] [facility] Start: 03-09-[address] Fracisco kowalski [facility] Start: 02-25-2023 Non-patient / Non-visit Dr. Ash Carvalho Work Phone: [facility] Work Phone: Start: 02-25-2023 End: 02-25-[address] Fracisco Carvalho Work Phone: [facility] [place] Work Phone: Start: 02-25-2023 End: 02-25-[address] Frac[facility]valho [facility] Flr Start: 02-13-2023 End: 02-13-[address] Fracisco Carvalho Work Phone: [facility] Work Phone: Start: 01-27-2023 End: 01-27-[address] Fracisco Carvalho Work Phone: [facility] Work Phone: Start: 11-20-2022 End: 12-15-2022 ambulatory [facility] Work Phone: Start: 11-20-2022 End: 12-15-2022 Discharged Recurring [facility] [place]-Laboratory Work Phone: Start: 10-01-2022 End: 10-01-[address] Fracisco Carvalho Work Phone: [facility] [place] Work Phone: Start: 10-01-2022 End: 10-01-[address] Fracisco Carvalho Work Phone: [facility] [place]-Cat Scan, [facility] Start: 10-01-2022 End: 10-01-[address] Fracisco Carvalho Work Phone: [facility] [place]-Radiology, [facility] Start: 09-04-2022 End: 09-04-[address] Fracisco Carvalho Work Phone: [facility] [place] Work Phone: Start: 09-04-2022 End: 09-04-[address] [facility]valho [facility] Fl[facility] Start: 08-27-2022 End: 08-27-[address] Fracisco Carvalho Work Phone: [facility] [facility] Work Phone: Start: 08-27-2022 End: 08-27-[address] Fracisco Carvalho Work Phone: [facility] [place]-Laboratory, Phy Office 3rd Flr Start: 08-12-2022 End: 08-12-[address] Fracisco Carvalho Work Phone: [facility] Start: 07-29-2022 End: 08-15-[address] [facility]val[facility] Start: 07-15-2022 End: 07-15-[address] Fracisco Carvalho Work Phone: [facility] Start: 06-13-2022 End: 06-13-2022 ambulatory [facility] Work Phone: Start: 06-13-2022 End: 06-13-2022 [facility] Start: 05-16-2022 End: 05-16-[address] Fracisco Carvalho Work Phone: [facility] Work Phone: Start: 05-16-2022 End: 05-16-[address] Fracisco Carvalho [facility] Start: 03-11-2022 End: 03-11-[address] Fracisco Carvalho Work Phone: [facility] Work Phone: Start: 03-11-2022 End: 03-11-[address] Frac[facility]val[facility] Start: 02-21-2022 End: 02-21-[address] Frac[facility]val[facility] Start: 02-21-[address] Fracisco kowalski [facility] Start: 02-21-2022 End: 02-21-[address] Fracisco Carvalho Work Phone: [facility] Work Phone: Start: 02-21-2022 End: 02-21-[address] Fracisco Carvalho [facility] Start: 01-31-2022 End: 01-31-[address] Fracisco Carvalho Work Phone: [facility] Start: 01-13-2022 End: 01-13-[address] Fracisco Carvalho Work Phone: [facility] Start: 01-07-2022 End: 01-10-[address] Fracisco Carvalho Work Phone: [facility] Work Phone: Start: 01-07-2022 End: 01-10-[address] Fracisco Carvalho Work Phone: [facility] Start: 12-03-2021 End: 12-15-[address] Fracisco Carvalho Work Phone: [facility] Start: 11-12-2021 End: 11-14-[address] Fracisco Carvalho Work Phone: [facility] Start: 11-08-2021 End: 11-08-[address] Frac[facility]valho [facility] Start: 11-08-[address] Fracisco kowalski [facility] Start: 10-31-2021 End: 10-31-[address] Fracisco Carvalho Work Phone: [facility] Start: 10-30-2021 End: 10-30-2021 Emergency department patient visit Dr. Fracisco Carvalho Work Phone: [facility]-Emergency Department Start: 10-30-2021 End: 10-30-[address] Fracisco Carvalho [facility] Office 3rd Flr Start: 10-16-2021 End: 10-16-[address] Fracisco Carvalho Work Phone: [facility]-Cardiovascular Services Start: 10-16-[address] Fracisco kowalski [facility] Phone[facility] Start: 10-02-2021 Non-patient / Non-visit Dr. Ash Carvalho Work Phone: [facility] Start: 10-01-2021 Non-patient / Non-visit Dr. Ash Carvalho Work Phone: [facility] Start: 10-01-2021 End: 10-02-2021 Evaluation and management of inpatient Dr. Fracisco Carvalho [facility] Phone[facility] Start: 10-01-2021 End: 10-01-[address] Fracicso Carvalho [facility] Phone[facility] Office [address] [place] [address] Start: 09-23-2021 End: 09-23-[address] Fracisco Carvalho [facility] Start: 09-23-[address] Fracisco kowalski [facility] Phone[facility] Start: 07-30-2021 End: 07-30-[address] Fracisco [facility]valho [facility] Start: 07-25-2021 End: 07-25-[address] Fracisco Carvalho Work Phone: [facility] Start: 07-22-2021 End: 07-22-[address] Fracisco Carvalho [facility] Start: 07-19-2021 End: 08-15-[address] Fracisco [facility]valho [facility] Start: 06-08-2021 Non-patient / Non-visit Dr. Ash Carvalho Work Phone: [facility] Start: 06-07-2021 Non-patient / Non-visit Dr. Ash Carvalho Work Phone: [facility] Start: 06-06-2021 Non-patient / Non-visit Dr. Ash Carvalho Work Phone: [facility] Start: 06-05-2021 Non-patient / Non-visit Dr. Ash Carvalho Work Phone: [facility] Start: 06-05-2021 End: 06-08-2021 Evaluation and management of inpatient Dr. Fracisco Carvalho Work Phone: [facility]-Medical Surgical 3 Start: 06-04-2021 End: 06-17-[address] Fracisco Carvalho Work Phone: [facility]-Laboratory Start: 04-29-2021 End: 05-18-[address] Fracisco Carvalho Work Phone: [facility]-Laboratory Start: 04-29-[address] Fracisco Carvalho Work Phone: [facility]-Pulmonary Services/Neurology Start: 11-19-2017 Emergency department patient visit UNKNOWN PROVIDER [facility] Start: 04-10-2017 End: 04-10-2017 Refill Brandin Alvarado MD Work Phone: Gastroenterology Comment on above: Refill Request Start: 01-12-2011 End: 01-13-2011 Patient encounter status Bruna North MD Work Phone: [facility] Work Phone: Start: 01-10-2011 End: 01-13-2011 Patient encounter status Bruna North MD Work Phone: [facility] Procedures Date Procedure Procedure Detail Performing Clinician Start: 03-09-2025 Ecg routine ecg w/le ast 12 lds w/i&r Lance Hobbs MD Work Phone: Start: 09-02-2024 Vitamin D, 25-hydrox y measurement Dr. Fracisco Carvalho MD Work Phone: Comment on above: Vitamin D StatusDefi ciency: <20 ng/mL (50nmol/L)Insufficiency: 20-30 ng/mL (50-75 nmol/L)Sufficiency: 30-100 ng/mL (75-250 nmol/L)Toxicity: >100 ng/mL (>250 nmol/L) Start: 07-07-2024 PACEMAKER CLINIC CHECK Bruna North MD Work Phone: Start: 03-08-2024 Ct head/brain w/o contrast material Delbert Stover MD Work Phone: Start: 01-19-2024 Ct head/brain w/o contrast material Olivia Del Castillo CONTINUOUS LINTER DRIER OPERATOR - FEATHERER Work Phone: Start: 01-07-2024 Ct head/brain w/o contrast material Olivia Del Castillo CONTINUOUS LINTER DRIER OPERATOR - FEATHERER Work Phone: Start: 01-07-2024 Basic metabolic pane l calcium total Jani Prater MD Work Phone: Start: 01-06-2024 Slctv cath carotid/i nnom art angio intrcranl art Nancy Gonzalez CONTINUOUS LINTER DRIER OPERATOR - FEATHERER Work Phone: Start: 01-06-2024 Glucose quantitative blood xcpt reagent strip Adrian Rothman MD Work Phone: Start: 01-05-2024 ANTI-XA LEVEL, LMWH Fidencio dra Payne CONTINUOUS LINTER DRIER OPERATOR - FEATHERER Work Phone: Start: 01-04-2024 Ecg routine ecg w/le ast 12 lds trcg only w/o i&r Chiquis Payne CONTINUOUS LINTER DRIER OPERATOR - FEATHERER Work Phone: Start: 01-04-2024 Basic metabolic pane l calcium total Nam Dougherty MD Work Phone: Start: 01-03-2024 End: 01-03-2024 Basic metabolic panel calcium total Nam Dougherty MD Work Phone: Start: 01-02-2024 Glucose quantitative blood xcpt reagent strip Myah Hennessy MD Work Phone: Start: 01-02-2024 Glucose quantitative blood xcpt reagent strip Myah Hennessy MD Work Phone: Start: 01-02-2024 Glucose quantitative blood xcpt reagent strip Myah Hennessy MD Work Phone: Start: 01-02-2024 Basic metabolic pane l calcium total Nam Dougherty MD Work Phone: Start: 01-02-2024 Ct head/brain w/o contrast material Nam Dougherty MD Work Phone: Start: 01-01-2024 Glucose quantitative blood xcpt reagent strip Myah Hennessy MD Work Phone: Start: 01-01-2024 Ct head/brain w/o contrast material Dangelo Canada DO Work Phone: Start: 01-01-2024 Prothrombin time Ashlee Dougherty MD Work Phone: Start: 09-25-[address] Fracisco marcano Work Phone: Start: 09-25-2023 CT of head without contrast Dr. Fracisco Carvalho Work Phone: Start: 09-10-2023 Basic metabolic pane l calcium total Gabi Leonardo CONTINUOUS LINTER DRIER OPERATOR - FEATHERER Work Phone: Start: 09-10-2023 Ecg routine ecg w/le ast 12 lds trcg only w/o i&r Shaw Nicholas MD Work Phone: Start: 09-10-2023 TTE w or wo fol wcon,Doppler Josephine Lees CONTINUOUS LINTER DRIER OPERATOR - FEATHERER Work Phone: Start: 09-03-2023 Basic metabolic pane l calcium total Gbai Leonardo CONTINUOUS LINTER DRIER OPERATOR - FEATHERER Work Phone: Start: 09-03-2023 Ecg routine ecg w/le ast 12 lds trcg only w/o i&r Shaw Nicholas MD Work Phone: Start: 09-03-2023 Thyrotropin [Units/volume] in Serum or Plasma Gabi Leonardo CONTINUOUS LINTER DRIER OPERATOR - FEATHERER Work Phone: Start: 08-06-2023 Ecg routine ecg w/le ast 12 lds trcg only w/o i&r Shaw Nicholas MD Work Phone: Start: 08-05-2023 Radiography of sacrococcygeal spine Start: 07-30-2023 Ecg routine ecg w/le ast 12 lds trcg only w/o i&r Sarah A Dennise CONTINUOUS LINTER DRIER OPERATOR - FEATHERER Work Phone: Start: 07-30-2023 Basic metabolic pane l calcium total Sarah A Dennise CONTINUOUS LINTER DRIER OPERATOR - FEATHERER Work Phone: Start: 07-29-2023 Echo tthrc r-t 2d w/wom-mode compl spec&colr d Sarah A Dennise CONTINUOUS LINTER DRIER OPERATOR - FEATHERER Work Phone: Start: 07-29-2023 Ecg routine ecg w/le ast 12 lds trcg only w/o i&r Sarah A Dennise CONTINUOUS LINTER DRIER OPERATOR - FEATHERER Work Phone: Start: 07-29-2023 Basic metabolic pane l calcium total Sarah A Dennise CONTINUOUS LINTER DRIER OPERATOR - FEATHERER Work Phone: Start: 07-29-2023 OXYGEN THERAPY Sarah A Dennise CONTINUOUS LINTER DRIER OPERATOR - FEATHERER Work Phone: Start: 07-29-2023 Echo ming guid tcat icar/vessel structural intvn Aleta Lopes MD Work Phone: Start: 07-29-2023 Prothrombin time Zain Lee MD Work Phone: Start: 07-28-2023 Blood typing serolog ic abo Shaw Nicholas MD Work Phone: Start: 07-16-2023 Blood typing serolog ic abo Gabi Leonardo APRN - FEATHERER Work Phone: Start: 07-16-2023 Comprehensive metabo lic panel Gabi Leonardo APRN - FEATHERER Work Phone: Start: 07-16-2023 E Ag [Presence] on R ed Blood Cells Gabi Leonardo CONTINUOUS LINTER DRIER OPERATOR - FEATHERER Work Phone: Start: 07-16-2023 little c Ag [Presenc e] on Red Blood Cells Gabi Leonardo CONTINUOUS LINTER DRIER OPERATOR - FEATHERER Work Phone: Start: 07-16-2023 Radiologic exam ches t 2 views Gabi Leonardo CONTINUOUS LINTER DRIER OPERATOR - FEATHERER Work Phone: Start: 07-16-2023 Ecg routine ecg w/le ast 12 lds trcg only w/o i&r Shaw Nicholas MD Work Phone: Start: 06-09-2023 Ecg routine ecg w/le ast 12 lds trcg only w/o i&r Shaw Nicholas MD Work Phone: Start: 05-29-2023 Echo transesophag r- t 2d w/prb img acquisj i&r Lance Hobbs MD Work Phone: Start: 05-25-2023 Cardiac catheterizat ion study Lance Hobbs MD Work Phone: Start: 05-25-2023 End: 05-25-2023 POCT O2 SATURATION Lance Hobbs MD Work Phone: Start: 04-30-2023 Ecg routine ecg w/le ast 12 lds w/i&r Lance Hobbs MD Work Phone: Start: 04-29-2023 CT of head without contrast Dr. Fracisco Carvalho Work Phone: Start: 04-29-2023 X-ray of both feet Dr. Fracisco Carvalho Work Phone: Start: 02-25-2023 Thyrotropin [Units/volume] in Serum or Plasma Lance Hobbs MD Work Phone: Start: 10-01-2022 CT of chest without contrast Dr. Fracisco Carvalho Work Phone: Start: 10-01-2022 Plain chest X-ray Dr. Annabelle Carvalho Work Phone: Start: 10-30-2021 CT of lower limb wit h contrast Dr. Fracisco Carvalho Work Phone: Start: 10-16-2021 Radiologic examinati on of knee Dr. Fracisco Carvalho Work Phone: Start: 10-16-2021 Plain X-ray of femur Dr Amina Carvalho Work Phone: Start: 10-16-2021 Plain X-ray of tibia and fibula Dr. Fracisco Carvalho Work Phone: Start: 10-16-2021 Investigation of transfusion reaction Dr. Fracisco Carvalho Work Phone: Start: 10-16-2021 End: 10-16-2021 Microbial culture, routine Dr. Fracisco Carvalho Work Phone: Start: 10-01-2021 Bacteria identified in Blood by Culture Dr. Fracisco Carvalho Work Phone: Start: 10-01-2021 SARS-CoV-2 & FLU Ant igen (Rapid) Dr. Fracisco Carvalho Work Phone: Start: 10-01-2021 Plain chest X-ray Dr. Annabelle Carvalho Work Phone: Start: 07-22-2021 Influenza Types A,B Direct FA (EVER) Dr. Fracisco Carvalho Work Phone: Start: 07-22-2021 End: 07-22-2021 Respiratory syncytial virus antigen assay Dr. Fracisco Carvalho Work Phone: Start: 06-05-2021 SARS-CoV-2 Antigen (Rapid) Dr. Fracisco Carvalho Work Phone: Start: 04-29-2021 Influenza Types A,B Direct FA (EVER) Dr. Fracisco Carvalho Work Phone: Start: 04-29-2021 End: 04-29-2021 Respiratory syncytial virus antigen assay Dr. Fracisco Carvalho Work Phone: Start: 12-22-2016 End: 12-22-2016 Program [...] Acth stimulation panel adrenal insufficiency Donna Ny CHIEF OF [employer] Work Phone: Start: 05-13-2016 End: 06-04-2016 Thyrotropin [Units/volume] in Serum or Plasma Donna Ny [employer] Work Phone: Start: 05-13-2016 End: 06-04-2016 Thyroxine (T4) free [Mass/volume] in Serum or Plasma Donna Ny [employer] Work Phone: Start: 05-13-2016 End: 06-04-2016 Triiodothyronine (T3) Free [Mass/volume] in Serum or Plasma Donna Ny [employer] Work Phone: Start: 04-07-2016 End: 04-11-2016 *GRISELDA Ware MD Start: 04-07-2016 End: 04-08-2016 *CBC [...] Dietz MD Start: 07-12-2015 End: 08-13-2016 Echocardiography eBn Dietz MD Start: 07-12-2015 End: 07-12-2015 Follow Up Appt 6 months Ben Dietz MD Start: 07-12-2015 End: 07-12-2015 PFM Ben Dietz MD Start: 06-29-2015 End: 08-13-2016 Derek Royal MD Start: 06-29-2015 End: 08-13-2016 Follow [...] 01-25-2015 End: 01-26-2015 Documentation of current medications Gabi Collazo PA-C Work Phone: Start: 01-25-2015 End: 01-25-2015 Follow Up Appt Other Gabi zambrano PA-C Work Phone: Start: 01-25-2015 End: 01-25-2015 INR in Platelet poor plasma by Coagulation assay Gabi Collazo PA-C Work Phone: Start: 01-25-2015 End: 01-26-2015 Smoking cessation education Gabi Collazo PA-C Work Phone: Start: 12-20-2014 End: 01-02-2015 *CBC with Differential Shruti J Signs MD Start: 12-20-2014 End: 01-02-2015 *CMP Complete [...] 01-17-2015 Bacteria identified in Blood by Culture Gabi Collazo PA-C Work Phone: Start: 11-24-2014 End: 11-25-2014 Documentation of current medications Gabi Collazo PA-C Work Phone: Start: 11-24-2014 End: 11-24-2014 Follow Up Appt 2 months Gabi saavedra PA-C Work Phone: Start: 11-24-2014 End: 11-24-2014 MMM Gabi Collazo PA-C Work Phone: Start: 11-24-2014 End: 11-25-2014 Smoking cessation education Gabi Collazo PA-C Work Phone: Start: 11-14-2014 End: 01-17-2015 Infectious Disease Gabi Collazo PA-C Work Phone: Start: 11-03-2014 End: 11-16-2014 *BMP Gabi Collazo PA-C Work Phone: Start: 11-03-2014 End: 11-16-2014 *CBC with Differential Gabi crouch PA-C Work Phone: Start: 11-03-2014 End: 11-16-2014 Erythrocyte sedimentation rate Gabi Collazo PA-C Work Phone: Start: 10-25-2014 End: 11-16-2014 Follow Up Appt 1 month Ben Dietz MD Start: 10-25-2014 End: 11-16-2014 MMM Ben Dietz MD Start: 10-19-2014 End: 11-16-2014 Follow [...] 11-24-2014 Vascular Surgery Ben Dietz MD Start: 07-27-2014 H/O: artificial hear t valve History of mitral valve replacement with bioprosthetic valve Estefania Sandhu Comment on above: #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 Atrial abcess and tricuspid valve repair with a 36mm Tricuspid annuloplasty ring 07/27/14; perivalvular mitral valve plug on 07/30/[address] [facility]; Start: 03-29-2014 End: 09-21-2014 Echocardiography Ben Dietz [...] Appt 6 months Ben Dietz MD Start: 01-09-2011 Lipid 1996 panel - S joshua or Plasma Bruna North MD Work Phone: Bacteria identified in Blood by Culture Dr. Fracisco Carvalho Work Phone: Bone reconstruction DR FLOYD IRBY MD Comment on above: right heel Bone wire, device (physical object) DR KEL IRBY MD Comment on above: bilateral jaw wires Heart valve replacement DR Silke IRBY MD Comment on above: MITRAL VALVE REPLACE MENT. Influenza Types A,B Direct FA (EVER) Dr. Fracisco Carvalho Work Phone: Influenza Types A,B Direct FA (EVER) Investigation of transfusion reaction Dr. Fracisco Carvalho Work Phone: Microbial culture, routine Dr. Fracisco Carvalho Work Phone: Pacemaker community recreation programmer (physical object) DR KEL IRBY MD Comment on above: PACEMAKER PLACEMENT. [facility] Ray amputation of foot DR HAROLDO IRBY MD Repair of musculotendinous cuff of shoulder DR KEL IRBY MD Repair of umbilical hernia DR KEL IRBY MD Respiratory syncytia l virus antigen assay Dr. Fracisco Carvalho Work Phone: Respiratory syncytia l virus antigen assay SARS-CoV-2 & FLU Ant igen (Rapid) Dr. Fracisco Carvalho Work Phone: Tonsillectomy DR KEL CANDELARIO MD Plan of Treatment Date Care Activity Detail Author Start: 12-08-2033 DTaP/Tdap/Td Vaccines (2 - Td or Tdap) DTaP/Tdap/Td Vaccines (2 - Td or Tdap) [facility] Start: 12-08-2033 Urine microalbumin profile DTaP,Tdap,Td Vaccine (2 - Td or Tdap) [facility] Start: 2030 RSV Vaccine (1 - 1-dose 75+ series) RSV Vaccine (1 - 1-dose 75+ series) [facility] Start: 07-07-2027 Diabetes Screening Diabetes Screening [facility] Start: 01-06-2027 Diabetes Screening Diabetes Screening [facility] Start: 03-09-2026 End: 03-09-2026 Patient encounter procedure [facility] [address] [facility] Start: 09-07-2025 Depression Monitoring Depression Monitoring 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 Cardiology [facility] [address] [place] [id number] Lance Hobbs MD [address] [place] [address] [facility] [place] Start: 01-16-2025 COVID-19 Vaccine ( season) COVID-19 Vaccine () [facility] Start: 01-16-2025 Influenza vaccination Influenza Vaccine (#1) [facility] Start: 01-06-2025 Creatinine measurement Creatinine Level [facility] Start: 01-06-2025 Potassium measurement Potassium Level [facility] Start: 09-27-2024 Covid-19 Vaccine ( season) Covid-19 Vaccine () [facility] Start: 09-09-2024 Creatinine measurement Creatinine Level [facility] Start: 09-09-2024 Echocardiography Echocardiogram [facility] Start: 09-09-2024 Potassium measurement Potassium Level [facility] Start: 09-02-2024 Creatinine measurement Creatinine Level [facility] Start: 09-02-2024 Potassium measurement Potassium Level [facility] Start: 09-02-2024 Thyroid stimulating hormone measurement TSH Level [facility] Start: 07-29-2024 Creatinine measurement Creatinine Level [facility] Start: 07-29-2024 Potassium measurement Potassium Level [facility] Start: 07-28-2024 Creatinine measurement Creatinine Level [facility] Start: 07-28-2024 Echocardiography Echocardiogram [facility] Start: 07-28-2024 Potassium measurement Potassium Level [facility] Start: 07-15-2024 Creatinine measurement Creatinine Level [facility] Start: 07-15-2024 Potassium measurement Potassium Level [facility] Start: 07-06-2024 Subsequent hospital visit by physician 07/06/2024 Hospital Encounter [facility] [address] [facility] 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 Start: 06-12-2024 Potassium measurement Potassium Level [facility] Start: 06-10-2024 End: 06-10-2024 Patient encounter procedure 06/10/2024 11:20 AM EST Office Visit [facility] Cardiology [address] [place] [place] [address] Bruna North MD [address] [address] [place], [place] [id number] Ref; [facility] for RV lead extraction vs Lead revision - k [facility] [place] Comment on above: Ref; [facility] for RV lead extraction vs Lead revision - [facility] Start: 05-29-2024 Echocardiography Echocardiogram [facility] Start: 05-20-2024 Creatinine measurement Creatinine Level [facility] Start: 05-20-2024 Potassium measurement Potassium Level [facility] Start: 05-18-2024 Advance Directive Discussion Advance Directive Discussion [facility] Start: 04-29-2024 End: 04-29-2024 Patient encounter procedure 04/29/2024 9:00 AM EST Office Visit [address] [phone] Mariana Reid MD [address] [place] [phone] [facility] [place] Start: 04-25-2024 End: 04-25-2024 Patient encounter procedure 04/25/2024 10:30 AM EST Office Visit [facility] [address] [place] [phone] Lance Hobbs MD [address] [place] [address] [facility] Start: 03-11-2024 End: 03-11-2024 Patient encounter procedure 03/11/2024 11:30 AM EDT Office Visit [facility] [address] [address] Mariana Reid MD [address] [place] [address] [facility] [place] Start: 03-08-2024 End: 04-24-2024 CT Head WO contrast CT head wo IV contrast Imaging Routine Postoperative visit Subdural hematoma (HCC) Anticoagulation adequate Expected: 03/08/2024, Expires: 04/24/2024 [facility] Work Phone: Comment on above: Expected: 03/08/2024, Expires: Start: 03-08-2024 Subsequent hospital visit by physician 03/08/2024 7:45 AM EDT Hospital Encounter [facility] [address] [place] [address] Delbert Stover MD [address] [place] [id number] [facility] [address] Start: 03-04-2024 End: 03-04-2024 Patient encounter procedure [facility] Start: 02-26-2024 Creatinine measurement Creatinine Level [facility] Start: 02-26-2024 Potassium measurement Potassium Level [facility] Start: 02-26-2024 Thyroid stimulating hormone measurement TSH Level [facility] Start: 02-23-2024 End: 02-23-2024 Patient encounter procedure [facility] Start: 02-23-2024 End: 02-23-2024 Patient encounter procedure [facility] Start: 01-22-2024 End: 01-22-2024 Patient encounter procedure 01/22/2024 11:15 AM EDT Office Visit [address] [phone] Mariana Reid MD [address] [place] [phone] [facility] Start: 01-19-2024 Subsequent hospital visit by physician 01/19/2024 3:45 PM EDT Hospital Encounter [facility] [address] [place] [address] Olivia Del Castillo, CONTINUOUS LINTER DRIER OPERATOR - FEATHERER [facility] [place], [place] [phone] [facility] Start: 01-17-2024 Covid-19 Vaccine ( season) Covid-19 Vaccine ( season) [facility] Start: 01-17-2024 COVID-19 Vaccine ( season) COVID-19 Vaccine ( season) [facility] Start: 01-17-2024 COVID-19 Vaccine ( season) COVID-19 Vaccine ( season) [facility] Start: 01-17-2024 Influenza vaccination Influenza Vaccine (#1) [facility] Start: 01-13-2024 End: 01-05-2025 CT Head WO contrast CT head wo IV contrast Imaging Routine SDH (subdural hematoma) (HCC) Expected: 01/13/2024, Expires: 01/05/2025 [facility] Work Phone: Comment on above: Expected: 01/13/2024, Expires: Start: 10-23-2023 End: 10-23-2023 Patient encounter procedure 10/23/2023 10:15 AM EDT Office Visit [facility] [address] [place] [phone] Lance Hobbs MD [address] [place] [address] [facility] Start: 09-28-2023 End: 09-28-2023 Patient encounter procedure 09/28/2023 3:15 PM EDT Office Visit [facility] [address] [place] [address] Lance Hobbs MD [address] [place], [place] [phone] [facility] Start: 09-25-2023 [facility] Start: 09-10-2023 End: 09-10-2023 Patient encounter procedure [facility] [address] Non-Invasive [facility]iology Start: 09-05-2023 End: 08-04-2025 US Heart Transthoracic Transthoracic echocardiogram (TTE) complete with contrast, bubble, strain, and 3D PRN CV Echocardiography Routine Severe mitral regurgitation Expected: 09/05/2023 (Approximate), Expires: 08/04/2025 [employer] Work Phone: Comment on above: Expected: 09/05/2023 (Approximate), Expi res: 08/04/2025 Start: 09-03-2023 End: 09-02-2024 XR Chest 2 Views [employer] Work Phone: Comment on above: Expected: 09/03/2023, Expires: Once for 1 Occurrenc es starting 09/03/2023 until 09/03/2023 Start: 08-06-2023 End: 08-06-2023 Patient encounter procedure 08/06/2023 9:30 AM EDT Office Visit [facility] [address] [place] [address] Gabi Leonardo, CONTINUOUS LINTER DRIER OPERATOR - FEATHERER [address] [facility] [address] [place] [address] [facility] Start: 07-29-2023 End: 07-28-2025 MING for Interventional Guidance MING for Interventional Guidance CV Echocardiography Routine Mitral valve insufficiency, unspecified etiology Expected: 07/29/2023 (Approximate), Expires: 07/28/2025 [facility] Work Phone: Comment on above: Expected: 07/29/2023 (Approximate), Expi res: 07/28/2025 Start: 07-29-2023 End: 07-29-2023 Admission to same day surgery center 07/29/2023 7:30 AM EDT - 07/29/2023 11:30 AM EDT Surgery [facility] MA[facility] OR [address] [place] [phone] Shaw Nicholas MD [address] [facility] [address] [place] [address] paravalvular leak closure, mitral valve [facility] MA[facility] OR Comment on above: paravalvular leak closure, mitral valve Start: 07-29-2023 End: 07-29-2023 Anesthesia consultation 07/29/2023 7:30 AM EDT Anesthesia Event [facility] MA[facility] OR [address] [place] [address] Olivia Zamora, HEALTHCARE FINANCIAL ANALYST [address] [place] [address] [facility] Start: 07-29-2023 End: 07-29-2023 PROCEDURE/CPT NOT FOUND PROCEDURE/CPT NOT FOUND Prosthetic cardiac paravalvular leak, initial encounter 07/29/2023 7:30 AM EDT [facility] Start: 07-29-2023 Subsequent hospital visit by physician 07/29/2023 7:30 AM EDT Hospital Encounter [facility] MA[facility] OR [address] [place] [phone] Shaw Nicholas MD [address] [facility] [address] [place] [address] [facility] OR Start: 06-18-2023 End: 06-18-2023 Patient encounter procedure 06/18/2023 1:00 PM EST Appointment [facility] [address] [place] [phone] Gabi Leonardo, CONTINUOUS LINTER DRIER OPERATOR - FEATHERER [address] [facility] [address] [place] [address] [facility] [address] Start: 06-09-2023 End: 06-09-2024 Basic metabolic 1998 panel - Serum or Plasma Basic metabolic panel Lab Routine Mitral valve insufficiency, unspecified etiology Expected: 06/09/2023 (Approximate), Expires: 06/09/2024 [facility] [employer] Work Phone: Comment on above: Expected: 06/09/2023 (Approximate), Expi res: 06/09/2024 Start: 06-09-2023 End: 06-09-2024 CT Heart W contrast IV CT heart structure morphology w IV contrast Imaging Routine Perivalvular leak of prosthetic heart valve, initial encounter Nonrheumatic mitral valve disorder, unspecified Expected: 06/09/2023, Expires: 06/09/2024 [facility] [employer] Comment on above: Expected: 06/09/2023, Expires: Start: 06-08-2023 End: 05-25-2024 Basic metabolic 1998 panel - Serum or Plasma Basic metabolic panel Lab Routine 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) Mitral valve stenosis and aortic valve stenosis Expected: 06/08/2023 (Approximate), Expires: 05/25/2024 [facility] [employer] Comment on above: Expected: 06/08/2023 (Approximate), Expi res: 05/25/2024 Start: 05-29-2023 End: 05-29-2023 Patient encounter procedure 05/29/2023 1:00 PM EST Appointment [facility] Cath/EP Lab [address] [facility] [place] [phone] Kingston Stanley MD [address] [place] [address] [facility] Start: 05-25-2023 End: 05-25-2025 US Heart Transesophageal Transesophageal echocardiogram (MING) with contrast and 3D PRN CV Echocardiography Routine 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 Comment on above: Expected: 05/25/2023 (Approximate), Expi res: 05/25/2025 Start: 05-25-2023 End: 05-25-2023 Admission to same day surgery center 05/25/2023 8:00 AM EST - 05/25/2023 9:00 AM EST Surgery [facility] Cath/EP Lab [address] [place] [phone] Lance Hobbs MD [address] [place] [phone] Right heart cath [facility] Cath[facility] Comment on above: Right heart cath Start: 05-25-2023 Subsequent hospital visit by physician 05/25/2023 8:00 AM EST Hospital Encounter [facility] [address] [place] [address] Lance Hobbs MD [address] [address] 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 [...] syncope type Expected: 05/07/2023 (Approximate), Expires: 04/30/2024 [facility] [employer] Work Phone: Comment on above: Expected: 05/07/2023 [...] failure (HCC) Expected: 05/07/2023 (Approximate), Expires: 04/30/[address] [facility] Comment on above: Expected: 05/07/2023 (Approximate), Expi res: 04/30/2024 Start: 04-30-2023 End: 04-30-2024 CBC panel - Blood by Automated count CBC Lab Routine Primary hypertension 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 Bacterial endocarditis, unspecified chronicity Syncope, unspecified syncope type 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) Expected: 04/30/2023 (Approximate), Expires: 04/30/[address] [facility] Comment on above: Expected: 04/30/2023 (Approximate), Expi res: 04/30/2024 Start: 01-16-2023 COVID-19 Vaccine ( season) COVID-19 Vaccine ( season) [facility] Start: 02-18-2022 Pneumococcal Vaccine: 50+ (2 of 2 - PCV) Pneumococcal Vaccine: 50+ (2 of 2 - PCV) [facility] Start: 02-18-2022 Pneumococcal Vaccine: 50+ Years (2 of 2 - PCV) Pneumococcal Vaccine: 50+ Years (2 of 2 - PCV) [facility] Start: 02-18-2022 Pneumococcal Vaccine: 65+ Years (2 - PCV) Pneumococcal Vaccine: 65+ Years (2 - PCV) [facility] Start: 02-18-2022 Pneumococcal Vaccine: 65+ Years (2 of 2 - PCV) Pneumococcal Vaccine: 65+ Years (2 of 2 - PCV) [facility] Start: 10-31-2021 Patient referral [facility] Work Phone: Start: 10-30-2021 [facility] Work Phone: Start: 10-02-2021 Patient discharge [facility] Work Phone: Start: 10-01-2021 Bacteria identified in Blood by Culture Blood Culture [facility] Work Phone: Start: 10-01-2021 Following clinical pathway protocol [facility] Work Phone: Start: 10-01-2021 Admission procedure [facility] Work Phone: Start: 10-01-2021 Oxygen therapy [facility] Work Phone: Start: 10-01-2021 Patient education [facility] Work Phone: Start: 10-01-2021 End: 10-01-2021 [facility] Work Phone: Start: 10-01-2021 Ambulation without limitation [facility] Work Phone: Start: 10-01-2021 Assessment of risk of venous thromboembolism [facility] Work Phone: Start: 10-01-2021 Insertion of catheter into peripheral vein [facility] Work Phone: Start: 10-01-2021 Measuring intake and output [facility] Work Phone: Start: 10-01-2021 Providing care according to standard [facility] Work Phone: Start: 10-01-2021 Inhalation therapy procedure [facility] Work Phone: Start: 01-16-2021 Influenza vaccination INFLUENZA (Season Ended) [facility] Start: 2020 ADVANCE DIRECTIVE DISCUSSION ADVANCE DIRECTIVE DISCUSSION [facility] Start: 2020 PNEUMOVAX AGE 65 AND OVER WITH 5YR LOOKBACK (#1) PNEUMOVAX AGE 65 AND OVER WITH 5YR LOOKBACK (#1) [facility] Start: 11-22-2017 Lipid panel Lipid Panel [facility] Start: 06-24-2017 End: 06-24-2017 Appointment Appointment [facility] Work Phone: Start: 04-15-2017 End: 04-15-2017 Appointment Appointment [facility] Work Phone: Start: 03-16-2017 End: 03-16-2017 Appointment Appointment [facility] Work Phone: Start: 12-22-2016 End: 12-22-2016 Follow Up Appt 6 months Follow Up Appt 6 months [facility] Work Phone: Start: 12-22-2016 End: 12-22-2016 [facility] Work Phone: Start: 11-16-2016 DIABETES SCREEN DIABETES SCREEN [facility] Start: 11-16-2016 Diabetes Screening Diabetes Screening [facility] Start: 09-29-2016 End: 09-29-2016 Follow Up Appt 6 months Follow Up Appt 6 months [facility] Work Phone: Start: 09-29-2016 End: 09-29-2016 PFM PFM [facility] Work Phone: Start: 08-21-2016 End: 08-22-2016 Thyroid stimulating hormone (TSH) *TSH [facility] Work Phone: Start: 08-21-2016 End: 08-22-2016 Thyroxine (T4) free *T4 free [facility] Work Phone: Start: 06-23-2016 End: 08-13-2016 Follow Up Appt 6 months Follow Up Appt 6 months [facility] Work Phone: Start: 06-23-2016 End: 08-13-2016 [facility] Work Phone: Start: 05-13-2016 End: 06-04-2016 Acth stimulation panel adrenal insufficiency *ACTH stimulation panel; for adrenal insufficiency. [facility] Work Phone: Start: 05-13-2016 End: 06-04-2016 Thyroid stimulating hormone (TSH) *TSH [facility] Work Phone: Start: 05-13-2016 End: 06-04-2016 Thyroxine (T4) free *T4 free [facility] Work Phone: Start: 05-13-2016 End: 06-04-2016 Triiodothyronine (T3) free *T3-Free [facility] Work Phone: Start: 04-21-2016 End: 04-21-2016 Endocrinology Referral Endocrinology Referral Donna (BJ) ROXI Ny, [address], [address], [facility], [place], [address] [facility] Work Phone: Start: 04-07-2016 End: 04-08-2016 *GRISELDA *GRISELDA [facility] Work Phone: Start: 04-07-2016 End: 04-08-2016 *CBC with Differential *CBC with Differential [facility] Work Phone: Start: 04-07-2016 End: 04-08-2016 *CMP Complete Metabolic Panel *CMP Complete Metabolic Panel [facility] Work Phone: Start: 04-07-2016 End: 04-08-2016 Erythrocyte sedimentation rate *Sedimentation Rate (ESR) [facility] Work Phone: Start: 04-07-2016 End: 04-08-2016 Rheumatoid factor quantitative *Rheumatoid Factor (quantitative) [facility] Work Phone: Start: 04-07-2016 End: 04-08-2016 Thyroxine (T4) free *T4 free [facility] Work Phone: Start: 04-07-2016 End: 04-08-2016 Triiodothyronine (T3) free *T3-Free [facility] Work Phone: Start: 03-31-2016 End: 04-08-2016 Ct abdomen & pelvis w/o contrast material CT Abdomen and pelvis; without contrast material [facility] Work Phone: Start: 03-31-2016 End: 04-08-2016 Ct thorax w/o contrast material CT Chest without contrast [facility] Work Phone: Start: 02-25-2016 End: 02-25-2016 Follow Up Appt 6 months Follow Up Appt 6 months [facility] Work Phone: Start: 02-25-2016 End: 08-13-2016 Follow Up Appt Other Follow Up Appt Other [facility] Work Phone: Start: 02-25-2016 End: 02-25-2016 MMM MMM [facility] Work Phone: Start: 01-10-2016 Lipid panel Lipid Screening [facility] Start: 01-10-2016 LIPID SCREEN LIPID SCREEN [facility] Start: 12-31-2015 End: 08-13-2016 Follow Up Appt 6 months Follow Up Appt 6 months [facility] Work Phone: Start: 12-31-2015 End: 08-13-2016 [facility] Work Phone: Start: 07-13-2015 End: 08-07-2015 INR Coag RelTime (PPP) *PT/INR - Standing Order [facility] Work Phone: Start: 07-12-2015 End: 10-16-2015 Echocardiography Echocardiogram (complete) [email or web address] Work Phone: Start: 07-12-2015 End: 07-12-2015 Follow Up Appt 6 months Follow Up Appt 6 months [facility] Work Phone: Start: 07-12-2015 End: 07-12-2015 PFM PFM [email or web address] Work Phone: Start: 06-29-2015 End: 08-13-2016 Follow Up Appt 6 months Follow Up Appt 6 months [employer] Work Phone: Start: 06-29-2015 End: 08-13-2016 [facility] Work Phone: Start: 2015 RSV Immunization aged 60 or older (1 - 1-dose 60+ series) RSV Immunization aged 60 or older (1 - 1-dose 60+ series) [facility] Start: 2015 RSV Immunization for Adults (1 - Risk 60-74 years 1-dose series) RSV Immunization for Adults (1 - Risk 60-74 years 1-dose series) [facility] Start: 05-17-2015 End: 08-13-2016 Follow Up Appt 3 months Follow Up Appt 3 months [facility] Work Phone: Start: 05-17-2015 End: 08-13-2016 Pacer Clinic Pacer Clinic [facility] Work Phone: Start: 03-21-2015 End: 08-13-2016 Follow Up Appt 3 months Follow Up Appt 3 months [facility] Work Phone: Start: 03-21-2015 End: 08-13-2016 Pacer Clinic Pacer Clinic [facility] Work Phone: Start: 01-25-2015 End: 01-25-2015 Follow Up Appt Other Follow Up Appt Other [facility] Work Phone: Start: 01-25-2015 End: 01-25-2015 INR Coag RelTime (PPP) *PT/INR - Standing Order [facility] Work Phone: Start: 12-20-2014 End: 12-20-2014 *CBC with Differential *CBC with Differential [facility] Work Phone: Start: 12-20-2014 End: 12-20-2014 *CMP Complete Metabolic Panel *CMP Complete Metabolic Panel [facility] Work Phone: Start: 12-20-2014 End: 12-20-2014 C reactive protein (hsCRP) *CRP - C-Reative Protein [facility] Work Phone: Start: 12-20-2014 End: 12-20-2014 Erythrocyte sedimentation rate *Sedimentation Rate (ESR) [facility] Work Phone: Start: 11-30-2014 End: 01-17-2015 Follow Up Appt 3 months Follow Up Appt 3 months [facility] Work Phone: Start: 11-30-2014 End: 01-17-2015 Pacer Clinic Pacer Clinic [facility] Work Phone: Start: 11-24-2014 End: 01-17-2015 Bacteria culture *CUB - Culture, Blood [facility] Work Phone: Start: 11-24-2014 End: 11-24-2014 Follow Up Appt 2 months Follow Up Appt 2 months [facility] Work Phone: Start: 11-24-2014 End: 11-24-2014 MMM MMM [facility] Work Phone: Start: 11-14-2014 End: 11-14-2014 Infectious Disease Infectious Disease Shruti Ware MD, [facility], [address], [place], [address] [facility] Work Phone: Start: 11-03-2014 End: 11-16-2014 *BMP *BMP [facility] Work Phone: Start: 11-03-2014 End: 11-16-2014 *CBC with Differential *CBC with Differential [facility] Work Phone: Start: 11-03-2014 End: 11-16-2014 Erythrocyte sedimentation rate *Sedimentation Rate (ESR) [facility] Work Phone: Start: 10-25-2014 End: 11-16-2014 Follow Up Appt 1 month Follow Up Appt 1 month [facility] Work Phone: Start: 10-25-2014 End: 11-16-2014 MMM MMM [facility] Work Phone: Start: 10-19-2014 End: 11-16-2014 Follow Up Appt 1 month Follow Up Appt 1 month [facility] Work Phone: Start: 10-19-2014 End: 11-16-2014 Pacer Clinic Pacer Clinic [facility] Work Phone: Start: 09-21-2014 End: 09-21-2014 Cardiac Rehab Cardiac Rehab [facility] Work Phone: Start: 09-21-2014 End: 09-21-2014 Cardiovascular stress test using treadmill Treadmill stress test (no imaging) [facility] Work Phone: Start: 09-21-2014 End: 09-21-2014 Ecg routine ecg w/least 12 lds w/i&r EKG (In office) [facility] Work Phone: Start: 09-21-2014 End: 09-21-2014 Follow Up Appt 6 weeks Follow Up Appt 6 weeks [facility] Work Phone: Start: 09-21-2014 End: 09-21-2014 Follow Up Appt Other Follow Up Appt Other [facility] Work Phone: Start: 09-21-2014 End: 10-16-2014 INR Coag RelTime (PPP) *PT/INR - Standing Order [facility] Work Phone: Start: 09-21-2014 End: 09-21-2014 PFM PFM [facility] Work Phone: Start: 09-21-2014 End: 09-21-2014 Vascular Surgery Vascular Surgery Romeo Rao MD, [address] [facility], [facility] [address], [place], [address] [facility] Work Phone: Start: 03-29-2014 End: 03-29-2014 Echocardiography Echocardiogram (complete) [facility] Work Phone: Start: 03-29-2014 End: 03-29-2014 Follow Up Appt 6 months Follow Up Appt 6 months [facility] Work Phone: Start: 03-29-2014 End: 03-29-2014 MMM MMM [facility] Work Phone: Start: 12-09-2013 End: 12-09-2013 Echocardiography Echocardiogram (complete) [facility] Work Phone: Start: 12-09-2013 End: 12-09-2013 Follow Up Appt 1 year Follow Up Appt 1 year [facility] Work Phone: Start: 12-09-2013 End: 12-09-2013 PFM PFM [facility] Work Phone: Start: 11-22-2012 End: 09-21-2014 *Hepatic Function Panel *Hepatic Function Panel [facility] Work Phone: Start: 11-22-2012 End: 11-22-2012 Follow Up Appt Other Follow Up Appt Other [facility] Work Phone: Start: 11-22-2012 End: 09-21-2014 Lipid panel [AGGREGATE] *Lipid Profile CC PCP [facility] Work Phone: Start: 11-22-2012 End: 11-22-2012 PFM PFM [email or web address] Work Phone: Start: 06-02-2012 End: 06-02-2012 Ecg routine ecg w/least 12 lds w/i&r EKG (In office) [email or web address] Work Phone: Start: 06-02-2012 End: 06-02-2012 Echocardiography Echocardiogram (complete) [email or web address] Work Phone: Start: 06-02-2012 End: 06-02-2012 Follow Up Appt 6 months Follow Up Appt 6 months [employer] Work Phone: Start: 11-21-2011 End: 11-21-2011 Follow Up Appt 6 months Follow Up Appt 6 months [employer] Work Phone: Start: 04-22-2011 End: 07-18-2011 Echocardiography Echocardiogram (complete) [email or web address] Work Phone: Start: 04-22-2011 End: 06-02-2012 Follow Up Appt 6 months Follow Up Appt 6 months [employer] Work Phone: Start: 2010 PROSTATE CANCER SCREENING DISCUSSION PROSTATE CANCER SCREENING DISCUSSION [facility] Start: 2010 Prostate specific antigen measurement Prostate Cancer Screening Discussion [facility] Start: 2005 Pneumococcal Vaccine: 50+ (1 of 1 - PCV) Pneumococcal Vaccine: 50+ (1 of 1 - PCV) [facility] Start: 2005 Screening for malignant neoplasm of colon [facility] Start: 2005 Screening for malignant neoplasm of lung Lung Cancer Screening [facility] Start: 2005 SHINGRIX VACCINE (1 of 2) SHINGRIX VACCINE (1 of 2) [facility] Start: 2000 Screening for malignant neoplasm of colon [facility] Start: 1974 DTaP/Tdap/Td Vaccines (1 - Tdap) DTaP/Tdap/Td Vaccines (1 - Tdap) [facility] Start: 1974 Urine microalbumin profile [facility] Start: 1973 Annual PCP Team Chronic Disease Visit Annual PCP Team Chronic Disease Visit [facility] Start: 1973 Anxiety Screening Anxiety Screening [facility] Start: 1973 BP Controlled (<130/80) BP Controlled (<130/80) [facility] Start: 1973 Depression Screening Depression Screening [facility] Start: 1973 Diabetes mellitus screening Diabetes Screening [facility] Start: 1973 Hepatitis C screening Hepatitis C Screening [facility] Start: 1967 Adult depression screening assessment DEPRESSION SCREENING [facility] Start: 1967 Depression Monitoring Depression Monitoring [facility] Start: 1967 Depresssion Monitoring Depresssion Monitoring [facility] Start: 1955 ABDOMINAL AORTIC ANEURYSM SCREENING ABDOMINAL AORTIC ANEURYSM SCREENING [facility] Start: 1955 Abdominal aortic aneurysm screening Abdominal Aortic Aneurysm Screening [facility] Start: 1955 Echocardiography Echocardiogram [facility] Start: 1955 Medicare Annual Wellness (AWV) Medicare Annual Wellness (AWV) [facility] Start: 1955 Screening for malignant neoplasm of colon [facility] End: 06-18-2023 CT [facility]: Comment on above: Once for 1 Occurrences starting 06/18/19 24 until 06/18/2023 ECG 12 lead ECG 12 lead CV E CG Routine 07/30/2023 7:18 AM EDT [employer] ECG 12 lead - CLINIC PERFORMED ECG 12 lead - CLINIC PERFORMED CV ECG Routine Acute deep vein thrombosis (DVT) of right lower extremity, unspecified vein (HCC) 06/09/2023 12:08 PM EST [employer] Work Phone: ECG 12 lead - CLINIC PERFORMED ECG 12 lead - CLINIC PERFORMED CV ECG Routine S/P mitral valve replacement 07/16/2023 8:15 AM EST [employer] Work Phone: ECG 12 lead - CLINIC PERFORMED ECG 12 lead - CLINIC PERFORMED CV ECG Routine Severe mitral regurgitation 08/06/2023 9:04 AM EDT [employer] Work Phone: ECG 12 lead - CLINIC PERFORMED ECG 12 lead - CLINIC PERFORMED CV ECG Routine Mitral valve insufficiency, unspecified etiology 09/03/2023 9:30 AM EDT [employer] Work Phone: ECG 12 lead - CLINIC PERFORMED ECG 12 lead - CLINIC PERFORMED CV ECG Routine Severe mitral regurgitation 09/10/2023 10:04 AM EDT [employer] Work Phone: ECG 12 lead STAT ECG 12 lead STA T CV ECG STAT 07/29/2023 1:23 PM EDT [employer] Work Phone: ECG B/O W INTERP (ME D OFFICE) ECG B/O W INTERP (MED OFFICE) ECG Routine Bradycardia Vegetative endocarditis of mitral valve Ordered: 06/10/[address] [facility] Work Phone: Comment on above: Ordered: 06/10/2024 Ins new/rplc prm pacemaker w/transv eltrd ventr REPLACEMENT OF PERMANENT PACEMAKER W/ INSERTION OF NEW TRANSVENOUS ELECTRODE VENTRICLE Failure of pacemaker lead, initial encounter [facility] new/rplcmt prm p m w/transv eltrd atrial&vent (NEW IMPLANT DUAL CHAMBER PPM) INSERTION OF A NEW PERMANENT PACEMAKER W/ INSERTION OF NEW TRANSVENOUS ELECTRODE(S) ATRIAL & VENTRICULAR Failure of pacemaker lead, initial encounter [facility] Microbial culture, routine Wound Culture [facility] Work Phone: Njx px xtr vngrph w/ intro ndl/intracath VENOGRAM EXTREMITIES Failure of pacemaker lead, initial encounter [facility] Njx px xtr vngrph w/ intro ndl/intracath VENOGRAM EXTREMITIES Failure of pacemaker lead, initial encounter [facility] Patient Education [facility] Work Phone: [facility] Work Phone: End: 05-27-2023 Prothrombin time (PT) in Blood by Coagulation assay Protime-INR Lab Routine senior living (current) use of anticoagulants Once (Lab) for 1 Occurrences starting 05/27/2023 until 05/27/2023 [facility] Work Phone: Comment on above: Once (Lab) for 1 Occurrences starting until 05/27/2023 End: 05-29-2023 Prothrombin time (PT) in Blood by Coagulation assay Protime-INR Lab STAT senior living (current) use of anticoagulants STAT (Lab) for 1 Occurrences starting 05/29/2023 until 05/29/[address] [facility] Comment on above: STAT (Lab) for 1 Occurrences starting until 05/29/2023 RIGHT HEART CATH RIGHT HEART CAT H 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) [facility] Rmvl transvns pm elt rd dual lead sys REMOVAL PACEMAKER ELECTRODE DUAL LEAD SYSTEM Failure of pacemaker lead, initial encounter [facility] Immunizations Immunization Date Immunization Notes Care Provider Tristan [facility] 03-30-2024 respiratory syncytia l virus (RSV) vaccine, adjuvanted (AREXVY) Karthik Snider APRN.FEATHERER Work Phone: [facility] 03-30-2024 Respiratory syncytia l virus (RSV), unspecified Lance Hobbs MD Work Phone: [facility] 01-21-2024 influenza, seasonal, injectable Karthik Snider APRN.FEATHERER Work Phone: [facility] 01-21-2024 influenza virus vacc ine, unspecified formulation Josephine Lees APRN - FEATHERER Work Phone: [facility] 12-09-2023 tetanus toxoid, redu hector diphtheria toxoid, and acellular pertussis vaccine, adsorbed Karthik Snider APRN.FEATHERER Work Phone: [facility] 02-25-2023 influenza, injectabl e, quadrivalent, contains preservative Lance Hobbs MD Work Phone: [facility] 02-25-2023 influenza virus vacc ine, unspecified formulation Myah Hennessy MD Work Phone: [facility] 10-01-2021 Moderna SARS-CoV-2 Vaccination Lance Hobbs MD Work Phone: [facility] 05-29-2021 Covid (Moderna) Dr. Fracisco Carvalho Work Phone: [facility] 04-01-[address] Fracisco Carvalho Work Phone: [facility] 04-01-2021 influenza, seasonal, injectable Lance Hobbs MD Work Phone: [facility] 03-24-2021 Covid (Moderna) Dr. Fracisco Carvalho Work Phone: [facility] 03-01-2021 Covid (Moderna) Dr. Fracisco Carvalho Work Phone: [facility] 02-18-2021 influenza, injectabl e, quadrivalent, contains preservative Lance Hobbs MD Work Phone: [facility] 02-18-2021 pneumococcal polysaccharide vaccine, 23 valent Lance Hobbs MD Work Phone: [facility] 01-24-2020 influenza, injectabl e, quadrivalent, preservative free Lance Hobbs MD Work Phone: [facility] 12-16-2018 influenza, injectabl e, quadrivalent, contains preservative Lance Hobbs MD Work Phone: [facility] 09-22-2018 zoster vaccine recombinant Lance Hobbs MD Work Phone: [facility] 03-22-2018 influenza, seasonal, injectable Lance Hobbs MD Work Phone: [facility] 01-25-2018 influenza, injectabl e, quadrivalent, preservative free Lance Hobbs MD Work Phone: [facility] 01-21-2018 zoster vaccine recombinant Lance Hobbs MD Work Phone: [facility] 01-12-2017 influenza, seasonal, injectable Lance Hobbs MD Work Phone: [facility] 12-31-2015 influenza, seasonal, injectable Lance Hobbs MD Work Phone: [facility] 02-05-2015 influenza, seasonal, injectable Lance Hobbs MD Work Phone: [facility] 09-13-2014 pneumococcal conjuga te vaccine, 10 valent Lance Hobbs MD Work Phone: [facility] 09-13-2014 pneumococcal polysaccharide vaccine, 23 valent Lance Hobbs MD Work Phone: [facility] 09-13-[address] Fracisco Carvalho Work Phone: [facility] Work Phone: 09-13-2014 pneumococcal vaccine , unspecified formulation Dr. Fracisco Carvalho Work Phone: [facility] 08-25-2014 tuberculin skin test ; purified protein derivative solution, intradermal Lance Hobbs MD Work Phone: [facility] 02-15-[address] Fracisco Carvalho Work Phone: [facility] 02-15-2014 influenza, high dose seasonal, preservative-free Karthik Snider APRN.CNP Work Phone: [facility] 02-15-2014 influenza, seasonal, injectable Lance Hobbs MD Work Phone: [facility] 02-15-2014 influenza, seasonal, injectable, preservative free Lance Hobbs MD Work Phone: [facility] 01-21-2011 influenza virus vacc ine, unspecified formulation Brandin Alvarado MD Work Phone: [facility] 04-07-2007 influenza virus vacc ine, whole virus Lance Hobbs MD Work Phone: [facility] Payers Date Payer Category Payer Self-pay [id number] 2021 [facility] [id number] 2021 Medicare supplementa l policy (as second payer) [facility] MEDICARE SUPPLEMENT [id number] 2021 Unknown [id number] 2021 Unknown [id number] 2014 Private Health Insurance 2014 Private Health Insurance [employer]ha ETNA PPO [id number] 2014-Present PPO [id number] 2011 Private Health Insurance [id number] 2004 Medicare [id number] 2004 Medicare [id number] 1955 Unknown [id number] Unknown [id number] Unknown [id number] 9.2.462 Unknown [id number] 9.2.462 Unknown [id number] 9.2.462 Unknown [id number] 9.2.462 Unknown [id number] 9.2.462 Unknown [id number] 9.2.462 Unknown [id number] 9.2.462 Unknown [id number] 9.2.462 Unknown [id number] 9.2.462 Unknown [id number] 9.2.462 Unknown [id number] 9.2.462 Unknown [id number] 9.2.462 Unknown [id number] 9.2.462 Unknown [id number] 9.2.462 Unknown [id number] 9.2.462 Unknown [id number] 9.2.462 Unknown [id number] 9.2.462 Unknown [id number] 9.2.462 Social History Date Type Detail Facility Start: 09-26-2015 End: 02-23-2024 Tobacco smoking status [facility] Former smoker [facility] Start: 04-30-1975 End: 05-18-2022 History of tobacco use Current smoker [facility] Work Phone: Start: 04-30-1975 End: 05-18-2022 History of tobacco use Cigarette Smoker [facility] Work Phone: Start: 09-26-2015 End: 07-30-2023 Cigarettes smoked current (pack per day) - Reported [facility] Start: 09-26-2015 End: 05-25-2023 Alcohol intake Current drinker of alcohol (finding) [facility] Start: 04-11-2009 Alcohol Comment [facility] Start: 1955 Sex Assigned At Not on file [facility] Start: 07-25-2021 End: 09-25-2023 Tobacco smoking status PRIS Unknown if ever smoked [facility] Start: 09-15-2020 Rare [facility] Start: 09-15-2020 None [facility] Start: 09-15-2020 Cigarettes [facility] Start: 1955 Sex Assigned At Male [facility] Start: 05-12-2015 Spouse/ Signif icant Other [facility] Start: 04-30-1975 [facility] daily [facility] Start: 04-30-2023 End: 02-23-2024 Tobacco use and exposure Former smokeless tobacco user [facility] End: 04-30-2015 History of tobacco use User of smokeless tobacco [facility] Start: 04-30-2023 End: 07-30-2023 Tobacco use panel [facility] Within the last year , have you been afraid of your partner or ex-partner? No [facility] Start: 07-09-2023 Gender identity Identifies as male gender (finding) [facility] (I/We) worried wheth er (my/our) food would run out before (I/we) got money to buy more. Never true [facility] [employer] In the past 12 month s, has lack of transportation kept you from medical appointments or from getting medications? No [facility] Start: 01-22-2024 End: 03-06-2025 Alcoholic beverage intake Ex-drinker (finding) [facility] Start: 12-16-2021 Sex Male (finding) [facility] Start: 06-10-2024 Tobacco use and exposure Smoke less tobacco non-user [facility] NEGATED: Highlighted rowStart: JENNY History of tobacco use Passive smoker [facility] Medical Equipment Procedure Code Equipment Code Equipment Origin al Text Equipment Identifier Dates [place] Ptfe 1.2 Cm X 10 Cm - [id number] Start: 01-13-2011 Comment on above: Description: pledget s x 3 pieces Valve Mitrl 20mm 33mm Biocor - [id number] Start: 01-13-2011 Comment on above: Description: mvr Plug Cv 9mm 12mm .071in Amplzr - [id number] Start: 07-29-2023 Kit Embo Avm Phylicia x 18 - [id number] Start: 01-06-2024 Device Clsr Mynxgrip 6-7fr Grn - [id number] Start: 01-06-2024 Goals Date Patient Goal Desired Activity /State Personal health goal Functional Status Date Assessment Result Facility 03-09-2025 Patient Health Questionnaire 2 item (PHQ-2) [Reported] [facility] 07-07-2024 Are you deaf, or do you have serious difficulty hearing No 07/07/2024 12:37 PM Sherie Dominique RN [facility] 07-07-2024 Are you blind, or do you have serious difficulty seeing, even when wearing glasses No 07/07/2024 12:37 PM Sherie Dominique RN No [facility] 07-07-2024 Do you have serious difficulty walking or climbing stairs No 07/07/2024 12:37 PM Sherie Dominique RN [facility] 07-07-2024 Do you have difficul ty dressing or bathing No 07/07/2024 12:37 PM Sherie Dominique RN [facility] 07-07-2024 Because of a physica l, mental, or emotional condition, do you have difficulty doing errands alone such as visiting a physician's office or shopping No 07/07/2024 12:37 PM Sherie Dominique RN [facility] 08-24-2023 Functional Status Awake [facility] 08-24-2023 Functional Status Maintained [facility] 10-02-2021 Functional status Ambulates;Carlos Manuel r;Bathroom Privilege [facility] Work Phone: 06-08-2021 Functional status Chair [facility] Work Phone: Mental Status Date Assessment Result Facility 07-07-2024 Because of a physica l, mental, or emotional condition, do you have serious difficulty concentrating, remembering, or making decisions No 07/07/2024 12:37 PM Sherie Dominique RN No [facility] 08-24-2023 Mental Status Orientation Oriented x 4 [facility] 08-24-2023 Mental Status [facility] 10-02-2021 Cognitive function Voice/Name [facility] Work Phone: 06-07-2021 Cognitive function Voice/Name [facility] Work Phone: Clinical Notes 01-13-2011 to 03-09-2025 Lance Hobbs MD - 03/09/2025 11:15 AM EDT Note Date & Type Note Facility 03-09-2025 History of Present illness Narrative CARDIOLOGY HEART FAILURE PROGRESS NOTE Today's Date: 03/09/25 Chart and interval events reviewed. Chief Complaint Chief Complaint Patient presents with Annual Exam Congestive Heart Failure Hypertension Cardiomyopathy Chronic Kidney Disease Hyperlipidemia Subjective: Mr. Walls is a 69-year-old man with a history of heart failure [...] including an echocardiogram from January 2011 at [facility] [place] which showed LVEF 49%, and a well-functioning bioprosthetic MV with a mean gradient of 4 mmHg. He has been following with the group in [place]. He underwent a TTE in February 2023 that showed LVEF 60%, with a mean gradient across the mitral valve 8 mmHg, with moderate to severe TR and an RVSP of 90 mmHg. When I first met him, with the above information we performed a RHC that suggested severe mitral regurgitation as a cause of his pulmonary hypertension. Right atrial pressure was 14, PA 88/27, with a wedge of 22. MING showed severe paravalvular regurgitation. He went on to have percutaneous plugging with the valve team, and repeat TTE which showed LVEF 55%, with mildly reduced RV function, and no significant mitral regurgitation. RVSP was in the 40s. Basic metabolic panel in June 2024 was normal. Since our last visit, he is feeling the same, but overall improved compared to before. He denies any fatigue, lightheadedness, orthopnea, PND, lower extremity edema, palpitations, and chest pain. Past Medical History: Past Medical History: Diagnosis Date Anemia Arthritis Bone infection ([facility]) spine CAD (coronary artery disease) Chronic back pain Chronic kidney disease 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) 04/30/2023 COPD (chronic obstructive pulmonary disease) ([facility]) Depression DVT (deep venous thrombosis) ([facility]) Endocarditis Head injury History of blood transfusion Hyperlipidemia Hypertension 01/13/2011 Hyperthyroidism Pacemaker Paroxysmal A-fib ([facility]) Pneumonia Sleep apnea Past Surgical History Past Surgical History: Procedure Laterality Date CARDIAC CATHETERIZATION N/A 05/25/2023 Performed by Lance Hobbs MD at [facility] Cardiac Cath/EP Lab CARDIAC VALVE REPLACEMENT 2010 [facility] HARDWARE REMOVAL Right 05/02/2016 SCREW IN RIGHT 4TH TOE INSERT / REPLACE / REMOVE PACEMAKER 10/10/2014 MITRAL VALVE REPLACEMENT 07/27/2014 bioprosthetic valve TRICUSPID VALVE SURGERY 07/27/2014 Repair Family History Family History Problem Relation Name Age of Onset Atrial fibrillation Mother Other ([address]) Mother pacemaker Heart disease Father Social History Social History Tobacco Use Smoking status: Former Current packs/day: 0.00 Average packs/day: 0.5 packs/day for 47.0 years (23.5 ttl pk-yrs) Types: Cigarettes Start date: 04/30/1975 Quit date: 2022 Years since quittin.8 Passive exposure: Never Smokeless tobacco: Former Quit date: 04/30/2015 Substance Use Topics Alcohol use: Not Currently Drug use: Not Currently Types: Heroin, Crack cocaine Comment: Former user/ caffeine- 1 cup of coffee daily Allergies: No Known Allergies Current Medications: Current Outpatient Medications Medication Sig Dispense Refill amoxicillin (Amoxil) 500 MG tablet Take 1,000 mg by mouth. atorvastatin (Lipitor) 20 MG tablet Take 20 mg by mouth in the morning. buPROPion SR (Wellbutrin SR) 150 MG 12 hr tablet Take 150 mg by mouth 2 times daily. citalopram (CeleXA) 20 MG tablet Take 20 mg by mouth daily. dabigatran etexilate (Pradaxa) 150 MG capsule Take 1 capsule (150 mg) by mouth 2 times daily. Do not crush or chew. 180 capsule 3 doxepin (SINEquan) 150 MG capsule Take 150 mg by mouth Nightly. furosemide (Lasix) 40 MG tablet Take 40 mg by mouth if needed. HYDROcodone-acetaminophen (Lemoore) 5-325 MG tablet TAKE 1 TABLET BY MOUTH FOUR TIMES DAILY FOR 28 DAYS levothyroxine (Synthroid, Levoxyl) 100 MCG tablet Take 100 mcg by mouth every morning (before breakfast). metoprolol succinate XL (Toprol-XL) 50 MG 24 hr tablet Take 50 mg by mouth daily. potassium chloride CR (Klor-Con M20) 20 MEQ ER tablet TAKE 1 TABLET (20 MEQ) BY MOUTH EVERY OTHER DAY. DO NOT CRUSH OR CHEW. TAKE 2 TABS ON DAY 1 AND THEN 1 TAB ON EVERY OTHER DAY THERAFTER 47 tablet 5 sildenafil (Viagra) 100 MG tablet Take 100 mg by mouth Daily as needed. spironolactone (Aldactone) 25 MG tablet TAKE 1 TABLET BY MOUTH EVERY DAY 90 tablet 3 sulfacetamide suspension (Klaron) 10 % lotion topical Apply 1 Application topically Nightly. tamsulosin (Flomax) 0.4 MG 24 hr capsule Take 0.4 mg by mouth in the morning and 0.4 mg in the evening. tiZANidine (Zanaflex) 4 MG tablet TAKE 1 TABLET ORAL TWICE A DAY FOR 30 DAYS traZODone (Desyrel) 100 MG tablet Take 200 mg by mouth Nightly. albuterol 108 (90 Base) MCG/ACT inhaler TAKE 2 PUFFS INHALED 6 TIMES PER DAY FOR 30 DAYS NEEDED WHEEZING/SHORTNESS OF BREATH. (Patient not taking: Reported on 04/29/2024) No current facility-administered medications for this visit. Review of Systems: All other systems were reviewed and are negative other than as noted in the HPI. Vital Signs: Vitals: 03/09/25 1117 BP: 116/68 BP Location: Left arm Patient Position: Sitting BP Cuff Size: Adult Pulse: 70 SpO2: 91% Weight: 141 lb 6.4 oz (64.1 kg) Height: 5' 9 (1.753 m) Body mass index is 20.88 kg/m . Wt Readings from Last 3 Encounters: 03/09/25 141 lb 6.4 oz (64.1 kg) 04/29/24 164 lb (74.4 kg) 03/11/24 152 lb (68.9 kg) Physical Exam Constitutional: Appearance: Normal appearance. [...] is alert. CBC: No results for input(s): WBC, HGB, HCT, PLT in the last 72 hours. BMP:No results for input(s): NA, K, CL, CO2, BUN, CREATININE, GLU, LABGLOM in the last 72 hours. No [...] INR: Lab Results Component Value Date INR 1 07/06/2024 INR 1.4 (H) 01/01/2024 INR 1.2 (H) 07/30/2023 PROTIME 15.1 (H) 01/01/2024 PROTIME 12.4 (H) 07/30/2023 PROTIME 12.4 (H) 07/29/2023 PRO-BNP: Lab Results Component Value Date BNP 9,550 (H) 09/03/2023 TSH: Lab Results Component Value Date TSH 2.416 09/03/2023 Lipid Profile: No results found for: TRIG, HDL, LDLCALC, CHOL Hemoglobin A1C: No results found for: HGBA1C GRISELDA: No results found for: GRISELDA Ferritin: No results found for: FERRITIN HIV: No results found for: [id number] EKG: See Report Echo: See Report EF: No components found for: LVEF, LVEFMODE IMPRESSIONS: Diagnosis Plan 1. 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) ECG 12 lead - CLINIC PERFORMED 2. Prosthetic cardiac paravalvular leak, initial encounter ECG 12 lead - CLINIC PERFORMED 3. Bacterial endocarditis, unspecified chronicity ECG 12 lead - CLINIC PERFORMED 4. S/P mitral valve replacement 5. Chronic diastolic heart failure (HCC) 6. Pulmonary hypertension (HCC) 7. Severe mitral regurgitation 8. CKD (chronic kidney disease) stage 2, GFR 60-89 ml/min 9. Other hyperlipidemia SDH. He is on warfarin for atrial fibrillation. Will switch to apixaban 5 mg BID to reduce the risk of future ICH. Pulmonary hypertension/paravalvular leak now status post block: Repeat TTE showed improvement of the mitral regurgitation, and improved RVSP. His current medications include furosemide 40 mg PRN (1-2 times per month). spironolactone 25 mg/day, and was on empagliflozin 10 mg/day which appears to have been stopped. Today we will make his furosemide PRN for water retention. Bioprosthetic mitral valve replacement: With a #29 Medtr[employer] tissue valve in 2014 at [facility]. He is functioning well and his paravalvular leak plugging was successful. I ordered repeat TTE for 2025. Paroxysmal atrial fibrillation: He is on dabigatran and metoprolol 50 mg/day. Today we will make no changes. I, Lance Hobbs MD, PhD, furnished ongoing care related to Brianne Walls for their congestive heart failure, a serious and complex condition. I assume responsibility for the patient's ongoing medical care for this condition. Lance Hobbs MD, PhD Advanced Heart Failure Cardiology [facility]. [facility] [place] 11:58 AM 03/09/25 documented in this encounter [facility] 03-09-2025 Note CARDIOLOGY HEART KAVIN LURE PROGRESS NOTE Today's Date: 03/09/25 Chart and interval events reviewed. Chief Complaint Chief Complaint Patient presents with Annual Exam Congestive Heart Failure Hypertension Cardiomyopathy Chronic Kidney Disease Hyperlipidemia Subjective: Mr. Walls is a 69-year-old man with a history of heart failure [...] including an echocardiogram from January 2011 at [facility] [place] which showed LVEF 49%, and a well-functioning bioprosthetic MV with a mean gradient of 4 mmHg. He has been following with the group in [place]. He underwent a TTE in February 2023 that showed LVEF 60%, with a mean gradient across the mitral valve 8 mmHg, with moderate to severe TR and an RVSP of 90 mmHg. When I first met him, with the above information we performed a RHC that suggested severe mitral regurgitation as a cause of his pulmonary hypertension. Right atrial pressure was 14, PA 88/27, with a wedge of 22. MING showed severe paravalvular regurgitation. He went on to have percutaneous plugging with the valve team, and repeat TTE which showed LVEF 55%, with mildly reduced RV function, and no significant mitral regurgitation. RVSP was in the 40s. Basic metabolic panel in June 2024 was normal. Since our last visit, he is feeling the same, but overall improved compared to before. He denies any fatigue, lightheadedness, orthopnea, PND, lower extremity edema, palpitations, and chest pain. Past Medical History: Past Medical History: Diagnosis Date Anemia Arthritis Bone infection (HCC) spine CAD (coronary artery disease) Chronic back pain Chronic kidney disease 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) 04/30/2023 COPD (chronic obstructive pulmonary disease) (HCC) Depression DVT (deep venous thrombosis) ([facility]) Endocarditis Head injury History of blood transfusion Hyperlipidemia Hypertension 01/13/2011 Hyperthyroidism Pacemaker Paroxysmal A-fib ([facility]) Pneumonia Sleep apnea Past Surgical History Past Surgical History: Procedure Laterality Date CARDIAC CATHETERIZATION N/A 05/25/2023 Performed by Lance Hobbs MD at [facility] Cardiac Cath/EP Lab CARDIAC VALVE REPLACEMENT 2010 MVR/CCF HARDWARE REMOVAL Right 05/02/2016 SCREW IN RIGHT 4TH TOE INSERT / REPLACE / REMOVE PACEMAKER 10/10/2014 MITRAL VALVE REPLACEMENT 07/27/2014 bioprosthetic valve TRICUSPID VALVE SURGERY 07/27/2014 Repair Family History Family History Problem Relation Name Age of Onset Atrial fibrillation Mother Other (36496) Mother pacemaker Heart disease Father Social History Social History Tobacco Use Smoking status: Former Current packs/day: 0.00 Average packs/day: 0.5 packs/day for 47.0 years (23.5 ttl pk-yrs) Types: Cigarettes Start date: 04/30/1975 Quit date: 2022 Years since quittin.8 Passive exposure: Never Smokeless tobacco: Former Quit date: 04/30/2015 Substance Use Topics Alcohol use: Not Currently Drug use: Not Currently Types: Heroin, Crack cocaine Comment: Former user/ caffeine- 1 cup of coffee daily Allergies: No Known Allergies Current Medications: Current Outpatient Medications Medication Sig Dispense Refill amoxicillin (Amoxil) 500 MG tablet Take 1,000 mg by mouth. atorvastatin (Lipitor) 20 MG tablet Take 20 mg by mouth in the morning. buPROPion SR (Wellbutrin SR) 150 MG 12 hr tablet Take 150 mg by mouth 2 times daily. citalopram (CeleXA) 20 MG tablet Take 20 mg by mouth daily. dabigatran etexilate (Pradaxa) 150 MG capsule Take 1 capsule (150 mg) by mouth 2 times daily. Do not crush or chew. 180 capsule 3 doxepin (SINEquan) 150 MG capsule Take 150 mg by mouth Nightly. furosemide (Lasix) 40 MG tablet Take 40 mg by mouth if needed. HYDROcodone-acetaminophen (Lemoore) 5-325 MG tablet TAKE 1 TABLET BY MOUTH FOUR TIMES DAILY FOR 28 DAYS levothyroxine (Synthroid, Levoxyl) 100 MCG tablet Take 100 mcg by mouth every morning (before breakfast). metoprolol succinate XL (Toprol-XL) 50 MG 24 hr tablet Take 50 mg by mouth daily. potassium chloride CR (Klor-Con M20) 20 MEQ ER tablet TAKE 1 TABLET (20 MEQ) BY MOUTH EVERY OTHER DAY. DO NOT CRUSH OR CHEW. TAKE 2 TABS ON DAY 1 AND THEN 1 TAB ON EVERY OTHER DAY THERAFTER 47 tablet 5 sildenafil (Viagra) 100 MG tablet Take 100 mg by mouth Daily as needed. spironolactone (Aldactone) 25 MG tablet TAKE 1 TABLET BY MOUTH EVERY DAY 90 tablet 3 sulfacetamide suspension (Klaron) 10 % lotion topical Apply 1 Application topically Nightly. tamsulosin (Flomax) 0.4 MG 24 hr (more content not included)... [facility] 12-29-2024 Procedure note [facility] 12-29-2024 Evaluation note Diagnosis Onset Date Resolution Paroxysmal atrial fibrillation acute December 29, 2024 8:29am Cardiac pacemaker in situ chronic December 29, 2024 8:29am Essential (primary) hypertension chronic December 29, 2024 8:29am History of mitral valve replacement with bioprosthetic valve July 27, 2014 chronic December 29, 2024 8:29am History of tricuspid valve repair July, chronic December 29, 2024 8:29am Pure hypercholesterolemia chronic December 29, 2024 8:29am Paroxysmal atrial fibrillation acute December 29, 2024 8:29am Sick sinus syndrome acute Augus t 2024 8:29am Cardiac pacemaker in situ chronic December 29, 2024 8:29am [facility] Work Phone: 1(195) 516-775807-31-2025 Telephone encounter Note* Telephone Encounter - Diana Chavarria RN - 12/15/2024 9:56 AM EDT YANE KV 02/23/24 NOV KV 02/22/25 Labs 07/07/[address] [facility] [id number] Miscellaneous Notes* Telephone Encounter - Diana Chavarria RN - 12/15/2024 9:56 AM EDT YANE KV 02/23/24 NOV KV 02/22/25 Labs 07/07/24 Rx Pended. documented in this encounterSProMedica Memorial [id number] Telephone encounter Note* Telephone Encounter - Lance Hobbs MD - 10/14/2024 4:37 PM EDT Images from the original note were not included. [facility] CARDIOLOGY - [address] [address] Dept: [phone] Dept 10/14/24 To Whom It May Concern, Concerning our mutual patient, Brianne Walls, : 1955, for cardiovascular risk assessment: Procedure/Surgery: Tooth extraction under anesthesia Medical status of patient: [x]Chronic cardiac issues stable as of February 2024. I have not reviewed or evaluated the patient since then. This means that review of systems will need to be obtained at the time of the procedure by the proceduralist or the anesthesiologist to verify that his clinical condition has not changed winifred reciably since February 2024. Antiplatelet agents, oral anticoagulants management (if any): Dabigatran can be held 3 days before the procedure and restarted when safe. Other cardiovascular concerns/medications requiring attention perioperatively: N/A Estimated risk of MACE: [] Low (< 1%) [x] Intermediate (1 to 5%) [] High (>5%) Able to proceed given current status and risks as outlined. [x]Yes []No If you have any questions please contact me. Lance Hobbs MD, PhD Advanced Heart Failure Cardiology [facility]. [facility] [place] 4:38 PM 10/14/[address] [facility] [id number] Miscellaneous Notes* Telephone Encounter - Lance Hobbs MD - 10/14/2024 4:37 PM EDT Images from the original note were not included. [facility] [address] [facility] [address] Dept: [phone] Dept 10/14/24 To Whom It May Concern, Concerning our mutual patient, Brianne Walls, : 1955, for cardiovascular risk assessment: Procedure/Surgery: Tooth extraction under anesthesia Medical status of patient: [x]Chronic cardiac issues stable as of February 2024. I have not reviewed or evaluated the patient since then. This means that review of systems will need to be obtained at the time of the procedure by the proceduralist or the anesthesiologist to verify that his clinical condition has not changed winifred reciably since February 2024. Antiplatelet agents, oral anticoagulants management (if any): Dabigatran can be held 3 days before the procedure and restarted when safe. Other cardiovascular concerns/medications requiring attention perioperatively: N/A Estimated risk of MACE: [] Low (< 1%) [x] Intermediate (1 to 5%) [] High (>5%) Able to proceed given current status and risks as outlined. [x]Yes []No If you have any questions please contact me. Lance Hobbs MD, PhD Advanced Heart Failure Cardiology [facility]. Heart [facility] [place] 4:38 PM 10/14/24 * Telephone Encounter - Estefania Clemente MA - 10/14/2024 3:36 PM EDT Pt needs clearance for tooth extraction with versed,ketamine, fentanyl,atropine dexamethasone &propofal. Please let me know when done & I will fax to [phone] documented in this encounterSProMedica Memorial [id number] Telephone encounter Note* Telephone Encounter - Estefania Clemente MA - 10/14/2024 3:36 PM EDT Pt needs clearance for tooth extraction with versed,ketamine, fentanyl,atropine dexamethasone &propofal. Please let me know when done & I will fax to [phone] [facility] [id number] Telephone encounter Note* Telephone Encounter - Cora Marx - 09/05/2024 9:56 AM EDT FYI- Jardiance script still on file at [facility] know patient will not be taking medication due to cost at this time. Thank you! [facility] [id number] Miscellaneous Notes* Telephone Encounter - Cora Marx - 09/05/2024 9:56 AM EDT FYI- Jardiance script still on file at [facility] know patient will not be taking medication due to cost at this time. Thank you! * Telephone Encounter - Diana Chavarria RN - 08/31/2024 1:00 PM EDT Called pt with instructions to start the Pradaxa 150 mg twice daily after stopping the Eliquis- rx sent to [facility] pharmacy. Pt verbalized understanding. * Telephone Encounter - Lance Hobbs MD - 08/31/2024 12:37 PM EDT done * Telephone Encounter - Diana Chavarria RN - 08/31/2024 9:40 AM EDT LMOVM for spouse with this information- my chart message also sent. Requested spouse call back withmedication decision- Pradaxa most cost effective to replace Eliquis, no substitute for Jardiance. * Telephone Encounter - Nakita Carter - 08/30/2024 11:04 AM EDT Both Jardiance and Farxiga show about $400/90ds. Xarelto also showing about the same cost as Eliquis at a little over $400/90ds. Unfortunately through Medicare plans Eliquis/Xarelto and Jardiance/Farxiga typically fall within the same tier and willbe very comparable cost for the patient. Generic Pradaxa is slightly more cost effective showing at about $262/90ds. Thank you! * Telephone Encounter - Estefania Clemente - 08/26/2024 8:10 AM EDT [facility]ts called and [facility] Jardiance & Eliquis documented in this [facility]04-16-2025 Miscellaneous Notes* Telephone Encounter - Diana Chavarria RN - 08/31/2024 1:00 PM EDT Called pt with instructions to start the Pradaxa 150 mg twice daily after stopping the Eliquis- rx sent to [facility] pharmacy. Pt verbalized understanding. * Telephone Encounter - Lance oHbbs MD - 08/31/2024 12:37 PM EDT done * Telephone Encounter - Diana Chavarria RN - 08/31/2024 9:40 AM EDT LMOVM for spouse with this information- my chart message also sent. Requested spouse call back withmedication decision- Pradaxa most cost effective to replace Eliquis, no substitute for Jardiance. * Telephone Encounter - Nakita Carter - 08/30/2024 11:04 AM EDT Both Jardiance and Farxiga show about $400/90ds. Xarelto also showing about the same cost as Eliquis at a little over $400/90ds. Unfortunately through Medicare plans Eliquis/Xarelto and Jardiance/Farxiga typically fall within the same tier and willbe very comparable cost for the patient. Generic Pradaxa is slightly more cost effective showing at about $262/90ds. Thank you! * Telephone Encounter - Estefania Clemente - 08/26/2024 8:10 AM EDT Pts called and said [facility] and [facility] cannot afford Jardiance & Eliquis documented in this encounterSProMedica Memorial [id number] Telephone encounter Note* Telephone Encounter - Diana Chavarria RN - 08/31/2024 1:00 PM EDT Called pt with instructions to start the Pradaxa 150 mg twice daily after stopping the Eliquis- rx sent to [facility] pharmacy. Pt verbalized understanding. [facility] [id number] Telephone encounter Note* Telephone Encounter - Lance Hobbs MD - 08/31/2024 12:37 PM EDT done [place] [id number] Telephone encounter Note* Telephone Encounter - Diana Chavarria RN - 08/31/2024 9:40 AM EDT LMOVM for spouse with this information- my chart message also sent. Requested spouse call back withmedication decision- Pradaxa most cost effective to replace Eliquis, no substitute for Jardiance. [place] [id number] Telephone encounter Note* Telephone Encounter - Nakita Carter - 08/30/2024 11:04 AM EDT Both Jardiance and Farxiga show about $400/90ds. Xarelto also showing about the same cost as Eliquis at a little over $400/90ds. Unfortunately through Medicare plans Eliquis/Xarelto and Jardiance/Farxiga typically fall within the same tier and willbe very comparable cost for the patient. Generic Pradaxa is slightly more cost effective showing at about $262/90ds. Thank you! [facility] [id number] Telephone encounter Note* Telephone Encounter - Estefania Clemente - 08/26/2024 8:10 AM EDT Pts called and said [facility] and [facility] cannot afford Jardiance & Eliquis [facility] [id number] Evaluation note* Diagnosis Onset Date Resolution Status Admit Date Sick sinus syndrome acute Febru alison2024 8:48am Cardiac pacemaker in situ chronic July 13, 2024 8:48am Paroxysmal atrial fibrillation acute August 17, 2024 9:51am Sick sinus syndrome acute August 17, 2024 9:51am Cardiac pacemaker in situ chronic August 17, 2024 9:51am [employer] Work Phone: 1(341) 762-148802-24-2025 Telephone encounter Note* Telephone Encounter - Karthik Snider APRN.CNP - 07/11/2024 12:56 PM EST Confirmed with Kalani Sandhu at [place] [facility] patient is scheduled for wound check with Aquacelremoval on 07/13/2024 at 0900. Karthik Snider APRN.CNP July 11, 2024 12:57 PM [facility]02-24-2025 Miscellaneous Notes* Telephone Encounter - Karthik Snider APRN.CNP - 07/11/2024 12:56 PM EST Confirmed with Kalani Sandhu at [place] [facility] patient is scheduled for wound check with Aquacelremoval on 07/13/2024 at 0900. Karthik Snider APRN.CNP July 11, 2024 12:57 PM documented in this encounterSelect [facility]25 Telephone encounter Note * Telephone Encounter - Alli Miles RN - 07/08/2024 10:00 AM EST YANE KV 02/23/24 NOV KV 02/22/25 Labs 07/07/[address] [facility] [id number] Miscellaneous Notes* Telephone Encounter - Alli Miles RN - 07/08/2024 10:00 AM EST YANE KV 02/23/24 NOV KV 02/22/25 Labs 07/07/24 Rx Pending documented in this encounterSProMedica Memorial [id number] NoteHNO ID: [id number] Author: BRONSON HUMPHREY RN Service: Electrophysiology Author Type: Registered Nurse Type: Progress Notes Filed: 07/07/2024 15:56 Note Text: Stable PM function. Follow up in [place]. Teaching waldemar. Doug [facility]02-20-2025 Telephone encounter Note* Telephone Encounter - Karthik Snider APRN.CNP - 07/07/2024 12:03 PM EST Patient underwent [place] pacemaker generator change with implantation of new [place] right ventricular apex lead with capping of existing [place] right ventricular apex lead with Dr. North on 07/06/2024. Being discharged later today. Please contact Kalani Sandhu with [place] [facility] to arrange Aquacel removal in 7 to 10 days as patient will continue to have his device followed there. Thanks, Karthik Snider APRN.CNP July 07, 2024 12:04 PM [facility]02-20-2025 Miscellaneous Notes* Telephone Encounter - Karthik Snider APRN.CNP - 07/07/2024 12:03 PM EST Patient underwent [place] pacemaker generator change with implantation of new [place] right ventricular apex lead with capping of existing [place] right ventricular apex lead with Dr. North on 07/06/2024. Being discharged later today. Please contact Kalani Sandhu with [place] [facility] to arrange Aquacel removal in 7 to 10 days as patient will continue to have his device followed there. Thanks, Karthik Snider APRN.CNP July 07, 2024 12:04 PM documented in this encounterSelect [facility]-2025 Telephone encounter Note * Telephone Encounter - Guskyrie Mango - 06/27/2024 3:31 PM EST Patient is scheduled for a Vengogram on 07/[address] North. The hospital will call the day before between 2-5pm with your arrival time. You should not eat or drink after midnight the day before the procedure. You should continue to take medications as prescribed the morning of the procedure with just a sip of water unless otherwise instructed. Patient is also scheduled for an RV lead revision +/- extraction and replacement and generator exchange on 07/[address] North. The hospital will call the day before between 2-5pm with your arrival time. You should not eat or drink after midnight the day before the procedure. You will need a subway train driver when released from the hospital and you will stay overnight for observation. You should continue to take medications as prescribed the morning of the procedure with just a sip of water but hold Eliquis and Jardiance for 3 days prior to the procedure. Left message for Brianne Walls to call back and confirm date & instructions Mango Arita Office use: [facility]02-10-2025 Miscellaneous Notes* Telephone Encounter - Mango Arita - 06/27/2024 3:31 PM EST Patient is scheduled for a Vengogram on 07/[address] North. The hospital will call the day before between 2-5pm with your arrival time. You should not eat or drink after midnight the day before the procedure. You should continue to take medications as prescribed the morning of the procedure with just a sip of water unless otherwise instructed. Patient is also scheduled for an RV lead revision +/- extraction and replacement and generator exchange on 07/[address] North. The hospital will call the day before between 2-5pm with your arrival time. You should not eat or drink after midnight the day before the procedure. You will need a subway train driver when released from the hospital and you will stay overnight for observation. You should continue to take medications as prescribed the morning of the procedure with just a sip of water but hold Eliquis and Jardiance for 3 days prior to the procedure. Left message for Brianne Walls to call back and confirm date & instructions Mango Arita Office use: documented in this encounterSelect [facility]-2025 Instructions* Patient Instructions* Bruna North MD - 06/10/2024 11:43 AM EST RV lead replacement and pacemaker generator change to be scheduled. documented in this encounterSelect [facility]01-24-2025 NoteHNO ID: [id number] Author: BRUNA NORTH MD Service: ? Author Type: Physician Type: Progress Notes Filed: 06/10/2024 12:30 Note Text: PRIMARY CARE PHYSICIAN: Fracisco Carvalho MD [address] [place] [address] REFERRING PHYSICIAN: Matt Royal ([facility]) [address] [facility] [address] Patient Care Team: Fracisco Carvalho Chi as PCP - General (Gerontology) CHIEF COMPLAINT: RV lead noise HISTORY OF PRESENT ILLNESS: Mr. 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 Patient also has a history of infection endocarditis and bioprosthetic valve endocarditis with repeat open heart surgery with mitral valve apparatus with a 29 mm Medtronic tissue valve and a 36 mm tricuspid annuloplasty ring in July 2014. He also had a finding of severe MR on a MING in 05/2023, originally from mid posterior with an eccentrically directed jet. On 07/2023 he underwent perivalvular leak plug of his bioprosthetic mitral valve. Noted to have RV lead noise on his recent remote check and in person device check confirmed this. Noise detected as VT and pacing, leading to oversensing and failure to pace. His WILLIAM is also within 5 months and he presents here as a referral to discuss possible RV lead revision/extraction and generator exchange. We discussed the risks of laser lead extraction including 2% risk of major morbidity including risk of mortality and need for surgical backup given the high risk nature of laser lead extraction. I have confirmed and edited as necessary, the PFSH and ROS obtained by others. 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 Nonrheumatic mitral valve regurgitation PAF (paroxysmal atrial fibrillation) ([facility]) Perivalvular leak of prosthetic heart valve Pure hypercholesterolemia Sleep apnea SSS (sick sinus syndrome) ([facility]) Syncope Tobacco use disorder Umbilical hernia without mention of obstruction or gangrene PAST SURGICAL HISTORY Procedure Laterality Date APPENDECTOMY COLONOSCOPY FLX DX W/COLLJ SPEC WHEN PFRMD 05/18/2015 Colonoscopy PAST SURGICAL HISTORY OF tricuspid valve repair PAST SURGICAL HISTORY OF left ankle PAST SURGICAL HISTORY OF right heel PAST SURGICAL HISTORY OF 07/27/2014 mitral valve replacement with bioprosthetic valve RPR 1ST INGUN HRNA AGE 5 YRS/> REDUCIBLE 05/18/1975 Hernia repair, inguinal, right RPR UMBILICAL HRNA 5 YRS/> REDUCIBLE 04/20/2009 SOCIAL HISTORY Social History Tobacco Use Smoking status: Former Current packs/day: 0.00 Average packs/day: 1.5 packs/day for 25.0 years (37.5 ttl pk-yrs) Types: Cigarettes Start date: 01/08/1986 Quit date: 01/08/2011 Years since quittin.4 Smokeless tobacco: Never Substance Use Topics Alcohol use: Not Currently Comment: Seldomly Drug use: Not Currently Comment: crack,cocaine,heroin FAMILY HISTORY Problem Relation Age of Onset Coronary Artery Disease Father Heart Father ALLERGIES: ALLERGIES No Known Allergies MEDICATIONS: buPROPion SR (WELLBUTRIN SR) 150 mg 12 hr tablet Take 150 mg by mouth two times a day. HYDROcodone-acetaminophen (NORCO) 5-325 mg per tablet Take 1 tablet by mouth four times a day as needed for pain. tiZANidine (ZANAFLEX) 4 mg tablet Take 1 tablet by mouth every 12 hours. furosemide (LASIX) 40 mg tablet Take 40 mg by mouth as needed. JARDIANCE 10 mg tablet Take 10 mg by mouth daily with breakfast. spironolactone (ALDACTONE) 25 mg tablet Take 1 tablet by mouth every afternoon. metoprolol succinate ER (TOPROL XL) 50 mg 24 hr tablet Take 50 mg by mouth once daily. citalopram (CELEXA) 20 mg tablet Take 1 tablet by mouth every afternoon. traZODone (DESYREL) 100 mg tablet Take 100 mg by mouth daily at bedtime. folic acid 1 mg tablet Take 1 mg by mouth once daily. ELIQUIS 5 mg tab(s) Take 5 mg by mouth two times a day. tamsulosin ER (FLOMAX) 0.4 mg cp24 Take 0.4 mg by mouth twice daily. atorvastatin (LIPITOR) 20 mg tablet Take 20 mg by mouth once daily. potassium chloride (K-TAB) 10 mEq tablet Take 10 mEq by mouth twice daily. levothyroxine (SYNTHROID) 100 mcg tablet Take 112 mcg by mouth daily before breakfast. gabapentin (NEURONTIN) 300 mg capsule Take 300 mg by mouth three times daily. (Patient not taking: Reported (more content not included)...[facility]01-24-2025 History of Present illness Narrative* Bruna North MD - 06/10/2024 11:10 AM EST PRIMARY CARE PHYSICIAN: Fracisco Cavralho MD [address] [place] [phone] REFERRING PHYSICIAN: Matt Royal ([facility]) [address] [place] [phone] Patient Care Team: Fracisco Carvalho Chi as PCP - General (Gerontology) CHIEF COMPLAINT: RV lead noise HISTORY OF PRESENT ILLNESS: Mr. 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 Patient also has a history of infection endocarditis and bioprosthetic valve endocarditis with repeat open heart surgery with mitral valve apparatus with a 29 mm Medtronic tissue valve and a 36 mm tricuspid annuloplasty ring in July 2014. He also had a finding of severe MR on a MING in 05/2023, originally from mid posterior with an eccentrically directed jet. On 07/2023 he underwent perivalvular leak plug of his bioprosthetic mitral valve. Noted to have RV lead noise on his recent remote check and in person device check confirmed this. Noise detected as VT and pacing, leading to oversensing and failure to pace. His WILLIAM is also within 5 months and he presents here as a referral to discuss possible RV lead revision/extraction and generator exchange. We discussed the risks of laser lead extraction including 2% risk of major morbidity including riskof mortality and need for surgical backup given the high risk nature of laser lead extraction. I have confirmed and edited as necessary, the PFSH and ROS obtained by others. 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 Nonrheumatic mitral valve regurgitation PAF (paroxysmal atrial fibrillation) ([facility]) Perivalvular leak of prosthetic heart valve Pure hypercholesterolemia Sleep apnea SSS (sick sinus syndrome) ([facility]) Syncope Tobacco use disorder Umbilical hernia without mention of obstruction or gangrene PAST SURGICAL HISTORY Procedure Laterality Date APPENDECTOMY COLONOSCOPY FLX DX W/COLLJ SPEC WHEN PFRMD 05/18/2015 Colonoscopy PAST SURGICAL HISTORY OF tricuspid valve repair PAST SURGICAL HISTORY OF left ankle PAST SURGICAL HISTORY OF right heel PAST SURGICAL HISTORY OF 07/27/2014 mitral valve replacement with bioprosthetic valve RPR 1ST INGUN HRNA AGE 5 YRS/> REDUCIBLE 05/18/1975 Hernia repair, inguinal, right RPR UMBILICAL HRNA 5 YRS/> REDUCIBLE 04/20/2009 SOCIAL HISTORY Social History Tobacco Use Smoking status: Former Current packs/day: 0.00 Average packs/day: 1.5 packs/day for 25.0 years (37.5 ttl pk-yrs) Types: Cigarettes Start date: 01/08/1986 Quit date: 01/08/2011 Years since quittin.4 Smokeless tobacco: Never Substance Use Topics Alcohol use: Not Currently Comment: Seldomly Drug use: Not Currently Comment: crack,cocaine,heroin FAMILY HISTORY Problem Relation Age of Onset Coronary Artery Disease Father Heart Father ALLERGIES: ALLERGIES No Known Allergies MEDICATIONS: buPROPion SR (WELLBUTRIN SR) 150 mg 12 hr tablet Take 150 mg by mouth two times a day. HYDROcodone-acetaminophen (NORCO) 5-325 mg per tablet Take 1 tablet by mouth four times a day as needed for pain. tiZANidine (ZANAFLEX) 4 mg tablet Take 1 tablet by mouth every 12 hours. furosemide (LASIX) 40 mg tablet Take 40 mg by mouth as needed. JARDIANCE 10 mg tablet Take 10 mg by mouth daily with breakfast. spironolactone (ALDACTONE) 25 mg tablet Take 1 tablet by mouth every afternoon. metoprolol succinate ER (TOPROL XL) 50 mg 24 hr tablet Take 50 mg by mouth once daily. citalopram (CELEXA) 20 mg tablet Take 1 tablet by mouth every afternoon. traZODone (DESYREL) 100 mg tablet Take 100 mg by mouth daily at bedtime. folic acid 1 mg tablet Take 1 mg by mouth once daily. ELIQUIS 5 mg tab(s) Take 5 mg by mouth two times a day. tamsulosin ER (FLOMAX) 0.4 mg cp24 Take 0.4 mg by mouth twice daily. atorvastatin (LIPITOR) 20 mg tablet Take 20 mg by mouth once daily. potassium chloride (K-TAB) 10 mEq tablet Take 10 mEq by mouth twice daily. levothyroxine (SYNTHROID) 100 mcg tablet Take 112 mcg by mouth daily before breakfast. gabapentin (NEURONTIN) 300 mg capsule Take 300 mg by mouth three times daily. (Patient not taking: Reported on 06/10/2024) nadolol (CORGARD) 40 mg tablet Take 40 mg by mouth once daily. REVIEW OF SYSTEMS: As in HPI PHYSICAL EXAMINATION: BP 136/82 Pulse 35 Wt 155 lb 6.4 oz (70.5kg) SpO2 95% General: Well appearing, in no acute distress. Neck: No jugular venous distention. Chest: Well-healed PPM incision. Lungs: Clear to auscultation bilaterally. Heart: Regular rhythm, S1, S2 normal. Extremities: No peripheral edema. Neuro: Oriented to person, place and time, alert, cooperative. CARDIOVASCULAR MEDICINE TESTING: Electrocardiogram: Dual paced rhythm with prolonged AV conduction with occasional PVCs. Rate 70 bpm. Device Check: 05/24/2024 About/[place]-RV tendril STS 2088 TC. Implanted 10/10/2014. Interrogation shows no MS episodes and 4 VHR episodes since 02/17/2024. Stored EGM's for VHR episodes show noise on ventricular lead revision of pacing and not to be HR or VT VF episodes. Presenting rhythm shows AP/CORE MACHINE OPERATOR at 70 bpm, AP scan 90%, CORE MACHINE OPERATOR 76%. Estimated battery life 5.5 months. Lead impedances, ventricular sensing and AV pace/sense thresholds remain stable. Unable to check atrial sensing due to intrinsic P wave at 40 bpm, ventricular sensitivities 2.5 mV. R waves greater than 12 mV. RV impedance 380 ohms, RV threshold 1.25/0.5 ms. Echocardiogram: 05/20/2024. LVEF is 55%. Bioprosthetic mitral valve. Mild concentric LVH. PASP is 30 mmHg. I have personally reviewed the Electrocardiogram and Device Check. ASSESSMENT/PLAN: 1. Failure of pacemaker lead, initial encounter - ICD9: 996.01, ICD10: T82.110A (primary diagnosis) - SURGICAL REQUEST - ELECTIVE (12/2019) 2. Bradycardia - ICD9: 427.89, ICD10: R00.1 - ECG B/O W INTERP (MED OFFICE) 3. Vegetative endocarditis of mitral valve - ICD9: 421.0, ICD10: I33.0 - ECG B/O W INTERP (MED OFFICE) 4. Primary hypertension - ICD9: 401.9, ICD10: I10 5. Pacemaker at end of battery life - ICD9: V53.31, ICD10: Z45.010 6. SSS (sick sinus syndrome) ([facility]) - ICD9: 427.81, ICD10: I49.5 7. History of SBE (subacute bacterial endocarditis) - ICD9: V12.59, ICD10: Z86.79 8. S/P MVR (mitral valve replacement) - ICD9: V43.3, ICD10: Z95.2 9. S/P tricuspid valve repair - ICD9: V45.89, ICD10: Z98.890 IMPRESSION: Mr. 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 Patient is being referred for consideration for RV lead revision versus RV lead extraction and replacement and generator exchange. Patient would hold Eliquis and Jardiance for 3 days prior to the procedure. We will perform left-sided venogram on the day of the procedure and plan for addition of RV lead and if not then extraction. Patient will subsequently follow-up with [place] for pacemaker follow-up. We discussed the risks of laser lead extraction including 2% risk of major morbidity including riskof mortality and need for surgical backup given the high risk nature of laser lead extraction. Return if symptoms worsen or fail to improve. Bruna North MD * Josue Lozano MA - 06/10/2024 11:05 AM EST Patient denies cardiac complaints or symptoms. [facility] NoteHNO ID: [id number] Author: JOSUE LOZANO MA Service: ? Author Type: Document Preparation Specialist Type: Progress Notes Filed: 06/10/2024 12:30 Note Text: Patient denies cardiac complaints or symptoms.[facility] 05-25-2024 Telephone encounter Note* Telephone Encounter - Miladys Silva RN - 05/25/2024 11:32 AM EST Brianne called back, he confirmed his date as 1955. I also updated his phone number. Pt states that he has a integrity manager at [facility] that he would like to talk to about an appt. Pt states that he will keep appt with Dr. North for now, but he may cancel. Miladys Silva RN [facility]01-08-2025 Miscellaneous Notes* Telephone Encounter - Miladys Silva RN - 05/25/2024 11:32 AM EST Brianne called back, he confirmed his date as 1955. I also updated his phone number. Pt states that he has a integrity manager at [facility] that he would like to talk to about an appt. Pt states that he will keep appt with Dr. North for now, but he may cancel. Miladys Silva RN documented [facility] [place]25 Telephone encounter Note * Telephone Encounter - Diana Chavarria RN - 05/19/2024 3:49 PM EST YANE KV 02/23/24 NOV KV 02/22/25, Labs 01/07/[address] [facility] [address] [id number] Miscellaneous Notes* Telephone Encounter - Diana Chavarria RN - 05/19/2024 3:49 PM EST YANE KV 02/23/24 NOV KV 02/22/25, Labs 01/07/24 Rx pended. documented in this [facility]12-19-2024 Telephone encounter Note* Telephone Encounter - Alli Miles RN - 05/05/2024 9:05 AM EST YANE KV 02/23/24 NOV KV 02/22/25 Labs 01/07/[address] [id number] Miscellaneous Notes* Telephone Encounter - Alli Miles RN - 05/05/2024 9:05 AM EST YANE KV 02/23/24 NOV KV 02/22/25 Labs 01/07/24 Rx pending documented in this [facility]12-13-2024 History of Present illness Narrative* Mariana Reid MD - 04/29/2024 9:00 AM EST NEUROSURGERY and SPINE FOLLOW-UP NOTE Patient Name: Brianne Walls Patient : 1955 PCP: ARTHUR CARVALHO MD History of Present Illness: 68 y.o. presents with low back pain and lumbar radiculopathy. He continues to have constant low back pain which has been longstanding. He describes the pain as sharp and radiates to the hips bilaterally. He has back spasms. He denies pain radiating down the legs. Denies numbness or weakness in the legs. He has completed 6 weeks of physical therapy. He felt temporary relief while doing the therapy, butthis was only short lasting. His pain is still significant and affecting his quality of life. He had a lumbar CT competed that was ordered by his pain management provider. He had another appointment with pain management in May to consider injections. Chief Complaint Patient presents with Follow-up pt Past Medical History: Past Medical History: Diagnosis Date Anemia Arthritis Bone infection ([facility]) spine CAD (coronary artery disease) Chronic back pain Chronic kidney disease 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) 04/30/2023 COPD (chronic obstructive pulmonary disease) ([facility]) Depression DVT (deep venous thrombosis) ([facility]) Endocarditis Head injury History of blood transfusion Hyperlipidemia Hypertension 01/13/2011 Hyperthyroidism Pacemaker Paroxysmal A-fib (CMS/HCC) ([facility]) Pneumonia Sleep apnea Past Surgical History: Past Surgical History: Procedure Laterality Date CARDIAC CATHETERIZATION N/A 05/25/2023 Performed by Lance Hobbs MD at [facility] Cardiac Cath/EP Lab CARDIAC VALVE REPLACEMENT 2010 MVR/[facility]F HARDWARE REMOVAL Right 05/02/2016 SCREW IN RIGHT 4TH TOE INSERT / REPLACE / REMOVE PACEMAKER 10/10/2014 MITRAL VALVE REPLACEMENT 07/27/2014 bioprosthetic valve TRICUSPID VALVE SURGERY 07/27/2014 Repair Home Medications: Prior to Admission medications Medication Sig Start Date End Date Taking? Authorizing Provider apixaban (Eliquis) 5 MG tablet Take 1 tablet (5 mg) by mouth 2 times daily. 02/23/24 Yes Lance Hobbs MD atorvastatin (Lipitor) 20 MG tablet Take 20 mg by mouth in the morning. Yes Historical Provider, buPROPion SR (Wellbutrin SR) 150 MG 12 hr tablet Take 150 mg by mouth 2 times daily. 02/26/23 Yes Historical Provider, citalopram (CeleXA) 20 MG tablet Take 20 mg by mouth daily. 08/17/23 Yes Historical Provider, doxepin (SINEquan) 150 MG capsule Take 150 mg by mouth Nightly. Yes Historical Provider, empagliflozin (Jardiance) 10 MG Take 1 tablet (10 mg) by mouth daily. 05/25/23 05/24/24 Yes Lance Hobbs MD furosemide (Lasix) 40 MG tablet TAKE 1 TABLET EVERY DAY NEEDED FOR WT GAIN OVER 3# IN A DAY OR 5# IN A WEEK, SHORTNESS OF BREATH OR SWELLING Patient taking differently: PRN 02/05/24 Yes KIARA Bain CNP HYDROcodone-acetaminophen (Lemoore) 5-325 MG tablet TAKE 1 TABLET BY MOUTH FOUR TIMES DAILY FOR 28 DAYS 04/07/23 Yes Historical Provider, MD MERRILL-CON M20 20 MEQ ER tablet TAKE 1 TABLET (20 MEQ) BY MOUTH EVERY OTHER DAY. DO NOT CRUSH OR CHEW. TAKE 40 MEQ ON DAY 1 AND THEN 20 MEQ EVERY OTHER DAY THERAFTER 10/21/23 Yes KIARA Talbot CNP levothyroxine (Synthroid, Levoxyl) 100 MCG tablet Take 100 mcg by mouth every morning (before breakfast). Yes Historical Provider, metoprolol succinate XL (Toprol-XL) 50 MG 24 hr tablet Take 50 mg by mouth daily. 01/13/23 Yes Historical Provider, spironolactone (Aldactone) 25 MG tablet TAKE 1 TABLET BY MOUTH EVERY DAY 02/29/24 Yes Lance Hobbs MD tamsulosin (Flomax) 0.4 MG 24 hr capsule Take 0.4 mg by mouth in the morning and 0.4 mg in the evening. Yes Historical Provider, tiZANidine (Zanaflex) 4 MG tablet TAKE 1 TABLET ORAL TWICE A DAY FOR 30 DAYS 06/03/22 Yes HistoricalProviderMD traZODone (Desyrel) 100 MG tablet Take 200 mg by mouth Nightly. 01/11/23 Yes Historical Provider, albuterol 108 (90 Base) MCG/ACT inhaler TAKE 2 PUFFS INHALED 6 TIMES PER DAY FOR 30 DAYS NEEDED WHEEZING/SHORTNESS OF BREATH. Patient not taking: Reported on 04/29/2024 03/10/23 Historical Provider, Allergies: Patient has no known allergies. Social History: TOBACCO: reports that he quit smoking about 1 years ago. His smoking use included cigarettes. He started smoking about 49 years ago. He has a 23.5 pack- year smoking history. He has never been exposedto tobacco smoke. He quit smokeless tobacco use about 9 years ago. ETOH: reports that he does not currently use alcohol. RECREATIONAL DRUG USE: Social History Substance and Sexual Activity Drug Use Not Currently Types: Heroin, Crack cocaine Comment: Former user/ caffeine- 1 cup of coffee daily Family History: Family History Problem Relation Name Age of Onset Atrial fibrillation Mother Other ([id number]) Mother pacemaker Heart disease Father Review of Systems: Review of Systems 12-point ROS negative unless otherwise documented Physical Examination: Vitals: 04/29/24 0912 BP: 100/63 Pulse: 71 Physical Exam Awake and alert BUE 5/5 BLE 5/5 SILT DTR 2+ Gait normal Results Labs: Last 24hrs No results found for this or any previous visit (from the past 24 hours). Radiology Personal review: We reviewed his CT OSH imaging. No formal radiologist report for review. In my interpretation, imaging shows multilevel degenerative changes throughout the spine. Most pronounced at L1-L3 with evidence of moderate canal stenosis at L2- L3. As I discussed with Ange, CT imaging shows the arthritic bony changes well, but makes it difficult to clearly identify the neuro elements and overall degree of canal or foraminal stenosis. ASSESSMENT / PLAN : Ange continues to experience progressive, non-radiating lower-back pain. Despite his long-standing discomfort, he has no alarming symptoms and remains full strength and sensation. He has completed a 6 week session of PT with only mild improvements. His care is somewhat complicated by his cardiac pacer which he reports is likely not MR compatible. At this point, given his persistent symptoms we'll plan the following: -Ange will reach out to his cardiology team to request MR compatibility, otherwise we'll need to discuss possibly obtaining a CT myelogram if symptoms progress. -He has an appointment with Pain management in May, if symptoms persist he may be a candidate for injections. -Continued PT considering his mild improvement and desire to continue therapy. As discussed, he'll plan to follow up with our team in 6 weeks at which point we'll evaluate his progress and possibly obtain new, updated imaging. Mariana Reid MD [facility] Neurosurgery Diagnosis Plan 1. Chronic bilateral low back pain without sciatica External referral to Physical Therapy I have spent 25 minutes reviewing previous notes, test results, and face to face with the patient discussing the diagnosis and importance of compliance with the treatment plan, as well as documentingon the day of the visit. documented in this [facility]10-25-[facility] History of Present illness Narrative* Mariana Reid MD - 03/11/2024 11:30 AM EDT NEUROSURGERY and SPINE FOLLOW-UP NOTE Patient Name: Brianne Walls Patient : 1955 PCP: ARTHUR CARVALHO MD History of Present Illness: Ange returns to clinic for further evaluation following his recent CT brain and further discussion regarding his long-standing back pain and lumbar radiculopathy. CT brain obtained on 03/08 shows near complete resolution in his known SDH. He denies headaches, nausea or changes in strength, sensation or vision. He has completed a session of physical therapy and reports mild improvement in his symptoms, which included moderate lower back pain and BLE radicular symptoms. Past Medical History: Past Medical History: Diagnosis Date Anemia Arthritis Bone infection ([facility]) spine CAD (coronary artery disease) Chronic back pain Chronic kidney disease 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) 04/30/2023 COPD (chronic obstructive pulmonary disease) ([facility]) Depression DVT (deep venous thrombosis) ([facility]) Endocarditis Head injury History of blood transfusion Hyperlipidemia Hypertension 01/13/2011 Hyperthyroidism Pacemaker Paroxysmal A-fib (CMS/HCC) ([facility]) Pneumonia Sleep apnea Past Surgical History: Past Surgical History: Procedure Laterality Date CARDIAC CATHETERIZATION N/A 05/25/2023 Performed by Lance Hobbs MD at [facility] Cardiac Cath/EP Lab CARDIAC VALVE REPLACEMENT [...] WHEEZING/SHORTNESS OF BREATH. 03/10/23 Yes Historical Provider, apixaban (Eliquis) 5 MG tablet Take 1 tablet (5 mg) by mouth 2 times daily. 02/23/24 Yes Lance Hobbs MD atorvastatin (Lipitor) 20 MG tablet Take 20 mg by mouth in the morning. Yes Historical Provider, buPROPion SR (Wellbutrin SR) 150 MG 12 hr tablet Take 150 mg by mouth 2 times daily. 02/26/23 Yes Historical Provider, citalopram (CeleXA) 20 MG tablet Take 20 mg by mouth daily. 08/17/23 Yes Historical Provider, doxepin (SINEquan) 150 MG capsule Take 150 mg by mouth Nightly. Yes Historical Provider, empagliflozin (Jardiance) 10 MG Take 1 tablet (10 mg) by mouth daily. 05/25/23 05/24/24 Yes Lance Hobbs MD furosemide (Lasix) 40 MG tablet TAKE 1 TABLET EVERY DAY NEEDED FOR WT GAIN OVER 3# IN A DAY OR 5# IN A WEEK, SHORTNESS OF BREATH OR SWELLING 02/05/24 Yes KIARA Bain CNP HYDROcodone-acetaminophen (Lemoore) 5-325 MG tablet TAKE 1 TABLET BY MOUTH FOUR TIMES DAILY FOR 28 DAYS 04/07/23 Yes Historical Provider, MD PURCELL M20 20 MEQ ER tablet TAKE 1 TABLET (20 MEQ) BY MOUTH EVERY OTHER DAY. DO NOT CRUSH OR CHEW. TAKE 40 MEQ ON DAY 1 AND THEN 20 MEQ EVERY OTHER DAY THERAFTER 10/21/23 Yes KIARA Talbot CNP levothyroxine (Synthroid, Levoxyl) 100 MCG tablet Take 100 mcg by mouth every morning (before breakfast). Yes Historical Provider, metoprolol succinate XL (Toprol-XL) 50 MG 24 hr tablet Take 50 mg by mouth daily. 01/13/23 Yes Historical Provider, spironolactone (Aldactone) 25 MG tablet TAKE 1 TABLET BY MOUTH EVERY DAY 02/29/24 Yes Lance Hobbs MD tamsulosin (Flomax) 0.4 MG 24 hr capsule Take 0.4 mg by mouth in the morning and 0.4 mg in the evening. Yes Historical Provider, tiZANidine (Zanaflex) 4 MG tablet TAKE 1 TABLET ORAL TWICE A DAY FOR 30 DAYS 06/03/22 Yes HistoricalMD Katie traZODone (Desyrel) 100 MG tablet Take 200 mg by mouth Nightly. 01/11/23 Yes Historical Provider, Allergies: Patient has no known allergies. Social History: TOBACCO: reports that he quit smoking about 21 months ago. His smoking use included cigarettes. He started smoking about 48 years ago. He has a 23.5 pack- year smoking history. He has never been exposed [...] Age of Onset Atrial fibrillation Mother Other ([id number]) Mother pacemaker Heart disease Father Review of Systems: Review of Systems 12-point ROS completed and negative unless otherwise documented. Physical Examination: Vitals: 03/11/24 1136 BP: 109/64 Pulse: 76 Physical Exam Awake, alert, oriented x3 PERRL, TM, FS Speech fluent/appropriate BUE 5/5, no drift BLE 5/5 SILT Results Labs: Last 24hrs No results found for this or any previous visit (from the past 24 hours). Radiology Personal review: CT brain reviewed and discussed with patient/family in detail. In my interpretation, imaging shows evidence of MMAE and near complete resolution of known SDH. ASSESSMENT / PLAN : Overall, Ange has progressed well regarding his SDH. No new neurological complaint and imaging shows near complete resolution in the subdural collection. No further cranial imaging necessary. However, he continues to report moderate, long-standing back pain with BLE radicular symptoms, which have improved marginally with therapy. We discussed his progress and plan to continue with conservative therapies for now. We'll plan to follow up with Ange in 6 weeks to assess is lumbar issues further. Possibly obtaininga CT L-spine given his inability to have MR given his pacer. Mariana Reid MD [facility] Neurosurgery Diagnosis Plan 1. Lumbar radiculopathy External referral to Physical Therapy I have spent 30 minutes reviewing previous notes, test results, and face to face with the patient discussing the diagnosis and importance of compliance with the treatment plan, as well as documentingon the day of the visit. documented in this [facility]10-18-2024 Telephone encounter Note* Telephone Encounter - Day Barclay - 03/04/2024 12:43 PM EDT Spoke with patient, rescheduled to next Thursday, 03/11 at 11:30am with Dr. Reid. [place] [id number] Miscellaneous Notes* Telephone Encounter - Day Barclay - 03/04/2024 12:43 PM EDT Spoke with patient, rescheduled to next Thursday, 03/11 at 11:30am with Dr. Reid. * Telephone Encounter - Manish Aguirre - 03/04/2024 12:14 PM EDT Name of Caller: Ange Walls Contact Reason for Appointment: 6 week fu Prefers AM Office Name: [facility] Neurosurgery Medication Refills need, if any: n/a Medication Name: n/a documented in this [facility]10-18-2024 Telephone encounter Note* Telephone Encounter - Manish Aguirre - 03/04/2024 12:14 PM EDT Name of Caller: Ange Walls Contact Reason for Appointment: 6 week fu Prefers AM Office Name: [facility]surgery Medication Refills need, if any: n/a Medication Name: n/a [id number] Telephone encounter Note* Telephone Encounter - Cyn Prince Kendrick - 03/03/2024 3:39 PM EDT Name of Caller: Brianne Contact Reason for Appointment: Brianne called in to reschedule his appt with Dr. Reid. Brianne was a little concerned because he had not heard back yet. Please reach out to Brianne to schedule. Office Name: Neurosurgery Medication Refills need, if any: n/a Medication Name: n/a [facility] [id number] Miscellaneous Notes* Telephone Encounter - Cyn Prince Kendrick - 03/03/2024 3:39 PM EDT Name of Caller: Brianne Contact Reason for Appointment: Brianne called in to reschedule his appt with Dr. Reid. Brianne was a little concerned because he had not heard back yet. Please reach out to Brianne to schedule. Office Name: Neurosurgery Medication Refills need, if any: n/a Medication Name: n/a * Telephone Encounter - Cinthya Williamson - 02/29/2024 9:23 AM EDT Name of Caller: Brianne Contact Reason for Appointment: Reschedule 03/04/24 follow up for an AM appointment next Thursday03/11/24, if available Office Name: General Neurology & Rehab Medicine documented in this encounterSPro[facility] [id number] Telephone encounter Note* Telephone Encounter - Karthik Echevarria RN - 02/29/2024 1:15 PM EDT YANE 02/22. Labs 01/06. NOV Yearly. Rx pended for review. [facility] [id number] Miscellaneous Notes* Telephone Encounter - Karthik Echevarria RN - 02/29/2024 1:15 PM EDT YANE 02/22. Labs 01/06. MAR Yearly. Rx pended for review. documented in this encounterSProMedica Memorial [id number] Telephone encounter Note* Telephone Encounter - Cinthya Williamson - 02/29/2024 9:23 AM EDT Name of Caller: Brianne Contact Reason for Appointment: Reschedule 03/04/24 follow up for an AM appointment next Thursday03/11/24, if available Office Name: General Neurology & Rehab Medicine [facility] [id number] Telephone encounter Note* Telephone Encounter - Day Barclay - 02/26/2024 9:37 AM EDT LVM leaving our office's phone number so the patient can reschedule. [facility] [id number] Miscellaneous Notes* Telephone Encounter - Day Barclay - 02/26/2024 9:37 AM EDT LVM leaving our office's phone number so the patient can reschedule. * Telephone Encounter - Cinthya Williamson - 02/26/2024 9:01 AM EDT Name of Caller: Ange Contact Reason for Appointment: Reschedule 03/04/24 Office Name: General Neurology & Rehab Medicine documented in this encounterSProMedica Memorial HospitalKarlma05-93-1158 Telephone encounter Note* Telephone Encounter - Cinthya Teri - 02/26/2024 9:01 AM EDT Name of Caller: Ange Contact Reason for Appointment: Reschedule 03/04/24 Office Name: General Neurology & Rehab Medicine [facility] [id number] History of Present illness Narrative* Lance Hobbs MD - 02/23/2024 2:45 PM EDT CARDIOLOGY HEART FAILURE PROGRESS NOTE Today's Date: [...] PPM, who presents to the cardiology clinic forfollow up. I have had a chance to review some older records including an echocardiogram from January 2011 [facility] which showed LVEF 49%, and a well- functioning bioprosthetic MV with a mean gradientof 4 mmHg. He has been following with the group in [place]. He underwent a TTE in February 2023 [...] History: Diagnosis Date Anemia Arthritis Bone infection ([facility]) spine CAD (coronary artery disease) Chronic back pain Chronic kidney disease 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) 04/30/2023 COPD (chronic obstructive pulmonary disease) ([facility]) Depression DVT (deep venous thrombosis) ([facility]) Endocarditis Head injury History of blood transfusion Hyperlipidemia Hypertension 01/13/2011 Hyperthyroidism Pacemaker Paroxysmal A-fib (CMS/HCC) ([facility]) Pneumonia Sleep apnea Past Surgical History Past Surgical History: Procedure Laterality Date CARDIAC CATHETERIZATION N/A 05/25/2023 Performed by Lance Hobbs MD at [facility] Cardiac Cath/EP Lab CARDIAC VALVE REPLACEMENT 2010 M[facility] HARDWARE REMOVAL Right 05/02/2016 SCREW IN RIGHT 4TH TOE INSERT / REPLACE / REMOVE PACEMAKER 10/10/2014 MITRAL VALVE REPLACEMENT 07/27/2014 bioprosthetic valve TRICUSPID VALVE SURGERY 07/27/2014 Repair Family History Family History Problem Relation Name Age of Onset Atrial fibrillation Mother Other ([id number]) Mother pacemaker Heart disease Father Social History [...] BREATH OR SWELLING 90 tablet 0 HYDROcodone-acetaminophen ([place]) 5-325 MG tablet TAKE 1 TABLET BY [...] is alert. CBC: No results for input(s): WBC, HGB, HCT, PLT in the last 72 hours. BMP:No results for input(s): NA, K, CL, CO2, BUN, CREATININE, GLU, LABGLOM in the last 72 hours. No [...] 09/03/2023 Lipid Profile: No results found for: TRIG, HDL, LDLCALC, CHOL Hemoglobin A1C: No results found for: HGBA1C GRISELDA: No results found for: GRISELDA Ferritin: No results found for: FERRITIN HIV: No results found for: [id number] EKG: See Report Echo: See Report EF: No components found for: LVEF, LVEFMODE IMPRESSIONS: Diagnosis Plan 1. Vegetative endocarditis of mitral valve 2. Chronic diastolic heart failure (HCC) 3. Pulmonary hypertension (HCC) 4. 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) 5. Other hyperlipidemia SDH. He is on warfarin for atrial fibrillation. Will switch to apixaban 5 mg BID to reduce the riskof future ICH. Pulmonary hypertension/paravalvular leak now status post block: Repeat transthoracic echocardiogramshowed improvement of the mitral regurgitation, but persistent pulmonary hypertension that is likely precapillary in nature, but could be secondary to longstanding group 2 pulmonary hypertension. Hiscurrent medications include furosemide 40 mg PRN. spironolactone 25 mg/day, and empagliflozin 10 mg/day. Today we will make his furosemide PRN for water retention. Will repeat echo in a year. Bioprosthetic mitral valve replacement: With a #29 Med[employer] tissue valve in 2014 at [facility]. He is functioning well and his paravalvular leak plugging was successful. Paroxysmal atrial fibrillation: He is on warfarin and metoprolol 50 mg/day. Going to switch to apixaban 5 mg BID. This should be safer. I, Lance Hobbs MD, PhD, furnished ongoing care related to Brianne Walls for their congestiveheart failure, a serious and complex condition. I assume responsibility for the patient's ongoing medical care for this condition. Lance Hobbs MD, PhD Advanced Heart Failure Cardiology [facility]. Heart and Vascular [place] 3:13 PM 02/23/24 documented in this [facility]10-08-2024 Instructions* Patient Instructions* Lance Hobbs MD - 02/23/2024 2:45 PM EDT Durb, good to see you again. I'm glad your head is better. Stop the warfarin. On Thursday, start apixaban 5mg twice per day. Return in a year, but earlier if need be. documented in this [facility]10-08-2024 History of Present illness Narrative* Delbert Stover MD - 02/23/2024 1:30 PM EDT Endovascular neurointerventional surgery note Reason for follow-up: [...] (HCC) 04/30/2023 COPD (chronic obstructive pulmonary disease) ([facility]) Depression DVT (deep venous thrombosis) ([facility]) Endocarditis Head injury History of blood transfusion Hyperlipidemia Hypertension 01/13/2011 Hyperthyroidism Pacemaker Paroxysmal A-fib (CMS/HCC) ([facility]) Pneumonia Sleep apnea Past Surgical History: Procedure Laterality Date CARDIAC CATHETERIZATION N/A 05/25/2023 Performed by Lance Hobbs MD at [facility] Cardiac Cath/EP Lab CARDIAC VALVE REPLACEMENT 2010 [facility] HARDWARE REMOVAL Right 05/02/2016 SCREW IN RIGHT 4TH TOE INSERT / REPLACE / REMOVE PACEMAKER 10/10/2014 MITRAL VALVE REPLACEMENT 07/27/2014 bioprosthetic valve TRICUSPID VALVE SURGERY 07/27/2014 Repair Current Outpatient Medications: albuterol 108 (90 Base) MCG/ACT inhaler, TAKE 2 PUFFS INHALED 6 TIMES PER DAY FOR 30 DAYS NEEDEDWHEEZING/SHORTNESS OF BREATH., Disp: , Rfl: atorvastatin (Lipitor) [...] SWELLING, Disp: 90 tablet, Rfl: 0 HYDROcodone-acetaminophen ([place]) 5-325 MG tablet, TAKE 1 TABLET BY [...] increase the risk for interval extracranial bleeding withoutany added significant benefits. Follow-up in 3 months. documented in this [facility]10-08-2024 History of Present illness Narrative* Delbert Stover MD - 02/23/2024 1:30 PM EDT Endovascular neurointerventional surgery note Reason for follow-up: [...] disease) (HCC) Depression DVT (deep venous thrombosis) ([facility]) Endocarditis Head injury History of blood transfusion Hyperlipidemia Hypertension 01/13/2011 Hyperthyroidism Pacemaker Paroxysmal A-fib (CMS/HCC) (HCC) Pneumonia Sleep apnea Past Surgical History: Procedure Laterality Date CARDIAC CATHETERIZATION N/A 05/25/2023 Performed by Lance Hobbs MD at [facility] Cardiac Cath/EP Lab CARDIAC VALVE REPLACEMENT 2010 M[facility] HARDWARE REMOVAL Right 05/02/2016 SCREW IN RIGHT 4TH TOE INSERT / REPLACE / REMOVE PACEMAKER 10/10/2014 MITRAL VALVE REPLACEMENT 07/27/2014 bioprosthetic valve TRICUSPID VALVE SURGERY 07/27/2014 Repair Current Outpatient Medications: albuterol 108 (90 Base) MCG/ACT inhaler, TAKE 2 PUFFS INHALED 6 TIMES PER DAY FOR 30 DAYS NEEDEDWHEEZING/SHORTNESS OF BREATH., Disp: , Rfl: atorvastatin (Lipitor) [...] SWELLING, Disp: 90 tablet, Rfl: 0 HYDROcodone-acetaminophen ([place]) 5-325 MG tablet, TAKE 1 TABLET BY [...] increase the risk for interval extracranial bleeding withoutany added significant benefits. Follow-up in 3 months. documented in this [facility]09-20-2024 Telephone encounter Note* Telephone Encounter - Diana Chavarria RN - 02/05/2024 1:34 PM EDT YANE 11/08, MAR 27. Labs 01/08. Rx pended. [facility] [id number] Miscellaneous Notes* Telephone Encounter - Diana Chavarria RN - 02/05/2024 1:34 PM EDT YANE 11/08, MAR 27. Labs 01/08. Rx pended. documented in this [facility]09-06-2024 History of Present illness Narrative* Mariana Reid MD - 01/22/2024 11:15 AM EDT NEUROSURGERY and SPINE FOLLOW-UP NOTE Patient Name: [...] have a SDH and was transferred to [facility] for neurosurgical evaluation. He was taking [...] History: Diagnosis Date Anemia Arthritis Bone infection ([facility]) spine CAD (coronary artery disease) Chronic back pain Chronic kidney disease 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) 04/30/2023 COPD (chronic obstructive pulmonary disease) ([facility]) Depression DVT (deep venous thrombosis) ([facility]) Endocarditis History of blood transfusion Hyperlipidemia Hypertension 01/13/2011 Hyperthyroidism Pacemaker Paroxysmal A-fib (CMS/HCC) ([facility]) Pneumonia Past Surgical History: Past Surgical History: Procedure Laterality Date CARDIAC CATHETERIZATION N/A 05/25/2023 Performed by Lance Hobbs MD at 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 11/20/23 Lance Hobbs MD HYDROcodone-acetaminophen ([place]) 5-325 MG tablet TAKE 1 TABLET BY [...] Age of Onset Atrial fibrillation Mother Other ([id number]) Mother pacemaker Heart disease Father Review of [...] and . In my interpretation, imaging shows intervaldecrease in the size/diameter of his known SDH. [...] continue to experience progression in his symptoms. Mariana Reid MD [facility] Neurosurgery I have spent 40 minutes reviewing previous notes, test results, and face to face with the patient discussing the diagnosis and importance of compliance with the treatment plan, as well as documentingon the day of the visit. documented in this [facility]08-22-2024 Nurse Note* Lara Tovar RN - 01/07/2024 1:07 PM EDT Pt given discharge instruction and verbalized understand. Pt discharged home with and all his belongings. [facility] [id number] Nurse Note* Lara Tovar RN - 01/07/2024 1:07 PM EDT Pt given discharge instruction and verbalized understand. Pt discharged home with and all his belongings. * Kathy Moon RN - 01/04/2024 8:11 AM EDT Wound Care consulted for Pressure Injury Prevention. Pt's Guevara= 20, pt is no longer at risk. Skin Care Precaution order set in place. Will continue to follow peripherally. Please voicera or secure chat message with any questions. Betsy Moon RN, [facility] documented in this [facility]08-22-2024 Hospital Discharge instructions* Discharge Instructions* Denzel Bernstein DO - 01/07/2024 11:58 AM EDT Hold coumadin until follow up appointment with neurosurgeon. * Discharge Instr - SHANELL* Lara Tovar RN - 01/07/2024 11:24 AM EDT * Additional Instructions* Denzel Bernstein DO - 01/07/2024 11:25 AM EDT Follow up with Neurosurgery in 2 weeks * Attachments The following attachments cannot be sent through Care Everywhere. * [facility] BRAIN ANGIOGRAM * Closed Head Injury (Maldivian) * Closed Head Injury Discharge Instructions (Maldivian) documented in this [facility]08-22-2024 History of Present illness Narrative* Edelmira Willis - 01/07/2024 11:15 AM EDT Images from the original note were not included. PHYSICAL THERAPY [facility] Re-Evaluation Name/MRN: Ange Walls ([id number]) Evaluation Date: 01/07/2024 Date of : 1955 Admission Date: 01/01/2024 5:23 PM Age: 68 y.o. Room/Bed: T2/ A Discharge Recommendation: Home with assist PRN [...] (HCC) 04/30/2023 COPD (chronic obstructive pulmonary disease) ([facility]) Depression DVT (deep venous thrombosis) ([facility]) Endocarditis History of blood transfusion Hyperlipidemia Hypertension 01/13/2011 Hyperthyroidism Pacemaker Paroxysmal A-fib (CMS/HCC) (HCC) Pneumonia Past Surgical History: Past Surgical History: Procedure Laterality Date CARDIAC CATHETERIZATION N/A 05/25/2023 Performed by Lance Hobbs MD at [facility] Cardiac Cath/EP Lab CARDIAC VALVE REPLACEMENT 2010 [facility] HARDWARE REMOVAL Right 05/02/2016 SCREW IN RIGHT 4TH TOE INSERT / REPLACE / REMOVE PACEMAKER 10/10/2014 MITRAL VALVE REPLACEMENT 07/27/2014 bioprosthetic valve TRICUSPID VALVE SURGERY 07/27/2014 Repair Admission Diagnosis: Patient Active Problem List Diagnosis Date Noted Brain compression ([facility]) ([facility]) 01/04/2024 Fall 01/04/2024 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 01/04/2024 SDH (subdural hematoma) ([facility]) 01/01/2024 Severe mitral regurgitation 07/29/2023 Chronic diastolic heart failure ([facility]) 07/16/2023 Pulmonary hypertension ([facility]) 07/16/2023 CKD (chronic kidney disease) stage 2, GFR 60-89 ml/min 07/16/2023 S/P mitral valve replacement 06/12/2023 Mitral valve insufficiency 06/12/2023 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 ([facility]) ([facility]) 04/30/2023 Depressive disorder 04/30/2023 Bacterial endocarditis 04/30/2023 Anxiety disorder 04/30/2023 Back problem 04/30/2023 Vitamin D deficiency 02/25/2023 Syncope 02/13/2023 Anticoagulated on Coumadin 01/28/2023 Solitary pulmonary nodule 10/27/2022 Pleurisy 10/07/2022 Anemia 09/08/2022 Hypothyroidism 04/07/2016 Hyperlipidemia 01/25/2015 Presence of cardiac pacemaker 10/19/2014 History of drug abuse ([facility]) ([facility]) 04/02/2011 Heart valve replaced by other means 04/02/2011 DVT (deep venous thrombosis) ([facility]) 01/23/2011 Acute blood loss anemia 01/18/2011 Peripheral vascular disease ([facility]) 01/13/2011 Chronic pain 01/13/2011 Bradycardia 01/13/2011 Vegetative endocarditis of mitral valve 01/08/2011 Osteomyelitis ([facility]) 01/08/2011 Prosthetic cardiac paravalvular leak, initial encounter 06/10/2023 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 ([facility]) 04/30/2023 Alcohol use disorder, severe, dependence ([facility]) 11/23/2017 Medical Precautions: No active isolations Proper [...] Responsibilities: Independent Receives Help From: Family 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 [...] of Care supervision is transferred to a [facility] Therapy Services Physical Therapist. Goals and/or treatment plan was established in collaboration with patient/family/other representatives. * Melba Jackson - 01/07/2024 10:24 AM EDT Images from the original note were not included. OCCUPATIONAL THERAPY [facility] Re-Evaluation Name/MRN: Ange Walls ([id number]) Evaluation Date: 01/07/2024 Date of : 1955 Admission Date: 01/01/2024 5:23 PM Age: 68 y.o. Room/Bed: T2-211/T2-211 A Discharge Recommendation: Home with assist PRN [...] 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 ([facility]) 04/30/2023 COPD (chronic obstructive pulmonary disease) ([facility]) Depression DVT (deep venous thrombosis) ([facility]) Endocarditis History of blood transfusion Hyperlipidemia Hypertension 01/13/2011 Hyperthyroidism Pacemaker Paroxysmal A-fib ([facility]) ([facility]) Pneumonia Past Surgical History: Past Surgical History: Procedure Laterality Date CARDIAC CATHETERIZATION N/A 05/25/2023 Performed by Lance Hobbs MD at [facility] Cardiac Cath/EP Lab CARDIAC VALVE REPLACEMENT 2010 MVR/[facility] HARDWARE REMOVAL Right 05/02/2016 SCREW IN RIGHT 4TH TOE INSERT / REPLACE / REMOVE PACEMAKER 10/10/2014 MITRAL VALVE REPLACEMENT 07/27/2014 bioprosthetic valve TRICUSPID VALVE SURGERY 07/27/2014 Repair Admission Diagnosis: Patient Active Problem List Diagnosis Date Noted Brain compression ([facility]) ([facility]) 01/04/2024 Fall 01/04/2024 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 01/04/2024 SDH (subdural hematoma) ([facility]) 01/01/2024 Severe mitral regurgitation 07/29/2023 Chronic diastolic heart failure ([facility]) 07/16/2023 Pulmonary hypertension ([facility]) 07/16/2023 CKD (chronic kidney disease) stage 2, GFR 60-89 ml/min 07/16/2023 S/P mitral valve replacement 06/12/2023 Mitral valve insufficiency 06/12/2023 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 ([facility]) ([facility]) 04/30/2023 Depressive disorder 04/30/2023 Bacterial endocarditis 04/30/2023 Anxiety disorder 04/30/2023 Back problem 04/30/2023 Vitamin D deficiency 02/25/2023 Syncope 02/13/2023 Anticoagulated on Coumadin 01/28/2023 Solitary pulmonary nodule 10/27/2022 Pleurisy 10/07/2022 Anemia 09/08/2022 Hypothyroidism 04/07/2016 Hyperlipidemia 01/25/2015 Presence of cardiac pacemaker 10/19/2014 History of drug abuse ([facility]) ([facility]) 04/02/2011 Heart valve replaced by other means 04/02/2011 DVT (deep venous thrombosis) ([facility]) 01/23/2011 Acute blood loss anemia 01/18/2011 Peripheral vascular disease ([facility]) 01/13/2011 Chronic pain 01/13/2011 Bradycardia 01/13/2011 Vegetative endocarditis of mitral valve 01/08/2011 Osteomyelitis (HCC) 01/08/2011 Prosthetic cardiac paravalvular leak, initial encounter 06/10/2023 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 ([facility]) 04/30/2023 Alcohol use disorder, severe, dependence ([facility]) 11/23/2017 Medical Precautions: No active isolations Proper [...] Responsibilities: Independent Receives Help From: Family Active Power 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 Goals and/or treatment plan was established in collaboration with patient/family/other representatives. * Nancy Gonzalez, CONTINUOUS LINTER DRIER OPERATOR - FEATHERER - 01/07/2024 9:45 AM EDT Endovascular Neurology Note Patient Name:Brianne Walls Patient : 1955 Acct: [id number] Date of Admission: 01/01/2024 Room/Bed: T2-211/T2-211 A PCP: ARTHUR CARVALHO MD HPI: Ange Walls is a 68 y.o. male presenting with headaches. Pt had 2 falls in past few weeks. Reports that he hit his head with the second fall and subsequently developed a headache[facility] for which CT was ordered. Imaging identified R SDH and pt was transferred to [facility] for further care. New Complaint: VSS [...] 4 times per day, Chrissy Almeida DO, 1,000mg at 01/07/24 0507 albuterol 108 (90 Base) [...] 10 mg, Oral, Daily, Chiquis Payne APRN [facility], 10 mg at 01/07/24 0839 dextrose 5 % infusion, 100 mL/hr, IntraVENous, PRN, Nam Dougherty MD dextrose 50 % solution 12.5 g, 12.5 g, IntraVENous, PRN, Nam Dougherty MD docusate sodium (Colace) capsule 100 mg, 100 mg, Oral, BID, Chiquis Payne APRN [facility], 100 mg at 01/06/242015 doxepin (SINEquan) capsule 150 mg, 150 mg, Oral, Nightly, Nam Dougherty MD, 150 mg at 01/06/24 2333 [Held by provider] furosemide (Lasix) tablet 40 mg, 40 mg, Oral, Daily PRN, Nma Dougherty MD glucagon (human recombinant) injection 1 [...] 50 mg, Oral, Daily, Nam Dougherty MD, 50mg at 01/07/24 0839 naloxone (Narcan) injection 0.4 mg, 0.4 mg, IntraVENous, q5 min PRN, Myah Hennessy MD ondansetron ODT (Zofran-ODT) disintegrating tablet [...] the head with 3 mm reconstruction. Sagittal andCoronal reconstruction images included. Dose reduction was employed [...] at 1:[address] Stover * Bryon Joy PA-C - 01/07/2024 9:06 AM EDT NEUROSURGERY and SPINE FOLLOW-UP NOTE Patient Name: [...] (HCC) 04/30/2023 COPD (chronic obstructive pulmonary disease) ([facility]) Depression DVT (deep venous thrombosis) ([facility]) Endocarditis History of blood transfusion Hyperlipidemia Hypertension 01/13/2011 Hyperthyroidism Pacemaker Paroxysmal A-fib (CMS/HCC) ([facility]) Pneumonia Past Surgical History: Past Surgical History: Procedure Laterality Date CARDIAC CATHETERIZATION N/A 05/25/2023 Performed by Lance Hobbs MD at 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 11/20/23 Lance Hobbs MD HYDROcodone-acetaminophen ([place]) 5-325 MG tablet TAKE 1 TABLET BY [...] started smoking about 48 years ago. He hasa 24.3 pack-year smoking history. He has never [...] Age of Onset Atrial fibrillation Mother Other ([address]) Mother pacemaker Heart disease Father Review of [...] with pt/family and other providers regarding SDH. * Jasmine Willis - 01/07/2024 8:37 AM EDT Nutrition update completed. Chart reviewed. Patient to be monitored and followed by the diet field radio technician. Jasmine Willis DT * Katelyn Silva PTA - 01/06/2024 2:16 PM EDT Images from the original note were not included. PHYSICAL THERAPY [facility] Name/MRN: Ange Walls ([id number]) Date: 01/06/2024 Transfer 3W>T2 s/p angio and currently bedrest. Monitor for continued PT. Katelyn Silva PTA * MANDY Maldonado - 01/06/2024 2:08 PM EDT OCCUPATIONAL THERAPY Attempted OT services; pt transferred from 3W to T2 s/p angiogram procedure earlier this morning. OTR notified of re evaluation need. Will continue OT sessions upon updated POC/re evaluation. * Nancy Gonzalez APRN - FEATHERER - 01/06/2024 12:33 PM EDT Endovascular Neurology Note Patient Name:Brianne Walls Patient : 1955 Acct: [id number] Date of Admission: 01/01/2024 Room/Bed: [facility] PCP: ARTHUR CARVALHO MD HPI: Ange Walls is a 68 y.o. male presenting with headaches. Pt had 2 falls in past few weeks. Reports that he hit his head with the second fall and subsequently developed a headache. [facility] and mentioned headache for which CT was ordered. Imaging identified R SDH and pt was transferred to [facility] for further care. New Complaint: VSS [...] 4 times per day, Chrissy Almeida DO, 1,000mg at 01/06/24 0818 albuterol 108 (90 Base) [...] Daily, KIARA Arevalo CNP, 10 mg at 01/06/24 0820 dextrose 5 [...] 0.5 mg, IntraVENous, q4h PRN, KIARA Arevalo CNP,0.5 mg at 01/06/24 0817 levothyroxine (Synthroid, Levoxyl) tablet 100 mcg, 100 mcg, Oral, qAM AC, Nam Dougherty MD, 100 mcg at 01/06/24 0558 lidocaine PF (Xylocaine) 1 % injection, , , PRN, Delbert Stover MD, 5 mL at 01/06/24 1049 metoprolol succinate XL (Toprol-XL) 24 hr tablet 50 mg, 50 mg, Oral, Daily, Nam Dougherty MD, 50mg at 01/06/24 0819 naloxone (Narcan) injection 0.4 mg, 0.4 mg, IntraVENous, q5 min PRN, Myah Hennessy MD ondansetron ODT (Zofran-ODT) disintegrating tablet [...] dexAMETHasone (PF) (Decadron) injection, , IntraVENous, PRN, Austen Arauz APRN - SALICYLIC ACID BLENDER, 10 mg at 01/06/24 1030 esmolol (Brevibloc) injection, , IntraVENous, PRN, Christopher Kobus, CONTINUOUS LINTER DRIER OPERATOR - SALICYLIC ACID BLENDER, 30 mg at 01/06/24 1030 heparin injection, , IntraVENous, PRN, Christopher Kobus, CONTINUOUS LINTER DRIER OPERATOR - SALICYLIC ACID BLENDER, 5,000 Units at 01/06/24 1115 lidocaine PF (Xylocaine) 2 % injection, , IntraVENous, PRN, Christopher Kobus, CONTINUOUS LINTER DRIER OPERATOR - SALICYLIC ACID BLENDER, 50 mg at 01/06/24 1030 magnesium sulfate IVPB premix, , IntraVENous, PRN, Christopher Kobus, CONTINUOUS LINTER DRIER OPERATOR - SALICYLIC ACID BLENDER, 2 g at 01/06/24 1040 Phenylephrine HCl (Pressors) 1 MG/10ML injection, , IntraVENous, PRN, Christopher Kobus, CONTINUOUS LINTER DRIER OPERATOR - SALICYLIC ACID BLENDER, 100 mcg at 01/06/24 1203 Propofol (Diprivan) injection, , IntraVENous, PRN, Christopher Kobus, CONTINUOUS LINTER DRIER OPERATOR - SALICYLIC ACID BLENDER, 200 mg at 01/06/24 1030 rocuronium (ZeMuron) injection, , IntraVENous, PRN, Jacekopher Kobus, CONTINUOUS LINTER DRIER OPERATOR - SALICYLIC ACID BLENDER, 50 mg at 01/06/24 1030 Continuous Infusions: sodium chloride, 75 mL/hr, Last Rate: 75 mL/hr (01/06/24 0024) Allergies: Patient has no known allergies. Relevant Results CLINICAL INDICATION: Follow-up intracranial hematoma TECHNIQUE: Transaxial CT sequence performed through the head with 3 mm reconstruction. Sagittal andCoronal reconstruction images included. Dose reduction was employed [...] Patient seen and discussed with Dr. Stover * KIARA Nelson CNP - 01/06/2024 6:00 AM EDT Images from the original note were not included. Daily Trauma Progress Note WINIFRED 01/06/2024 6:00 AM Admit Date: 01/01/2024 Post [...] which demonstrated SDH and was transferred to [facility]. INJURIES: -SDH PROCEDURES: None INCIDENTAL FINDINGS: None CHIEF COMPLAINT: Headache PREVIOUS 24 HOUR EVENTS: -NAEON -Plan for MMA emobolization today with neuro endovascular Consults: IP WOUND CARE NURSE CONSULT TO EVAL IP CONSULT TO ENDOVASCULAR NEUROLOGY IP CONSULT TO CARDIOLOGY MEDICATIONS: Current Facility-Administered Medications: acetaminophen (Tylenol) tablet 1,000 mg, 1,000 mg, Oral, 4 times per day, Chrissy Almeida DO, 1,000mg at 01/06/24 0023 albuterol 108 (90 Base) MCG/ACT inhaler 2 puff, 2 puff, Inhalation, q4h PRN, Nam Dougherty MD atorvastatin (Lipitor) tablet 40 mg, 40 mg, Oral, Nightly, Abhay Rios MD, 40 mg at 01/05/242099 citalopram (CeleXA) tablet 20 mg, 20 mg, Oral, Daily, Nam Dougherty MD, 20 mg at 01/05/24 08 dapagliflozin (Farxiga) tablet 10 mg, 10 mg, Oral, Daily, KIARA Arevalo CNP, 10 mg at 01/05/24 08 dextrose 5 % infusion, 100 mL/hr, IntraVENous, [...] 0.5 mg, IntraVENous, q4h PRN, KIARA Arevalo CNP,0.5 mg at 01/06/24 0150 levothyroxine (Synthroid, Levoxyl) tablet 100 mcg, 100 mcg, Oral, qAM AC, Nam Dougherty MD, 100 mcg at 01/06/24 0558 metoprolol succinate XL (Toprol-XL) 24 hr tablet 50 mg, 50 mg, Oral, Daily, Nam Dougherty MD, 50mg at 01/05/24 0822 mupirocin (Bactroban) 2 % ointment 1 Application, 1 Application, Nasal, BID, Nam Dougherty MD, 1Application at 01/05/24 210 naloxone (Narcan) injection 0.4 mg, 0.4 mg, IntraVENous, q5 min PRN, Myah Hennessy MD ondansetron ODT (Zofran-ODT) disintegrating tablet [...] tablet, Oral, Nightly, Chiquis Payne APRN - MARTIN, 8.6 mg at 01/05/24 2100 sodium chloride [...] mg, 25 mg, Oral, Daily, KIARA Arevalo FEATHERER, 25 mg at 01/05/24 0820 tamsulosin (Flomax) [...] for: PHOS PT/INR: No results found for: PROTIME, INR PTT: No results found for: APTT[APTT Last 3 Troponin: No results found for: TROPONINI Urine Culture: No components found for: CURINE Blood Culture: No components found for: CBLOOD, CFUNGUSBL Blood Culture from Central Line: No components found for: CBLOODLN Stool Culture: No components found for: CSTOOL Sputum Culture: No components found for: CSPUTUM Sputum Culture for AFB: No components found for: CAFBSM Wound Culture: None Radiology: POCT glucose meter Result Date: 01/02/2024 Performed by: [facility], [address] [place] [id number] CLIA ID: [id number] POCT glucose meter Result Date: 01/02/2024 Performed by: [facility], [address] [place] [id number] CLIA ID: [id number] POCT glucose meter Result Date: 01/02/2024 Performed by: [facility], [address] [place] [address] CLIA ID: [id number] CT head wo IV contrast Result Date: [...] images included. Dose reduction was employed with automatedexposure control. COMPARISON: 01/01/2024 at 2040 hours FINDINGS: There is redemonstration of a rightfrontal parietal mixed attenuating subdural collection measuring up [...] normal in size and configuration for age. Nomass effect or midline shift. No CT evidence [...] with automated exposure control. COMPARISON: 01/01/2024 from [facility] [place] FINDINGS: Rightfrontal convexity subdural hemorrhage does not appear significantly changed. No significant midlineshift. Tiny amount of subdural hemorrhage along the falx also unchanged. Right frontal encephalomala rita similar to previous study. No hydrocephalus. No effacement of the basal cisterns. 1. No significant change. Report Dictated on Electronically Signed By: Tacos Barba MD Electronically Signed Date/Time: 01/01/2024 9:06 PM EDT POCT glucose meter Result Date: 01/01/2024 Performed by: [facility], [address] [place] [address] CLIA ID: [id number] Patient Active Problem List Diagnosis Alcohol use [...] Alberto MD - 01/06/2024 11:27 AM EDT ~~~~~~~~~~~~~~~~~~~~~~~~~~~~~~~~~~~~~~~~~~~~~~~~~~~~~~~~~~~~~ ATTENDING ADDENDUM Patient Active Problem List Diagnosis [...] care plan as documented above by my CONTINUOUS LINTER DRIER OPERATOR/PA-C. I personally discussed the review of systems [...] today was >= 35 minutes (including chart/data review/analysiscare coordination, and gcgi-ot-[id number] encounter), and was spent discussing/counseling the patient/family [...] appropriate exam and evaluation Luz Alberto MD, [facility] Division of Trauma, Surgical Critical Care, & Acute Care Surgery Department of Surgery [facility] * Nancy Gonzalez, CONTINUOUS LINTER DRIER OPERATOR - FEATHERER - 01/05/2024 1:50 PM EDT Endovascular Neurology Note Patient Name:Brianne Walls Patient : 1955 Acct: [id number] Date of Admission: 01/01/2024 Room/Bed: [facility] PCP: ARTHUR CARVALHO MD HPI: Ange Walls is a 68 y.o. male presenting with headaches. Pt had 2 falls in past few weeks. Reports that he hit his head with the second fall and subsequently developed a headache[facility] headache for which CT was ordered. Imaging identified R SDH and pt was transferred to [facility] for further care. New Complaint: VSS [...] 4 times per day, Chrissy Almeida DO, 1,000mg at 01/05/24 1202 albuterol 108 (90 Base) MCG/ACT inhaler 2 puff, 2 puff, Inhalation, q4h PRN, Nam Dougherty MD atorvastatin (Lipitor) tablet 40 mg, 40 mg, Oral, Nightly, Abhay Rios MD, 40 mg at 01/04/242056 citalopram (CeleXA) tablet 20 mg, 20 mg, Oral, Daily, Nam Dougherty MD, 20 mg at 01/05/24 08 dapagliflozin (Farxiga) tablet 10 mg, 10 mg, Oral, Daily, Chiquis Payne APRN - FEATHERER, 10 mg at 01/05/24 08 dextrose 5 % infusion, 100 mL/hr, IntraVENous, [...] q12h, KIARA Arevalo CNP, 30 mg at 01/05/24 08 [Held by provider] furosemide (Lasix) tablet 40 mg, 40 mg, Oral, Daily PRN, Nam Dougherty MD glucagon (human recombinant) injection 1 mg, 1 mg, IntraMUSCular, PRN, Nam Dougherty MD glucose oral gel 15 g, 15 g, Oral, PRN, Nam Dougherty MD HYDROmorphone (Dilaudid) injection 0.5 mg, 0.5 mg, IntraVENous, q4h PRN, KIARA Arevalo CNP,0.5 mg at 01/05/24 1211 levothyroxine (Synthroid, Levoxyl) tablet 100 mcg, 100 mcg, Oral, qAM AC, Nam Dougherty MD, 100 mcg at 01/05/24 0623 metoprolol succinate XL (Toprol-XL) 24 hr tablet 50 mg, 50 mg, Oral, Daily, Nam Dougherty MD, 50mg at 01/05/24 0822 mupirocin (Bactroban) 2 % ointment 1 Application, 1 Application, Nasal, BID, Nam Dougherty MD, 1Application at 01/05/24 0825 naloxone (Narcan) injection 0.4 mg, 0.4 mg, IntraVENous, q5 min PRN, Myah Hennessy MD ondansetron ODT (Zofran-ODT) disintegrating tablet 4 mg, 4 mg, Oral, q8h PRN OR ondansetron (Zofran) injection 4 mg, 4 mg, IntraVENous, q6h PRN, Nam Dougherty MD oxyCODONE (Roxicodone) immediate release tablet 5 mg, 5 mg, Oral, q4h PRN OR oxyCODONE (Roxicodone) immediate release tablet 10 mg, 10 mg, Oral, q4h PRN, Chrissy Almeida, , 10 mg at 01/05/24 1022 polyethylene glycol (PEG) 3350 (Miralax) packet 17 g, 17 g, Oral, Daily PRN, Nam Dougherty MD sennosides (Senokot) tablet 8.6 mg, 1 tablet, Oral, Nightly, Chiquis Payne APRN - MARTIN, 8.6 mg at 01/04/242056 [START ON 01/06/2024] [...] the head with 3 mm reconstruction. Sagittal andCoronal reconstruction images included. Dose reduction was employed [...] Patient seen and discussed with Dr. Stover * Adrian Rothman MD - 01/05/2024 7:00 AM EDT This note is in-response to a CDI Query: -SDH likely worsened by Warfarin * KIARA Arevalo CNP - 01/05/2024 6:16 AM EDT Images from the original note were not included. Daily Trauma Progress Note WINIFRED 01/05/2024 6:16 AM Admit Date: 01/01/2024 Post [...] which demonstrated SDH and was transferred to [facility]. INJURIES: -SDH PROCEDURES: None INCIDENTAL FINDINGS: None CHIEF COMPLAINT: Headache PREVIOUS 24 HOUR EVENTS: -PT cleared for home -Plan for MMA emobolization 01/05 with neuro endovascular Consults: IP WOUND CARE NURSE CONSULT TO EVAL IP CONSULT TO ENDOVASCULAR NEUROLOGY IP CONSULT TO CARDIOLOGY MEDICATIONS: Current Facility-Administered Medications: acetaminophen (Tylenol) tablet 1,000 mg, 1,000 mg, Oral, 4 times per day, Chrissy Juan Pablo, DO, 1,000mg at 01/05/245 albuterol 108 (90 Base) MCG/ACT inhaler 2 puff, 2 puff, Inhalation, q4h PRN, Nam Dougherty MD atorvastatin (Lipitor) tablet 40 mg, 40 mg, Oral, Nightly, Abhay Rios MD, 40 mg at 01/04/242056 buPROPion SR (Wellbutrin SR) 12 hr tablet 150 mg, 150 mg, Oral, BID, Nam Dougherty MD, 150 mg at01/04/242056 citalopram (CeleXA) tablet 20 mg, 20 mg, Oral, Daily, Nam Dougherty MD, 20 mg at 01/04/24829 dapagliflozin (Farxiga) tablet 10 mg, 10 mg, Oral, Daily, KIARA Arevalo CNP, 10 mg at 01/04/24 121 dextrose 5 [...] syringe 30 mg, 30 mg, SubCUTAneous, q12h, Adrian Rothman MD, 30 mg at 01/04/242056 [Held by [...] 50 mg, Oral, Daily, Nam Dougherty MD, 50mg at 01/04/24 0831 mupirocin (Bactroban) 2 % ointment 1 Application, 1 Application, Nasal, BID, Nam Dougherty MD, 1Application at 01/04/24 0830 naloxone (Narcan) injection 0.4 mg, 0.4 mg, IntraVENous, q5 min PRN, Myah Hennessy MD ondansetron ODT (Zofran-ODT) disintegrating tablet 4 mg, 4 mg, Oral, q8h PRN OR ondansetron (Zofran) injection 4 mg, 4 mg, IntraVENous, q6h PRN, Nam Dougherty MD oxyCODONE (Roxicodone) immediate release tablet 5 mg, 5 mg, Oral, q4h PRN OR oxyCODONE (Roxicodone) immediate release tablet 10 mg, 10 mg, Oral, q4h PRN, Chrissy Almeida DO, 10 mg at 01/05/245 polyethylene glycol (PEG) 3350 (Miralax) packet 17 g, 17 g, Oral, Daily PRN, Nam Dougherty MD sennosides (Senokot) tablet 8.6 mg, 1 tablet, Oral, Nightly, Chiquis Payne, CONTINUOUS LINTER DRIER OPERATOR - FEATHERER, 8.6 mg at 01/04/242056 sodium chloride 0.9% (NS) flush 30 mL, 30 mL, IntraVENous, PRN, Nam Dougherty MD sodium chloride 0.9% (NS) flush 30 mL, 30 mL, IntraVENous, PRN, Nam Dougherty MD spironolactone (Aldactone) tablet 25 mg, 25 mg, Oral, Daily, Chiquis Payne CONTINUOUS LINTER DRIER OPERATOR - FEATHERER, 25 mg at 01/04/24 1215 tamsulosin (Flomax) 24 hr capsule 0.4 mg, [...] for: PHOS PT/INR: No results found for: PROTIME, INR PTT: No results found for: APTT[APTT Last 3 Troponin: No results found for: TROPONINI Urine Culture: No components found for: CURINE Blood Culture: No components found for: CBLOOD, CFUNGUSBL Blood Culture from Central Line: No components found for: CBLOODLN Stool Culture: No components found for: CSTOOL Sputum Culture: No components found for: CSPUTUM Sputum Culture for AFB: No components found for: CAFBSM Wound Culture: None Radiology: POCT glucose meter Result Date: 01/02/2024 Performed by: [facility], [address] [place] [address] CLIA ID: [id number] POCT glucose meter Result Date: 01/02/2024 Performed by: [facility], [address] [place] [address] CLIA ID: [id number] POCT glucose meter Result Date: 01/02/2024 [facility], [address] [place] [address] CLIA ID: [id number] [address] head wo IV contrast Result Date: [...] images included. Dose reduction was employed with automatedexposure control. COMPARISON: 01/01/2024 at 2040 hours FINDINGS: There is redemonstration of a rightfrontal parietal mixed attenuating subdural collection measuring up [...] normal in size and configuration for age. Nomass effect or midline shift. No CT evidence [...] CT HEAD WO IV CONTRAST Ordering Provider: CRANKSHAW, ,MYAH Reason For Exam: SDH follow up CT BRAIN WITHOUT CONTRAST CLINICAL INDICATION: SDH follow up TECHNIQUE: Noncontrast CT scan of the brain. Multiplanar reformations. Dose reduction was employed with automated exposure control. COMPARISON: 01/01/2024 from [facility] [place] FINDINGS: Rightfrontal convexity subdural hemorrhage does not appear significantly changed. No significant midlineshift. Tiny amount of subdural hemorrhage along the falx also unchanged. Right frontal encephalomala rita similar to previous study. No hydrocephalus. No effacement of the basal cisterns. 1. No significant change. Report Dictated on Electronically Signed By: Tacos Barba MD Electronically Signed Date/Time: 01/01/2024 9:06 PM EDT POCT glucose meter Result Date: 01/01/2024 Performed by: [facility], [address] [place] [address] CLIA ID: [id number] Patient Active Problem List Diagnosis Alcohol use disorder, severe, dependence ([facility]) Vegetative endocarditis of mitral valve Osteomyelitis ([facility]) Peripheral vascular disease (HCC) DVT (deep venous thrombosis) ([facility]) Chronic pain Bradycardia Acute blood loss anemia [...] Alberto MD - 01/05/2024 6:53 PM EDT ~~~~~~~~~~~~~~~~~~~~~~~~~~~~~~~~~~~~~~~~~~~~~~~~~~~~~~~~~~~~~ ATTENDING ADDENDUM Patient Active Problem List Diagnosis [...] care plan as documented above by my CONTINUOUS LINTER DRIER OPERATOR/CINDA. I personally discussed the review of systems [...] today was >= 35 minutes (including chart/data review/analysiscare coordination, and nrgh-ql-dehy encounter), and was spent discussing/counseling the patient/family [...] & Acute Care Surgery Department of Surgery [facility] * Isabell Golden, PT - 01/04/2024 10:39 AM EDT Images from the original note were not included. PHYSICAL THERAPY [facility] Initial Evaluation Name/MRN: Ange Walls ([id number]) Evaluation Date: 01/04/2024 Date of : 1955 Admission Date: 01/01/2024 5:23 PM Age: 68 y.o. Room/Bed: [facility] Discharge Recommendation: Home with assist PRN Equipment Needed: No Assessment IMPRESSION: PT eval completed and the pt presents with generalized weakness and limited safe mobility. SBA with bed mobility and transfers. CGA with ambulation and stairs. Mild LOB noted when attempting to turn around corners in hallway. Reported recent hx of increased falls. Still anticipated homewith home health services upon disch Admitting Diagnosis: [...] Hyperlipidemia Hypertension 01/13/2011 Hyperthyroidism Pacemaker Paroxysmal A-fib ([facility]) ([facility]) Pneumonia Past Surgical History: Past Surgical History: Procedure Laterality Date CARDIAC CATHETERIZATION N/A 05/25/2023 Performed by Lance Hobbs MD at [facility] Cardiac Cath/EP Lab CARDIAC VALVE REPLACEMENT 2010 [facility] HARDWARE REMOVAL Right 05/02/2016 SCREW IN RIGHT 4TH TOE INSERT / REPLACE / REMOVE PACEMAKER 10/10/2014 MITRAL VALVE REPLACEMENT 07/27/2014 bioprosthetic valve TRICUSPID VALVE SURGERY 07/27/2014 Repair Admission Diagnosis: Patient Active Problem List Diagnosis Date Noted SDH (subdural hematoma) ([facility]) 01/01/2024 Severe mitral regurgitation 07/29/2023 Chronic diastolic heart failure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 significant changes in strength, sensation, speech or vision. Headache has remained moderate in severity. No associated nausea/emesis. Of note, pt takes Warfarin for known history of HF/MVR. Last dose 12/30. Pt was reversed with Vit K and PCC at the OSH prior to transfer [facility]. CT imaging shows an acute on chronic SDH, measuring ~1.7cm in maximal diameter. There is mild mass effect, with preservation of sulcal spaces and ~3mm of MLS. Patient currently on a Regular diet with vanilla Ensure TID. Patient reports a good appetite. States he is not a sit down and eat 3 meals kind of nagi, will eat when he is hungry, would [...] Planning: No needs Kaya Olguin RD Contact: *[phone] * Chrissy Almeida DO - 01/02/2024 6:02 AM EDT Images from the original note [...] last two days.He went to his PCP todayto check PT/INR and informed them of his headache. His PCP obtained a CT scan which demonstrated SDH and was transferred to [facility]. Patient pain level currently is 9/10. PROCEDURES: [...] Oral, BID, Nam Dougherty MD, 150 mg at01/01/242057 citalopram (CeleXA) tablet 20 mg, 20 mg, [...] PRN, Nam Dougherty MD, 0.5 mg at 01/02/24 0508 Insulin Lispro (Humalog) injection 0-12 Units, 0-12 Units, SubCUTAneous, TID WC AND Insulin Lispro (Humalog) injection 0-12 Units, 0-12 Units, SubCUTAneous, Nightly, Nam Dougherty MD levothyroxine (Synthroid, Levoxyl) tablet 100 mcg, 100 mcg, Oral, qAM AC, Nam Dougherty MD, 100 mcg at 01/02/24 0509 metoprolol succinate XL (Toprol-XL) 24 hr tablet 50 mg, 50 mg, Oral, Daily, Nam Dougherty MD mupirocin (Bactroban) 2 % ointment 1 Application, 1 Application, Nasal, BID, Nam Dougherty MD, 1Application at 01/01/242057 naloxone (Narcan) injection 0.4 mg, 0.4 mg, IntraVENous, q5 min PRN, Myah Hennessy MD ondansetron ODT (Zofran-ODT) disintegrating tablet [...] smoking 6 months ago). Negative for shortness ofbreath. Cardiovascular: Negative for chest pain. Gastrointestinal: Negative [...] (H) 01/01/2024 PTT: No results found for: APTT[APTT Last 3 Troponin: No results found for: TROPONINI Urine Culture: No components found for: CURINE Blood Culture: No components found for: CBLOOD, CFUNGUSBL Blood Culture from Central Line: No components found for: CBLOODLN Stool Culture: No components found for: CSTOOL Sputum Culture: No components found for: CSPUTUM Sputum Culture for AFB: No components found for: CAFBSM Wound Culture: None Radiology: CT head wo IV contrast Result Date: 01/01/2024 Patient Name: BRIANNE WALLS : 1955 [facility]#: [id number] Exam Date/Time: 01/01/2024 20:41 Procedure: CT HEAD WO IV CONTRAST Ordering Provider: HENNESSY LAURA Reason For Exam: SDH follow up CT BRAIN WITHOUT CONTRAST CLINICAL INDICATION: SDH follow up TECHNIQUE: Noncontrast CT scan of the brain. Multiplanar reformations. Dose reduction was employed with automated exposure control. COMPARISON: 01/01/2024 from [facility] [place] FINDINGS: Rightfrontal convexity subdural hemorrhage does not appear significantly changed. No significant midlineshift. Tiny amount of subdural hemorrhage along the falx also unchanged. Right frontal encephalomala rita similar to previous study. No hydrocephalus. No effacement of the basal cisterns. 1. No significant change. Report Dictated on Electronically Signed By: Tacos Barba MD Electronically Signed Date/Time: 01/01/2024 9:06 PM EDT POCT glucose meter Result Date: 01/01/2024 Performed by: 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 (CMS/HCC) (HCC) Hypothyroidism Hyperlipidemia History of drug abuse (CMS/HCC) (HCC) Heart valve replaced by other means Depressive disorder Bacterial endocarditis Anxiety disorder Anemia Vitamin D deficiency Solitary pulmonary nodule Pleurisy Back problem senior living (current) use of anticoagulants 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) S/P mitral valve replacement Mitral valve insufficiency Prosthetic cardiac paravalvular leak, initial encounter Chronic diastolic heart failure (HCC) Pulmonary hypertension (HCC) CKD (chronic kidney disease) stage 2, GFR 60-89 ml/min Severe mitral regurgitation SDH (subdural hematoma) (HCC) ASSESSMENT: 68 y.o. 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 I personally discussed the review of systemsand interviewed the patient along with performing a physical examination. I reviewed the recent events, imaging, labs, vital signs. In addition, I discussed the patient's condition and treatment options with him/her when possible. I have also reviewed and agree with the past medical, family, and social history unless otherwise noted. All of the patient's questions were answered and family updatedwhen appropriate and possible. A complete review of systems was obtained and is negative except as stated in HPI and/or SubjectiveSection. -as per Dr. Almeida's note -I evaluated patient on 01/02/24 -Chief Complaint: headache, acute on chronic SDH -Neuro: SDH after fall 2 weeks ago with mild mass effect, CT head stable this AM, no acute surgicalintervention per Neurosurgery, Interventional Neuro consulted for possible [...] minutes (including chart/data review/analysis, care coordination, and [id number] encounter), and was spent discussing/counseling the patient/family [...] -Performing a medically appropriate exam and evaluation Adrian Rothman MD, FACS Trauma, Surgical Critical Care, & Acute Care Surgery Department of Surgery [facility] Pager: [phone] ~~~~~~~~~~~~~~~~~~~~~~~~~~~~~~~~~~~~~~~~~~~~~~~~~~~~~~~~~~~~~ This note may have been dictated using [employer] Medical Practice Edition 2.6 and/or [employer] Voice Recognition Feature. The document was proofread; however, unrecognized voice recognition quality improvement analyst errors may be present. * Adrian Rothman MD - 01/01/2024 5:30 PM EDT I was notified by the resident that the patient had arrived on T2 as a Direct Admit. I immediately came to T2 ICU to evaluate patient. I was at the bedside within 15 minutes of patient arrival. Please see H&P for further details. documented in this [place] [id number] Miscellaneous Notes* Care Coordination - Mamie Tam RN - 01/07/2024 8:45 AM EDT Images from the original note were not included. Care Management Progress Note Pt on T2 s/p two week old SDH with small shift. PT/OT recommending home with assist PRN. MMA 01/05. Will follow. Discharge Milestones and Delays Expected date/time: 01/08/[address] discharge order Complete med reconciliation Case mgmt discharge readiness Clinical Stability Diagnostic Workup Career Agent Recommendations Imaging Results PT discharge readiness OT discharge readiness Patient Education Complete Expected Discharge History Expected Date/Time Set By Reviewed At 01/08/2024 Mamie Tam RN 01/07/2024 5:54 AM 01/09/2024 Mamie Tam RN 01/06/2024 5:47 AM 01/09/2024 Mamie Tam RN 01/05/2024 5:46 AM 01/04/2024 Mamie Tam RN 01/04/2024 5:45 AM 01/03/2024 Nam Dougherty MD 01/01/2024 5:54 PM Length of Stay (Days): 6 GMLOS: 4.7 * Brief Op Note - Delbert Stover MD - 01/06/2024 1:16 PM EDT Date: 01/01/2024 - 01/06/2024 Location: [facility] IR Thin Log Right MMA embolization with liquid embolic agent Delbert Stover MD Difficult access into right MMA since looped origin. Once successful, navigated into anterior duralbranch of right MMA. Excellent penetration of dural branch with Carl 18 Complications : none EBL: 50 ml Groin closure with 6/7 Fr Mynx Recs: Post angio orders Follow up in 6 weeks Rpt CTH in 6 weeks. Watch scalp for redness or early signs of ischemia for next 4 weeks * Care Plan - Melba José RN - 01/06/2024 10:28 AM EDT The patient is Moderately Stable - Low [...] Recommendations to address these barriers include procedure. * Care Coordination - Mamie Tam RN - 01/06/2024 10:24 AM EDT Images from the original note [...] Length of Stay (Days): 5 GMLOS: 4.7 * Care Coordination - Mamie Tam RN - 01/05/2024 8:14 AM EDT Images from the original note were not included. Care Management Progress Note Pt remains on 3W s/p two week old SDH with small shift. PT/OT recommending home with assist PRN. Ptawaiting MMA on 01/05. Will follow. Discharge Milestones [...] Length of Stay (Days): 4 GMLOS: 3 * Care Plan - Chrissy Harris RN - 01/04/2024 9:55 PM EDT Problem: Knowledge Deficit Goal: Patient/family/caregiver demonstrates understanding of disease process, treatment plan, medications, and discharge instructions Outcome: Progressing Problem: Potential for Compromised Skin Integrity Goal: Skin Integrity is Maintained or Improved Outcome: Progressing Goal: Nutritional status is improving Outcome: Progressing Problem: Urinary Incontinence Goal: Perineal skin integrity is maintained or improved Outcome: Progressing * Care Coordination - Mamie Tam RN - 01/04/2024 10:57 AM EDT Care Managment Initial Assessment Date: 01/04/2024 Patient Name: Brianne Walls : 1955 Patient Information Source of Information: Patient Cognition/Language: WFL - Within Functional Limits Permission given to speak with patient financial service representative/caregiver as indicated: Yes Confirmation of Payer with patient/family: Yes Payer Name: Medicare : No Confirmation of Primary Care Physician: Confirmed PCP Name: Arthur Carvalho MD Seen in last 2 years?: Yes Primary Caregiver: Self If assistance needed, confirmed caregiver ready, willing and able to care for patient at discharge:Yes Confirmed with: [facility] Living Arrangements Current Residence: [...] assist. Awaiting consult for endovascular. Will follow. * Care Plan - Chrissy Harris RN - 01/03/2024 9:03 PM EDT Problem: Knowledge Deficit Goal: Patient/family/caregiver demonstrates understanding of disease process, treatment plan, medications, and discharge instructions Outcome: Progressing Problem: Potential for Compromised Skin Integrity Goal: Skin Integrity is Maintained or Improved Outcome: Progressing Goal: Nutritional status is improving Outcome: Progressing Problem: Urinary Incontinence Goal: Perineal skin integrity is maintained or improved Outcome: Progressing * Care Plan - Saadia Altamirano RN - 01/02/2024 6:16 AM EDT Problem: Knowledge Deficit Goal: Patient/family/caregiver demonstrates [...] include stable neuro exam documented in this [facility]08-22-2024 Note* Care Coordination - Mamie Tam RN - 01/07/2024 8:45 AM EDT Images from the original note were not included. Care Management Progress Note Pt on T2 s/p two week old SDH with small shift. PT/OT recommending home with assist PRN. [facility] 01/05. Will follow. Discharge Milestones and Delays Expected date/time: 01/08/[address] discharge order Complete med reconciliation Case mgmt discharge readiness Clinical Stability Diagnostic Workup Career Agent Recommendations Imaging Results PT discharge readiness OT discharge readiness Patient Education Complete Expected Discharge History Expected Date/Time Set By Reviewed At 01/08/2024 Mamie Tam RN 01/07/2024 5:54 AM 01/09/2024 Mamie Tam RN 01/06/2024 5:47 AM 01/09/2024 Mamie Tam RN 01/05/2024 5:46 AM 01/04/2024 Mamie Tam RN 01/04/2024 5:45 AM 01/03/2024 Nam Dougherty MD 01/01/2024 5:54 PM Length of Stay (Days): 6 GMLOS: 4.[address] [id number] Note* Care Coordination - Mamie Tam RN - 01/07/2024 8:45 AM EDT Images from the original note were not included. Care Management Progress Note Pt on T2 s/p two week old SDH with small shift. PT/OT recommending home with assist PRN. MMA 01/05. Will follow. Discharge Milestones and Delays Expected date/time: 01/08/[address] discharge order Complete med reconciliation Case mgmt discharge readiness Clinical Stability Diagnostic Workup Career Agent Recommendations Imaging Results PT discharge readiness OT discharge readiness Patient Education Complete Expected Discharge History Expected Date/Time Set By Reviewed At 01/08/2024 Mamie Tam RN 01/07/2024 5:54 AM 01/09/2024 Mamie Tam RN 01/06/2024 5:47 AM 01/09/2024 Mamie Tam RN 01/05/2024 5:46 AM 01/04/2024 Mamie Tam RN 01/04/2024 5:45 AM 01/03/2024 Nam Dougherty MD 01/01/2024 5:54 PM Length of Stay (Days): 6 GMLOS: 4.[address] [facility] [id number] Note* Brief Op Note - Delbert Stover MD - 01/06/2024 1:16 PM EDT Date: 01/01/2024 - 01/06/2024 Location: [facility] IR Thin Log Right MMA embolization with liquid embolic agent Delbert Stover MD Difficult access into right MMA since looped origin. Once successful, navigated into anterior duralbranch of right MMA. Excellent penetration of dural branch with Carl 18 Complications : none EBL: 50 ml Groin closure with 6/7 Fr Mynx Recs: Post angio orders Follow up in 6 weeks Rpt CTH in 6 weeks. Watch scalp for redness or early signs of ischemia for next 4 weeks [employer] Phone: [phone]) 722-572408-21-2024 Note* Brief Op Note - Delbert Stover MD - 01/06/2024 1:16 PM EDT Date: 01/01/2024 - 01/06/2024 Location: [facility] IR Thin Log Right MMA embolization with liquid embolic agent Delbert Stover MD Difficult access into right MMA since looped origin. Once successful, navigated into anterior duralbranch of right MMA. Excellent penetration of dural branch with Gipsy 18 Complications : none EBL: 50 ml Groin closure with 6/7 Fr Mynx Recs: Post angio orders Follow up in 6 weeks Rpt CTH in 6 weeks. Watch scalp for redness or early signs of ischemia for next 4 weeks [employer] Phone: 1(959) 497-524608-21-2024 Plan of care note* Care Plan - Melba José RN - 01/06/2024 10:28 AM EDT The patient is Moderately Stable - Low [...] Recommendations to address these barriers include procedure. [id number] Note* Care Coordination - Mamie Tam RN - 01/06/2024 10:24 AM EDT Images from the original note [...] Length of Stay (Days): 5 GMLOS: 4.7 [facility]08-21-2024 Note* Care Coordination - Mamie Tam RN - 01/06/2024 10:24 AM EDT Images from the original note [...] Stay (Days): 5 GMLOS: 4.[address] [facility] [address] [facility] [id number] Note* Care Coordination - Mamie Tam RN - 01/05/2024 8:14 AM EDT Images from the original note were not included. Care Management Progress Note Pt remains on 3W s/p two week old SDH with small shift. PT/OT recommending home with assist PRN. Ptawaiting MMA on 01/05. Will follow. Discharge Milestones [...] Length of Stay (Days): 4 GMLOS: 3 [facility]08-20-2024 Note* Care Coordination - Mamie Tam RN - 01/05/2024 8:14 AM EDT Images from the original note were not included. Care Management Progress Note Pt remains on 3W s/p two week old SDH with small shift. PT/OT recommending home with assist PRN. Ptawaiting MMA on 01/05. Will follow. Discharge Milestones [...] Stay (Days): 4 GMLOS: [address] [facility] [id number] Plan of care note* Care Plan - Chrissy Harris RN - 01/04/2024 9:55 PM EDT Problem: Knowledge Deficit Goal: Patient/family/caregiver demonstrates understanding of disease process, treatment plan, medications, and discharge instructions Outcome: Progressing Problem: Potential for Compromised Skin Integrity Goal: Skin Integrity is Maintained or Improved Outcome: Progressing Goal: Nutritional status is improving Outcome: Progressing Problem: Urinary Incontinence Goal: Perineal skin integrity is maintained or improved Outcome: Progressing [facility] [id number] Consult note* KIARA Tavarez CNP - 01/04/2024 1:20 PM EDTAssociated Order(s): Inpatient consult to Endovascular Neurology--[facility] Inpatient consult to Endovascular Neurology--[facility] Consult performed by: Nancy Gonzalez APRN - FEATHERER Consult ordered by: Myah Hennessy MD Reason for consult: SDH History Of Present Illness Ange Walls is a 68 y.o. male presenting with headaches. Pt had 2 falls in past few weeks. Reportsthat he hit his head with the second fall and subsequently developed a headache. He was at [facility] for check of INR and mentioned headache for which CT was ordered. Imaging identified R SDH and pt was transferred to [facility] for further care. Past Medical History He has a past medical history of Anemia, Arthritis, Bone infection ([facility]), CAD (coronary artery disease), Chronic back pain, Chronic kidney disease, 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) (04/30/2023), COPD (chronic obstructive pulmonary disease) ([facility]), Depression, DVT (deep venous thrombosis) ([facility]), Endocarditis, History of blood transfusion, Hyperlipidemia, Hypertension (01/13/2011), Hyperthyroidism, Pacemaker, Paroxysmal A-fib ([facility]) ([facility]), and Pneumonia. He has no past medical history of Asthma, Blood circulation, collateral, Cancer ([facility]) ([facility]), Cerebral artery occlusion with cerebral infarction (HCC), Diabetes mellitus (HCC), Disease of blood and blood forming organ, GERD (gastroesophageal reflux disease), Hemodialysis patient ([facility]) ([facility]),Liver disease, Movement disorder, Neuromuscular disorder ([facility]), Other disorders of kidney and ureter in diseases classified elsewhere, or Seizures ([facility]). Surgical History He has a past surgical [...] of breath, swelling). 90 tablet 0 HYDROcodone-acetaminophen ([place]) 5-325 MG tablet TAKE 1 TABLET BY [...] resp. rate 16, height 1.778 m (5' 10), weight 70.9 kg (156 lb 3.2 oz), SpO2 94%. Relevant Results CLINICAL INDICATION: Follow-up intracranial hematoma TECHNIQUE: Transaxial CT sequence performed through the head with 3 mm reconstruction. Sagittal andCoronal reconstruction images included. Dose reduction was employed [...] and discussed with Dr. Stover. 35 minutes WINIFRED time spent reviewing imaging, and completing assessment and plan. T [facility] [id number] Consult note* KIRAA Tavarez CNP - 01/04/2024 1:20 PM EDTAssociated Order(s): Inpatient consult to Endovascular Neurology--[facility] Inpatient consult to Endovascular Neurology--[facility] Consult performed by: KIARA Tavarez CNP Consult ordered by: Myah Hennessy MD Reason for consult: SDH History Of Present Illness Ange Walls is a 68 y.o. male presenting with headaches. Pt had 2 falls in past few weeks. Reportsthat he hit his head with the second fall and subsequently developed a headache. He was at [facility] for check of INR and mentioned headache for which CT was ordered. Imaging identified R SDH and pt was transferred to [facility] for further care. Past Medical History He has a past medical history of Anemia, Arthritis, Bone infection ([facility]), CAD (coronary artery disease), Chronic back pain, Chronic kidney disease, 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 ([facility]) (04/30/2023), COPD (chronic obstructive pulmonary disease) ([facility]), Depression, DVT (deep venous thrombosis) ([facility]), Endocarditis, History of blood transfusion, Hyperlipidemia, Hypertension (01/13/2011), Hyperthyroidism, Pacemaker, Paroxysmal A-fib (CMS/HCC) ([facility]), and Pneumonia. He has no past medical history of Asthma, Blood circulation, collateral, Cancer (CMS/HCC) (HCC), Cerebral artery occlusion with cerebral infarction (HCC), Diabetes mellitus (HCC), Disease of blood and blood forming organ, GERD (gastroesophageal reflux disease), Hemodialysis patient (CMS/HCC) (HCC),Liver disease, Movement disorder, Neuromuscular disorder (HCC), Other disorders of kidney and ureter in diseases classified elsewhere, or Seizures (HCC). Surgical History He has a past surgical [...] of breath, swelling). 90 tablet 0 HYDROcodone-acetaminophen ([place]) 5-325 MG tablet TAKE 1 TABLET BY [...] resp. rate 16, height 1.778 m (5' 10), weight 70.9 kg (156 lb 3.2 oz), SpO2 94%. Relevant Results CLINICAL INDICATION: Follow-up intracranial hematoma TECHNIQUE: Transaxial CT sequence performed through the head with 3 mm reconstruction. Sagittal andCoronal reconstruction images included. Dose reduction was employed [...] and discussed with Dr. Stover. 35 minutes WINIFRED time spent reviewing imaging, and completing assessment and plan. * Mariana Reid MD - 01/02/2024 9:36 AM EDT NEUROSURGERY FOLLOW-UP NOTE Patient Name: Brianne Walls Patient : 1955 PCP: ARTHUR CARVALHO MD Patient seen and examined at bedside. No acute events overnight. Describes his headache as stable, no new neurological complaints. We discussed his recent CT brain results and my interpretation of imaging remains stable. Past Medical History: Past Medical History: Diagnosis Date Anemia Arthritis Bone infection ([facility]) spine CAD (coronary artery disease) Chronic back pain Chronic kidney disease 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 ([facility]) 04/30/2023 COPD (chronic obstructive pulmonary disease) ([facility]) Depression DVT (deep venous thrombosis) ([facility]) Endocarditis History of blood transfusion Hyperlipidemia Hypertension 01/13/2011 Hyperthyroidism Pacemaker Paroxysmal A-fib (CMS/HCC) ([facility]) Pneumonia Past Surgical History: Past Surgical History: Procedure Laterality Date CARDIAC CATHETERIZATION N/A 05/25/2023 Performed by Lance Hobbs MD at [facility] Cardiac Cath/EP Lab CARDIAC VALVE REPLACEMENT [...] aspirin until INR above 2.0 07/31/23 07/30/24 Gabi Leonardo APRN - FEATHERER atorvastatin (Lipitor) 20 MG tablet Take 20 [...] breath, swelling). 11/20/23 Lance Hobbs MD HYDROcodone-acetaminophen ([place]) 5-325 MG tablet TAKE 1 TABLET BY MOUTH FOUR TIMES DAILY FOR 28 DAYS 04/07/23 Historical Provider, MD [facility] M20 20 MEQ ER tablet TAKE 1 TABLET (20 MEQ) BY MOUTH EVERY OTHER DAY. DO NOT CRUSH OR CHEW. TAKE 40 MEQ ON DAY 1 AND THEN 20 MEQ EVERY OTHER DAY THERAFTER 10/21/23 Josephine Lees APRN - FEATHERER levothyroxine (Synthroid, Levoxyl) 100 MCG tablet Take [...] started smoking about 48 years ago. He hasa 24.3 pack-year smoking history. He has never [...] Age of Onset Atrial fibrillation Mother Other ([address]) Mother pacemaker Heart disease Father Review of [...] AM. In my interpretation, known right acute/chronic SDHremains stable with mild mass effect. Minimal MLS. [...] candidate for MMAE. We'll continue to follow. Mariana Reid MD [facility] Neurosurgery I spent 45 minutes of my independent time evaluating the patient, reviewing the medical record, andcounseling/coordinating care regarding SDH. * Lance Gianni Hobbs MD - 01/02/2024 7:33 AM EDTAssociated Order(s): IP CONSULT TO CARDIOLOGY [facility] [place] [facility] Cardiology /Electrophysiology Consult Note Reason for Consult/Chief Complaint: Fall/SDH Established integrity manager: History of Present Illness: Mr. Walls is a 68-year-old man with a history of heart failure with midrange ejection fraction, bioprosthetic MVR followed by infective endocarditis now status post redo bioprosthetic MVR (#29 Medtronic tissue valve), severe paravalvular mitral valve leak s/p successful percutaneous plugging, TVr(#36 mm ring) in 2014 CKD III, hypertension, pAF, s/p PPM, who presents for a SDH after a fall. I met Mr. Noble for the first time just under a year ago for pulmonary hypertension, but the workup (including right heart catheterization and transesophageal echocardiogram) found a severe paravalvular leak around his mitral valve responsible for a great degree of his pulmonary hypertension and s hortness of breath. After successful percutaneous plugging, he [...] anticoagulation: His indication for anticoagulation is paroxysmal atrialfibrillation. He has not had atrial fibrillation for [...] leak now status post block: Repeat transthoracic echocardiogramshowed improvement of the mitral regurgitation, but persistent pulmonary hypertension that is likely precapillary in nature, but could be secondary to longstanding group 2 pulmonary hypertension. Hiscurrent medications include furosemide 40 mg/day, spironolactone 25 mg/day, and empagliflozin 10 mg/day. These can be held while he is an inpatient if desired, but should be restarted at the earliestpossible time. Bioprosthetic mitral valve replacement: With a #29 Medtronic tissue valve in 2014 at [facility]. He is functioning well and his paravalvular [...] 0.91 EGFR >90.0 No results for input(s): CKTOTAL, CKMB, CKMBINDEX, TROPONINI in the last 72 hours. Recent [...] 1835 INR 1.4* No results found for: IRON, TIBC, FERRITIN Radiology: CXR: personally reviewed: Cardiac Tests Personally Reviewed: Last EKG 09/10/23 ECG 12-LEAD 09/28/2023 8:19 AM (Final) Narrative Atrial Rhythm P:QRS - 1:1, Abnormal P axis, H Rate 70 -Intraventricular conduction defect and left axis -possible anterior fascicular block consider ventricular hypertrophy. -Negative T-waves -May be normal -possible Anteroseptal ischemia. ABNORMAL Signed by: Shaw Nicholas MD on 09/28/2023 8:19 AM Telemetry [...] perhaps some pulmonaryvascular remodeling. Borderline cardiac index. Signed by: Lance Hobbs MD on 05/25/2023 9:55 AM Last Stress Test No results found for this or any previous visit. Last EP study No results found for this or any previous visit. EF BP Date Value Ref Range Status 09/10/2023 46 (A) 55 - 100 % Final DAY Score Link Lance Hobbs MD, PhD Advanced Heart Failure Cardiology [facility] [employer] Heart and Vascular [place] 7:34 AM 01/02/24 * Mariana Reid MD - 01/01/2024 7:41 PM EDT NEUROSURGERY CONSULT NOTE Patient Name: Brianne Walls [...] ago and reported this to his PCP duringan INR check, which prompted cranial imaging. He remains at his neurological baseline. No significant changes in strength, sensation, speech or vision. Headache has remained moderate in severity. No associated nausea/emesis. Of note, he takes Warfarin for his known history of HF/MVR with a goal INR of 2- 3. Last dose 12/30. He was reversed with Vit K and PCC at the OSH prior to transfer to [facility]. Most recent INR 1.4. I discussed the CT brain findings with Ange and his at bedside. On my review, imaging shows anacute on chronic SDH, measuring ~1.7cm in maximal diameter. There is mild mass effect, with preservation of sulcal spaces and ~3mm of MLS. Past Medical History: Past Medical History: Diagnosis Date Anemia Arthritis Bone infection ([facility]) spine CAD (coronary artery disease) Chronic back pain Chronic kidney disease 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 ([facility]) 04/30/2023 COPD (chronic obstructive pulmonary disease) ([facility]) Depression DVT (deep venous thrombosis) ([facility]) Endocarditis History of blood transfusion Hyperlipidemia Hypertension 01/13/2011 Hyperthyroidism Pacemaker Paroxysmal A-fib ([facility]/HCC) ([facility]) Pneumonia Past Surgical History: Past Surgical History: Procedure Laterality Date CARDIAC CATHETERIZATION N/A 05/25/2023 Performed by Lance Hobbs MD at [facility] Cardiac Cath/EP Lab CARDIAC VALVE REPLACEMENT [...] aspirin until INR above 2.0 07/31/23 07/30/24 Gabi Leonardo APRN - FEATHERER atorvastatin (Lipitor) 20 MG tablet Take 20 [...] breath, swelling). 11/20/23 Lance Hobbs MD HYDROcodone-acetaminophen ([place]) 5-325 MG tablet TAKE 1 TABLET BY MOUTH FOUR TIMES DAILY FOR 28 DAYS 04/07/23 Historical Provider, MD MERRILL-NELL M20 20 MEQ ER tablet TAKE 1 TABLET (20 MEQ) BY MOUTH EVERY OTHER DAY. DO NOT CRUSH OR CHEW. TAKE 40 MEQ ON DAY 1 AND THEN 20 MEQ EVERY OTHER DAY THERAFTER 10/21/23 Josephine Lees APRN - FEATHERER levothyroxine (Synthroid, Levoxyl) 100 MCG tablet Take [...] started smoking about 48 years ago. He hasa 24.3 pack-year smoking history. He has never [...] Age of Onset Atrial fibrillation Mother Other ([id number]) Mother pacemaker Heart disease Father Review of [...] / PLAN : Overall, patient has an ofhxq-uz-csfcwus SDH which correlates with his reported history [...] recs pending his clinical progress and further zoaylzsa-hj-prnnwpsk discussions. I spent 60 minutes of my independent time evaluating the patient, reviewing the medical record, andcounseling/coordinating care regarding his acute on chronic SDH and history of AC use. documented in this [facility]08-19-2024 Note* Care Coordination - Mamie Tam RN - 01/04/2024 10:57 AM EDT Care Managment Initial Assessment Date: 01/04/2024 Patient Name: Brianne Walls : 1955 Patient Information Source of Information: Patient Cognition/Language: WFL - Within Functional Limits Permission given to speak with patient financial service representative/caregiver as indicated: Yes Confirmation of Payer with patient/family: Yes Payer Name: Medicare : No Confirmation of Primary Care Physician: Confirmed PCP Name: Arthur Carvalho MD Seen in last 2 years?: Yes Primary Caregiver: Self If assistance needed, confirmed caregiver ready, willing and able to care for patient at discharge:Yes Confirmed with: Ange Living Arrangements Current Residence: [...] assist. Awaiting consult for endovascular. Will follow. [employer] [id number] Note* Care Coordination - Mamie Tam RN - 01/04/2024 10:57 AM EDT Care Managment Initial Assessment Date: 01/04/2024 Patient Name: Brianne Walls : 1955 Patient Information Source of Information: Patient Cognition/Language: WFL - Within Functional Limits Permission given to speak with patient financial service representative/caregiver as indicated: Yes Confirmation of Payer with patient/family: Yes Payer Name: Medicare : No Confirmation of Primary Care Physician: Confirmed PCP Name: Arthur Carvalho MD Seen in last 2 years?: Yes Primary Caregiver: Self If assistance needed, confirmed caregiver ready, willing and able to care for patient at discharge:Yes Confirmed with: Ange Living Arrangements Current Residence: [...] assist. Awaiting consult for endovascular. Will follow. [facility] [id number] Nurse Note* Kathy Moon RN - 01/04/2024 8:11 AM EDT Wound Care consulted for Pressure Injury Prevention. Pt's Guevara= 20, pt is no longer at risk. Skin Care Precaution order set in place. Will continue to follow peripherally. Please voicera or secure chat message with any questions. Betsy Moon RN, CWCN [facility] [id number] Plan of care note* Care Plan - Chrissy Harris RN - 01/03/2024 9:03 PM EDT Problem: Knowledge Deficit Goal: Patient/family/caregiver demonstrates understanding of disease process, treatment plan, medications, and discharge instructions Outcome: Progressing Problem: Potential for Compromised Skin Integrity Goal: Skin Integrity is Maintained or Improved Outcome: Progressing Goal: Nutritional status is improving Outcome: Progressing Problem: Urinary Incontinence Goal: Perineal skin integrity is maintained or improved Outcome: [facility]ing [id number] Consult note* Mariana Reid MD - 01/02/2024 9:36 AM EDT NEUROSURGERY FOLLOW-UP NOTE Patient Name: Brianne Walls Patient : 1955 PCP: ARTHUR CARVALHO MD Patient seen and examined at bedside. No acute events overnight. Describes his headache as stable, no new neurological complaints. We discussed his recent CT brain results and my interpretation of imaging remains stable. Past Medical History: Past Medical History: Diagnosis Date Anemia Arthritis Bone infection ([facility]) spine CAD (coronary artery disease) Chronic back pain Chronic kidney disease 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 ([facility]) 04/30/2023 COPD (chronic obstructive pulmonary disease) ([facility]) Depression DVT (deep venous thrombosis) ([facility]) Endocarditis History of blood transfusion Hyperlipidemia Hypertension 01/13/2011 Hyperthyroidism Pacemaker Paroxysmal A-fib (CMS/HCC) ([facility]) Pneumonia Past Surgical History: Past Surgical History: Procedure Laterality Date CARDIAC CATHETERIZATION N/A 05/25/2023 Performed by Lance Hobbs MD at [facility] Cardiac Cath/EP Lab CARDIAC VALVE REPLACEMENT [...] aspirin until INR above 2.0 07/31/23 07/30/24 Gabi Leonardo CONTINUOUS LINTER DRIER OPERATOR - FEATHERER atorvastatin (Lipitor) 20 MG tablet Take 20 [...] breath, swelling). 11/20/23 Lance Hobbs MD HYDROcodone-acetaminophen ([place]) 5-325 MG tablet TAKE 1 TABLET BY [...] started smoking about 48 years ago. He hasa 24.3 pack-year smoking history. He has never [...] Age of Onset Atrial fibrillation Mother Other ([id number]) Mother pacemaker Heart disease Father Review of [...] AM. In my interpretation, known right acute/chronic SDHremains stable with mild mass effect. Minimal MLS. [...] candidate for MMAE. We'll continue to follow. Mariana Reid MD [facility] Neurosurgery I spent 45 minutes of my independent time evaluating the patient, reviewing the medical record, andcounseling/coordinating care regarding SDH. [employer] Work Phone: [phone] Consult note* Lance Hobbs MD - 01/02/2024 7:33 AM EDTAssociated Order(s): IP CONSULT TO CARDIOLOGY [facility] Heart & Vascular [place] [facility] Cardiology /Electrophysiology Consult Note Reason for Consult/Chief Complaint: Fall/SDH Established integrity manager: Me History of Present Illness: Mr. Walls is a 68-year-old man with a history of heart failure with midrange ejection fraction, bioprosthetic MVR followed by infective endocarditis now status post redo bioprosthetic MVR (#29 Medtronic tissue valve), severe paravalvular mitral valve leak s/p successful percutaneous plugging, TVr(#36 mm ring) in 2014 CKD III, hypertension, pAF, s/p PPM, who presents for a SDH after a fall. I met Mr. Noble for the first time just under a year ago for pulmonary hypertension, but the workup (including right heart catheterization and transesophageal echocardiogram) found a severe paravalvular leak around his mitral valve responsible for a great degree of his pulmonary hypertension and s hortness of breath. After successful percutaneous plugging, he [...] anticoagulation: His indication for anticoagulation is paroxysmal atrialfibrillation. He has not had atrial fibrillation for [...] leak now status post block: Repeat transthoracic echocardiogramshowed improvement of the mitral regurgitation, but persistent pulmonary hypertension that is likely precapillary in nature, but could be secondary to longstanding group 2 pulmonary hypertension. Hiscurrent medications include furosemide 40 mg/day, spironolactone 25 mg/day, and empagliflozin 10 mg/day. These can be held while he is an inpatient if desired, but should be restarted at the earliestpossible time. Bioprosthetic mitral valve replacement: With a #29 Medtronic tissue valve in 2014 at [facility]. He is functioning well and his paravalvular [...] 0.91 EGFR >90.0 No results for input(s): CKTOTAL, CKMB, CKMBINDEX, TROPONINI in the last 72 hours. Recent [...] 1835 INR 1.4* No results found for: IRON, TIBC, FERRITIN Radiology: CXR: personally reviewed: Cardiac Tests Personally Reviewed: Last EKG 09/10/23 ECG 12-LEAD 09/28/2023 8:19 AM (Final) Narrative Atrial Rhythm P:QRS - 1:1, Abnormal P axis, H Rate 70 -Intraventricular conduction defect and left axis -possible anterior fascicular block consider ventricular hypertrophy. -Negative T-waves -May be normal -possible Anteroseptal ischemia. ABNORMAL Signed by: Shaw Nicholas MD on 09/28/2023 8:19 AM Telemetry [...] perhaps some pulmonaryvascular remodeling. Borderline cardiac index. Signed by: Lance Hobbs MD on 05/25/2023 9:55 AM Last Stress Test No results found for this or any previous visit. Last EP study No results found for this or any previous visit. EF BP Date Value Ref Range Status 09/10/2023 46 (A) 55 - 100 % Final DAY Score Link Lance Hobbs MD, PhD Advanced Heart Failure Cardiology [facility] Heart and Vascular [place] 7:34 AM 01/02/24 [id number] Plan of care note* Care Plan - Saadia Altamirano RN - 01/02/2024 6:16 AM EDT Problem: Knowledge Deficit Goal: Patient/family/caregiver demonstrates [...] for the shift include stable neuro exam [facility] [id number] Consult note* Mariana Reid MD - 01/01/2024 7:41 PM EDT NEUROSURGERY CONSULT NOTE Patient Name: Brianne Walls [...] ago and reported this to his PCP duringan INR check, which prompted cranial imaging. He remains at his neurological baseline. No significant changes in strength, sensation, speech or vision. Headache has remained moderate in severity. No associated nausea/emesis. Of note, he takes Warfarin for his known history of HF/MVR with a goal INR of 2- 3. Last dose 12/30. He was reversed with Vit K and PCC at the OSH prior to transfer to [facility]. Most recent INR 1.4. I discussed the CT brain findings with Ange and his at bedside. On my review, imaging shows anacute on chronic SDH, measuring ~1.7cm in maximal diameter. There is mild mass effect, with preservation of sulcal spaces and ~3mm of MLS. Past Medical History: Past Medical History: Diagnosis Date Anemia Arthritis Bone infection (HCC) spine CAD (coronary artery disease) Chronic back pain Chronic kidney disease 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) 04/30/2023 COPD (chronic obstructive pulmonary disease) ([facility]) Depression DVT (deep venous thrombosis) ([facility]) Endocarditis History of blood transfusion Hyperlipidemia Hypertension 01/13/2011 Hyperthyroidism Pacemaker Paroxysmal A-fib (CMS/HCC) ([facility]) Pneumonia Past Surgical History: Past Surgical History: Procedure Laterality Date CARDIAC CATHETERIZATION N/A 05/25/2023 Performed by Lance Hobbs MD at 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 11/20/23 Lance Hobbs MD HYDROcodone-acetaminophen ([place]) 5-325 MG tablet TAKE 1 TABLET BY [...] started smoking about 48 years ago. He hasa 24.3 pack-year smoking history. He has never [...] Age of Onset Atrial fibrillation Mother Other ([id number]) Mother pacemaker Heart disease Father Review of [...] / PLAN : Overall, patient has an ilcdu-dr-yqtouar SDH which correlates with his reported history [...] recs pending his clinical progress and further lwtiojpv-wq-zsdalqur discussions. I spent 60 minutes of my independent time evaluating the patient, reviewing the medical record, andcounseling/coordinating care regarding his acute on chronic SDH and history of AC use. [facility] [id number] History and physical note* Dangelo Canada DO - 01/01/2024 5:23 PM EDT Images from the original note were not included. [facility] Trauma H&P 01/01/2024 5:28 PM Trauma Attending: Dr. Rothman Level of Initial Activation: Direct Admit Upgraded: No To:Trauma Team Mechanism of Injury: Fall Mechanical Mechanism of Arrival:Transfer from [place] Chief Complaint: Fall History of Traumatic Injury: [...] which demonstrated SDH and was transferred to [facility]. Patient pain level currently is 9/10. Did [...] experienced any of the following: fever, cough, wjeprtsnz-bt-ubboin, myalgias, loss of taste/smell, diarreha/GI symptoms? No If any of the screen questions are answered 'yes,' consider ordering a COVID test Past Medical History: Diagnosis Date Anemia Arthritis Bone infection (HCC) spine CAD (coronary artery disease) Chronic back pain Chronic kidney disease 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) 04/30/2023 COPD (chronic obstructive pulmonary disease) ([facility]) Depression DVT (deep venous thrombosis) ([facility]) Endocarditis History of blood transfusion Hyperlipidemia Hypertension 01/13/2011 Hyperthyroidism Pacemaker Paroxysmal A-fib (CMS/HCC) (HCC) Pneumonia Past Surgical History: Procedure Laterality Date CARDIAC CATHETERIZATION N/A 05/25/2023 Performed by Lance Hobbs MD at [facility] Cardiac Cath/EP Lab CARDIAC VALVE REPLACEMENT 2010 MVR/CCF HARDWARE REMOVAL Right 05/02/2016 SCREW IN RIGHT 4TH TOE INSERT / REPLACE / REMOVE PACEMAKER 10/10/2014 MITRAL VALVE REPLACEMENT 07/27/2014 bioprosthetic valve TRICUSPID VALVE SURGERY 07/27/2014 Repair Family History Problem Relation Name Age of Onset Atrial fibrillation Mother Other ([id number]) Mother pacemaker Heart disease Father Social History [...] of breath, swelling). 90 tablet 0 HYDROcodone-acetaminophen ([place]) 5-325 MG tablet TAKE 1 TABLET BY [...] intensity: Present INITIAL VITALS: Vitals: 01/01/24 1713 01/01/24 1714 BP: [...] and they are non-tender to palpation and GoodROM Extremities: Radial Pulses palpable Skin: Warm Neurologic: Alert and oriented to person, place, and time. Psych: Affect Normal CBC: No results found for: WBC, RBC, HGB, HCT, MCV, MCH, MCHC, RDW, PLT, MPV BMP: No results found for: NA, K, CL, CO2, BUN, CREATININE, CALCIUM, LABGLOM, GLUCOSE, GLU Urine Toxicology: No components found for: IAMMENTA, IBARBIT, IBENZO, ICOCAINE, IMARTHC, IOPIATES, IPHENCYC IV Access: 2x bilateral upper extremity [...] Hypothyroidism Hyperlipidemia History of drug abuse (CMS/HCC) ([facility]) Heart valve replaced by other means Depressive disorder Bacterial endocarditis Anxiety disorder Anemia Vitamin D deficiency Solitary pulmonary nodule Pleurisy Back problem senior living (current) use of anticoagulants 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) S/P mitral valve replacement Mitral valve insufficiency Prosthetic cardiac paravalvular leak, initial encounter Chronic diastolic heart failure ([facility]) Pulmonary hypertension ([facility]) CKD (chronic kidney disease) stage 2, GFR 60-89 ml/min Severe mitral regurgitation PLAN: PLAN: Neuro / Spine #SDH - Pain control: Tylenol savannah, Dilaudid IV PRN - Oxycodone PRN when cleared for PO by INSTRUMENTATION ENGINEERING TECHNICIAN - Neurosurgery consulted: recommendations as follows- - [...] answers consider palliative consult. 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 I personally discussed the review of systemsand interviewed the patient along with performing a physical examination. I reviewed the recent events, imaging, labs, vital signs. In addition, I discussed the patient's condition and treatment options with him/her when possible. I have also reviewed and agree with the past medical, family, and social history unless otherwise noted. All of the patient's questions were answered and family updatedwhen appropriate and possible. A complete review of systems was obtained and is negative except as stated in HPI and/or SubjectiveSection. -as per Dr. Canada's note -I evaluated patient as a Direct Admit to T2 ICU on 01/01/24 -Chief Complaint: headache, acute on chronic SDH -HPI as below, patient had a fall 2 weeks ago, presented to [place] with headache, CT revealed sizeable SDH with mild mass effect -patient HD stable, GCS 15, no neuro deficits -on warfarin for bioprosthetic mitral valve, reversed with PCC at [place] -Neurosurgery consulted, no acute intervention, though repeat head CT now and in AM tomorrow, serial q1 hour neuro checks -multi-modal analgesia as below -if initial repeat CT head stable may have diet -Geriatrics consult -PT/OT jonas Total Care Time throughout the day today was >= 75 minutes (including chart/data review/analysis, care coordination, and zofl-ho-mmbe encounter), and was spent discussing/counseling the patient/family [...] -Performing a medically appropriate exam and evaluation Adrian Rothman MD, FACS Trauma, Surgical Critical Care, & Acute Care Surgery Department of Surgery [facility] Pager: [phone] ~~~~~~~~~~~~~~~~~~~~~~~~~~~~~~~~~~~~~~~~~~~~~~~~~~~~~~~~~~~~~ This note may have been dictated using [employer] Medical Practice Edition 2.6 and/or [employer] Voice Recognition Feature. The document was proofread; however, unrecognized voice recognition quality improvement analyst errors may be present. [facility] Work Phone: [phone] History and physical note* Dangelo Belen Casarezy, DO - 01/01/2024 5:23 PM EDT Images from the original note were not included. [facility] Trauma H&P 01/01/2024 5:28 PM Trauma Attending: Dr. Rothman Level of Initial Activation: Direct Admit Upgraded: No To:Trauma Team Mechanism of Injury: Fall Mechanical Mechanism of Arrival:Transfer from [place] Chief Complaint: Fall History of Traumatic Injury: [...] which demonstrated SDH and was transferred to [facility]. Patient pain level currently is 9/10. Did [...] experienced any of the following: fever, cough, ctzjlofnu-cj-iklnun, myalgias, loss of taste/smell, diarreha/GI symptoms? No If any of the screen questions are answered 'yes,' consider ordering a COVID test Past Medical History: Diagnosis Date Anemia Arthritis Bone infection (HCC) spine CAD (coronary artery disease) Chronic back pain Chronic kidney disease 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) 04/30/2023 COPD (chronic obstructive pulmonary disease) ([facility]) Depression DVT (deep venous thrombosis) ([facility]) Endocarditis History of blood transfusion Hyperlipidemia Hypertension 01/13/2011 Hyperthyroidism Pacemaker Paroxysmal A-fib (CMS/HCC) ([facility]) Pneumonia Past Surgical History: Procedure Laterality Date CARDIAC CATHETERIZATION N/A 05/25/2023 Performed by Lance Hobbs MD at [facility] Cardiac Cath/EP Lab CARDIAC VALVE REPLACEMENT 2010 MVR/CCF HARDWARE REMOVAL Right 05/02/2016 SCREW IN RIGHT 4TH TOE INSERT / REPLACE / REMOVE PACEMAKER 10/10/2014 MITRAL VALVE REPLACEMENT 07/27/2014 bioprosthetic valve TRICUSPID VALVE SURGERY 07/27/2014 Repair Family History Problem Relation Name Age of Onset Atrial fibrillation Mother Other ([id number]) Mother pacemaker Heart disease Father Social History [...] of breath, swelling). 90 tablet 0 HYDROcodone-acetaminophen ([place]) 5-325 MG tablet TAKE 1 TABLET BY [...] and they are non-tender to palpation and GoodROM Extremities: Radial Pulses palpable Skin: Warm Neurologic: Alert and oriented to person, place, and time. Psych: Affect Normal CBC: No results found for: WBC, RBC, HGB, HCT, MCV, MCH, MCHC, RDW, PLT, MPV BMP: No results found for: NA, K, CL, CO2, BUN, CREATININE, CALCIUM, LABGLOM, GLUCOSE, GLU Urine Toxicology: No components found for: IAMMENTA, IBARBIT, IBENZO, ICOCAINE, IMARTHC, IOPIATES, IPHENCYC IV Access: 2x bilateral upper extremity Ivs NG/OG: No Angulo: No Radiology: No results found. 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 Associated attestation - Adrian Rothman MD - 01/02/2024 9:49 PM EDT ATTENDING [...] (HCC) Hypothyroidism Hyperlipidemia History of drug abuse ([facility]/HCC) ([facility]) Heart valve replaced by other means Depressive disorder Bacterial endocarditis Anxiety disorder Anemia Vitamin D deficiency Solitary pulmonary nodule Pleurisy Back problem senior living (current) use of anticoagulants 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 ([facility]) S/P mitral valve replacement Mitral valve insufficiency Prosthetic cardiac paravalvular leak, initial encounter Chronic diastolic heart failure ([facility]) Pulmonary hypertension ([facility]) CKD (chronic kidney disease) stage 2, GFR 60-89 ml/min Severe mitral regurgitation SDH (subdural hematoma) ([facility]) I personally supervised the resident physician in the evaluation and development of a treatment plan for this patient on the same day of service as above. I personally discussed the review of systemsand interviewed the patient along with performing a physical examination. I reviewed the recent events, imaging, labs, vital signs. In addition, I discussed the patient's condition and treatment options with him/her when possible. I have also reviewed and agree with the past medical, family, and social history unless otherwise noted. All of the patient's questions were answered and family updatedwhen appropriate and possible. A complete review of systems was obtained and is negative except as stated in HPI and/or SubjectiveSection. -as per Dr. Canada's note -I evaluated patient as a Direct Admit to T2 ICU on 01/01/24 -Chief Complaint: headache, acute on chronic SDH -HPI as below, patient had a fall 2 weeks ago, presented to [place] with headache, CT revealed sizeable SDH with mild mass effect -patient HD stable, GCS 15, no neuro deficits -on warfarin for bioprosthetic mitral valve, reversed with PCC at [place] -Neurosurgery consulted, no acute intervention, though repeat head CT now and in AM tomorrow, serial q1 hour neuro checks -multi-modal analgesia as below -if initial repeat CT head stable may have diet -Geriatrics consult -PT/OT jonas Total Care Time throughout the day today was >= 75 minutes (including chart/data review/analysis, care coordination, and qapx-mu-ktfq encounter), and was spent discussing/counseling the patient/family regarding the care plan for Brianne Walsl. I examined the patient independently. I reviewed [...] -Performing a medically appropriate exam and evaluation Adrian Rothman MD, FACS Trauma, Surgical Critical Care, & Acute Care Surgery Department of Surgery [facility] Pager: [phone] ~~~~~~~~~~~~~~~~~~~~~~~~~~~~~~~~~~~~~~~~~~~~~~~~~~~~~~~~~~~~~ This note may have been dictated using Dragon Medical Practice Edition 2.6 and/or [employer] Voice Recognition Feature. The document was proofread; however, unrecognized voice recognition quality improvement analyst errors may be present. documented in this [facility]06-07-2024 History of Present illness Narrative* Lance Hobbs MD - 10/23/2023 10:15 AM EDT CARDIOLOGY HEART FAILURE PROGRESS NOTE Today's Date: [...] PPM, who presents to the cardiology clinic forfollow up. I have had a chance to review some older records including an echocardiogram from January 2011 [facility] which showed LVEF 49%, and a well- functioning bioprosthetic MV with a mean gradientof 4 mmHg. He has been following with the group in [place]. He underwent a TTE in February 2023 [...] (HCC) 04/30/2023 COPD (chronic obstructive pulmonary disease) ([facility]) Depression DVT (deep venous thrombosis) ([facility]) Endocarditis History of blood transfusion Hyperlipidemia Hypertension 01/13/2011 Hyperthyroidism Pacemaker Paroxysmal A-fib (CMS/HCC) ([facility]) Pneumonia Past Surgical History Past Surgical History: Procedure Laterality Date CARDIAC CATHETERIZATION N/A 05/25/2023 Performed by Lance Hobbs MD at [facility] Cardiac Cath/EP Lab CARDIAC VALVE REPLACEMENT 2010 MVR/[facility] HARDWARE REMOVAL Right 05/02/2016 SCREW IN RIGHT 4TH TOE INSERT / REPLACE / REMOVE PACEMAKER 10/10/2014 MITRAL VALVE REPLACEMENT 07/27/2014 bioprosthetic valve TRICUSPID VALVE SURGERY 07/27/2014 Repair Family History Family History Problem Relation Name Age of Onset Atrial fibrillation Mother Other (38817) Mother pacemaker Heart disease Father Social History [...] by mouth daily. 90 tablet 0 HYDROcodone-acetaminophen (Lemoore) 5-325 MG tablet TAKE 1 TABLET BY [...] is alert. CBC: No results for input(s): WBC, HGB, HCT, PLT in the last 72 hours. BMP:No results for input(s): NA, K, CL, CO2, BUN, CREATININE, GLU, LABGLOM in the last 72 hours. No [...] 09/03/2023 Lipid Profile: No results found for: TRIG, HDL, LDLCALC, CHOL Hemoglobin A1C: No results found for: HGBA1C GRISELDA: No results found for: GRISELDA Ferritin: No results found for: FERRITIN HIV: No results found for: MFFBDRE4H6 EKG: See Report Echo: See Report EF: No components found for: LVEF, LVEFMODE IMPRESSIONS: Diagnosis Plan 1. Vegetative endocarditis of mitral valve 2. Presence of cardiac pacemaker 3. Chronic diastolic heart failure (HCC) 4. Pulmonary hypertension (HCC) 5. 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) 6. CKD (chronic kidney disease) stage 2, GFR 60-89 ml/min 7. Other hyperlipidemia Pulmonary hypertension/paravalvular leak now status post block: Repeat transthoracic echocardiogramshowed improvement of the mitral regurgitation, but persistent pulmonary hypertension that is likely precapillary in nature, but could be secondary to longstanding group 2 pulmonary hypertension. Hiscurrent medications include furosemide 40 mg/day, spironolactone 25 mg/day, and empagliflozin 10 mg/day. Today we will make his furosemide PRN for water retention. He will start walking regularly, and if his SOB improves, he does not need to return unless prescriptions are an issues, then just once per year. If his SOB remains problematic, then we will considerrepeat RHC next winter. Bioprosthetic mitral valve replacement: With a #29 Medtronic tissue valve in 2014 at [facility]. He is functioning well and his paravalvular leak plugging was successful. Paroxysmal atrial fibrillation: He is on warfarin and metoprolol 50 mg/day. Lance Hobbs MD, PhD Advanced Heart Failure Cardiology [facility]. [facility] [place] 10:31 AM 10/23/23 documented in this [facility]06-07-2024 Instructions* Patient Instructions* Lance Hobbs MD - 10/23/2023 10:15 AM EDT Durb great to see you again. I'm glad you are doing better. Take the furosemide medication only as needed. Return in 6 months. If you are feeling great, then you don't have to return. IF you still have bothersome shortness of breath, I would like to recheck the pressures. documented in this [facility]04-25-2024 History of Present illness Narrative* Gabi Leonardo APRN - FEATHERER - 09/10/2023 10:30 AM EDT Images from the original note were not included. [facility] [address] [facility] [address] Dept: [phone] Dept Visit type: Established : 1955 Reason [...] for PAF, no ASA. He will require group home SBE prophylaxis 3. Anemia. Recent EGD negative for bleeding, patient diagnosed with celiac. CBC stable- Hgb11.9. 4. PAF. On metoprolol, Coumadin Dr. Hobbs 2 weeks Subjective Mr Walls is a 68 yr old male known to Dr. Royal and Dr. Hobbs with 4 + perivalvular mitral regurgitation. He had a bioprosthetic mitral valve replacement in 2010 followed by infective endocarditiswhich led to redo bioprosthetic mitral valve replacement (#29 Medtronic tissue valve), TVr (#36 mm ring) in 2014; HFpEF, chronic kidney disease stage 2, hypertension, paroxysmal atrial fibrillation, s/p PPM. Pt underwent a MING on 05/29/23 which demonstrated severe (4+) paravalvular [...] by mouth daily. 90 tablet 0 HYDROcodone-acetaminophen (Lemoore) 5-325 MG tablet TAKE 1 TABLET BY [...] Hyperthyroidism Pacemaker Paroxysmal A-fib (CMS/HCC) (HCC) Pneumonia Social History Tobacco Use Smoking status: Every Day Packs/day: .5 Types: Cigarettes Start date: 04/30/1975 Passive exposure: Never Smokeless tobacco: Former Quit date: 04/30/2015 Substance Use Topics Alcohol use: Yes Past Surgical History: Procedure Laterality Date CARDIAC CATHETERIZATION N/A 05/25/2023 Performed by Lance Hobbs MD at [facility] Cardiac Cath/EP Lab CARDIAC VALVE REPLACEMENT 2010 MVR/[facility]F HARDWARE REMOVAL Right 05/02/2016 SCREW IN RIGHT 4TH TOE INSERT / REPLACE / REMOVE PACEMAKER 10/10/2014 MITRAL VALVE REPLACEMENT 07/27/2014 bioprosthetic valve TRICUSPID VALVE SURGERY 07/27/2014 Repair Family History Problem Relation Name Age of Onset Atrial fibrillation Mother Other (43660) Mother pacemaker Heart disease Father Objective Vitals: [...] tests: KIARA Sanchez CNP documented in this [place] [address]-18-2024 Telephone encounter Note* Telephone Encounter - KIARA Sanchez CNP - 09/03/2023 2:33 PM EDT Labs reviewed, see result message. mm [id number] Miscellaneous Notes* Telephone Encounter - KIARA Sanchez CNP - 09/03/2023 2:33 PM EDT Labs reviewed, see result message. mm documented in this [place] [address]-18-2024 History of Present illness Narrative* KIARA Sanchez CNP - 09/03/2023 9:30 AM EDT Images from the original note were not included. [facility] [address] [facility] [address] Dept: [phone] Dept Visit type: Established : 1955 Reason [...] for PAF, no ASA. He will require group home SBE prophylaxis 3. Anemia. Recent EGD negative for bleeding, patient diagnosed with celiac disease. Gluten free diet recommended Follow up in about 1 month (around 10/03/2023) for quitchen. Subjective Mr Walls is a 68 yr old male known to Dr. Royal and Dr. Hobbs with 4 + perivalvular mitral regurgitation. He had a bioprosthetic mitral valve replacement in 2010 followed by infective endocarditiswhich led to redo bioprosthetic mitral valve replacement (#29 Medtronic tissue valve), TVr (#36 mm ring) in 2014; HFpEF, chronic kidney disease stage 2, hypertension, paroxysmal atrial fibrillation, s/p PPM. Pt underwent a MING on 05/29/23 which demonstrated severe (4+) paravalvular [...] 2 weeks ago. He developed progressive fatigue andthen edema and weight gain. His weight today is up 9 lbs. He took 80 mg Lasix yesterday and 80 mg this morning. His dyspnea is improved but not gone. He denies any chest pain or bleeding. He has beencomplaint with his medications. No Known Allergies Outpatient [...] by mouth daily. 90 tablet 0 HYDROcodone-acetaminophen (Lemoore) 5-325 MG tablet TAKE 1 TABLET BY [...] History: Diagnosis Date Anemia Arthritis Bone infection ([facility]) spine CAD (coronary artery disease) Chronic back pain Chronic kidney disease 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) 04/30/2023 COPD (chronic obstructive pulmonary disease) ([facility]) Depression DVT (deep venous thrombosis) ([facility]) Endocarditis History of blood transfusion Hyperlipidemia Hypertension 01/13/2011 Hyperthyroidism Pacemaker Paroxysmal A-fib (CMS/HCC) ([facility]) Pneumonia Social History Tobacco Use Smoking status: Every Day Packs/day: .5 Types: Cigarettes Start date: 04/30/1975 Passive exposure: Never Smokeless tobacco: Former Quit date: 04/30/2015 Substance Use Topics Alcohol use: Yes Past Surgical History: Procedure Laterality Date CARDIAC CATHETERIZATION N/A 05/25/2023 Performed by Lance Hobbs MD at [facility] Cardiac Cath/EP Lab CARDIAC VALVE REPLACEMENT 2010 MVR/[facility]F HARDWARE REMOVAL Right 05/02/2016 SCREW IN RIGHT 4TH TOE INSERT / REPLACE / REMOVE PACEMAKER 10/10/2014 MITRAL VALVE REPLACEMENT 07/27/2014 bioprosthetic valve TRICUSPID VALVE SURGERY 07/27/2014 Repair Family History Problem Relation Name Age of Onset Atrial fibrillation Mother Other (14408) Mother pacemaker Heart disease Father Objective Vitals: [...] tests: KIARA Sanchez CNP documented in this [facility]04-08-2024 Evaluation + Plan note Extracted from: Title:Clinical Document Author:KEL IRBY Date:08/24/23 BELLE VERNON ADMISSION HISTORY AN D PHYSICIAL CHIEF COMPLAINT: HISTORY OF PRESENT ILLNESS: REVIEW OF SYSTEMS: ACTIVE PROBLEMS: (3) Cardiac pacemaker in situ (1595710209) Hypertension (3660391333) Sleep apnea (390885154) MEDICATIONS: Active Inpt Meds: None Active PRN Meds: None One Time Meds: (Completed) glycopyrrolate (glycopyrrolate (ANES)) IV Push, Once, Stop: 08/24/23 8:28:00 EDT Active IV Meds: Lactated Ringers Infusion 1,000 mL (LR 1,000 mL) Start: 08/24/23 7:46:00 EDT, Rate: 50 mL/hr, 08/24/23 7:46:00 EDT ALLERGIES: (1) NKA FAMILY HISTORY: SOCIAL HISTORY: PHYSICAL EXAM: VITALS: SyagrxUirxECItrnzAGKsS9EME6BvkjNo(kg) 08/23 07:5536.5--708292YQ44/08 68.2 24 Hr Tmax: 36.5 at 08/23 [...] changes to the H&P unless noted below. [facility] 04-08-2024 Hospital Discharge instructions Patient Education 08/24/2023 08:51:37 Esophagogastroduodenoscopy, Care After (02695) Esophagogastroduodenoscopy, Care After Refer to this sheet [...] 04/20/2013 Document Revised: 10/09/2016 Document Reviewed: 03/27/2016 [employer] Interactive Patient Education 2019 [employer]. 08/24/2023 08:51:12 Monitored Anesthesia Care, Care After [...] before eating solid foods. General instructions Take ssel-qcp-wsebxez and prescription medicines only as told by [...] 08/24/2016 Document Revised: 08/02/2018 Document Reviewed: 08/24/2016 [employer] Patient Education 2020 [employer]. 08/24/2023 08:51:02 Gluten-Free Diet for Celiac Disease, [...] have questions, talk with your diet and paint specialist (registered dietitian) or your health care provider. [...] how a food is processed, ask the commercial real estate sales manager. What taylor words help to identify gluten? [...] popcorn, and hot cereals made from cornmeal. [place], rice, wild rice. Some rice noodles or curry noodles. Arrowroot starch, corn bran,corn flour, corn germ, cornmeal, corn starch, potato flour, potato starch flour, and rice bran. Plain, brown, and sweet rice flours. Rice cook islander, soy flour, and tapioca starch. Vegetables All [...] lunch meats. Bread- containing products, such as Colombian steak, croquettes, meatballs, and meatloaf. Most tuna [...] have questions, talk with your diet and paint specialist (registered dietitian) or your health care provider. [...] 05/04/2006 Document Revised: 04/16/2018 Document Reviewed: 02/16/2017 [employer] Patient Education 2020 [employer]. 08/24/2023 08:50:57 Celiac Disease Celiac Disease Celiac [...] 05/04/2006 Document Revised: 09/22/2018 Document Reviewed: 09/22/2018 [employer] Patient Education 2020 [employer]. Follow Up Care 08/17/2023 09:00:22 With:KEL IRBY MD Address: [address] [address] [phone] When: Unknown Comments:CALL DR IRBY WITH ANY QUESTIONS OR CONCERNS GO TO THE EMERGENCY ROOM WITH ANY URGENT CONCERNS. YOUR CELIAC TITER WAS POSITIVE. BIOPSIES WERE TAKEN TODAY. THE OFFICE SHOULD CALL YOU WITH THOSE RESULTS BY THE END OF THE WEEK. CALL THE OFFICE IF YOU DO NOT HEAR FROM DR IRBY'S OFFICE. [facility] [place] 04-08-2024 Note Discharge Instructions Thank you for allowing [facility] to assist you with your healthcare needs. The following is importantdischarge information regarding your hospital visit. Your Care Team DR KEL IRBY Your Diagnosis EGD WITH BIOPSIES. What to do next Follow Up Appointments Follow Up with KEL IRBY MD When Why: CALL DR IRBY WITH ANY QUESTIONS OR CONCERNS GO TO THE EMERGENCY ROOM WITH ANY URGENT CONCERNS. YOUR CELIAC TITER WAS POSITIVE. BIOPSIES WERE TAKEN TODAY. THE OFFICE SHOULD CALL YOU WITH THOSE RESULTS BY THE END OF THE WEEK. CALL THE OFFICE IF YOU DO NOT HEAR FROM DR IRBY'S OFFICE. Where: [address] [place] [address]- [phone] The Following Activity and Diet Have Been [...] Much When Instructions Last Dose Unchanged acetaminophen-hydrocodone (Lemoore 325- 5 mg oraltablet) 1 tab(s) by [...] 04/20/2013 Document Revised: 10/09/2016 Document Reviewed: 03/27/2016 [employer] Interactive Patient Education 2019 [employer]. Monitored Anesthesia Care, Care After These instructions [...] before eating solid foods. General instructions Take jyey-xcv-nuhcqzz and prescription medicines only as told by [...] 08/24/2016 Document Revised: 08/02/2018 Document Reviewed: 08/24/2016 [employer] Patient Education 2020 [employer] Gluten-Free Diet for Celiac Disease, Adult [...] have questions, talk with your diet and paint specialist (registered dietitian) or your health care provider. [...] how a food is processed, ask the commercial real estate sales manager. What taylor words help to identify gluten? [...] are safe to eat. In the [place] [employer] are also required to list common food allergens, including wheat, on their labels. Recommended foods Grains Amaranth, curry flours, 100% buckwheat flour, corn, millet, nut flours or nut meals, GF oats, quinoa, rice, sorghum, teff, rice wafers, pure cornmeal tortillas, popcorn, and hot cereals made from cornmeal. [place], rice, wild rice. Some rice noodles or curry noodles. Arrowroot starch, corn bran,corn flour, corn germ, cornmeal, corn starch, potato flour, potato starch flour, and rice bran. Plain, brown, and sweet rice flours. Rice cook islander, soy flour, and tapioca starch. Vegetables All [...] lunch meats. Bread- containing products, such as Colombian steak, croquettes, meatballs, and meatloaf. Most tuna [...] have questions, talk with your diet and paint specialist (registered dietitian) or your health care provider. [...] 05/04/2006 Document Revised: 04/16/2018 Document Reviewed: 02/16/2017 [employer] Patient Education 2020 [employer] Celiac Disease Celiac disease is an [...] 05/04/2006 Document Revised: 09/22/2018 Document Reviewed: 09/22/2018 Elsevier Patient Education 2020 [employer] Additional Information VACCINATE! IT SAVES LIVES! Members of the community who have not yet received the COVID-19 vaccine and would like to receive it can visit one of [facility] vaccine clinics. There are many vaccine clinic locations within the [facility]. For locations and available times, please visit [email or web address] It is important to note that some COVID mobile vaccine clinics are held outdoors and may be canceled in rainy or stormy conditions. To learn more about pediatric vaccinations (ages 5-11), we invite you to visit the [facility] webpage. [email or web address] learn more about the COVID-19 vaccine, we invite you to visit the CDC website for a list of frequently asked questions.https://www.cdc.gov/coronavirus/2019-ncov/vaccines/faq.html [facility] Patient Portal Access Instructions: Stay connected with your healthcare team and access your personal medical information anytime with the [facility] Patient Portal. Please follow the directions below to create your [employer] account: 1.Access the email account you provided upon registration to the hospital/physician office.2.Look for an invitation email from [facility].3.Open the email and access the invitation link: AcceptInvitation to [employer].4.Fill in the required howard to create your account. To access your account, visit [email or web address]. Click the blue button labeled Access Patient [...] who you will allowto register on the [facility] One[facility] Patient Portal for access to your information. You can also access the [facility] on the [facility] Anywhere winifred. Simply click on Patient Portal and then log into your account. If you would like to receive a full copy of your medical records, please contact the [facility] Medical Records Department by calling [phone], Thursday through Thursday between 8 a.m. and [...] Call your local pharmacy or go to [email or web address] to find one close to you.3.Make use of household items: Use cat litter or old coffee grounds to dispose medications if other options arenot available. Mix your drugs with these household products, seal them in an airtight container andthrow it into the garbage. Call [facility]: [phone] to be sure your drugs can be [...] Signatures Patient Education Materials Esophagogastroduodenoscopy, Care After (82588) Monitored Anesthesia Care, Care After Gluten-Free Diet for Celiac Disease, Adult Celiac Disease Medication Leaflets My discharge plan and instructions have been reviewed and explained to me and I,BRIANNE WALLS understand my current condition and have read and understand these discharge instructions. I have received a written copy of the plan/instructions. If I have questions, I am aware that I should contactmy doctor. 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 Signature: Date/Time: Relationship to Patient: Witness Name/Signature: Date/Time: [facility]04-08-2024 Note BELLE VERNON ADMISSION HISTORY AND PHYSICIAL CHIEF COMPLAINT: HISTORY OF PRESENT ILLNESS: REVIEW OF SYSTEMS: ACTIVE PROBLEMS: (3) Cardiac pacemaker in situ ([id number]) Hypertension (7910239245) Sleep apnea (515192818) MEDICATIONS: Active Inpt Meds: None Active PRN Meds: None One Time Meds: (Completed) glycopyrrolate (glycopyrrolate (ANES)) IV Push, Once, Stop: 08/24/23 8:28:00 EDT Active IV Meds: Lactated Ringers Infusion 1,000 mL (LR 1,000 mL) Start: 08/24/23 7:46:00 EDT, Rate: 50 mL/hr, 08/24/23 7:46:00 EDT ALLERGIES: (1) NKA FAMILY HISTORY: SOCIAL HISTORY: PHYSICAL EXAM: VITALS: ZozrlpLsxqTQGrtckOWKsJ6XIM8OnvcWt(kg) 08/23 07:5536.5--575524ST87/08 68.2 24 Hr Tmax: 36.5 at 08/23 [...] H&P unless noted below. Digitally Signed by KEL IRBY MD on 08/24/2023 08:30 AM [facility]04-08-2024 Anesthesiology Consult note Patient: BRIANNE WALLS Age: 68 years Sex: Male : 1955 Associated Diagnoses: None Author: ISATU KAPLAN APRN-SALICYLIC ACID BLENDER Preoperative Information Anesthesia history Patient's history: negative. [...] mg, 1 tab(s), Oral, Daily, 0 Refill(s) Lemoore 325- 5 mg oral tablet: 1 tab(s), [...] Cardiac pacemaker in situ / SNOMED CT 5517881382 / Confirmed Hypertension / SNOMED CT 6184825338 / Confirmed, Active Problems (2) Cardiac pacemaker in situ Hypertension Histories Past Medical History: No active or resolved past medical history items have been selected or recorded. Family History: Heart disease Father Procedure history: Repair of umbilical hernia (67916979). Amputation of toe and metatarsal (8493501219). Bone reconstruction (752203282). Comments: 08/26/2017 11:31 CHAZ Perry right heel Wires ([id number]). Comments: 08/26/2017 11:32 CHAZ Perry bilateral jaw wires Rotator cuff repair ([id number]). Social History Social & Psychosocial Habits Alcohol [...] qualifying data available . Assessment and Plan [place] [employer] Anesthesiologists (ASA) physical status classification: Class III. Anesthetic Preoperative Plan Anesthetic technique: MAC. Postoperative pain management: Per surgeon. Risks discussed: nausea, vomiting, sore throat, dental injury, hypotension, allergic reaction, serious complications. Informed consent: signed by patient. Digitally Signed by ISATU KAPLAN on 08/24/2023 07:41 AM [facility]03-21-2024 History of Present illness Narrative * Gabi Leonardo, KIARA Shaikh CNP - 08/06/2023 9:00 AM EDT Images from the original note were not included. [facility] [address] [facility] [address] Dept: [phone] Dept Visit type: Established : 1955 Reason for Visit: Hospital Follow-up (S/p vascular plug bioprosthetic perivalvular MR, hospital follow up) Assessment and Plan 1. S/P mitral valve repair - [facility] Cardiac/Pulmonary Rehab - Doing well post procedure, symptomatically improved. Continue warfarin (primary indication is PAF). Check echo in one month 2. Severe mitral regurgitation - ECG 12 lead - CLINIC PERFORMED - [facility] Cardiac/Pulmonary Rehab - MR 4+ to [...] atrial fibrillation, s/p PPM. Pt underwent a MING on 05/29/23 which demonstrated severe (4+) paravalvular [...] by mouth daily. 90 tablet 0 HYDROcodone-acetaminophen (Lemoore) 5-325 MG tablet TAKE 1 TABLET BY [...] History: Diagnosis Date Anemia Arthritis Bone infection ([facility]) spine CAD (coronary artery disease) Chronic back pain Chronic kidney disease 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 ([facility]) 04/30/2023 COPD (chronic obstructive pulmonary disease) ([facility]) Depression DVT (deep venous thrombosis) ([facility]) Endocarditis History of blood transfusion Hyperlipidemia Hypertension 01/13/2011 Hyperthyroidism Pacemaker Paroxysmal A-fib (CMS/HCC) ([facility]) Pneumonia Social History Tobacco Use Smoking status: Every Day Packs/day: .5 Types: Cigarettes Start date: 04/30/1975 Passive exposure: Never Smokeless tobacco: Former Quit date: 04/30/2015 Substance Use Topics Alcohol use: Yes Past Surgical History: Procedure Laterality Date CARDIAC CATHETERIZATION N/A 05/25/2023 Performed by Lance Hobbs MD at [facility] Cardiac Cath/EP Lab CARDIAC VALVE REPLACEMENT 2010 MVR/CCF HARDWARE REMOVAL Right 05/02/2016 SCREW IN RIGHT 4TH TOE INSERT / REPLACE / REMOVE PACEMAKER 10/10/2014 MITRAL VALVE REPLACEMENT 07/27/2014 bioprosthetic valve TRICUSPID VALVE SURGERY 07/27/2014 Repair Family History Problem Relation Name Age of Onset Atrial fibrillation Mother Other (57843) Mother pacemaker Heart disease Father Objective Vitals: [...] tests: KIARA Sanchez CNP documented in this [facility]03-20-2024 Telephone encounter Note* Telephone Encounter - Gaby Soni - 08/05/2023 2:45 PM EDT Need an order for 1 month echo-s/p MVR on 07/29/[address] [id number] Miscellaneous Notes* Telephone Encounter - Gaby Soni - 08/05/2023 2:45 PM EDT Need an order for 1 month echo-s/p MVR on 07/29/23 documented in this [facility]03-14-2024 Consult note* Lois Strauss - 07/30/2023 9:36 AM EDTAssociated Order(s): IP CONSULT TO CARDIAC REHAB Received referral and reviewed chart. Phase II Cardiac Rehab Referral discussed with Brianne Walls. Patient prefers cardiac rehab at [facility] [place]. Given information on cardiac rehab atpreferred location. [facility] [id number] Consult note* Lois Strauss - 07/30/2023 9:36 AM EDT Associated Order(s): IP CONSULT TO CARDIAC REHAB Received referral and reviewed chart. Phase II Cardiac Rehab Referral discussed with Brianne Walls. Patient prefers cardiac rehab at [facility] [place]. Given information on cardiac rehab atpreferred location. documented in this [facility]03-14-2024 Hospital Discharge instructions* Discharge Instructions* Gabi Leonardo APRN - FEATHERER - 07/30/2023 9:30 AM EDT - INR Check with PCP on Thursday. Remain on aspirin until INR above 2.0 Please call the Heart [facility] with any questions: [phone] -You will have have the following follow [...] required unless otherwise specified. documented in this [facility]03-13-2024 Plan of care note* Care Plan - [...] oxygenated and ventilation is improved Outcome: Progressing [facility] [id number] Miscellaneous Notes* Care Plan - Nima Hong [...] improved Outcome: Progressing * Op Note - Shaw Nicholas MD - 07/29/2023 7:34 AM EDT Perivalvlular Leak Plug of a Surgical Mitral Valve Procedure: 1. Perivalvlular Leak Plug of a Surgical Mitral Valve 2. Right Heart Cath 3. Transesophageal Echocardiogram Preoperative Diagnosis: Severe Mitral Regurgitation with Heart Failure, from a bioprosthetic perivalvular leak Postoperative Diagnosis: Same Anesthesia: General Anesthesia Procedural Physicians: Shaw Nicholas MD, Jesús Lees MD. Structural Offender Job Retention Specialist: Hemal Henry MD History of Present Illness: [...] was placed under general anesthesia. A pre-procedure MING was performed confirming severe perivalvular MR, and [...] and mid location. This was confirmed by MING. The baylis needle was removed. An 0.32 [...] care of your patient while hospitalized at [facility]. I will continue to follow along while hospitalized. Please do not hesitate to call with any questions. * Perioperative Nursing Note - Dada Hanley RN - 07/29/2023 6:34 AM EDT Notified OR control desk that patient has cardiac pacemaker documented in this [facility]03-13-2024 Note* Op Note - Shaw Nicholas MD - 07/29/2023 7:34 AM EDT Perivalvlular Leak Plug of a Surgical Mitral Valve Procedure: 1. Perivalvlular Leak Plug of a Surgical Mitral Valve 2. Right Heart Cath 3. Transesophageal Echocardiogram Preoperative Diagnosis: Severe Mitral Regurgitation with Heart Failure, from a bioprosthetic perivalvular leak Postoperative Diagnosis: Same Anesthesia: General Anesthesia Procedural Physicians: Shaw Nicholas MD, Jesús Lees MD. Structural Offender Job Retention Specialist: Hemal Henry MD History of Present Illness: [...] was placed under general anesthesia. A pre-procedure MING was performed confirming severe perivalvular MR, and [...] and mid location. This was confirmed by MING. The baylis needle was removed. An 0.32 [...] care of your patient while hospitalized at [facility]. I will continue to follow along while hospitalized. Please do not hesitate to call with any questions. [employer] Phone: [phone] 480-942703-13-2024 Note* Op Note - Shaw Nicholas MD - 07/29/2023 7:34 AM EDT Perivalvlular Leak Plug of a Surgical Mitral Valve Procedure: 1. Perivalvlular Leak Plug of a Surgical Mitral Valve 2. Right Heart Cath 3. Transesophageal Echocardiogram Preoperative Diagnosis: Severe Mitral Regurgitation with Heart Failure, from a bioprosthetic perivalvular leak Postoperative Diagnosis: Same Anesthesia: General Anesthesia Procedural Physicians: Shaw Nicholas MD, Jesús Lees MD. Structural Offender Job Retention Specialist: Hemal Henry MD History of Present Illness: [...] was placed under general anesthesia. A pre-procedure MING was performed confirming severe perivalvular MR, and [...] and mid location. This was confirmed by MING. The baylis needle was removed. An 0.32 [...] care of your patient while hospitalized at [facility]. I will continue to follow along while hospitalized. Please do not hesitate to call with any questions. [employer] Phone: [phone] Note* Perioperative Nursing Note - Dada Hanley RN - 07/29/2023 6:34 AM EDT Notified OR control desk that patient has cardiac pacemaker [employer]03-13-2024 Note* Perioperative Nursing Note - Dada Hanley RN - 07/29/2023 6:34 AM EDT Notified OR control desk that patient has cardiac pacemaker [facility] [id number] Evaluation note* Diagnosis Onset Date Resolution Status Anemia acute Paroxysmal atrial fibrillation acute Cardiac pacemaker in situ [facility] Essential (primary) hypertension chronic History of mitral valve repl acement with bioprosthetic valve July 27, 2014 chronic History of tricuspid valve repair July, chronic Pure hypercholesterolemia [facility] Work Phone: [phone]) 364-994402-29-2024 History of Present illness Narrative* Gabi Leonardo APRN - MARTIN - 07/16/2023 8:00 AM EST Images from the original note were not included. [facility] [address] [facility] [address] Dept: [phone] Dept Visit type: Established : 1955 Reason for Visit: No chief complaint on file. Assessment and Plan 1. Mitral valve insufficiency, unspecified etiology. Patient has perivalvular MR. Plan to proceed with a valvular plug. CT obtained. Patient understands procedure and agrees to proceed. Pre op labs today, questions answered. Intra op MING arranged 2. S/P mitral valve replacement - [...] tissue valve), TVr (#36 mm ring) in 2015; HFpEF, chronic kidney disease stage 2, hypertension, paroxysmal atrial fibrillation, s/p PPM. Pt underwent a MING on 05/29/23 which demonstrated severe (4+) paravalvular [...] by mouth daily. 90 tablet 0 HYDROcodone-acetaminophen (Lemoore) 5-325 MG tablet TAKE 1 TABLET BY [...] History: Diagnosis Date Anemia Arthritis Bone infection ([facility]) spine CAD (coronary artery disease) Chronic back pain Chronic kidney disease 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) 04/30/2023 COPD (chronic obstructive pulmonary disease) ([facility]) Depression DVT (deep venous thrombosis) ([facility]) Endocarditis History of blood transfusion Hyperlipidemia Hypertension 01/13/2011 Hyperthyroidism Pacemaker Paroxysmal A-fib (CMS/HCC) ([facility]) Pneumonia Social History Tobacco Use Smoking status: Every Day Packs/day: .5 Types: Cigarettes Start date: 04/30/1975 Passive exposure: Never Smokeless tobacco: Former Quit date: 04/30/2015 Substance Use Topics Alcohol use: Yes Past Surgical History: Procedure Laterality Date CARDIAC CATHETERIZATION N/A 05/25/2023 Performed by Lance Hobbs MD at [facility] Cardiac Cath/EP Lab CARDIAC VALVE REPLACEMENT 2010 MVR/CCF HARDWARE REMOVAL Right 05/02/2016 SCREW IN RIGHT 4TH TOE INSERT / REPLACE / REMOVE PACEMAKER 10/10/2014 MITRAL VALVE REPLACEMENT 07/27/2014 bioprosthetic valve TRICUSPID VALVE SURGERY 07/27/2014 Repair Family History Problem Relation Name Age of Onset Atrial fibrillation Mother Other ([id number]) Mother pacemaker Heart disease Father Objective Vitals: [...] Reviewed and Summarized No results found for: EFBP, PLVEF, LVEFPHYS, LVEF2D, EF Review of tests/labs done/ordered within my specialty: EKG in office: AV paced Review of tests/labs done/ordered outside my specialty: Independent interpretation of tests: KIARA Sanchez CNP documented in this [facility]02-29-2024 History of Present illness Narrative* KIARA Sanchez CNP - 07/16/2023 8:00 AM EST Images from the original note were not included. [facility] [address] [facility] [address] Dept: [phone] Dept Visit type: Established : 1955 Reason for Visit: No chief complaint on file. Assessment and Plan 1. Mitral valve insufficiency, unspecified etiology. Patient has perivalvular MR. Plan to proceed with a valvular plug. CT obtained. Patient understands procedure and agrees to proceed. Pre op labs today, questions answered. Intra op MING arranged 2. S/P mitral valve replacement - [...] atrial fibrillation, s/p PPM. Pt underwent a MING on 05/29/23 which demonstrated severe (4+) paravalvular [...] by mouth daily. 90 tablet 0 HYDROcodone-acetaminophen (Lemoore) 5-325 MG tablet TAKE 1 TABLET BY [...] History: Diagnosis Date Anemia Arthritis Bone infection ([facility]) spine CAD (coronary artery disease) Chronic back pain Chronic kidney disease 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) 04/30/2023 COPD (chronic obstructive pulmonary disease) ([facility]) Depression DVT (deep venous thrombosis) ([facility]) Endocarditis History of blood transfusion Hyperlipidemia Hypertension 01/13/2011 Hyperthyroidism Pacemaker Paroxysmal A-fib ([facility]/HCC) ([facility]) Pneumonia Social History Tobacco Use Smoking status: Every Day Packs/day: .5 Types: Cigarettes Start date: 04/30/1975 Passive exposure: Never Smokeless tobacco: Former Quit date: 04/30/2015 Substance Use Topics Alcohol use: Yes Past Surgical History: Procedure Laterality Date CARDIAC CATHETERIZATION N/A 05/25/2023 Performed by Lance Hobbs MD at [facility] Cardiac Cath/EP Lab CARDIAC VALVE REPLACEMENT 2010 MVR/CCF HARDWARE REMOVAL Right 05/02/2016 SCREW IN RIGHT 4TH TOE INSERT / REPLACE / REMOVE PACEMAKER 10/10/2014 MITRAL VALVE REPLACEMENT 07/27/2014 bioprosthetic valve TRICUSPID VALVE SURGERY 07/27/2014 Repair Family History Problem Relation Name Age of Onset Atrial fibrillation Mother Other ([id number]) Mother pacemaker Heart disease Father Objective Vitals: [...] Reviewed and Summarized No results found for: EFBP, PLVEF, LVEFPHYS, LVEF2D, EF Review of tests/labs done/ordered within my specialty: EKG in office: AV paced Review of tests/labs done/ordered outside my specialty: Independent interpretation of tests: KIARA Sanchez CNP documented in this [facility]01-23-2024 History of Present illness Narrative* Bronson Dove DO - 06/09/2023 1:00 PM EST Images from the original note were not included. [facility]: Cardiothoracic Surgery Multidisciplinary Heart [facility]ve Clinic Date: 06/09/23 Patient:Brianne Walls 1955 68 y.o. male [id number] Subjective: HPI: Brianne Walls 68 y.o. referred [...] pulmonary vascular remodeling. He then underwent a MING on 05/29/23 which demonstrated severe (4+) paravalvular mitral valve regurgitation that originates mid posterior with an eccentrically directed jet that wraps around the entirity of the left atrium. Medical History Past Medical History: Diagnosis Date Anemia Arthritis Bone infection ([facility]) spine CAD (coronary artery disease) Chronic back pain Chronic kidney disease 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 ([facility]) 04/30/2023 COPD (chronic obstructive pulmonary disease) ([facility]) Depression DVT (deep venous thrombosis) ([facility]) Endocarditis History of blood transfusion Hyperlipidemia Hypertension 01/13/2011 Hyperthyroidism Pacemaker Paroxysmal A-fib (CMS/HCC) ([facility]) Pneumonia Blood thinner - Warfarin Transesophageal Echocardiogram [...] cardiac index. Recommendations 1. Will proceed with MING to better assess mitral valve 2. Restart furosemide and continue spironolactone 3. Start empagliflozin 10 mg per day. 4. Consider [id number] mitral valve replacement if indicated and after [...] medical history of Anemia, Arthritis, Bone infection ([facility]), CAD (coronary artery disease), Chronic back pain, Chronic kidney disease, 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 ([facility]) (04/30/2023), COPD (chronic obstructive pulmonary disease) ([facility]), Depression, DVT (deep venous thrombosis) ([facility]), Endocarditis, History of blood transfusion, Hyperlipidemia, Hypertension (01/13/2011), Hyperthyroidism, Pacemaker, Paroxysmal A-fib ([facility]) ([facility]), and Pneumonia. He has no past medical history of Asthma, Blood circulation, collateral, Cancer ([facility]/HCC) ([facility]), Cerebral artery occlusion with cerebral infarction ([facility]), Diabetes mellitus ([facility]), Disease of blood and blood forming organ, GERD (gastroesophageal reflux disease), Hemodialysis patient ([facility]) ([facility]),Liver disease, Movement disorder, Neuromuscular disorder ([facility]), Other disorders of kidney and ureter in diseases classified elsewhere, or Seizures ([facility]). Past Surgical History: has a past surgical [...] Crack cocaine. Family History: family history includes [id number] in his mother; Atrial fibrillation in his [...] in the evening. Yes Historical Provider, HYDROcodone-acetaminophen (Lemoore) 5-325 MG tablet TAKE 1 TABLET BY [...] (25 mg) by mouth daily. 04/30/23 04/29/24 Inna Hobbs MD tamsulosin (Flomax) 0.4 MG 24 hr capsule Take 0.4 mg by mouth in the morning and 0.4 mg in the evening. Yes Historical Provider, tiZANidine (Zanaflex) 4 MG tablet TAKE 1 TABLET ORAL TWICE A DAY FOR 30 DAYS 06/03/22 Yes HistoricalProvider, traZODone (Desyrel) 100 MG tablet TAKE 3 [...] They recently have increasing SOB with a MING demonstration 4+ perivalvular leak. This is likely [...] echocardiography,and other diagnostic images. documented in this [facility]01-23-2024 History of Present illness Narrative* Shaw Nicholas MD - 06/09/2023 12:30 PM EST Images from the original note were not included. [facility] [address] [facility] [address] Dept: [phone] Dept Visit type: Established : 1955 Reason [...] mitral stenosis of the bioprosthetic valve, but MING has now shown severe perivalvular leak (read [...] and 300 mg in the evening. HYDROcodone-acetaminophen (Lemoore) 5-325 MG tablet TAKE 1 TABLET BY [...] History: Diagnosis Date Anemia Arthritis Bone infection ([facility]) spine CAD (coronary artery disease) Chronic back pain Chronic kidney disease 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 ([facility]) 04/30/2023 COPD (chronic obstructive pulmonary disease) ([facility]) Depression DVT (deep venous thrombosis) ([facility]) Endocarditis History of blood transfusion Hyperlipidemia Hypertension 01/13/2011 Hyperthyroidism Pacemaker Paroxysmal A-fib (CMS/HCC) ([facility]) Pneumonia Social History Tobacco Use Smoking status: Every Day Packs/day: .5 Types: Cigarettes Start date: 04/30/1975 Passive exposure: Never Smokeless tobacco: Former Quit date: 04/30/2015 Substance Use Topics Alcohol use: Yes Past Surgical History: Procedure Laterality Date CARDIAC CATHETERIZATION N/A 05/25/2023 Performed by Lance Hobbs MD at [facility] Cardiac Cath/EP Lab HARDWARE REMOVAL Right 05/02/2016 SCREW IN RIGHT 4TH TOE INSERT / REPLACE / REMOVE PACEMAKER 10/10/2014 MITRAL VALVE REPLACEMENT 07/27/2014 bioprosthetic valve TRICUSPID VALVE SURGERY 07/27/2014 Repair Family History Problem Relation Name Age of Onset Atrial fibrillation Mother Other ([id number]) Mother pacemaker Heart disease Father Objective Vitals: [...] Reviewed and Summarized No results found for: EFBP, PLVEF, LVEFPHYS, LVEF2D, EF Review of tests/labs done/ordered within my specialty: EKG in office: Review of tests/labs done/ordered outside my specialty: Independent interpretation of tests: I personally reviewed the images from Brianne Walls's most recent TTE and MING in the office today,to help with medical decision making. Jen Vora RN documented in this [facility]01-12-2024 Hospital Discharge instructions* Discharge Instructions* Nancy Rolle RN - 05/29/2023 3:21 PM EST Post MING Discharge Instructions Continue medications as instructed by [...] changes Follow up appointment documented in this [facility]01-10-2024 Telephone encounter Note* Telephone Encounter - Stephanie Green PA-C - 05/27/2023 1:43 PM EST Prep for proc complete. [facility] Work Phone: [phone]) 208-320201-10-2024 Miscellaneous Notes* Telephone Encounter - Stephanie Green PA-C - 05/27/2023 1:43 PM EST Prep for proc complete. * Telephone Encounter - Estefania Clemente - 05/27/2023 1:37 PM EST PT returned call & I gave him the instructions - pt had no questions * Telephone Encounter - Miya Harris RN - 05/27/2023 1:16 PM EST Pt had RHC on 05/25/23, which stated: Recommendations 1. Will proceed with MING to better assess mitral valve 2. Restart furosemide and continue spironolactone 3. Start empagliflozin 10 mg per day. 4. Consider [id number]-xc-qroym mitral valve replacement if indicated and after discussion with valve team. You are scheduled for a MING with Dr Stanley on 05/29/23 at 1:00pm. - Please arrive to [address] [place] [address], 90 minutes prior to your procedure time. - You may use combined rail operator or park in the parking deck attached to the [address] [place] [address] building. - Check into Prep and Recovery area on the ground floor Prep: - nothing to eat/drink 8 hours prior to the procedure, except you may have sips of clear liquids upto 2 hours prior to your procedure - bring a list of your medications (including the doses) - bring a designated subway train driver as you will be unable to [...] following medications that morning: lasix, spironolactone - MING: labs ordered only at the discretion of performing physician: none per Dr Stanley - ECG (within 30 days): 04/30/23 - H&P (within 30 days): 04/30/23 - please call our office with any questions! [phone] *Tried to call pt to review prep/instructions- NO ANSWER. Left a brief message asking pt to call back. * Telephone Encounter - Estefania Clemente - 05/27/2023 12:02 PM EST Pt scheduled for MING with Dr Stanley on 05/29/2023 @ . Pts H&P/EKG/labs are UTD. Miya, please call with teach. Tenorio, please place surg/proc orders. Thank you!! documented in this encounterSProMedica Memorial [id number] Miscellaneous Notes* Addendum Note - Stephanie Green PA-C - 05/27/2023 1:38 PM ESTAddended by: STEPHANIE GREEN on: 05/27/2023 02:11 PM Modules accepted: Orders documented in this [facility]01-10-2024 Note* Addendum Note - Stephanie Green PA-C - 05/27/2023 1:38 PM ESTAddended by: STEPHANIE GREEN on: 05/27/2023 02:11 PM Modules accepted: Orders [facility] [id number] Note* Addendum Note - Stephanie Green PA-C - 05/27/2023 1:38 PM ESTAddended by: STEPHANIE GREEN on: 05/27/2023 02:11 PM Modules accepted: Orders [facility] [id number] Telephone encounter Note* Telephone Encounter - Estefania Clemente - 05/27/2023 1:37 PM EST PT returned call & I gave him the instructions - pt had no questions [facility] [id number] Telephone encounter Note* Telephone Encounter - Miya Harris RN - 05/27/2023 1:16 PM EST Pt had RHC on 05/25/23, which stated: Recommendations 1. Will proceed with MING to better assess mitral valve 2. Restart furosemide and continue spironolactone 3. Start empagliflozin 10 mg per day. 4. Consider jluye-bg-cctwa mitral valve replacement if indicated and after discussion with valve team. You are scheduled for a MING with Dr Stanley on 05/29/23 at 1:00pm. - Please arrive to [address] [place] [address], 90 minutes prior to your procedure time. - You may use combined rail operator or park in the parking deck attached to the [address] [place] [address] building. - Check into Prep and Recovery area on the ground floor Prep: - nothing to eat/drink 8 hours prior to the procedure, except you may have sips of clear liquids upto 2 hours prior to your procedure - bring a list of your medications (including the doses) - bring a designated subway train driver as you will be unable to [...] following medications that morning: lasix, spironolactone - MING: labs ordered only at the discretion of performing physician: none per Dr Stanley - ECG (within 30 days): 04/30/23 - H&P (within 30 days): 04/30/23 - please call our office with any questions! [phone] *Tried to call pt to review prep/instructions- NO ANSWER. Left a brief message asking pt to call back. [facility] [id number] Telephone encounter Note* Telephone Encounter - Estefania Clemente - 05/27/2023 12:02 PM EST Pt scheduled for MING with Dr Stanley on 05/29/2023 @ . Pts H&P/EKG/labs are UTD. Miya, please call with teach. Tenorio, please place surg/proc orders. Thank you!! [facility] [id number] Telephone encounter Note* Telephone Encounter - Isabell Shaffer [facility] - 05/27/2023 10:35 AM EST SUBJECTIVE Brianne Walls is a 67 year old Male who was referred to [facility] for clinical management services for Jardiance 10 [...] currently taking metoprolol, spironolactone, and furosemide. The integrity manager recommends addition of Jardiance at this time. We reviewed dose, administration, and side effects. He has no questions or concerns at this time. He asks about scheduling a BPVR. I advised he will need to call the cardiology directly to inquire on this. Delores VelasquezD [facility] [id number] Miscellaneous Notes* Telephone Encounter - Isabell Shaffer RPh - 05/27/2023 10:35 AM EST SUBJECTIVE Brianne Walls is a 67 year old Male who was referred to [facility] for clinical management services for Jardiance 10 [...] currently taking metoprolol, spironolactone, and furosemide. The integrity manager recommends addition of Jardiance at this time. We reviewed dose, administration, and side effects. He has no questions or concerns at this time. He asks about scheduling a BPVR. I advised he will need to call the cardiology directly to inquire on this. Isabell Shaffer PharmD documented in this [facility]01-10-2024 Telephone encounter Note* Telephone Encounter - Martín Rodriguez - 05/27/2023 9:19 AM EST Spoke with patient regarding assistance for Jardiance. He is going to discuss income with and call us back with info. [facility] [id number] Miscellaneous Notes* Telephone Encounter - Martín Rodriguez - 05/27/2023 9:19 AM EST Spoke with patient regarding assistance for Jardiance. He is going to discuss income with and call us back with info. documented in this [facility]SPro[facility] [id number] Telephone encounter Note* Telephone Encounter - Christ Gibson RN - 05/25/2023 2:51 PM EST Called and spoke with patient. Informed him that Jardiance was sent to [facility] pharmacy and it will be sent out to him. Instructed him to have labs drawn a week after starting the medication. Advised patient that he should be taking his lasix everyday. He acknowledged but stated that he will need a refill sent in. [facility] [id number] Miscellaneous Notes* Telephone Encounter - Christ Gibson RN - 05/25/2023 2:51 PM EST Called and spoke with patient. Informed him that Jardiance was sent to [facility] pharmacy and it will be sent [...] at 05/25/2023 10:58 AM EST ----- SHIVA Resendiz empagliflozin new start. Laveda. Can you call him and tell him that I have started her new pills and be delivered to his house about a week. He needs to have blood work 1 week after starting the empagliflozin. Also tell him that he needs to be taking his Lasix. Estefania, can you schedulea transesophageal echocardiogram for him. Thanks! documented in this [facility]01-08-2024 Telephone encounter Note* Telephone Encounter - Christ Gibson RN - 05/25/2023 11:01 AM EST ----- Message from Lance Hobbs MD sent at 05/25/2023 10:58 AM EST ----- SHIVA Resendiz, empagliflozin new start. Christ. Can you call him and tell him that I have started her new pills and be delivered to his house about a week. He needs to have blood work 1 week after starting the empagliflozin. Also tell him that he needs to be taking his Lasix. Estefania, can you schedulea transesophageal echocardiogram for him. Thanks! [facility] [id number] History of Present illness Narrative* Lance Hobbs MD - 05/25/2023 10:53 AM EST Starting empagliflozin for heart failure. Getting transesophageal echocardiogram to look for mitralvalve stenosis. documented in this [facility]01-08-2024 Hospital Discharge instructions* Discharge Instructions* Nancy Rolle [...] be gone by tomorrow. documented in this [facility]01-08-2024 Note* Pre-Sedation Documentation - Lance Hobbs MD - 05/25/2023 9:09 AM EST Sedation Plan Mallampati class: II - soft palate, uvula, fauces visible. Sedation plan: local anesthesia Risks, benefits, and alternatives discussed with patient. [facility] [id number] Note* Pre-Sedation Documentation - Lance Hobbs MD - 05/25/2023 9:09 AM EST Sedation Plan Mallampati class: II - soft palate, uvula, fauces visible. Sedation plan: local anesthesia Risks, benefits, and alternatives discussed with patient. [facility] [id number] Miscellaneous Notes* Pre-Sedation Documentation - Lance Hobbs MD - 05/25/2023 9:09 AM EST Sedation Plan Mallampati class: II - soft palate, uvula, fauces visible. Sedation plan: local anesthesia Risks, benefits, and alternatives discussed with patient. documented in this [facility]01-02-2024 Telephone encounter Note* Telephone Encounter - Gabi Shankar PA-C - 05/19/2023 4:07 PM EST Orders placed without EKG - this was completed during OV [employer] Phone: 1(774) 567-243801-02-2024 Miscellaneous Notes* Telephone Encounter - Gabi Shankar PA-C - 05/19/2023 4:07 PM EST Orders placed without EKG - this was completed during OV * Telephone Encounter - Estefania Clemente - 05/19/2023 3:16 PM EST PT scheduled for RHC with Dr Hobbs on 05/25/23 @ 8a. Pts H&P is UTD & pt will have labs @ [facility] on 05/20/23. Teach done in office. Gabi, please place surg/proc orders and order for EKG day of * Telephone Encounter - Diana Chavarria RN - 04/30/2023 3:11 PM EST Images from the original note were not included. PROCEDURE: RIGHT HEART CATH PROCEDURE DATE: Estefania to call pt with date and time. PROCEDURE TIME: ARRIVE AT Report to the 2nd floor Family waiting area at the hospital entrance at [address] [place] [address]. Nothing to eat or drink after midnight [...] for procedure; Please make arrangements for a subway train driver after the procedure. You will not be able to drive for 24 to 72 hours. Pt will get labwork prior to procedure in [place]- pt will call when he gets his labwork done. If you have any questions regarding your medications, please call your doctor's office. All patients will be called the afternoon prior to the procedure with specific instructions if there should be any changes. If you do not receive a call by 4:30 pm, please call the Prep and Recovery area at [phone]. The schedule is not finalized until the afternoon, so please avoid calling before 4:30 pm. documented in this [facility]01-02-2024 History and physical note* Gabi Shankar PA-C - 05/19/2023 4:02 PM EST [...] records including an echocardiogram from January 2011 [facility] which showed left ventricular ejection fraction 49%, and a well-functioning bioprosthetic mitral valve with a mean gradient of 4 mmHg. He has been following with the group in [place].He underwent a transthoracic echocardiogram in February 2023 [...] Hypertension 01/13/2011 Hyperthyroidism Pacemaker Paroxysmal A-fib (CMS/HCC) ([facility]) Pneumonia Past Surgical History Surgical History Past Surgical History: Procedure Laterality Date HARDWARE REMOVAL Right 05/02/2016 SCREW IN RIGHT 4TH TOE INSERT / REPLACE / REMOVE PACEMAKER 10/10/2014 MITRAL VALVE REPLACEMENT 07/27/2014 bioprosthetic valve TRICUSPID VALVE SURGERY 07/27/2014 Repair Family History Family History Family History Problem Relation Name Age of Onset Atrial fibrillation Mother Other (23513) Mother pacemaker Heart disease Father Social History [...] Take 20 mg by mouth daily. HYDROcodone-acetaminophen ([place]) 5-325 MG tablet TAKE 1 TABLET BY [...] is alert. CBC: No results for input(s): WBC, HGB, HCT, PLT in the last 72 hours. BMP:No results for input(s): NA, K, CL, CO2, BUN, CREATININE, GLU, LABGLOM in the last 72 hours. No [...] 1.4 (A) 02/25/2023 INR:No results found for: INR, PROTIME PRO-BNP: No results found for: BNP TSH: Lab Results Component Value Date TSH 3.540 02/25/2023 Lipid Profile: No results found for: TRIG, HDL, LDLCALC, CHOL Hemoglobin A1C: No results found for: HGBA1C GRISELDA: No results found for: GRISELDA Ferritin: No results found for: FERRITIN HIV: No results found for: [id number] EKG: See Report Echo: See Report EF: No components found for: LVEF, LVEFMODE IMPRESSIONS: Diagnosis Plan 1. Primary hypertension [...] failure (HCC) NT PRO BNP Case Request Lumber Sorter: Right heart cath CBC NT PRO BNP [...] #29 Medtronic tissue valve in 2014 at [facility]. His last echo suggested a mean gradient across the valve of 8 mmHg. 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 Will continue to follow this. Paroxysmal atrial fibrillation: His EKG today shows sinus rhythm with LVH and left anterior fascicular block. He is on warfarin and metoprolol 50 mg/day. Lance Hobbs MD, PhD Advanced Heart Failure Cardiology [facility] [place] 2:41 PM 04/30/23 Copied by Gabi Shankar PA-C [employer] Work Phone: 1(436) 654-386701-02-2024 History and physical note* Gabi Shankar PA-C - 05/19/2023 4:02 PM EST [...] records including an echocardiogram from January 2011 [facility] which showed left ventricular ejection fraction 49%, and a well-functioning bioprosthetic mitral valve with a mean gradient of 4 mmHg. He has been following with the group in [place].He underwent a transthoracic echocardiogram in February 2023 [...] kidney disease COPD (chronic obstructive pulmonary disease) ([facility]) Depression DVT (deep venous thrombosis) ([facility]) Endocarditis History of blood transfusion Hyperlipidemia Hypertension 01/13/2011 Hyperthyroidism Pacemaker Paroxysmal A-fib (CMS/HCC) ([facility]) Pneumonia Past Surgical History Surgical History Past Surgical History: Procedure Laterality Date HARDWARE REMOVAL Right 05/02/2016 SCREW IN RIGHT 4TH TOE INSERT / REPLACE / REMOVE PACEMAKER 10/10/2014 MITRAL VALVE REPLACEMENT 07/27/2014 bioprosthetic valve TRICUSPID VALVE SURGERY 07/27/2014 Repair Family History Family History Family History Problem Relation Name Age of Onset Atrial fibrillation Mother Other ([address]56) Mother pacemaker Heart disease Father Social History [...] Take 20 mg by mouth daily. HYDROcodone-acetaminophen ([place]) 5-325 MG tablet TAKE 1 TABLET BY [...] is alert. CBC: No results for input(s): WBC, HGB, HCT, PLT in the last 72 hours. BMP:No results for input(s): NA, K, CL, CO2, BUN, CREATININE, GLU, LABGLOM in the last 72 hours. No [...] 1.4 (A) 02/25/2023 INR:No results found for: INR, PROTIME PRO-BNP: No results found for: BNP TSH: Lab Results Component Value Date TSH 3.540 02/25/2023 Lipid Profile: No results found for: TRIG, HDL, LDLCALC, CHOL Hemoglobin A1C: No results found for: HGBA1C GRISELDA: No results found for: GRISELDA Ferritin: No results found for: FERRITIN HIV: No results found for: [id number] EKG: See Report Echo: See Report EF: No components found for: LVEF, LVEFMODE IMPRESSIONS: Diagnosis Plan 1. Primary hypertension [...] failure (HCC) NT PRO BNP Case Request Lumber Sorter: Right heart cath CBC NT PRO BNP [...] #29 Medtronic tissue valve in 2014 at [facility]. His last echo suggested a mean gradient across the valve of 8 mmHg. 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 Will continue to follow this. Paroxysmal atrial fibrillation: His EKG today shows sinus rhythm with LVH and left anterior fascicular block. He is on warfarin and metoprolol 50 mg/day. Lance Hobbs MD, PhD Advanced Heart Failure Cardiology [facility] [place] 2:41 PM 04/30/23 Copied by Gabi Shankar PA-C documented in this [facility]01-02-2024 Telephone encounter Note* Telephone Encounter - Estefania Clemente - 05/19/2023 3:16 PM EST PT scheduled for RHC with Dr Hobbs on 05/25/23 @ 8a. Pts H&P is UTD & pt will have labs @ [facility] on 05/20/23. Teach done in office. Gabi, please place surg/proc orders and order for EKG day [facility] [id number] Telephone encounter Note* Telephone Encounter - Diana Chavarria RN - 04/30/2023 3:11 PM EST Images from the original note were not included. PROCEDURE: RIGHT HEART CATH PROCEDURE DATE: Estefania marmolejo call pt with date and time. PROCEDURE TIME: ARRIVE AT Report to the 2nd floor Family waiting area at the hospital entrance at [address] Nothing to eat or drink after [...] for procedure; Please make arrangements for a subway train driver after the procedure. You will not be able to drive for 24 to 72 hours. Pt will get labwork prior to procedure in [place]- pt will call when he gets his labwork done. If you have any questions regarding your medications, please call your doctor's office. All patients will be called the afternoon prior to the procedure with specific instructions if there should be any changes. If you do not receive a call by 4:30 pm, please call the Prep and Recovery area at [phone]. The schedule is not finalized until the afternoon, so please avoid calling before 4:30 pm. [id number] History of Present illness Narrative* Lance Hobbs [...] records including an echocardiogram from January 2011 [facility] which showed left ventricular ejection fraction 49%, and a well-functioning bioprosthetic mitral valve with a mean gradient of 4 mmHg. He has been following with the group in [place].He underwent a transthoracic echocardiogram in February 2023 [...] History: Diagnosis Date Anemia Arthritis Bone infection ([facility]) spine CAD (coronary artery disease) Chronic back pain Chronic kidney disease COPD (chronic obstructive pulmonary disease) ([facility]) Depression DVT (deep venous thrombosis) ([facility]) Endocarditis History of blood transfusion Hyperlipidemia Hypertension 01/13/2011 Hyperthyroidism Pacemaker Paroxysmal A-fib (CMS/HCC) ([facility]) Pneumonia Past Surgical History Past Surgical History: Procedure Laterality Date HARDWARE REMOVAL Right 05/02/2016 SCREW IN RIGHT 4TH TOE INSERT / REPLACE / REMOVE PACEMAKER 10/10/2014 MITRAL VALVE REPLACEMENT 07/27/2014 bioprosthetic valve TRICUSPID VALVE SURGERY 07/27/2014 Repair Family History Family History Problem Relation Name Age of Onset Atrial fibrillation Mother Other (25177) Mother pacemaker Heart disease Father Social History [...] Take 20 mg by mouth daily. HYDROcodone-acetaminophen ([place]) 5-325 MG tablet TAKE 1 TABLET BY [...] is alert. CBC: No results for input(s): WBC, HGB, HCT, PLT in the last 72 hours. BMP:No results for input(s): NA, K, CL, CO2, BUN, CREATININE, GLU, LABGLOM in the last 72 hours. No [...] 1.4 (A) 02/25/2023 INR:No results found for: INR, PROTIME PRO-BNP: No results found for: BNP TSH: Lab Results Component Value Date TSH 3.540 02/25/2023 Lipid Profile: No results found for: TRIG, HDL, LDLCALC, CHOL Hemoglobin A1C: No results found for: HGBA1C GRISELDA: No results found for: GRISELDA Ferritin: No results found for: FERRITIN HIV: No results found for: [id number] EKG: See Report Echo: See Report EF: No components found for: LVEF, LVEFMODE IMPRESSIONS: Diagnosis Plan 1. Primary hypertension [...] failure (HCC) NT PRO BNP Case Request Lumber Sorter: Right heart cath CBC NT PRO BNP [...] #29 Medtronic tissue valve in 2014 at [facility]. His last echo suggested a mean gradient across the valve of 8 mmHg. 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 Will continue to follow this. Paroxysmal atrial fibrillation: His EKG today shows sinus rhythm with LVH and left anterior fascicular block. He is on warfarin and metoprolol 50 mg/day. Lance Hobbs MD, PhD Advanced Heart Failure Cardiology [facility]. [facility] [place] 2:41 PM 04/30/23 documented in this [facility]12-14-2023 History of Present illness Narrative* Lance Hobbs [...] records including an echocardiogram from January 2011 [facility] [place] which showed left ventricular ejection fraction 49%, and a well-functioning bioprosthetic mitral valve with a mean gradient of 4 mmHg. He has been following with the group in [place].He underwent a transthoracic echocardiogram in February 2023 [...] History: Diagnosis Date Anemia Arthritis Bone infection ([facility]) spine CAD (coronary artery disease) Chronic back pain Chronic kidney disease COPD (chronic obstructive pulmonary disease) ([facility]) Depression DVT (deep venous thrombosis) ([facility]) Endocarditis History of blood transfusion Hyperlipidemia Hypertension 01/13/2011 Hyperthyroidism Pacemaker Paroxysmal A-fib (CMS/HCC) ([facility]) Pneumonia Past Surgical History Past Surgical History: Procedure Laterality Date HARDWARE REMOVAL Right 05/02/2016 SCREW IN RIGHT 4TH TOE INSERT / REPLACE / REMOVE PACEMAKER 10/10/2014 MITRAL VALVE REPLACEMENT 07/27/2014 bioprosthetic valve TRICUSPID VALVE SURGERY 07/27/2014 Repair Family History Family History Problem Relation Name Age of Onset Atrial fibrillation Mother Other ([address]43) Mother pacemaker Heart disease Father Social History [...] Take 20 mg by mouth daily. HYDROcodone-acetaminophen ([place]) 5-325 MG tablet TAKE 1 TABLET BY [...] is alert. CBC: No results for input(s): WBC, HGB, HCT, PLT in the last 72 hours. BMP:No results for input(s): NA, K, CL, CO2, BUN, CREATININE, GLU, LABGLOM in the last 72 hours. No [...] 1.4 (A) 02/25/2023 INR:No results found for: INR, PROTIME PRO-BNP: No results found for: BNP TSH: Lab Results Component Value Date TSH 3.540 02/25/2023 Lipid Profile: No results found for: TRIG, HDL, LDLCALC, CHOL Hemoglobin A1C: No results found for: HGBA1C GIRSELDA: No results found for: GRISELDA Ferritin: No results found for: FERRITIN HIV: No results found for: [id number] EKG: See Report Echo: See Report EF: No components found for: LVEF, LVEFMODE IMPRESSIONS: Diagnosis Plan 1. Primary hypertension [...] failure (HCC) NT PRO BNP Case Request Lumber Sorter: Right heart cath CBC NT PRO BNP [...] #29 Medtronic tissue valve in 2014 at [facility]. His last echo suggested a mean gradient across the valve of 8 mmHg. 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 Will continue to follow this. Paroxysmal atrial fibrillation: His EKG today shows sinus rhythm with LVH and left anterior fascicular block. He is on warfarin and metoprolol 50 mg/day. Lance Hobbs MD, PhD Advanced Heart Failure Cardiology [facility]. [facility] [place] 2:41 PM 04/30/23 documented in this [facility]12-14-2023 Instructions* Patient Instructions* Lance Hobbs MD - 04/30/2023 1:30 PM EST Brianne, good to meet you today. You need to [...] Return for the cath. documented in this [facility]12-14-2023 Instructions* Patient Instructions* Lance Hobbs MD - 04/30/2023 1:30 PM EST Brianne, good to meet you today. You need to [...] Return for the cath. documented in this [facility]11-24-2017 Miscellaneous Notes* Telephone Encounter - Brandin Alvarado - 04/10/2017 10:22 AM EST Sent to mail order [facility]* Diagnosis Onset Date Resolution Status Paroxysmal atrial fibrillation acute [facility] Essential (primary) hypertension chronic History of mitral valve repl acement with bioprosthetic valve July 27, 2014 chronic History of tricuspid valve repair July, chronic Pure hypercholesterolemia [facility] Work Phone: 1(145) 258-911008-29-2011 History of Past illness Narrative* Problem Noted [...] ordered? No - reason: NO CAD per [facility] H & P completed: Yes PA/LAT: Completed CT: Completed-Chest & ABD. MRI: N/A LE US: N/A Cath: Yes [facility]- reviewed: Yes Echo:Completed EKG: Completed EF %: [...] of this encounter (statuses as of 09/22/2020) [facility] Diagnosis Onset Date Resolution Status Paroxysmal atrial fibrillation acute Cardiac pacemaker in situ ch ronic Paroxysmal atrial fibrillation acute Cardiac pacemaker in situ ch ronic Essential (primary) hypertension chronic History of mitral valve repl acement with bioprosthetic valve July 27, 2014 chronic History of tricuspid valve repair July, chronic Pure hypercholesterolemia ch ronic [facility] Work Phone: Evaluation note* Diagnosis Onset Date Resolution Status Paroxysmal atrial fibrillation acute Cardiac pacemaker in situ ch ronic Paroxysmal atrial fibrillation acute Cardiac pacemaker in situ ch ronic Essential (primary) hypertension chronic History of mitral valve repl acement with bioprosthetic valve July 27, 2014 chronic History of tricuspid valve repair July, chronic Pure hypercholesterolemia ch ronic Acute hypotension acute Near syncope acute URI, acute acute [facility] Work Phone: Evaluation note* Diagnosis Onset Date Resolution Status Paroxysmal atrial fibrillation acute Cardiac pacemaker in situ ch ronic Paroxysmal atrial fibrillation acute Cardiac pacemaker in situ ch ronic Essential (primary) hypertension chronic History of mitral valve repl acement with bioprosthetic valve July 27, 2014 chronic History of tricuspid valve repair July, chronic Pure hypercholesterolemia ch ronic Acute hypotension resolved Near syncope resolved URI, acute resolved [facility] Work Phone: Evaluation note* Diagnosis Onset Date Resolution Status Paroxysmal atrial fibrillation acute Cardiac pacemaker in situ ch ronic Paroxysmal atrial fibrillation acute Cardiac pacemaker in situ ch ronic Essential (primary) hypertension chronic History of mitral valve repl acement with bioprosthetic valve July 27, 2014 chronic History of tricuspid valve repair July, chronic Pure hypercholesterolemia ch ronic Acute hypotension resolved Near syncope resolved URI, acute resolved Leg wound, right acute Peripheral vascular disease, unspecified acute 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 [facility] [facility] [place] Work Phone: Evaluation note* Diagnosis Onset Date Resolution Status Acute hypotension resolved Near syncope resolved URI, acute resolved Leg wound, right acute Peripheral vascular disease, unspecified acute 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 Peripheral vascular disease, unspecified acute 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 [facility] [place] Work Phone: Evaluation note* Diagnosis Onset Date Resolution Status Acute hypotension resolved Near syncope resolved URI, acute resolved Leg wound, right acute Peripheral vascular disease, unspecified acute 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 Peripheral vascular disease, unspecified acute 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 Peripheral vascular disease, unspecified acute 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 [facility] [place] Work Phone: evaluation note* Diagnosis Onset Date Resolution Status Leg wound, right acute Peripheral vascular disease, unspecified acute 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 Peripheral vascular disease, unspecified acute 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 Peripheral vascular disease, unspecified acute 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 Paroxysmal atrial fibrillation acute Cardiac pacemaker in situ ch ronic Paroxysmal atrial fibrillation acute Cardiac pacemaker in situ ch ronic Essential (primary) hypertension chronic History of mitral valve repl acement with bioprosthetic valve July 27, 2014 chronic History of tricuspid valve repair July, chronic Pure hypercholesterolemia [facility] Work Phone: evaluation note* Diagnosis Onset Date Resolution Status Peripheral vascular disease, unspecified acute 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 Peripheral vascular disease, unspecified acute 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 Paroxysmal atrial fibrillation acute Cardiac pacemaker in situ ch ronic Paroxysmal atrial fibrillation acute Cardiac pacemaker in situ ch ronic Essential (primary) hypertension chronic History of mitral valve repl acement with bioprosthetic valve July 27, 2014 chronic History of tricuspid valve repair July, chronic Pure hypercholesterolemia [facility] Work Phone: evaluation noteNo assessment information available [facility] [place] Work Phone: evaluation note* Diagnosis Onset Date Resolution Status Sick sinus syndrome acute Cardiac pacemaker in situ ch ronic Paroxysmal atrial fibrillation acute Cardiac pacemaker in situ ch ronic Essential (primary) hypertension chronic History of mitral valve repl acement with bioprosthetic valve July 27, 2014 chronic History of tricuspid valve repair July, chronic Pure hypercholesterolemia [facility] Work Phone: evaluation note* Diagnosis Onset Date Resolution Status Paroxysmal atrial fibrillation acute Sick sinus syndrome acute Cardiac pacemaker in situ ch ronic Anemia acute Paroxysmal atrial fibrillation acute Cardiac pacemaker in situ ch ronic Essential (primary) hypertension chronic History of mitral valve repl acement with bioprosthetic valve July 27, 2014 chronic History of tricuspid valve repair July, chronic Pure hypercholesterolemia [facility] Work Phone: Evaluation note* Diagnosis Primary hypertension- Primary Unspecified essential hypertension 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 Cardiac pacemaker in situ Bacterial endocarditis, unspecified chronicity Syncope, unspecified syncope type 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 Diagnosis Primary hypertension- Primary Unspecified [...] heart failure (HCC) [facility]* Diagnosis 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)- Primary 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) [facility] this 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* Diagnosis 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) [facility] this 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* Diagnosis Paravalvular leak of prosthetic heart valve, initial encounter- Primary [facility]* Diagnosis Mitral valve insufficiency, unspecified etiology- Primary Acute deep vein thrombosis (DVT) of right lower extremity, unspecified vein (HCC) 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) Perivalvular leak of prosthetic heart valve, initial encounter Nonrheumatic mitral valve disorder, unspecified S/P mitral valve replacement Heart valve replaced by other means documented [facility] this [facility]* Diagnosis S/P mitral valve replacement- Primary Heart valve replaced by other means Bacterial endocarditis, unspecified chronicity Mitral valve insufficiency, unspecified etiology documented [facility] this [facility]* Diagnosis Perivalvular leak of prosthetic heart valve, initial encounter Nonrheumatic mitral valve disorder, unspecified documented [facility] this [facility]* Diagnosis Prosthetic cardiac paravalvular leak, [...] leak, initial encounter [facility] this [facility]* Diagnosis Prosthetic cardiac paravalvular leak, initial encounter- Primary Prosthetic cardiac paravalvular leak, initial encounter Prosthetic cardiac paravalvular leak, initial encounter [facility] this [facility]* Diagnosis Prosthetic cardiac paravalvular leak, initial encounter- Primary Severe mitral regurgitation- Primary Prosthetic cardiac paravalvular leak, initial encounter [facility] this [facility]* Diagnosis Prosthetic cardiac paravalvular leak, initial encounter- Primary Prosthetic cardiac paravalvular leak, initial encounter Dyspnea, unspecified Prosthetic cardiac paravalvular leak, initial encounter documented [facility] this [facility]* Diagnosis Mitral valve insufficiency, unspecified etiology- Primary [facility] this [facility]* Diagnosis Prosthetic cardiac paravalvular leak, [...] Anemia, unspecified type [facility] Diagnosis Mitral valve insufficiency, unspecified etiology Shortness of breath [facility] Diagnosis Severe mitral regurgitation documented [facility]* Diagnosis Severe mitral regurgitation documented [facility]* Diagnosis Congestive heart failure with right [...] (mild) Other hyperlipidemia 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* Diagnosis SDH (subdural hematoma) (HCC)- Primary Subdural hemorrhage SDH (subdural hematoma) (HCC) Subdural hemorrhage Brain compression (CMS/HCC) (HCC) Compression of brain Anticoagulated on Coumadin Fall Unspecified fall 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 documented [facility]* Diagnosis SDH (subdural hematoma) (HCC) Subdural hemorrhage documented [facility]* Diagnosis Chronic bilateral low back pain without sciatica- Primary documented [facility]* Diagnosis 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) Vegetative endocarditis of mitral valve Chronic diastolic heart failure (HCC) Chronic diastolic heart failure Pulmonary hypertension (HCC) Other chronic pulmonary heart diseases 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) Other hyperlipidemia documented [facility]* Diagnosis Postoperative visit- Primary Subdural hematoma (HCC) Subdural hemorrhage Anticoagulation adequate documented [facility]* Diagnosis Vegetative endocarditis of mitral valve Chronic diastolic heart failure (HCC) Chronic diastolic heart failure Pulmonary hypertension (HCC) Other chronic pulmonary heart diseases 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) Other hyperlipidemia [facility] [place] [facility]* Diagnosis Postoperative visit Subdural hematoma (HCC) Subdural hemorrhage Anticoagulation adequate [facility] [place] [facility]* Diagnosis Lumbar radiculopathy- Primary Thoracic or lumbosacral neuritis or radiculitis, unspecified documented in this [facility] [place] [facility]* Diagnosis Postoperative visit- Primary Subdural hematoma (HCC) Subdural hemorrhage Anticoagulation adequate Postoperative visit Subdural hematoma (HCC) Subdural hemorrhage Anticoagulation adequate documented [facility]* Diagnosis 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) documented [facility] [place] [facility]* Diagnosis Failure of pacemaker lead, initial encounter- Primary Bradycardia Other specified cardiac dysrhythmias Vegetative endocarditis of mitral valve Acute and subacute bacterial endocarditis Primary hypertension Unspecified essential hypertension Pacemaker at end of battery life Fitting and adjustment of cardiac pacemaker SSS (sick sinus syndrome) ([facility]) Sinoatrial node dysfunction History of SBE (subacute bacterial endocarditis) Personal history of other diseases of circulatory system S/P MVR (mitral valve replacement) Heart valve replaced by other means S/P tricuspid valve repair Other postprocedural status [facility] [place] [facility]* Diagnosis 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) documented [facility] this [facility] [place] [facility]* Diagnosis Onset Date Resolution Status Admit Date Paroxysmal atrial fibrillation acute December 29, 2024 8:29am Cardiac pacemaker in situ chronic December 29, 2024 8:29am Essential (primary) hypertension chr onic December 29, 2024 8:29am History of mitral valve replacement with bioprosthetic valve July 27, 2014 chronic December 29 8:29am History of tricuspid valve repair July, chronic December 29 8:29am Pure hypercholesterolemia chronic December 29, 2024 8:29am [employer] Work Phone: Evaluation note* Diagnosis 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)- Primary Prosthetic cardiac paravalvular leak, initial encounter Bacterial endocarditis, unspecified chronicity S/P mitral valve replacement Heart valve replaced by other means Chronic diastolic heart failure (HCC) Chronic diastolic heart failure Pulmonary hypertension (HCC) Other chronic pulmonary heart diseases Severe mitral regurgitation CKD (chronic kidney disease) stage 2, GFR 60-89 ml/min Chronic kidney disease, Stage II (mild) Other hyperlipidemia documented in this encounter [facility] course Narrative No data available for this section [facility] Discharge instructions Additional Instructions Thank you for trusting us with your care today! Please take Tylenol (2 pills, 650 mg) every 6 hours as needed for pain and fever control. Please return to the emergency department if your symptoms change or worsen. Please follow with your primary care physician for further outpatient evaluation and management.[facility] [place] Work Phone: Hospital Discharge instructions Additional Instructions Your CT scan did not show a brain bleed or facial fracture but it did show bruising around your inferior rectus muscle consistent with an extraconal contusion. Secondary to this please contact your eye doctor and follow-up with them for repeat evaluation. Return to the ER should you have any [facility] Work Phone: Reason for referral (narrative)* Consultation (Routine) - Pending Review Specialty Diagnoses / Procedures Referred By Contdarshan t Referred To Contact Cardiology Diagnoses Paravalvular leak of prosthetic heart valve, initial encounter Procedures [place] OFFICE/OUTPATIENT NEW HIGH MDM 60 MINUTES Lance Hobbs MD [address] [place] [address] [place] [id number] [facility] [address] [place] [address] Referral ID Status Reason Start Date Expiration Date Visits Requested Visits Authorized [id number] Pending Review Specialty Services Required 06/01/2023 05/31/2024 1 1 [facility] for referral (narrative)* Consultation (Routine) - Pending Review Specialty Diagnoses / Procedures Referred By Contdarshan t Referred To Contact Cardiology Diagnoses Severe mitral regurgitation S/P mitral valve repair Procedures [place] OFFICE/OUTPATIENT NEW HIGH MDM 60 MINUTES Gabi Leonardo, CONTINUOUS LINTER DRIER OPERATOR - FEATHERER [address] [place] [id number] [address] [address] [place] [address] Referral ID Status Reason Start Date Expiration Date Visits Requested Visits Authorized [id number] Pending Review Specialty Services Required 08/06/2023 08/05/2024 [address] [facility] (narrative)No reason for referral information availableBishop [facility] Services Work Phone: Reason for visit Narrative* Imaging (Routine) - Closed Specialty Diagnoses / Procedures Referred By Contac t Referred To Contact Radiology Diagnoses Postoperative visit Subdural hematoma (HCC) Anticoagulation adequate Procedures CT head wo IV contrast Delbert Stover MD [address] [place] [address] Phone: tel: fax: Referral ID Status Reason Start Date Expiration Date Visits Re quested Visits Authorized [id number] Closed 02/23/2024 02/22/2025 [address] [facility] Summary Purpose Family History No Family History Records Found Relationship Condition Age at Onset Recorded Date/T get grandfather Coronary artery disease Unknown father Coronary artery disease Unknown History of coronary artery bypass surgery Unknown Advance Directives No Advanced Directives Records Found Advance Directive Response Recorded Date/ Time Advance Directives No May 29, 2016 9:35am Living Will No June 05 8:47pm Power of Stone Setter No June 05, 2021 8:47pm Advance Directive Response Recorded Date/ Time Advance Directives No May 29, 2016 9:35am Living Will No October 01, 2021 2 :00pm Power of Stone Setter No October 01, 2021 2:00pm Advance Directive Response Recorded Date/ Time Advance Directives No May 29, 2016 9:35am Living Will No October 30, 2021 7:45pm Power of Stone Setter No October 30 7:45pm Advance Directive Response Recorded Date/ Time Advance Directives No May 29, 2016 8:35am Living Will No October 30, 2021 6:45pm Power of Stone Setter No October 30 6:45pm Advance Directive Response Recorded Date/ Time Advance Directives No May 29, 2016 8:35am Living Will No Benedict 13th, 2 023 12:19pm Power of Stone Setter No April 29, 2023 12:19pm Latest Code Status on File Code Status [...] Code 05/25/2023 6:59 AM 05/25/2023 12:42 PM Advance Directive Response Recorded Date/ Time Advance Directives No May 29, 2016 9:35am Living Will No April 29, 2 023 1:19pm Power of Stone Setter No April 29, 2023 1:19pm Advance Directive Response Recorded Date/ Time Advance Directives No May 29, 2016 9:35am Living Will No September 25, 2023 3 :25am Power of Stone Setter No September 25, 2023 3:25am Date Activated Date Inactivated Comments 01/01/2024 5:54 [...] Comments 05/25/2023 6:59 AM 05/25/2023 12:42 PM Advance Directive Response Recorded Date/ Time Advance Directives No May 29, 2016 9:35am Advance Directive Response Recorded Date/ Time Living Will No September 25, 2023 3 :25am Do you have a Healthcare Power of Stone Setter? No September 25, 2023 3:25am Advance Directives No May 29, 2016 9:35am Chief Complaint and Reason for Visit Chief Complaint Admit Date 6 M FU/KRR @ 9 December 29, 2024 8: 29am Pacer Check Remote December 29, 2024 9: 00am Reason for Visit Admit Date Paroxysmal atrial fibrillation December 292024 8:29am Cardiac pacemaker in situ December 29, 2 025 8:29am Essential (primary) hypertension December 29, 2024 8:29am History of mitral valve replacement with bioprosthetic valve December 29, 2024 8:29am History of tricuspid valve repair December 29, 2024 8:29am Pure hypercholesterolemia December 29, 2 025 8:29am Sick sinus syndrome December 29, 2024 8: 29am Chief Complaint CHILLS s/o INR s/o INR ALCOHOL DETOX ALCOHOL DETOX ALCOHOL DETOX ALCOHOL DETOX ALCOHOL DETOX s/o INR R68.83 6 MO F/U / KALANI 9:00 Reason for Visit Paroxysmal atrial fi brillation Cardiac pacemaker in situ Paroxysmal atrial fibrillation Cardiac pacemaker in situ Essential (primary) hypertension History of mitral valve replacement with bioprosthetic valve History of tricuspid valve repair Pure hypercholesterolemia Chief Complaint s/o INR ALCOHOL DETOX ALCOHOL DETOX ALCOHOL DETOX ALCOHOL DETOX ALCOHOL DETOX s/o INR R68.83 6 MO F/U / KALANI 9:00 s/o INR SYNCOPE Syncope Reason for Visit Paroxysmal atrial fi brillation Cardiac pacemaker in situ Paroxysmal atrial fibrillation Cardiac pacemaker in situ Essential (primary) hypertension History of mitral valve replacement with bioprosthetic valve History of tricuspid valve repair Pure hypercholesterolemia Acute hypotension Near syncope URI, acute Chief Complaint s/o INR R68.83 6 MO F/U / KALANI 9:00 s/o INR SYNCOPE Syncope Reason for Visit Paroxysmal atrial fi brillation Cardiac pacemaker in situ Paroxysmal atrial fibrillation Cardiac pacemaker in situ Essential (primary) hypertension History of mitral valve replacement with bioprosthetic valve History of tricuspid valve repair Pure hypercholesterolemia Acute hypotension Near syncope URI, acute Chief Complaint s/o INR R68.83 6 MO F/U / KALANI 9:00 s/o INR SYNCOPE Syncope s/o INR RIGHT LEG PAIN STAT Reason for Visit Paroxysmal atrial fi brillation Cardiac pacemaker in situ Paroxysmal atrial fibrillation Cardiac pacemaker in situ Essential (primary) hypertension History of mitral valve replacement with bioprosthetic valve History of tricuspid valve repair Pure hypercholesterolemia Acute hypotension Near syncope URI, acute Chief Complaint s/o INR R68.83 6 MO F/U / KALANI 9:00 s/o INR SYNCOPE Syncope s/o INR RIGHT LEG PAIN STAT RIGHT LEG EDEMA LOWER EXTREMITY Lower Extremity Injury Reason for Visit Paroxysmal atrial fi brillation Cardiac pacemaker in situ Paroxysmal atrial fibrillation Cardiac pacemaker in situ Essential (primary) hypertension History of mitral valve replacement with bioprosthetic valve History of tricuspid valve repair Pure hypercholesterolemia Acute hypotension Near syncope URI, acute Chief Complaint s/o INR R68.83 6 MO F/U / KALANI 9:00 s/o INR SYNCOPE Syncope RIGHT LEG PAIN STAT RIGHT LEG EDEMA LOWER EXTREMITY Lower Extremity Injury s/o INR wound Reason for Visit Paroxysmal atrial fi brillation Cardiac pacemaker in situ Paroxysmal atrial fibrillation Cardiac pacemaker in situ Essential (primary) hypertension History of mitral valve replacement with bioprosthetic valve History of tricuspid valve repair Pure hypercholesterolemia Acute hypotension Near syncope URI, acute Leg wound, right Peripheral vascular disease, unspecified Non-pressure chronic ulcer of right calf with fat layer exposed Chief Complaint s/o INR SYNCOPE Syncope RIGHT LEG PAIN STAT RIGHT LEG EDEMA LOWER EXTREMITY Lower Extremity Injury s/o INR wound wound Reason for Visit Acute hypotension Near syncope URI, acute Leg wound, right Peripheral vascular disease, unspecified Non-pressure chronic ulcer of right calf with fat layer exposed Peripheral vascular disease, unspecified Non-pressure chronic ulcer of right calf with fat layer exposed Chief Complaint s/o INR SYNCOPE Syncope RIGHT LEG PAIN STAT RIGHT LEG EDEMA LOWER EXTREMITY Lower Extremity Injury s/o INR wound wound wound Reason for Visit Acute hypotension Near syncope URI, acute Leg wound, right Peripheral vascular disease, unspecified Non-pressure chronic ulcer of right calf with fat layer exposed Peripheral vascular disease, unspecified Non-pressure chronic ulcer of right calf with fat layer exposed Peripheral vascular disease, unspecified Non-pressure chronic ulcer of right calf with fat layer exposed Chief Complaint RIGHT LEG EDEMA LOWER EXTREMITY Lower Extremity Injury s/o INR wound wound wound 30 pacer check (30) 1 Y FU s/o INR Reason for Visit Leg wound, right Peripheral vascular disease, unspecified Non-pressure chronic ulcer of right calf with fat layer exposed Peripheral vascular disease, unspecified Non-pressure chronic ulcer of right calf with fat layer exposed Peripheral vascular disease, unspecified Non-pressure chronic ulcer of right calf with fat layer exposed Paroxysmal atrial fibrillation Cardiac pacemaker in situ Paroxysmal atrial fibrillation Cardiac pacemaker in situ Essential (primary) hypertension History of mitral valve replacement with bioprosthetic valve History of tricuspid valve repair Pure hypercholesterolemia Chief Complaint wound wound 30 pacer check (30) 1 Y FU s/o INR Reason for Visit Peripheral vascular disease, unspecified Non-pressure chronic ulcer of right calf with fat layer exposed Peripheral vascular disease, unspecified Non-pressure chronic ulcer of right calf with fat layer exposed Paroxysmal atrial fibrillation Cardiac pacemaker in situ Paroxysmal atrial fibrillation Cardiac pacemaker in situ Essential (primary) hypertension History of mitral valve replacement with bioprosthetic valve History of tricuspid valve repair Pure hypercholesterolemia Chief Complaint 1 Y FU s/o INR s/o INR Reason for Visit Paroxysmal atrial fi brillation Cardiac pacemaker in situ Essential (primary) hypertension History of mitral valve replacement with bioprosthetic valve History of tricuspid valve repair Pure hypercholesterolemia Chief Complaint s/o INR R68.83 Chief Complaint s/o INR R68.83 6 mos PPM f/u s/o INR 6 M FU Reason for Visit Sick sinus syndrome Cardiac pacemaker in situ Paroxysmal atrial fibrillation Cardiac pacemaker in situ Essential (primary) hypertension History of mitral valve replacement with bioprosthetic valve History of tricuspid valve repair Pure hypercholesterolemia Chief Complaint 6 mos PPM f/u s/o INR 6 M FU LUNG NODULE LUNG NODULE Reason for Visit Sick sinus syndrome Cardiac pacemaker in situ Paroxysmal atrial fibrillation Cardiac pacemaker in situ Essential (primary) hypertension History of mitral valve replacement with bioprosthetic valve History of tricuspid valve repair Pure hypercholesterolemia Chief Complaint LUNG NODULE LUNG NODULE s/o INR Chief Complaint s/o INR 3 mos PPM f/u 6 M FU s/o INR Syncope and collapse Amb Documentation Amb Documentation Reason for Visit Paroxysmal atrial fi brillation Sick sinus syndrome Cardiac pacemaker in situ Anemia Paroxysmal atrial fibrillation Cardiac pacemaker in situ Essential (primary) hypertension History of mitral valve replacement with bioprosthetic valve History of tricuspid valve repair Pure hypercholesterolemia Chief Complaint 3 mos PPM f/u 6 M FU s/o INR Syncope and collapse Amb Documentation Amb Documentation s/o INR LEFT FOOT Reason for Visit Paroxysmal atrial fi brillation Sick sinus syndrome Cardiac pacemaker in situ Anemia Paroxysmal atrial fibrillation Cardiac pacemaker in situ Essential (primary) hypertension History of mitral valve replacement with bioprosthetic valve History of tricuspid valve repair Pure hypercholesterolemia Chief Complaint s/o INR Syncope and collapse Amb Documentation Amb Documentation s/o INR LEFT FOOT s/o INR Chief Complaint s/o INR LEFT FOOT s/o INR D509 Chief Complaint s/o INR LEFT FOOT s/o INR D509 D509 Chief Complaint s/o INR LEFT FOOT s/o INR D509 D509 6 M FU Reason for Visit Anemia Paroxysmal atrial fibrillation Cardiac pacemaker in situ Essential (primary) hypertension History of mitral valve replacement with bioprosthetic valve History of tricuspid valve repair Pure hypercholesterolemia Chief Complaint s/o INR D509 D509 6 M FU Reason for Visit Paroxysmal atrial fi brillation Cardiac pacemaker in situ Essential (primary) hypertension History of mitral valve replacement with bioprosthetic valve History of tricuspid valve repair Pure hypercholesterolemia Chief Complaint s/o INR D509 D509 6 M FU D509 Reason for Visit Paroxysmal atrial fi brillation Cardiac pacemaker in situ Essential (primary) hypertension History of mitral valve replacement with bioprosthetic valve History of tricuspid valve repair Pure hypercholesterolemia Chief Complaint s/o INR D509 D509 6 M FU D509 D509 FALL Reason for Visit Paroxysmal atrial fi brillation Cardiac pacemaker in situ Essential (primary) hypertension History of mitral valve replacement with bioprosthetic valve History of tricuspid valve repair Pure hypercholesterolemia Chief Complaint Admit Date 1 W WOUND CHECK July 13, 2024 8:48am Pacer Check Remote July 13, 2024 9:00am Pacer Check Remote August 17, 2024 9:00 am 6 W FU August 17, 2024 9:51 am Reason for Visit Admit Date Sick sinus syndrome July 13, 2024 8:48am Cardiac pacemaker in situ July 13, 2024 8:48am Paroxysmal atrial fibrillation August 9:51am Sick sinus syndrome August 17, 2024 9:51 am Cardiac pacemaker in situ August 17 9:51am Chief Complaint Admit Date 6 M FU/KRR @ 9 December 29, 2024 8: 29am Reason for Visit Admit Date Paroxysmal atrial fibrillation December 292024 8:29am Cardiac pacemaker in situ December 29, 2 025 8:29am Essential (primary) hypertension December 29, 2024 8:29am History of mitral valve replacement with bioprosthetic valve December 29, 2024 8:29am History of tricuspid valve repair December 29, 2024 8:29am Pure hypercholesterolemia December 29, 2 025 8:29am Reason for Referral Specialty Diagnoses / Procedures Referred By Contac t Referred To Contact Cardiology Diagnoses 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) Mitral valve stenosis and aortic valve stenosis Procedures Transesophageal echocardiogram (MING) with contrast and 3D PRN NJ ECHO TRANSESOPHAG R-T 2D W/PRB IMG ACQUISJ I&R NJ DOP ECHOCARD COLOR FLOW VELOCITY MAPPING NJ DOPPLER ECHOCARD PULSE WAVE W/SPECTRAL DISPLAY Lance Hobbs MD [address] [facility] [address] [place] [address] Referral ID Status Reason Start Date Expiration Date V isits Requested Visits Authorized [id number] Pending Review 05/25/2023 05/24/2024 1 1 Referral ID Status Reason Start Date Expiration Date Visits Re quested Visits Authorized [id number] Closed 05/25/2023 05/24/2024 1 1 Specialty Diagnoses / Procedures Referred By Contac t Referred To Contact Radiology Diagnoses Perivalvular leak of prosthetic heart valve, initial encounter Nonrheumatic mitral valve disorder, unspecified Procedures CT heart structure morphology w IV contrast Gabi Leonardo, CONTINUOUS LINTER DRIER OPERATOR - FEATHERER [address] [facility] [address] [place] [address] Referral ID Status Reason Start Date Expiration Date V isits Requested Visits Authorized [id number] Authorized 06/09/2023 06/08/2024 1 1 Referral ID Status Reason Start Date Expiration Date Visits Re quested Visits Authorized [id number] Closed 06/09/2023 06/08/2024 1 1 Specialty Diagnoses / Procedures Referred By Contac t Referred To Contact Cardiology Diagnoses Mitral valve insufficiency, unspecified etiology Procedures MING for Interventional Guidance Aleta Lopes MD [address] [place] [address] Referral ID Status Reason Start Date Expiration Date V isits Requested Visits Authorized [id number] Pending Review 07/29/2023 07/28/2024 1 1 Specialty Diagnoses / Procedures Referred By Contac t Referred To Contact Cardiology Diagnoses Severe mitral regurgitation Procedures Transthoracic echocardiogram (TTE) complete with contrast, bubble, strain, and 3D PRN NJ ECHO TTHRC R-T 2D W/WOM-MODE COMPL SPEC&COLR D NJ TTE W OR WO FOL YOKO,Josephine Yo, CONTINUOUS LINTER DRIER OPERATOR - FEATHERER [address] [place] [address] Referral ID Status Reason Start Date Expiration Date V isits Requested Visits Authorized [id number] Pending Review 08/05/2023 08/04/2024 1 1 Referral ID Status Reason Start Date Expiration Date Visits Re quested Visits Authorized [id number] Closed 08/05/2023 08/04/2024 1 1 Specialty Diagnoses / Procedures Referred By Contac t Referred To Contact Radiology Diagnoses SDH (subdural hematoma) (HCC) Procedures CT head wo IV contrast Olivia Del Castillo, CONTINUOUS LINTER DRIER OPERATOR - FEATHERER [address] [place] [address] Referral ID Status Reason Start Date Expiration Date V isits Requested Visits Authorized [id number] Authorized 01/06/2024 01/05/2025 1 1 Referral ID Status Reason Start Date Expiration Date Visits Re quested Visits Authorized [id number] Closed 01/06/2024 01/05/2025 1 1 Specialty Diagnoses / Procedures Referred By Contac t Referred To Contact Physical Therapy Diagnoses Chronic bilateral low back pain without sciatica Procedures [place] OFFICE/OUTPATIENT [facility] 60 MINUTES Mariana Reid MD [facility] [place] [address] Referral ID Status Reason Start Date Expiration Date Visits Requested Visits Authorized [id number] Pending Review Eval and Treat 01/22/2024 07/20/2024 99 99 Specialty Diagnoses / Procedures Referred By Contac t Referred To Contact Radiology Diagnoses Postoperative visit Subdural hematoma (HCC) Anticoagulation adequate Procedures CT head wo IV contrast Delbert Stover MD [address] [place] [id number] Referral ID Status Reason Start Date Expiration Date V isits Requested Visits Authorized [id number] Pending Review 02/23/2024 02/22/2025 1 1 Additional Source Comments (unrecognized sect ion and content) No Status Records FoundNo Status Records FoundNo Status Records FoundNo Status Records FoundNo Status Records Found INFORMATION SOURCE (unrecogn ized section and content) DATE CREATED AUTHOR 11/23/2017 [facility] DATE CREATED AUTHOR AUTHOR'S ORGANIZ ATION 10/03/2023 [facility] ([place]) DATE CREATED AUTHOR AUTHOR'S ORGANIZ ATION 07/07/2024 [facility] DATE CREATED AUTHOR AUTHOR'S ORGANIZ ATION 03/11/2025 [facility] DATE CREATED AUTHOR AUTHOR'S ORGANIZ ATION 03/23/2025 [facility] Source Comments (unrecognize d section and content) In the event this informatio n is protected by the Federal Confidentiality of Alcohol and Drug Abuse Patient Records regulations: The Federal rules restrict any use of the information to criminally investigate or prosecute any alcohol or drug abuse patient.[facility] the event this information is protected by the Federal Confidentiality of Alcohol and Drug Abuse Patient Records regulations: The Federal rules restrict any use of the information to criminally investigate or prosecute any alcohol or drug abuse patient.[facility] the event this information is protected by the Federal Confidentiality of Alcohol and Drug Abuse Patient Records regulations: The Federal rules restrict any use of the information to criminally investigate or prosecute any alcohol or drug abuse patient.[facility] the event this information is protected by the Federal Confidentiality of Alcohol and Drug Abuse Patient Records regulations: The Federal rules restrict any use of the information to criminally investigate or prosecute any alcohol or drug abuse patient.[facility] the event this information is protected by the Federal Confidentiality of Alcohol and Drug Abuse Patient Records regulations: The Federal rules restrict any use of the information to criminally investigate or prosecute any alcohol or drug abuse patient.[facility] the event this information is protected by the Federal Confidentiality of Alcohol and Drug Abuse Patient Records regulations: The Federal rules restrict any use of the information to criminally investigate or prosecute any alcohol or drug abuse patient.[facility] the event this information is protected by the Federal Confidentiality of Alcohol and Drug Abuse Patient Records regulations: The Federal rules restrict any use of the information to criminally investigate or prosecute any alcohol or drug abuse patient.[facility] Reason for Visit (unrecogniz ed section and content) Reason Comments Refill Request Reason Comments New Patient Congestive Heart Failure Hypertension Atrial Fibrillation Post-op Valve Replacement Specialty Diagnoses / Procedures Referred By Contac t Referred To Contact Cardiology Diagnoses Presence of xenogenic heart valve,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 Procedures [place] OFFICE/OP CONSLTJ NEW/EST PT MOD MDM 40 MINUTES [facility] [address] [place] [address] Lance Hobbs MD [address] [facility] [address] [place] [address] Referral ID Status Reason Start Date Expiration Date Visits Re quested Visits Authorized [id number] Closed 03/23/2023 09/19/2023 1 1 Reason Onset Date Comments Patient Education 04/30/2023 C Specialty Diagnoses / Procedures Referred By Contac t Referred To Contact Diagnoses 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) 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) [I50.810] Procedures Right heart cath Lance Hobbs MD [address] [facility] [address] [place] [address] [facility] [address] [place] [address] Referral ID Status Reason Start Date Expiration Date Visits Re quested Visits Authorized [id number] 1 1 Reason Onset Date Comments Med Management 05/25/2023 Reason Onset Date Comments Med Management 05/27/2023 Jardiance Counse ling Specialty Diagnoses / Procedures Referred By Contac t Referred To Contact Cardiology Diagnoses 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) Mitral valve stenosis and aortic valve stenosis Procedures Transesophageal echocardiogram (MING) with contrast and 3D PRN NJ ECHO TRANSESOPHAG R-T 2D W/PRB IMG ACQUISJ I&R NJ DOP ECHOCARD COLOR FLOW VELOCITY MAPPING NJ DOPPLER ECHOCARD PULSE WAVE W/SPECTRAL DISPLAY Lance Hobbs MD [address] [facility] [address] [place] [address] Referral ID Status Reason Start Date Expiration Date Visits Re quested Visits Authorized [id number] Closed 05/25/2023 05/24/2024 1 1 Reason Comments Cardiac Valve Problem Reason Comments Cardiac Valve Problem Specialty Diagnoses / Procedures Referred By Contac t Referred To Contact Radiology Diagnoses Perivalvular leak of prosthetic heart valve, initial encounter Nonrheumatic mitral valve disorder, unspecified Procedures CT heart structure morphology w IV contrast Gabi Leonardo, CONTINUOUS LINTER DRIER OPERATOR - FEATHERER [address] [facility] [address] [place] [address] Referral ID Status Reason Start Date Expiration Date Visits Re quested Visits Authorized [id number] Closed 06/09/2023 06/08/2024 1 1 Reason Comments Cardiac Valve Problem 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 Specialty Diagnoses / Procedures Referred By Contac t Referred To Contact Diagnoses Prosthetic cardiac paravalvular leak, initial encounter Prosthetic cardiac paravalvular leak, 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] Procedures paravalvular leak closure, mitral valve Shaw Nicholas MD [address] [place] [address] [address] [place] [address] Referral ID Status Reason Start Date Expiration Date Visits Re quested Visits Authorized [id number] 1 1 Reason Comments Hospital Follow-up S/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, hospital follow up Reason Onset Date Comments Procedure 05/27/2023 Reason Comments Cardiac Valve Problem Dyspnea Specialty Diagnoses / Procedures Referred By Contac t Referred To Contact Cardiology Diagnoses Severe mitral regurgitation Procedures Transthoracic echocardiogram (TTE) complete with contrast, bubble, strain, and 3D PRN NJ ECHO TTHRC R-T 2D W/WOM-MODE COMPL SPEC&COLR D NJ TTE W OR WO FOL WCON,DOPPLER Josephine Lees, CONTINUOUS LINTER DRIER OPERATOR - FEATHERER [address] [place] [address] Referral ID Status Reason Start Date Expiration Date Visits Re quested Visits Authorized [id number] Closed 08/05/2023 08/04/2024 1 1 Reason Comments Shortness of Breath Reason Comments Med Refill Reason Comments Follow-up Congestive Heart Failure Atrial Fibrillation Hypertension Specialty Diagnoses / Procedures Referred By Contac t Referred To Contact Diagnoses SDH (subdural hematoma) (HCC) sdh Procedures - Adrian Rothman MD [address] [place] [id number] [address] [place] [address] Referral ID Status Reason Start Date Expiration Date Visits Re quested Visits Authorized [id number] 1 1 Specialty Diagnoses / Procedures Referred By Contac t Referred To Contact Radiology Diagnoses SDH (subdural hematoma) (HCC) Procedures CT head wo IV contrast Olivia Del Castillo, CONTINUOUS LINTER DRIER OPERATOR - FEATHERER [address] [place] [address] Referral ID Status Reason Start Date Expiration Date Visits Re quested Visits Authorized [id number] Closed 01/06/2024 01/05/2025 1 1 Reason Comments Follow-up Hosp fu Reason Comments Hospital Follow-up Follow-up Reason Comments Follow-up Congestive Heart Failure Hypertension Atrial Fibrillation Reason Onset Date Comments Reschedule 02/26/2024 Reason Onset Date Comments Appointment Request 03/04/2024 6 week fu Reason Comments Follow-up 6 wk Reason Comments Follow-up pt Reason Onset Date Comments Reschedule 02/29/2024 Reason Comments CARD New Patient Consult RV lead extract ion vs lead revision Reason Comments Preparations For Procedures Reason Comments Wound Check Appointment Reason Comments Patient Update Reason Onset Date Comments Other 08/26/2024 Med cost Reason Onset Date Comments Cardiac Clearance 10/14/2024 Reason Comments Annual Exam Congestive Heart Failure Hypertension Cardiomyopathy Chronic Kidney Disease Hyperlipidemia Reason Onset Date Comments Jardiance [facility] 05/27/2023 Goals (unrecognized section and content) Goals may be documented in a n alternate sectionGoals may be documented in an alternate sectionGoals may be documented in an alternate sectionGoals may be documented in an alternate sectionGoals may be documented in an alternate sectionGoals may be documented in an alternate sectionGoals may be documented in an alternate sectionGoals may be documented in an alternate sectionGoals may be documented in an alternate sectionGoals may be documented in an alternate sectionGoals may be documented in an alternate sectionGoals may be documented in an alternate sectionGoals may be documented in an alternate sectionGoals may be documented in an alternate sectionGoals may be documented in an alternate sectionGoals may be documented in an alternate sectionGoals may be documented in an alternate sectionGoals may be documented in an alternate sectionGoals may be documented in an alternate sectionGoals may be documented in an alternate sectionGoals may be documented in an alternate sectionGoals may be documented in an alternate section No data available for this sectionGoals may be documented in an alternate sectionGoals may be documented in an alternate sectionGoals may be documented in an alternate sectionGoals may be documented in an alternate sectionGoals may be documented in an alternate sectionGoals may be documented in an alternate sectionGoals may be documented in an alternate sectionGoals may be documented in an alternate section Care Teams (unrecognized sec tion and content) Team Status: Active Member Role Status Dates Dr. Fracisco Carvalho MD Family Provider Active Dr. Fracisco Carvalho MD Primary Care Provider Active Team Status: Inactive Member Role Status Dates Dr. Fracisco Carvalho MD Primary Care Provider Active Dr. Mariajose Sanchez MD Attending Provider, Referring Pr ovider Active Team Status: Inactive Member Role Status Dates Dr. Fracisco Carvalho MD Primary Care Provider, Family Pr ovider Active Dr. Ben Dietz MD Attending Provider, Referring Provider Active Dr. Mariajose Sanchez MD Other Provider Active Team Status: Inactive Member Role Status Dates Dr. Fracisco Carvalho MD Primary Care Provi patti, Attending Provider, Referring Provider Active Team Status: Inactive Member Role Status Dates Dr. Fracisco Carvalho MD Primary Care Provider Active Estefania Sandhu Active Dr. Ben Dietz MD Attending Provider, Referring Provider Active Team Status: Inactive Member Role Status Dates Dr. Fracisco Carvalho MD Primary Care Provider, Referring Provider Active Tacos Gibson [employer], [employer]-C Attending Provider Active Team Status: Inactive Member Role Status Dates Dr. Fracisco Carvalho MD Primary Care Provider, Attending Provider Active Team Status: Inactive Member Role Status Dates Dr. Fracisco Carvalho MD Primary Care Provider, Family Pr ovider Active Tacos Gibson [employer], [employer]-C Attending Provider, Referring Pro vider Active Team Status: Inactive Member Role Status Dates Dr. Fracisco Carvalho MD Primary Care Provider Active Estefania Sandhu Active Dr. Matt Royal MD Attending Provider, Referring Pro vider Active Team Status: Active Member Role Status Dates Dr. Fracisco Carvalho MD Primary Care Provider, Attending Provider Active Team Status: Active Member Role Status Dates Dr. Fracisco Carvalho MD Primary Care Provider Active Dr. Jean Pierre Paniagua MD Attending Provider Active Team Status: Active Member Role Status Dates Dr. Fracisco Carvalho MD Primary Care Provider Active Tacos Gibson [employer], [employer]-C Attending Provider Active Team Status: Active Member Role Status Dates Dr. Fracisco Carvalho MD Primary Care Provider, Family Pr ovider Active Tacos Gibson [employer], [employer]-C Attending Provider, Referring Pro vider Active Team Status: Active Member Role Status Dates Dr. Fracisco Carvalho MD Primary Care Provider Active Tacos Gibson [employer], [employer]-C Attending Provider, Referring Pro vider Active Team Status: Inactive Member Role Status Dates Dr. Fracisco Carvalho MD Primary Care Provider Active Tacos Gibson [employer], [employer]-C Attending Provider, Referring Pro vider Active Team Status: Active Member Role Status Dates Dr. Fracisco Carvalho MD Primary Care Provider Active Dr. Jean Pierre Paniagua MD Attending Provider, Referring Pr ovider Active Team Status: Inactive Member Role Status Dates Dr. Fracisco Carvalho MD Primary Care Provider Active Dr. Naveen Nicole DO Emergency Provider Active Animal Rehabilitator Relationship Specialty Start Date End Date Arthur Carvalho MD [address] [place] [address] PCP - General 11/19/17 Team Status: Inactive Member Role Status Dates Dr. Fracisco Carvalho MD Primary Care Provider Active Dr. Naveen Nicole DO Attending Provider, Emergency P rovider Active Animal Rehabilitator Relationship Specialty Start Date End Date Arthur Carvalho MD [address] [place] [address] PCP - General 11/19/17 Animal Rehabilitator Relationship Specialty Start Date End Date Arthur Carvalho MD [address] [place] [address] PCP - General 11/19/17 Animal Rehabilitator Relationship Specialty Start Date End Date Arthur Carvalho MD [address] [place] [address] PCP - General 11/19/17 Animal Rehabilitator Relationship Specialty Start Date End Date Arthur Carvalho MD [address] [place] [address] PCP - General 11/19/17 Animal Rehabilitator Relationship Specialty Start Date End Date Arthur Carvalho MD [address] [place] [address] PCP - General 11/19/17 Animal Rehabilitator Relationship Specialty Start Date End Date Arthur Carvalho MD [address] [place] [address] PCP - General 11/19/17 Animal Rehabilitator Relationship Specialty Start Date End Date Arthur Carvalho MD [address] [place] [address] PCP - General 11/19/17 Animal Rehabilitator Relationship Specialty Start Date End Date Arthur Carvalho MD [address] [place] [address] PCP - General 11/19/17 Animal Rehabilitator Relationship Specialty Start Date End Date Arthur Carvalho MD [address] [place] [address] PCP - General 11/19/17 Animal Rehabilitator Relationship Specialty Start Date End Date Arthur Carvalho MD [address] [place], [place] [phone] PCP - General 11/19/17 Animal Rehabilitator Relationship Specialty Start Date End Date Arthur Carvalho MD [address] [place], [place] [phone] PCP - General 11/19/17 Team Status: Inactive Member Role Status Dates Dr. Fracisco Carvalho MD Primary Care Provider, Family Pr ovider Active Tacos Gibson [employer], [employer]-C Attending Provider, Referring Pro vider Active JADE DOYLE Other Provider Active YOEL WALTERS Other Provider Active Animal Rehabilitator Relationship Specialty Start Date End Date Arthur Carvalho MD [address] [place] [address] PCP - General 11/19/17 Team Status: Inactive Member Role Status Dates Dr. Fracisco Carvalho MD Primary Care Provider, Family Pr ovider Active Tacos Gibson [employer], [employer]-C Attending Provider, Referring Pro vider Active JADE DOYLE Other Provider Active YOEL WALTERS Other Provider Active Dr. Kel Irby MD Other Provider Active Animal Rehabilitator Relationship Specialty Start Date End Date Arthur Carvalho MD [address] [place], [place] [phone] PCP - General 11/19/17 Animal Rehabilitator Relationship Specialty Start Date End Date Arthur Carvalho MD [address] [place], [place] [phone] PCP - General 11/19/17 Animal Rehabilitator Relationship Specialty Start Date End Date Arthur Carvalho MD [address] [place], [place] [phone] PCP - General 11/19/17 Animal Rehabilitator Relationship Specialty Start Date End Date Arthur Carvalho MD [address] [place] [address] PCP - General 11/19/17 Animal Rehabilitator Relationship Specialty Start Date End Date Arthur Carvalho MD [address] [place] [address] PCP - General 11/19/17 Animal Rehabilitator Relationship Specialty Start Date End Date Arthur Carvalho MD [address] [place] [address] PCP - General 11/19/17 Animal Rehabilitator Relationship Specialty Start Date End Date Arthur Carvalho MD [address] [place] [address] PCP - General 11/19/17 Team Status: Active Member Role Status Dates Dr. Fracisco Carvalho MD Primary Care Provider, Family Pr ovider Active Tacos Gibson [employer], [employer] Attending Provider, Referring Pro vider Active JADE DOYLE Other Provider Active YOEL WALTERS Other Provider Active Dr. Kel Irby MD Other Provider Active Animal Rehabilitator Relationship Specialty Start Date End Date Arthur Carvalho MD [address] [place] [address] PCP - General 11/19/17 Team Status: Inactive Member Role Status Dates Dr. Fracisco Carvalho MD Primary Care Provider, Referring Provider Active Evangelina Marina [employer], [employer]-C Attending Provider Active Animal Rehabilitator Relationship Specialty Start Date End Date Arthur Carvalho MD [address] [place] [address] PCP - General 11/19/17 Animal Rehabilitator Relationship Specialty Start Date End Date Arthur Carvalho MD [address] [place] [address] PCP - General 11/19/17 Animal Rehabilitator Relationship Specialty Start Date End Date Arthur Carvalho MD [address] [place] [address] PCP - General 11/19/17 Animal Rehabilitator Relationship Specialty Start Date End Date Arthur Carvalho MD [address] [place] [address] PCP - General 11/19/17 Team Status: Inactive Member Role Status Dates Dr. Fracisco Carvalho MD Primary Care Provider Active Dr. Jesús Perez , DO Emergency Provider Active Animal Rehabilitator Relationship Specialty Start Date End Date Arthur Carvalho MD [address] [place] [address] PCP - General 11/19/17 Animal Rehabilitator Relationship Specialty Start Date End Date Arthur Carvalho MD [address] [place] [address] PCP - General 11/19/17 Animal Rehabilitator Relationship Specialty Start Date End Date Arthur Carvalho MD [address] [place] [address] PCP - General 11/19/17 Animal Rehabilitator Relationship Specialty Start Date End Date Arthur Carvalho MD [address] [place] [address] PCP - General 11/19/17 Animal Rehabilitator Relationship Specialty Start Date End Date Arthur Carvalho MD [address] [place] [address] PCP - General 11/19/17 Animal Rehabilitator Relationship Specialty Start Date End Date Arthur Carvalho MD [address] [place] [address] PCP - General 11/19/17 Animal Rehabilitator Relationship Specialty Start Date End Date Arthur Carvalho MD [address] [place] [address] PCP - General 11/19/17 Animal Rehabilitator Relationship Specialty Start Date End Date Arthur Carvalho MD [address] [place] [address] PCP - General 11/19/17 Animal Rehabilitator Relationship Specialty Start Date End Date Fracisco Carvalho Chi PCP - General Gerontology 09/07/15 Animal Rehabilitator Relationship Specialty Start Date End Date Fracisco Carvalho Chi PCP - General Gerontology 09/07/15 Animal Rehabilitator Relationship Specialty Start Date End Date Fracisco Carvalho Chi PCP - General Gerontology 09/07/15 Animal Rehabilitator Relationship Specialty Start Date End Date Fracisco Carvalho Chi PCP - General Gerontology 09/07/15 Animal Rehabilitator Relationship Specialty Start Date End Date Fracisco Carvalho Chi PCP - General Gerontology 09/07/15 Animal Rehabilitator Relationship Specialty Start Date End Date Fracisco Carvalho Chi PCP - General Gerontology 09/07/15 Team Status: Inactive Member Role Status Dates Dr. Fracisco Carvalho MD Primary Care Provider Active Start: July 13, 2024 End: July 13, 2024 Dr. Matt Royal MD Attending Provider Active S tart: July 13, 2024 End: July 13, 2024 Dr. Matt Royal MD Referring Provider Active S tart: July 13, 2024 End: July 13, 2024 Team Status: Inactive Member Role Status Dates Dr. Fracisco Carvalho MD Primary Care Provider Active Start: July 13, 2024 End: July 13, 2024 Dr. Matt Royal MD Attending Provider Active S tart: July 13, 2024 End: July 13, 2024 Team Status: Inactive Member Role Status Dates Dr. Fracisco Carvalho MD Primary Care Provider Active Start: August 17, 2024 End: August 17, 2024 Dr. Matt Royal MD Attending Provider Active S tart: August 17, 2024 End: August 17, 2024 Team Status: Inactive Member Role Status Dates Dr. Fracisco Carvalho MD Primary Care Provider Active Start: August 17, 2024 End: August 17, 2024 Dr. Matt Royal MD Attending Provider Active S tart: August 17, 2024 End: August 17, 2024 Dr. Matt Royal MD Referring Provider Active S tart: August 17, 2024 End: August 17, 2024 Team Status: Inactive Member Role Status Dates Dr. Fracisco Carvalho MD Primary Care Provider Active Start: September 02, 2024 End: September 02, 2024 Dr. Fracisco Carvalho MD Attending Provider Active Start: September 02, 2024 End: September 02, 2024 Dr. Fracisco Carvalho MD Referring Provider Active Start: September 02, 2024 End: September 02, 2024 Animal Rehabilitator Relationship Specialty Start Date End Date Arthur Carvalho MD [address] [place] [address] PCP - General 11/19/17 Team Status: Active Member Role/Relationship Status Dates Dr. Fracisco Carvalho MD Family Provider Active Dr. Fracisco Carvalho MD Primary Care Provider Active Team Status: Inactive Member Role/Relationship Status Dates Dr. Fracisco Carvalho MD Primary Care Provider Active Start: September 02, 2024 End: September 02, 2024 Dr. Fracisco Carvalho MD Attending Provider Active Start: September 02, 2024 End: September 02, 2024 Dr. Fracisco Carvalho MD Referring Provider Active Start: September 02, 2024 End: September 02, 2024 Team Status: Active Member Role/Relationship Status Dates Dr. Fracisco Carvalho MD Primary Care Provider Active Start: December 29, 2024 Dr. Fracisco Carvalho MD Referring Provider Active Start: December 29, 2024 Estefania Sandhu Attending Provider Active Start: A 2024 Team Status: Inactive Member Role/Relationship Status Dates Dr. Fracisco Carvalho MD Primary Care Provider Active Start: December 29, 2024 End: December 29, 2024 Dr. Fracisco Carvalho MD Referring Provider Active Start: December 29, 2024 End: December 29, 2024 Estefania Sandhu Attending Provider Active Start: A ugust 2024 End: December 29, 2024 Team Status: Inactive Member Role/Relationship Status Dates Dr. Fracisco Carvalho MD Primary Care Provider Active Start: December 29, 2024 End: December 29, 2024 Dr. Fracisco Carvalho MD Referring Provider Active Start: December 29, 2024 End: December 29, 2024 Estefania Sandhu Attending Provider Active Start: A ugust 2024 End: December 29, 2024 Team Status: Inactive Member Role/Relationship Status Dates Dr. Fracisco Carvalho MD Primary Care Provider Active Start: December 29, 2024 End: December 29, 2024 Dr. Matt Royal MD Attending Provider Active S tart: December 29, 2024 End: December 29, 2024 Animal Rehabilitator Relationship Specialty Start Date End Date Arthur Carvalho MD [address] [place] [address] PCP - General 11/19/17 Animal Rehabilitator Relationship Specialty Start Date End Date Arthur Carvalho MD [address] [place] [address] PCP - General 11/19/17 PRN Active and Recently Administ [...] or split. 2212 (Given - Provider: Gemini Shah, CHAZ) 2300 (Due - Provider: Gemini Shah RN) [...] Prophylaxis 08 (Given - Provider: Austen Arauz, CONTINUOUS LINTER DRIER OPERATOR - SALICYLIC ACID BLENDER) dapagliflozin (Farxiga) tablet 10 mg 10 mg, Oral, Daily, First dose on Thu07/30/23 at 0900 0835 (Given - Provid er: Chuck Oliva RN) furosemide (Lasix) tablet 40 mg 40 mg, Oral, Daily, First dose on Thu07/30/23 at 0900 0835 (Given - Provid er: Chuck Oliva RN) levothyroxine (Synthroid, Levoxyl) tablet 100 mcg 100 mcg, Oral, Daily before breakfast, First dose on Thu07/30/23 at 0700, Tube feeding (TF) interaction, obtain [...] split. 1444 (Given - Provider: Nima Hong RN) [...] if patient does not have iv access. 0626 (New Bag - Provider: Loyda Hanley RN) [...] at 0808, Intraprocedure 0808 (Given - Provider: Shaw Nicholas MD) HYDROcodone-acetaminophen ([place]) 5-325 MG per tablet 1 tablet 1 tablet, Oral, Every 6 hours PRN, moderate pain (4-6), Starting on Thu07/29/23 at 1241, Maximum dose of acetaminophen is 4000 mg from all sources in 24 hours. 1331 (Given - Provider: Nima Hong, RN)1949 (Given - Provider: Gemini Shah, RN) 0204 (Given - Provider: Gemini Shah, RN)0823 (Given - Provider: Rachel Herndon RN) naloxone (Narcan) injection 0.4 mg 0.4 mg, IntraVENous, Every 5 min PRN, opioid reversal, respiratory depression, Starting on Thu07/29/23 at 1243, +++ For RR <10, pinpoint pupils, over sedation for opioid reversal - MUST notify regional sales associate provider immediately after first dose, may give [...] of order. 0738 (New Bag - Provider: Austen Arauz APRN - SALICYLIC ACID BLENDER)1153 (Anesthesia Volume Adjustment - Provider: Austen Arauz APRN - JENS) tiZANidine (Zanaflex) tablet 4 mg 4 mg, [...] 24 hours. 0006 (Given - Provider: Chrissy Harris, RN)0623 (Given - Provider: Chrissy Harris RN)1202 (Given - Provider: Cynthia Encinas, RN)1839 (Given - Provider: Cynthia Encinas, CHAZ) 0023 (Given - Provider: Katlyn Jang RN)0818 (Given - Provider: Melba José, CHAZ)1346 (Given - Provider: Tatianna Chappell, RN)1738 (Given - Provider: Tatianna Chappell, RN)2335 (Given - Provider: Talya Thapa, RN) 0507 (Given - Provider: Talya Thapa, RN) acetaminophen (Tylenol) tablet 650 mg 650 [...] 2100 (Given - Provider: Katlyn Jang, CHAZ) 2016 (Given - Provider: Talya Thapa, CHAZ) buPROPion SR (Wellbutrin SR) 12 hr tablet 150 mg (CANCELED) 150 mg, Oral, 2 times daily, First dose on Thu01/01/24 at 2100, Do not crush, chew, or split. 0820 (Given - Provider: Cynthia Encinas RN) citalopram (CeleXA) tablet 20 mg 20 mg, Oral, Daily, First dose on Thu01/01/24 at 1800 0820 (Given - Provider: Cynthia Encinas, CHAZ) 0820 (Given - Provider: Melba José, CHAZ) 0839 (Given - Provider: Lara Tovar RN) dapagliflozin (Farxiga) tablet 10 mg 10 mg, Oral, Daily, First dose on Thu01/04/24 at 1145, Indications: Heart Failure 0823 (Given - Provider: Cynthia Encinas RN) 0820 (Given - Provider: Melba José RN) 0839 (Given - Provider: Lara Tovar, CHAZ) docusate sodium (Colace) capsule 100 mg 100 mg, Oral, 2 times daily, First dose on Thu01/04/24 at 0900 0820 (Given - Provider: Cynthia Encinas RN)2100 (Given - Provider: Katlyn Jang RN) 08 (Given - Provider: Melba José, CHAZ)2015 (Given - Provider: Talya Thapa, CHAZ) 0839 (Not Given - Provider: Lara Tovar RN - Reason: Patient/family refused) doxepin (SINEquan) capsule 150 mg 150 mg, Oral, Nightly, First dose on Thu01/01/24 at 2100 2100 (Given - Provider: Katlyn Jang RN) 233 (Given - Provider: Talya Thapa, CHAZ) enoxaparin (Lovenox) syringe 30 mg (COMPLETED) 30 mg, SubCUTAneous, Every 12 hours, First dose on Thu01/04/24 at 0900, For 4 doses, Indication of Use: Prophylaxis-DVT/PE, Indications: Prophylaxis of Venous Thromboembolism 08 (Given - Provider: Cynthia Encinas RN)2100 (Given - Provider: Katlyn Jang RN) levothyroxine (Synthroid, Levoxyl) tablet 100 mcg 100 mcg, Oral, Daily before breakfast, First dose on Thu01/02/24 at 0600, Tube feeding (TF) interaction, obtain physician order to manage, recommend holding TF for 30 minutes before and after dose. 0623 (Given - Provider: Chrissy Harris RN) 0558 (Given - Provider: Katlyn Jang RN) 0507 (Given - Provider: Talya Thapa, CHAZ) metoprolol succinate XL (Toprol-XL) 24 hr tablet 50 mg 50 mg, Oral, Daily, First dose on Thu01/02/24 at 0900, Do not crush or chew. 0822 (Given - Provider: Cynthia Encinas RN) 08 (Given - Provider: Melba José RN) 0839 (Given - Provider: Lara Tovar RN) mupirocin (Bactroban) 2 % ointment 1 Application (CANCELED) 1 Application, Nasal, 2 times daily, First dose on Thu01/01/24 at 2100, For 5 days, Indications: MRSA Nasal Decolonization 08 (Given - Provider: Cynthia Encinas, RN)2100 (Given - Provider: Katlyn Jang RN) sennosides (Senokot) tablet 8.6 mg 8.6 mg (1 tablet), Oral, Nightly, First dose on Thu01/04/24 at 2100 2100 (Given - Provider: Katlyn Jang, RN) 2015 (Given - Provider: Talya Thapa, CHAZ) spironolactone (Aldactone) tablet 25 mg 25 mg, Oral, Daily, First dose on Thu01/04/24 at 1145 0820 (Given - Provider: Cynthia Encinas, RN) 0819 [...] 2100 (Given - Provider: Katlyn Jang RN) 2014 (Given - Provider: Talya Thapa, CHAZ) Continuous Medication Order 01/05/2024 01/06/2024 01/07/2024 sodium chloride 0.9 % infusion 75 mL/hr, IntraVENous, Continuous, Starting on Thu01/06/24 at 0000 0024 (New Bag - Provider: Katlyn Jang, RN)1454 (New Bag - Provider: Tatianna Chappell, CHAZ) 1215 (Stopped - Provider: Lara Tovar RN - Comment: pt discharged home) PRN Medication Order 01/05/2024 01/06/2024 01/07/2024 albuterol 108 (90 Base) MCG/ACT inhaler 2 puff 2 puff, Inhalation, Every 4 hours PRN, wheezing, Starting on Thu01/01/24 at 1758 butalbital-acetaminophen -caffeine 50-325-40 MG per tablet 1 tablet 1 tablet, Oral, Every 4 hours PRN, headaches, Starting on Thu01/07/24 at 0949 1114 (Given - Provider: Lara Tovar RN) dextrose 5 % infusion 100 mL/hr, IntraVENous, [...] specifically ordered. 1211 (Given - Provider: Cynthia Encinas, RN)1726 (Given - Provider: Cynthia Encinas, RN)2101 (Given - Provider: Katlyn Jang, RN) 0150 (Given - Provider: Katlyn Jang RN)0817 (Given - Provider: Melba José, RN)1346 (Given - Provider: Tatianna Chappell, CHAZ)1738 [...] hour of each other unless specifically ordered. 2132 (Given - Provider: Talya Thapa RN)2340 (Given - Provider: Talya Thapa, RN) 0507 (Given - Provider: Talya Thapa, CHAZ) iopamidol (Isovue-300) 61 % injection 110 mL [...] sedation for opioid reversal - MUST notify regional sales associate provider immediately after first dose, may give [...] pain (7-10), Starting on 01/02/24 at 0916 0006 (Given - Provider: Chrissy Harris RN)0623 (Given - Provider: Chrissy Harris RN)1022 (Given - Provider: Cynthia Encinas RN)1618 (Given - Provider: Cynthia Encinas RN) 0022 (Given - Provider: Katlyn Jang, RN)0558 (Given - Provider: Katlyn Jang, RN)1558 (Given - Provider: Tatianna Chappell RN)2016 (Given - Provider: Talya Thapa, CHAZ) 0200 (Given - Provider: Talya Thapa, RN)0737 (Given - Provider: Lara Tovar, CHAZ) oxyCODONE (Roxicodone) immediate release tablet 5 mg(Linked Group 2) 5 mg, Oral, Every 4 hours PRN, moderate pain (4-6), Starting on 01/02/24 at 0916 0006 (See Alternative - Provider: Chrissy Harris RN)0623 (See Alternative - Provider: Chrissy Harris RN)1022 (See Alternative - Provider: Cynthia Encinas RN)1618 (See Alternative - Provider: Cynthia Encinas, CHAZ) 0022 (See Alternative - Provider: Katlyn Jang, RN)0558 (See Alternative - Provider: Katlyn Jang, RN)1558 (See Alternative - Provider: Tatianna Chappell, CHAZ)2016 (See Alternative - Provider: Talya Thapa, RN) 0200 (See Alternative - Provider: Talya Thapa, RN)0737 (See Alternative - Provider: Lara Tovar, [...] pain (4-6), Starting on Thu01/02/24 at 0916 Or oxyCODONE (Roxicodone) immediate release [...] BE BASED ON THE PRIMARY CLINICAL RECORDS. [employer] [facility]. provides no warranty or guarantee of the accuracy or completeness of information in this document.
== END | disposition home or self-care (01) ==
LOC: CT 07:52
PROVIDERS: PCP Family Medicine Geriatric Medicine; Referring Provider Family Medicine Geriatric Medicine; Visit Provider Family Medicine Geriatric Medicine
DX: Z12.2 Encounter for screening for malignant neoplasm of respiratory organs (principal); F17.210 Nicotine dependence, cigarettes, uncomplicated
CPT/HCPCS: 71271